=== PATIENT | male | born 1945 | race Caucasian/White ===

== ENCOUNTER 2022-12-26 10:58 | Outpatient (OUT) | payer MEDICARE, SELFPAY ==
--- NOTE | 2022-12-26 11:33 | P.CN_ITS ---
Consult Note: HPI Data of Consult Patient: known to practice within the last 3 years Consult date: 12/26/22 Requesting Physician: MANAV GARY NP Primary Care Provider: GARY CUENCA Consult Narrative Reason for consult: left hip Narrative: Here for f/u left hip injection done 12/16/22. He had 90% relief of pain and increased fx continued through today. No new sensorimotor or bowel or bladder sx. Medication regimen is assisting him to be able to complete his ADLs. We discussed ability to repeat procedure as needed. Lumbar pain is doing stable. He is getting ABIs done through PCP coming up to check leg circulation. No medication issues. He does walk with cane and feels that he is walking better. cc:: CC: MANAV GARY NP Review of Systems ROS Status of ROS 10 or more systems reviewed and unremarkable except as noted in history and below Musculoskeletal Reports: back pain and extremity pain Exam Constitutional Documenting provider has reviewed patient's vital signs: yes Common normals: no apparent distress, average body habitus, oriented x3, healthy appearing, alert and well nourished General appearance: cooperative, comfortable and well developed Orientation/consciousness: Yes awake, Yes oriented to person, Yes oriented to place and Yes oriented to time HENMT Common normals: normocephalic, nasal mucous membranes and turbinates normal and moist oral mucous membranes Respiratory Common normals: normal respiratory effort, no retractions and no use of acc essory muscles Effort & inspection: able to speak in complete sentences and symmetric chest movement Back & Pelvis Lumbar spine/lower back: normal to inspection, ROM limited, paraspinal muscle tenderness, paraspinal muscle spasm and straight leg raise negative bilaterally Extremity Common normals: normal capillary refill and no pedal edema Left lower extremity: hip joint Other: pain with hip ROM and walking. sensation intact bilat LE Assessment and Plan Assessment and Plan (1) Knee osteoarthritis: (2) Muscle spasm: (3) Lumbar spondylosis: (4) Osteoarthritis, hip, bilateral: Plan baclofen refill f/u in 6 months or sooner if needed.
== END 2022-12-26 10:59 ==
PROVIDERS: PCP Internal Medicine; Visit Provider Nurse Practitioner
DX: M47.816 Spondylosis without myelopathy or radiculopathy, lumbar region (principal); M62.830 Muscle spasm of back; M17.9 Osteoarthritis of knee, unspecified; M16.0 Bilateral primary osteoarthritis of hip
CPT/HCPCS: G0463

== ENCOUNTER 2023-01-13 12:25 | Outpatient (OUT) | payer MEDICARE, SELFPAY ==
--- NOTE | 2023-01-13 13:00 | CA_ITS ---
The [facility] Test Date: 2023-01-13 Pat Name: Rufus Yee Department: Room: - Gender: Male Insurance Verification Rep: : 1945 Requested By: PAGE Order Number: [id number] Reading MD: GARY CUENCA Interpretive Statements Monophasic doppler waveforms of the RLE PVR waveforms with delayed upstroke, blunted amplitude and loss of dicrotic notch of the RLE Right: - significant pressure gradient between the thigh and calf cuff - abnormal JAMIR - normal TBI Left: - no significant pressure gradients between cuffs - normal JAMIR - normal TBI IMpression: - elevated indices (B/L thigh) consistent with calcified, noncompressible arterial molina, which may underestimate the degree of arterial disease present - significant right femoropopliteal arterial disease with moderate-severe hemodynamic impairment of the right lower extremity at rest (JAMIR 0.55) - normal arterial evaluation of the left lower extremity without hemodynamic impairment of the left lower extremity at rest (JAMIR 1.12) Electronically Signed On 01-14-2023 7:13:14 EDT by GARY CUENCA
== END 2023-01-13 12:26 | disposition home or self-care (01) ==
LOC: CARD 12:26
PROVIDERS: PCP Internal Medicine
DX: I73.9 Peripheral vascular disease, unspecified (principal)
CPT/HCPCS: 93923

== ENCOUNTER 2023-01-15 11:20 | Outpatient (OUT) | payer MEDICARE, SELFPAY ==
[2023-01-15 13:28] LABS: Estimated Average Glucose 177 mg/dL; Glycohemoglobin A1C 7.8 % (4.5-6.2)
== END 2023-01-15 11:21 | disposition home or self-care (01) ==
LOC: LAB 11:23
PROVIDERS: PCP Internal Medicine; Visit Provider Internal Medicine
DX: E11.65 Type 2 diabetes mellitus with hyperglycemia (principal)
CPT/HCPCS: 36415; 83036

== ENCOUNTER 2023-05-03 15:39 | Emergency (ER) | payer MEDICARE, SELFPAY ==
[2023-05-03] VITALS (15 sets, daily range): BP systolic 148–201; BP diastolic 77–93; PULSE 56–68; RESP 17–22; TEMP 36.6; O2SAT 98; BMI 39.2
[2023-05-03 15:52] LABS: Glucometer 204 mg/dL (74-106)
--- NOTE | 2023-05-03 16:03 | PC.NURSE ---
pt presents to ED because patient states last night he started having n/v and his neck felt stiff. patient states whenever he moves his head from left to right he feels nauseas. patient states today he has thrown up 4 times. no associated abdominal pain. pt concerned because he is a type 2 diabetic and hasn't eaten anything today. bs- 204 on arrival. patient states bowel movements are normal for patient. patient states he was at a yesterday and did eat a lot of bad foods and unsure if it is related.
--- NOTE | 2023-05-03 16:07 | CT_ITS ---
The [address] [address] Patient Name: LIZZY BURK MRN: [id number] date: 1945 Sex: M Assigned Patient Location: ER Current Patient Location: [facility] Accession/Order Number: [id number] Exam Date: 05/03/2023 16:15 Report Date: 05/05/2023 10:50 At the request of: PEARL MCDONALD Procedure: CT head/brain wo con EXAMINATION: CT head/brain wo con HISTORY: dizziness COMPARISON: None. TECHNIQUE: Unenhanced helical imaging was acquired from skull base to vertex. Multiplanar images are submitted. Dose reduction techniques were achieved by using: automated exposure control and/or adjustment of mA and /or kV according to patient size and/or use of iterative reconstruction technique. FINDINGS: There is no acute intraaxial or extraaxial mass, shift, or bleed. Bravo-white junctions are well defined. The ventricles and sulci are age-appropriate. The pituitary and sella turcica are normal. The orbit and ocular contents are normal. The paranasal sinuses are clear. Calvarium is intact. CT/CT head/brain wo con IMPRESSION: 1. No acute intracranial event. 2. Prominent impacted cerumen within the bilateral auditory canals (left greater than right). Correlation with otoscopic exam will be of benefit. Otherwise, clear sinuses. Electronically authenticated by: TIFFANY MCADAMS Date: 05/05/2023 10:50
--- NOTE | 2023-05-03 16:08 | ECG_ITS ---
The [facility] Test Date: 2023-05-03 Pat Name: LIZZY BURK Department: Room: - Gender: Male Veneer Sorter: : 1945 Requested By: GARY CUENCA Order Number: [id number] Reading MD: GARY CUENCA Measurements Intervals [place] Rate: 62 P: -30 NH: 138 QRS: 18 QRSD: 80 T: 21 QT: 398 QTc: 403 Interpretive Statements 1100 Sinus rhythm 1570 with occasional ventricular premature complexes 4068 Nonspecific Twave abnormality 8102 Low QRS voltage in chest leads 9140 abnormal rhythm ECG No previous ECG available for comparison Electronically Signed On 05-04-2023 7:01:18 EDT by GARY CUENCA
--- NOTE | 2023-05-03 16:10 | ED.GENADUL1 ---
HPI - General Adult General Chief complaint: Nausea/Vomiting/Diarrhea Stated complaint: FLU LIKE SYMPTOMS Time Seen by Provider: 05/03/23 16:04 Source: patient Mode of arrival: walk-in Limitations: no limitations History of Present Illness HPI narrative: 77-year-old male presents with chief complaint nausea vomiting dizziness. He states his symptoms began last evening. He felt better today and try to take medications and became nauseous and vomited. He does have a history of vertigo. He hasn't had no chest pain or headache. He states he is unable to take his morning medications causing his sugar to be elevated as well as his blood pressure. Patient is alert and oriented ?3. He shows no signs of neurological deficits. He has no focal weakness. Related Data Home Medications Medication Instructions Recorded Confirmed aspirin 81 mg tablet,delayed 81 mg PO DAILY 12/26/22 05/03/23 release (Adult Aspirin Regimen) atorvastatin 80 mg tablet 80 mg PO DAILY 12/26/22 05/03/23 baclofen 10 mg tablet 10 mg PO .HS 12/26/22 05/03/23 calcium carbonate 500 mg-vitamin 1 tab PO DAILY 12/26/22 05/03/23 D3 10 mcg (400 unit) tablet carvedilol 25 mg tablet 12.5 mg PO Q12H 12/26/22 05/03/23 cholecalciferol (vitamin D3) 50 2,000 unit PO DAILY 12/26/22 05/03/23 mcg (2,000 unit) tablet cinnamon bark 500 mg capsule 1,000 mg PO DAILY 12/26/22 05/03/23 (Cinnamon) clopidogrel 75 mg tablet 75 mg PO DAILY 12/26/22 05/03/23 famotidine 20 mg tablet 20 mg PO DAILY 12/26/22 12/26/22 glipizide 5 mg tablet 5 mg PO DAILY 12/26/22 05/03/23 hydrochlorothiazide 25 mg tablet 25 mg PO DAILY 12/26/22 05/03/23 lisinopril 20 mg tablet 10 mg PO DAILY 12/26/22 05/03/23 loratadine 10 mg tablet 10 mg PO DAILY 12/26/22 05/03/23 metformin 1,000 mg tablet 1,000 mg PO BID 12/26/22 05/03/23 metoprolol tartrate 25 mg tablet 25 mg PO BID 12/26/22 12/26/22 multivitamin 1 tab PO DAILY 12/26/22 05/03/23 omega-3 fatty acids 1,000 mg 1,000 mg PO DAILY 12/26/22 05/03/23 capsule pantoprazole 40 mg tablet,delayed 40 mg PO QAM 12/26/22 05/03/23 release sertraline 100 mg tablet 100 mg PO .HS 12/26/22 05/03/23 vitamin B complex 1 tab PO DAILY 12/26/22 12/26/22 zinc acetate 50 mg (zinc) capsule 50 mg PO DAILY 12/26/22 05/03/23 Previous Rx's Medication Instructions Recorded meclizine 50 mg tablet (Antivert) 50 mg PO BID PRN dizziness #10 tabs 05/03/23 ondansetron 4 mg disintegrating 4 mg PO Q8H PRN nausea and 05/03/23 tablet vomiting 4 days #10 tabs Allergies Allergy/AdvReac Type Severity Reaction Status Date / Time No Known Drug Allergies Allergy Verified 12/26/22 13:53 Review of Systems ROS Narrative All Systems are negative except as noted/marked.All systems reviewed and otherwise negative Exam Narrative Exam Narrative: Nurses note and vital signs reviewed and patient is not hypoxic. General: The patient appears well and in no apparent distress. Patient is resting comfortably on cart. Skin: Warm, dry, no pallor noted. There is no rash noted. Head: Normocephalic, atraumatic Eye: Normal conjunctiva, no drainage, EOMI. PERRL, no nystagmus Ears, Nose, Mouth, and Throat: oral mucosa is moist. Nares patent. Mouth without vesicles. bilateral canals noted to have cerumen Cardiovascular: Regular Rate and Rhythm Respiratory: Patient is in no distress, no accessory muscle use, lungs are clear to auscultation, no wheezing, rales or rhonchi Back: non-tender, no CVA tenderness bilaterally to percussion. GI: Normal bowel sounds, no tenderness to palpation, no masses appreciated. No rebound, guarding, or rigidity noted. Musculoskeletal: The patient has no evidence of calf tenderness, no pitting edema, symmetrical pulses noted bilaterally Neurological: A&O x3, normal speech,NIH O Psychiatric: Cooperative Constitutional Vital Signs, click to edit/add: Last Vital Signs Temp 97.8 F 05/03/23 15:42 Pulse 60 05/03/23 16:40 Resp 17 05/03/23 16:40 BP 184/78 H 05/03/23 17:11 Pulse Ox 98 05/03/23 15:42 O2 Del Method Room Air 05/03/23 15:42 Neuro Common normals: oriented x3 Coordination/balance: [id number] test normal and ysmd-ce-ddep test normal Speech: speech normal Gait (neuro): normal gait Motor exam: strength 5/5 throughout Coordination: [id number]-kw-ktdm test normal Course Vital Signs Vital signs: Vital Signs Temperature 97.8 F 05/03/23 15:42 Pulse Rate 63 05/03/23 15:42 Respiratory Rate 22 05/03/23 15:42 Blood Pressure 179/79 H 05/03/23 15:42 Pulse Oximetry 98 05/03/23 15:42 Oxygen Delivery Method Room Air 05/03/23 15:42 Temperature 97.8 F 05/03/23 15:42 Pulse Rate 60 05/03/23 16:40 Respiratory Rate 17 05/03/23 16:40 Blood Pressure 184/78 H 05/03/23 17:11 Pulse Oximetry 98 05/03/23 15:42 Oxygen Delivery Method Room Air 05/03/23 15:42 Medical Decision Making MDM Narrative Medical decision making narrative: Patient presented here with a chief complaint of nausea vomiting and dizziness. Symptoms began late last evening. He states that continue today when he tried to get up morning and take pills. States he unable to take his morning medication due to vomiting and dizziness. Arrival vital signs are stable patient had no acute neurological deficits. No nystagmus. Head CT read negative by radiology. She does have a history of vertigo. Patient was medicated here in emergency room liter fluids Zofran and Benadryl. Symptoms have improved. He does have cerumen noted to bilateral ears. He has a follow-up appointment with ENT in the next week. Patient told to buy rneu-mby-jwgygga debrox CBC BMP troponin and EKG were all within normal limits. Patient stable discharged to home. Patient was able to tolerate pills here in emergency room. She'll be discharged home prescription of Zofran and Antivert. Differential Diagnosis Differential Diagnosis: Vertigo, head injury, CVA, transient ischemic attack Medical Records Medical records reviewed: Yes I reviewed the patient's medical records Lab Data Lab results reviewed: Yes I reviewed the patient's lab results Labs: Lab Results 05/03/23 05/03/23 05/03/23 Range/Units 15:03 15:15 15:51 WBC 8.6 (4.0-11.0) 10^3/uL RBC 3.87 L (4.70-6.10) 10^6/uL Hgb 12.1 L (14.0-18.0) g/dL Hct 36.9 L (42.0-54.0) % MCV 95.3 H (80.0-94.0) fL MCH 31.3 (25.9-34.0) pg MCHC 32.8 (29.9-35.2) g/dL RDW 13.3 (11.0-15.0) % Plt Count 172 (150-450) 10^3/uL MPV 10.5 (9.5-13.5) fL Neut % (Auto) 74.4 (43.0-75.0) % Lymph % (Auto) 16.1 L (20.5-60.0) % [place] % (Auto) 7.3 (1.7-12.0) % Eos % (Auto) 1.6 (0.9-7.0) % Baso % (Auto) 0.3 (0.2-2.0) % Neut # (Auto) 6.4 (1.4-6.5) 10^3/uL Lymph # (Auto) 1.4 (1.2-3.8) 10^3/uL [place] # (Auto) 0.6 (0.3-0.8) 10^3/uL Eos # (Auto) 0.1 (0.0-0.7) 10^3/uL Baso # (Auto) 0.0 (0.0-0.1) 10^3/uL Abs Immat Gran (auto) 0.03 (0.00-0.03) 10^3/uL Imm/Tot Granulo (auto) 0.3 (0.0-0.5) % Sodium 135 L (136-145) mmol/L Potassium 4.4 (3.5-5.1) mmol/L Chloride 103 (98-107) mmol/L Carbon Dioxide 21.6 (21.0-32.0) mmol/L Anion Gap 14.8 BUN 21.0 H (7.0-18.0) mg/dL Creatinine 1.33 H (0.70-1.30) mg/dL Est GFR ( Amer) >60 (>=60) Est GFR (Non-Af Amer) 52 L (>=60) BUN/Creatinine Ratio 15.8 Glucose 216 H (74-106) mg/dL Calcium 9.3 (8.5-10.1) mg/dL Total Bilirubin 0.7 (0.2-1.0) mg/dL AST 18 (15-37) U/L ALT 21 (16-63) U/L Alkaline Phosphatase 100 (46-116) U/L Troponin I High Sens 18.1 (4.0-76.1) pg/mL Total Protein 7.2 (6.4-8.2) g/dL Albumin 3.5 (3.4-5.0) g/dL Globulin 3.7 g/dL Albumin/Globulin Ratio 0.9 Amylase 48 (25-115) U/L Urine Color Lt. yellow (YELLOW) Urine Clarity Clear (CLEAR) Urine pH 5.0 (5.0-9.0) Ur Specific [place] >=1.030 A (1.005-1.025) Urine Protein Negative (NEG/TRACE) mg/dL Urine Glucose (UA) 100 A (NEGATIVE) mg/dL Urine Ketones Negative (NEGATIVE) mg/dL Urine Occult Blood Trace-i (NEGATIVE) Urine Nitrite Negative (NEGATIVE) Urine Bilirubin Negative (NEGATIVE) Urine Urobilinogen 0.2 (0.2-1.0) EU/dL Ur Leukocyte Esterase Negative (NEGATIVE) Urine RBC 0-2 (0-2) #/HPF Urine WBC 0-2 A (NONE SEEN) #/HPF Ur Squamous Epith Cells Few A (NONE/RARE) #/LPF Urine Crystals None seen (None Seen) #/HPF Urine Bacteria Trace A (NONE SEEN) #/HPF Urine Casts Seen A (NONE SEEN) #/LPF Hyaline Casts Rare Urine Mucus Trace A (NONE SEEN) Ur Culture Indicated? No POC Glucose 204 H (74-106) mg/dL Imaging Data CT scan - head: Radiologist's impression: Radiologist's impression shows no acute bleed, cerumen impaction noted ECG Data Interpretation: 1629 Doses rhythm with a rate of 62 bpm irritable hurt 38 ms QRS duration 80 ms occasional PVC, no STEMI Discharge Plan Discharge Chief Complaint: Nausea/Vomiting/Diarrhea Clinical Impression: Dizziness, Nausea & vomiting, Cerumen impaction Patient Disposition: Home, Self-Care Time of Disposition Decision: 17:20 Condition: Good Prescriptions / Home Meds: New ondansetron 4 mg tablet,disintegrating 4 mg PO Q8H PRN (Reason: nausea and vomiting) 4 Days Qty: 10 0RF meclizine [Antivert] 50 mg tablet 50 mg PO BID PRN (Reason: dizziness) Qty: 10 0RF No Action aspirin [Adult Aspirin Regimen] 81 mg tablet,delayed release (DR/EC) 81 mg PO DAILY baclofen 10 mg tablet 10 mg PO .HS clopidogrel 75 mg tablet 75 mg PO DAILY famotidine 20 mg tablet 20 mg PO DAILY lisinopril 20 mg tablet 10 mg PO DAILY loratadine 10 mg tablet 10 mg PO DAILY cholecalciferol (vitamin D3) 50 mcg (2,000 unit) tablet 2,000 unit PO DAILY metoprolol tartrate 25 mg tablet 25 mg PO BID multivitamin Tablet 1 tab PO DAILY zinc acetate 50 mg (zinc) capsule 50 mg PO DAILY atorvastatin 80 mg tablet 80 mg PO DAILY vitamin B complex Tablet 1 tab PO DAILY calcium carbonate-vitamin D3 500 mg-10 mcg (400 unit) tablet 1 tab PO DAILY carvedilol 25 mg tablet 12.5 mg PO Q12H Rx Instructions: must administer with a meal/food cinnamon bark [Cinnamon] 500 mg capsule 1,000 mg PO DAILY glipizide 5 mg tablet 5 mg PO DAILY hydrochlorothiazide 25 mg tablet 25 mg PO DAILY metformin 1,000 mg tablet 1,000 mg PO BID omega-3 fatty acids 1,000 mg capsule 1,000 mg PO DAILY pantoprazole 40 mg tablet,delayed release (DR/EC) 40 mg PO QAM sertraline 100 mg tablet 100 mg PO .HS Instructions: Carbamide Peroxide (Into the ear) (Freight Shipping Agent's Choice, Debrox,..., Vertigo (ED), Acute Nausea and Vomiting (ED), Dizziness (ED) Stand Alone Forms: Portal Instructions Referrals: Juancarlos Gan DO [Primary Care Provider] - 1 week
[2023-05-03 16:15] LABS: Basophils Percent Auto 0.3 % (0.2-2.0); Eosinophils Absolute Auto 0.1 10^3/uL (0.0-0.7); Eosinophils Percent Auto 1.6 % (0.9-7.0); Hematocrit 36.9 % (42.0-54.0); Hemoglobin 12.1 g/dL (14.0-18.0); Immature Granulocytes Abs Auto 0.03 10^3/uL (0.00-0.03); Immature Granulocytes Pct Auto 0.3 % (0.0-0.5); Lymphocytes Absolute Auto 1.4 10^3/uL (1.2-3.8); Lymphocytes Percent Auto 16.1 % (20.5-60.0); Mean Corpuscular HGB Conc 32.8 g/dL (29.9-35.2); Mean Corpuscular Hemoglobin 31.3 pg (25.9-34.0); Mean Corpuscular Volume 95.3 fL (80.0-94.0); Mean Platelet Volume 10.5 fL (9.5-13.5); Monocytes Absolute Auto 0.6 10^3/uL (0.3-0.8); Monocytes Percent Auto 7.3 % (1.7-12.0); Neutrophils Absolute Auto 6.4 10^3/uL (1.4-6.5); Neutrophils Percent Auto 74.4 % (43.0-75.0); Platelet Count 172 10^3/uL (150-450); Red Blood Count 3.87 10^6/uL (4.70-6.10); Red Cell Distribution Width 13.3 % (11.0-15.0); White Blood Count 8.6 10^3/uL (4.0-11.0)
[2023-05-03] MEDS: 0.9 % SODIUM CHLORIDE 1,000 ML 1000 ML IV (16:26)
[2023-05-03] MEDS: ONDANSETRON PF 4 MG/2 ML VIAL IV (16:27)
[2023-05-03 16:33] LABS: Alanine Aminotransferase 21 U/L (16-63); Albumin Globulin Ratio 0.9; Albumin Level 3.5 g/dL (3.4-5.0); Alkaline Phosphatase 100 U/L (46-116); Amylase 48 U/L (25-115); Anion Gap 14.8; Aspartate Amino Transferase 18 U/L (15-37); BUN Creatinine Ratio 15.8; Bilirubin Total 0.7 mg/dL (0.2-1.0); Calcium 9.3 mg/dL (8.5-10.1); Carbon Dioxide 21.6 mmol/L (21.0-32.0); Chloride 103 mmol/L (98-107); Estimated GFR (African America >60 (>=60); Estimated GFR (Non-African Ame 52 (>=60); Globulin 3.7 g/dL; Glucose 216 mg/dL (74-106); Potassium 4.4 mmol/L (3.5-5.1); Sodium 135 mmol/L (136-145); Total Protein 7.2 g/dL (6.4-8.2)
[2023-05-03 16:36] LABS: Troponin I High Sensitivity 18.1 pg/mL (4.0-76.1)
[2023-05-03] MEDS: DIPHENHYDRAMINE HCL 50 MG/ML (1ML) VIAL 12.5 MG IV (17:09)
[2023-05-03 17:10] LABS: Bilirubin Urine NEGATIVE (NEGATIVE); Blood Urine TRACE-I (NEGATIVE); Clarity Urine CLEAR (CLEAR); Color Urine LT. YELLOW (YELLOW); Glucose Urine UA 100 mg/dL (NEGATIVE); Ketones Urine NEGATIVE (NEGATIVE); Leukocyte Esterase Urine NEGATIVE (NEGATIVE); Nitrite Urine NEGATIVE (NEGATIVE); Protein Urine NEGATIVE (NEG/TRACE); Specific Gravity Urine >=1.030 (1.005-1.025); Urobilinogen Urine 0.2 EU/dL (0.2-1.0)
[2023-05-03 17:25] LABS: WBC Urine 0-2 #/HPF (NONE SEEN)
[2023-05-03 17:26] LABS: Bacteria Urine TRACE #/HPF (NONE SEEN); Cast Seen? SEEN #/LPF (NONE SEEN); Crystals Seen? None Seen #/HPF (None Seen); Hyaline Casts Urine RARE; Mucus Urine TRACE (NONE SEEN); RBC Urine 0-2 #/HPF (0-2); Squamous Epithelial Cell Urine FEW #/LPF (NONE/RARE); Urine Culture Indicated NO
[2023-05-03] MEDS: MECLIZINE HCL 12.5 MG TABLET 25 MG PO (17:59)
== END 2023-05-03 18:09 | disposition home or self-care (01) ==
PROVIDERS: Physician Assistant; Emergency Provider Emergency Medicine; PCP Internal Medicine
DX: R11.2 Nausea with vomiting, unspecified (principal); R42 Dizziness and giddiness; H61.23 Impacted cerumen, bilateral; Z79.82 Long term (current) use of aspirin; Z79.899 Other long term (current) drug therapy; Z79.84 Long term (current) use of oral hypoglycemic drugs
CPT/HCPCS: 36415; 70450; 80053; 81001; 82150; 84484; 85025; 93005; 96361; 96374; 96375; 99285

== ENCOUNTER 2023-05-11 13:23 | Outpatient (OUT) | payer MEDICARE, SELFPAY ==
--- NOTE | 2023-05-11 13:25 | CA_ITS ---
The [facility] Test Date: 2023-05-11 Pat Name: LIZZY BURK Department: Room: - Gender: Male Manager Procurement: Zaina George : 1945 Requested By: MADELEINE SCOTT Order Number: [id number] Reading MD: GARY CUENCA Interpretive Statements Monophasice doppler waveforms of the RLE PVR waveforms with delayed upstroke, blunted amplitude and loss of dicrotic notch in the RLE Right: - significant pressure gradient between the calf and DP cuff - abnormal JAMIR, normal TBI Left: - significant pressure gradient between the calf and DP cuff - normal JAMIR and TBI IMpression: - elevated indices (right thigh, B/L calf) consistent with calcified, noncompressible arterial molina, which may underestimate the degree of arterial disease present - significant right outflow (tibioperoneal) arterial disease with mild hemodynamic impairment of the right lower extremity at rest (right JAMIR 0.94) - normal arterial evaluation of the left lower extremity without hemodynamic impairment of the left lower extremity at rest (left JAMIR 1.12) Electronically Signed On 05-12-2023 7:23:23 EDT by GARY CUENCA
== END 2023-05-11 13:24 | disposition home or self-care (01) ==
LOC: CARD 13:23
PROVIDERS: PCP Internal Medicine
DX: I73.9 Peripheral vascular disease, unspecified (principal)
CPT/HCPCS: 93923

== ENCOUNTER 2023-06-05 17:49 | Emergency (ER) | payer MEDICARE, SELFPAY ==
[2023-06-05 17:51] VITALS: BP 157/89; PULSE 86; RESP 18; TEMP 36.4; O2SAT 95; BMI 38.0
--- NOTE | 2023-06-05 18:05 | CT_ITS ---
The [address] [address] Patient Name: LIZZY BURK MRN: [id number] date: 1945 Sex: M Assigned Patient Location: ER Current Patient Location: ER Accession/Order Number: [id number] Exam Date: 06/05/2023 18:43 Report Date: 06/05/2023 19:58 At the request of: GABBI ROLAND Procedure: CT abdomen pelvis w con EXAMINATION: CT abdomen pelvis w con, 06/05/2023 3:43 PM PST HISTORY: vomiting and diarrhea COMPARISON: CT abdomen and pelvis 02/13/2021 TECHNIQUE: CT scan of the abdomen and pelvis was performed with IV contrast. CT dose reduction technique was used, including Automated Exposure Control. FINDINGS: Lung: Mild basilar atelectasis. Heavy coronary calcification. Calcified right lung nodule and subcarinal lymph node. Median sternotomy wires. Liver: No significant finding. Gallbladder: Nondistended gallbladder with mild wall thickening. Spleen: Calcified granuloma. Pancreas: No significant finding. Adrenal glands: No significant finding. Kidneys, ureters and bladder: Circumferential bladder wall thickening. No hydronephrosis. Bowel: Surgical changes from partial colectomy. Anastomosis noted. No evidence of bowel obstruction. Mild distention of the proximal small bowel and stomach. Peritoneum/retroperitoneum: No significant finding. Lymph nodes: No significant finding. Vessels: No significant finding. Body wall: Surgical changes. Reproductive: No significant finding. Bones: Right hip arthroplasty. CT/CT abdomen pelvis w con IMPRESSION: Mild distention of the stomach and proximal small bowel. Suggestive of gastroenteritis. Mild gallbladder wall thickening without evidence of gallstones or distention. Potentially adenomyomatosis. Consider right upper quadrant ultrasound. Bladder wall thickening, correlate for cystitis. Electronically authenticated by: RIGOBERTO PAUL Date: 06/05/2023 19:58
--- NOTE | 2023-06-05 18:07 | ED_ITS ---
Documented by User: SARA Owens 06/05/23 21:32 HPI - Nausea/Vomiting/Diarrhea General Chief complaint: Nausea/Vomiting/Diarrhea Stated complaint: Vomiting Time Seen by Provider: 06/05/23 17:56 Source: patient Mode of arrival: walk-in Limitations: no limitations History of Present Illness HPI Narrative: patient is a 77-year-old male who presents to the emergency department for the evaluation of nausea, vomiting and an increase in loose stools. Patient states he has chronic diarrhea, though this seems worse today. He has had no blood in his stool. No objective fevers. He states he had two episodes of emesis last night but had a return of the vomiting and diarrhea two hours ago. His is at bedside, she provides some history. She states he was seen by his PCP today and his diabetic meds were changed. She is concerned that his symptoms today are due to his blood sugar. Patient denies abdominal pain, no urinary symptoms. No sick contacts in the home. Related Data Home Medications Medication Instructions Recorded Confirmed aspirin 81 mg tablet,delayed 81 mg PO DAILY 12/26/22 06/05/23 release (Adult Aspirin Regimen) atorvastatin 80 mg tablet 80 mg PO DAILY 12/26/22 06/05/23 calcium carbonate 500 mg-vitamin 1 tab PO DAILY 12/26/22 06/05/23 D3 10 mcg (400 unit) tablet carvedilol 25 mg tablet 12.5 mg PO Q12H 12/26/22 06/05/23 cholecalciferol (vitamin D3) 50 2,000 unit PO DAILY 12/26/22 06/05/23 mcg (2,000 unit) tablet cinnamon bark 500 mg capsule 1,000 mg PO DAILY 12/26/22 06/05/23 (Cinnamon) clopidogrel 75 mg tablet 75 mg PO DAILY 12/26/22 06/05/23 glipizide 5 mg tablet 10 mg PO DAILY 12/26/22 06/05/23 hydrochlorothiazide 25 mg tablet 25 mg PO DAILY 12/26/22 06/05/23 lisinopril 20 mg tablet 30 mg PO DAILY 12/26/22 06/05/23 metformin 1,000 mg tablet 500 mg PO QAM 12/26/22 06/05/23 metoprolol tartrate 25 mg tablet 25 mg PO BID 12/26/22 12/26/22 multivitamin 1 tab PO DAILY 12/26/22 06/05/23 omega-3 fatty acids 1,000 mg 1,000 mg PO DAILY 12/26/22 06/05/23 capsule pantoprazole 40 mg tablet,delayed 40 mg PO QAM 12/26/22 06/05/23 release vitamin B complex 1 tab PO DAILY 12/26/22 12/26/22 zinc acetate 50 mg (zinc) capsule 50 mg PO DAILY 12/26/22 05/03/23 amlodipine 5 mg tablet 5 mg PO QDAY 06/05/23 06/05/23 Previous Rx's Medication Instructions Recorded ondansetron 4 mg disintegrating 4 mg PO Q8H PRN nausea and 05/03/23 tablet vomiting 4 days #10 tabs hyoscyamine sulfate 0.125 mg 0.125 mg PO Q6H PRN abdominal pain 06/05/23 tablet (Levsin) #12 tabs ondansetron 4 mg disintegrating 4 mg PO Q6H PRN nausea and 06/05/23 tablet vomiting #12 tabs Allergies Allergy/AdvReac Type Severity Reaction Status Date / Time No Known Drug Allergies Allergy Verified 12/26/22 13:53 Review of Systems ROS Constitutional Denies: fever or chills Ears, nose, mouth, and throat Denies: throat pain or nasal congestion Cardiovascular Denies: chest pain Respiratory Denies: shortness of breath Gastrointestinal Reports: nausea, vomiting and diarrhea; Denies: abdominal pain Genitourinary Denies: painful urination Musculoskeletal Denies: back pain Integumentary/Breast Denies: rash Neurological Denies: headache Exam Narrative Exam Narrative: Gen.: Awake, alert, in no distress Head: Normocephalic, atraumatic ENT: Moist mucous membranes Respiratory: No respiratory distress, lungs clear bilaterally Cardio: Regular rate and rhythm Gastrointestinal: Abdomen is soft, nondistended and nontender to palpation Extremities: Moves extremities equally Psych: Normal mood and affect Neuro: No focal neuro deficit Skin: Warm, dry, intact Constitutional Vital Signs, click to edit/add: Last Vital Signs Temp 98 F 06/05/23 21:24 Pulse 78 06/05/23 21:24 Resp 14 06/05/23 21:24 BP 129/74 06/05/23 21:24 Pulse Ox 98 06/05/23 21:24 O2 Del Method Room Air 06/05/23 17:51 Course Vital Signs Vital signs: Vital Signs Temperature 97.6 F 06/05/23 17:51 Pulse Rate 86 06/05/23 17:51 Respiratory Rate 18 06/05/23 17:51 Blood Pressure 157/89 H 06/05/23 17:51 Pulse Oximetry 95 06/05/23 17:51 Oxygen Delivery Method Room Air 06/05/23 17:51 Temperature 98 F 06/05/23 21:24 Pulse Rate 78 06/05/23 21:24 Respiratory Rate 14 06/05/23 21:24 Blood Pressure 129/74 06/05/23 21:24 Pulse Oximetry 98 06/05/23 21:24 Oxygen Delivery Method Room Air 06/05/23 17:51 MDM - Nausea/Vomiting/Diarrhea MDM Narrative Medical decision making narrative: 2130: patient medicated with IV fluids, Zofran, Pepcid with improvement. He had no episodes of emesis in the emergency department. He did provide a urine specimen which is unremarkable, he did not have any episodes of diarrhea. CT of the abdomen and pelvis shows gastroenteritis, possible thickening of the bladder although he has no evidence of urinary tract infection on urine specimen. There is also mild gallbladder wall thickening with no evidence of gallstones. Right upper quadrant ultrasound was suggested by the radiologist, this was performed in the Emergency Room. Patient's was concerned that he may have aspirated when he vomited in the car earlier, a chest x-ray was performed showing no evidence of aspiration pneumonia. Patient has stable vital signs in the emergency department, abdomen is soft and benign. case is turned over to attending physician pending ultrasound result. Medical Records Attestation: I reviewed the patient's medical records. Lab Data Attestation: I reviewed the patient's lab results. Labs: Lab Results 06/05/23 06/05/23 06/05/23 Range/Units 18:10 19:46 20:20 WBC 16.3 H (4.0-11.0) 10^3/uL RBC 4.56 L (4.70-6.10) 10^6/uL Hgb 14.0 (14.0-18.0) g/dL Hct 41.4 L (42.0-54.0) % MCV 90.8 (80.0-94.0) fL MCH 30.7 (25.9-34.0) pg MCHC 33.8 (29.9-35.2) g/dL RDW 12.8 (11.0-15.0) % Plt Count 216 (150-450) 10^3/uL MPV 10.8 (9.5-13.5) fL Neut % (Auto) 86.5 H (43.0-75.0) % Lymph % (Auto) 5.8 L (20.5-60.0) % Grainger % (Auto) 6.4 (1.7-12.0) % Eos % (Auto) 0.7 L (0.9-7.0) % Baso % (Auto) 0.2 (0.2-2.0) % Neut # (Auto) 14.1 H (1.4-6.5) 10^3/uL Lymph # (Auto) 1.0 L (1.2-3.8) 10^3/uL Grainger # (Auto) 1.1 H (0.3-0.8) 10^3/uL Eos # (Auto) 0.1 (0.0-0.7) 10^3/uL Baso # (Auto) 0.0 (0.0-0.1) 10^3/uL Abs Immat Gran (auto) 0.06 H (0.00-0.03) 10^3/uL Imm/Tot Granulo (auto) 0.4 (0.0-0.5) % Sodium 135 L (136-145) mmol/L Potassium 4.3 (3.5-5.1) mmol/L Chloride 97 L (98-107) mmol/L Carbon Dioxide 23.3 (21.0-32.0) mmol/L Anion Gap 19.0 BUN 25.0 H (7.0-18.0) mg/dL Creatinine 1.86 H (0.70-1.30) mg/dL Est GFR ( Amer) 43 L (>=60) Est GFR (Non-Af Amer) 35 L (>=60) BUN/Creatinine Ratio 13.4 Glucose 294 H (74-106) mg/dL Lactate 2.6 H* 2.0 (0.4-2.0) mmol/L Calcium 9.7 (8.5-10.1) mg/dL Total Bilirubin 0.8 (0.2-1.0) mg/dL AST 24 (15-37) U/L ALT 33 (16-63) U/L Alkaline Phosphatase 124 H (46-116) U/L Total Protein 8.0 (6.4-8.2) g/dL Albumin 3.9 (3.4-5.0) g/dL Globulin 4.1 g/dL Albumin/Globulin Ratio 1.0 Lipase 15.0 L (16.0-77.0) U/L Urine Color Yellow (YELLOW) Urine Clarity Clear (CLEAR) Urine pH 5.0 (5.0-9.0) Ur Specific Benton 1.010 (1.005-1.025) Urine Protein Negative (NEG/TRACE) mg/dL Urine Glucose (UA) 250 A (NEGATIVE) mg/dL Urine Ketones Negative (NEGATIVE) mg/dL Urine Occult Blood Negative (NEGATIVE) Urine Nitrite Negative (NEGATIVE) Urine Bilirubin Negative (NEGATIVE) Urine Urobilinogen 0.2 (0.2-1.0) EU/dL Ur Leukocyte Esterase Negative (NEGATIVE) Stl C. cayetanensis PCR (NOT DETECTE) Stool Rotavirus (PCR) (NOT DETECTE) Stool Adenovirus (PCR) (NOT DETECTE) Stool Astrovirus (PCR) (NOT DETECTE) Stool Campylobacter PCR (NOT DETECTE) Stool Cryptosporidium PCR (NOT DETECTE) St Sh/Enteroin Ecoli PCR (NOT DETECTE) Stl Enterotoxigenic E PCR (NOT DETECTE) Stool EPEC (PCR) (NOT DETECTE) Stl E. histolytica PCR (NOT DETECTE) Stool Giardia Lamblia PCR (NOT DETECTE) Stl P. shigelloides PCR (NOT DETECTE) Stool Salmonella PCR (NOT DETECTE) Stool Sapovirus (PCR) (NOT DETECTE) Stl Shiga-like Tx 1 PCR (NOT DETECTE) St Y.enterocolitica PCR (NOT DETECTE) Stl Vibrio cholerae PCR (NOT DETECTE) Stl Enteroaggr Ecoli PCR (NOT DETECTE) Stl Norovirus GI/GII PCR (NOT DETECTE) C. difficile Toxin A&B (NOT DETECTE) Vibrio Culture (NOT DETECTE) 06/05/23 Range/Units 21:10 WBC (4.0-11.0) 10^3/uL RBC (4.70-6.10) 10^6/uL Hgb (14.0-18.0) g/dL Hct (42.0-54.0) % MCV (80.0-94.0) fL MCH (25.9-34.0) pg MCHC (29.9-35.2) g/dL RDW (11.0-15.0) % Plt Count (150-450) 10^3/uL MPV (9.5-13.5) fL Neut % (Auto) (43.0-75.0) % Lymph % (Auto) (20.5-60.0) % Grainger % (Auto) (1.7-12.0) % Eos % (Auto) (0.9-7.0) % Baso % (Auto) (0.2-2.0) % Neut # (Auto) (1.4-6.5) 10^3/uL Lymph # (Auto) (1.2-3.8) 10^3/uL Grainger # (Auto) (0.3-0.8) 10^3/uL Eos # (Auto) (0.0-0.7) 10^3/uL Baso # (Auto) (0.0-0.1) 10^3/uL Abs Immat Gran (auto) (0.00-0.03) 10^3/uL Imm/Tot Granulo (auto) (0.0-0.5) % Sodium (136-145) mmol/L Potassium (3.5-5.1) mmol/L Chloride (98-107) mmol/L Carbon Dioxide (21.0-32.0) mmol/L Anion Gap BUN (7.0-18.0) mg/dL Creatinine (0.70-1.30) mg/dL Est GFR ( Amer) (>=60) Est GFR (Non-Af Amer) (>=60) BUN/Creatinine Ratio Glucose (74-106) mg/dL Lactate (0.4-2.0) mmol/L Calcium (8.5-10.1) mg/dL Total Bilirubin (0.2-1.0) mg/dL AST (15-37) U/L ALT (16-63) U/L Alkaline Phosphatase (46-116) U/L Total Protein (6.4-8.2) g/dL Albumin (3.4-5.0) g/dL Globulin g/dL Albumin/Globulin Ratio Lipase (16.0-77.0) U/L Urine Color (YELLOW) Urine Clarity (CLEAR) Urine pH (5.0-9.0) Ur Specific Benton (1.005-1.025) Urine Protein (NEG/TRACE) mg/dL Urine Glucose (UA) (NEGATIVE) mg/dL Urine Ketones (NEGATIVE) mg/dL Urine Occult Blood (NEGATIVE) Urine Nitrite (NEGATIVE) Urine Bilirubin (NEGATIVE) Urine Urobilinogen (0.2-1.0) EU/dL Ur Leukocyte Esterase (NEGATIVE) Stl C. cayetanensis PCR Not detected (NOT DETECTE) Stool Rotavirus (PCR) Not detected (NOT DETECTE) Stool Adenovirus (PCR) Not detected (NOT DETECTE) Stool Astrovirus (PCR) Not detected (NOT DETECTE) Stool Campylobacter PCR Not detected (NOT DETECTE) Stool Cryptosporidium PCR Not detected (NOT DETECTE) St Sh/Enteroin Ecoli PCR Not detected (NOT DETECTE) Stl Enterotoxigenic E PCR Not detected (NOT DETECTE) Stool EPEC (PCR) Not detected (NOT DETECTE) Stl E. histolytica PCR Not detected (NOT DETECTE) Stool Giardia Lamblia PCR Not detected (NOT DETECTE) Stl P. shigelloides PCR Not detected (NOT DETECTE) Stool Salmonella PCR Not detected (NOT DETECTE) Stool Sapovirus (PCR) Not detected (NOT DETECTE) Stl Shiga-like Tx 1 PCR Not detected (NOT DETECTE) St Y.enterocolitica PCR Not detected (NOT DETECTE) Stl Vibrio cholerae PCR Not detected (NOT DETECTE) Stl Enteroaggr Ecoli PCR Not detected (NOT DETECTE) Stl Norovirus GI/GII PCR Not detected (NOT DETECTE) C. difficile Toxin A&B Not detected (NOT DETECTE) Vibrio Culture Not detected (NOT DETECTE) Imaging Data Chest x-ray: Attestation: I have reviewed the pertinent imaging results. Radiologist's impression: Procedure: XR chest 1V EXAM: XR chest 1V TECHNIQUE: Single AP view chest HISTORY: aspiration COMPARISON: None. FINDINGS: Sternotomy wires. The heart and mediastinum are unremarkable. Lung hylton are clear. Osseous structures are intact. Evaluation limited by low lung volumes and lordotic positioning. IMPRESSION: No acute pulmonary disease. Electronically authenticated by: SHAE LÓPEZ Date: 06/05/2023 20:16 CT scan - abdomen: Attestation: I have reviewed the pertinent imaging results. Radiologist's impression: Procedure: CT abdomen pelvis w con EXAMINATION: CT abdomen pelvis w con, 06/05/2023 3:43 PM PST HISTORY: vomiting and diarrhea COMPARISON: CT abdomen and pelvis 02/13/2021 TECHNIQUE: CT scan of the abdomen and pelvis was performed with IV contrast. CT dose reduction technique was used, including Automated Exposure Control. FINDINGS: Lung: Mild basilar atelectasis. Heavy coronary calcification. Calcified right lung nodule and subcarinal lymph node. Median sternotomy wires. Liver: No significant finding. Gallbladder: Nondistended gallbladder with mild wall thickening. Spleen: Calcified granuloma. Pancreas: No significant finding. Adrenal glands: No significant finding. Kidneys, ureters and bladder: Circumferential bladder wall thickening. No hydronephrosis. Bowel: Surgical changes from partial colectomy. Anastomosis noted. No evidence of bowel obstruction. Mild distention of the proximal small bowel and stomach. Peritoneum/retroperitoneum: No significant finding. Lymph nodes: No significant finding. Vessels: No significant finding. Body wall: Surgical changes. Reproductive: No significant finding. Bones: Right hip arthroplasty. IMPRESSION: Mild distention of the stomach and proximal small bowel. Suggestive of gastroenteritis. Mild gallbladder wall thickening without evidence of gallstones or distention. Potentially adenomyomatosis. Consider right upper quadrant ultrasound. Bladder wall thickening, correlate for cystitis. Electronically authenticated by: RIGOBERTO PAUL Date: 06/05/2023 19:58 Discharge Plan Discharge Chief Complaint: Nausea/Vomiting/Diarrhea Clinical Impression: Nausea & vomiting, Dehydration Patient Disposition: Home, Self-Care Condition: Good Prescriptions / Home Meds: New hyoscyamine sulfate [Levsin] 0.125 mg tablet 0.125 mg PO Q6H PRN (Reason: abdominal pain) Qty: 12 0RF ondansetron 4 mg tablet,disintegrating 4 mg PO Q6H PRN (Reason: nausea and vomiting) Qty: 12 0RF No Action aspirin [Adult Aspirin Regimen] 81 mg tablet,delayed release (DR/EC) 81 mg PO DAILY clopidogrel 75 mg tablet 75 mg PO DAILY lisinopril 20 mg tablet 30 mg PO DAILY cholecalciferol (vitamin D3) 50 mcg (2,000 unit) tablet 2,000 unit PO DAILY metoprolol tartrate 25 mg tablet 25 mg PO BID multivitamin Tablet 1 tab PO DAILY zinc acetate 50 mg (zinc) capsule 50 mg PO DAILY atorvastatin 80 mg tablet 80 mg PO DAILY vitamin B complex Tablet 1 tab PO DAILY calcium carbonate-vitamin D3 500 mg-10 mcg (400 unit) tablet 1 tab PO DAILY carvedilol 25 mg tablet 12.5 mg PO Q12H Rx Instructions: must administer with a meal/food cinnamon bark [Cinnamon] 500 mg capsule 1,000 mg PO DAILY glipizide 5 mg tablet 10 mg PO DAILY hydrochlorothiazide 25 mg tablet 25 mg PO DAILY metformin 1,000 mg tablet 500 mg PO QAM omega-3 fatty acids 1,000 mg capsule 1,000 mg PO DAILY pantoprazole 40 mg tablet,delayed release (DR/EC) 40 mg PO QAM ondansetron 4 mg tablet,disintegrating 4 mg PO Q8H PRN (Reason: nausea and vomiting) 4 Days Qty: 10 0RF amlodipine 5 mg tablet 5 mg PO QDAY Instructions: Dehydration (ED), Acute Nausea and Vomiting (ED) Stand Alone Forms: Portal Instructions Referrals: Juancarlos Gna DO [Primary Care Provider] - 1 week Discharge Date/Time: 06/05/23 22:28 Documented by User: Osmar Lyons MD 07/03/23 19:17 HPI - Nausea/Vomiting/Diarrhea General Chief complaint: Nausea/Vomiting/Diarrhea Stated complaint: Vomiting Time Seen by Provider: 06/05/23 17:56 Related Data Home Medications Medication Instructions Recorded Confirmed aspirin 81 mg tablet,delayed 81 mg PO DAILY 12/26/22 06/05/23 release (Adult Aspirin Regimen) atorvastatin 80 mg tablet 80 mg PO DAILY 12/26/22 06/05/23 calcium carbonate 500 mg-vitamin 1 tab PO DAILY 12/26/22 06/05/23 D3 10 mcg (400 unit) tablet carvedilol 25 mg tablet 12.5 mg PO Q12H 12/26/22 06/05/23 cholecalciferol (vitamin D3) 50 2,000 unit PO DAILY 12/26/22 06/05/23 mcg (2,000 unit) tablet cinnamon bark 500 mg capsule 1,000 mg PO DAILY 12/26/22 06/05/23 (Cinnamon) clopidogrel 75 mg tablet 75 mg PO DAILY 12/26/22 06/05/23 glipizide 5 mg tablet 10 mg PO DAILY 12/26/22 06/05/23 hydrochlorothiazide 25 mg tablet 25 mg PO DAILY 12/26/22 06/05/23 lisinopril 20 mg tablet 30 mg PO DAILY 12/26/22 06/05/23 metformin 1,000 mg tablet 500 mg PO QAM 12/26/22 06/05/23 metoprolol tartrate 25 mg tablet 25 mg PO BID 12/26/22 12/26/22 multivitamin 1 tab PO DAILY 12/26/22 06/05/23 omega-3 fatty acids 1,000 mg 1,000 mg PO DAILY 12/26/22 06/05/23 capsule pantoprazole 40 mg tablet,delayed 40 mg PO QAM 12/26/22 06/05/23 release vitamin B complex 1 tab PO DAILY 12/26/22 12/26/22 zinc acetate 50 mg (zinc) capsule 50 mg PO DAILY 12/26/22 05/03/23 amlodipine 5 mg tablet 5 mg PO QDAY 06/05/23 06/05/23 Previous Rx's Medication Instructions Recorded ondansetron 4 mg disintegrating 4 mg PO Q8H PRN nausea and 05/03/23 tablet vomiting 4 days #10 tabs hyoscyamine sulfate 0.125 mg 0.125 mg PO Q6H PRN abdominal pain 06/05/23 tablet (Levsin) #12 tabs ondansetron 4 mg disintegrating 4 mg PO Q6H PRN nausea and 06/05/23 tablet vomiting #12 tabs Allergies Allergy/AdvReac Type Severity Reaction Status Date / Time No Known Drug Allergies Allergy Verified 12/26/22 13:53 Exam Constitutional Vital Signs, click to edit/add: Last Vital Signs Temp 98 F 06/05/23 21:24 Pulse 78 06/05/23 21:24 Resp 14 06/05/23 21:24 BP 129/74 06/05/23 21:24 Pulse Ox 98 06/05/23 21:24 O2 Del Method Room Air 06/05/23 17:51 Course Vital Signs Vital signs: Vital Signs Temperature 97.6 F 06/05/23 17:51 Pulse Rate 86 06/05/23 17:51 Respiratory Rate 18 06/05/23 17:51 Blood Pressure 157/89 H 06/05/23 17:51 Pulse Oximetry 95 06/05/23 17:51 Oxygen Delivery Method Room Air 06/05/23 17:51 Temperature 98 F 06/05/23 21:24 Pulse Rate 78 06/05/23 21:24 Respiratory Rate 14 06/05/23 21:24 Blood Pressure 129/74 06/05/23 21:24 Pulse Oximetry 98 06/05/23 21:24 Oxygen Delivery Method Room Air 06/05/23 17:51 MDM - Nausea/Vomiting/Diarrhea MDM Narrative Medical decision making narrative: 2130: patient medicated with IV fluids, Zofran, Pepcid with improvement. He had no episodes of emesis in the emergency department. He did provide a urine specimen which is unremarkable, he did not have any episodes of diarrhea. CT of the abdomen and pelvis shows gastroenteritis, possible thickening of the bladder although he has no evidence of urinary tract infection on urine specimen. There is also mild gallbladder wall thickening with no evidence of gallstones. Right upper quadrant ultrasound was suggested by the radiologist, this was performed in the Emergency Room. Patient's was concerned that he may have aspirated when he vomited in the car earlier, a chest x-ray was performed showing no evidence of aspiration pneumonia. Patient has stable vital signs in the emergency department, abdomen is soft and benign. case is turned over to attending physician pending ultrasound result. US results returned with low suspicion findings for acute cholecystitis . Patient re examined and his abdomen is not tender. Discharged home to follow up with his doctor Lab Data Labs: Lab Results 06/05/23 06/05/23 06/05/23 Range/Units 18:10 19:46 20:20 WBC 16.3 H (4.0-11.0) 10^3/uL RBC 4.56 L (4.70-6.10) 10^6/uL Hgb 14.0 (14.0-18.0) g/dL Hct 41.4 L (42.0-54.0) % MCV 90.8 (80.0-94.0) fL MCH 30.7 (25.9-34.0) pg MCHC 33.8 (29.9-35.2) g/dL RDW 12.8 (11.0-15.0) % Plt Count 216 (150-450) 10^3/uL MPV 10.8 (9.5-13.5) fL Neut % (Auto) 86.5 H (43.0-75.0) % Lymph % (Auto) 5.8 L (20.5-60.0) % Grainger % (Auto) 6.4 (1.7-12.0) % Eos % (Auto) 0.7 L (0.9-7.0) % Baso % (Auto) 0.2 (0.2-2.0) % Neut # (Auto) 14.1 H (1.4-6.5) 10^3/uL Lymph # (Auto) 1.0 L (1.2-3.8) 10^3/uL Grainger # (Auto) 1.1 H (0.3-0.8) 10^3/uL Eos # (Auto) 0.1 (0.0-0.7) 10^3/uL Baso # (Auto) 0.0 (0.0-0.1) 10^3/uL Abs Immat Gran (auto) 0.06 H (0.00-0.03) 10^3/uL Imm/Tot Granulo (auto) 0.4 (0.0-0.5) % Sodium 135 L (136-145) mmol/L Potassium 4.3 (3.5-5.1) mmol/L Chloride 97 L (98-107) mmol/L Carbon Dioxide 23.3 (21.0-32.0) mmol/L Anion Gap 19.0 BUN 25.0 H (7.0-18.0) mg/dL Creatinine 1.86 H (0.70-1.30) mg/dL Est GFR ( Amer) 43 L (>=60) Est GFR (Non-Af Amer) 35 L (>=60) BUN/Creatinine Ratio 13.4 Glucose 294 H (74-106) mg/dL Lactate 2.6 H* 2.0 (0.4-2.0) mmol/L Calcium 9.7 (8.5-10.1) mg/dL Total Bilirubin 0.8 (0.2-1.0) mg/dL AST 24 (15-37) U/L ALT 33 (16-63) U/L Alkaline Phosphatase 124 H (46-116) U/L Total Protein 8.0 (6.4-8.2) g/dL Albumin 3.9 (3.4-5.0) g/dL Globulin 4.1 g/dL Albumin/Globulin Ratio 1.0 Lipase 15.0 L (16.0-77.0) U/L Urine Color Yellow (YELLOW) Urine Clarity Clear (CLEAR) Urine pH 5.0 (5.0-9.0) Ur Specific Benton 1.010 (1.005-1.025) Urine Protein Negative (NEG/TRACE) mg/dL Urine Glucose (UA) 250 A (NEGATIVE) mg/dL Urine Ketones Negative (NEGATIVE) mg/dL Urine Occult Blood Negative (NEGATIVE) Urine Nitrite Negative (NEGATIVE) Urine Bilirubin Negative (NEGATIVE) Urine Urobilinogen 0.2 (0.2-1.0) EU/dL Ur Leukocyte Esterase Negative (NEGATIVE) Stl C. cayetanensis PCR (NOT DETECTE) Stool Rotavirus (PCR) (NOT DETECTE) Stool Adenovirus (PCR) (NOT DETECTE) Stool Astrovirus (PCR) (NOT DETECTE) Stool Campylobacter PCR (NOT DETECTE) Stool Cryptosporidium PCR (NOT DETECTE) St Sh/Enteroin Ecoli PCR (NOT DETECTE) Stl Enterotoxigenic E PCR (NOT DETECTE) Stool EPEC (PCR) (NOT DETECTE) Stl E. histolytica PCR (NOT DETECTE) Stool Giardia Lamblia PCR (NOT DETECTE) Stl P. shigelloides PCR (NOT DETECTE) Stool Salmonella PCR (NOT DETECTE) Stool Sapovirus (PCR) (NOT DETECTE) Stl Shiga-like Tx 1 PCR (NOT DETECTE) St Y.enterocolitica PCR (NOT DETECTE) Stl Vibrio cholerae PCR (NOT DETECTE) Stl Enteroaggr Ecoli PCR (NOT DETECTE) Stl Norovirus GI/GII PCR (NOT DETECTE) C. difficile Toxin A&B (NOT DETECTE) Vibrio Culture (NOT DETECTE) 06/05/23 Range/Units 21:10 WBC (4.0-11.0) 10^3/uL RBC (4.70-6.10) 10^6/uL Hgb (14.0-18.0) g/dL Hct (42.0-54.0) % MCV (80.0-94.0) fL MCH (25.9-34.0) pg MCHC (29.9-35.2) g/dL RDW (11.0-15.0) % Plt Count (150-450) 10^3/uL MPV (9.5-13.5) fL Neut % (Auto) (43.0-75.0) % Lymph % (Auto) (20.5-60.0) % Grainger % (Auto) (1.7-12.0) % Eos % (Auto) (0.9-7.0) % Baso % (Auto) (0.2-2.0) % Neut # (Auto) (1.4-6.5) 10^3/uL Lymph # (Auto) (1.2-3.8) 10^3/uL Grainger # (Auto) (0.3-0.8) 10^3/uL Eos # (Auto) (0.0-0.7) 10^3/uL Baso # (Auto) (0.0-0.1) 10^3/uL Abs Immat Gran (auto) (0.00-0.03) 10^3/uL Imm/Tot Granulo (auto) (0.0-0.5) % Sodium (136-145) mmol/L Potassium (3.5-5.1) mmol/L Chloride (98-107) mmol/L Carbon Dioxide (21.0-32.0) mmol/L Anion Gap BUN (7.0-18.0) mg/dL Creatinine (0.70-1.30) mg/dL Est GFR ( Amer) (>=60) Est GFR (Non-Af Amer) (>=60) BUN/Creatinine Ratio Glucose (74-106) mg/dL Lactate (0.4-2.0) mmol/L Calcium (8.5-10.1) mg/dL Total Bilirubin (0.2-1.0) mg/dL AST (15-37) U/L ALT (16-63) U/L Alkaline Phosphatase (46-116) U/L Total Protein (6.4-8.2) g/dL Albumin (3.4-5.0) g/dL Globulin g/dL Albumin/Globulin Ratio Lipase (16.0-77.0) U/L Urine Color (YELLOW) Urine Clarity (CLEAR) Urine pH (5.0-9.0) Ur Specific Benton (1.005-1.025) Urine Protein (NEG/TRACE) mg/dL Urine Glucose (UA) (NEGATIVE) mg/dL Urine Ketones (NEGATIVE) mg/dL Urine Occult Blood (NEGATIVE) Urine Nitrite (NEGATIVE) Urine Bilirubin (NEGATIVE) Urine Urobilinogen (0.2-1.0) EU/dL Ur Leukocyte Esterase (NEGATIVE) Stl C. cayetanensis PCR Not detected (NOT DETECTE) Stool Rotavirus (PCR) Not detected (NOT DETECTE) Stool Adenovirus (PCR) Not detected (NOT DETECTE) Stool Astrovirus (PCR) Not detected (NOT DETECTE) Stool Campylobacter PCR Not detected (NOT DETECTE) Stool Cryptosporidium PCR Not detected (NOT DETECTE) St Sh/Enteroin Ecoli PCR Not detected (NOT DETECTE) Stl Enterotoxigenic E PCR Not detected (NOT DETECTE) Stool EPEC (PCR) Not detected (NOT DETECTE) Stl E. histolytica PCR Not detected (NOT DETECTE) Stool Giardia Lamblia PCR Not detected (NOT DETECTE) Stl P. shigelloides PCR Not detected (NOT DETECTE) Stool Salmonella PCR Not detected (NOT DETECTE) Stool Sapovirus (PCR) Not detected (NOT DETECTE) Stl Shiga-like Tx 1 PCR Not detected (NOT DETECTE) St Y.enterocolitica PCR Not detected (NOT DETECTE) Stl Vibrio cholerae PCR Not detected (NOT DETECTE) Stl Enteroaggr Ecoli PCR Not detected (NOT DETECTE) Stl Norovirus GI/GII PCR Not detected (NOT DETECTE) C. difficile Toxin A&B Not detected (NOT DETECTE) Vibrio Culture Not detected (NOT DETECTE) Discharge Plan Discharge Chief Complaint: Nausea/Vomiting/Diarrhea Clinical Impression: Nausea & vomiting, Dehydration Patient Disposition: Home, Self-Care Condition: Good Prescriptions / Home Meds: New hyoscyamine sulfate [Levsin] 0.125 mg tablet 0.125 mg PO Q6H PRN (Reason: abdominal pain) Qty: 12 0RF ondansetron 4 mg tablet,disintegrating 4 mg PO Q6H PRN (Reason: nausea and vomiting) Qty: 12 0RF No Action aspirin [Adult Aspirin Regimen] 81 mg tablet,delayed release (DR/EC) 81 mg PO DAILY clopidogrel 75 mg tablet 75 mg PO DAILY lisinopril 20 mg tablet 30 mg PO DAILY cholecalciferol (vitamin D3) 50 mcg (2,000 unit) tablet 2,000 unit PO DAILY metoprolol tartrate 25 mg tablet 25 mg PO BID multivitamin Tablet 1 tab PO DAILY zinc acetate 50 mg (zinc) capsule 50 mg PO DAILY atorvastatin 80 mg tablet 80 mg PO DAILY vitamin B complex Tablet 1 tab PO DAILY calcium carbonate-vitamin D3 500 mg-10 mcg (400 unit) tablet 1 tab PO DAILY carvedilol 25 mg tablet 12.5 mg PO Q12H Rx Instructions: must administer with a meal/food cinnamon bark [Cinnamon] 500 mg capsule 1,000 mg PO DAILY glipizide 5 mg tablet 10 mg PO DAILY hydrochlorothiazide 25 mg tablet 25 mg PO DAILY metformin 1,000 mg tablet 500 mg PO QAM omega-3 fatty acids 1,000 mg capsule 1,000 mg PO DAILY pantoprazole 40 mg tablet,delayed release (DR/EC) 40 mg PO QAM ondansetron 4 mg tablet,disintegrating 4 mg PO Q8H PRN (Reason: nausea and vomiting) 4 Days Qty: 10 0RF amlodipine 5 mg tablet 5 mg PO QDAY Instructions: Dehydration (ED), Acute Nausea and Vomiting (ED) Stand Alone Forms: Portal Instructions Referrals: Juancarlos Gan DO [Primary Care Provider] - 1 week Discharge Date/Time: 06/05/23 22:28
[2023-06-05] MEDS: 0.9 % SODIUM CHLORIDE 1,000 ML 1000 ML IV (18:14)
[2023-06-05] MEDS: FAMOTIDINE/PF 20 MG/2 ML VIAL IV (18:17)
[2023-06-05] MEDS: ONDANSETRON PF 4 MG/2 ML VIAL IV (18:17)
[2023-06-05 18:24] LABS: Basophils Percent Auto 0.2 % (0.2-2.0); Eosinophils Absolute Auto 0.1 10^3/uL (0.0-0.7); Eosinophils Percent Auto 0.7 % (0.9-7.0); Hematocrit 41.4 % (42.0-54.0); Immature Granulocytes Abs Auto 0.06 10^3/uL (0.00-0.03); Immature Granulocytes Pct Auto 0.4 % (0.0-0.5); Lymphocytes Percent Auto 5.8 % (20.5-60.0); Mean Corpuscular HGB Conc 33.8 g/dL (29.9-35.2); Mean Corpuscular Hemoglobin 30.7 pg (25.9-34.0); Mean Corpuscular Volume 90.8 fL (80.0-94.0); Mean Platelet Volume 10.8 fL (9.5-13.5); Monocytes Absolute Auto 1.1 10^3/uL (0.3-0.8); Monocytes Percent Auto 6.4 % (1.7-12.0); Neutrophils Absolute Auto 14.1 10^3/uL (1.4-6.5); Neutrophils Percent Auto 86.5 % (43.0-75.0); Platelet Count 216 10^3/uL (150-450); Red Blood Count 4.56 10^6/uL (4.70-6.10); Red Cell Distribution Width 12.8 % (11.0-15.0); White Blood Count 16.3 10^3/uL (4.0-11.0)
[2023-06-05 18:39] LABS: Alanine Aminotransferase 33 U/L (16-63); Albumin Level 3.9 g/dL (3.4-5.0); Alkaline Phosphatase 124 U/L (46-116); Aspartate Amino Transferase 24 U/L (15-37); BUN Creatinine Ratio 13.4; Bilirubin Total 0.8 mg/dL (0.2-1.0); Calcium 9.7 mg/dL (8.5-10.1); Carbon Dioxide 23.3 mmol/L (21.0-32.0); Chloride 97 mmol/L (98-107); Estimated GFR (African America 43 (>=60); Estimated GFR (Non-African Ame 35 (>=60); Globulin 4.1 g/dL; Glucose 294 mg/dL (74-106); Potassium 4.3 mmol/L (3.5-5.1); Sodium 135 mmol/L (136-145)
[2023-06-05 18:42] LABS: Lactate/Lactic Acid 2.6 mmol/L (0.4-2.0)
--- NOTE | 2023-06-05 19:17 | XR_ITS ---
The [address] [address] Patient Name: LIZZY BURK MRN: [id number] date: 1945 Sex: M Assigned Patient Location: ER Current Patient Location: ER Accession/Order Number: [id number] Exam Date: 06/05/2023 19:28 Report Date: 06/05/2023 20:16 At the request of: GABBI ROLAND Procedure: XR chest 1V EXAM: XR chest 1V TECHNIQUE: Single AP view chest HISTORY: aspiration COMPARISON: None. FINDINGS: Sternotomy wires. The heart and mediastinum are unremarkable. Lung hylton are clear. Osseous structures are intact. Evaluation limited by low lung volumes and lordotic positioning. XR/XR chest 1V IMPRESSION: No acute pulmonary disease. Electronically authenticated by: SHAE LÓPEZ Date: 06/05/2023 20:16
--- NOTE | 2023-06-05 20:02 | US_ITS ---
The [address] [address] Patient Name: LIZZY BURK MRN: [id number] date: 1945 Sex: M Assigned Patient Location: ER Current Patient Location: ED.MAIN Accession/Order Number: [id number] Exam Date: 06/05/2023 20:39 Report Date: 06/05/2023 21:42 At the request of: GABBI ROLAND Procedure: US right upper quadrant EXAMINATION: US right upper quadrant TECHNIQUE: Limited ultrasound of the abdomen was performed. Grayscale and color flow Doppler imaging. HISTORY: vomiting. COMPARISON: CT scan 08/05/2022 FINDINGS: Liver: The liver demonstrates normal homogeneous echotexture and normal size. Gallbladder/biliary: Gallbladder is contracted without definite shadowing stone. Gallbladder wall is mildly thickened at 4.6 mm. No pericholecystic edema demonstrated. The common extrahepatic duct diameter measures 4.2mm. There is no intra or extrahepatic biliary dilatation. There is no visualized obstructing biliary stone. Pancreas: Not assessed due to overlying bowel gas. Right Kidney: Unremarkable with no mass lesion or hydronephrosis. Other findings: None US/US right upper quadrant IMPRESSION: Mild gallbladder wall thickening, possibly due to poor distention of the gallbladder. Acute cholecystitis is felt to be unlikely. No gross gallstones. Electronically authenticated by: SHAE LÓPEZ Date: 06/05/2023 21:42
[2023-06-05 20:28] LABS: Bilirubin Urine NEGATIVE (NEGATIVE); Blood Urine NEGATIVE (NEGATIVE); Clarity Urine CLEAR (CLEAR); Color Urine YELLOW (YELLOW); Glucose Urine UA 250 mg/dL (NEGATIVE); Ketones Urine NEGATIVE (NEGATIVE); Leukocyte Esterase Urine NEGATIVE (NEGATIVE); Nitrite Urine NEGATIVE (NEGATIVE); Protein Urine NEGATIVE (NEG/TRACE); Urobilinogen Urine 0.2 EU/dL (0.2-1.0)
[2023-06-05 20:31] LABS: Urine Microscopic Indicated NO
[2023-06-05 21:19] LABS: Adenovirus F 40/41 NOT DETECTED (NOT DETECTE); Astrovirus NOT DETECTED (NOT DETECTE); Campylobacter NOT DETECTED (NOT DETECTE); Cryptosporidium NOT DETECTED (NOT DETECTE); Cyclospora cayetanensis NOT DETECTED (NOT DETECTE); Entamoeba histolytica NOT DETECTED (NOT DETECTE); Enteroaggregative E.coli NOT DETECTED (NOT DETECTE); Enteropathogenic E.coli NOT DETECTED (NOT DETECTE); Enterotoxigenic E. coli NOT DETECTED (NOT DETECTE); Giardia lamblia NOT DETECTED (NOT DETECTE); Norovirus GI/GII NOT DETECTED (NOT DETECTE); Plesiomonas shigelloides NOT DETECTED (NOT DETECTE); Rotavirus A NOT DETECTED (NOT DETECTE); Salmonella NOT DETECTED (NOT DETECTE); Sapovirus NOT DETECTED (NOT DETECTE); Shiga-like toxin-producing E.C NOT DETECTED (NOT DETECTE); Shigella/Enteroinvasive E.coli NOT DETECTED (NOT DETECTE); Vibrio NOT DETECTED (NOT DETECTE); Vibrio cholerae NOT DETECTED (NOT DETECTE); Yersinia enterocolitica NOT DETECTED (NOT DETECTE)
[2023-06-05 21:24] VITALS: BP 129/74; PULSE 78; RESP 14; TEMP 36.6; O2SAT 98
[2023-06-05] MEDS: ONDANSETRON 4 MG RAPDIS TABLET SL (22:24)
== END 2023-06-05 22:28 | disposition home or self-care (01) ==
PROVIDERS: Physician Assistant; Emergency Provider Internal Medicine; PCP Internal Medicine
DX: R11.2 Nausea with vomiting, unspecified (principal); E86.0 Dehydration; E11.9 Type 2 diabetes mellitus without complications; K52.9 Noninfective gastroenteritis and colitis, unspecified; Z79.82 Long term (current) use of aspirin; Z79.899 Other long term (current) drug therapy; Z79.84 Long term (current) use of oral hypoglycemic drugs; R19.7 Diarrhea, unspecified
CPT/HCPCS: 36415; 71045; 74177; 76705; 80053; 81003; 83605; 83690; 85025; 87507; 96361; 96374; 96375; 99285; Q9967

== ENCOUNTER 2023-06-16 09:49 | Outpatient (OUT) | payer MEDICARE, SELFPAY ==
[2023-06-16 11:02] LABS: Estimated Average Glucose 217 mg/dL; Glycohemoglobin A1C 9.2 % (4.5-6.2)
[2023-06-16 11:09] LABS: Microalbumin Urine Random 1.3 mg/dL (<=30.0)
[2023-06-16 11:19] LABS: Anion Gap 14.9; BUN Creatinine Ratio 14.6; Calcium 8.7 mg/dL (8.5-10.1); Chloride 102 mmol/L (98-107); Estimated GFR (African America 54 (>=60); Estimated GFR (Non-African Ame 45 (>=60); Glucose 170 mg/dL (74-106); Potassium 3.9 mmol/L (3.5-5.1); Sodium 139 mmol/L (136-145)
== END 2023-06-16 09:50 | disposition home or self-care (01) ==
LOC: LAB 09:49
PROVIDERS: PCP Internal Medicine; Visit Provider Internal Medicine
DX: E11.65 Type 2 diabetes mellitus with hyperglycemia (principal)
CPT/HCPCS: 36415; 80048; 82043; 83036

== ENCOUNTER 2023-07-02 08:13 | Outpatient (OUT) | payer MEDICARE, SELFPAY ==
--- NOTE | 2023-07-02 08:59 | P.CN_ITS ---
Consult Note: HPI Data of Consult Patient: known to practice within the last 3 years Consult date: 07/02/23 Requesting Physician: Teri Fisher NP Primary Care Provider: Juancarlos Gan DO Consult Narrative Reason for consult: F/u Narrative: Rufus keita pleasant 77 year old male presents for evaluation and management of chronic pain. Today pain is 7/10 in left knee and mild to moderate in low back without radiculopathy. Patient would like to discuss injection therapy today cc:: CC: Teri Fisher NP Review of Systems ROS Status of ROS 10 or more systems reviewed and unremark able except as noted in history and below Musculoskeletal Reports: back pain and joint pain Meds Home Medications and Allergies Home Medications Medication Instructions Recorded Confirmed Type aspirin 81 mg tablet,delayed 81 mg PO DAILY 12/26/22 06/05/23 History release (Adult Aspirin Regimen) atorvastatin 80 mg tablet 80 mg PO DAILY 12/26/22 06/05/23 History calcium carbonate 500 mg-vitamin 1 tab PO DAILY 12/26/22 06/05/23 History D3 10 mcg (400 unit) tablet carvedilol 25 mg tablet 12.5 mg PO Q12H 12/26/22 06/05/23 History cholecalciferol (vitamin D3) 50 2,000 unit PO DAILY 12/26/22 06/05/23 History mcg (2,000 unit) tablet cinnamon bark 500 mg capsule 1,000 mg PO DAILY 12/26/22 06/05/23 History (Cinnamon) clopidogrel 75 mg tablet 75 mg PO DAILY 12/26/22 06/05/23 History glipizide 5 mg tablet 10 mg PO DAILY 12/26/22 06/05/23 History hydrochlorothiazide 25 mg tablet 25 mg PO DAILY 12/26/22 06/05/23 History lisinopril 20 mg tablet 30 mg PO DAILY 12/26/22 06/05/23 History metformin 1,000 mg tablet 500 mg PO QAM 12/26/22 06/05/23 History metoprolol tartrate 25 mg tablet 25 mg PO BID 12/26/22 12/26/22 History multivitamin 1 tab PO DAILY 12/26/22 06/05/23 History omega-3 fatty acids 1,000 mg 1,000 mg PO DAILY 12/26/22 06/05/23 History capsule pantoprazole 40 mg tablet,delayed 40 mg PO QAM 12/26/22 06/05/23 History release vitamin B complex 1 tab PO DAILY 12/26/22 12/26/22 History zinc acetate 50 mg (zinc) capsule 50 mg PO DAILY 12/26/22 05/03/23 History ondansetron 4 mg disintegrating 4 mg PO Q8H PRN nausea and 05/03/23 Rx tablet vomiting 4 days #10 tabs amlodipine 5 mg tablet 5 mg PO QDAY 06/05/23 06/05/23 History hyoscyamine sulfate 0.125 mg 0.125 mg PO Q6H PRN abdominal pain 06/05/23 Rx tablet (Levsin) #12 tabs ondansetron 4 mg disintegrating 4 mg PO Q6H PRN nausea and 06/05/23 Rx tablet vomiting #12 tabs Allergies Allergy/AdvReac Type Severity Reaction Status Date / Time No Known Drug Allergies Allergy Verified 12/26/22 13:53 Exam Constitutional Documenting provider has reviewed patient's vital signs: yes Common normals: no apparent distress, oriented x3, healthy appearing, alert and well nourished General appearance: cooperative HENMT Common normals: normocephalic, hearing grossly normal bilaterally and moist oral mucous membranes Head and scalp: normocephalic Eye Common normals: PERRL Pupil: PERRL Neck & C-Spine Common normals: full ROM General: normal visual inspection Chest Common normals: inspection of chest normal Respiratory Common normals: normal respiratory effort, no retractions and no use of accessory muscles Back & Pelvis Lumbar spine/lower back: ROM limited, pain with ROM and straight leg raise negative bilaterally Extremity Common normals: normal to inspection and full ROM Right lower extremity: knee joint Other: pain with palpation, mild swelling. pain with medial and lateral stress testing. no instability Neuro Common normals: oriented x3, CN's II-XII intact bilaterally, moves all extremities, no focal motor deficits, no sensory deficits noted, deep tendon reflexes 2+ bilaterally and gait normal Sensorium/orientation: alert Motor exam: strength 5/5 throughout and no movement abnormalities noted Psych Common normals: mental status grossly normal, thought process normal, cooperative, affect normal, speech normal and activity/motor behavior normal Speech: normal speech Thought process: normal thought process Results Additional Findings Additional findings: I have checked an [facility] report on this patient today and there are no aberrancies noted in the prescribing history.?? A drug screen was completed and reviewed within the last year, and if there has not been a drug screen completed we ordered one today to monitor higher risk, state monitored pain medication use. As part of providing excellent, safe, comprehensive care, the following was completed at our patient's visit: 1. A medication reconciliation and review to ensure accurate knowledge of current/active medications, including asking our patients to inform us about any [id number] medications or herbal remedies/nutritional supplements/alternative remedies. 2. A review to specifically ensure our patients have had annual screening for: elevated body mass index (BMI), tobacco use, screening for depression, and screening for unhealthy alcohol use. When screening is concerning, patients are provided with education and the specific recommendation to discuss the concerning health issue and treatment options with their primary care provider. Assessment and Plan Assessment and Plan (1) Knee osteoarthritis: Qualifiers: Osteoarthritis type: primary Laterality: left Qualified Code(s): M17.12 - Unilateral primary osteoarthritis, left knee (2) Lumbar spondylosis: (3) Muscle spasm: Plan durolane injection to left knee with Dr Wade continue current medications, tolerating well without side effect f/u 1 month after injection, consider repeat lumbar RFAs as previous RFAs have provided >80% relief and functional improvement greater than 6 months
== END 2023-07-02 08:14 | disposition home or self-care (01) ==
LOC: PM 08:42
PROVIDERS: PCP Internal Medicine; Visit Provider Nurse Practitioner
DX: M17.12 Unilateral primary osteoarthritis, left knee (principal); M47.816 Spondylosis without myelopathy or radiculopathy, lumbar region; M62.838 Other muscle spasm
CPT/HCPCS: G0463

== ENCOUNTER 2023-07-27 11:02 | Outpatient (OUT) | payer MEDICARE, SELFPAY ==
--- OUTSIDE RECORDS SUMMARY | 2023-07-27 11:08 | XMS_ITS | CCD ---
Author Name Unknown Address [phone] [place] [address] Organization [facility] Care Team Providers Care Crabber Name Role Phone JUANCARLOS GAN Referring Unavailable JUANCARLOS GAN Primary Care Unavailable Delonte Webb Admitting Unavailable Delonte Webb Attending Unavailable JUANCARLOS GAN Referring Unavailable TY DUMONT Surgeon Unavailable TY DUMONT Admitting Unavailable JUANCARLOS GAN Primary Care Unavailable TY DUMONT Attending Unavailable [place] Procedure Practitioner Unavailab Juancarlos Delatorre DO Primary Care Provider Pedro Benavides Ahmed Unavailable [phone] Dylan VANESSA, [facility] Ahmed Unavailable [phone] JUANCARLOS GAN Primary Care Physician Juancarlos Gan Unavailable Juancarlos Gan DO Primary Care Provider Dylan VANESSA, Ahmed Unavailable [phone] JAY MORA Referring Unavailable JUANCARLOS GAN Primary Care Unavailable JAY MORA Referring Unavailable JUANCARLOS GAN Primary Care Unavailable JAY MORA Attending Unavailable JUANCARLOS GAN Primary Care Unavailable JUS BRAY Referring Unavailable JUS BRAY Attending Unavailable JUANCARLOS GAN Primary Care Unavailable ADAMS ., DR EVAN Mcleod Admitting Unavailable LAMAS ., DR EVAN Mcleod Consulting Unavailable BANG, DR VEGA Primary Care Unavailable LAMAS ., DR EVAN Mcleod Attending Unavailable LAKSHMIPATHY ., RAINA Attending Janki vailable LAKSHMIPATHY ., RAINA Admitting Janki vailable LAKSHMIPATHY ., RAINA Consulting Janki vailable BANG, DR VEGA Primary Care Unavailable BANG, DR VEGA Primary Care Unavailable BANG, DR VEGA Attending Unavailable BALL, DR VEGA Admitting Unavailable BALL, DR VEGA Consulting Unavailable HALKER ., MANAV Attending Unavailable BALL, DR VEGA Primary Care Unavailable HALKER ., MANAV Admitting Unavailable ZIEBER, DR GABY Patel Consulting Unavailable HALKER ., MANAV Consulting Unavailable BALL, DR VEGA Attending Unavailable BALL, DR VEGA Admitting Unavailable BALL, DR VEGA Consulting Unavailable BALL, DR VEGA Primary Care Unavailable ZIEBER, DR GABY Patel Consulting Unavailable BALL, DR VEGA Admitting Unavailable BALL, DR VEGA Attending Unavailable BALL, DR VEGA Primary Care Unavailable BALL, DR VEGA Attending Unavailable BALL, DR VEGA Consulting Unavailable BALL, DR VEGA Admitting Unavailable BALL, DR VEGA Primary Care Unavailable LAMAS ., DR EVAN Mcleod Admitting Unavailable FULLER ., CHRISTIN Reis Unavailable BALL, DR VEGA Primary Care Unavailable LAMAS ., DR EVAN Mcleod Attending Unavailable LAMAS ., DR EVAN Mcleod Attending Unavailable LAMAS ., DR EVAN Mcleod Admitting Unavailable BALL, DR VEGA Primary Care Unavailable LAMAS ., DR EVAN Mcleod Consulting Unavailable LAMAS ., DR EVAN Mcleod Admitting Unavailable BALL, DR VEGA Primary Care Unavailable FULLER ., CHRISTIN Consulting Unavailable LAMAS ., DR EVAN Mcleod Attending Unavailable LAKSHMIPATHY ., RAINA Consulting Janki vailable LAMAS ., DR EVAN Mcleod Admitting Unavailable LAMAS ., DR EVAN Mcleod Consulting Unavailable BALL, DR VEGA Primary Care Unavailable LAMAS ., DR EVAN Mcleod Attending Unavailable FULLER ., CHRISTIN Consulting Unavailable LAKSHMIPATHY ., RAINA Attending Janki vailable LAKSHMIPATHY ., RAINA Admitting Janki vailable LAKSHMIPATHY ., RAINA Consulting Janki vailable BALL, DR VEGA Primary Care Unavailable LAMAS ., DR EVAN Mcleod Attending Unavailable LAMAS ., DR EVAN Mcleod Admitting Unavailable BALL, DR VEGA Primary Care Unavailable LAMAS ., DR EVAN Mcleod Consulting Unavailable LAKSHMIPATHY ., RAINA Admitting Janki vailable HALKER ., MANAV Consulting Unavailable BANG, DR VEGA Primary Care Unavailable LAKSHMIPATHY ., RAINA Attending Janki vailable NILL ., DR FAY Admitting Unavailable BALL, DR VEGA Primary Care Unavailable NILL ., DR FAY Attending Unavailable NILL ., DR FAY Consulting Unavailable JAYLIN II, LISA Consulting Unavailable KOMA, CESAR Consulting Unavailable LAMAS ., DR EVAN Mcleod Admitting Unavailable FULLER ., CHRISTIN Consulting Unavailable BALL, DR VEGA Primary Care Unavailable ADAMS ., DR EVAN Mcleod Attending Unavailable ADAMS ., DR EVAN Mcleod Admitting Unavailable BANG, DR VEGA Primary Care Unavailable ADAMS ., DR EVAN Mcleod Attending Unavailable ADAMS ., DR EVAN Mcleod Consulting Unavailable BANG, DR VEGA Primary Care Unavailable BANG, DR VEGA Attending Unavailable BANG, DR VEGA Consulting Unavailable BANG, DR VEGA Admitting Unavailable RANDY, DR GABY Patel Consulting Unavailable ADAMS ., DR EVAN Mcleod Admitting Unavailable ADAMS ., DR EVAN Mcleod Consulting Unavailable BANG, DR VEGA Primary Care Unavailable ADAMS ., DR EVAN Mcleod Attending Unavailable LELA HUGHES Consulting Unavailable NILL, Nya Patel Attending Unavailable NILL, Nya Patel Attending Unavailable NILL, Nya Patel Attending Unavailable MARINO MOE Attending Unavailable DYLAN, PEDRO Attending Unavailable Allergies Allergy Classification Reported Allergen(s) Allergy Type Date of Onset Reaction(s) Facility (20 sources) Morphine; Translations: [morphine] Drug Allergy Unknown [facility] Repository Medications Current Medications Medication Drug Class(es) Dates Sig (Normalized) Sig (Original) Accu-Chek Guide - (20 sources) Accu-Chek Guide - USE TO TEST HOME BLOOD SUGAR ONCE DAILY for 90 Active amLODIPine 5 mg oral tablet (9 sources) Dihydropyridine Calcium Channel Ciera Start: 05-17-2023 take 1 tablet by mouth every twenty-four hours amLODIPine Besylate 5 MG 1 tablet Orally Once a day Apr, Active Ascorbic Acid (9 sources) Vitamin C Start: 04-14-2019 Vitamin C Oral, Daily, Refills(s) 0, Prophylaxis Start Date: 04/14/19 Status: Ordered ascorbic acid (V ITAMIN C ORAL) Take by mouth once daily. 0 Active Comment on above: Take by mouth once d aily. aspirin 81 mg delayed release oral tablet (20 sources) Platelet Aggregation Inhibitor, Nonsteroidal Anti-inflammatory Drug take 1 tablet by mouth every twenty-four hours Aspirin 81 MG 1 tablet Orally Once a day Active aspirin 81 mg ca p Take by mouth once daily. 0 Active Comment on above: Take by mouth once d aily. Aspirin 81 mg Tab-EC (1 source) Start: 03-14-20 take 1 tablet by mouth once daily Aspirin 81 mg Tab-EC 81 mg = 1 tab(s), Oral, Daily, Blood Thinner Start Date: 03/14/21 Status: Ordered atorvastatin 80 mg oral tablet (20 sources) HMG-CoA Reductase Inhibitor Start: 04-14-20 take 80 mg by mouth once daily atorvastatin 80 mg, Oral, Daily, Refills(s) 0, High cholesterol Start Date: 04/14/19 Status: Ordered Comment on above: Take 80 mg by mouth once daily. calcium acetate (1 source) Start: 04-14-20 calcium acetate Oral, TID, Refills(s) 0, Prophylaxis Start Date: 04/14/19 Status: Ordered clopidogrel 75 mg oral tablet (20 sources) P2Y12 Platelet Inhibitor Start: 04-14-20 take 75 mg by mouth once daily Plavix 75 mg, Oral, Daily, Refills(s) 0, Blood Thinner Start Date: 04/14/19 Status: Ordered Comment on above: Take 75 mg by mouth once daily. Cranberry preparation (1 source) Non-Standardized Food Allergenic Extract, Non-Standardized Plant Allergenic Extract Start: 04-14-20 cranberry Oral, Daily, Refill(s) 0, Prophylaxis Start Date: 04/14/19 Status: Ordered empagliflozin 10 mg oral tablet (2 sources) Sodium-Glucose Cotransporter 2 Inhibitor Start: 05-06-20 take 1 tablet by mouth every twenty-four hours Jardiance 10 MG 1 tablet Orally Once a day for 30 days Apr, Active enteric contrast (will be provided with radiology test) (1 source) Start: 10-17-19 End: 10-17-19 take 1 dose by mouth once, then take 1 dose by mouth once enteric contrast (will be provided with radiology test) Take 1 Each by mouth one time only for [address] ABD/PEL WO Routine order Administer, As Directed One Time Only, via Oral, Rectal, both Oral and Rectal, Enteric Tube, Stoma or Indwelling Catheter, Enteric Contrast as designated per enteric contrast guidelines 1 Each 0 10/16/2022 10/16/2022 Active Comment on above: Take 1 Each by mouth one time only for [address] ABD/PEL WO Routine order Administer, As Directed One Time Only, via Oral, Rectal, both Oral and Rectal, Enteric Tube, Stoma or Indwelling Catheter, Enteric Contrast as designated per enteric contrast guidelines escitalopram 10 mg oral tablet (1 source) Serotonin Reuptake Inhibitor Start: 03-11-20 take 1 mg by mouth once daily escitalopram 10 mg Tab mg tab(s), Oral, Daily, Refills(s) 0, Depression Start Date: 03/11/21 Status: Ordered Fish Oils (1 source) Start: 04-14-20 Fish Oil Oral, Daily, Refill(s) 0, Prophylaxis Start Date: 04/14/19 Status: Ordered gabapentin 100 mg oral capsule (20 sources) Anti-epileptic Agent take 1 capsule by mouth every twenty-four hours Gabapentin 100 MG 1 capsule Orally Once a day Active glipiZIDE 10 mg oral tablet (20 sources) Sulfonylurea Start: 06-16-20 take 1 tablet by mouth at dinner glipiZIDE 10 MG 1 tablet Orally 30 minutes prior to bkfst and evening meal for 30 days May, Active Start: 03-11-2021 glipiZIDE (GLU COTROL) 5 mg tablet once daily. 0 03/11/2021 Active glipiZIDE 5 MG T hero 2 PO thirty minutes prior to bkfst and 1 PO thirty minutes prior to supper for 90 days Active take 1 tablet by mansoor th at dinner glipiZIDE 5 MG 1 tablet Orally 30 minutes prior to bkfst and evening meal for 30 days Active Comment on above: once daily. hydroCHLOROthiazide (20 sources) Thiazide Diuretic Start: 04-14-2019 hydrochlorothiazide Oral, Da rivas, Refills(s) 0, High blood pressure Start Date: 04/14/19 Status: Ordered take 1 tablet by mansoor th every other day hydroCHLOROthiazide 25 MG 1 tablet Orall y qod for 30 days Active take 1 tablet by mouth once erika y hydroCHLOROthiazide 25 MG TAKE 1 TABLET BY MOUTH EVERY DAY Active Comment on above: Take 25 mg by mouth once daily. Lisinopril (20 sources) Angiotensin Converting Enzyme Inhibitor Start: 04-14-2019 lisinopril Oral, Daily, Refills(s) 0, High blood pressure Start Date: 04/14/19 Status: Ordered Lisinopril 30 MG TAKE 1 TABLET BY MOUTH EVERY DAY Orally Once a day Active Lisinopril 20 MG TAKE 1 TABLET BY MOUTH EVERY DAY Orally Once a day for 30 days Active take 1 tablet by mouth once erika y Lisinopril 10 MG TAKE 1 TABLET BY MOUTH EVERY DAY Active take 1 tablet by mouth once erika y lisinopril (ZESTRIL, PRINIVIL) 5 mg tablet Take 5 mg by mouth once daily. 0 Active Comment on above: Take 5 mg by mouth o nce daily. Claritin (20 sources) Start: 04-14-2019 Claritin Oral, Daily, Refills(s) 0, Allergy symptoms Start Date: 04/14/19 Status: Ordered Start: 02-02-2017 loratadine (CL ARITIN) 10 mg tablet Take 10 mg by mouth. 0 02/02/2017 Active Comment on above: Take 10 mg by mouth. meclizine hydrochloride 25 mg oral tablet (13 sources) Antiemetic take 1 tablet by mouth every twelve hours Meclizine HCl 25 MG 1 tablet as needed Orally every 12 hrs Active metFORMIN hydrochloride 1000 mg oral tablet (20 sources) Biguanide Start: 9 metformin 1,000 mg, Oral, Refills(s) 0, Blood glucose Start Date: 04/14/19 Status: Ordered take 1 tablet by mansoor th every twelve hours metFORMIN HCl 500 MG 1 tablet with a aditi l Orally twice a day Not-Taking take 1 tablet by mansoor th every twenty-four hours metFORMIN HCl 1000 MG 1 tablet with a me al Orally Once a day Active Comment on above: Take 1,000 mg by mansoor th twice daily with meals. ondansetron 4 mg disintegrating oral tablet (13 sources) Serotonin-3 Receptor Antagonist take 1 tablet by mouth every twenty-four hours Ondansetron 4 MG 1 tablet on the tongue and allow to dissolve Orally Once a day Active pantoprazole 40 mg extended release oral tablet (20 sources) Proton Pump Inhibitor Start: 9 take 40 mg by mouth once daily pantoprazole 40 mg, Oral, Daily, Refills(s) 0, Control of stomach acid Start Date: 04/14/19 Status: Ordered take 1 tablet by mansoor th once daily at breakfast Pantoprazole Sodium 40 MG TAKE 1 TABLET BY MOUTH DAILY ON EMPTY STOMACH FOLLOWED IN 30 MINUTES BY BREAKFAST Active Comment on above: Take 40 mg by mouth once daily. Super B Complex (1 source) Start: 04-14-2019 Super B Complex Oral, Daily, Refill(s) 0, Prophylaxis Start Date: 04/14/19 Status: Ordered Vitamin D3 (1 source) Start: 04-14-2019 Vitamin D3 Oral, Daily, Refills(s) 0, Prophylaxis Start Date: 04/14/19 Status: Ordered Zinc (9 sources) Start: 04-14-2019 Zinc Oral, Daily, Refills(s) 0, Prophylaxis Start Date: 04/14/19 Status: Ordered ZINC ORAL Take b y mouth once daily. 0 Active Comment on above: Take by mouth once d aily. Completed/Discontinued Medications Medication Drug Class(es) Dates Sig (Normalized) Sig (Original) carvedilol 12.5 mg oral tablet (20 sources) alpha-Adrenergic Ciera, beta-Adrenergic Ciera Start: 10-01-2021 End: 10-31-2021 take 1 tablet by mouth every twelve hours carvedilol (COREG) 12.5 mg tablet 1 tablet by ORAL/FEEDING TUBE route q 12 HR. 60 tablet 0 10/01/2021 Active Start: 03-11-2021 take 1 mg by mouth twice daily carvedilol 25 mg Tab mg tab(s), Oral, BID, Refills(s) 0, High blood pressure Start Date: 03/11/21 Status: Ordered take 1 tablet by mansoor th twice daily Carvedilol 12.5 MG TAKE 1 TABLET BY MOUTH TWICE A DAY Active End: 10-16-2022 take 1 tablet by mouth once daily carvedilol (COREG) 12.5 mg tablet Take 12.5 mg by mouth once daily. 0 10/16/2022 Discontinued Comment on above: 1 tablet by ORAL/FEE DING TUBE route q 12 HR. Take 12.5 mg by mout h once daily. CHOLECALCIFEROL, VITAMIN D3, ORAL (8 sources) CHOLECALCIFEROL, VITAMIN D3, ORAL Take by mouth once daily. 0 Active Comment on above: Take by mouth once d aily. CPAP (8 sources) CPAP daily at be pending sale to [facility]. 0 Active Comment on above: daily at bedtime. docosahexaenoic acid/epa (FISH OIL ORAL) (8 sources) docosahexaenoic acid/epa (FISH OIL ORAL) Take by mouth once daily. 0 Active Comment on above: Take by mouth once d aily. Magnesium (8 sources) MAGNESIUM ORAL T hero by mouth once daily. 0 Active Comment on above: Take by mouth once d aily. MULTI-VITAMIN ORAL (8 sources) MULTI-VITAMIN OR AL Take by mouth once daily. 0 Active Comment on above: Take by mouth once d aily. sertraline 100 mg oral tablet (15 sources) Serotonin Reuptake Inhibitor Start: 022 take 1 tablet by mouth once daily at bedtime sertraline (ZOLOFT) 100 mg tablet TAKE 1 TABLET BY MOUTH EVERYDAY AT BEDTIME 0 09/02/2021 Active Sertraline HCl 1 00 MG TAKE 1 TABLET DAILY AT BEDTIME Active Sertraline HCl 1 00 MG TAKE 1 TABLET DAILY AT BEDTIME for 90 Active Comment on above: TAKE 1 TABLET BY MANSOOR EVERYDAY AT BEDTIME tamsulosin hydrochloride 0.4 mg oral capsule (6 sources) alpha-Adrenergic Ciera Start: 2 End: 2 take 1 capsule by mouth once daily tamsulosin (FLOMAX) 0.4 mg Take 1 capsule by mouth once daily. 30 capsule 0 10/01/2021 Active Comment on above: Take 1 capsule by mo [facility] once daily. Vitamin B Complex (8 sources) vitamin B comple x (B COMPLEX 1 ORAL) Take by mouth once daily. 0 Active Comment on above: Take by mouth once d aily. Problems Active Problems Problem Classification Problem Date Documented Date Episodic/Chronic Abdominal hernia (6 sources) Ventral incisional hernia; Translations: [Incisional hernia without obstruction or gangrene] Onset: 10-11-2022 Episodic Acute posthemorrhagic anemia (20 sources) Acute posthemorrhagic anemia; Translations: [Acute posthemorrhagic anemia] Onset: 02-22-2022 Episodic Anxiety disorders (20 sources) Anxiety; Translations: [Generalized anxiety disorder] 03-11-2021 Chronic Biliary tract disease (20 sources) Disorder of gallbladder; Translations: [Other specified diseases of gallbladder] Episodic Conditions associated with dizziness or vertigo (20 sources) Benign paroxysmal positional vertigo; Translations: [Benign paroxysmal vertigo, bilateral] 03-13-2021 Episodic Coronary atherosclerosis and other heart disease (20 sources) Coronary arteriosclerosis; Translations: [Atherosclerotic heart disease of mor[place] coronary artery without angina pectoris] Onset: 05-19-2022 09-13-2021 Chronic Diabetes mellitus with complications (20 sources) Hyperglycemia due to type 2 diabetes mellitus; Translations: [Type 2 diabetes mellitus with hyperglycemia] Onset: 09-17-2022 Chronic Diabetes mellitus without complication (20 sources) Type 2 diabetes mellitus; Translations: [Type 2 diabetes mellitus without complications] Onset: 03-18-2022 09-13-2021 Chronic Disorders of lipid metabolism (20 sources) Hyperlipidemia; Translations: [Hyperlipidemia, unspecified] Onset: 09-17-2022 09-13-2021 Chronic Esophageal disorders (14 sources) Gastro-esophageal reflux disease with esophagitis; Translations: [Gastroesophageal reflux disease with esophagitis without hemorrhage] 03-11-2021 Chronic Essential hypertension (20 sources) Hypertensive disorder; Translations: [Essential (primary) hypertension] Onset: 05-19-2022 09-13-2021 Chronic Genitourinary symptoms and ill-defined conditions (1 source) Post-micturition incontinence 04-14-2019 Chronic Genitourinary symptoms and ill-defined conditions (2 sources) Increased frequency of urination; Translations: [Nocturia] 04-14-2019 Episodic Hyperplasia of prostate (1 source) Benign prostatic hypertrophy with outflow obstruction 04-14-2019 Chronic Occlusion or stenosis of precerebral arteries (20 sources) Left carotid artery stenosis; Translations: [Occlusion and stenosis of left carotid artery] Onset: 09-12-2022 Chronic Osteoarthritis (20 sources) Osteoarthritis of knee; Translations: [Bilateral primary osteoarthritis of knee] Onset: 06-18-2022 Chronic Osteoporosis (1 source) Age-related osteoporosis without current pathological fracture; Translations: [AGE-REL OSTEOPOR W/O CURR PATH FX] Onset: 11-15-2022 Chronic Other aftercare (8 sources) 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; 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] 09-13-2021 Episodic Other and unspecified benign neoplasm (1 source) Benign neoplasm of transverse colon 04-16-2021 Episodic Other and unspecified benign neoplasm (1 source) History of polyp of colon 03-14-2021 Episodic Other and unspecified benign neoplasm (20 sources) Benign neoplasm of colon; Translations: [Benign neoplasm of colon, unspecified] Episodic Other and unspecified benign neoplasm (3 sources) Benign neoplasm of colon, unspecified Episodic Other nervous system disorders (1 source) Other chronic pain; Translations: [OTHER CHRONIC PAIN] Onset: 11-05-2022 Chronic Other nervous system disorders (20 sources) Paresthesia; Translations: [Paresthesia of skin] Episodic Other non-traumatic joint disorders (4 sources) Pain in left hip; Translations: [PAIN IN LEFT HIP] Onset: 11-28-2022 Episodic Other non-traumatic joint disorders (5 sources) Pain in left knee; Translations: [PAIN IN LEFT KNEE] Onset: 03-30-2022 Episodic Other nutritional; endocrine; and metabolic disorders (20 sources) Body mass index 30+ - obesity; Translations: [Obesity, unspecified] 09-13-2021 Chronic Other nutritional; endocrine; and metabolic disorders (8 sources) Obese class II; Translations: [Obesity, unspecified] Onset: 09-25-2021 09-30-2021 Chronic Other nutritional; endocrine; and metabolic disorders (20 sources) Morbid obesity; Translations: [Morbid (severe) obesity due to excess calories] 03-13-2021 Chronic Other nutritional; endocrine; and metabolic disorders (15 sources) Severe obesity; Translations: [Morbid (severe) obesity due to excess calories] Chronic Other nutritional; endocrine; and metabolic disorders (2 sources) Morbid (severe) obesity due to excess calories Chronic Other nutritional; endocrine; and metabolic disorders (2 sources) Body mass index (BMI) 39.0-39.9, adult Chronic Other screening for suspected conditions (not mental disorders or infectious disease) (20 sources) Imaging of biliary tract abnormal; Translations: [Prerenal azotemia] 03-14-2021 Episodic Other skin disorders (20 sources) Vesicular eczema of hands and/or feet; Translations: [Dyshidrosis [pompholyx]] Episodic Peripheral and visceral atherosclerosis (18 sources) Atherosclerosis of mor[place] arteries of extremities with rest pain, right leg; Translations: [Peripheral vascular disease] Onset: 05-19-2022 Chronic Residual codes; unclassified (9 sources) Sleep apnea; Translations: [Sleep apnea, unspecified] 09-13-2021 Chronic Residual codes; unclassified (20 sources) Obstructive sleep apnea syndrome; Translations: [Obstructive sleep apnea (adult) (pediatric)] Chronic Residual codes; unclassified (4 sources) Obstructive sleep apnea (adult) (pediatric) Chronic Residual codes; unclassified (20 sources) History of colectomy; Translations: [Acquired absence of other specified parts of digestive tract] Episodic Screening and history of mental health and substance abuse codes (1 source) Ex-smoker 04-14-2019 Episodic Spondylosis; intervertebral disc disorders; other back problems (20 sources) Lumbar spondylosis; Translations: [Lumbosacral spondylosis with radiculopathy] Onset: 03-12-2022 03-11-2021 Chronic Substance-related disorders (1 source) Smoker 04-14-2019 Chronic Comment on above: Added secondary to d ocumentation in Social History. Unclassified (1 source) Drug therapy finding 04-14-2019 Unclassified (1 source) Finding of sensation of bladder 04-14-2019 Unclassified (4 sources) LOW BACK PAIN, UNSPECIFIED; Translations: [LOW BACK PAIN, UNSPECIFIED] Onset: 06-18-2022 Unclassified (1 source) CONTACT W/AND (SUSP) EXPOS COVID-19; Translations: [CONTACT W/AND (SUSP) EXPOS COVID-19] Onset: 07-03-2022 Past or Other Problems Problem Classification Problem Date Documented Da te Episodic/Chronic Esophageal disorders (10 sources) Esophageal disorders; Translations: [Gastroesophageal reflux disease with esophagitis without hemorrhage] Other aftercare (3 sources) Other longterm (current) drug therapy; Translations: [[employer]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] Onset: 09-17-2022 Episodic Other and unspecified benign neoplasm (11 sources) Polyp of colon; Translations: [Polyp of colon] Onset: 06-07-2021 06-07-2021 Episodic Unclassified (1 source) LOW BACK PAIN, UNSPECIFIED; Translations: [LOW BACK PAIN, UNSPECIFIED] Onset: 04-24-2022 Results Test Name Value Interpretation Reference Range Facility Office Visiton 04-22-2023 Follow-up visit [id number] Vu Yee 1945 M Date Provider Department Center 04/22/2023 Flores-PEDRO BENAVIDES SONIA Michael Family History Problem Relation Age of Onset Coronary artery disease Mother Coronary artery disease Brother Family Status - Relation Status Age at Mother Brother Level of Service:[id number] [place] OFFICE/OUTPATIENT ESTABLISHED LOW MDM 20-29 MIN Normal [facility] Outside Colonoscopyon 2022 Outside Colonoscopy [id number] 0CD:127 Normal [facility] Reminderson 12-18-2022 Reminders - From: Amy Menon LPN To: GSN - Clinical; Sent: 12/18/2022 12:06:16 EDT Show up: 11/16/2025 07:00:00 EDT Subject: colonoscopy recall Due Date/Time: 12/17/2025 07:00:00 EDT Reminder/Recall Patient due for surveillance colonoscopy 12/17/2025. Normal [facility] POINT OF CARE GLUCOSEon 11-19 Glucose [Mass/Vol] 176 mg/dL Critically high 74-106 [facility] Comment on above: Performed By: #### P OCGLUC #### [facility] [address] [address] [address] Rojelio Kingsley POINT OF CARE GLUCOSEon 11-19 Glucose [Mass/Vol] 157 mg/dL Critically high 74-106 [facility] Comment on above: Performed By: #### P OCGLUC #### [facility] [address] [address] [address] Rojelio Kingsley Consent for Procedure/Surger yon 12-03-2022 Consent for Procedure/Surgery [id number]:127 Normal [facility] Physician Referralon 023 Physician Referral [id number] 0CD:127 Normal [facility] General Surgery Office/Clini c Noteon 12-02-2022 General Surgery Office/Clinic Note Chief Complaint update H&P HPI Staff Presents to update H&P for planned surveillance sigmoidoscopy. Last evaluation completed 09/16/22. Patient was unable to hold Plavix at that time. Denies changes since last evaluation. Has history of multiple tubular adenomas with subtotal colectomy. History of Present Illness 76 yo male with h/o ASHD, on Plavix, DMII, htn, hperlipidemia, BHUPENDRA, bph, lumbar spondylosis, initially seen 08/2022 for surveillance sigmoidoscopy; patient with h/o multiple tubular adenomas, s/p subtotal colectomy with ileosigmoid anastomosis and ventral hernia repair 09/2021 at [facility], they recommend yearly surveillance sigmoidoscopies; patient initially unable to hold Plavix, was cleared by Cardiology; denies change in bms, chronic loose stools, no blood; no abd complaints; on baby asa and Plavix daily, no NSAID use, no SBE prophylaxis; fmhx of colon cancer in patient's father, no fmhx of IBD; smokes cigars occasionally. Review of Systems PHQ Score Initial Depression Screen Score: 0 ROS - Provider Constitutional: no fever, no sweats, no weight loss. Eyes: yes glasses, no blurred vision, no visual loss. ENMT: no dentures, no hoarseness, no swallowing difficulties, no hearing loss, no ear infection(s), no nose bleeds. Cardiovascular: normal blood pressure, no chest pain, regular heartbeat, no heart murmur. Respiratory: no shortness of breath, no cough, no asthma, no wheezing. Gastrointestinal: no nausea, no vomiting, no diarrhea, no constipation, no blood in stool, no change in bowel habits, no abdominal pain, no hepatitis. Genitourinary: no kidney stones, no urine infection, no dysuria. Musculoskeletal: no pain, no weakness. Skin: no changing moles, no rash, no skin lumps. Neurologic: no seizures, no epilepsy, no headache. Psychiatric: no emotional or psychiatric problem. Heme/Lymph: no bleeding problems, no anemia, no blood clots, no transfusions. Allergy/Immunologic: no swollen lymph nodes/glands, no IV drug abuse. Other: Additional ROS info: Except as noted in the above Review of Systems and in the History of Present Illness, all other systems have been reviewed and are negative or noncontributory. Physical Exam Vitals & Measurements HR: 60(Peripheral) RR: 16 BP: 17/72 HT: 65 in HT: 165.1 cm WT: 107 kg WT: 235.4 lb BMI: 39.25 HEENT: normal conjunctiva, sclera clear, no scleral icterus, EOM intact, PERRLA, oral mucosa moist without lesions. Neck: trachea midline, no mass, symmetric, no thyromegaly or nodules, no adenopathy Respiratory: lungs CTA, respirations non labored. Cardiovascular: regular rate and rhythm, no murmur, no pedal edema or varicosities. Gastrointestinal: obese, soft, non distended, no tenderness, no masses, no palpable hernias, diastasis recti no, no hepatosplenomegaly; normal bs Lymphatic: no cervical adenopathy, no supraclavicular adenopathy Musculoskeletal: abnormal gait, digits and nails without infection, nodes, cyanosis, clubbing. Skin: no rashes, no lesions, no ulcers, no subcutaneous nodules, induration. Psychiatric/Neuro: oriented to time, place, person, judgement normal, affect appropriate for age, insight intact, no focal deficits. Tests: review of old records completed, Discussed surgical options, risks, and possible complications with patient. Assessment/Plan 1. Personal history of colonic polyps (Z86.010: Personal history of colonic polyps) plan flexible sigmoidoscopy under anesthesia, informed consent obtained. Follow-up No qualifying data available Problem List/Past Medical History Ongoing Abnormal gall bladder diagnostic imaging Anticoagulated Anxiety ASHD (arteriosclerotic heart disease) BMI 39.0-39.9,adult BPH with urinary obstruction BPPV (benign paroxysmal positional vertigo) Colon polyp Diabetes Feeling of incomplete bladder emptying Former smoker GERD with esophagitis Hyperlipidemia Hypertension Lumbar spondylosis Morbid obesity Nocturia Personal history of colonic polyps Post-void dribbling Recurrent ventral incisional hernia Sleep apnea Smoker Tubular adenoma of colon Urinary frequency Historical Hyperlipidemia Procedure/Surgical History Repair of ventral hernia (10/04/2021), Subtotal colectomy (10/04/2021), Colonoscopy (04/08/2021), Colonoscopy (11/17/2017), TURP - Transurethral resection of prostate (03/06/2016), Cystoscopy (02/18/2016), Urodynamics (01/16/2016), Hernia repair (2012), Hip replacement (08/26/2007), Ventral hernia (08/20/2007), Transrectal biopsy of prostate using ultrasound (US) guidance (04/2004), Atherectomy, Bilateral vasectomy, Carpal tunnel release, TKA - Through knee amputation. Medications Aspirin 81 mg Tab-EC, 81 mg= 1 tab(s), Oral, Daily atorvastatin, 80 mg, Oral, Daily calcium acetate, Oral, TID carvedilol 25 mg Tab, Oral, BID Claritin, Oral, Daily cranberry, Oral, Daily escitalopram 10 mg Tab, Oral, Daily Fish Oil, Oral, Daily glipiZIDE 5 mg Tab, 5 mg= 1 tab(s), (more content not included)... Normal [facility] Comment on above: Result Comment: Elec tronically Signed By: PELON VANESSA, Nya Nicholson\Date and Time Signed: 12/02/22 11:37 EDT POINT OF CARE GLUCOSEon 04-2 Glucose [Mass/Vol] 121 mg/dL Critically high 74-106 [facility] Comment on above: Performed By: #### P OCGLUC #### [facility] [address] [address] [address] Rojelio Kingsley CNOVon 10-16-2022 CNOV Office Visit ([facility] ) LIZZY YEE ([id number]) 1945 M Date Time Provider Department 10/16/22 1:20 PM JAY MORA [facility] During your visit today, we recorded the following information about you: Temperature Pulse Blood pressure 97.1 degrees 51/minute 143/66 Destiny Zapata MA 10/16/2022 3:05 PM Signed What is the reason for your visit today? Follow up 1 year Who is your referring physician? Are you having poor oral intake? NO Have you had unintentional weight loss of 15 lbs/7 Kg in the last 3-6 months? NO Bowels: regular Wound: Temperature: No Drains: No Jay Mora MD 10/16/2022 3:05 PM Signed [facility] - Follow Up Visit Assessment/Plan: Lizzy Yee is a 75 year old male with a history of HTN, HLD, CAD, BPM, Anxiety, Obesity (BMI 38), BHUPENDRA, and colonic polyposis syndrome s/p subtotal colectomy with concomitant abdominal wall reconstruction with Dr. Bray on 09/24/21 and is now 1 year post op. He looks and feels well. I was concerned that he may have a subxiphoid recurrence based on his CT scan but neither the patient of I feel a bulge on exam so I think that this represents a bridged repair and that despite our primary closure with figure of eights, the rectus muscles just beneath the xiphoid pulled about do to the significant tension in the area, but that the underlying mesh and repair remain intact. We will continue to monitor for any evidence of symptomatic bulging in the area. - Follow up in one year with CT abdomen/pelvis (PO contrast, no need for IV - ordered) Subjective: Lizzy reports that he is feeling well. He does not feel any bulging or pain associated with his abdominal wall. He does feel like he has put on weight around his abdomen and wants to try to work this off. He reports no issues with p.o. intake and is having 3-4 bowel movements a day, usually loose but better when he takes his fiber. Overall, he is pleased with his repair. Objective: AAOx3, NAD Non-labored respirations on RA Abdomen soft, non-distended, and non-tender. Midline incision well-healed. No bulging along midline with/without valsalva. Jay Mora MD 10/16/22, 2:45 PM General Surgery [facility] Allergies As of Date: 10/16/2022 (No Known Allergies) Date Reviewed: 10/16/2022 Reviewed by: Destiny Zapata MA - Fully Assessed Reason for Visit: Follow Up [171] Cmt: 1 year, ventral incisional hernia Primary Visit Diagnosis:Ventral incisional hernia [K43.2] Order(s):CT ABD/PEL WO IVCON [[id number]] Order #: [id number] FUTURE enteric contrast (will be provided with radiology test)Take 1 Each by mouth one time only for [address] ABD/PEL WO Routine order Administer, As Directed One Time Only, via Oral, Rectal, both Oral and Rectal, Enteric Tube, Stoma or Indwelling Catheter, Enteric Contrast as designated per enteric contrast guidelinesDisp: 1 EachRfl: 0 Prescriptions as of 10/16/2022 - enteric contrast (will be provided with radiology test) Take 1 Each by mouth one time only for [address] ABD/PEL WO Routine order Administer, As Directed One Time Only, via Oral, Rectal, both Oral and Rectal, Enteric Tube, Stoma or Indwelling Catheter, Enteric Contrast as designated per enteric contrast guidelines - lisinopril (ZESTRIL, PRINIVIL) 5 mg tablet Take 5 mg by mouth once daily. - carvedilol (COREG) 12.5 mg tablet 1 tablet by ORAL/FEEDING TUBE route q 12 HR. - tamsulosin (FLOMAX) 0.4 mg Take 1 capsule by mouth once daily. - loratadine (CLARITIN) 10 mg tablet Take 10 mg by mouth. - MULTI-VITAMIN ORAL Take by mouth once daily. - ZINC ORAL Take by mouth once daily. - ascorbic acid (VITAMIN C ORAL) Take by mouth once daily. - vitamin B complex (B COMPLEX 1 ORAL) Take by mouth once daily. - docosahexaenoic acid/epa (FISH OIL ORAL) Take by mouth once daily. - CHOLECALCIFEROL, VITAMIN D3, ORAL Take by mouth once daily. - MAGNESIUM ORAL Take by mouth once daily. - CPAP daily at bedtime. - glipiZIDE (GLUCOTROL) 5 mg tablet once daily. - sertraline (ZOLOFT) 100 mg tablet TAKE 1 TABLET BY MOUTH EVERYDAY AT BEDTIME - metFORMIN (GLUCOPHAGE) 1,000 mg tablet Take 1,000 mg by mouth twice daily with meals. - pantoprazole DR (PROTONIX) 40 mg tablet Take 40 mg by mouth once daily. - hydroCHLOROthiazide (HYDRODIURIL, ESIDRIX) 25 mg tablet Take 25 mg by mouth once daily. - atorvastatin (LIPITOR) 80 mg tablet Take 80 mg by mouth once daily. - clopidogrel (PLAVIX) 75 mg tablet Take 75 mg by mouth once daily. - aspirin 81 mg cap Take by mouth once daily. Problem List As Of Date 10/16/2022 Noted Resolved Polyp of colon [K63.5] 06/07/2021 ASHD (arteriosclerotic heart disease) [I25.10] Sleep apnea [G47.30] HTN (hypertension) [I10] HLD (hyperlipidemia) [E78.5] Type 2 diabetes mellitus, without long-t (more content not included)... Normal [facility] 10-11-2022 [facility] HNO ID: [id number] Author: Glenda Romo RT(R) Service: Radiology Author Type: Technologist Type: Allied Health Filed: 10/11/2022 10:29 AM Note Text: Radiology Service Progress Note PATIENT NAME: Lizzy Yee DATE OF SERVICE: October 11, 2022 TIME: 10:29 AM PATIENT IDENTITY VERIFICATION COMPLETED USING TWO (2) IDENTIFIERS: Name and Date of confirmed by patient verbally. FALL SCREENING: Has the patient had 2 falls in the last year or 1 fall with injury or currently using an Ambulatory Assistive Device (Walker, Cane, Wheelchair, Crutches, etc.)? No PATIENT GENDER DATA: Male PATIENT RELEVANT IMPLANT DATA REVIEWED: Not Applicable RADIOLOGY DEPARTMENT: CT; Exam(s) Completed: Abdomen/Pelvis PERIPHERAL IV DATA: Not applicable SIGNED BY: Glenda Romo, RT(R) October 11, 2022 10:[address] [facility] [address] ABD/PEL WO IVCONon 2022 CT ABD/PEL WO IVCON * * *Final Report* * * DATE OF EXAM: Oct 11 2022 10:30AM [facility] 0531 - CT ABD/PEL WO IVCON / PROCEDURE REASON: Ventral incisional hernia * * * * Physician Interpretation * * * * EXAMINATION: CT ABDOMEN AND PELVIS WITHOUT IV CONTRAST CLINICAL HISTORY: Ventral incisional hernia . TECHNIQUE: Non-IV contrast imaging of the abdomen and pelvis was performed using standard technique, scanning from just above the dome of the diaphragm to the symphysis pubis. Unenhanced imaging is limited for the evaluation of some intra-abdominal and pelvic pathology. M: [id number]_[id number] Contrast: IV: None ORAL: None CT Radiation dose: Integrated Dose-length product (DLP) for this visit = 667 mGy*cm. CT Dose Reduction Employed: Automated exposure control(AEC) and iterative recon COMPARISON: Outside hospital CT abdomen pelvis 10/14/2020 RESULT: Abdomen / Pelvis: Liver: No focal hepatic lesions. Spleen: Calcified granulomas. Pancreas: No focal pancreatic lesions. Adrenals: No mass. Biliary: No bile duct dilation. No gallbladder wall thickening. Kidneys: No hydronephrosis or urolithiasis. Vasculature: Moderate atherosclerotic calcifications of the abdominal aorta without aneurysm. GI tract: Subtotal colectomy. No bowel obstruction. Lymph nodes: No lymphadenopathy by CT size criteria. Mesentery/Peritoneum: No ascites, fluid collection, or mass. Pelvis: No mass, ascites or fluid collection. Urinary bladder is unremarkable. Bones/Soft Tissues: Degenerative changes in the lumbar spine. Right hip arthroplasty. Fat-containing upper abdominal midline hernia with craniocaudal neck of 4.2 cm. Postsurgical changes of ventral abdominal wall hernia repair with no recurrent hernia at this site. Lower thorax: Lower lungs are clear. Vigoureux Printer (topogram) images: Unremarkable. IMPRESSION: Midline fat-containing upper abdominal hernia. Commercial Diver: DANIEL Transcribe Date/Time: Oct 13 2022 7:57A Dictated by : YANICK RIVAS MD This examination was interpreted and the report reviewed and electronically signed by: YANICK RIVAS MD on Oct 13 2022 8:06AM EST [id number] [facility] 10-06-2022 [facility] Telephone ([facility]) LIZZY YEE ([id number]) 1945 M Date Time Provider Department 10/06/22 JAY MORA [facility] During your visit today, we recorded the following information about you: Anjelica Whittkew 10/06/2022 3:09 PM Signed Pt's called he is going in for a CT scan on Thursday does he need to have a creatinine blood level, says he had one within the last month or so at a non facility. PH: [phone] Efrain Guo RN 10/07/2022 10:43 AM Signed Returned call, went to voicedcil. Left message that the CT has been ordered without contrast. Left office number for questions or concerns. Allergies As of Date: 10/06/2022 (No Known Allergies) Date Reviewed: 01/27/2022 Reviewed by: Sarah Osman MA - Fully Assessed Reason for Visit: Patient Question [6927] Prescriptions as of 10/07/2022 - lisinopril (ZESTRIL, PRINIVIL) 5 mg tablet Take 5 mg by mouth once daily. - carvedilol (COREG) 12.5 mg tablet Take 12.5 mg by mouth once daily. - carvedilol (COREG) 12.5 mg tablet 1 tablet by ORAL/FEEDING TUBE route q 12 HR. - tamsulosin (FLOMAX) 0.4 mg Take 1 capsule by mouth once daily. - loratadine (CLARITIN) 10 mg tablet Take 10 mg by mouth. - MULTI-VITAMIN ORAL Take by mouth once daily. - ZINC ORAL Take by mouth once daily. - ascorbic acid (VITAMIN C ORAL) Take by mouth once daily. - vitamin B complex (B COMPLEX 1 ORAL) Take by mouth once daily. - docosahexaenoic acid/epa (FISH OIL ORAL) Take by mouth once daily. - CHOLECALCIFEROL, VITAMIN D3, ORAL Take by mouth once daily. - MAGNESIUM ORAL Take by mouth once daily. - CPAP daily at bedtime. - glipiZIDE (GLUCOTROL) 5 mg tablet once daily. - sertraline (ZOLOFT) 100 mg tablet TAKE 1 TABLET BY MOUTH EVERYDAY AT BEDTIME - metFORMIN (GLUCOPHAGE) 1,000 mg tablet Take 1,000 mg by mouth twice daily with meals. - pantoprazole DR (PROTONIX) 40 mg tablet Take 40 mg by mouth once daily. - hydroCHLOROthiazide (HYDRODIURIL, ESIDRIX) 25 mg tablet Take 25 mg by mouth once daily. - atorvastatin (LIPITOR) 80 mg tablet Take 80 mg by mouth once daily. - clopidogrel (PLAVIX) 75 mg tablet Take 75 mg by mouth once daily. - aspirin 81 mg cap Take by mouth once daily. Problem List As Of Date 10/06/2022 Noted Resolved Polyp of colon [K63.5] 06/07/2021 ASHD (arteriosclerotic heart disease) [I25.10] Sleep apnea [G47.30] HTN (hypertension) [I10] HLD (hyperlipidemia) [E78.5] Type 2 diabetes mellitus, without long-term cur* Antiplatelet or antithrombotic long-term use [Z* Obesity (BMI 30-39.9) [E66.9] Polyposis coli [D12.6] 09/24/2021 09/30/2021 Obesity, Class II, BMI 35-39.9 [E66.9] 09/25/2021 Encounter Status:Closed by EFRAIN GUO on 10/07/22 Normal [facility] Consent for Procedure/Surger yon 09-17-2022 Consent for Procedure/Surgery [id number] 0CD:127 Normal [facility] RAD - Ultrasound Reporton RAD - Ultrasound Report [id number] 0CD:127 Normal [facility] Ambulatory Visit Summaryon 0 09-16-2022 Ambulatory Visit Summary LIZZY YEE :1945 Visit Date:09/16/2022 Ambulatory Visit Instructions Your Diagnosis Personal history of colonic polyps Your Care Team Attending Physician - PELON VANESSA, Nya Patel Primary Care Physician - BANG GOODMAN JUANCARLOS This Is Your Medications List Contact prescribing physician if questions or concerns ascorbic acid (Vitamin C) aspirin (Aspirin 81 mg Tab-EC) atorvastatin calcium acetate carvedilol (carvedilol 25 mg Tab) cholecalciferol (Vitamin D3) clopidogrel (Plavix) cranberry escitalopram (escitalopram 10 mg Tab) glipiZIDE (glipiZIDE 5 mg Tab) hydrochlorothiazide lisinopril loratadine (Claritin) metformin multivitamin (Super B Complex) omega-3 polyunsaturated fatty acids (Fish Oil) pantoprazole zinc sulfate (Zinc) Procedures Performed Repair of ventral hernia (10/04/2021), Subtotal colectomy (10/04/2021), Colonoscopy (04/08/2021), Colonoscopy (11/17/2017), TURP - Transurethral resection of prostate (03/06/2016), Cystoscopy (02/18/2016), Urodynamics (01/16/2016), Hernia repair (2012), Hip replacement (08/26/2007), Ventral hernia (08/20/2007), Transrectal biopsy of prostate using ultrasound (US) guidance (04/2004), Atherectomy, Bilateral vasectomy, Carpal tunnel release, TKA - Through knee amputation. Discharge Vitals Heart Rate (Peripheral) 73 Respiratory Rate 20 Blood Pressure 110/74 Height 165.1 cm Height 65 in Weight 107.4 kg Weight 236.28 lb BMI 39.4 Medications What How Much When Instructions Unchanged ascorbic acid (Vitamin C) By Mouth Every day Contact prescribing physician if questions or concerns Unchanged aspirin (Aspirin 81 mg Tab-EC) 1 Tablets By Mouth Every day Contact prescribing physician if questions or concerns Unchanged atorvastatin 80 Milligram By Mouth Every day Contact prescribing physician if questions or concerns Unchanged calcium acetate By Mouth 3 times a day Contact prescribing physician if questions or concerns Unchanged carvedilol (carvedilol 25 mg Tab) By Mouth 2 times a day Contact prescribing physician if questions or concerns Unchanged cholecalciferol (Vitamin D3) By Mouth Every day Contact prescribing physician if questions or concerns Unchanged clopidogrel (Plavix) 75 Milligram By Mouth Every day Contact prescribing physician if questions or concerns Unchanged cranberry By Mouth Every day Contact prescribing physician if questions or concerns Unchanged escitalopram (escitalopram 10 mg Tab) By Mouth Every day Contact prescribing physician if questions or concerns Unchanged glipiZIDE (glipiZIDE 5 mg Tab) 1 Tablets By Mouth Every day Contact prescribing physician if questions or concerns Unchanged hydrochlorothiazide By Mouth Every day Contact prescribing physician if questions or concerns Unchanged lisinopril By Mouth Every day Contact prescribing physician if questions or concerns Unchanged loratadine (Claritin) By Mouth Every day Contact prescribing physician if questions or concerns Unchanged metformin 1,000 Milligram By Mouth Contact prescribing physician if questions or concerns Unchanged multivitamin (Super B Complex) By Mouth Every day Contact prescribing physician if questions or concerns Unchanged omega-3 polyunsaturated fatty acids (Fish Oil) By Mouth Every day Contact prescribing physician if questions or concerns Unchanged pantoprazole 40 Milligram By Mouth Every day Contact prescribing physician if questions or concerns Unchanged zinc sulfate (Zinc) By Mouth Every day Contact prescribing physician if questions or concerns Allergies No Known Allergies Problems Ongoing - Any problem that you are currently receiving treatment for. Abnormal gall bladder diagnostic imaging Anticoagulated Anxiety ASHD (arteriosclerotic heart disease) BMI 39.0-39.9,adult BPH with urinary obstruction BPPV (benign paroxysmal positional vertigo) Colon polyp Diabetes Feeling of incomplete bladder emptying Former smoker GERD with esophagitis Hyperlipidemia Hypertension Lumbar spondylosis Morbid obesity Nocturia Personal history of colonic polyps Post-void dribbling Recurrent ventral incisional hernia Sleep apnea Smoker Tubular adenoma of colon Urinary frequency Historical - Any problem that you are no longer receiving treatment for. Hyperlipidemia Normal [facility] Ambulatory Visit Summary JOSELITO LIZZY Patel :1945 Visit Date:09/16/2022 Ambulatory Visit Instructions Your Care Team Attending Physician - PELON VANESSA, Nya Patel Primary Care Physician - BANG GOODMAN JUANCARLOS This Is Your Medications List Contact prescribing physician if questions or concerns ascorbic acid (Vitamin C) aspirin (Aspirin 81 mg Tab-EC) atorvastatin calcium acetate carvedilol (carvedilol 25 mg Tab) cholecalciferol (Vitamin D3) clopidogrel (Plavix) cranberry escitalopram (escitalopram 10 mg Tab) glipiZIDE (glipiZIDE 5 mg Tab) hydrochlorothiazide lisinopril loratadine (Claritin) metformin multivitamin (Super B Complex) omega-3 polyunsaturated fatty acids (Fish Oil) pantoprazole zinc sulfate (Zinc) Procedures Performed Repair of ventral hernia (10/04/2021), Subtotal colectomy (10/04/2021), Colonoscopy (04/08/2021), Colonoscopy (11/17/2017), TURP - Transurethral resection of prostate (03/06/2016), Cystoscopy (02/18/2016), Urodynamics (01/16/2016), Hernia repair (2012), Hip replacement (08/26/2007), Ventral hernia (08/20/2007), Transrectal biopsy of prostate using ultrasound (US) guidance (04/2004), Atherectomy, Bilateral vasectomy, Carpal tunnel release, TKA - Through knee amputation. Discharge Vitals Heart Rate (Peripheral) 73 Respiratory Rate 20 Blood Pressure 110/74 Height 165.1 cm Height 65 in Weight 107.4 kg Weight 236.28 lb BMI 39.4 Medications What How Much When Instructions Unchanged ascorbic acid (Vitamin C) By Mouth Every day Contact prescribing physician if questions or concerns Unchanged aspirin (Aspirin 81 mg Tab-EC) 1 Tablets By Mouth Every day Contact prescribing physician if questions or concerns Unchanged atorvastatin 80 Milligram By Mouth Every day Contact prescribing physician if questions or concerns Unchanged calcium acetate By Mouth 3 times a day Contact prescribing physician if questions or concerns Unchanged carvedilol (carvedilol 25 mg Tab) By Mouth 2 times a day Contact prescribing physician if questions or concerns Unchanged cholecalciferol (Vitamin D3) By Mouth Every day Contact prescribing physician if questions or concerns Unchanged clopidogrel (Plavix) 75 Milligram By Mouth Every day Contact prescribing physician if questions or concerns Unchanged cranberry By Mouth Every day Contact prescribing physician if questions or concerns Unchanged escitalopram (escitalopram 10 mg Tab) By Mouth Every day Contact prescribing physician if questions or concerns Unchanged glipiZIDE (glipiZIDE 5 mg Tab) 1 Tablets By Mouth Every day Contact prescribing physician if questions or concerns Unchanged hydrochlorothiazide By Mouth Every day Contact prescribing physician if questions or concerns Unchanged lisinopril By Mouth Every day Contact prescribing physician if questions or concerns Unchanged loratadine (Claritin) By Mouth Every day Contact prescribing physician if questions or concerns Unchanged metformin 1,000 Milligram By Mouth Contact prescribing physician if questions or concerns Unchanged multivitamin (Super B Complex) By Mouth Every day Contact prescribing physician if questions or concerns Unchanged omega-3 polyunsaturated fatty acids (Fish Oil) By Mouth Every day Contact prescribing physician if questions or concerns Unchanged pantoprazole 40 Milligram By Mouth Every day Contact prescribing physician if questions or concerns Unchanged zinc sulfate (Zinc) By Mouth Every day Contact prescribing physician if questions or concerns Allergies No Known Allergies Problems Ongoing - Any problem that you are currently receiving treatment for. Abnormal gall bladder diagnostic imaging Anticoagulated Anxiety ASHD (arteriosclerotic heart disease) BMI 39.0-39.9,adult BPH with urinary obstruction BPPV (benign paroxysmal positional vertigo) Colon polyp Diabetes Feeling of incomplete bladder emptying Former smoker GERD with esophagitis Hyperlipidemia Hypertension Lumbar spondylosis Morbid obesity Nocturia Personal history of colonic polyps Post-void dribbling Recurrent ventral incisional hernia Sleep apnea Smoker Tubular adenoma of colon Urinary frequency Historical - Any problem that you are no longer receiving treatment for. Hyperlipidemia Normal [facility] General Surgery Office/Clini c Noteon 09-16-2022 General Surgery Office/Clinic Note Chief Complaint discuss need for colonoscopy vs sigmoidoscopy HPI Staff Presents to discuss need for follow up sigmoidoscopy. He is s/p subtotal colectomy for polyposis of the colon. Last colonoscopy completed 06/07/21. Dr. Bray recommended yearly sigmoidoscopy. He is currently experiencing abdominal pain, gas, bloating and loose stools. All symptoms have been present since colectomy. He is taking daily fiber. History of Present Illness 76 yo male wi h/o ASHD, on Plavix, DMII, htn, hyperlipidemia, BHUPENDRA, bph, lumbar spondylosis, presents for surveillance colonoscopy; patient with h/o multiple tubular adenomas, s/p subtotal colectomy with ileosigmoid anastomosis and ventral hernia repair 09/2021 at [facility]; requires yearly flexible sigmoidoscopy for surveillance. h/o remote ventral and inguinal hernia repairs, no other abdominal operations; on baby asa and Plavix daily, no NSAIDs, no SBE prophylaxis; fmhx of colon cancer in patient's father; smokes cigars occasionally. Review of Systems PHQ Score Initial Depression Screen Score: 0 ROS - Provider Constitutional: no fever, no sweats, no weight loss. Eyes: no glasses, no blurred vision, no visual loss. ENMT: no dentures, no hoarseness, no swallowing difficulties, no hearing loss, no ear infection(s), no nose bleeds. Cardiovascular: normal blood pressure, no chest pain, regular heartbeat, no heart murmur. Respiratory: no shortness of breath, no cough, no asthma, no wheezing. Gastrointestinal: no nausea, no vomiting, no diarrhea, no constipation, no blood in stool, no change in bowel habits, no abdominal pain, no hepatitis. Genitourinary: no kidney stones, no urine infection, no dysuria. Musculoskeletal: no pain, no weakness. Skin: no changing moles, no rash, no skin lumps. Neurologic: no seizures, no epilepsy, no headache. Psychiatric: no emotional or psychiatric problem. Heme/Lymph: no bleeding problems, no anemia, no blood clots, no transfusions. Allergy/Immunologic: no swollen lymph nodes/glands, no IV drug abuse. Other: Additional ROS info: Except as noted in the above Review of Systems and in the History of Present Illness, all other systems have been reviewed and are negative or noncontributory. Physical Exam Vitals & Measurements HR: 73(Peripheral) RR: 20 BP: 110/74 HT: 65 in HT: 165.1 cm WT: 107.4 kg WT: 236.28 lb BMI: 39.4 HEENT: normal conjunctiva, sclera clear, no scleral icterus, EOM intact, PERRLA, oral mucosa moist without lesions. Neck: trachea midline, no mass, symmetric, no thyromegaly or nodules, no adenopathy Respiratory: lungs CTA, respirations non labored. Cardiovascular: regular rate and rhythm, no murmur, no pedal edema or varicosities. Gastrointestinal: obese, hyperactive bs; soft, non distended, multiple well-healed incisions; no tenderness, no masses, no palpable hernias, diastasis recti no, no hepatosplenomegaly; Lymphatic: no cervical adenopathy, no supraclavicular adenopathy Musculoskeletal: normal gait, digits and nails without infection, nodes, cyanosis, clubbing. Skin: no rashes, no lesions, no ulcers, no subcutaneous nodules, induration. Psychiatric/Neuro: oriented to time, place, person, judgement normal, affect appropriate for age, insight intact, no focal deficits. Tests: labs reviewed, x-rays reviewed, review of old records completed, Discussed surgical options, risks, and possible complications with patient. Assessment/Plan 1. Personal history of colonic polyps (Z86.010: Personal history of colonic polyps) plan surveillance flexible sigmoidoscopy under anesthesia, informed consent obtained; hold Plavix 4 days prior to procedure; clear liquids day before; fleets enema am of procedure. Follow-up No qualifying data available Problem List/Past Medical History Ongoing Abnormal gall bladder diagnostic imaging Anticoagulated Anxiety ASHD (arteriosclerotic heart disease) BMI 39.0-39.9,adult BPH with urinary obstruction BPPV (benign paroxysmal positional vertigo) Colon polyp Diabetes Feeling of incomplete bladder emptying Former smoker GERD with esophagitis Hyperlipidemia Hypertension Lumbar spondylosis Morbid obesity Nocturia Personal history of colonic polyps Post-void dribbling Recurrent ventral incisional hernia Sleep apnea Smoker Tubular adenoma of colon Urinary frequency Historical Hyperlipidemia Procedure/Surgical History Repair of ventral hernia (10/04/2021), Subtotal colectomy (10/04/2021), Colonoscopy (04/08/2021), Colonoscopy (11/17/2017), TURP - Transurethral resection of prostate (03/06/2016), Cystoscopy (02/18/2016), Urodynamics (01/16/2016), Hernia repair (2012), Hip replacement (08/26/2007), Ventral hernia (08/20/2007), Transrectal biopsy of prostate using ultrasound (US) guidance (04/2004), Atherectomy, Bilateral vasectomy, Carpal tunnel release, TKA - Through knee amputation. Medications Aspirin 81 mg Tab-EC, 81 mg= 1 tab(s), Oral, Daily atorvastatin, 80 mg, Oral, Nathalie (more content not included)... Normal [facility] Comment on above: Result Comment: Elec tronically Signed By: PELON VANESSA, Nya Nicholson\Date and Time Signed: 09/16/22 11:17 EST Alanine Aminotransferaseon 0 09-12-2022 ALT [Catalytic activity/Vol] 30 U/L Normal 16-63 [employer] Other Comment on above: Performed By: #### B MP, ALT, LIPID #### [facility] [address] [address] [address] Rojelio Kingsley Basic Metabolic Panelon 08-21 Calcium [Mass/Vol] 9.6352758 mg/dL 8.5-10 .1 mg/dL [employer] Other CO2 [Moles/Vol] 25.78335471 mmol/L 21.0-3 2.0 mmol/L [employer] Other Creatinine [Mass/Vol] 1.11813189 mg/dL Critically high 0.70-1.30 mg/dL [employer] Other Potassium [Moles/Vol] 4.61968465 mmol/L 3 .5-5.1 mmol/L [employer] Other Urea nitrogen [Mass/Vol] 16.5085717 mg/dL 7.0-18.0 mg/dL [employer] Other Basic Metabolic Panel see note [employer] Other Basic Metabolic Panel 141 mmol/L 136-14 5 mmol/L [employer] Other Basic Metabolic Panel 134 mg/dL Critically high 74-106 mg /dL [employer] Other Basic Metabolic Panel 51 mL/min/1.73m2 Critically low >=60 mL/min/1.73m 2 [employer] Other Basic Metabolic Panel >60 mL/min/1.73m2 > =60 mL/min/1.73m 2 [employer] Other Anion gap [Moles/Vol] 15.2 mmol/L Normal No rt [employer] Other Comment on above: Performed By: #### B MP, ALT, LIPID #### [facility] [address] [place] [address] Dr. Rojelio Kingsley Chloride [Moles/Vol] 105 mmol/L Normal 98-107 [facility] [employer] Other Comment on above: Performed By: #### B MP, ALT, LIPID #### [facility] [address] [place] [address] Dr. Rojelio Kingsley Urea nitrogen/Creatinine [Mass ratio] 11.8 mg/mg Normal [facility] [employer] Other Comment on above: Performed By: #### B MP, ALT, LIPID #### [facility] [address] [place] [address] Dr. Rojelio Kingsley CBC AUTO DIFFon 09-12-2022 BASO # 0.0 103/ul Normal 0.0-0.[address] [facility] Comment on above: Performed By: #### C BC #### [facility] [address] [place] [address] Dr. Rojelio Kingsley Basophils/100 WBC (Bld) 0.4 % Normal 0.2-2.[address] [facility] Comment on above: Performed By: #### C BC #### [facility] [address] [place] [address] Dr. Rojelio Kingsley EO # 0.3 103/ul Normal 0.0-0.[address] [facility] Comment on above: Performed By: #### C BC #### [facility] [address] [place] [address] Dr. Rojelio Kingsley Eosinophils/100 WBC (Bld) 3.6 % Normal 0.9-7.[address] [facility] Comment on above: Performed By: #### C BC #### [facility] [address] [place] [address] Dr. Rojelio Kingsley Erythrocyte distribution width (RBC) [Ratio] 14.1 % Normal 11.0-15.[address] [facility] Comment on above: Performed By: #### C BC #### [facility] [address] [place] [address] Dr. Rojelio Kingsley Hematocrit (Bld) [Volume fraction] 40.1 % Critically low 42.0-54.[address] [facility] Comment on above: Performed By: #### C BC #### [facility] [address] [place] [address] Dr. Rojelio Kingsley Hemoglobin (Bld) [Mass/Vol] 13.4 g/dL Critically low 14.0-18.[address] [facility] Comment on above: Performed By: #### C BC #### [facility] [address] [place] [address] Dr. Rojelio Kingsley IG # 0.02 10e3/ul Normal 0.00-0.[address] [facility] Comment on above: Performed By: #### C BC #### [facility] [address] [place] [address] Dr. Rojelio Kingsley IG % 0.2 % Normal 0.0-0.[address] [facility] Comment on above: Performed By: #### C BC #### [facility] [address] [place] [address] Dr. Rojelio Kingsley LYMPH # 1.8 103/ul Normal 1.2-3.[address] [facility] Comment on above: Performed By: #### C BC #### [facility] [address] [place] [address] Dr. Rojelio Kingsley Lymphocytes/100 WBC (Bld) 21.9 % Normal 20.5-60.[address] [facility] Comment on above: Performed By: #### C BC #### [facility] [address] [place] [address] Dr. Rojelio Kingsley MANUAL DIFF REQ NO Normal [facility] Comment on above: Performed By: #### C BC #### [facility] [address] [place] [address] Dr. Rojelio Kingsley MCH (RBC) [Entitic mass] 30.6 pg Normal 25.9-34.[address] [facility] Comment on above: Performed By: #### C BC #### [facility] [address] [place] [address] Dr. Rojelio Kingsley MCHC (RBC) [Mass/Vol] 33.4 g/dL Normal 29.9-35.[address] [facility] Comment on above: Performed By: #### C BC #### [facility] [address] [address] [address] Rojelio Kingsley MCV (RBC) [Entitic vol] 91.6 fL Normal 80.0-94.[address] [facility] Comment on above: Performed By: #### C BC #### [facility] [address] [address] [address] Rojelio Kingsley MONO # 0.8 103/ul Normal 0.3-0.[address] [facility] Comment on above: Performed By: #### C BC #### [facility] [address] [address] [address] Rojelio Kingsley Monocytes/100 WBC (Bld) 9.3 % Normal 1.7-12.[address] [facility] Comment on above: Performed By: #### C BC #### [facility] [address] [address] [address] Rojelio Kingsley NEUT # 5.4 103/ul Normal 1.4-6.[address] [facility] Comment on above: Performed By: #### C BC #### [facility] [address] [address] [address] Rojelio Kingsley Neutrophils/100 WBC (Bld) 64.6 % Normal 43.0-75.[address] [facility] Comment on above: Performed By: #### C BC #### [facility] [address] [address] [address] Rojelio Kingsley Platelet mean volume (Bld) [Entitic vol] 10.3 fL Normal 9.5-13.5 [facility] Comment on above: Performed By: #### C BC #### [facility] [address] [address] [address] Rojelio Kingsley PLT 214 103/ul Normal 150-450 [facility] Comment on above: Performed By: #### C BC #### [facility] [address] [id number] Rojelio Kingsley RBC 4.38 106/ul Critically low 4.70-6.10 [facility] Comment on above: Performed By: #### C BC #### [facility] [address] [address] [address] Rojelio Kingsley WBC 8.4 103/ul Normal 4.0-11.[address] [facility] Comment on above: Performed By: #### C BC #### [facility] [address] [address] [address] Rojelio Kingsley GLYCOHEMOGLOBIN A1Con 2022 ADA RECOMMENDATION SEE BELOW Normal [facility] Comment on above: Result Comment: ADA RECOMMENDED LIMIT 4.0 - 6.0 ADA THERAPEUTIC TARGET < 7.0 ACTION SUGGESTED > 7.0 Performed By: #### P OCGLUC #### [facility] [address] [place] [address] Dr. Rojelio Kingsley Glucose [Mass/Vol] 169 mg/dL Normal [facility] Comment on above: Performed By: #### P OCGLUC #### [facility] [address] [place] [address] Dr. Rojelio Kingsley HbA1c (Bld) [Mass fraction] 7.5 % Critically high 4.5-6.[address] [facility] Comment on above: Performed By: #### P OCGLUC #### [facility] [address] [place] [address] Dr. Rojelio Kingsley LIPID PROFILEon 09-12-2022 CHOL-HDL RATIO NORM SEE BELOW Normal [facility] Comment on above: Result Comment: 3.3 - 4.4 LOW RISK 4.4 - 7.1 AVERAGE RISK 7.1 - 11.0 MODERATE RISK >11.0 HIGH RISK Performed By: #### B MP, ALT, LIPID #### [facility] [address] [place] [address] Dr. Rojelio Kingsley Cholesterol in LDL [Mass/Vol] 31.2 mg/dL Normal [facility] Comment on above: Performed By: #### B MP, ALT, LIPID #### [facility] [address] [place] [address] Dr. Rojelio Kingsley HDL NORMAL > or = 60 mg/dl - LO W CARDIOVASCULAR RISK <40 mg/dl - HIGH CARDIOVASCULAR RISK Normal [facility] Comment on above: Performed By: #### B MP, ALT, LIPID #### [facility] [address] [place], [place] [address] Dr. Rojelio Kingsley LDL CALC NORMAL SEE BELOW Normal [facility] Comment on above: Result Comment: <100 mg/dl OPTIMAL 100 - 129 mg/dl NEAR OR ABOVE OPTIMAL 130 - 159 mg/dl BORDERLINE HIGH 160 - 189 mg/dl HIGH >190 mg/dl VERY HIGH Performed By: #### B MP, ALT, LIPID #### [facility] [address] [id number] Rojelio Kingsley VLDL CALC 40.8 mg/dL Normal [facility] Comment on above: Performed By: #### B MP, ALT, LIPID #### [facility] [address] [place] [address] Dr. Rojelio Kingsley Lipid Panelon 09-12-2022 Lipid Panel > or = 60 mg/dl - LO W CARDIOVASCULAR RISK <40 mg/dl - HIGH CARDIOVASCULAR RISK [employer] Other Lipid Panel SEE BELOW [employer] Other Lipid Panel 31.2 mg/dL [employer] Other Lipid Panel 40.8 mg/dL [employer] Other Cholesterol [Mass/Vol] 115 mg/dL Normal <=200 [employer] Other Comment on above: Performed By: #### B MP, ALT, LIPID #### [facility] [address] [address] [address] Rojelio Kingsley Cholesterol in HDL [Mass/Vol] 43 mg/dL Normal 40-60 [employer] Other Comment on above: Performed By: #### B MP, ALT, LIPID #### [facility] [address] [id number] Rojelio Kingsley Cholesterol.total/Cho lesterol in HDL [Mass ratio] 2.7 {ratio} Normal [employer] Other Comment on above: Performed By: #### B MP, ALT, LIPID #### [facility] [address] [place] [address] Dr. Rojelio Kingsley Triglyceride [Mass/Vol] 204 mg/dL Critically high <=150 [employer] Other Comment on above: Performed By: #### B MP, ALT, LIPID #### [facility] [address] [address] [address] Rojelio Kingsley MICROALBUMIN, RAND URon 02- mALB 2.1 mg/L Normal <=30.[address] [facility] Comment on above: Performed By: #### M ALBR #### [facility] [address] [address] [address] Rojelio Kingsley PROF CHEM 8 (BAS METB)on Calcium [Mass/Vol] 9.6 mg/dL Normal 8.5-10.1 [facility] Comment on above: Performed By: #### B MP, ALT, LIPID #### [facility] [address] [place] [address] Dr. Rojelio Kingsley CO2 [Moles/Vol] 25.1 mmol/L Normal 21.0-32.0 [facility] Comment on above: Performed By: #### B MP, ALT, LIPID #### [facility] [address] [place] [address] Dr. Rojelio Kingsley Creatinine [Mass/Vol] 1.36 mg/dL Critically high 0.70-1.[address] [facility] Comment on above: Performed By: #### B MP, ALT, LIPID #### [facility] [address] [place] [address] Dr. Rojelio Kingsley EGFR-AF NICARAGUAN >60 Normal >=60 [facility] Comment on above: Performed By: #### B MP, ALT, LIPID #### [facility] [address] [address] [address] Rojelio Kingsley EGFR-NON AF NICARAGUAN 51 mL/min/1.73m2 Critically low >=[address] [facility] Comment on above: Performed By: #### B MP, ALT, LIPID #### [facility] [address] [address] [address] Rojelio Kingsley Glucose [Mass/Vol] 134 mg/dL Critically high 74-106 [facility] Comment on above: Performed By: #### B MP, ALT, LIPID #### [facility] [address] [address] [address] Rojelio Kingsley Potassium [Moles/Vol] 4.3 mmol/L Normal 3.5-5.[address] [facility] Comment on above: Performed By: #### B MP, ALT, LIPID #### [facility] [address] [place] [address] Dr. Rojelio Kingsley Sodium [Moles/Vol] 141 mmol/L Normal 136-145 [facility] Comment on above: Performed By: #### B MP, ALT, LIPID #### [facility] [address] [place] [address] Dr. Rojelio Kingsley Urea nitrogen [Mass/Vol] 16.0 mg/dL Normal 7.0-18.[address] [facility] Comment on above: Performed By: #### B MP, ALT, LIPID #### [facility] [address] [place] [address] Dr. Rojelio Kingsley US CAROTID ART BILon 023 US CAROTID ART ZHENG EXAMINATION: US CAROTID ART ZHENG HISTORY: Left carotid artery occlusion COMPARISON: No relevant comparison available. TECHNIQUE: Duplex Doppler ultrasound analysis of carotid and vertebral arteries. . Bilateral carotid arterial duplex examination was performed using B-mode, color flow and spectral analysis. Carotid stenosis is reported according to validated velocity parameters, similar to NASCET criteria. FINDINGS: RIGHT CAROTID ARTERY: Moderate-marked atherosclerotic disease within distal CCA, bulb, and proximal ICA. 64% area reduction within bulb. RIGHT VERTEBRAL: Antegrade flow. Subclavian: PSV: 100.0 cm/s EDV: 0.0 cm/s CCA: Prox: PSV: 78.8 cm/s EDV: 7.6 cm/s Mid: PSV: 81.4 cm/s EDV: 18.0 cm/s Distal: PSV: 61.6 cm/s EDV: 12.7 cm/s BULB: PSV: 88.6 cm/s EDV: 21.5 cm/s ICA: Prox: PSV: 68.8 cm/s EDV: 19.3 cm/s Mid: PSV: 62.2 cm/s EDV: 22.6 cm/s Distal: PSV: 79.8 cm/s EDV: 28.1 cm/s ECA: PSV: 79.8 cm/s EDV: 0.0 cm/s VERTEBRAL: PSV: 19.7 cm/s EDV: 11.5 cm/s ICA/CCA ratio: PSV: 1.1 EDV: 1.2 LEFT CAROTID ARTERY: Marked atherosclerotic disease within bulb and the proximal and mid ICA. 87% area reduction within bulb. LEFT VERTEBRAL: Antegrade flow. Subclavian: PSV: 143.8 cm/s EDV: 0.0 cm/s CCA: Prox: PSV: 79.0 cm/s EDV: 19.2 cm/s Mid: PSV: 84.9 cm/s EDV: 20.2 cm/s Distal: PSV: 77.1 cm/s EDV: 18.9 cm/s BULB: PSV: 104.3 cm/s EDV: 25.4 cm/s ICA: Prox: PSV: 114.0 cm/s EDV: 28.4 cm/s Mid: PSV: 91.4 cm/s EDV: 30.0 cm/s Distal: PSV: 76.9 cm/s EDV: 22.0 cm/s ECA: PSV: 189.5 cm/s EDV: 8.4 cm/s VERTEBRAL: PSV: 87.9 cm/s EDV: 34.7 cm/s ICA/CCA ratio: PSV: 1.3 EDV: 1.4 IMPRESSION: 1. Moderate atherosclerotic narrowing of the right common carotid, bulb, and proximal ICA with up to 64% area reduction within the bulb. Flow stenosis is 0-49% based on flow velocities. 2. Marked atherosclerotic narrowing within left bulb and ICA without Elaine 87% area reduction of the bone. Flow velocities are not significantly elevated, likely due to hemodynamically significant stenosis. Electronically authenticated by: GABY PADILLA Date: 2022-09-12 15:22 Normal [facility] US CAROTID ART ZHENG [employer] Other Orders Onlyon 07-24-2022 Orders Only [id number] Vu Yee 1945 M Date Provider Department Center 07/24/2022 ZOFIA MARTINO CARD [facility] Family History Problem Relation Age of Onset Coronary artery disease Mother Coronary artery disease Brother Family Status - Relation Status Age at Mother Brother Normal [facility] POINT OF CARE GLUCOSEon 12 Glucose [Mass/Vol] 106 mg/dL Normal 74-106 [facility] Comment on above: Performed By: #### P OCGLUC #### [facility] [address] [place], [place] [address] Dr. Rojelio Kingsley [facility] SARS-CoV-2 (COVID-19) RNA MITCHELL+probe Ql (Unsp spec) Not detected Normal NOT DETECTED [facility] Comment on above: Result Comment: This test is not yet approved or cleared by the [place] FDA. When there are no FDA-approved or cleared tests available, and other criteria are met, FDA can make tests available under an emergency access mechanism called an Emergency Use Authorization (EUA). The EUA for this test is supported by the [place] of Health and Human Service's (HHS's) declaration that circumstances exist to justify the emergency use of in vitro diagnostics for the detection and/or diagnosis of the virus that causes COVID-19. This EUA will remain in effect (meaning this test can be used) for the duration of the COVID-19 declaration justifying emergency of IVDs, unless it is terminated or revoked by FDA (after which the test may no longer be used). When diagnostic testing is negative, the possibility of a false negative should be considered in the context of a patient's recent exposures and the presence of clinical signs and symptoms consistent with SARS-CoV-2. Performed By: #### P OCGLUC #### [facility] [address] [place], [place] [address] Dr. Rojelio Kingsley 29on 05-19-2022 29 Addended by: MARINO MOE on: 05/19/2022 03:14 PM Modules accepted: Level of Service Normal [facility] Follow-Upon 05-19-2022 Follow-Up [id number] Vu Yee 1945 [facility] Provider Department [place] 05/19/2022 MARINO GRAVES [facility] Family History Problem Relation Age of Onset Coronary artery disease Mother Coronary artery disease Brother Family Status - Relation Status Age at Mother Brother Level of Service:72323 [place] OFFICE/OUTPATIENT ESTABLISHED LOW MDM 20-29 MIN Reason for Visit and Comments: Coronary Artery Disease [187] Hypertension [879611] Peripheral Vascular Disease [458] Normal [facility] POINT OF CARE GLUCOSEon 10-2 Glucose [Mass/Vol] 129 mg/dL Critically high 74-106 [facility] Comment on above: Performed By: #### P OCGLUC #### [facility] [address] [address] [address] Rojelio Kingsley POINT OF CARE GLUCOSEon 03-21 Glucose [Mass/Vol] 116 mg/dL Critically high 74-106 [facility] Comment on above: Performed By: #### P OCGLUC #### [facility] [address] [address] [address] Rojelio Kingsley XR LSPINE 2_3 VIEWSon 2021 XR LSPINE 2_3 VIEWS EXAMINATION: XR LSPI NE 2_3 VIEWS HISTORY: Lumbosacral spondylosis with radiculopathy ; lumbar pain for one month radiating into both legs COMPARISON: CT abdomen pelvis 02/05/2021 FINDINGS: BONES: No fracture or spondylolisthesis. Moderate degenerative facet arthropathy L4-L5, L5-S1. Multilevel degenerative endplate changes. DISC SPACES: Marked narrowing L2-L3, L4-L5, L5-S1 with prominent posterior disc-osteophyte complexes. Mild/moderate narrowing L1-L2, L3-L4 with prominent posterior disc-osteophyte complexes. PARASPINOUS: Prior right hip replacement. OTHER: Negative. IMPRESSION: 1. No appreciable acute abnormality. 2. Multilevel marked degenerative disc disease causing central canal and foraminal stenosis; not appreciably changed compared to 02/13/2021. Electronically authenticated by: GABY PADILLA Date: 2022-03-05 13:[address] [facility] CBC AUTO DIFFon 02-22-2022 BASO # 0.0 103/ul Normal 0.0-0.[address] [facility] Comment on above: Performed By: #### P OCGLUC #### [facility] [address] [address] [address] Rojelio Kingsley Basophils/100 WBC (Bld) 0.4 % Normal 0.2-2.[address] [facility] Comment on above: Performed By: #### P OCGLUC #### [facility] [address] [place] [address] Dr. Rojelio Kingsley EO # 0.3 103/ul Normal 0.0-0.[address] [facility] Comment on above: Performed By: #### P OCGLUC #### [facility] [address] [place] [address] Dr. Rojelio Kingsley Eosinophils/100 WBC (Bld) 3.0 % Normal 0.9-7.[address] [facility] Comment on above: Performed By: #### P OCGLUC #### [facility] [address] [place] [address] Dr. Rojelio Kingsley Erythrocyte distribution width (RBC) [Ratio] 14.4 % Normal 11.0-15.[address] [facility] Comment on above: Performed By: #### P OCGLUC #### [facility] [address] [place] [address] Dr. Rojelio Kingsley Hematocrit (Bld) [Volume fraction] 37.1 % Critically low 42.0-54.[address] [facility] Comment on above: Performed By: #### P OCGLUC #### [facility] [address] [place] [address] Dr. Rojelio Kingsley Hemoglobin (Bld) [Mass/Vol] 12.2 g/dL Critically low 14.0-18.[address] [facility] Comment on above: Performed By: #### P OCGLUC #### [facility] [address] [place] [address] Dr. Rojelio Kingsley IG # 0.03 10e3/ul Normal 0.00-0.[address] [facility] Comment on above: Performed By: #### P OCGLUC #### [facility] [address] [place] [address] Dr. Rojelio Kingsley IG % 0.4 % Normal 0.0-0.[address] [facility] Comment on above: Performed By: #### P OCGLUC #### [facility] [address] [address] [address] Rojelio Kingsley LYMPH # 1.8 103/ul Normal 1.2-3.[address] [facility] Comment on above: Performed By: #### P OCGLUC #### [facility] [address] [address] [address] Rojelio Kingsley Lymphocytes/100 WBC (Bld) 21.6 % Normal 20.5-60.[address] [facility] Comment on above: Performed By: #### P OCGLUC #### [facility] [address] [address] [address] Rojelio Kingsley MANUAL DIFF REQ NO Normal [facility] Comment on above: Performed By: #### P OCGLUC #### [facility] [address] [place] [address] Dr. Rojelio Kingsley MCH (RBC) [Entitic mass] 30.0 pg Normal 25.9-34.[address] [facility] Comment on above: Performed By: #### P OCGLUC #### [facility] [address] [place] [address] Dr. Rojelio Kingsley MCHC (RBC) [Mass/Vol] 32.9 g/dL Normal 29.9-35.[address] [facility] Comment on above: Performed By: #### P OCGLUC #### [facility] [address] [place] [address] Dr. Rojelio Kingsley MCV (RBC) [Entitic vol] 91.4 fL Normal 80.0-94.[address] [facility] Comment on above: Performed By: #### P OCGLUC #### [facility] [address] [place] [address] Dr. Rojelio Kingsley MONO # 0.7 103/ul Normal 0.3-0.[address] [facility] Comment on above: Performed By: #### P OCGLUC #### [facility] [address] [place] [address] Dr. Rojelio Kingsley Monocytes/100 WBC (Bld) 8.4 % Normal 1.7-12.[address] [facility] Comment on above: Performed By: #### P OCGLUC #### [facility] [address] [address] [address] Rojelio Kingsley NEUT # 5.5 103/ul Normal 1.4-6.[address] [facility] Comment on above: Performed By: #### P OCGLUC #### [facility] [address] [address] [address] Rojelio Kingsley Neutrophils/100 WBC (Bld) 66.2 % Normal 43.0-75.[address] [facility] Comment on above: Performed By: #### P OCGLUC #### [facility] [address] [address] [address] Rojelio Kingsley Platelet mean volume (Bld) [Entitic vol] 10.3 fL Normal 9.5-13.[address] [facility] Comment on above: Performed By: #### P OCGLUC #### [facility] [address] [address] [address] Rojelio Kingsley PLT 202 103/ul Normal 150-[address] [facility] Comment on above: Performed By: #### P OCGLUC #### [facility] [address] [address] [address] Rojelio Kingsley RBC 4.06 106/ul Critically low 4.70-6.10 [facility] Comment on above: Performed By: #### P OCGLUC #### [facility] [address] [address] [address] Rojelio Kingsley WBC 8.3 103/ul Normal 4.0-11.[address] [facility] Comment on above: Performed By: #### P OCGLUC #### [facility] [address] [address] [address] Rojelio Kingsley GLYCOHEMOGLOBIN A1Con 2021 ADA RECOMMENDATION SEE BELOW Normal [facility] Comment on above: Result Comment: ADA RECOMMENDED LIMIT 4.0 - 6.0 ADA THERAPEUTIC TARGET < 7.0 ACTION SUGGESTED > 7.0 Performed By: #### A 1C #### [facility] [address] [address] [address] Rojelio Kingsley Glucose [Mass/Vol] 151 mg/dL Normal [facility] Comment on above: Performed By: #### A 1C #### [facility] [address] [place], [place] [address] Dr. Rojelio Kingsley HbA1c (Bld) [Mass fraction] 6.9 % Critically high 4.5-6.[address] [facility] Comment on above: Performed By: #### A 1C #### [facility] [address] [place], [place] [address] Dr. Rojelio Kingsley Consultation Noteon 02-19-20 Consultation Note [id number] 0CD:127 Normal [facility] CNOVon 01-27-2022 [facility] Office Visit ([facility] ) LIZZY YEE ([id number]) 1945 M Date Time Provider Department 01/27/22 1:00 PM JUS BRAY [facility] During your visit today, we recorded the following information about you: Temperature Pulse Blood pressure Weight 96.9 degrees 50/minute 131/56 104.3 kg Height 1.651 m Jus Bray MD 02/05/2022 3:02 PM Signed HPI Lizzy Patel Joselito is a 76 year old male with history of HTN, HLD, CAD, BPM, Anxiety, Obesity (BMI?38), BHUPENDRA, and colonic polyposis syndrome?s/p subtotal colectomy with concomitant abdominal wall reconstruction with Dr. Mora 10/04. Patient is presenting for follow up. Patient is doing well overall. Patient denies any abdominal pain, nausea, vomiting. Patient reports good appetite and PO intake. Patient is having good bowel function. He reports 3-4 bowel movements per day. Patient denies any incontinence. PHYSICAL EXAM BP 131/56 Pulse 50 Temp 96.9 Ht 5' 5 (1.65m) Wt 230 lb (104.3kg) SpO2 98% BMI 38.27 kg/(m2). General Appearance: Well appearing, alert, in no acute distress Abdomen: soft, non-tender, well healed incision, no evidence of hernia Assessment Patient is a 76 yo male with history of HTN, HLD, CAD, BPM, Anxiety, Obesity (BMI?38), BHUPENDRA, and colonic polyposis syndrome?s/p subtotal colectomy with concomitant abdominal wall reconstruction with Dr. Mora 10/04. Patient is presenting for follow up. Patient is doing well overall. Plan RECOMMENDATION - we discussed that he will continue to need close surveillance of his remaining colon and rectum for polyp formation. Would recommend annual flexible sigmoidoscopies. He will have these done with his surgeon close to home - He has no dietary or physical restriction from my standpoint - Follow up anytime as needed. MD Sarah Gallegos MA 01/27/2022 1:23 PM Signed What is the reason for your visit today? Established patient presents for follow up. Who is your referring physician? Are you having poor oral intake? Yes. Patient states that he sometimes chokes when eating too fast. Have you had unintentional weight loss of 15 lbs/7 Kg in the last 3-6 months? NO Bowels: loose Wound: None Temperature: No Drains: No Referring Provider: JUS BRAY [[id number]] Allergies As of Date: 01/27/2022 (No Known Allergies) Date Reviewed: 01/27/2022 Reviewed by: Sarah Osman MA - Fully Assessed Reason for Visit: Established Patient Follow-Up [[id number]] Primary Visit Diagnosis:Polyposis of colon [K63.5] Other Visit Diagnosis:Incisional hernia, without obstruction or gangrene [K43.2] Prescriptions as of 02/14/2022 - lisinopril (ZESTRIL, PRINIVIL) 5 mg tablet Take 5 mg by mouth once daily. - carvedilol (COREG) 12.5 mg tablet Take 12.5 mg by mouth once daily. - carvedilol (COREG) 12.5 mg tablet 1 tablet by ORAL/FEEDING TUBE route q 12 HR. - tamsulosin (FLOMAX) 0.4 mg Take 1 capsule by mouth once daily. - loratadine (CLARITIN) 10 mg tablet Take 10 mg by mouth. - MULTI-VITAMIN ORAL Take by mouth once daily. - ZINC ORAL Take by mouth once daily. - ascorbic acid (VITAMIN C ORAL) Take by mouth once daily. - vitamin B complex (B COMPLEX 1 ORAL) Take by mouth once daily. - docosahexaenoic acid/epa (FISH OIL ORAL) Take by mouth once daily. - CHOLECALCIFEROL, VITAMIN D3, ORAL Take by mouth once daily. - MAGNESIUM ORAL Take by mouth once daily. - CPAP daily at bedtime. - glipiZIDE (GLUCOTROL) 5 mg tablet once daily. - sertraline (ZOLOFT) 100 mg tablet TAKE 1 TABLET BY MOUTH EVERYDAY AT BEDTIME - metFORMIN (GLUCOPHAGE) 1,000 mg tablet Take 1,000 mg by mouth twice daily with meals. - pantoprazole DR (PROTONIX) 40 mg tablet Take 40 mg by mouth once daily. - hydroCHLOROthiazide (HYDRODIURIL, ESIDRIX) 25 mg tablet Take 25 mg by mouth once daily. - atorvastatin (LIPITOR) 80 mg tablet Take 80 mg by mouth once daily. - clopidogrel (PLAVIX) 75 mg tablet Take 75 mg by mouth once daily. - aspirin 81 mg cap Take by mouth once daily. Problem List As Of Date 01/27/2022 Noted Resolved Polyp of colon [K63.5] 06/07/2021 ASHD (arteriosclerotic heart disease) [I25.10] Sleep apnea [G47.30] HTN (hypertension) [I10] HLD (hyperlipidemia) [E78.5] Type 2 diabetes mellitus, without long-term cur* Antiplatelet or antithrombotic long-term use [Z* Obesity (BMI 30-39.9) [E66.9] Polyposis coli [D12.6] 09/24/2021 09/30/2021 Obesity, Class II, BMI 35-39.9 [E66.9] 09/25/2021 Visit Notes: >> Sarah Osman MA Mon Jan 27, 2022 1:19 PM Status: Signed What is the reason for your visit today? Established patient presents for follow up. Who is your referring physician? Are you having poor oral intake? Yes. Patient states that he sometimes chokes when eating too fast. Have you had unintentional weight loss of 15 lbs/7 Kg in the last 3-6 mo (more content not included)... Normal [facility] KNEE RIGHT 3 [facility] KNEE RIGHT 3 [facility] Department of Radiology [address] [place] [address] ======== Patient Name: LIZZY YEE : 1945 Sex: M Age: Race: White Pt. Location: Patient Status: Ordered Date: 01/09/2021 1:10:00 PM Completed Date: 01/09/2021 01:11 PM Requesting Provider: TY DUMONT Attending Provider: Report Copy To: Signs & Symptoms: Z96.659 Presence of unspecified artificial knee joint I10 History: Comments: Exam: KNEE RIGHT 3 [facility] ======== KNEE RIGHT 3 [facility] HISTORY: Knee replacement, follow-up. COMPARISON: 12/26/2020. IMPRESSION: 1. Redemonstrated total knee prosthesis, no hardware complication or acute abnormality. No significant joint effusion. Mild soft tissue swelling noted. Electronically signed: Mitul Banks. Transcribed by: [email or web address], User Resident: Electronically Signed by: MITUL BANKS @ 01/09/2021 08:47 PM Normal [facility] POC GLUCOSE LABon 12-29-2020 Glucose [Mass/Vol] 194 mg/dL High 70-100 [facility] Comment on above: Performed By: #### 8 [id number] #### [facility] [address] [place] [address], [place] Glucose [Mass/Vol] 125 mg/dL High 70-100 [facility] Comment on above: Performed By: #### 8 [id number] #### [facility] [address] [place] [address], [place] POC GLUCOSE LABon 12-28-2020 Glucose [Mass/Vol] 197 mg/dL High 70-100 [facility] Comment on above: Performed By: #### 8 [id number] #### [facility] [address] [place] [address], [place] Glucose [Mass/Vol] 177 mg/dL High 70-100 [facility] Comment on above: Performed By: #### 8 [id number] #### [facility] [address] [place] [address], [place] Glucose [Mass/Vol] 215 mg/dL High 70-100 [facility] Comment on above: Performed By: #### 8 [id number] #### [facility] [address] [place] [address], [place] Glucose [Mass/Vol] 152 mg/dL High 70-100 [facility] Comment on above: Performed By: #### 8 [id number] #### [facility] [address] [place] [address], [place] BASIC METABOLIC PANELon 12-18 Calcium [Mass/Vol] 8.2 mg/dL Low 8.6-10.3 [facility] Comment on above: Order Comment: No: D o not add to previous draw Performed By: #### 8 [id number] #### [facility] [address] [place] [address], [place] Chloride [Moles/Vol] 102 mmol/L Normal 98-107 [facility] Comment on above: Order Comment: No: D o not add to previous draw Performed By: #### 8 [id number] #### [facility] [address] [place] [address], [place] CO2 [Moles/Vol] 23 mmol/L Normal 21-31 [facility] Comment on above: Order Comment: No: D o not add to previous draw Performed By: #### 8 [id number] #### [facility] [address] [place] [address], [place] Creatinine [Mass/Vol] 0.97 mg/dL Normal 0.70-1.30 [facility] Comment on above: Order Comment: No: D o not add to previous draw Performed By: #### 8 [id number] #### [facility] [address] [place] [address], [place] GFR/1.73 sq M.predicted among blacks MDRD (S/P/Bld) [Vol rate/Area] mL/min/{1.73_m2} Normal >60 [facility] Comment on above: Order Comment: No: D o not add to previous draw Result Comment: Calc ulation may not be valid for patients over 70 years Performed By: #### 8 [id number] #### [facility] [address] [place] [address], [place] GFR/1.73 sq M.predicted among non-blacks MDRD (S/P/Bld) [Vol rate/Area] mL/min/{1.73_m2} Normal >60 [facility] Comment on above: Order Comment: No: D o not add to previous draw Result Comment: Calc ulation may not be valid for patients over 70 years Performed By: #### 8 [id number] #### [facility] [address] [place] [address], [place] Glucose [Mass/Vol] 191 mg/dL High 70-100 [facility] [place] Comment on above: Order Comment: No: D o not add to previous draw Performed By: #### 8 [id number] #### [facility] [address] [place] [address], [place] Potassium [Moles/Vol] 3.8 mmol/L Normal 3.5-5.1 [facility] Comment on above: Order Comment: No: D o not add to previous draw Performed By: #### 8 [id number] #### [facility] [address] [place] [address], [facility] Sodium [Moles/Vol] 134 mmol/L Low 136-145 [facility] Comment on above: Order Comment: No: D o not add to previous draw Performed By: #### 8 [id number] #### [facility] [address] [place] [address], [facility] Urea nitrogen [Mass/Vol] 23 mg/dL Normal 7-25 [facility] Comment on above: Order Comment: No: D o not add to previous draw Performed By: #### 8 [id number] #### [facility] [address] [place] [address], [facility] CBC COMPLETE BLOOD COUNTon 0 12-27-2020 Erythrocyte distribution width (RBC) [Ratio] 13.3 % Normal 11.5-15.0 [facility] Comment on above: Order Comment: No: D o not add to previous draw Performed By: #### 8 [id number] #### [facility] [address] [place] [address], [facility] Hematocrit (Bld) [Volume fraction] 35.4 % Low 39.0-50.0 [facility] Comment on above: Order Comment: No: D o not add to previous draw Performed By: #### 8 [id number] #### [facility] [address] [place] [address], [facility] Hemoglobin (Bld) [Mass/Vol] 11.7 g/dL Low 13.0-17.0 [facility] Comment on above: Order Comment: No: D o not add to previous draw Performed By: #### 8 [id number] #### [facility] [address] [place] [address], [place] MCH (RBC) [Entitic mass] 31.2 pg Normal 27.0-33.0 [facility] Comment on above: Order Comment: No: D o not add to previous draw Performed By: #### 8 [id number] #### [facility] [address] [place] [address], [facility] MCHC (RBC) [Mass/Vol] 33.1 g/dL Normal 32.0-35.0 [facility] Comment on above: Order Comment: No: D o not add to previous draw Performed By: #### 8 [id number] #### [facility] [address] [place] [address], [facility] MCV (RBC) [Entitic vol] 94.4 fL Normal 82.0-98.0 [facility] Comment on above: Order Comment: No: D o not add to previous draw Performed By: #### 8 [id number] #### [facility] [address] [facility] [place] [address], [facility] Nucleated RBC/100 WBC (Bld) [Ratio] 0 % Normal 0-0 [facility] Comment on above: Order Comment: No: D o not add to previous draw Performed By: #### 8 [id number] #### [facility] [address] [place] [address], [facility] PLAT CNT 177 10*3/uL Normal 150-400 [facility] Comment on above: Order Comment: No: D o not add to previous draw Performed By: #### 8 [id number] #### [facility] [address] [place] [address], [facility] RBC (Bld) [#/Vol] 3.75 10*6/uL Low 4.20-5.70 [facility] Comment on above: Order Comment: No: D o not add to previous draw Performed By: #### 8 [id number] #### [facility] [address] [place] [id number], [place] WBC (Bld) [#/Vol] 16.83 10*3/uL High 4.00-10.60 [facility] Comment on above: Order Comment: No: D o not add to previous draw Performed By: #### 8 [id number] #### [facility] Shantal KELLY. [address] Operative Reporton 1 Operative Report MR#: [id number] I [facility] Pt. Name: Lizzy Yee Room #: 6AB [id number] Discharge Date: Birthdate: 1945 OPERATIVE REPORT DATE OF SURGERY: 12/26/2020 SURGEON: Ty Dumont M.D. PRIMARY CARE PHYSICIAN: Juancarlos Gan D.O. ASSISTANTS: 1. Dano Cano MD, resident orthopedic surgery. 2. Mirian Porras, medical student year 3. 3. Liana Patino, 1st assist. PREOPERATIVE DIAGNOSES: Right knee joint severe tricompartmental degenerative arthritis along with varus deformity and fixed flexion deformity. SECONDARY DIAGNOSES: Morbid obesity, diabetes mellitus, cardiovascular disease, peripheral vascular disease, lumbosacral radiculopathy, status post bilateral hip arthroplasty. POSTOPERATIVE DIAGNOSES: Right knee joint severe tricompartmental degenerative arthritis along with varus deformity and fixed flexion deformity. PROCEDURES PERFORMED: Right primary cemented posterior stabilized total knee arthroplasty using Rick implants. COMPLICATIONS: None. TOTAL TOURNIQUET TIME: 92 minutes. HARDWARE USED: 1. Triathlon posterior stabilized femoral component, right-side size 6 type PS. 2. Triathlon X3, asymmetric patella size A 38, 11 mm thickness. 3. Triathlon total knee cemented stem diameter 15 mm x 50 mm. Triathlon total knee universal tibial baseplate, size 6. 4. Triathlon tibial bearing insert, posterior stabilized, size 6 x 11 mm. 5. Two batches of Biomet cement. COMPLICATIONS: None. COUNTS: Total swab count, needle count as well as instrument count was accurate at the end of the procedure. INDICATION FOR PROCEDURE: The patient is a pleasant 74-year-old male, who has been having severe bilateral tricompartmental degenerative arthritis of the knee joint, right side worse than left side. He is also status post bilateral hip arthroplasty in the past. He has tried nonsurgical treatment in the form of oral pain medications, intra-articular cortisone injections as well as gel injections, physical therapy, weight loss program without much relief. He has been limping and has been struggling to ambulate around, and do his daily activities. He has failed nonsurgical treatment for his knee joints and wants to proceed with right knee arthroplasty. He is indicated for right knee arthroplasty since his x-rays of his right knee joint three views shows that he has severe tricompartment degenerative knee joint along with varus deformity and osteophytosis. The patient has very limited motion with -10 degrees of extension, and about 90 degrees of flexion preoperatively. He also has instability of the knee joint. The patient was seen in the preoperative holding area and details of the problem and treatment options were discussed with the patient and his including complications, which are but not restricted to bleeding, infection, neurovascular injury, residual pain, stiffness, anesthetic risks, deep vein thrombosis, pulmonary embolism, myocardial infarction, stroke, mortality less than 1%, intraoperative iatrogenic fractures, periprosthetic fracture, need for further procedures in future, loosening with time, need for revision knee arthroplasty, need for staged knee arthroplasty in case of infection, and the patellofemoral maltracking were all discussed at length as well as anesthetic risks. Despite all these risks, he wishes to proceed with surgery. The patient has been on anticoagulation and has high risk for deep vein thrombosis and allied complications. He will be starting his Plavix after his surgery. He has been cleared by his range mechanic for his surgery as well. The patient signed the consent form. Site was marked. We proceed with IV antibiotics in the form of 2 g of Ancef within an hour of the incision. PROCEDURE IN DETAIL: After written consent obtained, site was marked. The patient was taken to the [facility] OR and was seen by anesthesia. He received a block in the preoperative holding area. Following this, we placed a bump under his right hip joint. Following his general anesthesia, Arevalo catheter was placed. This then followed by application of nonsterile tourniquet to his right thigh. This then followed by prep and drape of the right lower extremity using Hibiclens, DuraPrep, and alcohol. Following this, time-out was done as per standard protocol. Longitudinal incision was marked over the anterior aspect of the right knee joint starting 2 fingers proximal to the patella extending to the tibial tuberosity. This was deepened in layers. This was followed by using a #15 blade we made an anterior incision over the anterior aspect of the knee joint. This was deepened in layers and extensor mechanism was identified. We then proceeded with finding the VMO and medial parapatellar arthrotomy was marked using a Bovie cautery. Following the superior and inferior pole marking using pen to prevent patella baja and hawa in the futu (more content not included)... Normal [facility] POC GLUCOSE LABon 12-27-2020 Glucose [Mass/Vol] 200 mg/dL High 70-100 [facility] Comment on above: Performed By: #### 8 [id number] #### [facility] [address] [place] [address], [place] Glucose [Mass/Vol] 186 mg/dL High 70-100 [facility] Comment on above: Performed By: #### 8 [id number] #### [facility] [address] [place] [address], [place] Glucose [Mass/Vol] 250 mg/dL High 70-100 [facility] Comment on above: Performed By: #### 8 [id number] #### [facility] [address] [place] [address], [place] Glucose [Mass/Vol] 177 mg/dL High 70-100 [facility] Comment on above: Performed By: #### 8 [id number] #### [facility] [address] [place] [address], [place] POC GLUCOSE LABon 12-26-2020 Glucose [Mass/Vol] 230 mg/dL High 70-100 [facility] [facility] Comment on above: Performed By: #### [id number] #### [facility] [address] [place] [address], [place] Glucose [Mass/Vol] 278 mg/dL High 70-100 [facility] Comment on above: Performed By: #### [id number] #### [facility] [address] [place] [address], [facility] Glucose [Mass/Vol] 174 mg/dL High 70-100 [facility] Comment on above: Performed By: #### [id number] #### [facility] [address] [place] [address], [place] Glucose [Mass/Vol] 146 mg/dL High 70-100 [facility] Comment on above: Performed By: #### [id number] #### [facility] [address] [place] [address], [facility] PORTABLE KNEE RIGHT 2 VWSon 12-26-2020 PORTABLE KNEE RIGHT 2 [facility] Department of Radiology [address] [place] [phone] ======== Patient Name: LIZZY YEE : 1945 Sex: M Age: Race: White Pt. Location: [place] [address] Patient Status: I Ordered Date: 12/26/2020 7:05:00 AM Completed Date: 12/26/2020 01:31 PM Requesting Provider: DANO CANO Attending Provider: HONG SCOTT Report Copy To: Signs & Symptoms: Post OP History: Comments: Hardware Evaluation, In PACU; Exam: PORTABLE KNEE RIGHT 2 VWS ======== PORTABLE KNEE RIGHT 2 VWS 12/26/2020 1:31 PM SIGNS AND SYMPTOMS: Post OP TECHNOLOGIST COMMENTS: Post right knee replacement surgery QUESTION FOR THE RADIOLOGIST: Hardware Evaluation, In PACU; PROTOCOL: AP(PA) and Lateral views were obtained. COMPARISON: 08/20/2020 FINDINGS: Total right knee arthroplasty has been performed. Postsurgical change noted with intra-articular and subcutaneous gas. Hardware appears in anatomic alignment without immediate complication. IMPRESSION: * Uncomplicated postoperative appearance of right knee replacement. Electronically signed: José Granados. Transcribed by: [email or web address], User Resident: JOSÉ GRANADOS Electronically Signed by: JOSÉ GRANADOS @ 12/26/2020 03:28 PM I personally read this/these film(s) with this resident Normal [facility] Comment on above: Order Comment: Hardw are Evaluation, In PACU; HIP RIGHT 1 OR 2 VWS WITH PE LVISon 10-05-2020 HIP RIGHT 1 OR 2 VWS WITH PELVIS [facility] Department of Radiology [address] [place] [phone] ======== Patient Name: LIZZY YEE : 1945 Sex: M Age: Race: White Pt. Location: Patient Status: O Ordered Date: 10/05/2020 11:05:00 AM Completed Date: 10/05/2020 11:08 AM Requesting Provider: TY DUMONT Attending Provider: TY DUMONT Report Copy To: Signs & Symptoms: Z96.649 Presence of unspecified artificial hip joint I10 History: Comments: Views (X-RAY, HIP): AP Pelvis, X-Table Lateral Hip , Weight Bearing?: Y Exam: HIP RIGHT 1 OR 2 VWS WITH PELVIS ======== HIP RIGHT 1 OR 2 VWS WITH PELVIS HISTORY: Hip pain, history of prior surgery. COMPARISON: None. IMPRESSION: 1. Right hip prosthesis, no hardware complication or acute abnormality. 2. Osteopenia, no fracture. No malalignment. If there is concern for occult fracture consider cross-sectional imaging. Left hip arthritis with mild joint space narrowing. Electronically signed: Mitul Banks. Transcribed by: [email or web address], User Resident: Electronically Signed by: MITUL BANKS @ 10/05/2020 01:08 PM Normal [facility] Comment on above: Order Comment: Views (X-RAY, HIP): AP Pelvis, X-Table Lateral Hip , Weight Bearing?: Y KNEE LEFT 4VWSon 08-20-2020 KNEE LEFT 4VWS [facility] Department of Radiology [address] [place] [phone] ======== Patient Name: LIZZY YEE : 1945 Sex: M Age: Race: White Pt. Location: Patient Status: O Ordered Date: 08/20/2020 8:10:00 AM Completed Date: 08/20/2020 08:14 AM Requesting Provider: CEDRICK WILD Attending Provider: CEDRICK WILD Report Copy To: Signs & Symptoms: M25.569 Pain in unspecified knee I10 History: [place] Comments: Views (X-RAY, KNEE): AP, Lateral, Tunnel, [place] , Weight Bearing?: Y Exam: KNEE LEFT 4VWS ======== KNEE LEFT 4VWS 08/20/2020 8:14 AM CLINICAL INDICATIONS: M25.569 Pain in unspecified knee I10 TECHNOLOGIST COMMENTS: Patient states having bilateral knee pain. QUESTION FOR THE RADIOLOGIST: Views (X-RAY, KNEE): AP, Lateral, Tunnel, [place] , Weight Bearing?: Y PROTOCOL: AP,Lateral,Tunnel and Tangential views were obtained. COMPARISON: None FINDINGS: No fracture or dislocation. There is complete joint space loss in the medial compartment with subsequent varus angulation of the tibia. Surgical clips are seen in the medial calf. Large osteophytes are also present in all 3 joint compartments worst about the patellofemoral articulation. Small joint effusion is present. IMPRESSION: Severe tricompartmental degenerative changes worst about the medial compartment and patellofemoral compartment. Approved by:Tamera Mcnulty on08/20/2020 8:32 AM. I, Ej Rich,have reviewed the images and reports Electronically signed: Ej Rich. Transcribed by: [email or web address], User Resident: TAMERA MCNULTY Electronically Signed by: EJ RICH @ 08/20/2020 08:41 AM I personally read this/these film(s) with this resident Normal [facility] Comment on above: Order Comment: Views (X-RAY, KNEE): AP, Lateral, Tunnel, [place] , Weight Bearing?: Y KNEE RIGHT 4 [facility] KNEE RIGHT 4 [facility] Department of Radiology [address] [place] [phone] ======== Patient Name: LIZZY YEE : 1945 Sex: M Age: Race: White Pt. Location: Patient Status: O Ordered Date: 08/20/2020 8:10:00 AM Completed Date: 08/20/2020 08:14 AM Requesting Provider: CEDRICK WILD Attending Provider: CEDRICK WILD Report Copy To: Signs & Symptoms: M25.569 Pain in unspecified knee I10 History: [place] Comments: Views (X-RAY, KNEE): AP, Lateral, Tunnel, [place] , Weight Bearing?: Y Exam: KNEE RIGHT 4 S ======== KNEE RIGHT 4 S 08/20/2020 8:14 AM SIGNS AND SYMPTOMS: M25.569 Pain in unspecified knee I10 TECHNOLOGIST COMMENTS: Patient states having bilateral knee pain. QUESTION FOR THE RADIOLOGIST: Views (X-RAY, KNEE): AP, Lateral, Tunnel, [place] , Weight Bearing?: Y PROTOCOL: AP,Lateral,Tunnel and Tangential views were obtained. COMPARISON: None FINDINGS: Narrowing of the weightbearing compartments of the right knee is present, greater medially. Spurring along the margin of the patellar articular surface and adjacent femoral condyle is noted on the lateral and sunrise kidneys. Spurring of tibial spines noted on the notch view. Surgical clips in soft tissues medially suggesting saphenous vein harvesting. IMPRESSION: Tricompartmental arthritis in right knee. Electronically signed: Ej Rich. Transcribed by: [email or web address], User Resident: Electronically Signed by: EJ RICH @ 08/20/2020 08:30 AM Normal [facility] Comment on above: Order Comment: Views (X-RAY, KNEE): AP, Lateral, Tunnel, [place] , Weight Bearing?: Y Vital Signs Date Time Vital Sign Value Performing Clinician Facility 06-05-2023 10:00-0500 Body height 165.1 cm Juancarlos Gan Other [facility] Other 06-05-2023 10:00-0500 Body mass index (BMI) [Ratio] 39.87 kg/m2 Juancarlos Ball Other [facility] Other 06-05-2023 10:00-0500 Body weight 108.68 kg Juancarlos Ball Other [facility] Other 06-05-2023 10:00-0500 Diastolic blood pressure 71 mm[Hg] Juancarlos Ball Other [facility] Other 06-05-2023 10:00-0500 Respiratory rate 20 /min Juancarlos Ball Other [facility] Other 06-05-2023 10:00-0500 Systolic blood pressure 118 mm[Hg] Juancarlos Ball Other [facility] Other 05-06-2023 13:45-0400 Body height 165.1 cm Juancarlos Ball Other [facility] Other 05-06-2023 13:45-0400 Body mass index (BMI) [Ratio] 39.97 kg/m2 Juancarlos Ball Other [facility] Other 05-06-2023 13:45-0400 Body weight 108.95 kg Juancarlos Ball Other [facility] Other 05-06-2023 13:45-0400 Diastolic blood pressure 87 mm[Hg] Juancarlos Ball Other [facility] Other 05-06-2023 13:45-0400 Respiratory rate 16 /min Juancarlos Ball Other [facility] Other 05-06-2023 13:45-0400 Systolic blood pressure 158 mm[Hg] Juancarlos Ball Other [facility] Other 03-10-2023 11:00-0400 Body height 165.1 cm Juancarlos Ball Other [facility] Other 03-10-2023 11:00-0400 Body mass index (BMI) [Ratio] 39.3 kg/m2 Juancarlos Ball Other [facility] Other 03-10-2023 11:00-0400 Body weight 107.14 kg Juancarlos Ball Other [facility] Other 03-10-2023 11:00-0400 Diastolic blood pressure 67 mm[Hg] Juancarlos Ball Other [facility] Other 03-10-2023 11:00-0400 Respiratory rate 16 /min Juancarlos Ball Other [facility] Other 03-10-2023 11:00-0400 Systolic blood pressure 120 mm[Hg] Juancarlos Ball Other [facility] Other 10-16-2022 13:12-0400 Body temperature 97.11 [degF] Jay Mora MD Work Phone: [facility] 10-16-2022 13:12-0400 Diastolic blood pressure 66 mm[Hg] Jay Mora MD Work Phone: [facility] 10-16-2022 13:12-0400 Heart rate 51 /min Jay Mora MD Work Phone: [facility] 10-16-2022 13:12-0400 SaO2% (BldA) [Mass fraction] 96 % Jay Mora MD Work Phone: [facility] 10-16-2022 13:12-0400 Systolic blood pressure 143 mm[Hg] Jay Mora MD Work Phone: [facility] 09-08-2022 13:30-0500 Body height 165.1 cm Juancarlos Ball Other [facility] Other 09-08-2022 13:30-0500 Body mass index (BMI) [Ratio] 39.33 kg/m2 Juancarlos Ball Other [facility] Other 09-08-2022 13:30-0500 Body weight 107.23 kg Juancarlos Ball Other [facility] Other 09-08-2022 13:30-0500 Diastolic blood pressure 70 mm[Hg] Juancarlos Ball Other [facility] Other 09-08-2022 13:30-0500 Respiratory rate 20 /min Juancarlos Ball Other [facility] Other 09-08-2022 13:30-0500 Systolic blood pressure 112 mm[Hg] Juancarlos Ball Other [facility] Other 01-27-2022 13:20-0400 Body height 165.1 cm Jus Bray MD Work Phone: [facility] 01-27-2022 13:20-0400 Body temperature 96.91 [degF] Jus Bray MD Work Phone: [facility] 01-27-2022 13:20-0400 Body weight 104.33 kg Jus Bray MD Work Phone: [facility] 01-27-2022 13:20-0400 Diastolic blood pressure 56 mm[Hg] Jus Bray MD Work Phone: [facility] 01-27-2022 13:20-0400 Heart rate 50 /min Jus Bray MD Work Phone: [facility] 01-27-2022 13:20-0400 SaO2% (BldA) [Mass fraction] 98 % Jus Bray MD Work Phone: [facility] 01-27-2022 13:20-0400 Systolic blood pressure 131 mm[Hg] Jus Bray MD Work Phone: [facility] 10-10-2021 10:46-0400 Body height 165.1 cm Jay Mora MD Work Phone: [facility] 10-10-2021 10:46-0400 Body weight 102.51 kg Jay Mora MD Work Phone: [facility] 10-10-2021 10:46-0400 Diastolic blood pressure 65 mm[Hg] Jay Mora MD Work Phone: [facility] 10-10-2021 10:46-0400 Heart rate 76 /min Jay Mora MD Work Phone: [facility] 10-10-2021 10:46-0400 Systolic blood pressure 137 mm[Hg] Jay Mora MD Work Phone: [facility] 10-10-2021 10:44-0400 Body height 165.1 cm Jus Bray MD Work Phone: [facility] 10-10-2021 10:44-0400 Body weight 102.51 kg Jus Bray MD Work Phone: [facility] 10-10-2021 10:44-0400 Diastolic blood pressure 65 mm[Hg] Jus Bray MD Work Phone: [facility] 10-10-2021 10:44-0400 Heart rate 76 /min Jus Bray MD Work Phone: [facility] 10-10-2021 10:44-0400 SaO2% (BldA) [Mass fraction] 98 % Jus Bray MD Work Phone: [facility] 10-10-2021 10:44-0400 Systolic blood pressure 137 mm[Hg] Jus Bray MD Work Phone: [facility] Encounters Encounter Date Encounter Type Care Provider Facility Start: 06-17-2023 End: 06-17-2023 ambulatory Juancarlos Gan Other [facility] Other Start: 06-17-2023 Telephone encounter Juancarlos Ball [facility] Start: 06-16-2023 End: 06-16-2023 ambulatory Juancarlos Ball Other [facility] Other Start: 06-16-2023 Telephone encounter Juancarlos Ball [facility] Start: 06-09-2023 End: 06-09-2023 ambulatory Juancarlos Ball Other [facility] Other Start: 06-09-2023 Telephone encounter Juancarlos Ball [facility] Start: 06-08-2023 End: 06-08-2023 ambulatory Juancarlos Ball Other [facility] Other Start: 06-08-2023 Telephone encounter Juanacrlos Ball [facility] Start: 06-07-2023 End: 06-07-2023 ambulatory Juancarlos Ball Other [facility] Other Start: 06-07-2023 Telephone encounter Juancarlos Ball [facility] Start: 06-05-2023 End: 06-05-2023 ambulatory Juancarlos Ball Other [facility] Other Start: 06-05-2023 Office outpatient vi sit 25 minutes Juancarlos Ball [facility] Start: 05-27-2023 End: 05-27-2023 ambulatory Juancarlos Ball Other [facility] Other Start: 05-27-2023 Telephone encounter Juancarlos Ball [facility] Start: 05-17-2023 End: 05-17-2023 ambulatory Juancarlos Ball Other [facility] Other Start: 05-17-2023 Telephone encounter Juancarlos Ball [facility] Start: 05-15-2023 End: 05-15-2023 ambulatory Juancarlos Ball Other [facility] Other Start: 05-15-2023 Telephone encounter Juancarlos Ball [facility] Start: 05-07-2023 End: 05-07-2023 ambulatory Juancarlos Ball Other [facility] Other Start: 05-07-2023 Telephone encounter Juancarlos Gan [facility] Start: 05-06-2023 End: 05-06-2023 ambulatory Juancarlos Ball Other [facility] Other Start: 05-06-2023 Office outpatient vi sit 25 minutes Juancarlos Ball [facility] Start: 05-06-2023 Telephone encounter Juancarlos Ball [facility] Start: 04-22-2023 End: 04-22-2023 ambulatory [facility] Start: 04-04-2023 End: 04-04-2023 ambulatory Juancarlos Ball Other [facility] Other Start: 04-04-2023 Telephone encounter Juancarlos Ball [facility] Start: 03-10-2023 End: 03-10-2023 ambulatory Juancarlos Gan Other [facility] Other Start: 03-10-2023 Office outpatient vi sit 25 minutes Juancarlos Ball [facility] Start: 12-24-2022 End: 12-24-2022 ambulatory Juancarlos Gan Other [facility] Other Start: 12-24-2022 Telephone encounter Juancarlos Gan [facility] Start: 12-17-2022 End: 12-18-[address] NYA BRUMFIELD . Facility:[facility] Start: 12-16-2022 End: 12-16-2022 ambulatory NARENDRANATH LAKSHMIPATHY . Facility:[facility] Start: 12-02-2022 End: 12-03-2022 ambulatory Nya BRUMFIELD Facility: [facility] Start: 11-28-2022 End: 11-29-2022 ambulatory MANAV GARY . Facility:[facility] Start: 11-28-2022 End: 11-29-2022 ambulatory NARENDRANATH LAKSHMIPATHY . Facility:[facility] Start: 11-11-2022 End: 11-11-2022 ambulatory NARENDRANATH LAKSHMIPATHY . Facility:[facility] Start: 10-28-2022 End: 10-29-[address] EVAN LAMAS . Facility: Start: 10-16-2022 End: 10-16-2022 ambulatory JAY MORA Facility:[facility] Start: 10-16-2022 End: 10-16-2022 Patient encounter procedure Jay Mora MD Work Phone: General Surgery Comment on above: Ventral incisional h ernia (Primary Dx) Start: 10-11-2022 ambulatory JAY MORA Facility:[facility] Start: 10-11-2022 End: 10-11-2022 Subsequent hospital visit by physician Ct Prep [facility] Comment on above: 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] Start: 10-06-2022 Telephone encounter Jay patel MD Work Phone: General Surgery Comment on above: Patient Question Start: 09-16-2022 Telephone encounter Juancarlos Gan [facility] Start: 09-16-2022 End: 09-17-2022 ambulatory Nya BRUMFIELD [facility] Other Start: 09-16-2022 End: 09-27-2022 Pre-admission assessment Nya BRUMFIELD [facility] Start: 09-12-2022 Telephone encounter Juancarlos BELL [facility] Start: 09-12-2022 End: 09-13-[address] JUANCARLOS GAN [facility] [employer] Other Start: 09-08-2022 End: 09-08-2022 ambulatory Juancarlos Gan Other [facility] Other Start: 09-08-2022 Patient encounter procedure Juancarlos BURKS [facility] Start: 07-31-2022 End: 08-01-[address] EVAN LAMAS . Facility:[facility] Start: 07-03-2022 Encounter for preprocedural laboratory examination DR EVAN LAMAS . [facility] Start: 07-01-2022 End: 07-01-[address] EVAN LAMAS . Facility:[facility] Start: 06-27-2022 End: 06-28-[address] EVAN LAMAS . Facility:[facility] Start: 06-27-2022 End: 06-28-2022 Encounter for preprocedural laboratory examination DR EVAN LAMAS . Facility:[facility] Start: 05-29-2022 End: 05-30-[address] EVAN LAMAS . Facility:[facility] Start: 05-19-2022 End: 05-19-2022 ambulatory [facility] Start: 05-13-2022 End: 05-13-[address] EVAN LAMAS . Facility:[facility] Start: 04-24-2022 End: 04-25-[address] EVAN LAMAS . Facility:[facility] Start: 04-08-2022 End: 04-08-[address] EVAN LAMAS . Facility:[facility] Start: 03-25-2022 End: 03-26-[address] EVAN LAMAS . Facility:[facility] Start: 03-18-2022 End: 03-18-[address] JUANCARLOS GAN Facility:[facility] Start: 03-12-2022 End: 04-16-[address] JUANCARLOS GAN Facility:[facility] Start: 03-04-2022 End: 03-05-[address] JUANCARLOS GAN Facility:[facility] Start: 02-22-2022 End: 02-23-[address] JUANCARLOS GAN Facility:[facility] Start: 01-27-2022 End: 01-27-2022 ambulatory JUS BRAY Facility:[facility] Start: 01-27-2022 End: 01-27-2022 Patient encounter procedure Jus Bray MD Work Phone: Colorectal Surgery Comment on above: Polyposis of colon ( Primary Dx); Incisional hernia, without obstruction or gangrene Start: 10-11-2021 Telephone encounter Shilpa Storm MD Work Phone: [facility] Comment on above: Research Start: 10-10-2021 End: 10-10-2021 Patient encounter procedure Jay Mora MD Work Phone: General Surgery Comment on above: Ventral incisional h ernia (Primary Dx) Polyposis of colon ( Primary Dx) Start: 12-26-2020 End: 12-29-2020 ambulatory JUANCARLOS GAN Facility:[facility] Start: 10-19-2020 End: 10-20-2020 ambulatory JUANCARLOS GAN Facility:[facility] Procedures Date Procedure Procedure Detail Performing Clinician Start: 10-04-2021 Partial resection of colon Nya SAVAGEL Start: 10-04-2021 Repair of ventral hernia Nya SAVAGEL Start: 04-08-2021 Colonoscopy Nya NI LL Comment on above: Transverse and desce nding colon polyps Start: 12-26-2020 ANESTH KNEE ARTHROPLASTY JUANCARLOS GAN Start: 12-26-2020 Arthrp kne condyle&p latu medial&lat compartments VITHAL SHENDGE Start: 12-26-2020 JOINT DEVICE (IMPLANTABLE) JUANCARLOS GAN Start: 11-17-2017 Colonoscopy Nya NI LL Comment on above: 2004 (2), 2005, 2007 , 2009, 2011, 05/2015, 11/2017 Start: 03-06-2016 Transurethral prostatectomy Nya SAVAGEL Start: 02-18-2016 Cystoscopy Nya NI LL Start: 01-16-2016 Urodynamic studies [place] ael NILL Start: 07-20-2012 Hernia repair Nya N ILL Start: 08-26-2007 Prosthetic arthropla sty of the hip Nya NILL Start: 08-20-2007 Hernia of anterior abdominal wall (disorder) Nya NILL Start: 04-19-2004 Transrectal biopsy o f prostate using ultrasound guidance Nya NILL Atherectomy Nya NILL Comment on above: with stent 2006 Bilateral vasectomy Nya NILL 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 [place] ael NILL Plan of Treatment Date Care Activity Detail Author Start: 10-10-2022 End: 11-09-2022 Ct abdomen & pelvis w/o contrast material CT ABD/PEL WO IVCON Radiology Routine Ventral incisional hernia Expected: 10/10/2022, Expires: 11/09/2022 [facility] Work Phone: Comment on above: Expected: 10/10/2022 , Expires: 11/09/2022 Start: 07-20-2022 ADVANCE DIRECTIVE DISCUSSION ADVANCE DIRECTIVE DISCUSSION [facility] Start: 07-20-2022 DEPRESSION ASSESSMENT DEPRESSION ASS ESSMENT [facility] Start: 03-20-2022 Influenza vaccination INFLUENZA (#1) [facility] Start: 03-13-2022 Hemoglobin A1c/Hemoglobin.total in Blood HBA1C [facility] Start: 01-04-2022 COVID-19 VACCINE (5 - Booster for Pfizer series) COVID-19 VACCINE (5 - Booster for Pfizer series) [facility] Start: 07-20-2021 ADVANCE DIRECTIVE DISCUSSION ADVANCE DIRECTIVE DISCUSSION [facility] Start: 2009 PNEUMOVAX AGE 65 AND OVER WITH 5YR LOOKBACK (#1) PNEUMOVAX AGE 65 AND OVER WITH 5YR LOOKBACK (#1) [facility] Start: 1994 SHINGRIX VACCINE (1 of 2) SHINGRIX VACCINE (1 of 2) [facility] Start: 12-31-1963 Urine microalbumin profile DTAP,TDAP,TD (1 - Tdap) [facility] Start: 1962 ANNUAL PCP TEAM KILN FURNITURE SAW TENDER MACY DISEASE VISIT ANNUAL PCP TEAM CHRONIC DISEASE VISIT [facility] Start: 1962 BP CONTROLLED (<130/80) BP CON TROLLED (<130/80) [facility] Start: 1962 Hepatitis B surface antibody level LDL CHOLESTEROL [facility] Start: 1962 HEPATITIS C SCREENING HEPATITIS C SC ILEANA [facility] Start: 1956 Adult depression screening assessment DEPRESSION SCREENING [facility] Start: 1954 3 comp foot exam completed DIABETIC FOOT EXAM [facility] Start: 1954 Hepatitis B screening URINE ALBUMIN:CREATININE RATIO [facility] Start: 1954 Hepatitis C antibody , confirmatory test DILATED RETINAL EXAM [facility] Start: 1950 PNEUMOCOCCAL: 65+ (1 - PCV) PNEUMOCOCCAL: 65+ (1 - PCV) [facility] End: 10-11-2022 Ct abdomen & pelvis w/o contrast material [facility] Work Phone: Comment on above: 1 Occurrences starti ng 10/11/2022 until 10/11/2022 End: 11-15-2023 Ct abdomen & pelvis w/o contrast material CT ABD/PEL WO IVCON Radiology Routine Ventral incisional hernia 1 Occurrences starting 10/16/2022 until 11/15/2023 [facility] Work Phone: Comment on above: 1 Occurrences starti ng 10/16/2022 until 11/15/2023 [facility] Immunizations Immunization Date Immunization Notes Care Provider [facility] 05-20-2022 influenza virus vaccine, unspecified formulation Nya BRUMFIELD [facility] 05-16-2022 influenza, high dose seasonal, preservative-free Juancarlos Gan Other [facility] Other 05-16-2022 influenza virus vaccine, split virus (incl. purified surface antigen) Juancarlos Gan Other [employer] Other 04-15-2022 SARS-CoV-2 (COVID-19 ) [id number] Nya BRUMFIELD [facility] 11-09-2021 COVID-19 Vaccine Pfi zer - Documentation Purposes Only Juancarlos Gan Other [facility] [facility] [employer] Other 11-09-2021 SARS-CoV-2 mRNA ([id number] se) vaccine Nya BRUMFIELD [facility] 04-19-2021 SARS-CoV-2 (COVID-19 ) mRNA BNT-162b2 vax Nya BRUMFIELD [facility] Comment on above: Result Comment: 2022: [id number] 09-05-2020 SARS-CoV-2 (COVID-19 ) mRNA BNT-162b2 [employer] [facility] Comment on above: Result Comment: 2022: [id number] 08-15-2020 COVID-19 Vaccine Moderna - Documentation Purposes Only Juancarlos Gan Other [employer] Other 08-15-2020 SARS-CoV-2 (COVID-19 ) mRNA BNT-162b2 [employer] [facility] Comment on above: Result Comment: 2022: [id number] 03-28-2020 influenza virus vaccine, split virus (incl. purified surface antigen) Juancarlos Gan Other [facility] Other 05-17-2019 influenza virus vaccine, split virus (incl. purified surface antigen) Juancarlos Gan Other [employer] Other 05-13-2018 influenza virus vaccine, split virus (incl. purified surface antigen) Juancarlos Gan Other [employer] Other 04-25-2015 influenza virus vaccine, split virus (incl. purified surface antigen) Juancarlos Gan Other [employer] Other 04-25-2015 pneumococcal conjuga te vaccine, 13 valent Juancarlos Gan Other [employer] Other 04-19-2014 pneumococcal polysaccharide vaccine, 23 valent Juancarlos Gan Other [employer] Other 04-20-2013 tetanus and diphther ia toxoids, adsorbed, preservative free, for adult use (5 Lf of tetanus toxoid and 2 Lf of diphtheria toxoid) Juancarlos Gan Other [employer] Other 04-21-2012 pneumococcal polysaccharide vaccine, 23 valent Juancarlos Gan Other [employer] Other Payers Date Payer Category Payer Private Health Insurance [facility] AARP SUPPLEMENT [id number] 2020-Present [phone] [address] [place] [address] Indemnity [id number] 2020 Private Health Insurance [facility] AARP SUPPLEMENT [id number] 2020-Present [phone] [address] [place] [address] Indemnity [id number] 2009 Medicare MEDICARE MEDICAR E A AND B [id number] 2009-Present [phone] [place] [address] Medicare [id number] 2009 Medicare MEDICARE MEDICAR E A AND B [id number] 2009-Present [phone] [place] [address] Medicare [id number] 1959 Medicare [id number] 1959 Unknown [id number] 1944 Unknown [id number] 2.16.840.1.028376.3.579.2 .647 1944 Unknown [id number] 2.16.840.1.457785.3.579.2 .647 1944 Unknown [id number] 2.16.840.1.589609.3.579.2 .593 1944 Unknown [id number] 2.16.840.1.727235.3.579.2 .593 1944 Unknown [id number] 2.16.840.1.714891.3.579.2 .593 1944 Unknown [id number] 2.16.840.1.498571.3.579.2 .593 1944 Unknown [id number] 2.16.840.1.595960.3.579.2 .593 1944 Unknown [id number] 2.16.840.1.676581.3.579.2 .593 1944 Unknown [id number] 2.16.840.1.830789.3.579.2 .593 1944 Unknown [id number] 2.16.840.1.106017.3.579.2 .593 1944 Unknown [id number] 2.16.840.1.977479.3.579.2 .593 1944 Unknown [id number] 2.16.840.1.673632.3.579.2 .593 1944 Unknown [id number] 2.16.840.1.759703.3.579.2 .593 1944 Unknown [id number] 2.16.840.1.630054.3.579.2 .593 1944 Unknown [id number] 2.16.840.1.617058.3.579.2 .593 1944 Unknown [id number] 2.16.840.1.380696.3.579.2 .593 1944 Unknown [id number] 2.16.840.1.431900.3.579.2 .593 1944 Unknown [id number] 2.16.840.1.897516.3.579.2 .593 1944 Unknown [id number] 2.16.840.1.354736.3.579.2 .593 1944 Unknown [id number] 2.16.840.1.493919.3.579.2 .593 1944 Unknown [id number] 2.16.840.1.532138.3.579.2 .593 1944 Unknown [id number] 2.16.840.1.137098.3.579.2 .727 1944 Unknown [id number] 2.16.840.1.232456.3.579.2 .727 1944 Unknown [id number] 2.16.840.1.910494.3.579.2 .72 Unknown [id number] Unknown [id number] 2..840.1.213252.19 Social History Date Type Detail Facility Start: 05-21-2021 End: 10-16-2022 Tobacco smoking status NHIS Ex-smoker [facility] End: 07-20-1994 History of tobacco use Current smoker [facility] End: 07-20-1994 History of tobacco use Cigar Smoker [facility] Start: 05-21-2021 End: 10-16-2022 Tobacco use and exposure Smokeless tobacco non-user [facility] Start: 10-10-2021 End: 10-16-2022 Alcohol intake Ex-drinker (finding) [facility] Start: 05-21-2021 End: 10-16-2022 Tobacco Comment Quit 15+ years [facility] Start: 1945 Sex Assigned At Not on file C [facility] Start: 08-25-2021 End: 09-24-2021 Exposure to SARS-CoV-2 (event) Not sure [facility] Start: 09-16-2022 Tobacco smoking status Never s moked tobacco (finding) [facility] Tobacco smoking status Former sm okeless tobacco user, quit more than 30 days ago [facility] Sex Assigned At Male [facility] Medical Equipment Procedure Code Equipment Code Equipment Origin al Text Equipment Identifier Dates Mesh Parietene Polypropylene Macroporous [id number] Surgical Monofilament - [id number] Start: 09-24-2021 Clinical Notes 12-29-2020 to 06-16-2023 Note Date & Type Note Facility 06-16-2023 Evaluation note Encounter Date Diagnosis Assessment Notes May, Type 2 diabetes mellitus with hyperglycemia , without long-term current use of insulin (ICD-10 - E11.65) [employer] Other 11-28-2023 Evaluation note* Encounter Date Diagnosis Assessment Notes Treatment Notes Treatment Clinical Notes May, Primary hypertension (ICD-10 - I10) [employer] Other 11-21-2023 Evaluation note* Encounter Date Diagnosis Assessment Notes Treatment Notes Treatment Clinical Notes May, Type 2 diabetes mellitus with hyperglycemia, without long-term current use of insulin (ICD-10 - E11.65) [employer] Other 11-17-2023 Evaluation note* Encounter Date Diagnosis Assessment Notes Treatment Notes Treatment Clinical Notes May, ASHD (arteriosclerotic heart disease) (ICD-10 - I25.10) This patient is stable without activity related CP, dyspnea or lightheadedness. They are instructed to continue exercise and AHA diet plan. Continue secondary prevention measures. May, Type 2 diabetes mellitus with hyperglycemia, without long-term current use of insulin (ICD-10 - E11.65) This patient is following a comprehensive diabetic treatment plan. They are checking their feet daily for calluses and nonhealing ulcers. They are being seen for yearly dilated eye examinations. Goals: SBP less than 130, LDL less than 100, FBS less than 140, A1C less than 7%. They are checking their BS daily, will which are reviewed at the office visit. Continue regular routine monitoring of A1C,] Microalbumin, Dilated eye exam and Foot exam Planning on titrating Metformin to 1000mg bid May, Type 2 diabetes mellitus with diabetic polyneuropathy, without long-term current use of insulin (ICD-10 - E11.42) Inspect feet daily for cuts and calluses.Recommend diabetic shoes and inserts to prevent callus formation.Fall precautions. May, Type 2 diabetes mellitus with diabetic peripheral angiopathy without gangrene, without long-term current use of insulin (ICD-10 - E11.51) s/p angioplasty RLE w/o complications. Increase walking as tolerated. Inspect feet daily for cuts. May, Primary hypertension (ICD-10 - I10) This patient is instructed to consume a healthy, low-fat, low-salt diet. They are also encouraged to continue exercise to achieve/maintain a normal BMI. May, Elevated cholesterol (ICD-10 - E78.00) Instructed on diet and exercise with continued statin therapy.Discussed the beneficial effects of lowering cholesterol in reducing the risk for cerebrovascular and cardiovascular disease. May, Obstructive sleep apnea (ICD-10 - G47.33) This patient is aware of the benefits associated with BHUPENDRA: With continued use, the patient reduces the risk for CT, CVA, HTN, cardiac dysrhythmias and sudden cardiac deaths.The patient is also aware of the association between BHUPENDRA and morning headaches, daytime somnolence, fatigue and obesity, which also has been improved with continued use.The patient is compliant with treatment, wearing the equipment every night for greater than 4 hours.The patient is instructed to continue use of the CPAP for BHUPENDRA treatment. May, NARINDER (generalized anxiety disorder) (ICD-10 - F41.1) Healthy diet and exercise, keep active No change in medical therapy May, Familial polyposis (ICD-10 - D12.6) Surveillance scopes UTD. No change in bowel habits. No melena or hematochezia. Chronically loose stools, increase fiber May, Morbid (severe) obesity due to excess calories (ICD-10 - E66.01) This patient has been instructed on a low-fat, high-fiber diet. They are instructed to reduce calories, portion sizes and snacks. It is recommended that they exercise for 30 minutes, 3-5 times weekly. May, Body mass index [BMI] 39.0-39.9, adult (ICD-10 - Z68.39) [employer] Other 11-08-2023 Evaluation note* Encounter Date Diagnosis Assessment Notes Treatment Notes Treatment Clinical Notes May, Primary hypertension (ICD-10 - I10) [employer] Other 10-29-2023 Evaluation note* Encounter Date Diagnosis Assessment Notes Treatment Notes Treatment Clinical Notes Apr, Type 2 diabetes mellitus with hyperglycemia, without long-term current use of insulin (ICD-10 - E11.65) Apr, Primary hypertension (ICD-10 - I10) [employer] Other 10-19-2023 Evaluation note* Encounter Date Diagnosis Assessment Notes Treatment Notes Treatment Clinical Notes Apr, Type 2 diabetes mellitus with hyperglycemia, without long-term current use of insulin (ICD-10 - E11.65) [employer] Other 10-18-2023 Evaluation note* Encounter Date Diagnosis Assessment Notes Treatment Notes Treatment Clinical Notes Apr, ASHD (arteriosclerotic heart disease) (ICD-10 - I25.10) This patient is stable without activity related CP, dyspnea or lightheadedness. They are instructed to continue exercise and AHA diet plan. Continue secondary prevention measures. Internet Marketing Analyst suggesting SGLT-2 for dual benefit w/ ASHD and DM Apr, Primary hypertension (ICD-10 - I10) This patient is instructed to consume a healthy, low-fat, low-salt diet. They are also encouraged to continue exercise to achieve/maintain a normal BMI. Increase Lisinopril to 20mg qd Apr, Type 2 diabetes mellitus with hyperglycemia, without long-term current use of insulin (ICD-10 - E11.65) This patient is following a comprehensive diabetic treatment plan. They are checking their feet daily for calluses and nonhealing ulcers. They are being seen for yearly dilated eye examinations. Goals: SBP less than 130, LDL less than 100, FBS less than 140, A1C less than 7%. They are checking their BS daily, will which are reviewed at the office visit. Continue regular routine monitoring of A1C,] Microalbumin, Dilated eye exam and Foot exam I reviewed Cardiology and did suggest SGLT-2 - cost may be an issue - will look into cost and switch for Metformin Apr, Benign paroxysmal positional vertigo due to bilateral vestibular disorder (ICD-10 - H81.13) Symptoms have resolved, Hallpike's maneuver negative. No additional treatment necesssary Had cerumen cleared, which may have contributed. Known SNHL, which may have contributed. 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 Inspect feet daily for cuts. Continue secondary prevention measures. Scheduled post op JAMIR [employer] Other 10-18-2023 Evaluation note* Encounter Date Diagnosis Assessment Notes Treatment Notes Treatment Clinical Notes Apr, Type 2 diabetes mellitus with hyperglycemia, without long-term current use of insulin (ICD-10 - E11.65) [employer] [facility] Chief Complaint: Patient here for 1 year follow up CAD, PVD, and hypertension. He underwent LE angiogram last month with Dr. Mccurdy of [facility]. He sees him for follow up next week. Denies chest pain, claudication, and LE edema. HPI: Lizzy Yee is a 77 y.o. male History of coronary artery disease, prior bypass surgery, peripheral vascular disease including popliteal occlusion and carotid stenosis here in routine follow-up He is doing well from a cardiac standpoint and denies new symptoms. His shortness of breath is stable. He denies chest pain. He apparently was having worsening lower extremity symptoms; he underwent percutaneous intervention and revascularization of his occluded popliteal artery with vascular surgery. Cardiology ROS: Review of Systems Cardiovascular: Positive for dyspnea on exertion. Musculoskeletal: Positive for arthritis, back pain, joint pain, muscle weakness and myalgias. All other systems reviewed and are negative. Past Medical History He has a past medical history of Coronary artery disease, Diabetes mellitus ([facility]), Hypertension, PVD (peripheral vascular disease) ([facility]), and Sleep apnea. Surgical History He has a past surgical history that includes CTA heart coronary (09/03/2016); Coronary artery bypass graft (08/01/2016); Hernia repair; Colon surgery; Cardiac catheterization (07/17/2016); and Total hip arthroplasty. Social History He reports that he has quit smoking. His smoking use included cigarettes. He has never used smokeless tobacco. He reports that he does not currently use alcohol. No history on file for drug use. Family History Family History Problem Relation Name Age of Onset Coronary artery disease Mother Coronary artery disease Brother Allergies Patient has no known allergies. Medications Current Outpatient Medications: aspirin 81 mg EC tablet, in the morning., Disp: , Rfl: atorvastatin (Lipitor) 80 mg tablet, Take 80 mg by mouth at bedtime., Disp: , Rfl: carvedilol (Coreg) 12.5 mg tablet, Take 12.5 mg by mouth with breakfast and with evening meal., Disp: , Rfl: clopidogrel (Plavix) 75 mg tablet, Take 1 tablet (75 mg) by mouth in the morning., Disp: 90 tablet, Rfl: 3 glipiZIDE (Glucotrol) 5 mg tablet, glipizide 5 mg tablet TAKE 1 TABLET BY MOUTH EVERY DAY 30 MINUTES PRIOR TO BREAKFAST, Disp: , Rfl: hydroCHLOROthiazide (HYDRODiuril) 25 mg tablet, Take 25 mg by mouth in the morning., Disp: , Rfl: lisinopril 5 mg tablet, Take 5 mg by mouth in the morning., Disp: , Rfl: magnesium oxide 500 mg tablet, in the morning., Disp: , Rfl: metFORMIN (Glucophage) 1,000 mg tablet, metformin 1,000 mg tablet TAKE 1 TABLET BY MOUTH TWICE A DAY BEFORE BREAKFAST AND EVENING MEAL, Disp: , Rfl: pantoprazole (ProtoNix) 40 mg EC tablet, pantoprazole 40 mg tablet,delayed release TAKE 1 TABLET BY MOUTH DAILY ON EMPTY STOMACH FOLLOWED IN 30 MINUTES BY BREAKFAST, Disp: , Rfl: sertraline (Zoloft) 100 mg tablet, sertraline 100 mg tablet TAKE 1 TABLET BY MOUTH EVERYDAY AT BEDTIME, Disp: , Rfl: tamsulosin (Flomax) 0.4 mg 24 hr capsule, Take 0.4 mg by mouth in the morning., Disp: , Rfl: Last Recorded Vitals BP 133/65 (BP Location: Left arm, Patient Position: Sitting) Pulse 56 Ht 1.651 m (5' 5 ) Wt 108 kg (238 lb) SpO2 95% BMI 39.61 kg/m??? Physical Examination: GENERAL: alert and oriented x3, well developed, in no acute distress. HEAD: atraumatic, normocephalic. EYES: BRIANDA, EOMI. NECK: trachea midline, no JVD present, no carotid bruits present. CARDIAC: S1, S2 present. RRR. No murmur, rubs, or gallops. RESPIRATORY: CTAB, no increased effort of breathing, no rales, rhonchi, or wheezing. ABDOMEN: soft, nontender, nondistended. EXTREMITIES: no lower extremity edema, peripheral pulses are 2+ bilaterally. No rash/skin discoloration present. NEURO: strength/sensation equal and symmetric in bilateral upper and lower extremities. PSYCH: appropriate mood, affect, and judgement. Investigations: Date of Procedure: 04/02/2023. Pre-op diagnosis: Right lower extremity rest pain. Post-op diagnosis: Same. Procedure: Moderate sedation times 60 minutes. Ultrasound-guided access of left common femoral artery. Selective right lower extremity angiogram of the 3rd order. Angioplasty of right popliteal artery with drug coated balloon. Shockwave of right popliteal artery occlusion. Deployment of Mynx closure device over the left common femoral artery. Surgeon: Jyoti Mccurdy Primary Commission Clerk: None. Anesthesia: Local with 1% lidocaine and sedation. EBL: 10 cc Complications: None. 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 Procedure: Patient was brought to the angiogram suite. He was placed on the table in supine position. Left groin area was prepped and draped in the usual sterile fashion. Patient was given (more content not included)...[facility]08-22-2023 Evaluation note* Encounter Date Diagnosis Assessment Notes Treatment Notes Treatment Clinical Notes Feb, ASHD (arteriosclerotic heart disease) (ICD-10 - I25.10) This patient is stable without activity related CP, dyspnea or lightheadedness. They are instructed to continue exercise and AHA diet plan. Feb, Primary hypertension (ICD-10 - I10) This patient is instructed to consume a healthy, low-fat, low-salt diet. They are also encouraged to continue exercise to achieve/maintain a normal BMI. Feb, Type 2 diabetes mellitus with hyperglycemia, without long-term current use of insulin (ICD-10 - E11.65) This patient is following a comprehensive diabetic treatment plan. They are checking their feet daily for calluses and nonhealing ulcers. They are being seen for yearly dilated eye examinations. Goals: SBP less than 130, LDL less than 100, FBS less than 140, AC and A1C less than 7%. They are checking their BS daily, will which are reviewed at the office visit. Continue regular routine monitoring of A1C,] Microalbumin, Dilated eye exam and Foot exam Feb, Type 2 diabetes mellitus with diabetic polyneuropathy, without long-term current use of insulin (ICD-10 - E11.42) Inspect feet daily for cuts and calluses.Recommend diabetic shoes and inserts to prevent callus formation.Fall precautions. Feb, Controlled diabetes mellitus with diabetic peripheral angiopathy without gangrene (ICD-10 - E11.51) Activity limiting claudication of the RLE. Encouraged to walk daily. Continue primary prevention measures. Inspect feet daily for cuts Scheduled for angiogram and possible antioplasty Feb, Elevated cholesterol (ICD-10 - E78.00) Instructed on diet and exercise with continued statin therapy.Discussed the beneficial effects of lowering cholesterol in reducing the risk for cerebrovascular and cardiovascular disease. Feb, Left carotid artery stenosis (ICD-10 - I65.22) US: right <50%, left 50-69% - 10/2020 US: right <50%, left 80-90% - 08/2022 Stable, continue primary prevention measures f/u Vascular surgery for surveillance US Feb, NARINDER (generalized anxiety disorder) (ICD-10 - F41.1) Healthy diet, keep active and continue medication No ER visits of episodes of panic Feb, Obstructive sleep apnea (ICD-10 - G47.33) This patient is aware of the benefits associated with BHUPENDRA: With continued use, the patient reduces the risk for CT, CVA, HTN, cardiac dysrhythmias and sudden cardiac deaths.The patient is also aware of the association between BHUPENDRA and morning headaches, daytime somnolence, fatigue and obesity, which also has been improved with continued use.The patient is compliant with treatment, wearing the equipment every night for greater than 4 hours.The patient is instructed to continue use of the PAP for BHUPENDRA treatment. Feb, Gastroesophageal reflux disease with esophagitis without hemorrhage (ICD-10 - K21.00) Diet instructions: Smaller portions, avoid eating and laying flat, avoid eating or drinking prior to bedtime. Weight loss. Feb, Morbid (severe) obesity due to excess calories (ICD-10 - E66.01) This patient has been instructed on a low-fat, high-fiber diet. They are instructed to reduce calories, portion sizes and snacks. It is recommended that they exercise for 30 minutes, 3-5 times weekly. Feb, Body mass index [BMI ] 39.0-39.9, adult (ICD-10 - Z68.39) [employer] Other 05-31-2023 NoteOPERATIVE NOTE OPERATION DATE: 11/29/2022 PREOPERATIVE DIAGNOSIS: Personal history of colon polyps, status post subtotal colectomy with ileosigmoid anastomosis. POSTOPERATIVE DIAGNOSIS: Personal history of colon polyps, status post subtotal colectomy with ileosigmoid anastomosis. PROCEDURE: Colonoscopy to ileosigmoid anastomosis. SURGEON: Nya Brumfield M.D. ANESTHESIA: Monitored anesthesia care. ESTIMATED BLOOD LOSS: Zero. INDICATIONS AND CONSENT: Patient is a 76-year-old male history of multiple colon polyps, status post subtotal colectomy with ileosigmoid anastomosis in September of 2021. Now presents for surveillance colonoscopy. Indications, risks, benefits, alternatives of proceeding with colonoscopy were explained extensively to the patient, including the risks of bleeding, colon perforation or anesthetic complications. All of his questions were answered. Informed consent was obtained. PROCEDURE: Patient brought to the operating room, placed in the left lateral decubitus position. Monitored anesthesia care was provided. Rectal exam was performed which showed no masses or blood. The scope was inserted into the anal canal. Under direct visualization was advanced. It was advanced to the ileosigmoid anastomosis without difficulty. There was noted to be some green liquid stool throughout the colon that was partially irrigated clear. Upon withdrawal of the scope, mucosal surfaces were carefully examined. There were no mass lesions or inflammatory changes. No diverticulosis. The scope was retroflexed in the anal canal. There was no significant hemorrhoidal disease. The scope was then withdrawn. Patient tolerated procedure well, was sent to recovery room in good condition. Follow up colonoscopy should be in three years. CC: Juancarlos Gan D.O.[id number] NotePROCEDURE: XR HIP LT 2 3V WO PELVIS HISTORY: Pain of left hip joint COMPARISON: None. FINDINGS: BONES:No fracture, acute abnormality, or significant arthropathy. SOFT TISSUES:No visible soft tissue swelling. EFFUSION:None visible. OTHER: Negative. IMPRESSION: 1. No acute bone abnormality. 2. Mild degenerative joint disease. Electronically authenticated by: GABY PADILLA Date: 2022-11-28 13:08[facility]04-11-2023 NoteCONSULTATION CONSULTATION DATE: 10/28/2022 TO: Juancarlos Gan D.O. CHIEF COMPLAINT: Patient presented with the chief complaint of left knee pain. HISTORY: He reports the pain being 5-7/10 pain, sharp in character, increased with activity such as standing, walking and performing transitioning maneuvers. He feels most comfortable in the semi-recumbent position. Does report having stiffness on his left knee joint after being sedentary for even short periods of time. After ambulating, he reports that the stiffness improves, but he still has pain with weight bearing maneuvers. EXAM: Notable for the patient having no clinical radiculopathy or myelopathy involving his lower extremities. Patient did have edema of his left knee joint, mainly on the medial aspect. I could not appreciate any ligamental laxity involving his left knee joint. He had pain with medial compartment loading maneuvers, as well as point tenderness overlying the medial compartment of his left knee and he had somewhat a myofascial spasm of the hamstring and gastrocnemius muscle occurring in the medial and lateral aspect of his left knee. IMPRESSION: Patient has chronic pain secondary to left knee osteoporosis. RECOMMENDATIONS: I recommend proceeding with a left knee joint injection under fluoroscopic guidance using Durolane. He has undergone one left knee joint corticosteroid injection on 07/31/2022. He reports his pain improved by at least 75% during the immediate post procedural period, lasting for approximately one month's time, with recurrence of pain back to his baseline. Since he has failed conservative therapy, recommend proceeding with left knee joint injection under fluoroscopic guidance using Durolane. We will also inject Omnipaque dye to confirm needle tip placement. In the interim, I have asked him to continue with baclofen and Tylenol as prescribed. As part of providing excellent, safe, comprehensive care, the following was completed at our patient's visit: 1. A medication reconciliation and review to ensure accurate knowledge of current/active medications, including asking our patients to inform us about any [id number] medications or herbal remedies/nutritional supplements/alternative remedies. 2. A review to specifically ensure our patients have had annual screening for: elevated body mass index (BMI, see intake chart for exact total), tobacco use, screening for depression, and screening for unhealthy alcohol use. When screening is concerning, patients are provided with education and the specific recommendation to discuss the concerning health issue and treatment options with their primary care provider.[facility] [id number] NoteHNO ID: [id number] Author: Jay Mora MD Service: ? Author Type: Physician Type: Progress Notes Filed: 10/16/2022 3:05 PM Note Text: [facility] - Follow Up Visit Assessment/Plan: Lizzy Yee is a 75 year old male with a history of HTN, HLD, CAD, BPM, Anxiety, Obesity (BMI 38), BHUPENDRA, and colonic polyposis syndrome s/p subtotal colectomy with concomitant abdominal wall reconstruction with Dr. Bray on 09/24/21 and is now 1 year post op. He looks and feels well. I was concerned that he may have a subxiphoid recurrence based on his CT scan but neither the patient of I feel a bulge on exam so I think that this represents a bridged repair and that despite our primary closure with figure of eights, the rectus muscles just beneath the xiphoid pulled about do to the significant tension in the area, but that the underlying mesh and repair remain intact. We will continue to monitor for any evidence of symptomatic bulging in the area. - Follow up in one year with CT abdomen/pelvis (PO contrast, no need for IV - ordered) Subjective: Lizzy reports that he is feeling well. He does not feel any bulging or pain associated with his abdominal wall. He does feel like he has put on weight around his abdomen and wants to try to work this off. He reports no issues with p.o. intake and is having 3-4 bowel movements a day, usually loose but better when he takes his fiber. Overall, he is pleased with his repair. Objective: AAOx3, NAD Non-labored respirations on RA Abdomen soft, non-distended, and non-tender. Midline incision well-healed. No bulging along midline with/without valsalva. Jay Mora MD 10/16/22, 2:45 PM General Surgery [facility]03-30-2023 NoteHNO ID: [id number] Author: Destiny Zapata MA Service: ? Author Type: Car Groomer Type: Progress Notes Filed: 10/16/2022 3:05 PM Note Text: What is the reason for your visit today? Follow up 1 year Who is your referring physician? Are you having poor oral intake? NO Have you had unintentional weight loss of 15 lbs/7 Kg in the last 3-6 months? NO Bowels: regular Wound: Temperature: No [facility]: [facility] History of Present illness Narrative* Jay Mora MD - 10/16/2022 2:38 PM EDT [facility]dominal [facility] - Follow Up Visit Assessment/Plan: Lizzy Yee is a 75 year old male with a history of HTN, HLD, CAD, BPM, Anxiety, Obesity (BMI 38), BHUPENDRA, and colonic polyposis syndrome s/p subtotal colectomy with concomitant abdominal wall reconstruction with Dr. Bray on 09/24/21 and is now 1 year post op. He looks and feels well. I was concerned that he may have a subxiphoid recurrence based on his CT scan but neither the patient of I feel a bulge on exam so I think that this represents a bridged repair and that despite our primary closure with figure of eights, the rectus muscles just beneath the xiphoid pulled about do to the significant tension in the area, but that the underlying mesh and repair remain intact. We will continue to monitor for any evidence of symptomatic bulging in the area. - Follow up in one year with CT abdomen/pelvis (PO contrast, no need for IV - ordered) Subjective: Lizzy reports that he is feeling well. He does not feel any bulging or pain associated with his abdominal wall. He does feel like he has put on weight around his abdomen and wants to try to work thisoff. He reports no issues with p.o. intake and is having 3-4 bowel movements a day, usually loose but better when he takes his fiber. Overall, he is pleased with his repair. Objective: AAOx3, NAD Non-labored respirations on RA Abdomen soft, non-distended, and non-tender. Midline incision well-healed. No bulging along midlinewith/without valsalva. Jay Mora MD 10/16/22, 2:45 PM General Surgery [facility] * Destiny Zapata MA - 10/16/2022 1:09 PM EDT What is the reason for your visit today? Follow up 1 year Who is your referring physician? Are you having poor oral intake? NO Have you had unintentional weight loss of 15 lbs/7 Kg in the last 3-6 months? NO Bowels: regular Wound: Temperature: No Drains: No documented in [facility]-25-[facility]23 Miscellaneous Notes* [facility] - RT Marisa(R) - 10/11/2022 11:00 AM EDT Radiology Service Progress Note PATIENT NAME: Lizzy Yee DATE OF SERVICE: October 11, 2022 TIME: 10:29 AM PATIENT IDENTITY VERIFICATION COMPLETED USING TWO (2) IDENTIFIERS: Name and Date of confirmedby patient verbally. FALL SCREENING: Has the patient had 2 falls in the last year or 1 fall with injury or currently using an Ambulatory Assistive Device (Walker, Cane, Wheelchair, Crutches, etc.)? No PATIENT GENDER DATA: Male PATIENT RELEVANT IMPLANT DATA REVIEWED: Not Applicable RADIOLOGY DEPARTMENT: CT; Exam(s) Completed: Abdomen/Pelvis PERIPHERAL IV DATA: Not applicable SIGNED BY: RT Marisa(R) October 11, 2022 10:29 AM documented in this encounterSam[facility]03-21-2023 Miscellaneous Notes* Telephone Encounter - Efrain Guo RN - 10/07/2022 10:42 AM EDT Returned call, went to voicemail. Left message that the CT has been ordered without contrast. Left office number for questions or concerns. * Telephone Encounter - Anjelica House - 10/06/2022 3:02 PM EDT Pt's called he is going in for a CT scan on Thursday does he need to have a creatinine blood level, says he had one within the last month or so at a non facility. PH: [phone] documented in this encounterSam[facility]02-24-2023 Evaluation note* Encounter Date Diagnosis Assessment Notes Treatment Notes Treatment Clinical Notes Aug, Left carotid artery stenosis (ICD-10 - I65.22) US: right <50%, left 50-69% - 10/2020 US: right <50%, left 80-90% - 08/2022 [employer] Other 02-20-2023 Evaluation note* Encounter Date Diagnosis Assessment Notes Treatment Notes Treatment Clinical Notes Aug, Encounter for annual wellness exam in Medicare patient (ICD-10 - Z00.00) Healthy diet and exercise. Reviewed age-appropriate preventive testing recommended. Personalized health advice was given to the beneficiary including a written plan for screenings discussed and provided. Advanced care planning reviewed and/or information given as requested. Additional counseling was provided here today in regards to, [ ]. The above visit was performed by [ ], under direct supervision of [ ]. Document reviewed and amended by provider signed below. Aug, ASHD (arteriosclerot ic heart disease) (ICD-10 - I25.10) This patient is stable without activity related CP, dyspnea or lightheadedness. They are instructed to continue exercise and AHA diet plan. Aug, Essential hypertensi on (ICD-10 - I10) This patient is instructed to consume a healthy, low-fat, low-salt diet. They are also encouraged to continue exercise to achieve/maintain a normal BMI. Aug, Obstructive sleep apnea (ICD-10 - G47.33) This patient is aware of the benefits associated with BHUPENDRA: With continued use, the patient reduces the risk for CT, CVA, HTN, cardiac dysrhythmias and sudden cardiac deaths.The patient is also aware of the association between BHUPENDRA and morning headaches, daytime somnolence, fatigue and obesity, which also has been improved with continued use.The patient is compliant with treatment, wearing the equipment every night for greater than 4 hours.The patient is instructed to continue use of the CPAP for BHUPENDRA treatment. Aug, Type 2 diabetes mellitus with hyperglycemia, without long-term current use of insulin (ICD-10 - E11.65) This patient is following a comprehensive diabetic treatment plan. They are checking their feet daily for calluses and nonhealing ulcers. They are being seen for yearly dilated eye examinations. Goals: SBP less than 130, LDL less than 100, FBS less than 140, AC and A1C less than 7%. They are checking their BS daily, will which are reviewed at the office visit. Aug, Familial polyposis (ICD-10 - D12.6) f/u with Surgery for yearly scope Aug, Gastroesophageal reflux disease with esophagitis without hemorrhage (ICD-10 - K21.00) Diet instructions: Smaller portions, avoid eating and laying flat, avoid eating or drinking prior to bedtime. Weight loss. Aug, Controlled diabetes mellitus with diabetic peripheral angiopathy without gangrene (ICD-10 - E11.51) Inspect feet daily for cuts and calluses. Walk daily and continue ASA. Fall precautions Aug, Lumbosacral spondylosis with radiculopathy (ICD-10 - M47.27) The patient is instructed to avoid bending, twisting or lifting. They are to use intermittent heat and ice as needed. They may schedule a massage or gentle manipulation. They may safely use Tylenol as needed. Aug, Left carotid artery stenosis (ICD-10 - I65.22) US: right <50%, left 50-69% - 10/2020 Continue ASA and Statin therapy, control BP, BS Aug, Elevated cholesterol (ICD-10 - E78.00) Aug, Screening PSA (prostate specific antigen) (ICD-10 - Z12.5) Aug, High risk medication use (ICD-10 - Z79.899) Aug, Other Personalized health advice was given to the beneficiary including a written plan for screenings discussed and provided. Advanced care planning reviewed and/or information given as requested. Additional counseling was provided here today in regards to, [ ]. The above visit was performed by [ ], under direct supervision of [ ]. Document reviewed and amended by provider signed below. [employer] Other 01-12-2023 NoteCONSULTATION PROCEDURE DATE: 09/18/2022 PREOPERATIVE DIAGNOSIS: Left knee osteoarthritis. POSTOPERATIVE DIAGNOSIS: Left knee osteoarthritis. PROCEDURE: Left knee steroid injection. Subsequent to obtaining informed consent, the patient was placed in a sitting, dependent dangling position. Alcohol prep was used to sterilize the site. A 25 gauge needle with 0.125% Marcaine, 40 mg of Kenalog was placed inside the anterior medial portion of the left knee. Knee flexed in a 90 degree angle. Negative heme. Medication was injected slowly and patient tolerated the procedure well. Patient did have increased range of motion and decreased pain following the injection. Patient is ambulatory and will be followed up in the office.[facility] [id number] NoteCONSULTATION CONSULTATION DATE: 07/31/2022 HISTORY OF PRESENT ILLNESS: This is a very pleasant, 76-year-old gentleman who returns to the Pain Clinic status post bilateral RFA of L2, L3 and L4, L5 completed on 07/01/2022. This afforded him 75% relief and he overall feels well. He does have longer endurance with standing, lifting and walking around the house. He is complaining of left knee pain today. It is aggravated by prolonged walking, standing, activity and twisting. His medications include baclofen 10 mg q.h.s., a multivitamin regimen, Plavix and sertraline. Patient is complaining of some slight back muscle tightness today. He does not use heat on a regular basis. Patient's REVIEW OF SYSTEMS / PAST MEDICAL HISTORY / ALLERGIES and IMAGES have been reviewed and noted in the chart. PHYSICAL EXAM: VITAL SIGNS: Blood pressure is 154/77. Heart rate is 69. Temperature is 96.4. He is 5'5 and weighs 109 kg. GENERAL IMPRESSION: Pleasant, appropriate, no acute distress. FOCUSED EXAM - BACK: Range of motion is functional in lateral rotation and flexion/extension. Paravertebral muscles are taut but non-spasmodic. No trigger points identified. No spinal axial pain to compression along the lumbar facets. Tavia's point is non-tender. MUSCULOSKELETAL: Motor is intact, 3/5 bilaterally. Patient walks unassisted with an antalgic gait. Left knee with crepitus palpated and pain to the anterior medial aspect of his knee. NEUROLOGICAL: Patient has diffuse polyneuropathy to his bilateral feet. DIAGNOSIS: Left knee osteoarthritis, chronic lower back pain, lumbar degenerative disc disease and lumbar spondylosis. PLAN: The patient will receive a left knee injection with Marcaine and Kenalog today in the office, which he does consent to. I did educate the patient on using a menthol topical gel to his back, in addition to heat application twice a day, as well as continuing his baclofen q.h.s. I did recommend Voltaren gel to his left knee as well. We will see the patient in three months' time unless otherwise indicated, and the patient agrees with this plan.[facility] 05-29-2022 NoteCONSULTATION CONSULTATION DATE: 05/29/2022 HISTORY OF PRESENT ILLNESS: This is a pleasant, 76-year-old gentleman returning to the clinic status post #2 bilateral MBB of L2, L3 and L4, L5 completed on 05/13/2022. This afforded him 90% relief for two days. During that time, he was increasing his activity such as yard work and moving things around the house. Increased movement did increase his pain. Today, he rates that pain 6/10. Activities such as twisting, transitioning sitting to standing, bending, standing and lifting aggravate his pain. He currently does not use heat or a menthol heat rub. Medications include Plavix, sertraline, baclofen and a baby aspirin. He is compliant with a multivitamin regimen. Patient's REVIEW OF SYSTEMS / PAST MEDICAL HISTORY / ALLERGIES and IMAGES have been reviewed and they are noted on the chart. PHYSICAL EXAM: VITAL SIGNS: Blood pressure is 111/68. Heart rate is 60. Temperature is 96.8. He is 5'5 , weighs 105.4 kg. GENERAL IMPRESSION: Pleasant, appropriate, no acute distress. FOCUSED EXAM - BACK: Range of motion is guarded in lateral rotation and flexion/extension. Paravertebral muscles are taut bilaterally. Reproduction of spinal axial pain upon compression of the L2, L3 and L4, L5 facets, with pain that does not radiate below the knee. Tavia's point mildly tender to the left. MUSCULOSKELETAL: Slight muscle atrophy noted to bilateral lower extremities. Motor is 4/5. Walks with a stable slow but antalgic gait. NEUROLOGICAL: Patient is cognitively intact. Diffuse polyneuropathy to left upper extremity. DIAGNOSIS: Lumbar spondylosis, lumbar degenerative disc disease, spinal axial lower back pain. PLAN: We will move forward with the bilateral radiofrequency ablation of L2, L3 and L4, L5. We will gain approval to hold his Plavix prior to the procedure. I did recommend a menthol heat rub in addition to heat application with the patient. Seated stretches were demonstrated. Patient agrees to move forward with the procedure, will be followed up in the clinic thereafter.[facility] [id number] NotePatient here for 1 year follow up CAD, hypertension, and PVD. Had labs in September 2021 while at [facility] for colon surgery/hernia repair. He became hypotensive s/p surgery so his BP meds were adjusted. Denies chest pain and palpitations. Says his SOB with exertion remains unchanged. Review of Systems Cardiovascular: Positive for dyspnea on exertion. Musculoskeletal: Positive for arthritis, back pain, joint pain, muscle weakness and myalgias. Neurological: Positive for light-headedness and numbness.[facility]10-[facility] NoteSUBJECTIVE Chief Complaint Patient presents with Coronary Artery Disease Hypertension Peripheral Vascular Disease Lizzy Yee is a 76 y.o. male here for follow-up. HPI Patient here for 1 year follow up CAD, hypertension, and PVD. Had labs in September 2021 while at [facility] for colon surgery/hernia repair. He became hypotensive s/p surgery so his BP meds were adjusted. Denies chest pain and palpitations. Says his SOB with exertion remains unchanged. He has recovered since his bowel/hernia surgery earlier this year. He will need yearly colonoscopies d/t his high amount of polyps. His HR has been low one day a week or so ago, HR was reading 49 on his monitor, he had just woken up, no other low readings since then. HR typically ranging 50-60s. He has METZGER with heavier exertion, this is unchanged for him. He denies CP, orthopnea, PND, LE edema, palpitations, bleeding issues. He gets occasional lightheadedness with position changes. HOSPITAL COURSE (from 09/2021 at [facility]): Mr Yee is a 75 year old male who was admitted for the above mentioned scheduled surgery with Dr. Bray and Dr. Mora. Post-op in the ICU initially for close hemodynamic monitoring. He was extubated on POD1. Pain well controlled. Remained in ICU until POD2. Arevalo removed on POD3 and voided freely, flomax started and maintained.home medications started as appropriate. POD3 he developed an ileus and an NG tube place placed. Large amount of fluid removed via NG. NG tube remained in until bowel function returned with flatus and stools and he passed clamp trial. Mobilized with minimal assistance. Diet advanced as tolerated, able to eat a GI soft prior to discharge. KEVIN drains removed by general surgery one at a time prior to discharge. He became hypotensive on 09/30 and home BP medications were adjusted. His BP improved. He continued to have multiple stools. On 10/01 he had a slight MONIQUE which began to improve with hydration. He was discharged on 10/01/2021 with close follow up scheduled and lab work with his PCP on 10/02. Transitions of Care Critical Issues: medication changes, close follow up with PCP, holding plavix x5 days Patient Active Problem List Diagnosis Hypertension Sleep apnea Coronary artery disease PVD (peripheral vascular disease) ([facility]) Hx of CABG Past Medical History: Diagnosis Date Coronary artery disease Diabetes mellitus ([facility]) Hypertension PVD (peripheral vascular disease) ([facility]) Sleep apnea Family History Problem Relation Name Age of Onset Coronary artery disease Mother Coronary artery disease Brother Social History Tobacco Use Smoking status: Former Types: Cigarettes Smokeless tobacco: Never Substance Use Topics Alcohol use: Not Currently No Known Allergies Review of Systems Constitutional: Negative for chills, fever, weight gain and weight loss. Eyes: Negative for blurred vision and discharge. Cardiovascular: Positive for dyspnea on exertion. Negative for chest pain, claudication, irregular heartbeat, leg swelling, near-syncope, orthopnea, palpitations and syncope. Respiratory: Negative for cough and shortness of breath. Hematologic/Lymphatic: Does not bruise/bleed easily. Musculoskeletal: Positive for arthritis, back pain, joint pain, muscle weakness and myalgias. Gastrointestinal: Negative for abdominal pain, nausea and vomiting. Neurological: Positive for light-headedness and numbness. OBJECTIVE Visit Vitals BP (P) 136/66 (BP Location: Right arm, Patient Position: Sitting) Pulse (P) 55 Ht 1.651 m (5' 5 ) Wt 106 kg (233 lb) SpO2 (P) 96% BMI 38.77 kg/m??? Smoking Status Former BSA 2.2 m??? Medications: Current Outpatient Medications: aspirin 81 mg EC tablet, in the morning., Disp: , Rfl: atorvastatin (Lipitor) 80 mg tablet, Take 80 mg by mouth at bedtime., Disp: , Rfl: carvedilol (Coreg) 12.5 mg tablet, Take 12.5 mg by mouth with breakfast and with evening meal., Disp: , Rfl: clopidogrel (Plavix) 75 mg tablet, Take 75 mg by mouth in the morning., Disp: , Rfl: glipiZIDE (Glucotrol) 5 mg tablet, glipizide 5 mg tablet TAKE 1 TABLET BY MOUTH EVERY DAY 30 MINUTES PRIOR TO BREAKFAST, Disp: , Rfl: hydroCHLOROthiazide (HYDRODiuril) 25 mg tablet, Take 25 mg by mouth in the morning., Disp: , Rfl: lisinopril 5 mg tablet, Take 5 mg by mouth in the morning., Disp: , Rfl: magnesium oxide 500 mg tablet, in the morning., Disp: , Rfl: metFORMIN (Glucophage) 1,000 mg tablet, metformin 1,000 mg tablet TAKE 1 TABLET BY MOUTH TWICE A DAY BEFORE BREAKFAST AND EVENING MEAL, Disp: , Rfl: pantoprazole (ProtoNix) 40 mg EC tablet, pantoprazole 40 mg tablet,delayed release TAKE 1 TABLET BY MOUTH DAILY ON EMPTY STOMACH FOLLOWED IN 30 MINUTES BY BREAKFAST, Disp: , Rfl: sertraline (Zoloft) 100 mg tablet, sertraline 100 mg tablet TAKE 1 TABLET BY MOUTH EVERYDAY AT BEDTIME, Disp: , Rfl: tamsulosin (Flomax) 0.4 mg 24 hr capsule, Take 0.4 mg by mo (more content not included)...[facility]10-06-2022 NoteCONSULTATION CONSULTATION DATE: 04/24/2022 This is a very pleasant 76-year-old gentleman who returns to the clinic status post #1 bilateral MBB of L2, L3 and L4, L5 completed on 04/08/2022 that afforded him 90% relief for 4-5 days. The patient was very pleased with the outcomes and during that time he had an increase of functionality with housework, walking and stairs. Today's pain is 5 out of 10 described as a deep ache. He is currently attending aqua therapy at the hospital and greatly benefits from that. He does report activity such as pushing, pulling, sitting, lying, yard work and lifting aggravates his pain. He currently does not use heat or ice. MEDICATIONS: Include Baclofen 10 mg q.h.s., Plavix, sertraline 100 mg q.h.s. and a multivitamin regimen. He denies any recent falls or vasomotor weakness. REVIEW OF SYSTEMS, PAST MEDICAL HISTORY, ALLERGIES AND IMAGES: Have been reviewed and noted in the chart. PHYSICAL EXAM: VITAL SIGNS: Blood pressure 121/69, heart rate is 63, temperature is 96.2. Height is 5'5 , weighs 105kg. GENERAL APPEARANCE: Pleasant, appropriate, in no acute distress, sitting in the chair. FOCUSED EXAM: Range of motion is guarded in lateral rotation and flexion/extension. Paravertebral muscles are taut but non-spasmodic. Reproduction of spinoaxial pain noted to direct compression along the posterior elements of the lumbar facets which does not radiate below the knees. Fullness palpated along the facets indicative of ill facet arthroplasty, lumbar spondylosis, L2, L3 and L4, L5. Tavia's point is nontender bilaterally with negative Kristen's and compression test. MUSCULOSKELETAL: Motor I s 5/5 bilaterally. The patient ambulates with a steady gait and does not use an assistive device. NEUROLOGICAL: The patient has patchy hypesthesia to his left hand. Lower extremities are negative for polyneuropathy. Plus 1 bilateral patellar and Achilles reflex. The patient is cognitively intact. DIAGNOSIS: Spinoaxial lower back pain, lumbar degenerative disk disease, lumbar spondylosis and left knee osteoarthritis. PLAN: We will move forward with #2 bilateral MBB of L2, L3 and L4, L5. We will gain approval to hold his Plavix from his range mechanic. A refill for Baclofen 10 mg q.h.s. will be sent today. I did recommend acromion to the patient as well as an additional supplement to his vitamin regimen. The patient agrees with the plan of care and we discussed following his RFA of his lumbar that we could move forward with the left knee injection for his chronic left knee osteoarthritis. The patient is in agreement.[facility] [id number] Note CONSULTATION CONSULTATION DATE: 03/25/2022 CHIEF COMPLAINT: 1. Low back pain. 2. Left knee pain. HISTORY OF PRESENT ILLNESS: This is a very pleasant, 76-year-old male, who is known to the pain practice remote. The patient had a right total knee replacement at [facility]. The patient is doing well with regards to it. The patient has pathology in the left knee and is going through physical therapy for this. The patient also is attending with regards to his low back pain. The patient describes the pain as a 3/10, a soreness. Depending on his activity level, the pain gets aggravated. The patient, especially riding the lawnmower, is problematic for the patient. The patient states activities such as pushing, pulling, standing, walking, housework aggravate the patient's pain. Laying down, sitting down mitigate the patient's pain. Change in weather also aggravates the pain. The patient takes Tylenol and sertraline 100 mg. He is also on Plavix. The patient takes a multivitamin regimen along with the magnesium. The patient's PAST MEDICAL HISTORY / SURGICAL HISTORY / REVIEW OF SYSTEMS are noted on the chart, along with the MEDICATION LIST / ALLERGIES and RADIOLOGICAL IMAGING, including the x-ray of his lumbar spine date 03/04/2022, which was reviewed in office today, which shows significant lumbar spondylosis, multiple level degenerative disc disease. PHYSICAL EXAM: GENERAL APPEARANCE: Upon physical examination, this is a very pleasant, cooperative gentleman, who does not appear to be in any acute distress. VITAL SIGNS: Stable at 112/64, with a heart rate of 62. At a height of 5'5 , the patient weighs 103 kg. Loss of axial height is noted with loss of interspinous space. ABDOMEN: Protuberant, non-distended. BACK: Tenderness, significant jump response is noted along the posterior elements bilaterally at the level of L4-L5 and also L2-L3. Paravertebral spasming is present bilaterally. EXTREMITIES: No motor dysfunction is noted. No pedal edema. Patient ambulates without any assistive devices. MUSCULOSKELETAL: Intact in the lower extremities. Slight hypoesthesia is present along the L5 distribution bilaterally. NEUROLOGICALLY: The patient is intact. PSYCHIATRICALLY: Affect is appropriate. IMPRESSION: Chronic low back pain with lumbar degenerative disc disease, lumbar spondylosis, left knee pain. PLAN: The patient will start with baclofen 10 mg q.h.s. Given that he is on an anticoagulant, we are limited with regards to anti-inflammatory. We have educated the patient with regards to magnesium and magnesium glycinate 400 mg q. p.m., which the patient feels he is already taking. The patient will be scheduled for a diagnostic lumbar medial branch block at the level of L2-L3 and L4-L5. The patient understands and would like to proceed.[facility] 01-27-2022 NoteHNO ID: [id number] Author: Jus Bray MD Service: ? Author Type: Physician Type: Progress Notes Filed: 02/05/2022 3:02 PM Note Text: HPI Lizzy Yee is a 76 year old male with history of HTN, HLD, CAD, BPM, Anxiety, Obesity (BMI?38), BHUPENDRA, and colonic polyposis syndrome?s/p subtotal colectomy with concomitant abdominal wall reconstruction with Dr. Mora 10/04. Patient is presenting for follow up. Patient is doing well overall. Patient denies any abdominal pain, nausea, vomiting. Patient reports good appetite and PO intake. Patient is having good bowel function. He reports 3-4 bowel movements per day. Patient denies any incontinence. PHYSICAL EXAM BP 131/56 Pulse 50 Temp 96.9 Ht 5' 5 (1.65m) Wt 230 lb (104.3kg) SpO2 98% BMI 38.27 kg/(m2). General Appearance: Well appearing, alert, in no acute distress Abdomen: soft, non-tender, well healed incision, no evidence of hernia Assessment Patient is a 76 yo male with history of HTN, HLD, CAD, BPM, Anxiety, Obesity (BMI?38), BHUPENDRA, and colonic polyposis syndrome?s/p subtotal colectomy with concomitant abdominal wall reconstruction with Dr. Mora 10/04. Patient is presenting for follow up. Patient is doing well overall. Plan RECOMMENDATION - we discussed that he will continue to need close surveillance of his remaining colon and rectum for polyp formation. Would recommend annual flexible sigmoidoscopies. He will have these done with his surgeon close to home - He has no dietary or physical restriction from my standpoint - Follow up anytime as needed. Jus Bray, [facility]07-11-2022 Nurse Note* Sarah Osman MA - 01/27/2022 1:19 PM EDT What is the reason for your visit today? Established patient presents for follow up. Who is your referring physician? Are you having poor oral intake? Yes. Patient states that he sometimes chokes when eating too fast. Have you had unintentional weight loss of 15 lbs/7 Kg in the last 3-6 months? NO Bowels: loose Wound: None Temperature: No Drains: No documented in [facility] History of Present illness Narrative* Jus Bray MD - 01/27/2022 1:00 PM EDT HPI Lizzy Yee is a 76 year old male with history of HTN, HLD, CAD, BPM, Anxiety, Obesity (BMI 38), BHUPENDRA, and colonic polyposis syndrome s/p subtotal colectomy with concomitant abdominal wall reconstruction with Dr. Mora 10/04. Patient is presenting for follow up. Patient is doing well overall. Patient denies any abdominal pain, nausea, vomiting. Patient reports good appetite and PO intake. Patient is having good bowel function. He reports 3-4 bowel movements per day. Patient denies any incontinence. PHYSICAL EXAM BP 131/56 Pulse 50 Temp 96.9 Ht 5' 5 (1.65m) Wt 230 lb (104.3kg) SpO2 98% BMI 38.27 kg/(m^2). General Appearance: Well appearing, alert, in no acute distress Abdomen: soft, non-tender, well healed incision, no evidence of hernia Assessment Patient is a 76 yo male with history of HTN, HLD, CAD, BPM, Anxiety, Obesity (BMI 38), BHUPENDRA, and colonic polyposis syndrome s/p subtotal colectomy with concomitant abdominal wall reconstruction with Dr. Mora 10/04. Patient is presenting for follow up. Patient is doing well overall. Plan RECOMMENDATION - we discussed that he will continue to need close surveillance of his remaining colon and rectum for polyp formation. Would recommend annual flexible sigmoidoscopies. He will have these done with his surgeon close to home - He has no dietary or physical restriction from my standpoint - Follow up anytime as needed. Jus Bray MD documented in this encounterSam[facility]03-25-2022 Miscellaneous Notes* Telephone Encounter - Shan Parham - 10/11/2021 3:09 PM EDTSummary: IRB#: [id number] Research Outreach IRB# [id number], Qualitative Interviews in Postoperative Gastrointestinal Dysfunction (POGD). PI: Shilpa Storm MD, SANJIV, FASA. Outcomes Research Department. [facility] [place]. This is a research study note. Patient assessments recorded here should not guide either clinical care or clinical decision-making. I spoke with Mr. Yee regarding eligibility for the study. The background, rationale, study related procedures, and potential benefits of study participation were discussed. He will consider this information. I have confirmed the e-mail on file as current and that he is happy to receive study related materials there. I am sending a copy of the patient flyer document there for his review. Shan Parham Research Commission Clerk [facility] [place] Outcomes Research Department documented in this encounterSam[facility]itan [facility]03-24-2022 History of Present illness Narrative* Jay Mora MD - 10/10/2021 1:37 PM EDT [facility] - Follow Up Visit Assessment/Plan: Lizzy Yee is a 75 year old male with a history of HTN, HLD, CAD, BPM, Anxiety, Obesity (BMI 38), BHUPENDRA, and colonic polyposis syndrome s/p subtotal colectomy with concomitant abdominal wall reconstruction with Dr. Bray on 09/24 who presents for follow up now 16 days post op. His wounds are healing well, he denies any recurrent bulging, and he is healing appropriately. - [address] up [address] imaging prior to visit. Subjective: Mr. Yee presents today now 16 days status post subtotal colectomy with abdominal wall reconstruction. He reports that he is feeling well. He is no longer taking any narcotic pain medications and is just using Tylenol as needed for pain. He has no concerns about his wounds. He has been wearing his binder as instructed. With regards to p.o. intake and bowel movements, he reports 3-6 bowel movements a day and that he is having some difficulty keeping up with his fluid intake but is managing all right. He is very pleased with the care that he received while at [place]. Objective: AAOx3, NAD Non-labored respirations on room air. Abdomen soft, nondistended, nontender. Midline incision healing well with skin glue still in place.Former drain sites in the left upper quadrant scabbed over, right upper quadrant open with a small amount of serous drainage, and left lower quadrant with minimal serous drainage. There is mild edemain the soft tissue of the lower abdomen without any erythema or induration. Jay Mora MD 10/10/21, 1:37 PM General Surgery [facility] documented in this encounterSam[facility]itan [facility] Center03-24-2022 History of Present illness Narrative* Jus Bray MD - 10/10/2021 11:00 AM EDT HPI Lizzy Yee is a 75 year old male here today for postop Open subtotal colectomy with stapled [id number] ileosigmoid anastomosis ventral herniorrhaphy with transversus abdominus release and placement of mesh- w/Dr Mora on 09/24/2021 PMH: Polyposis of the colon PATH: - Multiple tubular adenomas, no evidence of high grade dysplasia or invasive adenocarcinoma Today: Patient states he is doing well. He is eating well. He is having 3-4 BM's during day and a couple overnight. Function overall is improving. Pain is minimal. PHYSICAL EXAM BP 137/65 Pulse 76 Ht 5' 5 (1.65m) Wt 226 lb (102.5kg) SpO2 98% BMI 37.61 kg/(m^2). General Appearance: Well appearing, alert, in no acute distress Abdomen: Normal abdominal exam, Abdomen soft, minimal tenderness, incision healing nicely. Assessment S/p subtotal colectomy with ileosigmoid anastomosis, abdominal wall reconstruction with Dr. Mora Overall doing very well. Plan RECOMMENDATION - can resume normal diet - increase fiber intake. Can take an imodium before bed if bowel function overnight does not improve. - will require annual flexible sigmoidoscopies for close polyp surveillance in his remaining rectumand sigmoid. - follow up in 3-4 months Jus Bray MD documented in this encounterSam[facility]03-24-2022 Nurse Note* Elena Ferrell MA - 10/10/2021 10:45 AM EDT What is the reason for your visit today? Follow up Who is your referring physician? Self Are you having poor oral intake? NO Have you had unintentional weight loss of 15 lbs/7 Kg in the last 3-6 months? NO Bowels: regular Wound: none Temperature: No Drains: No documented in this encounterSam[facility]03-08-2022 History of Past illness Narrative* Problem Noted Date Resolved Date 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 documented as of this encounter (statuses as of 10/10/2021) [address]08-2022 History of Past illness Narrative* Problem Noted Date Resolved Date 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 documented as of this encounter (statuses as of 10/10/2021) [facility] History of Past illness Narrative* Problem Noted Date Resolved Date 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 documented as of this encounter (statuses as of 10/11/2021) [facility] History of Past illness Narrative* Problem Noted Date Resolved Date 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 documented as of this encounter (statuses as of 02/05/2022) [address]08-2022 History of Past illness Narrative* Problem Noted Date Resolved Date 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 documented as of this encounter (statuses as of 10/07/2022) [address]08-2022 History of Past illness Narrative* Problem Noted Date Resolved Date 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 documented as of this encounter (statuses as of 10/12/2022) [address]08-2022 History of Past illness Narrative* Problem Noted Date Resolved Date 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 documented as of this encounter (statuses as of 10/12/2022) [facility] History of Past illness Narrative* Problem Noted Date Resolved Date 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 documented as of this encounter (statuses as of 10/16/2022) [facility]06-12-[facility] NoteMR#: [id number]. Name: Lizzy Yee Admitted: 12/26/2020 Discharged: 12/29/2020 Date of : 1945 Physician: Ty Dumont M.D. DISCHARGE SUMMARY [facility]. Name: Kurt Yee Admitted: 12/26/20 Discharged: 12/29/20 DISCHARGE SUMMARY DISCHARGE PHYSICIAN: Janiya SERVICE: Orthopedics PRIMARY DIAGNOSES: R knee DJD PROCEDURES: R TKA SUMMARY OF HOSPITAL COURSE: Patient underwent the above-mentioned procedure, which they tolerated well, and was routinely admitted to the hospital for postoperative observation, pain control, and evaluation by physical and occupational therapy. Hospital course was otherwise unremarkable and there were no complications, they were able to work with physical therapy and discharged uneventfully. CONDITION AT DISCHARGE: Stable DISPOSITION: Home with [facility] DISCHARGE INSTRUCTIONS: Take medications as prescribed, follow up with Dr. Dumont in 10-14 days DISCHARGE MEDICATIONS: Narcotic pain medications, stool softeners, and DVT prophylaxis with ASA 325 BID Electronically Signed by: Ty Dumont M.D. 12/31/2020 11:09 A Ty Dumont M.D. I personally saw this patient on the day of the encounter, performed the kaur portion(s) of the service and participated in the management and confirm the resident's documentation. Please note there may be an additional personal documentation from me. Date Dict: 12/29/2020/08:18 P/Dano Cano MD Date Trans: 12/29/2020 08:18 P/ BARRETT_[id number] cc: Juancarlos Gan D.O. [address], [address] [facility] [id number][facility] for RehabilitationEvaluation + Plan note No data available for this section [facility] CenterEvalubeebe healthcare note* Diagnosis Ventral incisional hernia- Primary documented in this encounter [facility] note* Diagnosis Polyposis of colon- Primary Benign neoplasm of colon documented in this encounter [facility] note* Diagnosis Polyposis of colon- Primary Benign neoplasm of colon Incisional hernia, without obstruction or gangrene Incisional hernia without mention of obstruction or gangrene documented in this encounter [facility] noteNo InformationNoripley [facility] [employer] Other Evaluation note* Diagnosis Ventral incisional hernia documented in this encounter [facility] note* Diagnosis Ventral incisional hernia- Primary documented in this encounter [facility] general Narrative - Reported* Type Description Date Medical History Familial polyposis Medical History Body mass index (BMI) of 40.0 to 49.9 Medical History Obstructive sleep apnea Medical History Anemia due to blood loss, acute Medical History ASHD (arteriosclerotic heart dis ease) Medical History Essential hypertension Medical History Controlled diabetes mellitus with diabetic peripheral angiopathy without gangrene Medical History Controlled type 2 di abetes mellitus with hyperglycemia, without long-term current use of insulin Medical History Paresthesia Medical History Lumbosacral spondylosis with rad iculopathy Medical History Dyshidrotic eczema Medical History S/P colectomy Medical History Prerenal azotemia Medical History Sludge in gallbladder Medical History NARINDER (generalized anxiety disorde r) Medical History Left carotid artery stenosis Medical History Gastroesophageal ref lux disease with esophagitis without hemorrhage Medical History BPPV (benign paroxysmal position al vertigo), bilateral Medical History Lumbar spondylosis Medical History Morbid obesity Medical History Bilateral primary osteoarthritis of knee Medical History Dizziness Surgical History PARTIAL REMOVAL OF COLON Surgical History COLONOSCOPY Surgical History TOTAL KNEE ARTHROPLASTY Surgical History RIGHT HEMICOLECTOMY 2003 Hospitalization History SEE SURGICAL HX [employer] Other History general Narrative - Reported* Type Description Date Medical History Familial polyposis Medical History Body mass index (BMI) of 40.0 to 49.9 Medical History Obstructive sleep apnea Medical History Anemia due to blood loss, acute Medical History ASHD (arteriosclerotic heart dis ease) Medical History Essential hypertension Medical History Controlled diabetes mellitus with diabetic peripheral angiopathy without gangrene Medical History Controlled type 2 di abetes mellitus with hyperglycemia, without long-term current use of insulin Medical History Paresthesia Medical History Lumbosacral spondylosis with rad iculopathy Medical History Dyshidrotic eczema Medical History S/P colectomy Medical History Prerenal azotemia Medical History Sludge in gallbladder Medical History NARINDER (generalized anxiety disorde r) Medical History Left carotid artery stenosis Medical History Gastroesophageal ref lux disease with esophagitis without hemorrhage Medical History BPPV (benign paroxysmal position al vertigo), bilateral Medical History Lumbar spondylosis Medical History Morbid obesity Medical History Bilateral primary osteoarthritis of knee Medical History Dizziness Surgical History PARTIAL REMOVAL OF COLON Surgical History COLONOSCOPY Surgical History TOTAL KNEE ARTHROPLASTY Surgical History RIGHT HEMICOLECTOMY 2003 Surgical History Colonoscopy 12/2022 Hospitalization History SEE SURGICAL HX [employer] Other History general Narrative - Reported* Type Description Date Medical History Familial polyposis Medical History Body mass index (BMI) of 40.0 to 49.9 Medical History Obstructive sleep apnea Medical History Anemia due to blood loss, acute Medical History ASHD (arteriosclerotic heart dis ease) Medical History Essential hypertension Medical History Controlled diabetes mellitus with diabetic peripheral angiopathy without gangrene Medical History Controlled type 2 di abetes mellitus with hyperglycemia, without long-term current use of insulin Medical History Paresthesia Medical History Lumbosacral spondylosis with rad iculopathy Medical History Dyshidrotic eczema Medical History S/P colectomy Medical History Prerenal azotemia Medical History Sludge in gallbladder Medical History NARINDER (generalized anxiety disorde r) Medical History Left carotid artery stenosis Medical History Gastroesophageal ref lux disease with esophagitis without hemorrhage Medical History BPPV (benign paroxysmal position al vertigo), bilateral Medical History Lumbar spondylosis Medical History Morbid obesity Medical History Bilateral primary osteoarthritis of knee Medical History Dizziness Surgical History PARTIAL REMOVAL OF COLON Surgical History COLONOSCOPY Surgical History TOTAL KNEE ARTHROPLASTY Surgical History RIGHT HEMICOLECTOMY 2003 Surgical History Colonoscopy 12/2022 Surgical History Angioplasty right popliteal art anaya 03/2023 Hospitalization History SEE SURGICAL [employer] Other Hospital Discharge instructions No data available for this section [facility] No data available for this section [facility] HospitalReason for referral (narrative)* Reason 10/09/22 Referral for carotid artery stenosis Diagnosis 1 Left carotid artery stenosis (I65.22) Referral Organization [facility] Katerin C nemo Referring Provider First Name Juancarlos Referring Provider Last Name Bang Referring Provider Specialty Internal Me dicchris Referred Organization [facility] Referred Provider Jyoti Mccurdy Referred Address [address], [place],[address] Referred Provider Specialty Vascular Ruslan kajal Referral Priority Routine Referral Appointment Date 2022-10-09 General Notes Mr. Hooper is being r eferred for carotid artery stenosis. He recently completed carotid artery US at [facility], which revealed 87% left carotid bulb stenosis. The ICA velocities are not elevated, which was suggested to be due to hemodynamically significant stenosis in the left bulb. Seema Jaquez 09/23/2022 01:11:23 PM >received today, attachments made, referral faxed Janae Fulton 09/29/2022 02:11:56 PM > Patient is scheduled on 10/09 at 10 a.m. at [facility] Clinical Notes Mr. Hooper is being r eferred for further evaluation and treatment of left carotid artery stenosis. He has multiple risk factors, including HTN, HLD, DM and PAD. He has no history of TIA or CVA. He denies diplopia, loss of vision, dysarthria, facial droop or unilateral extremity weakness. F: [id number] [employer] Other Summary Purpose Family History No Family History Records FoundNo Family History Records FoundNo Family History Records FoundNo Family History Records FoundNo Family History Records FoundNo Family History Records Found Advance Directives Documents on File Type Date Recorded Patient Certified Court/Medical Interpreter Expl anation Advance Directive(s) 09/24/2021 8:40 AM Advance Directive(s) 06/07/2021 10:19 AM Advance Directive(s) 05/15/2021 3:36 PM M ain Documents on File Type Date Recorded Patient Certified Court/Medical Interpreter Expl anation Advance Directive(s) 09/24/2021 8:40 AM Advance Directive(s) 06/07/2021 10:19 AM Advance Directive(s) 05/15/2021 3:36 PM M ain Documents on File Type Date Recorded Patient Certified Court/Medical Interpreter Expl anation Advance Directive(s) 09/24/2021 8:40 AM Documents on File Type Date Recorded Patient Certified Court/Medical Interpreter Expl anation Advance Directive(s) 09/24/2021 8:40 AM Reason for Referral Specialty Diagnoses / Procedures Referred By Contac t Referred To Contact CT IMAGING Diagnoses Ventral incisional hernia Procedures CT ABD/PEL WO IVCON CT ABD & PELVIS W/O CONTRAST Jay Mora MD [address] [place] [address] Ct Imaging Referral ID Status Reason Start Date Expiration Date Visits Requested Visits Authorized [id number] Pending Review Auto-Generat ed Referral 10/10/2022 11/09/2022 1 1 Referral ID Status Reason Start Date Expiration Date V isits Requested Visits Authorized [id number] Closed Auto-Generate d Referral 10/10/2022 11/09/2022 1 1 Specialty Diagnoses / Procedures Referred By Contac t Referred To Contact CT IMAGING Diagnoses Ventral incisional hernia Procedures CT ABD/PEL WO IVCON CT ABD & [place] [address] [place] [address] Ct Imaging Referral ID Status Reason Start Date Expiration Date Visits Requested Visits Authorized [id number] Pending Review Auto-Generat ed Referral 10/16/2022 11/15/2023 1 1 Additional Source Comments (unrecognized sect ion and content) No Status Records FoundNo Status Records FoundNo Status Records FoundNo Status Records FoundNo Status Records FoundNo Status Records Found INFORMATION SOURCE (unrecogn ized section and content) DATE CREATED AUTHOR 03/11/2021 [facility] DATE CREATED AUTHOR AUTHOR'S ORGANIZ ATION 10/13/2022 [facility] DATE CREATED AUTHOR AUTHOR'S ORGANIZ ATION 10/21/2022 [facility] DATE CREATED AUTHOR AUTHOR'S ORGANIZ ATION [facility]/29/2022 [facility] DATE CREATED AUTHOR AUTHOR'S ORGANIZ ATION 12/29/2022 [facility] DATE CREATED AUTHOR AUTHOR'S ORGANIZ ATION 04/26/2023 [facility] Source Comments (unrecognize d section and content) In the event this informatio n is protected by the Federal Confidentiality of Alcohol and Drug Abuse Patient Records regulations: The Federal rules restrict any use of the information to criminally investigate or prosecute any alcohol or drug abuse patient.[facility] CenterIn the event this information is protected by the Federal Confidentiality of Alcohol and Drug Abuse Patient Records regulations: The Federal rules restrict any use of the information to criminally investigate or prosecute any alcohol or drug abuse patient.[facility] CenterIn the event this information is protected by the Federal Confidentiality of Alcohol and Drug Abuse Patient Records regulations: The Federal rules restrict any use of the information to criminally investigate or prosecute any alcohol or drug abuse patient.[facility] CenterIn the event this information is protected by the Federal Confidentiality of Alcohol and Drug Abuse Patient Records regulations: The Federal rules restrict any use of the information to criminally investigate or prosecute any alcohol or drug abuse patient.[facility] CenterIn the event this information is protected by the Federal Confidentiality of Alcohol and Drug Abuse Patient Records regulations: The Federal rules restrict any use of the information to criminally investigate or prosecute any alcohol or drug abuse patient.[facility] CenterIn the event this information is protected by the Federal Confidentiality of Alcohol and Drug Abuse Patient Records regulations: The Federal rules restrict any use of the information to criminally investigate or prosecute any alcohol or drug abuse patient.[facility] [facility] the event this information is protected by the Federal Confidentiality of Alcohol and Drug Abuse Patient Records regulations: The Federal rules restrict any use of the information to criminally investigate or prosecute any alcohol or drug abuse patient.[facility] the event this information is protected by the Federal Confidentiality of Alcohol and Drug Abuse Patient Records regulations: The Federal rules restrict any use of the information to criminally investigate or prosecute any alcohol or drug abuse patient.[facility] Reason for Visit (unrecogniz ed section and content) Lab results Reason Comments Follow Up Reason Comments Follow Up Reason Onset Date Comments Research 10/11/2021 Reason Comments Established Patient Follow-Up Reason Comments Patient Question Specialty Diagnoses / Procedures Referred By Olegario gonsalves Referred To Contact CT IMAGING Diagnoses Ventral incisional hernia Procedures CT ABD/PEL WO IVCON CT ABD & PELVIS W/O CONTRAST Jay Mora MD [address] [place] [address] Ct Imaging Referral ID Status Reason Start Date Expiration Date V isits Requested Visits Authorized [id number] Closed Auto-Generate d Referral 10/10/2022 11/09/2022 1 1 Reason Comments Follow Up 1 year, ventral inci sional hernia Care Teams (unrecognized sec tion and content) [facility]abber Relationship Specialty Start Date End Date Juancarlos Gan DO PCP - General Internal Medicine 10/23/[address] [phone] Cardiology 09/13/21 [facility]abber Relationship Specialty Start Date End Date Juancarlos Gan DO PCP - General Internal Medicine 10/23/14 [facility] [address] [place] [phone] Cardiology 09/13/21 Crabber Relationship Specialty Start Date End Date Juancarlos Gan DO PCP - General Internal Medicine 10/23/14 [facility] [address] [place] [phone] Cardiology 09/13/21 Crabber Relationship Specialty Start Date End Date Juancarlos Gan DO PCP - General Internal Medicine 10/23/14 Pedro Benavides MD Cardiology 09/13/21 [facility]abber Relationship Specialty Start Date End Date Juancarlos Gan, DO PCP - General Internal Medicine 10/23/14 Pedro Benavides MD Cardiology 09/13/21 [facility]ab[facility] Relationship Specialty Start Date End Date Juancarlos Gan DO PCP - General Internal Medicine 10/23/14 Pedro Benavides MD Cardiology 09/13/21 [facility]ab[facility] Relationship Specialty Start Date End Date Juancarlos Gan DO PCP - General Internal Medicine 10/23/14 Pedro Benavides MD Cardiology 09/13/21 [facility]abber Relationship Specialty Start Date End Date Juancarlos Gan DO PCP - General Internal Medicine 10/23/14 Pedro Benavides MD Cardiology 09/13/21 FOR RECORDS PERTAINING TO PATIENTS WHO ARE OR HAVE BEEN ENROLLED IN A CHEMICAL DEPENDENCY/SUBSTANCEABUSE PROGRAM, SOME INFORMATION MAY BE OMITTED. This clinical summary was aggregated from multiple sources. Caution should be exercised in using it in the provision of clinical care. This summary normalizes information from multiple sources, and as a consequence, information in this document may materially change the coding, format and clinical context of patient data. In addition, data may be omitted in some cases. CLINICAL DECISIONS SHOULD BE BASED ON THE PRIMARY CLINICAL RECORDS. [facility]. provides no warranty or guarantee of the accuracy or completeness of information in this document.
--- NOTE | 2023-07-27 11:24 | P.CN_ITS ---
Consult Note: HPI Data of Consult Patient: known to practice within the last 3 years Consult date: 07/27/23 Requesting Physician: Hanh Wade MD Primary Care Provider: Juancarlos Gan DO Consult Narrative Reason for consult: Left knee, low back pain Narrative: 77yom who presents for assessment. Notes worsening pain throughout left knee and low back. Previously underwent lumbar RFA in 07/10, which provided significant relief for >6 months of >50%. Continues in course of provider directed home exercises for >6 weeks >3x/week. Utilizes tylenol, cannot take NSAIDs due to blood thinner. Also notes left knee pain that previously was relieved with knee injection. Denies adverse med side effects. cc:: CC: Hanh Wade MD Review of Systems ROS Status of ROS 10 or more systems reviewed and unremark able except as noted in history and below Meds Home Medications and Allergies Home Medications Medication Instructions Recorded Confirmed Type aspirin 81 mg tablet,delayed 81 mg PO DAILY 12/26/22 06/05/23 History release (Adult Aspirin Regimen) atorvastatin 80 mg tablet 80 mg PO DAILY 12/26/22 06/05/23 History calcium carbonate 500 mg-vitamin 1 tab PO DAILY 12/26/22 06/05/23 History D3 10 mcg (400 unit) tablet carvedilol 25 mg tablet 12.5 mg PO Q12H 12/26/22 06/05/23 History cholecalciferol (vitamin D3) 50 2,000 unit PO DAILY 12/26/22 06/05/23 History mcg (2,000 unit) tablet cinnamon bark 500 mg capsule 1,000 mg PO DAILY 12/26/22 06/05/23 History (Cinnamon) clopidogrel 75 mg tablet 75 mg PO DAILY 12/26/22 06/05/23 History glipizide 5 mg tablet 10 mg PO DAILY 12/26/22 06/05/23 History hydrochlorothiazide 25 mg tablet 25 mg PO DAILY 12/26/22 06/05/23 History lisinopril 20 mg tablet 30 mg PO DAILY 12/26/22 06/05/23 History metformin 1,000 mg tablet 500 mg PO QAM 12/26/22 06/05/23 History metoprolol tartrate 25 mg tablet 25 mg PO BID 12/26/22 12/26/22 History multivitamin 1 tab PO DAILY 12/26/22 06/05/23 History omega-3 fatty acids 1,000 mg 1,000 mg PO DAILY 12/26/22 06/05/23 History capsule pantoprazole 40 mg tablet,delayed 40 mg PO QAM 12/26/22 06/05/23 History release vitamin B complex 1 tab PO DAILY 12/26/22 12/26/22 History zinc acetate 50 mg (zinc) capsule 50 mg PO DAILY 12/26/22 05/03/23 History ondansetron 4 mg disintegrating 4 mg PO Q8H PRN nausea and 05/03/23 Rx tablet vomiting 4 days #10 tabs amlodipine 5 mg tablet 5 mg PO QDAY 06/05/23 06/05/23 History hyoscyamine sulfate 0.125 mg 0.125 mg PO Q6H PRN abdominal pain 06/05/23 Rx tablet (Levsin) #12 tabs ondansetron 4 mg disintegrating 4 mg PO Q6H PRN nausea and 06/05/23 Rx tablet vomiting #12 tabs Allergies Allergy/AdvReac Type Severity Reaction Status Date / Time No Known Drug Allergies Allergy Verified 12/26/22 13:53 Exam Narrative Exam Narrative: Psych-alert and oriented x 3. Attentive and appropriate, constitutionally normal, displays normal mood and affect per situation.? There are no obvious deficits in memory, reasoning, or intellect.? Skin-no obvious rashes, bruising, erythema noted to the patient's area of pain. Extremities- extremities are warm with minimal edema and palpable pulses. Lumbar-no significant tenderness to palpation noted in the lumbar spine and paraspinal musculature.? Pain is elicited with extension, and lateral rotation of the lumbar spine. Range of motion is slightly diminished with these motions due to pain. Facet loading maneuvers are positive bilaterally and do appear to be concordant with the patient's normal complaints of pain.? Knee-examination of the left knee reveals tenderness to palpation over the superior, inferior, lateral, and medial aspect of the knee.? Some swelling is noted without erythema. Pain is elicited with flexion and extension of the knee both actively and passively.? Some grinding is noted with these motions.? There is no notable ligamental laxity or instability.? Coordination remains intact.? Gait remains non-antalgic. Assessment and Plan Assessment and Plan (1) Lumbar spondylosis: (2) Knee osteoarthritis: Qualifiers: Osteoarthritis type: primary Laterality: left Qualified Code(s): M17.12 - Unilateral primary osteoarthritis, left knee Plan 77yom who presents for assessment. Failed conservative measures, as noted. Imaging reviewed, which is significant for spondylosis in lower lumbar spine. Given previous relief with RFA and imaging findings, prudent to repeat bilateral L4-5, L5-S1 radiofrequency ablation under fluoroscopic guidance. Will be done at 80 degrees Celsius for 90 seconds at each level. He is in agreement. In terms of left knee pain, will proceed with left knee injection today. Meds reviewed, no changes. Follow up after procedure. Procedure: Left knee injection Medications: Duralane (hyaluronic acid 60mg) Diagnosis: Left knee osteoarthritis I explained the details of the procedure to the patient including the risks, benefits and alternatives. We had an informed discussion and the patient verbalized understanding and signed the consent form. All questions were answered appropriately.? A time out was performed.? After obtaining a comfortable seated position, the left knee was prepped with alcohol x3. A syringe containing the above medication was attached to a 25 guage, 1.5 inch needle under strict aseptic technique. The lateral tibial plateau was palpated.? The needle was then advanced through the subcutaneous tissue in a medial and superior direction towards the joint space.? The contents of the syringe were gently injected without any resistance. The needle was removed and pressure was applied to the injection site to decrease the incidence of ecchymosis and hematoma formation.? A sterile bandage was applied.
== END 2023-07-27 11:03 | disposition home or self-care (01) ==
LOC: PM 11:03
PROVIDERS: PCP Internal Medicine; Visit Provider Anesthesiology
DX: M47.816 Spondylosis without myelopathy or radiculopathy, lumbar region (principal); M17.12 Unilateral primary osteoarthritis, left knee
CPT/HCPCS: 20610; J7318

== ENCOUNTER 2023-08-03 07:59 | Day surgery (SDC) | payer MEDICARE, SELFPAY ==
--- OUTSIDE RECORDS SUMMARY | 2023-08-03 08:02 | XMS_ITS | CCD ---
Author Name Unknown Address [address] [place] [address] Organization [facility] Care Team Providers Care Supervisor Production Department Name Role Phone JUANCARLOS CUENCA Referring Unavailable JUANCARLOS CUENCA Primary Care Unavailable Delonte Webb Admitting Unavailable Delonte Webb Attending Unavailable JUANCARLOS CUENCA Referring Unavailable TY AVALOS Surgeon Unavailable TY AVALOS Admitting Unavailable JUANCARLOS CUENCA Primary Care Unavailable TY AVALOS Attending Unavailable SC Procedure Practitioner Unavailab Juancarlos Delatorre DO Primary Care Provider Pedro Richardson Ahmed Unavailable [phone] Dylan VANESSA, [facility] Ahmed Unavailable JUANCARLOS CUENCA Primary Care Physician Juancarlos Cuenca Unavailable Juancarlos Cuenca DO Primary Care Provider Dylan VANESSA, [facility] Ahmed Unavailable [phone] JAY GONZALEZ Referring Unavailable JUANCARLOS CUENCA Primary Care Unavailable JAY GONZALEZ Referring Unavailable JUANCARLOS CUENCA Primary Care Unavailable JAY GONZALEZ Attending Unavailable JUANCARLOS CUENCA Primary Care Unavailable UJS BRAY Referring Unavailable JUS BRAY Attending Unavailable JUANCARLOS CUENCA Primary Care Unavailable ADAMS ., DR EVAN Mcleod Admitting Unavailable LAMAS ., DR EVAN Mcleod Consulting Unavailable BANG, DR VEGA Primary Care Unavailable LAMAS ., DR EVAN Mcleod Attending Unavailable LAKSHMIPATHY ., NARJODY Attending Janki vailable LAKSHMIPATHY ., RAINA Admitting Janki vailable LAKSHMIPATHY ., RAINA Consulting Janki vailable BANG, DR VEGA Primary Care Unavailable BANG, DR VEGA Primary Care Unavailable BANG, DR VEGA Attending Unavailable BANG, DR VEGA Admitting Unavailable BALL, DR VEGA [...] Janki vailable HALKER ., MANAV Consulting Unavailable BALL, DR VEGA Primary Care Unavailable LAKSHMIPATHY ., [...] LAMAS ., DR EVAN Mcleod Attending Unavailable ADAMS [...] Patel Attending Unavailable MARINO MOE Attending Unavailable PEDRO RICHARDSON Attending Unavailable Mauro VANESSA, Hanh Chiang Attending Unavailable Allergies Allergy Classification Reported Allergen(s) Allergy Type Date of Onset Reaction(s) Facility (20 sources) Morphine; Translations: [morphine] Drug Allergy Unknown [facility] Repository Medications Current Medications Medication Drug Class(es) [...] aily. CPAP (8 sources) CPAP daily at [facility]. 0 Active Comment on above: daily at [...] on above: Take 1 capsule by mo [facility] once daily. 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 DRUG THERAPY] Onset: 09-17-2022 Episodic Other and unspecified benign neoplasm (11 sources) Polyp of colon; Translations: [Polyp of colon] Onset: 06-07-2021 06-07-2021 Episodic Unclassified (1 source) LOW BACK PAIN, UNSPECIFIED; Translations: [LOW BACK PAIN, UNSPECIFIED] Onset: 04-24-2022 Results Test Name Value Interpretation Reference Range Facility Office Visiton 04-22-2023 Follow-up visit [id number] Vu Yee 1945 M Date Provider Department Center 04/22/2023 Flores-PEDRO RICHARDSON SONIA Michael Family History Problem Relation Age of Onset Coronary artery disease Mother Coronary artery disease Brother Family Status - Relation Status Age at Mother Brother Level of Service:51539 SC OFFICE/OUTPATIENT ESTABLISHED LOW MDM 20-29 MIN Normal [facility] Outside Colonoscopyon 2022 Outside Colonoscopy [id number] 0CD:127 Normal [facility] Reminderson 12-18-2022 Reminders - From: Amy Menon LPN To: ALDAIRN - Clinical; Sent: 12/18/2022 12:06:16 EDT Show up: 11/16/2025 07:00:00 EDT Subject: colonoscopy recall Due Date/Time: 12/17/2025 07:00:00 EDT Reminder/Recall Patient due for surveillance colonoscopy 12/17/2025. Normal [facility] POINT OF CARE GLUCOSEon 11-19 Glucose [Mass/Vol] 176 mg/dL Critically high 74-106 [facility] Comment on above: Performed By: #### P OCGLUC #### [facility] [address] [address] [address] Rojelio Kingsley POINT OF CARE GLUCOSEon 11-19 Glucose [Mass/Vol] 157 mg/dL Critically high 74-106 [facility] Comment on above: Performed By: #### P OCGLUC #### [facility] [address] [address] [address] Rojelio Kingsley Consent for Procedure/Surger yon 12-03-2022 Consent for Procedure/Surgery [id number] 0CD:127 Normal [facility] Physician Referralon 023 Physician Referral [id number] 0CD:127 Normal [facility] General Surgery Office/Clini c Noteon 12-02-2022 General [...] anastomosis and ventral hernia repair 09/2021 at [facility], they recommend yearly surveillance sigmoidoscopies; patient [...] 1 tab(s), (more content not included)... Normal [facility] Comment on above: Result Comment: Elec tronically Signed By: PELON VANESSA, Nya Patel\ashley\Date and Time Signed: 12/02/22 11:37 EDT POINT OF CARE GLUCOSEon 04-2 Glucose [Mass/Vol] 121 mg/dL Critically high 74-106 [facility] Comment on above: Performed By: #### P OCGLUC #### [facility] [address] [address] [address] Rojelio Kingsley CNOVon 10-16-2022 CNOV Office Visit ([facility] ) LIZZY YEE ([id number]) 1945 M Date Time Provider Department 10/16/22 1:20 PM JAY GONZALEZ [facility] During your visit today, we recorded [...] regular Wound: Temperature: No Drains: No Jay Gonzalez MD 10/16/2022 3:05 PM Signed [facility] - Follow Up [...] No bulging along midline with/without valsalva. Jay Gonzalez MD 10/16/22, 2:45 PM General Surgery [facility] Allergies As of Date: 10/16/2022 (No Known Allergies) Date Reviewed: 10/16/2022 Reviewed by: Destiny Zapata MA - Fully Assessed Reason for Visit: Follow Up [171] Cmt: 1 year, ventral incisional hernia Primary Visit Diagnosis:Ventral incisional hernia [K43.2] Order(s):CT ABD/PEL WO IVCON [[id number]] Order #: [id number] FUTURE enteric contrast (will be provided with [...] without long-t (more content not included)... Normal [facility] 10-11-2022 [facility] HNO ID: [id number] Author: RT Marisa(R) Service: Radiology Author Type: Technologist Type: Allied [...] Romo, RT(R) October 11, 2022 10:[address] [facility] [address] ABD/PEL WO IVCONon 2022 CT ABD/PEL WO IVCON * * *Final Report* * * DATE OF EXAM: Oct 11 2022 10:30AM [facility] 0531 - CT ABD/PEL WO IVCON / [...] site. Lower thorax: Lower lungs are clear. 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 IMPRESSION: Midline fat-containing upper abdominal hernia. Health Specialist: DANIEL Transcribe Date/Time: Oct 13 2022 7:57A Dictated by : YANICK RIVAS MD This examination was interpreted and the report reviewed and electronically signed by: YANICK RIVAS MD on Oct 13 2022 8:06AM EST [id number] [facility] 10-06-2022 [facility] Telephone ([facility]) LIZZY YEE ([id number]) 1945 M Date Time Provider Department 10/06/22 JAY GONZALEZ [facility] During your visit today, we recorded the following information about you: Anjelica Espitiaw 10/06/2022 3:09 PM Signed Pt's called he is going in for a CT scan on Thursday does he need to have a creatinine blood level, says he had one within the last month or so at a non cc facility. PH: [phone] Efrain Zamarripa RN 10/07/2022 10:43 AM Signed Returned call, went to voicemail. Left message that the CT has been ordered without contrast. Left office number for questions or concerns. Allergies As of Date: 10/06/2022 (No Known Allergies) Date Reviewed: 01/27/2022 Reviewed by: Sarah Osman MA - Fully Assessed Reason for Visit: Patient Question [4387] Prescriptions as of 10/07/2022 - lisinopril (ZESTRIL, [...] 35-39.9 [E66.9] 09/25/2021 Encounter Status:Closed by EFRAIN ZAMARRIPA on 10/07/22 Normal [facility] Consent for Procedure/Surger yon 09-17-2022 Consent for Procedure/Surgery [id number] 0CD:127 Normal [facility] RAD - Ultrasound Reporton RAD - Ultrasound Report [id number] 0CD:127 Normal [facility] Ambulatory Visit Summaryon 0 09-16-2022 Ambulatory Visit Summary LIZZY YEE :1945 Visit Date:09/16/2022 Ambulatory Visit Instructions Your Diagnosis Personal history of colonic polyps Your Care Team Attending Physician - PELON VANESSA, Nya Patel Primary Care Physician - JUANCARLOS CUENCA DO This Is Your Medications List Contact prescribing [...] no longer receiving treatment for. Hyperlipidemia Normal [facility] Ambulatory Visit Summary LIZZY YEE :1945 Visit Date:09/16/2022 Ambulatory Visit Instructions Your Care Team Attending Physician - PELON VANESSA, Nya Patel Primary Care Physician - JUANCARLOS CUENCA DO This Is Your Medications List Contact prescribing [...] no longer receiving treatment for. Hyperlipidemia Normal [facility] General Surgery Office/Clini c Noteon 09-16-2022 General [...] anastomosis and ventral hernia repair 09/2021 at [facility]; requires yearly flexible sigmoidoscopy for surveillance. [...] Oral, Nathalie (more content not included)... Normal [facility] Comment on above: Result Comment: Elec tronically Signed By: PELON VANESSA, Nya Nicholson\Date and Time Signed: 09/16/22 11:17 EST Alanine Aminotransferaseon 0 09-12-2022 ALT [Catalytic activity/Vol] 30 U/L Normal 16-63 [employer] Other Comment on above: Performed By: #### B MP, ALT, LIPID #### [facility] [address] [address] [address] Rojelio Kingsley Basic Metabolic Panelon 08-21 Calcium [Mass/Vol] 9.4002648 mg/dL 8.5-10 .1 mg/dL [employer] Other CO2 [Moles/Vol] 25.17481724 mmol/L 21.0-3 2.0 mmol/L [employer] Other Creatinine [Mass/Vol] 1.87308078 mg/dL Critically high 0.70-1.30 mg/dL [employer] Other Potassium [Moles/Vol] 4.36980062 mmol/L 3 .5-5.1 mmol/L [employer] Other Urea nitrogen [Mass/Vol] 16.1648878 mg/dL 7.0-18.0 mg/dL [employer] Other Basic Metabolic Panel see note Nor [employer] Other Basic Metabolic Panel 141 mmol/L 136-14 5 mmol/L [employer] Other Basic Metabolic Panel 134 mg/dL Critically high 74-106 mg /dL [employer] Other Basic Metabolic Panel 51 mL/min/1.73m2 Critically low >=60 mL/min/1.73m 2 [employer] Other Basic Metabolic Panel >60 mL/min/1.73m2 > =60 mL/min/1.73m 2 [employer] Other Anion gap [Moles/Vol] 15.2 mmol/L Normal No rt [employer] Other Comment on above: Performed By: #### B MP, ALT, LIPID #### [facility] [address] [place] [address] Dr. Rojelio Kingsley Chloride [Moles/Vol] 105 mmol/L Normal 98-107 [facility] Other Comment on above: Performed By: #### B MP, ALT, LIPID #### [facility] [address] [place] [address] Dr. Rojelio Kingsley Urea nitrogen/Creatinine [Mass ratio] 11.8 mg/mg Normal [place] [employer] Other Comment on above: Performed By: #### B MP, ALT, LIPID #### [facility] [address] [place] [address] Dr. Rojelio Kingsley CBC AUTO DIFFon 09-12-2022 BASO # 0.0 103/ul Normal 0.0-0.1 [facility] Comment on above: Performed By: #### C BC #### [facility] [address] [place] [address] Dr. Rojelio Kingsley Basophils/100 WBC (Bld) 0.4 % Normal 0.2-2.0 [facility] Comment on above: Performed By: #### C BC #### [facility] [address] [place] [address] Dr. Rojelio Kingsley EO # 0.3 103/ul Normal 0.0-0.7 [facility] Comment on above: Performed By: #### C BC #### [facility] [address] [place] [address] Dr. Rojelio Kingsley Eosinophils/100 WBC (Bld) 3.6 % Normal 0.9-7.0 [facility] Comment on above: Performed By: #### C BC #### [facility] [address] [place] [address] Dr. Rojelio Kingsley Erythrocyte distribution width (RBC) [Ratio] 14.1 % Normal 11.0-15.0 [facility] Comment on above: Performed By: #### C BC #### [facility] [address] [place] [address] Dr. Rojelio Kingsley Hematocrit (Bld) [Volume fraction] 40.1 % Critically low 42.0-54.0 [facility] Comment on above: Performed By: #### C BC #### [facility] [address] [place] [address] Dr. Rojelio Kingsley Hemoglobin (Bld) [Mass/Vol] 13.4 g/dL Critically low 14.0-18.0 [facility] Comment on above: Performed By: #### C BC #### [facility] [address] [place] [address] Dr. Rojelio Kingsley IG # 0.02 10e3/ul Normal 0.00-0.03 [facility] Comment on above: Performed By: #### C BC #### [facility] [address] [place] [address] Dr. Rojelio Kingsley IG % 0.2 % Normal 0.0-0.5 [facility] Comment on above: Performed By: #### C BC #### [facility] [address] [place] [address] Dr. Rojelio Kingsley LYMPH # 1.8 103/ul Normal 1.2-3.8 [facility] Comment on above: Performed By: #### C BC #### [facility] [address] [place] [address] Dr. Rojelio Kingsley Lymphocytes/100 WBC (Bld) 21.9 % Normal 20.5-60.0 [facility] Comment on above: Performed By: #### C BC #### [facility] [address] [place] [address] Dr. Rojelio Kingsley MANUAL DIFF REQ NO Normal [facility] Comment on above: Performed By: #### C BC #### [facility] [address] [place] [address] Dr. Rojelio Kingsley MCH (RBC) [Entitic mass] 30.6 pg Normal 25.9-34.0 [facility] Comment on above: Performed By: #### C BC #### [facility] [address] [place] [address] Dr. Rojelio Kingsley MCHC (RBC) [Mass/Vol] 33.4 g/dL Normal 29.9-35.2 [facility] Comment on above: Performed By: #### C BC #### [facility] [address] [address] [address] Rojelio Kingsley MCV (RBC) [Entitic vol] 91.6 fL Normal 80.0-94.0 [facility] Comment on above: Performed By: #### C BC #### [facility] [address] [address] [address] Rojelio Kingsley MONO # 0.8 103/ul Normal 0.3-0.8 [facility] Comment on above: Performed By: #### C BC #### [facility] [address] [address] [address] Rojelio Kingsley Monocytes/100 WBC (Bld) 9.3 % Normal 1.7-12.0 [facility] Comment on above: Performed By: #### C BC #### [facility] [address] [address] [address] Rojelio Kingsley NEUT # 5.4 103/ul Normal 1.4-6.5 [facility] Comment on above: Performed By: #### C BC #### [facility] [address] [address] [address] Rojelio Kingsley Neutrophils/100 WBC (Bld) 64.6 % Normal 43.0-75.0 [facility] Comment on above: Performed By: #### C BC #### [facility] [address] [address] [address] Rojelio Kingsley Platelet mean volume (Bld) [Entitic vol] 10.3 fL Normal 9.5-13.5 [facility] Comment on above: Performed By: #### C BC #### [facility] [address] [address] [address] Rojelio Kingsley PLT 214 103/ul Normal 150-[address] [facility] Comment on above: Performed By: #### C BC #### [facility] [address] [address] [address] Rojelio Kingsley RBC 4.38 106/ul Critically low 4.70-6.10 [facility] Comment on above: Performed By: #### C BC #### [facility] [address] [address] [address] Rojelio Kingsley WBC 8.4 103/ul Normal 4.0-11.0 [facility] Comment on above: Performed By: #### C BC #### [facility] [address] [address] [address] Rojelio Kingsley GLYCOHEMOGLOBIN A1Con 2022 ADA RECOMMENDATION SEE BELOW Normal [facility] Comment on above: Result Comment: ADA RECOMMENDED LIMIT 4.0 - 6.0 ADA THERAPEUTIC TARGET < 7.0 ACTION SUGGESTED > 7.0 Performed By: #### P OCGLUC #### [facility] [address] [place] [address] Dr. Rojelio Kingsley Glucose [Mass/Vol] 169 mg/dL Normal [facility] Comment on above: Performed By: #### P OCGLUC #### [facility] [address] [place] [address] Dr. Rojelio Kingsley HbA1c (Bld) [Mass fraction] 7.5 % Critically high 4.5-6.2 [facility] Comment on above: Performed By: #### P OCGLUC #### [facility] [address] [place] [address] Dr. Rojelio Kingsley LIPID PROFILEon 09-12-2022 CHOL-HDL RATIO NORM SEE BELOW Normal [facility] Comment on above: Result Comment: 3.3 - 4.4 LOW RISK 4.4 - 7.1 AVERAGE RISK 7.1 - 11.0 MODERATE RISK >11.0 HIGH RISK Performed By: #### B MP, ALT, LIPID #### [facility] [address] [place] [address] Dr. Rojelio Kingsley Cholesterol in LDL [Mass/Vol] 31.2 mg/dL Normal [facility] Comment on above: Performed By: #### B MP, ALT, LIPID #### [facility] [address] [place] [address] Dr. Rojelio Kingsley HDL NORMAL > or = 60 mg/dl - LO W CARDIOVASCULAR RISK <40 mg/dl - HIGH CARDIOVASCULAR RISK Normal [facility] Comment on above: Performed By: #### B MP, ALT, LIPID #### [facility] [address] [place], [place] [address] Dr. Rojelio Kingsley LDL CALC NORMAL SEE BELOW Normal [facility] Comment on above: Result Comment: <100 mg/dl OPTIMAL 100 - 129 mg/dl NEAR OR ABOVE OPTIMAL 130 - 159 mg/dl BORDERLINE HIGH 160 - 189 mg/dl HIGH >190 mg/dl VERY HIGH Performed By: #### B MP, ALT, LIPID #### [facility] [address] [place], [place] [address] Dr. Rojelio Kingsley VLDL CALC 40.8 mg/dL Normal [facility] Comment on above: Performed By: #### B MP, ALT, LIPID #### [facility] [address] [place], [place] [id number] Dr. Rojelio Kingsley Lipid Panelon 09-12-2022 Lipid Panel > or = 60 mg/dl - LO W CARDIOVASCULAR RISK <40 mg/dl - HIGH CARDIOVASCULAR RISK [employer] Other Lipid Panel SEE BELOW [employer] Other Lipid Panel 31.2 mg/dL [employer] Other Lipid Panel 40.8 mg/dL [employer] Other Cholesterol [Mass/Vol] 115 mg/dL Normal <=200 [employer] Other Comment on above: Performed By: #### B MP, ALT, LIPID #### [facility] [id number] Rojelio Kingsley Cholesterol in HDL [Mass/Vol] 43 mg/dL Normal 40-60 [employer] Other Comment on above: Performed By: #### B MP, ALT, LIPID #### [facility] [address] [place] [address] [address] [address] Rojelio Kingsley Cholesterol.total/Cho lesterol in HDL [Mass ratio] 2.7 {ratio} Normal [employer] [facility] [employer] Other Comment on above: Performed By: #### B MP, ALT, LIPID #### [facility] [address] [address] [address] Rojelio Kingsley Triglyceride [Mass/Vol] 204 mg/dL Critically high <=150 [employer] Other Comment on above: Performed By: #### B MP, ALT, LIPID #### [facility] [address] [place] [address] Dr. Rojelio Kingsley MICROALBUMIN, RAND URon 02-2 mALB 2.1 mg/L Normal <=30.0 [facility] Comment on above: Performed By: #### M ALBR #### [facility] [address] [address] [address] Rojelio Kingsley PROF CHEM 8 (BAS METB)on Calcium [Mass/Vol] 9.6 mg/dL Normal 8.5-10.1 [facility] Comment on above: Performed By: #### B MP, ALT, LIPID #### [facility] [address] [place] [address] Dr. Rojelio Kingsley CO2 [Moles/Vol] 25.1 mmol/L Normal 21.0-32.0 [facility] Comment on above: Performed By: #### B MP, ALT, LIPID #### [facility] [address] [place] [address] Dr. Rojelio Kingsley Creatinine [Mass/Vol] 1.36 mg/dL Critically high 0.70-1.30 [facility] Comment on above: Performed By: #### B MP, ALT, LIPID #### [facility] [address] [place] [address] Dr. Rojelio Kingsley EGFR-AF BELARUSIAN >60 Normal >=60 [facility] Comment on above: Performed By: #### B MP, ALT, LIPID #### [facility] [address] [place] [address] Dr. Rojelio Kingsley EGFR-NON AF BELARUSIAN 51 mL/min/1.73m2 Critically low >=60 [facility] Comment on above: Performed By: #### B MP, ALT, LIPID #### [facility] [address] [place] [address] Dr. Rojelio Kingsley Glucose [Mass/Vol] 134 mg/dL Critically high 74-106 [facility] Comment on above: Performed By: #### B MP, ALT, LIPID #### [facility] [address] [address] [address] Rojelio Kingsley Potassium [Moles/Vol] 4.3 mmol/L Normal 3.5-5.1 [facility] Comment on above: Performed By: #### B MP, ALT, LIPID #### [facility] [address] [address] [address] Rojelio Kingsley Sodium [Moles/Vol] 141 mmol/L Normal 136-145 [facility] Comment on above: Performed By: #### B MP, ALT, LIPID #### [facility] [address] [place] [address] Dr. Rojelio Kingsley Urea nitrogen [Mass/Vol] 16.0 mg/dL Normal 7.0-18.0 [facility] Comment on above: Performed By: #### B MP, ALT, LIPID #### [facility] [address] [place] [address] Dr. Rojelio Kingsley US CAROTID ART BILon [...] GABY PADILLA Date: 2022-09-12 15:[address] [facility] US CAROTID ART ZHENG [employer] Other Orders Onlyon 07-24-2022 Orders Only [id number] Vu Yee 1945 M Date Provider Department Center 07/24/2022 ZOFIA MARTINO [facility] Family History Problem Relation Age of Onset Coronary artery disease Mother Coronary artery disease Brother Family Status - Relation Status Age at Mother Brother Normal [facility] POINT OF CARE GLUCOSEon 06-19 Glucose [Mass/Vol] 106 mg/dL Normal 74-106 [facility] Comment on above: Performed By: #### P OCGLUC #### [facility] [address] [place], [place] [address] Dr. Rojelio Kingsley Covid-19 PCR (CVDTB)on SARS-CoV-2 (COVID-19) RNA MITCHELL+probe Ql (Unsp spec) Not detected Normal NOT DETECTED [facility] Comment on above: Result Comment: This test is not yet approved or cleared by the [place] FDA. When there are no FDA-approved or cleared tests available, and other criteria are met, FDA can make tests available under an emergency access mechanism called an Emergency Use Authorization (EUA). The EUA for this test is supported by the Right Of Way Maintenance Supervisor of Health and Human Service's (HHS's) declaration [...] SARS-CoV-2. Performed By: #### P OCGLUC #### [facility] [address] [place], [place] [address] Dr. Rojelio Kingsley 29on 05-19-2022 29 Addended by: MARINO MOE on: 05/19/2022 03:14 PM Modules accepted: Level of Service Normal [facility] Follow-Upon 05-19-2022 Follow-Up [id number] Vu Yee 1945 M Date Provider Department Center 05/19/2022 MARINO GRAVES [facility] Family History Problem Relation Age of Onset Coronary artery disease Mother Coronary artery disease Brother Family Status - Relation Status Age at Mother Brother Level of Service:66358 SC OFFICE/OUTPATIENT ESTABLISHED LOW MDM 20-29 MIN Reason for Visit and Comments: Coronary Artery Disease [187] Hypertension [568113] Peripheral Vascular Disease [458] Normal [facility] POINT OF CARE GLUCOSEon 04-20 Glucose [Mass/Vol] 129 mg/dL Critically high 74-106 [facility] Comment on above: Performed By: #### P OCGLUC #### [facility] [address] [address] [address] Rojelio Kingsley POINT OF CARE GLUCOSEon 03-21 Glucose [Mass/Vol] 116 mg/dL Critically high 74-106 [facility] Comment on above: Performed By: #### P OCGLUC #### [facility] [address] [address] [address] Rojelio Kingsley XR LSPINE 2_3 VIEWSon [...] by: GABY PADILLA Date: 2022-03-05 13:06 Normal [facility] CBC AUTO DIFFon 02-22-2022 BASO # 0.0 103/ul Normal 0.0-0.1 [facility] Comment on above: Performed By: #### P OCGLUC #### [facility] [address] [address] [address] Rojelio Kingsley Basophils/100 WBC (Bld) 0.4 % Normal 0.2-2.0 [facility] Comment on above: Performed By: #### P OCGLUC #### [facility] [address] [address] [address] Rojelio Kingsley EO # 0.3 103/ul Normal 0.0-0.7 [facility] Comment on above: Performed By: #### P OCGLUC #### [facility] [address] [address] [address] Rojelio Kingsley Eosinophils/100 WBC (Bld) 3.0 % Normal 0.9-7.0 [facility] Comment on above: Performed By: #### P OCGLUC #### [facility] [address] [place] [address] Dr. Rojelio Kingsley Erythrocyte distribution width (RBC) [Ratio] 14.4 % Normal 11.0-15.0 [facility] Comment on above: Performed By: #### P OCGLUC #### [facility] [address] [place] [address] Dr. Rojelio Kingsley Hematocrit (Bld) [Volume fraction] 37.1 % Critically low 42.0-54.0 [facility] Comment on above: Performed By: #### P OCGLUC #### [facility] [address] [place] [address] Dr. Rojelio Kingsley Hemoglobin (Bld) [Mass/Vol] 12.2 g/dL Critically low 14.0-18.0 [facility] Comment on above: Performed By: #### P OCGLUC #### [facility] [address] [address] [address] Rojelio Kingsley IG # 0.03 10e3/ul Normal 0.00-0.03 [facility] Comment on above: Performed By: #### P OCGLUC #### [facility] [address] [address] [address] Rojelio Kingsley IG % 0.4 % Normal 0.0-0.5 [facility] Comment on above: Performed By: #### P OCGLUC #### [facility] [address] [address] [address] Rojelio Kingsley LYMPH # 1.8 103/ul Normal 1.2-3.8 [facility] Comment on above: Performed By: #### P OCGLUC #### [facility] [address] [address] [address] Rojelio Kingsley Lymphocytes/100 WBC (Bld) 21.6 % Normal 20.5-60.0 [facility] Comment on above: Performed By: #### P OCGLUC #### [facility] [address] [address] [address] Rojelio Kingsley MANUAL DIFF REQ NO Normal [facility] Comment on above: Performed By: #### P OCGLUC #### [facility] [address] [place] [address] Dr. Rojelio Kingsley MCH (RBC) [Entitic mass] 30.0 pg Normal 25.9-34.0 [facility] Comment on above: Performed By: #### P OCGLUC #### [facility] [address] [address] [address] Rojelio Kingsley MCHC (RBC) [Mass/Vol] 32.9 g/dL Normal 29.9-35.2 [facility] Comment on above: Performed By: #### P OCGLUC #### [facility] [address] [address] [address] Rojelio Kingsley MCV (RBC) [Entitic vol] 91.4 fL Normal 80.0-94.0 [facility] Comment on above: Performed By: #### P OCGLUC #### [facility] [address] [address] [address] Rojelio Kingsley MONO # 0.7 103/ul Normal 0.3-0.8 [facility] Comment on above: Performed By: #### P OCGLUC #### [facility] [address] [address] [address] Rojelio Kingsley Monocytes/100 WBC (Bld) 8.4 % Normal 1.7-12.0 [facility] Comment on above: Performed By: #### P OCGLUC #### [facility] [address] [address] [address] Rojelio Kingsley NEUT # 5.5 103/ul Normal 1.4-6.5 [facility] Comment on above: Performed By: #### P OCGLUC #### [facility] [address] [address] [address] Rojelio Kingsley Neutrophils/100 WBC (Bld) 66.2 % Normal 43.0-75.0 [facility] Comment on above: Performed By: #### P OCGLUC #### [facility] [address] [address] [address] Rojelio Kingsley Platelet mean volume (Bld) [Entitic vol] 10.3 fL Normal 9.5-13.5 [facility] Comment on above: Performed By: #### P OCGLUC #### [facility] [address] [address] [address] Rojelio Kingsley PLT 202 103/ul Normal 150-450 [facility] Comment on above: Performed By: #### P OCGLUC #### [facility] [address] [address] [address] Rojelio Kingsley RBC 4.06 106/ul Critically low 4.70-6.10 [facility] Comment on above: Performed By: #### P OCGLUC #### [facility] [address] [address] [address] Rojelio Kingsley WBC 8.3 103/ul Normal 4.0-11.0 [facility] Comment on above: Performed By: #### P OCGLUC #### [facility] [address] [address] [address] Rojelio Kingsley GLYCOHEMOGLOBIN A1Con 2021 ADA RECOMMENDATION SEE BELOW Normal [facility] Comment on above: Result Comment: ADA RECOMMENDED LIMIT 4.0 - 6.0 ADA THERAPEUTIC TARGET < 7.0 ACTION SUGGESTED > 7.0 Performed By: #### A 1C #### [facility] [address] [address] [address] Rojelio Kingsley Glucose [Mass/Vol] 151 mg/dL Normal [facility] Comment on above: Performed By: #### A 1C #### [facility] [address] [address] [address] Rojelio Kingsley HbA1c (Bld) [Mass fraction] 6.9 % Critically high 4.5-6.2 [facility] Comment on above: Performed By: #### A 1C #### [facility] [address] [place], [place] [address] Dr. Rojelio Kingsley Consultation Noteon 02-19-20 Consultation Note [id number]:[id number] Normal [facility] CNOVon 01-27-2022 [facility] Office Visit ([facility] ) LIZZY YEE ([id number]) 1945 M Date Time Provider Department 01/27/22 1:00 PM JUS BRAY [facility] During your visit today, we [...] with concomitant abdominal wall reconstruction with Dr. Gonzalez 10/04. Patient is presenting for follow up. [...] with concomitant abdominal wall reconstruction with Dr. Gonzalez 10/04. Patient is presenting for follow up. [...] None Temperature: No Drains: No Referring Provider: UJS BRAY [[id number]] Allergies As of Date: 01/27/2022 (No Known Allergies) Date Reviewed: 01/27/2022 Reviewed by: Sarah Osman MA - Fully Assessed Reason for Visit: Established Patient Follow-Up [[id number]] Primary Visit Diagnosis:Polyposis of colon [K63.5] Other [...] 3-6 mo (more content not included)... Normal [facility] KNEE RIGHT 3 [facility] KNEE RIGHT 3 S [facility] Department of Radiology [address] [place] [address] ======== Patient Name: LIZZY YEE : 1945 Sex: M Age: Race: White Pt. Location: Patient Status: Ordered Date: 01/09/2021 1:10:00 PM Completed Date: 01/09/2021 01:11 PM Requesting Provider: TY AVALOS Attending Provider: Report Copy To: Signs & Symptoms: Z96.659 Presence of unspecified artificial knee joint I10 History: Comments: Exam: KNEE RIGHT 3 S ======== [facility]EE RIGHT 3 [facility] HISTORY: Knee replacement, follow-up. COMPARISON: 12/26/2020. IMPRESSION: 1. Redemonstrated total knee prosthesis, no hardware complication or acute abnormality. No significant joint effusion. Mild soft tissue swelling noted. Electronically signed: Mitul Banks. Transcribed by: [email or web address], User Resident: Electronically Signed by: MITUL BANKS @ 01/09/2021 08:47 PM Normal [facility] POC GLUCOSE LABon 12-29-2020 Glucose [Mass/Vol] 194 mg/dL High 70-100 [facility] Comment on above: Performed By: #### 8 5499 #### [address] [place] [address], [place] Glucose [Mass/Vol] 125 mg/dL High 70-100 [facility] Comment on above: Performed By: #### 8 [id number] #### [facility] [address] [place] [address], [place] POC GLUCOSE LABon 12-28-2020 Glucose [Mass/Vol] 197 mg/dL High 70-100 [facility] Comment on above: Performed By: #### 8 [id number] #### [facility] [address] [place] [address], [place] Glucose [Mass/Vol] 177 mg/dL High 70-100 [facility] Comment on above: Performed By: #### 8 5499 #### [facility] [address] [place] [address], [place] Glucose [Mass/Vol] 215 mg/dL High 70-100 [facility] Comment on above: Performed By: #### 8 5499 #### [facility] [address] [place] [address], [place] Glucose [Mass/Vol] 152 mg/dL High 70-100 [facility] Comment on above: Performed By: #### 8 [id number] #### [facility] [address] [place] [address], [place] BASIC METABOLIC PANELon 12-18 Calcium [Mass/Vol] 8.2 mg/dL Low 8.6-10.3 [facility] Comment on above: Order Comment: No: D o not add to previous draw Performed By: #### 8 [id number] #### [facility] [address] [place] [address], [place] Chloride [Moles/Vol] 102 mmol/L Normal 98-107 The [facility] Comment on above: Order Comment: No: D o not add to previous draw Performed By: #### 8 [id number] #### [facility] [address] [place] [address], [place] CO2 [Moles/Vol] 23 mmol/L Normal 21-31 [facility] Comment on above: Order Comment: No: D o not add to previous draw Performed By: #### 8 [id number] #### [facility] [address] [place] [address], [place] Creatinine [Mass/Vol] 0.97 mg/dL Normal 0.70-1.30 [facility] Comment on above: Order Comment: No: D o not add to previous draw Performed By: #### 8 [id number] #### [facility] [address] [place] [address], [place] GFR/1.73 sq M.predicted among blacks MDRD (S/P/Bld) [Vol rate/Area] mL/min/{1.73_m2} Normal >60 [facility] Comment on above: Order Comment: No: D o not add to previous draw Result Comment: Calc ulation may not be valid for patients over 70 years Performed By: #### 8 [id number] #### [facility] [address] [place] [address], [place] GFR/1.73 sq M.predicted among non-blacks MDRD (S/P/Bld) [Vol rate/Area] mL/min/{1.73_m2} Normal >60 [facility] Comment on above: Order Comment: No: D o not add to previous draw Result Comment: Calc ulation may not be valid for patients over 70 years Performed By: #### 8 [id number] #### [facility] [address] [place] [address], [place] Glucose [Mass/Vol] 191 mg/dL High 70-100 [facility] Comment on above: Order Comment: No: D o not add to previous draw Performed By: #### 8 [id number] #### [facility] [address] [place] [address], [place] Potassium [Moles/Vol] 3.8 mmol/L Normal 3.5-5.1 The [facility] Comment on above: Order Comment: No: D o not add to previous draw Performed By: #### 8 [id number] #### [facility] [address] [place] [address], [facility] Sodium [Moles/Vol] 134 mmol/L Low 136-145 [facility] Comment on above: Order Comment: No: D o not add to previous draw Performed By: #### 8 [id number] #### [facility] [address] [place] [address], [facility] Urea nitrogen [Mass/Vol] 23 mg/dL Normal 7-25 The [facility] Comment on above: Order Comment: No: D o not add to previous draw Performed By: #### 8 [id number] #### [facility] [address] [place] [address], [facility] CBC COMPLETE BLOOD COUNTon 0 12-27-2020 Erythrocyte distribution width (RBC) [Ratio] 13.3 % Normal 11.5-15.0 The [facility] Comment on above: Order Comment: No: D o not add to previous draw Performed By: #### 8 [id number] #### [facility] [address] [place] [address], [facility] Hematocrit (Bld) [Volume fraction] 35.4 % Low 39.0-50.0 The [facility] Comment on above: Order Comment: No: D o not add to previous draw Performed By: #### 8 [id number] #### [facility] [address] [place] [address], [facility] Hemoglobin (Bld) [Mass/Vol] 11.7 g/dL Low 13.0-17.0 The [facility] Comment on above: Order Comment: No: D o not add to previous draw Performed By: #### 8 [id number] #### [facility] [address] [place] [address], [place] MCH (RBC) [Entitic mass] 31.2 pg Normal 27.0-33.0 The [facility] Comment on above: Order Comment: No: D o not add to previous draw Performed By: #### 8 [id number] #### [facility] [address] [facility]. [address] MCHC (RBC) [Mass/Vol] 33.1 g/dL Normal 32.0-35.0 The [facility] Comment on above: Order Comment: No: D o not add to previous draw Performed By: #### 8 [id number] #### [facility] [address] [facility]. [address] MCV (RBC) [Entitic vol] 94.4 fL Normal 82.0-98.0 The [facility] Comment on above: Order Comment: No: D o not add to previous draw Performed By: #### 8 [id number] #### [facility] [address] [facility]. [address] Nucleated RBC/100 WBC (Bld) [Ratio] 0 % Normal 0-0 The [facility] Comment on above: Order Comment: No: D o not add to previous draw Performed By: #### 8 [id number] #### [facility] [address] [facility] [place] [address], [facility] PLAT CNT 177 10*3/uL Normal 150-400 [facility] Comment on above: Order Comment: No: D o not add to previous draw Performed By: #### 8 [id number] #### [facility] [address] [facility] [place] [place] [address], [facility] RBC (Bld) [#/Vol] 3.75 10*6/uL Low 4.20-5.70 The [facility] Comment on above: Order Comment: No: D o not add to previous draw Performed By: #### 8 [id number] #### [facility] [address] [place] [address], [facility] WBC (Bld) [#/Vol] 16.83 10*3/uL High 4.00-10.60 The [facility] Comment on above: Order Comment: No: D o not add to previous draw Performed By: #### 8 [id number] #### [facility] [address] [place], [place] [address] Operative Reporton Operative Report MR#: [id number] I [facility] Pt. Name: Lizzy Yee Room #: [id number] Discharge Date: Birthdate: 1945 OPERATIVE REPORT DATE OF SURGERY: 12/26/2020 SURGEON: Ty Avalos M.D. PRIMARY CARE PHYSICIAN: Juancarlos Cuenca D.O. ASSISTANTS: 1. Dano Cano MD, resident [...] surgery. He has been cleared by his liaison officer for his surgery as well. The patient signed the consent form. Site was marked. We proceed with IV antibiotics in the form of 2 g of Ancef within an hour of the incision. PROCEDURE IN DETAIL: After written consent obtained, site was marked. The patient was taken to the [facility] OR and was seen by anesthesia. He [...] futu (more content not included)... Normal The [facility] POC GLUCOSE LABon 12-27-2020 Glucose [Mass/Vol] 200 mg/dL High 70-100 [facility] Comment on above: Performed By: #### 8 [id number] #### [facility] [address] [place] [address], [place] Glucose [Mass/Vol] 186 mg/dL High 70-100 [facility] Comment on above: Performed By: #### 8 [id number] #### [facility] [address] [place] [address], [place] Glucose [Mass/Vol] 250 mg/dL High 70-100 [facility] Comment on above: Performed By: #### 8 [id number] #### [facility] [address] [facility] [place] [address], [place] Glucose [Mass/Vol] 177 mg/dL High 70-100 [facility] Comment on above: Performed By: #### 8 [id number] #### [facility] [address] [place] [address], [place] POC GLUCOSE LABon 12-26-2020 Glucose [Mass/Vol] 230 mg/dL High 70-100 [facility] Comment on above: Performed By: #### 8 [id number] #### [facility] [address] [place] [address], [place] Glucose [Mass/Vol] 278 mg/dL High 70-100 [facility] Comment on above: Performed By: #### 8 [id number] #### [facility] [address] [facility] [place] [address], [facility] Glucose [Mass/Vol] 174 mg/dL High 70-100 [facility] Comment on above: Performed By: #### 8 [id number] #### [facility] [address] [place] [address], [place] Glucose [Mass/Vol] 146 mg/dL High 70-100 [facility] Comment on above: Performed By: #### 8 [id number] #### [facility] [address] [facility] [place] [address], [facility] PORTABLE KNEE RIGHT 2 VWSon 12-26-2020 PORTABLE KNEE RIGHT 2 [facility] Department of Radiology [address] [place] [phone] ======== Patient Name: LIZZY YEE : 1945 Sex: M Age: Race: White Pt. Location: [id number] Patient Status: I Ordered Date: 12/26/2020 7:05:00 [...] of right knee replacement. Electronically signed: José Thornton. Transcribed by: [email or web address], User Resident: JOSÉ THORNTON Electronically Signed by: JOSÉ THORNTON @ 12/26/2020 03:28 PM I personally read this/these film(s) with this resident Normal The [facility] Comment on above: Order Comment: Hardw are Evaluation, In PACU; HIP RIGHT 1 OR 2 VWS WITH PE LVISon 10-05-2020 HIP RIGHT 1 OR 2 VWS WITH PELVIS [facility] Department of Radiology [address] [place] [phone] ======== Patient Name: LIZZY YEE : 1945 Sex: M Age: Race: White Pt. Location: Patient Status: O Ordered Date: 10/05/2020 11:05:00 AM Completed Date: 10/05/2020 11:08 AM Requesting Provider: TY AVALOS Attending Provider: TY AVALOS Report Copy To: Signs & Symptoms: Z96.649 [...] narrowing. Electronically signed: Mitul Banks. Transcribed by: [email or web address], User Resident: Electronically Signed by: MITUL BANKS @ 10/05/2020 01:08 PM Normal The [facility] Comment on above: Order Comment: Views (X-RAY, HIP): AP Pelvis, X-Table Lateral Hip , Weight Bearing?: Y KNEE LEFT 4VWSon 08-20-2020 KNEE LEFT 4VWS [facility] Department of Radiology [address] [place] [phone] ======== Patient Name: LIZZY YEE : 1945 Sex: M Age: Race: White Pt. Location: Patient Status: O Ordered Date: 08/20/2020 8:10:00 AM Completed Date: 08/20/2020 08:14 AM Requesting Provider: CEDRICK WILD Attending Provider: CEDRICK WILD Report Copy To: Signs & Symptoms: M25.569 Pain in unspecified knee I10 History: [place] Comments: Views (X-RAY, KNEE): AP, Lateral, Tunnel, Erskine , Weight Bearing?: Y Exam: KNEE LEFT 4VWS ======== KNEE LEFT 4VWS 08/20/2020 8:14 AM CLINICAL INDICATIONS: M25.569 Pain in unspecified knee I10 TECHNOLOGIST COMMENTS: Patient states having bilateral knee pain. QUESTION FOR THE RADIOLOGIST: Views (X-RAY, KNEE): AP, Lateral, Tunnel, Erskine , Weight Bearing?: Y PROTOCOL: AP,Lateral,Tunnel and [...] medial compartment and patellofemoral compartment. Approved by:Tamera Marie on08/20/2020 8:32 AM. I, Ej Francisco,have reviewed the images and reports Electronically signed: Ej Francisco. Transcribed by: [email or web address], User Resident: TAMERA MARIE Electronically Signed by: EJ FRANCISCO @ 08/20/2020 08:41 AM I personally read this/these film(s) with this resident Normal The [facility] Comment on above: Order Comment: Views (X-RAY, KNEE): AP, Lateral, Tunnel, Erskine , Weight Bearing?: Y KNEE RIGHT 4 [facility] KNEE RIGHT 4 [facility] Department of Radiology [address] [place] [phone] ======== Patient Name: LIZZY YEE : 1945 Sex: M Age: Race: White Pt. Location: Patient Status: O Ordered Date: 08/20/2020 8:10:00 AM Completed Date: 08/20/2020 08:14 AM Requesting Provider: CEDRICK WILD Attending Provider: CEDRICK WILD Report Copy To: Signs & Symptoms: M25.569 Pain in unspecified knee I10 History: [place] Comments: Views (X-RAY, KNEE): AP, Lateral, Tunnel, Erskine , Weight Bearing?: Y Exam: KNEE RIGHT 4 S ======== KNEE RIGHT 4 S 08/20/2020 8:14 AM SIGNS AND SYMPTOMS: M25.569 Pain in unspecified knee I10 TECHNOLOGIST COMMENTS: Patient states having bilateral knee pain. QUESTION FOR THE RADIOLOGIST: Views (X-RAY, KNEE): AP, Lateral, Tunnel, Erskine , Weight Bearing?: Y PROTOCOL: AP,Lateral,Tunnel and [...] arthritis in right knee. Electronically signed: Ej Francisco. Transcribed by: [email or web address], User Resident: Electronically Signed by: EJ FRANCISCO @ 08/20/2020 08:30 AM Normal The [facility] Comment on above: Order Comment: Views (X-RAY, KNEE): AP, Lateral, Tunnel, Erskine , Weight Bearing?: Y Vital Signs Date Time Vital Sign Value Performing Clinician Facility 06-05-2023 10:00-0500 Body height 165.1 cm Juancarlos Cuenca Other [facility] [employer] Other 06-05-2023 10:00-0500 Body mass index (BMI) [Ratio] 39.87 kg/m2 Juancarlos Cuenca Other [facility] [employer] Other 06-05-2023 10:00-0500 Body weight 108.68 kg Juancarlos Ball Other [facility] [employer] Other 06-05-2023 10:00-0500 Diastolic blood pressure 71 mm[Hg] Juancarlos Ball Other [facility] Other 06-05-2023 10:00-0500 Respiratory rate 20 /min Juancarlos Ball Other [facility] Other 06-05-2023 10:00-0500 Systolic blood pressure 118 mm[Hg] Juancarlos Ball Other [facility] [employer] Other 05-06-2023 13:45-0400 Body height 165.1 cm Juancarlos Ball Other [facility] Other 05-06-2023 13:45-0400 Body mass index (BMI) [Ratio] 39.97 kg/m2 Juancarlos Ball Other [facility] [employer] Other 05-06-2023 13:45-0400 Body weight 108.95 kg Juancarlos Ball Other [facility] [employer] Other 05-06-2023 13:45-0400 Diastolic blood pressure 87 mm[Hg] Juancarlos Ball Other [facility] Other 05-06-2023 13:45-0400 Respiratory rate 16 /min Juancarlos Ball Other [facility] [employer] Other 05-06-2023 13:45-0400 Systolic blood pressure 158 mm[Hg] Juancarlos Ball Other [facility] Other 03-10-2023 11:00-0400 Body height 165.1 cm Juancarlos Ball Other [facility] Other 03-10-2023 11:00-0400 Body mass index (BMI) [Ratio] 39.3 kg/m2 Juancarlos Ball Other [facility] [employer] Other 03-10-2023 11:00-0400 Body weight 107.14 kg Juancarlos Ball Other [facility] [employer] Other 03-10-2023 11:00-0400 Diastolic blood pressure 67 mm[Hg] Juancarlos Ball Other [facility] Other 03-10-2023 11:00-0400 Respiratory rate 16 /min Juancarlos Ball Other [facility] Other 03-10-2023 11:00-0400 Systolic blood pressure 120 mm[Hg] Juancarlos Ball Other [facility] Other 10-16-2022 13:12-0400 Body temperature 97.11 [degF] Jay Gonzalez MD Work Phone: [facility] 10-16-2022 13:12-0400 Diastolic blood pressure 66 mm[Hg] Jay Gonzalez MD Work Phone: [facility] 10-16-2022 13:12-0400 Heart rate 51 /min Jay Gonzalez MD Work Phone: [facility] 10-16-2022 13:12-0400 SaO2% (BldA) [Mass fraction] 96 % Jay Gonzalez MD Work Phone: [facility] 10-16-2022 13:12-0400 Systolic blood pressure 143 mm[Hg] Jay Gonzalez MD Work Phone: [facility] 09-08-2022 13:30-0500 Body height 165.1 cm Juancarlos Ball Other [facility] Other 09-08-2022 13:30-0500 Body mass index (BMI) [Ratio] 39.33 kg/m2 Juancarlos Ball Other [facility] Other 09-08-2022 13:30-0500 Body weight 107.23 kg Juancarlos Ball Other [facility] Other 09-08-2022 13:30-0500 Diastolic blood pressure 70 mm[Hg] Juancarlos Ball Other [facility] Other 09-08-2022 13:30-0500 Respiratory rate 20 /min Juancarlos Ball Other [employer] Other 09-08-2022 13:30-0500 Systolic blood pressure 112 mm[Hg] Juancarlos Ball Other [employer] Other 01-27-2022 13:20-0400 Body height 165.1 cm Jus Bray MD Work Phone: [facility] 01-27-2022 13:20-0400 Body temperature 96.91 [degF] Jus Bray MD Work Phone: [facility] 01-27-2022 13:20-0400 Body weight 104.33 kg Jus Bray MD Work Phone: [facility] 01-27-2022 13:20-0400 Diastolic blood pressure 56 mm[Hg] Jus Bray MD Work Phone: [facility] 01-27-2022 13:20-0400 Heart rate 50 /min Jus Bray MD Work Phone: [facility] 01-27-2022 13:20-0400 SaO2% (BldA) [Mass fraction] 98 % Jus Bray MD Work Phone: [facility] 01-27-2022 13:20-0400 Systolic blood pressure 131 mm[Hg] Jus Bray MD Work Phone: [facility] 10-10-2021 10:46-0400 Body height 165.1 cm Jay Gonzalez MD Work Phone: [facility] 10-10-2021 10:46-0400 Body weight 102.51 kg Jay Gonzalez MD Work Phone: [facility] 10-10-2021 10:46-0400 Diastolic blood pressure 65 mm[Hg] Jay Gonzalez MD Work Phone: [facility] 10-10-2021 10:46-0400 Heart rate 76 /min Jay Gonzalez MD Work Phone: [facility] 10-10-2021 10:46-0400 Systolic blood pressure 137 mm[Hg] Jay Gonzalez MD Work Phone: [facility] 10-10-2021 10:44-0400 Body height 165.1 cm Jus Bray MD Work Phone: [facility] 10-10-2021 10:44-0400 Body weight 102.51 kg Jus Bray MD Work Phone: [facility] 10-10-2021 10:44-0400 Diastolic blood pressure 65 mm[Hg] Jus Bray MD Work Phone: [facility] 10-10-2021 10:44-0400 Heart rate 76 /min Jus Bray MD Work Phone: [facility] 10-10-2021 10:44-0400 SaO2% (BldA) [Mass fraction] 98 % Jus Bray MD Work Phone: [facility] 10-10-2021 10:44-0400 Systolic blood pressure 137 mm[Hg] Jus Bray MD Work Phone: [facility] Encounters Encounter Date Encounter Type Care Provider Facility Start: 07-27-2023 End: 07-28-2023 ambulatory Hanh Wade MD Facility: [facility] Start: 06-17-2023 End: 06-17-2023 ambulatory Juancarlos Ball Other [employer] Other Start: 06-17-2023 Telephone encounter Juancarlos Ball [facility] Start: 06-16-2023 End: 06-16-2023 ambulatory Juancarlos Ball Other [employer] Other Start: 06-16-2023 Telephone encounter Juancarlos Ball [facility] Start: 06-09-2023 End: 06-09-2023 ambulatory Juancarlos Ball Other [employer] Other Start: 06-09-2023 Telephone encounter Juancarlos Ball [facility] Start: 06-08-2023 End: 06-08-2023 ambulatory Juancarlos Ball Other [employer] Other Start: 06-08-2023 Telephone encounter Juancarlos Ball [facility] Start: 06-07-2023 End: 06-07-2023 ambulatory Juancarlos Ball Other [employer] Other Start: 06-07-2023 Telephone encounter Juancarlos Ball [facility] Start: 06-05-2023 End: 06-05-2023 ambulatory Juancarlos Ball Other [employer] Other Start: 06-05-2023 Office outpatient vi sit 25 minutes Juancarlos Ball [facility] Start: 05-27-2023 End: 05-27-2023 ambulatory Juancarlos Ball Other [employer] Other Start: 05-27-2023 Telephone encounter Juancarlos Ball [facility] Start: 05-17-2023 End: 05-17-2023 ambulatory Juancarlos Ball Other [employer] Other Start: 05-17-2023 Telephone encounter Juancarlos Ball [facility] Start: 05-15-2023 End: 05-15-2023 ambulatory Juancarlos Ball Other [employer] Other Start: 05-15-2023 Telephone encounter Juancarlos Ball [facility] Start: 05-07-2023 End: 05-07-2023 ambulatory Juancarlos Ball Other [employer] Other Start: 05-07-2023 Telephone encounter Juancarlos Ball [facility] Start: 05-06-2023 End: 05-06-2023 ambulatory Juancarlos Ball Other [employer] Other Start: 05-06-2023 Office outpatient vi sit 25 minutes Juancarlos Ball [facility] Start: 05-06-2023 Telephone encounter Juancarlos Ball [facility] Start: 04-22-2023 End: 04-22-2023 ambulatory AB [facility] Start: 04-04-2023 End: 04-04-2023 ambulatory Juancarlos Ball Other [employer] Other Start: 04-04-2023 Telephone encounter Juancarlos Ball [facility] Start: 03-10-2023 End: 03-10-2023 ambulatory Juancarlos Ball Other [employer] Other Start: 03-10-2023 Office outpatient vi sit 25 minutes Juancarlos Ball [facility] Start: 12-24-2022 End: 12-24-2022 ambulatory Juancarlos Ball Other [employer] Other Start: 12-24-2022 Telephone encounter Juancarlos Ball [facility] Start: 12-17-2022 End: 12-18-[address] NYA BIRD . Facility:[facility] Start: 12-16-2022 End: 12-16-2022 ambulatory RAINA WEBB . Facility:[facility] Start: 12-02-2022 End: 12-03-2022 ambulatory Nya BIRD Facility: [facility] Start: 11-28-2022 End: 11-29-2022 ambulatory MANAV GARY . Facility:[facility] Start: 11-28-2022 End: 11-29-2022 ambulatory NARENDRANATH LAKSHMIPATHY . Facility:[facility] Start: 11-11-2022 End: 11-11-2022 ambulatory NARENDRANATH LAKSHMIPATHY . Facility:[facility] Start: 10-28-2022 End: 10-29-[address] EVAN LAMAS . 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] Start: 10-06-2022 Telephone encounter Jay patel MD Work Phone: General Surgery Comment on above: Patient Question Start: 09-16-2022 Telephone encounter Juancarlos BELL [facility] Start: 09-16-2022 End: 09-17-2022 ambulatory Nya BIRD [employer] Other Start: 09-16-2022 End: 09-27-2022 Pre-admission assessment Nya BIRD [facility] Start: 09-12-2022 Telephone encounter Juancarlos Bolton [facility] Start: 09-12-2022 End: 09-13-[address] JUANCARLOS CUENCA [facility] Other Start: 09-08-2022 End: 09-08-2022 ambulatory Juancarlos Cuenca Other [employer] Other Start: 09-08-2022 Patient encounter procedure Juancarlos BURKS [facility] Start: 07-31-2022 End: 08-01-[address] EVAN LAMAS . Facility:[facility] Start: 07-03-2022 Encounter for preprocedural laboratory examination DR EVAN LAMAS . [facility] Start: 07-01-2022 End: 07-01-[address] EVAN LAMAS . Facility:[facility] Start: 06-27-2022 End: 06-28-[address] EVAN LAMAS . Facility:[facility] Start: 06-27-2022 End: 06-28-2022 Encounter for preprocedural laboratory examination DR EVAN LAMAS . Facility:[facility] Start: 05-29-2022 End: 05-30-[address] EVAN LAMAS . Facility:[facility] Start: 05-19-2022 End: 05-19-2022 ambulatory [facility] Start: 05-13-2022 End: 05-13-[address] EVAN LAMAS . Facility:[facility] Start: 04-24-2022 End: 04-25-[address] EVAN LAMAS . Facility:[facility] Start: 04-08-2022 End: 04-08-[address] EVAN LAMAS . Facility:[facility] Start: 03-25-2022 End: 03-26-[address] EVAN LAMAS . Facility:[facility] Start: 03-18-2022 End: 03-18-[address] JUANCARLOS CUENCA Facility:[facility] Start: 03-12-2022 End: 04-16-[address] JUANCARLOS CUENCA Facility:[facility] Start: 03-04-2022 End: 03-05-[address] JUANCARLOS CUENCA Facility:[facility] Start: 02-22-2022 End: 02-23-[address] JUANCARLOS CUENCA Facility:[facility] Start: 01-27-2022 End: 01-27-2022 ambulatory JUS BRAY Facility:[facility] Start: 01-27-2022 End: 01-27-2022 Patient encounter procedure Jus Bray MD Work Phone: Colorectal Surgery Comment on above: Polyposis of colon ( Primary Dx); Incisional hernia, without obstruction or gangrene Start: 10-11-2021 Telephone encounter Shilpa Storm MD Work Phone: [facility] Comment on above: Research Start: 10-10-2021 End: 10-10-2021 Patient encounter procedure Jay Gonzalez MD Work Phone: General Surgery Comment on above: Ventral incisional h ernia (Primary Dx) Polyposis of colon ( Primary Dx) Start: 12-26-2020 End: 12-29-2020 ambulatory JUANCARLOS CUENCA Facility:[facility] Start: 10-19-2020 End: 10-20-2020 ambulatory JUANCARLOS CUENCA Facility:[facility] Procedures Date Procedure Procedure Detail Performing Clinician Start: 10-04-2021 Partial resection of colon Nya BIRD Start: 10-04-2021 Repair of ventral hernia Nya BIRD Start: 04-08-2021 Colonoscopy Nya NI LL Comment on above: Transverse and desce nding colon polyps Start: 12-26-2020 ANESTH KNEE ARTHROPLASTY JUANCARLOS CUENCA Start: 12-26-2020 Arthrp kne condyle&p latu medial&lat compartments VITHAL SHENDGE Start: 12-26-2020 JOINT DEVICE (IMPLANTABLE) JUANCARLOS CUENCA Start: 11-17-2017 Colonoscopy Nya NI CHRISTINE Comment on above: 2004 (2), 2005, 2007 , 2009, 2011, 05/2015, 11/2017 Start: 03-06-2016 Transurethral prostatectomy Nya BIRD Start: 02-18-2016 Cystoscopy Nya NI CHRISTINE Start: 01-16-2016 Urodynamic studies [place] BIRD Start: 07-20-2012 Hernia repair Nya ROSARIO Start: 08-26-2007 Prosthetic arthropla sty of the hip Nya BIRD Start: 08-20-2007 Hernia of anterior abdominal wall (disorder) Nya BIRD Start: 04-19-2004 Transrectal biopsy o f prostate using ultrasound guidance Nya BIRD Atherectomy Nya BIRD Comment on above: with stent 2006 Bilateral vasectomy Nya BIRD Decompression of med med nerve Nya PELON Through knee amputation [place] allan PELON Plan of Treatment Date Care Activity Detail Author Start: 10-10-2022 End: 11-09-2022 Ct abdomen & pelvis w/o contrast material CT ABD/PEL WO IVCON Radiology Routine Ventral incisional hernia Expected: 10/10/2022, Expires: 11/09/2022 [facility] Work Phone: Comment on above: Expected: 10/10/2022 , Expires: 11/09/2022 Start: 07-20-2022 ADVANCE DIRECTIVE DISCUSSION ADVANCE DIRECTIVE DISCUSSION [facility] Start: 07-20-2022 DEPRESSION ASSESSMENT DEPRESSION ASS ESSMENT [facility] Start: 03-20-2022 Influenza vaccination INFLUENZA (#1) [facility] Start: 03-13-2022 Hemoglobin A1c/Hemoglobin.total in Blood HBA1C [facility] Start: 01-04-2022 COVID-19 VACCINE (5 - Booster for Pfizer series) COVID-19 VACCINE (5 - Booster for Pfizer series) [facility] Start: 07-20-2021 ADVANCE DIRECTIVE DISCUSSION ADVANCE DIRECTIVE DISCUSSION [facility] Start: 2009 PNEUMOVAX AGE 65 AND OVER WITH 5YR LOOKBACK (#1) PNEUMOVAX AGE 65 AND OVER WITH 5YR LOOKBACK (#1) [facility] Start: 1994 SHINGRIX VACCINE (1 of 2) SHINGRIX VACCINE (1 of 2) [facility] Start: 12-31-1963 Urine microalbumin profile DTAP,TDAP,TD (1 - Tdap) [facility] Start: 1962 ANNUAL PCP TEAM COURTESY CLERK MACY DISEASE VISIT ANNUAL PCP TEAM CHRONIC DISEASE VISIT [facility] Start: 1962 BP CONTROLLED (<130/80) BP CON TROLLED (<130/80) [facility] Start: 1962 Hepatitis B surface antibody level LDL CHOLESTEROL [facility] Start: 1962 HEPATITIS C SCREENING HEPATITIS C ANTOINE TEJEDA [facility] Start: 1956 Adult depression screening assessment DEPRESSION SCREENING [facility] Start: 1954 3 comp foot exam completed DIABETIC FOOT EXAM [facility] Start: 1954 Hepatitis B screening URINE ALBUMIN:CREATININE RATIO [facility] Start: 1954 Hepatitis C antibody , confirmatory test DILATED RETINAL EXAM [facility] Start: 1950 PNEUMOCOCCAL: 65+ (1 - PCV) PNEUMOCOCCAL: 65+ (1 - PCV) [facility] End: 10-11-2022 Ct abdomen & pelvis w/o contrast material [facility] Work Phone: Comment on above: 1 Occurrences starti ng 10/11/2022 until 10/11/2022 End: 11-15-2023 Ct abdomen & pelvis w/o contrast material CT ABD/PEL WO IVCON Radiology Routine Ventral incisional hernia 1 Occurrences starting 10/16/2022 until 11/15/2023 [facility] Work Phone: Comment on above: 1 Occurrences starti ng 10/16/2022 until 11/15/2023 [facility] Immunizations Immunization Date Immunization Notes Care Provider [facility] 05-20-2022 influenza virus vaccine, unspecified formulation Nya BIRD [facility] 05-16-2022 influenza, high dose seasonal, preservative-free Juancarlos Cuenca Other [employer] [facility] [employer] Other 05-16-2022 influenza virus vaccine, split virus (incl. purified surface antigen) Juancarlos Cuenca Other [employer] [facility] [employer] Other 04-15-2022 SARS-CoV-2 (COVID-19 ) [id number] Nya BIRD [facility] 11-09-2021 COVID-19 Vaccine Pfi zer - Documentation Purposes Only Juancarlos Cuenca Other [employer] [facility] Other 11-09-2021 SARS-CoV-2 mRNA (qmusdveajwe-ajzm-uszhd se) vaccine Nya BIRD [facility] 04-19-2021 SARS-CoV-2 (COVID-19 ) mRNA BNT-162b2 [employer] [facility] Comment on above: Result Comment: 2022: [id number] 09-05-2020 SARS-CoV-2 (COVID-19 ) mRNA BNT-162b2 [employer] [facility] Comment on above: Result Comment: 2022: [id number] 08-15-2020 COVID-19 Vaccine Moderna - Documentation Purposes Only Juancarlos Cuenca Other [employer] Other 08-15-2020 SARS-CoV-2 (COVID-19 ) mRNA BNT-162b2 [employer] [facility] Comment on above: Result Comment: 2022: [id number] 03-28-2020 influenza virus vaccine, split virus (incl. purified surface antigen) Juancarlos Cuenca Other [employer] Other 05-17-2019 influenza virus vaccine, split virus (incl. purified surface antigen) Juancarlos Cuenca Other [employer] Other 05-13-2018 influenza virus vaccine, split virus (incl. purified surface antigen) Juancarlos Cuenca Other [employer] Other 04-25-2015 influenza virus vaccine, split virus (incl. purified surface antigen) Juancarlos Cuenca Other [employer] Other 04-25-2015 pneumococcal conjuga te vaccine, 13 valent Juancarlos Cuenca Other [employer] Other 04-19-2014 pneumococcal polysaccharide vaccine, 23 valent Juancarlos Cuenca Other [employer] Other 04-20-2013 tetanus and diphther ia toxoids, adsorbed, preservative free, for adult use (5 Lf of tetanus toxoid and 2 Lf of diphtheria toxoid) Juancarlos Cuenca Other [employer] Other 04-21-2012 pneumococcal polysaccharide vaccine, 23 valent Juancarlos Bang Other [employer] Other Payers Date Payer Category Payer Unknown 2020 Private Health Insurance [facility] AARP SUPPLEMENT [id number] 2020-Present [phone] [address] [place] [address] Indemnity [id number] 2020 Private Health Insurance [facility] AARP SUPPLEMENT [id number] 2020-Present [phone] [address] [place] [address] Indemnity [id number] 2009 Medicare MEDICARE MEDICAR E A AND B [id number] 2009-Present [phone] [address] [address] [place] [address] Medicare [id number] 2009 Medicare [id number] 1959 Medicare [id number] 1959 Unknown [id number] 1944 Unknown [id number] 2.16.840.1.754012.3.579.2 .647 1944 Unknown [id number] 2.16.840.1.270829.3.579.2 .647 1944 Unknown [id number] 2.16.840.1.210317.3.579.2 .593 1944 Unknown [id number] 2.16.840.1.654949.3.579.2 .593 1944 Unknown [id number] 2.16.840.1.501985.3.579.2 .593 1944 Unknown [id number] 2.16.840.1.333190.3.579.2 .593 1944 Unknown [id number] 2.16.840.1.062100.3.579.2 .593 1944 Unknown [id number] 2.16.840.1.619477.3.579.2 .593 1944 Unknown [id number] 2.16.840.1.446055.3.579.2 .593 1944 Unknown [id number] 2.16.840.1.538315.3.579.2 .593 1944 Unknown [id number] 2.16.840.1.185424.3.579.2 .593 1944 Unknown [id number] 2.16.840.1.701804.3.579.2 .593 1944 Unknown [id number] 2.16.840.1.464106.3.579.2 .593 1944 Unknown [id number] 2.16.840.1.617322.3.579.2 .593 1944 Unknown [id number] 2.16.840.1.853626.3.579.2 .593 1944 Unknown [id number] 2.16.840.1.134999.3.579.2 .593 1944 Unknown [id number] 2.16.840.1.559244.3.579.2 .593 1944 Unknown [id number] 2.16.840.1.109779.3.579.2 .593 1944 Unknown [id number] 2.16.840.1.975798.3.579.2 .593 1944 Unknown [id number] 2.16.840.1.021898.3.579.2 .593 1944 Unknown [id number] 2.16.840.1.516283.3.579.2 .593 1944 Unknown [id number] 2.16.840.1.636896.3.579.2 .727 1944 Unknown [id number] 2.16.840.1.910615.3.579.2 .727 1944 Unknown [id number] 2.16.840.1.317888.3.579.2 .727 1944 Unknown [id number] 2.16.840.1.005928.3.579.2 .196 Unknown [id number] Unknown [id number] 2.16.840.1.567097.19 Social History Date Type Detail Facility Start: 05-21-2021 End: 10-16-2022 Tobacco smoking status NHIS Ex-smoker [facility] End: 07-20-1994 History of tobacco use Current smoker [facility] End: 07-20-1994 History of tobacco use Cigar Smoker [facility] Start: 05-21-2021 End: 10-16-2022 Tobacco use and exposure Smokeless tobacco non-user [facility] Start: 10-10-2021 End: 10-16-2022 Alcohol intake Ex-drinker (finding) [facility] Start: 05-21-2021 End: 10-16-2022 Tobacco Comment Quit 15+ years [facility] Start: 1945 Sex Assigned At Not on file C [facility] Start: 08-25-2021 End: 09-24-2021 Exposure to SARS-CoV-2 (event) Not sure [facility] Start: 09-16-2022 Tobacco smoking status Never s moked tobacco (finding) [facility] [place] Tobacco smoking status Former sm okeless tobacco user, quit more than 30 days ago [facility] [place] Sex Assigned At Male [facility] Medical Equipment Procedure Code Equipment Code Equipment Origin al Text Equipment Identifier Dates Mesh [employer] Mac[employer]orous [id number] Surgical Monofilament - [id number] Start: 09-24-2021 Clinical Notes 12-29-2020 to 06-16-2023 Note Date & Type Note Facility 06-16-2023 Evaluation note Encounter Date Diagnosis Assessment Notes May, Type 2 diabetes mellitus with hyperglycemia , without long-term current use of insulin (ICD-10 - E11.65) [employer] Other 11-28-2023 Evaluation note* Encounter Date Diagnosis Assessment Notes Treatment Notes Treatment Clinical Notes May, Primary hypertension (ICD-10 - I10) [employer] Other 11-21-2023 Evaluation note* Encounter Date Diagnosis Assessment Notes Treatment Notes Treatment Clinical Notes May, Type 2 diabetes mellitus with hyperglycemia, without long-term current use of insulin (ICD-10 - E11.65) [employer] Other 11-17-2023 Evaluation note* Encounter Date Diagnosis [...] use, the patient reduces the risk for MO, CVA, HTN, cardiac dysrhythmias and sudden cardiac [...] index [BMI] 39.0-39.9, adult (ICD-10 - Z68.39) [employer] Other 11-08-2023 Evaluation note* Encounter Date Diagnosis Assessment Notes Treatment Notes Treatment Clinical Notes May, Primary hypertension (ICD-10 - I10) [employer] Other 10-29-2023 Evaluation note* Encounter Date Diagnosis Assessment Notes Treatment Notes Treatment Clinical Notes Apr, Type 2 diabetes mellitus with hyperglycemia, without long-term current use of insulin (ICD-10 - E11.65) Apr, Primary hypertension (ICD-10 - I10) [employer] Other 10-19-2023 Evaluation note* Encounter Date Diagnosis Assessment Notes Treatment Notes Treatment Clinical Notes Apr, Type 2 diabetes mellitus with hyperglycemia, without long-term current use of insulin (ICD-10 - E11.65) [employer] Other 10-18-2023 Evaluation note* Encounter Date Diagnosis Assessment Notes Treatment Notes Treatment Clinical Notes Apr, ASHD (arteriosclerotic heart disease) (ICD-10 - I25.10) This patient is stable without activity related CP, dyspnea or lightheadedness. They are instructed to continue exercise and AHA diet plan. Continue secondary prevention measures. Obstetrics Teacher suggesting SGLT-2 for dual benefit w/ ASHD [...] contributed. Monitor for now Apr, Atherosclerosis of [place] artery of right lower extremity with rest pain (ICD-10 - I70.221) Walk daily until painful. Inspect feet daily for cuts. Continue secondary prevention measures. Scheduled post op JAMIR [employer] Other 10-18-2023 Evaluation note* Encounter Date Diagnosis Assessment Notes Treatment Notes Treatment Clinical Notes Apr, Type 2 diabetes mellitus with hyperglycemia, without long-term current use of insulin (ICD-10 - E11.65) [employer] [facility] Chief Complaint: Patient here for 1 year follow up CAD, PVD, and hypertension. He underwent LE angiogram last month with Dr. Mccurdy of [facility]. He sees him for [...] history of Coronary artery disease, Diabetes mellitus ([facility]), Hypertension, PVD (peripheral vascular disease) ([facility]), and Sleep apnea. Surgical History He has [...] common femoral artery. Surgeon: Jyoti Mccurdy Primary Wreath Maker: None. Anesthesia: Local with 1% lidocaine and sedation. EBL: 10 cc Complications: None. 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 Procedure: Patient was brought to the angiogram suite. He was placed on the table in supine position. Left groin area was prepped and draped in the usual sterile fashion. Patient was given (more content not included)...[facility]08-22-2023 Evaluation note* Encounter Date Diagnosis Assessment Notes [...] use, the patient reduces the risk for MO, CVA, HTN, cardiac dysrhythmias and sudden cardiac [...] [BMI ] 39.0-39.9, adult (ICD-10 - Z68.39) [employer] Other 05-31-2023 NoteOPERATIVE NOTE OPERATION DATE: 11/29/2022 PREOPERATIVE DIAGNOSIS: Personal history of colon polyps, status post subtotal colectomy with ileosigmoid anastomosis. POSTOPERATIVE DIAGNOSIS: Personal history of colon polyps, status post subtotal colectomy with ileosigmoid anastomosis. PROCEDURE: Colonoscopy to ileosigmoid anastomosis. SURGEON: Nya Bird M.D. ANESTHESIA: Monitored anesthesia care. ESTIMATED BLOOD [...] should be in three years. CC: Juancarlos Cuenca D.O.[facility]05-12-2023 NotePROCEDURE: XR HIP LT 2 3V WO PELVIS HISTORY: Pain of left hip joint COMPARISON: None. FINDINGS: BONES:No fracture, acute abnormality, or significant arthropathy. SOFT TISSUES:No visible soft tissue swelling. EFFUSION:None visible. OTHER: Negative. IMPRESSION: 1. No acute bone abnormality. 2. Mild degenerative joint disease. Electronically authenticated by: GABY PADILLA Date: 2022-11-28 13:08[facility]04-11-2023 NoteCONSULTATION CONSULTATION DATE: 10/28/2022 TO: Juancarlos Cuenca D.O. CHIEF COMPLAINT: Patient presented with the [...] our patients to inform us about any aabp-gry-tmeacys medications or herbal remedies/nutritional supplements/alternative remedies. 2. [...] treatment options with their primary care provider.[id number] NoteHNO ID: [id number] Author: Jay Gonzalez MD Service: ? Author Type: Physician Type: Progress Notes Filed: 10/16/2022 3:05 PM Note Text: [facility] Abdominal Core Health - Follow Up [...] No bulging along midline with/without valsalva. Jay Gonzalez MD 10/16/22, 2:45 PM General Surgery [facility]03-30-2023 NoteHNO ID: [id number] Author: Destiny Zapata MA Service: ? Author Type: Patient Support Specialist Type: Progress Notes Filed: 10/16/2022 3:05 PM Note Text: What is the reason for your visit today? Follow up 1 year Who is your referring physician? Are you having poor oral intake? NO Have you had unintentional weight loss of 15 lbs/7 Kg in the last 3-6 months? NO Bowels: regular Wound: Temperature: No Drains: [facility] [facility] History of Present illness Narrative* Jay Gonzalez MD - 10/16/2022 2:38 PM EDT [facility] Abdominal [facility] - Follow Up Visit Assessment/Plan: Lizzy [...] well-healed. No bulging along midlinewith/without valsalva. Jay Gonzalez MD 10/16/22, 2:45 PM General Surgery [facility] * Destiny Zapata MA - 10/16/2022 1:09 PM EDT What is the reason for your visit today? Follow up 1 year Who is your referring physician? Are you having poor oral intake? NO Have you had unintentional weight loss of 15 lbs/7 Kg in the last 3-6 months? NO Bowels: regular Wound: Temperature: No Drains: No documented in this encounterMercy [facility] Hospital03-25-2023 Miscellaneous Notes* Allied Health - RT Marisa(R) [...] 11, 2022 10:29 AM documented in this encounterMercy Memorial Hospital03-21-2023 Miscellaneous Notes* Telephone Encounter - Efrain Zamarripa RN - 10/07/2022 10:42 AM EDT Returned [...] or so at a non facility. PH: [phone] documented in this encounterMercy Memorial Hospital02-24-2023 Evaluation note* Encounter Date Diagnosis Assessment Notes Treatment Notes Treatment Clinical Notes Aug, Left carotid artery stenosis (ICD-10 - I65.22) US: right <50%, left 50-69% - 10/2020 US: right <50%, left 80-90% - 08/2022 [employer] Other 02-20-2023 Evaluation note* Encounter Date Diagnosis [...] use, the patient reduces the risk for MO, CVA, HTN, cardiac dysrhythmias and sudden cardiac [...] reviewed and amended by provider signed below. [employer] [facility] 01-12-2023 NoteCONSULTATION PROCEDURE DATE: 09/18/2022 PREOPERATIVE [...] will be followed up in the office.[facility] [id number] NoteCONSULTATION CONSULTATION DATE: 07/31/2022 HISTORY OF PRESENT [...] and the patient agrees with this plan.[facility] 05-29-2022 NoteCONSULTATION CONSULTATION DATE: 05/29/2022 HISTORY [...] be followed up in the clinic thereafter.[facility] [id number] NotePatient here for 1 year follow up CAD, hypertension, and PVD. Had labs in September 2021 while at [facility] for colon surgery/hernia repair. He became hypotensive s/p surgery so his BP meds were adjusted. Denies chest pain and palpitations. Says his SOB with exertion remains unchanged. Review of Systems Cardiovascular: Positive for dyspnea on exertion. Musculoskeletal: Positive for arthritis, back pain, joint pain, muscle weakness and myalgias. Neurological: Positive for light-headedness and numbness.[facility]10-31-2022 NoteSUBJECTIVE Chief Complaint Patient presents with Coronary Artery Disease Hypertension Peripheral Vascular Disease Lizzy Yee is a 76 y.o. male here for follow-up. HPI Patient here for 1 year follow up CAD, hypertension, and PVD. Had labs in September 2021 while at [facility] for colon surgery/hernia repair. He became [...] position changes. HOSPITAL COURSE (from 09/2021 at [facility]): Mr Yee is a 75 year old male who was admitted for the above mentioned scheduled surgery with Dr. Bray and Dr. Gonzalez. Post-op in the ICU initially for close [...] Coronary artery disease PVD (peripheral vascular disease) ([facility]) Hx of CABG Past Medical History: Diagnosis Date Coronary artery disease Diabetes mellitus ([facility]) Hypertension PVD (peripheral vascular disease) ([facility]) Sleep apnea Family History Problem Relation Name [...] 0.4 mg by mo (more content not included)...[facility]10-06-2022 NoteCONSULTATION CONSULTATION DATE: 04/24/2022 This is a [...] approval to hold his Plavix from his liaison officer. A refill for Baclofen 10 mg q.h.s. [...] knee osteoarthritis. The patient is in agreement.[facility] [id number] Note CONSULTATION CONSULTATION DATE: 03/25/2022 CHIEF COMPLAINT: 1. Low back pain. 2. Left knee pain. HISTORY OF PRESENT ILLNESS: This is a very pleasant, 76-year-old male, who is known to the pain practice remote. The patient had a right total knee replacement at [facility]. The patient is doing well with regards [...] patient understands and would like to proceed.[facility] 01-27-2022 NoteHNO ID: [id number] Author: Jus Bray MD Service: ? Author Type: Physician Type: Progress Notes Filed: 02/05/2022 3:02 PM Note Text: SHIRA Yee is a 76 year old male with history of HTN, HLD, CAD, BPM, Anxiety, Obesity (BMI?38), BHUPENDRA, and colonic polyposis syndrome?s/p subtotal colectomy with concomitant abdominal wall reconstruction with Dr. Gonzalez 10/04. Patient is presenting for follow up. [...] with concomitant abdominal wall reconstruction with Dr. Gonzalez 10/04. Patient is presenting for follow up. [...] Follow up anytime as needed. Jus Bray, [facility]07-11-2022 Nurse Note* Sarah Osman MA - 01/27/2022 [...] Temperature: No Drains: No documented in this encounterMercy Memorial Hospital07-11-2022 History of Present illness Narrative* Jus Bray MD - 01/27/2022 1:00 PM EDT HPI Lizzy Yee is a 76 year old male with history of HTN, HLD, CAD, BPM, Anxiety, Obesity (BMI 38), BHUPENDRA, and colonic polyposis syndrome s/p subtotal colectomy with concomitant abdominal wall reconstruction with Dr. Gonzalez 10/04. Patient is presenting for follow up. [...] with concomitant abdominal wall reconstruction with Dr. Gonzalez 10/04. Patient is presenting for follow up. [...] needed. Jus Bray MD documented in this encounterMercy Memorial Hospital03-25-2022 Miscellaneous Notes* Telephone Encounter - Shan Savagechristinemarin - 10/11/2021 3:09 PM EDTSummary: IRB#: [id number] Research Outreach IRB# [id number], Qualitative Interviews in Postoperative Gastrointestinal Dysfunction (POGD). PI: Shilpa Storm MD, SANJIV, FASA. Outcomes Research Department. Anest[facility] [place]. This is a research study note. Patient [...] there for his review. Shan Parham Research [employer] Anesthesiology [place] Outcomes Research Department documented in this encounterMercy Memorial Hospital03-24-2022 History of Present illness Narrative* Jay Gonzalez MD - 10/10/2021 1:37 PM EDT [facility] - Follow Up [...] the care that he received while at [facility]. Objective: AAOx3, NAD Non-labored respirations on room [...] abdomen without any erythema or induration. Jay Gonzalez MD 10/10/21, 1:37 PM General Surgery [facility] documented in this encounterMercy Memorial Hospital03-24-2022 History of Present illness Narrative* Jus Bray MD - 10/10/2021 11:00 AM EDT HPI Lizzy Yee is a 75 year old male here today for postop Open subtotal colectomy with stapled [id number] ileosigmoid anastomosis ventral herniorrhaphy with transversus abdominus release and placement of mesh- w/Dr Gonzalez on 09/24/2021 PMH: Polyposis of the colon [...] ileosigmoid anastomosis, abdominal wall reconstruction with Dr. Gonzalez Overall doing very well. Plan RECOMMENDATION - can resume normal diet - increase fiber intake. Can take an imodium before bed if bowel function overnight does not improve. - will require annual flexible sigmoidoscopies for close polyp surveillance in his remaining rectumand sigmoid. - follow up in 3-4 months Jus Bray MD documented in this encounterMercy Memorial Hospital03-24-2022 Nurse Note* Elena Ferrell MA - 10/10/2021 10:45 AM EDT What is the reason for your visit today? Follow up Who is your referring physician? Self Are you having poor oral intake? NO Have you had unintentional weight loss of 15 lbs/7 Kg in the last 3-6 months? NO Bowels: regular Wound: none Temperature: No Drains: No documented in this encounterMercy Memorial Hospital03-08-2022 History of Past illness Narrative* Problem Noted Date Resolved Date 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 documented as of this encounter (statuses as of 10/10/2021) [address]08-2022 History of Past illness Narrative* Problem Noted Date Resolved Date 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 documented as of this encounter (statuses as of 10/10/2021) [address]08-2022 History of Past illness Narrative* Problem Noted Date Resolved Date 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 documented as of this encounter (statuses as of 10/11/2021) [address]08-2022 History of Past illness Narrative* Problem Noted Date Resolved Date 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 documented as of this encounter (statuses as of 02/05/2022) [address]08-2022 History of Past illness Narrative* Problem Noted Date Resolved Date 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 documented as of this encounter (statuses as of 10/07/2022) [address]08-2022 History of Past illness Narrative* Problem Noted Date Resolved Date 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 documented as of this encounter (statuses as of 10/12/2022) [facility] of Past illness Narrative* Problem Noted Date Resolved Date 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 documented as of this encounter (statuses as of 10/12/2022) [facility] History of Past illness Narrative* Problem Noted Date Resolved Date 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 documented as of this encounter (statuses as of 10/16/2022) [facility]06-12-[facility] NoteMR#: [id number] [facility] Pt. Name: Lizzy Yee Admitted: 12/26/2020 Discharged: 12/29/2020 Date of : 1945 Physician: Ty Avalos M.D. DISCHARGE SUMMARY [facility] Pt. Name: Kurt Yee Admitted: 12/26/20 Discharged: [...] CONDITION AT DISCHARGE: Stable DISPOSITION: Home with [facility] DISCHARGE INSTRUCTIONS: Take medications as prescribed, follow up with Dr. Avalos in 10-14 days DISCHARGE MEDICATIONS: Narcotic pain medications, stool softeners, and DVT prophylaxis with ASA 325 BID Electronically Signed by: Ty Avalos M.D. 12/31/2020 11:09 A Ty Avalos M.D. I personally saw this patient on the day of the encounter, performed the kaur portion(s) of the service and participated in the management and confirm the resident's documentation. Please note there may be an additional personal documentation from me. Date Dict: 12/29/2020/08:18 P/Dano Cano MD Date Trans: 12/29/2020 08:18 P/ [id number] cc: Juancarlos Cuenca D.O. [address] [place] [id number] City HospitalEvaluation + Plan note No data available for this section [facility] Diagnosis Ventral incisional hernia- Primary documented in this encounter [facility] note* Diagnosis Polyposis of colon- Primary Benign neoplasm of colon documented in this encounter [facility] note* Diagnosis Polyposis of colon- Primary Benign neoplasm of colon Incisional hernia, without obstruction or gangrene Incisional hernia without mention of obstruction or gangrene documented in this encounter [facility] noteNo InformationNomercy m[facility] [employer] Other Evaluation note* Diagnosis Ventral incisional hernia documented in this encounter [facility] note* Diagnosis Ventral incisional hernia- Primary documented in this encounter [facility] general Narrative - Reported* Type Description Date [...] HEMICOLECTOMY 2003 Hospitalization History SEE SURGICAL HX [employer] Other [employer] general Narrative - Reported* Type Description Date [...] Colonoscopy 12/2022 Hospitalization History SEE SURGICAL HX [employer] Other History general Narrative - Reported* Type [...] art anaya 03/2023 Hospitalization History SEE SURGICAL HX [employer] Other Hospital Discharge instructions No data available for this section [facility] No data available for this section [facility] for referral (narrative)* Reason 10/09/22 Referral for carotid artery stenosis Diagnosis 1 Left carotid artery stenosis (I65.22) Referral Organization [facility] Chava chester Referring Provider First Name Juancarlos Referring Provider Last Name Bang Referring Provider Specialty Internal Me dicine [facility] Referred Provider AlejandraRosi rodriguezjosselin Referred Address [address], [place],[address] Referred Provider Specialty Vascular Ruslan kajal Referral Priority Routine Referral Appointment Date 2022-10-09 General Notes Mr. Hooper is being r eferred for carotid artery stenosis. He recently completed carotid artery US at [facility], which revealed 87% left carotid bulb stenosis. The ICA velocities are not elevated, which was suggested to be due to hemodynamically significant stenosis in the left bulb. Seema Jaquez 09/23/2022 01:11:23 PM >received today, attachments made, referral faxed Janae Fulton 09/29/2022 02:11:56 PM > Patient is scheduled on 10/09 at 10 a.m. at [facility] Clinical Notes Mr. Hooper is being r eferred for further evaluation and treatment of left carotid artery stenosis. He has multiple risk factors, including HTN, HLD, DM and PAD. He has no history of TIA or CVA. He denies diplopia, loss of vision, dysarthria, facial droop or unilateral extremity weakness. 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 Advance Directive(s) 09/24/2021 8:40 AM Advance Directive(s) 06/07/2021 10:19 AM Advance Directive(s) 05/15/2021 3:36 PM M ain Documents on File Type Date Recorded Patient Office Electrician Expl 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 Advance Directive(s) 09/24/2021 8:40 AM Advance Directive(s) 06/07/2021 10:19 AM Advance Directive(s) 05/15/2021 3:36 PM M ain Documents on File Type Date Recorded Patient Office Electrician Expl 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 Advance Directive(s) 09/24/2021 8:40 AM Documents on File Type Date Recorded Patient Office Electrician Expl 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 Advance Directive(s) 09/24/2021 8:40 AM Reason for Referral Specialty Diagnoses / Procedures Referred By Contac t Referred To Contact CT IMAGING Diagnoses Ventral incisional hernia Procedures CT ABD/PEL WO IVCON CT ABD & PELVIS W/O CONTRAST Jay Gonzalez MD [address] [place] [address] Ct Imaging Referral ID Status Reason Start Date Expiration Date Visits Requested Visits Authorized [id number] Pending Review Auto-Generat ed Referral 10/10/2022 11/09/2022 1 1 Referral ID Status Reason Start Date Expiration Date V isits Requested Visits Authorized [id number] Closed Auto-Generate d Referral 10/10/2022 11/09/2022 1 1 Specialty Diagnoses / Procedures Referred By Contac t Referred To Contact CT IMAGING Diagnoses Ventral incisional hernia Procedures CT ABD/PEL WO IVCON CT ABD & P[place] [address] [place] [address] Ct Imaging Referral ID Status Reason Start Date Expiration Date Visits Requested Visits Authorized [id number] Pending Review Auto-Generat ed Referral 10/16/2022 11/15/2023 1 1 Additional Source Comments (unrecognized sect ion and content) No Status Records FoundNo Status Records FoundNo Status Records FoundNo Status Records FoundNo Status Records FoundNo Status Records FoundNo Status Records Found INFORMATION SOURCE (unrecogn ized section and content) DATE CREATED AUTHOR 03/11/2021 [facility] DATE CREATED AUTHOR AUTHOR'S ORGANIZ ATION 10/13/2022 [facility] DATE CREATED AUTHOR AUTHOR'S ORGANIZ ATION 10/21/2022 [facility] DATE CREATED AUTHOR AUTHOR'S ORGANIZ ATION 12/29/2022 [facility] DATE CREATED AUTHOR AUTHOR'S ORGANIZ ATION 12/29/[address] [facility] DATE CREATED AUTHOR AUTHOR'S ORGANIZ ATION 04/26/2023 [facility] DATE CREATED AUTHOR AUTHOR'S ORGANIZ ATION 07/29/2023 [facility] Source Comments (unrecognize d section and content) In the event this informatio n is protected by the Federal Confidentiality of Alcohol and Drug Abuse Patient Records regulations: The Federal rules restrict any use of the information to criminally investigate or prosecute any alcohol or drug abuse patient.[facility] HospitalIn the event this information is protected by the Federal Confidentiality of Alcohol and Drug Abuse Patient Records regulations: The Federal rules restrict any use of the information to criminally investigate or prosecute any alcohol or drug abuse patient.[facility] HospitalIn the event this information is protected by the Federal Confidentiality of Alcohol and Drug Abuse Patient Records regulations: The Federal rules restrict any use of the information to criminally investigate or prosecute any alcohol or drug abuse patient.[facility] HospitalIn the event this information is protected by the Federal Confidentiality of Alcohol and Drug Abuse Patient Records regulations: The Federal rules restrict any use of the information to criminally investigate or prosecute any alcohol or drug abuse patient.[facility] HospitalIn the event this information is protected by the Federal Confidentiality of Alcohol and Drug Abuse Patient Records regulations: The Federal rules restrict any use of the information to criminally investigate or prosecute any alcohol or drug abuse patient.[facility] HospitalIn the event this information is protected by the Federal Confidentiality of Alcohol and Drug Abuse Patient Records regulations: The Federal rules restrict any use of the information to criminally investigate or prosecute any alcohol or drug abuse patient.[facility] HospitalIn the event this information is protected by the Federal Confidentiality of Alcohol and Drug Abuse Patient Records regulations: The Federal rules restrict any use of the information to criminally investigate or prosecute any alcohol or drug abuse patient.[facility] HospitalIn the event this information is protected by the Federal Confidentiality of Alcohol and Drug Abuse Patient Records regulations: The Federal rules restrict any use of the information to criminally investigate or prosecute any alcohol or drug abuse patient.[facility] Reason for Visit (unrecogniz ed section and content) Reason Comments Follow Up Reason Comments Follow Up Reason Onset Date Comments Research 10/11/2021 Reason Comments Established Patient Follow-Up Reason Comments Patient Question Specialty Diagnoses / Procedures Referred By Contac t Referred To Contact CT IMAGING Diagnoses Ventral incisional hernia Procedures CT ABD/PEL WO IVCON CT ABD & PELVIS W/O CONTRAST Jay Gonzalez MD [address] [place], [place] [id number] Ct Imaging Referral ID Status Reason Start Date Expiration Date V isits Requested Visits Authorized [id number] Closed Auto-Generate d Referral 10/10/2022 11/09/2022 1 1 Reason Comments Follow Up 1 year, ventral inci sional hernia Care Teams (unrecognized sec tion and content) Supervisor Production Department Relationship Specialty Start Date End Date Juancarlos Cuenca DO PCP - General Internal Medicine 10/23/14 [facility] Jon [address] [place] [address] Cardiology 09/13/21 Supervisor Production Department Relationship Specialty Start Date End Date Juancarlos Cuenca DO PCP - General Internal Medicine 10/23/14 [facility] [address] [place] [address] Cardiology 09/13/21 Supervisor Production Department Relationship Specialty Start Date End Date Juancarlos Cuenca DO PCP - General Internal Medicine 10/23/14 [facility] [address] [place] [id number] Cardiology 09/13/21 Supervisor Production Department Relationship Specialty Start Date End Date Juancarlos Cuenca, DO PCP - General Internal Medicine 10/23/14 Pedro Richardson MD Cardiology 09/13/21 [employer] Production Department Relationship Specialty Start Date End Date Juancarlos Cuenca DO PCP - General Internal Medicine 10/23/14 Pedro Richardson MD Cardiology 09/13/21 [employer] Production Department Relationship Specialty Start Date End Date Juancarlos Cuenca DO PCP - General Internal Medicine 10/23/14 Pedro Richardson MD Cardiology 09/13/21 [employer] Production Department Relationship Specialty Start Date End Date Juancarlos Cuenca DO PCP - General Internal Medicine 10/23/14 Pedro Richardson MD Cardiology 09/13/21 [employer] Production Department Relationship Specialty Start Date End Date Juancarlos Cuenca DO PCP - General Internal Medicine 10/23/14 Pedro Richardson MD Cardiology 09/13/21 FOR RECORDS PERTAINING TO [...] BE BASED ON THE PRIMARY CLINICAL RECORDS. [facility] [employer] [facility]. provides no warranty or guarantee of the accuracy or completeness of information in this document.
[2023-08-03 08:13] VITALS: BP 138/76; PULSE 69; RESP 16; TEMP 37; O2SAT 97
[2023-08-03 08:14] LABS: Glucometer 190 mg/dL (74-106)
[2023-08-03 09:01] VITALS: BP 98/52; PULSE 59; RESP 18; O2SAT 96
[2023-08-03 09:16] VITALS: BP 58/32; BP 94/55; PULSE 48; PULSE 62; RESP 18; RESP 20; O2SAT 96; O2SAT 98
--- NOTE | 2023-08-03 09:16 | P.ON_ITS ---
Date of procedure: 08/03/23 Pre-op diagnosis: Lumbar spondylosis Post-op diagnosis: same as pre-op Procedure: Procedure: Bilateral L4-5, l5-S1 radiofrequency ablation Medications: Bupivacaine 0.25% 6cc, lidocaine 2% 5cc, kenalog 80mg The patient was seen and examined in the preoperative holding area.? The site was marked.? Written informed consent was obtained and placed on the chart.? The patient was brought to the medical procedure unit and placed in the prone position.? A timeout was completed verifying correct patient, procedure, positioning, and special requirements.? The skin overlying the target points, the designated medial branch, were prepped and draped in the usual sterile fashion.? The target point was achieved with a 20-gauge 15 cm with a 10 mm curved active tip radiofrequency cannula under direct fluoroscopic visualization.? The needle was inserted at level L4 on the right side. Needle tip position was confirmed with lateral fluoroscopic position.? Motor stimulation was carried out at 2 Hz up to 5 volts with the absence of extremity activity.? This was repeated at level L5, S1 on right side.?? Sensory stimulation was carried out.? Concordant pain was realized at the above- mentioned sites.? Then radiofrequency lesioning was carried out times 90 seconds at 80 degrees times 2 lesions at each level.? The radiofrequency probe was removed prior to cannula removal.? The above-mentioned injectate was placed in 1 mL increments.? The needle was removed. The same procedure, with the same steps, was then completed on the left side at the same levels. Insertion sites were covered.? The patient was taken to the postoperative recovery area and monitored for an appropriate length of time before being found suitable for discharge in the company of a responsible adult. Anesthesia: Local Surgeon: Hanh Wade Pathology: none sent Condition: stable Disposition: no change
[2023-08-03] MEDS: LIDOCAINE HCL 2% 400 MG/20 ML MDV 14 ML INJ (09:17)
[2023-08-03] MEDS: BUPIVACAINE HCL 0.25% PF 25 MG/10 ML VIAL 4 ML INJ (09:17)
[2023-08-03] MEDS: TRIAMCINOLONE ACETONIDE 40 MG/ML VIAL 80 MG INJ (09:18)
[2023-08-03 09:20] VITALS: BP 88/47; PULSE 58; RESP 22; O2SAT 94
[2023-08-03 09:22] LABS: Glucometer 198 mg/dL (74-106)
[2023-08-03 09:24] VITALS: BP 106/59; PULSE 57; RESP 18; O2SAT 94
== END 2023-08-03 09:41 | disposition home or self-care (01) ==
PROVIDERS: PCP Internal Medicine; Visit Provider Anesthesiology
DX: M47.816 Spondylosis without myelopathy or radiculopathy, lumbar region (principal); Z79.84 Long term (current) use of oral hypoglycemic drugs
CPT/HCPCS: 36415; 64635; 64636; 82948; J0665; J3301

== ENCOUNTER 2023-09-02 09:47 | Outpatient (OUT) | payer MEDICARE, SELFPAY ==
--- OUTSIDE RECORDS SUMMARY | 2023-09-02 09:51 | XMS_ITS | CCD ---
Author Name Unknown Address [address] [place] [address] Organization [facility] Care Team Providers Care Ship Carpenter Name Role Phone JUANCARLOS GAN Referring Unavailable JUANCARLOS GAN Primary Care Unavailable Delonte Webb Admitting Unavailable Delonte Webb Attending Unavailable JUANCARLOS GAN Referring Unavailable TY DUMONT Surgeon Unavailable TY DUMONT Admitting Unavailable JUANCARLOS GAN Primary Care Unavailable TY DUMONT Attending Unavailable [place] Procedure Practitioner Unavailab Junacarlos Delatorre DO Primary Care Provider Pedro Benavides Ahmed Unavailable [phone] Dylan VANESSA, [facility] Ahmed Unavailable [phone] JUANCARLOS GAN Primary Care Physician Juancarlos Gan Unavailable Juancarlos Gan DO Primary Care Provider Dylan VANESSA, [facility] Ahmed Unavailable [phone] JAY MORA Referring Unavailable JUANCARLOS GAN Primary Care Unavailable JAY MORA Referring Unavailable JUANCARLOS GAN Primary Care Unavailable JAY OMRA Attending Unavailable JUANCARLOS GAN Primary Care Unavailable JUS BRAY Referring Unavailable JUS BRAY Attending Unavailable JUANCARLOS GAN Primary Care Unavailable LAMAS ., DR EVAN [...] Attending Unavailable BANG, DR VEGA Admitting Unavailable BANG, DR VEGA Consulting Unavailable HALKER ., MANAV Attending Unavailable BALL, DR VEGA Primary Care Unavailable HALKER ., MAANV Admitting Unavailable ZIEBER, DR GABY Patel Consulting [...] VEGA Primary Care Unavailable FULLER ., CHRISTIN Reis Unavailable LAMAS ., DR EVAN Mcleod Attending [...] LAMAS ., DR EVAN Mcleod Admitting Unavailable BANG, [...] Attending Unavailable MARINO MOE Attending Unavailable PEDRO BENAVIDES Attending Unavailable Gigarciaitis , Hanh Chiang Attending Unavailable Mauro VANESSA, Hanh Chiang Attending Unavailable Nirmala James Unavailable Juancarlos Gan Attending Unavailable Bang, Juancarlos Primary Care Unavailable Bang, Juancarlos Admitting Unavailable Allergies Allergy Classification Reported Allergen(s) Allergy Type Date of Onset Reaction(s) Facility (20 sources) Morphine; Translations: [morphine] Drug Allergy Unknown [facility] Repository (1 source) Morphine Drug Allergy 06-05-2023 [facility] Repository Medications Current Medications Medication Drug Class(es) Dates Sig (Normalized) Sig (Original) Accu-Chek Guide - (20 sources) Accu-Chek Guide - USE TO TEST HOME BLOOD SUGAR ONCE DAILY for 90 Active amLODIPine 5 mg oral tablet (10 sources) Dihydropyridine Calcium Channel Ciera Start: 05-17-2023 [...] mouth. meclizine hydrochloride 25 mg oral tablet (14 sources) Antiemetic take 1 tablet by mouth [...] meals. ondansetron 4 mg disintegrating oral tablet (14 sources) Serotonin-3 Receptor Antagonist take 1 tablet [...] CPAP (8 sources) [facility] at [facility]. 0 Active Comment on above: daily [...] oral capsule (6 sources) alpha-Adrenergic Ciera Start: End: 2 take 1 capsule by mouth once daily tamsulosin (FLOMAX) 0.4 mg Take 1 capsule by mouth once daily. 30 capsule 0 10/01/2021 Active Comment on above: Take 1 capsule by mo [facility] once daily. 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] Onset: 05-19-2022 [...] unspecified] Onset: 09-17-2022 09-13-2021 Chronic Esophageal disorders (15 sources) Gastro-esophageal reflux disease with esophagitis; Translations: [...] aftercare (8 sources) 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; Translations: [FCI (current) use of antithrombotics/antip latelets] 09-13-2021 Episodic [...] Chronic Other nutritional; endocrine; and metabolic disorders (16 sources) Severe obesity; Translations: [Morbid (severe) obesity [...] [Dyshidrosis [pompholyx]] Episodic Peripheral and visceral atherosclerosis (19 sources) 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, right [...] without hemorrhage] Other aftercare (3 sources) Other terminal operations supervisor (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) drug therapy; Translations: [OTH [facility] CURRENT DRUG THERAPY] Onset: 09-17-2022 Episodic Other and unspecified benign neoplasm (11 sources) Polyp of colon; Translations: [Polyp of colon] Onset: 06-07-2021 06-07-2021 Episodic Unclassified (1 source) LOW BACK PAIN, UNSPECIFIED; Translations: [LOW BACK PAIN, UNSPECIFIED] Onset: 04-24-2022 Results Test Name Value Interpretation Reference Range Facility Office Visiton 04-22-2023 Follow-up visit [id number] Vu Yee Jorge 1945 M Date Provider Department Center 04/22/2023 Flores-PEDRO BENAVIDES Family History Problem Relation Age of Onset Coronary artery disease Mother Coronary artery disease Brother Family Status - Relation Status Age at Mother Brother Level of Service:26289 [place] OFFICE/OUTPATIENT ESTABLISHED LOW MDM 20-29 MIN Normal [facility] Outside Colonoscopyon 2022 Outside Colonoscopy [id number] 0CD:127 Normal [facility] Reminderson 12-18-2022 Reminders - From: Amy Menon LPN To: N - Clinical; Sent: 12/18/2022 12:06:16 EDT Show up: 11/16/2025 07:00:00 EDT Subject: colonoscopy recall Due Date/Time: 12/17/2025 07:00:00 EDT Reminder/Recall Patient due for surveillance colonoscopy 12/17/2025. Normal [facility] POINT OF CARE GLUCOSEon 11-19 Glucose [Mass/Vol] 176 mg/dL Critically high 74-106 [facility] Comment on above: Performed By: #### P OCGLUC #### [facility] [address] [address] [address] Rojelio Kingsley POINT OF CARE GLUCOSEon 11-19 Glucose [Mass/Vol] 157 mg/dL Critically high -106 [facility] Comment on above: Performed By: #### P OCGLUC #### [facility] [address] [address] [address] Rojelio Kingsley Consent for Procedure/Surger yon 12-03-2022 Consent for Procedure/Surgery [id number] 0CD:127 Normal [facility] Physician Referralon 023 Physician Referral [id number] 0CD:127 Normal [facility] General Surgery Office/Clini c Noteon 12-02-2022 General [...] anastomosis and ventral hernia repair 09/2021 at [facility], they recommend yearly surveillance sigmoidoscopies; patient [...] 1 tab(s), (more content not included)... Normal [facility] Comment on above: Result Comment: Elec tronically Signed By: PELON VANESSA, Nya Nicholson\Date and Time Signed: 12/02/22 11:37 EDT POINT OF CARE GLUCOSEon 04-2 Glucose [Mass/Vol] 121 mg/dL Critically high 74-106 [facility] Comment on above: Performed By: #### P OCGLUC #### [facility] [address] [place] [address] Dr. Rojelio Kingsley CNOVon 10-16-2022 CNOV Office Visit ([facility] ) LIZZY YEE ([id number]) 1945 M Date Time Provider Department 10/16/22 1:20 PM JAY MORA [facility] During your visit today, we recorded [...] Jay Mora MD 10/16/2022 3:05 PM Signed [facility] Abdominal Core Health - Follow Up [...] Mora MD 10/16/22, 2:45 PM General Surgery [facility] Allergies As of Date: 10/16/2022 (No Known Allergies) Date Reviewed: 10/16/2022 Reviewed by: Destiny Zapata MA - Fully Assessed Reason for Visit: Follow Up [171] Cmt: 1 year, ventral incisional hernia Primary Visit Diagnosis:Ventral incisional hernia [K43.2] Order(s):CT ABD/PEL WO IVCON [[id number]] Order #: [id number] FUTURE enteric contrast (will be provided with [...] without long-t (more content not included)... Normal [facility] 10-11-2022 [facility] HNO ID: [id number] Author: Glenda Romo RT(R) Service: Radiology Author [...] IV DATA: Not applicable SIGNED BY: Glenda Romo RT(R) October 11, 2022 10:29 AM [facility] [employer] [facility] CT ABD/PEL WO IVCONon 2022 CT ABD/PEL WO IVCON * * *Final Report* * * DATE OF EXAM: Oct 11 2022 10:30AM [facility] 0531 - CT ABD/PEL WO IVCON [...] site. Lower thorax: Lower lungs are clear. Physician Specialist (topogram) images: Unremarkable. IMPRESSION: Midline fat-containing upper abdominal hernia. Service Observer: PSCB Transcribe Date/Time: Oct 13 2022 7:57A Dictated by : YANICK RIVAS MD This examination was interpreted and the report reviewed and electronically signed by: YANICK RIVAS MD on Oct 13 2022 8:06AM EST [id number] [facility] 10-06-2022 [facility] Telephone ([facility]) JOSELITOLIZZY Jorge ([id number]) 1945 M Date Time Provider Department 10/06/22 JAY MORA [facility] During your visit today, we recorded the following information about you: Anjelica Harsh 10/06/2022 3:09 PM Signed Pt's called he is going in for a CT scan on Thursday does he need to have a creatinine blood level, says he had one within the last month or so at a non facility. PH: [phone] Efrain Guo RN 10/07/2022 10:43 AM Signed Returned call, went to voicemail. Left message that the CT has been ordered without contrast. Left office number for questions or concerns. Allergies As of Date: 10/06/2022 (No Known Allergies) Date Reviewed: 01/27/2022 Reviewed by: Sarah Osman MA - Fully Assessed Reason for Visit: Patient Question [0901] Prescriptions as of 10/07/2022 - lisinopril (ZESTRIL, [...] Status:Closed by EFRAIN GUO on 10/07/22 Normal [facility] Consent for Procedure/Surger yon 09-17-2022 Consent for Procedure/Surgery [id number] 0CD:127 Normal [facility] RAD - Ultrasound Reporton RAD - Ultrasound Report [id number] 0CD:127 Normal [facility] Ambulatory Visit Summaryon 0 09-16-2022 Ambulatory Visit Summary LIZZY YEE :1945 Visit Date:09/16/2022 Ambulatory Visit Instructions Your Diagnosis Personal history of colonic polyps Your Care Team Attending Physician - PELON VANESSA, Nya Patel Primary Care Physician - BANG GOODMAN, JUANCARLOS This Is Your Medications List Contact [...] no longer receiving treatment for. Hyperlipidemia Normal [facility] Ambulatory Visit Summary LIZZY YEE :1945 Visit Date:09/16/2022 Ambulatory Visit Instructions Your Care Team Attending Physician - PELON VANESSA, Nya Patel Primary Care Physician - JUANCARLOS GAN DO This Is Your Medications List Contact [...] longer receiving treatment for. Hyperlipidemia Normal [facility] General Surgery Office/Clini c Noteon 09-16-2022 General [...] anastomosis and ventral hernia repair 09/2021 at [facility]; requires yearly flexible sigmoidoscopy for surveillance. [...] Oral, Nathalie (more content not included)... Normal [facility] Comment on above: Result Comment: Elec tronically Signed By: PELON VANESSA, Nya Nicholson\Date and Time Signed: 09/16/22 11:17 EST Alanine Aminotransferaseon 0 - ALT [Catalytic activity/Vol] 30 U/L Normal 16-63 [employer] Other Comment on above: Performed By: #### B MP, ALT, LIPID #### [facility] [address] [place] [address] Dr. Rojelio Kingsley Basic Metabolic Panelon 08-21 Calcium [Mass/Vol] 9.1487014 mg/dL 8.5-10 .1 mg/dL [employer] Other CO2 [Moles/Vol] 25.36356550 mmol/L 21.0-3 2.0 mmol/L [employer] Other Creatinine [Mass/Vol] 1.63330694 mg/dL Critically high 0.70-1.30 mg/dL [employer] Other Potassium [Moles/Vol] 4.23693100 mmol/L 3 .5-5.1 mmol/L [employer] Other Urea nitrogen [Mass/Vol] 16.4032458 mg/dL 7.0-18.0 mg/dL [employer] Other Basic Metabolic Panel see note [employer] Other Basic Metabolic Panel 141 mmol/L 136-14 5 mmol/L [employer] Other Basic Metabolic Panel 134 mg/dL Critically high 74-106 mg /dL [employer] Other Basic Metabolic Panel 51 mL/min/1.73m2 Critically low >=60 mL/min/1.73m 2 [employer] Other Basic Metabolic Panel >60 mL/min/1.73m2 > =60 mL/min/1.73m 2 [facility] [employer] Other Anion gap [Moles/Vol] 15.2 mmol/L Normal [facility] [employer] Other Comment on above: Performed By: #### B MP, ALT, LIPID #### [facility] [address] [place] [address] Dr. Rojelio Kingsley Chloride [Moles/Vol] 105 mmol/L Normal 98-107 [facility] [employer] Other Comment on above: Performed By: #### B MP, ALT, LIPID #### [facility] [address] [place] [address] Dr. Rojelio Kingsley Urea nitrogen/Creatinine [Mass ratio] 11.8 mg/mg Normal [facility] [employer] Other Comment on above: Performed By: #### B MP, ALT, LIPID #### [facility] [address] [place] [address] Dr. Rojelio Kingsley CBC AUTO DIFFon 09-12-2022 BASO # 0.0 103/ul Normal 0.0-0.1 [facility] Comment on above: Performed By: #### C BC #### [facility] [address] [place] [address] Dr. Rojelio Kingsley Basophils/100 WBC (Bld) 0.4 % Normal 0.2-2.0 [facility] Comment on above: Performed By: #### C BC #### [facility] [address] [place] [address] Dr. Rojelio Kingsley EO # 0.3 103/ul Normal 0.0-0.7 [facility] Comment on above: Performed By: #### C BC #### [facility] [address] [place] [address] Dr. Rojelio Kingsley Eosinophils/100 WBC (Bld) 3.6 % Normal 0.9-7.0 [facility] Comment on above: Performed By: #### C BC #### [facility] [address] [place] [address] Dr. Rojelio Kingsley Erythrocyte distribution width (RBC) [Ratio] 14.1 % Normal 11.0-15.0 [facility] Comment on above: Performed By: #### C BC #### [facility] [address] [place] [address] Dr. Rojelio Kingsley Hematocrit (Bld) [Volume fraction] 40.1 % Critically low 42.0-54.0 [facility] Comment on above: Performed By: #### C BC #### [facility] [address] [place] [address] Dr. Rojelio Kingsley Hemoglobin (Bld) [Mass/Vol] 13.4 g/dL Critically low 14.0-18.0 [facility] Comment on above: Performed By: #### C BC #### [facility] [address] [place] [address] Dr. Rojelio Kingsley IG # 0.02 10e3/ul Normal 0.00-0.03 [facility] Comment on above: Performed By: #### C BC #### [facility] [address] [place] [address] Dr. Rojelio Kingsley IG % 0.2 % Normal 0.0-0.5 [facility] Comment on above: Performed By: #### C BC #### [facility] [address] [place] [address] Dr. Rojelio Kingsley LYMPH # 1.8 103/ul Normal 1.2-3.8 [facility] Comment on above: Performed By: #### C BC #### [facility] [address] [place] [address] Dr. Rojelio Kingsley Lymphocytes/100 WBC (Bld) 21.9 % Normal 20.5-60.0 [facility] Comment on above: Performed By: #### C BC #### [facility] [address] [place] [address] Dr. Rojelio Kingsley MANUAL DIFF REQ NO Normal [facility] Comment on above: Performed By: #### C BC #### [facility] [address] [place] [address] Dr. Rojelio Kingsley MCH (RBC) [Entitic mass] 30.6 pg Normal 25.9-34.0 [facility] Comment on above: Performed By: #### C BC #### [facility] [address] [address] [address] Rojelio Kingsley MCHC (RBC) [Mass/Vol] 33.4 g/dL Normal 29.9-35.2 [facility] Comment on above: Performed By: #### C BC #### [facility] [address] [address] [address] Rojelio Kingsley MCV (RBC) [Entitic vol] 91.6 fL Normal 80.0-94.0 [facility] Comment on above: Performed By: #### C BC #### [facility] [address] [place] [address] Dr. Rojelio Kingsley MONO # 0.8 103/ul Normal 0.3-0.8 [facility] Comment on above: Performed By: #### C BC #### [facility] [address] [place] [address] Dr. Rojelio Kingsley Monocytes/100 WBC (Bld) 9.3 % Normal 1.7-12.0 [facility] Comment on above: Performed By: #### C BC #### [facility] [address] [place] [address] Dr. Rojelio Kingsley NEUT # 5.4 103/ul Normal 1.4-6.5 [facility] Comment on above: Performed By: #### C BC #### [facility] [address] [place] [address] Dr. Rojelio Kingsley Neutrophils/100 WBC (Bld) 64.6 % Normal 43.0-75.0 [facility] Comment on above: Performed By: #### C BC #### [facility] [address] [place] [address] Dr. Rojelio Kingsley Platelet mean volume (Bld) [Entitic vol] 10.3 fL Normal 9.5-13.5 [facility] Comment on above: Performed By: #### C BC #### [facility] [address] [place] [address] Dr. Rojelio Kingsley PLT 214 103/ul Normal 150-450 [facility] Comment on above: Performed By: #### C BC #### [facility] [address] [address] [address] Rojelio Kingsley RBC 4.38 106/ul Critically low 4.70-6.10 [facility] Comment on above: Performed By: #### C BC #### [facility] [address] [address] [address] Rojelio Kingsley WBC 8.4 103/ul Normal 4.0-11.0 [facility] Comment on above: Performed By: #### C BC #### [facility] [address] [address] [address] Rojelio Kingsley GLYCOHEMOGLOBIN A1Con 2022 ADA RECOMMENDATION SEE BELOW Normal [facility] Comment on above: Result Comment: ADA RECOMMENDED LIMIT 4.0 - 6.0 ADA THERAPEUTIC TARGET < 7.0 ACTION SUGGESTED > 7.0 Performed By: #### P OCGLUC #### [facility] [address] [place] [address] Dr. Rojelio Kingsley Glucose [Mass/Vol] 169 mg/dL Normal [facility] Comment on above: Performed By: #### P OCGLUC #### [facility] [address] [place] [address] Dr. Rojelio Kingsley HbA1c (Bld) [Mass fraction] 7.5 % Critically high 4.5-6.2 [facility] Comment on above: Performed By: #### P OCGLUC #### [facility] [address] [place] [address] Dr. Rojelio Kingsley LIPID PROFILEon 09-12-2022 CHOL-HDL RATIO NORM SEE BELOW Normal [facility] Comment on above: Result Comment: 3.3 - 4.4 LOW RISK 4.4 - 7.1 AVERAGE RISK 7.1 - 11.0 MODERATE RISK >11.0 HIGH RISK Performed By: #### B MP, ALT, LIPID #### [facility] [address] [place] [address] Dr. Rojelio Kingsley Cholesterol in LDL [Mass/Vol] 31.2 mg/dL Normal [facility] Comment on above: Performed By: #### B MP, ALT, LIPID #### [facility] [address] [place], [place] [address] Dr. Rojelio Kingsley HDL NORMAL > or = 60 mg/dl - LO W CARDIOVASCULAR RISK <40 mg/dl - HIGH CARDIOVASCULAR RISK Normal [facility] Comment on above: Performed By: #### B MP, ALT, LIPID #### [facility] [address] [place], [place] [address] Dr. Rojelio Kingsley LDL CALC NORMAL SEE BELOW Normal [facility] Comment on above: Result Comment: <100 mg/dl OPTIMAL 100 - 129 mg/dl NEAR OR ABOVE OPTIMAL 130 - 159 mg/dl BORDERLINE HIGH 160 - 189 mg/dl HIGH >190 mg/dl VERY HIGH Performed By: #### B MP, ALT, LIPID #### [facility] [address] [address] [address] Rojelio Kingsley VLDL CALC 40.8 mg/dL Normal [facility] Comment on above: Performed By: #### B MP, ALT, LIPID #### [facility] [address] [address] [address] Rojelio Kingsley Lipid Panelon 09-12-2022 Lipid Panel > or = 60 mg/dl - LO W CARDIOVASCULAR RISK <40 mg/dl - HIGH CARDIOVASCULAR RISK [employer] Other Lipid Panel SEE BELOW [employer] Other Lipid Panel 31.2 mg/dL [employer] Other Lipid Panel 40.8 mg/dL [employer] Other Cholesterol [Mass/Vol] 115 mg/dL Normal <=200 [employer] Other Comment on above: Performed By: #### B MP, ALT, LIPID #### [facility] [address] [id number] Rojelio Kingsley Cholesterol in HDL [Mass/Vol] 43 mg/dL Normal 40-60 [employer] Other Comment on above: Performed By: #### B MP, ALT, LIPID #### [facility] [address] [address] [address] Rojelio Kingsley Cholesterol.total/Cho lesterol in HDL [Mass ratio] 2.7 {ratio} Normal [facility] [employer] Other Comment on above: Performed By: #### B MP, ALT, LIPID #### [facility] [address] [place] [address] Dr. Rojelio Kingsley Triglyceride [Mass/Vol] 204 mg/dL Critically high <=150 [employer] Other Comment on above: Performed By: #### B MP, ALT, LIPID #### [facility] [address] [place] [address] Dr. Rojelio Kingsley MICROALBUMIN, RAND URon - mALB 2.1 mg/L Normal <=30.0 [facility] Comment on above: Performed By: #### M ALBR #### [facility] [address] [place] [address] Dr. Rojelio Kingsley PROF CHEM 8 (BAS METB)on Calcium [Mass/Vol] 9.6 mg/dL Normal 8.5-10.1 [facility] Comment on above: Performed By: #### B MP, ALT, LIPID #### [facility] [address] [place] [address] Dr. Rojelio Kingsley CO2 [Moles/Vol] 25.1 mmol/L Normal 21.0-32.0 [facility] Comment on above: Performed By: #### B MP, ALT, LIPID #### [facility] [address] [place] [address] Dr. Rojelio Kingsley Creatinine [Mass/Vol] 1.36 mg/dL Critically high 0.70-1.30 [facility] Comment on above: Performed By: #### B MP, ALT, LIPID #### [facility] [address] [place] [address] Dr. Rojelio Kingsley EGFR-AF MALAYSIAN >60 Normal >=60 [facility] Comment on above: Performed By: #### B MP, ALT, LIPID #### [facility] [address] [place] [address] Dr. Rojelio Kingsley EGFR-NON AF MALAYSIAN 51 mL/min/1.73m2 Critically low >=60 [facility] Comment on above: Performed By: #### B MP, ALT, LIPID #### [facility] [address] [address] [address] Rojelio Kingsley Glucose [Mass/Vol] 134 mg/dL Critically high 74-106 [facility] Comment on above: Performed By: #### B MP, ALT, LIPID #### [facility] [address] [place] [address] Dr. Rojelio Kingsley Potassium [Moles/Vol] 4.3 mmol/L Normal 3.5-5.1 [facility] Comment on above: Performed By: #### B MP, ALT, LIPID #### [facility] [address] [place] [address] Dr. Rojelio Kingsley Sodium [Moles/Vol] 141 mmol/L Normal 136-145 [facility] Comment on above: Performed By: #### B MP, ALT, LIPID #### [facility] [address] [place] [address] Dr. Rojelio Kingsley Urea nitrogen [Mass/Vol] 16.0 mg/dL Normal 7.0-18.0 [facility] Comment on above: Performed By: #### B MP, ALT, LIPID #### [facility] [address] [place] [address] Dr. Rojelio Kingsley US CAROTID ART BILon [...] GABY PADILLA Date: 2022-09-12 15:22 Normal [facility] US CAROTID ART [email or web address] Other Orders Onlyon 07-24-2022 Orders Only [id number] Vu Yee 1945 M Date Provider Department Center 07/24/2022 SALENAZOFIA CARD [facility] Family History Problem Relation Age of Onset Coronary artery disease Mother Coronary artery disease Brother Family Status - Relation Status Age at Mother Brother Normal [facility] POINT OF CARE GLUCOSEon 06-19 Glucose [Mass/Vol] 106 mg/dL Normal 74-106 [facility] Comment on above: Performed By: #### P OCGLUC #### [facility] [address] [address] [address] Rojelio Kingsley [facility]on SARS-CoV-2 (COVID-19) RNA MITCHELL+probe Ql (Unsp spec) Not detected Normal NOT DETECTED [facility] Comment on above: Result Comment: This test is not yet approved or cleared by the [place] FDA. When there are no FDA-approved or cleared tests available, and other criteria are met, FDA can make tests available under an emergency access mechanism called an Emergency Use Authorization (EUA). The EUA for this test is supported by the [place] of Health and Human Service's (HHS's) declaration [...] SARS-CoV-2. Performed By: #### P OCGLUC #### [facility] [address] [place], [place] [address] Dr. Rojelio Kingsley 29on 05-19-2022 29 Addended by: MARINO MOE on: 05/19/2022 03:14 PM Modules accepted: Level of Service Normal [facility] Follow-Upon 05-19-2022 Follow-Up [id number] Vu Yee 1945 M Date Provider Department Center 05/19/2022 166-MARINO MOE CARD [facility] Family History Problem Relation Age of Onset Coronary artery disease Mother Coronary artery disease Brother Family Status - Relation Status Age at Mother Brother Level of Service:03707 [place] OFFICE/OUTPATIENT ESTABLISHED LOW MDM 20-29 MIN Reason for Visit and Comments: Coronary Artery Disease [187] Hypertension [509129] Peripheral Vascular Disease [458] Normal [facility] POINT OF CARE GLUCOSEon 04-20 Glucose [Mass/Vol] 129 mg/dL Critically high 74-106 [facility] Comment on above: Performed By: #### P OCGLUC #### [facility] [address] [address] [address] Rojelio Kingsley POINT OF CARE GLUCOSEon 03-21 Glucose [Mass/Vol] 116 mg/dL Critically high 74-106 [facility] Comment on above: Performed By: #### P OCGLUC #### [facility] [address] [place] [address] Dr. Rojelio Kingsley XR LSPINE 2_3 VIEWSon [...] by: GABY PADILLA Date: 2022-03-05 13:06 Normal [facility] CBC AUTO DIFFon 02-22-2022 BASO # 0.0 103/ul Normal 0.0-0.1 [facility] Comment on above: Performed By: #### P OCGLUC #### [facility] [address] [address] [address] Rojelio Kingsley Basophils/100 WBC (Bld) 0.4 % Normal 0.2-2.0 [facility] Comment on above: Performed By: #### P OCGLUC #### [facility] [address] [address] [address] Rojelio Kingsley EO # 0.3 103/ul Normal 0.0-0.7 [facility] Comment on above: Performed By: #### P OCGLUC #### [facility] [address] [address] [address] Rojelio Kingsley Eosinophils/100 WBC (Bld) 3.0 % Normal 0.9-7.0 [facility] Comment on above: Performed By: #### P OCGLUC #### [facility] [address] [address] [address] Rojelio Kingsley Erythrocyte distribution width (RBC) [Ratio] 14.4 % Normal 11.0-15.0 [facility] Comment on above: Performed By: #### P OCGLUC #### [facility] [address] [address] [address] Rojelio Kingsley Hematocrit (Bld) [Volume fraction] 37.1 % Critically low 42.0-54.0 [facility] Comment on above: Performed By: #### P OCGLUC #### [facility] [address] [address] [address] Rojelio Kingsley Hemoglobin (Bld) [Mass/Vol] 12.2 g/dL Critically low 14.0-18.0 [facility] Comment on above: Performed By: #### P OCGLUC #### [facility] [address] [address] [address] Rojelio Kingsley IG # 0.03 10e3/ul Normal 0.00-0.03 [facility] Comment on above: Performed By: #### P OCGLUC #### [facility] [address] [address] [address] Rojelio Kingsley IG % 0.4 % Normal 0.0-0.5 [facility] Comment on above: Performed By: #### P OCGLUC #### [facility] [address] [address] [address] Rojelio Kingsley LYMPH # 1.8 103/ul Normal 1.2-3.8 [facility] Comment on above: Performed By: #### P OCGLUC #### [facility] [address] [address] [address] Rojelio Kingsley Lymphocytes/100 WBC (Bld) 21.6 % Normal 20.5-60.0 [facility] Comment on above: Performed By: #### P OCGLUC #### [facility] [address] [place] [address] Dr. Rojelio Kingsley MANUAL DIFF REQ NO Normal [facility] Comment on above: Performed By: #### P OCGLUC #### [facility] [address] [address] [address] Rojelio Kingsley MCH (RBC) [Entitic mass] 30.0 pg Normal 25.9-34.0 [facility] Comment on above: Performed By: #### P OCGLUC #### [facility] [address] [address] [address] Rojelio Kingsley MCHC (RBC) [Mass/Vol] 32.9 g/dL Normal 29.9-35.2 [facility] Comment on above: Performed By: #### P OCGLUC #### [facility] [address] [address] [address] Rojelio Kingsley MCV (RBC) [Entitic vol] 91.4 fL Normal 80.0-94.0 [facility] Comment on above: Performed By: #### P OCGLUC #### [facility] [address] [place] [address] Dr. Rojelio Kingsley MONO # 0.7 103/ul Normal 0.3-0.8 [facility] Comment on above: Performed By: #### P OCGLUC #### [facility] [address] [address] [address] Rojelio Kingsley Monocytes/100 WBC (Bld) 8.4 % Normal 1.7-12.0 [facility] Comment on above: Performed By: #### P OCGLUC #### [facility] [address] [address] [address] Rojelio Kingsley NEUT # 5.5 103/ul Normal 1.4-6.5 [facility] Comment on above: Performed By: #### P OCGLUC #### [facility] [address] [address] [address] Rojelio Kingsley Neutrophils/100 WBC (Bld) 66.2 % Normal 43.0-75.0 [facility] Comment on above: Performed By: #### P OCGLUC #### [facility] [address] [address] [address] Rojelio Kingsley Platelet mean volume (Bld) [Entitic vol] 10.3 fL Normal 9.5-13.5 [facility] Comment on above: Performed By: #### P OCGLUC #### [facility] [address] [address] [address] Rojelio Kingsley PLT 202 103/ul Normal 150-450 [facility] Comment on above: Performed By: #### P OCGLUC #### [facility] [address] [address] [address] Rojelio Kingsley RBC 4.06 106/ul Critically low 4.70-6.10 [facility] Comment on above: Performed By: #### P OCGLUC #### [facility] [address] [address] [address] Rojelio Kingsley WBC 8.3 103/ul Normal 4.0-11.0 [facility] Comment on above: Performed By: #### P OCGLUC #### [facility] [address] [address] [address] Rojelio Kingsley GLYCOHEMOGLOBIN A1Con 2021 ADA RECOMMENDATION SEE BELOW Normal [facility] Comment on above: Result Comment: ADA RECOMMENDED LIMIT 4.0 - 6.0 ADA THERAPEUTIC TARGET < 7.0 ACTION SUGGESTED > 7.0 Performed By: #### A 1C #### [facility] [address] [address] [address] Rojelio Kingsley Glucose [Mass/Vol] 151 mg/dL Normal [facility] Comment on above: Performed By: #### A 1C #### [facility] [address] [address] [address] Rojelio Kingsley HbA1c (Bld) [Mass fraction] 6.9 % Critically high 4.5-6.2 [facility] Comment on above: Performed By: #### A 1C #### [facility] [address] [address] [address] Rojelio Kingsley Consultation Noteon 02-19-20 Consultation Note [id number] 0CD:[id number] Normal [facility] CNOVon 01-27-2022 [facility] Office Visit ([facility] ) LIZZY YEE ([id number]) 1945 M Date Time Provider Department 01/27/22 1:00 PM JUS BRAY [facility] During your visit today, we recorded [...] No Drains: No Referring Provider: JUS BRAY [[id number]] Allergies As of Date: 01/27/2022 (No Known Allergies) Date Reviewed: 01/27/2022 Reviewed by: Sarah Osman MA - Fully Assessed Reason for Visit: Established Patient Follow-Up [[id number]] Primary Visit Diagnosis:Polyposis of colon [K63.5] Other [...] 3-6 mo (more content not included)... Normal [facility] KNEE RIGHT 3 VWSon KNEE RIGHT 3 S [facility] Department of Radiology [address] [place] [id number] ======== Patient Name: LIZZY YEE : 1945 Sex: M Age: Race: White Pt. Location: Patient Status: Ordered Date: 01/09/2021 1:10:00 PM Completed Date: 01/09/2021 01:11 PM Requesting Provider: TY DUMONT Attending Provider: Report Copy To: Signs & Symptoms: Z96.659 Presence of unspecified artificial knee joint I10 History: Comments: Exam: KNEE RIGHT 3 S ======== KNEE RIGHT 3 [facility] HISTORY: Knee replacement, follow-up. COMPARISON: 12/26/2020. IMPRESSION: 1. Redemonstrated total knee prosthesis, no hardware complication or acute abnormality. No significant joint effusion. Mild soft tissue swelling noted. Electronically signed: Mitul Banks. Transcribed by: [email or web address], User Resident: Electronically Signed by: MITUL BANKS @ 01/09/2021 08:47 PM Normal [facility] POC GLUCOSE LABon 12-29-2020 Glucose [Mass/Vol] 194 mg/dL High 70-100 [facility] Comment on above: Performed By: #### 8 [id number] #### [facility] [address] [place] [address], [place] Glucose [Mass/Vol] 125 mg/dL High 70-100 [facility] Comment on above: Performed By: #### 8 [id number] #### [facility] [address] [place] [address], [place] POC GLUCOSE LABon 12-28-2020 Glucose [Mass/Vol] 197 mg/dL High 70-100 [facility] Comment on above: Performed By: #### 8 [id number] #### [facility] [address] [place] [address], [place] Glucose [Mass/Vol] 177 mg/dL High 70-100 [facility] Comment on above: Performed By: #### 8 [id number] #### [facility] [address] [place] [address], [place] Glucose [Mass/Vol] 215 mg/dL High 70-100 [facility] Comment on above: Performed By: #### 8 [id number] #### [facility] [address] [place] [address], [place] Glucose [Mass/Vol] 152 mg/dL High 70-100 [facility] Comment on above: Performed By: #### 8 [id number] #### [facility] [address] [place] [address], [place] BASIC METABOLIC PANELon 12-18 Calcium [Mass/Vol] 8.2 mg/dL Low 8.6-10.3 [facility] Comment on above: Order Comment: No: D o not add to previous draw Performed By: #### 8 [id number] #### [facility] [address] [place] [address], [place] Chloride [Moles/Vol] 102 mmol/L Normal 98-107 [facility] Comment on above: Order Comment: No: D o not add to previous draw Performed By: #### 8 [id number] #### [facility] [address] [place] [address], [place] CO2 [Moles/Vol] 23 mmol/L Normal 21-31 [facility] Comment on above: Order Comment: No: D o not add to previous draw Performed By: #### 8 [id number] #### [facility] [address] [place] [address], [place] Creatinine [Mass/Vol] 0.97 mg/dL Normal 0.70-1.30 [facility] Comment on above: Order Comment: No: D o not add to previous draw Performed By: #### 8 [id number] #### [facility] [address] [place] [address], [place] GFR/1.73 sq M.predicted among blacks MDRD (S/P/Bld) [Vol rate/Area] mL/min/{1.73_m2} Normal >60 [facility] Comment on above: Order Comment: No: D o not add to previous draw Result Comment: Calc ulation may not be valid for patients over 70 years Performed By: #### 8 [id number] #### [facility] [address] [place] [address], [place] GFR/1.73 sq M.predicted among non-blacks MDRD (S/P/Bld) [Vol rate/Area] mL/min/{1.73_m2} Normal >60 [facility] Comment on above: Order Comment: No: D o not add to previous draw Result Comment: Calc ulation may not be valid for patients over 70 years Performed By: #### 8 [id number] #### [facility] [address] [place] [address], [place] Glucose [Mass/Vol] 191 mg/dL High 70-100 [facility] Comment on above: Order Comment: No: D o not add to previous draw Performed By: #### 8 [id number] #### [facility] [address] [place] [address], [place] Potassium [Moles/Vol] 3.8 mmol/L Normal 3.5-5.1 [facility] Comment on above: Order Comment: No: D o not add to previous draw Performed By: #### 8 [id number] #### [facility] [address] [place] [address], [place] Sodium [Moles/Vol] 134 mmol/L Low 136-145 [facility] Comment on above: Order Comment: No: D o not add to previous draw Performed By: #### 8 [id number] #### [facility] [address] [place] [address], [place] Urea nitrogen [Mass/Vol] 23 mg/dL Normal 7-25 [facility] Comment on above: Order Comment: No: D o not add to previous draw Performed By: #### 8 [id number] #### [facility] [address] [place] [address], [facility] CBC COMPLETE BLOOD COUNTon 0 12-27-2020 Erythrocyte distribution width (RBC) [Ratio] 13.3 % Normal 11.5-15.0 [facility] Comment on above: Order Comment: No: D o not add to previous draw Performed By: #### 8 [id number] #### [facility] [address] [place] [address], [place] Hematocrit (Bld) [Volume fraction] 35.4 % Low 39.0-50.0 [facility] Comment on above: Order Comment: No: D o not add to previous draw Performed By: #### 8 [id number] #### [facility] [address] [place] [address], [place] Hemoglobin (Bld) [Mass/Vol] 11.7 g/dL Low 13.0-17.0 [facility] Comment on above: Order Comment: No: D o not add to previous draw Performed By: #### 8 [id number] #### [facility] [address] [facility] [place] [address], [facility] MCH (RBC) [Entitic mass] 31.2 pg Normal 27.0-33.0 [facility] Comment on above: Order Comment: No: D o not add to previous draw Performed By: #### 8 [id number] #### [facility] [address] MCHC (RBC) [Mass/Vol] 33.1 g/dL Normal 32.0-35.0 [facility] Comment on above: Order Comment: No: D o not add to previous draw Performed By: #### 8 [id number] #### [facility] [address] [place] [address], [facility] MCV (RBC) [Entitic vol] 94.4 fL Normal 82.0-98.0 [facility] Comment on above: Order Comment: No: D o not add to previous draw Performed By: #### 8 [id number] #### [facility] [address] [facility]. [address] Nucleated RBC/100 WBC (Bld) [Ratio] 0 % Normal 0-0 [facility] Comment on above: Order Comment: No: D o not add to previous draw Performed By: #### 8 [id number] #### [facility] [address] [facility] [place] [address], [facility] PLAT CNT 177 10*3/uL Normal 150-400 [facility] Comment on above: Order Comment: No: D o not add to previous draw Performed By: #### 8 [id number] #### [facility] [address] [facility] [place] [address], [facility] RBC (Bld) [#/Vol] 3.75 10*6/uL Low 4.20-5.70 [facility] Comment on above: Order Comment: No: D o not add to previous draw Performed By: #### 8 [id number] #### [facility] [address] WBC (Bld) [#/Vol] 16.83 10*3/uL High 4.00-10.60 [facility] Comment on above: Order Comment: No: D o not add to previous draw Performed By: #### 8 [id number] #### [facility] [address] Operative Reporton Operative Report MR#: [id number] I [facility] Pt. Name: Lizzy Yee Room #: [id number] Discharge Date: Birthdate: 1945 OPERATIVE REPORT DATE [...] surgery. He has been cleared by his spool sorter for his surgery as well. The patient signed the consent form. Site was marked. We proceed with IV antibiotics in the form of 2 g of Ancef within an hour of the incision. PROCEDURE IN DETAIL: After written consent obtained, site was marked. The patient was taken to the [facility] OR and was seen by [...] content not included)... Normal [facility] POC GLUCOSE LABon 12-27-2020 Glucose [Mass/Vol] 200 mg/dL High 70-100 [facility] Comment on above: Performed By: #### 8 [id number] #### [facility] [address] [facility] [place] [address], [facility] Glucose [Mass/Vol] 186 mg/dL High 70-100 [facility] Comment on above: Performed By: #### 8 [id number] #### [facility] [address] [facility] [place] [address], [facility] Glucose [Mass/Vol] 250 mg/dL High 70-100 [facility] Comment on above: Performed By: #### 8 [id number] #### [facility] [address] [facility] [place] [address], [place] Glucose [Mass/Vol] 177 mg/dL High 70-100 [facility] Comment on above: Performed By: #### 8 [id number] #### [facility] [address] [facility] [place] [address], [place] POC GLUCOSE LABon 12-26-2020 Glucose [Mass/Vol] 230 mg/dL High 70-100 [facility] Comment on above: Performed By: #### 8 [id number] #### [facility] [address] [facility] [place] [address], [place] Glucose [Mass/Vol] 278 mg/dL High 70-100 [facility] Comment on above: Performed By: #### 8 [id number] #### [facility] [address] [facility] [place] [address], [place] Glucose [Mass/Vol] 174 mg/dL High 70-100 [facility] Comment on above: Performed By: #### 8 [id number] #### [facility] [address] [place] [address], [place] Glucose [Mass/Vol] 146 mg/dL High 70-100 [facility] Comment on above: Performed By: #### 8 [id number] #### [facility] [address] [facility] [place] [address], [facility] PORTABLE KNEE RIGHT 2 [facility] 12-26-2020 PORTABLE KNEE RIGHT 2 [facility] Department of Radiology [address] [place] [id number] ======== Patient Name: LIZZY YEE : 1945 Sex: M Age: Race: White Pt. Location: [id number] Patient Status: I Ordered Date: 12/26/2020 7:05:00 [...] replacement. Electronically signed: José Granados. Transcribed by: [email or web address], User Resident: JOSÉ GRANADOS Electronically Signed by: JOSÉ GRANADOS @ 12/26/2020 03:28 PM I personally read this/these film(s) with this resident Normal [facility] Comment on above: Order Comment: Hardw are Evaluation, In PACU; HIP RIGHT 1 OR 2 VWS WITH PE LVISon 10-05-2020 HIP RIGHT 1 OR 2 VWS WITH PELVIS [facility] Department of Radiology [address] [place] [phone] ======== Patient Name: LIZZY YEE : [...] narrowing. Electronically signed: Mitul Banks. Transcribed by: [email or web address], User Resident: Electronically Signed by: MITUL BANKS @ 10/05/2020 01:08 PM Normal [facility] Comment on above: Order Comment: Views (X-RAY, HIP): AP Pelvis, X-Table Lateral Hip , Weight Bearing?: Y KNEE LEFT 4VWSon 08-20-2020 KNEE LEFT 4VWS [facility] Department of Radiology [address] [place] [phone] ======== Patient Name: LIZZY YEE : 1945 Sex: M Age: Race: White Pt. Location: Patient Status: O Ordered Date: 08/20/2020 8:10:00 AM Completed Date: 08/20/2020 08:14 AM Requesting Provider: CEDRICK WILD Attending Provider: CEDRICK WILD Report Copy To: Signs & Symptoms: M25.569 Pain in unspecified knee I10 History: [place] Comments: Views (X-RAY, KNEE): AP, Lateral, Tunnel, [place] , Weight Bearing?: Y Exam: KNEE LEFT 4VWS ======== KNEE LEFT 4VWS 08/20/2020 8:14 AM CLINICAL INDICATIONS: M25.569 Pain in unspecified knee I10 TECHNOLOGIST COMMENTS: Patient states having bilateral knee pain. QUESTION FOR THE RADIOLOGIST: Views (X-RAY, KNEE): AP, Lateral, Tunnel, [place] , Weight Bearing?: Y PROTOCOL: AP,Lateral,Tunnel and [...] reports Electronically signed: Ej Rich. Transcribed by: [email or web address], User Resident: TAMERA MCNULTY Electronically Signed by: EJ RICH @ 08/20/2020 08:41 AM I personally read this/these film(s) with this resident Normal [facility] Comment on above: Order Comment: Views (X-RAY, KNEE): AP, Lateral, Tunnel, [place] , Weight Bearing?: Y KNEE RIGHT 4 Son 1 KNEE RIGHT 4 S [facility] Department of Radiology [address] [place] [phone] ======== Patient Name: LIZZY YEE : 1945 Sex: M Age: Race: White Pt. Location: 84 Patient Status: O Ordered Date: 08/20/2020 8:10:00 AM Completed Date: 08/20/2020 08:14 AM Requesting Provider: CEDRICK WILD Attending Provider: CEDRICK WILD Report Copy To: Signs & Symptoms: M25.569 Pain in unspecified knee I10 History: [place] Comments: Views (X-RAY, KNEE): AP, Lateral, Tunnel, [place] , Weight Bearing?: Y Exam: KNEE RIGHT 4 S ======== KNEE RIGHT 4 S 08/20/2020 8:14 AM SIGNS AND SYMPTOMS: M25.569 Pain in unspecified knee I10 TECHNOLOGIST COMMENTS: Patient states having bilateral knee pain. QUESTION FOR THE RADIOLOGIST: Views (X-RAY, KNEE): AP, Lateral, Tunnel, [place] , Weight Bearing?: Y PROTOCOL: AP,Lateral,Tunnel and [...] knee. Electronically signed: Ej Rich. Transcribed by: [email or web address], User Resident: Electronically Signed by: EJ RICH @ 08/20/2020 08:30 AM Normal [facility] Comment on above: Order Comment: Views (X-RAY, KNEE): AP, Lateral, Tunnel, [place] , Weight Bearing?: Y Vital Signs Date Time Vital Sign Value Performing Clinician Facility 06-05-2023 10:00-0500 Body height 165.1 cm Juancarlos Ball Other [email or web address] Other 06-05-2023 10:00-0500 Body mass index (BMI) [Ratio] 39.87 kg/m2 Juancarlos Ball Other [email or web address] Other 06-05-2023 10:00-0500 Body weight 108.68 kg Juancarlos Ball Other [email or web address] Other 06-05-2023 10:00-0500 Diastolic blood pressure 71 mm[Hg] Juancarlos Ball Other [email or web address] Other 06-05-2023 10:00-0500 Respiratory rate 20 /min Juancarlos Ball Other [email or web address] Other 06-05-2023 10:00-0500 Systolic blood pressure 118 mm[Hg] Juancarlos Ball Other [email or web address] Other 05-06-2023 13:45-0400 Body height 165.1 cm Juancarlos Ball Other [email or web address] Other 05-06-2023 13:45-0400 Body mass index (BMI) [Ratio] 39.97 kg/m2 Juancarlos Ball Other [email or web address] Other 05-06-2023 13:45-0400 Body weight 108.95 kg Juancarlos Ball Other [email or web address] Other 05-06-2023 13:45-0400 Diastolic blood pressure 87 mm[Hg] Juancarlos Ball Other [email or web address] Other 05-06-2023 13:45-0400 Respiratory rate 16 /min Juancarlos Ball Other [email or web address] Other 05-06-2023 13:45-0400 Systolic blood pressure 158 mm[Hg] Juancarlos Ball Other [email or web address] Other 03-10-2023 11:00-0400 Body height 165.1 cm Juancarlos Ball Other [email or web address] Other 03-10-2023 11:00-0400 Body mass index (BMI) [Ratio] 39.3 kg/m2 Juancarlos Ball Other [email or web address] Other 03-10-2023 11:00-0400 Body weight 107.14 kg Juancarlos Ball Other [email or web address] Other 03-10-2023 11:00-0400 Diastolic blood pressure 67 mm[Hg] Juancarlos Ball Other [email or web address] Other 03-10-2023 11:00-0400 Respiratory rate 16 /min Juancarlos Ball Other [email or web address] Other 03-10-2023 11:00-0400 Systolic blood pressure 120 mm[Hg] Juancarlos Ball Other [email or web address] Other 10-16-2022 13:12-0400 Body temperature 97.11 [degF] Jay Mora MD Work Phone: [facility] 10-16-2022 13:12-0400 Diastolic blood pressure 66 mm[Hg] Jay Mora MD Work Phone: [facility] 10-16-2022 13:12-0400 Heart rate 51 /min Jay Mora MD Work Phone: [facility] 10-16-2022 13:12-0400 SaO2% (BldA) [Mass fraction] 96 % Jay Mora MD Work Phone: [facility] 10-16-2022 13:12-0400 Systolic blood pressure 143 mm[Hg] Jay Mora MD Work Phone: [facility] 09-08-2022 13:30-0500 Body height 165.1 cm Juancarlos Ball Other [email or web address] Other 09-08-2022 13:30-0500 Body mass index (BMI) [Ratio] 39.33 kg/m2 Juancarlos Ball Other [email or web address] Other 09-08-2022 13:30-0500 Body weight 107.23 kg Juancarlos Ball Other [email or web address] Other 09-08-2022 13:30-0500 Diastolic blood pressure 70 mm[Hg] Juancarlos Ball Other [email or web address] Other 09-08-2022 13:30-0500 Respiratory rate 20 /min Juancarlos Ball Other [email or web address] Other 09-08-2022 13:30-0500 Systolic blood pressure 112 mm[Hg] Juancarlos Ball Other [email or web address] Other 01-27-2022 13:20-0400 Body height 165.1 cm Jus Bray MD Work Phone: [facility] 01-27-2022 13:20-0400 Body temperature 96.91 [degF] Jus Bray MD Work Phone: [facility] 01-27-2022 13:20-0400 Body weight 104.33 kg Jus Bray MD Work Phone: [facility] 01-27-2022 13:20-0400 Diastolic blood pressure 56 mm[Hg] Jus Bray MD Work Phone: [facility] 01-27-2022 13:20-0400 Heart rate 50 /min Jus Bray MD Work Phone: [facility] 01-27-2022 13:20-0400 SaO2% (BldA) [Mass fraction] 98 % Jus Bray MD Work Phone: [facility] 01-27-2022 13:20-0400 Systolic blood pressure 131 mm[Hg] Jus Bray MD Work Phone: [facility] 10-10-2021 10:46-0400 Body height 165.1 cm Jay Mora MD Work Phone: [facility] 10-10-2021 10:46-0400 Body weight 102.51 kg Jay Mora MD Work Phone: [facility] 10-10-2021 10:46-0400 Diastolic blood pressure 65 mm[Hg] Jay Mora MD Work Phone: [facility] 10-10-2021 10:46-0400 Heart rate 76 /min Jay Mora MD Work Phone: [facility] 10-10-2021 10:46-0400 Systolic blood pressure 137 mm[Hg] Jay Mora MD Work Phone: [facility] 10-10-2021 10:44-0400 Body height 165.1 cm Jus Bray MD Work Phone: [facility] 10-10-2021 10:44-0400 Body weight 102.51 kg Jus Bray MD Work Phone: [facility] 10-10-2021 10:44-0400 Diastolic blood pressure 65 mm[Hg] Jus Bray MD Work Phone: [facility] 10-10-2021 10:44-0400 Heart rate 76 /min Jus Bray MD Work Phone: [facility] 10-10-2021 10:44-0400 SaO2% (BldA) [Mass fraction] 98 % Jus Bray MD Work Phone: [facility] 10-10-2021 10:44-0400 Systolic blood pressure 137 mm[Hg] Jus Bray MD Work Phone: [facility] Encounters Encounter Date Encounter Type Care Provider Facility Start: 08-10-2023 (RD) User Experience Lead Nirmala James [facility] Start: 08-10-2023 End: 08-10-2023 ambulatory Juancarlos Bang [email or web address] Other Start: 08-03-2023 End: 08-04-2023 ambulatory Hanh Wade MD Facility:[facility] Start: 07-27-2023 End: 07-28-2023 ambulatory Hanh Wade MD Facility:[facility] [place] Start: 06-17-2023 End: 06-17-2023 ambulatory Juancarlos Bang Other [email or web address] Other Start: 06-17-2023 Telephone encounter Juancarlos Gan [facility] Start: 06-16-2023 End: 06-16-2023 ambulatory Juancarlos Gan Other [email or web address] Other Start: 06-16-2023 Telephone encounter Juancarlos Bang [facility] Start: 06-09-2023 End: 06-09-2023 ambulatory Juancarlos Gan Other [email or web address] Other Start: 06-09-2023 Telephone encounter Juancarlos Gan [facility] Start: 06-08-2023 End: 06-08-2023 ambulatory Juancarlos Gan Other [email or web address] Other Start: 06-08-2023 Telephone encounter Juancarlos Ball [facility] Start: 06-07-2023 End: 06-07-2023 ambulatory Juancarlos Gan Other [email or web address] Other Start: 06-07-2023 Telephone encounter Juancarlos Ball [facility] Start: 06-05-2023 End: 06-05-2023 ambulatory Juancarlos Ball Other [email or web address] Other Start: 06-05-2023 Office outpatient vi sit 25 minutes Juancarlos Ball [facility] Start: 05-27-2023 End: 05-27-2023 ambulatory Juancarlos Ball Other [email or web address] Other Start: 05-27-2023 Telephone encounter Juancarlos Ball [facility] Start: 05-17-2023 End: 05-17-2023 ambulatory Juancarlos Ball Other [email or web address] Other Start: 05-17-2023 Telephone encounter Juancarlos Ball [facility] Start: 05-15-2023 End: 05-15-2023 ambulatory Juancarlos Ball Other [email or web address] Other Start: 05-15-2023 Telephone encounter Juancarlos Ball [facility] Start: 05-07-2023 End: 05-07-2023 ambulatory Juancarlos Ball Other [email or web address] Other Start: 05-07-2023 Telephone encounter Juancarlos Ball [facility] Start: 05-06-2023 End: 05-06-2023 ambulatory Juancarlos Ball Other [email or web address] Other Start: 05-06-2023 Office outpatient vi sit 25 minutes Juancarlos Ball [facility] Start: 05-06-2023 Telephone encounter Juancarlos Ball [facility] Start: 04-22-2023 End: 04-22-2023 ambulatory AB [facility] Start: 04-04-2023 End: 04-04-2023 ambulatory Juancarlos Ball Other [email or web address] Other Start: 04-04-2023 Telephone encounter Juancarlos Ball [facility] Start: 03-10-2023 End: 03-10-2023 ambulatory Juancarlos Ball Other [email or web address] Other Start: 03-10-2023 Office outpatient vi sit 25 minutes Juancarlos Ball [facility] Start: 12-24-2022 End: 12-24-2022 ambulatory Juancarlos Ball Other [email or web address] Other Start: 12-24-2022 Telephone encounter Juancarlos BELL [facility] Start: 12-17-2022 End: 12-18-[address] NYA BRUMFIELD . Facility: Start: 12-16-2022 End: 12-16-2022 ambulatory NARRASHAADRANATH MEHRDADSHMIPATHKathy . Facility: Start: 12-02-2022 End: 12-03-2022 ambulatory Nya BRUMFIELD Facility: [place] Start: 11-28-2022 End: 11-29-2022 ambulatory MANAV GARY . Facility: Start: 11-28-2022 End: 11-29-2022 ambulatory NARENDRANATH LAKSHMIPATHY . Facility: Start: 11-11-2022 End: 11-11-2022 ambulatory NARENDRANATH LAKSHMIPATHY . Facility: Start: 10-28-2022 End: 10-29-[address] EVAN LAMAS . 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 Start: 09-16-2022 End: 09-17-2022 ambulatory Nya BRUMFIELD [employer] Other Start: 09-16-2022 End: 09-27-2022 Pre-admission assessment Nya BRUM[facility] Start: 09-12-2022 Telephone encounter Juancarlos Gan [facility] Start: 09-12-2022 End: 09-13-[address] JUANCARLOS GAN [facility] [employer] Other Start: 09-08-2022 End: 09-08-2022 ambulatory Juancarlos Gan Other [facility] [employer] Other Start: 09-08-2022 Patient encounter procedure Juancarlos Gan [facility] Start: 07-31-2022 End: 08-01-[address] EVAN LAMAS . Facility:[facility] Start: 07-03-2022 Encounter for preprocedural laboratory examination DR EVAN LAMAS . [facility] Start: 07-01-2022 End: 07-01-[address] [...] 02-22-2022 End: 02-23-[address] JUANCARLOS GAN Facility: Start: 01-27-2022 End: 01-27-2022 ambulatory JUS BRAY Facility:[facility] Start: 01-27-2022 End: 01-27-2022 Patient encounter procedure Jus Bray MD Work Phone: Colorectal Surgery Comment on above: Polyposis of colon ( Primary Dx); Incisional hernia, without obstruction or gangrene Start: 10-11-2021 Telephone encounter Shilpa Storm MD Work Phone: [facility] Comment on above: Research Start: 10-10-2021 End: 10-10-2021 Patient encounter procedure Jay Mora MD Work Phone: General Surgery Comment on above: Ventral incisional h ernia (Primary Dx) Polyposis of colon ( Primary Dx) Start: 12-26-2020 End: 12-29-2020 ambulatory JUANCARLOS GAN Facility:[facility] Start: 10-19-2020 End: 10-20-2020 ambulatory JUANCARLOS GAN Facility:[facility] Procedures Date Procedure Procedure Detail Performing Clinician Start: 10-04-2021 Partial resection of colon Nya BRUMFIELD Start: 10-04-2021 Repair of ventral hernia Nya BRUMFIELD Start: 04-08-2021 Colonoscopy Nya NI LL Comment on above: Transverse and desce nding colon polyps Start: 12-26-2020 ANESTH KNEE ARTHROPLASTY JUANCARLOS GAN Start: 12-26-2020 Arthrp kne condyle&p latu medial&lat compartments VITHAL SHENDGE Start: 12-26-2020 JOINT DEVICE (IMPLANTABLE) JUANCARLOS GAN Start: 11-17-2017 Colonoscopy Nya NI LL Comment on above: 2004 (2), 2005, 2007 , 2009, 2011, 05/2015, 11/2017 Start: 03-06-2016 Transurethral prostatectomy Nya BRUMFIELD Start: 02-18-2016 Cystoscopy Nya NI LL Start: 01-16-2016 Urodynamic studies [place] BRUMFIELD Start: 07-20-2012 Hernia repair Nya ROSARIO Start: 08-26-2007 Prosthetic arthropla sty of the hip Nya BRUMFIELD Start: 08-20-2007 Hernia of anterior abdominal wall (disorder) Nya BRUMFIELD Start: 04-19-2004 Transrectal biopsy o f prostate using ultrasound guidance Nya BRUMFIELD Atherectomy Nya BRUMFIELD Comment on above: with stent 2006 Bilateral vasectomy Nya BRUMFIELD Decompression of med med nerve Nya BRUMFIELD Through knee amputation [place] BRUMFIELD Plan of Treatment Date Care Activity Detail Author Start: 10-10-2022 End: 11-09-2022 Ct abdomen & pelvis w/o contrast material CT ABD/PEL WO IVCON Radiology Routine Ventral incisional hernia Expected: 10/10/2022, Expires: 11/09/2022 [facility] Work Phone: Comment on above: Expected: 10/10/2022 , Expires: 11/09/2022 Start: 07-20-2022 ADVANCE DIRECTIVE DISCUSSION ADVANCE DIRECTIVE DISCUSSION [facility] Start: 07-20-2022 DEPRESSION ASSESSMENT DEPRESSION ASS ESSMENT [facility] Start: 03-20-2022 Influenza vaccination INFLUENZA (#1) [facility] Start: 03-13-2022 Hemoglobin A1c/Hemoglobin.total in Blood HBA1C [facility] Start: 01-04-2022 COVID-19 VACCINE (5 - Booster for Pfizer series) COVID-19 VACCINE (5 - Booster for Pfizer series) [facility] Start: 07-20-2021 ADVANCE DIRECTIVE DISCUSSION ADVANCE DIRECTIVE DISCUSSION [facility] Start: 2009 PNEUMOVAX AGE 65 AND OVER WITH 5YR LOOKBACK (#1) PNEUMOVAX AGE 65 AND OVER WITH 5YR LOOKBACK (#1) [facility] Start: 1994 SHINGRIX VACCINE (1 of 2) SHINGRIX VACCINE (1 of 2) [facility] Start: 12-31-1963 Urine microalbumin profile DTAP,TDAP,TD (1 - Tdap) [facility] Start: 1962 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 MACY DISEASE VISIT ANNUAL PCP TEAM CHRONIC DISEASE VISIT [facility] Start: 1962 BP CONTROLLED (<130/80) BP CON TROLLED (<130/80) [facility] Start: 1962 Hepatitis B surface antibody level LDL CHOLESTEROL [facility] Start: 1962 HEPATITIS C SCREENING HEPATITIS C SC REENING [facility] Start: 1956 Adult depression screening assessment DEPRESSION SCREENING [facility] Start: 1954 3 comp foot exam completed DIABETIC FOOT EXAM [facility] Start: 1954 Hepatitis B screening URINE ALBUMIN:CREATININE RATIO [facility] Start: 1954 Hepatitis C antibody , confirmatory test DILATED RETINAL EXAM [facility] Start: 1950 PNEUMOCOCCAL: 65+ (1 - PCV) PNEUMOCOCCAL: 65+ (1 - PCV) [facility] End: 10-11-2022 Ct abdomen & pelvis w/o contrast material [facility] Work Phone: Comment on above: 1 Occurrences starti ng 10/11/2022 until 10/11/2022 End: 11-15-2023 Ct abdomen & pelvis w/o contrast material CT ABD/PEL WO IVCON Radiology Routine Ventral incisional hernia 1 Occurrences starting 10/16/2022 until 11/15/2023 [facility] Work Phone: Comment on above: 1 Occurrences starti ng 10/16/2022 until 11/15/2023 [facility] Immunizations Immunization Date Immunization Notes Care Provider Fa cili 05-20-2022 influenza virus vaccine, unspecified formulation Nya BRUMFIELD [facility] [place] 05-16-2022 influenza, high dose seasonal, preservative-free Juancarlos Gan Other [email or web address] Other 05-16-2022 influenza virus vaccine, split virus (incl. purified surface antigen) Juancarlos Gan Other [email or web address] Other 04-15-2022 SARS-CoV-2 (COVID-19 ) [id number] Nya SAVAGEL [facility] 11-09-2021 COVID-19 Vaccine Pfi zer - Documentation Purposes Only Juancarlos Gan Other [email or web address] Other 11-09-2021 SARS-CoV-2 mRNA (ckcgopsyflw-xhsg-tzixb se) vaccine Nya BRUMFIELD [facility] 04-19-2021 SARS-CoV-2 (COVID-19 ) mRNA BNT-162b2 vax Nya SAVAGEL [facility] Comment on above: Result Comment: 2022: [id number] 09-05-2020 SARS-CoV-2 (COVID-19 ) mRNA BNT-162b2 vax Nya [employer] [facility] Comment on above: Result Comment: 2022: [id number] 08-15-2020 COVID-19 Vaccine Moderna - Documentation Purposes Only Juancarlos Gan Other [facility] [employer] Other 08-15-2020 SARS-CoV-2 (COVID-19 ) mRNA BNT-162b2 vax Nya [employer] [facility] Comment on above: Result Comment: 2022: [id number] 03-28-2020 influenza virus vaccine, split virus (incl. purified surface antigen) Juancarlos Gan Other [email or web address] Other 05-17-2019 influenza virus vaccine, split virus (incl. purified surface antigen) Juancarlos Gan Other [email or web address] Other 05-13-2018 influenza virus vaccine, split virus (incl. purified surface antigen) Juancarlos Gan Other [employer] Other 04-25-2015 influenza virus vaccine, split virus (incl. purified surface antigen) Juancarlos Gan Other [email or web address] Other 04-25-2015 pneumococcal conjuga te vaccine, 13 valent Juancarlos Gan Other [employer] Other 04-19-2014 pneumococcal polysaccharide vaccine, 23 valent Juancarlos Gan Other [employer] Other 04-20-2013 tetanus and diphther ia toxoids, adsorbed, preservative free, for adult use (5 Lf of tetanus toxoid and 2 Lf of diphtheria toxoid) Juancarlos Gan Other [email or web address] Other 04-21-2012 pneumococcal polysaccharide vaccine, 23 valent Juancarlos Gan Other [email or web address] Other Payers Date Payer Category Payer Self-pay 2023 Unknown 2020 Private Health Insurance [facility] AARP SUPPLEMENT [id number] 2020-Present [phone] [address] [place] [address] Indemnity [id number] 2020 Private Health Insurance [facility] AARP SUPPLEMENT [id number] 2020-Present [phone] [address] [place] [address] Indemnity [id number] 2009 Medicare MEDICARE MEDICAR E A AND B [id number] 2009-Present [phone] [address] [address] [place] [address] Medicare [id number] 2009 Medicare [id number] 1959 Medicare [id number] 1959 Unknown [id number] 1944 Unknown [id number] 2.16.840.1.637985.3.579.2 .647 1944 Unknown [id number] 2.16.840.1.158947.3.579.2 .647 1944 Unknown [id number] 2.16.840.1.750389.3.579.2 .593 1944 Unknown [id number] 2.16.840.1.482841.3.579.2 .593 1944 Unknown [id number] 2.16.840.1.242705.3.579.2 .593 1944 Unknown [id number] 2.16.840.1.168007.3.579.2 .593 1944 Unknown [id number] 2.16.840.1.207708.3.579.2 .593 1944 Unknown [id number] 2.16.840.1.507354.3.579.2 .593 1944 Unknown [id number] 2.16.840.1.706172.3.579.2 .593 1944 Unknown [id number] 2.16.840.1.106358.3.579.2 .593 1944 Unknown [id number] 2.16.840.1.198492.3.579.2 .593 1944 Unknown [id number] 2.16.840.1.159829.3.579.2 .593 1944 Unknown [id number] 2.16.840.1.788502.3.579.2 .593 1944 Unknown [id number] 2.16.840.1.844027.3.579.2 .593 1944 Unknown [id number] 2.16.840.1.075945.3.579.2 .593 1944 Unknown [id number] 2.16.840.1.252963.3.579.2 .593 1944 Unknown [id number] 2.16.840.1.551097.3.579.2 .593 1944 Unknown [id number] 2.16.840.1.179849.3.579.2 .593 1944 Unknown [id number] 2.16.840.1.182962.3.579.2 .593 1944 Unknown [id number] 2.16840.1.939411.3.579.2 .593 1944 Unknown [id number] 2.16.840.1.484172.3.579.2 .593 1944 Unknown [id number] 2.16840.1.111139.3.579.2 .727 1944 Unknown [id number] 2.16.840.1.192144.3.579.2 .727 1944 Unknown [id number] 2.16840.1.391128.3.579.2 .727 1944 Unknown [id number] 2.16840.1.047148.3.579.2 .196 1944 Unknown [id number] 2.16840.1.292204.3.579.2 .196 Unknown [id number] Unknown [id number] 2.16840.1.238388.19 Unknown [id number] 2.16.840.1.928487.3.579.2 .531 Social History Date Type Detail Facility Start: 05-21-2021 End: 10-16-2022 Tobacco smoking status NHIS Ex-smoker [facility] End: 07-20-1994 History of tobacco use Current smoker [facility] End: 07-20-1994 History of tobacco use Cigar Smoker [facility] Start: 05-21-2021 End: 10-16-2022 Tobacco use and exposure Smokeless tobacco non-user [facility] Start: 10-10-2021 End: 10-16-2022 Alcohol intake Ex-drinker (finding) [facility] Start: 05-21-2021 End: 10-16-2022 Tobacco Comment Quit 15+ years [facility] Start: 1945 Sex Assigned At Not on file [facility] Start: 08-25-2021 End: 09-24-2021 Exposure to SARS-CoV-2 (event) Not sure [facility] Start: 09-16-2022 Tobacco smoking status Never s moked tobacco (finding) [facility] [place] Tobacco smoking status Former sm okeless tobacco user, quit more than 30 days ago [facility] [place] Sex Assigned At Male [facility] Medical Equipment Procedure Code Equipment Code Equipment Origin al Text Equipment Identifier Dates Mesh Parietene Polypropylene Macroporous [id number] Surgical Monofilament - [id number] Start: 09-24-2021 Clinical Notes 12-29-2020 to 08-10-2023 Note Date & Type Note Facility 08-10-2023 Evaluation note Encounter Date Diagnosis Assessment Notes Jul, Other Summary of Visit: (A) Meal timing (B) DM2 nutrition education (C) Answered general, nutrition-rela maru questions [facility] [employer] Other 11-28-2023 Evaluation note* Encounter Date Diagnosis Assessment Notes Treatment Notes Treatment Clinical Notes May, Type 2 diabetes mellitus with hyperglycemia, without long-term current use of insulin (ICD-10 - E11.65) [email or web address] Other 11-28-2023 Evaluation note* Encounter Date Diagnosis Assessment Notes Treatment Notes Treatment Clinical Notes May, Primary hypertension (ICD-10 - I10) [employer] Other 11-21-2023 Evaluation note* Encounter Date Diagnosis Assessment Notes Treatment Notes Treatment Clinical Notes May, Type 2 diabetes mellitus with hyperglycemia, without long-term current use of insulin (ICD-10 - E11.65) [employer] Other 11-17-2023 Evaluation note* Encounter Date Diagnosis [...] use, the patient reduces the risk for VA, CVA, HTN, cardiac dysrhythmias and sudden cardiac [...] index [BMI] 39.0-39.9, adult (ICD-10 - Z68.39) [employer] Other 11-08-2023 Evaluation note* Encounter Date Diagnosis Assessment Notes Treatment Notes Treatment Clinical Notes May, Primary hypertension (ICD-10 - I10) [employer] Other 10-29-2023 Evaluation note* Encounter Date Diagnosis Assessment Notes Treatment Notes Treatment Clinical Notes Apr, Type 2 diabetes mellitus with hyperglycemia, without long-term current use of insulin (ICD-10 - E11.65) Apr, Primary hypertension (ICD-10 - I10) [employer] Other 10-19-2023 Evaluation note* Encounter Date Diagnosis Assessment Notes Treatment Notes Treatment Clinical Notes Apr, Type 2 diabetes mellitus with hyperglycemia, without long-term current use of insulin (ICD-10 - E11.65) [employer] Other 10-18-2023 Evaluation note* Encounter Date Diagnosis Assessment Notes Treatment Notes Treatment Clinical Notes Apr, ASHD (arteriosclerotic heart disease) (ICD-10 - I25.10) This patient is stable without activity related CP, dyspnea or lightheadedness. They are instructed to continue exercise and AHA diet plan. Continue secondary prevention measures. Car Painter suggesting SGLT-2 for dual benefit w/ ASHD [...] contributed. 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 Inspect feet daily for cuts. Continue secondary prevention measures. Scheduled post op JAMIR [employer] Other 10-18-2023 Evaluation note* Encounter Date Diagnosis Assessment Notes Treatment Notes Treatment Clinical Notes Apr, Type 2 diabetes mellitus with hyperglycemia, without long-term current use of insulin (ICD-10 - E11.65) [employer] [facility] Chief Complaint: Patient here for 1 year follow up CAD, PVD, and hypertension. He underwent LE angiogram last month with Dr. Mccurdy of [facility]. He sees him for follow [...] history of Coronary artery disease, Diabetes mellitus (CMS/HCC), Hypertension, PVD (peripheral vascular disease) (CMS/HCC), and Sleep apnea. Surgical History He has [...] common femoral artery. Surgeon: Jyoti Mccurdy Primary Steel Burner: None. Anesthesia: Local with 1% lidocaine and [...] was given (more content not included)...[facility]08-22-2023 Evaluation note* Encounter Date Diagnosis Assessment [...] use, the patient reduces the risk for VA, CVA, HTN, cardiac dysrhythmias and sudden cardiac [...] [BMI ] 39.0-39.9, adult (ICD-10 - Z68.39) [employer] Other 05-31-2023 NoteOPERATIVE NOTE OPERATION DATE: 11/29/2022 [...] in three years. CC: Juancarlos Gan D.O.[id number] NotePROCEDURE: XR HIP LT 2 3V WO PELVIS HISTORY: Pain of left hip joint COMPARISON: None. FINDINGS: BONES:No fracture, acute abnormality, or significant arthropathy. SOFT TISSUES:No visible soft tissue swelling. EFFUSION:None visible. OTHER: Negative. IMPRESSION: 1. No acute bone abnormality. 2. Mild degenerative joint disease. Electronically authenticated by: GABY PADILLA Date: 2022-11-28 13:08[facility]04-11-2023 NoteCONSULTATION CONSULTATION DATE: 10/28/2022 TO: Juancarlos Gan [...] our patients to inform us about any wdqe-srh-ygwgsti medications or herbal remedies/nutritional supplements/alternative remedies. 2. [...] treatment options with their primary care provider.[facility] [id number] NoteHNO ID: [id number] Author: Jay Mora MD Service: ? Author Type: Physician Type: Progress Notes Filed: 10/16/2022 3:05 PM Note Text: [facility] - Follow Up [...] Mora MD 10/16/22, 2:45 PM General [facility] [facility] NoteHNO ID: [id number] Author: Destiny Zapata MA Service: ? Author Type: Raw Cheese Worker Type: Progress Notes Filed: 10/16/2022 3:05 PM Note Text: What is the reason for your visit today? Follow up 1 year Who is your referring physician? Are you having poor oral intake? NO Have you had unintentional weight loss of 15 lbs/7 Kg in the last 3-6 months? NO Bowels: regular Wound: Temperature: No Drains: [facility]03-30-2023 History of Present illness Narrative* Jay Mora MD - 10/16/2022 2:38 PM EDT [facility] - Follow Up [...] Mora MD 10/16/22, 2:45 PM General Surgery [facility] * Destiny Zapata MA - 10/16/2022 1:09 PM EDT What is the reason for your visit today? Follow up 1 year Who is your referring physician? Are you having poor oral intake? NO Have you had unintentional weight loss of 15 lbs/7 Kg in the last 3-6 months? NO Bowels: regular Wound: Temperature: No Drains: No documented in [facility] encounter[facility]-25-[facility]23 Miscellaneous Notes* Allied Health - RT [...] 2022 10:29 AM documented in this encounterMer[facility]03-21-2023 Miscellaneous Notes* Telephone Encounter - Efrain Guo [...] or so at a non facility. PH: [phone] documented in this encounterMercy [facility]02-24-2023 Evaluation note* Encounter Date Diagnosis Assessment Notes Treatment Notes Treatment Clinical Notes Aug, Left carotid artery stenosis (ICD-10 - I65.22) US: right <50%, left 50-69% - 10/2020 US: right <50%, left 80-90% - 08/2022 [email or web address] Other 02-20-2023 Evaluation note* Encounter Date Diagnosis [...] use, the patient reduces the risk for VA, CVA, HTN, cardiac dysrhythmias and sudden cardiac [...] reviewed and amended by provider signed below. [email or web address] Other 01-12-2023 NoteCONSULTATION PROCEDURE DATE: 09/18/2022 PREOPERATIVE [...] will be followed up in the office.[facility] [id number] NoteCONSULTATION CONSULTATION DATE: 07/31/2022 HISTORY OF PRESENT [...] and the patient agrees with this plan.[facility] 05-29-2022 NoteCONSULTATION CONSULTATION DATE: 05/29/2022 HISTORY [...] be followed up in the clinic thereafter.[facility] [id number] NotePatient here for 1 year follow up CAD, hypertension, and PVD. Had labs in September 2021 while at [facility] for colon surgery/hernia repair. He became hypotensive s/p surgery so his BP meds were adjusted. Denies chest pain and palpitations. Says his SOB with exertion remains unchanged. Review of Systems Cardiovascular: Positive for dyspnea on exertion. Musculoskeletal: Positive for arthritis, back pain, joint pain, muscle weakness and myalgias. Neurological: Positive for light-headedness and numbness.[facility]10-31-2022 NoteSUBJECTIVE Chief Complaint Patient presents with Coronary Artery Disease Hypertension Peripheral Vascular Disease Lizzy Yee is a 76 y.o. male here for follow-up. HPI Patient here for 1 year follow up CAD, hypertension, and PVD. Had labs in September 2021 while at [facility] for colon surgery/hernia repair. He became [...] position changes. HOSPITAL COURSE (from 09/2021 at [facility]): Mr Yee is a 75 year [...] Coronary artery disease PVD (peripheral vascular disease) (CMS/HCC) Hx of CABG Past Medical History: Diagnosis Date Coronary artery disease Diabetes mellitus (CMS/HCC) Hypertension PVD (peripheral vascular disease) (CMS/HCC) Sleep apnea Family History Problem Relation Name [...] by mo (more content not included)...[facility]10-06-2022 NoteCONSULTATION CONSULTATION DATE: 04/24/2022 This is [...] approval to hold his Plavix from his spool sorter. A refill for Baclofen 10 mg q.h.s. [...] knee osteoarthritis. The patient is in agreement.[facility] [id number] Note CONSULTATION CONSULTATION DATE: 03/25/2022 CHIEF COMPLAINT: 1. Low back pain. 2. Left knee pain. HISTORY OF PRESENT ILLNESS: This is a very pleasant, 76-year-old male, who is known to the pain practice remote. The patient had a right total knee replacement at [facility]. The patient is doing well [...] patient understands and would like to proceed.[facility] 01-27-2022 NoteHNO ID: [id number] Author: Jus Bray MD Service: ? Author Type: Physician Type: Progress Notes Filed: 02/05/2022 3:02 PM Note Text: SHIRA Lizzy Yee is a 76 year old [...] Follow up anytime as needed. Jus Bray, [facility]07-11-2022 Nurse Note* Sarah Osman MA - [...] No Drains: No documented in this encounterMercy Health [facility]07-11-2022 History of Present illness Narrative* Jus [...] Jus Bray MD documented in this encounterMercy Health [facility]03-25-2022 Miscellaneous Notes* Telephone Encounter - Shan Parham - 10/11/2021 3:09 PM EDTSummary: IRB#: [id number] Research Outreach IRB# [id number], Qualitative Interviews in Postoperative Gastrointestinal Dysfunction (POGD). PI: Shilpa Storm MD, SANJIV, FASA. Outcomes Research Department. Anesthesia [place]. This is a research study note. Patient [...] there for his review. Shan Parham Research [employer] Anesthesiology [place] Outcomes Research Department documented in this encounterMercy Health [facility]03-24-2022 History of Present illness Narrative* Jay Mora MD - 10/10/2021 1:37 PM EDT [facility] Abdominal Core Health - Follow Up [...] the care that he received while at [place]. Objective: AAOx3, NAD Non-labored respirations on room [...] Mora MD 10/10/21, 1:37 PM General Surgery [facility] documented in this encounterMercy Health [facility]03-24-2022 History of Present illness Narrative* Jus Bray MD - 10/10/2021 11:00 AM EDT HPI Lizzy Yee is a 75 year old male here today for postop Open subtotal colectomy with stapled [id number] ileosigmoid anastomosis ventral herniorrhaphy with transversus abdominus [...] Jus Bray MD documented in this encounterMercy Health [facility]03-24-2022 Nurse Note* Elena Ferrell MA - 10/10/2021 10:45 AM EDT What is the reason for your visit today? Follow up Who is your referring physician? Self Are you having poor oral intake? NO Have you had unintentional weight loss of 15 lbs/7 Kg in the last 3-6 months? NO Bowels: regular Wound: none Temperature: No Drains: No documented in this encounterMercy Health [facility]03-08-2022 History of Past illness Narrative* Problem Noted Date Resolved Date 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 documented as of this encounter (statuses as of 10/10/2021) [address]08-2022 History of Past illness Narrative* Problem Noted Date Resolved Date 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 documented as of this encounter (statuses as of 10/10/2021) [address]08-2022 History of Past illness Narrative* Problem Noted Date Resolved Date 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 documented as of this encounter (statuses as of 10/11/2021) [address]08-2022 History of Past illness Narrative* Problem Noted Date Resolved Date 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 documented as of this encounter (statuses as of 02/05/2022) [facility]03-08-[facility] History of Past illness Narrative* Problem Noted Date Resolved Date 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 documented as of this encounter (statuses as of 10/07/2022) [address]08-2022 History of Past illness Narrative* Problem Noted Date Resolved Date 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 documented as of this encounter (statuses as of 10/12/2022) [address]08-2022 History of Past illness Narrative* Problem Noted Date Resolved Date 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 documented as of this encounter (statuses as of 10/12/2022) [address]08-2022 History of Past illness Narrative* Problem Noted Date Resolved Date 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 documented as of this encounter (statuses as of 10/16/2022) [facility]06-12-2021 NoteMR#: [id number] [facility] Pt. Name: Lizzy Yee Admitted: 12/26/2020 Discharged: 12/29/2020 Date of : 1945 Physician: Ty Dumont M.D. DISCHARGE SUMMARY [facility] Pt. Name: Kurt Yee Admitted: 12/26/20 [...] CONDITION AT DISCHARGE: Stable DISPOSITION: Home with [facility] DISCHARGE INSTRUCTIONS: Take medications as prescribed, [...] Cano MD Date Trans: 12/29/2020 08:18 P/ BARRETT_JN:[id number] cc: Juancarlos Gan D.O. [address] [place] [id number] Township District Memorial HospitalEvaluation + Plan note No data available for this section [facility]* Diagnosis Ventral incisional hernia- Primary documented in this encounter [facility] note* Diagnosis Polyposis of colon- Primary Benign neoplasm of colon documented in this encounter [facility] note* Diagnosis Polyposis of colon- Primary Benign neoplasm of colon Incisional hernia, without obstruction or gangrene Incisional hernia without mention of obstruction or gangrene documented in this encounter [facility] noteNo InformationNort [employer] Other Evaluation note* Diagnosis Ventral incisional hernia [facility] Ventral incisional hernia- Primary documented in this encounter [facility] general Narrative - Reported* Type Description [...] RIGHT HEMICOLECTOMY 2003 Hospitalization History SEE SURGICAL [employer] Other [facility] general Narrative - Reported* Type Description Date [...] History Colonoscopy 12/2022 Hospitalization History SEE SURGICAL [email or web address] Other History general Narrative - Reported* Type [...] anaya 03/2023 Hospitalization History SEE SURGICAL HX [email or web address] Other Hospital Discharge instructions No data available for this section [facility] HospitalProgress note No data available for this section [facility] HospitalReason for referral (narrative)* Reason 10/09/22 Referral for carotid artery stenosis Diagnosis 1 Left carotid artery stenosis (I65.22) Referral Organization [facility] nemo Referring Provider First Name Juancarlos Referring Provider Last Name Bang Referring Provider Specialty Internal Me dicine Referred Organization [facility] Referred Provider Jyoti Mccurdy Referred Address [address], [place],[address] Referred Provider Specialty Vascular Ruslan kajal Referral Priority Routine Referral Appointment Date 2022-10-09 General Notes Mr. Hooper is being r eferred for carotid artery stenosis. He recently completed carotid artery US at [facility], which revealed 87% left carotid bulb stenosis. The ICA velocities are not elevated, which was suggested to be due to hemodynamically significant stenosis in the left bulb. Seema Jaquez 09/23/2022 01:11:23 PM >received today, attachments made, referral faxed Alize Fultont 09/29/2022 02:11:56 PM > Patient is scheduled on 10/09 at 10 a.m. at [facility] Clinical Notes Mr. Hooper is being r eferred for further evaluation and treatment of left carotid artery stenosis. He has multiple risk factors, including HTN, HLD, DM and PAD. He has no history of TIA or CVA. He denies diplopia, loss of vision, dysarthria, facial droop or unilateral extremity weakness. 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 Advance Directive(s) 09/24/2021 8:40 AM Advance Directive(s) 06/07/2021 10:19 AM Advance Directive(s) 05/15/2021 3:36 PM M ain Documents on File Type Date Recorded 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 Advance Directive(s) 09/24/2021 8:40 AM Advance Directive(s) 06/07/2021 10:19 AM Advance Directive(s) 05/15/2021 3:36 PM M ain Documents on File Type Date Recorded 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 Advance Directive(s) 09/24/2021 8:40 AM Documents on File Type Date Recorded 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 Advance Directive(s) 09/24/2021 8:40 AM Reason for Referral Specialty Diagnoses / Procedures Referred By Olegario gonsalves Referred To Contact CT IMAGING Diagnoses Ventral incisional hernia Procedures CT ABD/PEL WO IVCON CT ABD & PELVIS W/O CONTRAST Jay Mora MD [address] [place] [address] Ct Imaging Referral ID Status Reason Start Date Expiration Date Visits Requested Visits Authorized [id number] Pending Review Auto-Generat ed Referral 10/10/2022 11/09/2022 1 1 Referral ID Status Reason Start Date Expiration Date V isits Requested Visits Authorized [id number] Closed Auto-Generate d Referral 10/10/2022 11/09/2022 1 1 Specialty Diagnoses / Procedures Referred By Contdennis t Referred To Contact CT IMAGING Diagnoses Ventral incisional hernia Procedures CT ABD/PEL WO IVCON CT ABD & [place] [address] [place] [address] Ct Imaging Referral ID Status Reason Start Date Expiration Date Visits Requested Visits Authorized [id number] Pending Review Auto-Generat ed Referral 10/16/2022 11/15/2023 1 1 Additional Source Comments (unrecognized sect ion and content) No Status Records FoundNo Status Records FoundNo Status Records FoundNo Status Records FoundNo Status Records FoundNo Status Records FoundNo Status Records FoundNo Status Records Found INFORMATION SOURCE (unrecogn ized section and content) DATE CREATED AUTHOR 03/11/2021 [facility] DATE CREATED AUTHOR AUTHOR'S ORGANIZ ATION 10/13/2022 [facility] DATE CREATED AUTHOR AUTHOR'S ORGANIZ ATION 10/21/2022 [facility] DATE CREATED AUTHOR AUTHOR'S ORGANIZ ATION 12/29/2022 [facility] DATE CREATED AUTHOR AUTHOR'S ORGANIZ ATION 12/29/2022 [facility] DATE CREATED AUTHOR AUTHOR'S ORGANIZ ATION 04/26/2023 [facility] DATE CREATED AUTHOR AUTHOR'S ORGANIZ ATION 08/12/2023 [facility] DATE CREATED AUTHOR AUTHOR'S ORGANIZ ATION 08/28/2023 [facility] Source Comments (unrecognize d section and content) In the event this informatio n is protected by the Federal Confidentiality of Alcohol and Drug Abuse Patient Records regulations: The Federal rules restrict any use of the information to criminally investigate or prosecute any alcohol or drug abuse patient.[facility] HospitalIn the event this information is protected by the Federal Confidentiality of Alcohol and Drug Abuse Patient Records regulations: The Federal rules restrict any use of the information to criminally investigate or prosecute any alcohol or drug abuse patient.[facility] HospitalIn the event this information is protected by the Federal Confidentiality of Alcohol and Drug Abuse Patient Records regulations: The Federal rules restrict any use of the information to criminally investigate or prosecute any alcohol or drug abuse patient.[facility] HospitalIn the event this information is protected by the Federal Confidentiality of Alcohol and Drug Abuse Patient Records regulations: The Federal rules restrict any use of the information to criminally investigate or prosecute any alcohol or drug abuse patient.[facility] HospitalIn the event this information is protected by the Federal Confidentiality of Alcohol and Drug Abuse Patient Records regulations: The Federal rules restrict any use of the information to criminally investigate or prosecute any alcohol or drug abuse patient.[facility] HospitalIn the event this information is protected by the Federal Confidentiality of Alcohol and Drug Abuse Patient Records regulations: The Federal rules restrict any use of the information to criminally investigate or prosecute any alcohol or drug abuse patient.[facility] HospitalIn the event this information is protected by the Federal Confidentiality of Alcohol and Drug Abuse Patient Records regulations: The Federal rules restrict any use of the information to criminally investigate or prosecute any alcohol or drug abuse patient.[facility] HospitalIn the event this information is protected by the Federal Confidentiality of Alcohol and Drug Abuse Patient Records regulations: The Federal rules restrict any use of the information to criminally investigate or prosecute any alcohol or drug abuse patient.[facility] Reason for Visit (unrecogniz ed section and content) Reason Comments Follow Up Reason Comments Follow Up Reason Onset Date Comments Research 10/11/2021 Reason Comments Established Patient Follow-Up Reason Comments Patient Question Specialty Diagnoses / Procedures Referred By Contac t Referred To Contact CT IMAGING Diagnoses Ventral incisional hernia Procedures CT ABD/PEL WO IVCON CT ABD & [place] [address] [place] [address] Ct Imaging Referral ID Status Reason Start Date Expiration Date V isits Requested Visits Authorized [id number] Closed Auto-Generate d Referral 10/10/2022 11/09/2022 1 1 Reason Comments Follow Up 1 year, ventral inci sional hernia Care Teams (unrecognized sec tion and content) Ship Carpenter Relationship Specialty Start Date End Date Juancarlos Gan DO PCP - General Internal Medicine 10/23/14 Pedro Benavides [address] [place] [phone] Cardiology 09/13/21 Ship Carpenter Relationship Specialty Start Date End Date Juancarlos Gan DO PCP - General Internal Medicine 10/23/14 Pedro Benavides [address] [place] [phone] Cardiology 09/13/21 Ship Carpenter Relationship Specialty Start Date End Date Juancarlos Gan DO PCP - General Internal Medicine 10/23/14 Pedro Benavides [address] [place] [phone] Cardiology 09/13/21 Ship Carpenter Relationship Specialty Start Date End Date Juancarlos Gan DO PCP - General Internal Medicine 10/23/14 Pedro Benavides MD Cardiology 09/13/21 Ship Carpenter Relationship Specialty Start Date End Date Juancarlos Gan DO PCP - General Internal Medicine 10/23/14 Pedro Benavides MD Cardiology 09/13/21 Ship Carpenter Relationship Specialty Start Date End Date Juancarlos Gan DO PCP - General Internal Medicine 10/23/14 Pedro Benavides MD Cardiology 09/13/21 Ship Carpenter Relationship Specialty Start Date End Date Juancarlos Gan DO PCP - General Internal Medicine 10/23/14 Pedro Benavides MD Cardiology 09/13/21 Ship Carpenter Relationship Specialty Start Date End Date Juancarlos [...] BE BASED ON THE PRIMARY CLINICAL RECORDS. [facility] [employer] [facility] provides no warranty or guarantee of the accuracy or completeness of information in this document.
--- NOTE | 2023-09-02 10:18 | P.CN_ITS ---
Consult Note: HPI Data of Consult Patient: known to practice within the last 3 years Consult date: 07/27/23 Requesting Physician: Teri Fisher NP Primary Care Provider: Juancarlos Gan DO Consult Narrative Reason for consult: Left knee, low back pain Narrative: 77yom who presents for assessment. Notes worsening pain throughout left knee and low back. Previously underwent lumbar RFA in 07/10, which provided significant relief for >6 months of >50%. Continues in course of provider directed home exercises for >6 weeks >3x/week. Utilizes tylenol, cannot take NSAIDs due to blood thinner. Denies adverse med side effects. Recently underwent bilateral L4- 5 l5-S1 facet medial branch thermal RFA with no improvement at this time. Today pain 10/10 in low back worse with all activity, relieved with rest. Denies numbness, tingling, weakness. Patient has been sparingly utilizing baclofen 10mg HS PRN. No relief from tylenol. cc:: CC: Teri Fisher NP Review of Systems ROS Status of ROS 10 or more systems reviewed and unremark able except as noted in history and below Musculoskeletal Reports: back pain PFSH PFSH Medical History (Updated 07/27/23 @ 13:52 by Juanis Werner) History of shingles ?Z86.19 - Personal history of other infectious and parasitic diseases (ICD- 10) Osteoarthritis ?M19.90 - Unspecified osteoarthritis, unspecified site (ICD-10) Hiatal hernia ?K44.9 - Diaphragmatic hernia without obstruction or gangrene (ICD-10) Acid reflux ?K21.9 - Gastro-esophageal reflux disease without esophagitis (ICD-10) Carpal tunnel syndrome ?G56.00 - Carpal tunnel syndrome, unspecified upper limb (ICD-10) Hearing deficit ?H91.90 - Unspecified hearing loss, unspecified ear (ICD-10) High cholesterol ?E78.00 - Pure hypercholesterolemia, unspecified (ICD-10) Heart murmur ?R01.1 - Cardiac murmur, unspecified (ICD-10) Surgical History Hx of hernia repair ?Z98.890 - Other specified postprocedural states (ICD-10) ?Z87.19 - Personal history of other diseases of the digestive system (ICD-10) H/O total hip arthroplasty ?Z96.649 - Presence of unspecified artificial hip joint (ICD-10) H/O ventral hernia repair ?Z98.890 - Other specified postprocedural states (ICD-10) ?Z87.19 - Personal history of other diseases of the digestive system (ICD-10) Stented coronary artery ?Z95.5 - Presence of coronary angioplasty implant and graft (ICD-10) History of atherectomy ?Z98.890 - Other specified postprocedural states (ICD-10) H/O hemicolectomy ?Z90.49 - Acquired absence of other specified parts of digestive tract (ICD- 10) H/O cystoscopy ?Z98.890 - Other specified postprocedural states (ICD-10) S/P CABG x 4 ?Z95.1 - Presence of aortocoronary bypass graft (ICD-10) Meds Home Medications and Allergies Home Medications Medication Instructions Recorded Confirmed Type aspirin 81 mg tablet,delayed 81 mg PO DAILY 12/26/22 08/03/23 History release (Adult Aspirin Regimen) atorvastatin 80 mg tablet 80 mg PO DAILY 12/26/22 08/03/23 History calcium carbonate 500 mg-vitamin 1 tab PO DAILY 12/26/22 08/03/23 History D3 10 mcg (400 unit) tablet carvedilol 25 mg tablet 12.5 mg PO Q12H 12/26/22 08/03/23 History cholecalciferol (vitamin D3) 50 2,000 unit PO DAILY 12/26/22 08/03/23 History mcg (2,000 unit) tablet cinnamon bark 500 mg capsule 1,000 mg PO DAILY 12/26/22 08/03/23 History (Cinnamon) clopidogrel 75 mg tablet 75 mg PO DAILY 12/26/22 08/03/23 History glipizide 5 mg tablet 10 mg PO BID 12/26/22 08/03/23 History hydrochlorothiazide 25 mg tablet 25 mg PO DAILY 12/26/22 08/03/23 History lisinopril 20 mg tablet 30 mg PO DAILY 12/26/22 08/03/23 History multivitamin 1 tab PO DAILY 12/26/22 08/03/23 History omega-3 fatty acids 1,000 mg 1,000 mg PO DAILY 12/26/22 08/03/23 History capsule pantoprazole 40 mg tablet,delayed 40 mg PO QAM 12/26/22 08/03/23 History release vitamin B complex 1 tab PO DAILY 12/26/22 08/03/23 History zinc acetate 50 mg (zinc) capsule 50 mg PO DAILY 12/26/22 08/03/23 History ondansetron 4 mg disintegrating 4 mg PO Q8H PRN nausea and 05/03/23 08/03/23 Rx tablet vomiting 4 days #10 tabs amlodipine 5 mg tablet 5 mg PO QDAY 06/05/23 08/03/23 History hyoscyamine sulfate 0.125 mg 0.125 mg PO Q6H PRN abdominal pain 06/05/23 08/03/23 Rx tablet (Levsin) #12 tabs ondansetron 4 mg disintegrating 4 mg PO Q6H PRN nausea and 06/05/23 Rx tablet vomiting #12 tabs baclofen 10 mg tablet 10 mg PO BEDTIME PRN muscle spasm 08/03/23 08/03/23 Hist ory diazepam 10 mg tablet (Valium) 10 mg PO ONCE PRN sedation 08/03/23 08/03/23 History Allergies Allergy/AdvReac Type Severity Reaction Status Date / Time No Known Drug Allergies Allergy Verified 08/03/23 08:16 Exam Narrative Exam Narrative: Psych-alert and oriented x 3. Attentive and appropriate, constitutionally normal, displays normal mood and affect per situation.? There are no obvious deficits in memory, reasoning, or intellect.? Skin-no obvious rashes, bruising, erythema noted to the patient's area of pain. Extremities- extremities are warm with minimal edema and palpable pulses. Lumbar-no significant tenderness to palpation noted in the lumbar spine and par aspinal musculature.? Pain is elicited with extension, and lateral rotation of the lumbar spine. Range of motion is slightly diminished with these motions due to pain. Facet loading maneuvers are positive bilaterally and do appear to be concordant with the patient's normal complaints of pain.? Some swelling is noted without erythema. Pain is elicited with flexion and extension of the knee both actively and passively.? Some grinding is noted with these motions.? There is no notable ligamental laxity or instability.? Coordination remains intact.? Gait remains non-antalgic. Constitutional Documenting provider has reviewed patient's vital signs: yes Common normals: no apparent distress, oriented x3, healthy appearing, alert and well nourished General appearance: cooperative HENTN Common normals: normocephalic, hearing grossly normal bilaterally and moist oral mucous membranes Head and scalp: normocephalic Eye Common normals: PERRL Pupil: PERRL Neck & C-Spine Common normals: full ROM General: normal visual inspection Chest Common normals: inspection of chest normal Respiratory Common normals: normal respiratory effort, no retractions and no use of accessory muscles Neuro Common normals: oriented x3, CN's II-XII intact bilaterally, moves all extremities, no focal motor deficits, no sensory deficits noted and deep tendon reflexes 2+ bilaterally Sensorium/orientation: alert Motor exam: strength 5/5 throughout and no movement abnormalities noted Psych Common normals: mental status grossly normal, thought process normal, cooperative, affect normal, speech normal and activity/motor behavior normal Speech: normal speech Thought process: normal thought process Results Additional Findings Additional findings: I have checked an [facility] report on this patient today and there are no aberrancies noted in the prescribing history.?? A drug screen was completed and reviewed within the last year, and if there has not been a drug screen completed we ordered one today to monitor higher risk, state monitored pain medication use. As part of providing excellent, safe, comprehensive care, the following was completed at our patient's visit: 1. A medication reconciliation and review to ensure accurate knowledge of current/active medications, including asking our patients to inform us about any [id number] medications or herbal remedies/nutritional supplements/alternative remedies. 2. A review to specifically ensure our patients have had annual screening for: elevated body mass index (BMI), tobacco use, screening for depression, and screening for unhealthy alcohol use. When screening is concerning, patients are provided with education and the specific recommendation to discuss the concerning health issue and treatment options with their primary care provider. Assessment and Plan Assessment and Plan (1) Lumbar spondylosis: (2) Muscle spasm: (3) Knee osteoarthritis: Assessment and Plan: >50% ongoing relief from recent durolane injection Qualifiers: Osteoarthritis type: primary Laterality: left Qualified Code(s): M17.12 - Unilateral primary osteoarthritis, left knee Plan Patient has failed to benefit from tylenol, baclofen, heat, ice, cannot take NSAIDs due to plavix. Risks vs benefits discussed, will start tramadol 50mg once daily PRN 7 tablets for 1 week trial to evaluate response to medication and functional improvement. Pain today 10/10 AILEEN 20% start TENS as requested by patient and , will order TENS today continue PRN baclofen 10mg f/u 3 weeks
== END 2023-09-02 09:48 | disposition home or self-care (01) ==
PROVIDERS: PCP Internal Medicine; Visit Provider Nurse Practitioner
DX: M47.816 Spondylosis without myelopathy or radiculopathy, lumbar region (principal); M62.838 Other muscle spasm; M17.12 Unilateral primary osteoarthritis, left knee
CPT/HCPCS: G0463

== ENCOUNTER 2023-09-23 13:06 | Outpatient (OUT) | payer MEDICARE, SELFPAY ==
--- NOTE | 2023-09-23 13:56 | P.CN_ITS ---
Consult Note: HPI Data of Consult Patient: known to practice within the last 3 years Consult date: 07/27/23 Requesting Physician: Teri Fisher NP Primary Care Provider: Juancarlos Gan, DO Consult Narrative Reason for consult: Left knee, low back pain Narrative: 77yom who presents for management of chronic low back and left knee pain. Today pain 3/10 in low back, increases to 4/10 with activity and walking. Pain improved with sitting. Patient reports moderate ongoing relief from past left knee injection. Patient denies numbness, tingling, weakness. Patient reporting significant improvement in low back pain, greater than 75% after bilateral L4-5 L5-S1 RFA. Patient finds benefit from baclofen 10mg PRN and ASA. cc:: CC: Teri Fisher NP Review of Systems ROS Status of ROS 10 or more systems reviewed and unremark able except as noted in history and below Musculoskeletal Reports: back pain and joint pain PFSH PFSH Medical History History of shingles ?Z86.19 - Personal history of other infectious and parasitic diseases (ICD- 10) Osteoarthritis ?M19.90 - Unspecified osteoarthritis, unspecified site (ICD-10) Hiatal hernia ?K44.9 - Diaphragmatic hernia without obstruction or gangrene (ICD-10) Acid reflux ?K21.9 - Gastro-esophageal reflux disease without esophagitis (ICD-10) Carpal tunnel syndrome ?G56.00 - Carpal tunnel syndrome, unspecified upper limb (ICD-10) Hearing deficit ?H91.90 - Unspecified hearing loss, unspecified ear (ICD-10) High cholesterol ?E78.00 - Pure hypercholesterolemia, unspecified (ICD-10) Heart murmur ?R01.1 - Cardiac murmur, unspecified (ICD-10) Surgical History Hx of hernia repair ?Z98.890 - Other specified postprocedural states (ICD-10) ?Z87.19 - Personal history of other diseases of the digestive system (ICD-10) H/O total hip arthroplasty ?Z96.649 - Presence of unspecified artificial hip joint (ICD-10) H/O ventral hernia repair ?Z98.890 - Other specified postprocedural states (ICD-10) ?Z87.19 - Personal history of other diseases of the digestive system (ICD-10) Stented coronary artery ?Z95.5 - Presence of coronary angioplasty implant and graft (ICD-10) History of atherectomy ?Z98.890 - Other specified postprocedural states (ICD-10) H/O hemicolectomy ?Z90.49 - Acquired absence of other specified parts of digestive tract (ICD- 10) H/O cystoscopy ?Z98.890 - Other specified postprocedural states (ICD-10) S/P CABG x 4 ?Z95.1 - Presence of aortocoronary bypass graft (ICD-10) Meds Home Medications and Allergies Home Medications Medication Instructions Recorded Confirmed Type aspirin 81 mg tablet,delayed 81 mg PO DAILY 12/26/22 08/03/23 History release (Adult Aspirin Regimen) atorvastatin 80 mg tablet 80 mg PO DAILY 12/26/22 08/03/23 History calcium carbonate 500 mg-vitamin 1 tab PO DAILY 12/26/22 08/03/23 History D3 10 mcg (400 unit) tablet carvedilol 25 mg tablet 12.5 mg PO Q12H 12/26/22 08/03/23 History cholecalciferol (vitamin D3) 50 2,000 unit PO DAILY 12/26/22 08/03/23 History mcg (2,000 unit) tablet cinnamon bark 500 mg capsule 1,000 mg PO DAILY 12/26/22 08/03/23 History (Cinnamon) clopidogrel 75 mg tablet 75 mg PO DAILY 12/26/22 08/03/23 History glipizide 5 mg tablet 10 mg PO BID 12/26/22 08/03/23 History hydrochlorothiazide 25 mg tablet 25 mg PO DAILY 12/26/22 08/03/23 History lisinopril 20 mg tablet 30 mg PO DAILY 12/26/22 08/03/23 History multivitamin 1 tab PO DAILY 12/26/22 08/03/23 History omega-3 fatty acids 1,000 mg 1,000 mg PO DAILY 12/26/22 08/03/23 History capsule pantoprazole 40 mg tablet,delayed 40 mg PO QAM 12/26/22 08/03/23 History release vitamin B complex 1 tab PO DAILY 12/26/22 08/03/23 History zinc acetate 50 mg (zinc) capsule 50 mg PO DAILY 12/26/22 08/03/23 History ondansetron 4 mg disintegrating 4 mg PO Q8H PRN nausea and 05/03/23 08/03/23 Rx tablet vomiting 4 days #10 tabs amlodipine 5 mg tablet 5 mg PO QDAY 06/05/23 08/03/23 History hyoscyamine sulfate 0.125 mg 0.125 mg PO Q6H PRN abdominal pain 06/05/23 08/03/23 Rx tablet (Levsin) #12 tabs ondansetron 4 mg disintegrating 4 mg PO Q6H PRN nausea and 06/05/23 Rx tablet vomiting #12 tabs baclofen 10 mg tablet 10 mg PO BEDTIME PRN muscle spasm 08/03/23 08/03/23 History diazepam 10 mg tablet (Valium) 10 mg PO ONCE PRN sedation 08/03/23 08/03/23 History tramadol 50 mg tablet 50 mg PO DAILY PRN pain #7 tabs 09/02/23 Rx Allergies Allergy/AdvReac Type Severity Reaction Status Date / Time No Known Drug Allergies Allergy Verified 08/03/23 08:16 Exam Narrative Exam Narrative: Psych-alert and oriented x 3. Attentive and appropriate, constitutionally normal, displays normal mood and affect per situation.? There are no obvious deficits in memory, reasoning, or intellect.? Skin-no obvious rashes, bruising, erythema noted to the patient's area of pain. Extremities- extremities are warm with minimal edema and palpable pulses. Lumbar-no significant tenderness to palpation noted in the lumbar spine and paraspinal musculature.? no pain with extension, and lateral rotation of the lumbar spine. Range of motion is slightly diminished with these motions due to pain. Facet loading maneuvers are positive bilaterally and do appear to be concordant with the patient's normal complaints of pain.? Some swelling is noted without erythema. Pain is elicited with flexion and extension of the knee both actively and passively.? Some grinding is noted with these motions.? There is no notable ligamental laxity or instability.? Coordination remains intact.? Gait remains non-antalgic. Constitutional Documenting provider has reviewed patient's vital signs: yes Common normals: no apparent distress, oriented x3, healthy appearing, alert and well nourished General appearance: cooperative HENWI Common normals: normocephalic, hearing grossly normal bilaterally and moist oral mucous membranes Head and scalp: normocephalic Eye Common normals: PERRL Pupil: PERRL Neck & C-Spine Common normals: full ROM General: normal visual inspection Chest Common normals: inspection of chest normal Respiratory Common normals: normal respiratory effort, no retractions and no use of accessory muscles Extremity Right lower extremity: knee joint (pain with medial and lateral stress testing, mild edema and crepitus ) Neuro Common normals: oriented x3, CN's II-XII intact bilaterally, moves all extremities, no focal motor deficits, no sensory deficits noted and deep tendon reflexes 2+ bilaterally Sensorium/orientation: alert Motor exam: strength 5/5 throughout and no movement abnormalities noted Psych Common normals: mental status grossly normal, thought process normal, cooperative, affect normal, speech normal and activity/motor behavior normal Speech: normal speech Thought process: normal thought process Results Additional Findings Additional findings: I have checked an [facility] report on this patient today and there are no aberrancies noted in the prescribing history.?? A drug screen was completed and reviewed within the last year, and if there has not been a drug screen completed we ordered one today to monitor higher risk, state monitored pain medication use. As part of providing excellent, safe, comprehensive care, the following was completed at our patient's visit: 1. A medication reconciliation and review to ensure accurate knowledge of current/active medications, including asking our patients to inform us about any [id number] medications or herbal remedies/nutritional supplements/alternative remedies. 2. A review to specifically ensure our patients have had annual screening for: elevated body mass index (BMI), tobacco use, screening for depression, and screening for unhealthy alcohol use. When screening is concerning, patients are provided with education and the specific recommendation to discuss the concerning health issue and treatment options with their primary care provider. Assessment and Plan Assessment and Plan (1) Lumbar spondylosis: (2) Knee osteoarthritis: Qualifiers: Osteoarthritis type: primary Laterality: left Qualified Code(s): M17.12 - Unilateral primary osteoarthritis, left knee (3) Muscle spasm: Plan continue baclofen 10mg BID-TID PRN myofascial pain f/u 6 months, sooner if needed
== END 2023-09-23 13:07 | disposition home or self-care (01) ==
LOC: PM 13:07
PROVIDERS: PCP Internal Medicine; Visit Provider Nurse Practitioner
DX: M47.816 Spondylosis without myelopathy or radiculopathy, lumbar region (principal); M17.12 Unilateral primary osteoarthritis, left knee; M62.838 Other muscle spasm
CPT/HCPCS: G0463

== ENCOUNTER 2023-10-09 07:34 | Outpatient (OUT) | payer MEDICARE, SELFPAY ==
--- OUTSIDE RECORDS SUMMARY | 2023-10-09 07:37 | XMS_ITS | CCD ---
Author Organization [facility] Care Team Providers Care Sql Database Developer Name Role Phone JUANCARLOS CUENCA Referring Unavailable JUANCARLOS CUENCA Primary Care Unavailable Delonte Webb Admitting Unavailable Delonte Webb Attending Unavailable JUANCARLOS CUENCA Referring Unavailable TY AVALOS Surgeon Unavailable TY AVALOS Admitting Unavailable JUANCARLOS CUENCA Primary Care Unavailable TY AVALOS Attending Unavailable NM Procedure Practitioner Unavailab Juancarlos Delatorre DO Primary Care Provider Pedro Richardsonmed Unavailable [phone] Dylan VANESSA, [facility] Ahmed Unavailable JUANCARLOS CUENCA Primary Care Physician [phone] Juancarlos Cuenca Unavailable Juancarlos Cuenca DO Primary Care Provider Dylan VANESSA, [facility] Ahmed Unavailable [phone] JAY GONZALEZ Referring Unavailable JUANCARLOS CUENCA Primary Care Unavailable JAY GONZALEZ Referring Unavailable JUANCARLOS CUENCA Primary Care Unavailable JAY GONZALEZ Attending Unavailable JUANCARLOS CUENCA Primary Care Unavailable JUS BRAY Referring Unavailable JUS BRAY Attending Unavailable JUANCARLOS CUENCA Primary Care Unavailable ADAMS ., DR EVAN Mcleod Admitting Unavailable LAMAS ., DR EVAN Mcleod Consulting Unavailable BANG, DR VEGA Primary Care Unavailable LAMAS ., DR EVAN Mcleod Attending Unavailable LAKSHMIPATHY ., RAINA Attending Janki vailable LAKSHMIPATHKathy ., RAINA Admitting Janki vailable LAKBONIFACIOMIPATHKathy ., RAINA Consulting Janki vailable BANG, DR VEGA Primary Care Unavailable BANG, DR VEGA Primary Care Unavailable BANG, DR VEGA Attending Unavailable BANG, DR VEGA Admitting Unavailable BANG, DR VEGA Consulting Unavailable ABDIRAHMAN .MANAV Attending Unavailable BANG, DR VEGA Primary Care Unavailable HALEUGENIA .MANAV Admitting Unavailable ZIEBER, DR GABY Patel Consulting [...] DR EVAN Mcleod Consulting Unavailable LAKSHMIPATHY ., NARJODY Admitting Janki vailable HALKER ., MANAV Consulting [...] Attending Unavailable LAMAS ., DR EVAN Mcleod Consulting Unavailable BANG, DR VEGA Primary Care Unavailable BANG, DR VEGA Attending Unavailable BANG, DR VEGA Consulting Unavailable BAGN, DR VEGA Admitting Unavailable RANDY, DR GABY Patel Consulting Unavailable ADAMS ., DR EVAN Mcleod Admitting Unavailable ADAMS ., DR EVAN Mcleod Consulting Unavailable BANG, DR VEGA Primary Care Unavailable ADAMS ., DR EVAN Mcleod Attending Unavailable LELA HUGHES Consulting Unavailable NILLNya Attending Unavailable NILL, Nya Paetl Attending Unavailable NILL, Nya Patel Attending Unavailable MARINO MOE Attending Unavailable PEDRO RICHARDSON Attending Unavailable Mauro VANESSA, Hanh Chiang Attending Unavailable Mauro VANESSA, Hanh Chiang Attending Unavailable Nirmala James Unavailable Juancarlos Cuenca Attending Unavailable Bang, Juancarlos Primary Care Unavailable Bang, Juancarlos Admitting Unavailable ANGELA BINGHAM Attending Unavailable Allergies Allergy Classification Reported Allergen(s) Allergy Type Date of Onset Reaction(s) Facility (20 sources) Morphine; Translations: [morphine] Drug Allergy Unknown [facility] Repository (1 source) Morphine Drug Allergy 06-05-2023 [facility] [place] [facility] Repository Medications Current Medications Medication Drug Class(es) [...] aily. CPAP (8 sources) CPAP daily at [facility]. 0 Active Comment on above: daily [...] on above: Take 1 capsule by mo [facility] once daily. Vitamin B Complex [...] Coronary arteriosclerosis; Translations: [Atherosclerotic heart disease of [place] coronary artery without angina pectoris] Onset: 05-19-2022 [...] aftercare (8 sources) 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; Translations: [care home (current) use of antithrombotics/antip latelets] 09-13-2021 Episodic [...] and visceral atherosclerosis (19 sources) [address] [place] arteries of extremities with rest pain, right [...] without hemorrhage] Other aftercare (3 sources) Other [facility] (current) drug therapy; Translations: [OTH PENITENTIARY CURRENT DRUG THERAPY] Onset: 09-17-2022 Episodic Other and unspecified benign neoplasm (11 sources) Polyp of colon; Translations: [Polyp of colon] Onset: 06-07-2021 06-07-2021 Episodic Unclassified (1 source) LOW BACK PAIN, UNSPECIFIED; Translations: [LOW BACK PAIN, UNSPECIFIED] Onset: 04-24-2022 Results Test Name Value Interpretation Reference Range Facility Office Visiton 04-22-2023 Follow-up visit [id number] Vu Yee 1945 M Date Provider Department Center 04/22/2023 Flores-PEDRO RICHARDSON SONIA Michael Family History Problem Relation Age of Onset Coronary artery disease Mother Coronary artery disease Brother Family Status - Relation Status Age at Mother Brother Level of Service:66671 NM OFFICE/OUTPATIENT ESTABLISHED LOW MDM 20-29 MIN Normal [facility] Outside Colonoscopyon 2022 Outside Colonoscopy [id number] 0CD:127 Normal [facility] Reminderson 12-18-2022 Reminders - From: Amy Menon LPN To: N - Clinical; Sent: 12/18/2022 12:06:16 EDT Show up: 11/16/2025 07:00:00 EDT Subject: colonoscopy recall Due Date/Time: 12/17/2025 07:00:00 EDT Reminder/Recall Patient due for surveillance colonoscopy 12/17/2025. Normal [facility] POINT OF CARE GLUCOSEon 11-19 Glucose [Mass/Vol] 176 mg/dL Critically high 74-106 [facility] Comment on above: Performed By: #### P OCGLUC #### [facility] [address] [address] [address] Rojelio Kingsley POINT OF CARE GLUCOSEon 11-19 Glucose [Mass/Vol] 157 mg/dL Critically high 74-106 [facility] Comment on above: Performed By: #### P OCGLUC #### [facility] [address] [address] [address] Rojelio Kingsley Consent for Procedure/Surger yon 12-03-2022 Consent for Procedure/Surgery [id number] 0CD:127 Normal [facility] Physician Referralon 023 Physician Referral [id number] 0CD:127 Normal [facility] General Surgery Office/Clini c Noteon 12-02-2022 [...] anastomosis and ventral hernia repair 09/2021 at [facility], they recommend yearly surveillance sigmoidoscopies; patient [...] 1 tab(s), (more content not included)... Normal [facility] Comment on above: Result Comment: Elec tronically Signed By: PELON VANESSA, Nya Nicholson\Date and Time Signed: 12/02/22 11:37 EDT POINT OF CARE GLUCOSEon 04-2 Glucose [Mass/Vol] 121 mg/dL Critically high 74-[address] [facility] Comment on above: Performed By: #### P OCGLUC #### [facility] [address] [address] [address] Rojelio Kingsley CNOVon 10-16-2022 CNOV Office Visit ([facility] ) LIZZY YEE ([id number]) 1945 M Date Time Provider Department 10/16/22 1:20 PM JAY GONZALEZ [facility] During your visit today, we recorded the [...] Jay Gonzalez MD 10/16/2022 3:05 PM Signed [facility] Abdominal [facility] - Follow Up Visit Assessment/Plan: [...] Gonzalez MD 10/16/22, 2:45 PM General Surgery [facility] Allergies As of Date: 10/16/2022 (No Known Allergies) Date Reviewed: 10/16/2022 Reviewed by: Destiny Zapata MA - Fully Assessed Reason for Visit: Follow Up [171] Cmt: 1 year, ventral incisional hernia Primary Visit Diagnosis:Ventral incisional hernia [K43.2] Order(s):CT ABD/PEL WO IVCON [[id number]] Order #: [id number] FUTURE enteric contrast (will be provided with [...] without long-t (more content not included)... [facility] HNO ID: [id number] Author: RT Marisa(R) Service: Radiology Author Type: [...] RT Marisa(R) October 11, 2022 10:[address] [facility] [address] ABD/PEL WO IVCONon 2022 CT ABD/PEL WO IVCON * * *Final Report* * * DATE OF EXAM: Oct 11 2022 10:30AM [facility] 0531 - CT ABD/PEL WO IVCON / [...] site. Lower thorax: Lower lungs are clear. Histologic Aide (topogram) images: Unremarkable. IMPRESSION: Midline fat-containing upper abdominal hernia. Belt Tender: PSCB Transcribe Date/Time: Oct 13 2022 7:57A Dictated by : YANICK RIVAS MD This examination was interpreted and the report reviewed and electronically signed by: YANICK RIVAS MD on Oct 13 2022 8:06AM EST [id number] [facility] 10-06-2022 [facility] Telephone ([facility]) LIZZY YEE ([id number]) 1945 M Date Time Provider Department 10/06/22 JAY GONZALEZ [facility] During your visit today, we recorded the following information about you: Anjelica Harsh 10/06/2022 3:09 PM Signed Pt's called he is going in for a CT scan on Thursday does he need to have a creatinine blood level, says he had one within the last month or so at a non cc facility. PH: [phone] Efrain Zamarripa RN 10/07/2022 10:43 AM Signed Returned call, went to voicemail. Left message that the CT has been ordered without contrast. Left office number for questions or concerns. Allergies As of Date: 10/06/2022 (No Known Allergies) Date Reviewed: 01/27/2022 Reviewed by: Sarah Osman MA - Fully Assessed Reason for Visit: Patient Question [3577] Prescriptions as of 10/07/2022 - lisinopril (ZESTRIL, [...] Status:Closed by EFRAIN ZAMARRIPA on 10/07/22 Normal [facility] Consent for Procedure/Surger yon 09-17-2022 Consent for Procedure/Surgery [id number] 0CD:127 Normal [facility] RAD - Ultrasound Reporton RAD - Ultrasound Report [id number] 0CD:127 Normal [facility] Ambulatory Visit Summaryon 0 09-16-2022 Ambulatory Visit Summary LIZZY YEE :1945 Visit Date:09/16/2022 Ambulatory Visit Instructions Your Diagnosis Personal history of colonic polyps Your Care Team Attending Physician - PELON VANESSA, Nay Patel Primary Care Physician - JUANCARLOS CUENCA [...] are no longer receiving treatment for. Hyperlipidemia Rajani [facility] Ambulatory Visit Summary LIZZY YEE :1945 Visit [...] no longer receiving treatment for. Hyperlipidemia Normal [facility] General Surgery Office/Clini c Noteon 09-16-2022 [...] anastomosis and ventral hernia repair 09/2021 at [facility]; requires yearly flexible sigmoidoscopy for surveillance. [...] Oral, Nathalie (more content not included)... Normal [facility] Comment on above: Result Comment: Elec tronically Signed By: PELON VANESSA, Nya Nicholson\Date and Time Signed: 09/16/22 11:17 EST Alanine Aminotransferaseon 0 - ALT [Catalytic activity/Vol] 30 U/L Normal 16-63 [employer] Other Comment on above: Performed By: #### B MP, ALT, LIPID #### [facility] [address] [address] [address] Rojelio Kingsley Basic Metabolic Panelon 08-21 Calcium [Mass/Vol] 9.4888389 mg/dL 8.5-10 .1 mg/dL [employer] Other CO2 [Moles/Vol] 25.41115626 mmol/L 21.0-3 2.0 mmol/L [employer] Other Creatinine [Mass/Vol] 1.08334013 mg/dL Critically high 0.70-1.30 mg/dL [employer] Other Potassium [Moles/Vol] 4.64993973 mmol/L 3 .5-5.1 mmol/L [employer] Other Urea nitrogen [Mass/Vol] 16.6983796 mg/dL 7.0-18.0 mg/dL [employer] Other Basic Metabolic Panel see note Nor Nitch Other Basic Metabolic Panel 141 mmol/L 136-14 5 mmol/L [employer] Other Basic Metabolic Panel 134 mg/dL Critically high 74-106 mg /dL [employer] Other Basic Metabolic Panel 51 mL/min/1.73m2 Critically low >=60 mL/min/1.73m 2 [employer] Other Basic Metabolic Panel >60 mL/min/1.73m2 > =60 mL/min/1.73m 2 [employer] Other Anion gap [Moles/Vol] 15.2 mmol/L [facility] [employer] Other Comment on above: Performed By: #### B MP, ALT, LIPID #### [facility] [address] [place] [address] Dr. Rojelio Kingsley Chloride [Moles/Vol] 105 mmol/L Normal 98-107 [facility] [employer] Other Comment on above: Performed By: #### B MP, ALT, LIPID #### [facility] [address] [place] [address] Dr. Rojelio Kingsley Urea nitrogen/Creatinine [Mass ratio] 11.8 mg/mg Normal [facility] [employer] Other Comment on above: Performed By: #### B MP, ALT, LIPID #### [facility] [address] [place] [address] Dr. Rojelio Kingsley CBC AUTO DIFFon 09-12-2022 BASO # 0.0 103/ul Normal 0.0-0.1 [facility] Comment on above: Performed By: #### C BC #### [facility] [address] [place] [address] Dr. Rojelio Kingsley Basophils/100 WBC (Bld) 0.4 % Normal 0.2-2.0 [facility] Comment on above: Performed By: #### C BC #### [facility] [address] [place] [address] Dr. Rojelio Kingsley EO # 0.3 103/ul Normal 0.0-0.7 [facility] Comment on above: Performed By: #### C BC #### [facility] [address] [place] [address] Dr. Rojelio Kingsley Eosinophils/100 WBC (Bld) 3.6 % Normal 0.9-7.0 [facility] Comment on above: Performed By: #### C BC #### [facility] [address] [place] [address] Dr. Rojelio Kingsley Erythrocyte distribution width (RBC) [Ratio] 14.1 % Normal 11.0-15.0 [facility] Comment on above: Performed By: #### C BC #### [facility] [address] [place] [address] Dr. Rojelio Kingsley Hematocrit (Bld) [Volume fraction] 40.1 % Critically low 42.0-54.0 [facility] Comment on above: Performed By: #### C BC #### [facility] [address] [place] [address] Dr. Rojelio Kingsley Hemoglobin (Bld) [Mass/Vol] 13.4 g/dL Critically low 14.0-18.0 [facility] Comment on above: Performed By: #### C BC #### [facility] [address] [place] [address] Dr. Rojelio Kingsley IG # 0.02 10e3/ul Normal 0.00-0.03 [facility] Comment on above: Performed By: #### C BC #### [facility] [address] [place] [address] Dr. Rojelio Kingsley IG % 0.2 % Normal 0.0-0.5 [facility] Comment on above: Performed By: #### C BC #### [facility] [address] [place] [address] Dr. Rojelio Kingsley LYMPH # 1.8 103/ul Normal 1.2-3.8 [facility] Comment on above: Performed By: #### C BC #### [facility] [address] [place] [address] Dr. Rojelio Kingsley Lymphocytes/100 WBC (Bld) 21.9 % Normal 20.5-60.0 [facility] Comment on above: Performed By: #### C BC #### [facility] [address] [place] [address] Dr. Rojelio Kingsley MANUAL DIFF REQ NO Normal [facility] Comment on above: Performed By: #### C BC #### [facility] [address] [place] [address] Dr. Rojelio Kingsley MCH (RBC) [Entitic mass] 30.6 pg Normal 25.9-34.0 [facility] Comment on above: Performed By: #### C BC #### [facility] [address] [place] [address] Dr. Rojelio Kingsley MCHC (RBC) [Mass/Vol] 33.4 g/dL Normal 29.9-35.2 [facility] Comment on above: Performed By: #### C BC #### [facility] [address] [place] [address] Dr. Rojelio Kingsley MCV (RBC) [Entitic vol] 91.6 fL Normal 80.0-94.0 [facility] Comment on above: Performed By: #### C BC #### [facility] [address] [place] [address] Dr. Rojelio Kingsley MONO # 0.8 103/ul Normal 0.3-0.8 [facility] Comment on above: Performed By: #### C BC #### [facility] [address] [place] [address] Dr. Rojelio Kingsley Monocytes/100 WBC (Bld) 9.3 % Normal 1.7-12.0 [facility] Comment on above: Performed By: #### C BC #### [facility] [address] [place] [address] Dr. Rojelio Kingsley NEUT # 5.4 103/ul Normal 1.4-6.5 [facility] Comment on above: Performed By: #### C BC #### [facility] [address] [place] [address] Dr. Rojelio Kingsley Neutrophils/100 WBC (Bld) 64.6 % Normal 43.0-75.0 [facility] Comment on above: Performed By: #### C BC #### [facility] [address] [place] [address] Dr. Rojelio Kingsley Platelet mean volume (Bld) [Entitic vol] 10.3 fL Normal 9.5-13.5 [facility] Comment on above: Performed By: #### C BC #### [facility] [address] [place] [address] Dr. Rojelio Kingsley PLT 214 103/ul Normal 150-450 [facility] Comment on above: Performed By: #### C BC #### [facility] [address] [address] [address] Rojelio Kingsley RBC 4.38 106/ul Critically low 4.70-6.10 [facility] Comment on above: Performed By: #### C BC #### [facility] [address] [address] [address] Rojelio Kingsley WBC 8.4 103/ul Normal 4.0-11.0 [facility] Comment on above: Performed By: #### C BC #### [facility] [address] [place] [address] Dr. Rojelio Kingsley GLYCOHEMOGLOBIN A1Con 2022 ADA RECOMMENDATION SEE BELOW Normal [facility] Comment on above: Result Comment: ADA RECOMMENDED LIMIT 4.0 - 6.0 ADA THERAPEUTIC TARGET < 7.0 ACTION SUGGESTED > 7.0 Performed By: #### P OCGLUC #### [facility] [address] [place] [address] Dr. Rojelio Kingsley Glucose [Mass/Vol] 169 mg/dL Normal [facility] Comment on above: Performed By: #### P OCGLUC #### [facility] [address] [place] [address] Dr. Rojelio Kingsley HbA1c (Bld) [Mass fraction] 7.5 % Critically high 4.5-6.2 [facility] Comment on above: Performed By: #### P OCGLUC #### [facility] [address] [place] [address] Dr. Rojelio Kingsley LIPID PROFILEon 09-12-2022 CHOL-HDL RATIO NORM SEE BELOW Normal [facility] Comment on above: Result Comment: 3.3 - 4.4 LOW RISK 4.4 - 7.1 AVERAGE RISK 7.1 - 11.0 MODERATE RISK >11.0 HIGH RISK Performed By: #### B MP, ALT, LIPID #### [facility] [address] [place] [address] Dr. Rojelio Kingsley Cholesterol in LDL [Mass/Vol] 31.2 mg/dL Normal [facility] Comment on above: Performed By: #### B MP, ALT, LIPID #### [facility] [address] [place] [address] Dr. Rojelio Kingsley HDL NORMAL > or = 60 mg/dl - LO W CARDIOVASCULAR RISK <40 mg/dl - HIGH CARDIOVASCULAR RISK Normal [facility] Comment on above: Performed By: #### B MP, ALT, LIPID #### [facility] [address], [place] [address] Dr. Rojelio Kingsley LDL CALC NORMAL SEE BELOW Normal [facility] Comment on above: Result Comment: <100 mg/dl OPTIMAL 100 - 129 mg/dl NEAR OR ABOVE OPTIMAL 130 - 159 mg/dl BORDERLINE HIGH 160 - 189 mg/dl HIGH >190 mg/dl VERY HIGH Performed By: #### B MP, ALT, LIPID #### [facility] [address] [address] [address] Rojelio Kingsley VLDL CALC 40.8 mg/dL Normal [facility] Comment on above: Performed By: #### B MP, ALT, LIPID #### [facility] [address] [address] [address] Rojelio Kingsley Lipid Panelon 09-12-2022 Lipid Panel > or = 60 mg/dl - LO W CARDIOVASCULAR RISK <40 mg/dl - HIGH CARDIOVASCULAR RISK [employer] Other Lipid Panel SEE BELOW [employer] Other Lipid Panel 31.2 mg/dL [employer] Other Lipid Panel 40.8 mg/dL [employer] Other Cholesterol [Mass/Vol] 115 mg/dL Normal <=200 [employer] Other Comment on above: Performed By: #### B MP, ALT, LIPID #### [facility] [address], [place] [address] Dr. Rojelio Kingsley Cholesterol in HDL [Mass/Vol] 43 mg/dL Normal 40-60 [employer] Other Comment on above: Performed By: #### B MP, ALT, LIPID #### [facility] [address], [place] [address] Dr. Rojelio Kingsley Cholesterol.total/Cho lesterol in HDL [Mass ratio] 2.7 {ratio} Normal [employer] Other Comment on above: Performed By: #### B MP, ALT, LIPID #### [facility] [address] [place] [address] Dr. Rojelio Kingsley Triglyceride [Mass/Vol] 204 mg/dL Critically high <=150 [employer] Other Comment on above: Performed By: #### B MP, ALT, LIPID #### [facility] [address] [address] [address] Rojelio Kingsley MICROALBUMIN, RAND URon - mALB 2.1 mg/L Normal <=30.0 [facility] Comment on above: Performed By: #### M ALBR #### [facility] [address] [place] [address] Dr. Rojelio Kingsley PROF CHEM 8 (BAS METB)on Calcium [Mass/Vol] 9.6 mg/dL Normal 8.5-10.1 [facility] Comment on above: Performed By: #### B MP, ALT, LIPID #### [facility] [address] [place] [address] Dr. Rojelio Kingsley CO2 [Moles/Vol] 25.1 mmol/L Normal 21.0-32.0 [facility] Comment on above: Performed By: #### B MP, ALT, LIPID #### [facility] [address] [place] [address] Dr. Rojelio Kingsley Creatinine [Mass/Vol] 1.36 mg/dL Critically high 0.70-1.30 [facility] Comment on above: Performed By: #### B MP, ALT, LIPID #### [facility] [address] [place] [address] Dr. Rojelio Kingsley EGFR-AF TURKISH >60 Normal >=60 [facility] [place] [facility] Comment on above: Performed By: #### B MP, ALT, LIPID #### [facility] [address] [place] [address] Dr. Rojelio Kingsley EGFR-NON AF TURKISH 51 mL/min/1.73m2 Critically low >=60 [facility] Comment on above: Performed By: #### B MP, ALT, LIPID #### [facility] [address] [address] [address] Rojelio Kingsley Glucose [Mass/Vol] 134 mg/dL Critically high 74-[address] [facility] Comment on above: Performed By: #### B MP, ALT, LIPID #### [facility] [address] [address] [address] Rojelio Kingsley Potassium [Moles/Vol] 4.3 mmol/L Normal 3.5-5.1 [facility] Comment on above: Performed By: #### B MP, ALT, LIPID #### [facility] [address] [address] [address] Rojelio Kingsley Sodium [Moles/Vol] 141 mmol/L Normal 136-145 [facility] Comment on above: Performed By: #### B MP, ALT, LIPID #### [facility] [address] [address] [address] Rojelio Kingsley Urea nitrogen [Mass/Vol] 16.0 mg/dL Normal 7.0-18.0 [facility] Comment on above: Performed By: #### B MP, ALT, LIPID #### [facility] [address] [address] [address] Rojelio Kingsley US CAROTID ART BILon [...] GABY PADILLA Date: 2022-09-12 15:22 Normal [facility] US CAROTID ART ZHENG [employer] Other Orders Onlyon 07-24-2022 Orders Only [id number] Vu Yee 1945 M Date Provider Department Center 07/24/2022 ZOFIA MARTINO [facility] Family History Problem Relation Age of Onset Coronary artery disease Mother Coronary artery disease Brother Family Status - Relation Status Age at Mother Brother Normal [facility] POINT OF CARE GLUCOSEon 06-19 Glucose [Mass/Vol] 106 mg/dL Normal 74-106 [facility] Comment on above: Performed By: #### P OCGLUC #### [facility] [address], [place] [address] Dr. Rojelio Kingsley Covid-19 PCR ([facility])on SARS-CoV-2 (COVID-19) RNA MITCHELL+probe Ql (Unsp spec) Not detected Normal NOT DETECTED [facility] Comment on above: Result Comment: This test is not yet approved or cleared by the [place] FDA. When there are no FDA-approved or cleared tests available, and other criteria are met, FDA can make tests available under an emergency access mechanism called an Emergency Use Authorization (EUA). The EUA for this test is supported by the [place] of Health and Human Service's (HHS's) declaration [...] SARS-CoV-2. Performed By: #### P OCGLUC #### [facility] [address], [place] [address] Dr. Rojelio Kingsley 29on 05-19-2022 29 Addended by: MARINO MOE on: 05/19/2022 03:14 PM Modules accepted: Level of Service Normal [facility] Follow-Upon 05-19-2022 Follow-Up [id number] Vu Yee 1945 M Date Provider Department Center 05/19/2022 MARINO GRAVES SONIA [facility] Family History Problem Relation Age of Onset Coronary artery disease Mother Coronary artery disease Brother Family Status - Relation Status Age at Mother Brother Level of Service:86949 NM OFFICE/OUTPATIENT ESTABLISHED LOW MDM 20-29 MIN Reason for Visit and Comments: Coronary Artery Disease [187] Hypertension [808260] Peripheral Vascular Disease [458] Normal [facility] POINT OF CARE GLUCOSEon 04-20 Glucose [Mass/Vol] 129 mg/dL Critically high 74-106 [facility] Comment on above: Performed By: #### P OCGLUC #### [facility] [address] [address] [address] Rojelio Kingsley POINT OF CARE GLUCOSEon 03-21 Glucose [Mass/Vol] 116 mg/dL Critically high 74-106 [facility] Comment on above: Performed By: #### P OCGLUC #### [facility] [address] [address] [address] Rojelio Kingsley XR LSPINE 2_3 VIEWSon [...] GABY PADILLA Date: 2022-03-05 13:06 Normal [facility] CBC AUTO DIFFon 02-22-2022 BASO # 0.0 103/ul Normal 0.0-0.1 [facility] Comment on above: Performed By: #### P OCGLUC #### [facility] [address] [address] [address] Rojelio Kingsley Basophils/100 WBC (Bld) 0.4 % Normal 0.2-2.0 [facility] Comment on above: Performed By: #### P OCGLUC #### [facility] [address] [address] [address] Rojelio Kingsley EO # 0.3 103/ul Normal 0.0-0.7 [facility] Comment on above: Performed By: #### P OCGLUC #### [facility] [address] [address] [address] Rojelio Kingsley Eosinophils/100 WBC (Bld) 3.0 % Normal 0.9-7.0 [facility] Comment on above: Performed By: #### P OCGLUC #### [facility] [address] [address] [address] Rojelio Kingsley Erythrocyte distribution width (RBC) [Ratio] 14.4 % Normal 11.0-15.0 [facility] Comment on above: Performed By: #### P OCGLUC #### [facility] [address] [address] [address] Rojelio Kingsley Hematocrit (Bld) [Volume fraction] 37.1 % Critically low 42.0-54.0 [facility] Comment on above: Performed By: #### P OCGLUC #### [facility] [address] [address] [address] Rojelio Kingsley Hemoglobin (Bld) [Mass/Vol] 12.2 g/dL Critically low 14.0-18.0 [facility] Comment on above: Performed By: #### P OCGLUC #### [facility] [address] [address] [address] Rojelio Kingsley IG # 0.03 10e3/ul Normal 0.00-0.03 [facility] Comment on above: Performed By: #### P OCGLUC #### [facility] [address] [address] [address] Rojelio Kingsley IG % 0.4 % Normal 0.0-0.5 [facility] Comment on above: Performed By: #### P OCGLUC #### [facility] [address] [address] [address] Rojelio Kingsley LYMPH # 1.8 103/ul Normal 1.2-3.8 [facility] Comment on above: Performed By: #### P OCGLUC #### [facility] [address] [address] [address] Rojelio Kingsley Lymphocytes/100 WBC (Bld) 21.6 % Normal 20.5-60.0 [facility] Comment on above: Performed By: #### P OCGLUC #### [facility] [address] [place] [address] Dr. Rojelio Kingsley MANUAL DIFF REQ NO Normal [facility] Comment on above: Performed By: #### P OCGLUC #### [facility] [address] [place] [address] Dr. Rojelio Kingsley MCH (RBC) [Entitic mass] 30.0 pg Normal 25.9-34.0 [facility] Comment on above: Performed By: #### P OCGLUC #### [facility] [address] [place] [address] Dr. Rojelio Kingsley MCHC (RBC) [Mass/Vol] 32.9 g/dL Normal 29.9-35.2 [facility] Comment on above: Performed By: #### P OCGLUC #### [facility] [address] [place] [address] Dr. Rojelio Kingsley MCV (RBC) [Entitic vol] 91.4 fL Normal 80.0-94.0 [facility] Comment on above: Performed By: #### P OCGLUC #### [facility] [address] [place] [address] Dr. Rojelio Kingsley MONO # 0.7 103/ul Normal 0.3-0.8 [facility] Comment on above: Performed By: #### P OCGLUC #### [facility] [address] [address] [address] Rojelio Kingsley Monocytes/100 WBC (Bld) 8.4 % Normal 1.7-12.0 [facility] Comment on above: Performed By: #### P OCGLUC #### [facility] [address] [address] [address] Rojelio Kingsley NEUT # 5.5 103/ul Normal 1.4-6.5 [facility] Comment on above: Performed By: #### P OCGLUC #### [facility] [address] [address] [address] Rojelio Kingsley Neutrophils/100 WBC (Bld) 66.2 % Normal 43.0-75.0 [facility] Comment on above: Performed By: #### P OCGLUC #### [facility] [address] [place] [address] Dr. Rojelio Kingsley Platelet mean volume (Bld) [Entitic vol] 10.3 fL Normal 9.5-13.5 [facility] Comment on above: Performed By: #### P OCGLUC #### [facility] [address] [address] [address] Rojelio Kingsley PLT 202 103/ul Normal 150-450 [facility] Comment on above: Performed By: #### P OCGLUC #### [facility] [address] [address] [address] Rojelio Kingsley RBC 4.06 106/ul Critically low 4.70-6.10 [facility] Comment on above: Performed By: #### P OCGLUC #### [facility] [address] [place] [address] Dr. Rojelio Kingsley WBC 8.3 103/ul Normal 4.0-11.0 [facility] Comment on above: Performed By: #### P OCGLUC #### [facility] [address] [address] [address] Rojelio Kingsley GLYCOHEMOGLOBIN A1Con 2021 ADA RECOMMENDATION SEE BELOW Normal [facility] Comment on above: Result Comment: ADA RECOMMENDED LIMIT 4.0 - 6.0 ADA THERAPEUTIC TARGET < 7.0 ACTION SUGGESTED > 7.0 Performed By: #### A 1C #### [facility] [address] [address] [address] Rojelio Kingsley Glucose [Mass/Vol] 151 mg/dL Normal [facility] Comment on above: Performed By: #### A 1C #### [facility] [address] [place], [place] [address] Dr. Rojelio Kingsley HbA1c (Bld) [Mass fraction] 6.9 % Critically high 4.5-6.2 [facility] Comment on above: Performed By: #### A 1C #### [facility] [address] [address] [address] Rojelio Kingsley Consultation Noteon 02-19-20 Consultation Note [id number] 0CD:[id number] Normal [facility] CNOVon 01-27-2022 [facility] Office Visit ([facility] ) LIZZY YEE ([id number]) 1945 M Date Time Provider Department 01/27/22 1:00 PM JUS BRAY [facility] During your visit today, we recorded [...] No Drains: No Referring Provider: JUS BRAY [[id number]] Allergies As of Date: 01/27/2022 (No Known Allergies) Date Reviewed: 01/27/2022 Reviewed by: Sarah sOman MA - Fully Assessed Reason for Visit: Established Patient Follow-Up [94860750] Primary Visit Diagnosis:Polyposis of colon [K63.5] Other [...] 3-6 mo (more content not included)... Normal [facility] KNEE RIGHT 3 VWSon KNEE RIGHT 3 S [facility] Department of Radiology [address] [place] [phone] ======== Patient Name: LIZZY YEE : 1945 Sex: M Age: Race: White Pt. Location: Patient Status: Ordered Date: 01/09/2021 1:10:00 PM Completed Date: 01/09/2021 01:11 PM Requesting Provider: TY AVALOS Attending Provider: Report Copy To: Signs & Symptoms: Z96.659 Presence of unspecified artificial knee joint I10 History: Comments: Exam: KNEE RIGHT 3 S ======== KNEE RIGHT 3 [facility] HISTORY: Knee replacement, follow-up. COMPARISON: 12/26/2020. IMPRESSION: 1. Redemonstrated total knee prosthesis, no hardware complication or acute abnormality. No significant joint effusion. Mild soft tissue swelling noted. Electronically signed: Mitul Banks. Transcribed by: [email or web address], User Resident: Electronically Signed by: MITUL BANKS @ 01/09/2021 08:47 PM Normal The [facility] POC GLUCOSE LABon 12-29-2020 Glucose [Mass/Vol] 194 mg/dL High 70-100 [facility] Comment on above: Performed By: #### 8 5499 #### [facility] [address] [place] [address], [place] Glucose [Mass/Vol] 125 mg/dL High 70-100 [facility] Comment on above: Performed By: #### 8 5499 #### [facility] [address] [place] [address], [place] POC GLUCOSE LABon 12-28-2020 Glucose [Mass/Vol] 197 mg/dL High 70-100 [facility] Comment on above: Performed By: #### 8 5499 #### [facility] [address] [place] [address], [place] Glucose [Mass/Vol] 177 mg/dL High 70-100 [facility] Comment on above: Performed By: #### 8 5499 #### [facility] [address] [place] [address], [place] Glucose [Mass/Vol] 215 mg/dL High 70-100 [facility] Comment on above: Performed By: #### 8 5499 #### [facility] [address] [place] [address], [place] Glucose [Mass/Vol] 152 mg/dL High 70-100 [facility] Comment on above: Performed By: #### 8 5499 #### [facility] [address] [place] [address], [place] BASIC METABOLIC PANELon 12-18 Calcium [Mass/Vol] 8.2 mg/dL Low 8.6-10.3 [facility] Comment on above: Order Comment: No: D o not add to previous draw Performed By: #### 8 5499 #### [facility] [address] [place] [address], [place] Chloride [Moles/Vol] 102 mmol/L Normal 98-107 The [facility] Comment on above: Order Comment: No: D o not add to previous draw Performed By: #### 8 5499 #### [facility] [address] [place] [address], [place] CO2 [Moles/Vol] 23 mmol/L Normal 21-[address] [facility] Comment on above: Order Comment: No: D o not add to previous draw Performed By: #### 8 5499 #### [facility] [address] [place] [address], [place] Creatinine [Mass/Vol] 0.97 mg/dL Normal 0.70-1.30 The [facility] Comment on above: Order Comment: No: D o not add to previous draw Performed By: #### 8 5499 #### [facility] [address] [place] [address], [place] GFR/1.73 sq M.predicted among blacks MDRD (S/P/Bld) [Vol rate/Area] mL/min/{1.73_m2} Normal >60 The [facility] Comment on above: Order Comment: No: D o not add to previous draw Result Comment: Calc ulation may not be valid for patients over 70 years Performed By: #### 8 5499 #### [facility] [address] [place] [address], [place] GFR/1.73 sq M.predicted among non-blacks MDRD (S/P/Bld) [Vol rate/Area] mL/min/{1.73_m2} Normal >60 [facility] Comment on above: Order Comment: No: D o not add to previous draw Result Comment: Calc ulation may not be valid for patients over 70 years Performed By: #### 8 5499 #### [facility] [address] [place] [address], [place] Glucose [Mass/Vol] 191 mg/dL High 70-100 [facility] Comment on above: Order Comment: No: D o not add to previous draw Performed By: #### 8 5499 #### [facility] [address] [place] [address], [facility] Potassium [Moles/Vol] 3.8 mmol/L Normal 3.5-5.1 The [facility] Comment on above: Order Comment: No: D o not add to previous draw Performed By: #### 8 5499 #### [facility] [address] [place] [address], [place] Sodium [Moles/Vol] 134 mmol/L Low 136-145 [facility] Comment on above: Order Comment: No: D o not add to previous draw Performed By: #### 8 5499 #### [facility] [address] [place] [address], [place] Urea nitrogen [Mass/Vol] 23 mg/dL Normal 7-25 The [facility] Comment on above: Order Comment: No: D o not add to previous draw Performed By: #### 8 5499 #### [facility] [address] [place] [address], [facility] CBC COMPLETE BLOOD COUNTon 0 12-27-2020 Erythrocyte distribution width (RBC) [Ratio] 13.3 % Normal 11.5-15.0 The [facility] Comment on above: Order Comment: No: D o not add to previous draw Performed By: #### 8 5499 #### [facility] [address] [place] [address], [facility] Hematocrit (Bld) [Volume fraction] 35.4 % Low 39.0-50.0 The [facility] Comment on above: Order Comment: No: D o not add to previous draw Performed By: #### 8 5499 #### [facility] [address] [place] [address], [facility] Hemoglobin (Bld) [Mass/Vol] 11.7 g/dL Low 13.0-17.0 The [facility] Comment on above: Order Comment: No: D o not add to previous draw Performed By: #### 8 5499 #### [facility] [address] [place] [address], [facility] MCH (RBC) [Entitic mass] 31.2 pg Normal 27.0-33.0 The [facility] Comment on above: Order Comment: No: D o not add to previous draw Performed By: #### 8 5499 #### [facility] [address] [place] [address], [facility] MCHC (RBC) [Mass/Vol] 33.1 g/dL Normal 32.0-35.0 The [facility] Comment on above: Order Comment: No: D o not add to previous draw Performed By: #### 8 5499 #### [facility] [address] [place] [address], [facility] MCV (RBC) [Entitic vol] 94.4 fL Normal 82.0-98.0 The [facility] Comment on above: Order Comment: No: D o not add to previous draw Performed By: #### 8 5499 #### [facility] [address] [place] [address], [facility] Nucleated RBC/100 WBC (Bld) [Ratio] 0 % Normal 0-0 The [facility] Comment on above: Order Comment: No: D o not add to previous draw Performed By: #### 8 5499 #### [facility] [address] [place] [address], [facility] PLAT CNT 177 10*3/uL Normal 150-[address] [facility] Comment on above: Order Comment: No: D o not add to previous draw Performed By: #### 8 5499 #### [facility] [address] [place] [address], [facility] RBC (Bld) [#/Vol] 3.75 10*6/uL Low 4.20-5.70 The [facility] Comment on above: Order Comment: No: D o not add to previous draw Performed By: #### 8 5499 #### [facility] [address] [place] [address], [facility] WBC (Bld) [#/Vol] 16.83 10*3/uL High 4.00-10.60 The [facility] Comment on above: Order Comment: No: D o not add to previous draw Performed By: #### 8 5499 #### [facility] [address] Operative Reporton Operative Report MR#: [id number] I [facility] Pt. Name: Lizzy Yee Room #: 6AB [id number] Discharge Date: Birthdate: 1945 OPERATIVE REPORT DATE [...] surgery. 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 The patient signed the consent form. Site was marked. We proceed with IV antibiotics in the form of 2 g of Ancef within an hour of the incision. PROCEDURE IN DETAIL: After written consent obtained, site was marked. The patient was [facility] and was seen by [...] futu (more content not included)... Normal The [facility] POC GLUCOSE LABon 12-27-2020 Glucose [Mass/Vol] 200 mg/dL High 70-100 [facility] Comment on above: Performed By: #### 8 5499 #### [facility] [address] [place] [address], [place] Glucose [Mass/Vol] 186 mg/dL High 70-100 [facility] Comment on above: Performed By: #### 8 5499 #### [facility] [address] [place] [address], [place] Glucose [Mass/Vol] 250 mg/dL High 70-100 [facility] Comment on above: Performed By: #### 8 5499 #### [facility] [address] [place] [address], [place] Glucose [Mass/Vol] 177 mg/dL High 70-100 [facility] Comment on above: Performed By: #### 8 5499 #### [facility] [address] [place] [address], [place] POC GLUCOSE LABon 12-26-2020 Glucose [Mass/Vol] 230 mg/dL High 70-100 [facility] Comment on above: Performed By: #### 8 5499 #### [facility] [address] [place] [address], [place] Glucose [Mass/Vol] 278 mg/dL High 70-100 [facility] Comment on above: Performed By: #### 8 5499 #### [address] [place] [address], [facility] Glucose [Mass/Vol] 174 mg/dL High 70-100 [facility] Comment on above: Performed By: #### 8 5499 #### [facility] [address] [facility] [place] [address], [place] Glucose [Mass/Vol] 146 mg/dL High 70-100 [facility] Comment on above: Performed By: #### 8 5499 #### [address] [place] [address], [facility] PORTABLE KNEE RIGHT 2 [facility] 12-26-2020 PORTABLE KNEE RIGHT 2 [facility] Department of Radiology [address] [place] [phone] ======== Patient Name: LIZZY YEE : 1945 Sex: M Age: Race: White Pt. Location: [place] [address] Patient Status: I Ordered Date: 12/26/2020 7:05:00 AM Completed Date: 12/26/2020 01:31 PM Requesting Provider: DANO CANO Attending Provider: HONG SCOTT Report Copy To: Signs & Symptoms: Post OP History: Comments: Hardware Evaluation, In PACU; Exam: PORTABLE KNEE RIGHT 2 [facility] ======== PORTABLE KNEE RIGHT 2 VWS 12/26/2020 [...] replacement. Electronically signed: José Thornton. Transcribed by: [email or web address], User Resident: JOSÉ THORNTON Electronically Signed by: JOSÉ THORNTON @ 12/26/2020 03:28 PM I personally read this/these film(s) with this resident Normal The [facility] Comment on above: Order Comment: Hardw are Evaluation, In PACU; HIP RIGHT 1 OR 2 VWS WITH PE LVISon 10-05-2020 HIP RIGHT 1 OR 2 VWS WITH PELVIS [facility] Department of Radiology [address] [place] [phone] ======== Patient Name: LIZZY YEE : 1945 Sex: M Age: Race: White Pt. Location: 84 Patient Status: O Ordered Date: 10/05/2020 11:05:00 [...] narrowing. Electronically signed: Mitul Banks. Transcribed by: [email or web address], User Resident: Electronically Signed by: MITUL BANKS @ 10/05/2020 01:08 PM Normal The [facility] Comment on above: Order Comment: Views (X-RAY, HIP): AP Pelvis, X-Table Lateral Hip , Weight Bearing?: Y KNEE LEFT 4VWSon 08-20-2020 KNEE LEFT 4VWS [facility] Department of Radiology [address] [place] [phone] ======== Patient Name: LIZZY YEE : 1945 Sex: M Age: Race: White Pt. Location: Patient Status: O Ordered Date: 08/20/2020 8:10:00 AM Completed Date: 08/20/2020 08:14 AM Requesting Provider: CEDRICK WILD Attending Provider: CEDRICK WILD Report Copy To: Signs & Symptoms: M25.569 Pain in unspecified knee I10 History: [place] Comments: Views (X-RAY, KNEE): AP, Lateral, Tunnel, [place] , Weight Bearing?: Y Exam: KNEE LEFT 4VWS ======== KNEE LEFT 4VWS 08/20/2020 8:14 AM CLINICAL INDICATIONS: M25.569 Pain in unspecified knee I10 TECHNOLOGIST COMMENTS: Patient states having bilateral knee pain. QUESTION FOR THE RADIOLOGIST: Views (X-RAY, KNEE): AP, Lateral, Tunnel, [place] , Weight Bearing?: Y PROTOCOL: AP,Lateral,Tunnel and [...] reports Electronically signed: Ej Francisco. Transcribed by: [email or web address], User Resident: TAMERA MARIE Electronically Signed by: EJ FRANCISCO @ 08/20/2020 08:41 AM I personally read this/these film(s) with this resident Normal The [facility] Comment on above: Order Comment: Views (X-RAY, KNEE): AP, Lateral, Tunnel, [place] , Weight Bearing?: Y KNEE RIGHT 4 [facility] 1 KNEE RIGHT 4 [facility] Department of Radiology [address] [place] [phone] ======== Patient Name: LIZZY YEE : 1945 Sex: M Age: Race: White Pt. Location: 84 Patient Status: O Ordered Date: 08/20/2020 8:10:00 AM Completed Date: 08/20/2020 08:14 AM Requesting Provider: CEDRICK WILD Attending Provider: CEDRICK WILD Report Copy To: Signs & Symptoms: M25.569 Pain in unspecified knee I10 History: [place] Comments: Views (X-RAY, KNEE): AP, Lateral, Tunnel, [place] , Weight Bearing?: Y Exam: KNEE RIGHT 4 [facility] ======== KNEE RIGHT 4 S 08/20/2020 8:14 AM SIGNS AND SYMPTOMS: M25.569 Pain in unspecified knee I10 TECHNOLOGIST COMMENTS: Patient states having bilateral knee pain. QUESTION FOR THE RADIOLOGIST: Views (X-RAY, KNEE): AP, Lateral, Tunnel, [place] , Weight Bearing?: Y PROTOCOL: AP,Lateral,Tunnel and [...] knee. Electronically signed: Ej Francisco. Transcribed by: [email or web address], User Resident: Electronically Signed by: EJ FRANCISCO @ 08/20/2020 08:30 AM Normal The [facility] Comment on above: Order Comment: Views (X-RAY, KNEE): AP, Lateral, Tunnel, [place] , Weight Bearing?: Y Vital Signs Date Time Vital Sign Value Performing Clinician Facility 06-05-2023 10:00-0500 Body height 165.1 cm Juancarlos Cuenca Other [facility] Other 06-05-2023 10:00-0500 Body mass index (BMI) [Ratio] 39.87 kg/m2 Juancarlos Ball Other [facility] Other 06-05-2023 10:00-0500 Body weight 108.68 kg Juancarlos Ball Other [facility] Other 06-05-2023 10:00-0500 Diastolic blood pressure 71 mm[Hg] Juancarlos Ball Other [facility] Other 06-05-2023 10:00-0500 Respiratory rate 20 /min Juancarlos Ball Other [facility] Other 06-05-2023 10:00-0500 Systolic blood pressure 118 mm[Hg] Juancarlos Ball Other [facility] Other 05-06-2023 13:45-0400 Body height 165.1 cm Juancarlos Ball Other [facility] Other 05-06-2023 13:45-0400 Body mass index (BMI) [Ratio] 39.97 kg/m2 Juancarlos Ball Other [facility] Other 05-06-2023 13:45-0400 Body weight 108.95 kg Juancarlos Ball Other [facility] Other 05-06-2023 13:45-0400 Diastolic blood pressure 87 mm[Hg] Juancarlos Ball Other [facility] Other 05-06-2023 13:45-0400 Respiratory rate 16 /min Juancarlos Ball Other [facility] Other 05-06-2023 13:45-0400 Systolic blood pressure 158 mm[Hg] Juancarlos Ball Other [facility] Other 03-10-2023 11:00-0400 Body height 165.1 cm Juancarlos Ball Other [facility] Other 03-10-2023 11:00-0400 Body mass index (BMI) [Ratio] 39.3 kg/m2 Juancarlos Ball Other [facility] Other 03-10-2023 11:00-0400 Body weight 107.14 kg Juancarlos Ball Other [facility] Other 03-10-2023 11:00-0400 Diastolic blood pressure 67 mm[Hg] Juancarlos Ball Other [facility] Other 03-10-2023 11:00-0400 Respiratory rate 16 /min Juancarlos Ball Other [facility] Other 03-10-2023 11:00-0400 Systolic blood pressure 120 mm[Hg] Juancarlos Ball Other [facility] Other 10-16-2022 13:12-0400 Body temperature 97.11 [degF] Jay Gonzalez MD Work Phone: [facility] 10-16-2022 13:12-0400 Diastolic blood pressure 66 mm[Hg] Jay Gonzalez MD Work Phone: [facility] 10-16-2022 13:12-0400 Heart rate 51 /min Jay Gonzalez MD Work Phone: [facility] 10-16-2022 13:12-0400 SaO2% (BldA) [Mass fraction] 96 % Jay Gonzalez MD Work Phone: [facility] 10-16-2022 13:12-0400 Systolic blood pressure 143 mm[Hg] Jay Gonzalez MD Work Phone: [facility] 09-08-2022 13:30-0500 Body height 165.1 cm Juancarlos Ball Other [facility] Other 09-08-2022 13:30-0500 Body mass index (BMI) [Ratio] 39.33 kg/m2 Juancarlos Ball Other [employer] Other 09-08-2022 13:30-0500 Body weight 107.23 kg Juancarlos Ball Other [employer] Other 09-08-2022 13:30-0500 Diastolic blood pressure 70 mm[Hg] Juancarlos Ball Other [employer] Other 09-08-2022 13:30-0500 Respiratory rate 20 /min Juancarlos Ball Other [employer] Other 09-08-2022 13:30-0500 Systolic blood pressure 112 mm[Hg] Juancarlos Ball Other [employer] Other 01-27-2022 13:20-0400 Body height 165.1 cm Jus Bray MD Work Phone: [facility] 01-27-2022 13:20-0400 Body temperature 96.91 [degF] Jus Bray MD Work Phone: [facility] 01-27-2022 13:20-0400 Body weight 104.33 kg Jus Bray MD Work Phone: [facility] 01-27-2022 13:20-0400 Diastolic blood pressure 56 mm[Hg] Jus Bray MD Work Phone: [facility] 01-27-2022 13:20-0400 Heart rate 50 /min Jus Bray MD Work Phone: [facility] 01-27-2022 13:20-0400 SaO2% (BldA) [Mass fraction] 98 % Jus Bray MD Work Phone: [facility] 01-27-2022 13:20-0400 Systolic blood pressure 131 mm[Hg] Jus Bray MD Work Phone: [facility] 10-10-2021 10:46-0400 Body height 165.1 cm Jay Gonzalez MD Work Phone: [facility] 10-10-2021 10:46-0400 Body weight 102.51 kg Jay Gonzalez MD Work Phone: [facility] 10-10-2021 10:46-0400 Diastolic blood pressure 65 mm[Hg] Jay Gonzalez MD Work Phone: [facility] 10-10-2021 10:46-0400 Heart rate 76 /min Jay Gonzalez MD Work Phone: [facility] 10-10-2021 10:46-0400 Systolic blood pressure 137 mm[Hg] Jay Gonzalez MD Work Phone: [facility] 10-10-2021 10:44-0400 Body height 165.1 cm Jus Bray MD Work Phone: [facility] 10-10-2021 10:44-0400 Body weight 102.51 kg Jus Bray MD Work Phone: [facility] 10-10-2021 10:44-0400 Diastolic blood pressure 65 mm[Hg] Jus Bray MD Work Phone: [facility] 10-10-2021 10:44-0400 Heart rate 76 /min Jus Bray MD Work Phone: [facility] 10-10-2021 10:44-0400 SaO2% (BldA) [Mass fraction] 98 % Jus Bray MD Work Phone: [facility] 10-10-2021 10:44-0400 Systolic blood pressure 137 mm[Hg] Jus Bray MD Work Phone: [facility] Encounters Encounter Date Encounter Type Care Provider Facility Start: 10-01-2023 End: 10-01-2023 ambulatory ANGELA BINGHAM Not Available Start: 08-10-2023 (RD) [employer] Nirmala James [facility] Start: 08-10-2023 End: 08-10-2023 ambulatory Juancarlos Cuenca [employer] Other Start: 08-03-2023 End: 08-04-2023 ambulatory Hanh Wade MD Facility:[facility] Start: 07-27-2023 End: 07-28-2023 ambulatory Hanh Wade MD Facility:[facility] Start: 06-17-2023 End: 06-17-2023 ambulatory Juancarlos Cuenca Other [employer] Other Start: 06-17-2023 Telephone encounter Juancarlos Ball [facility] Start: 06-16-2023 End: 06-16-2023 ambulatory Juancarlos Cuenca Other [employer] Other Start: 06-16-2023 Telephone encounter Juancarlos Ball [facility] Start: 06-09-2023 End: 06-09-2023 ambulatory Juancarlos Cuenca Other [employer] Other Start: 06-09-2023 Telephone encounter Juancarlos Ball [facility] Start: 06-08-2023 End: 06-08-2023 ambulatory Juancarlos Cuenca Other [employer] Other Start: 06-08-2023 Telephone encounter Juancarlos Ball [facility] Start: 06-07-2023 End: 06-07-2023 ambulatory Juancarlos Ball Other [employer] Other Start: 06-07-2023 Telephone encounter Juancarlos Ball [facility] Start: 06-05-2023 End: 06-05-2023 ambulatory Juancarlos Ball Other [employer] Other Start: 06-05-2023 Office outpatient vi sit 25 minutes Juancarlos Ball [facility] Start: 05-27-2023 End: 05-27-2023 ambulatory Juancarlos Ball Other [employer] Other Start: 05-27-2023 Telephone encounter Juancarlos Ball [facility] Start: 05-17-2023 End: 05-17-2023 ambulatory Juancarlos Ball Other [employer] Other Start: 05-17-2023 Telephone encounter Juancarlos Ball [facility] Start: 05-15-2023 End: 05-15-2023 ambulatory Juancarlos Ball Other [employer] Other Start: 05-15-2023 Telephone encounter Juancarlos Ball [facility] Start: 05-07-2023 End: 05-07-2023 ambulatory Juancarlos Ball Other [employer] Other Start: 05-07-2023 Telephone encounter Juancarlos Ball [facility] Start: 05-06-2023 End: 05-06-2023 ambulatory Juancarlos Ball Other [employer] Other Start: 05-06-2023 Office outpatient vi sit 25 minutes Juancarlos Ball [facility] Start: 05-06-2023 Telephone encounter Juancarlos Ball [facility] Start: 04-22-2023 End: 04-22-2023 ambulatory [facility] Start: 04-04-2023 End: 04-04-2023 ambulatory Juancarlos Ball Other [employer] Other Start: 04-04-2023 Telephone encounter Juancarlos Ball [facility] Start: 03-10-2023 End: 03-10-2023 ambulatory Juancarlos Ball Other [employer] Other Start: 03-10-2023 Office outpatient vi sit 25 minutes Juancarlos Ball [facility] Start: 12-24-2022 End: 12-24-2022 ambulatory Juancarlos Ball Other [employer] Other Start: 12-24-2022 Telephone encounter Juancarlos BELL [facility] Start: 12-17-2022 End: 12-18-[address] NYA BIRD . Facility:[facility] Start: 12-16-2022 End: 12-16-2022 ambulatory RAINA CRONINSHMIPATHKathy . Facility: Start: 12-02-2022 End: 12-03-2022 ambulatory Nya BIRD Facility: [facility] Start: 11-28-2022 End: 11-29-2022 ambulatory MANAV CIROEUGENIA . Facility:[facility] Start: 11-28-2022 End: 11-29-2022 ambulatory NARENDRANATH LAKSHMIPATHY . Facility: Start: 11-11-2022 End: 11-11-2022 ambulatory NARENDRANATH LAKSHMIPATHY . Facility: Start: 10-28-2022 End: 10-29-[address] EVAN LAMAS . 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] Start: 10-06-2022 Telephone encounter Jay patel MD Work Phone: General Surgery Comment on above: Patient Question Start: 09-16-2022 Telephone encounter Juancarlos BELL [facility] Start: 09-16-2022 End: 09-17-2022 ambulatory Nya BIRD [employer] Other Start: 09-16-2022 End: 09-27-2022 Pre-admission assessment Nya BIRD [facility] Start: 09-12-2022 Telephone encounter Juancarlos Cuenca RAY G Bang [facility] Start: 09-12-2022 End: 09-13-[address] JUANCARLOS CUENCA [facility] [employer] Other Start: 09-08-2022 End: 09-08-2022 ambulatory Juancarlos Cuenca Other [facility] [employer] Other Start: 09-08-2022 Patient encounter procedure Juancarlos Bang Cuenca [facility] Start: 07-31-2022 End: 08-01-[address] EVAN LAMAS . Facility:[facility] Start: 07-03-2022 Encounter for preprocedural laboratory examination DR EVAN LAMAS . [facility] Start: 07-01-2022 End: 07-01-[address] EVAN LAMAS . Facility:[facility] Start: 06-27-2022 End: 06-28-[address] EVAN LAMAS . Facility:[facility] Start: 06-27-2022 End: 06-28-2022 Encounter for preprocedural laboratory examination DR EVAN LAMAS . Facility:[facility] Start: 05-29-2022 End: 05-30-[address] EVAN LAMAS . Facility:[facility] Start: 05-19-2022 End: 05-19-2022 ambulatory [facility] Start: 05-13-2022 End: 05-13-[address] EVAN [...] 02-22-2022 End: 02-23-[address] JUANCARLOS CUENCA Facility: Start: 01-27-2022 End: 01-27-2022 ambulatory JUS BRAY Facility:[facility] Start: 01-27-2022 End: 01-27-2022 Patient encounter procedure Jus Bray MD Work Phone: Colorectal Surgery Comment on above: Polyposis of colon ( Primary Dx); Incisional hernia, without obstruction or gangrene Start: 10-11-2021 Telephone encounter Shilpa Storm MD Work Phone: [facility] Research Comment on above: Research Start: 10-10-2021 End: 10-10-2021 Patient encounter procedure Jay Gonzalez MD Work Phone: General Surgery Comment on above: Ventral incisional h ernia (Primary Dx) Polyposis of colon ( Primary Dx) Start: 12-26-2020 End: 12-29-2020 ambulatory JUANCARLOS CUENCA Facility:[facility] Start: 10-19-2020 End: 10-20-2020 ambulatory JUANCARLOS CUENCA Facility:[facility] Procedures Date Procedure Procedure Detail Performing Clinician Start: 10-04-2021 Partial resection of colon Nya BIRD Start: 10-04-2021 Repair of ventral hernia Nya BIRD Start: 04-08-2021 Colonoscopy Nya NI LL Comment on above: Transverse and desce nding colon polyps Start: 12-26-2020 ANESTH KNEE ARTHROPLASTY JUANCARLOS CUENCA Start: 12-26-2020 Arthrp kne condyle&p latu medial&lat compartments VITHAL SHENNAE Start: 12-26-2020 JOINT DEVICE (IMPLANTABLE) JUANCARLOS CUENCA Start: 11-17-2017 Colonoscopy Nya NI LL Comment on above: 2004 (2), 2005, 2007 , 2009, 2011, 05/2015, 11/2017 Start: 03-06-2016 Transurethral prostatectomy Nya BIRD Start: 02-18-2016 Cystoscopy Nya NI LL Start: 01-16-2016 Urodynamic studies [place] BIRD Start: 07-20-2012 Hernia repair Nya ROSARIO Start: 08-26-2007 Prosthetic arthropla sty of the hip Nya BIRD Start: 08-20-2007 Hernia of anterior abdominal wall (disorder) Nya BIRD Start: 04-19-2004 Transrectal biopsy o f prostate using ultrasound guidance Nya BIRD Atherectomy Nya BIRD Comment on above: with stent 2006 Bilateral vasectomy Nya SAVAGEL Decompression of med med nerve Nya BIRD Through knee amputation [place] SAVAGEL Plan of Treatment Date Care Activity Detail Author Start: 10-10-2022 End: 11-09-2022 Ct abdomen & pelvis w/o contrast material CT ABD/PEL WO IVCON Radiology Routine Ventral incisional hernia Expected: 10/10/2022, Expires: 11/09/2022 [facility] Work Phone: Comment on above: Expected: 10/10/2022 , Expires: 11/09/2022 Start: 07-20-2022 ADVANCE DIRECTIVE DISCUSSION ADVANCE DIRECTIVE DISCUSSION [facility] Start: 07-20-2022 DEPRESSION ASSESSMENT DEPRESSION ASS ESSMENT [facility] Start: 03-20-2022 Influenza vaccination INFLUENZA (#1) [facility] Start: 03-13-2022 Hemoglobin A1c/Hemoglobin.total in Blood HBA1C [facility] Start: 01-04-2022 COVID-19 VACCINE (5 - Booster for Pfizer series) COVID-19 VACCINE (5 - Booster for Pfizer series) [facility] Start: 07-20-2021 ADVANCE DIRECTIVE DISCUSSION ADVANCE DIRECTIVE DISCUSSION [facility] Start: 2009 PNEUMOVAX AGE 65 AND OVER WITH 5YR LOOKBACK (#1) PNEUMOVAX AGE 65 AND OVER WITH 5YR LOOKBACK (#1) [facility] Start: 1994 SHINGRIX VACCINE (1 of 2) SHINGRIX VACCINE (1 of 2) [facility] Start: 12-31-1963 Urine microalbumin profile DTAP,TDAP,TD (1 - Tdap) [facility] Start: 1962 ANNUAL PCP TEAM CRIMINAL INTELLIGENCE SPECIALIST MACY DISEASE VISIT ANNUAL PCP TEAM CHRONIC DISEASE VISIT [facility] Start: 1962 BP CONTROLLED (<130/80) BP CON TROLLED (<130/80) [facility] Start: 1962 Hepatitis B surface antibody level LDL CHOLESTEROL [facility] Start: 1962 HEPATITIS C SCREENING HEPATITIS C SC REENING [facility] Start: 1956 Adult depression screening assessment DEPRESSION SCREENING [facility] Start: 1954 3 comp foot exam completed DIABETIC FOOT EXAM [facility] Start: 1954 Hepatitis B screening URINE ALBUMIN:CREATININE RATIO [facility] Start: 1954 Hepatitis C antibody , confirmatory test DILATED RETINAL EXAM [facility] Start: 1950 PNEUMOCOCCAL: 65+ (1 - PCV) PNEUMOCOCCAL: 65+ (1 - PCV) [facility] End: 10-11-2022 Ct abdomen & pelvis w/o contrast material [facility] Work Phone: Comment on above: 1 Occurrences starti ng 10/11/2022 until 10/11/2022 End: 11-15-2023 Ct abdomen & pelvis w/o contrast material CT ABD/PEL WO IVCON Radiology Routine Ventral incisional hernia 1 Occurrences starting 10/16/2022 until 11/15/2023 [facility] Work Phone: Comment on above: 1 Occurrences starti ng 10/16/2022 until 11/15/2023 [facility] Immunizations Immunization Date Immunization Notes Care Provider Fa mirela 05-20-2022 influenza virus vaccine, unspecified formulation Nya BIRD [facility] 05-16-2022 influenza, high dose seasonal, preservative-free Juancarlos Cuenca Other [employer] Other 05-16-2022 influenza virus vaccine, split virus (incl. purified surface antigen) Juancarlos Cuenca Other [facility] [employer] Other 04-15-2022 SARS-CoV-2 (COVID-19 ) [id number] Nya NILL [facility] 11-09-2021 COVID-19 Vaccine Pfi zer - Documentation Purposes Only Juancarlos Cuenca Other [employer] Other 11-09-2021 SARS-CoV-2 mRNA (mrbjmjhuwus-zfkx-ydujz se) vaccine Nya NILL [facility] 04-19-2021 SARS-CoV-2 (COVID-19 ) mRNA BNT-162b2 vax Nya NILL [facility] Comment on above: Result Comment: 2022: [id number] 09-05-2020 SARS-CoV-2 (COVID-19 ) mRNA BNT-162b2 vax Nya SAVAGEL [facility] Comment on above: Result Comment: 2022: [id number] 08-15-2020 COVID-19 Vaccine Moderna - Documentation Purposes Only Juancarlos Cuenca Other [employer] Other 08-15-2020 SARS-CoV-2 (COVID-19 ) mRNA BNT-162b2 vax Nya SAVAGEL [facility] Comment on above: Result Comment: 2022: [id number] 03-28-2020 influenza virus vaccine, split virus (incl. purified surface antigen) Juancarlos Cuenca Other [employer] Other 05-17-2019 influenza virus vaccine, split virus (incl. purified surface antigen) Juancarlos Cuenca Other [employer] Other 05-13-2018 influenza virus vaccine, split virus (incl. purified surface antigen) Juancarlos Cuenca Other [employer] Other 04-25-2015 influenza virus vaccine, split virus (incl. purified surface antigen) Juancarlos Cuenca Other [employer] Other 04-25-2015 pneumococcal conjuga te vaccine, 13 valent Juancarlos Cuenca Other [employer] Other 04-19-2014 pneumococcal polysaccharide vaccine, 23 valent Juancarlos Cuenca Other [employer] Other 04-20-2013 tetanus and diphther ia toxoids, adsorbed, preservative free, for adult use (5 Lf of tetanus toxoid and 2 Lf of diphtheria toxoid) Juancarlos Cuenca Other [employer] Other 04-21-2012 pneumococcal polysaccharide vaccine, 23 valent Juancarlos Cuenca Other [employer] Other Payers Date Payer Category Payer Self-pay 2023 Unknown 2020 Private Health Insurance [facility] AARP SUPPLEMENT [id number] 2020-Present [phone] [address] [place] [address] Indemnity [id number] 2020 Private Health Insurance [facility] AARP SUPPLEMENT [id number] 2020-Present [phone] [address] [place] [address] Indemnity [id number] 2009 Medicare MEDICARE MEDICAR E A AND B [id number] 2009-Present [phone] [place] [address] Medicare [id number] 2009 Medicare [id number] 1959 Medicare [id number] 1959 Unknown [id number] 1944 Unknown [id number] 2.16.840.1.354527.3.579.2 .647 1944 Unknown [id number] 2.16.840.1.043135.3.579.2 .647 1944 Unknown [id number] 2.16.840.1.345476.3.579.2 .593 1944 Unknown [id number] 2.16.840.1.921284.3.579.2 .593 1944 Unknown [id number] 2.16.840.1.767586.3.579.2 .593 1944 Unknown [id number] 2.16.840.1.686992.3.579.2 .593 1944 Unknown [id number] 2.16.840.1.694603.3.579.2 .593 1944 Unknown [id number] 2.16.840.1.631304.3.579.2 .593 1944 Unknown [id number] 2.16.840.1.261641.3.579.2 .593 1944 Unknown [id number] 2.16.840.1.646766.3.579.2 .593 1944 Unknown [id number] 2.16.840.1.905124.3.579.2 .593 1944 Unknown [id number] 2.16.840.1.357255.3.579.2 .593 1944 Unknown [id number] 2.16.840.1.011684.3.579.2 .593 1944 Unknown [id number] 2.16.840.1.849819.3.579.2 .593 1944 Unknown [id number] 2.16.840.1.938590.3.579.2 .593 1944 Unknown [id number] 2.16.840.1.147875.3.579.2 .593 1944 Unknown [id number] 2.16.840.1.426193.3.579.2 .593 1944 Unknown [id number] 2.16.840.1.613848.3.579.2 .593 1944 Unknown [id number] 2.16.840.1.652519.3.579.2 .593 1944 Unknown [id number] 2.840.1.130093.3.579.2 .593 1944 Unknown [id number] 2.16.840.1.199582.3.579.2 .593 1944 Unknown [id number] 2..840.1.163068.3.579.2 .727 1944 Unknown [id number] 2.16.840.1.390456.3.579.2 .727 1944 Unknown [id number] 2.840.1.093283.3.579.2 .727 1944 Unknown [id number] 2.16.840.1.979369.3.579.2 .196 1944 Unknown [id number] 2.16.840.1.116817.3.579.2 .196 1944 Unknown [id number] 2.16.840.1.851503.3.579.2 .1259 Unknown [id number] Unknown [id number] 2.16840.1.034520.19 Unknown [id number] 2.16.840.1.297896.3.579.2 .531 Social History Date Type Detail Facility Start: 05-21-2021 End: 10-16-2022 Tobacco smoking status NHIS Ex-smoker [facility] End: 07-20-1994 History of tobacco use Current smoker [facility] End: 07-20-1994 History of tobacco use Cigar Smoker [facility] Start: 05-21-2021 End: 10-16-2022 Tobacco use and exposure Smokeless tobacco non-user [facility] Start: 10-10-2021 End: 10-16-2022 Alcohol intake Ex-drinker (finding) [facility] Start: 05-21-2021 End: 10-16-2022 Tobacco Comment Quit 15+ years [facility] Start: 1945 Sex Assigned At Not on file [facility] Start: 08-25-2021 End: 09-24-2021 Exposure to SARS-CoV-2 (event) Not sure [facility] Start: 09-16-2022 Tobacco smoking status Never s moked tobacco (finding) [facility] Tobacco smoking status Former sm okeless tobacco user, quit more than 30 days ago [facility] Sex Assigned At Male [facility] Medical Equipment Procedure Code Equipment Code Equipment Origin al Text Equipment Identifier Dates Mesh Parietene Polypropylene Macroporous [id number] Surgical Monofilament - [id number] Start: 09-24-2021 Clinical Notes 12-29-2020 to 08-10-2023 Note Date & Type Note Facility 08-10-2023 Evaluation note Encounter Date Diagnosis Assessment Notes Jul, Other Summary of Visit: (A) Meal timing (B) DM2 nutrition education (C) Answered general, nutrition-rela maru questions Socialize [facility] [employer] Other 11-28-2023 Evaluation note* Encounter Date Diagnosis Assessment Notes Treatment Notes Treatment Clinical Notes May, Type 2 diabetes mellitus with hyperglycemia, without long-term current use of insulin (ICD-10 - E11.65) [employer] Other 11-28-2023 Evaluation note* Encounter Date Diagnosis Assessment Notes Treatment Notes Treatment Clinical Notes May, Primary hypertension (ICD-10 - I10) [employer] Other 11-21-2023 Evaluation note* Encounter Date Diagnosis Assessment Notes Treatment Notes Treatment Clinical Notes May, Type 2 diabetes mellitus with hyperglycemia, without long-term current use of insulin (ICD-10 - E11.65) [employer] Other 11-17-2023 Evaluation note* Encounter Date Diagnosis [...] use, the patient reduces the risk for RI, CVA, HTN, cardiac dysrhythmias and sudden cardiac [...] index [BMI] 39.0-39.9, adult (ICD-10 - Z68.39) [employer] Other 11-08-2023 Evaluation note* Encounter Date Diagnosis Assessment Notes Treatment Notes Treatment Clinical Notes May, Primary hypertension (ICD-10 - I10) [employer] Other 10-29-2023 Evaluation note* Encounter Date Diagnosis Assessment Notes Treatment Notes Treatment Clinical Notes Apr, Type 2 diabetes mellitus with hyperglycemia, without long-term current use of insulin (ICD-10 - E11.65) Apr, Primary hypertension (ICD-10 - I10) [employer] Other 10-19-2023 Evaluation note* Encounter Date Diagnosis Assessment Notes Treatment Notes Treatment Clinical Notes Apr, Type 2 diabetes mellitus with hyperglycemia, without long-term current use of insulin (ICD-10 - E11.65) [employer] Other 10-18-2023 Evaluation note* Encounter Date Diagnosis Assessment Notes Treatment Notes Treatment Clinical Notes Apr, ASHD (arteriosclerotic heart disease) (ICD-10 - I25.10) This patient is stable without activity related CP, dyspnea or lightheadedness. They are instructed to continue exercise and AHA diet plan. Continue secondary prevention measures. [employer] suggesting SGLT-2 for dual benefit w/ ASHD [...] contributed. Monitor for now Apr, Atherosclerosis of [place] artery of right lower extremity with rest pain (ICD-10 - I70.221) Walk daily until painful. Inspect feet daily for cuts. Continue secondary prevention measures. Scheduled post op JAMIR [employer] Other 10-18-2023 Evaluation note* Encounter Date Diagnosis Assessment Notes Treatment Notes Treatment Clinical Notes Apr, Type 2 diabetes mellitus with hyperglycemia, without long-term current use of insulin (ICD-10 - E11.65) [employer] [facility] Chief Complaint: Patient here for 1 year follow up CAD, PVD, and hypertension. He underwent LE angiogram last month with Dr. Mccurdy of [facility]. He sees him [...] history of Coronary artery disease, Diabetes mellitus ([facility]), Hypertension, PVD (peripheral vascular disease) ([facility]), and Sleep apnea. Surgical History He has [...] common femoral artery. Surgeon: Jyoti Mccurdy Primary Balance Recesser: None. Anesthesia: Local with 1% lidocaine and sedation. EBL: 10 cc Complications: None. 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 Procedure: Patient was brought to the angiogram suite. He was placed on the table in supine position. Left groin area was prepped and draped in the usual sterile fashion. Patient was given (more content not included)...[facility]08-22-2023 Evaluation note* Encounter Date Diagnosis Assessment [...] use, the patient reduces the risk for RI, CVA, HTN, cardiac dysrhythmias and sudden cardiac [...] [BMI ] 39.0-39.9, adult (ICD-10 - Z68.39) [employer] Other 05-31-2023 NoteOPERATIVE NOTE OPERATION DATE: 11/29/2022 [...] be in three years. CC: Juancarlos Cuenca D.O.[facility] [id number] NotePROCEDURE: XR HIP LT 2 3V WO PELVIS HISTORY: Pain of left hip joint COMPARISON: None. FINDINGS: BONES:No fracture, acute abnormality, or significant arthropathy. SOFT TISSUES:No visible soft tissue swelling. EFFUSION:None visible. OTHER: Negative. IMPRESSION: 1. No acute bone abnormality. 2. Mild degenerative joint disease. Electronically authenticated by: GABY PADILLA Date: 2022-11-28 13:08[facility]04-11-2023 NoteCONSULTATION CONSULTATION DATE: 10/28/2022 TO: Juancarlos Cuenca [...] our patients to inform us about any bmlx-ymh-uxdgvia medications or herbal remedies/nutritional supplements/alternative remedies. 2. [...] treatment options with their primary care provider.[facility] [id number] NoteHNO ID: [id number] Author: Jay Gonzalez MD Service: ? Author Type: Physician Type: Progress Notes Filed: 10/16/2022 3:05 PM Note Text: [facility] - Follow [...] Gonzalez MD 10/16/22, 2:45 PM General Surgery [facility]03-30-2023 NoteHNO ID: [id number] Author: Destiny Zapata MA Service: ? Author Type: Miller Supervisor Type: Progress Notes Filed: 10/16/2022 3:05 PM Note Text: What is the reason for your visit today? Follow up 1 year Who is your referring physician? Are you having poor oral intake? NO Have you had unintentional weight loss of 15 lbs/7 Kg in the last 3-6 months? NO Bowels: regular Wound: Temperature: No Drains: [facility]03-30-2023 History of Present illness Narrative* Jay Gonzalez MD - 10/16/2022 2:38 PM EDT [facility] - Follow [...] Gonzalez MD 10/16/22, 2:45 PM [facility] [facility] * Destiny Zapata MA - 10/16/2022 1:09 PM EDT What is the reason for your visit today? Follow up 1 year Who is your referring physician? Are you having poor oral intake? NO Have you had unintentional weight loss of 15 lbs/7 Kg in the last 3-6 months? NO Bowels: regular Wound: Temperature: No Drains: No [facility] Miscellaneous Notes* Allied Health - RT [...] 11, 2022 10:29 AM documented in [facility] encounter[facility] Miscellaneous Notes* Telephone Encounter - Efrain [...] so at a non cc facility. PH: [phone] documented in this encounterU[facility] Evaluation note* Encounter Date Diagnosis Assessment Notes Treatment Notes Treatment Clinical Notes Aug, Left carotid artery stenosis (ICD-10 - I65.22) US: right <50%, left 50-69% - 10/2020 US: right <50%, left 80-90% - 08/2022 [employer] Other 02-20-2023 Evaluation note* Encounter Date Diagnosis [...] use, the patient reduces the risk for RI, CVA, HTN, cardiac dysrhythmias and sudden cardiac [...] reviewed and amended by provider signed below. [employer] Other 01-12-2023 NoteCONSULTATION PROCEDURE DATE: 09/18/2022 PREOPERATIVE [...] will be followed up in the office.[facility] [id number] NoteCONSULTATION CONSULTATION DATE: 07/31/2022 HISTORY OF PRESENT [...] and the patient agrees with this plan.[facility] 05-29-2022 NoteCONSULTATION CONSULTATION DATE: 05/29/2022 HISTORY OF [...] be followed up in the clinic thereafter.[facility] [id number] NotePatient here for 1 year follow up CAD, hypertension, and PVD. Had labs in September 2021 while at [facility] for colon surgery/hernia repair. He became hypotensive s/p surgery so his BP meds were adjusted. Denies chest pain and palpitations. Says his SOB with exertion remains unchanged. Review of Systems Cardiovascular: Positive for dyspnea on exertion. Musculoskeletal: Positive for arthritis, back pain, joint pain, muscle weakness and myalgias. Neurological: Positive for light-headedness and numbness.[facility]10-31-2022 NoteSUBJECTIVE Chief Complaint Patient presents with Coronary Artery Disease Hypertension Peripheral Vascular Disease Lizzy Yee is a 76 y.o. male here for follow-up. HPI Patient here for 1 year follow up CAD, hypertension, and PVD. Had labs in September 2021 while at [facility] for colon surgery/hernia repair. He became [...] position changes. HOSPITAL COURSE (from 09/2021 at [facility]): Mr Yee is a 75 year [...] Coronary artery disease PVD (peripheral vascular disease) ([facility]) Hx of CABG Past Medical History: Diagnosis Date Coronary artery disease Diabetes mellitus ([facility]) Hypertension PVD (peripheral vascular disease) ([facility]) Sleep apnea Family History Problem Relation Name [...] 0.4 mg by mo (more content not included)...[facility]10-06-2022 NoteCONSULTATION CONSULTATION DATE: 04/24/2022 This is [...] 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 A refill for Baclofen 10 mg [...] knee osteoarthritis. The patient is in agreement.The [facility] [id number] Note CONSULTATION CONSULTATION DATE: 03/25/2022 CHIEF COMPLAINT: 1. Low back pain. 2. Left knee pain. HISTORY OF PRESENT ILLNESS: This is a very pleasant, 76-year-old male, who is known to the pain practice remote. The patient had a right total knee replacement at [facility]. The patient is doing well [...] patient understands and would like to proceed.[facility] 01-27-2022 NoteHNO ID: [id number] Author: Jus Bray MD Service: ? Author [...] Follow up anytime as needed. Jus Bray, [facility]07-11-2022 Nurse Note* Sarah Osman MA - [...] Temperature: No Drains: No documented in this encounterU[facility]07-11-2022 History of Present illness Narrative* Jus [...] needed. Jus Bray MD documented in this encounterU[facility]03-25-2022 Miscellaneous Notes* Telephone Encounter - Shan Savagechristinemarin - 10/11/2021 3:09 PM EDTSummary: IRB#: [id number] Research Outreach IRB# [id number], Qualitative Interviews in Postoperative Gastrointestinal Dysfunction (POGD). PI: Shilpa Storm MD, SANJIV, FASA. Outcomes Research Department. [facility] [place]. This is a research study note. Patient [...] there for his review. Shan Parham Research Balance Recesser [facility] [place] Outcomes Research Department documented in this encounterU[facility]03-24-2022 History of Present illness Narrative* Jay Gonzalez MD - 10/10/2021 1:37 PM EDT [facility]dominal [facility] - Follow Up Visit Assessment/Plan: Lzizy Yee is a 75 year old male [...] the care that he received while at [facility]. Objective: AAOx3, NAD Non-labored respirations on room [...] Gonzalez MD 10/10/21, 1:37 PM General Surgery [facility] documented in this encounterU[facility]03-24-2022 History of Present illness Narrative* Jus Bray MD - 10/10/2021 11:00 AM EDT HPI Lizzy Yee is a 75 year old male here today for postop Open subtotal colectomy with stapled skms-ua-lymi ileosigmoid anastomosis ventral herniorrhaphy with transversus abdominus [...] months Jus Bray MD documented in this encounterU[facility]03-24-2022 Nurse Note* Elena Ferrell MA - 10/10/2021 10:45 AM EDT What is the reason for your visit today? Follow up Who is your referring physician? Self Are you having poor oral intake? NO Have you had unintentional weight loss of 15 lbs/7 Kg in the last 3-6 months? NO Bowels: regular Wound: none Temperature: No Drains: No documented in this encounterU[facility]03-08-2022 History of Past illness Narrative* Problem Noted Date Resolved Date 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 documented as of this encounter (statuses as of 10/10/2021) [address]08-2022 History of Past illness Narrative* Problem Noted Date Resolved Date 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 documented as of this encounter (statuses as of 10/10/2021) [facility] History of Past illness Narrative* Problem Noted Date Resolved Date 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 documented as of this encounter (statuses as of 10/11/2021) [address]08-2022 History of Past illness Narrative* Problem Noted Date Resolved Date 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 documented as of this encounter (statuses as of 02/05/2022) [facility] History of Past illness Narrative* Problem Noted Date Resolved Date 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 documented as of this encounter (statuses as of 10/07/2022) [address]08-2022 History of Past illness Narrative* Problem Noted Date Resolved Date 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 documented as of this encounter (statuses as of 10/12/2022) [address]08-2022 History of Past illness Narrative* Problem Noted Date Resolved Date 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 documented as of this encounter (statuses as of 10/12/2022) [facility] History of Past illness Narrative* Problem Noted Date Resolved Date 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 documented as of this encounter (statuses as of 10/16/2022) [facility]-12-[facility] NoteMR#: [id number] 2 [facility] Pt. Name: Lizzy Yee Admitted: 12/26/2020 Discharged: 12/29/2020 Date of : 1945 Physician: Ty Avalos M.D. DISCHARGE SUMMARY [facility] Pt. Name: Kurt Yee Admitted: 12/26/20 [...] CONDITION AT DISCHARGE: Stable DISPOSITION: Home with [facility] DISCHARGE INSTRUCTIONS: Take medications as prescribed, follow [...] Cano MD Date Trans: 12/29/2020 08:18 P/ BARRETT_JN:[id number] cc: Juancarlos Cuenca D.O. [address] [place] [id number] [facility] HospitalEvaluation + Plan note No data available for this section [facility]* Diagnosis Ventral incisional hernia- Primary [facility]* Diagnosis Polyposis of colon- Primary Benign neoplasm of colon documented in this encounter [facility] note* Diagnosis Polyposis of colon- Primary Benign neoplasm of colon Incisional hernia, without obstruction or gangrene Incisional hernia without mention of obstruction or gangrene documented in this encounter [facility] noteNo InformationNortTemple University Hospital [employer] Other Evaluation note* Diagnosis Ventral incisional hernia documented in this encounter [facility] note* Diagnosis Ventral incisional hernia- Primary documented in this encounter [facility] general Narrative - Reported* Type Description [...] HEMICOLECTOMY 2003 Hospitalization History SEE SURGICAL HX [place] Other [facility] general Narrative - Reported* Type Description Date [...] Colonoscopy 12/2022 Hospitalization History SEE SURGICAL HX [employer] Other History general Narrative - Reported* Type [...] anaya 03/2023 Hospitalization History SEE SURGICAL HX [employer] Other Hospital Discharge instructions No data available for this section [facility] No data available for this section [facility] HospitalReason for referral (narrative)* Reason 10/09/22 Referral for carotid artery stenosis Diagnosis 1 Left carotid artery stenosis (I65.22) Referral Organization [facility] nemo Referring Provider First Name Juancarlos Referring Provider Last Name Bang Referring Provider Specialty Internal Me dicine Ref[facility] Referred Provider Jyoti Mccurdy Referred Address [address], [place],[address] Referred Provider Specialty Vascular Ruslan kajal Referral Priority Routine Referral Appointment Date 2022-10-09 General Notes Mr. Hooper is being r eferred for carotid artery stenosis. He recently completed carotid artery US at [facility], which revealed 87% left carotid bulb stenosis. The ICA velocities are not elevated, which was suggested to be due to hemodynamically significant stenosis in the left bulb. Seema Jaquez 09/23/2022 01:11:23 PM >received today, attachments made, referral faxed Janae Fulton 09/29/2022 02:11:56 PM > Patient is scheduled on 10/09 at 10 a.m. at [facility] Clinical Notes Mr. Hooper is being r eferred for further evaluation and treatment of left carotid artery stenosis. He has multiple risk factors, including HTN, HLD, DM and PAD. He has no history of TIA or CVA. He denies diplopia, loss of vision, dysarthria, facial droop or unilateral extremity weakness. 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 Advance Directive(s) 09/24/2021 8:40 AM Advance Directive(s) 06/07/2021 10:19 AM Advance Directive(s) 05/15/2021 3:36 PM M ain Documents on File Type Date Recorded 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 Advance Directive(s) 09/24/2021 8:40 AM Advance Directive(s) 06/07/2021 10:19 AM Advance Directive(s) 05/15/2021 3:36 PM M ain Documents on File Type Date Recorded 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 Advance Directive(s) 09/24/2021 8:40 AM Documents on File Type Date Recorded 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 Advance Directive(s) 09/24/2021 8:40 AM Reason for Referral Specialty Diagnoses / Procedures Referred By Contac t Referred To Contact CT IMAGING Diagnoses Ventral incisional hernia Procedures CT ABD/PEL WO IVCON CT ABD & PELVIS W/O CONTRAST Jay Gonzalez MD [address] [place] [address] Ct Imaging Referral ID Status Reason Start Date Expiration Date Visits Requested Visits Authorized [id number] Pending Review Auto-Generat ed Referral 10/10/2022 11/09/2022 1 1 Referral ID Status Reason Start Date Expiration Date V isits Requested Visits Authorized [id number] Closed Auto-Generate d Referral 10/10/2022 11/09/2022 1 1 Specialty Diagnoses / Procedures Referred By Olegario gonsalves Referred To Contact CT IMAGING Diagnoses Ventral incisional hernia Procedures CT ABD/PEL WO IVCON CT ABD & [place] [address] [place] [address] Ct Imaging Referral ID Status Reason Start Date Expiration Date Visits Requested Visits Authorized [id number] Pending Review Auto-Generat ed Referral 10/16/2022 11/15/2023 1 1 Additional Source Comments (unrecognized sect ion and content) No Status Records FoundNo Status Records FoundNo Status Records FoundNo Status Records FoundNo Status Records FoundNo Status Records FoundNo Status Records FoundNo Status Records FoundNo Status Records Found INFORMATION SOURCE (unrecogn ized section and content) DATE CREATED AUTHOR 03/11/2021 [facility] DATE CREATED AUTHOR AUTHOR'S ORGANIZ ATION 10/13/2022 [facility] DATE CREATED AUTHOR AUTHOR'S ORGANIZ ATION 10/21/2022 [facility] DATE CREATED AUTHOR AUTHOR'S ORGANIZ ATION 12/29/2022 [facility] DATE CREATED AUTHOR AUTHOR'S ORGANIZ ATION 12/29/2022 [facility] DATE CREATED AUTHOR AUTHOR'S ORGANIZ ATION 04/26/2023 [facility] DATE CREATED AUTHOR AUTHOR'S ORGANIZ ATION 08/12/2023 [facility] DATE CREATED AUTHOR AUTHOR'S ORGANIZ ATION 08/28/2023 [facility] DATE CREATED AUTHOR AUTHOR'S ORGANIZ ATION 10/02/2023 [facility] EPIC Source Comments (unrecognize d section and content) In the event this informatio n is protected by the Federal Confidentiality of Alcohol and Drug Abuse Patient Records regulations: The Federal rules restrict any use of the information to criminally investigate or prosecute any alcohol or drug abuse patient.[facility] HospitalIn the event this information is protected by the Federal Confidentiality of Alcohol and Drug Abuse Patient Records regulations: The Federal rules restrict any use of the information to criminally investigate or prosecute any alcohol or drug abuse patient.[facility] HospitalIn the event this information is protected by the Federal Confidentiality of Alcohol and Drug Abuse Patient Records regulations: The Federal rules restrict any use of the information to criminally investigate or prosecute any alcohol or drug abuse patient.[facility] HospitalIn the event this information is protected by the Federal Confidentiality of Alcohol and Drug Abuse Patient Records regulations: The Federal rules restrict any use of the information to criminally investigate or prosecute any alcohol or drug abuse patient.[facility] HospitalIn the event this information is protected by the Federal Confidentiality of Alcohol and Drug Abuse Patient Records regulations: The Federal rules restrict any use of the information to criminally investigate or prosecute any alcohol or drug abuse patient.[facility] HospitalIn the event this information is protected by the Federal Confidentiality of Alcohol and Drug Abuse Patient Records regulations: The Federal rules restrict any use of the information to criminally investigate or prosecute any alcohol or drug abuse patient.[facility] HospitalIn the event this information is protected by the Federal Confidentiality of Alcohol and Drug Abuse Patient Records regulations: The Federal rules restrict any use of the information to criminally investigate or prosecute any alcohol or drug abuse patient.[facility] HospitalIn the event this information is protected by the Federal Confidentiality of Alcohol and Drug Abuse Patient Records regulations: The Federal rules restrict any use of the information to criminally investigate or prosecute any alcohol or drug abuse patient.[facility] Reason for Visit (unrecogniz ed section and content) Reason Comments Follow Up Reason Comments Follow Up Reason Onset Date Comments Research 10/11/2021 Reason Comments Established Patient Follow-Up Reason Comments Patient Question Specialty Diagnoses / Procedures Referred By Contac t Referred To Contact CT IMAGING Diagnoses Ventral incisional hernia Procedures CT ABD/PEL WO IVCON CT ABD & PELVIS W/O CONTRAST Jay Gonzalez MD [address] [place] [address] Ct Imaging Referral ID Status Reason Start Date Expiration Date V isits Requested Visits Authorized [id number] Closed Auto-Generate d Referral 10/10/2022 11/09/2022 1 1 Reason Comments Follow Up 1 year, ventral inci sional hernia Care Teams (unrecognized sec tion and content) Sql Database Developer Relationship Specialty Start Date End Date Juancarlos Cuenca DO PCP - General Internal Medicine 10/23/14 [facility] [address] [place] [phone] Cardiology 09/13/21 Sql Database Developer Relationship Specialty Start Date End Date Juancarlos Cuenca DO PCP - General Internal Medicine 10/23/14 [facility] [address] [place] [phone] Cardiology 09/13/21 Sql Database Developer Relationship Specialty Start Date End Date Juancarlos Cuenca DO PCP - General Internal Medicine 10/23/14 [facility] [address] [place] [phone] Cardiology 09/13/21 Sql Database Developer Relationship Specialty Start Date End Date Juancarlos Cuenca DO PCP - General Internal Medicine 10/23/14 Pedro Richardson MD Cardiology 09/13/21 Sql Database Developer Relationship Specialty Start Date End Date Juancarlos Cuenca, PCP - General Internal Medicine 10/23/14 Pedro Richardson MD Cardiology 09/13/21 Sql Database Developer Relationship Specialty Start Date End Date Juancarlos Cuenca DO PCP - General Internal Medicine 10/23/14 Pedro Richardson MD Cardiology 09/13/21 Sql Database Developer Relationship Specialty Start Date End Date Juancarlos Cuenca DO PCP - General Internal Medicine 10/23/14 Pedro Richardson MD Cardiology 09/13/21 Sql Database Developer Relationship Specialty Start Date End Date Juancarlos [...] BE BASED ON THE PRIMARY CLINICAL RECORDS. [facility] [employer] [facility]. provides no warranty or guarantee of the accuracy or completeness of information in this document.
[2023-10-09 08:14] LABS: Estimated Average Glucose 186 mg/dL; Glycohemoglobin A1C 8.1 % (4.5-6.2)
[2023-10-09 08:46] LABS: Alanine Aminotransferase 236 U/L (16-63); Albumin Globulin Ratio 0.9; Albumin Level 3.4 g/dL (3.4-5.0); Alkaline Phosphatase 210 U/L (46-116); Anion Gap 14.7; Aspartate Amino Transferase 169 U/L (15-37); BUN Creatinine Ratio 17.8; Bilirubin Total 0.8 mg/dL (0.2-1.0); Calcium 9.1 mg/dL (8.5-10.1); Carbon Dioxide 28.4 mmol/L (21.0-32.0); Chloride 101 mmol/L (98-107); Chol HDL Ratio 2.3; Cholesterol 107 mg/dL (<=200); Estimated GFR (African America >60 (>=60); Estimated GFR (Non-African Ame 54 (>=60); Globulin 3.9 g/dL; Glucose 100 mg/dL (74-106); HDL Cholesterol 46 mg/dL (40-60); LDL Cholesterol Calculated 46.6 mg/dL; Potassium 4.1 mmol/L (3.5-5.1); Sodium 140 mmol/L (136-145); Total Protein 7.3 g/dL (6.4-8.2); Triglycerides 72 mg/dL (<=150); VLDL CHOLESTEROL 14.4 mg/dL
[2023-10-09 08:50] LABS: Microalbumin Urine Random <1.3 mg/dL (<=30.0)
[2023-10-09 09:05] LABS: Prostate Specific Antigen Scrn 0.27 ng/mL (<=4.00)
== END 2023-10-09 07:35 | disposition home or self-care (01) ==
LOC: LAB 07:34
PROVIDERS: PCP Internal Medicine; Visit Provider Internal Medicine
DX: E11.65 Type 2 diabetes mellitus with hyperglycemia (principal); I10 Essential (primary) hypertension; I25.10 Atherosclerotic heart disease of native coronary artery without angina pectoris; E78.00 Pure hypercholesterolemia, unspecified; Z12.5 Encounter for screening for malignant neoplasm of prostate
CPT/HCPCS: 36415; 80053; 80061; 82043; 83036; G0103

== ENCOUNTER 2023-10-19 09:09 | Outpatient (OUT) | payer MEDICARE, SELFPAY ==
--- NOTE | 2023-10-19 09:18 | CT_ITS ---
[address] [address] Patient Name: LIZZY BURK MRN: [id number] date: 1945 Sex: M Assigned Patient Location: CT Current Patient Location: Accession/Order Number: [id number] Exam Date: 10/19/2023 11:17 Report Date: 10/19/2023 13:45 At the request of: NON-STAFF PHYSICIAN Procedure: CT abdomen pelvis wo con EXAMINATION: CT abdomen pelvis wo con HISTORY: ventral incisional hernia K43.2 COMPARISON: CT abdomen and pelvis 06/05/2023 TECHNIQUE: Axial, Coronal, and Sagittal images were obtained without and/or with IV contrast as indicated by examination type. Dose reduction techniques were achieved by using automated exposure control and/or adjustment of mA and/or kV according to patient size and/or use of iterative reconstruction technique. FINDINGS: LUNG BASES: No visible pulmonary or pleural disease. LIVER: No enlargement, atrophy, suspicious density, or significant focal lesion. BILIARY: No dilatation or calcification. PANCREAS: No lesion, fluid collection, or abnormal duct dilatation. SPLEEN: No enlargement or focal lesion. ADRENALS: No mass or enlargement. KIDNEYS: No mass, obstruction, or calcification. BOWEL/MESENTERY: Resection of majority of the colon with sigmoid-small bowel anastomosis. No visible mass, obstruction, or bowel wall thickening. AORTA/VASCULAR: No aneurysm or dissection. RETROPERITONEUM: No mass or adenopathy. LYMPH NODES: No adenopathy. URINARY BLADDER: No visible focal wall thickening, lesion, or calculus. PELVIC ORGANS: No visible mass. Pelvic organs appropriate for patient age. ABDOMINAL WALL: Scarring within anterior abdominal wall from prior surgery. No hernia. 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 OTHER: Negative. CT/CT abdomen pelvis wo con IMPRESSION: 1. Postsurgical changes involving the bowel and anterior abdominal wall; no hernia or appreciable change. Electronically authenticated by: GABY PADILLA Date: 10/19/2023 13:45
--- OUTSIDE RECORDS SUMMARY | 2023-10-19 09:26 | XMS_ITS | CCD ---
Author Organization [facility] Care Team Providers Care 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 Name Role Phone JUANCARLOS CUENCA Referring Unavailable JUANCARLOS CUENCA Primary Care Unavailable Delonte Webb Admitting Unavailable Dleonte Webb Attending Unavailable JUANCARLOS CUENCA Referring Unavailable TY AVALOS Surgeon Unavailable TY AVALOS Admitting Unavailable JUANCARLOS CUENCA Primary Care Unavailable TY AVALOS Attending Unavailable [place] Procedure Practitioner Unavailab Juancarlos Delatorre DO Primary Care Provider Pedro Richardsonmed Unavailable [phone] Dylan VANESSA, [facility] Ahmed Unavailable JUANCARLOS CUENCA Primary Care Physician [phone] Juancarlos Cuenca Unavailable Juancarlos Cuenca DO Primary Care Provider Dylan VANESSA, Ahmed Unavailable JAY GONZALEZ Referring Unavailable JUANCARLOS CUENCA [...] vailable LAKSHMIPATHKathy ., RAINA Admitting Janki vailable LAKHOUSTONPATHKathy ., RAINA Consulting Janki vailable BANG, DR [...] Consulting Unavailable NILLNya Attending Unavailable NILL, Nya Patel Attending Unavailable [...] sources) Morphine; Translations: [morphine] Drug Allergy Unknown [facility] Repository (1 source) Morphine Drug Allergy 06-05-2023 [facility] Repository Medications Current Medications Medication Drug Class(es) [...] aily. CPAP (8 sources) CPAP daily at [facility]. 0 Active Comment on above: daily [...] on above: Take 1 capsule by mo [facility] once daily. 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] Onset: 09-17-2022 Episodic Other and unspecified benign neoplasm (11 sources) Polyp of colon; Translations: [Polyp of colon] Onset: 06-07-2021 06-07-2021 Episodic Unclassified (1 source) LOW BACK PAIN, UNSPECIFIED; Translations: [LOW BACK PAIN, UNSPECIFIED] Onset: 04-24-2022 Results Test Name Value Interpretation Reference Range Facility Office Visiton 04-22-2023 Follow-up visit [id number] Vu Yee 1945 M Date Provider Department Center 04/22/2023 Flores-PEDRO RICHARDSON SONIA Michael Family History Problem Relation Age of Onset Coronary artery disease Mother Coronary artery disease Brother Family Status - Relation Status Age at Mother Brother Level of Service:38113 [place] OFFICE/OUTPATIENT ESTABLISHED LOW MDM 20-29 MIN Normal [facility] Outside Colonoscopyon 2022 Outside Colonoscopy [id number] 0CD:127 Normal [facility] Reminderson 12-18-2022 Reminders - From: Amy Menon LPN To: N - Clinical; Sent: 12/18/2022 12:06:16 EDT Show up: 11/16/2025 07:00:00 EDT Subject: colonoscopy recall Due Date/Time: 12/17/2025 07:00:00 EDT Reminder/Recall Patient due for surveillance colonoscopy 12/17/2025. Normal [facility] POINT OF CARE GLUCOSEon 11-19 Glucose [Mass/Vol] 176 mg/dL Critically high 74-106 [facility] Comment on above: Performed By: #### P OCGLUC #### [facility] [address] [address] [address] Rojelio Kingsley POINT OF CARE GLUCOSEon 11-19 Glucose [Mass/Vol] 157 mg/dL Critically high 74-106 [facility] Comment on above: Performed By: #### P OCGLUC #### [facility] [address] [address] [address] Rojelio Kingsley Consent for Procedure/Surger yon 12-03-2022 Consent for Procedure/Surgery [id number] 0CD:[address] [facility] Physician Referralon 023 Physician Referral [id number] 0CD:[address] [facility] General Surgery Office/Clini c Noteon 12-02-2022 [...] anastomosis and ventral hernia repair 09/2021 at [facility], they recommend yearly surveillance sigmoidoscopies; patient [...] 1 tab(s), (more content not included)... Normal [facility] Comment on above: Result Comment: Elec tronically Signed By: PELON VANESSA, Nya Nicholson\Date and Time Signed: 12/02/22 11:37 EDT POINT OF CARE GLUCOSEon 04-2 Glucose [Mass/Vol] 121 mg/dL Critically high 74-106 [facility] Comment on above: Performed By: #### P OCGLUC #### [facility] [address] [address] [address] Rojelio Kingsley CNOVon 10-16-2022 CNOV Office Visit ([facility] ) LIZZY YEE ([id number]) 1945 M Date Time Provider Department 10/16/22 1:20 PM JAY GONZALEZ [facility] During your visit today, we recorded the [...] Jay Gonzalez MD 10/16/2022 3:05 PM Signed [facility] Abdominal [facility] Health - Follow Up Visit [...] Gonzalez MD 10/16/22, 2:45 PM General Surgery [facility] Allergies As of Date: 10/16/2022 (No Known Allergies) Date Reviewed: 10/16/2022 Reviewed by: Destiny Zapata MA - Fully Assessed Reason for Visit: Follow Up [171] Cmt: 1 year, ventral incisional hernia Primary Visit Diagnosis:Ventral incisional hernia [K43.2] Order(s):CT ABD/PEL WO IVCON [[id number]] Order #: [id number] FUTURE enteric contrast (will be provided with [...] without long-t (more content not included)... [facility] ID: [id number] Author: RT Marisa(R) Service: Radiology Author Type: [...] RT Marisa(R) October 11, 2022 10:29 AM [facility] CT ABD/PEL WO IVCONon 2022 CT ABD/PEL WO IVCON * * *Final Report* * * DATE OF EXAM: Oct 11 2022 10:30AM [facility] 0531 - CT ABD/PEL WO IVCON [...] site. Lower thorax: Lower lungs are clear. Small Machine Bindery Operator (topogram) images: Unremarkable. IMPRESSION: Midline fat-containing upper abdominal hernia. Beater Engineer: PSCB Transcribe Date/Time: Oct 13 2022 7:57A Dictated by : YANICK RIVAS MD This examination was interpreted and the report reviewed and electronically signed by: YANICK RIVAS MD on Oct 13 2022 8:06AM EST [id number] [facility] 10-06-2022 [facility] Telephone ([facility]) LIZZY YEE ([id number]) 1945 M Date Time Provider Department 10/06/22 JAY GONZALEZ [facility] During your visit today, we recorded the following information about you: Anjelica Harsh 10/06/2022 3:09 PM Signed Pt's called he is going in for a CT scan on Thursday does he need to have a creatinine blood level, says he had one within the last month or so at a non cc facility. PH: [phone] Efrain Zamarripa RN 10/07/2022 10:43 AM Signed Returned call, went to voicemail. Left message that the CT has been ordered without contrast. Left office number for questions or concerns. Allergies As of Date: 10/06/2022 (No Known Allergies) Date Reviewed: 01/27/2022 Reviewed by: Sarah Osman MA - Fully Assessed Reason for Visit: Patient Question [6867] Prescriptions as of 10/07/2022 - lisinopril (ZESTRIL, [...] Status:Closed by EFRAIN ZAMARRIPA on 10/07/22 Normal [facility] Consent for Procedure/Surger yon 09-17-2022 Consent for Procedure/Surgery [id number] 0CD:[address] [facility] RAD - Ultrasound Reporton RAD - Ultrasound Report [id number] 0CD:[address] [facility] Ambulatory Visit Summaryon 0 09-16-2022 Ambulatory [...] no longer receiving treatment for. Hyperlipidemia Rajani [facility] Ambulatory Visit Summary LIZZY YEE :1945 [...] no longer receiving treatment for. Hyperlipidemia Normal [facility] General Surgery Office/Clini c Noteon 09-16-2022 [...] anastomosis and ventral hernia repair 09/2021 at [facility]; requires yearly flexible sigmoidoscopy for surveillance. [...] Oral, Nathalie (more content not included)... Normal [facility] Comment on above: Result Comment: Elec tronically Signed By: PELON VANESSA, Nya Nicholson\Date and Time Signed: 09/16/22 11:17 EST Alanine Aminotransferaseon 0 - ALT [Catalytic activity/Vol] 30 U/L Normal 16-63 [employer] Other Comment on above: Performed By: #### B MP, ALT, LIPID #### [facility] [address] [address] [address] Rojelio Kingsley Basic Metabolic Panelon 08-21 Calcium [Mass/Vol] 9.7535649 mg/dL 8.5-10 .1 mg/dL [employer] Other CO2 [Moles/Vol] 25.33862261 mmol/L 21.0-3 2.0 mmol/L [employer] Other Creatinine [Mass/Vol] 1.86335204 mg/dL Critically high 0.70-1.30 mg/dL [employer] Other Potassium [Moles/Vol] 4.46108018 mmol/L 3 .5-5.1 mmol/L [employer] Other Urea nitrogen [Mass/Vol] 16.5228193 mg/dL 7.0-18.0 mg/dL [employer] Other Basic Metabolic Panel see note Nor [employer] Other Basic Metabolic Panel 141 mmol/L 136-14 5 mmol/L [employer] Other Basic Metabolic Panel 134 mg/dL Critically high 74-106 mg /dL [employer] Other Basic Metabolic Panel 51 mL/min/1.73m2 Critically low >=60 mL/min/1.73m 2 [employer] Other Basic Metabolic Panel >60 mL/min/1.73m2 > =60 mL/min/1.73m 2 [employer] Other Anion gap [Moles/Vol] 15.2 mmol/L Normal [facility] [employer] Other Comment on above: Performed By: #### B MP, ALT, LIPID #### [facility] [address] [place] [address] Dr. Rojelio Kingsley Chloride [Moles/Vol] 105 mmol/L Normal 98-107 [facility] [employer] Other Comment on above: Performed By: #### B MP, ALT, LIPID #### [facility] [address] [place] [address] Dr. Rojelio Kingsley Urea nitrogen/Creatinine [Mass ratio] 11.8 mg/mg Normal [facility] [employer] Other Comment on above: Performed By: #### B MP, ALT, LIPID #### [facility] [address] [place] [address] Dr. Rojelio Kingsley CBC AUTO DIFFon 09-12-2022 BASO # 0.0 103/ul Normal 0.0-0.1 [facility] Comment on above: Performed By: #### C BC #### [facility] [address] [place] [address] Dr. Rojeilo Kingsley Basophils/100 WBC (Bld) 0.4 % Normal 0.2-2.0 [facility] Comment on above: Performed By: #### C BC #### [facility] [address] [place] [address] Dr. Rojelio Kingsley EO # 0.3 103/ul Normal 0.0-0.7 [facility] Comment on above: Performed By: #### C BC #### [facility] [address] [place] [address] Dr. Rojelio Kingsley Eosinophils/100 WBC (Bld) 3.6 % Normal 0.9-7.0 [facility] Comment on above: Performed By: #### C BC #### [facility] [address] [place] [address] Dr. Rojelio Kingsley Erythrocyte distribution width (RBC) [Ratio] 14.1 % Normal 11.0-15.0 [facility] Comment on above: Performed By: #### C BC #### [facility] [address] [place] [address] Dr. Rojelio Kingsley Hematocrit (Bld) [Volume fraction] 40.1 % Critically low 42.0-54.0 [facility] Comment on above: Performed By: #### C BC #### [facility] [address] [place] [address] Dr. Rojelio Kingsley Hemoglobin (Bld) [Mass/Vol] 13.4 g/dL Critically low 14.0-18.0 [facility] Comment on above: Performed By: #### C BC #### [facility] [address] [place] [address] Dr. Rojelio Kingsley IG # 0.02 10e3/ul Normal 0.00-0.03 [facility] Comment on above: Performed By: #### C BC #### [facility] [address] [place] [address] Dr. Rojelio Kingsley IG % 0.2 % Normal 0.0-0.5 [facility] Comment on above: Performed By: #### C BC #### [facility] [address] [place] [address] Dr. Rojelio Kingsley LYMPH # 1.8 103/ul Normal 1.2-3.8 [facility] Comment on above: Performed By: #### C BC #### [facility] [address] [place] [address] Dr. Rojelio Kingsley Lymphocytes/100 WBC (Bld) 21.9 % Normal 20.5-60.0 [facility] Comment on above: Performed By: #### C BC #### [facility] [address] [place] [address] Dr. Rojelio Kingsley MANUAL DIFF REQ NO Normal [facility] Comment on above: Performed By: #### C BC #### [facility] [address] [place] [address] Dr. Rojelio Kingsley MCH (RBC) [Entitic mass] 30.6 pg Normal 25.9-34.0 [facility] Comment on above: Performed By: #### C BC #### [facility] [address] [place] [address] Dr. Rojelio Kingsley MCHC (RBC) [Mass/Vol] 33.4 g/dL Normal 29.9-35.[address] [facility] Comment on above: Performed By: #### C BC #### [facility] [address] [place] [address] Dr. Rojelio Kingsley MCV (RBC) [Entitic vol] 91.6 fL Normal 80.0-94.0 [facility] Comment on above: Performed By: #### C BC #### [facility] [address] [place] [address] Dr. Rojelio Kingsley MONO # 0.8 103/ul Normal 0.3-0.8 [facility] Comment on above: Performed By: #### C BC #### [facility] [address] [place] [address] Dr. Rojelio Kingsley Monocytes/100 WBC (Bld) 9.3 % Normal 1.7-12.0 [facility] Comment on above: Performed By: #### C BC #### [facility] [address] [place] [address] Dr. Rojelio Kingsley NEUT # 5.4 103/ul Normal 1.4-6.5 [facility] Comment on above: Performed By: #### C BC #### [facility] [address] [place] [address] Dr. Rojelio Kingsley Neutrophils/100 WBC (Bld) 64.6 % Normal 43.0-75.[address] [facility] Comment on above: Performed By: #### C BC #### [facility] [address] [place] [address] Dr. Rojelio Kingsley Platelet mean volume (Bld) [Entitic vol] 10.3 fL Normal 9.5-13.[address] [facility] Comment on above: Performed By: #### C BC #### [facility] [address] [place] [address] Dr. Rojelio Kingsley PLT 214 103/ul Normal 150-[address] [facility] Comment on above: Performed By: #### C BC #### [facility] [address] [address] [address] Rojelio Kingsley RBC 4.38 106/ul Critically low 4.70-6.10 [facility] Comment on above: Performed By: #### C BC #### [facility] [address] [address] [address] Rojelio Kingsley WBC 8.4 103/ul Normal 4.0-11.0 [facility] Comment on above: Performed By: #### C BC #### [facility] [address] [place] [address] Dr. Rojelio Kingsley GLYCOHEMOGLOBIN A1Con 2022 ADA RECOMMENDATION SEE BELOW Normal [facility] Comment on above: Result Comment: ADA RECOMMENDED LIMIT 4.0 - 6.0 ADA THERAPEUTIC TARGET < 7.0 ACTION SUGGESTED > 7.0 Performed By: #### P OCGLUC #### [facility] [address] [place] [address] Dr. Rojelio Kingsley Glucose [Mass/Vol] 169 mg/dL Normal [facility] Comment on above: Performed By: #### P OCGLUC #### [facility] [address] [place] [address] Dr. Rojelio Kingsley HbA1c (Bld) [Mass fraction] 7.5 % Critically high 4.5-6.2 [facility] Comment on above: Performed By: #### P OCGLUC #### [facility] [address] [place] [address] Dr. Rojelio Kingsley LIPID PROFILEon 09-12-2022 CHOL-HDL RATIO NORM SEE BELOW Normal [facility] Comment on above: Result Comment: 3.3 - 4.4 LOW RISK 4.4 - 7.1 AVERAGE RISK 7.1 - 11.0 MODERATE RISK >11.0 HIGH RISK Performed By: #### B MP, ALT, LIPID #### [facility] [address] [place] [address] Dr. Rojelio Kingsley Cholesterol in LDL [Mass/Vol] 31.2 mg/dL Normal [facility] Comment on above: Performed By: #### B MP, ALT, LIPID #### [facility] [address] [place] [address] Dr. Rojelio Kingsley HDL NORMAL > or = 60 mg/dl - LO W CARDIOVASCULAR RISK <40 mg/dl - HIGH CARDIOVASCULAR RISK Normal [facility] Comment on above: Performed By: #### B MP, ALT, LIPID #### [facility] [address] [place], [place] [address] Dr. Rojelio Kingsley LDL CALC NORMAL SEE BELOW Normal [facility] Comment on above: Result Comment: <100 mg/dl OPTIMAL 100 - 129 mg/dl NEAR OR ABOVE OPTIMAL 130 - 159 mg/dl BORDERLINE HIGH 160 - 189 mg/dl HIGH >190 mg/dl VERY HIGH Performed By: #### B MP, ALT, LIPID #### [facility] [address] [address] [address] Rojelio Kingsley VLDL CALC 40.8 mg/dL Normal [facility] Comment on above: Performed By: #### B MP, ALT, LIPID #### [facility] [address] [address] [address] Rojelio Kingsley Lipid Panelon 09-12-2022 Lipid Panel > or = 60 mg/dl - LO W CARDIOVASCULAR RISK <40 mg/dl - HIGH CARDIOVASCULAR RISK [employer] Other Lipid Panel SEE BELOW [employer] Other Lipid Panel 31.2 mg/dL [employer] Other Lipid Panel 40.8 mg/dL [employer] Other Cholesterol [Mass/Vol] 115 mg/dL Normal <=200 [employer] Other Comment on above: Performed By: #### B MP, ALT, LIPID #### [facility] [address] [place], [place] [address] Dr. Rojelio Kingsley Cholesterol in HDL [Mass/Vol] 43 mg/dL Normal 40-60 [employer] Other Comment on above: Performed By: #### B MP, ALT, LIPID #### [facility] [address] [place], [place] [address] Dr. Rojelio Kingsley Cholesterol.total/Cho lesterol in HDL [Mass ratio] 2.7 {ratio} Normal [employer] Other Comment on above: Performed By: #### B MP, ALT, LIPID #### [facility] [address] [place] [address] Dr. Rojelio Kingsley Triglyceride [Mass/Vol] 204 mg/dL Critically high <=150 [employer] Other Comment on above: Performed By: #### B MP, ALT, LIPID #### [facility] [address] [address] [address] Rojelio Kingsley MICROALBUMIN, RAND URon - mALB 2.1 mg/L Normal <=30.0 [facility] Comment on above: Performed By: #### M ALBR #### [facility] [address] [place] [address] Dr. Rojelio Kingsley PROF CHEM 8 (BAS METB)on Calcium [Mass/Vol] 9.6 mg/dL Normal 8.5-10.1 [facility] Comment on above: Performed By: #### B MP, ALT, LIPID #### [facility] [address] [place] [address] Dr. Rojelio Kingsley CO2 [Moles/Vol] 25.1 mmol/L Normal 21.0-32.0 [facility] Comment on above: Performed By: #### B MP, ALT, LIPID #### [facility] [address] [place] [address] Dr. Rojelio Kingsley Creatinine [Mass/Vol] 1.36 mg/dL Critically high 0.70-1.30 [facility] Comment on above: Performed By: #### B MP, ALT, LIPID #### [facility] [address] [place] [address] Dr. Rojelio Kingsley EGFR-AF GAMBIAN >60 Normal >=60 [facility] Comment on above: Performed By: #### B MP, ALT, LIPID #### [facility] [address] [place] [address] Dr. Rojelio Kingsley EGFR-NON AF GAMBIAN 51 mL/min/1.73m2 Critically low >=60 [facility] Comment on above: Performed By: #### B MP, ALT, LIPID #### [facility] [address] [address] [address] Rojelio Kingsley Glucose [Mass/Vol] 134 mg/dL Critically high 74-106 [facility] Comment on above: Performed By: #### B MP, ALT, LIPID #### [facility] [address] [address] [address] Rojelio Kingsley Potassium [Moles/Vol] 4.3 mmol/L Normal 3.5-5.1 [facility] Comment on above: Performed By: #### B MP, ALT, LIPID #### [facility] [address] [address] [address] Rojelio Kingsley Sodium [Moles/Vol] 141 mmol/L Normal 136-145 [facility] Comment on above: Performed By: #### B MP, ALT, LIPID #### [facility] [address] [address] [address] Rojelio Kingsley Urea nitrogen [Mass/Vol] 16.0 mg/dL Normal 7.0-18.0 [facility] Comment on above: Performed By: #### B MP, ALT, LIPID #### [facility] [address] [address] [address] Rojelio Kingsley US CAROTID ART BILon [...] GABY PADILLA Date: 2022-09-12 15:22 Normal [facility] US CAROTID ART ZHENG [employer] Other Orders Onlyon 07-24-2022 Orders Only [id number] Vu Yee 1945 M Date Provider Department Center 07/24/2022 ZOFIA MARTINO [facility] Family History Problem Relation Age of Onset Coronary artery disease Mother Coronary artery disease Brother Family Status - Relation Status Age at Mother Brother Normal [facility] POINT OF CARE GLUCOSEon 06-19 Glucose [Mass/Vol] 106 mg/dL Normal 74-106 [facility] Comment on above: Performed By: #### P OCGLUC #### [facility] [address] [place], [place] [address] Dr. Rojelio Kingsley Covid-19 PCR ([facility])on SARS-CoV-2 (COVID-19) RNA MITCHELL+probe Ql (Unsp spec) Not detected Normal NOT DETECTED [facility] Comment on above: Result Comment: This test is not yet approved or cleared by the [place] FDA. When there are no FDA-approved or cleared tests available, and other criteria are met, FDA can make tests available under an emergency access mechanism called an Emergency Use Authorization (EUA). The EUA for this test is supported by the Mail Teller of Health and Human Service's (HHS's) declaration [...] SARS-CoV-2. Performed By: #### P OCGLUC #### [facility] [address] [place], [place] [address] Dr. Rojelio Kingsley 29on 05-19-2022 29 Addended by: MARINO MOE on: 05/19/2022 03:14 PM Modules accepted: Level of Service Normal [facility] Follow-Upon 05-19-2022 Follow-Up [id number] Vu Yee 1945 M Date Provider Department Center 05/19/2022 MARINO GRAVES SONIA [facility] Family History Problem Relation Age of Onset Coronary artery disease Mother Coronary artery disease Brother Family Status - Relation Status Age at Mother Brother Level of Service:87046 [place] OFFICE/OUTPATIENT ESTABLISHED LOW MDM 20-29 MIN Reason for Visit and Comments: Coronary Artery Disease [187] Hypertension [119530] Peripheral Vascular Disease [458] Normal [facility] POINT OF CARE GLUCOSEon 04-20 Glucose [Mass/Vol] 129 mg/dL Critically high 74-106 [facility] Comment on above: Performed By: #### P OCGLUC #### [facility] [address] [address] [address] Rojelio Kingsley POINT OF CARE GLUCOSEon 03-21 Glucose [Mass/Vol] 116 mg/dL Critically high 74-106 [facility] Comment on above: Performed By: #### P OCGLUC #### [facility] [facility] [address] [address] [address] Rojelio Kingsley XR LSPINE 2_3 VIEWSon [...] GABY PADILLA Date: 2022-03-05 13:06 Normal [address] [facility] CBC AUTO DIFFon 02-22-2022 BASO # 0.0 103/ul Normal 0.0-0.1 [facility] Comment on above: Performed By: #### P OCGLUC #### [facility] [address] [address] [address] Rojelio Kingsley Basophils/100 WBC (Bld) 0.4 % Normal 0.2-2.[address] [facility] Comment on above: Performed By: #### P OCGLUC #### [facility] [address] [address] [address] Rojelio Kingsley EO # 0.3 103/ul Normal 0.0-0.[address] [facility] Comment on above: Performed By: #### P OCGLUC #### [facility] [address] [address] [address] Rojelio Kingsley Eosinophils/100 WBC (Bld) 3.0 % Normal 0.9-7.0 [facility] Comment on above: Performed By: #### P OCGLUC #### [facility] [address] [address] [address] Rojelio Kingsley Erythrocyte distribution width (RBC) [Ratio] 14.4 % Normal 11.0-15.0 [facility] Comment on above: Performed By: #### P OCGLUC #### [facility] [address] [address] [address] Rojelio Kingsley Hematocrit (Bld) [Volume fraction] 37.1 % Critically low 42.0-54.0 [facility] Comment on above: Performed By: #### P OCGLUC #### [facility] [address] [address] [address] Rojelio Kingsley Hemoglobin (Bld) [Mass/Vol] 12.2 g/dL Critically low 14.0-18.0 [facility] Comment on above: Performed By: #### P OCGLUC #### [facility] [address] [address] [address] Rojelio Kingsley IG # 0.03 10e3/ul Normal 0.00-0.03 [facility] Comment on above: Performed By: #### P OCGLUC #### [facility] [address] [address] [address] Rojelio Kingsley IG % 0.4 % Normal 0.0-0.5 [facility] Comment on above: Performed By: #### P OCGLUC #### [facility] [address] [address] [address] Rojelio Kingsley LYMPH # 1.8 103/ul Normal 1.2-3.[address] [facility] Comment on above: Performed By: #### P OCGLUC #### [facility] [address] [address] [address] Rojelio Kingsley Lymphocytes/100 WBC (Bld) 21.6 % Normal 20.5-60.0 [facility] Comment on above: Performed By: #### P OCGLUC #### [facility] [address] [place] [address] Dr. Rojelio Kingsley MANUAL DIFF REQ NO Normal [facility] Comment on above: Performed By: #### P OCGLUC #### [facility] [address] [place] [address] Dr. Rojelio Kingsley MCH (RBC) [Entitic mass] 30.0 pg Normal 25.9-34.0 [facility] Comment on above: Performed By: #### P OCGLUC #### [facility] [address] [place] [address] Dr. Rojelio Kingsley MCHC (RBC) [Mass/Vol] 32.9 g/dL Normal 29.9-35.[address] [facility] Comment on above: Performed By: #### P OCGLUC #### [facility] [address] [place] [address] Dr. Rojelio Kingsley MCV (RBC) [Entitic vol] 91.4 fL Normal 80.0-94.0 [facility] Comment on above: Performed By: #### P OCGLUC #### [facility] [address] [place] [address] Dr. Rojelio Kingsley MONO # 0.7 103/ul Normal 0.3-0.8 [facility] Comment on above: Performed By: #### P OCGLUC #### [facility] [address] [address] [address] Rojelio Kingsley Monocytes/100 WBC (Bld) 8.4 % Normal 1.7-12.0 [facility] Comment on above: Performed By: #### P OCGLUC #### [facility] [address] [address] [address] Rojelio Kingsley NEUT # 5.5 103/ul Normal 1.4-6.5 [facility] Comment on above: Performed By: #### P OCGLUC #### [facility] [address] [address] [address] Rojelio Kingsley Neutrophils/100 WBC (Bld) 66.2 % Normal 43.0-75.0 [facility] Comment on above: Performed By: #### P OCGLUC #### [facility] [address] [place] [address] Dr. Rojelio Kingsley Platelet mean volume (Bld) [Entitic vol] 10.3 fL Normal 9.5-13.5 [facility] Comment on above: Performed By: #### P OCGLUC #### [facility] [address] [address] [address] Rojelio Kingsley PLT 202 103/ul Normal 150-450 [facility] Comment on above: Performed By: #### P OCGLUC #### [facility] [address] [address] [address] Rojelio Kingsley RBC 4.06 106/ul Critically low 4.70-6.10 [facility] Comment on above: Performed By: #### P OCGLUC #### [facility] [address] [place] [address] Dr. Rojelio Kingsley WBC 8.3 103/ul Normal 4.0-11.0 [facility] Comment on above: Performed By: #### P OCGLUC #### [facility] [address] [address] [address] Rojelio Kingsley GLYCOHEMOGLOBIN A1Con 2021 ADA RECOMMENDATION SEE BELOW Normal [facility] Comment on above: Result Comment: ADA RECOMMENDED LIMIT 4.0 - 6.0 ADA THERAPEUTIC TARGET < 7.0 ACTION SUGGESTED > 7.0 Performed By: #### A 1C #### [facility] [address] [address] [address] Rojelio Kingsley Glucose [Mass/Vol] 151 mg/dL Normal [facility] Comment on above: Performed By: #### A 1C #### [facility] [address] [place], [place] [address] Dr. Rojelio Kingsley HbA1c (Bld) [Mass fraction] 6.9 % Critically high 4.5-6.2 [facility] Comment on above: Performed By: #### A 1C #### [facility] [address] [address] [address] Rojelio Kingsley Consultation Noteon 02-19-20 Consultation Note [id number] 0CD:[id number] [facility] CNOVon 01-27-2022 [facility] Office Visit ([facility] ) LIZZY YEE ([id number]) 1945 M Date Time Provider Department 01/27/22 1:00 PM JUS BRAY [facility] During your visit today, we recorded [...] No Drains: No Referring Provider: JUS BRAY [[id number]] Allergies As of Date: 01/27/2022 (No Known Allergies) Date Reviewed: 01/27/2022 Reviewed by: Sarah Osman MA - Fully Assessed Reason for Visit: Established Patient Follow-Up [[id number]] Primary Visit Diagnosis:Polyposis of colon [K63.5] Other [...] 3-6 mo (more content not included)... Normal [facility] KNEE RIGHT 3 VWSon KNEE RIGHT 3 S [facility] Department of Radiology [address] [place] [phone] ======== Patient Name: LIZZY YEE : 1945 Sex: M Age: Race: White Pt. Location: Patient Status: Ordered Date: 01/09/2021 1:10:00 PM Completed Date: 01/09/2021 01:11 PM Requesting Provider: TY AVALOS Attending Provider: Report Copy To: Signs & Symptoms: Z96.659 Presence of unspecified artificial knee joint I10 History: Comments: Exam: KNEE RIGHT 3 S ======== KNEE RIGHT 3 [facility] HISTORY: Knee replacement, follow-up. COMPARISON: 12/26/2020. IMPRESSION: 1. Redemonstrated total knee prosthesis, no hardware complication or acute abnormality. No significant joint effusion. Mild soft tissue swelling noted. Electronically signed: Mitul Banks. Transcribed by: [email or web address], User Resident: Electronically Signed by: MITUL BANKS @ 01/09/2021 08:47 PM Normal [facility] POC GLUCOSE LABon 12-29-2020 Glucose [Mass/Vol] 194 mg/dL High 70-100 The [facility] Comment on above: Performed By: #### 8 [id number] #### [facility] [address] [place] [address], [place] Glucose [Mass/Vol] 125 mg/dL High 70-100 [facility] Comment on above: Performed By: #### 8 [id number] #### [facility] [address] [place] [address], [place] POC GLUCOSE LABon 12-28-2020 Glucose [Mass/Vol] 197 mg/dL High 70-100 [facility] Comment on above: Performed By: #### 8 [id number] #### [facility] [address] [place] [address], [place] Glucose [Mass/Vol] 177 mg/dL High 70-100 [facility] Comment on above: Performed By: #### 8 [id number] #### [facility] [address] [place] [address], [place] Glucose [Mass/Vol] 215 mg/dL High 70-100 [facility] Comment on above: Performed By: #### 8 [id number] #### [facility] [address] [place] [address], [place] Glucose [Mass/Vol] 152 mg/dL High 70-100 [facility] Comment on above: Performed By: #### 8 [id number] #### [facility] [address] [place] [address], [place] BASIC METABOLIC PANELon 12-18 Calcium [Mass/Vol] 8.2 mg/dL Low 8.6-10.3 [facility] Comment on above: Order Comment: No: D o not add to previous draw Performed By: #### 8 [id number] #### [facility] [address] [place] [address], [place] Chloride [Moles/Vol] 102 mmol/L Normal 98-107 The [facility] Comment on above: Order Comment: No: D o not add to previous draw Performed By: #### 8 [id number] #### [facility] [address] [place] [address], [place] CO2 [Moles/Vol] 23 mmol/L Normal 21-31 The [facility] Comment on above: Order Comment: No: D o not add to previous draw Performed By: #### 8 [id number] #### [facility] [address] [place] [address], [place] Creatinine [Mass/Vol] 0.97 mg/dL Normal 0.70-1.30 [facility] Comment on above: Order Comment: No: D o not add to previous draw Performed By: #### 8 [id number] #### [facility] [address] [place] [address], [place] GFR/1.73 sq M.predicted among blacks MDRD (S/P/Bld) [Vol rate/Area] mL/min/{1.73_m2} Normal >60 [facility] Comment on above: Order Comment: No: D o not add to previous draw Result Comment: Calc ulation may not be valid for patients over 70 years Performed By: #### 8 [id number] #### [facility] [address] [place] [address], [place] GFR/1.73 sq M.predicted among non-blacks MDRD (S/P/Bld) [Vol rate/Area] mL/min/{1.73_m2} Normal >60 [facility] Comment on above: Order Comment: No: D o not add to previous draw Result Comment: Calc ulation may not be valid for patients over 70 years Performed By: #### 8 [id number] #### [facility] [address] [place] [address], [place] Glucose [Mass/Vol] 191 mg/dL High 70-100 [facility] Comment on above: Order Comment: No: D o not add to previous draw Performed By: #### 8 [id number] #### [facility] [address] [place] [address], [facility] Potassium [Moles/Vol] 3.8 mmol/L Normal 3.5-5.1 [facility] Comment on above: Order Comment: No: D o not add to previous draw Performed By: #### 8 [id number] #### [facility] [address] [place] [address], [place] Sodium [Moles/Vol] 134 mmol/L Low 136-145 [facility] Comment on above: Order Comment: No: D o not add to previous draw Performed By: #### 8 [id number] #### [facility] [address] [place] [address], [place] Urea nitrogen [Mass/Vol] 23 mg/dL Normal 7-25 [facility] Comment on above: Order Comment: No: D o not add to previous draw Performed By: #### 8 [id number] #### [facility] [address] [place] [address], [facility] CBC COMPLETE BLOOD COUNTon 0 12-27-2020 Erythrocyte distribution width (RBC) [Ratio] 13.3 % Normal 11.5-15.0 [facility] Comment on above: Order Comment: No: D o not add to previous draw Performed By: #### 8 [id number] #### [facility] [address] [place] [address], [facility] Hematocrit (Bld) [Volume fraction] 35.4 % Low 39.0-50.0 [facility] Comment on above: Order Comment: No: D o not add to previous draw Performed By: #### 8 [id number] #### [facility] [address] [place] [address], [facility] Hemoglobin (Bld) [Mass/Vol] 11.7 g/dL Low 13.0-17.0 [facility] Comment on above: Order Comment: No: D o not add to previous draw Performed By: #### 8 [id number] #### [facility] [address] [place] [id number], [facility] MCH (RBC) [Entitic mass] 31.2 pg Normal 27.0-33.0 [facility] Comment on above: Order Comment: No: D o not add to previous draw Performed By: #### 8 [id number] #### [facility] [address] [place] [address], [facility] MCHC (RBC) [Mass/Vol] 33.1 g/dL Normal 32.0-35.0 [facility] Comment on above: Order Comment: No: D o not add to previous draw Performed By: #### 8 [id number] #### [facility] [address] [place] [address], [facility] MCV (RBC) [Entitic vol] 94.4 fL Normal 82.0-98.0 [facility] Comment on above: Order Comment: No: D o not add to previous draw Performed By: #### 8 [id number] #### [facility] [address] [place] [address], [facility] Nucleated RBC/100 WBC (Bld) [Ratio] 0 % Normal 0-0 [facility] Comment on above: Order Comment: No: D o not add to previous draw Performed By: #### 8 [id number] #### [facility] [address] [place] [address], [facility] PLAT CNT 177 10*3/uL Normal 150-400 [facility] Comment on above: Order Comment: No: D o not add to previous draw Performed By: #### 8 [id number] #### [facility] [address] [place] [address], [facility] RBC (Bld) [#/Vol] 3.75 10*6/uL Low 4.20-5.70 The [facility] Comment on above: Order Comment: No: D o not add to previous draw Performed By: #### 8 [id number] #### [facility] [address] [place] [address], [facility] WBC (Bld) [#/Vol] 16.83 10*3/uL High 4.00-10.60 [facility] Comment on above: Order Comment: No: D o not add to previous draw Performed By: #### 8 [id number] #### [facility] [address] Operative Reporton Operative Report MR#: [id number] I [facility] Pt. Name: Lizzy Yee Room #: 6AB [id number] Discharge Date: Birthdate: 1945 OPERATIVE REPORT DATE [...] cemented posterior stabilized total knee arthroplasty using Rodman implants. COMPLICATIONS: None. TOTAL TOURNIQUET TIME: 92 [...] surgery. He has been cleared by his interactive project manager for his surgery as well. The patient signed the consent form. Site was marked. We proceed with IV antibiotics in the form of 2 g of Ancef within an hour of the incision. PROCEDURE IN DETAIL: After written consent obtained, site was marked. The patient was taken to the [facility] OR and was seen by anesthesia. [...] futu (more content not included)... Normal [facility] POC GLUCOSE LABon 12-27-2020 Glucose [Mass/Vol] 200 mg/dL High 70-100 The [facility] Comment on above: Performed By: #### 8 [id number] #### [facility] [address] [place] [address], [place] Glucose [Mass/Vol] 186 mg/dL High 70-100 [facility] Comment on above: Performed By: #### 8 [id number] #### [facility] [address] [place] [address], [place] Glucose [Mass/Vol] 250 mg/dL High 70-100 [facility] Comment on above: Performed By: #### 8 [id number] #### [facility] [address] [place] [address], [place] Glucose [Mass/Vol] 177 mg/dL High 70-100 [facility] Comment on above: Performed By: #### 8 [id number] #### [facility] [address] [place] [address], [place] POC GLUCOSE LABon 12-26-2020 Glucose [Mass/Vol] 230 mg/dL High 70-100 [facility] Comment on above: Performed By: #### 8 [id number] #### [facility] [address] [place] [address], [place] Glucose [Mass/Vol] 278 mg/dL High 70-100 [facility] Comment on above: Performed By: #### 8 [id number] #### [address] [place] [address], [facility] Glucose [Mass/Vol] 174 mg/dL High 70-100 [facility] Comment on above: Performed By: #### 8 [id number] #### [facility] [address] [facility] [place] [address], [place] Glucose [Mass/Vol] 146 mg/dL High 70-100 [facility] Comment on above: Performed By: #### 8 5499 #### [address] [place] [address], [facility] PORTABLE KNEE RIGHT 2 [facility] 12-26-2020 PORTABLE KNEE RIGHT 2 [facility] Department of Radiology [address] [place] [phone] ======== Patient Name: LIZZY YEE : 1945 Sex: M Age: Race: White Pt. Location: [place] [address] Patient Status: I Ordered Date: 12/26/2020 7:05:00 AM Completed Date: 12/26/2020 01:31 PM Requesting Provider: DANO CANO Attending Provider: HONG SCOTT Report Copy To: Signs & Symptoms: Post OP History: Comments: Hardware Evaluation, In PACU; Exam: PORTABLE KNEE RIGHT 2 [facility] ======== PORTABLE KNEE RIGHT 2 VWS [...] replacement. Electronically signed: José Thornton. Transcribed by: [email or web address], User Resident: JOSÉ THORNTON Electronically Signed by: JOSÉ THORNTON @ 12/26/2020 03:28 PM I personally read this/these film(s) with this resident Normal The [facility] Comment on above: Order Comment: Hardw are Evaluation, In PACU; HIP RIGHT 1 OR 2 VWS WITH PE LVISon 10-05-2020 HIP RIGHT 1 OR 2 VWS WITH PELVIS [facility] Department of Radiology [address] [place] [phone] ======== Patient Name: LIZZY YEE : [...] narrowing. Electronically signed: Mitul Banks. Transcribed by: [email or web address], User Resident: Electronically Signed by: MITUL BANKS @ 10/05/2020 01:08 PM Normal [facility] Comment on above: Order Comment: Views (X-RAY, HIP): AP Pelvis, X-Table Lateral Hip , Weight Bearing?: Y KNEE LEFT 4VWSon 08-20-2020 KNEE LEFT 4VWS [facility] Department of Radiology [address] [place] [phone] ======== Patient Name: LIZZY YEE : 1945 Sex: M Age: Race: White Pt. Location: Patient Status: O Ordered Date: 08/20/2020 8:10:00 AM Completed Date: 08/20/2020 08:14 AM Requesting Provider: CEDRICK WILD Attending Provider: CEDRICK WILD Report Copy To: Signs & Symptoms: M25.569 Pain in unspecified knee I10 History: [place] Comments: Views (X-RAY, KNEE): AP, Lateral, Tunnel, [place] , Weight Bearing?: Y Exam: KNEE LEFT 4VWS ======== KNEE LEFT 4VWS 08/20/2020 8:14 AM CLINICAL INDICATIONS: M25.569 Pain in unspecified knee I10 TECHNOLOGIST COMMENTS: Patient states having bilateral knee pain. QUESTION FOR THE RADIOLOGIST: Views (X-RAY, KNEE): AP, Lateral, Tunnel, Oglesby , Weight Bearing?: Y PROTOCOL: AP,Lateral,Tunnel and [...] reports Electronically signed: Ej Francisco. Transcribed by: [email or web address], User Resident: TAMERA MARIE Electronically Signed by: EJ FRANCISCO @ 08/20/2020 08:41 AM I personally read this/these film(s) with this resident Normal [facility] Comment on above: Order Comment: Views (X-RAY, KNEE): AP, Lateral, Tunnel, [place] , Weight Bearing?: Y KNEE RIGHT 4 [facility] 1 KNEE RIGHT 4 [facility] Department of Radiology [address] [place] [phone] ======== Patient Name: LIZZY YEE : 1945 Sex: M Age: Race: White Pt. Location: 84 Patient Status: O Ordered Date: 08/20/2020 8:10:00 AM Completed Date: 08/20/2020 08:14 AM Requesting Provider: CEDRICK WILD Attending Provider: CEDRICK WILD Report Copy To: Signs & Symptoms: M25.569 Pain in unspecified knee I10 History: [place] Comments: Views (X-RAY, KNEE): AP, Lateral, Tunnel, [place] , Weight Bearing?: Y Exam: KNEE RIGHT 4 [facility] ======== KNEE RIGHT 4 S 08/20/2020 8:14 AM SIGNS AND SYMPTOMS: M25.569 Pain in unspecified knee I10 TECHNOLOGIST COMMENTS: Patient states having bilateral knee pain. QUESTION FOR THE RADIOLOGIST: Views (X-RAY, KNEE): AP, Lateral, Tunnel, [place] , Weight Bearing?: Y PROTOCOL: AP,Lateral,Tunnel and [...] knee. Electronically signed: Ej Francisco. Transcribed by: [email or web address], User Resident: Electronically Signed by: EJ FRANCISCO @ 08/20/2020 08:30 AM Normal [facility] Comment on above: Order Comment: Views (X-RAY, KNEE): AP, Lateral, Tunnel, [place] , Weight Bearing?: Y Vital Signs Date Time Vital Sign Value Performing Clinician Facility 06-05-2023 10:00-0500 Body height 165.1 cm Juancarlos Cuenca Other [facility] Other 06-05-2023 10:00-0500 Body mass index (BMI) [Ratio] 39.87 kg/m2 Juancarlos Ball Other [facility] Other 06-05-2023 10:00-0500 Body weight 108.68 kg Juancarlos Ball Other [facility] Other 06-05-2023 10:00-0500 Diastolic blood pressure 71 mm[Hg] Juancarlos Ball Other [facility] Other 06-05-2023 10:00-0500 Respiratory rate 20 /min Juancarlos Ball Other [facility] Other 06-05-2023 10:00-0500 Systolic blood pressure 118 mm[Hg] Juancarlos Ball Other [facility] Other 05-06-2023 13:45-0400 Body height 165.1 cm Juancarlos Ball Other [facility] Other 05-06-2023 13:45-0400 Body mass index (BMI) [Ratio] 39.97 kg/m2 Juancarlos Ball Other [facility] Other 05-06-2023 13:45-0400 Body weight 108.95 kg Juancarlos Ball Other [facility] Other 05-06-2023 13:45-0400 Diastolic blood pressure 87 mm[Hg] Juancarlos Ball Other [facility] Other 05-06-2023 13:45-0400 Respiratory rate 16 /min Juancarlos Ball Other [facility] Other 05-06-2023 13:45-0400 Systolic blood pressure 158 mm[Hg] Juancarlos Ball Other [facility] Other 03-10-2023 11:00-0400 Body height 165.1 cm Juancarlos Ball Other [facility] Other 03-10-2023 11:00-0400 Body mass index (BMI) [Ratio] 39.3 kg/m2 Juancarlos Ball Other [facility] Other 03-10-2023 11:00-0400 Body weight 107.14 kg Juancarlos Ball Other [facility] Other 03-10-2023 11:00-0400 Diastolic blood pressure 67 mm[Hg] Juancarlos Ball Other [facility] Other 03-10-2023 11:00-0400 Respiratory rate 16 /min Juancarlos Ball Other [facility] Other 03-10-2023 11:00-0400 Systolic blood pressure 120 mm[Hg] Juancarlos Ball Other [facility] Other 10-16-2022 13:12-0400 Body temperature 97.11 [degF] Jay Gonzalez MD Work Phone: [facility] 10-16-2022 13:12-0400 Diastolic blood pressure 66 mm[Hg] Jay Gonzalez MD Work Phone: [facility] 10-16-2022 13:12-0400 Heart rate 51 /min Jay Gonzalez MD Work Phone: [facility] 10-16-2022 13:12-0400 SaO2% (BldA) [Mass fraction] 96 % Jay Gonzalez MD Work Phone: [facility] 10-16-2022 13:12-0400 Systolic blood pressure 143 mm[Hg] Jay Gonzalez MD Work Phone: [facility] 09-08-2022 13:30-0500 Body height 165.1 cm Juancarlos Ball Other [facility] Other 09-08-2022 13:30-0500 Body mass index (BMI) [Ratio] 39.33 kg/m2 Juancarlos Ball Other [facility] Other 09-08-2022 13:30-0500 Body weight 107.23 kg Juancarlos Ball Other [facility] Other 09-08-2022 13:30-0500 Diastolic blood pressure 70 mm[Hg] Juancarlos Ball Other [facility] Other 09-08-2022 13:30-0500 Respiratory rate 20 /min Juancarlos Ball Other [facility] Other 09-08-2022 13:30-0500 Systolic blood pressure 112 mm[Hg] Juancarlos Ball Other [facility] Other 01-27-2022 13:20-0400 Body height 165.1 cm Jus Bray MD Work Phone: [facility] 01-27-2022 13:20-0400 Body temperature 96.91 [degF] Jus Bray MD Work Phone: [facility] 01-27-2022 13:20-0400 Body weight 104.33 kg Jus Bray MD Work Phone: [facility] 01-27-2022 13:20-0400 Diastolic blood pressure 56 mm[Hg] Jus Bray MD Work Phone: [facility] 01-27-2022 13:20-0400 Heart rate 50 /min Jus Bray MD Work Phone: [facility] 01-27-2022 13:20-0400 SaO2% (BldA) [Mass fraction] 98 % Jus Bray MD Work Phone: [facility] 01-27-2022 13:20-0400 Systolic blood pressure 131 mm[Hg] Jus Bray MD Work Phone: [facility] 10-10-2021 10:46-0400 Body height 165.1 cm Jay Gonzalez MD Work Phone: [facility] 10-10-2021 10:46-0400 Body weight 102.51 kg Jay Gonzalez MD Work Phone: [facility] 10-10-2021 10:46-0400 Diastolic blood pressure 65 mm[Hg] Jay Gonzalez MD Work Phone: [facility] 10-10-2021 10:46-0400 Heart rate 76 /min Jay Gonzalez MD Work Phone: [facility] 10-10-2021 10:46-0400 Systolic blood pressure 137 mm[Hg] Jay Gonzalez MD Work Phone: [facility] 10-10-2021 10:44-0400 Body height 165.1 cm Jus Bray MD Work Phone: [facility] 10-10-2021 10:44-0400 Body weight 102.51 kg Jus Bray MD Work Phone: [facility] 10-10-2021 10:44-0400 Diastolic blood pressure 65 mm[Hg] Jus Bray MD Work Phone: [facility] 10-10-2021 10:44-0400 Heart rate 76 /min Jus Bray MD Work Phone: [facility] 10-10-2021 10:44-0400 SaO2% (BldA) [Mass fraction] 98 % Jus Bray MD Work Phone: [facility] 10-10-2021 10:44-0400 Systolic blood pressure 137 mm[Hg] Jus Bray MD Work Phone: [facility] Encounters Encounter Date Encounter Type Care Provider Facility Start: 10-01-2023 End: 10-01-2023 ambulatory ANGELA BINGHAM Not Available Start: 08-10-2023 (RD) Meal Cooker Nirmala aJmes [facility] Start: 08-10-2023 End: 08-10-2023 ambulatory Juancarlos Cuenca [facility] Other Start: 08-03-2023 End: 08-04-2023 ambulatory Hanh Wade MD Facility:[facility] Start: 07-27-2023 End: 07-28-2023 ambulatory Hanh Wade MD Facility:[facility] Start: 06-17-2023 End: 06-17-2023 ambulatory Juancarlos Cuenca Other [facility] Other Start: 06-17-2023 Telephone encounter Juancarlos Ball [facility] Start: 06-16-2023 End: 06-16-2023 ambulatory Juancarlos Cuenca Other [facility] Other Start: 06-16-2023 Telephone encounter Juancarlos Ball [facility] Start: 06-09-2023 End: 06-09-2023 ambulatory Juancarlos Cuenca Other [facility] Other Start: 06-09-2023 Telephone encounter Juancarlos Ball [facility] Start: 06-08-2023 End: 06-08-2023 ambulatory Juancarlos Cuenca Other [facility] Other Start: 06-08-2023 Telephone encounter Juancarlos Ball [facility] Start: 06-07-2023 End: 06-07-2023 ambulatory Juancarlos Ball Other [facility] Other Start: 06-07-2023 Telephone encounter Juancarlos Ball [facility] Start: 06-05-2023 End: 06-05-2023 ambulatory Juancarlos Ball Other [facility] Other Start: 06-05-2023 Office outpatient vi sit 25 minutes Juancarlos Ball [facility] Start: 05-27-2023 End: 05-27-2023 ambulatory Juancarlos Ball Other [facility] Other Start: 05-27-2023 Telephone encounter Juancarlos Ball [facility] Start: 05-17-2023 End: 05-17-2023 ambulatory Juancarlos Ball Other [facility] Other Start: 05-17-2023 Telephone encounter Juancarlos Ball [facility] Start: 05-15-2023 End: 05-15-2023 ambulatory Juancarlos Ball Other [facility] Other Start: 05-15-2023 Telephone encounter Juancarlos Ball [facility] Start: 05-07-2023 End: 05-07-2023 ambulatory Juancarlos Ball Other [facility] Other Start: 05-07-2023 Telephone encounter Juancarlos Ball [facility] Start: 05-06-2023 End: 05-06-2023 ambulatory Juancarlos Ball Other [facility] Other Start: 05-06-2023 Office outpatient vi sit 25 minutes Juancarlos Ball [facility] Start: 05-06-2023 Telephone encounter Juancarlos Ball [facility] Start: 04-22-2023 End: 04-22-2023 ambulatory [facility] Start: 04-04-2023 End: 04-04-2023 ambulatory Juancarlos Ball Other [facility] Other Start: 04-04-2023 Telephone encounter Juancarlos Ball [facility] Start: 03-10-2023 End: 03-10-2023 ambulatory Juancarlos Ball Other [facility] Other Start: 03-10-2023 Office outpatient vi sit 25 minutes Juancarlos Ball [facility] Start: 12-24-2022 End: 12-24-2022 ambulatory Juancarlos Ball Other [facility] Other Start: 12-24-2022 Telephone encounter Juancarlos BE[facility] Start: 12-17-2022 End: 12-18-[address] NYA BIRD . Facility:[facility] Start: 12-16-2022 End: 12-16-2022 ambulatory RAINA CRONINSHMIPATHKathy . Facility: Start: 12-02-2022 End: 12-03-2022 ambulatory Nya BIRD Facility: [facility] Start: 11-28-2022 End: 11-29-2022 ambulatory MANAV CIROEUGENIA . Facility:[facility] Start: 11-28-2022 End: 11-29-2022 ambulatory NARENDRANATH LAKSHMIPATHY . Facility: Start: 11-11-2022 End: 11-11-2022 ambulatory NARENDRANATH LAKSHMIPATHY . Facility: Start: 10-28-2022 End: 10-29-[address] EVAN LAMAS . Facility:[facility] Start: 10-16-2022 End: 10-16-2022 ambulatory JAY GONZALEZ Facility: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] Start: 10-06-2022 Telephone encounter Jay patel MD Work Phone: General Surgery Comment on above: Patient Question Start: 09-16-2022 Telephone encounter Juancarlos BELL [facility] Start: 09-16-2022 End: 09-17-2022 ambulatory Nya BIRD [facility] Other Start: 09-16-2022 End: 09-27-2022 Pre-admission assessment Nya BIRD [facility] Start: 09-12-2022 Telephone encounter Juancarlos Cuenca [facility] Start: 09-12-2022 End: 09-13-[address] JUANCARLOS CUENCA [facility] Other Start: 09-08-2022 End: 09-08-2022 ambulatory Juancarlos Cuenca Other [facility] Other Start: 09-08-2022 Patient encounter procedure Juancarlos Bang Cuenca [facility] Start: 07-31-2022 End: 08-01-[address] EVAN LAMAS . Facility:[facility] Start: 07-03-2022 Encounter for preprocedural laboratory examination DR EVAN LAMAS . [facility] Start: 07-01-2022 End: 07-01-[address] EVAN LAMAS . Facility:[facility] Start: 06-27-2022 End: 06-28-[address] EVAN LAMAS . Facility:[facility] Start: 06-27-2022 End: 06-28-2022 Encounter for preprocedural laboratory examination DR EVAN LAMAS . Facility:[facility] Start: 05-29-2022 End: 05-30-[address] EVAN LAMAS . Facility:[facility] Start: 05-19-2022 End: 05-19-2022 ambulatory [facility] Start: 05-13-2022 End: 05-13-[address] [...] 01-27-2022 End: 01-27-2022 ambulatory JUS BRAY Facility:[facility] Start: 01-27-2022 End: 01-27-2022 Patient encounter procedure Jus Bray MD Work Phone: Colorectal Surgery Comment on above: Polyposis of colon ( Primary Dx); Incisional hernia, without obstruction or gangrene Start: 10-11-2021 Telephone encounter Shilpa Storm MD Work Phone: [facility] Research Comment on above: Research Start: 10-10-2021 End: 10-10-2021 Patient encounter procedure Jay Gonzalez MD Work Phone: General Surgery Comment on above: Ventral incisional h ernia (Primary Dx) Polyposis of colon ( Primary Dx) Start: 12-26-2020 End: 12-29-2020 ambulatory JUANCARLOS CUENCA Facility:[facility] Start: 10-19-2020 End: 10-20-2020 ambulatory JUANCARLOS CUENCA Facility:[facility] Procedures Date Procedure Procedure Detail Performing [...] Ventral incisional hernia Expected: 10/10/2022, Expires: 11/09/2022 [facility] Work Phone: Comment on above: Expected: 10/10/2022 , Expires: 11/09/2022 Start: 07-20-2022 ADVANCE DIRECTIVE DISCUSSION ADVANCE DIRECTIVE DISCUSSION [facility] Start: 07-20-2022 DEPRESSION ASSESSMENT DEPRESSION ASS ESSMENT [facility] Start: 03-20-2022 Influenza vaccination INFLUENZA (#1) [facility] Start: 03-13-2022 Hemoglobin A1c/Hemoglobin.total in Blood HBA1C [facility] Start: 01-04-2022 COVID-19 VACCINE (5 - Booster for Pfizer series) COVID-19 VACCINE (5 - Booster for Pfizer series) [facility] Start: 07-20-2021 ADVANCE DIRECTIVE DISCUSSION ADVANCE DIRECTIVE DISCUSSION [facility] Start: 2009 PNEUMOVAX AGE 65 AND OVER WITH 5YR LOOKBACK (#1) PNEUMOVAX AGE 65 AND OVER WITH 5YR LOOKBACK (#1) [facility] Start: 1994 SHINGRIX VACCINE (1 of 2) SHINGRIX VACCINE (1 of 2) [facility] Start: 12-31-1963 Urine microalbumin profile DTAP,TDAP,TD (1 - Tdap) [facility] Start: 1962 ANNUAL PCP TEAM INTERMEDIATE CARD TENDER MACY DISEASE VISIT ANNUAL PCP TEAM CHRONIC DISEASE VISIT [facility] Start: 1962 BP CONTROLLED (<130/80) BP CON TROLLED (<130/80) [facility] Start: 1962 Hepatitis B surface antibody level LDL CHOLESTEROL [facility] Start: 1962 HEPATITIS C SCREENING HEPATITIS C SC REENING [facility] Start: 1956 Adult depression screening assessment DEPRESSION SCREENING [facility] Start: 1954 3 comp foot exam completed DIABETIC FOOT EXAM [facility] Start: 1954 Hepatitis B screening URINE ALBUMIN:CREATININE RATIO [facility] Start: 1954 Hepatitis C antibody , confirmatory test DILATED RETINAL EXAM [facility] Start: 1950 PNEUMOCOCCAL: 65+ (1 - PCV) PNEUMOCOCCAL: 65+ (1 - PCV) [facility] End: 10-11-2022 Ct abdomen & pelvis w/o contrast material [facility] Work Phone: Comment on above: 1 Occurrences starti ng 10/11/2022 until 10/11/2022 End: 11-15-2023 Ct abdomen & pelvis w/o contrast material CT ABD/PEL WO IVCON Radiology Routine Ventral incisional hernia 1 Occurrences starting 10/16/2022 until 11/15/2023 [facility] Work Phone: Comment on above: 1 Occurrences starti ng 10/16/2022 until 11/15/2023 [facility] Immunizations Immunization Date Immunization Notes Care Provider Fa mirela 05-20-2022 influenza virus vaccine, unspecified formulation Nya BIRD [facility] [place] 05-16-2022 influenza, high dose seasonal, preservative-free Juancarlos Cuenca Other [facility] Other 05-16-2022 influenza virus vaccine, split virus (incl. purified surface antigen) Juancarlos Cuenca Other [facility] Other 04-15-2022 SARS-CoV-2 (COVID-19 ) [id number] Nya NILL [facility] 11-09-2021 COVID-19 Vaccine Pfi zer - Documentation Purposes Only Juancarlos Cuenca Other [facility] Other 11-09-2021 SARS-CoV-2 mRNA (clvxxwrpsrz-ylyo-ysndp se) vaccine Nya NILL [facility] 04-19-2021 SARS-CoV-2 (COVID-19 ) mRNA BNT-162b2 vax Nya NILL [facility] Comment on above: Result Comment: 2022: [id number] 09-05-2020 SARS-CoV-2 (COVID-19 ) mRNA BNT-162b2 vax Nya SAVAGEL [facility] Comment on above: Result Comment: 2022: [id number] 08-15-2020 COVID-19 Vaccine Moderna - Documentation Purposes Only Juancarlos Cuenca Other [facility] Other 08-15-2020 SARS-CoV-2 (COVID-19 ) mRNA BNT-162b2 vax Nya SAVAGEL [facility] Comment on above: Result Comment: 2022: [id number] 03-28-2020 influenza virus vaccine, split virus (incl. purified surface antigen) Juancarlos Cuenca Other [facility] Other 05-17-2019 influenza virus vaccine, split virus (incl. purified surface antigen) Juancarlos Cuenca Other [facility] Other 05-13-2018 influenza virus vaccine, split virus (incl. purified surface antigen) Juancarlos Cuenca Other [facility] Other 04-25-2015 influenza virus vaccine, split virus (incl. purified surface antigen) Juancarlos Cuenca Other [facility] Other 04-25-2015 pneumococcal conjuga te vaccine, 13 valent Juancarlos Cuenca Other [facility] Other 04-19-2014 pneumococcal polysaccharide vaccine, 23 valent Juancarlos Cuenca Other [facility] Other 04-20-2013 tetanus and diphther ia toxoids, adsorbed, preservative free, for adult use (5 Lf of tetanus toxoid and 2 Lf of diphtheria toxoid) Juancarlos Cuenca Other [facility] Other 04-21-2012 pneumococcal polysaccharide vaccine, 23 valent Juancarlos Cuenca Other [facility] Other Payers Date Payer Category Payer Self-pay 2023 Unknown 2020 Private Health Insurance [facility] AARP SUPPLEMENT [id number] 2020-Present [phone] [address] [place] [address] Indemnity [id number] 2020 Private Health Insurance [facility] AARP SUPPLEMENT [id number] 2020-Present [phone] [address] [place] [address] Indemnity [id number] 2009 Medicare MEDICARE MEDICAR E A AND B [id number] 2009-Present [phone] [place] [address] Medicare [id number] 2009 Medicare [id number] 1959 Medicare [id number] 1959 Unknown [id number] 1944 Unknown [id number] 2.16.840.1.710078.3.579.2 .647 1944 Unknown [id number] 2.16.840.1.902584.3.579.2 .647 1944 Unknown [id number] 2.16.840.1.129686.3.579.2 .593 1944 Unknown [id number] 2.16.840.1.261979.3.579.2 .593 1944 Unknown [id number] 2.16.840.1.828909.3.579.2 .593 1944 Unknown [id number] 2.16.840.1.051409.3.579.2 .593 1944 Unknown [id number] 2.16.840.1.042522.3.579.2 .593 1944 Unknown [id number] 2.16.840.1.328041.3.579.2 .593 1944 Unknown [id number] 2.16.840.1.980596.3.579.2 .593 1944 Unknown [id number] 2.16.840.1.894645.3.579.2 .593 1944 Unknown [id number] 2.16.840.1.343257.3.579.2 .593 1944 Unknown [id number] 2.16.840.1.926960.3.579.2 .593 1944 Unknown [id number] 2.16.840.1.821487.3.579.2 .593 1944 Unknown [id number] 2.16.840.1.033429.3.579.2 .593 1944 Unknown [id number] 2.16.840.1.083799.3.579.2 .593 1944 Unknown [id number] 2.16.840.1.190353.3.579.2 .593 1944 Unknown [id number] 2.16.840.1.306538.3.579.2 .593 1944 Unknown [id number] 2.16.840.1.105223.3.579.2 .593 1944 Unknown [id number] 2.16.840.1.746728.3.579.2 .593 1944 Unknown [id number] 2.840.1.845642.3.579.2 .593 1944 Unknown [id number] 2.16.840.1.481250.3.579.2 .593 1944 Unknown [id number] 2..840.1.019573.3.579.2 .727 1944 Unknown [id number] 2.16.840.1.498979.3.579.2 .727 1944 Unknown [id number] 2.840.1.595089.3.579.2 .727 1944 Unknown [id number] 2.16.840.1.980398.3.579.2 .196 1944 Unknown [id number] 2.16.840.1.799187.3.579.2 .196 1944 Unknown [id number] 2.16.840.1.033976.3.579.2 .1259 Unknown [id number] Unknown [id number] 2.16840.1.485432.19 Unknown [id number] 2.16.840.1.744656.3.579.2 .531 Social History Date Type Detail Facility Start: 05-21-2021 End: 10-16-2022 Tobacco smoking status NHIS Ex-smoker [facility] End: 07-20-1994 History of tobacco use Current smoker [facility] End: 07-20-1994 History of tobacco use Cigar Smoker [facility] Start: 05-21-2021 End: 10-16-2022 Tobacco use and exposure Smokeless tobacco non-user [facility] Start: 10-10-2021 End: 10-16-2022 Alcohol intake Ex-drinker (finding) [facility] Start: 05-21-2021 End: 10-16-2022 Tobacco Comment Quit 15+ years [facility] Start: 1945 Sex Assigned At Not on file [facility] Start: 08-25-2021 End: 09-24-2021 Exposure to SARS-CoV-2 (event) Not sure [facility] Start: 09-16-2022 Tobacco smoking status Never s moked tobacco (finding) [facility] Tobacco smoking status Former sm okeless tobacco user, quit more than 30 days ago [facility] [place] Sex Assigned At Male [facility] Medical Equipment Procedure Code Equipment Code Equipment Origin al Text Equipment Identifier Dates Mesh Parietene Polypropylene Macroporous [id number] Surgical Monofilament - [id number] Start: 09-24-2021 Clinical Notes 12-29-2020 to 08-10-2023 Note Date & Type Note Facility 08-10-2023 Evaluation note Encounter Date Diagnosis Assessment Notes Jul, Other Summary of Visit: (A) Meal timing (B) DM2 nutrition education (C) Answered general, nutrition-rela maru questions [facility] Other 11-28-2023 Evaluation note* Encounter Date Diagnosis Assessment Notes Treatment Notes Treatment Clinical Notes May, Type 2 diabetes mellitus with hyperglycemia, without long-term current use of insulin (ICD-10 - E11.65) [facility] Other 11-28-2023 Evaluation note* Encounter Date Diagnosis Assessment Notes Treatment Notes Treatment Clinical Notes May, Primary hypertension (ICD-10 - I10) [facility] Other 11-21-2023 Evaluation note* Encounter Date Diagnosis Assessment Notes Treatment Notes Treatment Clinical Notes May, Type 2 diabetes mellitus with hyperglycemia, without long-term current use of insulin (ICD-10 - E11.65) [facility] Other 11-17-2023 Evaluation note* Encounter Date Diagnosis [...] use, the patient reduces the risk for NM, CVA, HTN, cardiac dysrhythmias and sudden cardiac [...] index [BMI] 39.0-39.9, adult (ICD-10 - Z68.39) [facility] Other 11-08-2023 Evaluation note* Encounter Date Diagnosis Assessment Notes Treatment Notes Treatment Clinical Notes May, Primary hypertension (ICD-10 - I10) [facility] Other 10-29-2023 Evaluation note* Encounter Date Diagnosis Assessment Notes Treatment Notes Treatment Clinical Notes Apr, Type 2 diabetes mellitus with hyperglycemia, without long-term current use of insulin (ICD-10 - E11.65) Apr, Primary hypertension (ICD-10 - I10) [facility] Other 10-19-2023 Evaluation note* Encounter Date Diagnosis Assessment Notes Treatment Notes Treatment Clinical Notes Apr, Type 2 diabetes mellitus with hyperglycemia, without long-term current use of insulin (ICD-10 - E11.65) [facility] Other 10-18-2023 Evaluation note* Encounter Date Diagnosis Assessment Notes Treatment Notes Treatment Clinical Notes Apr, ASHD (arteriosclerotic heart disease) (ICD-10 - I25.10) This patient is stable without activity related CP, dyspnea or lightheadedness. They are instructed to continue exercise and AHA diet plan. Continue secondary prevention measures. Savings Teller suggesting SGLT-2 for dual benefit w/ ASHD [...] contributed. Monitor for now Apr, Atherosclerosis of [place] artery of right lower extremity with rest pain (ICD-10 - I70.221) Walk daily until painful. Inspect feet daily for cuts. Continue secondary prevention measures. Scheduled post op JAMIR [facility] Other 10-18-2023 Evaluation note* Encounter Date Diagnosis Assessment Notes Treatment Notes Treatment Clinical Notes Apr, Type 2 diabetes mellitus with hyperglycemia, without long-term current use of insulin (ICD-10 - E11.65) [facility] Chief Complaint: Patient here for 1 year follow up CAD, PVD, and hypertension. He underwent LE angiogram last month with Dr. Mccurdy of [facility]. He sees him for [...] history of Coronary artery disease, Diabetes mellitus ([facility]), Hypertension, PVD (peripheral vascular disease) ([facility]), and Sleep apnea. Surgical History [...] common femoral artery. Surgeon: Jyoti Mccurdy Primary Cooker Chip: None. Anesthesia: Local with 1% lidocaine and sedation. EBL: 10 cc Complications: None. 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 Procedure: Patient was brought to the angiogram suite. He was placed on the table in supine position. Left groin area was prepped and draped in the usual sterile fashion. Patient was given (more content not included)...[facility]08-22-2023 Evaluation note* Encounter Date Diagnosis Assessment Notes [...] f/u Vascular surgery for surveillance US Feb, NARINDRE (generalized anxiety disorder) (ICD-10 - F41.1) Healthy diet, keep active and continue medication No ER visits of episodes of panic Feb, Obstructive sleep apnea (ICD-10 - G47.33) This patient is aware of the benefits associated with BHUPENDRA: With continued use, the patient reduces the risk for NM, CVA, HTN, cardiac dysrhythmias and sudden cardiac [...] [BMI ] 39.0-39.9, adult (ICD-10 - Z68.39) [facility] Other 05-31-2023 NoteOPERATIVE NOTE OPERATION DATE: 11/29/2022 [...] in three years. CC: Juancarlos Cuenca D.O.[facility] [id number] NotePROCEDURE: XR HIP LT 2 3V WO PELVIS HISTORY: Pain of left hip joint COMPARISON: None. FINDINGS: BONES:No fracture, acute abnormality, or significant arthropathy. SOFT TISSUES:No visible soft tissue swelling. EFFUSION:None visible. OTHER: Negative. IMPRESSION: 1. No acute bone abnormality. 2. Mild degenerative joint disease. Electronically authenticated by: GABY PADILLA Date: 2022-11-28 13:08[facility]04-11-2023 NoteCONSULTATION CONSULTATION DATE: 10/28/2022 TO: Juancarlos Cuenca [...] our patients to inform us about any wfhn-sqf-hqooowx medications or herbal remedies/nutritional supplements/alternative remedies. 2. [...] treatment options with their primary care provider.[facility] [id number] NoteHNO ID: [id number] Author: Jay Gonzalez MD Service: ? Author Type: Physician Type: Progress Notes Filed: 10/16/2022 3:05 PM Note Text: [facility] - Follow [...] Gonzalez MD 10/16/22, 2:45 PM General Surgery [facility]03-30-2023 NoteHNO ID: [id number] Author: Destiny Zapata MA Service: ? Author Type: [employer] Type: Progress Notes Filed: 10/16/2022 3:05 PM Note Text: What is the reason for your visit today? Follow up 1 year Who is your referring physician? Are you having poor oral intake? NO Have you had unintentional weight loss of 15 lbs/7 Kg in the last 3-6 months? NO Bowels: regular Wound: Temperature: No Drains: [facility]03-30-2023 History of Present illness Narrative* Jay Gonzalez MD - 10/16/2022 2:38 PM EDT [facility] - Follow [...] Gonzalez MD 10/16/22, 2:45 PM General Surgery [facility] * Destiny Zapata MA - 10/16/2022 1:09 PM EDT What is the reason for your visit today? Follow up 1 year Who is your referring physician? Are you having poor oral intake? NO Have you had unintentional weight loss of 15 lbs/7 Kg in the last 3-6 months? NO Bowels: regular Wound: Temperature: No Drains: No [facility] Miscellaneous Notes* Allied Health - RT Marisa(R) [...] 11, 2022 10:29 AM documented in this encounterWilson [facility]03-21-2023 Miscellaneous Notes* Telephone Encounter - Efrain Zamarripa [...] so at a non cc facility. PH: [phone] documented in this encounterWilson Health02-24-2023 Evaluation note* Encounter Date Diagnosis Assessment Notes Treatment Notes Treatment Clinical Notes Aug, Left carotid artery stenosis (ICD-10 - I65.22) US: right <50%, left 50-69% - 10/2020 US: right <50%, left 80-90% - 08/2022 [facility] Other 02-20-2023 Evaluation note* Encounter Date Diagnosis [...] use, the patient reduces the risk for NM, CVA, HTN, cardiac dysrhythmias and sudden cardiac [...] reviewed and amended by provider signed below. [facility] Other 01-12-2023 NoteCONSULTATION PROCEDURE DATE: 09/18/2022 PREOPERATIVE [...] will be followed up in the office.[facility] [id number] NoteCONSULTATION CONSULTATION DATE: 07/31/2022 HISTORY OF PRESENT [...] and the patient agrees with this plan.[facility] 05-29-2022 NoteCONSULTATION CONSULTATION DATE: 05/29/2022 HISTORY [...] be followed up in the clinic thereafter.[facility] [id number] NotePatient here for 1 year follow up CAD, hypertension, and PVD. Had labs in September 2021 while at [place] [facility] for colon surgery/hernia repair. He became hypotensive s/p surgery so his BP meds were adjusted. Denies chest pain and palpitations. Says his SOB with exertion remains unchanged. Review of Systems Cardiovascular: Positive for dyspnea on exertion. Musculoskeletal: Positive for arthritis, back pain, joint pain, muscle weakness and myalgias. Neurological: Positive for light-headedness and numbness.[facility]10-31-2022 NoteSUBJECTIVE Chief Complaint Patient presents with Coronary Artery Disease Hypertension Peripheral Vascular Disease Lizzy Yee is a 76 y.o. male here for follow-up. HPI Patient here for 1 year follow up CAD, hypertension, and PVD. Had labs in September 2021 while at [facility] for colon surgery/hernia repair. He became [...] position changes. HOSPITAL COURSE (from 09/2021 at [facility]): Mr Yee is a 75 year [...] Coronary artery disease PVD (peripheral vascular disease) ([facility]) Hx of CABG Past Medical History: Diagnosis Date Coronary artery disease Diabetes mellitus ([facility]) Hypertension PVD (peripheral vascular disease) ([facility]) Sleep apnea Family History Problem [...] 0.4 mg by mo (more content not included)...[facility]10-06-2022 NoteCONSULTATION CONSULTATION DATE: 04/24/2022 This is a [...] approval to hold his Plavix from his interactive project manager. A refill for Baclofen 10 mg q.h.s. [...] knee osteoarthritis. The patient is in agreement.[facility] [id number] Note CONSULTATION CONSULTATION DATE: 03/25/2022 CHIEF COMPLAINT: 1. Low back pain. 2. Left knee pain. HISTORY OF PRESENT ILLNESS: This is a very pleasant, 76-year-old male, who is known to the pain practice remote. The patient had a right total knee replacement at [facility]. The patient is doing well with [...] patient understands and would like to proceed.[facility] 01-27-2022 NoteHNO ID: [id number] Author: Jus Bray MD Service: ? Author [...] Follow up anytime as needed. Jus Bray, [facility]07-11-2022 Nurse Note* Sarah Osmna MA - 01/27/2022 1:19 PM EDT What [...] Temperature: No Drains: No documented in this encounterWilson Health07-11-2022 History of Present illness Narrative* Jus Bray [...] needed. Jus Bray MD documented in this encounterWilson Health03-25-2022 Miscellaneous Notes* Telephone Encounter - Shan Savagechristinemarin - 10/11/2021 3:09 PM EDTSummary: IRB#: [id number] Research Outreach IRB# [id number], Qualitative Interviews in Postoperative Gastrointestinal Dysfunction (POGD). PI: Shilpa Storm MD, SANJIV, FASA. Outcomes Research Department. [facility] [place]. This is a research study note. Patient [...] there for his review. Shan Parham Research Cooker Chip [facility] [place] Outcomes Research Department documented in this encounterWilson Health03-24-2022 History of Present illness Narrative* Jay Gonzalez MD - 10/10/2021 1:37 PM EDT [facility] Abdominal [facility] - Follow Up Visit [...] CT imaging prior to visit. Subjective: Mr. eYe presents today now 16 days status post [...] the care that he received while at [facility]. Objective: AAOx3, NAD Non-labored respirations on room [...] Gonzalez MD 10/10/21, 1:37 PM General Surgery [facility] documented in this encounterWilson Health03-24-2022 History of Present illness Narrative* Jus Bray MD - 10/10/2021 11:00 AM EDT HPI Lizzy Yee is a 75 year old male here today for postop Open subtotal colectomy with stapled [id number] ileosigmoid anastomosis ventral herniorrhaphy with transversus abdominus [...] months Jus Bray MD documented in this encounterWilson Health03-24-2022 Nurse Note* Elena Ferrell MA - 10/10/2021 10:45 AM EDT What is the reason for your visit today? Follow up Who is your referring physician? Self Are you having poor oral intake? NO Have you had unintentional weight loss of 15 lbs/7 Kg in the last 3-6 months? NO Bowels: regular Wound: none Temperature: No Drains: No documented in this encounterWilson Health03-08-2022 History of Past illness Narrative* Problem Noted Date Resolved Date 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 documented as of this encounter (statuses as of 10/10/2021) [address]08-2022 History of Past illness Narrative* Problem Noted Date Resolved Date 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 documented as of this encounter (statuses as of 10/10/2021) [facility]03-08-2022 History of Past illness Narrative* Problem Noted Date Resolved Date 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 documented as of this encounter (statuses as of 10/11/2021) [address]08-2022 History of Past illness Narrative* Problem Noted Date Resolved Date 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 documented as of this encounter (statuses as of 02/05/2022) [facility]03-08-2022 History of Past illness Narrative* Problem Noted Date Resolved Date 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 documented as of this encounter (statuses as of 10/07/2022) [address]08-2022 History of Past illness Narrative* Problem Noted Date Resolved Date 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 documented as of this encounter (statuses as of 10/12/2022) [address]08-2022 History of Past illness Narrative* Problem Noted Date Resolved Date 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 documented as of this encounter (statuses as of 10/12/2022) [facility]03-08-2022 History of Past illness Narrative* Problem Noted Date Resolved Date 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 documented as of this encounter (statuses as of 10/16/2022) [facility]06-12-2021 NoteMR#: [id number] [facility] Pt. Name: Lizzy Yee Admitted: 12/26/2020 Discharged: 12/29/2020 Date of : 1945 Physician: Ty Avalos M.D. DISCHARGE SUMMARY [facility] Pt. Name: Kurt Yee Admitted: 12/26/20 Discharged: [...] CONDITION AT DISCHARGE: Stable DISPOSITION: Home with [facility] DISCHARGE INSTRUCTIONS: Take medications as prescribed, follow [...] Cano MD Date Trans: 12/29/2020 08:18 P/ BARRETT_JN:[id number] cc: Juancarlos Cuenca D.O. [address] [place] [id number] [facility] note No data available for this section [facility]* Diagnosis Ventral incisional hernia- Primary documented in this encounter [facility]* Diagnosis Polyposis of colon- Primary Benign neoplasm of colon documented in this encounter [facility] note* Diagnosis Polyposis of colon- Primary Benign neoplasm of colon Incisional hernia, without obstruction or gangrene Incisional hernia without mention of obstruction or gangrene documented in this encounter [facility] noteNo InformationNortFairmount Behavioral Health System [employer] Other Evaluation note* Diagnosis Ventral incisional hernia documented in this encounter [facility] note* Diagnosis Ventral incisional hernia- Primary documented in this encounter [facility] general Narrative - Reported* Type Description [...] HEMICOLECTOMY 2003 Hospitalization History SEE SURGICAL HX [employer] [facility] Narrative - Reported* Type Description Date [...] Colonoscopy 12/2022 Hospitalization History SEE SURGICAL HX [employer] Other History general Narrative - Reported* Type [...] anaya 03/2023 Hospitalization History SEE SURGICAL HX [employer] Other Hospital Discharge instructions No data available for this section [facility] Hospital[facility] note No data available for this section [facility] HospitalReason for referral (narrative)* Reason 10/09/22 Referral for carotid artery stenosis Diagnosis 1 Left carotid artery stenosis (I65.22) Referral Organization [facility] nemo Referring Provider First Name Juancarlos Referring Provider Last Name Bang Referring Provider Specialty Internal Me dicine Referred Organization [facility] Referred Provider Jyoti Mccurdy Referred Address [address] [place], [place],[address] Referred Provider Specialty Vascular Ruslan kajal Referral Priority Routine Referral Appointment Date 2022-10-09 General Notes Mr. Hooper is being r eferred for carotid artery stenosis. He recently completed carotid artery US at [facility], which revealed 87% left carotid bulb stenosis. The ICA velocities are not elevated, which was suggested to be due to hemodynamically significant stenosis in the left bulb. Seema Jaquez 09/23/2022 01:11:23 PM >received today, attachments made, referral faxed Janae Fulton 09/29/2022 02:11:56 PM > Patient is scheduled on 10/09 at 10 a.m. at [facility] Clinical Notes Mr. Hooper is being r eferred for further evaluation and treatment of left carotid artery stenosis. He has multiple risk factors, including HTN, HLD, DM and PAD. He has no history of TIA or CVA. He denies diplopia, loss of vision, dysarthria, facial droop or unilateral extremity weakness. F: [id number] [employer] Other Summary Purpose Family History No Family History Records FoundNo Family History Records FoundNo Family History Records FoundNo Family History Records FoundNo Family History Records FoundNo Family History Records FoundNo Family History Records FoundNo Family History Records FoundNo Family History Records Found Advance Directives No Advanced Directives Records FoundDocuments on File Type Date Recorded Patient Trim Carpenter Expl anation Advance Directive(s) 09/24/2021 8:40 AM Advance Directive(s) 06/07/2021 10:19 AM Advance Directive(s) 05/15/2021 3:36 PM M ain Documents on File Type Date Recorded Patient Trim Carpenter Expl anation Advance Directive(s) 09/24/2021 8:40 AM Advance Directive(s) 06/07/2021 10:19 AM Advance Directive(s) 05/15/2021 3:36 PM M ain Documents on File Type Date Recorded Patient Trim Carpenter Expl anation Advance Directive(s) 09/24/2021 8:40 AM Documents on File Type Date Recorded Patient Trim Carpenter Expl anation Advance Directive(s) 09/24/2021 8:40 AM Reason for Referral Specialty Diagnoses / Procedures Referred By Contac t Referred To Contact CT IMAGING Diagnoses Ventral incisional hernia Procedures CT ABD/PEL WO IVCON CT ABD & PELVIS W/O CONTRAST Jay Gonzalez MD [address] [place] [address] Ct Imaging Referral ID Status Reason Start Date Expiration Date Visits Requested Visits Authorized [id number] Pending Review Auto-Generat ed Referral 10/10/2022 11/09/2022 1 1 Referral ID Status Reason Start Date Expiration Date V isits Requested Visits Authorized [id number] Closed Auto-Generate d Referral 10/10/2022 11/09/2022 1 1 Specialty Diagnoses / Procedures Referred By Olegario gonsalves Referred To Contact CT IMAGING Diagnoses Ventral incisional hernia Procedures CT ABD/PEL WO IVCON CT ABD & [place] [address] [place] [address] Ct Imaging Referral ID Status Reason Start Date Expiration Date Visits Requested Visits Authorized [id number] Pending Review Auto-Generat ed Referral 10/16/2022 11/15/2023 1 1 Additional Source Comments (unrecognized sect ion and content) No Status Records FoundNo Status Records FoundNo Status Records FoundNo Status Records FoundNo Status Records FoundNo Status Records FoundNo Status Records FoundNo Status Records FoundNo Status Records Found INFORMATION SOURCE (unrecogn ized section and content) DATE CREATED AUTHOR 03/11/2021 [facility] DATE CREATED AUTHOR AUTHOR'S ORGANIZ ATION 10/13/2022 [facility] DATE CREATED AUTHOR AUTHOR'S ORGANIZ ATION 10/21/2022 [facility] DATE CREATED AUTHOR AUTHOR'S ORGANIZ ATION 12/29/2022 [facility] DATE CREATED AUTHOR AUTHOR'S ORGANIZ ATION 12/29/2022 [facility] DATE CREATED AUTHOR AUTHOR'S ORGANIZ ATION 04/26/2023 [facility] DATE CREATED AUTHOR AUTHOR'S ORGANIZ ATION 08/12/2023 [facility] DATE CREATED AUTHOR AUTHOR'S ORGANIZ ATION 08/28/2023 [facility] DATE CREATED AUTHOR AUTHOR'S ORGANIZ ATION 10/02/2023 [facility] EPIC Source Comments (unrecognize d section and content) In the event this informatio n is protected by the Federal Confidentiality of Alcohol and Drug Abuse Patient Records regulations: The Federal rules restrict any use of the information to criminally investigate or prosecute any alcohol or drug abuse patient.Wilson HealthIn the event this information is protected by the Federal Confidentiality of Alcohol and Drug Abuse Patient Records regulations: The Federal rules restrict any use of the information to criminally investigate or prosecute any alcohol or drug abuse patient.Wilson HealthIn the event this information is protected by the Federal Confidentiality of Alcohol and Drug Abuse Patient Records regulations: The Federal rules restrict any use of the information to criminally investigate or prosecute any alcohol or drug abuse patient.Wilson HealthIn the event this information is protected by the Federal Confidentiality of Alcohol and Drug Abuse Patient Records regulations: The Federal rules restrict any use of the information to criminally investigate or prosecute any alcohol or drug abuse patient.Wilson HealthIn the event this information is protected by the Federal Confidentiality of Alcohol and Drug Abuse Patient Records regulations: The Federal rules restrict any use of the information to criminally investigate or prosecute any alcohol or drug abuse patient.Wilson HealthIn the event this information is protected by the Federal Confidentiality of Alcohol and Drug Abuse Patient Records regulations: The Federal rules restrict any use of the information to criminally investigate or prosecute any alcohol or drug abuse patient.Wilson HealthIn the event this information is protected by the Federal Confidentiality of Alcohol and Drug Abuse Patient Records regulations: The Federal rules restrict any use of the information to criminally investigate or prosecute any alcohol or drug abuse patient.Wilson HealthIn the event this information is protected by the Federal Confidentiality of Alcohol and Drug Abuse Patient Records regulations: The Federal rules restrict any use of the information to criminally investigate or prosecute any alcohol or drug abuse patient.[facility] Reason for Visit (unrecogniz ed section and content) Reason Comments Follow Up Reason Comments Follow Up Reason Onset Date Comments Research 10/11/2021 Reason Comments Established Patient Follow-Up Reason Comments Patient Question Specialty Diagnoses / Procedures Referred By Contac t Referred To Contact CT IMAGING Diagnoses Ventral incisional hernia Procedures CT ABD/PEL WO IVCON CT ABD & PELVIS W/O CONTRAST Jay Gonzalez MD [address] [place] [address] Ct Imaging Referral ID Status Reason Start Date Expiration Date V isits Requested Visits Authorized [id number] Closed Auto-Generate d Referral 10/10/2022 11/09/2022 1 1 Reason Comments Follow Up 1 year, ventral inci sional hernia Care Teams (unrecognized sec tion and content) 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 Relationship Specialty Start Date End Date Juancarlos Cuenca DO PCP - General Internal Medicine 10/23/14 [facility] [address] [place] [phone] Cardiology 09/13/21 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 Relationship Specialty Start Date End Date Juancarlos Cuenca DO PCP - General Internal Medicine 10/23/14 [facility] [address] [place] [phone] Cardiology 09/13/21 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 Relationship Specialty Start Date End Date Juancarlos Cuenca DO PCP - General Internal Medicine 10/23/14 [facility] [address] [place] [phone] Cardiology 09/13/21 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 Relationship Specialty Start Date End Date Juancarlos Cuenca DO PCP - General Internal Medicine 10/23/14 Pedro Richardson MD Cardiology 09/13/21 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 Relationship Specialty Start Date End Date Juancarlos Cuenca, PCP - General Internal Medicine 10/23/14 Pedro Richardson MD Cardiology 09/13/21 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 Relationship Specialty Start Date End Date Juancarlos Cuenca DO PCP - General Internal Medicine 10/23/14 Pedro Richardson MD Cardiology 09/13/21 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 Relationship Specialty Start Date End Date Juancarlos Cuenca DO PCP - General Internal Medicine 10/23/14 Pedro Richardson MD Cardiology 09/13/21 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 Relationship Specialty Start Date End Date Juancarlos [...] BE BASED ON THE PRIMARY CLINICAL RECORDS. [facility] [employer] [facility]. provides no warranty or guarantee of the accuracy or completeness of information in this document.
== END 2023-10-19 09:10 | disposition home or self-care (01) ==
LOC: CT 09:09
PROVIDERS: PCP Internal Medicine
DX: R10.13 Epigastric pain (principal); R74.01 Elevation of levels of liver transaminase levels; K43.2 Incisional hernia without obstruction or gangrene
CPT/HCPCS: 74176; 76705

== ENCOUNTER 2023-10-19 09:10 | Outpatient (OUT) | payer MEDICARE, SELFPAY ==
--- NOTE | 2023-10-19 09:20 | US_ITS ---
The [address] [address] Patient Name: LIZZY BURK MRN: [id number] date: 1945 Sex: M Assigned Patient Location: US Current Patient Location: CT Accession/Order Number: [id number] Exam Date: 10/19/2023 09:21 Report Date: 10/19/2023 12:26 At the request of: GARY CUENCA Procedure: US right upper quadrant EXAM: US right upper quadrant HISTORY: . Transaminasemia Epigastric pain R74.01, R10.13 . COMPARISON: 02/02/2023 TECHNIQUE: Grayscale and color imaging was performed FINDINGS: The pancreas is grossly unremarkable. Scanning of the liver demonstrates a liver to be normal in size. No masses are noted. Color-flow is noted in the portal and hepatic veins. The gallbladder appears normal with no stones or sludge identified. Common bile duct measures 9 mm. Right kidney measures 10.8 x 5.3 x 5.4 cm. No solid renal cortical masses or hydronephrosis is noted. US/US right upper quadrant IMPRESSION: 1. Common bile duct is dilated measuring 9 mm. On the previous exam common bile duct measured 4 mm. Clinical correlation is suggested. MRCP could be performed for further evaluation if clinically indicated. 2. The remainder the right upper quadrant was unremarkable. Electronically authenticated by: LANA BINGHAM Date: 10/19/2023 12:26
--- OUTSIDE RECORDS SUMMARY | 2023-10-19 09:28 | XMS_ITS | CCD ---
Author Organization [facility] Care Team Providers Care Is Technician Name Role Phone JUANCARLOS CUENCA Referring Unavailable JUANCARLOS CUENCA Primary Care Unavailable Delonte Webb Admitting Unavailable Delonte Webb Attending Unavailable JUANCARLOS CUENCA Referring Unavailable TY AVALOS Surgeon Unavailable TY AVALOS Admitting Unavailable JUANCARLOS CUENCA Primary Care Unavailable TY AVALOS Attending Unavailable SD Procedure Practitioner Unavailab Juancarlos Delatorre DO Primary Care Provider Pedro Richardsonmed Unavailable [phone] Dylan VANESSA, [facility] Ahmed Unavailable JUANCARLOS CUENCA Primary Care [...] sources) Morphine; Translations: [morphine] Drug Allergy Unknown [facility] Repository (1 source) Morphine Drug Allergy 06-05-2023 [facility] Repository Medications Current Medications Medication Drug [...] aily. CPAP (8 sources) CPAP daily at [facility]. 0 Active Comment on above: daily [...] on above: Take 1 capsule by mo [facility] once daily. 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] Onset: 09-17-2022 Episodic Other and unspecified benign neoplasm (11 sources) Polyp of colon; Translations: [Polyp of colon] Onset: 06-07-2021 06-07-2021 Episodic Unclassified (1 source) LOW BACK PAIN, UNSPECIFIED; Translations: [LOW BACK PAIN, UNSPECIFIED] Onset: 04-24-2022 Results Test Name Value Interpretation Reference Range Facility Office Visiton 04-22-2023 Follow-up visit [id number] Vu Yee 1945 M Date Provider Department Center 04/22/2023 Flores-PEDRO RICHARDSON SONIA Michael Family History Problem Relation Age of Onset Coronary artery disease Mother Coronary artery disease Brother Family Status - Relation Status Age at Mother Brother Level of Service:24299 SD OFFICE/OUTPATIENT ESTABLISHED LOW MDM 20-29 MIN Normal [facility] Outside Colonoscopyon 2022 Outside Colonoscopy [id number] 0CD:127 Normal [facility] Reminderson 12-18-2022 Reminders - From: Amy Menon LPN To: N - Clinical; Sent: 12/18/2022 12:06:16 EDT Show up: 11/16/2025 07:00:00 EDT Subject: colonoscopy recall Due Date/Time: 12/17/2025 07:00:00 EDT Reminder/Recall Patient due for surveillance colonoscopy 12/17/2025. Normal [facility] POINT OF CARE GLUCOSEon 11-19 Glucose [Mass/Vol] 176 mg/dL Critically high 74-106 [facility] Comment on above: Performed By: #### P OCGLUC #### [facility] [address] [address] [address] Rojelio Kingsley POINT OF CARE GLUCOSEon 11-19 Glucose [Mass/Vol] 157 mg/dL Critically high 74-106 [facility] Comment on above: Performed By: #### P OCGLUC #### [facility] [address] [address] [address] Rojelio Kingsley Consent for Procedure/Surger yon 12-03-2022 Consent for Procedure/Surgery [id number] 0CD:127 Normal [facility] Physician Referralon 023 Physician Referral [id number] 0CD:127 Normal [facility] General Surgery Office/Clini c Noteon 12-02-2022 [...] anastomosis and ventral hernia repair 09/2021 at [facility], they recommend yearly surveillance sigmoidoscopies; patient [...] 1 tab(s), (more content not included)... Normal [facility] Comment on above: Result Comment: Elec tronically Signed By: PELON VANESSA, Nya Nicholson\Date and Time Signed: 12/02/22 11:37 EDT POINT OF CARE GLUCOSEon 04-2 Glucose [Mass/Vol] 121 mg/dL Critically high 74-106 [facility] Comment on above: Performed By: #### P OCGLUC #### [facility] [address] [address] [address] Rojelio Kingsley CNOVon 10-16-2022 CNOV Office Visit ([facility] ) LIZZY YEE ([id number]) 1945 M Date Time Provider Department 10/16/22 1:20 PM JAY GONZALEZ [facility] During your visit today, we recorded the [...] Jay Gonzalez MD 10/16/2022 3:05 PM Signed [facility] Abdominal [facility] Health - Follow Up Visit [...] Gonzalez MD 10/16/22, 2:45 PM General Surgery [facility] Allergies As of Date: 10/16/2022 (No Known Allergies) Date Reviewed: 10/16/2022 Reviewed by: Destiny Zapata MA - Fully Assessed Reason for Visit: Follow Up [171] Cmt: 1 year, ventral incisional hernia Primary Visit Diagnosis:Ventral incisional hernia [K43.2] Order(s):CT ABD/PEL WO IVCON [[id number]] Order #: [id number] FUTURE enteric contrast (will be provided with [...] without long-t (more content not included)... [facility] HNO ID: [id number] Author: RT Marisa(R) Service: Radiology Author Type: [...] RT Marisa(R) October 11, 2022 10:29 AM [facility] CT ABD/PEL WO IVCONon 2022 CT ABD/PEL WO IVCON * * *Final Report* * * DATE OF EXAM: Oct 11 2022 10:30AM [facility] 0531 - CT ABD/PEL WO [...] site. Lower thorax: Lower lungs are clear. Physical Fitness Teacher (topogram) images: Unremarkable. IMPRESSION: Midline fat-containing upper abdominal hernia. Stationary Steam Engineer: PSCB Transcribe Date/Time: Oct 13 2022 7:57A Dictated by : YANICK RIVAS MD This examination was interpreted and the report reviewed and electronically signed by: YANICK RIVAS MD on Oct 13 2022 8:06AM EST [id number] [facility] 10-06-2022 [facility] Telephone ([facility]) LIZZY YEE ([id number]) 1945 M Date Time Provider Department 10/06/22 JAY GONZALEZ [facility] During your visit today, we recorded the following information about you: Anjelica Harsh 10/06/2022 3:09 PM Signed Pt's called he is going in for a CT scan on Thursday does he need to have a creatinine blood level, says he had one within the last month or so at a non cc facility. PH: [phone] Efrain Zamarripa RN 10/07/2022 10:43 AM Signed Returned call, went to voicemail. Left message that the CT has been ordered without contrast. Left office number for questions or concerns. Allergies As of Date: 10/06/2022 (No Known Allergies) Date Reviewed: 01/27/2022 Reviewed by: Sarah Osman MA - Fully Assessed Reason for Visit: Patient Question [0057] Prescriptions as of 10/07/2022 - lisinopril (ZESTRIL, [...] Status:Closed by EFRAIN ZAMARRIPA on 10/07/22 Normal [facility] Consent for Procedure/Surger yon 09-17-2022 Consent for Procedure/Surgery [id number] 0CD:127 Normal [facility] RAD - Ultrasound Reporton RAD - Ultrasound Report [id number] 0CD:127 Normal [facility] Ambulatory Visit Summaryon 0 09-16-2022 Ambulatory [...] no longer receiving treatment for. Hyperlipidemia Rajani [facility] Ambulatory Visit Summary LIZZY YEE :1945 [...] no longer receiving treatment for. Hyperlipidemia Normal [facility] General Surgery Office/Clini c Noteon 09-16-2022 [...] anastomosis and ventral hernia repair 09/2021 at [facility]; requires yearly flexible sigmoidoscopy for surveillance. [...] Oral, Nathalie (more content not included)... Normal [facility] Comment on above: Result Comment: Elec tronically Signed By: PELON VANESSA, Nya Nicholson\Date and Time Signed: 09/16/22 11:17 EST Alanine Aminotransferaseon 0 - ALT [Catalytic activity/Vol] 30 U/L Normal 16-63 [employer] Other Comment on above: Performed By: #### B MP, ALT, LIPID #### [facility] [address] [address] [address] Rojelio Kingsley Basic Metabolic Panelon 08-21 Calcium [Mass/Vol] 9.4813692 mg/dL 8.5-10 .1 mg/dL [employer] Other CO2 [Moles/Vol] 25.00894587 mmol/L 21.0-3 2.0 mmol/L [employer] Other Creatinine [Mass/Vol] 1.06266907 mg/dL Critically high 0.70-1.30 mg/dL [employer] Other Potassium [Moles/Vol] 4.40150787 mmol/L 3 .5-5.1 mmol/L [employer] Other Urea nitrogen [Mass/Vol] 16.3396787 mg/dL 7.0-18.0 mg/dL [employer] Other Basic Metabolic Panel see note Nor [employer] Other Basic Metabolic Panel 141 mmol/L 136-14 5 mmol/L [employer] Other Basic Metabolic Panel 134 mg/dL Critically high 74-106 mg /dL [employer] Other Basic Metabolic Panel 51 mL/min/1.73m2 Critically low >=60 mL/min/1.73m 2 [employer] Other Basic Metabolic Panel >60 mL/min/1.73m2 > =60 mL/min/1.73m 2 [employer] Other Anion gap [Moles/Vol] 15.2 mmol/L [facility] [employer] Other Comment on above: Performed By: #### B MP, ALT, LIPID #### [facility] [address] [place] [address] Dr. Rojelio Kingsley Chloride [Moles/Vol] 105 mmol/L Normal 98-[address] [facility] [employer] Other Comment on above: Performed By: #### B MP, ALT, LIPID #### [facility] [address] [place] [address] Dr. Rojelio Kingsley Urea nitrogen/Creatinine [Mass ratio] 11.8 mg/mg Normal [facility] [employer] Other Comment on above: Performed By: #### B MP, ALT, LIPID #### [facility] [address] [place] [address] Dr. Rojelio Kingsley CBC AUTO DIFFon 09-12-2022 BASO # 0.0 103/ul Normal 0.0-0.1 [facility] Comment on above: Performed By: #### C BC #### [facility] [address] [place] [address] Dr. Rojelio Kingsley Basophils/100 WBC (Bld) 0.4 % Normal 0.2-2.0 [facility] Comment on above: Performed By: #### C BC #### [facility] [address] [place] [address] Dr. Rojelio Kingsley EO # 0.3 103/ul Normal 0.0-0.7 [facility] Comment on above: Performed By: #### C BC #### [facility] [address] [place] [address] Dr. Rojelio Kingsley Eosinophils/100 WBC (Bld) 3.6 % Normal 0.9-7.0 [facility] Comment on above: Performed By: #### C BC #### [facility] [address] [place] [address] Dr. Rojelio Kingsley Erythrocyte distribution width (RBC) [Ratio] 14.1 % Normal 11.0-15.0 [facility] Comment on above: Performed By: #### C BC #### [facility] [address] [place] [address] Dr. Rojelio Kingsley Hematocrit (Bld) [Volume fraction] 40.1 % Critically low 42.0-54.0 [facility] Comment on above: Performed By: #### C BC #### [facility] [address] [place] [address] Dr. Rojelio Kingsley Hemoglobin (Bld) [Mass/Vol] 13.4 g/dL Critically low 14.0-18.0 [facility] Comment on above: Performed By: #### C BC #### [facility] [address] [place] [address] Dr. Rojelio Kingsley IG # 0.02 10e3/ul Normal 0.00-0.03 [facility] Comment on above: Performed By: #### C BC #### [facility] [address] [place] [address] Dr. Rojelio Kingsley IG % 0.2 % Normal 0.0-0.5 [facility] Comment on above: Performed By: #### C BC #### [facility] [address] [place] [address] Dr. Rojelio Kingsley LYMPH # 1.8 103/ul Normal 1.2-3.8 [facility] Comment on above: Performed By: #### C BC #### [facility] [address] [place] [address] Dr. Rojelio Kingsley Lymphocytes/100 WBC (Bld) 21.9 % Normal 20.5-60.0 [facility] Comment on above: Performed By: #### C BC #### [facility] [address] [place] [address] Dr. Roejlio Kingsley MANUAL DIFF REQ NO Normal [facility] Comment on above: Performed By: #### C BC #### [facility] [address] [place] [address] Dr. Rojelio Kingsley MCH (RBC) [Entitic mass] 30.6 pg Normal 25.9-34.0 [facility] Comment on above: Performed By: #### C BC #### [facility] [address] [place] [address] Dr. Rojelio Kingsley MCHC (RBC) [Mass/Vol] 33.4 g/dL Normal 29.9-35.2 [facility] Comment on above: Performed By: #### C BC #### [facility] [address] [place] [address] Dr. Rojelio Kingsley MCV (RBC) [Entitic vol] 91.6 fL Normal 80.0-94.0 [facility] Comment on above: Performed By: #### C BC #### [facility] [address] [place] [address] Dr. Rojelio Kingsley MONO # 0.8 103/ul Normal 0.3-0.8 [facility] Comment on above: Performed By: #### C BC #### [facility] [address] [place] [address] Dr. Rojelio Kingsley Monocytes/100 WBC (Bld) 9.3 % Normal 1.7-12.0 [facility] Comment on above: Performed By: #### C BC #### [facility] [address] [place] [address] Dr. Rojelio Kingsley NEUT # 5.4 103/ul Normal 1.4-6.5 [facility] Comment on above: Performed By: #### C BC #### [facility] [address] [place] [address] Dr. Rojelio Kingsley Neutrophils/100 WBC (Bld) 64.6 % Normal 43.0-75.0 [facility] Comment on above: Performed By: #### C BC #### [facility] [address] [place] [address] Dr. Rojelio Kingsley Platelet mean volume (Bld) [Entitic vol] 10.3 fL Normal 9.5-13.5 [facility] Comment on above: Performed By: #### C BC #### [facility] [address] [place] [address] Dr. Rojelio Kingsley PLT 214 103/ul Normal 150-450 [facility] Comment on above: Performed By: #### C BC #### [facility] [address] [address] [address] Rojelio Kingsley RBC 4.38 106/ul Critically low 4.70-6.10 [facility] Comment on above: Performed By: #### C BC #### [facility] [address] [address] [address] Rojelio Kingsley WBC 8.4 103/ul Normal 4.0-11.0 [facility] Comment on above: Performed By: #### C BC #### [facility] [address] [place] [address] Dr. Rojelio Kingsley GLYCOHEMOGLOBIN A1Con 2022 ADA RECOMMENDATION SEE BELOW Normal [facility] Comment on above: Result Comment: ADA RECOMMENDED LIMIT 4.0 - 6.0 ADA THERAPEUTIC TARGET < 7.0 ACTION SUGGESTED > 7.0 Performed By: #### P OCGLUC #### [facility] [address] [place] [address] Dr. Rojelio Kingsley Glucose [Mass/Vol] 169 mg/dL Normal [facility] Comment on above: Performed By: #### P OCGLUC #### [facility] [address] [place] [address] Dr. Rojelio Kingsley HbA1c (Bld) [Mass fraction] 7.5 % Critically high 4.5-6.2 [facility] Comment on above: Performed By: #### P OCGLUC #### [facility] [address] [place] [address] Dr. Rojelio Kingsley LIPID PROFILEon 09-12-2022 CHOL-HDL RATIO NORM SEE BELOW Normal [facility] Comment on above: Result Comment: 3.3 - 4.4 LOW RISK 4.4 - 7.1 AVERAGE RISK 7.1 - 11.0 MODERATE RISK >11.0 HIGH RISK Performed By: #### B MP, ALT, LIPID #### [facility] [address] [place] [address] Dr. Rojelio Kingsley Cholesterol in LDL [Mass/Vol] 31.2 mg/dL Normal [facility] Comment on above: Performed By: #### B MP, ALT, LIPID #### [facility] [address] [place] [address] Dr. Rojelio Kingsley HDL NORMAL > or = 60 mg/dl - LO W CARDIOVASCULAR RISK <40 mg/dl - HIGH CARDIOVASCULAR RISK Normal [facility] Comment on above: Performed By: #### B MP, ALT, LIPID #### [facility] [address] [place], [place] [address] Dr. Rojelio Kingsley LDL CALC NORMAL SEE BELOW Normal [facility] Comment on above: Result Comment: <100 mg/dl OPTIMAL 100 - 129 mg/dl NEAR OR ABOVE OPTIMAL 130 - 159 mg/dl BORDERLINE HIGH 160 - 189 mg/dl HIGH >190 mg/dl VERY HIGH Performed By: #### B MP, ALT, LIPID #### [facility] [address] [address] [address] Rojelio Kingsley VLDL CALC 40.8 mg/dL Normal [facility] Comment on above: Performed By: #### B MP, ALT, LIPID #### [facility] [address] [address] [address] Rojelio Kingsley Lipid Panelon 09-12-2022 Lipid Panel > or = 60 mg/dl - LO W CARDIOVASCULAR RISK <40 mg/dl - HIGH CARDIOVASCULAR RISK [employer] Other Lipid Panel SEE BELOW [employer] Other Lipid Panel 31.2 mg/dL [employer] Other Lipid Panel 40.8 mg/dL [employer] Other Cholesterol [Mass/Vol] 115 mg/dL Normal <=200 [employer] Other Comment on above: Performed By: #### B MP, ALT, LIPID #### [facility] [address] [place], [place] [address] Dr. Rojelio Kingsley Cholesterol in HDL [Mass/Vol] 43 mg/dL Normal 40-60 [employer] Other Comment on above: Performed By: #### B MP, ALT, LIPID #### [facility] [address] [place], [place] [address] Dr. Rojelio Kingsley Cholesterol.total/Cho lesterol in HDL [Mass ratio] 2.7 {ratio} Normal [employer] Other Comment on above: Performed By: #### B MP, ALT, LIPID #### [facility] [address] [place] [address] Dr. Rojelio Kingsley Triglyceride [Mass/Vol] 204 mg/dL Critically high <=150 [employer] Other Comment on above: Performed By: #### B MP, ALT, LIPID #### [facility] [address] [address] [address] Rojelio Kingsley MICROALBUMIN, RAND URon - mALB 2.1 mg/L Normal <=30.0 [facility] Comment on above: Performed By: #### M ALBR #### [facility] [address] [place] [address] Dr. Rojelio Kingsley PROF CHEM 8 (BAS METB)on Calcium [Mass/Vol] 9.6 mg/dL Normal 8.5-10.1 [facility] Comment on above: Performed By: #### B MP, ALT, LIPID #### [facility] [address] [place] [address] Dr. Rojelio Kingsley CO2 [Moles/Vol] 25.1 mmol/L Normal 21.0-32.0 [facility] Comment on above: Performed By: #### B MP, ALT, LIPID #### [facility] [address] [place] [address] Dr. Rojelio Kingsley Creatinine [Mass/Vol] 1.36 mg/dL Critically high 0.70-1.30 [facility] Comment on above: Performed By: #### B MP, ALT, LIPID #### [facility] [address] [place] [address] Dr. Rojelio Kingsley EGFR-AF TRINIDADIAN >60 Normal >=60 [facility] Comment on above: Performed By: #### B MP, ALT, LIPID #### [facility] [address] [place] [address] Dr. Rojelio Kingsley EGFR-NON AF TRINIDADIAN 51 mL/min/1.73m2 Critically low >=60 [facility] Comment on above: Performed By: #### B MP, ALT, LIPID #### [facility] [address] [address] [address] Rojelio Kingsley Glucose [Mass/Vol] 134 mg/dL Critically high 74-106 [facility] Comment on above: Performed By: #### B MP, ALT, LIPID #### [facility] [address] [address] [address] Rojelio Kingsley Potassium [Moles/Vol] 4.3 mmol/L Normal 3.5-5.1 [facility] Comment on above: Performed By: #### B MP, ALT, LIPID #### [facility] [address] [address] [address] Rojelio Kingsley Sodium [Moles/Vol] 141 mmol/L Normal 136-145 [facility] Comment on above: Performed By: #### B MP, ALT, LIPID #### [facility] [address] [address] [address] Rojelio Kingsley Urea nitrogen [Mass/Vol] 16.0 mg/dL Normal 7.0-18.0 [facility] Comment on above: Performed By: #### B MP, ALT, LIPID #### [facility] [address] [address] [address] Rojelio Kingsley US CAROTID ART BILon [...] GABY PADILLA Date: 2022-09-12 15:22 Normal [facility] US CAROTID ART ZHENG [employer] Other Orders Onlyon 07-24-2022 Orders Only [id number] Vu Yee 1945 M Date Provider Department Center 07/24/2022 ZOFIA MARTINO [facility] Family History Problem Relation Age of Onset Coronary artery disease Mother Coronary artery disease Brother Family Status - Relation Status Age at Mother Brother Normal [facility] POINT OF CARE GLUCOSEon 06-19 Glucose [Mass/Vol] 106 mg/dL Normal 74-106 [facility] Comment on above: Performed By: #### P OCGLUC #### [facility] [address] [place], [place] [address] Dr. Rojelio Kingsley Covid-19 PCR ([facility])on SARS-CoV-2 (COVID-19) RNA MITCHELL+probe Ql (Unsp spec) Not detected Normal NOT DETECTED [facility] Comment on above: Result Comment: This test is not yet approved or cleared by the [place] FDA. When there are no FDA-approved or cleared tests available, and other criteria are met, FDA can make tests available under an emergency access mechanism called an Emergency Use Authorization (EUA). The EUA for this test is supported by the Dredge Lever Operator of Health and Human Service's (HHS's) declaration [...] SARS-CoV-2. Performed By: #### P OCGLUC #### [facility] [address] [place], [place] [address] Dr. Rojelio Kingsley 29on 05-19-2022 29 Addended by: MARINO MOE on: 05/19/2022 03:14 PM Modules accepted: Level of Service Normal [facility] Follow-Upon 05-19-2022 Follow-Up [id number] Vu Yee 1945 M Date Provider Department Center 05/19/2022 MARINO GRAVES SONIA [facility] Family History Problem Relation Age of Onset Coronary artery disease Mother Coronary artery disease Brother Family Status - Relation Status Age at Mother Brother Level of Service:35422 SD OFFICE/OUTPATIENT ESTABLISHED LOW MDM 20-29 MIN Reason for Visit and Comments: Coronary Artery Disease [187] Hypertension [883720] Peripheral Vascular Disease [458] Normal [facility] POINT OF CARE GLUCOSEon 04-20 Glucose [Mass/Vol] 129 mg/dL Critically high 74-106 [facility] Comment on above: Performed By: #### P OCGLUC #### [facility] [address] [address] [address] Rojelio Kingsley POINT OF CARE GLUCOSEon 03-21 Glucose [Mass/Vol] 116 mg/dL Critically high 74-106 [facility] Comment on above: Performed By: #### P OCGLUC #### [facility] [address] [address] [address] Rojelio Kingsley XR LSPINE 2_3 VIEWSon [...] GABY PADILLA Date: 2022-03-05 13:06 Normal [facility] CBC AUTO DIFFon 02-22-2022 BASO # 0.0 103/ul Normal 0.0-0.1 [facility] Comment on above: Performed By: #### P OCGLUC #### [facility] [address] [address] [address] Rojelio Kingsley Basophils/100 WBC (Bld) 0.4 % Normal 0.2-2.0 [facility] Comment on above: Performed By: #### P OCGLUC #### [facility] [address] [address] [address] Rojelio Kingsley EO # 0.3 103/ul Normal 0.0-0.7 [facility] Comment on above: Performed By: #### P OCGLUC #### [facility] [address] [address] [address] Rojelio Kingsley Eosinophils/100 WBC (Bld) 3.0 % Normal 0.9-7.0 [facility] Comment on above: Performed By: #### P OCGLUC #### [facility] [address] [address] [address] Rojelio Kingsley Erythrocyte distribution width (RBC) [Ratio] 14.4 % Normal 11.0-15.0 [facility] Comment on above: Performed By: #### P OCGLUC #### [facility] [address] [address] [address] Rojelio Kingsley Hematocrit (Bld) [Volume fraction] 37.1 % Critically low 42.0-54.0 [facility] Comment on above: Performed By: #### P OCGLUC #### [facility] [address] [address] [address] Rojelio Kingsley Hemoglobin (Bld) [Mass/Vol] 12.2 g/dL Critically low 14.0-18.0 [facility] Comment on above: Performed By: #### P OCGLUC #### [facility] [address] [address] [address] Rojelio Kingsley IG # 0.03 10e3/ul Normal 0.00-0.03 [facility] Comment on above: Performed By: #### P OCGLUC #### [facility] [address] [address] [address] Rojelio Kingsley IG % 0.4 % Normal 0.0-0.5 [facility] Comment on above: Performed By: #### P OCGLUC #### [facility] [address] [address] [address] Rojelio Kingsley LYMPH # 1.8 103/ul Normal 1.2-3.8 [facility] Comment on above: Performed By: #### P OCGLUC #### [facility] [address] [address] [address] Rojelio [place] Lymphocytes/100 WBC (Bld) 21.6 % Normal 20.5-60.0 [facility] Comment on above: Performed By: #### P OCGLUC #### [facility] [address] [place] [address] Dr. Rojelio Kingsley MANUAL DIFF REQ NO Normal [facility] Comment on above: Performed By: #### P OCGLUC #### [facility] [address] [place] [address] Dr. Rojelio Kingsley MCH (RBC) [Entitic mass] 30.0 pg Normal 25.9-34.0 [facility] Comment on above: Performed By: #### P OCGLUC #### [facility] [address] [place] [address] Dr. Rojelio Kingsley MCHC (RBC) [Mass/Vol] 32.9 g/dL Normal 29.9-35.2 [facility] Comment on above: Performed By: #### P OCGLUC #### [facility] [address] [place] [address] Dr. Rojelio Kingsley MCV (RBC) [Entitic vol] 91.4 fL Normal 80.0-94.0 [facility] Comment on above: Performed By: #### P OCGLUC #### [facility] [address] [place] [address] Dr. Rojelio Kingsley MONO # 0.7 103/ul Normal 0.3-0.8 [facility] Comment on above: Performed By: #### P OCGLUC #### [facility] [address] [address] [address] Rojelio Kingsley Monocytes/100 WBC (Bld) 8.4 % Normal 1.7-12.0 [facility] Comment on above: Performed By: #### P OCGLUC #### [facility] [address] [address] [address] Rojelio Kingsley NEUT # 5.5 103/ul Normal 1.4-6.5 [facility] Comment on above: Performed By: #### P OCGLUC #### [facility] [address] [address] [address] Rojelio Kingsley Neutrophils/100 WBC (Bld) 66.2 % Normal 43.0-75.0 [facility] Comment on above: Performed By: #### P OCGLUC #### [facility] [address] [place] [address] Dr. Rojelio Kingsley Platelet mean volume (Bld) [Entitic vol] 10.3 fL Normal 9.5-13.5 [facility] Comment on above: Performed By: #### P OCGLUC #### [facility] [address] [address] [address] Rojelio Kingsley PLT 202 103/ul Normal 150-450 [facility] Comment on above: Performed By: #### P OCGLUC #### [facility] [address] [address] [address] Rojelio Kingsley RBC 4.06 106/ul Critically low 4.70-6.10 [facility] Comment on above: Performed By: #### P OCGLUC #### [facility] [address] [place] [address] Dr. Rojelio Kingsley WBC 8.3 103/ul Normal 4.0-11.0 [facility] Comment on above: Performed By: #### P OCGLUC #### [facility] [address] [address] [address] Rojelio Kingsley GLYCOHEMOGLOBIN A1Con 2021 ADA RECOMMENDATION SEE BELOW Normal [facility] Comment on above: Result Comment: ADA RECOMMENDED LIMIT 4.0 - 6.0 ADA THERAPEUTIC TARGET < 7.0 ACTION SUGGESTED > 7.0 Performed By: #### A 1C #### [facility] [address] [address] [address] Rojelio Kingsley Glucose [Mass/Vol] 151 mg/dL Normal [facility] Comment on above: Performed By: #### A 1C #### [facility] [address] [place], [place] [address] Dr. Rojeilo Kingsley HbA1c (Bld) [Mass fraction] 6.9 % Critically high 4.5-6.2 [facility] Comment on above: Performed By: #### A 1C #### [facility] [address] [address] [address] Rojelio Kingsley Consultation Noteon 02-19-20 Consultation Note [id number]:[id number] Normal [facility] CNOVon 01-27-2022 [facility] Office Visit ([facility] ) LIZZY YEE ([id number]) 1945 M Date Time Provider Department 01/27/22 1:00 PM JUS BRAY [facility] During your visit today, we recorded [...] No Drains: No Referring Provider: JUS BRAY [[id number]] Allergies As of Date: 01/27/2022 (No Known Allergies) Date Reviewed: 01/27/2022 Reviewed by: Sarah Osman MA - Fully Assessed Reason for Visit: Established Patient Follow-Up [[id number]] Primary Visit Diagnosis:Polyposis of colon [K63.5] Other [...] Normal [facility] KNEE RIGHT 3 VWSon KNEE RIGHT 3 [facility] Department of Radiology [address] [place] [id number] ======== Patient Name: LIZZY YEE : 1945 Sex: M Age: Race: White Pt. Location: Patient Status: Ordered Date: 01/09/2021 1:10:00 PM Completed Date: 01/09/2021 01:11 PM Requesting Provider: TY AVALOS Attending Provider: Report Copy To: Signs & Symptoms: Z96.659 Presence of unspecified artificial knee joint I10 History: Comments: Exam: KNEE RIGHT 3 S ======== KNEE RIGHT 3 [facility] HISTORY: Knee replacement, follow-up. COMPARISON: 12/26/2020. IMPRESSION: 1. Redemonstrated total knee prosthesis, no hardware complication or acute abnormality. No significant joint effusion. Mild soft tissue swelling noted. Electronically signed: Mitul Banks. Transcribed by: [email or web address], User Resident: Electronically Signed by: MITUL BANKS @ 01/09/2021 08:47 PM Normal [facility] POC GLUCOSE LABon 12-29-2020 Glucose [Mass/Vol] 194 mg/dL High 70-100 [facility] Comment on above: Performed By: #### 8 [id number] #### [facility] [address] [place] [address], [place] Glucose [Mass/Vol] 125 mg/dL High 70-100 [facility] Comment on above: Performed By: #### 8 5499 #### [facility] [address] [place] [address], [place] POC GLUCOSE LABon 12-28-2020 Glucose [Mass/Vol] 197 mg/dL High 70-100 [facility] Comment on above: Performed By: #### 8 [id number] #### [facility] [address] [place] [address], [place] Glucose [Mass/Vol] 177 mg/dL High 70-100 [facility] Comment on above: Performed By: #### 8 [id number] #### [facility] [address] [place] [address], [place] Glucose [Mass/Vol] 215 mg/dL High 70-100 [facility] Comment on above: Performed By: #### 8 5499 #### [facility] [address] [place] [address], [place] Glucose [Mass/Vol] 152 mg/dL High 70-100 [facility] Comment on above: Performed By: #### 8 5499 #### [facility] [address] [place] [address], [place] BASIC METABOLIC PANELon 12-18 Calcium [Mass/Vol] 8.2 mg/dL Low 8.6-10.3 [facility] Comment on above: Order Comment: No: D o not add to previous draw Performed By: #### 8 5499 #### [facility] [address] [place] [address], [place] Chloride [Moles/Vol] 102 mmol/L Normal 98-107 [facility] Comment on above: Order Comment: No: D o not add to previous draw Performed By: #### 8 5499 #### [facility] [address] [place] [address], [place] CO2 [Moles/Vol] 23 mmol/L Normal 21-31 [facility] Comment on above: Order Comment: No: D o not add to previous draw Performed By: #### 8 5499 #### [facility] [address] [place] [address], [place] Creatinine [Mass/Vol] 0.97 mg/dL Normal 0.70-1.30 [facility] Comment on above: Order Comment: No: D o not add to previous draw Performed By: #### 8 5499 #### [facility] [address] [place] [address], [place] GFR/1.73 sq M.predicted among blacks MDRD (S/P/Bld) [Vol rate/Area] mL/min/{1.73_m2} Normal >60 [facility] Comment on above: Order Comment: No: D o not add to previous draw Result Comment: Calc ulation may not be valid for patients over 70 years Performed By: #### 8 5499 #### [facility] [address] [place] [address], [place] GFR/1.73 sq M.predicted among non-blacks MDRD (S/P/Bld) [Vol rate/Area] mL/min/{1.73_m2} Normal >60 [facility] Comment on above: Order Comment: No: D o not add to previous draw Result Comment: Calc ulation may not be valid for patients over 70 years Performed By: #### 8 5499 #### [facility] [address] [place] [address], [place] Glucose [Mass/Vol] 191 mg/dL High 70-100 [facility] Comment on above: Order Comment: No: D o not add to previous draw Performed By: #### 8 5499 #### [facility] [address] [place] [address], [facility] Potassium [Moles/Vol] 3.8 mmol/L Normal 3.5-5.1 [facility] Comment on above: Order Comment: No: D o not add to previous draw Performed By: #### 8 [id number] #### [facility] [address] [place] [address], [place] Sodium [Moles/Vol] 134 mmol/L Low 136-145 [facility] Comment on above: Order Comment: No: D o not add to previous draw Performed By: #### 8 5499 #### [facility] [address] [place] [address], [place] Urea nitrogen [Mass/Vol] 23 mg/dL Normal 7-25 [facility] Comment on above: Order Comment: No: D o not add to previous draw Performed By: #### 8 5499 #### [facility] [address] [place] [address], [facility] CBC COMPLETE BLOOD COUNTon 0 12-27-2020 Erythrocyte distribution width (RBC) [Ratio] 13.3 % Normal 11.5-15.0 [facility] Comment on above: Order Comment: No: D o not add to previous draw Performed By: #### 8 [id number] #### [facility] [address] [place] [address], [facility] Hematocrit (Bld) [Volume fraction] 35.4 % Low 39.0-50.0 [facility] Comment on above: Order Comment: No: D o not add to previous draw Performed By: #### 8 5499 #### [facility] [address] [place] [address], [facility] Hemoglobin (Bld) [Mass/Vol] 11.7 g/dL Low 13.0-17.0 [facility] Comment on above: Order Comment: No: D o not add to previous draw Performed By: #### 8 [id number] #### [facility] [address] [place] [id number], [facility] MCH (RBC) [Entitic mass] 31.2 pg Normal 27.0-33.0 [facility] Comment on above: Order Comment: No: D o not add to previous draw Performed By: #### 8 [id number] #### [facility] [address] [place] [id number], [facility] MCHC (RBC) [Mass/Vol] 33.1 g/dL Normal 32.0-35.0 [facility] Comment on above: Order Comment: No: D o not add to previous draw Performed By: #### 8 [id number] #### [facility] [address] [place] [id number], [facility] MCV (RBC) [Entitic vol] 94.4 fL Normal 82.0-98.0 [facility] Comment on above: Order Comment: No: D o not add to previous draw Performed By: #### 8 [id number] #### [facility] [address] [place] [id number], [facility] Nucleated RBC/100 WBC (Bld) [Ratio] 0 % Normal 0-0 [facility] Comment on above: Order Comment: No: D o not add to previous draw Performed By: #### 8 [id number] #### [facility] [address] [place] [id number], [facility] PLAT CNT 177 10*3/uL Normal 150-400 [facility] Comment on above: Order Comment: No: D o not add to previous draw Performed By: #### 8 [id number] #### [facility] [address] [place] [id number], [facility] RBC (Bld) [#/Vol] 3.75 10*6/uL Low 4.20-5.70 [facility] Comment on above: Order Comment: No: D o not add to previous draw Performed By: #### 8 [id number] #### [facility] [address] [place] [address], [facility] WBC (Bld) [#/Vol] 16.83 10*3/uL High 4.00-10.60 [facility] Comment on above: Order Comment: No: D o not add to previous draw Performed By: #### 8 5499 #### [facility] [address] Operative Reporton Operative Report MR#: [id number] I [facility] Pt. Name: Lizzy Yee Room #: [id number] Discharge Date: Birthdate: 1945 OPERATIVE REPORT DATE [...] cemented posterior stabilized total knee arthroplasty using [place] implants. COMPLICATIONS: None. TOTAL TOURNIQUET TIME: 92 [...] surgery. He has been cleared by his home help aide for his surgery as well. The patient signed the consent form. Site was marked. We proceed with IV antibiotics in the form of 2 g of Ancef within an hour of the incision. PROCEDURE IN DETAIL: After written consent obtained, site was marked. The patient was taken to the [facility] OR and was seen by [...] futu (more content not included)... Normal [facility] POC GLUCOSE LABon 12-27-2020 Glucose [Mass/Vol] 200 mg/dL High 70-100 [facility] Comment on above: Performed By: #### 8 [id number] #### [facility] [address] [place] [address], [place] Glucose [Mass/Vol] 186 mg/dL High 70-100 [facility] Comment on above: Performed By: #### 8 [id number] #### [facility] [address] [place] [address], [place] Glucose [Mass/Vol] 250 mg/dL High 70-100 [facility] Comment on above: Performed By: #### 8 [id number] #### [facility] [address] [place] [address], [place] Glucose [Mass/Vol] 177 mg/dL High 70-100 [facility] Comment on above: Performed By: #### 8 [id number] #### [facility] [address] [place] [address], [place] POC GLUCOSE LABon 12-26-2020 Glucose [Mass/Vol] 230 mg/dL High 70-100 [facility] Comment on above: Performed By: #### 8 [id number] #### [facility] [address] [place] [address], [place] Glucose [Mass/Vol] 278 mg/dL High 70-100 [facility] on above: Performed By: #### 8 5499 #### [address] [place] [address], [facility] Glucose [Mass/Vol] 174 mg/dL High 70-100 [facility] Comment on above: Performed By: #### 8 5499 #### [facility] [address] [facility] [place] [address], [place] Glucose [Mass/Vol] 146 mg/dL High 70-100 [facility] Comment on above: Performed By: #### 8 5499 #### [address] [place] [address], [facility] PORTABLE KNEE RIGHT 2 [facility] 12-26-2020 PORTABLE KNEE RIGHT 2 [facility] Department of Radiology [address] [place] [phone] ======== Patient Name: LIZZY YEE : 1945 Sex: M Age: Race: White Pt. Location: [place] [address] Patient Status: I Ordered Date: 12/26/2020 7:05:00 AM Completed Date: 12/26/2020 01:31 PM Requesting Provider: DANO CANO Attending Provider: HONG SCOTT Report Copy To: Signs & Symptoms: Post OP History: Comments: Hardware Evaluation, In PACU; Exam: PORTABLE KNEE RIGHT 2 [facility] ======== PORTABLE KNEE RIGHT 2 VWS [...] replacement. Electronically signed: José Thornton. Transcribed by: [email or web address], User Resident: JOSÉ THORNTON Electronically Signed by: JOSÉ THORNTON @ 12/26/2020 03:28 PM I personally read this/these film(s) with this resident Normal [facility] Comment on above: Order Comment: Hardw are Evaluation, In PACU; HIP RIGHT 1 OR 2 VWS WITH PE LVISon 10-05-2020 HIP RIGHT 1 OR 2 VWS WITH PELVIS [facility] Department of Radiology [address] [place] [phone] ======== Patient Name: LIZZY YEE : [...] narrowing. Electronically signed: Mitul Banks. Transcribed by: [email or web address], User Resident: Electronically Signed by: MITUL BANKS @ 10/05/2020 01:08 PM Normal [facility] Comment on above: Order Comment: Views (X-RAY, HIP): AP Pelvis, X-Table Lateral Hip , Weight Bearing?: Y KNEE LEFT 4VWSon 08-20-2020 KNEE LEFT 4VWS [facility] Department of Radiology [address] [place] [phone] ======== Patient Name: LIZZY YEE : 1945 Sex: M Age: Race: White Pt. Location: Patient Status: O Ordered Date: 08/20/2020 8:10:00 AM Completed Date: 08/20/2020 08:14 AM Requesting Provider: CEDRICK WILD Attending Provider: CEDRICK WILD Report Copy To: Signs & Symptoms: M25.569 Pain in unspecified knee I10 History: Blanca Comments: Views (X-RAY, KNEE): AP, Lateral, Tunnel, [place] , Weight Bearing?: Y Exam: KNEE LEFT 4VWS ======== KNEE LEFT 4VWS 08/20/2020 8:14 AM CLINICAL INDICATIONS: M25.569 Pain in unspecified knee I10 TECHNOLOGIST COMMENTS: Patient states having bilateral knee pain. QUESTION FOR THE RADIOLOGIST: Views (X-RAY, KNEE): AP, Lateral, Tunnel, [place] , Weight Bearing?: Y PROTOCOL: AP,Lateral,Tunnel and [...] reports Electronically signed: Ej Francisco. Transcribed by: [email or web address], User Resident: TAMERA MARIE Electronically Signed by: EJ FRANCISCO @ 08/20/2020 08:41 AM I personally read this/these film(s) with this resident Normal [facility] Comment on above: Order Comment: Views (X-RAY, KNEE): AP, Lateral, Tunnel, [place] , Weight Bearing?: Y KNEE RIGHT 4 [facility] 1 KNEE RIGHT 4 [facility] Department of Radiology [address] [place] [phone] ======== Patient Name: LIZZY YEE : 1945 Sex: M Age: Race: White Pt. Location: 84 Patient Status: O Ordered Date: 08/20/2020 8:10:00 AM Completed Date: 08/20/2020 08:14 AM Requesting Provider: CEDRICK WILD Attending Provider: CEDRICK WILD Report Copy To: Signs & Symptoms: M25.569 Pain in unspecified knee I10 History: [place] Comments: Views (X-RAY, KNEE): AP, Lateral, Tunnel, [place] , Weight Bearing?: Y Exam: KNEE RIGHT 4 [facility] ======== KNEE RIGHT 4 S 08/20/2020 8:14 AM SIGNS AND SYMPTOMS: M25.569 Pain in unspecified knee I10 TECHNOLOGIST COMMENTS: Patient states having bilateral knee pain. QUESTION FOR THE RADIOLOGIST: Views (X-RAY, KNEE): AP, Lateral, Tunnel, [place] , Weight Bearing?: Y PROTOCOL: AP,Lateral,Tunnel and [...] knee. Electronically signed: Ej Francisco. Transcribed by: [email or web address], User Resident: Electronically Signed by: EJ FRANCISCO @ 08/20/2020 08:30 AM Normal [facility] Comment on above: Order Comment: Views (X-RAY, KNEE): AP, Lateral, Tunnel, [place] , Weight Bearing?: Y Vital Signs Date Time Vital Sign Value Performing Clinician Facility 06-05-2023 10:00-0500 Body height 165.1 cm Juancarlos Cuenca Other [facility] Other 06-05-2023 10:00-0500 Body mass index (BMI) [Ratio] 39.87 kg/m2 Juancarlos Ball Other [facility] Other 06-05-2023 10:00-0500 Body weight 108.68 kg Juancarlos Ball Other [facility] Other 06-05-2023 10:00-0500 Diastolic blood pressure 71 mm[Hg] Juancarlos Ball Other [facility] Other 06-05-2023 10:00-0500 Respiratory rate 20 /min Juancarlos Ball Other [facility] Other 06-05-2023 10:00-0500 Systolic blood pressure 118 mm[Hg] Juancarlos Ball Other [facility] Other 05-06-2023 13:45-0400 Body height 165.1 cm Juancarlos Ball Other [facility] Other 05-06-2023 13:45-0400 Body mass index (BMI) [Ratio] 39.97 kg/m2 Juancarlos Ball Other [facility] Other 05-06-2023 13:45-0400 Body weight 108.95 kg Juancarlos Ball Other [facility] Other 05-06-2023 13:45-0400 Diastolic blood pressure 87 mm[Hg] Juancarlos Ball Other [facility] Other 05-06-2023 13:45-0400 Respiratory rate 16 /min Juancarlos Ball Other [facility] Other 05-06-2023 13:45-0400 Systolic blood pressure 158 mm[Hg] Juancarlos Ball Other [facility] Other 03-10-2023 11:00-0400 Body height 165.1 cm Juancarlos Ball Other [facility] Other 03-10-2023 11:00-0400 Body mass index (BMI) [Ratio] 39.3 kg/m2 Juancarlos Ball Other [facility] Other 03-10-2023 11:00-0400 Body weight 107.14 kg Juancarlos Ball Other [facility] Other 03-10-2023 11:00-0400 Diastolic blood pressure 67 mm[Hg] Juancarlos Ball Other [facility] Other 03-10-2023 11:00-0400 Respiratory rate 16 /min Juancarlos Ball Other [facility] Other 03-10-2023 11:00-0400 Systolic blood pressure 120 mm[Hg] Juancarlos Ball Other [facility] Other 10-16-2022 13:12-0400 Body temperature 97.11 [degF] Jay Gonzalez MD Work Phone: [facility] 10-16-2022 13:12-0400 Diastolic blood pressure 66 mm[Hg] Jay Gonzalez MD Work Phone: [facility] 10-16-2022 13:12-0400 Heart rate 51 /min Jay Gonzalez MD Work Phone: [facility] 10-16-2022 13:12-0400 SaO2% (BldA) [Mass fraction] 96 % Jay Gonzalez MD Work Phone: [facility] 10-16-2022 13:12-0400 Systolic blood pressure 143 mm[Hg] Jay Gonzalez MD Work Phone: [facility] 09-08-2022 13:30-0500 Body height 165.1 cm Juancarlos Ball Other [facility] Other 09-08-2022 13:30-0500 Body mass index (BMI) [Ratio] 39.33 kg/m2 Juancarlos Ball Other [facility] Other 09-08-2022 13:30-0500 Body weight 107.23 kg Juancarlos Ball Other [facility] Other 09-08-2022 13:30-0500 Diastolic blood pressure 70 mm[Hg] Juancarlos Ball Other [facility] Other 09-08-2022 13:30-0500 Respiratory rate 20 /min Juancarlos Ball Other [facility] Other 09-08-2022 13:30-0500 Systolic blood pressure 112 mm[Hg] Juancarlos Ball Other [facility] Other 01-27-2022 13:20-0400 Body height 165.1 cm Jus Bray MD Work Phone: [facility] 01-27-2022 13:20-0400 Body temperature 96.91 [degF] Jus Bray MD Work Phone: [facility] 01-27-2022 13:20-0400 Body weight 104.33 kg Jus Bray MD Work Phone: [facility] 01-27-2022 13:20-0400 Diastolic blood pressure 56 mm[Hg] Jus Bray MD Work Phone: [facility] 01-27-2022 13:20-0400 Heart rate 50 /min Jus Bray MD Work Phone: [facility] 01-27-2022 13:20-0400 SaO2% (BldA) [Mass fraction] 98 % Jus Bray MD Work Phone: [facility] 01-27-2022 13:20-0400 Systolic blood pressure 131 mm[Hg] Jus Bray MD Work Phone: [facility] 10-10-2021 10:46-0400 Body height 165.1 cm Jay Gonzalez MD Work Phone: [facility] 10-10-2021 10:46-0400 Body weight 102.51 kg Jay Gonzalez MD Work Phone: [facility] 10-10-2021 10:46-0400 Diastolic blood pressure 65 mm[Hg] Jay Gonzalez MD Work Phone: [facility] 10-10-2021 10:46-0400 Heart rate 76 /min Jay Gonzalez MD Work Phone: [facility] 10-10-2021 10:46-0400 Systolic blood pressure 137 mm[Hg] Jay Gonzalez MD Work Phone: [facility] 10-10-2021 10:44-0400 Body height 165.1 cm Jus Bray MD Work Phone: [facility] 10-10-2021 10:44-0400 Body weight 102.51 kg Jus Bray MD Work Phone: [facility] 10-10-2021 10:44-0400 Diastolic blood pressure 65 mm[Hg] Jus Bray MD Work Phone: [facility] 10-10-2021 10:44-0400 Heart rate 76 /min Jus Bray MD Work Phone: [facility] 10-10-2021 10:44-0400 SaO2% (BldA) [Mass fraction] 98 % Jus Bray MD Work Phone: [facility] 10-10-2021 10:44-0400 Systolic blood pressure 137 mm[Hg] Jus Bray MD Work Phone: [facility] Encounters Encounter Date Encounter Type Care Provider Facility Start: 10-01-2023 End: 10-01-2023 ambulatory ANGELA BINGHAM Not Available Start: 08-10-2023 (RD) Forensic Psychologist Nirmala James [facility] Start: 08-10-2023 End: 08-10-2023 ambulatory Juancarlos Cuenca [facility] Other Start: 08-03-2023 End: 08-04-2023 ambulatory Hanh Wade MD Facility:[facility] Start: 07-27-2023 End: 07-28-2023 ambulatory Hanh Wade MD Facility:[facility] Start: 06-17-2023 End: 06-17-2023 ambulatory Juancarlos Cuenca Other [facility] Other Start: 06-17-2023 Telephone encounter Juancarlos Ball [facility] Start: 06-16-2023 End: 06-16-2023 ambulatory Juancarlos Cuenca Other [facility] Other Start: 06-16-2023 Telephone encounter Juancarlos Ball [facility] Start: 06-09-2023 End: 06-09-2023 ambulatory Juancarlos Cuenca Other [facility] Other Start: 06-09-2023 Telephone encounter Juancarlos Ball [facility] Start: 06-08-2023 End: 06-08-2023 ambulatory Juancarlos Cuenca Other [facility] Other Start: 06-08-2023 Telephone encounter Juancarlos Ball [facility] Start: 06-07-2023 End: 06-07-2023 ambulatory Juancarlos Ball Other [facility] Other Start: 06-07-2023 Telephone encounter Juancarlos Ball [facility] Start: 06-05-2023 End: 06-05-2023 ambulatory Juancarlos Ball Other [facility] Other Start: 06-05-2023 Office outpatient vi sit 25 minutes Juancarlos Ball [facility] Start: 05-27-2023 End: 05-27-2023 ambulatory Juancarlos Ball Other [facility] Other Start: 05-27-2023 Telephone encounter Juancarlos Ball [facility] Start: 05-17-2023 End: 05-17-2023 ambulatory Juancarlos Ball Other [facility] Other Start: 05-17-2023 Telephone encounter Juancarlos Ball [facility] Start: 05-15-2023 End: 05-15-2023 ambulatory Juancarlos Ball Other [facility] Other Start: 05-15-2023 Telephone encounter Juancarlos Ball [facility] Start: 05-07-2023 End: 05-07-2023 ambulatory Juancarlos Ball Other [facility] Other Start: 05-07-2023 Telephone encounter Juancarlos Ball [facility] Start: 05-06-2023 End: 05-06-2023 ambulatory Juancarlos Ball Other [employer] Other Start: 05-06-2023 Office outpatient vi sit 25 minutes Juancarlos Ball [facility] Start: 05-06-2023 Telephone encounter Juancarlos Ball [facility] Start: 04-22-2023 End: 04-22-2023 ambulatory [facility] Start: 04-04-2023 End: 04-04-2023 ambulatory Juancarlos Ball Other [employer] Other Start: 04-04-2023 Telephone encounter Juancarlos Ball [facility] Start: 03-10-2023 End: 03-10-2023 ambulatory Juancarlos Ball Other [employer] Other Start: 03-10-2023 Office outpatient vi sit 25 minutes Juancarlos Ball [facility] Start: 12-24-2022 End: 12-24-2022 ambulatory Juancarlos Ball Other [employer] Other Start: 12-24-2022 Telephone encounter Juancarlos BELL [facility] Start: 12-17-2022 End: 12-18-[address] NYA BIRD . Facility:[facility] Start: 12-16-2022 End: 12-16-2022 ambulatory RAINA CRONINSHMIPATHKathy . Facility: Start: 12-02-2022 End: 12-03-2022 ambulatory Nya BIRD Facility: [place] Start: 11-28-2022 End: 11-29-2022 ambulatory MANAV CIROEUGENIA . Facility:[facility] Start: 11-28-2022 End: 11-29-2022 ambulatory NARENDRANATH LAKSHMIPATHY . Facility: Start: 11-11-2022 End: 11-11-2022 ambulatory NARENDRANATH LAKSHMIPATHY . Facility: Start: 10-28-2022 End: 10-29-[address] EVAN LAMAS . 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] Start: 10-06-2022 Telephone encounter Jay patel MD Work Phone: General Surgery Comment on above: Patient Question Start: 09-16-2022 Telephone encounter Juancarlos BELL [facility] Start: 09-16-2022 End: 09-17-2022 ambulatory Nya BIRD [employer] Other Start: 09-16-2022 End: 09-27-2022 Pre-admission assessment Nya BIRD [facility] Start: 09-12-2022 Telephone encounter Juancarlos Cuenca RAY G Bang [facility] Start: 09-12-2022 End: 09-13-[address] JUANCARLOS CUENCA [facility] [employer] Other Start: 09-08-2022 End: 09-08-2022 ambulatory Juancarlos Cuenca Other [facility] [employer] Other Start: 09-08-2022 Patient encounter procedure Juancarlos Bang Cuenca [facility] Start: 07-31-2022 End: 08-01-[address] EVAN LAMAS . Facility:[facility] Start: 07-03-2022 Encounter for preprocedural laboratory examination DR EVAN LAMAS . [facility] Start: 07-01-2022 End: 07-01-[address] EVAN LAMAS . Facility:[facility] Start: 06-27-2022 End: 06-28-[address] EVAN LAMAS . Facility:[facility] Start: 06-27-2022 End: 06-28-2022 Encounter for preprocedural laboratory examination DR EVAN LAMAS . Facility:[facility] Start: 05-29-2022 End: 05-30-[address] EVAN LAMAS . Facility:[facility] Start: 05-19-2022 End: 05-19-2022 ambulatory [facility] Start: 05-13-2022 End: 05-13-[address] [...] Start: 01-27-2022 End: 01-27-2022 ambulatory JUS BRAY Facility:[facility] Start: 01-27-2022 End: 01-27-2022 Patient encounter procedure Jus Bray MD Work Phone: Colorectal Surgery Comment on above: Polyposis of colon ( Primary Dx); Incisional hernia, without obstruction or gangrene Start: 10-11-2021 Telephone encounter Shilpa Storm MD Work Phone: [facility] Research Comment on above: Research Start: 10-10-2021 End: 10-10-2021 Patient encounter procedure Jay Gonzalez MD Work Phone: General Surgery Comment on above: Ventral incisional h ernia (Primary Dx) Polyposis of colon ( Primary Dx) Start: 12-26-2020 End: 12-29-2020 ambulatory JUANCARLOS CUENCA Facility:[facility] Start: 10-19-2020 End: 10-20-2020 ambulatory JUANCARLOS CUENCA Facility:[facility] Procedures Date Procedure Procedure Detail [...] med nerve Nya BIRD Through knee amputation Montaan SAVAGEL Plan of Treatment Date Care Activity Detail Author Start: 10-10-2022 End: 11-09-2022 Ct abdomen & pelvis w/o contrast material CT ABD/PEL WO IVCON Radiology Routine Ventral incisional hernia Expected: 10/10/2022, Expires: 11/09/2022 [facility] Work Phone: Comment on above: Expected: 10/10/2022 , Expires: 11/09/2022 Start: 07-20-2022 ADVANCE DIRECTIVE DISCUSSION ADVANCE DIRECTIVE DISCUSSION [facility] Start: 07-20-2022 DEPRESSION ASSESSMENT DEPRESSION ASS ESSMENT [facility] Start: 03-20-2022 Influenza vaccination INFLUENZA (#1) [facility] Start: 03-13-2022 Hemoglobin A1c/Hemoglobin.total in Blood HBA1C [facility] Start: 01-04-2022 COVID-19 VACCINE (5 - Booster for Pfizer series) COVID-19 VACCINE (5 - Booster for Pfizer series) [facility] Start: 07-20-2021 ADVANCE DIRECTIVE DISCUSSION ADVANCE DIRECTIVE DISCUSSION [facility] Start: 2009 PNEUMOVAX AGE 65 AND OVER WITH 5YR LOOKBACK (#1) PNEUMOVAX AGE 65 AND OVER WITH 5YR LOOKBACK (#1) [facility] Start: 1994 SHINGRIX VACCINE (1 of 2) SHINGRIX VACCINE (1 of 2) [facility] Start: 12-31-1963 Urine microalbumin profile DTAP,TDAP,TD (1 - Tdap) [facility] Start: 1962 ANNUAL PCP TEAM EVENT MARKETING SPECIALIST MACY DISEASE VISIT ANNUAL PCP TEAM CHRONIC DISEASE VISIT [facility] Start: 1962 BP CONTROLLED (<130/80) BP CON TROLLED (<130/80) [facility] Start: 1962 Hepatitis B surface antibody level LDL CHOLESTEROL [facility] Start: 1962 HEPATITIS C SCREENING HEPATITIS C SC REENING [facility] Start: 1956 Adult depression screening assessment DEPRESSION SCREENING [facility] Start: 1954 3 comp foot exam completed DIABETIC FOOT EXAM [facility] Start: 1954 Hepatitis B screening URINE ALBUMIN:CREATININE RATIO [facility] Start: 1954 Hepatitis C antibody , confirmatory test DILATED RETINAL EXAM [facility] Start: 1950 PNEUMOCOCCAL: 65+ (1 - PCV) PNEUMOCOCCAL: 65+ (1 - PCV) [facility] End: 10-11-2022 Ct abdomen & pelvis w/o contrast material [facility] Work Phone: Comment on above: 1 Occurrences starti ng 10/11/2022 until 10/11/2022 End: 11-15-2023 Ct abdomen & pelvis w/o contrast material CT ABD/PEL WO IVCON Radiology Routine Ventral incisional hernia 1 Occurrences starting 10/16/2022 until 11/15/2023 [facility] Work Phone: Comment on above: 1 Occurrences starti ng 10/16/2022 until 11/15/2023 [facility] Immunizations Immunization Date Immunization Notes Care Provider Fa mireal 05-20-2022 influenza virus vaccine, unspecified formulation Nya BIRD [facility] [place] 05-16-2022 influenza, high dose seasonal, preservative-free Juancarlos Cuenca Other [employer] Other 05-16-2022 influenza virus vaccine, split virus (incl. purified surface antigen) Juancarlos Cuenca Other [facility] [employer] Other 04-15-2022 SARS-CoV-2 (COVID-19 ) [id number] Nya NILL [facility] 11-09-2021 COVID-19 Vaccine Pfi zer - Documentation Purposes Only Juancarlos Cuenca Other [employer] Other 11-09-2021 SARS-CoV-2 mRNA (fdixkhjutcl-pfjj-dxdux se) vaccine Nya NILL [facility] 04-19-2021 SARS-CoV-2 (COVID-19 ) mRNA BNT-162b2 vax Nya NILL [facility] Comment on above: Result Comment: 2022: [id number] 09-05-2020 SARS-CoV-2 (COVID-19 ) mRNA BNT-162b2 vax Nya SAVAGEL [facility] Comment on above: Result Comment: 2022: [id number] 08-15-2020 COVID-19 Vaccine Moderna - Documentation Purposes Only Juancarlos Cuenca Other [employer] Other 08-15-2020 SARS-CoV-2 (COVID-19 ) mRNA BNT-162b2 vax Nya SAVAGEL [facility] Comment on above: Result Comment: 2022: [id number] 03-28-2020 influenza virus vaccine, split virus (incl. purified surface antigen) Juancarlos Cuenca Other [employer] Other 05-17-2019 influenza virus vaccine, split virus (incl. purified surface antigen) Juancarlos Cuenca Other [employer] Other 05-13-2018 influenza virus vaccine, split virus (incl. purified surface antigen) Juancarlos Cuenca Other [employer] Other 04-25-2015 influenza virus vaccine, split virus (incl. purified surface antigen) Juancarlos Cuenca Other [employer] Other 04-25-2015 pneumococcal conjuga te vaccine, 13 valent Juancarlos Cuenca Other [employer] Other 04-19-2014 pneumococcal polysaccharide vaccine, 23 valent Juancarlos Cuenca Other [employer] Other 04-20-2013 tetanus and diphther ia toxoids, adsorbed, preservative free, for adult use (5 Lf of tetanus toxoid and 2 Lf of diphtheria toxoid) Juancarlos Cuenca Other [employer] Other 04-21-2012 pneumococcal polysaccharide vaccine, 23 valent Juancarlos Cuenca Other [employer] Other Payers Date Payer Category Payer Self-pay 2023 Unknown 2020 Private Health Insurance [facility] AARP SUPPLEMENT [id number] 2020-Present [phone] [address] [place] [address] Indemnity [id number] 2020 Private Health Insurance [facility] AARP SUPPLEMENT [id number] 2020-Present [phone] [address] [place] [address] Indemnity [id number] 2009 Medicare MEDICARE MEDICAR E A AND B [id number] 2009-Present [phone] [place] [address] Medicare [id number] 2009 Medicare [id number] 1959 Medicare [id number] 1959 Unknown [id number] 1944 Unknown [id number] 2.16.840.1.338329.3.579.2 .647 1944 Unknown [id number] 2.16.840.1.289623.3.579.2 .647 1944 Unknown [id number] 2.16.840.1.429516.3.579.2 .593 1944 Unknown [id number] 2.16.840.1.625636.3.579.2 .593 1944 Unknown [id number] 2.16.840.1.595962.3.579.2 .593 1944 Unknown [id number] 2.16.840.1.400970.3.579.2 .593 1944 Unknown [id number] 2.16.840.1.574922.3.579.2 .593 1944 Unknown [id number] 2.16.840.1.732191.3.579.2 .593 1944 Unknown [id number] 2.16.840.1.978850.3.579.2 .593 1944 Unknown [id number] 2.16.840.1.364470.3.579.2 .593 1944 Unknown [id number] 2.16.840.1.979239.3.579.2 .593 1944 Unknown [id number] 2.16.840.1.075249.3.579.2 .593 1944 Unknown [id number] 2.16.840.1.922308.3.579.2 .593 1944 Unknown [id number] 2.16.840.1.552672.3.579.2 .593 1944 Unknown [id number] 2.16.840.1.669915.3.579.2 .593 1944 Unknown [id number] 2.16.840.1.891600.3.579.2 .593 1944 Unknown [id number] 2.16.840.1.776838.3.579.2 .593 1944 Unknown [id number] 2.16.840.1.027727.3.579.2 .593 1944 Unknown [id number] 2.16.840.1.448257.3.579.2 .593 1944 Unknown [id number] 2.840.1.705921.3.579.2 .593 1944 Unknown [id number] 2.16.840.1.498401.3.579.2 .593 1944 Unknown [id number] 2..840.1.899727.3.579.2 .727 1944 Unknown [id number] 2.16.840.1.512012.3.579.2 .727 1944 Unknown [id number] 2.840.1.188328.3.579.2 .727 1944 Unknown [id number] 2.16.840.1.917991.3.579.2 .196 1944 Unknown [id number] 2.16.840.1.020103.3.579.2 .196 1944 Unknown [id number] 2.16.840.1.827017.3.579.2 .1259 Unknown [id number] Unknown [id number] 2.16840.1.860212.19 Unknown [id number] 2.16.840.1.275549.3.579.2 .531 Social History Date Type Detail Facility Start: 05-21-2021 End: 10-16-2022 Tobacco smoking status NHIS Ex-smoker [facility] End: 07-20-1994 History of tobacco use Current smoker [facility] End: 07-20-1994 History of tobacco use Cigar Smoker [facility] Start: 05-21-2021 End: 10-16-2022 Tobacco use and exposure Smokeless tobacco non-user [facility] Start: 10-10-2021 End: 10-16-2022 Alcohol intake Ex-drinker (finding) [facility] Start: 05-21-2021 End: 10-16-2022 Tobacco Comment Quit 15+ years [facility] Start: 1945 Sex Assigned At Not on file [facility] Start: 08-25-2021 End: 09-24-2021 Exposure to SARS-CoV-2 (event) Not sure [facility] Start: 09-16-2022 Tobacco smoking status Never s moked tobacco (finding) [facility] [place] Tobacco smoking status Former sm okeless tobacco user, quit more than 30 days ago [facility] [place] Sex Assigned At Male [facility] Medical Equipment Procedure Code Equipment Code Equipment Origin al Text Equipment Identifier Dates Mesh Parietene Polypropylene Macroporous [id number] Surgical Monofilament - [id number] Start: 09-24-2021 Clinical Notes 12-29-2020 to 08-10-2023 Note Date & Type Note Facility 08-10-2023 Evaluation note Encounter Date Diagnosis Assessment Notes Jul, Other Summary of Visit: (A) Meal timing (B) DM2 nutrition education (C) Answered general, nutrition-rela maru questions [employer] [place] [facility] [employer] Other 11-28-2023 Evaluation note* Encounter Date Diagnosis Assessment Notes Treatment Notes Treatment Clinical Notes May, Type 2 diabetes mellitus with hyperglycemia, without long-term current use of insulin (ICD-10 - E11.65) [employer] Other 11-28-2023 Evaluation note* Encounter Date Diagnosis Assessment Notes Treatment Notes Treatment Clinical Notes May, Primary hypertension (ICD-10 - I10) [employer] Other 11-21-2023 Evaluation note* Encounter Date Diagnosis Assessment Notes Treatment Notes Treatment Clinical Notes May, Type 2 diabetes mellitus with hyperglycemia, without long-term current use of insulin (ICD-10 - E11.65) [employer] Other 11-17-2023 Evaluation note* Encounter Date Diagnosis [...] use, the patient reduces the risk for FL, CVA, HTN, cardiac dysrhythmias and sudden cardiac [...] index [BMI] 39.0-39.9, adult (ICD-10 - Z68.39) [employer] Other 11-08-2023 Evaluation note* Encounter Date Diagnosis Assessment Notes Treatment Notes Treatment Clinical Notes May, Primary hypertension (ICD-10 - I10) [employer] Other 10-29-2023 Evaluation note* Encounter Date Diagnosis Assessment Notes Treatment Notes Treatment Clinical Notes Apr, Type 2 diabetes mellitus with hyperglycemia, without long-term current use of insulin (ICD-10 - E11.65) Apr, Primary hypertension (ICD-10 - I10) [employer] Other 10-19-2023 Evaluation note* Encounter Date Diagnosis Assessment Notes Treatment Notes Treatment Clinical Notes Apr, Type 2 diabetes mellitus with hyperglycemia, without long-term current use of insulin (ICD-10 - E11.65) [employer] Other 10-18-2023 Evaluation note* Encounter Date Diagnosis Assessment Notes Treatment Notes Treatment Clinical Notes Apr, ASHD (arteriosclerotic heart disease) (ICD-10 - I25.10) This patient is stable without activity related CP, dyspnea or lightheadedness. They are instructed to continue exercise and AHA diet plan. Continue secondary prevention measures. Gasoline Engine Inspector suggesting SGLT-2 for dual benefit w/ ASHD [...] contributed. 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 Inspect feet daily for cuts. Continue secondary prevention measures. Scheduled post op JAMIR [employer] Other 10-18-2023 Evaluation note* Encounter Date Diagnosis Assessment Notes Treatment Notes Treatment Clinical Notes Apr, Type 2 diabetes mellitus with hyperglycemia, without long-term current use of insulin (ICD-10 - E11.65) [employer] [facility] Chief Complaint: Patient here for 1 year follow up CAD, PVD, and hypertension. He underwent LE angiogram last month with Dr. Mccurdy of [facility]. He sees him for [...] history of Coronary artery disease, Diabetes mellitus ([facility]), Hypertension, PVD (peripheral vascular disease) ([facility]), and Sleep apnea. Surgical History He has [...] common femoral artery. Surgeon: Jyoti Mccurdy Primary Recruiting Manager: None. Anesthesia: Local with 1% lidocaine and sedation. EBL: 10 cc Complications: None. 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 Procedure: Patient was brought to the angiogram suite. He was placed on the table in supine position. Left groin area was prepped and draped in the usual sterile fashion. Patient was given (more content not included)...[facility]08-22-2023 Evaluation note* Encounter Date Diagnosis Assessment [...] use, the patient reduces the risk for FL, CVA, HTN, cardiac dysrhythmias and sudden cardiac [...] [BMI ] 39.0-39.9, adult (ICD-10 - Z68.39) [employer] Other 05-31-2023 NoteOPERATIVE NOTE OPERATION DATE: 11/29/2022 [...] in three years. CC: Juancarlos Cuenca D.O.[id number] NotePROCEDURE: XR HIP LT 2 3V WO PELVIS HISTORY: Pain of left hip joint COMPARISON: None. FINDINGS: BONES:No fracture, acute abnormality, or significant arthropathy. SOFT TISSUES:No visible soft tissue swelling. EFFUSION:None visible. OTHER: Negative. IMPRESSION: 1. No acute bone abnormality. 2. Mild degenerative joint disease. Electronically authenticated by: GABY PADILLA Date: 2022-11-28 13:08[facility]04-11-2023 NoteCONSULTATION CONSULTATION DATE: 10/28/2022 TO: Juancarlos Cuenca [...] our patients to inform us about any lvfv-bha-imkwmwr medications or herbal remedies/nutritional supplements/alternative remedies. 2. [...] treatment options with their primary care provider.[facility] [id number] NoteHNO ID: [id number] Author: Jay Gonzalez MD Service: ? Author Type: Physician Type: Progress Notes Filed: 10/16/2022 3:05 PM Note Text: [facility] - Follow [...] Gonzalez MD 10/16/22, 2:45 PM General Surgery [facility]03-30-2023 NoteHNO ID: [id number] Author: Destiny Zapata MA Service: ? Author Type: Material Controller Type: Progress Notes Filed: 10/16/2022 3:05 PM Note Text: What is the reason for your visit today? Follow up 1 year Who is your referring physician? Are you having poor oral intake? NO Have you had unintentional weight loss of 15 lbs/7 Kg in the last 3-6 months? NO Bowels: regular Wound: Temperature: No Drains: [facility]03-30-2023 History of Present illness Narrative* aJy Gonzalez MD - 10/16/2022 2:38 PM EDT [facility] - Follow [...] Gonzalez MD 10/16/22, 2:45 PM General Surgery [facility] * Destiny Zapata MA - 10/16/2022 1:09 PM EDT What is the reason for your visit today? Follow up 1 year Who is your referring physician? Are you having poor oral intake? NO Have you had unintentional weight loss of 15 lbs/7 Kg in the last 3-6 months? NO Bowels: regular Wound: Temperature: No Drains: No documented in [facility] encounterE[facility]03-25-2023 Miscellaneous Notes* Allied Health - [...] 11, 2022 10:29 AM documented in this encounterEly[facility]03-21-2023 Miscellaneous Notes* Telephone Encounter - [...] so at a non cc facility. PH: [phone] documented in this encounterElyria [facility] Hospital02-24-2023 Evaluation note* Encounter Date Diagnosis Assessment Notes Treatment Notes Treatment Clinical Notes Aug, Left carotid artery stenosis (ICD-10 - I65.22) US: right <50%, left 50-69% - 10/2020 US: right <50%, left 80-90% - 08/2022 [employer] Other 02-20-2023 Evaluation note* Encounter Date Diagnosis [...] use, the patient reduces the risk for FL, CVA, HTN, cardiac dysrhythmias and sudden cardiac [...] reviewed and amended by provider signed below. [employer] Other 01-12-2023 NoteCONSULTATION PROCEDURE DATE: 09/18/2022 PREOPERATIVE [...] will be followed up in the office.[facility] [id number] NoteCONSULTATION CONSULTATION DATE: 07/31/2022 HISTORY OF PRESENT [...] and the patient agrees with this plan.[facility] 05-29-2022 NoteCONSULTATION CONSULTATION DATE: 05/29/2022 HISTORY [...] be followed up in the clinic thereafter.[facility] [id number] NotePatient here for 1 year follow up CAD, hypertension, and PVD. Had labs in September 2021 while at [facility] for colon surgery/hernia repair. He became hypotensive s/p surgery so his BP meds were adjusted. Denies chest pain and palpitations. Says his SOB with exertion remains unchanged. Review of Systems Cardiovascular: Positive for dyspnea on exertion. Musculoskeletal: Positive for arthritis, back pain, joint pain, muscle weakness and myalgias. Neurological: Positive for light-headedness and numbness.[facility]10-31-2022 NoteSUBJECTIVE Chief Complaint Patient presents with Coronary Artery Disease Hypertension Peripheral Vascular Disease Lizzy Yee is a 76 y.o. male here for follow-up. HPI Patient here for 1 year follow up CAD, hypertension, and PVD. Had labs in September 2021 while at [facility] for colon surgery/hernia repair. He became [...] position changes. HOSPITAL COURSE (from 09/2021 at [facility]): Mr Yee is a 75 year [...] Coronary artery disease PVD (peripheral vascular disease) ([facility]) Hx of CABG Past Medical History: Diagnosis Date Coronary artery disease Diabetes mellitus ([facility]) Hypertension PVD (peripheral vascular disease) ([facility]) Sleep apnea Family History Problem Relation Name [...] 0.4 mg by mo (more content not included)...[facility]10-06-2022 NoteCONSULTATION CONSULTATION DATE: 04/24/2022 This is [...] approval to hold his Plavix from his home help aide. A refill for Baclofen 10 mg q.h.s. [...] knee osteoarthritis. The patient is in agreement.[facility] [id number] Note CONSULTATION CONSULTATION DATE: 03/25/2022 CHIEF COMPLAINT: 1. Low back pain. 2. Left knee pain. HISTORY OF PRESENT ILLNESS: This is a very pleasant, 76-year-old male, who is known to the pain practice remote. The patient had a right total knee replacement at [facility]. The patient is doing well [...] patient understands and would like to proceed.[facility] 01-27-2022 NoteHNO ID: [id number] Author: Jus Bray MD Service: ? Author [...] Follow up anytime as needed. Jus Bray, [facility]07-11-2022 Nurse Note* Sarah Osman MA - [...] Temperature: No Drains: No documented in this encounterElyria [facility] Hospital07-11-2022 History of Present illness Narrative* [...] needed. Jus Bray MD documented in this encounterElyria Memorial Hospital03-25-2022 Miscellaneous Notes* Telephone Encounter - Shan Savagechristinemarin - 10/11/2021 3:09 PM EDTSummary: IRB#: [id number] Research Outreach IRB# [id number], Qualitative Interviews in Postoperative Gastrointestinal Dysfunction (POGD). PI: Shilpa Storm MD, SANJIV, FASA. Outcomes Research Department. Anesthesia [place]. This is a research study note. Patient [...] there for his review. Shan Parham Research Recruiting Manager Anesthesiology [place] Outcomes Research Department documented in this encounterElyria Memorial Hospital03-24-2022 History of Present illness Narrative* Jay Gonzalez MD - 10/10/2021 1:37 PM EDT [facility] Abdominal [facility] - Follow Up Visit [...] the care that he received while at [place]. Objective: AAOx3, NAD Non-labored respirations on room [...] Gonzalez MD 10/10/21, 1:37 PM General Surgery [facility] documented in this encounterElyria Memorial Hospital03-24-2022 History of Present illness Narrative* Jus Bray MD - 10/10/2021 11:00 AM EDT HPI iLzzy Yee is a 75 year old male here today for postop Open subtotal colectomy with stapled dken-hl-gzlb ileosigmoid anastomosis ventral herniorrhaphy with transversus abdominus [...] months Jus Bray MD documented in this encounterElyria Memorial Hospital03-24-2022 Nurse Note* Elena Ferrell MA - 10/10/2021 10:45 AM EDT What is the reason for your visit today? Follow up Who is your referring physician? Self Are you having poor oral intake? NO Have you had unintentional weight loss of 15 lbs/7 Kg in the last 3-6 months? NO Bowels: regular Wound: none Temperature: No Drains: No [facility] of Past illness Narrative* Problem Noted Date Resolved Date 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 documented as of this encounter (statuses as of 10/10/2021) [address]08-2022 History of Past illness Narrative* Problem Noted Date Resolved Date 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 documented as of this encounter (statuses as of 10/10/2021) [facility] History of Past illness Narrative* Problem Noted Date Resolved Date 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 documented as of this encounter (statuses as of 10/11/2021) [address]08-2022 History of Past illness Narrative* Problem Noted Date Resolved Date 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 documented as of this encounter (statuses as of 02/05/2022) [facility] History of Past illness Narrative* Problem Noted Date Resolved Date 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 documented as of this encounter (statuses as of 10/07/2022) [address]08-2022 History of Past illness Narrative* Problem Noted Date Resolved Date 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 documented as of this encounter (statuses as of 10/12/2022) [address]08-2022 History of Past illness Narrative* Problem Noted Date Resolved Date 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 documented as of this encounter (statuses as of 10/12/2022) [facility] History of Past illness Narrative* Problem Noted Date Resolved Date 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 documented as of this encounter (statuses as of 10/16/2022) [facility] NoteMR#: [id number] [facility] Pt. Name: Lizzy Yee Admitted: 12/26/2020 Discharged: 12/29/2020 Date of : 1945 Physician: Ty Avalos M.D. DISCHARGE SUMMARY [facility] Pt. Name: Kurt Yee Admitted: 12/26/20 [...] CONDITION AT DISCHARGE: Stable DISPOSITION: Home with [facility] DISCHARGE INSTRUCTIONS: Take medications as prescribed, follow [...] Cano MD Date Trans: 12/29/2020 08:18 P/ BARRETT_JN:[id number] cc: Juancarlos Cuenca D.O. [address] [place] [id number] [facility] No data available for this section [facility] Diagnosis Ventral incisional hernia- Primary [facility] Diagnosis Polyposis of colon- Primary Benign neoplasm of colon documented in this encounter [facility] note* Diagnosis Polyposis of colon- Primary Benign neoplasm of colon Incisional hernia, without obstruction or gangrene Incisional hernia without mention of obstruction or gangrene documented in this encounter [facility] noteNo InformationNortSt[facility] [employer] Other Evaluation note* Diagnosis Ventral incisional hernia documented in this encounter [facility] note* Diagnosis Ventral incisional hernia- Primary documented in this encounter [facility] general Narrative - Reported* Type Description [...] HEMICOLECTOMY 2003 Hospitalization History SEE SURGICAL HX [employer] [facility] - [facility]orted* Type Description [...] Colonoscopy 12/2022 Hospitalization History SEE SURGICAL HX [employer] Other History general Narrative - Reported* Type [...] anaya 03/2023 Hospitalization History SEE SURGICAL HX [employer] Other Hospital Discharge instructions No data available for this section [facility] No data available for this section [facility] (n[facility]ative)* Reason 10/09/22 Referral for carotid artery stenosis Diagnosis 1 Left carotid artery stenosis (I65.22) Referral Organization [facility] nemo Referring Provider First Name Juancarlos Referring Provider Last Name Bang Referring Provider Specialty Internal Me dicine Referred Organization [facility] Referred Provider Jyoti Mccurdy Referred Address [address] [place], [place],[address] Referred Provider Specialty Vascular Ruslan kajal Referral Priority Routine Referral Appointment Date 2022-10-09 General Notes Mr. Hooper is being r eferred for carotid artery stenosis. He recently completed carotid artery US at [facility], which revealed 87% left carotid bulb stenosis. The ICA velocities are not elevated, which was suggested to be due to hemodynamically significant stenosis in the left bulb. Seema Jaquez 09/23/2022 01:11:23 PM >received today, attachments made, referral faxed Janae Fulton 09/29/2022 02:11:56 PM > Patient is scheduled on 10/09 at 10 a.m. at [facility] Clinical Notes Mr. Hooper is being r eferred for further evaluation and treatment of left carotid artery stenosis. He has multiple risk factors, including HTN, HLD, DM and PAD. He has no history of TIA or CVA. He denies diplopia, loss of vision, dysarthria, facial droop or unilateral extremity weakness. 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 Advance Directive(s) 09/24/2021 8:40 AM Advance Directive(s) 06/07/2021 10:19 AM Advance Directive(s) 05/15/2021 3:36 PM M ain Documents on File Type Date Recorded 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 Advance Directive(s) 09/24/2021 8:40 AM Advance Directive(s) 06/07/2021 10:19 AM Advance Directive(s) 05/15/2021 3:36 PM M ain Documents on File Type Date Recorded 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 Advance Directive(s) 09/24/2021 8:40 AM Documents on File Type Date Recorded 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 Advance Directive(s) 09/24/2021 8:40 AM Reason for Referral Specialty Diagnoses / Procedures Referred By Contac t Referred To Contact CT IMAGING Diagnoses Ventral incisional hernia Procedures CT ABD/PEL WO IVCON CT ABD & PELVIS W/O CONTRAST Jay Gonzalez MD [address] [place] [address] Ct Imaging Referral ID Status Reason Start Date Expiration Date Visits Requested Visits Authorized [id number] Pending Review Auto-Generat ed Referral 10/10/2022 11/09/2022 1 1 Referral ID Status Reason Start Date Expiration Date V isits Requested Visits Authorized [id number] Closed Auto-Generate d Referral 10/10/2022 11/09/2022 1 1 Specialty Diagnoses / Procedures Referred By Olegario gonsalves Referred To Contact CT IMAGING Diagnoses Ventral incisional hernia Procedures CT ABD/PEL WO IVCON CT ABD & [place] [address] [place] [address] Ct Imaging Referral ID Status Reason Start Date Expiration Date Visits Requested Visits Authorized [id number] Pending Review Auto-Generat ed Referral 10/16/2022 11/15/2023 1 1 Additional Source Comments (unrecognized sect ion and content) No Status Records FoundNo Status Records FoundNo Status Records FoundNo Status Records FoundNo Status Records FoundNo Status Records FoundNo Status Records FoundNo Status Records FoundNo Status Records Found INFORMATION SOURCE (unrecogn ized section and content) DATE CREATED AUTHOR 03/11/2021 [facility] DATE CREATED AUTHOR AUTHOR'S ORGANIZ ATION 10/13/2022 [facility] DATE CREATED AUTHOR AUTHOR'S ORGANIZ ATION 10/21/2022 [facility] DATE CREATED AUTHOR AUTHOR'S ORGANIZ ATION 12/29/2022 [facility] DATE CREATED AUTHOR AUTHOR'S ORGANIZ ATION 12/29/2022 [facility] DATE CREATED AUTHOR AUTHOR'S ORGANIZ ATION 04/26/2023 [facility] DATE CREATED AUTHOR AUTHOR'S ORGANIZ ATION 08/12/2023 [facility] DATE CREATED AUTHOR AUTHOR'S ORGANIZ ATION 08/28/2023 [facility] DATE CREATED AUTHOR AUTHOR'S ORGANIZ ATION 10/02/2023 [facility] EPIC Source Comments (unrecognize d section and content) In the event this informatio n is protected by the Federal Confidentiality of Alcohol and Drug Abuse Patient Records regulations: The Federal rules restrict any use of the information to criminally investigate or prosecute any alcohol or drug abuse patient.[facility] Hospital[facility] the event this information is protected by the Federal Confidentiality of Alcohol and Drug Abuse Patient Records regulations: The Federal rules restrict any use of the information to criminally investigate or prosecute any alcohol or drug abuse patient.[facility] HospitalIn the event this information is protected by the Federal Confidentiality of Alcohol and Drug Abuse Patient Records regulations: The Federal rules restrict any use of the information to criminally investigate or prosecute any alcohol or drug abuse patient.[facility] HospitalIn the event this information is protected by the Federal Confidentiality of Alcohol and Drug Abuse Patient Records regulations: The Federal rules restrict any use of the information to criminally investigate or prosecute any alcohol or drug abuse patient.[facility] HospitalIn the event this information is protected by the Federal Confidentiality of Alcohol and Drug Abuse Patient Records regulations: The Federal rules restrict any use of the information to criminally investigate or prosecute any alcohol or drug abuse patient.[facility] HospitalIn the event this information is protected by the Federal Confidentiality of Alcohol and Drug Abuse Patient Records regulations: The Federal rules restrict any use of the information to criminally investigate or prosecute any alcohol or drug abuse patient.[facility] HospitalIn the event this information is protected by the Federal Confidentiality of Alcohol and Drug Abuse Patient Records regulations: The Federal rules restrict any use of the information to criminally investigate or prosecute any alcohol or drug abuse patient.[facility] HospitalIn the event this information is protected by the Federal Confidentiality of Alcohol and Drug Abuse Patient Records regulations: The Federal rules restrict any use of the information to criminally investigate or prosecute any alcohol or drug abuse patient.[facility] Reason for Visit (unrecogniz ed [...] & PELVIS W/O CONTRAST Jay Gonzalez MD [address] [place] [address] Ct Imaging Referral ID Status Reason Start Date Expiration Date V isits Requested Visits Authorized [id number] Closed Auto-Generate d Referral 10/10/2022 11/09/2022 1 1 Reason Comments Follow Up 1 year, ventral inci sional hernia Care Teams (unrecognized sec tion and content) Is Technician Relationship Specialty Start Date End Date Juancarlos Cuenca DO PCP - General Internal Medicine 10/23/14 [facility] Webb [address] [place] [phone] Cardiology 09/13/21 Is Technician Relationship Specialty Start Date End Date Juancarlos Cuenca DO PCP - General Internal Medicine [facility]/23/14 [facility] [address] [place] [phone] Cardiology 09/13/21 Is Technician Relationship Specialty Start Date End Date Juancarlos Cuenca DO PCP - General Internal Medicine 10/23/14 [facility] [address] [place] [phone] Cardiology 09/13/21 Is Technician Relationship Specialty Start Date End Date Juancarlos Cuneca DO PCP - General Internal Medicine 10/23/14 Pedro Richardson MD Cardiology 09/13/21 Is Technician Relationship Specialty Start Date End Date Juancarlos Cuenca, PCP - General Internal Medicine 10/23/14 Pedro Richardson MD Cardiology 09/13/21 Is Technician Relationship Specialty Start Date End Date Juancarlos Cuenca DO PCP - General Internal Medicine 10/23/14 Pedro Richardson MD Cardiology 09/13/21 Is Technician Relationship Specialty Start Date End Date Juancarlos Cuenca DO PCP - General Internal Medicine 10/23/14 Pedro Richardson MD Cardiology 09/13/21 Is Technician Relationship Specialty Start Date End Date Juancarlos [...] BE BASED ON THE PRIMARY CLINICAL RECORDS. [facility]. provides no warranty or guarantee of the accuracy or completeness of information in this document.
== END 2023-10-19 09:11 | disposition home or self-care (01) ==
LOC: US 09:11
PROVIDERS: PCP Internal Medicine; Visit Provider Internal Medicine
DX: R10.13 Epigastric pain (principal); R74.01 Elevation of levels of liver transaminase levels
CPT/HCPCS: 76705

== ENCOUNTER 2023-10-27 11:58 | Outpatient (OUT) | payer MEDICARE, SELFPAY ==
--- NOTE | 2023-10-27 12:02 | MR_ITS ---
[address] [address] Patient Name: LIZZY BURK MRN: [id number] date: 1945 Sex: M Assigned Patient Location: MRI Current Patient Location: Accession/Order Number: [id number] Exam Date: 10/27/2023 12:50 Report Date: 10/28/2023 07:06 At the request of: GARY CUENCA Procedure: MR abdomen wo con EXAMINATION: MR abdomen wo con HISTORY: Dilation of common bile duct K83.8, Elevated liver enzymes COMPARISON: CT exam 10/19/2023 TECHNIQUE: A comprehensive examination was performed utilizing a variety of imaging planes and imaging parameters to optimize visualization of suspected pathology. Magnetic resonance cholangiopancreatography was also performed. FINDINGS: LIVER: Normal. No enlargement, atrophy, abnormal density, or significant focal lesion. BILIARY: The gallbladder is normal in appearance. Intrahepatic biliary tree is normal. There is dilation of the common bile duct measuring up to 9.3 mm in diameter. No intraluminal filling defect or mass is observed PANCREAS: No lesion, fluid collection, ductal dilatation, or atrophy. SPLEEN: No enlargement or focal lesion. KIDNEYS: No mass or obstruction. ADRENALS: No mass or enlargement. AORTA/VASCULAR: No aneurysm or dissection. RETROPERITONEUM: No mass or adenopathy. BOWEL/MESENTERY: No visible mass, obstruction, or bowel wall thickening. ABDOMINAL WALL: No mass or hernia. BONES: No bony lesion or fracture. LUNG BASES: No visible pleural disease. Lung bases not well assessed with MRI. OTHER: Negative. MR/MR abdomen wo con IMPRESSION: Dilation of the common bile duct up to 9.3 mm with no focal filling defect or mass observed Electronically authenticated by: LANA DAVISON Date: 10/28/2023 07:06
--- OUTSIDE RECORDS SUMMARY | 2023-10-27 12:10 | XMS_ITS | CCD ---
Author Organization [facility] Care Team Providers Care Admin Assistant Name Role Phone JUANCARLOS CUENCA Referring Unavailable JUANCARLOS CUENCA Primary Care Unavailable Delonte Webb Admitting Unavailable Delonte Webb Attending Unavailable JUANCARLOS CUENCA Referring Unavailable TY AVALOS Surgeon Unavailable TY AVALOS Admitting Unavailable JUANCARLOS CUENCA Primary Care Unavailable TY AVALOS Attending Unavailable [place] Procedure Practitioner Unavailab Juancarlos Delatorre DO Primary Care Provider Pedro Richardsonmed Unavailable [phone] Dylan VANESSA, [facility] Ahmed Unavailable [phone] JUANCARLOS CUENCA Primary Care Physician Juancarlos Cuenca Unavailable Juancarlos Cuenca DO Primary Care Provider Dylan VANESSA, [facility] Ahmed Unavailable [phone] JAY GONZALEZ Referring Unavailable JUANCARLOS CUENCA Primary [...] DR EVAN Mcleod Attending Unavailable FULLER ., CHRISITN Consulting Unavailable LAKSHMIPATHY ., RAINA Attending Janki [...] Unavailable Mauro VANESSA, Hanh Chiang Attending Unavailable Mauor VANESSA, Hanh Chiang Attending Unavailable Nirmala James Unavailable Juancarlos Cuenca Attending Unavailable Bang, Juancarlos Primary Care Unavailable Bang, Juancarlos Admitting Unavailable ANGELA BINGHAM Attending Unavailable Allergies Allergy Classification Reported Allergen(s) Allergy Type Date of Onset Reaction(s) Facility (20 sources) Morphine; Translations: [morphine] Drug Allergy Unknown [facility] Repository (1 source) Morphine Drug Allergy 06-05-2023 [facility] Repository Medications Current Medications Medication Drug Class(es) [...] aily. CPAP (8 sources) CPAP daily at [facility]. 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, right [...] without hemorrhage] Other aftercare (3 sources) Other residential (current) drug therapy; Translations: [OTH EDITOR IN CHIEF CURRENT DRUG THERAPY] Onset: 09-17-2022 Episodic Other and unspecified benign neoplasm (11 sources) Polyp of colon; Translations: [Polyp of colon] Onset: 06-07-2021 06-07-2021 Episodic Unclassified (1 source) LOW BACK PAIN, UNSPECIFIED; Translations: [LOW BACK PAIN, UNSPECIFIED] Onset: 04-24-2022 Results Test Name Value Interpretation Reference Range Facility Office Visiton 04-22-2023 Follow-up visit [id number] Vu Yee 1945 M Date Provider Department Center 04/22/2023 Flores-PEDRO RICHARDSON SONIA Michael Family History Problem Relation Age of Onset Coronary artery disease Mother Coronary artery disease Brother Family Status - Relation Status Age at Mother Brother Level of Service:91685 LA OFFICE/OUTPATIENT ESTABLISHED LOW MDM 20-29 MIN Normal [facility] Outside Colonoscopyon 2022 Outside Colonoscopy [id number] 0CD:127 Normal [facility] Reminderson 12-18-2022 Reminders - From: Amy Menon LPN To: N - Clinical; Sent: 12/18/2022 12:06:16 EDT Show up: 11/16/2025 07:00:00 EDT Subject: colonoscopy recall Due Date/Time: 12/17/2025 07:00:00 EDT Reminder/Recall Patient due for surveillance colonoscopy 12/17/2025. Normal [facility] POINT OF CARE GLUCOSEon 11-19 Glucose [Mass/Vol] 176 mg/dL Critically high 74-106 [facility] Comment on above: Performed By: #### P OCGLUC #### [facility] [address] [address] [address] Rojelio Kingsley POINT OF CARE GLUCOSEon 11-19 Glucose [Mass/Vol] 157 mg/dL Critically high 74-106 [facility] Comment on above: Performed By: #### P OCGLUC #### [facility] [address] [address] [address] Rojelio Kingsley Consent for Procedure/Surger yon 12-03-2022 Consent for Procedure/Surgery [id number] 0CD:127 Normal [facility] Physician Referralon 023 Physician Referral [id number] 0CD:127 Normal [facility] General Surgery Office/Clini c Noteon 12-02-2022 [...] anastomosis and ventral hernia repair 09/2021 at [facility], they recommend yearly surveillance sigmoidoscopies; patient [...] tab(s), (more content not included)... Normal [facility] Comment on above: Result Comment: Elec tronically Signed By: PELON VANESSA, Nya Nicholson\Date and Time Signed: 12/02/22 11:37 EDT POINT OF CARE GLUCOSEon 04-2 Glucose [Mass/Vol] 121 mg/dL Critically high 74-106 T [facility] Comment on above: Performed By: #### P OCGLUC #### [facility] [address] [address] [address] Rojelio Kingsley CNOVon 10-16-2022 CNOV Office Visit ([facility] ) LIZZY YEE ([id number]) 1945 M Date Time Provider Department 10/16/22 1:20 PM JAY GONZALEZ [facility] During your visit today, we recorded [...] Jay Gonzalez MD 10/16/2022 3:05 PM Signed [facility] Abdominal [facility] - Follow Up Visit Assessment/Plan: [...] Gonzalez MD 10/16/22, 2:45 PM General Surgery [facility] Allergies As of Date: 10/16/2022 (No Known Allergies) Date Reviewed: 10/16/2022 Reviewed by: Destiny Zapata MA - Fully Assessed Reason for Visit: Follow Up [171] Cmt: 1 year, ventral incisional hernia Primary Visit Diagnosis:Ventral incisional hernia [K43.2] Order(s):CT ABD/PEL WO IVCON [[id number]] Order #: [id number] FUTURE enteric contrast (will be provided with [...] without long-t (more content not included)... [facility] H[facility] ID: [id number] Author: RT Marisa(R) Service: Radiology Author Type: [...] RT Marisa(R) October 11, 2022 10:[address] [facility] [address] ABD/PEL WO IVCONon 2022 CT ABD/PEL WO IVCON * * *Final Report* * * DATE OF EXAM: Oct 11 2022 10:30AM [facility] 0531 - CT ABD/PEL WO IVCON [...] site. Lower thorax: Lower lungs are clear. Cooking Instructor (topogram) images: Unremarkable. IMPRESSION: Midline fat-containing upper abdominal hernia. Aquatic Laborer: PSCB Transcribe Date/Time: Oct 13 2022 7:57A Dictated by : YANICK RIVAS MD This examination was interpreted and the report reviewed and electronically signed by: YANICK RIVAS MD on Oct 13 2022 8:06AM EST [id number] [facility] 10-06-2022 [facility] Telephone ([facility]) LIZZY YEE ([id number]) 1945 M Date Time Provider Department 10/06/22 JAY GONZALEZ [facility] During your visit today, we recorded the following information about you: Anjelica Harsh 10/06/2022 3:09 PM Signed Pt's called he is going in for a CT scan on Thursday does he need to have a creatinine blood level, says he had one within the last month or so at a non cc facility. PH: [phone] Efrain Zamarripa RN 10/07/2022 10:43 AM Signed Returned call, went to voicemail. Left message that the CT has been ordered without contrast. Left office number for questions or concerns. Allergies As of Date: 10/06/2022 (No Known Allergies) Date Reviewed: 01/27/2022 Reviewed by: Sarah Osman MA - Fully Assessed Reason for Visit: Patient Question [1407] Prescriptions as of 10/07/2022 - lisinopril (ZESTRIL, [...] Status:Closed by EFRAIN ZAMARRIPA on 10/07/22 Normal [facility] Consent for Procedure/Surger yon 09-17-2022 Consent for Procedure/Surgery [id number] 0CD:127 Normal [facility] RAD - Ultrasound Reporton RAD - Ultrasound Report [id number] 0CD:127 Normal [facility] Ambulatory Visit Summaryon 0 09-16-2022 Ambulatory [...] longer receiving treatment for. Hyperlipidemia Rajani [facility] Ambulatory Visit Summary LIZZY YEE :1945 [...] longer receiving treatment for. Hyperlipidemia Normal [facility] General Surgery Office/Clini c Noteon 09-16-2022 [...] anastomosis and ventral hernia repair 09/2021 at [facility]; requires yearly flexible sigmoidoscopy for surveillance. [...] Nathalie (more content not included)... Normal [facility] Comment on above: Result Comment: Elec tronically Signed By: PELON VANESSA, Nya Nicholson\Date and Time Signed: 09/16/22 11:17 EST Alanine Aminotransferaseon 0 - ALT [Catalytic activity/Vol] 30 U/L Normal 16-63 [employer] Other Comment on above: Performed By: #### B MP, ALT, LIPID #### [facility] [address] [address] [address] Rojelio Kingsley Basic Metabolic Panelon 08-21 Calcium [Mass/Vol] 9.5283082 mg/dL 8.5-10 .1 mg/dL [employer] [facility] [employer] Other CO2 [Moles/Vol] 25.96662970 mmol/L 21.0-3 2.0 mmol/L [employer] Other Creatinine [Mass/Vol] 1.82937757 mg/dL Critically high 0.70-1.30 mg/dL [employer] Other Potassium [Moles/Vol] 4.93057809 mmol/L 3 .5-5.1 mmol/L [employer] Other Urea nitrogen [Mass/Vol] 16.0031760 mg/dL 7.0-18.0 mg/dL [employer] Other Basic Metabolic Panel see note Nor 2can Other Basic Metabolic Panel 141 mmol/L 136-14 5 mmol/L [employer] Other Basic Metabolic Panel 134 mg/dL Critically high 74-106 mg /dL [employer] Other Basic Metabolic Panel 51 mL/min/1.73m2 Critically low >=60 mL/min/1.73m 2 [employer] Other Basic Metabolic Panel >60 mL/min/1.73m2 > =60 mL/min/1.73m 2 [employer] Other Anion gap [Moles/Vol] 15.2 mmol/L [facility] Other Comment on above: Performed By: #### B MP, ALT, LIPID #### [facility] [address] [place] [address] Dr. Rojelio Kingsley Chloride [Moles/Vol] 105 mmol/L Normal 98-107 [facility] Other Comment on above: Performed By: #### B MP, ALT, LIPID #### [facility] [address] [place] [address] Dr. Rojelio Kingsley Urea nitrogen/Creatinine [Mass ratio] 11.8 mg/mg Normal [facility] Other Comment on above: Performed By: #### B MP, ALT, LIPID #### [facility] [address] [place] [address] Dr. Rojelio Kingsley CBC AUTO DIFFon 09-12-2022 BASO # 0.0 103/ul Normal 0.0-0.1 [facility] Comment on above: Performed By: #### C BC #### [facility] [address] [place] [address] Dr. Rojelio Kingsley Basophils/100 WBC (Bld) 0.4 % Normal 0.2-2.0 [facility] Comment on above: Performed By: #### C BC #### [facility] [address] [place] [address] Dr. Rojelio Kingsley EO # 0.3 103/ul Normal 0.0-0.7 [facility] Comment on above: Performed By: #### C BC #### [facility] [address] [place] [address] Dr. Rojelio Kingsley Eosinophils/100 WBC (Bld) 3.6 % Normal 0.9-7.0 [facility] Comment on above: Performed By: #### C BC #### [facility] [address] [place] [address] Dr. Rojelio Kingsley Erythrocyte distribution width (RBC) [Ratio] 14.1 % Normal 11.0-15.0 [facility] Comment on above: Performed By: #### C BC #### [facility] [address] [place] [address] Dr. Rojelio Kingsley Hematocrit (Bld) [Volume fraction] 40.1 % Critically low 42.0-54.0 [facility] Comment on above: Performed By: #### C BC #### [facility] [address] [place] [address] Dr. Rojelio Kingsley Hemoglobin (Bld) [Mass/Vol] 13.4 g/dL Critically low 14.0-18.0 [facility] Comment on above: Performed By: #### C BC #### [facility] [address] [place] [address] Dr. Rojelio Kingsley IG # 0.02 10e3/ul Normal 0.00-0.03 [facility] Comment on above: Performed By: #### C BC #### [facility] [address] [place] [address] Dr. Rojelio Kingsley IG % 0.2 % Normal 0.0-0.5 [facility] Comment on above: Performed By: #### C BC #### [facility] [address] [place] [address] Dr. Rojelio Kingsley LYMPH # 1.8 103/ul Normal 1.2-3.8 [facility] Comment on above: Performed By: #### C BC #### [facility] [address] [place] [address] Dr. Rojelio Kingsley Lymphocytes/100 WBC (Bld) 21.9 % Normal 20.5-60.0 [facility] Comment on above: Performed By: #### C BC #### [facility] [address] [place] [address] Dr. Rojelio Kingsley MANUAL DIFF REQ NO Normal [facility] Comment on above: Performed By: #### C BC #### [facility] [address] [place] [address] Dr. Rojelio Kingsley MCH (RBC) [Entitic mass] 30.6 pg Normal 25.9-34.0 [facility] Comment on above: Performed By: #### C BC #### [facility] [address] [place] [address] Dr. Rojelio Kingsley MCHC (RBC) [Mass/Vol] 33.4 g/dL Normal 29.9-35.2 [facility] Comment on above: Performed By: #### C BC #### [facility] [address] [place] [address] Dr. Rojelio Kingsley MCV (RBC) [Entitic vol] 91.6 fL Normal 80.0-94.0 [facility] Comment on above: Performed By: #### C BC #### [facility] [address] [place] [address] Dr. Rojelio Kingsley MONO # 0.8 103/ul Normal 0.3-0.8 [facility] Comment on above: Performed By: #### C BC #### [facility] [address] [place] [address] Dr. Rojelio Kingsley Monocytes/100 WBC (Bld) 9.3 % Normal 1.7-12.0 [facility] Comment on above: Performed By: #### C BC #### [facility] [address] [place] [address] Dr. Rojelio Kingsley NEUT # 5.4 103/ul Normal 1.4-6.5 [facility] Comment on above: Performed By: #### C BC #### [facility] [address] [place] [address] Dr. Rojelio Kingsley Neutrophils/100 WBC (Bld) 64.6 % Normal 43.0-75.0 [facility] Comment on above: Performed By: #### C BC #### [facility] [address] [place] [address] Dr. Rojelio Kingsley Platelet mean volume (Bld) [Entitic vol] 10.3 fL Normal 9.5-13.5 [facility] Comment on above: Performed By: #### C BC #### [facility] [address] [place] [address] Dr. Rojelio Kingsley PLT 214 103/ul Normal 150-450 [facility] Comment on above: Performed By: #### C BC #### [facility] [address] [address] [address] Rojelio Kingsley RBC 4.38 106/ul Critically low 4.70-6.10 [facility] Comment on above: Performed By: #### C BC #### [facility] [address] [address] [address] Rojelio Kingsley WBC 8.4 103/ul Normal 4.0-11.0 [facility] Comment on above: Performed By: #### C BC #### [facility] [address] [place] [address] Dr. Rojelio Kingsley GLYCOHEMOGLOBIN A1Con 2022 ADA RECOMMENDATION SEE BELOW Normal [facility] Comment on above: Result Comment: ADA RECOMMENDED LIMIT 4.0 - 6.0 ADA THERAPEUTIC TARGET < 7.0 ACTION SUGGESTED > 7.0 Performed By: #### P OCGLUC #### [facility] [address] [place] [address] Dr. Rojelio Kingsley Glucose [Mass/Vol] 169 mg/dL Normal [facility] Comment on above: Performed By: #### P OCGLUC #### [facility] [address] [place] [address] Dr. Rojelio Kingsley HbA1c (Bld) [Mass fraction] 7.5 % Critically high 4.5-6.2 [facility] Comment on above: Performed By: #### P OCGLUC #### [facility] [address] [place] [address] Dr. Rojelio Kingsley LIPID PROFILEon 09-12-2022 CHOL-HDL RATIO NORM SEE BELOW Normal [facility] [place] Comment on above: Result Comment: 3.3 - 4.4 LOW RISK 4.4 - 7.1 AVERAGE RISK 7.1 - 11.0 MODERATE RISK >11.0 HIGH RISK Performed By: #### B MP, ALT, LIPID #### [facility] [address] [place] [address] Dr. Rojelio Kingsley Cholesterol in LDL [Mass/Vol] 31.2 mg/dL Normal [facility] Comment on above: Performed By: #### B MP, ALT, LIPID #### [facility] [address] [place] [address] Dr. Rojelio Kingsley HDL NORMAL > or = 60 mg/dl - LO W CARDIOVASCULAR RISK <40 mg/dl - HIGH CARDIOVASCULAR RISK Normal [facility] Comment on above: Performed By: #### B MP, ALT, LIPID #### [facility] [address] [place], [place] [address] Dr. Rojelio Kingsley LDL CALC NORMAL SEE BELOW Normal [facility] Comment on above: Result Comment: <100 mg/dl OPTIMAL 100 - 129 mg/dl NEAR OR ABOVE OPTIMAL 130 - 159 mg/dl BORDERLINE HIGH 160 - 189 mg/dl HIGH >190 mg/dl VERY HIGH Performed By: #### B MP, ALT, LIPID #### [facility] [address] [address] [address] Rojelio Kingsley VLDL CALC 40.8 mg/dL Normal [facility] Comment on above: Performed By: #### B MP, ALT, LIPID #### [facility] [address] [address] [address] Rojelio Kingsley Lipid Panelon 09-12-2022 Lipid Panel > or = 60 mg/dl - LO W CARDIOVASCULAR RISK <40 mg/dl - HIGH CARDIOVASCULAR RISK [employer] Other Lipid Panel SEE BELOW [employer] Other Lipid Panel 31.2 mg/dL [employer] Other Lipid Panel 40.8 mg/dL [employer] Other Cholesterol [Mass/Vol] 115 mg/dL Normal <=200 [employer] Other Comment on above: Performed By: #### B MP, ALT, LIPID #### [facility] [address] [place], [place] [address] Dr. Rojelio Kingsley Cholesterol in HDL [Mass/Vol] 43 mg/dL Normal 40-60 [employer] Other Comment on above: Performed By: #### B MP, ALT, LIPID #### [facility] [address] [place], [place] [address] Dr. Rojelio Kingsley Cholesterol.total/Cho lesterol in HDL [Mass ratio] 2.7 {ratio} Normal [employer] Other Comment on above: Performed By: #### B MP, ALT, LIPID #### [facility] [address] [place] [address] Dr. Rojelio Kingsley Triglyceride [Mass/Vol] 204 mg/dL Critically high <=150 [employer] Other Comment on above: Performed By: #### B MP, ALT, LIPID #### [facility] [address] [address] [address] Rojelio Kingsley MICROALBUMIN, RAND URon - mALB 2.1 mg/L Normal <=30.0 [facility] Comment on above: Performed By: #### M ALBR #### [facility] [address] [place] [address] Dr. Rojelio Kingsley PROF CHEM 8 (BAS METB)on Calcium [Mass/Vol] 9.6 mg/dL Normal 8.5-10.1 [facility] Comment on above: Performed By: #### B MP, ALT, LIPID #### [facility] [address] [place] [address] Dr. Rojelio Kingsley CO2 [Moles/Vol] 25.1 mmol/L Normal 21.0-32.0 [facility] Comment on above: Performed By: #### B MP, ALT, LIPID #### [facility] [address] [place] [address] Dr. Rojelio Kingsley Creatinine [Mass/Vol] 1.36 mg/dL Critically high 0.70-1.30 [facility] Comment on above: Performed By: #### B MP, ALT, LIPID #### [facility] [address] [place] [address] Dr. Rojelio Kingsley EGFR-AF BRUNEIAN >60 Normal >=60 [facility] Comment on above: Performed By: #### B MP, ALT, LIPID #### [facility] [address] [place] [address] Dr. Rojelio Kingsley EGFR-NON AF BRUNEIAN 51 mL/min/1.73m2 Critically low >=60 [facility] Comment on above: Performed By: #### B MP, ALT, LIPID #### [facility] [address] [address] [address] Rojelio Kingsley Glucose [Mass/Vol] 134 mg/dL Critically high 74-106 [facility] Comment on above: Performed By: #### B MP, ALT, LIPID #### [facility] [address] [address] [address] Rojelio Kingsley Potassium [Moles/Vol] 4.3 mmol/L Normal 3.5-5.1 [facility] Comment on above: Performed By: #### B MP, ALT, LIPID #### [facility] [address] [address] [address] Rojelio Kingsley Sodium [Moles/Vol] 141 mmol/L Normal 136-145 [facility] Comment on above: Performed By: #### B MP, ALT, LIPID #### [facility] [address] [address] [address] Rojelio Kingsley Urea nitrogen [Mass/Vol] 16.0 mg/dL Normal 7.0-18.0 [facility] Comment on above: Performed By: #### B MP, ALT, LIPID #### [facility] [address] [address] [address] Rojelio Kingsley US CAROTID ART BILon [...] GABY PADILLA Date: 2022-09-12 15:22 Normal [facility] US CAROTID ART ZHENG [employer] Other Orders Onlyon 07-24-2022 Orders Only [id number] Vu Yee 1945 M Date Provider Department Center 07/24/2022 ZOFIA MARTINO [facility] Family History Problem Relation Age of Onset Coronary artery disease Mother Coronary artery disease Brother Family Status - Relation Status Age at Mother Brother Normal [facility] POINT OF CARE GLUCOSEon 06-19 Glucose [Mass/Vol] 106 mg/dL Normal 74-106 [facility] Comment on above: Performed By: #### P OCGLUC #### [facility] [address] [place], [place] [address] Dr. Rojelio Kingsley Covid-19 PCR ([facility])on SARS-CoV-2 (COVID-19) RNA MITCHELL+probe Ql (Unsp spec) Not detected Normal NOT DETECTED [facility] Comment on above: Result Comment: This test is not yet approved or cleared by the [place] FDA. When there are no FDA-approved or cleared tests available, and other criteria are met, FDA can make tests available under an emergency access mechanism called an Emergency Use Authorization (EUA). The EUA for this test is supported by the Chief Communications Officer of Health and Human Service's (HHS's) declaration [...] SARS-CoV-2. Performed By: #### P OCGLUC #### [facility] [address] [place], [place] [address] Dr. Rojelio Kingsley 29on 05-19-2022 29 Addended by: MARINO MOE on: 05/19/2022 03:14 PM Modules accepted: Level of Service Normal [facility] Follow-Upon 05-19-2022 Follow-Up [id number] Vu Yee 1945 M Date Provider Department Center 05/19/2022 MARINO GRAVES SONIA [facility] Family History Problem Relation Age of Onset Coronary artery disease Mother Coronary artery disease Brother Family Status - Relation Status Age at Mother Brother Level of Service:84735 LA OFFICE/OUTPATIENT ESTABLISHED LOW MDM 20-29 MIN Reason for Visit and Comments: Coronary Artery Disease [187] Hypertension [591521] Peripheral Vascular Disease [458] Normal [facility] POINT OF CARE GLUCOSEon 04-20 Glucose [Mass/Vol] 129 mg/dL Critically high 74-106 [facility] Comment on above: Performed By: #### P OCGLUC #### [facility] [address] [address] [address] Rojelio Kingsley POINT OF CARE GLUCOSEon 03-21 Glucose [Mass/Vol] 116 mg/dL Critically high 74-106 [facility] Comment on above: Performed By: #### P OCGLUC #### [facility] [address] [address] [address] Rojelio Kingsley XR LSPINE 2_3 VIEWSon [...] GABY PADILLA Date: 2022-03-05 13:06 Normal [facility] CBC AUTO DIFFon 02-22-2022 BASO # 0.0 103/ul Normal 0.0-0.1 [facility] Comment on above: Performed By: #### P OCGLUC #### [facility] [address] [address] [address] Rojelio Kingsley Basophils/100 WBC (Bld) 0.4 % Normal 0.2-2.0 [facility] Comment on above: Performed By: #### P OCGLUC #### [facility] [address] [address] [address] Rojelio Kingsley EO # 0.3 103/ul Normal 0.0-0.7 [facility] Comment on above: Performed By: #### P OCGLUC #### [facility] [address] [address] [address] Rojelio Kingsley Eosinophils/100 WBC (Bld) 3.0 % Normal 0.9-7.0 [facility] Comment on above: Performed By: #### P OCGLUC #### [facility] [address] [address] [address] Rojelio Kingsley Erythrocyte distribution width (RBC) [Ratio] 14.4 % Normal 11.0-15.0 [facility] Comment on above: Performed By: #### P OCGLUC #### [facility] [address] [address] [address] Rojelio Kingsley Hematocrit (Bld) [Volume fraction] 37.1 % Critically low 42.0-54.0 [facility] Comment on above: Performed By: #### P OCGLUC #### [facility] [address] [address] [address] Rojelio Kingsley Hemoglobin (Bld) [Mass/Vol] 12.2 g/dL Critically low 14.0-18.0 [facility] Comment on above: Performed By: #### P OCGLUC #### [facility] [address] [address] [address] Rojelio Kingsley IG # 0.03 10e3/ul Normal 0.00-0.03 [facility] Comment on above: Performed By: #### P OCGLUC #### [facility] [address] [address] [address] Rojelio Kingsley IG % 0.4 % Normal 0.0-0.5 [facility] Comment on above: Performed By: #### P OCGLUC #### [facility] [address] [address] [address] Rojelio Kingsley LYMPH # 1.8 103/ul Normal 1.2-3.8 [facility] Comment on above: Performed By: #### P OCGLUC #### [facility] [address] [address] [address] Rojelio Kingsley Lymphocytes/100 WBC (Bld) 21.6 % Normal 20.5-60.0 [facility] Comment on above: Performed By: #### P OCGLUC #### [facility] [address] [place] [address] Dr. Rojelio Kingsley MANUAL DIFF REQ NO Normal [facility] Comment on above: Performed By: #### P OCGLUC #### [facility] [address] [place] [address] Dr. Rojelio Kingsley MCH (RBC) [Entitic mass] 30.0 pg Normal 25.9-34.0 [facility] Comment on above: Performed By: #### P OCGLUC #### [facility] [address] [place] [address] Dr. Rojelio Kingsley MCHC (RBC) [Mass/Vol] 32.9 g/dL Normal 29.9-35.2 [facility] Comment on above: Performed By: #### P OCGLUC #### [facility] [address] [place] [address] Dr. Rojelio Kingsley MCV (RBC) [Entitic vol] 91.4 fL Normal 80.0-94.0 [facility] Comment on above: Performed By: #### P OCGLUC #### [facility] [address] [place] [address] Dr. Rojelio Kingsley MONO # 0.7 103/ul Normal 0.3-0.8 [facility] Comment on above: Performed By: #### P OCGLUC #### [facility] [address] [address] [address] Rojelio Kingsley Monocytes/100 WBC (Bld) 8.4 % Normal 1.7-12.0 [facility] Comment on above: Performed By: #### P OCGLUC #### [facility] [address] [address] [address] Rojelio Kingsley NEUT # 5.5 103/ul Normal 1.4-6.5 [facility] Comment on above: Performed By: #### P OCGLUC #### [facility] [address] [address] [address] Rojelio Kingsley Neutrophils/100 WBC (Bld) 66.2 % Normal 43.0-75.0 [facility] Comment on above: Performed By: #### P OCGLUC #### [facility] [address] [place] [address] Dr. Rojelio Kingsley Platelet mean volume (Bld) [Entitic vol] 10.3 fL Normal 9.5-13.5 [facility] Comment on above: Performed By: #### P OCGLUC #### [facility] [address] [address] [address] Rojelio Kingsley PLT 202 103/ul Normal 150-450 [facility] Comment on above: Performed By: #### P OCGLUC #### [facility] [address] [address] [address] Rojelio Kingsley RBC 4.06 106/ul Critically low 4.70-6.10 [facility] Comment on above: Performed By: #### P OCGLUC #### [facility] [address] [place] [address] Dr. Rojelio Kingsley WBC 8.3 103/ul Normal 4.0-11.0 [facility] Comment on above: Performed By: #### P OCGLUC #### [facility] [address] [address] [address] Rojelio Kingsley GLYCOHEMOGLOBIN A1Con 2021 ADA RECOMMENDATION SEE BELOW Normal [facility] Comment on above: Result Comment: ADA RECOMMENDED LIMIT 4.0 - 6.0 ADA THERAPEUTIC TARGET < 7.0 ACTION SUGGESTED > 7.0 Performed By: #### A 1C #### [facility] [address] [address] [address] Rojelio Kingsley Glucose [Mass/Vol] 151 mg/dL Normal [facility] Comment on above: Performed By: #### A 1C #### [facility] [address] [place], [place] [address] Dr. Rojelio Kingsley HbA1c (Bld) [Mass fraction] 6.9 % Critically high 4.5-6.2 [facility] Comment on above: Performed By: #### A 1C #### [facility] [address] [address] [address] Rojelio Kingsley Consultation Noteon 02-19-20 Consultation Note [id number] 0CD:[id number] Normal [facility] CNOVon 01-27-2022 [facility] Office Visit ([facility] ) LIZZY YEE ([id number]) 1945 M Date Time Provider Department 01/27/22 1:00 PM JUS BRAY [facility] During your visit today, we recorded [...] No Drains: No Referring Provider: JUS BRAY [[id number]] Allergies As of Date: 01/27/2022 (No Known Allergies) Date Reviewed: 01/27/2022 Reviewed by: Sarah Osman MA - Fully Assessed Reason for Visit: Established Patient Follow-Up [[id number]] Primary Visit Diagnosis:Polyposis of colon [K63.5] Other [...] 3-6 mo (more content not included)... Normal [facility] KNEE RIGHT 3 VWSon KNEE RIGHT 3 S [facility] Department of Radiology [address] [place] [phone] ======== Patient Name: LIZZY YEE : 1945 Sex: M Age: Race: White Pt. Location: Patient Status: Ordered Date: 01/09/2021 1:10:00 PM Completed Date: 01/09/2021 01:11 PM Requesting Provider: TY AVALOS Attending Provider: Report Copy To: Signs & Symptoms: Z96.659 Presence of unspecified artificial knee joint I10 History: Comments: Exam: KNEE RIGHT 3 S ======== KNEE RIGHT [address] [facility] HISTORY: Knee replacement, follow-up. COMPARISON: 12/26/2020. IMPRESSION: 1. Redemonstrated total knee prosthesis, no hardware complication or acute abnormality. No significant joint effusion. Mild soft tissue swelling noted. Electronically signed: Mitul Banks. Transcribed by: [email or web address], User Resident: Electronically Signed by: MITUL BANKS @ 01/09/2021 08:47 PM Normal The [facility] POC GLUCOSE LABon 12-29-2020 Glucose [Mass/Vol] 194 mg/dL High 70-100 The [facility] Comment on above: Performed By: #### 8 [id number] #### [facility] [address] [place] [address], [place] Glucose [Mass/Vol] 125 mg/dL High 70-100 The [facility] Comment on above: Performed By: #### 8 [id number] #### [facility] [address] [place] [address], [place] POC GLUCOSE LABon 12-28-2020 Glucose [Mass/Vol] 197 mg/dL High 70-100 The [facility] Comment on above: Performed By: #### 8 [id number] #### [facility] [address] [place] [address], [place] Glucose [Mass/Vol] 177 mg/dL High 70-100 The [facility] Comment on above: Performed By: #### 8 5499 #### [facility] [address] [place] [address], [place] Glucose [Mass/Vol] 215 mg/dL High 70-100 The [facility] Comment on above: Performed By: #### 8 [id number] #### [facility] [address] [place] [address], [place] Glucose [Mass/Vol] 152 mg/dL High 70-100 The [facility] Comment on above: Performed By: #### 8 [id number] #### [facility] [address] [place] [address], [place] BASIC METABOLIC PANELon 12-18 Calcium [Mass/Vol] 8.2 mg/dL Low 8.6-10.3 The [facility] Comment on above: Order Comment: No: D o not add to previous draw Performed By: #### 8 [id number] #### [facility] [address] [place] [address], [place] Chloride [Moles/Vol] 102 mmol/L Normal 98-107 The [facility] Comment on above: Order Comment: No: D o not add to previous draw Performed By: #### 8 [id number] #### [facility] [address] [place] [address], [place] CO2 [Moles/Vol] 23 mmol/L Normal 21-31 The [facility] Comment on above: Order Comment: No: D o not add to previous draw Performed By: #### 8 [id number] #### [facility] [address] [place] [address], [place] Creatinine [Mass/Vol] 0.97 mg/dL Normal 0.70-1.30 The [facility] Comment on above: Order Comment: No: D o not add to previous draw Performed By: #### 8 [id number] #### [facility] [address] [place] [address], [place] GFR/1.73 sq M.predicted among blacks MDRD (S/P/Bld) [Vol rate/Area] mL/min/{1.73_m2} Normal >60 The [facility] Comment on above: Order Comment: No: D o not add to previous draw Result Comment: Calc ulation may not be valid for patients over 70 years Performed By: #### 8 [id number] #### [facility] [address] [place] [address], [place] GFR/1.73 sq M.predicted among non-blacks MDRD (S/P/Bld) [Vol rate/Area] mL/min/{1.73_m2} Normal >60 [facility] Comment on above: Order Comment: No: D o not add to previous draw Result Comment: Calc ulation may not be valid for patients over 70 years Performed By: #### 8 [id number] #### [facility] [address] [place] [address], [place] Glucose [Mass/Vol] 191 mg/dL High 70-100 [facility] Comment on above: Order Comment: No: D o not add to previous draw Performed By: #### 8 [id number] #### [facility] [address] [place] [address], [facility] Potassium [Moles/Vol] 3.8 mmol/L Normal 3.5-5.1 The [facility] Comment on above: Order Comment: No: D o not add to previous draw Performed By: #### 8 [id number] #### [facility] [address] [place] [address], [place] Sodium [Moles/Vol] 134 mmol/L Low 136-145 The [facility] Comment on above: Order Comment: No: D o not add to previous draw Performed By: #### 8 5499 #### [facility] [address] [place] [address], [place] Urea nitrogen [Mass/Vol] 23 mg/dL Normal 7-25 The [facility] Comment on above: Order Comment: No: D o not add to previous draw Performed By: #### 8 [id number] #### [facility] [address] [place] [address], [facility] CBC COMPLETE BLOOD COUNTon 0 12-27-2020 Erythrocyte distribution width (RBC) [Ratio] 13.3 % Normal 11.5-15.0 The [facility] Comment on above: Order Comment: No: D o not add to previous draw Performed By: #### 8 [id number] #### [facility] [address] [place] [address], [facility] Hematocrit (Bld) [Volume fraction] 35.4 % Low 39.0-50.0 The [facility] Comment on above: Order Comment: No: D o not add to previous draw Performed By: #### 8 [id number] #### [facility] [address] [place] [address], [facility] Hemoglobin (Bld) [Mass/Vol] 11.7 g/dL Low 13.0-17.0 The [facility] Comment on above: Order Comment: No: D o not add to previous draw Performed By: #### 8 [id number] #### [facility] [address] [place] [id number], [facility] MCH (RBC) [Entitic mass] 31.2 pg Normal 27.0-33.0 The [facility] Comment on above: Order Comment: No: D o not add to previous draw Performed By: #### 8 [id number] #### [facility] [address] [place] [id number], [facility] MCHC (RBC) [Mass/Vol] 33.1 g/dL Normal 32.0-35.0 The [facility] Comment on above: Order Comment: No: D o not add to previous draw Performed By: #### 8 [id number] #### [facility] [address] [place] [id number], [facility] MCV (RBC) [Entitic vol] 94.4 fL Normal 82.0-98.0 [facility] Comment on above: Order Comment: No: D o not add to previous draw Performed By: #### 8 [id number] #### [facility] [address] [place] [id number], [facility] Nucleated RBC/100 WBC (Bld) [Ratio] 0 % Normal 0-0 [facility] Comment on above: Order Comment: No: D o not add to previous draw Performed By: #### 8 [id number] #### [facility] [address] [place] [id number], [facility] PLAT CNT 177 10*3/uL Normal 150-400 The [facility] Comment on above: Order Comment: No: D o not add to previous draw Performed By: #### 8 [id number] #### [facility] [address] [place] [id number], [facility] RBC (Bld) [#/Vol] 3.75 10*6/uL Low 4.20-5.70 The [facility] Comment on above: Order Comment: No: D o not add to previous draw Performed By: #### 8 [id number] #### [facility] [address] [place] [address], [facility] WBC (Bld) [#/Vol] 16.83 10*3/uL High 4.00-10.60 The [facility] Comment on above: Order Comment: No: D o not add to previous draw Performed By: #### 8 [id number] #### [facility] [address] Operative Reporton Operative Report MR#: [id number] I [facility] Pt. Name: Lizzy Yee Room #: [id number] Discharge Date: Birthdate: 1945 OPERATIVE REPORT DATE [...] cemented posterior stabilized total knee arthroplasty using [place] implants. COMPLICATIONS: None. TOTAL TOURNIQUET TIME: 92 [...] surgery. 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 The patient signed the consent form. Site was marked. We proceed with IV antibiotics in the form of 2 g of Ancef within an hour of the incision. PROCEDURE IN DETAIL: After written consent obtained, site was marked. The patient was taken to the [facility] OR and was seen by anesthesia. He [...] futu (more content not included)... Normal The [facility] POC GLUCOSE LABon 12-27-2020 Glucose [Mass/Vol] 200 mg/dL High 70-100 The [facility] Comment on above: Performed By: #### 8 [id number] #### [facility] [address] [place] [address], [place] Glucose [Mass/Vol] 186 mg/dL High 70-100 The [facility] Comment on above: Performed By: #### 8 [id number] #### [facility] [address] [place] [address], [place] Glucose [Mass/Vol] 250 mg/dL High 70-100 The [facility] Comment on above: Performed By: #### 8 [id number] #### [facility] [address] [place] [address], [place] Glucose [Mass/Vol] 177 mg/dL High 70-100 The [facility] Comment on above: Performed By: #### 8 [id number] #### [facility] [address] [place] [address], [place] POC GLUCOSE LABon 12-26-2020 Glucose [Mass/Vol] 230 mg/dL High 70-100 The [facility] Comment on above: Performed By: #### 8 [id number] #### [facility] [address] [place] [address], [place] Glucose [Mass/Vol] 278 mg/dL High 70-[address] [facility] [address] Comment on above: Performed By: #### 8 5499 #### [address] [place] [address], [facility] Glucose [Mass/Vol] 174 mg/dL High 70-100 The [facility] Comment on above: Performed By: #### 8 [id number] #### [facility] [address] [facility] [place] [address], [place] Glucose [Mass/Vol] 146 mg/dL High 70-100 The [facility] Comment on above: Performed By: #### 8 5499 #### [address] [place] [address], [facility] PORTABLE KNEE RIGHT 2 [facility] 12-26-2020 PORTABLE KNEE RIGHT 2 [facility] Department of Radiology [address] [place] [phone] ======== Patient Name: LIZZY YEE : 1945 Sex: M Age: Race: White Pt. Location: [place] [address] Patient Status: I Ordered Date: 12/26/2020 7:05:00 AM Completed Date: 12/26/2020 01:31 PM Requesting Provider: DANO CANO Attending Provider: HONG SCOTT Report Copy To: Signs & Symptoms: Post OP History: Comments: Hardware Evaluation, In PACU; Exam: PORTABLE KNEE RIGHT [address] [facility] ======== PORTABLE KNEE RIGHT 2 VWS [...] replacement. Electronically signed: José Thornton. Transcribed by: [email or web address], User Resident: JOSÉ THORNTON Electronically Signed by: JOSÉ THORNTON @ 12/26/2020 03:28 PM I personally read this/these film(s) with this resident Normal The [facility] Comment on above: Order Comment: Hardw are Evaluation, In PACU; HIP RIGHT 1 OR 2 VWS WITH PE LVISon 10-05-2020 HIP RIGHT 1 OR 2 VWS WITH PELVIS [facility] Department of Radiology [address] [place] [phone] ======== Patient Name: LIZZY YEE : [...] narrowing. Electronically signed: Mitul Banks. Transcribed by: [email or web address], User Resident: Electronically Signed by: MITUL BANKS @ 10/05/2020 01:08 PM Normal The [facility] Comment on above: Order Comment: Views (X-RAY, HIP): AP Pelvis, X-Table Lateral Hip , Weight Bearing?: Y KNEE LEFT 4VWSon 08-20-2020 KNEE LEFT 4VWS [facility] Department of Radiology [address] [place] [phone] ======== Patient Name: LIZZY YEE : 1945 Sex: M Age: Race: White Pt. Location: Patient Status: O Ordered Date: 08/20/2020 8:10:00 AM Completed Date: 08/20/2020 08:14 AM Requesting Provider: CEDRICK WILD Attending Provider: CEDRICK WILD Report Copy To: Signs & Symptoms: M25.569 Pain in unspecified knee I10 History: Blanca Comments: Views (X-RAY, KNEE): AP, Lateral, Tunnel, [place] , Weight Bearing?: Y Exam: KNEE LEFT 4VWS ======== KNEE LEFT 4VWS 08/20/2020 8:14 AM CLINICAL INDICATIONS: M25.569 Pain in unspecified knee I10 TECHNOLOGIST COMMENTS: Patient states having bilateral knee pain. QUESTION FOR THE RADIOLOGIST: Views (X-RAY, KNEE): AP, Lateral, Tunnel, [place] , Weight Bearing?: Y PROTOCOL: AP,Lateral,Tunnel and [...] reports Electronically signed: Ej Francisco. Transcribed by: [email or web address], User Resident: TAMERA MARIE Electronically Signed by: EJ FRANCISCO @ 08/20/2020 08:41 AM I personally read this/these film(s) with this resident Normal The [facility] Comment on above: Order Comment: Views (X-RAY, KNEE): AP, Lateral, Tunnel, [place] , Weight Bearing?: Y KNEE RIGHT 4 [facility] 1 KNEE RIGHT 4 [facility] Department of Radiology [address] [place] [phone] ======== Patient Name: LIZZY YEE : 1945 Sex: M Age: Race: White Pt. Location: 83 Patient Status: O Ordered Date: 08/20/2020 8:10:00 AM Completed Date: 08/20/2020 08:14 AM Requesting Provider: CEDRICK WILD Attending Provider: CEDRICK WILD Report Copy To: Signs & Symptoms: M25.569 Pain in unspecified knee I10 History: Cross Comments: Views (X-RAY, KNEE): AP, Lateral, Tunnel, [place] , Weight Bearing?: Y Exam: KNEE RIGHT [address] [facility] ======== KNEE RIGHT 4 S 08/20/2020 8:14 AM SIGNS AND SYMPTOMS: M25.569 Pain in unspecified knee I10 TECHNOLOGIST COMMENTS: Patient states having bilateral knee pain. QUESTION FOR THE RADIOLOGIST: Views (X-RAY, KNEE): AP, Lateral, Tunnel, [place] , Weight Bearing?: Y PROTOCOL: AP,Lateral,Tunnel and [...] knee. Electronically signed: Ej Francisco. Transcribed by: [email or web address], User Resident: Electronically Signed by: EJ FRANCISCO @ 08/20/2020 08:30 AM Normal The [facility] Comment on above: Order Comment: Views (X-RAY, KNEE): AP, Lateral, Tunnel, [place] , Weight Bearing?: Y Vital Signs Date Time Vital Sign Value Performing Clinician Facility 06-05-2023 10:00-0500 Body height 165.1 cm Juancarlos Cuenca Other [facility] Other 06-05-2023 10:00-0500 Body mass index (BMI) [Ratio] 39.87 kg/m2 Juancarlos Ball Other [facility] Other 06-05-2023 10:00-0500 Body weight 108.68 kg Juancarlos Ball Other [facility] Other 06-05-2023 10:00-0500 Diastolic blood pressure 71 mm[Hg] Juancarlos Ball Other [facility] Other 06-05-2023 10:00-0500 Respiratory rate 20 /min Juancarlos Ball Other [facility] Other 06-05-2023 10:00-0500 Systolic blood pressure 118 mm[Hg] Juancarlos Ball Other [facility] Other 05-06-2023 13:45-0400 Body height 165.1 cm Juancarlos Ball Other [facility] Other 05-06-2023 13:45-0400 Body mass index (BMI) [Ratio] 39.97 kg/m2 Juancarlos Ball Other [facility] Other 05-06-2023 13:45-0400 Body weight 108.95 kg Juancarlos Ball Other [facility] Other 05-06-2023 13:45-0400 Diastolic blood pressure 87 mm[Hg] Juancarlos Ball Other [facility] Other 05-06-2023 13:45-0400 Respiratory rate 16 /min Juancarlos Ball Other [facility] Other 05-06-2023 13:45-0400 Systolic blood pressure 158 mm[Hg] Juancarlos Ball Other [facility] Other 03-10-2023 11:00-0400 Body height 165.1 cm Juancarlos Ball Other [facility] Other 03-10-2023 11:00-0400 Body mass index (BMI) [Ratio] 39.3 kg/m2 Juancarlos Ball Other [facility] Other 03-10-2023 11:00-0400 Body weight 107.14 kg Juancarlos Ball Other [facility] Other 03-10-2023 11:00-0400 Diastolic blood pressure 67 mm[Hg] Juancarlos Ball Other [facility] Other 03-10-2023 11:00-0400 Respiratory rate 16 /min Juancarlos Ball Other [facility] Other 03-10-2023 11:00-0400 Systolic blood pressure 120 mm[Hg] Juancarlos Ball Other [facility] Other 10-16-2022 13:12-0400 Body temperature 97.11 [degF] Jay Gonzalez MD Work Phone: [facility] 10-16-2022 13:12-0400 Diastolic blood pressure 66 mm[Hg] Jay Gonzalez MD Work Phone: [facility] 10-16-2022 13:12-0400 Heart rate 51 /min Jay Gonzalez MD Work Phone: [facility] 10-16-2022 13:12-0400 SaO2% (BldA) [Mass fraction] 96 % Jay Gonzalez MD Work Phone: [facility] 10-16-2022 13:12-0400 Systolic blood pressure 143 mm[Hg] Jay Gonzalez MD Work Phone: [facility] 09-08-2022 13:30-0500 Body height 165.1 cm Juancarlos Ball Other [facility] Other 09-08-2022 13:30-0500 Body mass index (BMI) [Ratio] 39.33 kg/m2 Juancarlos Ball Other [facility] Other 09-08-2022 13:30-0500 Body weight 107.23 kg Juancarlos Ball Other [facility] Other 09-08-2022 13:30-0500 Diastolic blood pressure 70 mm[Hg] Juancarlos Ball Other [facility] Other 09-08-2022 13:30-0500 Respiratory rate 20 /min Juancarlos Ball Other [facility] Other 09-08-2022 13:30-0500 Systolic blood pressure 112 mm[Hg] Juancarlos Ball Other [facility] Other 01-27-2022 13:20-0400 Body height 165.1 cm Jus Bray MD Work Phone: [facility] 01-27-2022 13:20-0400 Body temperature 96.91 [degF] Jus Bray MD Work Phone: [facility] 01-27-2022 13:20-0400 Body weight 104.33 kg Jus Bray MD Work Phone: [facility] 01-27-2022 13:20-0400 Diastolic blood pressure 56 mm[Hg] Jus Bray MD Work Phone: [facility] 01-27-2022 13:20-0400 Heart rate 50 /min Jus Bray MD Work Phone: [facility] 01-27-2022 13:20-0400 SaO2% (BldA) [Mass fraction] 98 % Jus Bray MD Work Phone: [facility] 01-27-2022 13:20-0400 Systolic blood pressure 131 mm[Hg] Jus Bray MD Work Phone: [facility] 10-10-2021 10:46-0400 Body height 165.1 cm Jay Gonzalez MD Work Phone: [facility] 10-10-2021 10:46-0400 Body weight 102.51 kg Jay Gonzalez MD Work Phone: [facility] 10-10-2021 10:46-0400 Diastolic blood pressure 65 mm[Hg] Jay Gonzalez MD Work Phone: [facility] 10-10-2021 10:46-0400 Heart rate 76 /min Jay Gonzalez MD Work Phone: [facility] 10-10-2021 10:46-0400 Systolic blood pressure 137 mm[Hg] Jay Gonzalez MD Work Phone: [facility] 10-10-2021 10:44-0400 Body height 165.1 cm Jus Bray MD Work Phone: [facility] 10-10-2021 10:44-0400 Body weight 102.51 kg Jus Bray MD Work Phone: [facility] 10-10-2021 10:44-0400 Diastolic blood pressure 65 mm[Hg] Jus Bray MD Work Phone: [facility] 10-10-2021 10:44-0400 Heart rate 76 /min Jus Bray MD Work Phone: [facility] 10-10-2021 10:44-0400 SaO2% (BldA) [Mass fraction] 98 % Jus Bray MD Work Phone: [facility] 10-10-2021 10:44-0400 Systolic blood pressure 137 mm[Hg] Jus Bray MD Work Phone: [facility] Encounters Encounter Date Encounter Type Care Provider Facility Start: 10-01-2023 End: 10-01-2023 ambulatory ANGELA BINGHAM Not Available Start: 08-10-2023 (RD) Tool Room Supervisor Nirmala James [facility] Start: 08-10-2023 End: 08-10-2023 ambulatory Juancarlos Cuenca [employer] [facility] [employer] Other Start: 08-03-2023 End: 08-04-2023 ambulatory Hanh Wade MD Facility:[facility] Start: 07-27-2023 End: 07-28-2023 ambulatory Hanh Wade MD Facility:[facility] Start: 06-17-2023 End: 06-17-2023 ambulatory Juancarlos Cuenca Other [employer] [facility] [employer] Other Start: 06-17-2023 Telephone encounter Juancarlos Ball [facility] Start: 06-16-2023 End: 06-16-2023 ambulatory Juancarlos Cuenca Other [employer] [facility] [employer] Other Start: 06-16-2023 Telephone encounter Juancarlos Ball [facility] Start: 06-09-2023 End: 06-09-2023 ambulatory Juancarlos Cuenca Other [employer] [facility] [employer] Other Start: 06-09-2023 Telephone encounter Juancarlos Ball [facility] Start: 06-08-2023 End: 06-08-2023 ambulatory Juancarlos Cuenca Other [employer] [facility] [employer] Other Start: 06-08-2023 Telephone encounter Juancarlos Ball [facility] Start: 06-07-2023 End: 06-07-2023 ambulatory Juancarlos Ball Other [employer] [facility] [employer] Other Start: 06-07-2023 Telephone encounter Juancarlos Ball [facility] Start: 06-05-2023 End: 06-05-2023 ambulatory Juancarlos Ball Other [employer] [facility] [employer] Other Start: 06-05-2023 Office outpatient vi sit 25 minutes Juancarlos Ball [facility] Start: 05-27-2023 End: 05-27-2023 ambulatory Juancarlos Ball Other [employer] [facility] [employer] Other Start: 05-27-2023 Telephone encounter Juancarlos Ball [facility] Start: 05-17-2023 End: 05-17-2023 ambulatory Juancarlos Ball Other [employer] [facility] [employer] Other Start: 05-17-2023 Telephone encounter Juancarlos Ball [facility] Start: 05-15-2023 End: 05-15-2023 ambulatory Juancarlos Ball Other [employer] [facility] [employer] Other Start: 05-15-2023 Telephone encounter Juancarlos Ball [facility] Start: 05-07-2023 End: 05-07-2023 ambulatory Juancarlos Ball Other [employer] [facility] [employer] Other Start: 05-07-2023 Telephone encounter Juancarlos Ball [facility] Start: 05-06-2023 End: 05-06-2023 ambulatory Juancarlos Ball Other [employer] [facility] [employer] Other Start: 05-06-2023 Office outpatient vi sit 25 minutes Juancarlos Ball [facility] Start: 05-06-2023 Telephone encounter Juancarlos Ball [facility] Start: 04-22-2023 End: 04-22-2023 ambulatory [facility] Start: 04-04-2023 End: 04-04-2023 ambulatory Juancarlos Ball Other [employer] [facility] [employer] Other Start: 04-04-2023 Telephone encounter Juancarlos Ball [facility] Start: 03-10-2023 End: 03-10-2023 ambulatory Juancarlos Ball Other [employer] [facility] [employer] Other Start: 03-10-2023 Office outpatient vi sit 25 minutes Juancarlos Ball [facility] Start: 12-24-2022 End: 12-24-2022 ambulatory Juancarlos Ball Other [employer] [facility] [employer] Other Start: 12-24-2022 Telephone encounter Juancarlos BELL [facility] Start: 12-17-2022 End: 12-18-[address] NYA BIRD . Facility:[facility] Start: 12-16-2022 End: 12-16-2022 ambulatory RAINA CRONINSHMIPATHKathy . Facility: Start: 12-02-2022 End: 12-03-2022 ambulatory Nya BIRD Facility: [facility] Start: 11-28-2022 End: 11-29-2022 ambulatory MANAV CIROEUGENIA . Facility:[facility] Start: 11-28-2022 End: 11-29-2022 ambulatory NARENDRANATH LAKSHMIPATHY . Facility: Start: 11-11-2022 End: 11-11-2022 ambulatory NARENDRANATH LAKSHMIPATHY . Facility: Start: 10-28-2022 End: 10-29-[address] EVAN LAMAS . Facility:[facility] Start: 10-16-2022 End: 10-16-2022 ambulatory JAY GONZALEZ Facility:[facility] Start: 10-16-2022 End: 10-16-2022 Patient encounter procedure Jay Gonzalez MD Work Phone: General Surgery Comment on above: Ventral incisional h ernia (Primary Dx) Start: 10-11-2022 ambulatory JAY GONZALEZ Facility:[facility] Start: 10-11-2022 End: 10-11-2022 Subsequent hospital visit by physician [facility] Radiology Comment on above: 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] Start: 10-06-2022 Telephone encounter Jay patel MD Work Phone: General Surgery Comment on above: Patient Question Start: 09-16-2022 Telephone encounter Juancarlos BELL [facility] Start: 09-16-2022 End: 09-17-2022 ambulatory Nya BIRD [employer] [facility] [employer] Other Start: 09-16-2022 End: 09-27-2022 Pre-admission assessment Nya BIRD [facility] Start: 09-12-2022 Telephone encounter Juancarlos Cuenca RAY G [facility] Start: 09-12-2022 End: 09-13-[address] JUANCARLOS CUENCA [facility] [facility] Other Start: 09-08-2022 End: 09-08-2022 ambulatory Juancarlos Cuenca Other [facility] Other Start: 09-08-2022 Patient encounter procedure Juancarlos Bang Cuenca [facility] Start: 07-31-2022 End: 08-01-[address] EVAN LAMAS . Facility:[facility] Start: 07-03-2022 Encounter for preprocedural laboratory examination DR EVAN LAMAS . [facility] Start: 07-01-2022 End: 07-01-[address] EVAN LAMAS . Facility:[facility] Start: 06-27-2022 End: 06-28-[address] EVAN LAMAS . Facility:[facility] Start: 06-27-2022 End: 06-28-2022 Encounter for preprocedural laboratory examination DR EVAN LAMAS . Facility:[facility] Start: 05-29-2022 End: 05-30-[address] EVAN LAMAS . Facility:[facility] Start: 05-19-2022 End: 05-19-2022 ambulatory [facility] Start: 05-13-2022 End: 05-13-[address] EVAN [...] Start: 01-27-2022 End: 01-27-2022 ambulatory JUS BRAY Facility:[facility] Start: 01-27-2022 End: 01-27-2022 Patient encounter procedure Jus Bray MD Work Phone: Colorectal Surgery Comment on above: Polyposis of colon ( Primary Dx); Incisional hernia, without obstruction or gangrene Start: 10-11-2021 Telephone encounter Shilpa Storm MD Work Phone: [facility] Comment on above: Research Start: 10-10-2021 End: 10-10-2021 Patient encounter procedure Jay Gonzalez MD Work Phone: General Surgery Comment on above: Ventral incisional h ernia (Primary Dx) Polyposis of colon ( Primary Dx) Start: 12-26-2020 End: 12-29-2020 ambulatory JUANCARLOS CUENCA Facility:[facility] Start: 10-19-2020 End: 10-20-2020 ambulatory JUANCARLOS CUENCA Facility:[facility] Procedures Date Procedure Procedure Detail Performing Clinician [...] Hernia of anterior abdominal wall (disorder) Nya IBRD Start: 04-19-2004 Transrectal biopsy o f prostate [...] Ventral incisional hernia Expected: 10/10/2022, Expires: 11/09/2022 [facility] Work Phone: Comment on above: Expected: 10/10/2022 , Expires: 11/09/2022 Start: 07-20-2022 ADVANCE DIRECTIVE DISCUSSION ADVANCE DIRECTIVE DISCUSSION [facility] Start: 07-20-2022 DEPRESSION ASSESSMENT DEPRESSION ASS ESSMENT [facility] Start: 03-20-2022 Influenza vaccination INFLUENZA (#1) [facility] Start: 03-13-2022 Hemoglobin A1c/Hemoglobin.total in Blood HBA1C [facility] Start: 01-04-2022 COVID-19 VACCINE (5 - Booster for Pfizer series) COVID-19 VACCINE (5 - Booster for Pfizer series) [facility] Start: 07-20-2021 ADVANCE DIRECTIVE DISCUSSION ADVANCE DIRECTIVE DISCUSSION [facility] Start: 2009 PNEUMOVAX AGE 65 AND OVER WITH 5YR LOOKBACK (#1) PNEUMOVAX AGE 65 AND OVER WITH 5YR LOOKBACK (#1) [facility] Start: 1994 SHINGRIX VACCINE (1 of 2) SHINGRIX VACCINE (1 of 2) [facility] Start: 12-31-1963 Urine microalbumin profile DTAP,TDAP,TD (1 - Tdap) [facility] Start: 1962 ANNUAL PCP TEAM PLUGMAN MACY DISEASE VISIT ANNUAL PCP TEAM CHRONIC DISEASE VISIT [facility] Start: 1962 BP CONTROLLED (<130/80) BP CON TROLLED (<130/80) [facility] Start: 1962 Hepatitis B surface antibody level LDL CHOLESTEROL [facility] Start: 1962 HEPATITIS C SCREENING HEPATITIS C SC REENING [facility] Start: 1956 Adult depression screening assessment DEPRESSION SCREENING [facility] Start: 1954 3 comp foot exam completed DIABETIC FOOT EXAM [facility] Start: 1954 Hepatitis B screening URINE ALBUMIN:CREATININE RATIO [facility] Start: 1954 Hepatitis C antibody , confirmatory test DILATED RETINAL EXAM [facility] Start: 1950 PNEUMOCOCCAL: 65+ (1 - PCV) PNEUMOCOCCAL: 65+ (1 - PCV) [facility] End: 10-11-2022 Ct abdomen & pelvis w/o contrast material [facility] Work Phone: Comment on above: 1 Occurrences starti ng 10/11/2022 until 10/11/2022 End: 11-15-2023 Ct abdomen & pelvis w/o contrast material CT ABD/PEL WO IVCON Radiology Routine Ventral incisional hernia 1 Occurrences starting 10/16/2022 until 11/15/2023 [facility] Work Phone: Comment on above: 1 Occurrences starti ng 10/16/2022 until 11/15/2023 [facility] Immunizations Immunization Date Immunization Notes Care Provider Fa mirela 05-20-2022 influenza virus vaccine, unspecified formulation Nya BIRD [facility] [place] 05-16-2022 influenza, high dose seasonal, preservative-free Juancarlos Cuenca Other [employer] Other 05-16-2022 influenza virus vaccine, split virus (incl. purified surface antigen) Juancarlos Cuenca Other [facility] [facility] Other 04-15-2022 SARS-CoV-2 (COVID-19 ) [id number] Nya NILL [facility] 11-09-2021 COVID-19 Vaccine Pfi zer - Documentation Purposes Only Juancarlos Cuenca Other [employer] Other 11-09-2021 SARS-CoV-2 mRNA (zodavexhfmy-tbli-ajfvm se) vaccine Nya NILL [facility] 04-19-2021 SARS-CoV-2 (COVID-19 ) mRNA BNT-162b2 vax Nya NILL [facility] Comment on above: Result Comment: 2022: [id number] 09-05-2020 SARS-CoV-2 (COVID-19 ) mRNA BNT-162b2 vax Nya SAVAGEL [facility] Comment on above: Result Comment: 2022: [id number] 08-15-2020 COVID-19 Vaccine Moderna - Documentation Purposes Only Juancarlos Cuenca Other [employer] Other 08-15-2020 SARS-CoV-2 (COVID-19 ) mRNA BNT-162b2 vax Nya SAVAGEL [facility] Comment on above: Result Comment: 2022: [id number] 03-28-2020 influenza virus vaccine, split virus (incl. purified surface antigen) Juancarlos Cuenca Other [employer] Other 05-17-2019 influenza virus vaccine, split virus (incl. purified surface antigen) Juancarlos Cuenca Other [employer] Other 05-13-2018 influenza virus vaccine, split virus (incl. purified surface antigen) Juancarlos Cuenca Other [employer] Other 04-25-2015 influenza virus vaccine, split virus (incl. purified surface antigen) Juancarlos Cuenca Other [employer] Other 04-25-2015 pneumococcal conjuga te vaccine, 13 valent Juancarlos Cuenca Other [employer] Other 04-19-2014 pneumococcal polysaccharide vaccine, 23 valent Juancarlos Cuenca Other [employer] Other 04-20-2013 tetanus and diphther ia toxoids, adsorbed, preservative free, for adult use (5 Lf of tetanus toxoid and 2 Lf of diphtheria toxoid) Juancarlos Cuenca Other [employer] Other 04-21-2012 pneumococcal polysaccharide vaccine, 23 valent Juancarlos Cuenca Other [employer] Other Payers Date Payer Category Payer Self-pay 2023 Unknown 2020 Private Health Insurance [facility] AARP SUPPLEMENT [id number] 2020-Present [phone] [address] [place] [address] Indemnity [id number] 2020 Private Health Insurance [facility] AARP SUPPLEMENT [id number] 2020-Present [phone] [address] [place] [address] Indemnity [id number] 2009 Medicare MEDICARE MEDICAR E A AND B [id number] 2009-Present [phone] [place] [address] Medicare [id number] 2009 Medicare [id number] 1959 Medicare [id number] 1959 Unknown [id number] 1944 Unknown [id number] 2.16.840.1.564396.3.579.2 .647 1944 Unknown [id number] 2.16.840.1.409182.3.579.2 .647 1944 Unknown [id number] 2.16.840.1.560149.3.579.2 .593 1944 Unknown [id number] 2.16.840.1.088802.3.579.2 .593 1944 Unknown [id number] 2.16.840.1.715842.3.579.2 .593 1944 Unknown [id number] 2.16.840.1.498707.3.579.2 .593 1944 Unknown [id number] 2.16.840.1.288900.3.579.2 .593 1944 Unknown [id number] 2.16.840.1.908072.3.579.2 .593 1944 Unknown [id number] 2.16.840.1.647012.3.579.2 .593 1944 Unknown [id number] 2.16.840.1.725330.3.579.2 .593 1944 Unknown [id number] 2.16.840.1.400201.3.579.2 .593 1944 Unknown [id number] 2.16.840.1.883730.3.579.2 .593 1944 Unknown [id number] 2.16.840.1.516533.3.579.2 .593 1944 Unknown [id number] 2.16.840.1.076632.3.579.2 .593 1944 Unknown [id number] 2.16.840.1.878032.3.579.2 .593 1944 Unknown [id number] 2.16.840.1.187554.3.579.2 .593 1944 Unknown [id number] 2.16.840.1.994245.3.579.2 .593 1944 Unknown [id number] 2.16.840.1.621526.3.579.2 .593 1944 Unknown [id number] 2.16.840.1.434786.3.579.2 .593 1944 Unknown [id number] 2.840.1.081082.3.579.2 .593 1944 Unknown [id number] 2.16.840.1.687291.3.579.2 .593 1944 Unknown [id number] 2..840.1.586474.3.579.2 .727 1944 Unknown [id number] 2.16.840.1.604501.3.579.2 .727 1944 Unknown [id number] 2.840.1.491560.3.579.2 .727 1944 Unknown [id number] 2.16.840.1.255581.3.579.2 .196 1944 Unknown [id number] 2.16.840.1.072221.3.579.2 .196 1944 Unknown [id number] 2.16.840.1.084015.3.579.2 .1259 Unknown [id number] Unknown [id number] 2.16840.1.389348.19 Unknown [id number] 2.16.840.1.418125.3.579.2 .531 Social History Date Type Detail Facility Start: 05-21-2021 End: 10-16-2022 Tobacco smoking status NHIS Ex-smoker [facility] End: 07-20-1994 History of tobacco use Current smoker [facility] End: 07-20-1994 History of tobacco use Cigar Smoker [facility] Start: 05-21-2021 End: 10-16-2022 Tobacco use and exposure Smokeless tobacco non-user [facility] Start: 10-10-2021 End: 10-16-2022 Alcohol intake Ex-drinker (finding) [facility] Start: 05-21-2021 End: 10-16-2022 Tobacco Comment Quit 15+ years [facility] Start: 1945 Sex Assigned At Not on file C [facility] Start: 08-25-2021 End: 09-24-2021 Exposure to SARS-CoV-2 (event) Not sure [facility] Start: 09-16-2022 Tobacco smoking status Never s moked tobacco (finding) [facility] [place] Tobacco smoking status Former sm okeless tobacco user, quit more than 30 days ago [facility] [place] Sex Assigned At Male [facility] Medical Equipment Procedure Code Equipment Code Equipment Origin al Text Equipment Identifier Dates Mesh Parietene Polypropylene Macroporous [id number] Surgical Monofilament - [id number] Start: 09-24-2021 Clinical Notes 12-29-2020 to 08-10-2023 Note Date & Type Note Facility 08-10-2023 Evaluation note Encounter Date Diagnosis Assessment Notes Jul, Other Summary of Visit: (A) Meal timing (B) DM2 nutrition education (C) Answered general, nutrition-rela maru questions [facility] Other 11-28-2023 Evaluation note* Encounter Date Diagnosis Assessment Notes Treatment Notes Treatment Clinical Notes May, Type 2 diabetes mellitus with hyperglycemia, without long-term current use of insulin (ICD-10 - E11.65) [employer] [facility] [employer] Other 11-28-2023 Evaluation note* Encounter Date Diagnosis Assessment Notes Treatment Notes Treatment Clinical Notes May, Primary hypertension (ICD-10 - I10) [employer] Other 11-21-2023 Evaluation note* Encounter Date Diagnosis Assessment Notes Treatment Notes Treatment Clinical Notes May, Type 2 diabetes mellitus with hyperglycemia, without long-term current use of insulin (ICD-10 - E11.65) [employer] Other 11-17-2023 Evaluation note* Encounter Date Diagnosis [...] use, the patient reduces the risk for CO, CVA, HTN, cardiac dysrhythmias and sudden cardiac [...] index [BMI] 39.0-39.9, adult (ICD-10 - Z68.39) [employer] Other 11-08-2023 Evaluation note* Encounter Date Diagnosis Assessment Notes Treatment Notes Treatment Clinical Notes May, Primary hypertension (ICD-10 - I10) [employer] Other 10-29-2023 Evaluation note* Encounter Date Diagnosis Assessment Notes Treatment Notes Treatment Clinical Notes Apr, Type 2 diabetes mellitus with hyperglycemia, without long-term current use of insulin (ICD-10 - E11.65) Apr, Primary hypertension (ICD-10 - I10) [employer] Other 10-19-2023 Evaluation note* Encounter Date Diagnosis Assessment Notes Treatment Notes Treatment Clinical Notes Apr, Type 2 diabetes mellitus with hyperglycemia, without long-term current use of insulin (ICD-10 - E11.65) [employer] Other 10-18-2023 Evaluation note* Encounter Date Diagnosis Assessment Notes Treatment Notes Treatment Clinical Notes Apr, ASHD (arteriosclerotic heart disease) (ICD-10 - I25.10) This patient is stable without activity related CP, dyspnea or lightheadedness. They are instructed to continue exercise and AHA diet plan. Continue secondary prevention measures. Interactive Graphic Designer suggesting SGLT-2 for dual benefit w/ ASHD [...] contributed. 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 Inspect feet daily for cuts. Continue secondary prevention measures. Scheduled post op JAMIR [employer] Other 10-18-2023 Evaluation note* Encounter Date Diagnosis Assessment Notes Treatment Notes Treatment Clinical Notes Apr, Type 2 diabetes mellitus with hyperglycemia, without long-term current use of insulin (ICD-10 - E11.65) [employer] [facility] Chief Complaint: Patient here for 1 year follow up CAD, PVD, and hypertension. He underwent LE angiogram last month with Dr. Mccurdy of [facility]. He sees him for [...] history of Coronary artery disease, Diabetes mellitus ([facility]), Hypertension, PVD (peripheral vascular disease) ([facility]), and Sleep apnea. Surgical History He has [...] common femoral artery. Surgeon: Jyoti Mccurdy Primary Hot [place]ale Worker: None. Anesthesia: Local with 1% lidocaine and sedation. EBL: 10 cc Complications: None. 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 Procedure: Patient was brought to the angiogram suite. He was placed on the table in supine position. Left groin area was prepped and draped in the usual sterile fashion. Patient was given (more content not included)...[facility]08-22-2023 Evaluation note* Encounter Date Diagnosis Assessment [...] use, the patient reduces the risk for CO, CVA, HTN, cardiac dysrhythmias and sudden cardiac [...] [BMI ] 39.0-39.9, adult (ICD-10 - Z68.39) [employer] Other 05-31-2023 NoteOPERATIVE NOTE OPERATION DATE: 11/29/2022 [...] in three years. CC: Juancarlos Cuenca D.O.[facility] [id number] NotePROCEDURE: XR HIP LT 2 3V WO PELVIS HISTORY: Pain of left hip joint COMPARISON: None. FINDINGS: BONES:No fracture, acute abnormality, or significant arthropathy. SOFT TISSUES:No visible soft tissue swelling. EFFUSION:None visible. OTHER: Negative. IMPRESSION: 1. No acute bone abnormality. 2. Mild degenerative joint disease. Electronically authenticated by: GABY PADILLA Date: 2022-11-28 13:08[facility]04-11-2023 NoteCONSULTATION CONSULTATION DATE: 10/28/2022 TO: Juancarlos Cuenca [...] our patients to inform us about any ojet-lnx-lyrouyh medications or herbal remedies/nutritional supplements/alternative remedies. 2. [...] treatment options with their primary care provider.[facility] [id number] NoteHNO ID: [id number] Author: Jay Gonzalez MD Service: ? Author Type: Physician Type: Progress Notes Filed: 10/16/2022 3:05 PM Note Text: [facility] - Follow Up [...] Gonzalez MD 10/16/22, 2:45 PM General Surgery [facility]03-30-2023 NoteHNO ID: [id number] Author: Destiny Zapata MA Service: ? Author Type: Dinkey Engine Mechanic Type: Progress Notes Filed: 10/16/2022 3:05 PM Note Text: What is the reason for your visit today? Follow up 1 year Who is your referring physician? Are you having poor oral intake? NO Have you had unintentional weight loss of 15 lbs/7 Kg in the last 3-6 months? NO Bowels: regular Wound: Temperature: No Drains: [facility]03-30-2023 History of Present illness Narrative* Jay Gonzalez MD - 10/16/2022 2:38 PM EDT [facility] - Follow Up [...] Gonzalez MD 10/16/22, 2:45 PM General Surgery [facility] * Destiny Zapata MA - 10/16/2022 1:09 PM EDT What is the reason for your visit today? Follow up 1 year Who is your referring physician? Are you having poor oral intake? NO Have you had unintentional weight loss of 15 lbs/7 Kg in the last 3-6 months? NO Bowels: regular Wound: Temperature: No Drains: No [facility] Miscellaneous Notes* Allied Health - RT Marisa(R) [...] 11, 2022 10:29 AM documented in [facility] encounter[facility]-2023 Miscellaneous Notes* Telephone Encounter - Efrain Zamarripa [...] so at a non cc facility. PH: [phone] documented in this encounterReg[facility]02-24-2023 Evaluation note* Encounter Date Diagnosis Assessment Notes Treatment Notes Treatment Clinical Notes Aug, Left carotid artery stenosis (ICD-10 - I65.22) US: right <50%, left 50-69% - 10/2020 US: right <50%, left 80-90% - 08/2022 [employer] Other 02-20-2023 Evaluation note* Encounter Date Diagnosis [...] use, the patient reduces the risk for CO, CVA, HTN, cardiac dysrhythmias and sudden cardiac [...] reviewed and amended by provider signed below. [employer] Other 01-12-2023 NoteCONSULTATION PROCEDURE DATE: 09/18/2022 PREOPERATIVE [...] will be followed up in the office.[id number] NoteCONSULTATION CONSULTATION DATE: 07/31/2022 HISTORY OF PRESENT [...] and the patient agrees with this plan.[facility] 05-29-2022 NoteCONSULTATION CONSULTATION DATE: 05/29/2022 HISTORY [...] be followed up in the clinic thereafter.[facility] [id number] NotePatient here for 1 year follow up CAD, hypertension, and PVD. Had labs in September 2021 while at [facility] for colon surgery/hernia repair. He became hypotensive s/p surgery so his BP meds were adjusted. Denies chest pain and palpitations. Says his SOB with exertion remains unchanged. Review of Systems Cardiovascular: Positive for dyspnea on exertion. Musculoskeletal: Positive for arthritis, back pain, joint pain, muscle weakness and myalgias. Neurological: Positive for light-headedness and numbness.[facility]10-31-2022 NoteSUBJECTIVE Chief Complaint Patient presents with Coronary Artery Disease Hypertension Peripheral Vascular Disease Lizzy Yee is a 76 y.o. male here for follow-up. HPI Patient here for 1 year follow up CAD, hypertension, and PVD. Had labs in September 2021 while at [facility] for colon surgery/hernia repair. He became [...] position changes. HOSPITAL COURSE (from 09/2021 at [facility]): Mr Yee is a 75 year [...] Coronary artery disease PVD (peripheral vascular disease) ([facility] Hx of CABG Past Medical History: Diagnosis Date Coronary artery disease Diabetes mellitus ([facility]) Hypertension PVD (peripheral vascular disease) ([facility]) Sleep apnea Family History Problem Relation Name [...] 0.4 mg by mo (more content not included)...[facility]10-06-2022 NoteCONSULTATION CONSULTATION DATE: 04/24/2022 This is [...] 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 A refill for Baclofen 10 mg q.h.s. [...] knee osteoarthritis. The patient is in agreement.[facility] [id number] Note CONSULTATION CONSULTATION DATE: 03/25/2022 CHIEF COMPLAINT: 1. Low back pain. 2. Left knee pain. HISTORY OF PRESENT ILLNESS: This is a very pleasant, 76-year-old male, who is known to the pain practice remote. The patient had a right total knee replacement at [facility]. The patient is doing well with regards [...] patient understands and would like to proceed.[facility] 01-27-2022 NoteHNO ID: [id number] Author: Jus Bray MD Service: ? Author [...] Follow up anytime as needed. Jus Bray, [facility]07-11-2022 Nurse Note* Sarah Osman MA - [...] Temperature: No Drains: No documented [facility] History of Present illness Narrative* Jus Bray [...] needed. Jus Bray MD documented in this encounterReg[facility]03-25-2022 Miscellaneous Notes* Telephone Encounter - Shan Savagechristinemarin - 10/11/2021 3:09 PM EDTSummary: IRB#: [id number] Research Outreach IRB# [id number], Qualitative Interviews in Postoperative Gastrointestinal Dysfunction (POGD). PI: Shilpa Storm MD, SANJIV, FASA. Outcomes Research Department. [facility] [place]. This is a research study note. Patient [...] there for his review. Shan Parham Research [place] Worker [facility] [place] Outcomes Research Department documented in this encounterRegency Hospital [facility]03-24-2022 History of Present illness Narrative* Jay Gonzalez MD - 10/10/2021 1:37 PM EDT [facility] Abdominal [facility] - Follow Up Visit Assessment/Plan: [...] the care that he received while at [place]. Objective: AAOx3, NAD Non-labored respirations on room [...] Gonzalez MD 10/10/21, 1:37 PM General Surgery [facility] documented in this encounterRegency Hospital [facility]03-24-2022 History of Present illness Narrative* Jus Bray MD - 10/10/2021 11:00 AM EDT HPI Lizzy Yee is a 75 year old male here today for postop Open subtotal colectomy with stapled [id number] ileosigmoid anastomosis ventral herniorrhaphy with transversus abdominus [...] months Jus Bray MD documented in this encounterRegency [facility]03-24-2022 Nurse Note* Elena Ferrell MA - 10/10/2021 10:45 AM EDT What is the reason for your visit today? Follow up Who is your referring physician? Self Are you having poor oral intake? NO Have you had unintentional weight loss of 15 lbs/7 Kg in the last 3-6 months? NO Bowels: regular Wound: none Temperature: No Drains: No documented in this encounterRegency [facility]03-08-2022 History of Past illness Narrative* Problem Noted Date Resolved Date 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 documented as of this encounter (statuses as of 10/10/2021) [address]08-2022 History of Past illness Narrative* Problem Noted Date Resolved Date 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 documented as of this encounter (statuses as of 10/10/2021) [facility]03-08-2022 History of Past illness Narrative* Problem Noted Date Resolved Date 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 documented as of this encounter (statuses as of 10/11/2021) [address]08-2022 History of Past illness Narrative* Problem Noted Date Resolved Date 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 documented as of this encounter (statuses as of 02/05/2022) [facility]03-08-20[facility] History of Past illness Narrative* Problem Noted Date Resolved Date 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 documented as of this encounter (statuses as of 10/07/2022) [address]08-2022 History of Past illness Narrative* Problem Noted Date Resolved Date 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 documented as of this encounter (statuses as of 10/12/2022) [address]08-2022 History of Past illness Narrative* Problem Noted Date Resolved Date 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 documented as of this encounter (statuses as of 10/12/2022) [facility]03-08-2022 History of Past illness Narrative* Problem Noted Date Resolved Date 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 documented as of this encounter (statuses as of 10/16/2022) [facility]06-12-2021 NoteMR#: [id number] [facility] Pt. Name: Lizzy Yee Admitted: 12/26/2020 Discharged: 12/29/2020 Date of : 1945 Physician: Ty Avalos M.D. DISCHARGE SUMMARY [facility] Pt. Name: Kurt Yee Admitted: 12/26/20 [...] CONDITION AT DISCHARGE: Stable DISPOSITION: Home with [facility] DISCHARGE INSTRUCTIONS: Take medications as prescribed, follow [...] Cano MD Date Trans: 12/29/2020 08:18 P/ BARRETT_JN:[id number] cc: Juancarlos Cuenca D.O. [address] [place] [id number] [facility] HospitalEvaluation + Plan note No data available for this section [facility]* Diagnosis Ventral incisional hernia- Primary [facility] Diagnosis Polyposis of colon- Primary Benign neoplasm of colon documented in this encounter [facility] note* Diagnosis Polyposis of colon- Primary Benign neoplasm of colon Incisional hernia, without obstruction or gangrene Incisional hernia without mention of obstruction or gangrene documented in this encounter [facility] noteNo InformationNortCurahealth [facility] Other Evaluation note* Diagnosis Ventral incisional hernia documented in this encounter [facility] note* Diagnosis Ventral incisional hernia- Primary documented in this encounter [facility] general Narrative - Reported* Type Description [...] HEMICOLECTOMY 2003 Hospitalization History SEE SURGICAL [facility]X [place] [facility] - [facility]* Type Description [...] Colonoscopy 12/2022 Hospitalization History SEE SURGICAL HX [employer] Other History general Narrative - Reported* Type [...] anaya 03/2023 Hospitalization History SEE SURGICAL HX [employer] [facility] [employer] Other Hospital Discharge instructions No data available for this section [facility] CenterProgress note No data available for this section [facility] CenterReason for referral (narrative)* Reason 10/09/22 Referral for carotid artery stenosis Diagnosis 1 Left carotid artery stenosis (I65.22) Referral Organization [facility] nemo Referring Provider First Name Juancarlos Referring Provider Last Name Bang Referring Provider Specialty Internal Me dicine Ref[facility] Referred Provider Jyoti Mccurdy Referred Address [address], [place],[address] Referred Provider Specialty Vascular Ruslan kajal Referral Priority Routine Referral Appointment Date 2022-10-09 General Notes Mr. Hooper is being r eferred for carotid artery stenosis. He recently completed carotid artery US at [facility], which revealed 87% left carotid bulb stenosis. The ICA velocities are not elevated, which was suggested to be due to hemodynamically significant stenosis in the left bulb. Seema Jaquez 09/23/2022 01:11:23 PM >received today, attachments made, referral faxed Janae Fulton 09/29/2022 02:11:56 PM > Patient is scheduled on 10/09 at 10 a.m. at [facility] Clinical Notes Mr. Hooper is being r eferred for further evaluation and treatment of left carotid artery stenosis. He has multiple risk factors, including HTN, HLD, DM and PAD. He has no history of TIA or CVA. He denies diplopia, loss of vision, dysarthria, facial droop or unilateral extremity weakness. F: [id number] [employer] Other Summary Purpose Family History No Family History Records FoundNo Family History Records FoundNo Family History Records FoundNo Family History Records FoundNo Family History Records FoundNo Family History Records FoundNo Family History Records FoundNo Family History Records FoundNo Family History Records Found Advance Directives No Advanced Directives Records FoundDocuments on File Type Date Recorded Patient Mosaicist Expl anation Advance Directive(s) 09/24/2021 8:40 AM Advance Directive(s) 06/07/2021 10:19 AM Advance Directive(s) 05/15/2021 3:36 PM M ain Documents on File Type Date Recorded Patient Mosaicist Expl anation Advance Directive(s) 09/24/2021 8:40 AM Advance Directive(s) 06/07/2021 10:19 AM Advance Directive(s) 05/15/2021 3:36 PM M ain Documents on File Type Date Recorded Patient Mosaicist Expl anation Advance Directive(s) 09/24/2021 8:40 AM Documents on File Type Date Recorded Patient Mosaicist Expl anation Advance Directive(s) 09/24/2021 8:40 AM Reason for Referral Specialty Diagnoses / Procedures Referred By Contac t Referred To Contact CT IMAGING Diagnoses Ventral incisional hernia Procedures CT ABD/PEL WO IVCON CT ABD & PELVIS W/O CONTRAST Jay Gonzalez MD [address] [place] [address] Ct Imaging Referral ID Status Reason Start Date Expiration Date Visits Requested Visits Authorized [id number] Pending Review Auto-Generat ed Referral 10/10/2022 11/09/2022 1 1 Referral ID Status Reason Start Date Expiration Date V isits Requested Visits Authorized [id number] Closed Auto-Generate d Referral 10/10/2022 11/09/2022 1 1 Specialty Diagnoses / Procedures Referred By Olegario gonsalves Referred To Contact CT IMAGING Diagnoses Ventral incisional hernia Procedures CT ABD/PEL WO IVCON CT ABD & [place] [address] [place] [address] Ct Imaging Referral ID Status Reason Start Date Expiration Date Visits Requested Visits Authorized [id number] Pending Review Auto-Generat ed Referral 10/16/2022 11/15/2023 1 1 Additional Source Comments (unrecognized sect ion and content) No Status Records FoundNo Status Records FoundNo Status Records FoundNo Status Records FoundNo Status Records FoundNo Status Records FoundNo Status Records FoundNo Status Records FoundNo Status Records Found INFORMATION SOURCE (unrecogn ized section and content) DATE CREATED AUTHOR 03/11/2021 [facility] DATE CREATED AUTHOR AUTHOR'S ORGANIZ ATION 10/13/2022 [facility] DATE CREATED AUTHOR AUTHOR'S ORGANIZ ATION 10/21/2022 [facility] DATE CREATED AUTHOR AUTHOR'S ORGANIZ ATION 12/29/2022 [facility] DATE CREATED AUTHOR AUTHOR'S ORGANIZ ATION 12/29/2022 [facility] DATE CREATED AUTHOR AUTHOR'S ORGANIZ ATION 04/26/2023 [facility] DATE CREATED AUTHOR AUTHOR'S ORGANIZ ATION 08/12/2023 [facility] DATE CREATED AUTHOR AUTHOR'S ORGANIZ ATION 08/28/2023 [facility] DATE CREATED AUTHOR AUTHOR'S ORGANIZ ATION 10/02/2023 [facility] EPIC Source Comments (unrecognize d section and content) In the event this informatio n is protected by the Federal Confidentiality of Alcohol and Drug Abuse Patient Records regulations: The Federal rules restrict any use of the information to criminally investigate or prosecute any alcohol or drug abuse patient.[facility]In the event this information is protected by the Federal Confidentiality of Alcohol and Drug Abuse Patient Records regulations: The Federal rules restrict any use of the information to criminally investigate or prosecute any alcohol or drug abuse patient.[facility] EastIn the event this information is protected by the Federal Confidentiality of Alcohol and Drug Abuse Patient Records regulations: The Federal rules restrict any use of the information to criminally investigate or prosecute any alcohol or drug abuse patient.[facility] EastIn the event this information is protected by the Federal Confidentiality of Alcohol and Drug Abuse Patient Records regulations: The Federal rules restrict any use of the information to criminally investigate or prosecute any alcohol or drug abuse patient.[facility] EastIn the event this information is protected by the Federal Confidentiality of Alcohol and Drug Abuse Patient Records regulations: The Federal rules restrict any use of the information to criminally investigate or prosecute any alcohol or drug abuse patient.[facility] EastIn the event this information is protected by the Federal Confidentiality of Alcohol and Drug Abuse Patient Records regulations: The Federal rules restrict any use of the information to criminally investigate or prosecute any alcohol or drug abuse patient.[facility] EastIn the event this information is protected by the Federal Confidentiality of Alcohol and Drug Abuse Patient Records regulations: The Federal rules restrict any use of the information to criminally investigate or prosecute any alcohol or drug abuse patient.[facility] EastIn the event this information is protected by the Federal Confidentiality of Alcohol and Drug Abuse Patient Records regulations: The Federal rules restrict any use of the information to criminally investigate or prosecute any alcohol or drug abuse patient.[facility] Reason for Visit (unrecogniz ed section and content) Reason Comments Follow Up Reason Comments Follow Up Reason Onset Date Comments Research 10/11/2021 Reason Comments Established Patient Follow-Up Reason Comments Patient Question Specialty Diagnoses / Procedures Referred By Contac t Referred To Contact CT IMAGING Diagnoses Ventral incisional hernia Procedures CT ABD/PEL WO IVCON CT ABD & PELVIS W/O CONTRAST Jay Gonzalez MD [address] [place] [address] Ct Imaging Referral ID Status Reason Start Date Expiration Date V isits Requested Visits Authorized [id number] Closed Auto-Generate d Referral 10/10/2022 11/09/2022 1 1 Reason Comments Follow Up 1 year, ventral inci sional hernia Care Teams (unrecognized sec tion and content) Admin Assistant Relationship Specialty Start Date End Date Juancarlos Cuenca DO PCP - General Internal Medicine 10/23/14 [facility] [address] [place] [phone] Cardiology 09/13/21 Admin Assistant Relationship Specialty Start Date End Date Juancarlos Cuenca DO PCP - General Internal Medicine 10/23/14 [facility] [address] [place] [phone] Cardiology 09/13/21 Admin Assistant Relationship Specialty Start Date End Date Juancarlos Cuenca DO PCP - General Internal Medicine 10/23/14 [facility] [address] [place] [phone] Cardiology 09/13/21 Admin Assistant Relationship Specialty Start Date End Date Juancarlos Cuenca DO PCP - General Internal Medicine 10/23/14 Pedro Richardson MD Cardiology 09/13/21 Admin Assistant Relationship Specialty Start Date End Date Juancarlos Cuenca, PCP - General Internal Medicine 10/23/14 Pedro Richardson MD Cardiology 09/13/21 Admin Assistant Relationship Specialty Start Date End Date Juancarlos Cuenca DO PCP - General Internal Medicine 10/23/14 Pedro Richardson MD Cardiology 09/13/21 Admin Assistant Relationship Specialty Start Date End Date Juancarlos Cuenca DO PCP - General Internal Medicine 10/23/14 Pedro Richardson MD Cardiology 09/13/21 Admin Assistant Relationship Specialty Start Date End Date Juancarlos [...] BE BASED ON THE PRIMARY CLINICAL RECORDS. [facility] provides no warranty or guarantee of the accuracy or completeness of information in this document.
== END 2023-10-27 11:59 | disposition home or self-care (01) ==
LOC: MRI 11:58
PROVIDERS: PCP Internal Medicine; Visit Provider Internal Medicine
DX: K83.8 Other specified diseases of biliary tract (principal); R74.8 Abnormal levels of other serum enzymes
CPT/HCPCS: 74181

== ENCOUNTER 2023-11-12 09:11 | Outpatient (OUT) | payer MEDICARE, SELFPAY ==
--- NOTE | 2023-11-12 09:30 | CA_ITS ---
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1945 Requested By: MADELEINE SCOTT Order Number: [id number] Reading MD: GARY CUENCA Interpretive Statements Monophasic doppler waveform PVR waveform with normal upstroke and amplitude butloss of dicrotic notch Right: - significant pressure gradient between the thigh and calf cuff - significant pressure gradient between the calf and DP cuff - normal JAMIR Left: - signficant pressure gradient between the calf and DP cuff - normal JAMIR Impression: - Elevated indices (B/L thigh, B/L calf and left DP) consistent with calcified, noncompressible arterial molina, which may underestimate the degree of arterial disease present - normal arterial evaluation of the lower extremity without hemodynamic impairment of the B/L lower extremities at rest (right JAMIR 1.08, left JAMIR 1.34) - B/L TBI are normal Electronically Signed On 11-13-2023 6:58:55 EDT by GARY CUENCA
--- OUTSIDE RECORDS SUMMARY | 2023-11-12 09:32 | XMS_ITS | CCD ---
Author Organization [facility] Care Team Providers Care Pulley Man Name Role Phone JUANCARLOS CUENCA Referring Unavailable JUANCARLOS CUENCA Primary Care Unavailable AhmedDelonte Admitting Unavailable Delonte Webb Attending Unavailable JUANCARLOS CUENCA Referring Unavailable TY AVALOS Surgeon Unavailable TY AVALOS Admitting Unavailable JUANCARLOS CUENCA Primary Care Unavailable TY AVALOS Attending Unavailable DE Procedure Practitioner Unavailab Juancarlos Delatorre DO Primary Care Provider Pedro Richardson Ahmed Unavailable [phone] Dylan VANESSA, [facility] Ahmed Unavailable JUANCARLOS CUENCA Primary Care Physician Juancarlos Cuenca Unavailable Juancarlos Cuenca DO Primary Care Provider Dylan VANESSA, ab Ahmed Unavailable [phone] JAY GONZALEZ Referring Unavailable JUANCARLOS CUENCA Primary Care Unavailable JAY GONZALEZ Referring Unavailable JUANCARLOS CUENCA Primary Care Unavailable ADAMS ., DR EVAN Mcleod Admitting Unavailable LAMAS ., DR EVAN Mcleod Consulting Unavailable BANG, DR VEGA Primary Care Unavailable LAMAS ., DR EVAN Mcleod Attending Unavailable LAKSHMIPATHY ., RAINA Attending Janki vailable LAKSHMIPATHY ., RAINA Admitting Janki vailable LAKSHMIPATHY ., RAINA Consulting Janki vailable BANG, DR VEGA Primary Care Unavailable BANG, DR VEGA Primary Care Unavailable BAGN, DR VEGA Attending Unavailable BALL, DR VEGA Admitting Unavailable BALL, DR VEGA Consulting Unavailable HALKER ., MANAV Attending Unavailable BALL, DR VEGA Primary Care Unavailable HALKER ., MANAV Admitting Unavailable ZIEBER, DR GABY Patel Consulting Unavailable HALKER ., MANAV Consulting Unavailable BANG, DR VEGA Attending Unavailable BALL, [...] VEGA Primary Care Unavailable LAMAS ., DR EAVN Mcleod Attending Unavailable FULLER ., CHRISTIN Consulting Unavailable LAKSHMIPATHY ., RAINA Attending Janki vailable LAKSHMIPATHY ., NARJODY Admitting Janki vailable LAKSHMIPATHY ., RAINA Consulting Janki vailable BALL, DR VEGA Primary Care Unavailable LAMAS ., DR EVAN Mcleod Attending Unavailable LAMAS ., DR EVAN cMleod Admitting Unavailable BALL, DR VEGA Primary Care [...] Consulting Unavailable BALL, DR VEGA Admitting Unavailable RANDY, DR GABY Patel Consulting Unavailable ADAMS ., DR EVAN Mcleod Admitting Unavailable ADAMS ., DR EVAN Mcleod Consulting Unavailable BANG, DR VEGA Primary Care Unavailable ADAMS ., DR EVAN Mcleod Attending Unavailable LELA HUGHES Consulting Unavailable NILNya Rader Attending Unavailable NILAndreas, Nya Patel Attending Unavailable NILNya Rader Attending Unavailable MARINO MOE Attending Unavailable PEDRO RICHARDSON Attending Unavailable Mauro VANESSA, Hanh Chiang Attending Unavailable Mauro VANESSA, Hanh Chiang Attending Unavailable Nirmala James Unavailable Juancarlos Cuenac Attending Unavailable Juancarlos Cuenca Primary Care Unavailable Juancarlos Cuenca Admitting Unavailable ANGELA BINGHAM Attending Unavailable JAY GONZALEZ Attending Unavailable JUANCARLOS CUENCA Primary Care Unavailable Allergies Allergy Classification Reported Allergen(s) Allergy Type Date of Onset Reaction(s) Facility (20 sources) Morphine; Translations: [morphine] Drug Allergy Unknown [facility] Repository (1 source) Morphine Drug Allergy 06-05-2023 [facility] Repository Medications Current Medications Medication [...] Once a day Apr, Active Ascorbic Acid (10 sources) Vitamin C Start: 04-14-2019 Vitamin C [...] (20 sources) HMG-CoA Reductase Inhibitor Start: 04-14-20 19 take 80 mg by mouth once daily [...] Oral, Daily, Refills(s) 0, Depression Start Date: 8/23/21 Status: Ordered Fish Oils (1 source) Start: [...] 04/14/19 Status: Ordered take 1 tablet by mouth once erika y hydroCHLOROthiazide (HYDRODIURIL, ESIDRIX) 25 mg tablet Take 25 mg by mouth once daily. 0 Active take 1 tablet by mansoor th every other day hydroCHLOROthiazide 25 MG 1 tablet Orall y qod for 30 days Active Comment on above: Take 25 mg [...] 04/14/19 Status: Ordered take 1 tablet by mouth once erika y pantoprazole DR (PROTONIX) 40 mg tablet Take 40 mg by mouth once daily. 0 Active Comment on above: Take 40 mg by mouth once daily. Super B Complex (1 source) Start: 04-14-2019 Super B Complex Oral, Daily, Refill(s) 0, Prophylaxis Start Date: 04/14/19 Status: Ordered Vitamin D3 (1 source) Start: 04-14-2019 Vitamin D3 Oral, Daily, Refills(s) 0, Prophylaxis Start Date: 04/14/19 Status: Ordered Zinc (10 sources) Start: 04-14-2019 Zinc Oral, Daily, Refills(s) 0, Prophylaxis Start Date: 04/14/19 Status: Ordered ZINC ORAL Take b y mouth once daily. 0 Active Comment on above: Take by mouth once d aily. Completed/Discontinued Medications Medication Drug Class(es) Dates Sig (Normalized) Sig (Original) aspirin 81 mg oral tablet (20 sources) Platelet Aggregation Inhibitor, Nonsteroidal Anti-inflammatory Drug aspirin 81 mg cap Take by mouth once daily. 0 Active take 1 tablet by mansoor th every twenty-four hours Aspirin 81 MG 1 tablet Orally Once a day Active Comment on above: Take by mouth once d aily. carvedilol 12.5 mg oral tablet (20 sources) [...] h once daily. CHOLECALCIFEROL, VITAMIN D3, ORAL (9 sources) CHOLECALCIFEROL, VITAMIN D3, ORAL Take by mouth once daily. 0 Active Comment on above: Take by mouth once d aily. CPAP (9 sources) CPAP daily at [facility]. 0 Active Comment on above: daily at bedtime. docosahexaenoic acid/epa (FISH OIL ORAL) (9 sources) docosahexaenoic acid/epa (FISH OIL ORAL) Take by mouth once daily. 0 Active Comment on above: Take by mouth once d aily. Magnesium (9 sources) MAGNESIUM ORAL T hero by mouth once daily. 0 Active Comment on above: Take by mouth once d aily. MULTI-VITAMIN ORAL (9 sources) MULTI-VITAMIN OR AL Take by mouth once daily. 0 Active Comment on above: Take by mouth once d aily. sertraline 100 mg oral tablet (16 sources) Serotonin Reuptake Inhibitor Start: 022 take [...] on above: TAKE 1 TABLET BY MANSOOR TH EVERYDAY AT BEDTIME tamsulosin hydrochloride 0.4 mg oral capsule (6 sources) alpha-Adrenergic Ciera Start: End: 2 take 1 capsule by mouth once daily tamsulosin (FLOMAX) 0.4 mg Take 1 capsule by mouth once daily. 30 capsule 0 10/01/2021 Active Comment on above: Take 1 capsule by mo [facility] once daily. 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] 09-13-2021 Episodic [...] Chronic Other nutritional; endocrine; and metabolic disorders (9 sources) Obese class II; Translations: [Obesity, unspecified] Onset: 09-25-2021 09-30-2021 Chronic Other nutritional; endocrine; and metabolic disorders (20 sources) Morbid obesity; Translations: [Morbid (severe) obesity due to excess calories] Onset: 10-15-2023 03-13-2021 Chronic Other nutritional; endocrine; and metabolic [...] and visceral atherosclerosis (19 sources) Atherosclerosis of [place] arteries of extremities with rest pain, right leg; Translations: [Peripheral vascular disease] Onset: 05-19-2022 Chronic Residual codes; unclassified (10 sources) Sleep apnea; Translations: [Sleep apnea, unspecified] [...] without hemorrhage] Other aftercare (3 sources) Other halfway (current) drug therapy; Translations: [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] Onset: 09-17-2022 Episodic Other and unspecified benign neoplasm (12 sources) Polyp of colon; Translations: [Polyp of colon] Onset: 06-07-2021 06-07-2021 Episodic Unclassified (1 source) LOW BACK PAIN, UNSPECIFIED; Translations: [LOW BACK PAIN, UNSPECIFIED] Onset: 04-24-2022 Results Test Name Value Interpretation Reference Range Facility [facility] 10-27-2023 [facility] Telephone ([facility]) LIZZY YEE ([id number]) 1945 M Date Time Provider Department 10/27/23 JAY GONZALEZ [facility] During your visit today, we recorded the following information about you: Wendi De La Paz 10/27/2023 9:55 AM Signed Patient contacted the office of Dr. Gonzalez to advise that has MRI scheduled today at 12:45 and asked is they should be concerned with his mesh and being able to complete test today. Also inquiring if the office received mailed disc with imaging as well. Patient and or can be reached at [phone]. Thank you. Efrain Loza RN 10/28/2023 8:30 AM Signed Returned call and spoke with patient. She reports the patient had the MRI; there were concerned the mesh may be an issue. Explained the mesh would not effect the MRI. She states her understanding and is appreciative of the call. Allergies As of Date: 10/27/2023 (No Known Allergies) Date Reviewed: 10/15/2023 Reviewed by: Destiny Zapata OCCA - Fully Assessed Prescriptions as of 10/28/2023 - carvedilol (COREG) 12.5 mg tablet 1 [...] once daily. Problem List As Of Date 10/27/2023 Noted Resolved Polyp of colon [K63.5] 06/07/2021 ASHD (arteriosclerotic heart disease) [I25.10] Sleep apnea [G47.30] HTN (hypertension) [I10] HLD (hyperlipidemia) [E78.5] Type 2 diabetes mellitus, without long-term cur* Antiplatelet or antithrombotic long-term use [Z* Obesity (BMI 30-39.9) [E66.9] Polyposis coli [D13.91] 09/24/2021 09/30/2021 Obesity, Class II, BMI 35-39.9 [E66.9] 09/25/2021 Morbid obesity (HCC) [E66.01] 10/15/2023 Encounter Status:Closed by EFRAIN ZAMARRIPA on 10/28/23 [facility] CNOVon 10-15-2023 [facility] Office Visit ([facility] ) LIZZY YEE ([id number]) 1945 M Date Time Provider Department 10/15/23 1:00 PM JAY GONZALEZ [facility] During your visit today, we recorded the following information about you: Temperature Pulse Blood pressure 97.3 degrees 53/minute 127/65 Jay Gonzalez MD 10/15/2023 1:41 PM Signed [facility] Abdominal [facility] - Follow Up Visit Assessment/Plan: Lizzy Yee is a 77 year old male with a history of HTN, HLD, CAD, BPM, Anxiety, Obesity (BMI 38), BHUPENDRA, and colonic polyposis syndrome s/p subtotal colectomy with concomitant abdominal wall reconstruction with Dr. Medina on 09/24/21. He was seen for a one year follow up 10/16/22 and was feeling well. There was concern he may have had a subxiphoid recurrence based on his CT scan (10/11/22) but neither the patient nor myself felt a bulge on exam. When last seen, I believed this represented a bridged repair and that despite our primary closure with figure of eights, the rectus muscles just beneath the xiphoid pulled about do to the significant tension in the area, but that the underlying mesh and repair remain intact with a bridged repair. He is now two years post op and doing well. 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 We will obtain a CT to check on this and if stable, I won't plan for any more follow up imaging unless there is clinical concern. He has gained weight and we discussed the need to work on this. - CT abd/pel - 1 year follow up Subjective: Reports that he has gained too much weight. He has been trying to work on this with his kaley a little weight loss over the last few mionths. His activity has been limited by his knees and back but he is motivated to work on this. Typically having 3 bowel movements a day, these are generally loose. He takes fiber but does not take any bowel stopper. He reports that he was noted to have some elevated liver enzymes and was going to have imaging of his gallbladder and liver. He denies any right upper quadrant abdominal pain. I doubt that this is symptomatic cholelithiasis. If he were to need a formal surgical evaluation for his gallbladder, I am happy to take care of him. Objective: AAOx3, NAD Non-labored respirations on RA Abdomen soft, obese, non-distended, and non-tender. 3 cm subxiphoid fascial defect. No bulge through this with valsalva and no pain. Jay Gonzalez MD 10/15/23, 1:38 PM General Surgery [facility] Medical Decision Making: Problems: Low: Stable chronic illness Risk: Low: Low risk from testing/treatment Medical Decision Making Level: 3 - Low Destiny Zapata, DAISY 10/15/2023 1:04 PM Signed What is the reason for your visit today? 1 year follow up, incisional hernia Who is your referring physician? Are you having poor oral intake? NO Have you had unintentional weight loss of 15 lbs/7 Kg in the last 3-6 months? NO Bowels: diarrhea or soft Wound: Temperature: No Drains: No Allergies As of Date: 10/15/2023 (No Known Allergies) Date Reviewed: 10/15/2023 Reviewed by: Destiny Zapata OCCA - Fully Assessed Reason for Visit: Follow Up [171] Cmt: 1 year Primary Visit Diagnosis:Status post repair of ventral hernia [Z98.890, Z87.19] Other Visit Diagnosis:Morbid obesity (HCC) [E66.01] Prescriptions as of 10/15/2023 - carvedilol (COREG) 12.5 mg tablet 1 [...] once daily. Problem List As Of Date 10/15/2023 Noted Resolved Polyp of colon [K63.5] 06/07/2021 ASHD (arteriosclerotic heart disease) [I25.10] Sleep apnea [G47.30] HTN (hypertension) [I10] HLD (hyperlipidemi (more content not included)... Normal [facility] Office Visiton 04-22-2023 Follow-up visit [id number] Vu Yee 1945 M Date Provider Department Center 04/22/2023 271-PEDRO RICHARDSON [facility] Family History Problem Relation Age of Onset Coronary artery disease Mother Coronary artery disease Brother Family Status - Relation Status Age at Mother Brother Level of Service:61300 DE OFFICE/OUTPATIENT ESTABLISHED LOW MDM 20-29 MIN Normal [facility] Outside Colonoscopyon 2022 Outside Colonoscopy [id number] 0CD:127 Normal [facility] Reminderson 12-18-2022 Reminders - From: Amy Menon LPN To: GSN - Clinical; Sent: 12/18/2022 12:06:16 EDT Show up: 11/16/2025 07:00:00 EDT Subject: colonoscopy recall Due Date/Time: 12/17/2025 07:00:00 EDT Reminder/Recall Patient due for surveillance colonoscopy 12/17/2025. Normal [facility] POINT OF CARE GLUCOSEon 11-19 Glucose [Mass/Vol] 176 mg/dL Critically high 74-106 [facility] Comment on above: Performed By: #### P OCGLUC #### [facility] [address] [address] [address] Rojelio Kingsley POINT OF CARE GLUCOSEon 11-19 Glucose [Mass/Vol] 157 mg/dL Critically high 74-106 [facility] Comment on above: Performed By: #### P OCGLUC #### [facility] [address] [address] [address] Rojelio Kingsley Consent for Procedure/Surger yon 12-03-2022 Consent for Procedure/Surgery [id number] 0CD:127 Normal [facility] Physician Referralon 023 Physician Referral [id number] 0CD:127 Normal [facility] General Surgery Office/Clini c Noteon 12-02-2022 [...] anastomosis and ventral hernia repair 09/2021 at [facility], they recommend yearly surveillance sigmoidoscopies; [...] 1 tab(s), (more content not included)... Normal [facility] Comment on above: Result Comment: Elec tronically Signed By: PELON VANESSA, Nya Avila.marion\Date and Time Signed: 12/02/22 11:37 EDT POINT OF CARE GLUCOSEon 04-2 Glucose [Mass/Vol] 121 mg/dL Critically high 74-106 [facility] Comment on above: Performed By: #### P OCGLUC #### [facility] [address] [address] [address] [facility] H[facility] ID: [id number] Author: Glenda Romo RT(R) Service: Radiology Author [...] Romo RT(R) October 11, 2022 10:[address] [facility] [address] ABD/PEL WO IVCONon 2022 CT [...] site. Lower thorax: Lower lungs are clear. Trolley Car Overhauler (topogram) images: Unremarkable. IMPRESSION: Midline fat-containing upper abdominal hernia. Senior Web Developer: DANIEL Transcribe Date/Time: Oct 13 2022 7:57A Dictated by : YANICK RIVAS MD This examination was interpreted and the report reviewed and electronically signed by: YANICK RIVAS MD on Oct 13 2022 8:06AM EST [id number] Normal [facility] Consent for Procedure/Surger yon 09-17-2022 Consent for Procedure/Surgery [id number] 0CD:127 Normal [facility] RAD - Ultrasound Reporton RAD - Ultrasound Report [id number] 0CD:127 Normal [facility] Ambulatory Visit Summaryon 0 09-16-2022 Ambulatory [...] no longer receiving treatment for. Hyperlipidemia Normal [facility] Ambulatory Visit Summary LIZZY YEE :1945 [...] no longer receiving treatment for. Hyperlipidemia Normal [facility] General Surgery Office/Clini c Noteon 09-16-2022 General Surgery Office/Clinic Note Chief Complaint discuss need for colonoscopy vs sigmoidoscopy HPI Staff Presents to discuss need for follow up sigmoidoscopy. He is s/p subtotal colectomy for polyposis of the colon. Last colonoscopy completed 06/07/21. Dr. Medina recommended yearly sigmoidoscopy. He is currently experiencing [...] anastomosis and ventral hernia repair 09/2021 at [facility]; requires yearly flexible sigmoidoscopy for [...] Oral, Nathalie (more content not included)... Normal [facility] Comment on above: Result Comment: Elec tronically Signed By: PELON VANESSA, Nya Nicholson\Date and Time Signed: 09/16/22 11:17 EST Alanine Aminotransferaseon 0 - ALT [Catalytic activity/Vol] 30 U/L Normal 16-63 [employer] Other Comment on above: Performed By: #### B MP, ALT, LIPID #### [facility] [address] [address] [address] Rojelio Kingsley Basic Metabolic Panelon 08-21 Calcium [Mass/Vol] 9.3958421 mg/dL 8.5-10 .1 mg/dL [employer] Other CO2 [Moles/Vol] 25.41406547 mmol/L 21.0-3 2.0 mmol/L [employer] Other Creatinine [Mass/Vol] 1.36373043 mg/dL Critically high 0.70-1.30 mg/dL [employer] Other Potassium [Moles/Vol] 4.89960133 mmol/L 3 .5-5.1 mmol/L [employer] Other Urea nitrogen [Mass/Vol] 16.9770067 mg/dL 7.0-18.0 mg/dL [employer] Other Basic Metabolic Panel see note Nor [employer] Other Basic Metabolic Panel 141 mmol/L 136-14 5 mmol/L [employer] Other Basic Metabolic Panel 134 mg/dL Critically high 74-106 mg /dL [employer] Other Basic Metabolic Panel 51 mL/min/1.73m2 Critically low >=60 mL/min/1.73m 2 [employer] Other Basic Metabolic Panel >60 mL/min/1.73m2 > =60 mL/min/1.73m 2 [employer] Other Anion gap [Moles/Vol] 15.2 mmol/L [facility] [employer] Other Comment on above: Performed By: #### B MP, ALT, LIPID #### [facility] [address] [place] [address] Dr. Rojelio Kingsley Chloride [Moles/Vol] 105 mmol/L Normal 98-107 [facility] [employer] Other Comment on above: Performed By: #### B MP, ALT, LIPID #### [facility] [address] [place] [address] Dr. Rojelio Kingsley Urea nitrogen/Creatinine [Mass ratio] 11.8 mg/mg Normal [facility] [employer] Other Comment on above: Performed By: #### B MP, ALT, LIPID #### [facility] [address] [place] [address] Dr. Rojelio Kingsley CBC AUTO DIFFon 09-12-2022 BASO # 0.0 103/ul Normal 0.0-0.1 [facility] Comment on above: Performed By: #### C BC #### [facility] [address] [place] [address] Dr. Rojelio Kingsley Basophils/100 WBC (Bld) 0.4 % Normal 0.2-2.0 [facility] Comment on above: Performed By: #### C BC #### [facility] [address] [place] [address] Dr. Rojelio Kingsley EO # 0.3 103/ul Normal 0.0-0.7 [facility] Comment on above: Performed By: #### C BC #### [facility] [address] [place] [address] Dr. Rojelio Kingsley Eosinophils/100 WBC (Bld) 3.6 % Normal 0.9-7.0 [facility] Comment on above: Performed By: #### C BC #### [facility] [address] [place] [address] Dr. Rojelio Kingsley Erythrocyte distribution width (RBC) [Ratio] 14.1 % Normal 11.0-15.0 [facility] Comment on above: Performed By: #### C BC #### [facility] [address] [place] [address] Dr. Rojelio Kingsley Hematocrit (Bld) [Volume fraction] 40.1 % Critically low 42.0-54.0 [facility] Comment on above: Performed By: #### C BC #### [facility] [address] [place] [address] Dr. Rojelio Kingsley Hemoglobin (Bld) [Mass/Vol] 13.4 g/dL Critically low 14.0-18.0 [facility] Comment on above: Performed By: #### C BC #### [facility] [address] [place] [address] Dr. Rojelio Kingsley IG # 0.02 10e3/ul Normal 0.00-0.03 [facility] Comment on above: Performed By: #### C BC #### [facility] [address] [place] [address] Dr. Rojelio Kingsley IG % 0.2 % Normal 0.0-0.5 [facility] Comment on above: Performed By: #### C BC #### [facility] [address] [place] [address] Dr. Rojelio Kingsley LYMPH # 1.8 103/ul Normal 1.2-3.8 [facility] Comment on above: Performed By: #### C BC #### [facility] [address] [place] [address] Dr. Rojelio Kingsley Lymphocytes/100 WBC (Bld) 21.9 % Normal 20.5-60.0 [facility] Comment on above: Performed By: #### C BC #### [facility] [address] [place] [address] Dr. Rojelio Kingsley MANUAL DIFF REQ NO Normal [facility] Comment on above: Performed By: #### C BC #### [facility] [address] [place] [address] Dr. Rojelio Kingsley MCH (RBC) [Entitic mass] 30.6 pg Normal 25.9-34.0 [facility] Comment on above: Performed By: #### C BC #### [facility] [address] [address] [address] Rojelio Kingsley MCHC (RBC) [Mass/Vol] 33.4 g/dL Normal 29.9-35.2 [facility] Comment on above: Performed By: #### C BC #### [facility] [address] [address] [address] Rojelio Kingsley MCV (RBC) [Entitic vol] 91.6 fL Normal 80.0-94.0 [facility] Comment on above: Performed By: #### C BC #### [facility] [address] [address] [address] Rojelio Kingsley MONO # 0.8 103/ul Normal 0.3-0.8 [facility] Comment on above: Performed By: #### C BC #### [facility] [address] [place] [address] Dr. Rojelio Kingsley Monocytes/100 WBC (Bld) 9.3 % Normal 1.7-12.0 [facility] Comment on above: Performed By: #### C BC #### [facility] [address] [place] [address] Dr. Rojelio Kingsley NEUT # 5.4 103/ul Normal 1.4-6.5 [facility] Comment on above: Performed By: #### C BC #### [facility] [address] [place] [address] Dr. Rojelio Kingsley Neutrophils/100 WBC (Bld) 64.6 % Normal 43.0-75.0 [facility] Comment on above: Performed By: #### C BC #### [facility] [address] [place] [address] Dr. Rojelio Kingsley Platelet mean volume (Bld) [Entitic vol] 10.3 fL Normal 9.5-13.5 [facility] Comment on above: Performed By: #### C BC #### [facility] Laboratory [address] [address] [address] Rojelio Kingsley PLT 214 103/ul Normal 150-450 [facility] Comment on above: Performed By: #### C BC #### [facility] [address] [address] [address] Rojelio Kingsley RBC 4.38 106/ul Critically low 4.70-6.10 [facility] [place] Comment on above: Performed By: #### C BC #### [facility] [address] [address] [address] Rojelio Kingsley WBC 8.4 103/ul Normal 4.0-11.0 [facility] [place] Comment on above: Performed By: #### C BC #### [facility] [address] [place] [address] Dr. Rojelio Kingsley GLYCOHEMOGLOBIN A1Con 2022 ADA RECOMMENDATION SEE BELOW Normal [facility] Comment on above: Result Comment: ADA RECOMMENDED LIMIT 4.0 - 6.0 ADA THERAPEUTIC TARGET < 7.0 ACTION SUGGESTED > 7.0 Performed By: #### P OCGLUC #### [facility] [address] [place] [address] Dr. Rojelio Kingsley Glucose [Mass/Vol] 169 mg/dL Normal [facility] Comment on above: Performed By: #### P OCGLUC #### [facility] [address] [place] [address] Dr. Rojelio Kingsley HbA1c (Bld) [Mass fraction] 7.5 % Critically high 4.5-6.2 [facility] Comment on above: Performed By: #### P OCGLUC #### [facility] [address] [place] [address] Dr. Rojelio Kingsley LIPID PROFILEon 09-12-2022 CHOL-HDL RATIO NORM SEE BELOW Normal [facility] Comment on above: Result Comment: 3.3 - 4.4 LOW RISK 4.4 - 7.1 AVERAGE RISK 7.1 - 11.0 MODERATE RISK >11.0 HIGH RISK Performed By: #### B MP, ALT, LIPID #### [facility] [address] [place] [address] Dr. Rojelio Kingsley Cholesterol in LDL [Mass/Vol] 31.2 mg/dL Normal [facility] Comment on above: Performed By: #### B MP, ALT, LIPID #### [facility] [address] [place], [place] [id number] Dr. Rojelio Kingsley HDL NORMAL > or = 60 mg/dl - LO W CARDIOVASCULAR RISK <40 mg/dl - HIGH CARDIOVASCULAR RISK Normal [facility] Comment on above: Performed By: #### B MP, ALT, LIPID #### [facility] [address], [place] [address] Dr. Rojelio Kingsley LDL CALC NORMAL SEE BELOW Normal [facility] Comment on above: Result Comment: <100 mg/dl OPTIMAL 100 - 129 mg/dl NEAR OR ABOVE OPTIMAL 130 - 159 mg/dl BORDERLINE HIGH 160 - 189 mg/dl HIGH >190 mg/dl VERY HIGH Performed By: #### B MP, ALT, LIPID #### [facility] [address] [address] [address] Rojelio Kingsley VLDL CALC 40.8 mg/dL Normal [facility] Comment on above: Performed By: #### B MP, ALT, LIPID #### [facility] [address] [address] [address] Rojelio Kingsley Lipid Panelon 09-12-2022 Lipid Panel > or = 60 mg/dl - LO W CARDIOVASCULAR RISK <40 mg/dl - HIGH CARDIOVASCULAR RISK [employer] Other Lipid Panel SEE BELOW [facility] Other Lipid Panel 31.2 mg/dL [facility] Other Lipid Panel 40.8 mg/dL [employer] Other Cholesterol [Mass/Vol] 115 mg/dL Normal <=200 [employer] Other Comment on above: Performed By: #### B MP, ALT, LIPID #### [facility] [address], [place] [address] Dr. Rojelio Kingsley Cholesterol in HDL [Mass/Vol] 43 mg/dL Normal 40-60 [facility] Other Comment on above: Performed By: #### B MP, ALT, LIPID #### [facility] [address] [address] [address] Rojelio Kingsley Cholesterol.total/Cho lesterol in HDL [Mass ratio] 2.7 {ratio} Normal [employer] Other Comment on above: Performed By: #### B MP, ALT, LIPID #### [facility] [address] [place] [address] Dr. Rojelio Kingsley Triglyceride [Mass/Vol] 204 mg/dL Critically high <=150 [employer] Other Comment on above: Performed By: #### B MP, ALT, LIPID #### [facility] [address] [address] [address] Rojelio Kingsley MICROALBUMIN, RAND URon 02- mALB 2.1 mg/L Normal <=30.0 [facility] Comment on above: Performed By: #### M ALBR #### [facility] [address] [place] [address] Dr. Rojelio Kingsley PROF CHEM 8 (BAS METB)on Calcium [Mass/Vol] 9.6 mg/dL Normal 8.5-10.1 [facility] Comment on above: Performed By: #### B MP, ALT, LIPID #### [facility] [address] [place] [address] Dr. Rojelio Kingsley CO2 [Moles/Vol] 25.1 mmol/L Normal 21.0-32.0 [facility] Comment on above: Performed By: #### B MP, ALT, LIPID #### [facility] [address] [place] [address] Dr. Rojelio Kingsley Creatinine [Mass/Vol] 1.36 mg/dL Critically high 0.70-1.30 [facility] Comment on above: Performed By: #### B MP, ALT, LIPID #### [facility] [address] [address] [address] Rojelio Kingsley EGFR-AF INDONESIAN >60 Normal >=60 [facility] Comment on above: Performed By: #### B MP, ALT, LIPID #### [facility] [address] [place] [address] Dr. Rojelio Kingsley EGFR-NON AF INDONESIAN 51 mL/min/1.73m2 Critically low >=60 [facility] Comment on above: Performed By: #### B MP, ALT, LIPID #### [facility] [address] [address] [address] Rojelio Kingsley Glucose [Mass/Vol] 134 mg/dL Critically high 74-106 [facility] Comment on above: Performed By: #### B MP, ALT, LIPID #### [facility] [address] [address] [address] Rojelio Kingsley Potassium [Moles/Vol] 4.3 mmol/L Normal 3.5-5.1 [facility] Comment on above: Performed By: #### B MP, ALT, LIPID #### [facility] [address] [address] [address] Rojelio Kingsley Sodium [Moles/Vol] 141 mmol/L Normal 136-145 [facility] Comment on above: Performed By: #### B MP, ALT, LIPID #### [facility] [address] [address] [address] Rojelio Kingsley Urea nitrogen [Mass/Vol] 16.0 mg/dL Normal 7.0-18.0 [facility] Comment on above: Performed By: #### B MP, ALT, LIPID #### [facility] [address] [address] [address] Rojelio Kingsley US CAROTID ART BILon [...] GABY PADILLA Date: 2022-09-12 15:22 Normal [facility] US CAROTID ART ZHENG [employer] Other Orders Onlyon 07-24-2022 Orders Only [id number] Vu Yee 1945 M Date Provider Department Center 07/24/2022 ZOFIA MARTINO [facility] Family History Problem Relation Age of Onset Coronary artery disease Mother Coronary artery disease Brother Family Status - Relation Status Age at Mother Brother Normal [facility] POINT OF CARE GLUCOSEon 06-19 Glucose [Mass/Vol] 106 mg/dL Normal 74-106 [facility] Comment on above: Performed By: #### P OCGLUC #### [facility] [address] [address] [address] Rojelio Kingsley Covid-19 PCR ([facility])on SARS-CoV-2 (COVID-19) RNA MITCHELL+probe Ql (Unsp spec) Not detected Normal NOT DETECTED [facility] Comment on above: Result Comment: This test is not yet approved or cleared by the [place] FDA. When there are no FDA-approved or cleared tests available, and other criteria are met, FDA can make tests available under an emergency access mechanism called an Emergency Use Authorization (EUA). The EUA for this test is supported by the Act [place] Tutor of Health and Human Service's (HHS's) declaration [...] SARS-CoV-2. Performed By: #### P OCGLUC #### [facility] [address], [place] [address] Dr. Rojelio Kingsley 29on 05-19-2022 29 Addended by: MARINO MOE on: 05/19/2022 03:14 PM Modules accepted: Level of Service Normal [facility] Follow-Upon 05-19-2022 Follow-Up [id number] Vu Yee 1945 M Date Provider Department Center 05/19/2022 MARINO GRAVES SONIA [facility] Family History Problem Relation Age of Onset Coronary artery disease Mother Coronary artery disease Brother Family Status - Relation Status Age at Mother Brother Level of Service:68198 DE OFFICE/OUTPATIENT ESTABLISHED LOW MDM 20-29 MIN Reason for Visit and Comments: Coronary Artery Disease [187] Hypertension [809915] Peripheral Vascular Disease [458] Normal [facility] POINT OF CARE GLUCOSEon 04-20 Glucose [Mass/Vol] 129 mg/dL Critically high 74-106 [facility] Comment on above: Performed By: #### P OCGLUC #### [facility] [address] [address] [address] Rojelio Kingsley POINT OF CARE GLUCOSEon 03-21 Glucose [Mass/Vol] 116 mg/dL Critically high 74-106 [facility] Comment on above: Performed By: #### P OCGLUC #### [facility] [address] [address] [address] Rojelio Kingsley XR LSPINE 2_3 VIEWSon [...] GABY PADILLA Date: 2022-03-05 13:06 Normal [facility] CBC AUTO DIFFon 02-22-2022 BASO # 0.0 103/ul Normal 0.0-0.1 [facility] Comment on above: Performed By: #### P OCGLUC #### [facility] [address] [address] [address] Rojelio Kingsley Basophils/100 WBC (Bld) 0.4 % Normal 0.2-2.0 [facility] Comment on above: Performed By: #### P OCGLUC #### [facility] [address] [address] [address] Rojelio Kingsley EO # 0.3 103/ul Normal 0.0-0.7 [facility] Comment on above: Performed By: #### P OCGLUC #### [facility] [address] [place] [address] Dr. Rojelio Kingsley Eosinophils/100 WBC (Bld) 3.0 % Normal 0.9-7.0 [facility] Comment on above: Performed By: #### P OCGLUC #### [facility] [address] [address] [address] Rojelio Kingsley Erythrocyte distribution width (RBC) [Ratio] 14.4 % Normal 11.0-15.0 [facility] Comment on above: Performed By: #### P OCGLUC #### [facility] [address] [place] [address] Dr. Rojelio Kingsley Hematocrit (Bld) [Volume fraction] 37.1 % Critically low 42.0-54.0 [facility] Comment on above: Performed By: #### P OCGLUC #### [facility] [address] [address] [address] Rojelio Kingsley Hemoglobin (Bld) [Mass/Vol] 12.2 g/dL Critically low 14.0-18.0 [facility] Comment on above: Performed By: #### P OCGLUC #### [facility] [address] [place] [address] Dr. Rojelio Kingsley IG # 0.03 10e3/ul Normal 0.00-0.03 [facility] Comment on above: Performed By: #### P OCGLUC #### [facility] [address] [address] [address] Rojelio Kingsley IG % 0.4 % Normal 0.0-0.5 [facility] Comment on above: Performed By: #### P OCGLUC #### [facility] [address] [address] [address] Rojelio Kingsley LYMPH # 1.8 103/ul Normal 1.2-3.8 [facility] Comment on above: Performed By: #### P OCGLUC #### [facility] [address] [address] [address] Rojelio Kingsley Lymphocytes/100 WBC (Bld) 21.6 % Normal 20.5-60.0 [facility] Comment on above: Performed By: #### P OCGLUC #### [facility] [address] [place] [address] Dr. Rojelio Kingsley MANUAL DIFF REQ NO Normal [facility] Comment on above: Performed By: #### P OCGLUC #### [facility] [address] [place] [address] Dr. Rojelio Kingsley MCH (RBC) [Entitic mass] 30.0 pg Normal 25.9-34.0 [facility] Comment on above: Performed By: #### P OCGLUC #### [facility] [address] [place] [address] Dr. Rojelio Kingsley MCHC (RBC) [Mass/Vol] 32.9 g/dL Normal 29.9-35.2 [facility] Comment on above: Performed By: #### P OCGLUC #### [facility] [address] [place] [address] Dr. Rojelio Kingsley MCV (RBC) [Entitic vol] 91.4 fL Normal 80.0-94.0 [facility] Comment on above: Performed By: #### P OCGLUC #### [facility] [address] [place] [address] Dr. Rojelio Kingsley MONO # 0.7 103/ul Normal 0.3-0.8 [facility] Comment on above: Performed By: #### P OCGLUC #### [facility] [address] [address] [address] Rojelio Kingsley Monocytes/100 WBC (Bld) 8.4 % Normal 1.7-12.0 [facility] Comment on above: Performed By: #### P OCGLUC #### [facility] [address] [address] [address] Rojelio Kingsley NEUT # 5.5 103/ul Normal 1.4-6.5 [facility] Comment on above: Performed By: #### P OCGLUC #### [facility] [address] [address] [address] Rojelio Kingsley Neutrophils/100 WBC (Bld) 66.2 % Normal 43.0-75.0 [facility] Comment on above: Performed By: #### P OCGLUC #### [facility] [address] [place] [address] Dr. Rojelio Kingsley Platelet mean volume (Bld) [Entitic vol] 10.3 fL Normal 9.5-13.5 [facility] Comment on above: Performed By: #### P OCGLUC #### [facility] [address] [address] [address] Rojelio Kingsley PLT 202 103/ul Normal 150-450 [facility] Comment on above: Performed By: #### P OCGLUC #### [facility] [address] [address] [address] Rojelio Kingsley RBC 4.06 106/ul Critically low 4.70-6.10 [facility] Comment on above: Performed By: #### P OCGLUC #### [facility] [address] [place] [address] Dr. Rojelio Kingsley WBC 8.3 103/ul Normal 4.0-11.0 [facility] Comment on above: Performed By: #### P OCGLUC #### [facility] [address] [address] [address] Rojelio Kingsley GLYCOHEMOGLOBIN A1Con 2021 ADA RECOMMENDATION SEE BELOW Normal [facility] Comment on above: Result Comment: ADA RECOMMENDED LIMIT 4.0 - 6.0 ADA THERAPEUTIC TARGET < 7.0 ACTION SUGGESTED > 7.0 Performed By: #### A 1C #### [facility] [address] [place] [address] Dr. Rojelio Kingsley Glucose [Mass/Vol] 151 mg/dL Normal [facility] Comment on above: Performed By: #### A 1C #### [facility] [address], [place] [address] Dr. Rojelio Kingsley HbA1c (Bld) [Mass fraction] 6.9 % Critically high 4.5-6.2 [facility] Comment on above: Performed By: #### A 1C #### [facility] [address] [address] [address] Rojelio Kingsley Consultation Noteon 02-19-20 22 Consultation Note [id number] 0CD:[id number] Normal [facility] KNEE RIGHT 3 [facility] 1 KNEE RIGHT 3 [facility] Department of Radiology [address] [place] [id number] ======== Patient Name: LIZZY YEE : 1945 Sex: M Age: Race: White Pt. Location: Patient Status: Ordered Date: 01/09/2021 1:10:00 PM Completed Date: 01/09/2021 01:11 PM Requesting Provider: TY AVALOS Attending Provider: Report Copy To: Signs & Symptoms: Z96.659 Presence of unspecified artificial knee joint I10 History: Comments: Exam: KNEE RIGHT 3 [facility] ======== KNEE RIGHT 3 VWS HISTORY: Knee replacement, follow-up. COMPARISON: 12/26/2020. IMPRESSION: 1. Redemonstrated total knee prosthesis, no hardware complication or acute abnormality. No significant joint effusion. Mild soft tissue swelling noted. Electronically signed: Mitul Banks. Transcribed by: [email or web address], User Resident: Electronically Signed by: MITUL BANKS @ 01/09/2021 08:47 PM Normal [facility] POC GLUCOSE LABon 12-29-2020 Glucose [Mass/Vol] 194 mg/dL High 70-[address] [facility] Comment on above: Performed By: #### 8 [id number] #### [facility] [address] [place] [address], [place] Glucose [Mass/Vol] 125 mg/dL High 70-[address] [facility] Comment on above: Performed By: #### 8 [id number] #### [facility] [address] [place] [address], [place] POC GLUCOSE LABon 12-28-2020 Glucose [Mass/Vol] 197 mg/dL High 70-[address] [facility] Comment on above: Performed By: #### 8 [id number] #### [facility] [address] [place] [address], [place] Glucose [Mass/Vol] 177 mg/dL High 70-100 [facility] Comment on above: Performed By: #### 8 [id number] #### [facility] [address] [place] [address], [place] Glucose [Mass/Vol] 215 mg/dL High 70-[address] [facility] Comment on above: Performed By: #### 8 [id number] #### [facility] [address] [place] [address], [place] Glucose [Mass/Vol] 152 mg/dL High 70-[address] [facility] Comment on above: Performed By: #### 8 [id number] #### [facility] [address] [place] [address], [place] BASIC METABOLIC PANELon 06- Calcium [Mass/Vol] 8.2 mg/dL Low 8.6-10.3 [facility] Comment on above: Order Comment: No: D o not add to previous draw Performed By: #### 8 [id number] #### [facility] [address] [place] [address], [place] Chloride [Moles/Vol] 102 mmol/L Normal 98-107 [facility] Comment on above: Order Comment: No: D o not add to previous draw Performed By: #### 8 [id number] #### [facility] [address] [place] [address], [place] CO2 [Moles/Vol] 23 mmol/L Normal 21-31 [facility] Comment on above: Order Comment: No: D o not add to previous draw Performed By: #### 8 [id number] #### [facility] [address] [place] [address], [place] Creatinine [Mass/Vol] 0.97 mg/dL Normal 0.70-1.30 [facility] Comment on above: Order Comment: No: D o not add to previous draw Performed By: #### 8 [id number] #### [facility] [address] [place] [address], [place] GFR/1.73 sq M.predicted among blacks MDRD (S/P/Bld) [Vol rate/Area] mL/min/{1.73_m2} Normal >60 [facility] Comment on above: Order Comment: No: D o not add to previous draw Result Comment: Calc ulation may not be valid for patients over 70 years Performed By: #### 8 [id number] #### [facility] [address] [place] [address], [place] GFR/1.73 sq M.predicted among non-blacks MDRD (S/P/Bld) [Vol rate/Area] mL/min/{1.73_m2} Normal >60 [facility] Comment on above: Order Comment: No: D o not add to previous draw Result Comment: Calc ulation may not be valid for patients over 70 years Performed By: #### 8 [id number] #### [facility] [address] [place] [address], [place] Glucose [Mass/Vol] 191 mg/dL High 70-100 [facility] Comment on above: Order Comment: No: D o not add to previous draw Performed By: #### 8 [id number] #### [facility] [address] [place] [address], [place] Potassium [Moles/Vol] 3.8 mmol/L Normal 3.5-5.1 [facility] Comment on above: Order Comment: No: D o not add to previous draw Performed By: #### 8 [id number] #### [facility] [address] [place] [address], [place] Sodium [Moles/Vol] 134 mmol/L Low 136-145 [facility] Comment on above: Order Comment: No: D o not add to previous draw Performed By: #### 8 [id number] #### [facility] [address] [place] [address], [place] Urea nitrogen [Mass/Vol] 23 mg/dL Normal 7-25 [facility] Comment on above: Order Comment: No: D o not add to previous draw Performed By: #### 8 [id number] #### [facility] [address] [place] [address], [place] CBC COMPLETE BLOOD COUNTon 0 - Erythrocyte distribution width (RBC) [Ratio] 13.3 % Normal 11.5-15.0 [facility] Comment on above: Order Comment: No: D o not add to previous draw Performed By: #### 8 [id number] #### [facility] [address] [place] [address], [facility] Hematocrit (Bld) [Volume fraction] 35.4 % Low 39.0-50.0 [facility] Comment on above: Order Comment: No: D o not add to previous draw Performed By: #### 8 [id number] #### [facility] [address] [place] [address], [facility] Hemoglobin (Bld) [Mass/Vol] 11.7 g/dL Low 13.0-17.0 [facility] Comment on above: Order Comment: No: D o not add to previous draw Performed By: #### 8 [id number] #### [facility] [address] [address], [facility] MCH (RBC) [Entitic mass] 31.2 pg Normal 27.0-33.0 [facility] Comment on above: Order Comment: No: D o not add to previous draw Performed By: #### 8 [id number] #### [facility] [address] [place] [address], [facility] MCHC (RBC) [Mass/Vol] 33.1 g/dL Normal 32.0-35.0 [facility] Comment on above: Order Comment: No: D o not add to previous draw Performed By: #### 8 [id number] #### [facility] [address] [place] [address], [facility] MCV (RBC) [Entitic vol] 94.4 fL Normal 82.0-98.0 [facility] Comment on above: Order Comment: No: D o not add to previous draw Performed By: #### 8 [id number] #### [facility] [address] [id number], [facility] Nucleated RBC/100 WBC (Bld) [Ratio] 0 % Normal 0-0 [facility] Comment on above: Order Comment: No: D o not add to previous draw Performed By: #### 8 [id number] #### [facility] [address] PLAT CNT 177 10*3/uL Normal 150-400 [facility] Comment on above: Order Comment: No: D o not add to previous draw Performed By: #### 8 [id number] #### [facility] [address] RBC (Bld) [#/Vol] 3.75 10*6/uL Low 4.20-5.70 [facility] Comment on above: Order Comment: No: D o not add to previous draw Performed By: #### 8 [id number] #### [facility] [address] [facility] [place] [address], [facility] WBC (Bld) [#/Vol] 16.83 10*3/uL High 4.00-10.60 [facility] Comment on above: Order Comment: No: D o not add to previous draw Performed By: #### 8 [id number] #### [facility] [address] Operative Reporton Operative Report MR#: [id number] I [facility] Pt. Name: Lizzy Yee Room #: [id number] Discharge Date: Birthdate: 1945 OPERATIVE REPORT DATE [...] surgery. He has been cleared by his special events assistant for his surgery as well. The patient signed the consent form. Site was marked. We proceed with IV antibiotics in the form of 2 g of Ancef within an hour of the incision. PROCEDURE IN DETAIL: After written consent obtained, site was marked. The patient was taken to the [facility] OR and was seen by anesthesia. [...] futu (more content not included)... Normal [facility] POC GLUCOSE LABon 12-27-2020 Glucose [Mass/Vol] 200 mg/dL High 70-100 [facility] Comment on above: Performed By: #### [id number] #### [facility] [address] [place] [address], [facility] Glucose [Mass/Vol] 186 mg/dL High 70-100 [facility] Comment on above: Performed By: #### [id number] #### [facility] [address] [facility] [place] [address], [facility] Glucose [Mass/Vol] 250 mg/dL High 70-100 [facility] Comment on above: Performed By: #### [id number] #### [facility] [address] [place] [address], [place] Glucose [Mass/Vol] 177 mg/dL High 70-[address] [facility] Comment on above: Performed By: #### [id number] #### [facility] [address] [place] [address], [place] POC GLUCOSE LABon 12-26-2020 Glucose [Mass/Vol] 230 mg/dL High 70-[address] [facility] Comment on above: Performed By: #### [id number] #### [facility] [address] [place] [address], [place] Glucose [Mass/Vol] 278 mg/dL High 70-100 [facility] Comment on above: Performed By: #### [id number] #### [facility] [address] [facility] [place] [address], [place] Glucose [Mass/Vol] 174 mg/dL High 70-100 [facility] Comment on above: Performed By: #### [id number] #### [facility] [address] [place] [address], [place] Glucose [Mass/Vol] 146 mg/dL High 70-100 [facility] Comment on above: Performed By: #### [id number] #### [facility] [address] [facility] [place] [address], [place] PORTABLE KNEE RIGHT 2 [facility] 12-26-2020 PORTABLE KNEE RIGHT 2 [facility] Department of Radiology [address] [place] [id number] ======== Patient Name: LIZZY YEE : 1945 Sex: M Age: Race: White Pt. Location: [id number] Patient Status: I Ordered Date: 12/26/2020 7:05:00 [...] replacement. Electronically signed: José Thornton. Transcribed by: [email or web address], User Resident: JOSÉ THORNTON Electronically Signed by: JOSÉ THORNTON @ 12/26/2020 03:28 PM I personally read this/these film(s) with this resident Normal [facility] Comment on above: Order Comment: Hardw are Evaluation, In PACU; HIP RIGHT 1 OR 2 VWS WITH PE LVISon 10-05-2020 HIP RIGHT 1 OR 2 VWS WITH PELVIS [facility] Department of Radiology [address] [place] [address] ======== Patient Name: LIZZY YEE [...] narrowing. Electronically signed: Mitul Banks. Transcribed by: [email or web address], User Resident: Electronically Signed by: MITUL BANKS @ 10/05/2020 01:08 PM Normal [facility] Comment on above: Order Comment: Views (X-RAY, HIP): AP Pelvis, X-Table Lateral Hip , Weight Bearing?: Y KNEE LEFT 4VWSon 08-20-2020 KNEE LEFT 4VWS [facility] Department of Radiology [address] [place] [phone] ======== Patient Name: LIZZY YEE : 1945 Sex: M Age: Race: White Pt. Location: 84 Patient Status: O Ordered Date: 08/20/2020 8:10:00 AM Completed Date: 08/20/2020 08:14 AM Requesting Provider: CEDRICK WILD Attending Provider: CEDRICK WILD Report Copy To: Signs & Symptoms: M25.569 Pain in unspecified knee I10 History: [place] Comments: Views (X-RAY, KNEE): AP, Lateral, Tunnel, Shiro , Weight Bearing?: Y Exam: KNEE LEFT 4VWS ======== KNEE LEFT 4VWS 08/20/2020 8:14 AM CLINICAL INDICATIONS: M25.569 Pain in unspecified knee I10 TECHNOLOGIST COMMENTS: Patient states having bilateral knee pain. QUESTION FOR THE RADIOLOGIST: Views (X-RAY, KNEE): AP, Lateral, Tunnel, Shiro , Weight Bearing?: Y PROTOCOL: AP,Lateral,Tunnel and [...] reports Electronically signed: Ej Francisco. Transcribed by: [email or web address], User Resident: TAMERA MAREI Electronically Signed by: EJ FRANCISCO @ 08/20/2020 08:41 AM I personally read this/these film(s) with this resident Normal [facility] Comment on above: Order Comment: Views (X-RAY, KNEE): AP, Lateral, Tunnel, Shiro , Weight Bearing?: Y KNEE RIGHT 4 [facility] KNEE RIGHT 4 [facility] Department of Radiology [address] [place] [phone] ======== Patient Name: LIZZY YEE : 1945 Sex: M Age: Race: White Pt. Location: Patient Status: O Ordered Date: 08/20/2020 8:10:00 AM Completed Date: 08/20/2020 08:14 AM Requesting Provider: CEDRICK WILD Attending Provider: CEDRICK WILD Report Copy To: Signs & Symptoms: M25.569 Pain in unspecified knee I10 History: [place] Comments: Views (X-RAY, KNEE): AP, Lateral, Tunnel, Shiro , Weight Bearing?: Y Exam: KNEE RIGHT 4 [facility] ======== KNEE RIGHT 4 [facility] 08/20/2020 8:14 AM SIGNS AND SYMPTOMS: M25.569 Pain in unspecified knee I10 TECHNOLOGIST COMMENTS: Patient states having bilateral knee pain. QUESTION FOR THE RADIOLOGIST: Views (X-RAY, KNEE): AP, Lateral, Tunnel, Shiro , Weight Bearing?: Y PROTOCOL: AP,Lateral,Tunnel and [...] knee. Electronically signed: Ej Francisco. Transcribed by: [email or web address], User Resident: Electronically Signed by: EJ FRANCISCO @ 08/20/2020 08:30 AM Normal [facility] Comment on above: Order Comment: Views (X-RAY, KNEE): AP, Lateral, Tunnel, Shiro , Weight Bearing?: Y Vital Signs Date Time Vital Sign Value Performing Clinician Facility 06-05-2023 10:00-0500 Body height 165.1 cm [facility] [employer] [facility] Other [facility] Other 06-05-2023 10:00-0500 Body mass index (BMI) [Ratio] 39.87 kg/m2 [facility] [employer] Other [facility] Other 06-05-2023 10:00-0500 Body weight 108.68 kg [facility] Other [facility] Other 06-05-2023 10:00-0500 Diastolic blood pressure 71 mm[Hg] [facility] [employer] Other [facility] Other 06-05-2023 10:00-0500 Respiratory rate 20 /min [facility] Ball Other [facility] Other 06-05-2023 10:00-0500 Systolic blood pressure 118 mm[Hg] [facility]os Ball Other [facility] Other 05-06-2023 13:45-0400 Body height 165.1 cm [facility] [employer] Other [facility] Other 05-06-2023 13:45-0400 Body mass index (BMI) [Ratio] 39.97 kg/m2 [facility] [employer] Other [facility] Other 05-06-2023 13:45-0400 Body weight 108.95 kg Ju[facility]arlos Ball Other [facility] Other 05-06-2023 13:45-0400 Diastolic blood pressure 87 mm[Hg] [facility] Ball Other [facility] Other 05-06-2023 13:45-0400 Respiratory rate 16 /min [facility] Ball Other [facility] Other 05-06-2023 13:45-0400 Systolic blood pressure 158 mm[Hg] [facility]os Ball Other [facility] Other 03-10-2023 11:00-0400 Body height 165.1 cm [facility] Ball Other [facility] Other 03-10-2023 11:00-0400 Body mass index (BMI) [Ratio] 39.3 kg/m2 [facility] Other [facility] Other 03-10-2023 11:00-0400 Body weight 107.14 kg [facility] Ball Other [facility] Other 03-10-2023 11:00-0400 Diastolic blood pressure 67 mm[Hg] [facility]os Ball Other [facility] Other 03-10-2023 11:00-0400 Respiratory rate 16 /min [facility] Ball Other [facility] Other 03-10-2023 11:00-0400 Systolic blood pressure 120 mm[Hg] [facility] Ball Other [facility] Other 10-16-2022 13:12-0400 Body temperature 97.11 [degF] Jay Gonzalez MD Work Phone: [facility] 10-16-2022 13:12-0400 Diastolic blood pressure 66 mm[Hg] Jay Gonzalez MD Work Phone: [facility] 10-16-2022 13:12-0400 Heart rate 51 /min Jay Gonzalez MD Work Phone: [facility] 10-16-2022 13:12-0400 SaO2% (BldA) [Mass fraction] 96 % Jay Gonzalez MD Work Phone: [facility] 10-16-2022 13:12-0400 Systolic blood pressure 143 mm[Hg] Jay Gonzalez MD Work Phone: [facility] 09-08-2022 13:30-0500 Body height 165.1 cm [facility]os Ball Other [facility] Other 09-08-2022 13:30-0500 Body mass index (BMI) [Ratio] 39.33 kg/m2 [facility] Ball Other [facility] Other 09-08-2022 13:30-0500 Body weight 107.23 kg [facility]os Ball Other [facility] Other 09-08-2022 13:30-0500 Diastolic blood pressure 70 mm[Hg] [facility] Ball Other [facility] Other 09-08-2022 13:30-0500 Respiratory rate 20 /min [facility] Ball Other [facility] Other 09-08-2022 13:30-0500 Systolic blood pressure 112 mm[Hg] [facility] Ball Other [facility] Other 01-27-2022 13:20-0400 Body height 165.1 cm Jus eMdina MD Work Phone: [facility] 01-27-2022 13:20-0400 Body temperature 96.91 [degF] Jus Medina MD Work Phone: [facility] 01-27-2022 13:20-0400 Body weight 104.33 kg Jus Medina MD Work Phone: [facility] 01-27-2022 13:20-0400 Diastolic blood pressure 56 mm[Hg] Jus Medina MD Work Phone: [facility] 01-27-2022 13:20-0400 Heart rate 50 /min Jus Medina MD Work Phone: [facility] 01-27-2022 13:20-0400 SaO2% (BldA) [Mass fraction] 98 % Jus Medina MD Work Phone: [facility] 01-27-2022 13:20-0400 Systolic blood pressure 131 mm[Hg] Jus Medina MD Work Phone: [facility] 10-10-2021 10:46-0400 Body height 165.1 cm Jay Gonzalez MD Work Phone: [facility] 10-10-2021 10:46-0400 Body weight 102.51 kg Jay Gonzalez MD Work Phone: [facility] 10-10-2021 10:46-0400 Diastolic blood pressure 65 mm[Hg] Jay Gonzalez MD Work Phone: [facility] 10-10-2021 10:46-0400 Heart rate 76 /min Jay Gonzalez MD Work Phone: [facility] 10-10-2021 10:46-0400 Systolic blood pressure 137 mm[Hg] Jay Gonzalez MD Work Phone: [facility] 10-10-2021 10:44-0400 Body height 165.1 cm Jus Medina MD Work Phone: [facility] 10-10-2021 10:44-0400 Body weight 102.51 kg Jus Medina MD Work Phone: [facility] 10-10-2021 10:44-0400 Diastolic blood pressure 65 mm[Hg] Jus Medina MD Work Phone: [facility] 10-10-2021 10:44-0400 Heart rate 76 /min Jus Medina MD Work Phone: [facility] 10-10-2021 10:44-0400 SaO2% (BldA) [Mass fraction] 98 % Jus Medina MD Work Phone: [facility] 10-10-2021 [id number] Systolic blood pressure 137 mm[Hg] Jus Medina MD Work Phone: [facility] Encounters Encounter Date Encounter Type Care Provider Facility Start: 10-27-2023 Telephone encounter Jay patel MD Work Phone: General Surgery Start: 10-15-2023 End: 10-15-2023 ambulatory JAY GONZALEZ Facility:[facility] Start: 10-01-2023 End: 10-01-2023 ambulatory ANGELA BINGHAM Not Available Start: 08-10-2023 (RD) [facility] Start: 08-10-2023 End: 08-10-2023 ambulatory Juancarlos Cuenca [facility] Other Start: 08-03-2023 End: 08-04-2023 ambulatory Hanh Wade MD Facility: [facility] Start: 07-27-2023 End: 07-28-2023 ambulatory Hanh Wade MD Facility: [facility] Start: 06-17-2023 End: 06-17-2023 ambulatory [facility]os Cuenca Other [facility] Other Start: 06-17-2023 Telephone encounter [facility] Start: 06-16-2023 End: 06-16-2023 ambulatory Juancarlos Cuenca Other [facility] Other Start: 06-16-2023 Telephone encounter Juancarlos BELL [facility] Start: 06-09-2023 End: 06-09-2023 ambulatory Juancarlos Cuenca Other [facility] Other Start: 06-09-2023 Telephone encounter Juancarlos [facility] Start: 06-08-2023 End: 06-08-2023 ambulatory Juancarlos Ball Other [facility] Other Start: 06-08-2023 Telephone encounter Juancarlos Ball [facility] Start: 06-07-2023 End: 06-07-2023 ambulatory Juancarlos Ball Other [facility] Other Start: 06-07-2023 Telephone encounter Juancarlos Ball [facility] Start: 06-05-2023 End: 06-05-2023 ambulatory Juancarlos Ball Other [facility] Other Start: 06-05-2023 Office outpatient vi sit 25 minutes [facility]os [facility] Start: 05-27-2023 End: 05-27-2023 ambulatory Juancarlos Ball Other [facility] Other Start: 05-27-2023 Telephone encounter Juancarlos Ball [facility] Start: 05-17-2023 End: 05-17-2023 ambulatory Juancarlos Ball Other [facility] Other Start: 05-17-2023 Telephone encounter Juancarlos Ball [facility] Start: 05-15-2023 End: 05-15-2023 ambulatory Juancarlos Ball Other [facility] Other Start: 05-15-2023 Telephone encounter Juancarlos Ball [facility] Start: 05-07-2023 End: 05-07-2023 ambulatory Juancarlos Ball Other [facility] Other Start: 05-07-2023 Telephone encounter Juancarlos Ball [facility] Start: 05-06-2023 End: 05-06-2023 ambulatory Juancarlos Ball Other [facility] Other Start: 05-06-2023 Office outpatient vi sit 25 minutes Juancarlos Cuenca [facility] Start: 05-06-2023 Telephone encounter Juancarlos Cuenca [facility] Start: 04-22-2023 End: 04-22-2023 ambulatory [facility] Start: 04-04-2023 End: 04-04-2023 ambulatory Juancarlos Cuenca Other [facility] Other Start: 04-04-2023 Telephone encounter Juancarlos BELL [facility] Start: 03-10-2023 End: 03-10-2023 ambulatory Juancarlos Cuenca Other [facility] Other Start: 03-10-2023 Office outpatient vi sit 25 minutes Juancarlos Cuenca [facility] Start: 12-24-2022 End: 12-24-2022 ambulatory Juancarlos Cuenca Other [facility] Other Start: 12-24-2022 Telephone encounter Juancarlos BELL [facility] Start: 12-17-2022 End: 12-18-[address] NYA BIRD . Facility:[facility] Start: 12-16-2022 End: 12-16-2022 ambulatory NARENDRANATH LAKSHMIPATHY . Facility:[facility] Start: 12-02-2022 End: 12-03-2022 ambulatory Nya BIRD Facility:[facility] Start: 11-28-2022 End: 11-29-2022 ambulatory MANAV GARY . Facility:[facility] Start: 11-28-2022 End: 11-29-2022 ambulatory NARENDRANATH LAKSHMIPATHY . Facility:[facility] Start: 11-11-2022 End: 11-11-2022 ambulatory NARENDRANATH LAKSHMIPATHY . Facility:[facility] Start: 10-28-2022 End: 10-29-[address] EVAN LAMAS . Facility:[facility] Start: 10-16-2022 End: 10-16-2022 Patient encounter procedure Jay Gonzalez MD Work Phone: General Surgery Comment on above: Ventral incisional h ernia (Primary Dx) Start: 10-11-2022 ambulatory JAY GONZALEZ Facility:[facility] Start: 10-11-2022 End: 10-11-2022 Subsequent hospital visit by physician Ct [facility] Comment on above: Ventral incisional h joaquina [K43.2] Start: 10-06-2022 Telephone encounter Jay patel MD Work Phone: General Surgery Comment on above: Patient Question Start: 09-16-2022 Telephone encounter Ju[facility]arlos Cuenca [facility] Start: 09-16-2022 End: 09-17-2022 ambulatory Nya BIRD [facility] [employer] Other Start: 09-16-2022 End: 09-27-2022 Pre-admission assessment Nya BIRD [facility] Start: 09-12-2022 Telephone encounter Juancarlos Cuenca [facility] Start: 09-12-2022 End: 09-13-[address] JUANCARLOS CUENCA [facility] [employer] Other Start: 09-08-2022 End: 09-08-2022 ambulatory Juancarlos Cuenca Other [facility] Other Start: 09-08-2022 Patient encounter procedure Juancarlos Cuenca [facility] Start: 07-31-2022 End: 08-01-[address] EVAN LAMAS . Facility:[facility] Start: 07-03-2022 Encounter for preprocedural laboratory examination DR EVAN LAMAS . [facility] Start: 07-01-2022 End: 07-01-[address] EVAN LAMAS . Facility:[facility] Start: 06-27-2022 End: 06-28-[address] EVAN LAMAS . Facility:[facility] Start: 06-27-2022 End: 06-28-2022 Encounter for preprocedural laboratory examination DR EVAN LAMAS . Facility:[facility] Start: 05-29-2022 End: 05-30-[address] EVAN LAMAS . Facility:[facility] Start: 05-19-2022 End: 05-19-2022 ambulatory [facility] Start: 05-13-2022 End: 05-13-[address] [...] JUANCARLOS CUENCA Facility:[facility] Start: 01-27-2022 End: 01-27-2022 Patient encounter procedure Jus Medina MD Work Phone: Colorectal Surgery Comment on above: Polyposis of colon ( Primary Dx); Incisional hernia, without obstruction or gangrene Start: 10-11-2021 Telephone encounter Shilpa Storm MD Work Phone: [facility] Comment on above: Research Start: 10-10-2021 End: 10-10-2021 Patient encounter procedure Jay Gonzalez MD Work Phone: General Surgery Comment on above: Ventral incisional h ernia (Primary Dx) Polyposis of colon ( Primary Dx) Start: 12-26-2020 End: 12-29-2020 ambulatory JUANCARLOS CUENCA Facility:[facility] Start: 10-19-2020 End: 10-20-2020 ambulatory JUANCARLOS CUENCA Facility:[facility] Procedures Date Procedure Procedure Detail Performing Clinician Start: 10-04-2021 Partial resection of colon Nya BIRD Start: 10-04-2021 Repair of ventral hernia Nya BIRD Start: 04-08-2021 Colonoscopy Nya ABARCA Comment on above: Transverse and desce nding colon polyps Start: 12-26-2020 ANESTH KNEE ARTHROPLASTY JUANCARLOS CUENCA Start: 12-26-2020 Arthrp kne condyle&p latu medial&lat compartments TY AVALOS Start: 12-26-2020 JOINT DEVICE (IMPLANTABLE) JUANCARLOS CUENCA Start: 11-17-2017 Colonoscopy Nya ABARCA Comment on above: 2004 (2), 2005, 2007 , 2009, 2011, 05/2015, 11/2017 Start: 03-06-2016 Transurethral prostatectomy Nya BIRD Start: 02-18-2016 Cystoscopy Nya ABARCA Start: 01-16-2016 Urodynamic studies [place] aeandreas BIRD Start: 07-20-2012 Hernia repair Nya ROSARIO Start: 08-26-2007 Prosthetic arthropla sty of the hip Nya SAVAGEAndreas Start: 08-20-2007 Hernia of anterior abdominal wall (disorder) Nya BIRD Start: 04-19-2004 Transrectal biopsy o f prostate using ultrasound guidance Nya SAVAGEAndreas Atherectomy Nya BIRD Comment on above: with stent 2006 Bilateral vasectomy Nya BIRD Decompression of med med nerve Nya BIRD Through knee amputation [place] aeandreas NILL Plan of Treatment Date Care Activity Detail Author Start: 10-14-2024 BP Controlled (<130/80) BP Controlle d (<130/80) [facility] Start: 07-20-2023 Advance Directive Discussion Advance Directive Discussion [facility] Start: 07-20-2023 Behavioral Health Screening Behavioral Health Screening [facility] Start: 10-10-2022 End: 11-09-2022 Ct abdomen & pelvis w/o contrast material CT ABD/PEL WO IVCON Radiology Routine Ventral incisional hernia Expected: 10/10/2022, Expires: 11/09/[address] [facility] Work Phone: Comment on above: Expected: 10/10/2022 , Expires: 11/09/2022 Start: 07-20-2022 ADVANCE DIRECTIVE DISCUSSION ADVANCE DIRECTIVE DISCUSSION [facility] Start: 07-20-2022 DEPRESSION ASSESSMENT DEPRESSION ASS ESSMENT [facility] Start: 03-20-2022 Influenza vaccination INFLUENZA (#1) [facility] Start: 03-13-2022 Hemoglobin A1c measurement HbA1C [facility] Start: 03-13-2022 Hemoglobin A1c/Hemoglobin.total in Blood HBA1C [facility] Start: 01-04-2022 COVID-19 VACCINE (5 - Booster for Pfizer series) COVID-19 VACCINE (5 - Booster for Pfizer series) [facility] Start: 07-20-2021 ADVANCE DIRECTIVE DISCUSSION ADVANCE DIRECTIVE DISCUSSION [facility] Start: 04-19-2015 Pneumococcal Vaccine : 65+ (2 of 2 - PCV) Pneumococcal Vaccine: 65+ (2 of 2 - PCV) [facility] Start: 2009 PNEUMOVAX AGE 65 AND OVER WITH 5YR LOOKBACK (#1) PNEUMOVAX AGE 65 AND OVER WITH 5YR LOOKBACK (#1) [facility] Start: 1994 SHINGRIX VACCINE (1 of 2) SHINGRIX VACCINE (1 of 2) [facility] Start: 12-31-1963 Urine microalbumin profile [facility] Start: 1962 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 Start: 1956 Adult depression screening assessment DEPRESSION SCREENING [facility] Start: 1954 3 comp foot exam completed DIABETIC FOOT EXAM [facility] Start: 1954 Diabetic foot examination Diabetic Foot Exam [facility] Start: 1954 Glaucoma screening Dilated Retinal E xam [facility] Start: 1954 Hepatitis B screening URINE ALBUMIN:CREATININE RATIO [facility] Start: 1954 Hepatitis C antibody , confirmatory test DILATED RETINAL EXAM [facility] Start: 1950 PNEUMOCOCCAL: 65+ (1 - PCV) PNEUMOCOCCAL: 65+ (1 - PCV) [facility] End: 10-11-2022 Ct abdomen & pelvis w/o contrast material [facility] Work Phone: Comment on above: 1 Occurrences starti ng 10/11/2022 until 10/11/2022 End: 11-15-2023 Ct abdomen & pelvis w/o contrast material CT ABD/PEL WO IVCON Radiology Routine Ventral incisional hernia 1 Occurrences starting 10/16/2022 until 11/15/[address] [facility] Work Phone: Comment on above: 1 Occurrences starti ng 10/16/2022 until 11/15/2023 [facility] Immunization Date Immunization Notes Care Provider [facility] 05-20-2022 influenza virus vaccine, unspecified formulation Nya BIRD [facility] [place] 05-16-2022 influenza, high dose seasonal, preservative-free Juancarlos Cuenca Other [employer] Other 05-16-2022 influenza virus vaccine, split virus (incl. purified surface antigen) [facility]os Cuenca Other [facility] [facility] [employer] Other 04-15-2022 SARS-CoV-2 (COVID-19 ) [id number] Nya BIRD [facility] 11-09-2021 COVID-19 Vaccine Pfi zer - Documentation Purposes Only [facility]os Cuenca Other [facility] Other 11-09-2021 SARS-CoV-2 mRNA (hqnlevodyzv-[id number] se) vaccine Nya BIRD [facility] 04-19-2021 SARS-CoV-2 (COVID-19 ) mRNA BNT-162b2 vax Nya BIRD [facility] Comment on above: Result Comment: 2022: [id number] 09-05-2020 SARS-CoV-2 (COVID-19 ) mRNA BNT-162b2 [email or web address] [facility] Comment on above: Result Comment: 2022: [id number] 08-15-2020 COVID-19 Vaccine Moderna - Documentation Purposes Only [facility]os Cuenca Other [facility] Other 08-15-2020 SARS-CoV-2 (COVID-19 ) mRNA BNT-162b2 [email or web address] [facility] Comment on above: Result Comment: 2022: [id number] 03-28-2020 influenza virus vaccine, split virus (incl. purified surface antigen) [facility]os Bang Other [facility] Other 05-17-2019 influenza virus vaccine, split virus (incl. purified surface antigen) [facility]os Bang Other [employer] Other 05-13-2018 influenza virus vaccine, split virus (incl. purified surface antigen) [facility] Bang Other [employer] Other 04-25-2015 influenza virus vaccine, split virus (incl. purified surface antigen) [facility] Bang Other [employer] Other 04-25-2015 pneumococcal conjuga te vaccine, 13 valent Ju[facility]arlos Cuenca Other [facility] Other 04-19-2014 pneumococcal polysaccharide vaccine, 23 valent Ju[facility]os Cuenca Other [employer] Other 04-20-2013 tetanus and diphther ia toxoids, adsorbed, preservative free, for adult use (5 Lf of tetanus toxoid and 2 Lf of diphtheria toxoid) [facility]os Bang Other [employer] Other 04-21-2012 pneumococcal polysaccharide vaccine, 23 valent Juancarlos Cuenca Other [employer] Other Payers Date Payer Category Payer Self-pay 2023 Unknown 2020 Private Health Insurance [facility] AARP SUPPLEMENT [id number] 2020-Present [phone] [address] [place] [address] Indemnity [id number] 2020 Private Health Insurance [facility] AARP SUPPLEMENT [id number] 2020-Present [phone] [address] [place] [address] Indemnity [id number] 2009 Medicare MEDICARE MEDICAR E A AND B [id number] 2009-Present [phone] [place] [address] Medicare [id number] 2009 Medicare [id number] 1959 Medicare [id number] 1959 Unknown [id number] 1944 Unknown [id number] 2.16.840.1.593569.3.579.2 .647 1944 Unknown [id number] 2.16.840.1.275995.3.579.2 .647 1944 Unknown [id number] 2.16.840.1.486284.3.579.2 .593 1944 Unknown [id number] 2.16.840.1.196438.3.579.2 .593 1944 Unknown [id number] 2.16.840.1.297914.3.579.2 .593 1944 Unknown [id number] 2.16.840.1.002904.3.579.2 .593 1944 Unknown [id number] 2.16.840.1.514774.3.579.2 .593 1944 Unknown [id number] 2.16.840.1.572904.3.579.2 .593 1944 Unknown [id number] 2.16.840.1.046630.3.579.2 .593 1944 Unknown [id number] 2.16.840.1.507861.3.579.2 .593 1944 Unknown [id number] 2.16.840.1.440182.3.579.2 .593 1944 Unknown [id number] 2.16.840.1.172396.3.579.2 .593 1944 Unknown [id number] 2.16.840.1.317286.3.579.2 .593 1944 Unknown [id number] 2.16.840.1.599613.3.579.2 .593 1944 Unknown [id number] 2.16.840.1.108182.3.579.2 .593 1944 Unknown [id number] 2.16.840.1.487909.3.579.2 .593 1944 Unknown [id number] 2.16.840.1.477255.3.579.2 .593 1944 Unknown [id number] 2.16.840.1.166692.3.579.2 .593 1944 Unknown [id number] 2.16.840.1.068636.3.579.2 .593 1944 Unknown [id number] 2.16.840.1.395955.3.579.2 .593 1944 Unknown [id number] 2.16.840.1.502588.3.579.2 .593 1944 Unknown [id number] 2.16.840.1.641029.3.579.2 .727 1944 Unknown [id number] 2.16.840.1.400488.3.579.2 .727 1944 Unknown [id number] 2.16.840.1.165215.3.579.2 .727 1944 Unknown [id number] 2.16.840.1.852934.3.579.2 .196 1944 Unknown [id number] 2.16840.1.882201.3.579.2 .196 1944 Unknown [id number] 2.16.840.1.299882.3.579.2 .1259 Unknown [id number] Unknown [id number] 2.16.840.1.047715.19 Unknown [id number] 2.16.840.1.644690.3.579.2 .531 Social History Date Type Detail Facility Start: 05-21-2021 End: 10-16-2022 Tobacco smoking status NHIS Ex-smoker [facility] End: 07-20-1994 History of tobacco use Current smoker [facility] End: 07-20-1994 History of tobacco use Cigar Smoker [facility] Start: 05-21-2021 End: 10-16-2022 Tobacco use and exposure Smokeless tobacco non-user [facility] Start: 10-10-2021 End: 10-15-2023 Alcohol intake Ex-drinker (finding) [facility] Start: 05-21-2021 End: 10-16-2022 Tobacco Comment Quit 15+ years [facility] Start: 1945 Sex Assigned At Not on file C [facility] Start: 08-25-2021 End: 09-24-2021 Exposure to SARS-CoV-2 (event) Not sure [facility] Start: 09-16-2022 Tobacco smoking status Never s moked tobacco (finding) [facility] Tobacco smoking status Former sm okeless tobacco user, quit more than 30 days ago [facility] Start: 10-15-2023 Sex Assigned At Male F [facility] Start: 10-15-2023 History of Social function [facility] Medical Equipment Procedure Code Equipment Code Equipment Origin al Text Equipment Identifier Dates Mesh Parietene Polypropylene Macroporous [id number] Surgical Monofilament - [id number] Start: 09-24-2021 Clinical Notes 12-29-2020 to 10-28-2023 Telephone Encounter - Efrain Zamarripa RN - 10/28/2023 8:29 AM EDTTelephone Encounter - Wendi De La Paz - 10/27/2023 9:52 AM EDT Note Date & Type Note Facility 10-28-2023 Miscellaneous Notes Formattin g of this note might be different from the original. Returned call and spoke with patient. She reports the patient had the MRI; there were concerned the mesh may be an issue. Explained the mesh would not effect the MRI. She states her understanding and is appreciative of the call. Patient contacted the office of Dr. Gonzalez to advise that has MRI scheduled today at 12:45 and asked is they should be concerned with his mesh and being able to complete test today. Also inquiring if the office received mailed disc with imaging as well. Patient and or can be reached at [phone]. Thank you. Wendi Traore documented in this encounter [facility] 10-15-2023 Note HNO ID: [id number] Author: JAY GONZALEZ MD Service: ? Author Type: Physician Type: Progress Notes Filed: 10/15/2023 13:41 Note Text: [facility] - Follow Up Visit Assessment/Plan: Lizzy Yee is a 77 year old male with a history of HTN, HLD, CAD, BPM, Anxiety, Obesity (BMI 38), BHUPENDRA, and colonic polyposis syndrome s/p subtotal colectomy with concomitant abdominal wall reconstruction with Dr. Medina on 09/24/21. He was seen for a one year follow up 10/16/22 and was feeling well. There was concern he may have had a subxiphoid recurrence based on his CT scan (10/11/22) but neither the patient nor myself felt a bulge on exam. When last seen, I believed this represented a bridged repair and that despite our primary closure with figure of eights, the rectus muscles just beneath the xiphoid pulled about do to the significant tension in the area, but that the underlying mesh and repair remain intact with a bridged repair. He is now two years post op and doing well. 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 We will obtain a CT to check on this and if stable, I won't plan for any more follow up imaging unless there is clinical concern. He has gained weight and we discussed the need to work on this. - CT abd/pel - 1 year follow up Subjective: Reports that he has gained too much weight. He has been trying to work on this with his anaith a little weight loss over the last few mionths. His activity has been limited by his knees and back but he is motivated to work on this. Typically having 3 bowel movements a day, these are generally loose. He takes fiber but does not take any bowel stopper. He reports that he was noted to have some elevated liver enzymes and was going to have imaging of his gallbladder and liver. He denies any right upper quadrant abdominal pain. I doubt that this is symptomatic cholelithiasis. If he were to need a formal surgical evaluation for his gallbladder, I am happy to take care of him. Objective: AAOx3, NAD Non-labored respirations on RA Abdomen soft, obese, non-distended, and non-tender. 3 cm subxiphoid fascial defect. No bulge through this with valsalva and no pain. Jay Gonzalez MD 10/15/23, 1:38 PM General Surgery [facility] Medical Decision Making: Problems: Low: Stable chronic illness Risk: Low: Low risk from testing/treatment Medical Decision Making Level: 3 - Low [facility] 08-10-2023 Evaluation note Encounter Date Diagnosis Assessment Notes Jul, Other Summary of Visit: (A) Meal timing (B) DM2 nutrition education (C) Answered general, nutrition-rela maru questions [facility] Other 11-28-2023 Evaluation note* Encounter Date Diagnosis Assessment Notes Treatment Notes Treatment Clinical Notes May, Type 2 diabetes mellitus with hyperglycemia, without long-term current use of insulin (ICD-10 - E11.65) [employer] Other 11-28-2023 Evaluation note* Encounter Date Diagnosis Assessment Notes Treatment Notes Treatment Clinical Notes May, Primary hypertension (ICD-10 - I10) [employer] Other 11-21-2023 Evaluation note* Encounter Date Diagnosis Assessment Notes Treatment Notes Treatment Clinical Notes May, Type 2 diabetes mellitus with hyperglycemia, without long-term current use of insulin (ICD-10 - E11.65) [employer] Other 11-17-2023 Evaluation note* Encounter Date Diagnosis [...] use, the patient reduces the risk for AR, CVA, HTN, cardiac dysrhythmias and sudden cardiac [...] index [BMI] 39.0-39.9, adult (ICD-10 - Z68.39) [employer] Other 11-08-2023 Evaluation note* Encounter Date Diagnosis Assessment Notes Treatment Notes Treatment Clinical Notes May, Primary hypertension (ICD-10 - I10) [employer] Other 10-29-2023 Evaluation note* Encounter Date Diagnosis Assessment Notes Treatment Notes Treatment Clinical Notes Apr, Type 2 diabetes mellitus with hyperglycemia, without long-term current use of insulin (ICD-10 - E11.65) Apr, Primary hypertension (ICD-10 - I10) [employer] Other 10-19-2023 Evaluation note* Encounter Date Diagnosis Assessment Notes Treatment Notes Treatment Clinical Notes Apr, Type 2 diabetes mellitus with hyperglycemia, without long-term current use of insulin (ICD-10 - E11.65) [employer] Other 10-18-2023 Evaluation note* Encounter Date Diagnosis Assessment Notes Treatment Notes Treatment Clinical Notes Apr, ASHD (arteriosclerotic heart disease) (ICD-10 - I25.10) This patient is stable without activity related CP, dyspnea or lightheadedness. They are instructed to continue exercise and AHA diet plan. Continue secondary prevention measures. 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 Monitor for now Apr, Atherosclerosis of cachil dehe artery of right lower extremity with rest pain (ICD-10 - I70.221) Walk daily until painful. Inspect feet daily for cuts. Continue secondary prevention measures. Scheduled post op JAMIR [employer] Other 10-18-2023 Evaluation note* Encounter Date Diagnosis Assessment Notes Treatment Notes Treatment Clinical Notes Apr, Type 2 diabetes mellitus with hyperglycemia, without long-term current use of insulin (ICD-10 - E11.65) [facility] Chief Complaint: Patient here for 1 year follow up CAD, PVD, and hypertension. He underwent LE angiogram last month with Dr. Mccurdy of [facility]. He sees him for [...] history of Coronary artery disease, Diabetes mellitus (CMS/[facility]), Hypertension, PVD (peripheral vascular disease) (CMS/[facility]), and Sleep apnea. Surgical History He has [...] common femoral artery. Surgeon: Jyoti Mccurdy Primary Arc Trimmer: None. Anesthesia: Local with 1% lidocaine and sedation. EBL: 10 cc Complications: None. 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 Procedure: Patient was brought to the angiogram suite. He was placed on the table in supine position. Left groin area was prepped and draped in the usual sterile fashion. Patient was given (more content not included)...[facility]08-22-2023 Evaluation note* Encounter Date Diagnosis [...] use, the patient reduces the risk for AR, CVA, HTN, cardiac dysrhythmias and sudden cardiac [...] [BMI ] 39.0-39.9, adult (ICD-10 - Z68.39) [employer] Other 05-31-2023 NoteOPERATIVE NOTE OPERATION DATE: 11/29/2022 [...] be in three years. CC: Juancarlos Cuenca D.O.[facility]05-12-2023 NotePROCEDURE: XR HIP LT 2 3V WO PELVIS HISTORY: Pain of left hip joint COMPARISON: None. FINDINGS: BONES:No fracture, acute abnormality, or significant arthropathy. SOFT TISSUES:No visible soft tissue swelling. EFFUSION:None visible. OTHER: Negative. IMPRESSION: 1. No acute bone abnormality. 2. Mild degenerative joint disease. Electronically authenticated by: GABY PADILLA Date: 2022-11-28 13:08[facility]04-11-2023 NoteCONSULTATION CONSULTATION DATE: 10/28/2022 TO: Juancarlos Cuenca [...] our patients to inform us about any pihr-lgl-abrbzpr medications or herbal remedies/nutritional supplements/alternative remedies. 2. [...] treatment options with their primary care provider.[facility] [id number] History of Present illness Narrative* Jay Gonzalez MD - 10/16/2022 2:38 PM EDT [facility] - Follow Up Visit Assessment/Plan: Lizzy Yee is a 75 year old male with a history of HTN, HLD, CAD, BPM, Anxiety, Obesity (BMI 38), BHUPENDRA, and colonic polyposis syndrome s/p subtotal colectomy with concomitant abdominal wall reconstruction with Dr. Medina on 09/24/21 and is now 1 year [...] Gonzalez MD 10/16/22, 2:45 PM General Surgery [facility] * Destiny Zapata MA - 10/16/2022 1:09 PM EDT What is the reason for your visit today? Follow up 1 year Who is your referring physician? Are you having poor oral intake? NO Have you had unintentional weight loss of 15 lbs/7 Kg in the last 3-6 months? NO Bowels: regular Wound: Temperature: No Drains: No documented in [facility] encounterL[facility]03-25-[facility]23 Miscellaneous Notes* Allied Health - RT [...] 11, 2022 10:29 AM documented in this encounterL[facility]03-21-2023 Miscellaneous Notes* Telephone Encounter - Efrain Zamarripa [...] or so at a non facility. PH: [phone] documented in this encounterL[facility]02-24-2023 Evaluation note* Encounter Date Diagnosis Assessment Notes Treatment Notes Treatment Clinical Notes Aug, Left carotid artery stenosis (ICD-10 - I65.22) US: right <50%, left 50-69% - 10/2020 US: right <50%, left 80-90% - 08/2022 [employer] Other 02-20-2023 Evaluation note* Encounter Date Diagnosis [...] use, the patient reduces the risk for AR, CVA, HTN, cardiac dysrhythmias and sudden cardiac [...] reviewed and amended by provider signed below. [employer] Other 01-12-2023 NoteCONSULTATION PROCEDURE DATE: 09/18/2022 PREOPERATIVE [...] will be followed up in the office.[facility] [id number] NoteCONSULTATION CONSULTATION DATE: 07/31/2022 HISTORY OF PRESENT [...] and the patient agrees with this plan.[facility] 05-29-2022 NoteCONSULTATION CONSULTATION DATE: 05/29/2022 HISTORY OF [...] be followed up in the clinic thereafter.[facility] [id number] NotePatient here for 1 year follow up CAD, hypertension, and PVD. Had labs in September 2021 while at [facility] for colon surgery/hernia repair. He became hypotensive s/p surgery so his BP meds were adjusted. Denies chest pain and palpitations. Says his SOB with exertion remains unchanged. Review of Systems Cardiovascular: Positive for dyspnea on exertion. Musculoskeletal: Positive for arthritis, back pain, joint pain, muscle weakness and myalgias. Neurological: Positive for light-headedness and numbness.[facility]10-31-2022 NoteSUBJECTIVE Chief Complaint Patient presents with Coronary Artery Disease Hypertension Peripheral Vascular Disease Lizzy Yee is a 76 y.o. male here for follow-up. HPI Patient here for 1 year follow up CAD, hypertension, and PVD. Had labs in September 2021 while at [facility] for colon surgery/hernia repair. He [...] position changes. HOSPITAL COURSE (from 09/2021 at [facility]): Mr Yee is a 75 year old male who was admitted for the above mentioned scheduled surgery with Dr. Medina and Dr. Gonzalez. Post-op in the ICU [...] Coronary artery disease PVD (peripheral vascular disease) ([facility]) Hx of CABG Past Medical History: Diagnosis Date Coronary artery disease Diabetes mellitus ([facility]) Hypertension PVD (peripheral vascular disease) ([facility]) Sleep apnea Family History Problem Relation Name [...] 0.4 mg by mo (more content not included)...[facility]10-06-2022 NoteCONSULTATION CONSULTATION DATE: 04/24/2022 This [...] approval to hold his Plavix from his special events assistant. A refill for Baclofen 10 mg q.h.s. [...] knee osteoarthritis. The patient is in agreement.[facility] [id number] Note CONSULTATION CONSULTATION DATE: 03/25/2022 CHIEF COMPLAINT: 1. Low back pain. 2. Left knee pain. HISTORY OF PRESENT ILLNESS: This is a very pleasant, 76-year-old male, who is known to the pain practice remote. The patient had a right total knee replacement at [facility]. The patient is doing well with [...] patient understands and would like to proceed.[facility] 01-27-2022 Nurse Note* Sarah Osman MA - 01/27/2022 [...] Temperature: No Drains: No documented in this encounterL[facility]07-11-2022 History of Present illness Narrative* Jus Medina MD - 01/27/2022 1:00 PM EDT HPI [...] - Follow up anytime as needed. Jus Medina MD documented in this encounterLake[facility]03-25-2022 Miscellaneous Notes* Telephone Encounter - Shan Parham - 10/11/2021 3:09 PM EDTSummary: IRB#: [id number] Research Outreach IRB# [id number], Qualitative Interviews in Postoperative Gastrointestinal Dysfunction (POGD). PI: Shilpa Storm MD, SANJIV, FASA. Outcomes Research Department. [facility] [place]. This is a research study note. Patient [...] there for his review. Shan Parham Research Arc Trimmer Anesthes[facility] [place] Outcomes Research Department documented in this encounterLakehealth [facility]03-24-2022 History of Present illness Narrative* Jay Gonzalez MD - 10/10/2021 1:37 PM EDT [facility] - Follow Up Visit Assessment/Plan: Lizzy Yee is a 75 year old male with a history of HTN, HLD, CAD, BPM, Anxiety, Obesity (BMI 38), BHUPENDRA, and colonic polyposis syndrome s/p subtotal colectomy with concomitant abdominal wall reconstruction with Dr. Medina on 09/24 who presents for follow up [...] the care that he received while at [place]. Objective: AAOx3, NAD Non-labored respirations on room [...] Gonzalez MD 10/10/21, 1:37 PM General Surgery [facility] documented in this encounterLakehealth [facility]03-24-2022 History of Present illness Narrative* Jus Medina MD - 10/10/2021 11:00 AM EDT HPI Lizzy Yee is a 75 year old male here today for postop Open subtotal colectomy with stapled fgmf-iw-pjjo ileosigmoid anastomosis ventral herniorrhaphy with transversus abdominus [...] - follow up in 3-4 months Jus Medina MD documented in this encounterLake[facility]03-24-2022 Nurse Note* Elena Ferrell MA - 10/10/2021 10:45 AM EDT What is the reason for your visit today? Follow up Who is your referring physician? Self Are you having poor oral intake? NO Have you had unintentional weight loss of 15 lbs/7 Kg in the last 3-6 months? NO Bowels: regular Wound: none Temperature: No Drains: No documented in this encounterLake[facility]03-08-2022 History of Past illness Narrative* Problem Noted Date Resolved Date 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 documented as of this encounter (statuses as of 10/10/2021) [facility]03-08-[facility] History of Past illness Narrative* Problem Noted Date Resolved Date 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 documented as of this encounter (statuses as of 10/10/2021) [facility]03-08-[facility] History of Past illness Narrative* Problem Noted Date Resolved Date 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 documented as of this encounter (statuses as of 10/11/2021) [facility]03-08-[facility] History of Past illness Narrative* Problem Noted Date Resolved Date 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 documented as of this encounter (statuses as of 02/05/2022) [facility]03-[facility] History of Past illness Narrative* Problem Noted Date Resolved Date 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 documented as of this encounter (statuses as of 10/07/2022) [facility]03-08-20[facility] History of Past illness Narrative* Problem Noted Date Resolved Date 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 documented as of this encounter (statuses as of 10/12/2022) [facility]03-08-[facility] History of Past illness Narrative* Problem Noted Date Resolved Date 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 documented as of this encounter (statuses as of 10/12/2022) [facility]03-08-2022 History of Past illness Narrative* Problem Noted Date Resolved Date 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 documented as of this encounter (statuses as of 10/16/2022) [facility]03-08-2022 History of Past illness Narrative* Problem Noted Date Diagnosed Date Resolved Date 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 documented as of this encounter (statuses as of 10/28/2023) [facility]06-12-2021 NoteMR#: [id number] [facility] Pt. Name: Lizzy Yee Admitted: 12/26/2020 Discharged: 12/29/2020 Date of : 1945 Physician: Ty Avalos M.D. DISCHARGE SUMMARY [facility] Pt. Name: Kurt Yee Admitted: [...] CONDITION AT DISCHARGE: Stable DISPOSITION: Home with [facility] DISCHARGE INSTRUCTIONS: Take medications as [...] Cano MD Date Trans: 12/29/2020 08:18 P/ BARRETT_JN:[id number] cc: Juancarlos Cuenca D.O. [address] [place] [id number] [facility]Evaluation + Plan note No data available for this section [facility]* Diagnosis Ventral incisional hernia- Primary documented in this encounter [facility] note* Diagnosis Polyposis of colon- Primary Benign neoplasm of colon documented in this encounter [facility] note* Diagnosis Polyposis of colon- Primary Benign neoplasm of colon Incisional hernia, without obstruction or gangrene Incisional hernia without mention of obstruction or gangrene documented in this encounter [facility] noteNo [employer] [employer] Other Evaluation note* Diagnosis Ventral incisional hernia documented in this encounter [facility] note* Diagnosis Ventral incisional hernia- Primary documented in this encounter [facility] general Narrative - Reported* Type [...] RIGHT HEMICOLECTOMY 2003 Hospitalization History SEE SURGICAL [facility] Other History general Narrative - Reported* Type [...] History Colonoscopy 12/2022 Hospitalization History SEE SURGICAL [facility] Other History general Narrative - Reported* Type [...] anaya 03/2023 Hospitalization History SEE SURGICAL HX [facility] Other Hospital Discharge instructions No data available for this section [facility] No data available for this section [facility] HospitalReason for referral (narrative)* Reason 10/09/22 Referral for carotid artery stenosis Diagnosis 1 Left carotid artery stenosis (I65.22) Referral Organization [facility] nemo Referring Provider First Name Juancarlos Referring Provider Last Name Bang Referring Provider Specialty Internal Me dicine Ref[facility] Referred Provider Jyoti Mccurdy Referred Address [address] [place], [place],[address] Referred Provider Specialty Vascular Ruslan kajal Referral Priority Routine Referral Appointment Date 2022-10-09 General Notes Mr. Hooper is being r eferred for carotid artery stenosis. He recently completed carotid artery US at [facility], which revealed 87% left carotid bulb stenosis. The ICA velocities are not elevated, which was suggested to be due to hemodynamically significant stenosis in the left bulb. Seema Jaquez 09/23/2022 01:11:23 PM >received today, attachments made, referral faxed Janae Fulton 09/29/2022 02:11:56 PM > Patient is scheduled on 10/09 at 10 a.m. at [facility] Clinical Notes Mr. Hooper is being r eferred for further evaluation and treatment of left carotid artery stenosis. He has multiple risk factors, including HTN, HLD, DM and PAD. He has no history of TIA or CVA. He denies diplopia, loss of vision, dysarthria, facial droop or unilateral extremity weakness. F: [phone] [employer] Other Summary Purpose Family History No Family History Records FoundNo Family History Records FoundNo Family History Records FoundNo Family History Records FoundNo Family History Records FoundNo Family History Records FoundNo Family History Records FoundNo Family History Records FoundNo Family History Records Found Advance Directives No Advanced Directives Records FoundDocuments on File Type Date Recorded Patient Mental Health Orderly Expl anation Advance Directive(s) 09/24/2021 8:40 AM Advance Directive(s) 06/07/2021 10:19 AM Advance Directive(s) 05/15/2021 3:36 PM M ain Documents on File Type Date Recorded Patient Mental Health Orderly Expl anation Advance Directive(s) 09/24/2021 8:40 AM Advance Directive(s) 06/07/2021 10:19 AM Advance Directive(s) 05/15/2021 3:36 PM M ain Documents on File Type Date Recorded Patient Mental Health Orderly Expl anation Advance Directive(s) 09/24/2021 8:40 AM Documents on File Type Date Recorded Patient Mental Health Orderly Expl anation Advance Directive(s) 09/24/2021 8:40 AM Reason for Referral Specialty Diagnoses / Procedures Referred By Contac t Referred To Contact CT IMAGING Diagnoses Ventral incisional hernia Procedures CT ABD/PEL WO IVCON CT ABD & PELVIS W/O CONTRAST Jay Gonzalez MD [facility] [place] [address] Ct Imaging Referral ID Status Reason Start Date Expiration Date Visits Requested Visits Authorized [id number] Pending Review Auto-Generat ed Referral 10/10/2022 11/09/2022 1 1 Referral ID Status Reason Start Date Expiration Date V isits Requested Visits Authorized [id number] Closed Auto-Generate d Referral 10/10/2022 11/09/2022 1 1 Specialty Diagnoses / Procedures Referred By Contac t Referred To Contact CT IMAGING Diagnoses Ventral incisional hernia Procedures CT ABD/PEL WO IVCON CT ABD & P[place] [address] [place] [address] Ct Imaging Referral ID Status Reason Start Date Expiration Date Visits Requested Visits Authorized [id number] Pending Review Auto-Generat ed Referral 10/16/2022 11/15/2023 1 1 Additional Source Comments (unrecognized sect ion and content) No Status Records FoundNo Status Records FoundNo Status Records FoundNo Status Records FoundNo Status Records FoundNo Status Records FoundNo Status Records FoundNo Status Records FoundNo Status Records Found INFORMATION SOURCE (unrecogn ized section and content) DATE CREATED AUTHOR 03/11/2021 [facility] DATE CREATED AUTHOR AUTHOR'S ORGANIZ ATION 10/13/2022 [facility] DATE CREATED AUTHOR AUTHOR'S ORGANIZ ATION 12/29/2022 [facility] DATE CREATED AUTHOR AUTHOR'S ORGANIZ ATION 12/29/2022 [facility] DATE CREATED AUTHOR AUTHOR'S ORGANIZ ATION 04/26/2023 [facility] DATE CREATED AUTHOR AUTHOR'S ORGANIZ ATION 08/12/2023 [facility] DATE CREATED AUTHOR AUTHOR'S ORGANIZ ATION 08/28/2023 [facility] DATE CREATED AUTHOR AUTHOR'S ORGANIZ ATION 10/02/2023 [facility] DATE CREATED AUTHOR AUTHOR'S ORGANIZ ATION 10/29/2023 [facility] Source Comments (unrecognize d section and content) In the event this informatio n is protected by the Federal Confidentiality of Alcohol and Drug Abuse Patient Records regulations: The Federal rules restrict any use of the information to criminally investigate or prosecute any alcohol or drug abuse patient.[facility] the event this information is protected by the Federal Confidentiality of Alcohol and Drug Abuse Patient Records regulations: The Federal rules restrict any use of the information to criminally investigate or prosecute any alcohol or drug abuse patient.[facility] Center[facility] the event this information is protected by the Federal Confidentiality of Alcohol and Drug Abuse Patient Records regulations: The Federal rules restrict any use of the information to criminally investigate or prosecute any alcohol or drug abuse patient.[facility] Center[facility] the event this information is protected by the Federal Confidentiality of Alcohol and Drug Abuse Patient Records regulations: The Federal rules restrict any use of the information to criminally investigate or prosecute any alcohol or drug abuse patient.[facility] Center[facility] the event this information is protected by the Federal Confidentiality of Alcohol and Drug Abuse Patient Records regulations: The Federal rules restrict any use of the information to criminally investigate or prosecute any alcohol or drug abuse patient.[facility] CenterIn the event this information is protected by the Federal Confidentiality of Alcohol and Drug Abuse Patient Records regulations: The Federal rules restrict any use of the information to criminally investigate or prosecute any alcohol or drug abuse patient.[facility] Center[facility] the event this information is protected by the Federal Confidentiality of Alcohol and Drug Abuse Patient Records regulations: The Federal rules restrict any use of the information to criminally investigate or prosecute any alcohol or drug abuse patient.[facility] CenterIn the event this information is protected by the Federal Confidentiality of Alcohol and Drug Abuse Patient Records regulations: The Federal rules restrict any use of the information to criminally investigate or prosecute any alcohol or drug abuse patient.[facility] CenterIn the event this information is protected by the Federal Confidentiality of Alcohol and Drug Abuse Patient Records regulations: The Federal rules restrict any use of the information to criminally investigate or prosecute any alcohol or drug abuse patient.[facility] Reason for Visit (unrecogniz ed section and content) Reason Comments Follow Up Reason Comments Follow Up Reason Onset Date Comments Research 10/11/2021 Reason Comments Established Patient Follow-Up Reason Comments Patient Question Specialty Diagnoses / Procedures Referred By Contac t Referred To Contact CT IMAGING Diagnoses Ventral incisional hernia Procedures CT ABD/PEL WO IVCON CT ABD & PELVIS W/O CONTRAST Jay Gonzalez MD [address] [place] [address] Ct Imaging Referral ID Status Reason Start Date Expiration Date V isits Requested Visits Authorized [id number] Closed Auto-Generate d Referral 10/10/2022 11/09/2022 1 1 Reason Comments Follow Up 1 year, ventral inci sional hernia Care Teams (unrecognized sec tion and content) Pulley Man Relationship Specialty Start Date End Date Juancarlos Cuenca DO PCP - General Internal Medicine 10/23/14 Pedro Richardson [address] [place] [phone] Cardiology 09/13/21 Pulley Man Relationship Specialty Start Date End Date Juancarlos Cuenca DO PCP - General Internal Medicine 10/23/14 Pedro Richardson [address] [place] [phone] Cardiology 09/13/21 Pulley Man Relationship Specialty Start Date End Date Juancarlos Cuenca DO PCP - General Internal Medicine 10/23/14 Pedro Richardson [address] [place] [phone] Cardiology 09/13/21 Pulley Man Relationship Specialty Start Date End Date Juancarlos Cuenca DO PCP - General Internal Medicine 10/23/14 Pedro Richardson MD Cardiology 09/13/21 Pulley Man Relationship Specialty Start Date End Date Juancarlos Cuenca DO PCP - General Internal Medicine 10/23/14 Pedro Richardson MD Cardiology 09/13/21 Pulley Man Relationship Specialty Start Date End Date Juancarlos Cuenca DO PCP - General Internal Medicine 10/23/14 Pedro Richardson MD Cardiology 09/13/21 Pulley Man Relationship Specialty Start Date End Date Juancarlos Cuenca DO PCP - General Internal Medicine 10/23/14 Pedro Richardson MD Cardiology 09/13/21 Pulley Man Relationship Specialty Start Date End Date Juancarlos Cuenca DO PCP - General Internal Medicine 10/23/14 Pedro Richardson MD Cardiology 09/13/21 Pulley Man Relationship Specialty Start Date End Date Juancarlos [...] BE BASED ON THE PRIMARY CLINICAL RECORDS. [facility]Bal[facility] provides no warranty or guarantee of the accuracy or completeness of information in this document.
== END 2023-11-12 09:12 | disposition home or self-care (01) ==
LOC: CARD 09:12
PROVIDERS: PCP Internal Medicine
DX: I73.9 Peripheral vascular disease, unspecified (principal); S81.809A Unspecified open wound, unspecified lower leg, initial encounter
CPT/HCPCS: 93923

== ENCOUNTER 2024-03-23 10:36 | Outpatient (OUT) | payer MEDICARE, SELFPAY ==
--- OUTSIDE RECORDS SUMMARY | 2024-03-23 10:58 | XMS_ITS | CCD ---
Author Organization [facility] Care Team Providers Care Dials Supervisor Name Role Phone JUANCARLOS CUENCA Referring Unavailable JUANCARLOS CUENCA Primary Care Unavailable Delonte Webb Admitting Unavailable Delonte Webb Attending Unavailable JUANCARLOS CUENCA Referring Unavailable TY AVALOS Surgeon Unavailable TY AVALOS Admitting Unavailable JUANCARLOS CUENCA Primary Care Unavailable TY AVALOS Attending Unavailable [facility] Procedure Practitioner UnavailJuancarlos Hollins DO Primary Care Provider Pedro Richardsonmed Unavailable [phone] Dylan VANESSA, ab Ahmed Unavailable JUANCARLOS CUENCA Primary Care Physician Juancarlos Cuenca Unavailable Juancarlos Cuenca DO Primary Care Provider Dylan VANESSA, Ahmed Unavailable [phone] JAY GONZALEZ Referring Unavailable JUANCARLOS CUENCA Primary Care Unavailable JAY GONZALEZ Referring Unavailable JUANCARLOS CUENCA Primary Care Unavailable ADAMS ., DR EVAN Mcleod Admitting Unavailable ADAMS ., DR EVAN Mcleod Consulting Unavailable BANG, DR VEGA Primary Care Unavailable ADAMS ., DR EVAN Mcleod Attending Unavailable LAKSHMIPATHY ., RAINA Attending Janki vailable LAKSHMIPATHY ., RAINA Admitting Janki vailable LAKSHMIPATHY ., RAINA Consulting Janki chaoilable BANG, DR VEGA Primary Care Unavailable BANG, DR VEGA Primary Care Unavailable BANG, DR VEGA Attending Unavailable BANG, DR VEGA Admitting Unavailable BANG, DR VEGA Consulting Unavailable ABDIRAHMAN ., MANAV Attending Unavailable BANG, DR VEGA Primary Care Unavailable ABDIRAHMAN ., MANAV Admitting Unavailable RANDY, DR GABY Patel Consulting Unavailable HALEUGENIA ., MANAV Consulting Unavailable BANG, DR VEGA [...] Consulting Janki vailable LAMAS ., DR EVAN Doyleitting Unavailable LAMAS ., DR EVAN Mcleod Consulting [...] Attending Unavailable BALL, DR VEGA Consulting Unavailable BANG, DR VEGA [...] Hanh Chiang Attending Unavailable Nirmala James Unavailable JAY GONZALEZ Attending Unavailable JUANCARLOS CUENCA Primary Care Unavailable ANGELA BINGHAM Attending Unavailable OTILIA, ANGELA Gonzalez Attending Unavailable JOANNA ORTEGA Attending Unavailable Bang, Juancarlos Attending Unavailable Juancarlos Cuenca Primary Care Unavailable Juancarlos Cuenca Admitting Unavailable Allergies Allergy Classification Reported Allergen(s) Allergy Type Date of Onset Reaction(s) Facility (20 sources) Morphine; Translations: [morphine] Drug Allergy Unknown [facility] Repository (1 source) Morphine Drug Allergy 12-08-2023 [facility] Repository Medications Current Medications Medication Drug Class(es) Dates Sig (Normalized) Sig (Original) Accu-Chek Guide - (20 sources) Accu-Chek Guide - USE TO TEST HOME BLOOD SUGAR ONCE DAILY for 90 Active amLODIPine 5 mg oral tablet (12 sources) Dihydropyridine Calcium Channel Ciera Start: 09-11-2023 take 1 tablet by mouth once daily Amlodipine Active 0 .ROUTE .COMPLEX 90 September 11, 2023 8:00am TAKE 1 TABLET BY MOUTH EVERY DAY FOR 30 DAYS Start: 09-07-2023 End: 09-11-2023 take 5 mg by mouth once daily Amlodipine Discontinued 5 MG PO Daily September 07, 2023 1:00am September 11, 2023 8:01am Start: 05-17-2023 take 1 tablet by mansoor th every twenty-four hours amLODIPine Besylate 5 MG 1 tablet Orally Once a day Apr, Active Ascorbic Acid (10 sources) Vitamin C Start: 04-14-2019 Vitamin C Oral , Daily, Refills(s) 0, Prophylaxis Start Date: 04/14/19 Status: Ordered ascorbic acid (V ITAMIN C ORAL) Take by mouth once daily. 0 Active Comment on above: Take by mouth once d aily. aspirin 81 mg delayed release oral tablet (20 sources) Platelet Aggregation Inhibitor, Nonsteroidal Anti-inflammatory Drug Start: 09-07-2023 take 81 mg by mouth once daily Aspirin Active 81 MG PO Daily September 07, 2023 1:00am aspirin 81 mg ca p Take by mouth once daily. 0 Active take 1 tablet by mansoor every twenty-four hours Aspirin 81 MG 1 tablet Orally Once a day Active Comment on above: Take by mouth once d aily. Aspirin 81 mg Tab-EC (1 source) Start: 03-14-2021 take 1 tablet by mouth once daily Aspirin 81 mg Tab-EC 81 mg = 1 tab(s), Oral, Daily, Blood Thinner Start Date: 03/14/21 Status: Ordered baclofen 10 mg oral tablet (1 source) gamma-Aminobutyri c Acid-ergic Agonist Start: 09-16-2023 Baclofen Active 10 MG PO As Directed September 16, 2023 1:00am calcium acetate (1 source) Start: 04-14-2019 calcium acetate Oral, TID, Refills(s) 0, Prophylaxis Start Date: 04/14/19 Status: Ordered carvedilol 12.5 mg oral tablet (20 sources) alpha-Adrenergic Ciera, beta-Adrenergic Ciera Start: 10-12-2023 take 1 tablet by mouth twice daily Carvedilol Active 0 .ROUTE .COMPLEX 180 October 12, 2023 5:18pm TAKE 1 TABLET BY MOUTH TWICE A DAY Start: 09-07-2023 End: 10-12-2023 take 12.5 mg by mouth twice daily Carvedilol Discontinued 12.5 MG PO Twice daily September 07, 2023 1:00am October 12, 2023 5:18pm Start: 10-01-2021 End: 10-31-2021 take 1 tablet [...] 12.5 mg by mout h once daily. clopidogrel 75 mg oral tablet (20 sources) P2Y12 Platelet Inhibitor Start: 04-14-20 take 75 mg by mouth once daily Clopidogrel Active 75 MG PO Daily September 07, 2023 1:00am Comment on above: Take 75 mg by [...] 0, Prophylaxis Start Date: 04/14/19 Status: Ordered glipiZIDE 5 mg oral tablet (20 sources) Sulfonylurea Start: 12-07-19 take 2 tablets by mouth at breakfast, then take 1 tablet by mouth at dinner Glipizide Active 0 .ROUTE .COMPLEX 270 December 07, 2023 1:05pm TAKE 2 TABLETS BY MOUTH 30 MINUTES PRIOR TO BREAKFAST AND 1 TABLET 30 MINUTES PRIOR TO EVENING MEAL Start: 11-17-2023 End: 12-08-2023 take 2 tablets by mouth twice daily Glipizide Discontinued 5 MG PO Twice daily November 17, 2023 4:17pm December 08, 2023 1:45pm Take 2 tabs po BID Start: 11-17-2023 End: 12-07-2023 take 2 tablets by mouth twice daily Glipizide Discontinued 5 MG PO Twice daily November 17, 2023 12:00am December 07, 2023 1:05pm Take 2 tabs po BID Start: 11-04-2023 End: 11-17-2023 take 20 mg by mouth twice daily Glipizide Discontinued 20 MG PO Twice daily November 04, 2023 10:53am November 17, 2023 4:20pm Start: 09-16-2023 End: 11-04-2023 take 10 mg by mouth twice daily Glipizide Discontinued 10 MG PO Twice daily October 12, 2023 10:13am November 04, 2023 10:56am Start: 09-16-2023 End: 09-16-2023 take 10 mg by mouth once daily Glipizide Discontinued 10 MG PO Daily September 16, 2023 12:47pm September 16, 2023 12:54pm Start: 09-16-2023 End: 09-16-2023 take 10 mg by mouth once daily Glipizide Discontinued 10 MG PO Daily September 16, 2023 1:00am September 16, 2023 12:51pm Start: 09-07-2023 End: 09-16-2023 take 1 tablet by mouth twice daily at dinner Glipizide Discontinued 5 MG PO Twice daily September 07, 2023 1:00am September 16, 2023 12:51pm 1 tablet Orally 30 minutes prior to bkfst and evening meal Start: 06-16-2023 take 1 tablet by mansoor th at dinner glipiZIDE 10 MG 1 tablet Orally 30 minutes prior to bkfst and evening meal for 30 days May, Active Start: 03-11-2021 End: 10-12-2023 Glipizide Discontinued 5 MG PO .evening September 16, 2023 12:53pm October 12, 2023 10:13am glipiZIDE 5 MG T hero 2 PO thirty minutes prior to bkfst and 1 PO thirty minutes prior to supper for 90 days Active take 1 tablet by mansoor th at dinner glipiZIDE 5 MG 1 tablet Orally 30 minutes prior to bkfst and evening meal for 30 days Active Comment on above: once daily. hydroCHLOROthiazide 25 mg oral tablet (20 sources) Thiazide Diuretic Start: take 1 tablet by mouth once daily Hydrochlorothiazide Active 0 .ROUTE .COMPLEX 90 October 12, 2023 5:17pm TAKE 1 TABLET BY MOUTH EVERY DAY Start: 09-07-2023 End: 10-12-2023 take 25 mg by mouth once daily Hydrochlorothiazide Discontinued 25 MG PO Daily September 07, 2023 1:00am October 12, 2023 5:18pm Start: 04-14-2019 hydrochlorothi azide Oral, Daily, Refills(s) 0, High blood pressure Start Date: 04/14/19 Status: Ordered take 1 tablet by mansoor th every other day hydroCHLOROthiazide 25 MG 1 tablet Orally qod for 30 days Active Comment on above: Take 25 mg by mouth once daily. lisinopril 30 mg oral tablet (20 sources) Angiotensin Converting Enzyme Inhibitor Start: 09-07-2023 take 30 mg by mouth once daily Lisinopril Active 30 MG PO Daily September 07, 2023 1:00am Start: 04-14-2019 lisinopril Ora l, Daily, Refills(s) 0, High blood pressure Start Date: 04/14/19 Status: Ordered Lisinopril 30 MG TAKE 1 TABLET BY MOUTH EVERY DAY Orally Once a day Active Lisinopril 20 MG TAKE 1 TABLET BY MOUTH EVERY DAY Orally Once a day for 30 days Active take 1 tablet by mansoor th once daily Lisinopril 10 MG TAKE 1 TABLET BY MOUTH EVERY DAY Active take 1 tablet by mansoor th once daily lisinopril (ZESTRIL, PRINIVIL) 5 mg tablet Take 5 mg by mouth once daily. 0 Active Comment on above: Take 5 mg by mouth o nce daily. pantoprazole 40 mg delayed release oral tablet (20 sources) Proton Pump Inhibitor Start: take 1 tablet by mouth once daily at breakfast Pantoprazole Active 40 MG PO Daily September 07, 2023 1:00am TAKE 1 TABLET BY MOUTH DAILY ON EMPTY STOMACH FOLLOWED IN 30 MINUTES BY BREAKFAST Start: 04-14-2019 take 40 mg by mouth once daily pantoprazole 40 mg, Oral, Daily, Refills(s) 0, Control of stomach acid Start Date: 04/14/19 Status: Ordered Comment on above: Take 40 mg by mouth once daily. Super B Complex (1 source) Start: 04-14-2019 Super B Complex Oral, Daily, Refill(s) 0, Prophylaxis Start Date: 04/14/19 Status: Ordered traMADol hydrochloride 50 mg oral tablet (1 source) Opioid Agonist Start: 09-16-2023 Tramadol Active 50 MG PO As Directed September 16, 2023 1:00am Vitamin D3 (1 source) Start: 04-14-2019 Vitamin D3 Oral, Daily, Refills(s) 0, Prophylaxis Start Date: 04/14/19 Status: Ordered Zinc (10 sources) Start: 04-14-2019 Zinc Oral, Daily, Refills(s) 0, Prophylaxis Start Date: 04/14/19 Status: Ordered ZINC ORAL Take b y mouth once daily. 0 Active Comment on above: Take by mouth once d aily. Completed/Discontinued Medications Medication Drug Class(es) Dates Sig (Normalized) Sig (Original) atorvastatin 80 mg oral tablet (20 sources) HMG-CoA Reductase Inhibitor Start: 10-20-2023 End: 11-04-2023 take 1 tablet by mouth once daily in the evening Atorvastatin Discontinued 0 .ROUTE .COMPLEX 90 October 20, 2023 1:01pm November 04, 2023 10:51am TAKE 1 TABLET BY MOUTH EVERY DAY IN THE EVENING Start: 04-14-2019 End: 10-20-2023 take 80 mg by mouth once daily in the evening Atorvastatin Discontinued 80 MG PO Every evening September 07, 2023 1:00am October 20, 2023 1:01pm Comment on above: Take 80 mg by mouth once daily. CHOLECALCIFEROL, VITAMIN D3, ORAL (9 sources) CHOLECALCIFEROL, VITAMIN D3, ORAL Take by mouth once daily. 0 Active Comment on above: Take by mouth once d aily. CPAP (9 sources) CPAP daily at be dtima. 0 Active Comment on above: daily at bedtime. docosahexaenoic acid/epa (FISH OIL ORAL) (9 sources) docosahexaenoic acid/epa (FISH OIL ORAL) Take by mouth once daily. 0 Active Comment on above: Take by mouth once d aily. gabapentin 100 mg oral capsule (20 sources) Anti-epileptic Agent Start: End: take 100 mg by mouth once daily Gabapentin Discontinued 100 MG PO Daily September 07, 2023 1:00am November 04, 2023 10:53am take 1 capsule by mo [facility] every twenty-four hours Gabapentin 100 MG 1 capsule Orally Once a day Active loratadine 10 mg oral tablet (20 sources) Start: 04-14-2019 Claritin Oral, Daily, Refills(s) 0, Allergy symptoms Start Date: 04/14/19 Status: Ordered Start: 02-02-2017 End: 11-04-2023 take 10 mg by mouth once daily Loratadine Discontinued 10 MG PO Daily September 16, 2023 12:14pm November 04, 2023 10:54am Comment on above: Take 10 mg by mouth. Magnesium (9 sources) MAGNESIUM ORAL T hero by mouth once daily. 0 Active Comment on above: Take by mouth once d aily. meclizine hydrochloride 25 mg oral tablet (16 sources) Antiemetic Start: 4 End: 4 take 25 mg by mouth every twelve hours Meclizine Discontinued 25 MG PO Every 12 hours September 16, 2023 12:16pm November 04, 2023 10:54am take 1 tablet by [facility] every twelve hours Meclizine HCl 25 MG 1 tablet as needed Orally every 12 hrs Active metFORMIN hydrochloride 100 mg/ml oral solution (20 sources) Biguanide Start: 09-07-2023 End: 09-16-2023 take 1 tablet by mouth twice daily Metformin Discontinued 500 MG PO Twice daily September 07, 2023 1:00am September 16, 2023 12:15pm Take 1 tablet with a meal orally twice a day Start: 04-14-2019 metformin 1,00 0 mg, Oral, Refills(s) 0, Blood glucose Start Date: 04/14/19 Status: Ordered take 1 tablet by mansoor th every twelve hours metFORMIN HCl 500 MG 1 tablet with a meal Orally twice a day Not-Taking take 1 tablet by mansoor th every twenty-four hours metFORMIN HCl 1000 MG 1 tablet with a meal Orally Once a day Active Comment on above: Take 1,000 mg by mansoor th twice daily with meals. MULTI-VITAMIN ORAL (9 sources) MULTI-VITAMIN OR AL Take by mouth once daily. 0 Active Comment on above: Take by mouth once d aily. ondansetron 4 mg disintegrating oral tablet (16 sources) Serotonin-3 Receptor Antagonist Start: 09-07-2023 End: 11-04-2023 Ondansetron Discontinued 4 MG TRANSLINGU Daily September 16, 2023 12:16pm November 04, 2023 10:55am take 1 tablet by mansoor every twenty-four hours Ondansetron 4 MG 1 tablet on the tongue and allow to dissolve Orally Once a day Active sertraline 100 mg oral tablet (16 sources) Serotonin Reuptake Inhibitor Start: 09-02-2021 take 1 tablet by mouth once daily [...] on above: Take 1 capsule by mo [facility] once daily. Vitamin B Complex (9 sources) [...] anxiety disorder] 03-11-2021 Chronic Biliary tract disease (1 source) Cholangiectasis; Translations: [Other specified diseases of biliary tract] 10-19-2023 Chronic Biliary tract disease (20 sources) Disorder of gallbladder; Translations: [Other specified diseases of gallbladder] Episodic Conditions associated with dizziness or vertigo (20 sources) Benign paroxysmal positional vertigo; Translations: [Benign paroxysmal vertigo, bilateral] 03-13-2021 Episodic Coronary atherosclerosis and other heart disease (20 sources) Coronary arteriosclerosis; Translations: [Atherosclerotic heart disease of [place] coronary artery without angina pectoris] Onset: 05-19-2022 [...] aftercare (9 sources) 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; Translations: [jail (current) use of antithrombotics/antip latelets] 09-13-2021 Episodic [...] Benign neoplasm of colon, unspecified Episodic Other and unspecified benign neoplasm (1 source) Familial multiple polyposis syndrome; Translations: [Familial multiple polyposis syndrome] 09-07-2023 Episodic Other liver diseases (1 source) Elevated liver enzymes level; Translations: [Abnormal levels of other serum enzymes] 10-19-2023 Episodic Other nervous system disorders (1 source) [...] mass index (BMI) 39.0-39.9, adult Chronic Other nutritional; endocrine; and metabolic disorders (1 source) Obesity caused by energy imbalance; Translations: [Morbid (severe) obesity due to excess calories] 09-07-2023 Chronic Other nutritional; endocrine; and metabolic disorders (1 source) Obesity; Translations: [Obesity, unspecified] 10-01-2023 Chronic Other nutritional; endocrine; and metabolic disorders (1 source) Obesity, unspecified; Translations: [Obesity, unspecified] 11-04-2023 Chronic Other screening for suspected conditions (not mental disorders or infectious disease) (20 sources) Imaging of biliary tract abnormal; Translations: [Prerenal azotemia] 03-14-2021 Episodic Other skin disorders (20 sources) Vesicular eczema of hands and/or feet; Translations: [Dyshidrosis [pompholyx]] Episodic Peripheral and visceral atherosclerosis (19 sources) Atherosclerosis of [place] arteries of extremities with rest pain, right leg; Translations: [Peripheral vascular disease] Onset: 05-19-2022 Chronic Residual codes; unclassified (10 sources) Sleep apnea; Translations: [Sleep apnea, unspecified] 09-13-2021 Chronic Residual codes; unclassified (20 sources) Obstructive sleep apnea syndrome; Translations: [Obstructive sleep apnea (adult) (pediatric)] 09-07-2023 Chronic Residual codes; unclassified (6 sources) Obstructive sleep apnea (adult) (pediatric); Translations: [Obstructive sleep apnea (adult)(pediatric)] Chronic Residual codes; unclassified (20 sources) History [...] Other residential (current) drug therapy; Translations: [[facility]] Onset: 09-17-2022 Episodic Other and unspecified benign neoplasm (12 sources) Polyp of colon; Translations: [Polyp of colon] Onset: 06-07-2021 06-07-2021 Episodic Unclassified (1 source) LOW BACK PAIN, UNSPECIFIED; Translations: [LOW BACK PAIN, UNSPECIFIED] Onset: 04-24-2022 Results Test Name Value Interpretation Reference Range Facility [facility] 10-27-2023 [facility] Telephone ([facility]) LIZZY YEE ([id number]) 1945 M Date Time Provider Department 10/27/23 JAY GONZALEZ [facility] During your visit today, we recorded the [...] Patient and or can be reached at [phone]. Thank you. Efrain Loza RN 10/28/2023 8:30 [...] Encounter Status:Closed by EFRAIN ZAMARRIPA on 10/28/23 [facility] CNOVon 10-15-2023 CNOV Office Visit ([facility] ) LIZZY YEE ([id number]) 1945 M Date Time Provider Department 10/15/23 1:00 PM JAY GONZALEZ [facility] During your visit today, we recorded the following information about you: Temperature Pulse Blood pressure 97.3 degrees 53/minute 127/65 Jay Gonzalez MD 10/15/2023 1:41 PM Signed [facility] Abdominal Core Health - Follow Up [...] Gonzalez MD 10/15/23, 1:38 PM General Surgery [facility] Medical Decision Making: Problems: Low: Stable chronic illness Risk: Low: Low risk from testing/treatment Medical Decision Making Level: 3 - Low Destiny Zapata OCCA 10/15/2023 1:04 PM Signed What is the [...] HLD (hyperlipidemi (more content not included)... Normal [facility] Cholesterol in LDL Calc [Mas s/Vol]on 10-09-2023 Cholesterol in LDL [Mass/Vol] 46.6 mg/dL [facility] Comment on above: <100 mg/dl [id number] 0-129 mg/dl NEAR OR ABOVE [id number] mg/dl BORDERLINE [id number] mg/dl HIGH>190 mg/dl VERY HIGH Cholesterol in VLDL Calc [Ma ss/Vol]on 10-09-2023 Cholesterol in VLDL [Mass/Vol] 14.4 mg/dL [facility] Estimated glomerular filtrat ion rate (GFR) non- Americanon 10-09-2023 GFR/1.73 sq M.predicted among non-blacks MDRD (S/P/Bld) [Vol rate/Area] 54 mL/min/{1.73_m2} >=60 [facility] Globulin Calc (S) [Mass/Vol] on 10-09-2023 Globulin (S) [Mass/Vol] 3.9 g/dL [facility] Glucose mean value [Mass/vol ume] in Blood Estimated from glycated hemoglobinon 10-09-2023 Average glucose Estimated from glycated hemoglobin (Bld) [Mass/Vol] 186 mg/dL [facility] Laboratory - Chemistry and C hemistry - challengeon 10-09-2023 Albumin [Mass/Vol] 3.4 g/dL 3.4-5.0 [facility] ALP [Catalytic activity/Vol] 210 U/L 46-116 [facility] ALT [Catalytic activity/Vol] 236 U/L 16-63 [facility] AST [Catalytic activity/Vol] 169 U/L 15-37 [facility] Bilirubin [Mass/Vol] 0.8 mg/dL 0.2-1.0 [facility] Calcium [Mass/Vol] 9.1 mg/dL 8.5-10.1 [facility] Chloride [Moles/Vol] 101 mmol/L 98-107 [facility] Cholesterol [Mass/Vol] 107 mg/dL <=200 [facility] Cholesterol in HDL [Mass/Vol] 46 mg/dL 40-60 [facility] Comment on above: > or =60 mg/dl - LOW CARDIOVASCULAR RISK<40 mg/dl - HIGH CARDIOVASCULAR RISK CO2 [Moles/Vol] 28.4 mmol/L 21.0-32.0 [facility] Creatinine [Mass/Vol] 1.29 mg/dL 0.70-1.30 [facility] GFR/1.73 sq M.predicted MDRD (S/P/Bld) [Vol rate/Area] mL/min/{1.73_m2} >=60 [facility] Glucose [Mass/Vol] 100 mg/dL 74-106 [facility] Potassium [Moles/Vol] 4.1 mmol/L 3.5-5.1 [facility] Protein [Mass/Vol] 7.3 g/dL 6.4-8.2 [facility] Sodium [Moles/Vol] 140 mmol/L 136-145 [facility] Triglyceride [Mass/Vol] 72 mg/dL <=150 [facility] Urea nitrogen [Mass/Vol] 23.0 mg/dL 7.0-18.0 [facility] Urea nitrogen/Creatinine [Mass ratio] 17.8 mg/mg [facility] Laboratory - Hematology and Cell countson 10-09-2023 HbA1c (Bld) [Mass fraction] 8.1 % 4.5-6.2 [facility] Comment on above: ADA RECOMMENDED LIMI T 4.0 - 6.0ADA THERAPEUTIC TARGET < 7.0ACTION SUGGESTED> 7.0 Microalbumin [Mass/volume] i n Urineon 10-09-2023 Albumin DL <= 20 mg/L (U) [Mass/Vol] mg/dL <=30.0 [facility] No Panel Informationon 10-08 Prostate Specific Antigen Screen 0.27 ng/mL <=4.00 [facility] Serum or plasma albumin/glob ulin mass ratioon 10-09-2023 Albumin/Globulin [Mass ratio] 0.9 {ratio} [facility] Serum or plasma anion gap de terminationon 10-09-2023 Anion gap [Moles/Vol] 14.7 mmol/L [facility] Serum or plasma total choles terol/high density lipoprotein (HDL) cholesterol mass venu 10-09-2023 Cholesterol.total/Cho lesterol in HDL [Mass ratio] 2.3 {ratio} [facility] Comment on above: 3.3 - 4.4 LOW RISK4. 4 - 7.1 AVERAGE RISK7.1 - 11.0 MODERATE RISK>11.0 HIGH RISK Office Visiton 04-22-2023 Follow-up visit [id number] Vu Yee 1945 M Date Provider Department Center 04/22/2023 [facility] Family History Problem Relation Age of Onset Coronary artery disease Mother Coronary artery disease Brother Family Status - Relation Status Age at Mother Brother Level of Service:17676 [facility] OFFICE/OUTPATIENT ESTABLISHED LOW MDM 20-29 MIN Normal [facility] Outside Colonoscopyon 2022 Outside Colonoscopy [id number] 0CD:127 Normal [facility] Reminderson 12-18-2022 Reminders - From: Amy Menon LPN To: GSN - Clinical; Sent: 12/18/2022 12:06:16 EDT Show up: 11/16/2025 07:00:00 EDT Subject: colonoscopy recall Due Date/Time: 12/17/2025 07:00:00 EDT Reminder/Recall Patient due for surveillance colonoscopy 12/17/2025. Normal [facility] POINT OF CARE GLUCOSEon 11-19 Glucose [Mass/Vol] 176 mg/dL Critically high 74-106 [facility] Comment on above: Performed By: #### P OCGLUC #### [facility] [address] [address] [address] Rojelio Kingsley POINT OF CARE GLUCOSEon 11-19 Glucose [Mass/Vol] 157 mg/dL Critically high 74-106 [facility] Comment on above: Performed By: #### P OCGLUC #### [facility] [address] [address] [address] Rojelio Kingsley Consent for Procedure/Surger yon 12-03-2022 Consent for Procedure/Surgery [id number] 0CD:127 Normal [facility] Physician Referralon 023 Physician Referral [id number] 0CD:127 Normal [facility] General Surgery Office/Clini c Noteon 12-02-2022 [...] anastomosis and ventral hernia repair 09/2021 at [facility], they recommend yearly surveillance sigmoidoscopies; [...] 1 tab(s), (more content not included)... Normal [facility] Comment on above: Result Comment: Elec tronically Signed By: PELON VANESSA, Nya Patel\.marion\Date and Time Signed: 12/02/22 11:37 EDT POINT OF CARE GLUCOSEon 04-2 Glucose [Mass/Vol] 121 mg/dL Critically high 74-106 [facility] Comment on above: Performed By: #### P OCGLUC #### [facility] [address] [address] [address] [facility] HNO ID: [id number] Author: RT Marisa(R) Service: Radiology Author Type: [...] Romo RT(R) October 11, 2022 10:29 AM [facility] ABD/PEL WO IVCONon 2022 CT ABD/PEL [...] site. Lower thorax: Lower lungs are clear. Glass Loading Equipment Tender (topogram) images: Unremarkable. IMPRESSION: Midline fat-containing upper abdominal hernia. Regulatory Internship: DANIEL Transcribe Date/Time: Oct 13 2022 7:57A Dictated by : YANICK RIVAS MD This examination was interpreted and the report reviewed and electronically signed by: YANICK RIVAS MD on Oct 13 2022 8:06AM EST [id number] Normal [facility] Consent for Procedure/Surger yon 09-17-2022 Consent for Procedure/Surgery [id number] 0CD:127 Normal [facility] RAD - Ultrasound Reporton RAD - Ultrasound Report [id number] 0CD:127 Normal [facility] Ambulatory Visit Summaryon 0 09-16-2022 [...] longer receiving treatment for. Hyperlipidemia Normal [facility] Ambulatory Visit Summary LIZZY YEE :1945 [...] longer receiving treatment for. Hyperlipidemia Normal [facility] General Surgery Office/Clini c Noteon 09-16-2022 [...] anastomosis and ventral hernia repair 09/2021 at [facility]; requires yearly flexible sigmoidoscopy for [...] Oral, Nathalie (more content not included)... Normal [facility] Comment on above: Result Comment: Elec tronically Signed By: PELON VANESSA, Nya Nicholson\Date and Time Signed: 09/16/22 11:17 EST Alanine Aminotransferaseon 0 - ALT [Catalytic activity/Vol] 30 U/L Normal 16-63 [employer] Other Comment on above: Performed By: #### B MP, ALT, LIPID #### [facility] [address] [address] [address] Rojelio Kingsley Basic Metabolic Panelon - Calcium [Mass/Vol] 9.0652783 mg/dL 8.5-10 .1 mg/dL [employer] Other CO2 [Moles/Vol] 25.30240441 mmol/L 21.0-3 2.0 mmol/L [employer] Other Creatinine [Mass/Vol] 1.88762603 mg/dL Critically high 0.70-1.30 mg/dL [employer] Other Potassium [Moles/Vol] 4.49533527 mmol/L 3 .5-5.1 mmol/L [employer] Other Urea nitrogen [Mass/Vol] 16.4423356 mg/dL 7.0-18.0 mg/dL [employer] Other Basic Metabolic Panel see note Nor [employer] Other Basic Metabolic Panel 141 mmol/L 136-14 5 mmol/L [employer] Other Basic Metabolic Panel 134 mg/dL Critically high 74-106 mg /dL [employer] Other Basic Metabolic Panel 51 mL/min/1.73m2 Critically low >=60 mL/min/1.73m 2 [employer] Other Basic Metabolic Panel >60 mL/min/1.73m2 > =60 mL/min/1.73m 2 [employer] Other Anion gap [Moles/Vol] 15.2 mmol/L [facility] Other Comment on above: Performed By: #### B MP, ALT, LIPID #### [facility] [address] [place] [address] Dr. Rojelio Kingsley Chloride [Moles/Vol] 105 mmol/L Normal 98-107 [facility] [employer] Other Comment on above: Performed By: #### B MP, ALT, LIPID #### [facility] [address] [place] [address] Dr. Rojelio Kingsley Urea nitrogen/Creatinine [Mass ratio] 11.8 mg/mg Normal [facility] [employer] Other Comment on above: Performed By: #### B MP, ALT, LIPID #### [facility] [address] [place] [address] Dr. Rojelio Kingsley CBC AUTO DIFFon 09-12-2022 BASO # 0.0 103/ul Normal 0.0-0.1 [facility] Comment on above: Performed By: #### C BC #### [facility] [address] [place] [address] Dr. Rojelio Kingsley Basophils/100 WBC (Bld) 0.4 % Normal 0.2-2.0 [facility] Comment on above: Performed By: #### C BC #### [facility] [address] [place] [address] Dr. Rojelio Kingsley EO # 0.3 103/ul Normal 0.0-0.7 [facility] Comment on above: Performed By: #### C BC #### [facility] [address] [place] [address] Dr. Rojelio Kingsley Eosinophils/100 WBC (Bld) 3.6 % Normal 0.9-7.0 [facility] Comment on above: Performed By: #### C BC #### [facility] [address] [place] [address] Dr. Rojelio Kingsley Erythrocyte distribution width (RBC) [Ratio] 14.1 % Normal 11.0-15.0 [facility] Comment on above: Performed By: #### C BC #### [facility] [address] [place] [address] Dr. Rojelio Kingsley Hematocrit (Bld) [Volume fraction] 40.1 % Critically low 42.0-54.0 [facility] Comment on above: Performed By: #### C BC #### [facility] [address] [place] [address] Dr. Rojelio Kingsley Hemoglobin (Bld) [Mass/Vol] 13.4 g/dL Critically low 14.0-18.0 [facility] Comment on above: Performed By: #### C BC #### [facility] [address] [place] [address] Dr. Rojelio Kingsley IG # 0.02 10e3/ul Normal 0.00-0.03 [facility] Comment on above: Performed By: #### C BC #### [facility] [address] [place] [address] Dr. Rojelio Kingsley IG % 0.2 % Normal 0.0-0.5 [facility] Comment on above: Performed By: #### C BC #### [facility] [address] [place] [address] Dr. Rojelio Kingsley LYMPH # 1.8 103/ul Normal 1.2-3.8 [facility] Comment on above: Performed By: #### C BC #### [facility] [address] [place] [address] Dr. Rojelio Kingsley Lymphocytes/100 WBC (Bld) 21.9 % Normal 20.5-60.0 [facility] Comment on above: Performed By: #### C BC #### [facility] [address] [place] [address] Dr. Rojelio Kingsley MANUAL DIFF REQ NO Normal [facility] Comment on above: Performed By: #### C BC #### [facility] [address] [place] [address] Dr. Rojelio Kingsley MCH (RBC) [Entitic mass] 30.6 pg Normal 25.9-34.0 [facility] Comment on above: Performed By: #### C BC #### [facility] [address] [place] [address] Dr. Rojelio Kingsley MCHC (RBC) [Mass/Vol] 33.4 g/dL Normal 29.9-35.2 [facility] Comment on above: Performed By: #### C BC #### [facility] [address] [place] [address] Dr. Rojelio Kingsley MCV (RBC) [Entitic vol] 91.6 fL Normal 80.0-94.0 [facility] Comment on above: Performed By: #### C BC #### [facility] [address] [place] [address] Dr. Rojelio Kingsley MONO # 0.8 103/ul Normal 0.3-0.8 [facility] Comment on above: Performed By: #### C BC #### [facility] [address] [place] [address] Dr. Rojelio Kingsley Monocytes/100 WBC (Bld) 9.3 % Normal 1.7-12.0 [facility] Comment on above: Performed By: #### C BC #### [facility] [address] [place] [address] Dr. Rojelio Kingsley NEUT # 5.4 103/ul Normal 1.4-6.5 [facility] Comment on above: Performed By: #### C BC #### [facility] [address] [place] [address] Dr. Rojelio Kingsley Neutrophils/100 WBC (Bld) 64.6 % Normal 43.0-75.0 [facility] Comment on above: Performed By: #### C BC #### [facility] [address] [place] [address] Dr. Rojelio Kingsley Platelet mean volume (Bld) [Entitic vol] 10.3 fL Normal 9.5-13.5 [facility] Comment on above: Performed By: #### C BC #### [facility] [address] [place] [address] Dr. Rojelio Kingsley PLT 214 103/ul Normal 150-450 [facility] Comment on above: Performed By: #### C BC #### [facility] [address] [place] [address] Dr. Rojelio Kingsley RBC 4.38 106/ul Critically low 4.70-6.10 [facility] Comment on above: Performed By: #### C BC #### [facility] [address] [address] [address] Rojelio Kingsley WBC 8.4 103/ul Normal 4.0-11.0 [facility] Comment on above: Performed By: #### C BC #### [facility] [address] [address] [address] Rojelio Kingsley GLYCOHEMOGLOBIN A1Con 2022 ADA RECOMMENDATION SEE BELOW Normal [facility] Comment on above: Result Comment: ADA RECOMMENDED LIMIT 4.0 - 6.0 ADA THERAPEUTIC TARGET < 7.0 ACTION SUGGESTED > 7.0 Performed By: #### P OCGLUC #### [facility] [address] [place] [address] Dr. Rojelio Kingsley Glucose [Mass/Vol] 169 mg/dL Normal [facility] Comment on above: Performed By: #### P OCGLUC #### [facility] [address] [address] [address] Rojelio Kingsley HbA1c (Bld) [Mass fraction] 7.5 % Critically high 4.5-6.2 [facility] Comment on above: Performed By: #### P OCGLUC #### [facility] [address] [place] [address] Dr. Rojelio Kingsley LIPID PROFILEon 09-12-2022 CHOL-HDL RATIO NORM SEE BELOW Normal [facility] Comment on above: Result Comment: 3.3 - 4.4 LOW RISK 4.4 - 7.1 AVERAGE RISK 7.1 - 11.0 MODERATE RISK >11.0 HIGH RISK Performed By: #### B MP, ALT, LIPID #### [facility] [address] [address] [address] Rojelio Kingsley Cholesterol in LDL [Mass/Vol] 31.2 mg/dL Normal [facility] Comment on above: Performed By: #### B MP, ALT, LIPID #### [facility] [address] [place] [address] Dr. Rojelio Kingsley HDL NORMAL > or = 60 mg/dl - LO W CARDIOVASCULAR RISK <40 mg/dl - HIGH CARDIOVASCULAR RISK Normal [facility] Comment on above: Performed By: #### B MP, ALT, LIPID #### [facility] [address] [place], [place] [address] Dr. Rojelio Kingsley LDL CALC NORMAL SEE BELOW Normal [facility] Comment on above: Result Comment: <100 mg/dl OPTIMAL 100 - 129 mg/dl NEAR OR ABOVE OPTIMAL 130 - 159 mg/dl BORDERLINE HIGH 160 - 189 mg/dl HIGH >190 mg/dl VERY HIGH Performed By: #### B MP, ALT, LIPID #### [facility] [address] [place], [place] [address] Dr. Rojelio Kingsley VLDL CALC 40.8 mg/dL Normal [facility] Comment on above: Performed By: #### B MP, ALT, LIPID #### [facility] [address] [place], [place] [address] Dr. Rojelio Kingsley Lipid Panelon 09-12-2022 Lipid Panel > or = 60 mg/dl - LO W CARDIOVASCULAR RISK <40 mg/dl - HIGH CARDIOVASCULAR RISK [employer] Other Lipid Panel SEE BELOW [employer] Other Lipid Panel 31.2 mg/dL [employer] Other Lipid Panel 40.8 mg/dL [employer] Other Cholesterol [Mass/Vol] 115 mg/dL Normal <=200 [employer] Other Comment on above: Performed By: #### B MP, ALT, LIPID #### [facility] [address] [place], [place] [address] Dr. Rojelio Kingsley Cholesterol in HDL [Mass/Vol] 43 mg/dL Normal 40-60 [employer] Other Comment on above: Performed By: #### B MP, ALT, LIPID #### [facility] [address] [place], [place] [address] Dr. Rojelio Kingsley Cholesterol.total/Cho lesterol in HDL [Mass ratio] 2.7 {ratio} Normal [employer] Other Comment on above: Performed By: #### B MP, ALT, LIPID #### [facility] [address] [place] [address] Dr. Rojelio Kingsley Triglyceride [Mass/Vol] 204 mg/dL Critically high <=150 [facility] [employer] Other Comment on above: Performed By: #### B MP, ALT, LIPID #### [facility] [address] [place] [address] Dr. Rojelio Kingsley MICROALBUMIN, RAND URon 02- mALB 2.1 mg/L Normal <=30.0 [facility] Comment on above: Performed By: #### M ALBR #### [facility] [address] [place] [address] Dr. Rojelio Kingsley PROF CHEM 8 (BAS METB)on Calcium [Mass/Vol] 9.6 mg/dL Normal 8.5-10.1 [facility] Comment on above: Performed By: #### B MP, ALT, LIPID #### [facility] [address] [place] [address] Dr. Rojelio Kingsley CO2 [Moles/Vol] 25.1 mmol/L Normal 21.0-32.0 [facility] Comment on above: Performed By: #### B MP, ALT, LIPID #### [facility] [address] [place] [address] Dr. Rojelio Kingsley Creatinine [Mass/Vol] 1.36 mg/dL Critically high 0.70-1.30 [facility] Comment on above: Performed By: #### B MP, ALT, LIPID #### [facility] [address] [place] [address] Dr. Rojelio Kingsley EGFR-AF TURKISH >60 Normal >=60 [facility] Comment on above: Performed By: #### B MP, ALT, LIPID #### [facility] [address] [place] [address] Dr. Rojelio Kingsley EGFR-NON AF TURKISH 51 mL/min/1.73m2 Critically low >=60 [facility] Comment on above: Performed By: #### B MP, ALT, LIPID #### [facility] [address] [address] [address] Rojelio Kingsley Glucose [Mass/Vol] 134 mg/dL Critically high 74-106 [facility] Comment on above: Performed By: #### B MP, ALT, LIPID #### [facility] [address] [address] [address] Rojelio Kingsley Potassium [Moles/Vol] 4.3 mmol/L Normal 3.5-5.1 [facility] Comment on above: Performed By: #### B MP, ALT, LIPID #### [facility] [address] [address] [address] Rojelio Kingsley Sodium [Moles/Vol] 141 mmol/L Normal 136-145 [facility] Comment on above: Performed By: #### B MP, ALT, LIPID #### [facility] [address] [address] [address] Rojelio Kingsley Urea nitrogen [Mass/Vol] 16.0 mg/dL Normal 7.0-18.0 [facility] Comment on above: Performed By: #### B MP, ALT, LIPID #### [facility] [address] [address] [address] Rojelio Kingsley US CAROTID ART BILon [...] GABY PADILLA Date: 2022-09-12 15:22 Normal [facility] US CAROTID ART ZHENG [employer] Other Orders Onlyon 07-24-2022 Orders Only [id number] Vu Yee 1945 M Date Provider Department Center 07/24/2022 ZOFIA MARTINO [facility] Family History Problem Relation Age of Onset Coronary artery disease Mother Coronary artery disease Brother Family Status - Relation Status Age at Mother Brother Normal [facility] POINT OF CARE GLUCOSEon 06-19 Glucose [Mass/Vol] 106 mg/dL Normal 74-106 [facility] Comment on above: Performed By: #### P OCGLUC #### [facility] [address] [place], [place] [address] Dr. Rojelio Kingsley Covid-19 PCR ([facility])on SARS-CoV-2 (COVID-19) RNA MITCHELL+probe Ql (Unsp spec) Not detected Normal NOT DETECTED [facility] Comment on above: Result Comment: This test is not yet approved or cleared by the [place] FDA. When there are no FDA-approved or cleared tests available, and other criteria are met, FDA can make tests available under an emergency access mechanism called an Emergency Use Authorization (EUA). The EUA for this test is supported by the [place] of Health and Human Service's (HHS's) declaration [...] SARS-CoV-2. Performed By: #### P OCGLUC #### [facility] [address] [place], [place] [address] Dr. Rojelio Kingsley 29on 05-19-2022 29 Addended by: MARINO MOE on: 05/19/2022 03:14 PM Modules accepted: Level of Service Normal [facility] Follow-Upon 05-19-2022 Follow-Up [id number] Vu Yee 1945 M Date Provider Department Center 05/19/2022 MARINO GRAVES Family History Problem Relation Age of Onset Coronary artery disease Mother Coronary artery disease Brother Family Status - Relation Status Age at Mother Brother Level of Service:01125 [facility] OFFICE/OUTPATIENT ESTABLISHED LOW MDM 20-29 MIN Reason for Visit and Comments: Coronary Artery Disease [187] Hypertension [403259] Peripheral Vascular Disease [458] Normal [facility] POINT OF CARE GLUCOSEon 10-2 -2021 Glucose [Mass/Vol] 129 mg/dL Critically high 74-106 [facility] Comment on above: Performed By: #### P OCGLUC #### [facility] [address] [address] [address] Rojelio Kingsley POINT OF CARE GLUCOSEon 09--2021 Glucose [Mass/Vol] 116 mg/dL Critically high 74-106 [facility] Comment on above: Performed By: #### P OCGLUC #### [facility] [address] [address] [address] Rojelio Kingsley XR LSPINE 2_3 VIEWSon [...] by: GABY PADILLA Date: 2022-03-05 13:06 Normal [facility] CBC AUTO DIFFon 02-22-2022 BASO # 0.0 103/ul Normal 0.0-0.1 [facility] Comment on above: Performed By: #### P OCGLUC #### [facility] [address] [address] [address] Rojelio Kingsley Basophils/100 WBC (Bld) 0.4 % Normal 0.2-2.0 [facility] Comment on above: Performed By: #### P OCGLUC #### [facility] [address] [address] [address] Rojelio Kingsley EO # 0.3 103/ul Normal 0.0-0.7 [facility] Comment on above: Performed By: #### P OCGLUC #### [facility] [address] [address] [address] Rojelio Kingsley Eosinophils/100 WBC (Bld) 3.0 % Normal 0.9-7.0 [facility] Comment on above: Performed By: #### P OCGLUC #### [facility] [address] [address] [address] Rojelio Kingsley Erythrocyte distribution width (RBC) [Ratio] 14.4 % Normal 11.0-15.0 [facility] Comment on above: Performed By: #### P OCGLUC #### [facility] [address] [place] [address] Dr. Rojelio Kingsley Hematocrit (Bld) [Volume fraction] 37.1 % Critically low 42.0-54.0 [facility] Comment on above: Performed By: #### P OCGLUC #### [facility] [address] [place] [address] Dr. Rojelio Kingsley Hemoglobin (Bld) [Mass/Vol] 12.2 g/dL Critically low 14.0-18.0 [facility] Comment on above: Performed By: #### P OCGLUC #### [facility] [address] [address] [address] Rojelio Kingsley IG # 0.03 10e3/ul Normal 0.00-0.03 [facility] Comment on above: Performed By: #### P OCGLUC #### [facility] [address] [address] [address] Rojelio Kingsley IG % 0.4 % Normal 0.0-0.5 [facility] Comment on above: Performed By: #### P OCGLUC #### [facility] [address] [place] [address] Dr. Rojelio Kingsley LYMPH # 1.8 103/ul Normal 1.2-3.8 [facility] Comment on above: Performed By: #### P OCGLUC #### [facility] [address] [place] [address] Dr. Rojelio Kingsley Lymphocytes/100 WBC (Bld) 21.6 % Normal 20.5-60.0 [facility] Comment on above: Performed By: #### P OCGLUC #### [facility] [address] [place] [address] Dr. Rojelio Kingsley MANUAL DIFF REQ NO Normal [facility] Comment on above: Performed By: #### P OCGLUC #### [facility] [address] [address] [address] Rojelio Kingsley MCH (RBC) [Entitic mass] 30.0 pg Normal 25.9-34.0 [facility] Comment on above: Performed By: #### P OCGLUC #### [facility] [address] [place] [address] Dr. Rojelio Kingsley MCHC (RBC) [Mass/Vol] 32.9 g/dL Normal 29.9-35.2 [facility] Comment on above: Performed By: #### P OCGLUC #### [facility] [address] [place] [address] Dr. Rojelio Kingsley MCV (RBC) [Entitic vol] 91.4 fL Normal 80.0-94.0 [facility] Comment on above: Performed By: #### P OCGLUC #### [facility] [address] [place] [address] Dr. Rojelio Kingsley MONO # 0.7 103/ul Normal 0.3-0.8 [facility] Comment on above: Performed By: #### P OCGLUC #### [facility] [address] [address] [address] Rojelio Kingsley Monocytes/100 WBC (Bld) 8.4 % Normal 1.7-12.0 [facility] Comment on above: Performed By: #### P OCGLUC #### [facility] [address] [place] [address] Dr. Rojelio Kingsley NEUT # 5.5 103/ul Normal 1.4-6.5 [facility] Comment on above: Performed By: #### P OCGLUC #### [facility] [address] [address] [address] Rojelio Kingsley Neutrophils/100 WBC (Bld) 66.2 % Normal 43.0-75.0 [facility] Comment on above: Performed By: #### P OCGLUC #### [facility] [address] [place] [address] Dr. Rojelio Kingsley Platelet mean volume (Bld) [Entitic vol] 10.3 fL Normal 9.5-13.5 [facility] Comment on above: Performed By: #### P OCGLUC #### [facility] [address] [place] [address] Dr. Rojelio Kingsley PLT 202 103/ul Normal 150-450 [facility] Comment on above: Performed By: #### P OCGLUC #### [facility] [address] [place] [address] Dr. Rojelio Kingsley RBC 4.06 106/ul Critically low 4.70-6.10 [facility] Comment on above: Performed By: #### P OCGLUC #### [facility] [address] [place] [address] Dr. Rojelio Kingsley WBC 8.3 103/ul Normal 4.0-11.0 [facility] Comment on above: Performed By: #### P OCGLUC #### [facility] [address] [place] [address] Dr. Rojelio Kingsley GLYCOHEMOGLOBIN A1Con 2021 ADA RECOMMENDATION SEE BELOW Normal [facility] Comment on above: Result Comment: ADA RECOMMENDED LIMIT 4.0 - 6.0 ADA THERAPEUTIC TARGET < 7.0 ACTION SUGGESTED > 7.0 Performed By: #### A 1C #### [facility] [address] [address] [address] Rojelio Kingsley Glucose [Mass/Vol] 151 mg/dL Normal [facility] Comment on above: Performed By: #### A 1C #### [facility] [address] [address] [address] Rojelio Kingsley HbA1c (Bld) [Mass fraction] 6.9 % Critically high 4.5-6.2 [facility] Comment on above: Performed By: #### A 1C #### [facility] [address] [address] [address] Rojelio Kingsley Consultation Noteon 02-19-20 22 Consultation Note [id number] 0CD:127 Normal [facility] KNEE RIGHT 3 [facility] 1 KNEE RIGHT 3 S [facility] Department of Radiology [address] [place] [id number] ======== Patient Name: LIZZY YEE : 1945 Sex: M Age: Race: White Pt. Location: Patient Status: Ordered Date: 01/09/2021 1:10:00 PM Completed Date: 01/09/2021 01:11 PM Requesting Provider: TY AVALOS Attending Provider: Report Copy To: Signs & Symptoms: Z96.659 Presence of unspecified artificial knee joint I10 History: Comments: Exam: KNEE RIGHT 3 VWS ======== KNEE RIGHT 3 VWS HISTORY: Knee replacement, follow-up. COMPARISON: 12/26/2020. IMPRESSION: 1. Redemonstrated total knee prosthesis, no hardware complication or acute abnormality. No significant joint effusion. Mild soft tissue swelling noted. Electronically signed: Mitul Banks. Transcribed by: [email or web address], User Resident: Electronically Signed by: MITUL BANKS @ 01/09/2021 08:47 PM Normal [facility] POC GLUCOSE LABon 12-29-2020 Glucose [Mass/Vol] 194 mg/dL High 70-100 [facility] Comment on above: Performed By: #### [id number] #### [facility] [address] [address], [place] Glucose [Mass/Vol] 125 mg/dL High 70-100 [facility] Comment on above: Performed By: #### 8 5499 #### [facility] [address] [place] [address], [place] POC GLUCOSE LABon 12-28-2020 Glucose [Mass/Vol] 197 mg/dL High 70-100 [facility] Comment on above: Performed By: #### 8 [id number] #### [facility] [address] [place] [address], [place] Glucose [Mass/Vol] 177 mg/dL High 70-100 [facility] Comment on above: Performed By: #### 8 [id number] #### [facility] [address] [place] [address], [place] Glucose [Mass/Vol] 215 mg/dL High 70-100 [facility] Comment on above: Performed By: #### 8 [id number] #### [facility] [address] [place] [address], [place] Glucose [Mass/Vol] 152 mg/dL High 70-100 [facility] Comment on above: Performed By: #### 8 [id number] #### [facility] [address] [address], [place] BASIC METABOLIC PANELon 06-1 -2020 Calcium [Mass/Vol] 8.2 mg/dL Low 8.6-10.3 [facility] Comment on above: Order Comment: No: D o not add to previous draw Performed By: #### 8 [id number] #### [facility] [address] [address], [place] Chloride [Moles/Vol] 102 mmol/L Normal 98-107 [facility] Comment on above: Order Comment: No: D o not add to previous draw Performed By: #### 8 [id number] #### [facility] [address] [address], [place] CO2 [Moles/Vol] 23 mmol/L Normal 21-31 [facility] Comment on above: Order Comment: No: D o not add to previous draw Performed By: #### 8 [id number] #### [facility] [address] [address], [place] Creatinine [Mass/Vol] 0.97 mg/dL Normal 0.70-1.30 [facility] Comment on above: Order Comment: No: D o not add to previous draw Performed By: #### 8 [id number] #### [facility] [address] [address], [place] GFR/1.73 sq M.predicted among blacks MDRD (S/P/Bld) [Vol rate/Area] mL/min/{1.73_m2} Normal >60 [facility] Comment on above: Order Comment: No: D o not add to previous draw Result Comment: Calc ulation may not be valid for patients over 70 years Performed By: #### 8 [id number] #### [facility] [address] [address], [place] GFR/1.73 sq M.predicted among non-blacks MDRD (S/P/Bld) [Vol rate/Area] mL/min/{1.73_m2} Normal >60 [facility] Comment on above: Order Comment: No: D o not add to previous draw Result Comment: Calc ulation may not be valid for patients over 70 years Performed By: #### 8 [id number] #### [facility] [address] [address], [place] Glucose [Mass/Vol] 191 mg/dL High 70-100 [facility] Comment on above: Order Comment: No: D o not add to previous draw Performed By: #### 8 [id number] #### [facility] [address] [address], [place] Potassium [Moles/Vol] 3.8 mmol/L Normal 3.5-5.1 [facility] Comment on above: Order Comment: No: D o not add to previous draw Performed By: #### 8 [id number] #### [facility] [address] [address], [place] Sodium [Moles/Vol] 134 mmol/L Low 136-145 [facility] Comment on above: Order Comment: No: D o not add to previous draw Performed By: #### 8 [id number] #### [facility] [address] [address], [place] Urea nitrogen [Mass/Vol] 23 mg/dL Normal 7-25 [facility] Comment on above: Order Comment: No: D o not add to previous draw Performed By: #### 8 [id number] #### [facility] [address] [address], [place] CBC COMPLETE BLOOD COUNTon 0 - Erythrocyte distribution width (RBC) [Ratio] 13.3 % Normal 11.5-15.0 [facility] Comment on above: Order Comment: No: D o not add to previous draw Performed By: #### 8 [id number] #### [facility] [address] Hematocrit (Bld) [Volume fraction] 35.4 % Low 39.0-50.0 [facility] Comment on above: Order Comment: No: D o not add to previous draw Performed By: #### 8 [id number] #### [facility] [address] [place] [address], [facility] Hemoglobin (Bld) [Mass/Vol] 11.7 g/dL Low 13.0-17.0 [facility] Comment on above: Order Comment: No: D o not add to previous draw Performed By: #### 8 [id number] #### [facility] [address] [place] [address], [facility] MCH (RBC) [Entitic mass] 31.2 pg Normal 27.0-33.0 [facility] Comment on above: Order Comment: No: D o not add to previous draw Performed By: #### 8 [id number] #### [facility] [address] MCHC (RBC) [Mass/Vol] 33.1 g/dL Normal 32.0-35.0 [facility] Comment on above: Order Comment: No: D o not add to previous draw Performed By: #### 8 [id number] #### [facility] [address] [place] [address], [facility] MCV (RBC) [Entitic vol] 94.4 fL Normal 82.0-98.0 [facility] Comment on above: Order Comment: No: D o not add to previous draw Performed By: #### 8 [id number] #### [facility] [address] [facility] [place] [address], [facility] Nucleated RBC/100 WBC (Bld) [Ratio] 0 % Normal 0-0 [facility] Comment on above: Order Comment: No: D o not add to previous draw Performed By: #### 8 [id number] #### [facility] [address] [place] [address], [facility] PLAT CNT 177 10*3/uL Normal 150-[address] [facility] Comment on above: Order Comment: No: D o not add to previous draw Performed By: #### 8 [id number] #### [facility] [address] [place] [address], [facility] RBC (Bld) [#/Vol] 3.75 10*6/uL Low 4.20-5.70 [facility] Comment on above: Order Comment: No: D o not add to previous draw Performed By: #### 8 [id number] #### [facility] [address] [place] [address], [facility] WBC (Bld) [#/Vol] 16.83 10*3/uL High 4.00-10.60 [facility] Comment on above: Order Comment: No: D o not add to previous draw Performed By: #### 8 [id number] #### [facility] [address] Operative Reporton Operative Report MR#: [id number] I [facility] Pt. Name: Lizzy Yee Room #: [id number] Discharge Date: Birthdate: 1945 OPERATIVE REPORT DATE [...] cemented posterior stabilized total knee arthroplasty using [place] implants. COMPLICATIONS: None. TOTAL TOURNIQUET TIME: 92 [...] surgery. 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 The patient signed the consent form. Site was marked. We proceed with IV antibiotics in the form of 2 g of Ancef within an hour of the incision. PROCEDURE IN DETAIL: After written consent obtained, site was marked. The patient was taken to the [facility] and was seen by anesthesia. He [...] content not included)... Normal [facility] POC GLUCOSE LABon 12-27-2020 Glucose [Mass/Vol] 200 mg/dL High 70-100 [facility] Comment on above: Performed By: #### 8 [id number] #### [facility] [address] [address], [place] Glucose [Mass/Vol] 186 mg/dL High 70-100 [facility] Comment on above: Performed By: #### 8 [id number] #### [facility] [address] [address], [place] Glucose [Mass/Vol] 250 mg/dL High 70-100 [facility] Comment on above: Performed By: #### 8 [id number] #### [facility] [address] [address], [place] Glucose [Mass/Vol] 177 mg/dL High 70-100 [facility] Comment on above: Performed By: #### 8 [id number] #### [facility] [address] [place] [address], [place] POC GLUCOSE LABon 12-26-2020 Glucose [Mass/Vol] 230 mg/dL High 70-100 [facility] Comment on above: Performed By: #### 8 [id number] #### [facility] [address] [place] [address], [place] Glucose [Mass/Vol] 278 mg/dL High 70-100 [facility] Comment on above: Performed By: #### 8 [id number] #### [facility] [address] [facility] [place] [address], [place] Glucose [Mass/Vol] 174 mg/dL High 70-100 [facility] Comment on above: Performed By: #### 8 [id number] #### [facility] [address] [facility] [place] [address], [place] Glucose [Mass/Vol] 146 mg/dL High 70-100 [facility] Comment on above: Performed By: #### 8 [id number] #### [facility] [address] [facility] [address], [place] PORTABLE KNEE RIGHT 2 VWSon 12-26-2020 PORTABLE KNEE RIGHT 2 S [facility] Department of Radiology [address] [place] [id number] ======== Patient Name: LIZZY YEE : 1945 Sex: M Age: Race: White Pt. Location: [place] [address] Patient Status: I Ordered Date: 12/26/2020 7:05:00 [...] replacement. Electronically signed: José Thornton. Transcribed by: [email or web address], User Resident: JOSÉ THORNTON Electronically Signed by: JOSÉ THORNTON @ 12/26/2020 03:28 PM I personally read this/these film(s) with this resident Normal [facility] Comment on above: Order Comment: Hardw are Evaluation, In PACU; HIP RIGHT 1 OR 2 VWS WITH PE LVISon 10-05-2020 HIP RIGHT 1 OR 2 VWS WITH PELVIS [facility] Department of Radiology [address] [place] [phone] ======== Patient Name: LIZZY YEE [...] narrowing. Electronically signed: Mitul Banks. Transcribed by: [email or web address], User Resident: Electronically Signed by: MITUL BANKS @ 10/05/2020 01:08 PM Normal [facility] Comment on above: Order Comment: Views (X-RAY, HIP): AP Pelvis, X-Table Lateral Hip , Weight Bearing?: Y KNEE LEFT 4VWSon 08-20-2020 KNEE LEFT 4VWS [facility] Department of Radiology [address] [place] [id number] ======== Patient Name: LIZZY YEE : 1945 Sex: M Age: Race: White Pt. Location: 84 Patient Status: O Ordered Date: 08/20/2020 8:10:00 AM Completed Date: 08/20/2020 08:14 AM Requesting Provider: CEDRICK WILD Attending Provider: CEDRICK WILD Report Copy To: Signs & Symptoms: M25.569 Pain in unspecified knee I10 History: [place] Comments: Views (X-RAY, KNEE): AP, Lateral, Tunnel, [place] , Weight Bearing?: Y Exam: KNEE LEFT 4VWS ======== KNEE LEFT 4VWS 08/20/2020 8:14 AM CLINICAL INDICATIONS: M25.569 Pain in unspecified knee I10 TECHNOLOGIST COMMENTS: Patient states having bilateral knee pain. QUESTION FOR THE RADIOLOGIST: Views (X-RAY, KNEE): AP, Lateral, Tunnel, [place] , Weight Bearing?: Y PROTOCOL: AP,Lateral,Tunnel and [...] reports Electronically signed: Ej Francisco. Transcribed by: [email or web address], User Resident: TAMERA MARIE Electronically Signed by: EJ FRANCISCO @ 08/20/2020 08:41 AM I personally read this/these film(s) with this resident Normal [facility] Comment on above: Order Comment: Views (X-RAY, KNEE): AP, Lateral, Tunnel, [place] , Weight Bearing?: Y KNEE RIGHT 4 Son KNEE RIGHT 4 [facility] Department of Radiology [address] [place] [id number] ======== Patient Name: LIZZY YEE : 1945 Sex: M Age: Race: White Pt. Location: Patient Status: O Ordered Date: 08/20/2020 8:10:00 AM Completed Date: 08/20/2020 08:14 AM Requesting Provider: CEDRICK WILD Attending Provider: CEDRICK WILD Report Copy To: Signs & Symptoms: M25.569 Pain in unspecified knee I10 History: [place] Comments: Views (X-RAY, KNEE): AP, Lateral, Tunnel, [place] , Weight Bearing?: Y Exam: KNEE RIGHT 4 [facility] ======== KNEE RIGHT 4 [facility] 08/20/2020 8:14 AM SIGNS AND SYMPTOMS: M25.569 Pain in unspecified knee I10 TECHNOLOGIST COMMENTS: Patient states having bilateral knee pain. QUESTION FOR THE RADIOLOGIST: Views (X-RAY, KNEE): AP, Lateral, Tunnel, [place] , Weight Bearing?: Y PROTOCOL: AP,Lateral,Tunnel and [...] knee. Electronically signed: Ej Francisco. Transcribed by: [email or web address], User Resident: Electronically Signed by: EJ FRANCISCO @ 08/20/2020 08:30 AM Normal [facility] Comment on above: Order Comment: Views (X-RAY, KNEE): AP, Lateral, Tunnel, [place] , Weight Bearing?: Y Vital Signs Date Time Vital Sign Value Performing Clinician Facility 12-08-2023 13:37-0400 Body height 161.29 cm [facility] 12-08-2023 13:37-0400 Body mass index (BMI) [Ratio] 39.4 kg/m2 [facility] 12-08-2023 13:37-0400 Body weight 102.68 kg [facility] 12-08-2023 13:37-0400 Diastolic blood pressure 67 mm[Hg] [facility] 12-08-2023 13:37-0400 Heart rate 61 /min [facility] 12-08-2023 13:37-0400 Respiratory rate 20 /min [facility] 12-08-2023 13:37-0400 Systolic blood pressure 126 mm[Hg] [facility] 11-17-2023 13:12-0400 Body weight 102.71 kg [facility] 11-04-2023 10:57-0400 Body height 161.29 cm [facility] 11-04-2023 10:57-0400 Body mass index (BMI) [Ratio] 39.5 kg/m2 [facility] 11-04-2023 10:57-0400 Body weight 102.96 kg [facility] 11-04-2023 10:57-0400 Diastolic blood pressure 70 mm[Hg] [facility] 11-04-2023 10:57-0400 Heart rate 57 /min [facility] 11-04-2023 10:57-0400 Respiratory rate 18 /min [facility] 11-04-2023 10:57-0400 SaO2% (BldA) [Mass fraction] 97 % [facility] 11-04-2023 10:57-0400 Systolic blood pressure 109 mm[Hg] [facility] 06-05-2023 10:00-0500 Body height 165.1 cm Juancarlos Ball Other [employer] Other 06-05-2023 10:00-0500 Body mass index (BMI) [Ratio] 39.87 kg/m2 Juancarlos Ball Other [employer] Other 06-05-2023 10:00-0500 Body weight 108.68 kg Juancarlos Ball Other [employer] Other 06-05-2023 10:00-0500 Diastolic blood pressure 71 mm[Hg] Juancarlos Ball Other [employer] Other 06-05-2023 10:00-0500 Respiratory rate 20 /min Juancarlos Ball Other [employer] Other 06-05-2023 10:00-0500 Systolic blood pressure 118 mm[Hg] Juancarlos Ball Other [employer] Other 05-06-2023 13:45-0400 Body height 165.1 cm Juancarlos Ball Other [employer] Other 05-06-2023 13:45-0400 Body mass index (BMI) [Ratio] 39.97 kg/m2 Juancarlos Ball Other [employer] Other 05-06-2023 13:45-0400 Body weight 108.95 kg Juancarlos Ball Other [employer] Other 05-06-2023 13:45-0400 Diastolic blood pressure 87 mm[Hg] Juancarlos Ball Other [employer] Other 05-06-2023 13:45-0400 Respiratory rate 16 /min Juancarlos Ball Other [employer] Other 05-06-2023 13:45-0400 Systolic blood pressure 158 mm[Hg] Juancarlos Ball Other [employer] Other 03-10-2023 11:00-0400 Body height 165.1 cm Juancarlos Ball Other [employer] Other 03-10-2023 11:00-0400 Body mass index (BMI) [Ratio] 39.3 kg/m2 Juancarlos Ball Other [employer] Other 03-10-2023 11:00-0400 Body weight 107.14 kg Juancarlos Ball Other [employer] Other 03-10-2023 11:00-0400 Diastolic blood pressure 67 mm[Hg] Juancarlos Ball Other [employer] Other 03-10-2023 11:00-0400 Respiratory rate 16 /min Juancarlos Ball Other [employer] Other 03-10-2023 11:00-0400 Systolic blood pressure 120 mm[Hg] Juancarlos Ball Other [employer] Other 10-16-2022 13:12-0400 Body temperature 97.11 [degF] Jay Gonzalez MD Work Phone: [facility] 10-16-2022 13:12-0400 Diastolic blood pressure 66 mm[Hg] Jay Gonzalez MD Work Phone: [facility] 10-16-2022 13:12-0400 Heart rate 51 /min Jay Gonzalez MD Work Phone: [facility] 10-16-2022 13:12-0400 SaO2% (BldA) [Mass fraction] 96 % Jay Gonzalez MD Work Phone: [facility] 10-16-2022 13:12-0400 Systolic blood pressure 143 mm[Hg] Jay Gonzalez MD Work Phone: [facility] 09-08-2022 13:30-0500 Body height 165.1 cm Juancarlos Ball Other [employer] Other 09-08-2022 13:30-0500 Body mass index (BMI) [Ratio] 39.33 kg/m2 Juancarlos Ball Other [employer] Other 09-08-2022 13:30-0500 Body weight 107.23 kg Juancarlos Ball Other [employer] Other 09-08-2022 13:30-0500 Diastolic blood pressure 70 mm[Hg] Juancarlos Ball Other [employer] Other 09-08-2022 13:30-0500 Respiratory rate 20 /min Juancarlos Ball Other [employer] Other 09-08-2022 13:30-0500 Systolic blood pressure 112 mm[Hg] Juancarlos Ball Other [employer] Other 01-27-2022 13:20-0400 Body height 165.1 cm Jus Medina MD Work Phone: [facility] 01-27-2022 13:20-0400 Body temperature 96.91 [degF] Jus Medina MD Work Phone: [facility] 01-27-2022 13:20-0400 Body weight 104.33 kg Jus Medina MD Work Phone: [facility] 01-27-2022 13:20-0400 Diastolic blood pressure 56 mm[Hg] Jus Medina MD Work Phone: [facility] 01-27-2022 13:20-0400 Heart rate 50 /min Jus Medina MD Work Phone: [facility] 01-27-2022 13:20-0400 SaO2% (BldA) [Mass fraction] 98 % Jus Medina MD Work Phone: [facility] 01-27-2022 13:20-0400 Systolic blood pressure 131 mm[Hg] Jus Medina MD Work Phone: [facility] 10-10-2021 10:46-0400 Body height 165.1 cm Jay Gonzalez MD Work Phone: [facility] 10-10-2021 10:46-0400 Body weight 102.51 kg Jay Gonzalez MD Work Phone: [facility] 10-10-2021 10:46-0400 Diastolic blood pressure 65 mm[Hg] Jay Gonzalez MD Work Phone: [facility] 10-10-2021 10:46-0400 Heart rate 76 /min Jay Gonzalez MD Work Phone: [facility] 10-10-2021 10:46-0400 Systolic blood pressure 137 mm[Hg] Jay Gonzalez MD Work Phone: [facility] 10-10-2021 10:44-0400 Body height 165.1 cm Jus Medina MD Work Phone: [facility] 10-10-2021 10:44-0400 Body weight 102.51 kg Jus Medina MD Work Phone: [facility] 10-10-2021 10:44-0400 Diastolic blood pressure 65 mm[Hg] Jus Medina MD Work Phone: [facility] 10-10-2021 10:44-0400 Heart rate 76 /min Jus Medina MD Work Phone: [facility] 10-10-2021 10:44-0400 SaO2% (BldA) [Mass fraction] 98 % Jus Medina MD Work Phone: [facility] 10-10-2021 10:44-0400 Systolic blood pressure 137 mm[Hg] Jus Medina MD Work Phone: [facility] Encounters Encounter Date Encounter Type Care Provider Facility Start: 12-15-2023 End: 12-15-2023 ambulatory JOANNA ORTEGA Not Available Start: 12-10-2023 End: 12-10-2023 ambulatory ANGELA BINGHAM Not Available Start: 12-08-2023 End: 12-08-2023 Patient encounter procedure [facility] Work Phone: Start: 11-17-2023 End: 11-17-2023 Patient encounter procedure [facility] Work Phone: Start: 11-04-2023 End: 11-04-2023 Patient encounter procedure [facility] Work Phone: Start: 10-27-2023 Telephone encounter Jay patel MD Work Phone: General Surgery Start: 10-15-2023 End: 10-15-2023 ambulatory JAY GONZALEZ Facility:[facility] Start: 10-09-2023 Non-patient / Non-visit [facility] [employer] Work Phone: Start: 10-01-2023 End: 10-01-2023 ambulatory ANGELA BINGHAM Not Available Start: 08-10-2023 (RD) 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 [facility] Start: 08-10-2023 End: 08-10-2023 ambulatory Juancarlos Cuenca [facility] [employer] Other Start: 08-03-2023 End: 08-04-2023 ambulatory Hanh Wade MD Facility: [facility] Start: 07-27-2023 End: 07-28-2023 ambulatory Hanh Wade MD Facility: [facility] Start: 06-17-2023 End: 06-17-2023 ambulatory Juancarlos Cuenca Other [facility] [employer] Other Start: 06-17-2023 Telephone encounter Juancarlos Ball [facility] Start: 06-16-2023 End: 06-16-2023 ambulatory Juancarlos Ball Other [employer] Other Start: 06-16-2023 Telephone encounter Juancarlos Ball [facility] Start: 06-09-2023 End: 06-09-2023 ambulatory Juancarlos Ball Other [employer] Other Start: 06-09-2023 Telephone encounter Juancarlos Ball [facility] Start: 06-08-2023 End: 06-08-2023 ambulatory Juancarlos Ball Other [employer] Other Start: 06-08-2023 Telephone encounter Juancarlos Ball [facility] Start: 06-07-2023 End: 06-07-2023 ambulatory Juancarlos Ball Other [employer] Other Start: 06-07-2023 Telephone encounter Juancarlos Ball [facility] Start: 06-05-2023 End: 06-05-2023 ambulatory Juancarlos Ball Other [employer] Other Start: 06-05-2023 Office outpatient vi sit 25 minutes Juancarlos Ball [facility] Start: 05-27-2023 End: 05-27-2023 ambulatory Juancarlos Ball Other [employer] Other Start: 05-27-2023 Telephone encounter Juancarlos Ball [facility] Start: 05-17-2023 End: 05-17-2023 ambulatory Juancarlos Ball Other [employer] Other Start: 05-17-2023 Telephone encounter Juancarlos Ball [facility] Start: 05-15-2023 End: 05-15-2023 ambulatory Juancarlos Ball Other [employer] Other Start: 05-15-2023 Telephone encounter Juancarlos Ball [facility] Start: 05-07-2023 End: 05-07-2023 ambulatory Juancarlos Ball Other [employer] Other Start: 05-07-2023 Telephone encounter Juancarlos Cuenca [facility] Start: 05-06-2023 End: 05-06-2023 ambulatory Juancarlos Ball Other [employer] Other Start: 05-06-2023 Office outpatient vi sit 25 minutes Juancarlos Ball [facility] Start: 05-06-2023 Telephone encounter Juancarlos Ball [facility] Start: 04-22-2023 End: 04-22-2023 ambulatory [facility] Start: 04-04-2023 End: 04-04-2023 ambulatory Juancarlos Ball Other [employer] Other Start: 04-04-2023 Telephone encounter Juancarlos Cuenca [facility] Start: 03-10-2023 End: 03-10-2023 ambulatory Juancarlos Cuenca Other [employer] Other Start: 03-10-2023 Office outpatient vi sit 25 minutes Juancarlos Ball [facility] Start: 12-24-2022 End: 12-24-2022 ambulatory Juancarlos Cuenca Other [employer] Other Start: 12-24-2022 Telephone encounter Juancarlos Cuenca [facility] Start: 12-17-2022 End: 12-18-[address] NYA BIRD . Facility:[facility] Start: 12-16-2022 End: 12-16-2022 ambulatory NARENDRANATH LAKSHMIPATHY . 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] Start: 10-06-2022 Telephone encounter Jay patel MD Work Phone: General Surgery Comment on above: Patient Question Start: 09-16-2022 Telephone encounter Juancarlos Cuenca [facility] Start: 09-16-2022 End: 09-17-2022 ambulatory Nya BIRD [place] [employer] Other Start: 09-16-2022 End: 09-27-2022 Pre-admission assessment Nya BIRD [facility] Start: 09-12-2022 Telephone encounter Juancarlos Cuenca [facility] Start: 09-12-2022 End: 09-13-[address] JUANCARLOS CUENCA [facility] [employer] Other Start: 09-08-2022 End: 09-08-2022 ambulatory Juancarlos Cuenca Other [employer] Other Start: 09-08-2022 Patient encounter procedure Juancarlos Cuenca [facility] Start: 07-31-2022 End: 08-01-[address] EVAN LAMAS . Facility:[facility] Start: 07-03-2022 Encounter for preprocedural laboratory examination DR EVAN LAMAS . [facility] Start: 07-01-2022 End: 07-01-[address] EVAN LAMAS . Facility:[facility] Start: 06-27-2022 End: 06-28-[address] EVAN LAMAS . Facility:[facility] Start: 06-27-2022 End: 06-28-2022 Encounter for preprocedural laboratory examination DR EVAN LAMAS . Facility:[facility] Start: 05-29-2022 End: 05-30-[address] EVAN LAMSA . Facility:[facility] Start: 05-19-2022 End: 05-19-2022 ambulatory [facility] Start: 05-13-2022 End: 05-13-[address] [...] JUANCARLOS CUENCA Facility: Start: 01-27-2022 End: 01-27-2022 Patient encounter procedure Jus Medina MD Work Phone: Colorectal Surgery Comment on above: Polyposis of colon ( Primary Dx); Incisional hernia, without obstruction or gangrene Start: 10-11-2021 Telephone encounter Shilpa Storm MD Work Phone: [facility] Research Comment on above: Research Start: 10-10-2021 End: 10-10-2021 Patient encounter procedure Jay Gonzalez MD Work Phone: General Surgery Comment on above: Ventral incisional h ernia (Primary Dx) Polyposis of colon ( Primary Dx) Start: 12-26-2020 End: 12-29-2020 ambulatory JUANCARLOS CUENCA Facility:[facility] Start: 10-19-2020 End: 10-20-2020 ambulatory JUANCARLOS CUENCA Facility:[facility] Procedures Date Procedure Procedure Detail Performing Clinician Start: 10-04-2021 Partial resection of colon Nya BIRD Start: 10-04-2021 Repair of ventral hernia Nya BIRD Start: 04-08-2021 Colonoscopy Nya ABACRA Comment on above: Transverse and desce nding colon polyps Start: 12-26-2020 ANESTH KNEE ARTHROPLASTY JUANCARLOS CUENCA Start: 12-26-2020 Arthrp kne condyle&p latu medial&lat compartments VITHAL TIM Start: 12-26-2020 JOINT DEVICE (IMPLANTABLE) JUANCARLOS CUENCA Start: 11-17-2017 Colonoscopy Nya ABARCA Comment on above: 2004 (2), 2005, 2007 , 2009, 2011, 05/2015, 11/2017 Start: 03-06-2016 Transurethral prostatectomy Nya BIRD Start: 02-18-2016 Cystoscopy Nya NI TEVIN Start: 01-16-2016 Urodynamic studies [place] aeandreas NILL Start: 07-20-2012 Hernia repair Nya ROSARIO Start: 08-26-2007 Prosthetic arthropla sty of the hip Nya BIRD Start: 08-20-2007 Hernia of anterior abdominal wall (disorder) Nya SAVAGEL Start: 04-19-2004 Transrectal biopsy o f prostate using ultrasound guidance Nya NILL 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 Bilateral vasectomy Nya NILL 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 [place] ael NILL Plan of Treatment Date Care Activity Detail Author Start: 10-14-2024 BP Controlled (<130/80) BP Controlle d (<130/80) [facility] Start: 07-20-2023 Advance Directive Discussion Advance Directive Discussion [facility] Start: 07-20-2023 Behavioral Health Screening Behavioral Health Screening [facility] Start: 10-10-2022 End: 11-09-2022 Ct abdomen & pelvis w/o contrast material CT ABD/PEL WO IVCON Radiology Routine Ventral incisional hernia Expected: 10/10/2022, Expires: 11/09/2022 [facility] Work Phone: Comment on above: Expected: 10/10/2022 , Expires: 11/09/2022 Start: 07-20-2022 ADVANCE DIRECTIVE DISCUSSION ADVANCE DIRECTIVE DISCUSSION [facility] Start: 07-20-2022 DEPRESSION ASSESSMENT DEPRESSION ASS ESSMENT [facility] Start: 03-20-2022 Influenza vaccination INFLUENZA (#1) [facility] Start: 03-13-2022 Hemoglobin A1c measurement HbA1C [facility] Start: 03-13-2022 Hemoglobin A1c/Hemoglobin.total in Blood HBA1C [facility] Start: 01-04-2022 COVID-19 VACCINE (5 - Booster for Pfizer series) COVID-19 VACCINE (5 - Booster for Pfizer series) [facility] Start: 07-20-2021 ADVANCE DIRECTIVE DISCUSSION ADVANCE DIRECTIVE DISCUSSION [facility] Start: 04-19-2015 Pneumococcal Vaccine : 65+ (2 of 2 - PCV) Pneumococcal Vaccine: 65+ (2 of 2 - PCV) [facility] Start: 2009 PNEUMOVAX AGE 65 AND OVER WITH 5YR LOOKBACK (#1) PNEUMOVAX AGE 65 AND OVER WITH 5YR LOOKBACK (#1) [facility] Start: 1994 SHINGRIX VACCINE (1 of 2) SHINGRIX VACCINE (1 of 2) [facility] Start: 12-31-1963 Urine microalbumin profile [facility] Start: 1962 ANNUAL PCP TEAM MICROBIAL SPECIALIST MACY DISEASE VISIT ANNUAL PCP TEAM CHRONIC DISEASE VISIT [facility] Start: 1962 BP CONTROLLED (<130/80) BP CONTROLLE D (<130/80) [facility] Start: 1962 Hepatitis B surface antibody level LDL CHOLESTEROL [facility] Start: 1962 HEPATITIS C SCREEN[facility]ITIS C [facility] Start: 1962 Hepatitis C screening Hepatitis C [facility] Start: 1956 Adult depression screening assessment DEPRESSION SCREENING [facility] Start: 1954 3 comp foot exam completed DIABETIC FOOT EXAM [facility] Start: 1954 Diabetic foot examination Diabetic Foot Exam [facility] Start: 1954 Glaucoma screening Dilated Retinal E xam [facility] Start: 1954 Hepatitis B screening URINE ALBUMIN:CREATININE RATIO [facility] Start: 1954 Hepatitis C antibody , confirmatory test DILATED RETINAL EXAM [facility] Start: 1950 PNEUMOCOCCAL: 65+ (1 - PCV) PNEUMOCOCCAL: 65+ (1 - PCV) [facility] End: 10-11-2022 Ct abdomen & pelvis w/o contrast material [facility] Work Phone: Comment on above: 1 Occurrences starti ng 10/11/2022 until 10/11/2022 End: 11-15-2023 Ct abdomen & pelvis w/o contrast material CT ABD/PEL WO IVCON Radiology Routine Ventral incisional hernia 1 Occurrences starting 10/16/2022 until 11/15/2023 [facility] Work Phone: Comment on above: 1 Occurrences starti ng 10/16/2022 until 11/15/2023 [facility] Immunizations Immunization Date Immunization Notes Care Provider Alexa dietz 05-20-2022 influenza virus vaccine, unspecified formulation Nya BIRD [facility] 05-16-2022 influenza, high dose seasonal, preservative-free Juancarlos Cuenca Other [employer] [facility] [employer] Other 05-16-2022 influenza virus vaccine, split virus (incl. purified surface antigen) Juancarlos Cuenca Other [employer] Other 05-16-2022 influenza virus vaccine, unspecified formulation [facility] 04-15-2022 SARS-CoV-2 (COVID-19 ) [id number] Nya BIRD [facility] 04-23-2022 COVID-19 Vaccine Pfi zer - Documentation Purposes Only Juancarlos Cuenca Other [facility] 11-09-2021 SARS-CoV-2 mRNA (igaqqaimuhz-apau-aesfg se) vaccine Nya NILL [facility] 04-19-2021 SARS-CoV-2 (COVID-19 ) mRNA BNT-162b2 vax Nya NILL [facility] Comment on above: Result Comment: 2022: [id number] 09-05-2020 SARS-CoV-2 (COVID-19 ) mRNA BNT-162b2 vax Nya NILL [facility] Comment on above: Result Comment: 2022: [id number] 08-15-2020 COVID-19 Vaccine Moderna - Documentation Purposes Only Juancarlos Cuenca Other [facility] 08-15-2020 SARS-CoV-2 (COVID-19 ) mRNA BNT-162b2 vax Nya NILL [facility] Comment on above: Result Comment: 2022: [id number] 03-28-2020 influenza virus vaccine, split virus (incl. purified surface antigen) Juancarlos Cuenca Other [employer] [facility] [employer] Other 03-28-2020 influenza virus vaccine, unspecified formulation [facility] 05-17-2019 influenza virus vaccine, split virus (incl. purified surface antigen) Juancarlos Cuenca Other [employer] [facility] [employer] Other 05-17-2019 influenza virus vaccine, unspecified formulation [facility] 05-13-2018 influenza virus vaccine, split virus (incl. purified surface antigen) Juancarlos Cuenca Other [employer] [facility] [employer] Other 05-13-2018 influenza virus vaccine, unspecified formulation [facility] 04-25-2015 influenza virus vaccine, split virus (incl. purified surface antigen) Juancarlos Cuenca Other [employer] Other 04-25-2015 influenza virus vaccine, unspecified formulation [facility] 04-25-2015 pneumococcal conjuga te vaccine, 13 valent Juancarlos Cuenca Other [facility] 04-19-2014 pneumococcal polysaccharide vaccine, 23 valent Juancarlos Cuenca Other [facility] 04-20-2013 tetanus and diphther ia toxoids, adsorbed, preservative free, for adult use (5 Lf of tetanus toxoid and 2 Lf of diphtheria toxoid) Juancarlos Cuenca Other [facility] 04-21-2012 pneumococcal polysaccharide vaccine, 23 valent Juancarlos Cuenca Other [facility] Payers Date Payer Category Payer Self-pay [id number] 2023 Unknown 2020 Private Health Insurance [facility] AARP SUPPLEMENT [id number] 2020-Present [phone] [address] [place] [address] Indemnity [id number] 2020 Private Health Insurance [facility] AARP SUPPLEMENT [id number] 2020-Present [phone] [address] [place] [address] Indemnity [id number] 2009 Medicare MEDICARE MEDICAR E A AND B [id number] 2009-Present [phone] [place] [address] Medicare [id number] 2009 Medicare [id number] 1959 Medicare [id number] 1959 Unknown [id number] 1944 Unknown [id number] 2.16.840.1.512851.3.579.2 .647 1944 Unknown [id number] 2.16.840.1.696349.3.579.2 .647 1944 Unknown [id number] 2.16.840.1.298885.3.579.2 .593 1944 Unknown [id number] 2.16.840.1.120953.3.579.2 .593 1944 Unknown [id number] 2.16.840.1.060204.3.579.2 .593 1944 Unknown [id number] 2.16.840.1.793067.3.579.2 .593 1944 Unknown [id number] 2.16.840.1.134633.3.579.2 .593 1944 Unknown [id number] 2.16.840.1.993754.3.579.2 .593 1944 Unknown [id number] 2.16.840.1.747090.3.579.2 .593 1944 Unknown [id number] 2.16.840.1.148358.3.579.2 .593 1944 Unknown [id number] 2.16.840.1.580854.3.579.2 .593 1944 Unknown [id number] 2.16.840.1.273599.3.579.2 .593 1944 Unknown [id number] 2.16.840.1.293746.3.579.2 .593 1944 Unknown [id number] 2.16.840.1.379260.3.579.2 .593 1944 Unknown [id number] 2.16.840.1.420163.3.579.2 .593 1944 Unknown [id number] 2.16.840.1.063315.3.579.2 .593 1944 Unknown [id number] 2.16.840.1.487534.3.579.2 .593 1944 Unknown [id number] 2.16.840.1.449386.3.579.2 .593 1944 Unknown [id number] 2.16.840.1.087846.3.579.2 .593 1944 Unknown [id number] 2.16.840.1.378509.3.579.2 .593 1944 Unknown [id number] 2.16.840.1.462075.3.579.2 .593 1944 Unknown [id number] 2.16.840.1.072021.3.579.2 .727 1944 Unknown [id number] 2.16.840.1.818917.3.579.2 .727 1944 Unknown [id number] 2.16.840.1.119906.3.579.2 .727 1944 Unknown [id number] 2.16.840.1.097532.3.579.2 .196 1944 Unknown [id number] 2.16.840.1.237748.3.579.2 .196 1944 Unknown [id number] 2.16.840.1.685874.3.579.2 .1259 1944 Unknown [id number] 2.16.840.1.562711.3.579.2 .1259 1944 Unknown [id number] 2.16.840.1.345751.3.579.2 .1259 Unknown [id number] Unknown [id number] 2.16.840.1.763825.19 Unknown [id number] Conversion Insurance [id number] Unknown [id number] 2.16.840.1.188086.3.579.2 .531 Social History Date Type Detail Facility Start: 05-21-2021 End: 09-16-2023 Tobacco smoking status NHIS Ex-smoker [facility] End: 07-20-1994 History of tobacco use Current smoker [facility] End: 07-20-1994 History of tobacco use Cigar Smoker [facility] Start: 05-21-2021 End: 10-16-2022 Tobacco use and exposure Smokeless tobacco non-user [facility] Start: 10-10-2021 End: 10-15-2023 Alcohol intake Ex-drinker (finding) [facility] Start: 05-21-2021 End: 10-16-2022 Tobacco Comment Quit 15+ years [facility] Start: 1945 Sex Assigned At Not on file [facility] Start: 08-25-2021 End: 09-24-2021 Exposure to SARS-CoV-2 (event) Not sure [facility] Start: 09-16-2022 Tobacco smoking status Never s moked tobacco (finding) [facility] Tobacco smoking status Former sm okeless tobacco user, quit more than 30 days ago [facility] Start: 10-15-2023 Sex Assigned At Male F [facility] Start: 10-15-2023 History of Social function [facility] Start: 1945 Sex Assigned At Male F [facility] Medical Equipment Procedure Code Equipment Code Equipment Origin al Text Equipment Identifier Dates Mesh Parietene Polypropylene Macroporous [id number] Surgical Monofilament - [id number] Start: 09-24-2021 Blood Sugar Diag nostic (Accu-Chek Guide Test Strips) strip Start: 09-14-2023 Blood Sugar Diag nostic (Accu-Chek Guide Test Strips) strip Start: 09-07-2023 End: 09-14-2023 Clinical Notes 12-29-2020 to 10-28-2023 Telephone Encounter - Efrain Zamarripa RN - 10/28/2023 8:29 AM EDTTelephone Encounter - Wendi De La Paz - 10/27/2023 9:52 AM EDT Note Date & Type Note [facility] 10-28-2023 Miscellaneous Notes Formattin g of this [...] Patient and or can be reached at [phone]. Thank you. Wendi Traore documented in this encounter [facility] 10-15-2023 Note HNO ID: [id number] Author: JAY GONZALEZ MD Service: ? Author Type: Physician Type: Progress Notes Filed: 10/15/2023 13:41 Note Text: [facility] - Follow [...] Gonzalez MD 10/15/23, 1:38 PM General Surgery [facility] Medical Decision Making: Problems: Low: Stable chronic illness Risk: Low: Low risk from testing/treatment Medical Decision Making Level: 3 - Low [facility] 08-10-2023 Evaluation note Encounter Date Diagnosis Assessment Notes Jul, Other Summary of Visit: (A) Meal timing (B) DM2 nutrition education (C) Answered general, nutrition-rela maru questions [employer] Other 11-28-2023 Evaluation note* Encounter Date Diagnosis Assessment Notes Treatment Notes Treatment Clinical Notes May, Type 2 diabetes mellitus with hyperglycemia, without long-term current use of insulin (ICD-10 - E11.65) [employer] Other 11-28-2023 Evaluation note* Encounter Date Diagnosis Assessment Notes Treatment Notes Treatment Clinical Notes May, Primary hypertension (ICD-10 - I10) [employer] Other 11-21-2023 Evaluation note* Encounter Date Diagnosis Assessment Notes Treatment Notes Treatment Clinical Notes May, Type 2 diabetes mellitus with hyperglycemia, without long-term current use of insulin (ICD-10 - E11.65) [employer] Other 11-17-2023 Evaluation note* Encounter Date Diagnosis [...] index [BMI] 39.0-39.9, adult (ICD-10 - Z68.39) [employer] Other 11-08-2023 Evaluation note* Encounter Date Diagnosis Assessment Notes Treatment Notes Treatment Clinical Notes May, Primary hypertension (ICD-10 - I10) [employer] Other 10-29-2023 Evaluation note* Encounter Date Diagnosis Assessment Notes Treatment Notes Treatment Clinical Notes Apr, Type 2 diabetes mellitus with hyperglycemia, without long-term current use of insulin (ICD-10 - E11.65) Apr, Primary hypertension (ICD-10 - I10) [employer] Other 10-19-2023 Evaluation note* Encounter Date Diagnosis Assessment Notes Treatment Notes Treatment Clinical Notes Apr, Type 2 diabetes mellitus with hyperglycemia, without long-term current use of insulin (ICD-10 - E11.65) [employer] Other 10-18-2023 Evaluation note* Encounter Date Diagnosis Assessment Notes Treatment Notes Treatment Clinical Notes Apr, ASHD (arteriosclerotic heart disease) (ICD-10 - I25.10) This patient is stable without activity related CP, dyspnea or lightheadedness. They are instructed to continue exercise and AHA diet plan. Continue secondary prevention measures. Soft Boarder suggesting SGLT-2 for dual benefit w/ ASHD [...] contributed. Monitor for now Apr, Atherosclerosis of [place] artery of right lower extremity with rest pain (ICD-10 - I70.221) Walk daily until painful. Inspect feet daily for cuts. Continue secondary prevention measures. Scheduled post op JAMIR [employer] Other 10-18-2023 Evaluation note* Encounter Date Diagnosis Assessment Notes Treatment Notes Treatment Clinical Notes Apr, Type 2 diabetes mellitus with hyperglycemia, without long-term current use of insulin (ICD-10 - E11.65) [employer] Other 10-04-2023 [facility] Note Chief Complaint: Patient here for 1 year follow up CAD, PVD, and hypertension. He underwent LE angiogram last month with Dr. Mccurdy of [facility]. He sees him [...] history of Coronary artery disease, Diabetes mellitus ([facility]), Hypertension, PVD (peripheral vascular disease) ([facility]), and Sleep [...] common femoral artery. Surgeon: Jyoti Mccurdy Primary Telephone Station Installer: None. Anesthesia: Local with 1% lidocaine and [...] was given (more content not included)...[facility]08-22-2023 Evaluation note* Encounter Date Diagnosis Assessment [...] f/u Vascular surgery for surveillance US Feb, NAIRNDER (generalized anxiety disorder) (ICD-10 - F41.1) Healthy [...] [BMI ] 39.0-39.9, adult (ICD-10 - Z68.39) [employer] Other 05-31-2023 NoteOPERATIVE NOTE OPERATION DATE: 11/29/2022 [...] in three years. CC: Juancarlos Cuenca D.O.[facility] [id number] NotePROCEDURE: XR HIP LT 2 3V WO PELVIS HISTORY: Pain of left hip joint COMPARISON: None. FINDINGS: BONES:No fracture, acute abnormality, or significant arthropathy. SOFT TISSUES:No visible soft tissue swelling. EFFUSION:None visible. OTHER: Negative. IMPRESSION: 1. No acute bone abnormality. 2. Mild degenerative joint disease. Electronically authenticated by: GABY PADILLA Date: 2022-11-28 13:08[facility]04-11-2023 NoteCONSULTATION CONSULTATION DATE: 10/28/2022 TO: Juancarlos [...] our patients to inform us about any bcep-nps-llpxozw medications or herbal remedies/nutritional supplements/alternative remedies. 2. [...] treatment options with their primary care provider.[facility] [id number] History of Present illness Narrative* Jay Gonzalez MD - 10/16/2022 2:38 PM EDT [facility] - Follow Up [...] Gonzalez MD 10/16/22, 2:45 PM General Surgery [facility] * Destiny Zapata MA - 10/16/2022 1:09 PM EDT What is the reason for your visit today? Follow up 1 year Who is your referring physician? Are you having poor oral intake? NO Have you had unintentional weight loss of 15 lbs/7 Kg in the last 3-6 months? NO Bowels: regular Wound: Temperature: No Drains: No documented in [facility] encounterMer[facility]03-25-[facility]23 Miscellaneous Notes* Allied Health - Glenda Romo, RT(R) - 10/11/2022 11:00 AM EDT Radiology Service [...] 10:29 AM documented in this encounterMer[facility]03-21-2023 Miscellaneous Notes* Telephone Encounter - Efrain [...] or so at a non facility. PH: [phone] documented in this encounterMercy [facility]02-24-2023 Evaluation note* Encounter Date Diagnosis Assessment Notes Treatment Notes Treatment Clinical Notes Aug, Left carotid artery stenosis (ICD-10 - I65.22) US: right <50%, left 50-69% - 10/2020 US: right <50%, left 80-90% - 08/2022 [employer] Other 02-20-2023 Evaluation note* Encounter Date Diagnosis [...] reviewed and amended by provider signed below. [employer] Other 01-12-2023 NoteCONSULTATION PROCEDURE DATE: 09/18/2022 PREOPERATIVE [...] will be followed up in the office.[facility] [id number] NoteCONSULTATION CONSULTATION DATE: 07/31/2022 HISTORY OF PRESENT [...] and the patient agrees with this plan.[facility] 05-29-2022 NoteCONSULTATION CONSULTATION DATE: 05/29/2022 HISTORY OF [...] be followed up in the clinic thereafter.[facility] DaytonLublvxmr06-16-6681 NotePatient here for 1 year follow up CAD, hypertension, and PVD. Had labs in September 2021 while at [facility] for colon surgery/hernia repair. He became hypotensive s/p surgery so his BP meds were adjusted. Denies chest pain and palpitations. Says his SOB with exertion remains unchanged. Review of Systems Cardiovascular: Positive for dyspnea on exertion. Musculoskeletal: Positive for arthritis, back pain, joint pain, muscle weakness and myalgias. Neurological: Positive for light-headedness and numbness.[facility]10-31-20[facility] NoteSUBJECTIVE Chief Complaint Patient presents with Coronary Artery Disease Hypertension Peripheral Vascular Disease Lizzy Yee is a 76 y.o. male here for follow-up. HPI Patient here for 1 year follow up CAD, hypertension, and PVD. Had labs in September 2021 while at [facility] for colon surgery/hernia repair. He [...] position changes. 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 A refill for Baclofen 10 mg [...] knee osteoarthritis. The patient is in agreement.[facility] [id number] Note CONSULTATION CONSULTATION DATE: 03/25/2022 CHIEF COMPLAINT: 1. Low back pain. 2. Left knee pain. HISTORY OF PRESENT ILLNESS: This is a very pleasant, 76-year-old male, who is known to the pain practice remote. The patient had a right total knee replacement at [facility]. The patient is doing well with regards [...] patient understands and would like to proceed.[facility] 01-27-2022 Nurse Note* Sarah Osman MA - [...] Drains: No documented in this encounterMer[facility]07-11-2022 History of Present illness Narrative* Jus Medina [...] needed. Jus Medina MD documented in this encounterMercy Health [facility]03-25-2022 Miscellaneous Notes* Telephone Encounter - Shan Parham - 10/11/2021 3:09 PM EDTSummary: IRB#: [id number] Research Outreach IRB# [id number], Qualitative Interviews in Postoperative Gastrointestinal Dysfunction (POGD). PI: Shilpa Storm MD, SANJIV, FASA. Outcomes Research Department. [facility] [place]. This is a research study note. Patient [...] there for his review. Shan Parham Research Telephone Station Installer Anesthesiology [place] Outcomes Research Department documented in this encounterMercy Health [facility]03-24-2022 History of Present illness Narrative* Jay Gonzalez MD - 10/10/2021 1:37 PM EDT [facility] - Follow [...] the care that he received while at [place]. Objective: AAOx3, NAD Non-labored respirations on room [...] Gonzalez MD 10/10/21, 1:37 PM General Surgery [facility] documented in this encounterMercy Health [facility]03-24-2022 History of Present illness Narrative* Jus Medina MD - 10/10/2021 11:00 AM EDT HPI Lizzy Yee is a 75 year old male here today for postop Open subtotal colectomy with stapled [id number] ileosigmoid anastomosis ventral herniorrhaphy with transversus abdominus [...] months Jus Medina MD documented in this encounterMercy Health [facility]03-24-2022 Nurse Note* Elena Ferrell MA - 10/10/2021 10:45 AM EDT What is the reason for your visit today? Follow up Who is your referring physician? Self Are you having poor oral intake? NO Have you had unintentional weight loss of 15 lbs/7 Kg in the last 3-6 months? NO Bowels: regular Wound: none Temperature: No Drains: No documented in this encounterMercy Health [facility]03-08-2022 History of Past illness Narrative* Problem Noted Date Resolved Date 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 documented as of this encounter (statuses as of 10/10/2021) [address]08-2022 History of Past illness Narrative* Problem Noted Date Resolved Date 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 documented as of this encounter (statuses as of 10/10/2021) [address]08-2022 History of Past illness Narrative* Problem Noted Date Resolved Date 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 documented as of this encounter (statuses as of 10/11/2021) [address]-2022 History of Past illness Narrative* Problem Noted Date Resolved Date 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 documented as of this encounter (statuses as of 02/05/2022) [address]08-2022 History of Past illness Narrative* Problem Noted Date Resolved Date 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 documented as of this encounter (statuses as of 10/07/2022) [address]08-[address]22 History of Past illness Narrative* Problem Noted Date Resolved Date 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 documented as of this encounter (statuses as of 10/12/2022) [address]08-[address]22 History of Past illness Narrative* Problem Noted Date Resolved Date 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 documented as of this encounter (statuses as of 10/12/2022) [address]08-[address]22 History of Past illness Narrative* Problem Noted Date Resolved Date 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 documented as of this encounter (statuses as of 10/16/2022) [facility]03-08-2022 History of Past illness Narrative* Problem Noted Date Diagnosed Date Resolved Date 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 documented as of this encounter (statuses as of 10/28/2023) [facility]06-12-2021 NoteMR#: [id number] 2 [facility] Pt. Name: Lizzy Yee Admitted: 12/26/2020 Discharged: 12/29/2020 Date of : 1945 Physician: Ty Avalos M.D. DISCHARGE SUMMARY [facility] Pt. Name: Kurt Yee Admitted: 12/26/20 [...] CONDITION AT DISCHARGE: Stable DISPOSITION: Home with [facility] DISCHARGE INSTRUCTIONS: Take medications as prescribed, follow [...] Cano MD Date Trans: 12/29/2020 08:18 P/ BARRETT_JN:[id number] cc: Juancarlos Cuenca D.O. [address] [place] [address], [address] [facility] [id number] No data available for this section [facility] Diagnosis Ventral incisional hernia- Primary documented in this encounter [facility] note* Diagnosis Polyposis of colon- Primary Benign neoplasm of colon documented in this encounter [facility] note* Diagnosis Polyposis of colon- Primary Benign neoplasm of colon Incisional hernia, without obstruction or gangrene Incisional hernia without mention of obstruction or gangrene documented in this encounter [facility] noteNo [employer] Other Evaluation note* Diagnosis Ventral incisional hernia documented in this encounter [facility] note* Diagnosis Ventral incisional hernia- Primary documented in this encounter [facility] note* Diagnosis Onset Date Resolution Status ASHD (arteriosclerotic heart disease) acute Elevated cholesterol acute NARINDER (generalized anxiety disorder) acute Obesity acute Obstructive sleep apnea acut e Primary hypertension acute [id number] acute [id number] acute ASHD (arteriosclerotic heart disease) acute Elevated cholesterol acute Obstructive sleep apnea acut e Primary hypertension acute Type 2 diabetes mellitus wit h diabetic peripheral angiopathy without gangrene acute 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 Type 2 diabetes mellitus with hyperglycemia acute [facility] Work Phone: History general Narrative - Reported* Type Description [...] RIGHT HEMICOLECTOMY 2003 Hospitalization History SEE SURGICAL [facility] Other History general Narrative - Reported* Type [...] History Colonoscopy 12/2022 Hospitalization History SEE SURGICAL [facility] Other [facility] general Narrative - Reported* Type Description Date [...] anaya 03/2023 Hospitalization History SEE SURGICAL HX [facility] Other Hospital Discharge instructions No data available for this section [facility] No data available for this section [facility] for referral (narrative)* Reason 10/09/22 Referral for carotid artery stenosis Diagnosis 1 Left carotid artery stenosis (I65.22) Referral Organization [facility] nemo Referring Provider First Name Juancarlos Referring Provider Last Name Bang Referring Provider Specialty Internal Me dicine Referred Organization [facility] Referred Provider Jyoti Mccurdy Referred Address [address] [place], [place],[address] Referred Provider Specialty Vascular Ruslan kajal Referral Priority Routine Referral Appointment Date 2022-10-09 General Notes Mr. Hooper is being r eferred for carotid artery stenosis. He recently completed carotid artery US at [facility], which revealed 87% left carotid bulb stenosis. The ICA velocities are not elevated, which was suggested to be due to hemodynamically significant stenosis in the left bulb. Seema Jaquez 09/23/2022 01:11:23 PM >received today, attachments made, referral faxed Janae Fulton 09/29/2022 02:11:56 PM > Patient is scheduled on 10/09 at 10 a.m. at [facility] Clinical Notes Mr. Hooper is being r eferred for further evaluation and treatment of left carotid artery stenosis. He has multiple risk factors, including HTN, HLD, DM and PAD. He has no history of TIA or CVA. He denies diplopia, loss of vision, dysarthria, facial droop or unilateral extremity weakness. F: [id number] [employer] Other Summary Purpose Family History No Family History Records Found Relationship Condition Age at Onset Recorded Date/T devonte brother Malignant neoplasm Unknown Diabetes mellitus Unknown father Diabetes mellitus Unknown Not Specified Heart disease Unknown Hypertension Unknown Advance Directives No Advanced Directives Records FoundDocuments on File Type Date Recorded Patient Quoter Expl anation Advance Directive(s) 09/24/2021 8:40 AM Advance Directive(s) 06/07/2021 10:19 AM Advance Directive(s) 05/15/2021 3:36 PM M ain Documents on File Type Date Recorded Patient Quoter Expl anation Advance Directive(s) 09/24/2021 8:40 AM Advance Directive(s) 06/07/2021 10:19 AM Advance Directive(s) 05/15/2021 3:36 PM M ain Documents on File Type Date Recorded Patient Quoter Expl anation Advance Directive(s) 09/24/2021 8:40 AM Documents on File Type Date Recorded Patient Quoter Expl anation Advance Directive(s) 09/24/2021 8:40 AM Advance Directive Response Recorded Date/ Time Advance Directives No August 05, 2023 12:06pm Reason for Referral Specialty Diagnoses / Procedures Referred By Contac t Referred To Contact CT IMAGING Diagnoses Ventral incisional hernia Procedures CT ABD/PEL WO IVCON CT ABD & PELVIS W/O CONTRAST Jay Gonzalez MD [facility] [place] [address] Ct Imaging Referral ID Status Reason Start Date Expiration Date Visits Requested Visits Authorized [id number] Pending Review Auto-Generat ed Referral 10/10/2022 11/09/2022 1 1 Referral ID Status Reason Start Date Expiration Date V isits Requested Visits Authorized [id number] Closed Auto-Generate d Referral 10/10/2022 11/09/2022 1 1 Specialty Diagnoses / Procedures Referred By Contac t Referred To Contact CT IMAGING Diagnoses Ventral incisional hernia Procedures CT ABD/PEL WO IVCON CT ABD & [place] [address] [place] [address] Ct Imaging Referral ID Status Reason Start Date Expiration Date Visits Requested Visits Authorized [id number] Pending Review Auto-Generat ed Referral 10/16/2022 11/15/2023 1 1 Chief Complaint and Reason for Visit Chief Complaint WMN f/u DL 10-14 day DS 3 month follow up Reason for Visit ASHD (arteriosclerot ic heart disease) Elevated cholesterol NARINDER (generalized anxiety disorder) Obesity Obstructive sleep apnea Primary hypertension [id number] ASHD (arteriosclerotic heart disease) Elevated cholesterol Obstructive sleep apnea Primary hypertension Type 2 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 Type 2 diabetes mellitus with hyperglycemia Additional Source Comments (unrecognized sect ion and content) No Status Records FoundNo Status Records FoundNo Status Records FoundNo Status Records FoundNo Status Records FoundNo Status Records FoundNo Status Records FoundNo Status Records FoundNo Status Records Found INFORMATION SOURCE (unrecogn ized section and content) DATE CREATED AUTHOR 03/11/[address] [facility] DATE CREATED AUTHOR AUTHOR'S ORGANIZ ATION 10/13/2022 [facility] DATE CREATED AUTHOR AUTHOR'S ORGANIZ ATION 12/29/2022 [facility] DATE CREATED AUTHOR AUTHOR'S ORGANIZ ATION 12/29/2022 [facility] DATE CREATED AUTHOR AUTHOR'S ORGANIZ ATION 04/26/2023 [facility] DATE CREATED AUTHOR AUTHOR'S ORGANIZ ATION 08/12/2023 [facility] DATE CREATED AUTHOR AUTHOR'S ORGANIZ ATION 10/29/2023 [facility] DATE CREATED AUTHOR AUTHOR'S ORGANIZ ATION 12/16/2023 [facility] DATE CREATED AUTHOR AUTHOR'S ORGANIZ ATION 12/21/2023 [facility] Source Comments (unrecognize d section and content) In the event this informatio n is protected by the Federal Confidentiality of Alcohol and Drug Abuse Patient Records regulations: The Federal rules restrict any use of the information to criminally investigate or prosecute any alcohol or drug abuse patient.[facility] the event this information is protected by the Federal Confidentiality of Alcohol and Drug Abuse Patient Records regulations: The Federal rules restrict any use of the information to criminally investigate or prosecute any alcohol or drug abuse patient.[facility] the event this information is protected by the Federal Confidentiality of Alcohol and Drug Abuse Patient Records regulations: The Federal rules restrict any use of the information to criminally investigate or prosecute any alcohol or drug abuse patient.[facility] Hospital[facility] the event this information is protected by the Federal Confidentiality of Alcohol and Drug Abuse Patient Records regulations: The Federal rules restrict any use of the information to criminally investigate or prosecute any alcohol or drug abuse patient.[facility] Hospital[facility] the event this information is protected by the Federal Confidentiality of Alcohol and Drug Abuse Patient Records regulations: The Federal rules restrict any use of the information to criminally investigate or prosecute any alcohol or drug abuse patient.[facility] Hospital[facility] the event this information is protected by the Federal Confidentiality of Alcohol and Drug Abuse Patient Records regulations: The Federal rules restrict any use of the information to criminally investigate or prosecute any alcohol or drug abuse patient.[facility] HospitalIn the event this information is protected by the Federal Confidentiality of Alcohol and Drug Abuse Patient Records regulations: The Federal rules restrict any use of the information to criminally investigate or prosecute any alcohol or drug abuse patient.[facility] Hospital[facility] the event this information is protected by the Federal Confidentiality of Alcohol and Drug Abuse Patient Records regulations: The Federal rules restrict any use of the information to criminally investigate or prosecute any alcohol or drug abuse patient.[facility] Hospital[facility] the event this information is protected by the Federal Confidentiality of Alcohol and Drug Abuse Patient Records regulations: The Federal rules restrict any use of the information to criminally investigate or prosecute any alcohol or drug abuse patient.[facility] Reason for Visit (unrecogniz ed section and content) Reason Comments Follow Up Reason Comments Follow Up Reason Onset Date Comments Research 10/11/2021 Reason Comments Established Patient Follow-Up Reason Comments Patient Question Specialty Diagnoses / Procedures Referred By Olegario gonsalves Referred To Contact CT IMAGING Diagnoses Ventral incisional hernia Procedures CT ABD/PEL WO IVCON CT ABD & PELVIS W/O CONTRAST Jay Gonzalez MD [address] [place] [address] Ct Imaging Referral ID Status Reason Start Date Expiration Date V isits Requested Visits Authorized [id number] Closed Auto-Generate d Referral 10/10/2022 11/09/2022 1 1 Reason Comments Follow Up 1 year, ventral inci sional hernia Care Teams (unrecognized sec tion and content) Dials Supervisor Relationship Specialty Start Date End Date Juancarlos Cuenca DO PCP - General Internal Medicine 10/23/[address] [phone] Cardiology 09/13/21 Dials Supervisor Relationship Specialty Start Date End Date Juancarlos Cuenca DO PCP - General Internal Medicine 10/23/14 [facility] [address] [place] [phone] Cardiology 09/13/21 Dials Supervisor Relationship Specialty Start Date End Date Juancarlos Cuenca DO PCP - General Internal Medicine [facility]23/[facility] [address] [place] [phone] Cardiology 09/13/21 Dials Supervisor Relationship Specialty Start Date End Date Juancarlos Cuenca DO PCP - General Internal Medicine 10/23/14 Pedro Richardson MD Cardiology 09/13/21 Dials Supervisor Relationship Specialty Start Date End Date Juancarlos Cuenca DO PCP - General Internal Medicine 10/23/14 Pedro Richardson MD Cardiology 09/13/21 Dials Supervisor Relationship Specialty Start Date End Date Juancarlos Cuenca DO PCP - General Internal Medicine 10/23/14 Pedro Richardson MD Cardiology 09/13/21 Dials Supervisor Relationship Specialty Start Date End Date Juancarlos Cuenca DO PCP - General Internal Medicine 10/23/14 Pedro Richardson MD Cardiology 09/13/21 Dials Supervisor Relationship Specialty Start Date End Date Juancalros Cuenca DO PCP - General Internal Medicine 10/23/14 Pedro Richardson MD Cardiology 09/13/21 Dials Supervisor Relationship Specialty Start Date End Date Juancarlos Cuenca DO PCP - General Internal Medicine 10/23/14 Pedro Richardson MD Cardiology 09/13/21 Team Status: Active Member Role Status Dates Juancarlos Cuenca DO Primary Care Provider Active Team Status: Active Member Role Status Dates Juancarlos Cuenca DO Primary Care Provide r, Attending Provider Active Start: October 09, 2023 Team Status: Inactive Member Role Status Dates Juancarlos Cuenca DO Primary Care Provider Active Start: November 04, 2023 End: November 04, 2023 Jory Cee APRN Attending Provider Active Start: November 04, 2023 End: November 04, 2023 Team Status: Inactive Member Role Status Dates Juancarlos Cuenca DO Primary Care Provider Active Start: November 17, 2023 End: November 17, 2023 Jimbo Arizmendi RN Attending Provider Active St art: November 17, 2023 End: November 17, 2023 Team Status: Inactive Member Role Status Dates Juancarlos Cuenca DO Primary Care Provide r, Attending Provider Active Start: December 08, 2023 End: December 08, 2023 Goals (unrecognized section and content) Goals may be documented in a n alternate section FOR RECORDS PERTAINING TO PATIENTS WHO ARE [...] BE BASED ON THE PRIMARY CLINICAL RECORDS. [employer] provides no warranty or guarantee of the accuracy or completeness of information in this document.
--- NOTE | 2024-03-23 11:11 | P.CN_ITS ---
Consult Note: HPI Data of Consult Patient: known to practice within the last 3 years Consult date: 07/27/23 Requesting Physician: Teri Fisher NP Primary Care Provider: Juancarlos Gan DO Consult Narrative Reason for consult: Left knee, low back pain Narrative: 77yom who presents for management of chronic low back and left knee pain. Today pain 3/10 in low back, increases to 8/10 with activity and walking. Left knee pain 8/10 increasing to 10/10 with standing and weight bearing. Pain improved with sitting. Patient reports moderate ongoing relief from past left knee injection greater than 6 months, however 1 month ago he noticed increase in pain and swelling to left knee. Patient denies numbness, tingling, weakness of BLE. Prior bilateral L4-5 L5-S1 facet RFA provided >50% improvement in pain greater than 6 months. Patient finds benefit to PRN baclofen, tylenol, and tramadol. cc:: CC: Teri Fisher NP Review of Systems 2 ROS0 Status of ROS 10 or more systems reviewed and unremark able except as noted in history and below Musculoskeletal Reports: back pain, extremity pain and joint pain PFSH PFSH Medical History History of shingles ?Z86.19 - Personal history of other infectious and parasitic diseases (ICD- 10) Osteoarthritis ?M19.90 - Unspecified osteoarthritis, unspecified site (ICD-10) Hiatal hernia ?K44.9 - Diaphragmatic hernia without obstruction or gangrene (ICD-10) Acid reflux ?K21.9 - Gastro-esophageal reflux disease without esophagitis (ICD-10) Carpal tunnel syndrome ?G56.00 - Carpal tunnel syndrome, unspecified upper limb (ICD-10) Hearing deficit ?H91.90 - Unspecified hearing loss, unspecified ear (ICD-10) High cholesterol ?E78.00 - Pure hypercholesterolemia, unspecified (ICD-10) Heart murmur ?R01.1 - Cardiac murmur, unspecified (ICD-10) Surgical History Hx of hernia repair ?Z98.890 - Other specified postprocedural states (ICD-10) ?Z87.19 - Personal history of other diseases of the digestive system (ICD-10) H/O total hip arthroplasty ?Z96.649 - Presence of unspecified artificial hip joint (ICD-10) H/O ventral hernia repair ?Z98.890 - Other specified postprocedural states (ICD-10) ?Z87.19 - Personal history of other diseases of the digestive system (ICD-10) Stented coronary artery ?Z95.5 - Presence of coronary angioplasty implant and graft (ICD-10) History of atherectomy ?Z98.890 - Other specified postprocedural states (ICD-10) H/O hemicolectomy ?Z90.49 - Acquired absence of other specified parts of digestive tract (ICD- 10) H/O cystoscopy ?Z98.890 - Other specified postprocedural states (ICD-10) S/P CABG x 4 ?Z95.1 - Presence of aortocoronary bypass graft (ICD-10) Meds Home Medications and Allergies Home Medications ?Medication ?Instructions ?Recorded ?Confirmed ?Type aspirin 81 mg tablet,delayed 81 mg PO DAILY 12/26/22 08/03/23 History release (Adult Aspirin Regimen) atorvastatin 80 mg tablet 80 mg PO DAILY 12/26/22 08/03/23 History calcium carbonate 500 mg-vitamin 1 tab PO DAILY 12/26/22 08/03/23 History D3 10 mcg (400 unit) tablet carvedilol 25 mg tablet 12.5 mg PO Q12H 12/26/22 08/03/23 History cholecalciferol (vitamin D3) 50 2,000 unit PO DAILY 12/26/22 08/03/23 History mcg (2,000 unit) tablet cinnamon bark 500 mg capsule 1,000 mg PO DAILY 12/26/22 08/03/23 History (Cinnamon) clopidogrel 75 mg tablet 75 mg PO DAILY 12/26/22 08/03/23 History glipizide 5 mg tablet 10 mg PO BID 12/26/22 08/03/23 History hydrochlorothiazide 25 mg tablet 25 mg PO DAILY 12/26/22 08/03/23 History lisinopril 20 mg tablet 30 mg PO DAILY 12/26/22 08/03/23 History multivitamin 1 tab PO DAILY 12/26/22 08/03/23 History omega-3 fatty acids 1,000 mg 1,000 mg PO DAILY 12/26/22 08/03/23 History capsule pantoprazole 40 mg tablet,delayed 40 mg PO QAM 12/26/22 08/03/23 History release vitamin B complex 1 tab PO DAILY 12/26/22 08/03/23 History zinc acetate 50 mg (zinc) capsule 50 mg PO DAILY 12/26/22 08/03/23 History ondansetron 4 mg disintegrating 4 mg PO Q8H PRN nausea and 05/03/23 08/03/23 Rx tablet vomiting 4 days #10 tabs amlodipine 5 mg tablet 5 mg PO QDAY 06/05/23 08/03/23 History hyoscyamine sulfate 0.125 mg 0.125 mg PO Q6H PRN abdominal pain 06/05/23 08/03/23 Rx tablet (Levsin) #12 tabs ondansetron 4 mg disintegrating 4 mg PO Q6H PRN nausea and 06/05/23 Rx tablet vomiting #12 tabs baclofen 10 mg tablet 10 mg PO BEDTIME PRN muscle spasm 08/03/23 08/03/23 History diazepam 10 mg tablet (Valium) 10 mg PO ONCE PRN sedation 08/03/23 08/03/23 History tramadol 50 mg tablet 50 mg PO DAILY PRN pain #7 tabs 09/02/23 Rx tramadol 50 mg tablet 50 mg PO DAILY PRN pain, severe 03/23/24 Rx #30 tabs Allergies Allergy/AdvReac Type Severity Reaction Status Date / Time No Known Drug Allergies Allergy Verified 08/03/23 08:16 Exam Constitutional Documenting provider has reviewed patient's vital signs: yes Common normals: no apparent distress, oriented x3, healthy appearing, alert and well nourished General appearance: cooperative [facility] Common normals: normocephalic, hearing grossly normal bilaterally and moist oral mucous membranes Head and scalp: normocephalic Eye Common normals: PERRL Pupil: PERRL Neck & C-Spine Common normals: full ROM General: normal visual inspection Chest Common normals: inspection of chest normal Respiratory Common normals: normal respiratory effort, no retractions and no use of accessory muscles Back & Pelvis Lumbar spine/lower back: ROM limited, pain with ROM and straight leg raise negative bilaterally Other: bilateral facet loading positive strength 5/5 in BLE sensation intact BLE Extremity Left lower extremity: knee joint Other: chronic edema, mild to moderate crepitus, pain with medial and lateral stress testing. significant pain upon palpation of areas noted below, new onset over the last month Extremity image (front): 2 1. new onset pain/edema 2. radiating pain from left medial knee to thigh/groin Neuro Common normals: oriented x3, CN's II-XII intact bilaterally, moves all extremities, no focal motor deficits, no sensory deficits noted and deep tendon reflexes 2+ bilaterally Sensorium/orientation: alert Motor exam: strength 5/5 throughout and no movement abnormalities noted Psych Common normals: mental status grossly normal, thought process normal, cooperative, affect normal, speech normal and activity/motor behavior normal Speech: normal speech Thought process: normal thought process Results Additional Findings Additional findings: If on a controlled substance or opioids, I have checked an [place] report on this patient and there are no aberrancies noted in the prescribing history.??If on a controlled substance or opioid a drug screen was completed and reviewed within the last year, and if there has not been a drug screen completed we ordered one today to monitor higher risk, state monitored pain medication use. As part of providing excellent, safe, comprehensive care, the following was completed at our patient's visit: 1. A medication reconciliation and review to ensure accurate knowledge of current/active medications, including asking our patients to inform us about any ubor-iye-jicnztq medications or herbal remedies/nutritional supplements/alternative remedies. 2. A review to specifically ensure our patients have had annual screening for screening for depression, screening for tobacco use, and screening for unhealthy alcohol use. For concerning screenings had a discussion with the patient, provided patient education, and recommended follow-up with primary care provider when appropriate. If patient noted with a risk of falling, they received education on strength, gait, and balance training to prevent future risk of falling. Assessment and Plan Assessment and Plan (1) Left knee pain: Assessment and Plan: new onset of medial pain/swelling to left knee, update xray of left knee and refer to orthopedics for further evaluation as I believe the patient has a new issue not related to his chronic OA/OA pain. defer durolane injection at this time (2) Osteoarthritis of left knee: (3) Osteoarthritis, hip, bilateral: (4) Lumbar spondylosis: (5) Muscle spasm: (6) Chronic prescription opiate use: Plan repeat bilateral L4-5 L5-S1 facet RFA with 10mg PO valium 30-60 mins prior to procedure, to be completed under fluoroscopy. risks vs benefits reviewed. prior bilateral L4-5 L5-S1 RFA provided >50% improvement greater than 6 months continue current medications update UDS today f/u 1 month after RFA complete
== END 2024-03-23 10:37 | disposition home or self-care (01) ==
LOC: PM 10:37
PROVIDERS: PCP Internal Medicine; Visit Provider Nurse Practitioner
DX: M25.562 Pain in left knee (principal); M17.12 Unilateral primary osteoarthritis, left knee; M16.0 Bilateral primary osteoarthritis of hip; M47.816 Spondylosis without myelopathy or radiculopathy, lumbar region; M62.838 Other muscle spasm; Z79.891 Long term (current) use of opiate analgesic
CPT/HCPCS: 73564; G0463

== ENCOUNTER 2024-03-23 11:37 | Outpatient (OUT) | payer MEDICARE, SELFPAY ==
--- NOTE | 2024-03-23 11:45 | XR_ITS ---
The [address] [address] Patient Name: LIZZY BURK MRN: [id number] date: 1945 Sex: M Assigned Patient Location: RAD Current Patient Location: [facility] Accession/Order Number: [id number] Exam Date: 03/23/2024 11:55 Report Date: 03/23/2024 15:27 At the request of: PERRI DEL ANGEL Procedure: XR knee LT 4V EXAM: Left knee HISTORY: . Left Knee Osteoarthritis . COMPARISON: None. TECHNIQUE: 4 views FINDINGS: There is moderate narrowing of the medial joint compartment. Sclerosis of the medial tibial plateau and medial femoral condyle is noted. Hypertrophic spurs are noted involving the knee joint. Hypertrophic spurs are noted involving the patellofemoral joint. Vascular calcifications are noted posteriorly. Surgical clips are noted in the soft tissues posterior medially at the level of the proximal tibia. No definite joint effusion is noted. XR/XR knee LT 4V IMPRESSION: Moderate to marked osteoarthritic changes of the left knee particularly involving the medial joint compartment and patellofemoral joint. Electronically authenticated by: LANA BINGHAM Date: 03/23/2024 15:27
== END 2024-03-23 11:38 | disposition home or self-care (01) ==
LOC: RAD 11:38
PROVIDERS: PCP Internal Medicine; Visit Provider Nurse Practitioner
DX: M17.12 Unilateral primary osteoarthritis, left knee (principal)
CPT/HCPCS: 73564

== ENCOUNTER 2024-04-11 08:26 | Day surgery (SDC) | payer MEDICARE, SELFPAY ==
--- OUTSIDE RECORDS SUMMARY | 2024-04-11 08:46 | XMS_ITS | CCD ---
Author Organization [facility] Care Team Providers Care Cuffing Machine Operator Name Role Phone JUANCARLOS CUENCA Referring Unavailable JUANCARLOS CUENCA Primary Care Unavailable Delonte Webb Admitting Unavailable Delonte Webb Attending Unavailable JUANCARLOS CUENCA Referring Unavailable TY AVALOS Surgeon Unavailable TY AVALOS Admitting Unavailable JUANCARLOS CUENCA Primary Care Unavailable TY AVALOS Attending Unavailable CT Procedure Practitioner UnavailJuancarlos Hollins DO Primary Care Provider Pedro Richardsonmed Unavailable Dylan VANESSA, ab Ahmed Unavailable JUANCARLOS CUENCA Primary Care Physician Juancarlos Cuenca Unavailable Juancarlos Cuenca DO Primary Care Provider Dylan VANESSA, Ahmed Unavailable [phone] JAY GONZALEZ Referring Unavailable JUANCARLOS CUENCA Primary [...] Attending Unavailable JUANCARLOS CUENCA Primary Care Unavailable Bang, Juancarlos Attending Unavailable Bang, Juancarlos Primary Care Unavailable Bang, Juancarlos Admitting Unavailable ANGELA BINGHAM Attending Unavailable JOANNA ORTEGA Attending Unavailable OTILIA, ANGELA Gonzalez Attending Unavailable ANGELA BINGHAM Attending Unavailable Allergies Allergy Classification Reported Allergen(s) Allergy Type Date of Onset Reaction(s) Facility (20 sources) Morphine; Translations: [morphine] Drug Allergy Unknown [facility] Repository (1 source) Morphine Drug Allergy 12-08-2023 [facility] Repository Medications Current Medications Medication Drug [...] Status: Ordered take 1 tablet by mansoor every other day hydroCHLOROthiazide 25 MG 1 [...] CPAP (9 sources) CPAP daily at be dtica. 0 Active Comment on above: daily at bedtime. docosahexaenoic acid/epa (FISH OIL ORAL) (9 sources) docosahexaenoic acid/epa (FISH OIL ORAL) Take by mouth once daily. 0 Active Comment on above: Take by mouth once d aily. gabapentin 100 mg oral capsule (20 sources) Anti-epileptic Agent Start: End: 4 take 100 mg by mouth once daily Gabapentin Discontinued 100 MG PO Daily September 07, 2023 1:00am November 04, 2023 10:53am take 1 capsule by mo [facility] every twenty-four hours Gabapentin 100 MG 1 [...] 04, 2023 10:54am [facility] [address] [facility] Meclizine HCl 25 [...] on above: Take 1 capsule by mo [facility] once daily. Vitamin B Complex (9 sources) [...] Coronary arteriosclerosis; Translations: [Atherosclerotic heart disease of [place] coronary artery without angina pectoris] Onset: 05-19-2022 [...] aftercare (9 sources) 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; Translations: [long-term (current) use of antithrombotics/antip latelets] 09-13-2021 Episodic [...] and visceral atherosclerosis (19 sources) Atherosclerosis of [place] arteries of extremities with rest pain, right [...] without hemorrhage] Other aftercare (3 sources) Other custodial (current) drug therapy; Translations: [OTH LONGTERM CURRENT DRUG THERAPY] Onset: 09-17-2022 Episodic Other and unspecified benign neoplasm (12 sources) Polyp of colon; Translations: [Polyp of colon] Onset: 06-07-2021 06-07-2021 Episodic Unclassified (1 source) LOW BACK PAIN, UNSPECIFIED; Translations: [LOW BACK PAIN, UNSPECIFIED] Onset: 04-24-2022 Results Test Name Value Interpretation Reference Range Facility [facility] 10-27-2023 [facility] Telephone ([facility]) LIZZY YEE ([id number]) 1945 M Date Time Provider Department 10/27/23 JAY GONZALEZ [facility] During your visit today, we [...] Patient and or can be reached at [phone]. Thank you. Efrain Loza RN 10/28/2023 8:30 [...] Encounter Status:Closed by EFRAIN ZAMARRIPA on 10/28/23 [facility] CNOVon 10-15-2023 CN Office Visit ([facility] ) LIZZY YEE ([id number]) 1945 M Date Time Provider Department 10/15/23 1:00 PM JAY GONZALEZ [facility] During your visit today, we recorded the following information about you: Temperature Pulse Blood pressure 97.3 degrees 53/minute 127/65 Jay Gonzalez MD 10/15/2023 1:[address] [facility] Abdominal Core Health - Follow Up Visit [...] trying to work on this with his fwith a little weight loss over the last [...] Gonzalez MD 10/15/23, 1:38 PM General Surgery [facility] Medical Decision Making: Problems: Low: Stable [...] HLD (hyperlipidemi (more content not included)... Normal [facility] Cholesterol in LDL Calc [Mas s/Vol]on 10-09-2023 Cholesterol in LDL [Mass/Vol] 46.6 mg/dL [facility] Comment on above: <100 mg/dl [id number] 0-129 mg/dl NEAR OR ABOVE [id number] mg/dl BORDERLINE [id number] mg/dl HIGH>190 mg/dl VERY HIGH Cholesterol in VLDL Calc [Ma ss/Vol]on 10-09-2023 Cholesterol in VLDL [Mass/Vol] 14.4 mg/dL [facility] Estimated glomerular filtrat ion rate (GFR) non- Americanon 10-09-2023 GFR/1.73 sq M.predicted among non-blacks MDRD (S/P/Bld) [Vol rate/Area] 54 mL/min/{1.73_m2} >=60 [facility] Globulin Calc (S) [Mass/Vol] on 10-09-2023 Globulin (S) [Mass/Vol] 3.9 g/dL [facility] Glucose mean value [Mass/vol ume] in Blood Estimated from glycated hemoglobinon 10-09-2023 Average glucose Estimated from glycated hemoglobin (Bld) [Mass/Vol] 186 mg/dL [facility] Laboratory - Chemistry and C hemistry - challengeon 10-09-2023 Albumin [Mass/Vol] 3.4 g/dL 3.4-5.0 [facility] ALP [Catalytic activity/Vol] 210 U/L 46-116 [facility] ALT [Catalytic activity/Vol] 236 U/L 16-63 [facility] AST [Catalytic activity/Vol] 169 U/L 15-37 [facility] Bilirubin [Mass/Vol] 0.8 mg/dL 0.2-1.0 [facility] Calcium [Mass/Vol] 9.1 mg/dL 8.5-10.1 [facility] Chloride [Moles/Vol] 101 mmol/L 98-107 [facility] Cholesterol [Mass/Vol] 107 mg/dL <=200 [facility] Cholesterol in HDL [Mass/Vol] 46 mg/dL 40-60 [facility] Comment on above: > or =60 mg/dl - LOW CARDIOVASCULAR RISK<40 mg/dl - HIGH CARDIOVASCULAR RISK CO2 [Moles/Vol] 28.4 mmol/L 21.0-32.0 [facility] Creatinine [Mass/Vol] 1.29 mg/dL 0.70-1.30 [facility] GFR/1.73 sq M.predicted MDRD (S/P/Bld) [Vol rate/Area] mL/min/{1.73_m2} >=60 [facility] Glucose [Mass/Vol] 100 mg/dL 74-106 [facility] Potassium [Moles/Vol] 4.1 mmol/L 3.5-5.1 [facility] Protein [Mass/Vol] 7.3 g/dL 6.4-8.2 [facility] Sodium [Moles/Vol] 140 mmol/L 136-145 [facility] Triglyceride [Mass/Vol] 72 mg/dL <=150 [facility] Urea nitrogen [Mass/Vol] 23.0 mg/dL 7.0-18.0 [facility] Urea nitrogen/Creatinine [Mass ratio] 17.8 mg/mg [facility] Laboratory - Hematology and Cell countson 10-09-2023 HbA1c (Bld) [Mass fraction] 8.1 % 4.5-6.2 [facility] Comment on above: ADA RECOMMENDED LIMI T 4.0 - 6.0ADA THERAPEUTIC TARGET < 7.0ACTION SUGGESTED> 7.0 Microalbumin [Mass/volume] i n Urineon 10-09-2023 Albumin DL <= 20 mg/L (U) [Mass/Vol] mg/dL <=30.0 [facility] No Panel Informationon 10-08 Prostate Specific Antigen Screen 0.27 ng/mL <=4.00 [facility] Serum or plasma albumin/glob ulin mass ratioon 10-09-2023 Albumin/Globulin [Mass ratio] 0.9 {ratio} [facility] Serum or plasma anion gap de terminationon 10-09-2023 Anion gap [Moles/Vol] 14.7 mmol/L [facility] Serum or plasma total choles terol/high density lipoprotein (HDL) cholesterol mass venu 10-09-2023 Cholesterol.total/Cho lesterol in HDL [Mass ratio] 2.3 {ratio} [facility] Comment on above: 3.3 - 4.4 LOW RISK4. 4 - 7.1 AVERAGE RISK7.1 - 11.0 MODERATE RISK>11.0 HIGH RISK Office Visiton 04-22-2023 Follow-up visit [id number] Vu Yee 1945 M Date Provider Department Center 04/22/2023 [facility] Family History Problem Relation Age of Onset Coronary artery disease Mother Coronary artery disease Brother Family Status - Relation Status Age at Mother Brother Level of Service:58147 CT OFFICE/OUTPATIENT ESTABLISHED LOW MDM 20-29 MIN Normal [facility] Outside Colonoscopyon 2022 Outside Colonoscopy [id number] 0CD:127 Normal [facility] Reminderson 12-18-2022 Reminders - From: Amy Menon LPN To: GSN - Clinical; Sent: 12/18/2022 12:06:16 EDT Show up: 11/16/2025 07:00:00 EDT Subject: colonoscopy recall Due Date/Time: 12/17/2025 07:00:00 EDT Reminder/Recall Patient due for surveillance colonoscopy 12/17/2025. Normal [facility] POINT OF CARE GLUCOSEon 11-19 Glucose [Mass/Vol] 176 mg/dL Critically high 74-106 [facility] Comment on above: Performed By: #### P OCGLUC #### [facility] [address] [address] [address] Rojelio Kingsley POINT OF CARE GLUCOSEon 11-19 Glucose [Mass/Vol] 157 mg/dL Critically high 74-106 [facility] Comment on above: Performed By: #### P OCGLUC #### [facility] [address] [address] [address] Rojelio Kingsley Consent for Procedure/Surger yon 12-03-2022 Consent for Procedure/Surgery [id number] 0CD:127 Normal [facility] Physician Referralon 023 Physician Referral [id number] 0CD:127 Normal [facility] General Surgery Office/Clini c Noteon 12-02-2022 [...] anastomosis and ventral hernia repair 09/2021 at [facility], they recommend yearly surveillance sigmoidoscopies; patient [...] 1 tab(s), (more content not included)... Normal [facility] Comment on above: Result Comment: Elec tronically Signed By: PELON VANESSA, Nya Avila.marion\Date and Time Signed: 12/02/22 11:37 EDT POINT OF CARE GLUCOSEon -2 Glucose [Mass/Vol] 121 mg/dL Critically high 74-106 [facility] Comment on above: Performed By: #### P OCGLUC #### [facility] [address] [address] [address] [facility]jel[facility] Kings[facility] HNO ID: [id number] Author: RT Marisa(R) Service: Radiology Author Type: [...] Romo RT(R) October 11, 2022 10:[address] [facility] [address] ABD/PEL WO IVCONon 2022 CT [...] site. Lower thorax: Lower lungs are clear. Marketing Operations Consultant (topogram) images: Unremarkable. IMPRESSION: Midline fat-containing upper abdominal hernia. Fiber Design Engineer: DANIEL Transcribe Date/Time: Oct 13 2022 7:57A Dictated by : YANICK RIVAS MD This examination was interpreted and the report reviewed and electronically signed by: YANICK RIVAS MD on Oct 13 2022 8:06AM EST [id number] Normal [facility] Consent for Procedure/Surger yon 09-17-2022 Consent for Procedure/Surgery [id number] 0CD:127 Normal [facility] RAD - Ultrasound Reporton RAD - Ultrasound Report [id number] 0CD:127 Normal [facility] Ambulatory Visit Summaryon 0 09-16-2022 Ambulatory [...] no longer receiving treatment for. Hyperlipidemia Normal [facility] Ambulatory Visit Summary LIZZY YEE :1945 [...] no longer receiving treatment for. Hyperlipidemia Normal [facility] General Surgery Office/Clini c Noteon 09-16-2022 [...] anastomosis and ventral hernia repair 09/2021 at [facility]; requires yearly flexible sigmoidoscopy for surveillance. [...] Oral, Nathalie (more content not included)... Normal [facility] Comment on above: Result Comment: Elec tronically Signed By: PELON VANESSA, Nya Nicholson\Date and Time Signed: 09/16/22 11:17 EST Alanine Aminotransferaseon 0 - ALT [Catalytic activity/Vol] 30 U/L Normal 16-63 [facility] Other Comment on above: Performed By: #### B MP, ALT, LIPID #### [facility] [address] [address] [address] Rojelio Kingsley Basic Metabolic Panelon 08-21 Calcium [Mass/Vol] 9.7832692 mg/dL 8.5-10 .1 mg/dL [facility] Other CO2 [Moles/Vol] 25.73274939 mmol/L 21.0-3 2.0 mmol/L [facility] Other Creatinine [Mass/Vol] 1.69224469 mg/dL Critically high 0.70-1.30 mg/dL [facility] Other Potassium [Moles/Vol] 4.20315495 mmol/L 3 .5-5.1 mmol/L [facility] Other Urea nitrogen [Mass/Vol] 16.2437950 mg/dL 7.0-18.0 mg/dL [facility] Other Basic Metabolic Panel see note Nor [email or web address] Other Basic Metabolic Panel 141 mmol/L 136-14 5 mmol/L [facility] Other Basic Metabolic Panel 134 mg/dL Critically high 74-106 mg /dL [facility] Other Basic Metabolic Panel 51 mL/min/1.73m2 Critically low >=60 mL/min/1.73m 2 [facility] Other Basic Metabolic Panel >60 mL/min/1.73m2 > =60 mL/min/1.73m 2 [facility] Other Anion gap [Moles/Vol] 15.2 mmol/L [facility] Other Comment on above: Performed By: #### B MP, ALT, LIPID #### [facility] [address] [place] [address] Dr. Rojelio Kingsley Chloride [Moles/Vol] 105 mmol/L Normal 98-107 [facility] Other Comment on above: Performed By: #### B MP, ALT, LIPID #### [facility] [address] [place] [address] Dr. Rojelio Kingsley Urea nitrogen/Creatinine [Mass ratio] 11.8 mg/mg Normal [facility] Other Comment on above: Performed By: #### B MP, ALT, LIPID #### [facility] [address] [place] [address] Dr. Rojelio Kingsley CBC AUTO DIFFon 09-12-2022 BASO # 0.0 103/ul Normal 0.0-0.1 [facility] Comment on above: Performed By: #### C BC #### [facility] [address] [place] [address] Dr. Rojelio Kingsley Basophils/100 WBC (Bld) 0.4 % Normal 0.2-2.0 [facility] Comment on above: Performed By: #### C BC #### [facility] [address] [place] [address] Dr. Rojelio Kingsley EO # 0.3 103/ul Normal 0.0-0.7 [facility] Comment on above: Performed By: #### C BC #### [facility] [address] [place] [address] Dr. Rojelio Kingsley Eosinophils/100 WBC (Bld) 3.6 % Normal 0.9-7.0 [facility] Comment on above: Performed By: #### C BC #### [facility] [address] [place] [address] Dr. Rojelio Kingsley Erythrocyte distribution width (RBC) [Ratio] 14.1 % Normal 11.0-15.0 [facility] Comment on above: Performed By: #### C BC #### [facility] [address] [place] [address] Dr. Rojelio Kingsley Hematocrit (Bld) [Volume fraction] 40.1 % Critically low 42.0-54.0 [facility] Comment on above: Performed By: #### C BC #### [facility] [address] [place] [address] Dr. Rojelio Kingsley Hemoglobin (Bld) [Mass/Vol] 13.4 g/dL Critically low 14.0-18.0 [facility] Comment on above: Performed By: #### C BC #### [facility] [address] [place] [address] Dr. Rojelio Kingsley IG # 0.02 10e3/ul Normal 0.00-0.03 [facility] Comment on above: Performed By: #### C BC #### [facility] [address] [place] [address] Dr. Rojelio Kingsley IG % 0.2 % Normal 0.0-0.5 [facility] Comment on above: Performed By: #### C BC #### [facility] [address] [place] [address] Dr. Rojelio Kingsley LYMPH # 1.8 103/ul Normal 1.2-3.8 [facility] Comment on above: Performed By: #### C BC #### [facility] [address] [place] [address] Dr. Rojelio Kingsley Lymphocytes/100 WBC (Bld) 21.9 % Normal 20.5-60.0 [facility] Comment on above: Performed By: #### C BC #### [facility] [address] [place] [address] Dr. Rojelio Kingsley MANUAL DIFF REQ NO Normal [facility] Comment on above: Performed By: #### C BC #### [facility] [address] [place] [address] Dr. Rojelio Kingsley MCH (RBC) [Entitic mass] 30.6 pg Normal 25.9-34.0 [facility] Comment on above: Performed By: #### C BC #### [facility] [address] [address] [address] Rojelio Kingsley MCHC (RBC) [Mass/Vol] 33.4 g/dL Normal 29.9-35.2 [facility] Comment on above: Performed By: #### C BC #### [facility] [address] [address] [address] Rojelio Kingsley MCV (RBC) [Entitic vol] 91.6 fL Normal 80.0-94.0 [facility] Comment on above: Performed By: #### C BC #### [facility] [address] [place] [address] Dr. Rojelio Kingsley MONO # 0.8 103/ul Normal 0.3-0.8 [facility] Comment on above: Performed By: #### C BC #### [facility] [address] [place] [address] Dr. Rojelio Kingsley Monocytes/100 WBC (Bld) 9.3 % Normal 1.7-12.0 [facility] Comment on above: Performed By: #### C BC #### [facility] [address] [place] [address] Dr. Rojelio Kingsley NEUT # 5.4 103/ul Normal 1.4-6.5 [facility] Comment on above: Performed By: #### C BC #### [facility] [address] [place] [address] Dr. Rojelio Kingsley Neutrophils/100 WBC (Bld) 64.6 % Normal 43.0-75.0 [facility] Comment on above: Performed By: #### C BC #### [facility] [address] [place] [address] Dr. Rojelio Kingsley Platelet mean volume (Bld) [Entitic vol] 10.3 fL Normal 9.5-13.5 [facility] Comment on above: Performed By: #### C BC #### [facility] [address] [place] [address] Dr. Rojelio Kingsley PLT 214 103/ul Normal 150-450 [facility] Comment on above: Performed By: #### C BC #### [facility] [address] [address] [address] Rojelio Kingsley RBC 4.38 106/ul Critically low 4.70-6.10 [facility] Comment on above: Performed By: #### C BC #### [facility] [address] [address] [address] Rojelio Kingsley WBC 8.4 103/ul Normal 4.0-11.0 [facility] Comment on above: Performed By: #### C BC #### [facility] [address] [place] [address] Dr. Rojelio Kingsley GLYCOHEMOGLOBIN A1Con 2022 ADA RECOMMENDATION SEE BELOW Normal [facility] Comment on above: Result Comment: ADA RECOMMENDED LIMIT 4.0 - 6.0 ADA THERAPEUTIC TARGET < 7.0 ACTION SUGGESTED > 7.0 Performed By: #### P OCGLUC #### [facility] [address] [place] [address] Dr. Rojelio Kingsley Glucose [Mass/Vol] 169 mg/dL Normal [facility] Comment on above: Performed By: #### P OCGLUC #### [facility] [address] [place] [address] Dr. Rojelio Kingsley HbA1c (Bld) [Mass fraction] 7.5 % Critically high 4.5-6.2 [facility] Comment on above: Performed By: #### P OCGLUC #### [facility] [address] [place] [address] Dr. Rojelio Kingsley LIPID PROFILEon 09-12-2022 CHOL-HDL RATIO NORM SEE BELOW Normal [facility] Comment on above: Result Comment: 3.3 - 4.4 LOW RISK 4.4 - 7.1 AVERAGE RISK 7.1 - 11.0 MODERATE RISK >11.0 HIGH RISK Performed By: #### B MP, ALT, LIPID #### [facility] [address] [place] [address] Dr. Rojelio Kingsley Cholesterol in LDL [Mass/Vol] 31.2 mg/dL Normal [facility] Comment on above: Performed By: #### B MP, ALT, LIPID #### [facility] [address] [place] [address] Dr. Rojelio Kingsley HDL NORMAL > or = 60 mg/dl - LO W CARDIOVASCULAR RISK <40 mg/dl - HIGH CARDIOVASCULAR RISK Normal [facility] Comment on above: Performed By: #### B MP, ALT, LIPID #### [facility] [address] [address] [address] Rojelio Kingsley LDL CALC NORMAL SEE BELOW Normal [facility] Comment on above: Result Comment: <100 mg/dl OPTIMAL 100 - 129 mg/dl NEAR OR ABOVE OPTIMAL 130 - 159 mg/dl BORDERLINE HIGH 160 - 189 mg/dl HIGH >190 mg/dl VERY HIGH Performed By: #### B MP, ALT, LIPID #### [facility] [address] [address] [address] Rojelio Kingsley VLDL CALC 40.8 mg/dL Normal [facility] Comment on above: Performed By: #### B MP, ALT, LIPID #### [facility] [address] [address] [address] Rojelio Kingsley Lipid Panelon 09-12-2022 Lipid Panel > or = 60 mg/dl - LO W CARDIOVASCULAR RISK <40 mg/dl - HIGH CARDIOVASCULAR RISK [facility] Other Lipid Panel SEE BELOW [facility] Other Lipid Panel 31.2 mg/dL [facility] Other Lipid Panel 40.8 mg/dL [facility] Other Cholesterol [Mass/Vol] 115 mg/dL Normal <=200 [facility] Other Comment on above: Performed By: #### B MP, ALT, LIPID #### [facility] [address] [address] [address] Rojelio Kingsley Cholesterol in HDL [Mass/Vol] 43 mg/dL Normal 40-60 [facility] Other Comment on above: Performed By: #### B MP, ALT, LIPID #### [facility] [address] [address] [address] Rojelio Kingsley Cholesterol.total/Cho lesterol in HDL [Mass ratio] 2.7 {ratio} Normal [facility] Other Comment on above: Performed By: #### B MP, ALT, LIPID #### [facility] [address] [place] [address] Dr. Rojelio Kingsley Triglyceride [Mass/Vol] 204 mg/dL Critically high <=150 [facility] Other Comment on above: Performed By: #### B MP, ALT, LIPID #### [facility] [address] [place] [address] Dr. Rojelio Kingsley MICROALBUMIN, RAND URon - mALB 2.1 mg/L Normal <=30.0 [facility] Comment on above: Performed By: #### M ALBR #### [facility] [address] [place] [address] Dr. Rojelio Kingsley PROF CHEM 8 (BAS METB)on Calcium [Mass/Vol] 9.6 mg/dL Normal 8.5-10.1 [facility] Comment on above: Performed By: #### B MP, ALT, LIPID #### [facility] [address] [place] [address] Dr. Rojelio Kingsley CO2 [Moles/Vol] 25.1 mmol/L Normal 21.0-32.0 [facility] Comment on above: Performed By: #### B MP, ALT, LIPID #### [facility] [address] [place] [address] Dr. Rojeloi Kingsley Creatinine [Mass/Vol] 1.36 mg/dL Critically high 0.70-1.30 [facility] Comment on above: Performed By: #### B MP, ALT, LIPID #### [facility] [address] [place] [address] Dr. Rojelio Kingsley EGFR-AF MAURITIAN >60 Normal >=60 [facility] Comment on above: Performed By: #### B MP, ALT, LIPID #### [facility] [address] [place] [address] Dr. Rojelio Kingsley EGFR-NON AF MAURITIAN 51 mL/min/1.73m2 Critically low >=60 [facility] Comment on above: Performed By: #### B MP, ALT, LIPID #### [facility] [address] [address] [address] Rojelio Kingsley Glucose [Mass/Vol] 134 mg/dL Critically high 74-106 [facility] Comment on above: Performed By: #### B MP, ALT, LIPID #### [facility] [address] [address] [address] Rojelio Kingsley Potassium [Moles/Vol] 4.3 mmol/L Normal 3.5-5.1 [facility] Comment on above: Performed By: #### B MP, ALT, LIPID #### [facility] [address] [address] [address] Rojelio Kingsley Sodium [Moles/Vol] 141 mmol/L Normal 136-145 [facility] Comment on above: Performed By: #### B MP, ALT, LIPID #### [facility] [address] [address] [address] Rojelio Kingsley Urea nitrogen [Mass/Vol] 16.0 mg/dL Normal 7.0-18.0 [facility] Comment on above: Performed By: #### B MP, ALT, LIPID #### [facility] [address] [address] [address] Rojelio Kingsley US CAROTID ART BILon [...] GABY PADILLA Date: 2022-09-12 15:22 Normal [facility] US CAROTID ART ZHENG [facility] Other Orders Onlyon 07-24-2022 Orders Only [id number] Vu Yee 1945 M Date Provider Department Center 07/24/2022 ZOFIA MARTINO [facility] Family History Problem Relation Age of Onset Coronary artery disease Mother Coronary artery disease Brother Family Status - Relation Status Age at Mother Brother Normal [facility] POINT OF CARE GLUCOSEon 06-19 Glucose [Mass/Vol] 106 mg/dL Normal 74-106 [facility] Comment on above: Performed By: #### P OCGLUC #### [facility] [address] [place], [place] [address] Dr. Rojelio Kingsley Covid-19 PCR ([facility])on SARS-CoV-2 (COVID-19) RNA MITCHELL+probe Ql (Unsp spec) Not detected Normal NOT DETECTED [facility] Comment on above: Result Comment: This test is not yet approved or cleared by the [place] FDA. When there are no FDA-approved or cleared tests available, and other criteria are met, FDA can make tests available under an emergency access mechanism called an Emergency Use Authorization (EUA). The EUA for this test is supported by the [place] of Health and Human Service's (HHS's) declaration [...] SARS-CoV-2. Performed By: #### P OCGLUC #### [facility] [address] [place], [place] [address] Dr. Rojelio Kingsley 29on 05-19-2022 29 Addended by: MARINO MOE on: 05/19/2022 03:14 PM Modules accepted: Level of Service Normal [facility] Follow-Upon 05-19-2022 Follow-Up [id number] Vu Yee 1945 M Date Provider Department Center 05/19/2022 MARINO GRAVES [facility] Family History Problem Relation Age of Onset Coronary artery disease Mother Coronary artery disease Brother Family Status - Relation Status Age at Mother Brother Level of Service:08052 CT OFFICE/OUTPATIENT ESTABLISHED LOW MDM 20-29 MIN Reason for Visit and Comments: Coronary Artery Disease [187] Hypertension [045851] Peripheral Vascular Disease [458] Normal [facility] POINT OF CARE GLUCOSEon 04-20 Glucose [Mass/Vol] 129 mg/dL Critically high 74-106 [facility] Comment on above: Performed By: #### P OCGLUC #### [facility] [address] [place] [address] [address] Rojelio Kingsley POINT OF CARE GLUCOSEon 03-21 Glucose [Mass/Vol] 116 mg/dL Critically high 74-106 [facility] Comment on above: Performed By: #### P OCGLUC #### [facility] [address] [place] [address] [address] Rojelio Kingsley XR LSPINE 2_3 VIEWSon [...] GABY PADILLA Date: 2022-03-05 13:06 Normal [facility] CBC AUTO DIFFon 02-22-2022 BASO # 0.0 103/ul Normal 0.0-0.1 [facility] Comment on above: Performed By: #### P OCGLUC #### [facility] [address] [place] [address] [address] Rojelio Kingsley Basophils/100 WBC (Bld) 0.4 % Normal 0.2-2.0 [facility] Comment on above: Performed By: #### P OCGLUC #### [facility] [address] [place] [address] [address] Rojelio Kingsley EO # 0.3 103/ul Normal 0.0-0.7 [facility] Comment on above: Performed By: #### P OCGLUC #### [facility] [address] [place] [address] [address] Rojelio Kingsley Eosinophils/100 WBC (Bld) 3.0 % Normal 0.9-7.0 [facility] Comment on above: Performed By: #### P OCGLUC #### [facility] [address] [place] [address] [address] Rojelio Kingsley Erythrocyte distribution width (RBC) [Ratio] 14.4 % Normal 11.0-15.0 [facility] Comment on above: Performed By: #### P OCGLUC #### [facility] [address] [place] [address] [address] Rojelio Kingsley Hematocrit (Bld) [Volume fraction] 37.1 % Critically low 42.0-54.0 [facility] Comment on above: Performed By: #### P OCGLUC #### [facility] [address] [place] [address] [address] Rojelio Kingsley Hemoglobin (Bld) [Mass/Vol] 12.2 g/dL Critically low 14.0-18.0 [facility] Comment on above: Performed By: #### P OCGLUC #### [facility] [address] [place] [address] [address] Rojelio Kingsley IG # 0.03 10e3/ul Normal 0.00-0.03 [facility] Comment on above: Performed By: #### P OCGLUC #### [facility] [address] [place] [address] [address] Rojelio Kingsley IG % 0.4 % Normal 0.0-0.5 [facility] Comment on above: Performed By: #### P OCGLUC #### [facility] [address] [place] [address] [address] Rojelio Kingsley LYMPH # 1.8 103/ul Normal 1.2-3.8 [facility] Comment on above: Performed By: #### P OCGLUC #### [facility] [address] [place] [address] [address] Rojelio Kingsley Lymphocytes/100 WBC (Bld) 21.6 % Normal 20.5-60.0 [facility] Comment on above: Performed By: #### P OCGLUC #### [facility] [address] [place] [address] Dr. Rojelio Kingsley MANUAL DIFF REQ NO Normal [facility] Comment on above: Performed By: #### P OCGLUC #### [facility] [address] [place] [address] [address] Rojelio Kingsley MCH (RBC) [Entitic mass] 30.0 pg Normal 25.9-34.0 [facility] Comment on above: Performed By: #### P OCGLUC #### [facility] [address] [place] [address] Dr. Rojelio Kingsley MCHC (RBC) [Mass/Vol] 32.9 g/dL Normal 29.9-35.2 [facility] Comment on above: Performed By: #### P OCGLUC #### [facility] [address] [place] [address] Dr. Rojelio Kingsley MCV (RBC) [Entitic vol] 91.4 fL Normal 80.0-94.0 [facility] Comment on above: Performed By: #### P OCGLUC #### [facility] [address] [place] [address] [address] Rojelio Kingsley MONO # 0.7 103/ul Normal 0.3-0.8 [facility] Comment on above: Performed By: #### P OCGLUC #### [facility] [address] [place] [address] [address] Rojelio Kingsley Monocytes/100 WBC (Bld) 8.4 % Normal 1.7-12.0 [facility] Comment on above: Performed By: #### P OCGLUC #### [facility] [address] [place] [address] [address] Rojelio Kingsley NEUT # 5.5 103/ul Normal 1.4-6.5 [facility] Comment on above: Performed By: #### P OCGLUC #### [facility] [address] [place] [address] [address] Rojelio Kingsley Neutrophils/100 WBC (Bld) 66.2 % Normal 43.0-75.0 [facility] Comment on above: Performed By: #### P OCGLUC #### [facility] [address] [place] [address] [address] Rojelio Kingsley Platelet mean volume (Bld) [Entitic vol] 10.3 fL Normal 9.5-13.5 [facility] Comment on above: Performed By: #### P OCGLUC #### [facility] [address] [place] [address] [address] Rojelio Kingsley PLT 202 103/ul Normal 150-450 [facility] Comment on above: Performed By: #### P OCGLUC #### [facility] [address] [place] [address] [address] Rojelio Kingsley RBC 4.06 106/ul Critically low 4.70-6.10 [facility] Comment on above: Performed By: #### P OCGLUC #### [facility] [address] [place] [address] [address] Rojelio Kingsley WBC 8.3 103/ul Normal 4.0-11.0 [facility] Comment on above: Performed By: #### P OCGLUC #### [facility] [address] [place] [address] [address] Rojelio Kingsley GLYCOHEMOGLOBIN A1Con 2021 ADA RECOMMENDATION SEE BELOW Normal [facility] Comment on above: Result Comment: ADA RECOMMENDED LIMIT 4.0 - 6.0 ADA THERAPEUTIC TARGET < 7.0 ACTION SUGGESTED > 7.0 Performed By: #### A 1C #### [facility] [address] [place] [address] Dr. Rojelio Kingsley Glucose [Mass/Vol] 151 mg/dL Normal [facility] Comment on above: Performed By: #### A 1C #### [facility] [address] [place] [address] [address] Rojelio Kingsley HbA1c (Bld) [Mass fraction] 6.9 % Critically high 4.5-6.2 [facility] Comment on above: Performed By: #### A 1C #### [facility] [address] [place] [address] Dr. Rojelio Kingsley Consultation Noteon 02-19-20 22 Consultation Note [id number] 0CD:[id number] Normal [facility] KNEE RIGHT 3 [facility] 1 KNEE RIGHT 3 [facility] Department of Radiology [address] [place] [id number] ======== Patient Name: ILZZY YEE : 1945 Sex: M Age: Race: White Pt. Location: Patient Status: Ordered Date: 01/09/2021 1:10:00 PM Completed Date: 01/09/2021 01:11 PM Requesting Provider: TY AVALOS Attending Provider: Report Copy To: Signs & Symptoms: Z96.659 Presence of unspecified artificial knee joint I10 History: Comments: Exam: KNEE RIGHT 3 S ======== KNEE RIGHT 3 VWS HISTORY: Knee replacement, follow-up. COMPARISON: 12/26/2020. IMPRESSION: 1. Redemonstrated total knee prosthesis, no hardware complication or acute abnormality. No significant joint effusion. Mild soft tissue swelling noted. Electronically signed: Mitul Banks. Transcribed by: [email or web address], User Resident: Electronically Signed by: MITUL BANKS @ 01/09/2021 08:47 PM Normal [facility] POC GLUCOSE LABon 12-29-2020 Glucose [Mass/Vol] 194 mg/dL High 70-100 [facility] Comment on above: Performed By: #### 8 [id number] #### [facility] [address] [place] [address], [place] Glucose [Mass/Vol] 125 mg/dL High 70-100 [facility] Comment on above: Performed By: #### 8 5499 #### [facility] [address] [place] [address], [place] POC GLUCOSE LABon 12-28-2020 Glucose [Mass/Vol] 197 mg/dL High 70-100 [facility] Comment on above: Performed By: #### 8 5499 #### [facility] [address] [place] [address], [place] Glucose [Mass/Vol] 177 mg/dL High 70-100 [facility] Comment on above: Performed By: #### 8 5499 #### [facility] [address] [place] [address], [place] Glucose [Mass/Vol] 215 mg/dL High 70-100 [facility] Comment on above: Performed By: #### 8 5499 #### [facility] [address] [place] [address], [place] Glucose [Mass/Vol] 152 mg/dL High 70-100 [facility] Comment on above: Performed By: #### 8 5499 #### [facility] [address] [place] [address], [place] BASIC METABOLIC PANELon 06- Calcium [Mass/Vol] 8.2 mg/dL Low 8.6-10.3 [facility] Comment on above: Order Comment: No: D o not add to previous draw Performed By: #### 8 5499 #### [facility] [address] [place] [address], [place] Chloride [Moles/Vol] 102 mmol/L Normal 98-107 [facility] Comment on above: Order Comment: No: D o not add to previous draw Performed By: #### 8 5499 #### [facility] [address] [place] [address], [place] CO2 [Moles/Vol] 23 mmol/L Normal 21-31 [facility] [place] Comment on above: Order Comment: No: D o not add to previous draw Performed By: #### 8 [id number] #### [facility] [address] [place] [address], [place] Creatinine [Mass/Vol] 0.97 mg/dL Normal 0.70-1.30 [facility] Comment on above: Order Comment: No: D o not add to previous draw Performed By: #### 8 5499 #### [facility] [address] [place] [address], [place] GFR/1.73 sq M.predicted among blacks MDRD (S/P/Bld) [Vol rate/Area] mL/min/{1.73_m2} Normal >60 [facility] Comment on above: Order Comment: No: D o not add to previous draw Result Comment: Calc ulation may not be valid for patients over 70 years Performed By: #### 8 5499 #### [facility] [address] [place] [address], [place] GFR/1.73 sq M.predicted among non-blacks MDRD (S/P/Bld) [Vol rate/Area] mL/min/{1.73_m2} Normal >60 [facility] Comment on above: Order Comment: No: D o not add to previous draw Result Comment: Calc ulation may not be valid for patients over 70 years Performed By: #### 8 [id number] #### [facility] [address] [place] [address], [place] Glucose [Mass/Vol] 191 mg/dL High 70-100 [facility] Comment on above: Order Comment: No: D o not add to previous draw Performed By: #### 8 5499 #### [facility] [address] [place] [address], [place] Potassium [Moles/Vol] 3.8 mmol/L Normal 3.5-5.1 [facility] Comment on above: Order Comment: No: D o not add to previous draw Performed By: #### 8 5499 #### [facility] [address] [place] [address], [place] Sodium [Moles/Vol] 134 mmol/L Low 136-145 [facility] Comment on above: Order Comment: No: D o not add to previous draw Performed By: #### 8 5499 #### [facility] [address] [place] [address], [place] Urea nitrogen [Mass/Vol] 23 mg/dL Normal 7-25 [facility] Comment on above: Order Comment: No: D o not add to previous draw Performed By: #### 8 [id number] #### [facility] [address] [place] [address], [place] CBC COMPLETE BLOOD COUNTon 0 - Erythrocyte distribution width (RBC) [Ratio] 13.3 % Normal 11.5-15.0 [facility] Comment on above: Order Comment: No: D o not add to previous draw Performed By: #### 8 [id number] #### [facility] [address] [place] [address], [facility] Hematocrit (Bld) [Volume fraction] 35.4 % Low 39.0-50.0 [facility] Comment on above: Order Comment: No: D o not add to previous draw Performed By: #### 8 [id number] #### [facility] [address] [place] [address], [facility] Hemoglobin (Bld) [Mass/Vol] 11.7 g/dL Low 13.0-17.0 [facility] Comment on above: Order Comment: No: D o not add to previous draw Performed By: #### 8 5499 #### [facility] [address] [place] [id number], [facility] MCH (RBC) [Entitic mass] 31.2 pg Normal 27.0-33.0 [facility] Comment on above: Order Comment: No: D o not add to previous draw Performed By: #### 8 [id number] #### [facility] [address] [place] [id number], [facility] MCHC (RBC) [Mass/Vol] 33.1 g/dL Normal 32.0-35.0 [facility] Comment on above: Order Comment: No: D o not add to previous draw Performed By: #### 8 [id number] #### [facility] [address] [place] [address], [facility] MCV (RBC) [Entitic vol] 94.4 fL Normal 82.0-98.0 [facility] Comment on above: Order Comment: No: D o not add to previous draw Performed By: #### 8 [id number] #### [facility] [address] [place] [id number], [facility] Nucleated RBC/100 WBC (Bld) [Ratio] 0 % Normal 0-0 [facility] Comment on above: Order Comment: No: D o not add to previous draw Performed By: #### 8 5499 #### [facility] [address] PLAT CNT 177 10*3/uL Normal 150-400 The [facility] Comment on above: Order Comment: No: D o not add to previous draw Performed By: #### 8 5499 #### [facility] [address] [place] [address], [facility] RBC (Bld) [#/Vol] 3.75 10*6/uL Low 4.20-5.70 [facility] Comment on above: Order Comment: No: D o not add to previous draw Performed By: #### 8 5499 #### [facility] [address] [place] [address], [facility] WBC (Bld) [#/Vol] 16.83 10*3/uL High 4.00-10.60 [facility] Comment on above: Order Comment: No: D o not add to previous draw Performed By: #### 8 5499 #### [facility] [address] Operative Reporton 1 Operative Report MR#: [id number] I [facility] Pt. Name: Lizzy Yee Room #: 6AB [id number] Discharge Date: Birthdate: 1945 OPERATIVE REPORT DATE [...] cemented posterior stabilized total knee arthroplasty using [place] implants. COMPLICATIONS: None. TOTAL TOURNIQUET TIME: 92 [...] surgery. He has been cleared by his strategic marketing manager for his surgery as well. The patient signed the consent form. Site was marked. We proceed with IV antibiotics in the form of 2 g of Ancef within an hour of the incision. PROCEDURE IN DETAIL: After written consent obtained, site was marked. The patient was taken to the [facility] OR and was seen [...] futu (more content not included)... Normal [facility] POC GLUCOSE LABon 12-27-2020 Glucose [Mass/Vol] 200 mg/dL High 70-100 [facility] Comment on above: Performed By: #### 8 [id number] #### [facility] [address] [place] [address], [facility] Glucose [Mass/Vol] 186 mg/dL High 70-100 [facility] Comment on above: Performed By: #### 8 [id number] #### [facility] [address] [place] [address], [facility] Glucose [Mass/Vol] 250 mg/dL High 70-100 [facility] Comment on above: Performed By: #### 8 5499 #### [facility] [address] [place] [address], [place] Glucose [Mass/Vol] 177 mg/dL High 70-100 [facility] Comment on above: Performed By: #### 8 5499 #### [facility] [address] [place] [address], [place] POC GLUCOSE LABon 12-26-2020 Glucose [Mass/Vol] 230 mg/dL High 70-100 [facility] Comment on above: Performed By: #### 8 5499 #### [facility] [address] [place] [address], [place] Glucose [Mass/Vol] 278 mg/dL High 70-100 [facility] Comment on above: Performed By: #### 8 [id number] #### [facility] [address] [facility] [place] [address], [place] Glucose [Mass/Vol] 174 mg/dL High 70-100 [facility] Comment on above: Performed By: #### 8 [id number] #### [facility] [address] [facility] [place] [address], [place] Glucose [Mass/Vol] 146 mg/dL High 70-100 [facility] Comment on above: Performed By: #### 8 [id number] #### [facility] [address] [facility] [place] [address], [place] PORTABLE KNEE RIGHT 2 [facility] 12-26-2020 PORTABLE KNEE RIGHT 2 [facility] Department of Radiology [address] [place] [id number] ======== Patient Name: LIZZY YEE : 1945 Sex: M Age: Race: White Pt. Location: [id number] Patient Status: I Ordered Date: 12/26/2020 7:05:00 [...] replacement. Electronically signed: José Thornton. Transcribed by: [email or web address], User Resident: JOSÉ THORNTON Electronically Signed by: JOSÉ THORNTON @ 12/26/2020 03:28 PM I personally read this/these film(s) with this resident Normal [facility] Comment on above: Order Comment: Hardw are Evaluation, In PACU; HIP RIGHT 1 OR 2 VWS WITH PE LVISon 10-05-2020 HIP RIGHT 1 OR 2 VWS WITH PELVIS [facility] Department of Radiology [address] [place] [address] ======== Patient Name: LIZZY YEE [...] narrowing. Electronically signed: Mitul Banks. Transcribed by: [email or web address], User Resident: Electronically Signed by: MITUL BANKS @ 10/05/2020 01:08 PM Normal [facility] Comment on above: Order Comment: Views (X-RAY, HIP): AP Pelvis, X-Table Lateral Hip , Weight Bearing?: Y KNEE LEFT 4VWSon 08-20-2020 KNEE LEFT 4VWS [facility] Department of Radiology [address] [place] [phone] ======== Patient Name: LIZZY YEE : 1945 Sex: M Age: Race: White Pt. Location: 84 Patient Status: O Ordered Date: 08/20/2020 8:10:00 AM Completed Date: 08/20/2020 08:14 AM Requesting Provider: CEDRICK WILD Attending Provider: CEDRICK WILD Report Copy To: Signs & Symptoms: M25.569 Pain in unspecified knee I10 History: [place] Comments: Views (X-RAY, KNEE): AP, Lateral, Tunnel, [place] , Weight Bearing?: Y Exam: KNEE LEFT 4VWS ======== KNEE LEFT 4VWS 08/20/2020 8:14 AM CLINICAL INDICATIONS: M25.569 Pain in unspecified knee I10 TECHNOLOGIST COMMENTS: Patient states having bilateral knee pain. QUESTION FOR THE RADIOLOGIST: Views (X-RAY, KNEE): AP, Lateral, Tunnel, [place] , Weight Bearing?: Y PROTOCOL: AP,Lateral,Tunnel and [...] reports Electronically signed: Ej Francisco. Transcribed by: [email or web address], User Resident: TAMERA MARIE Electronically Signed by: EJ FRANCISCO @ 08/20/2020 08:41 AM I personally read this/these film(s) with this resident Normal [facility] Comment on above: Order Comment: Views (X-RAY, KNEE): AP, Lateral, Tunnel, [place] , Weight Bearing?: Y KNEE RIGHT 4 [facility] KNEE RIGHT 4 [facility] Department of Radiology [address] [place] [phone] ======== Patient Name: LIZZY YEE : 1945 Sex: M Age: Race: White Pt. Location: Patient Status: O Ordered Date: 08/20/2020 8:10:00 AM Completed Date: 08/20/2020 08:14 AM Requesting Provider: CEDRICK WILD Attending Provider: CEDRICK WILD Report Copy To: Signs & Symptoms: M25.569 Pain in unspecified knee I10 History: [place] Comments: Views (X-RAY, KNEE): AP, Lateral, Tunnel, [place] , Weight Bearing?: Y Exam: KNEE RIGHT 4 [facility] ======== KNEE RIGHT 4 [facility] 08/20/2020 8:14 AM SIGNS AND SYMPTOMS: M25.569 Pain in unspecified knee I10 TECHNOLOGIST COMMENTS: Patient states having bilateral knee pain. QUESTION FOR THE RADIOLOGIST: Views (X-RAY, KNEE): AP, Lateral, Tunnel, [place] , Weight Bearing?: Y PROTOCOL: AP,Lateral,Tunnel and [...] knee. Electronically signed: Ej Francisco. Transcribed by: [email or web address], User Resident: Electronically Signed by: EJ FRANCISCO @ 08/20/2020 08:30 AM Normal [facility] Comment on above: Order Comment: Views (X-RAY, KNEE): AP, Lateral, Tunnel, [place] , Weight Bearing?: Y Vital Signs Date Time Vital Sign Value Performing Clinician Facility 12-08-2023 13:37-0400 Body height 161.29 cm [facility] 12-08-2023 13:37-0400 Body mass index (BMI) [Ratio] 39.4 kg/m2 [facility] 12-08-2023 13:37-0400 Body weight 102.68 kg [facility] 12-08-2023 13:37-0400 Diastolic blood pressure 67 mm[Hg] [facility] 12-08-2023 13:37-0400 Heart rate 61 /min [facility] 12-08-2023 13:37-0400 Respiratory rate 20 /min [facility] 12-08-2023 13:37-0400 Systolic blood pressure 126 mm[Hg] [facility] 11-17-2023 13:12-0400 Body weight 102.71 kg [facility] 11-04-2023 10:57-0400 Body height 161.29 cm [facility] 11-04-2023 10:57-0400 Body mass index (BMI) [Ratio] 39.5 kg/m2 [facility] 11-04-2023 10:57-0400 Body weight 102.96 kg [facility] 11-04-2023 10:57-0400 Diastolic blood pressure 70 mm[Hg] [facility] 11-04-2023 10:57-0400 Heart rate 57 /min [facility] 11-04-2023 10:57-0400 Respiratory rate 18 /min [facility] 11-04-2023 10:57-0400 SaO2% (BldA) [Mass fraction] 97 % [facility] 11-04-2023 10:57-0400 Systolic blood pressure 109 mm[Hg] [facility] 06-05-2023 10:00-0500 Body height 165.1 cm [facility] 06-05-2023 10:00-0500 Body mass index (BMI) [Ratio] 39.87 kg/m2 [facility] 06-05-2023 10:00-0500 Body weight 108.68 kg Juanc[facility] 06-05-2023 10:00-0500 Diastolic blood pressure 71 mm[Hg] [facility] 06-05-2023 10:00-0500 Respiratory rate 20 /min [facility] 06-05-2023 10:00-0500 Systolic blood pressure 118 mm[Hg] [facility] 05-06-2023 13:45-0400 Body height 165.1 cm [facility] 05-06-2023 13:45-0400 Body mass index (BMI) [Ratio] 39.97 kg/m2 [facility] 05-06-2023 13:45-0400 Body weight 108.95 kg [facility] 05-06-2023 13:45-0400 Diastolic blood pressure 87 mm[Hg] Juancarlos Ball Other [facility] Other 05-06-2023 13:45-0400 Respiratory rate 16 /min Juancarlos Ball Other [facility] Other 05-06-2023 13:45-0400 Systolic blood pressure 158 mm[Hg] Juancarlos Ball Other [facility] Other 03-10-2023 11:00-0400 Body height 165.1 cm Juancarlos Ball Other [facility] Other 03-10-2023 11:00-0400 Body mass index (BMI) [Ratio] 39.3 kg/m2 Juancarlos Ball Other [facility] Other 03-10-2023 11:00-0400 Body weight 107.14 kg Juancarlos Ball Other [facility] Other 03-10-2023 11:00-0400 Diastolic blood pressure 67 mm[Hg] Juancarlos Ball Other [facility] Other 03-10-2023 11:00-0400 Respiratory rate 16 /min Juancarlos Ball Other [facility] Other 03-10-2023 11:00-0400 Systolic blood pressure 120 mm[Hg] Juancarlos Ball Other [facility] Other 10-16-2022 13:12-0400 Body temperature 97.11 [degF] Jay Gonzalez MD Work Phone: [facility] 10-16-2022 13:12-0400 Diastolic blood pressure 66 mm[Hg] Jay Gonzalez MD Work Phone: [facility] 10-16-2022 13:12-0400 Heart rate 51 /min Jay Gonzalez MD Work Phone: [facility] 10-16-2022 13:12-0400 SaO2% (BldA) [Mass fraction] 96 % Jay Gonzalez MD Work Phone: [facility] 10-16-2022 13:12-0400 Systolic blood pressure 143 mm[Hg] Jay Gonzalez MD Work Phone: [facility] 09-08-2022 13:30-0500 Body height 165.1 cm Juancarlos Ball Other [facility] Other 09-08-2022 13:30-0500 Body mass index (BMI) [Ratio] 39.33 kg/m2 Juancarlos Ball Other [facility] Other 09-08-2022 13:30-0500 Body weight 107.23 kg Juancarlos Ball Other [facility] Other 09-08-2022 13:30-0500 Diastolic blood pressure 70 mm[Hg] Juancarlos Ball Other [facility] Other 09-08-2022 13:30-0500 Respiratory rate 20 /min Juancarlos Ball Other [facility] Other 09-08-2022 13:30-0500 Systolic blood pressure 112 mm[Hg] Juancarlos Ball Other [facility] Other 01-27-2022 13:20-0400 Body height 165.1 cm Jus Medina MD Work Phone: [facility] 01-27-2022 13:20-0400 Body temperature 96.91 [degF] Jus Medina MD Work Phone: [facility] 01-27-2022 13:20-0400 Body weight 104.33 kg Jus Medina MD Work Phone: [facility] 01-27-2022 13:20-0400 Diastolic blood pressure 56 mm[Hg] Jus Medina MD Work Phone: [facility] 01-27-2022 13:20-0400 Heart rate 50 /min Jus Medina MD Work Phone: [facility] 01-27-2022 13:20-0400 SaO2% (BldA) [Mass fraction] 98 % Jus Medina MD Work Phone: [facility] 01-27-2022 13:20-0400 Systolic blood pressure 131 mm[Hg] Jus Medina MD Work Phone: [facility] 10-10-2021 10:46-0400 Body height 165.1 cm aJy Gonzalez MD Work Phone: [facility] 10-10-2021 10:46-0400 Body weight 102.51 kg Jay Gonzalez MD Work Phone: [facility] 10-10-2021 10:46-0400 Diastolic blood pressure 65 mm[Hg] Jay Gonzalez MD Work Phone: [facility] 10-10-2021 10:46-0400 Heart rate 76 /min Jay Gonzalez MD Work Phone: [facility] 10-10-2021 10:46-0400 Systolic blood pressure 137 mm[Hg] Jay Gonzalez MD Work Phone: [facility] 10-10-2021 10:44-0400 Body height 165.1 cm Jus Medina MD Work Phone: [facility] 10-10-2021 10:44-0400 Body weight 102.51 kg Jus Medina MD Work Phone: [facility] 10-10-2021 10:44-0400 Diastolic blood pressure 65 mm[Hg] Jus Medina MD Work Phone: [facility] 10-10-2021 10:44-0400 Heart rate 76 /min Jus Medina MD Work Phone: [facility] 10-10-2021 10:44-0400 SaO2% (BldA) [Mass fraction] 98 % Jus Medina MD Work Phone: [facility] 10-10-2021 10:[id number] Systolic blood pressure 137 mm[Hg] Jus Medina MD Work Phone: [facility] Encounters Encounter Date Encounter Type Care Provider Facility Start: 03-24-2024 End: 03-24-2024 ambulatory ANGELA BINGHAM Not Available Start: 12-15-2023 End: 12-15-2023 ambulatory JOANNA ORTEGA Not Available Start: 12-10-2023 End: 12-10-2023 ambulatory ANGELA BINGHAM Not Available Start: 12-08-2023 End: 12-08-2023 Patient encounter procedure [facility] Work Phone: Start: 11-17-2023 End: 11-17-2023 Patient encounter procedure [facility] Work Phone: Start: 11-04-2023 End: 11-04-2023 Patient encounter procedure [facility] Work Phone: Start: 10-27-2023 Telephone encounter Jay patel MD Work Phone: General Surgery Start: 10-15-2023 End: 10-15-2023 ambulatory JAY GONZALEZ Facility:[facility] Start: 10-09-2023 Non-patient / Non-visit [facility] Work Phone: Start: 10-01-2023 End: 10-01-2023 ambulatory ANGELA BINGHAM Not Available Start: 08-10-2023 (RD) [place] Director Nirmala James [facility] Start: 08-10-2023 End: 08-10-2023 ambulatory Juancarlos Cuenca [facility] [email or web address] Other Start: 08-03-2023 End: 08-04-2023 ambulatory Hanh Wade MD Facility: [facility] Start: 07-27-2023 End: 07-28-2023 ambulatory Hanh Wade MD Facility: [facility] Start: 06-17-2023 End: 06-17-2023 ambulatory Juancarlos Ball Other [facility] Other Start: 06-17-2023 Telephone encounter Juancarlos Ball [facility] Start: 06-16-2023 End: 06-16-2023 ambulatory Juancarlos Ball Other [facility] Other Start: 06-16-2023 Telephone encounter Juancarlos Ball [facility] Start: 06-09-2023 End: 06-09-2023 ambulatory Juancarlos Ball Other [facility] Other Start: 06-09-2023 Telephone encounter Juancarlos Ball [facility] Start: 06-08-2023 End: 06-08-2023 ambulatory Juancarlos Ball Other [facility] Other Start: 06-08-2023 Telephone encounter Juancarlos Ball [facility] Start: 06-07-2023 End: 06-07-2023 ambulatory Juancarlos Ball Other [facility] Other Start: 06-07-2023 Telephone encounter Juancarlos Ball [facility] Start: 06-05-2023 End: 06-05-2023 ambulatory Juancarlos Ball Other [facility] Other Start: 06-05-2023 Office outpatient vi sit 25 minutes Juancarlos Ball [facility] Start: 05-27-2023 End: 05-27-2023 ambulatory Juancarlos Ball Other [facility] Other Start: 05-27-2023 Telephone encounter Juancarlos Ball [facility] Start: 05-17-2023 End: 05-17-2023 ambulatory Juancarlos Ball Other [facility] Other Start: 05-17-2023 Telephone encounter Juancarlos Ball [facility] Start: 05-15-2023 End: 05-15-2023 ambulatory Juancarlos Ball Other [facility] Other Start: 05-15-2023 Telephone encounter Juancarlos Ball [facility] Start: 05-07-2023 End: 05-07-2023 ambulatory Juancarlos Ball Other [facility] Other Start: 05-07-2023 Telephone encounter Juancarlos Ball [facility] Start: 05-06-2023 End: 05-06-2023 ambulatory Juancarlos Ball Other [facility] Other Start: 05-06-2023 Office outpatient vi sit 25 minutes Juancarlos Ball [facility] Start: 05-06-2023 Telephone encounter Juancarlos Ball [facility] Start: 04-22-2023 End: 04-22-2023 ambulatory [facility] Start: 04-04-2023 End: 04-04-2023 ambulatory Juancarlos Cuenca Other [facility] Other Start: 04-04-2023 Telephone encounter Juancarlos Ball [facility] Start: 03-10-2023 End: 03-10-2023 ambulatory Juancarlos Ball Other [facility] Other Start: 03-10-2023 Office outpatient vi sit 25 minutes Juancarlos Ball [facility] Start: 12-24-2022 End: 12-24-2022 ambulatory Juancarlos Cuenca Other [facility] Other Start: 12-24-2022 Telephone encounter Juancarlos Ball [facility] Start: 12-17-2022 End: 12-18-[address] NYA BIRD . Facility:[facility] Start: 12-16-2022 End: 12-16-2022 ambulatory RAINA PATRICKMISOLIS . Facility:[facility] Start: 12-02-2022 End: 12-03-2022 ambulatory Nya BIRD Facility: [place] Start: 11-28-2022 End: 11-29-2022 ambulatory MANAV GARY . Facility:[facility] Start: 11-28-2022 End: 11-29-2022 ambulatory NARENDRANATH LAKSHMIPATHY . Facility:[facility] Start: 11-11-2022 End: 11-11-2022 ambulatory NARENDRANATH LAKSHMIPATHY . Facility:[facility] Start: 10-28-2022 End: 10-29-[address] EVAN LAMAS . Facility: Start: 10-16-2022 End: 10-16-2022 Patient encounter procedure Jay Gonzalez MD Work Phone: General Surgery Comment on above: Ventral incisional h ernia (Primary Dx) Start: 10-11-2022 ambulatory JAY GONZALEZ Facility:[facility] Start: 10-11-2022 End: 10-11-2022 Subsequent hospital visit by physician Ct [facility] Comment on above: 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] Start: 10-06-2022 Telephone encounter Jay patel MD Work Phone: General Surgery Comment on above: Patient Question Start: 09-16-2022 Telephone encounter Juancarlos BELL [facility] Start: 09-16-2022 End: 09-17-2022 ambulatory Nya BIRD [employer] [facility] Other Start: 09-16-2022 End: 09-27-2022 Pre-admission assessment Nya BIRD [facility] Start: 09-12-2022 Telephone encounter Juancarlos [facility] Start: 09-12-2022 End: 09-13-[address] JUANCARLOS CUENCA [facility] Other Start: 09-08-2022 End: 09-08-2022 ambulatory Juancarlos Cuenca Other [facility] Other Start: 09-08-2022 Patient encounter procedure Juancarlos BURKS [facility] Start: 07-31-2022 End: 08-01-[address] EVAN LAMAS . Facility: Start: 07-03-2022 Encounter for preprocedural laboratory examination DR EVAN LAMAS . [facility] Start: 07-01-2022 End: 07-01-[address] EVAN LAMAS . Facility:[facility] Start: 06-27-2022 End: 06-28-[address] EVAN LAMAS . Facility:[facility] Start: 06-27-2022 End: 06-28-2022 Encounter for preprocedural laboratory examination DR EVAN LAMAS . Facility:[facility] Start: 05-29-2022 End: 05-30-[address] EVAN LAMAS . Facility:[facility] Start: 05-19-2022 End: 05-19-2022 ambulatory [facility] Start: 05-13-2022 End: 05-13-[address] [...] Telephone encounter Shilpa Storm MD Work Phone: [facility] Comment on above: Research Start: 10-10-2021 End: 10-10-2021 Patient encounter procedure Jay Gonzalez MD Work Phone: General Surgery Comment on above: Ventral incisional h ernia (Primary Dx) Polyposis of colon ( Primary Dx) Start: 12-26-2020 End: 12-29-2020 ambulatory JUANCARLOS CUENCA Facility:[facility] Start: 10-19-2020 End: 10-20-2020 ambulatory JUANCARLOS CUENCA Facility:[facility] Procedures Date Procedure Procedure Detail Performing Clinician Start: 10-04-2021 Partial resection of colon Nya BIRD Start: 10-04-2021 Repair of ventral hernia Nya BIRD Start: 04-08-2021 Colonoscopy Nya NI TEIVN Comment on above: Transverse and desce nding colon polyps Start: 12-26-2020 ANESTH KNEE ARTHROPLASTY JUANCARLOS CUENCA Start: 12-26-2020 Arthrp kne condyle&p latu medial&lat compartments VITHAL SHENDGE Start: 12-26-2020 JOINT DEVICE (IMPLANTABLE) JUANCARLOS CUENCA Start: 11-17-2017 Colonoscopy Nya NI TEVIN Comment on above: 2004 (2), 2005, 2007 , 2009, 2011, 05/2015, 11/2017 Start: 03-06-2016 Transurethral prostatectomy Nya BIRD Start: 02-18-2016 Cystoscopy Nya NI TEVIN Start: 01-16-2016 Urodynamic studies [place] aeandreas SAVAGEL Start: 07-20-2012 Hernia repair Nya ROSARIO Start: 08-26-2007 Prosthetic arthropla sty of the hip Nya BIRD Start: 08-20-2007 Hernia of anterior abdominal wall (disorder) Nya SAVAGEL Start: 04-19-2004 Transrectal biopsy o f prostate using ultrasound guidance Nya SAVAGEAndreas 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 Bilateral vasectomy Nya HUSSEINL Decompression of med med nerve Nya HUSSEINAndreas Through knee amputation [place] ael NILL Plan of Treatment Date Care Activity Detail Author Start: 10-14-2024 BP Controlled (<130/80) BP Controlle d (<130/80) [facility] Start: 07-20-2023 Advance Directive Discussion Advance Directive Discussion [facility] Start: 07-20-2023 Behavioral Health Screening Behavioral Health Screening [facility] Start: 10-10-2022 End: 11-09-2022 Ct abdomen & pelvis w/o contrast material CT ABD/PEL WO IVCON Radiology Routine Ventral incisional hernia Expected: 10/10/2022, Expires: 11/09/2022 [facility] Work Phone: Comment on above: Expected: 10/10/2022 , Expires: 11/09/2022 Start: 07-20-2022 ADVANCE DIRECTIVE DISCUSSION ADVANCE DIRECTIVE DISCUSSION [facility] Start: 07-20-2022 DEPRESSION ASSESSMENT DEPRESSION ASS ESSMENT [facility] Start: 03-20-2022 Influenza vaccination INFLUENZA (#1) [facility] Start: 03-13-2022 Hemoglobin A1c measurement HbA1C [facility] Start: 03-13-2022 Hemoglobin A1c/Hemoglobin.total in Blood HBA1C [facility] Start: 01-04-2022 COVID-19 VACCINE (5 - Booster for Pfizer series) COVID-19 VACCINE (5 - Booster for Pfizer series) [facility] Start: 07-20-2021 ADVANCE DIRECTIVE DISCUSSION ADVANCE DIRECTIVE DISCUSSION [facility] Start: 04-19-2015 Pneumococcal Vaccine : 65+ (2 of 2 - PCV) Pneumococcal Vaccine: 65+ (2 of 2 - PCV) [facility] Start: 2009 PNEUMOVAX AGE 65 AND OVER WITH 5YR LOOKBACK (#1) PNEUMOVAX AGE 65 AND OVER WITH 5YR LOOKBACK (#1) [facility] Start: 1994 SHINGRIX VACCINE (1 of 2) SHINGRIX VACCINE (1 of 2) [facility] Start: 12-31-1963 Urine microalbumin profile [facility] Start: 1962 ANNUAL PCP TEAM POSTAL SORTING OFFICER MACY DISEASE VISIT ANNUAL PCP TEAM CHRONIC DISEASE VISIT [facility] Start: 1962 BP CONTROLLED (<130/80) BP CONTROLLE D (<130/80) [facility] Start: 1962 Hepatitis B surface antibody level LDL CHOLESTEROL [facility] Start: 1962 HEPATITIS C SCREENING HEPATITIS C ANTOINE TEJEDA [facility] Start: 1962 Hepatitis C screening Hepatitis C Sc ziawestley [facility] Start: 1956 Adult depression screening assessment DEPRESSION SCREENING [facility] Start: 1954 3 comp foot exam completed DIABETIC FOOT EXAM [facility] Start: 1954 Diabetic foot examination Diabetic Foot Exam [facility] Start: 1954 Glaucoma screening Dilated Retinal E xam [facility] Start: 1954 Hepatitis B screening URINE ALBUMIN:CREATININE RATIO [facility] Start: 1954 Hepatitis C antibody , confirmatory test DILATED RETINAL EXAM [facility] Start: 1950 PNEUMOCOCCAL: 65+ (1 - PCV) PNEUMOCOCCAL: 65+ (1 - PCV) [facility] End: 10-11-2022 Ct abdomen & pelvis w/o contrast material [facility] Work Phone: Comment on above: 1 Occurrences starti ng 10/11/2022 until 10/11/2022 End: 11-15-2023 Ct abdomen & pelvis w/o contrast material CT ABD/PEL WO IVCON Radiology Routine Ventral incisional hernia 1 Occurrences starting 10/16/2022 until 11/15/2023 [facility] Work Phone: Comment on above: 1 Occurrences starti ng 10/16/2022 until 11/15/2023 [facility] Immunizations Immunization Date Immunization Notes Care Provider [facility] 05-20-2022 influenza virus vaccine, unspecified formulation Nya BIRD [facility] [place] 05-16-2022 influenza, high dose seasonal, preservative-free Juancarlos Cuenca Other [facility] Other 05-16-2022 influenza virus vaccine, split virus (incl. purified surface antigen) Juancarlos Cuenca Other [facility] Other 05-16-2022 influenza virus vaccine, unspecified formulation [facility] 04-15-2022 SARS-CoV-2 (COVID-19 ) [id number] Nya NILL [facility] 11-09-2021 COVID-19 Vaccine Pfi zer - Documentation Purposes Only Juancarlos Cuenca Other [facility] 11-09-2021 SARS-CoV-2 mRNA ([id number] se) vaccine Nya NILL [facility] 04-19-2021 SARS-CoV-2 (COVID-19 ) mRNA BNT-162b2 vax Nya NILL [facility] Comment on above: Result Comment: 2022: [id number] 09-05-2020 SARS-CoV-2 (COVID-19 ) mRNA BNT-162b2 vax Nya [employer] [facility] Comment on above: Result Comment: 2022: [id number] 08-15-2020 COVID-19 Vaccine Moderna - Documentation Purposes Only Juancarlos Cuenca Other [facility] 08-15-2020 SARS-CoV-2 (COVID-19 ) mRNA BNT-162b2 vax Nya NILL [facility] Comment on above: Result Comment: 2022: [id number] 03-28-2020 influenza virus vaccine, split virus (incl. purified surface antigen) Juancarlos Cuenca Other [facility] Other 03-28-2020 influenza virus vaccine, unspecified formulation [facility] 05-17-2019 influenza virus vaccine, split virus (incl. purified surface antigen) Juancarlos Bang Other [facility] Other 05-17-2019 influenza virus vaccine, unspecified formulation [facility] 05-13-2018 influenza virus vaccine, split virus (incl. purified surface antigen) Juancarlos Cuenca Other [facility] Other 05-13-2018 influenza virus vaccine, unspecified formulation [facility] 04-25-2015 influenza virus vaccine, split virus (incl. purified surface antigen) Juancarlos Cuenca Other [facility] Other 04-25-2015 influenza virus vaccine, unspecified formulation [facility] 04-25-2015 pneumococcal conjuga te vaccine, 13 valent Juancarlos Cuenca Other [facility] 04-19-2014 pneumococcal polysaccharide vaccine, 23 valent Juancarlos Cuenca Other [facility] 04-20-2013 tetanus and diphther ia toxoids, adsorbed, preservative free, for adult use (5 Lf of tetanus toxoid and 2 Lf of diphtheria toxoid) Juancarlos Cuenca Other [facility] 04-21-2012 pneumococcal polysaccharide vaccine, 23 valent Juancarlos Cuenca Other [facility] Payers Date Payer Category Payer Self-pay [id number] 2023 Unknown 2020 Private Health Insurance [facility] AARP SUPPLEMENT [id number] 2020-Present [phone] [address] [place] [address] Indemnity [id number] 2020 Private Health Insurance [facility] AARP SUPPLEMENT [id number] 2020-Present [phone] [address] [place] [address] Indemnity [id number] 2009 Medicare MEDICARE MEDICAR E A AND B [id number] 2009-Present [phone] [place] [address] Medicare [id number] 2009 Medicare [id number] 1959 Medicare [id number] 1959 Unknown [id number] 1944 Unknown [id number] 2.16.840.1.635991.3.579.2 .647 1944 Unknown [id number] 2.16.840.1.263616.3.579.2 .647 1944 Unknown [id number] 2.16.840.1.120801.3.579.2 .593 1944 Unknown [id number] 2.16.840.1.211058.3.579.2 .593 1944 Unknown [id number] 2.16.840.1.567360.3.579.2 .593 1944 Unknown [id number] 2.16.840.1.911339.3.579.2 .593 1944 Unknown [id number] 2.16.840.1.249523.3.579.2 .593 1944 Unknown [id number] 2.16.840.1.006504.3.579.2 .593 1944 Unknown [id number] 2.16.840.1.371853.3.579.2 .593 1944 Unknown [id number] 2.16.840.1.112754.3.579.2 .593 1944 Unknown [id number] 2.16.840.1.582933.3.579.2 .593 1944 Unknown [id number] 2.16.840.1.317599.3.579.2 .593 1944 Unknown [id number] 2.16.840.1.399576.3.579.2 .593 1944 Unknown [id number] 2.16.840.1.477309.3.579.2 .593 1944 Unknown [id number] 2.16.840.1.025488.3.579.2 .593 1944 Unknown [id number] 2.16.840.1.920455.3.579.2 .593 1944 Unknown [id number] 2.16.840.1.059669.3.579.2 .593 1944 Unknown [id number] 2.16.840.1.095662.3.579.2 .593 1944 Unknown [id number] 2.16.840.1.435659.3.579.2 .593 1944 Unknown [id number] 2.840.1.572696.3.579.2 .593 1944 Unknown [id number] 2.16.840.1.306416.3.579.2 .593 1944 Unknown [id number] 2.16.840.1.015612.3.579.2 .727 1944 Unknown [id number] 2.16.840.1.738934.3.579.2 .727 1944 Unknown [id number] 2.840.1.004403.3.579.2 .727 1944 Unknown [id number] 2.16.840.1.993911.3.579.2 .196 1944 Unknown [id number] 2.16.840.1.558114.3.579.2 .196 1944 Unknown [id number] 2.16.840.1.605878.3.579.2 .1259 1944 Unknown [id number] 2.16.840.1.707960.3.579.2 .1259 1944 Unknown [id number] 2.16.840.1.602931.3.579.2 .1259 1944 Unknown [id number] 2.16.840.1.603776.3.579.2 .1259 Unknown [id number] Unknown [id number] 2.16.840.1.892510.19 Unknown [id number] Conversion Insurance [id number] Unknown [id number] 2.16.840.1.225346.3.579.2 .531 Social History Date Type Detail Facility Start: 05-21-2021 End: 09-16-2023 Tobacco smoking status NHIS Ex-smoker [facility] End: 07-20-1994 History of tobacco use Current smoker [facility] End: 07-20-1994 History of tobacco use Cigar Smoker [facility] Start: 05-21-2021 End: 10-16-2022 Tobacco use and exposure Smokeless tobacco non-user [facility] Start: 10-10-2021 End: 10-15-2023 Alcohol intake Ex-drinker (finding) [facility] Start: 05-21-2021 End: 10-16-2022 Tobacco Comment Quit 15+ years [facility] Start: 1945 Sex Assigned At Not on file [facility] Start: 08-25-2021 End: 09-24-2021 Exposure to SARS-CoV-2 (event) Not sure [facility] Start: 09-16-2022 Tobacco smoking status Never s moked tobacco (finding) [facility] [place] Tobacco smoking status Former sm okeless tobacco user, quit more than 30 days ago [facility] [place] Start: 10-15-2023 Sex Assigned At Male F [facility] Start: 10-15-2023 History of Social function [facility] Start: 1945 Sex Assigned At Male F [facility] Medical Equipment Procedure Code Equipment Code Equipment Origin al Text Equipment Identifier Dates Mesh Parietene Polypropylene Macroporous [id number] Surgical Monofilament - [id number] Start: 09-24-2021 Blood Sugar Diag nostic (Accu-Chek [...] Patient and or can be reached at [phone]. Thank you. Wendi Traore documented in this encounter [facility] 10-15-2023 Note HNO ID: [id number] Author: JAY GONZALEZ MD Service: ? Author Type: Physician Type: Progress Notes Filed: 10/15/2023 13:41 Note Text: [facility] for Abdominal Core [facility] - Follow Up [...] Gonzalez MD 10/15/23, 1:38 PM General Surgery [facility] Medical Decision Making: Problems: Low: Stable chronic illness Risk: Low: Low risk from testing/treatment Medical Decision Making Level: 3 - Low [facility] 08-10-2023 Evaluation note Encounter Date Diagnosis Assessment Notes Jul, Other Summary of Visit: (A) Meal timing (B) DM2 nutrition education (C) Answered general, nutrition-rela maru questions [facility] Other 11-28-2023 Evaluation note* Encounter Date Diagnosis Assessment Notes Treatment Notes Treatment Clinical Notes May, Type 2 diabetes mellitus with hyperglycemia, without long-term current use of insulin (ICD-10 - E11.65) [facility] Other 11-28-2023 Evaluation note* Encounter Date Diagnosis Assessment Notes Treatment Notes Treatment Clinical Notes May, Primary hypertension (ICD-10 - I10) [facility] Other 11-21-2023 Evaluation note* Encounter Date Diagnosis Assessment Notes Treatment Notes Treatment Clinical Notes May, Type 2 diabetes mellitus with hyperglycemia, without long-term current use of insulin (ICD-10 - E11.65) [facility] Other 11-17-2023 Evaluation note* Encounter Date Diagnosis [...] continue exercise to achieve/maintain a normal BMI. 17 May, 2023 Elevated cholesterol (ICD-10 - E78.00) Instructed on diet and exercise with continued statin therapy.Discussed the beneficial effects of lowering cholesterol in reducing the risk for cerebrovascular and cardiovascular disease. 17 May, 2023 Obstructive sleep apnea (ICD-10 - G47.33) This [...] index [BMI] 39.0-39.9, adult (ICD-10 - Z68.39) [facility] Other 11-08-2023 Evaluation note* Encounter Date Diagnosis Assessment Notes Treatment Notes Treatment Clinical Notes May, Primary hypertension (ICD-10 - I10) [facility] Other 10-29-2023 Evaluation note* Encounter Date Diagnosis Assessment Notes Treatment Notes Treatment Clinical Notes Apr, Type 2 diabetes mellitus with hyperglycemia, without long-term current use of insulin (ICD-10 - E11.65) 29 Oct, 2023 Primary hypertension (ICD-10 - I10) [facility] Other 10-19-2023 Evaluation note* Encounter Date Diagnosis Assessment Notes Treatment Notes Treatment Clinical Notes Apr, Type 2 diabetes mellitus with hyperglycemia, without long-term current use of insulin (ICD-10 - E11.65) [facility] Other 10-18-2023 Evaluation note* Encounter Date Diagnosis Assessment Notes Treatment Notes Treatment Clinical Notes Apr, ASHD (arteriosclerotic heart disease) (ICD-10 - I25.10) This patient is stable without activity related CP, dyspnea or lightheadedness. They are instructed to continue exercise and AHA diet plan. Continue secondary prevention measures. Gericare Aide suggesting SGLT-2 for dual benefit w/ ASHD [...] contributed. 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 Inspect feet daily for cuts. Continue secondary prevention measures. Scheduled post op JAMIR [facility] Other 10-18-2023 Evaluation note* Encounter Date Diagnosis Assessment Notes Treatment Notes Treatment Clinical Notes Apr, Type 2 diabetes mellitus with hyperglycemia, without long-term current use of insulin (ICD-10 - E11.65) [facility] [email or web address] Other 10-04-2023 [facility] Note Chief Complaint: Patient here for 1 year follow up CAD, PVD, and hypertension. He underwent LE angiogram last month with Dr. Mccurdy of [facility]. He sees him [...] history of Coronary artery disease, Diabetes mellitus ([facility]), Hypertension, PVD (peripheral vascular disease) ([facility]), and Sleep apnea. Surgical History He has [...] common femoral artery. Surgeon: Jyoti Mccurdy Primary Paid Search Manager: None. Anesthesia: Local with 1% lidocaine and sedation. EBL: 10 cc Complications: None. 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 Procedure: Patient was brought to the angiogram suite. He was placed on the table in supine position. Left groin area was prepped and draped in the usual sterile fashion. Patient was given (more content not included)...[facility]08-22-2023 Evaluation note* Encounter Date Diagnosis Assessment [...] [BMI ] 39.0-39.9, adult (ICD-10 - Z68.39) [facility] Other 05-31-2023 NoteOPERATIVE NOTE OPERATION DATE: 11/29/2022 [...] in three years. CC: Juancarlos Cuenca D.O.[facility] [id number] NotePROCEDURE: XR HIP LT 2 3V WO PELVIS HISTORY: Pain of left hip joint COMPARISON: None. FINDINGS: BONES:No fracture, acute abnormality, or significant arthropathy. SOFT TISSUES:No visible soft tissue swelling. EFFUSION:None visible. OTHER: Negative. IMPRESSION: 1. No acute bone abnormality. 2. Mild degenerative joint disease. Electronically authenticated by: GABY PADILLA Date: 2022-11-28 13:08[facility]04-11-2023 NoteCONSULTATION CONSULTATION DATE: 10/28/2022 TO: Juancarlos [...] our patients to inform us about any tibn-nwa-lwmiykw medications or herbal remedies/nutritional supplements/alternative remedies. 2. [...] treatment options with their primary care provider.[facility] [id number] History of Present illness Narrative* Jay Gonzalez MD - 10/16/2022 2:38 PM EDT [facility] - Follow Up [...] Gonzalez MD 10/16/22, 2:45 PM General Surgery [facility] * Destiny Zapata MA - 10/16/2022 1:09 PM EDT What is the reason for your visit today? Follow up 1 year Who is your referring physician? Are you having poor oral intake? NO Have you had unintentional weight loss of 15 lbs/7 Kg in the last 3-6 months? NO Bowels: regular Wound: Temperature: No Drains: No documented in this encounterK[facility]03-25-2023 Miscellaneous Notes* Allied Health - [...] 11, 2022 10:29 AM documented in this encounterKet[facility]03-21-2023 Miscellaneous Notes* Telephone Encounter - [...] or so at a non facility. PH: [phone] documented in this encounterKettering [facility]02-24-2023 Evaluation note* Encounter Date Diagnosis Assessment Notes Treatment Notes Treatment Clinical Notes Aug, Left carotid artery stenosis (ICD-10 - I65.22) US: right <50%, left 50-69% - 10/2020 US: right <50%, left 80-90% - 08/2022 [facility] Other 02-20-2023 Evaluation note* Encounter Date Diagnosis [...] reviewed and amended by provider signed below. [facility] Other 01-12-2023 NoteCONSULTATION PROCEDURE DATE: 09/18/2022 PREOPERATIVE [...] will be followed up in the office.[facility] [id number] NoteCONSULTATION CONSULTATION DATE: 07/31/2022 HISTORY OF PRESENT [...] and the patient agrees with this plan.[facility] 05-29-2022 NoteCONSULTATION CONSULTATION DATE: 05/29/2022 HISTORY [...] be followed up in the clinic thereafter.[facility] [id number] NotePatient here for 1 year follow up CAD, hypertension, and PVD. Had labs in September 2021 while at [facility] for colon surgery/hernia repair. He became hypotensive s/p surgery so his BP meds were adjusted. Denies chest pain and palpitations. Says his SOB with exertion remains unchanged. Review of Systems Cardiovascular: Positive for dyspnea on exertion. Musculoskeletal: Positive for arthritis, back pain, joint pain, muscle weakness and myalgias. Neurological: Positive for light-headedness and numbness.[facility]10-31-2022 NoteSUBJECTIVE Chief Complaint Patient presents with Coronary Artery Disease Hypertension Peripheral Vascular Disease Lizzy Yee is a 76 y.o. male here for follow-up. HPI Patient here for 1 year follow up CAD, hypertension, and PVD. Had labs in September 2021 while at [facility] for colon surgery/hernia repair. He became [...] position changes. HOSPITAL COURSE (from 09/2021 at [facility]): Mr Yee is a 75 year [...] Coronary artery disease PVD (peripheral vascular disease) ([facility]) Hx of CABG Past Medical History: Diagnosis Date Coronary artery disease Diabetes mellitus ([facility]) Hypertension PVD (peripheral vascular disease) ([facility]) Sleep apnea Family History Problem Relation Name [...] 0.4 mg by mo (more content not included)...[facility]10-06-2022 NoteCONSULTATION CONSULTATION DATE: 04/24/2022 This is [...] approval to hold his Plavix from his strategic marketing manager. A refill for Baclofen 10 mg [...] knee osteoarthritis. The patient is in agreement.[facility] [id number] Note CONSULTATION CONSULTATION DATE: 03/25/2022 CHIEF COMPLAINT: 1. Low back pain. 2. Left knee pain. HISTORY OF PRESENT ILLNESS: This is a very pleasant, 76-year-old male, who is known to the pain practice remote. The patient had a right total knee replacement at [facility]. The patient is doing [...] patient understands and would like to proceed.[facility] 01-27-2022 Nurse Note* Sarah Osman MA - [...] Temperature: No Drains: No documented in this encounterKettering [facility]07-11-2022 History of Present illness Narrative* Jus Medina MD - 01/27/2022 1:00 PM EDT SHIRA Yee is a 76 year old [...] needed. Jus Medina MD documented in this encounterKettering Health [facility] Center03-25-2022 Miscellaneous Notes* Telephone Encounter - Shan Parham - 10/11/2021 3:09 PM EDTSummary: IRB#: [id number] Research Outreach IRB# [id number], Qualitative Interviews in Postoperative Gastrointestinal Dysfunction (POGD). PI: Shilpa Storm MD, SANJIV, FASA. Outcomes Research Department. Anesthesia [place]. This is a research study note. Patient [...] there for his review. Shan Parham Research Paid Search Manager Anesthesiology [place] Outcomes Research Department documented in this encounterKettering Health Behavior[facility] Center03-24-2022 History of Present illness Narrative* Jay Gonzalez MD - 10/10/2021 1:37 PM EDT [facility] - Follow Up [...] the care that he received while at [facility]. Objective: AAOx3, NAD Non-labored respirations on room [...] Gonzalez MD 10/10/21, 1:37 PM General Surgery [facility] documented in this encounterKettering Health [facility] Center03-24-2022 History of Present illness Narrative* Jus Medina MD - 10/10/2021 11:00 AM EDT HPI Lizzy Yee is a 75 year old male here today for postop Open subtotal colectomy with stapled iuen-[id number] ileosigmoid anastomosis ventral herniorrhaphy with transversus abdominus [...] months Jus Medina MD documented in this encounterKettering Health [facility] Center03-24-2022 Nurse Note* Elena Ferrell MA - 10/10/2021 10:45 AM EDT What is the reason for your visit today? Follow up Who is your referring physician? Self Are you having poor oral intake? NO Have you had unintentional weight loss of 15 lbs/7 Kg in the last 3-6 months? NO Bowels: regular Wound: none Temperature: No Drains: No documented in this encounterKettering Health [facility] Center03-08-2022 History of Past illness Narrative* Problem Noted Date Resolved Date 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 documented as of this encounter (statuses as of 10/10/2021) [address]08-2022 History of Past illness Narrative* Problem Noted Date Resolved Date 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 documented as of this encounter (statuses as of 10/10/2021) [facility]03-[facility] History of Past illness Narrative* Problem Noted Date Resolved Date 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 documented as of this encounter (statuses as of 10/11/2021) [address]08-2022 History of Past illness Narrative* Problem Noted Date Resolved Date 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 documented as of this encounter (statuses as of 02/05/2022) [facility] History of Past illness Narrative* Problem Noted Date Resolved Date 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 documented as of this encounter (statuses as of 10/07/2022) [address]08-2022 History of Past illness Narrative* Problem Noted Date Resolved Date 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 documented as of this encounter (statuses as of 10/12/2022) [address]08-2022 History of Past illness Narrative* Problem Noted Date Resolved Date 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 documented as of this encounter (statuses as of 10/12/2022) [facility]03[facility] History of Past illness Narrative* Problem Noted Date Resolved Date 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 documented as of this encounter (statuses as of 10/16/2022) [facility]03[facility] History of Past illness Narrative* Problem Noted Date Diagnosed Date Resolved Date 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 documented as of this encounter (statuses as of 10/28/2023) [facility]06-12-2021 NoteMR#: [id number] 2 [facility] Pt. Name: Lizzy Yee Admitted: 12/26/2020 Discharged: 12/29/2020 Date of : 1945 Physician: Ty Avalos M.D. DISCHARGE SUMMARY [facility] Pt. Name: Kurt Yee Admitted: 12/26/20 [...] CONDITION AT DISCHARGE: Stable DISPOSITION: Home with [facility] DISCHARGE INSTRUCTIONS: Take medications as prescribed, [...] Cano MD Date Trans: 12/29/2020 08:18 P/ BARRETT_JN:[id number] cc: Juancarlos Cuenca D.O. [address] [place] [phone] Health Fairfield HospitalEvaluation + Plan note No data available for this section [facility] CenterEvaluation [facility]* Diagnosis Ventral incisional hernia- Primary documented in this encounter [facility] note* Diagnosis Polyposis of colon- Primary Benign neoplasm of colon documented in this encounter [facility] note* Diagnosis Polyposis of colon- Primary Benign neoplasm of colon Incisional hernia, without obstruction or gangrene Incisional hernia without mention of obstruction or gangrene documented in this encounter [facility] noteNo [email or web address] Other Evaluation note* Diagnosis Ventral incisional hernia documented in this encounter [facility] note* Diagnosis Ventral incisional hernia- Primary documented in this encounter [facility] note* Diagnosis Onset Date Resolution Status ASHD (arteriosclerotic heart disease) acute Elevated cholesterol acute NARINDER (generalized anxiety disorder) acute Obesity acute Obstructive sleep apnea acut e Primary hypertension acute [id number] acute [id number] acute ASHD (arteriosclerotic heart disease) acute Elevated cholesterol acute Obstructive sleep apnea acut e Primary hypertension acute Type 2 diabetes mellitus wit h diabetic peripheral angiopathy without gangrene acute 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 Type 2 diabetes mellitus with hyperglycemia acute [facility] Work Phone: History general Narrative - Reported* [...] RIGHT HEMICOLECTOMY 2003 Hospitalization History SEE SURGICAL [employer] Other History general Narrative - Reported* Type [...] History Colonoscopy 12/2022 Hospitalization History SEE SURGICAL [employer] Other History general Narrative - Reported* Type [...] anaya 03/2023 Hospitalization History SEE SURGICAL HX [facility] Other Hospital Discharge instructions No data available for this section [facility] CenterProgress note No data available for this section [facility] CenterReason for referral (narrative)* Reason 10/09/22 Referral for carotid artery stenosis Diagnosis 1 Left carotid artery stenosis (I65.22) [facility] Referring Provider First Name Juancarlos Referring Provider Last Name Bang Referring Provider Specialty Internal Me dicine Referred [facility] Referred Provider Jyoti Mccurdy Referred Address [address], [place],[address] Referred Provider Specialty Vascular Ruslan kajal Referral Priority Routine Referral Appointment Date 2022-10-09 General Notes Mr. Hooper is being r eferred for carotid artery stenosis. He recently completed carotid artery US at [facility], which revealed 87% left carotid bulb stenosis. The ICA velocities are not elevated, which was suggested to be due to hemodynamically significant stenosis in the left bulb. Seema Jaquez 09/23/2022 01:11:23 PM >received today, attachments made, referral faxed Janae Fulton 09/29/2022 02:11:56 PM > Patient is scheduled on 10/09 at 10 a.m. at [facility] Clinical Notes Mr. Hooper is being r eferred for further evaluation and treatment of left carotid artery stenosis. He has multiple risk factors, including HTN, HLD, DM and PAD. He has no history of TIA or CVA. He denies diplopia, loss of vision, dysarthria, facial droop or unilateral extremity weakness. 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 Advance Directive(s) 09/24/2021 8:40 AM Advance Directive(s) 06/07/2021 10:19 AM Advance Directive(s) 05/15/2021 3:36 PM M ain Documents on File Type Date Recorded 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 Appliance Technician Expl 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 Advance Directive(s) 09/24/2021 8:40 AM Advance Directive(s) 06/07/2021 10:19 AM Advance Directive(s) 05/15/2021 3:36 PM M ain Documents on File Type Date Recorded 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 Appliance Technician Expl 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 Advance Directive(s) 09/24/2021 8:40 AM Documents on File Type Date Recorded 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 Appliance Technician Expl anation Advance Directive(s) 09/24/2021 8:40 AM Advance Directive Response Recorded Date/ Time Advance Directives No August 05, 2023 12:06pm Reason for Referral Specialty Diagnoses / Procedures Referred By Contac t Referred To Contact CT IMAGING Diagnoses Ventral incisional hernia Procedures CT ABD/PEL WO IVCON CT ABD & PELVIS W/O CONTRAST Jay Gonzalez MD [facility] [place] [address] Ct Imaging Referral ID Status Reason Start Date Expiration Date Visits Requested Visits Authorized [id number] Pending Review Auto-Generat ed Referral 10/10/2022 11/09/2022 1 1 Referral ID Status Reason Start Date Expiration Date V isits Requested Visits Authorized [id number] Closed Auto-Generate d Referral 10/10/2022 11/09/2022 1 1 Specialty Diagnoses / Procedures Referred By Contac t Referred To Contact CT IMAGING Diagnoses Ventral incisional hernia Procedures CT ABD/PEL WO IVCON CT ABD & [place] [address] [place] [address] Ct Imaging Referral ID Status Reason Start Date Expiration Date Visits Requested Visits Authorized [id number] Pending Review Auto-Generat ed Referral 10/16/2022 11/15/2023 1 1 Chief Complaint and Reason for Visit Chief Complaint WMN f/u DL 10-14 day DS 3 month follow up Reason for Visit ASHD (arteriosclerot ic heart disease) Elevated cholesterol NARINDER (generalized anxiety disorder) Obesity Obstructive sleep apnea Primary hypertension [id number] ASHD (arteriosclerotic heart disease) Elevated cholesterol Obstructive [...] and content) DATE CREATED AUTHOR 03/11/2021 [facility] DATE CREATED AUTHOR AUTHOR'S ORGANIZ ATION 10/13/2022 [facility] DATE CREATED AUTHOR AUTHOR'S ORGANIZ ATION 12/29/2022 [facility] DATE CREATED AUTHOR AUTHOR'S ORGANIZ ATION 12/29/[address] [facility] DATE CREATED AUTHOR AUTHOR'S ORGANIZ ATION 04/26/2023 [facility] DATE CREATED AUTHOR AUTHOR'S ORGANIZ ATION 08/12/2023 [facility] DATE CREATED AUTHOR AUTHOR'S ORGANIZ ATION 10/29/2023 [facility] DATE CREATED AUTHOR AUTHOR'S ORGANIZ ATION 12/21/2023 [facility] DATE CREATED AUTHOR AUTHOR'S ORGANIZ ATION 03/26/2024 [facility] dical Specialists EPIC Source Comments (unrecognize d section and content) In the event this informatio n is protected by the Federal Confidentiality of Alcohol and Drug Abuse Patient Records regulations: The Federal rules restrict any use of the information to criminally investigate or prosecute any alcohol or drug abuse patient.[facility] CenterIn the event this information is protected by the Federal Confidentiality of Alcohol and Drug Abuse Patient Records regulations: The Federal rules restrict any use of the information to criminally investigate or prosecute any alcohol or drug abuse patient.[facility] CenterIn the event this information is protected by the Federal Confidentiality of Alcohol and Drug Abuse Patient Records regulations: The Federal rules restrict any use of the information to criminally investigate or prosecute any alcohol or drug abuse patient.[facility] CenterIn the event this information is protected by the Federal Confidentiality of Alcohol and Drug Abuse Patient Records regulations: The Federal rules restrict any use of the information to criminally investigate or prosecute any alcohol or drug abuse patient.[facility] CenterIn the event this information is protected by the Federal Confidentiality of Alcohol and Drug Abuse Patient Records regulations: The Federal rules restrict any use of the information to criminally investigate or prosecute any alcohol or drug abuse patient.[facility] CenterIn the event this information is protected by the Federal Confidentiality of Alcohol and Drug Abuse Patient Records regulations: The Federal rules restrict any use of the information to criminally investigate or prosecute any alcohol or drug abuse patient.[facility] CenterIn the event this information is protected by the Federal Confidentiality of Alcohol and Drug Abuse Patient Records regulations: The Federal rules restrict any use of the information to criminally investigate or prosecute any alcohol or drug abuse patient.[facility] CenterIn the event this information is protected by the Federal Confidentiality of Alcohol and Drug Abuse Patient Records regulations: The Federal rules restrict any use of the information to criminally investigate or prosecute any alcohol or drug abuse patient.[facility] CenterIn the event this information is protected by the Federal Confidentiality of Alcohol and Drug Abuse Patient Records regulations: The Federal rules restrict any use of the information to criminally investigate or prosecute any alcohol or drug abuse patient.[facility] Reason for Visit (unrecogniz ed section and content) Reason Comments Follow Up Reason Comments Follow Up Reason Onset Date Comments Research 10/11/2021 Reason Comments Established Patient Follow-Up Reason Comments Patient Question Specialty Diagnoses / Procedures Referred By Celineac t Referred To Contact CT IMAGING Diagnoses Ventral incisional hernia Procedures CT ABD/PEL WO IVCON CT ABD & PELVIS W/O CONTRAST Jay Gonzalez MD [address] [place], [place] [id number] Ct Imaging Referral ID Status Reason Start Date Expiration Date V isits Requested Visits Authorized [id number] Closed Auto-Generate d Referral 10/10/2022 11/09/2022 1 1 Reason Comments Follow Up 1 year, ventral inci sional hernia Care Teams (unrecognized sec tion and content) Cuffing Machine Operator Relationship Specialty Start Date End Date Juancarlos Cuenca DO PCP - General Internal Medicine 10/23/[address] [facility] [address] [place] [phone] Cardiology 09/13/21 Cuffing Machine Operator Relationship Specialty Start Date End Date Juancarlos Cuenca DO PCP - General Internal Medicine 10/23/[address] [facility] [address] [place] [address] Cardiology 09/13/21 Cuffing Machine Operator Relationship Specialty Start Date End Date Juancarlos Cuenca DO PCP - General Internal Medicine 10/23/[address] [facility] [address] [place] [phone] Cardiology 09/13/21 Cuffing Machine Operator Relationship Specialty Start Date End Date Juancarlos Cuenca, DO PCP - General Internal Medicine 10/23/14 Pedro Richardson MD Cardiology 09/13/21 Cuffing Machine Operator Relationship Specialty Start Date End Date Juancarlos Cuenca DO PCP - General Internal Medicine 10/23/14 Pedro Richardson MD Cardiology 09/13/21 Cuffing Machine Operator Relationship Specialty Start Date End Date Juancarlos Cuenca DO PCP - General Internal Medicine 10/23/14 Pedro Richardson MD Cardiology 09/13/21 Cuffing Machine Operator Relationship Specialty Start Date End Date Juancarlos Cuenca DO PCP - General Internal Medicine 10/23/14 Perdo Richardson MD Cardiology 09/13/21 Cuffing Machine Operator Relationship Specialty Start Date End Date Juancarlos Cuenca DO PCP - General Internal Medicine 10/23/14 Pedro Richardson MD Cardiology 09/13/21 Cuffing Machine Operator Relationship Specialty Start Date End Date Juancarlos Cuenca DO PCP - General Internal Medicine 10/23/14 Pedro Richardson MD Cardiology 09/13/21 Team Status: Active Member Role Status Dates Juancarlos Cuenca , Primary Care Provider Active Team Status: Active Member Role Status Dates Juancarlos Bang DO Primary Care Provide r, Attending Provider Active Start: October 09, 2023 Team Status: Inactive Member Role Status Dates Juancarlos Cuenca , Primary Care Provider Active Start: November 04, [...] BE BASED ON THE PRIMARY CLINICAL RECORDS. [facility]. provides no warranty or guarantee of the accuracy or completeness of information in this document.
[2024-04-11 08:52] VITALS: BP 144/79; PULSE 58; TEMP 37; O2SAT 96
[2024-04-11 09:04] LABS: Glucometer 212 mg/dL (74-106)
[2024-04-11 09:26] VITALS: BP 140/67; PULSE 57; O2SAT 96
[2024-04-11 09:36] VITALS: BP 108/55; PULSE 50; O2SAT 96
--- NOTE | 2024-04-11 09:43 | P.ON_ITS ---
Date of procedure: 04/11/24 Pre-op diagnosis: Pain due to lumbar spondylosis without myelopathy Post-op diagnosis: same as pre-op Procedure: Procedure: Bilateral L4-5, L5-S1 radiofrequency ablation Medications: Bupivacaine 0.25% 6cc, lidocaine 2% 6cc, kenalog 80mg The patient was seen and examined in the preoperative holding area.? The site was marked.? Written informed consent was obtained and placed on the chart.? The patient was brought to the medical procedure unit and placed in the prone position.? A timeout was completed verifying correct patient, procedure, positioning, and special requirements.? The skin overlying the target points, the designated medial branch, were prepped and draped in the usual sterile fashion.? The target point was achieved with a 20-gauge 15 cm with a 10 mm curved active tip radiofrequency cannula under direct fluoroscopic visualization.? The needle was inserted at level L4 on the right side. Needle tip position was confirmed with lateral fluoroscopic position.? Motor stimulation was carried out at 2 Hz up to 5 volts with the absence of extremity activity.? This was repeated at level L5, S1 on right side.?? Sensory stimulation was carried out.? Concordant pain was realized at the above- mentioned sites.? Then radiofrequency lesioning was carried out times 90 seconds at 80 degrees times 2 lesions at each level.? The radiofrequency probe was removed prior to cannula removal.? The above-mentioned injectate was placed in 1 mL increments.? The needle was removed. The same procedure, with the same steps, was then completed on the left side at the same levels. Insertion sites were covered.? The patient was taken to the postoperative recovery area and monitored for an appropriate length of time before being found suitable for discharge in the company of a responsible adult. Anesthesia: Local Surgeon: Hanh Wade Pathology: none sent Condition: stable Disposition: no change
[2024-04-11] MEDS: BUPIVACAINE HCL 0.25% PF 25 MG/10 ML VIAL 4 ML INJ (09:44)
[2024-04-11] MEDS: LIDOCAINE HCL 2% 400 MG/20 ML MDV 16 ML INJ (09:44)
[2024-04-11] MEDS: TRIAMCINOLONE ACETONIDE 40 MG/ML VIAL 80 MG INJ (09:45)
== END 2024-04-11 09:46 | disposition home or self-care (01) ==
LOC: SURGOUT 08:27
PROVIDERS: PCP Internal Medicine; Visit Provider Anesthesiology
DX: M47.816 Spondylosis without myelopathy or radiculopathy, lumbar region (principal)
CPT/HCPCS: 36415; 64635; 64636; 82948; J0665; J3301

== ENCOUNTER 2024-05-09 07:46 | Outpatient (OUT) | payer MEDICARE, SELFPAY ==
--- OUTSIDE RECORDS SUMMARY | 2024-05-09 07:49 | XMS_ITS | CCD ---
Author Organization [facility] Care Team Providers Care Thermal Spray Operator Name Role Phone JUANCARLOS CUENCA Referring Unavailable JUANCARLOS CUENCA Primary Care Unavailable Delonte Webb Admitting Unavailable Delonte Webb Attending Unavailable JUANCARLOS CUENCA Referring Unavailable TY AVALOS Surgeon Unavailable TY AVALOS Admitting Unavailable JUANCARLOS CUENCA Primary Care Unavailable TY AVALOS Attending Unavailable [place] Procedure Practitioner Unavailab Juancarlos Delatorre DO Primary Care Provider Pedro Richardsonmed Unavailable Dylan VANESSA, ab Ahmed Unavailable JUANCARLOS CUENCA Primary Care Physician [phone] Juancarlos Cuenca Unavailable Juancarlos Cuenca DO Primary [...] Consulting Unavailable BANG, DR VEGA Admitting Unavailable ZIEBPREETI, DR GABY Patel Consulting Unavailable ADAMS ., DR EVAN Mcleod Admitting Unavailable ADAMS ., DR EVAN Mcleod Consulting Unavailable BANG, DR VEGA Primary Care Unavailable ADAMS ., DR EVAN Mcleod Attending Unavailable LELA HUGHES Consulting Unavailable NILL, Nya Patel Attending Unavailable NILL, Nya Patel Attending Unavailable NILL, Nya Patel Attending Unavailable FitbrinaEstrellan Unavailable JAY GONZALEZ Attending Unavailable JUANCARLOS CUENCA Primary Care Unavailable ANGELA BINGHAM Attending Unavailable JOANNA ORTEGA Attending Unavailable OTILIA, ANGELA Gonzalez Attending Unavailable ANGELA BINGHAM Attending Unavailable Mauro VANESSA, Hanh Chiang Attending Unavailable Mauro VANESSA, Hanh Chiang Attending Unavailable Mauro VANESSA, Hanh Chiang Attending Unavailable Juancarlos Cuenca Admitting Unavailable Juancarlos Cuenca Attending Unavailable Juancarlos Cuenca Primary Care Unavailable Ej Anthony II Attending UnavailEj Santos II Admitting UnavailJuancarlos Post Primary Care Unavailable DO Juancarlos Cuenca Primary Care Provider MD Ej Anthony II Attending Provider PEDRO RICHARDSON Attending Unavailable Allergies Allergy Classification Reported Allergen(s) Allergy Type Date of Onset Reaction(s) Facility (20 sources) Morphine; Translations: [morphine] Drug Allergy Unknown [facility] Repository (1 source) Morphine Drug Allergy 12-08-2023 [facility] Repository Medications Current Medications Medication Drug Class(es) Dates Sig (Normalized) Sig (Original) Accu-Chek Guide - (20 sources) Accu-Chek Guide - USE TO TEST HOME BLOOD SUGAR ONCE DAILY for 90 Active amLODIPine 5 mg oral tablet (16 sources) Dihydropyridine Calcium Channel Ciera Start: 03-09-2024 take 5 mg by mouth once daily Amlodipine Active 5 MG PO Daily March 09, 2024 1:57pm please fill, patient lost medication Start: 09-11-2023 End: 03-09-2024 take 1 tablet by mouth once daily Amlodipine Discontinued 0 .ROUTE .COMPLEX March 03, 2024 7:28am March 09, 2024 1:59pm TAKE 1 TABLET BY MOUTH EVERY DAY FOR 30 DAYS Start: 09-07-2023 End: 09-11-2023 take 5 mg by mouth once daily Amlodipine Discontinued 5 MG PO Daily September 07, 2023 1:00am September 11, 2023 8:01am Start: 05-17-2023 take 1 tablet by gael th every twenty-four hours amLODIPine Besylate 5 [...] daily. 0 Active take 1 tablet by gael th every twenty-four hours Aspirin 81 MG 1 tablet Orally Once a day Active Comment on above: Take by mouth once d aily. Aspirin 81 mg Tab-EC (1 source) Start: 03-14-2021 take 1 tablet by mouth once daily Aspirin 81 mg Tab-EC 81 mg = 1 tab(s), Oral, Daily, Blood Thinner Start Date: 03/14/21 Status: Ordered baclofen 10 mg oral tablet (2 sources) gamma-Aminobutyri c Acid-ergic Agonist Start: 09-16-2023 Baclofen [...] 03/11/21 Status: Ordered take 1 tablet by gael th twice daily Carvedilol 12.5 MG TAKE [...] (20 sources) P2Y12 Platelet Inhibitor Start: 04-14-20 End: 01-23-20 take 75 mg by mouth once daily Clopidogrel Active 75 MG PO Daily 90 January 23, 2024 3:12pm Comment on above: Take 75 mg by mouth once daily. Cranberry preparation (1 source) Non-Standardized Food Allergenic Extract, Non-Standardized Plant Allergenic Extract Start: 04-14-20 cranberry Oral, Daily, Refill(s) 0, Prophylaxis Start Date: 04/14/19 Status: Ordered diclofenac sodium 0.01 mg/mg topical gel (1 source) Nonsteroidal Anti-inflammatory Drug Start: 04-21-20 apply 2 g topically once Diclofenac Sodium Active 2 GM TOPICAL as directed 08 18April 21, 2024 12:00am up to 4x's a day empagliflozin 10 mg oral tablet (2 sources) Sodium-Glucose Cotransporter 2 Inhibitor Start: 05-06-20 take 1 tablet by mouth every twenty-four hours Jardiance 10 MG 1 tablet Orally Once a day for 30 days Apr, Active enteric contrast (will be provided with radiology test) (1 source) Start: 10-17-19 End: 03-30-20 23 take 1 dose by mouth once, then [...] as designated per enteric contrast guidelines escitalopram 5 mg oral tablet (3 sources) Serotonin Reuptake Inhibitor Start: 03-31-20 take 1 tablet by mouth once daily Escitalopram Oxalate Active 0 .ROUTE .COMPLEX 90 March 31, 2024 6:11pm TAKE 1 TABLET BY MOUTH EVERY DAY Start: 03-09-2024 End: 03-31-2024 take 5 mg by mouth once daily Escitalopram Oxalate Dis continued 5 MG PO Daily March 09, 2024 12:00am March 31, 2024 6:11pm Start: 03-11-2021 take 1 mg by mouth once daily escitalopram 10 mg Tab mg tab(s), Oral, Daily, Refills(s) 0, Depression Start Date: 03/11/21 Status: Ordered Fish Oils (1 source) Start: 04-14-2019 Fish Oil Oral, Daily, Refill(s) 0, Prophylaxis Start Date: 04/14/19 Status: Ordered glipiZIDE 5 mg oral tablet (20 sources) Sulfonylurea Start: 12-07-2023 take 2 tablets by mouth at breakfast, [...] meal Start: 06-16-2023 take 1 tablet by gael th at dinner glipiZIDE 10 MG 1 [...] 90 days Active take 1 tablet by gael th at dinner glipiZIDE 5 MG 1 tablet Orally 30 minutes prior to bkfst and evening meal for 30 days Active Comment on above: once daily. hydroCHLOROthiazide 25 mg oral tablet (20 sources) Thiazide Diuretic Start: 024 take 1 tablet by mouth every other day Hydrochlorothiazide Active 0 .ROUTE .COMPLEX December 23, 2023 10:12am TAKE 1 TABLET BY MOUTH EVERY OTHER DAY Start: 10-12-2023 End: 12-23-2023 take 1 tablet by mouth once daily Hydrochlorothiazide Discontinued 0 .ROUTE .COMPLEX 90 October 12, 2023 5:17pm December 23, 2023 10:13am TAKE 1 TABLET BY MOUTH EVERY DAY Start: 09-07-2023 End: 10-12-2023 take 25 mg by mouth once daily Hydrochlorothiazide Discontinued 25 MG PO Daily September 07, 2023 1:00am October 12, 2023 5:18pm Start: 04-14-2019 hydrochlorothi azide Oral, Daily, Refills(s) 0, High blood pressure Start Date: 04/14/19 Status: Ordered take 1 tablet by gael th every other day hydroCHLOROthiazide 25 MG 1 tablet Orally qod for 30 days Active Comment on above: Take 25 mg by mouth once daily. lisinopril 30 mg oral tablet (20 sources) Angiotensin Converting Enzyme Inhibitor Start: 03-18-2024 take 1 tablet by mouth once daily Lisinopril Active 0 .ROUTE .COMPLEX 90 March 18, 2024 6:47am TAKE 1 TABLET BY MOUTH EVERY DAY Start: 09-07-2023 End: 03-18-2024 take 30 mg by mouth once daily Lisinopril Discontinued 30 MG PO Daily September 07, 2023 1:00am March 18, 2024 6:47am Start: 04-14-2019 lisinopril Ora l, Daily, Refills(s) 0, High blood pressure Start Date: 04/14/19 Status: Ordered Lisinopril 30 MG TAKE 1 TABLET BY MOUTH EVERY DAY Orally Once a day Active Lisinopril 20 MG TAKE 1 TABLET BY MOUTH EVERY DAY Orally Once a day for 30 days Active take 1 tablet by gael th once daily Lisinopril 10 MG TAKE 1 TABLET BY MOUTH EVERY DAY Active take 1 tablet by gael th once daily lisinopril (ZESTRIL, PRINIVIL) 5 mg tablet Take 5 mg by mouth once daily. 0 Active Comment on above: Take 5 mg by mouth o nce daily. pantoprazole 40 mg delayed release oral tablet (20 sources) Proton Pump Inhibitor Start: take 1 tablet by mouth once daily at breakfast Pantoprazole Active 0 .ROUTE .COMPLEX 90 January 04, 2024 12:45pm TAKE 1 TABLET BY MOUTH DAILY ON EMPTY STOMACH FOLLOWED IN 30 MINUTES BY BREAKFAST Start: 09-07-2023 End: 01-04-2024 take 1 tablet by mouth once daily at breakfast Pantoprazole Discontinued 40 MG PO Daily September 07, 2023 1:00am January 04, 2024 12:45pm TAKE 1 TABLET BY MOUTH DAILY ON [...] Ordered traMADol hydrochloride 50 mg oral tablet (2 sources) Opioid Agonist Start: 09-16-2023 Tramadol Active 50 [...] CPAP (9 sources) CPAP daily at be dtipr. 0 Active Comment on above: daily at [...] 2023 10:53am take [address] [facility] every twenty-four hours Gabapentin 100 MG 1 [...] aily. meclizine hydrochloride 25 mg oral tablet (18 sources) Antiemetic Start: End: 4 take 25 mg by mouth every twelve hours Meclizine Discontinued 25 MG PO Every 12 hours September 16, 2023 12:16pm November 04, 2023 10:54am [facility] Meclizine HCl 25 [...] 04/14/19 Status: Ordered take 1 tablet by gael every twelve hours metFORMIN HCl 500 MG 1 tablet with a meal Orally twice a day Not-Taking take 1 tablet by gael every twenty-four hours metFORMIN HCl 1000 MG 1 tablet with a meal Orally Once a day Active Comment on above: Take 1,000 mg by gael twice daily with meals. MULTI-VITAMIN ORAL (9 sources) MULTI-VITAMIN OR AL Take by mouth once daily. 0 Active Comment on above: Take by mouth once d aily. ondansetron 4 mg disintegrating oral tablet (18 sources) Serotonin-3 Receptor Antagonist Start: 09-07-2023 End: 11-04-2023 Ondansetron Discontinued 4 MG TRANSLINGU Daily September 16, 2023 12:16pm November 04, 2023 10:55am take 1 tablet by [facility] every twenty-four hours Ondansetron 4 MG 1 [...] Comment on above: TAKE 1 TABLET BY [facility] EVERYDAY AT BEDTIME tamsulosin hydrochloride 0.4 mg oral capsule (6 sources) alpha-Adrenergic Ciera Start: 2 End: 2 take 1 capsule by mouth once daily tamsulosin (FLOMAX) 0.4 mg Take 1 capsule by mouth once daily. 30 capsule 0 10/01/2021 Active Comment on above: Take [address] [facility] once daily. Vitamin B Complex (9 sources) [...] anxiety disorder] 03-11-2021 Chronic Biliary tract disease (2 sources) Cholangiectasis; Translations: [Other specified diseases of biliary tract] 10-19-2023 Chronic Biliary tract disease (20 sources) Disorder of gallbladder; Translations: [Other specified diseases of gallbladder] Episodic Conditions associated with dizziness or vertigo (20 sources) Benign paroxysmal positional vertigo; Translations: [Benign paroxysmal vertigo, bilateral] 03-13-2021 Episodic Coronary atherosclerosis and other heart disease (20 sources) Coronary arteriosclerosis; Translations: [Atherosclerotic heart disease of [place] coronary artery without angina pectoris] Onset: 05-19-2022 [...] Hypertensive disorder; Translations: [Essential (primary) hypertension] Onset: 09-17-2022 09-13-2021 Chronic Genitourinary symptoms and ill-defined conditions [...] aftercare (9 sources) 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; Translations: [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 exterminator (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) use of antithrombotics/antip latelets] 09-13-2021 Episodic [...] unspecified Episodic Other and unspecified benign neoplasm (2 sources) Familial multiple polyposis syndrome; Translations: [Familial multiple polyposis syndrome] 09-07-2023 Episodic Other liver diseases (2 sources) Elevated liver enzymes level; Translations: [Abnormal levels of other serum enzymes] 10-19-2023 Episodic Other nervous system disorders (1 source) Other chronic pain; Translations: [OTHER CHRONIC PAIN] Onset: 11-05-2022 Chronic Other nervous system disorders (20 sources) Paresthesia; Translations: [Paresthesia of skin] Episodic Other non-traumatic joint disorders (4 sources) Pain in left hip; Translations: [PAIN IN LEFT HIP] Onset: 11-28-2022 Episodic Other non-traumatic joint disorders (7 sources) Pain in left knee; Translations: [Left knee pain] Onset: 03-30-2022 Episodic Other nutritional; endocrine; and [...] nutritional; endocrine; and metabolic disorders (2 sources) Obesity caused by energy imbalance; Translations: [Morbid (severe) obesity due to excess calories] 09-07-2023 Chronic Other nutritional; endocrine; and metabolic disorders (2 sources) Obesity; Translations: [Obesity, unspecified] 10-01-2023 Chronic Other nutritional; endocrine; and metabolic disorders (2 sources) Obesity, unspecified; Translations: [Obesity, unspecified] 11-04-2023 Chronic Other screening for suspected conditions (not mental disorders or infectious disease) (20 sources) Imaging of biliary tract abnormal; Translations: [Prerenal azotemia] Onset: 05-04-2024 03-14-2021 Episodic Other skin disorders (20 sources) Vesicular eczema of hands and/or feet; Translations: [Dyshidrosis [pompholyx]] Episodic Peripheral and visceral atherosclerosis (17 sources) Atherosclerosis of [place] arteries of extremities with rest pain, right leg; Translations: [Atherosclerosis of [place] artery of right lower extremity with rest pain] Chronic Residual codes; unclassified (10 sources) Sleep apnea; Translations: [Sleep apnea, unspecified] 09-13-2021 Chronic Residual codes; unclassified (20 sources) Obstructive sleep apnea syndrome; Translations: [Obstructive sleep apnea (adult) (pediatric)] 09-07-2023 Chronic Residual codes; unclassified (8 sources) Obstructive sleep apnea (adult) (pediatric); Translations: [...] without hemorrhage] Other aftercare (3 sources) Other long term care phlebotomist (current) drug therapy; Translations: [OTH SONG PLUGGER CURRENT DRUG THERAPY] Onset: 09-17-2022 Episodic Other and unspecified benign neoplasm (12 sources) Polyp of colon; Translations: [Polyp of colon] Onset: 06-07-2021 06-07-2021 Episodic Unclassified (1 source) LOW BACK PAIN, UNSPECIFIED; Translations: [LOW BACK PAIN, UNSPECIFIED] Onset: 04-24-2022 Results Test Name Value Interpretation Reference Range Facility Office Visiton 05-04-2024 Follow-up visit [id number] Vu Yee 1945 M Date Provider Department Center 05/04/2024 [facility]-KRYSTLETAARACELIS, AB CARD [facility] Family History Problem Relation Age of Onset Coronary artery disease Mother Coronary artery disease Brother Family Status - Relation Status Age at Mother Brother Level of Service:57896 [place] OFFICE/OUTPATIENT ESTABLISHED MOD MDM 30 MIN Normal [facility] XR knee LT 4V*on 04-21-2024 XR knee LT 4V* [facility] [address] [email or web address] [address] XRay Report Signed Patient: Lizzy Yee MR#: [id number] : 1945 Acct:[id number] Age/Sex: 78 / M ADM Date: 04/21/24 [place] [facility] Room: Type: [facility] CLI Attending Dr: Ej Anthony II, MD Copies to: Ej Anthony MD Ordering Provider: Ej Anthony MD Date of Service: 04/21/24 XR/XR pelvis 1-2V: M25.562 - Pain in left knee ([id number]) XR/XR knee LT 4V*: M25.562 - Pain in left knee AP PELVIS: Left knee 4 views CLINICAL HISTORY: Left knee pain for years. No known injury. COMPARISON: None Pelvis: Right WILMAR without radiographic complication. Degenerative changes along the visualized lower lumbar spine and SI joints as well as pubic symphysis. Minimal degenerative changes involving the left hip with calcification in the region of the labrum suggestive of prior injury. Left knee: Moderate degenerative changes of the left knee with medial weightbearing joint space narrowing. Small joint effusion. No acute bony process. Soft tissues demonstrate postsurgical change and vascular calcifications. XR/XR pelvis 1-2V IMPRESSION: DEGENERATIVE CHANGES INVOLVING THE PELVIS AND LEFT KNEE WITHOUT ACUTE BONY PROCESS. Impression dictated by: Jus Jimenez Jr., D.OHerve04/21/2024 2:51 PM Dictation Location: [facility] Transcribed By: [facility] 04/21/24 1451 Dictated By: Jus Jimenez Jr, DO 04/21/24 1449 Signed By: 04/21/24 1451 Normal [facility] Keyshawn 10-27-2023 [facility] Telephone ([facility]) LIZZY YEE ([id number]) 1945 M Date Time Provider Department 10/27/23 JAY GONZALEZ [facility] During your visit today, we recorded the [...] Patient and or can be reached at [phone]. Thank you. Efrain Loza RN 10/28/2023 8:30 [...] Encounter Status:Closed by EFRAIN ZAMARRIPA on 10/28/[address] [facility] CNOVon 10-15-2023 CNOV Office Visit ([facility] ) LIZZY YEE ([id number]) 1945 M Date Time Provider Department 10/15/23 1:00 PM JAY GONZALEZ [facility] During your visit today, we recorded the following information about you: Temperature Pulse Blood pressure 97.3 degrees 53/minute 127/65 Jay Gonzalez MD 10/15/2023 1:41 PM Signed [facility] - Follow [...] Gonzalez MD 10/15/23, 1:38 PM General Surgery [facility] Medical Decision Making: Problems: Low: Stable chronic illness Risk: Low: Low risk from testing/treatment Medical Decision Making Level: 3 - Destiny Cheng, VERÓNICAA 10/15/2023 1:04 PM Signed What is the [...] HLD (hyperlipidemi (more content not included)... Normal [facility] Cholesterol in LDL Calc [Mas s/Vol]on 10-09-2023 Cholesterol in LDL [Mass/Vol] 46.6 mg/dL [facility] Comment on above: <100 mg/dl [id number] 0-129 mg/dl NEAR OR ABOVE [id number] mg/dl BORDERLINE [id number] mg/dl HIGH>190 mg/dl VERY HIGH Cholesterol in VLDL Calc [Ma ss/Vol]on 10-09-2023 Cholesterol in VLDL [Mass/Vol] 14.4 mg/dL [facility] Estimated glomerular filtrat ion rate (GFR) non- Americanon 10-09-2023 GFR/1.73 sq M.predicted among non-blacks MDRD (S/P/Bld) [Vol rate/Area] 54 mL/min/{1.73_m2} >=60 [facility] Globulin Calc (S) [Mass/Vol] on 10-09-2023 Globulin (S) [Mass/Vol] 3.9 g/dL [facility] Glucose mean value [Mass/vol ume] in Blood Estimated from glycated hemoglobinon 10-09-2023 Average glucose Estimated from glycated hemoglobin (Bld) [Mass/Vol] 186 mg/dL [facility] Laboratory - Chemistry and C hemistry - challengeon 10-09-2023 Albumin [Mass/Vol] 3.4 g/dL 3.4-5.0 [facility] ALP [Catalytic activity/Vol] 210 U/L 46-116 [facility] ALT [Catalytic activity/Vol] 236 U/L 16-63 [facility] AST [Catalytic activity/Vol] 169 U/L 15-37 [facility] Bilirubin [Mass/Vol] 0.8 mg/dL 0.2-1.0 [facility] Calcium [Mass/Vol] 9.1 mg/dL 8.5-10.1 [facility] Chloride [Moles/Vol] 101 mmol/L 98-107 [facility] Cholesterol [Mass/Vol] 107 mg/dL <=200 [facility] Cholesterol in HDL [Mass/Vol] 46 mg/dL 40-60 [facility] Comment on above: > or =60 mg/dl - LOW CARDIOVASCULAR RISK<40 mg/dl - HIGH CARDIOVASCULAR RISK CO2 [Moles/Vol] 28.4 mmol/L 21.0-32.0 [facility] Creatinine [Mass/Vol] 1.29 mg/dL 0.70-1.[address] [facility] GFR/1.73 sq M.predicted MDRD (S/P/Bld) [Vol rate/Area] mL/min/{1.73_m2} >=60 [facility] Glucose [Mass/Vol] 100 mg/dL 74-106 [facility] Potassium [Moles/Vol] 4.1 mmol/L 3.5-5.[address] [facility] Protein [Mass/Vol] 7.3 g/dL 6.4-8.2 [facility] Sodium [Moles/Vol] 140 mmol/L 136-145 [facility] Triglyceride [Mass/Vol] 72 mg/dL <=150 [facility] Urea nitrogen [Mass/Vol] 23.0 mg/dL 7.0-18.0 [facility] Urea nitrogen/Creatinine [Mass ratio] 17.8 mg/mg [facility] Laboratory - Hematology and Cell countson 10-09-2023 HbA1c (Bld) [Mass fraction] 8.1 % 4.5-6.2 [facility] Comment on above: ADA RECOMMENDED LIMI T 4.0 - 6.0ADA THERAPEUTIC TARGET < 7.0ACTION SUGGESTED> 7.0 Microalbumin [Mass/volume] i n Urineon 10-09-2023 Albumin DL <= 20 mg/L (U) [Mass/Vol] mg/dL <=30.0 [facility] No Panel Informationon 10-08 Prostate Specific Antigen Screen 0.27 ng/mL <=4.00 [facility] Serum or plasma albumin/glob ulin mass ratioon 10-09-2023 Albumin/Globulin [Mass ratio] 0.9 {ratio} [facility] Serum or plasma anion gap de terminationon 10-09-2023 Anion gap [Moles/Vol] 14.7 mmol/L [facility] Serum or plasma total choles terol/high density lipoprotein (HDL) cholesterol mass venu 10-09-2023 Cholesterol.total/Cho lesterol in HDL [Mass ratio] 2.3 {ratio} [facility] Comment on above: 3.3 - 4.4 LOW RISK4. 4 - 7.1 AVERAGE RISK7.1 - 11.0 MODERATE RISK>11.0 HIGH RISK Outside Colonoscopyon 2022 Outside Colonoscopy [id number] 0CD:127 Normal [facility] Reminderson 12-18-2022 Reminders - From: Amy Menon LPN To: GSN - Clinical; Sent: 12/18/2022 12:06:16 EDT Show up: 11/16/2025 07:00:00 EDT Subject: colonoscopy recall Due Date/Time: 12/17/2025 07:00:00 EDT Reminder/Recall Patient due for surveillance colonoscopy 12/17/2025. Normal [facility] POINT OF CARE GLUCOSEon 11-19 Glucose [Mass/Vol] 176 mg/dL Critically high 74-[address] [facility] Comment on above: Performed By: #### P OCGLUC #### [facility] [address] [address] [address] Rojelio Kingsley POINT OF CARE GLUCOSEon 11-19 Glucose [Mass/Vol] 157 mg/dL Critically high -[address] [facility] Comment on above: Performed By: #### P OCGLUC #### [facility] [address] [address] [address] Rojelio Kingsley Consent for Procedure/Surger yon 12-03-2022 Consent for Procedure/Surgery [id number] 0CD:127 Normal [facility] Physician Referralon 023 Physician Referral [id number] 0CD:127 Normal [facility] General Surgery Office/Clini c Noteon [...] anastomosis and ventral hernia repair 09/2021 at [facility], they recommend yearly surveillance sigmoidoscopies; patient initially [...] 1 tab(s), (more content not included)... Normal [facility] Comment on above: Result Comment: Elec tronically Signed By: PELON VANESSA, Nya Nicholson\Date and Time Signed: 12/02/22 11:37 EDT POINT OF CARE GLUCOSEon 04-2 Glucose [Mass/Vol] 121 mg/dL Critically high 74-[address] [facility] Comment on above: Performed By: #### P OCGLUC #### [facility] [address] [place] [address] Dr. Rojelio Kingsley ALLIED [facility]ALTHon 10-11-2022 [facility] HNO ID: [id number] Author: RT Marisa(R) Service: Radiology Author Type: [...] RT Marisa(R) October 11, 2022 10:29 AM [facility] CT ABD/PEL WO IVCONon 2022 CT [...] site. Lower thorax: Lower lungs are clear. Bellows Filler (topogram) images: Unremarkable. IMPRESSION: Midline fat-containing upper abdominal hernia. Community Relations Advisor: DANIEL Transcribe Date/Time: Oct 13 2022 7:57A Dictated by : YANICK RIVAS MD This examination was interpreted and the report reviewed and electronically signed by: YANICK RIVAS MD on Oct 13 2022 8:06AM EST [id number] [facility] Consent for Procedure/Surger yon 09-17-2022 Consent for Procedure/Surgery [id number] 0CD:127 Normal [facility] RAD - Ultrasound Reporton RAD - Ultrasound Report [id number] 0CD:127 Normal [facility] Ambulatory Visit Summaryon 0 09-16-2022 Ambulatory [...] no longer receiving treatment for. Hyperlipidemia Normal [facility] Ambulatory Visit Summary LIZZY YEE [...] no longer receiving treatment for. Hyperlipidemia Normal [facility] General Surgery Office/Clini c Noteon 09-16-2022 [...] anastomosis and ventral hernia repair 09/2021 at [facility]; requires yearly flexible sigmoidoscopy for surveillance. h/o [...] tab(s), Oral, Daily atorvastatin, 80 mg, Oral, Nahtalie (more content not included)... Normal [facility] Comment on above: Result Comment: Elec tronically Signed By: PELON VANESSA, Nya Nicholson\Date and Time Signed: 09/16/22 11:17 EST Alanine Aminotransferaseon 0 - ALT [Catalytic activity/Vol] 30 U/L Normal 16-63 [employer] Other Comment on above: Performed By: #### B MP, ALT, LIPID #### [facility] [id number] Rojelio Kingsley Basic Metabolic Panelon 08-21 Calcium [Mass/Vol] 9.4592193 mg/dL 8.5-10 .1 mg/dL [place] [employer] Other CO2 [Moles/Vol] 25.08525798 mmol/L 21.0-3 2.0 mmol/L [place] [employer] Other Creatinine [Mass/Vol] 1.68861782 mg/dL Critically high 0.70-1.30 mg/dL [place] [facility] Other Potassium [Moles/Vol] 4.90377167 mmol/L 3 .5-5.1 mmol/L [place] [facility] Other Urea nitrogen [Mass/Vol] 16.7664410 mg/dL 7.0-18.0 mg/dL [place] [facility] [employer] Other Basic Metabolic Panel see note [facility] [employer] Other Basic Metabolic Panel 141 mmol/L 136-14 5 mmol/L [place] [employer] Other Basic Metabolic Panel 134 mg/dL Critically high 74-106 mg /dL [employer] Other Basic Metabolic Panel 51 mL/min/1.73m2 Critically low >=60 mL/min/1.73m 2 [place] [facility] [employer] Other Basic Metabolic Panel >60 mL/min/1.73m2 > =60 mL/min/1.73m 2 [employer] Other Anion gap [Moles/Vol] 15.2 mmol/L Normal No [facility] [employer] Other Comment on above: Performed By: #### B MP, ALT, LIPID #### [facility] [address] [place], [place] [address] Dr. Rojelio Kingsley Chloride [Moles/Vol] 105 mmol/L Normal 98-107 [facility] [employer] Other Comment on above: Performed By: #### B MP, ALT, LIPID #### [facility] [address] [place] [address] Dr. Rojelio Kingsley Urea nitrogen/Creatinine [Mass ratio] 11.8 mg/mg Normal [employer] Other Comment on above: Performed By: #### B MP, ALT, LIPID #### [facility] [address] [place] [address] Dr. Rojelio Kingsley CBC AUTO DIFFon 09-12-2022 BASO # 0.0 103/ul Normal 0.0-0.1 [facility] Comment on above: Performed By: #### C BC #### [facility] [address] [place] [address] Dr. Rojelio Kingsley Basophils/100 WBC (Bld) 0.4 % Normal 0.2-2.0 [facility] Comment on above: Performed By: #### C BC #### [facility] [address] [place] [address] Dr. Rojelio Kingsley EO # 0.3 103/ul Normal 0.0-0.7 [facility] Comment on above: Performed By: #### C BC #### [facility] [address] [place] [address] Dr. Rojelio Kingsley Eosinophils/100 WBC (Bld) 3.6 % Normal 0.9-7.0 [facility] Comment on above: Performed By: #### C BC #### [facility] [address] [place] [address] Dr. Rojelio Kingsley Erythrocyte distribution width (RBC) [Ratio] 14.1 % Normal 11.0-15.0 [facility] Comment on above: Performed By: #### C BC #### [facility] [address] [place] [address] Dr. Rojelio Kingsley Hematocrit (Bld) [Volume fraction] 40.1 % Critically low 42.0-54.0 [facility] Comment on above: Performed By: #### C BC #### [facility] [address] [place] [address] Dr. Rojelio Kingsley Hemoglobin (Bld) [Mass/Vol] 13.4 g/dL Critically low 14.0-18.0 [facility] Comment on above: Performed By: #### C BC #### [facility] [address] [place] [address] Dr. Rojelio Kingsley IG # 0.02 10e3/ul Normal 0.00-0.03 [facility] Comment on above: Performed By: #### C BC #### [facility] [address] [place] [address] Dr. Rojelio Kingsley IG % 0.2 % Normal 0.0-0.5 [facility] Comment on above: Performed By: #### C BC #### [facility] [address] [place] [address] Dr. Rojelio Kingsley LYMPH # 1.8 103/ul Normal 1.2-3.8 [facility] Comment on above: Performed By: #### C BC #### [facility] [address] [place] [address] Dr. Rojelio Kingsley Lymphocytes/100 WBC (Bld) 21.9 % Normal 20.5-60.0 [facility] Comment on above: Performed By: #### C BC #### [facility] [address] [place] [address] Dr. Rojelio Kingsley MANUAL DIFF REQ NO Normal [facility] Comment on above: Performed By: #### C BC #### [facility] [address] [place] [address] Dr. Rojelio Kingsley MCH (RBC) [Entitic mass] 30.6 pg Normal 25.9-34.0 [facility] Comment on above: Performed By: #### C BC #### [facility] [address] [place] [address] Dr. Rojelio Kingsley MCHC (RBC) [Mass/Vol] 33.4 g/dL Normal 29.9-35.2 [facility] Comment on above: Performed By: #### C BC #### [facility] [address] [place] [address] Dr. Rojelio Kingsley MCV (RBC) [Entitic vol] 91.6 fL Normal 80.0-94.0 [facility] Comment on above: Performed By: #### C BC #### [facility] [address] [place] [address] Dr. Rojelio Kingsley MONO # 0.8 103/ul Normal 0.3-0.8 [facility] Comment on above: Performed By: #### C BC #### [facility] [address] [place] [address] Dr. Rojelio Kingsley Monocytes/100 WBC (Bld) 9.3 % Normal 1.7-12.0 [facility] Comment on above: Performed By: #### C BC #### [facility] [address] [place] [address] Dr. Rojelio Kingsley NEUT # 5.4 103/ul Normal 1.4-6.5 [facility] Comment on above: Performed By: #### C BC #### [facility] [address] [place] [address] Dr. Rojelio Kingsley Neutrophils/100 WBC (Bld) 64.6 % Normal 43.0-75.0 [facility] Comment on above: Performed By: #### C BC #### [facility] [address] [place] [address] Dr. Rojelio Kingsley Platelet mean volume (Bld) [Entitic vol] 10.3 fL Normal 9.5-13.5 [facility] Comment on above: Performed By: #### C BC #### [facility] [address] [place] [address] Dr. Rojelio Kingsley PLT 214 103/ul Normal 150-450 [facility] Comment on above: Performed By: #### C BC #### [facility] [address] [place] [address] Dr. Rojelio Kingsley RBC 4.38 106/ul Critically low 4.70-6.10 [facility] Comment on above: Performed By: #### C BC #### [facility] [address] [place] [address] Dr. Rojelio Kingsley WBC 8.4 103/ul Normal 4.0-11.0 [facility] Comment on above: Performed By: #### C BC #### [facility] [address] [address] [address] Rojelio Kingsley GLYCOHEMOGLOBIN A1Con 2022 ADA RECOMMENDATION SEE BELOW Normal [facility] Comment on above: Result Comment: ADA RECOMMENDED LIMIT 4.0 - 6.0 ADA THERAPEUTIC TARGET < 7.0 ACTION SUGGESTED > 7.0 Performed By: #### P OCGLUC #### [facility] [address] [address] [address] Rojelio Kingsley Glucose [Mass/Vol] 169 mg/dL Normal [facility] Comment on above: Performed By: #### P OCGLUC #### [facility] [address] [address] [address] Rojelio Kingsley HbA1c (Bld) [Mass fraction] 7.5 % Critically high 4.5-6.2 [facility] Comment on above: Performed By: #### P OCGLUC #### [facility] [address] [address] [address] Rojelio Kingsley LIPID PROFILEon 09-12-2022 CHOL-HDL RATIO NORM SEE BELOW Normal [facility] Comment on above: Result Comment: 3.3 - 4.4 LOW RISK 4.4 - 7.1 AVERAGE RISK 7.1 - 11.0 MODERATE RISK >11.0 HIGH RISK Performed By: #### B MP, ALT, LIPID #### [facility] [address] [address] [address] Rojelio Kingsley Cholesterol in LDL [Mass/Vol] 31.2 mg/dL Normal [facility] Comment on above: Performed By: #### B MP, ALT, LIPID #### [facility] [address] [address] [address] Rojelio Kingsley HDL NORMAL > or = 60 mg/dl - LO W CARDIOVASCULAR RISK <40 mg/dl - HIGH CARDIOVASCULAR RISK Normal [facility] Comment on above: Performed By: #### B MP, ALT, LIPID #### [facility] [address] [address] [address] Rojelio Kingsley LDL CALC NORMAL SEE BELOW Normal [facility] Comment on above: Result Comment: <100 mg/dl OPTIMAL 100 - 129 mg/dl NEAR OR ABOVE OPTIMAL 130 - 159 mg/dl BORDERLINE HIGH 160 - 189 mg/dl HIGH >190 mg/dl VERY HIGH Performed By: #### B MP, ALT, LIPID #### [facility] [address] [address] [address] Rojelio Kingsley VLDL CALC 40.8 mg/dL Normal [facility] Comment on above: Performed By: #### B MP, ALT, LIPID #### [facility] [address] [address] [address] Rojelio Kingsley Lipid Panelon 09-12-2022 Lipid Panel > or = 60 mg/dl - LO W CARDIOVASCULAR RISK <40 mg/dl - HIGH CARDIOVASCULAR RISK [employer] Other Lipid Panel SEE BELOW [employer] Other Lipid Panel 31.2 mg/dL [employer] Other Lipid Panel 40.8 mg/dL [employer] Other Cholesterol [Mass/Vol] 115 mg/dL Normal <=200 [employer] Other Comment on above: Performed By: #### B MP, ALT, LIPID #### [facility] [address] [address] [address] Rojelio Kingsley Cholesterol in HDL [Mass/Vol] 43 mg/dL Normal 40-60 [employer] Other Comment on above: Performed By: #### B MP, ALT, LIPID #### [facility] [address] [address] [address] Rojelio Kingsley Cholesterol.total/Cho lesterol in HDL [Mass ratio] 2.7 {ratio} Normal [employer] Other Comment on above: Performed By: #### B MP, ALT, LIPID #### [facility] [address] [address] [address] Rojelio Kingsley Triglyceride [Mass/Vol] 204 mg/dL Critically high <=150 [employer] Other Comment on above: Performed By: #### B MP, ALT, LIPID #### [facility] [address] [address] [address] Rojelio Kingsley MICROALBUMIN, RAND URon 02- mALB 2.1 mg/L Normal <=30.0 [facility] Comment on above: Performed By: #### M ALBR #### [facility] [address] [place] [address] Dr. Rojelio Kingsley PROF CHEM 8 (BAS METB)on Calcium [Mass/Vol] 9.6 mg/dL Normal 8.5-10.1 [facility] Comment on above: Performed By: #### B MP, ALT, LIPID #### [facility] [address] [place] [address] Dr. Rojelio Kingsley CO2 [Moles/Vol] 25.1 mmol/L Normal 21.0-32.0 [facility] Comment on above: Performed By: #### B MP, ALT, LIPID #### [facility] [address] [place] [address] Dr. Rojelio Kingsley Creatinine [Mass/Vol] 1.36 mg/dL Critically high 0.70-1.30 [facility] Comment on above: Performed By: #### B MP, ALT, LIPID #### [facility] [address] [place] [address] Dr. Rojelio Kingsley EGFR-AF PORTUGUESE >60 Normal >=60 [facility] Comment on above: Performed By: #### B MP, ALT, LIPID #### [facility] [address] [place] [address] Dr. Rojelio Kingsley EGFR-NON AF [place]UGUESE 51 mL/min/1.73m2 Critically low >=60 [facility] Comment on above: Performed By: #### B MP, ALT, LIPID #### [facility] [address] [place] [address] Dr. Rojelio Kingsley Glucose [Mass/Vol] 134 mg/dL Critically high 74-106 T [facility] Comment on above: Performed By: #### B MP, ALT, LIPID #### [facility] [address] [place] [address] Dr. Rojelio Kingsley Potassium [Moles/Vol] 4.3 mmol/L Normal 3.5-5.1 [facility] Comment on above: Performed By: #### B MP, ALT, LIPID #### [facility] [address] [address] [address] Rojelio Kingsley Sodium [Moles/Vol] 141 mmol/L Normal 136-145 [facility] Comment on above: Performed By: #### B MP, ALT, LIPID #### [facility] [address] [address] [address] Rojelio Kingsley Urea nitrogen [Mass/Vol] 16.0 mg/dL Normal 7.0-18.0 [facility] Comment on above: Performed By: #### B MP, ALT, LIPID #### [facility] [address] [address] [address] Rojelio Kingsley US CAROTID ART BILon [...] GABY PADILLA Date: 2022-09-12 15:22 Normal [facility] US CAROTID ART ZHENG [employer]21 Other POINT OF CARE GLUCOSEon 06-19 Glucose [Mass/Vol] 106 mg/dL Normal 74-106 [facility] Comment on above: Performed By: #### P OCGLUC #### [facility] [address] [address] [address] Rojelio Kingsley [facility]on SARS-CoV-2 (COVID-19) RNA MITCHELL+probe Ql (Unsp spec) Not detected Normal NOT DETECTED [facility] Comment on above: Result Comment: This test is not yet approved or cleared by the [place] FDA. When there are no FDA-approved or cleared tests available, and other criteria are met, FDA can make tests available under an emergency access mechanism called an Emergency Use Authorization (EUA). The EUA for this test is supported by the [place] of Health and Human Service's (HHS's) declaration [...] SARS-CoV-2. Performed By: #### P OCGLUC #### [facility] [address] [address] [address] Rojelio Kingsley POINT OF CARE GLUCOSEon 04-20 Glucose [Mass/Vol] 129 mg/dL Critically high 74-[address] [facility] Comment on above: Performed By: #### P OCGLUC #### [facility] [address] [address] [address] Rojelio Kingsley POINT OF CARE GLUCOSEon 03-21 Glucose [Mass/Vol] 116 mg/dL Critically high 74-[address] [facility] Comment on above: Performed By: #### P OCGLUC #### [facility] [address] [address] [address] Rojelio Kingsley XR LSPINE 2_3 VIEWSon [...] GABY PADILLA Date: 2022-03-05 13:06 Normal [facility] CBC AUTO DIFFon 02-22-2022 BASO # 0.0 103/ul Normal 0.0-0.1 [facility] Comment on above: Performed By: #### P OCGLUC #### [facility] [address] [address] [address] Rojelio Kingsley Basophils/100 WBC (Bld) 0.4 % Normal 0.2-2.0 [facility] Comment on above: Performed By: #### P OCGLUC #### [facility] [address] [address] [address] Rojelio Kingsley EO # 0.3 103/ul Normal 0.0-0.7 [facility] Comment on above: Performed By: #### P OCGLUC #### [facility] [address] [address] [address] Rojelio Kingsley Eosinophils/100 WBC (Bld) 3.0 % Normal 0.9-7.0 [facility] Comment on above: Performed By: #### P OCGLUC #### [facility] [address] [address] [address] Rojelio Kingsley Erythrocyte distribution width (RBC) [Ratio] 14.4 % Normal 11.0-15.0 [facility] Comment on above: Performed By: #### P OCGLUC #### [facility] [address] [address] [address] Rojelio Kingsley Hematocrit (Bld) [Volume fraction] 37.1 % Critically low 42.0-54.0 [facility] Comment on above: Performed By: #### P OCGLUC #### [facility] [address] [address] [address] Rojelio Kingsley Hemoglobin (Bld) [Mass/Vol] 12.2 g/dL Critically low 14.0-18.0 [facility] Comment on above: Performed By: #### P OCGLUC #### [facility] [address] [address] [address] Rojelio Kingsley IG # 0.03 10e3/ul Normal 0.00-0.03 [facility] Comment on above: Performed By: #### P OCGLUC #### [facility] [address] [address] [address] Rojelio Kingsley IG % 0.4 % Normal 0.0-0.5 [facility] Comment on above: Performed By: #### P OCGLUC #### [facility] [address] [address] [address] Rojelio Kingsley LYMPH # 1.8 103/ul Normal 1.2-3.8 [facility] Comment on above: Performed By: #### P OCGLUC #### [facility] [address] [address] [address] Rojelio Kingsley Lymphocytes/100 WBC (Bld) 21.6 % Normal 20.5-60.0 [facility] Comment on above: Performed By: #### P OCGLUC #### [facility] [address] [address] [address] Rojelio Kingsley MANUAL DIFF REQ NO Normal [facility] Comment on above: Performed By: #### P OCGLUC #### [facility] [address] [address] [address] Rojelio Kingsley MCH (RBC) [Entitic mass] 30.0 pg Normal 25.9-34.0 [facility] Comment on above: Performed By: #### P OCGLUC #### [facility] [address] [address] [address] Rojelio Kingsley MCHC (RBC) [Mass/Vol] 32.9 g/dL Normal 29.9-35.2 [facility] Comment on above: Performed By: #### P OCGLUC #### [facility] [address] [address] [address] Rojelio Kingsley MCV (RBC) [Entitic vol] 91.4 fL Normal 80.0-94.0 [facility] Comment on above: Performed By: #### P OCGLUC #### [facility] [address] [address] [address] Rojelio Kingsley MONO # 0.7 103/ul Normal 0.3-0.8 [facility] Comment on above: Performed By: #### P OCGLUC #### [facility] [address] [address] [address] Rojelio Kingsley Monocytes/100 WBC (Bld) 8.4 % Normal 1.7-12.0 [facility] Comment on above: Performed By: #### P OCGLUC #### [facility] [address] [address] [address] Rojelio Kingsley NEUT # 5.5 103/ul Normal 1.4-6.5 [facility] Comment on above: Performed By: #### P OCGLUC #### [facility] [address] [address] [address] Rojelio Kingsley Neutrophils/100 WBC (Bld) 66.2 % Normal 43.0-75.0 [facility] Comment on above: Performed By: #### P OCGLUC #### [facility] [address] [address] [address] Rojelio Kingsley Platelet mean volume (Bld) [Entitic vol] 10.3 fL Normal 9.5-13.5 [facility] Comment on above: Performed By: #### P OCGLUC #### [facility] [address] [address] [address] Rojelio Kingsley PLT 202 103/ul Normal 150-450 [facility] Comment on above: Performed By: #### P OCGLUC #### [facility] [address] [address] [address] Rojelio Kingsley RBC 4.06 106/ul Critically low 4.70-6.10 [facility] Comment on above: Performed By: #### P OCGLUC #### [facility] [address] [address] [address] Rojelio Kingsley WBC 8.3 103/ul Normal 4.0-11.0 [facility] Comment on above: Performed By: #### P OCGLUC #### [facility] [address] [address] [address] Rojelio Kingsley GLYCOHEMOGLOBIN A1Con 2021 ADA RECOMMENDATION SEE BELOW Normal [facility] Comment on above: Result Comment: ADA RECOMMENDED LIMIT 4.0 - 6.0 ADA THERAPEUTIC TARGET < 7.0 ACTION SUGGESTED > 7.0 Performed By: #### A 1C #### [facility] [address] [place] [address] Dr. Rojelio Kingsley Glucose [Mass/Vol] 151 mg/dL Normal [facility] Comment on above: Performed By: #### A 1C #### [facility] [address] [place] [address] Dr. Rojelio Kingsley HbA1c (Bld) [Mass fraction] 6.9 % Critically high 4.5-6.2 [facility] Comment on above: Performed By: #### A 1C #### [facility] [address] [place] [address] Dr. Rojelio Kingsley Consultation Noteon 02-19-20 Consultation Note [id number]:[id number] Normal [facility] KNEE RIGHT 3 [facility] 1 KNEE RIGHT 3 [facility] Department of Radiology [address] [place] [id number] ======== Patient Name: LIZZY YEE : [...] noted. Electronically signed: Mitul Banks. Transcribed by: [email or web address], User Resident: Electronically Signed by: MITUL BANKS @ 01/09/2021 08:47 PM Normal [facility] POC GLUCOSE LABon 12-29-2020 Glucose [Mass/Vol] 194 mg/dL High 70-100 [facility] [place] Comment on above: Performed By: #### [id number] #### [facility] [address] [place] [address], [place] Glucose [Mass/Vol] 125 mg/dL High 70-100 [facility] Comment on above: Performed By: #### [id number] #### [facility] [address] [place] [address], [place] POC GLUCOSE LABon 12-28-2020 Glucose [Mass/Vol] 197 mg/dL High 70-100 [facility] Comment on above: Performed By: #### [id number] #### [facility] [address] [place] [address], [place] Glucose [Mass/Vol] 177 mg/dL High 70-100 The [facility] Comment on above: Performed By: #### [id number] #### [facility] [address] [place] [address], [place] Glucose [Mass/Vol] 215 mg/dL High 70-100 [facility] [place] Comment on above: Performed By: #### [id number] #### [facility] [address] [place] [address], [place] Glucose [Mass/Vol] 152 mg/dL High 70-100 [facility] [place] Comment on above: Performed By: #### [id number] #### [facility] [address] [place] [address], [place] BASIC METABOLIC PANELon 06- 0-2020 Calcium [Mass/Vol] 8.2 mg/dL Low 8.6-10.3 [facility] [place] Comment on above: Order Comment: No: D o not add to previous draw Performed By: #### [id number] #### [facility] [address] [place] [address], [place] Chloride [Moles/Vol] 102 mmol/L Normal 98-[address] [facility] Comment on above: Order Comment: No: D o not add to previous draw Performed By: #### [id number] #### [facility] [address] [place] [address], [place] CO2 [Moles/Vol] 23 mmol/L Normal 21-31 [facility] Comment on above: Order Comment: No: D o not add to previous draw Performed By: #### [id number] #### [facility] [address] [place] [address], [place] Creatinine [Mass/Vol] 0.97 mg/dL Normal 0.70-1.[address] [facility] Comment on above: Order Comment: No: D o not add to previous draw Performed By: #### [id number] #### [facility] [address] [place] [address], [place] GFR/1.73 sq M.predicted among blacks MDRD (S/P/Bld) [Vol rate/Area] mL/min/{1.73_m2} Normal >[address] [facility] Comment on above: Order Comment: No: D o not add to previous draw Result Comment: Calc ulation may not be valid for patients over 70 years Performed By: #### [id number] #### [facility] [address] [place] [address], [place] GFR/1.73 sq M.predicted among non-blacks MDRD (S/P/Bld) [Vol rate/Area] mL/min/{1.73_m2} Normal >[address] [facility] Comment on above: Order Comment: No: D o not add to previous draw Result Comment: Calc ulation may not be valid for patients over 70 years Performed By: #### 8 [id number] #### [facility] [address] [place] [address], [place] Glucose [Mass/Vol] 191 mg/dL High 70-100 The [facility] Comment on above: Order Comment: No: D o not add to previous draw Performed By: #### [id number] #### [facility] [address] [place] [address], [place] Potassium [Moles/Vol] 3.8 mmol/L Normal 3.5-5.[address] [facility] Comment on above: Order Comment: No: D o not add to previous draw Performed By: #### [id number] #### [facility] [address] [place] [address], [place] Sodium [Moles/Vol] 134 mmol/L Low 136-145 The [facility] Comment on above: Order Comment: No: D o not add to previous draw Performed By: #### [id number] #### [facility] [address] [place] [address], [place] Urea nitrogen [Mass/Vol] 23 mg/dL Normal 7-[address] [facility] Comment on above: Order Comment: No: D o not add to previous draw Performed By: #### [id number] #### [facility] [address] [place] [address], [facility] CBC COMPLETE BLOOD COUNTon 0 12-27-2020 Erythrocyte distribution width (RBC) [Ratio] 13.3 % Normal 11.5-15.[address] [facility] Comment on above: Order Comment: No: D o not add to previous draw Performed By: #### [id number] #### [facility] [address] [place] [address], [facility] Hematocrit (Bld) [Volume fraction] 35.4 % Low 39.0-50.[address] [facility] Comment on above: Order Comment: No: D o not add to previous draw Performed By: #### [id number] #### [facility] [address] [place] [address], [facility] Hemoglobin (Bld) [Mass/Vol] 11.7 g/dL Low 13.0-17.[address] [facility] Comment on above: Order Comment: No: D o not add to previous draw Performed By: #### [id number] #### [facility] [address] [place] [address], [facility] MCH (RBC) [Entitic mass] 31.2 pg Normal 27.0-33.[address] [facility] Comment on above: Order Comment: No: D o not add to previous draw Performed By: #### [id number] #### [facility] [address] [place] [address], [facility] MCHC (RBC) [Mass/Vol] 33.1 g/dL Normal 32.0-35.[address] [facility] Comment on above: Order Comment: No: D o not add to previous draw Performed By: #### [id number] #### [facility] [address] [place] [address], [facility] MCV (RBC) [Entitic vol] 94.4 fL Normal 82.0-98.[address] [facility] Comment on above: Order Comment: No: D o not add to previous draw Performed By: #### [id number] #### [facility] [address] [place] [address], [facility] Nucleated RBC/100 WBC (Bld) [Ratio] 0 % Normal 0-[address] [facility] Comment on above: Order Comment: No: D o not add to previous draw Performed By: #### 8 [id number] #### [facility] [address] [place] [address], [facility] PLAT CNT 177 10*3/uL Normal 150-400 The [facility] Comment on above: Order Comment: No: D o not add to previous draw Performed By: #### [id number] #### [facility] [address] [place] [address], [facility] RBC (Bld) [#/Vol] 3.75 10*6/uL Low 4.20-5.70 The [facility] Comment on above: Order Comment: No: D o not add to previous draw Performed By: #### [id number] #### [facility] [address] [place] [address], [facility] WBC (Bld) [#/Vol] 16.83 10*3/uL High 4.00-10.[address] [facility] Comment on above: Order Comment: No: D o not add to previous draw Performed By: #### [id number] #### [facility] [address] Operative Reporton Operative Report MR#: [id number] [facility] Pt. Name: Lizzy Yee Room #: [id number] Discharge Date: Birthdate: 1945 OPERATIVE REPORT DATE [...] surgery. 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 The patient signed the consent form. Site was marked. We proceed with IV antibiotics in the form of 2 g of Ancef within an hour of the incision. PROCEDURE IN DETAIL: After written consent obtained, site was marked. The patient was taken to the [facility] OR and was seen by anesthesia. [...] content not included)... Normal The [facility] POC GLUCOSE LABon 12-27-2020 Glucose [Mass/Vol] 200 mg/dL High 70-100 [facility] Comment on above: Performed By: #### [id number] #### [facility] [address] [place] [address], [place] Glucose [Mass/Vol] 186 mg/dL High 70-100 [facility] Comment on above: Performed By: #### [id number] #### [facility] [address] [place] [address], [place] Glucose [Mass/Vol] 250 mg/dL High 70-100 [facility] Comment on above: Performed By: #### 8 [id number] #### [facility] [address] [place] [address], [place] Glucose [Mass/Vol] 177 mg/dL High 70-100 [facility] Comment on above: Performed By: #### 8 [id number] #### [facility] [address] [place] [address], [place] POC GLUCOSE LABon 12-26-2020 Glucose [Mass/Vol] 230 mg/dL High 70-100 [facility] Comment on above: Performed By: #### 8 [id number] #### [facility] [address] [place] [address], [place] Glucose [Mass/Vol] 278 mg/dL High 70-100 [facility] Comment on above: Performed By: #### [id number] #### [facility] [address] [place] [address], [place] Glucose [Mass/Vol] 174 mg/dL High 70-100 [facility] Comment on above: Performed By: #### [id number] #### [facility] [address] [place] [address], [place] Glucose [Mass/Vol] 146 mg/dL High 70-100 [facility] Comment on above: Performed By: #### [id number] #### [facility] [address] [place] [address], [place] PORTABLE KNEE RIGHT 2 VWSon 12-26-2020 PORTABLE KNEE RIGHT [address] [facility] Department of Radiology [address] [place] [address] ======== Patient Name: LIZZY YEE : 1945 Sex: M Age: Race: White Pt. Location: [place] [address] Patient Status: I Ordered Date: 12/26/2020 7:05:00 [...] replacement. Electronically signed: José Thornton. Transcribed by: [email or web address], User Resident: JOSÉ THORNTON Electronically Signed by: JOSÉ THORNTON @ 12/26/2020 03:28 PM I personally read this/these film(s) with this resident Normal The [facility] Comment on above: Order Comment: Hardw are Evaluation, In PACU; HIP RIGHT 1 OR 2 VWS WITH PE LVISon 10-05-2020 HIP RIGHT 1 OR 2 VWS WITH PELVIS [facility] Department of Radiology [address] [place] [address] ======== Patient Name: LIZZY YEE [...] narrowing. Electronically signed: Mitul Banks. Transcribed by: [email or web address], User Resident: Electronically Signed by: MITUL BANKS @ 10/05/2020 01:08 PM Normal [facility] Comment on above: Order Comment: Views (X-RAY, HIP): AP Pelvis, X-Table Lateral Hip , Weight Bearing?: Y KNEE LEFT 4VWSon 08-20-2020 KNEE LEFT 4VWS [facility] Department of Radiology [address] [place] [id number] ======== Patient Name: LIZZY YEE : 1945 Sex: M Age: Race: White Pt. Location: Patient Status: O Ordered Date: 08/20/2020 8:10:00 AM Completed Date: 08/20/2020 08:14 AM Requesting Provider: CEDRICK WILD Attending Provider: CEDRICK WILD Report Copy To: Signs & Symptoms: M25.569 Pain in unspecified knee I10 History: [place] Comments: Views (X-RAY, KNEE): AP, Lateral, Tunnel, [place] , Weight Bearing?: Y Exam: KNEE LEFT 4VWS ======== KNEE LEFT 4VWS 08/20/2020 8:14 AM CLINICAL INDICATIONS: M25.569 Pain in unspecified knee I10 TECHNOLOGIST COMMENTS: Patient states having bilateral knee pain. QUESTION FOR THE RADIOLOGIST: Views (X-RAY, KNEE): AP, Lateral, Tunnel, [place] , Weight Bearing?: Y PROTOCOL: AP,Lateral,Tunnel and [...] reports Electronically signed: Ej Francisco. Transcribed by: [email or web address], User Resident: TAMERA MARIE Electronically Signed by: EJ FRANCISCO @ 08/20/2020 08:41 AM I personally read this/these film(s) with this resident Normal [facility] Comment on above: Order Comment: Views (X-RAY, KNEE): AP, Lateral, Tunnel, [place] , Weight Bearing?: Y KNEE RIGHT 4 Son KNEE RIGHT 4 [facility] Department of Radiology [address] [place] [id number] ======== Patient Name: LIZZY YEE : 1945 Sex: M Age: Race: White Pt. Location: Patient Status: O Ordered Date: 08/20/2020 8:10:00 AM Completed Date: 08/20/2020 08:14 AM Requesting Provider: CEDRICK WILD Attending Provider: CEDRICK WILD Report Copy To: Signs & Symptoms: M25.569 Pain in unspecified knee I10 History: [place] Comments: Views (X-RAY, KNEE): AP, Lateral, Tunnel, [place] , Weight Bearing?: Y Exam: KNEE RIGHT 4 S ======== KNEE RIGHT 4 VWS 08/20/2020 8:14 AM SIGNS AND SYMPTOMS: M25.569 Pain in unspecified knee I10 TECHNOLOGIST COMMENTS: Patient states having bilateral knee pain. QUESTION FOR THE RADIOLOGIST: Views (X-RAY, KNEE): AP, Lateral, Tunnel, [place] , Weight Bearing?: Y PROTOCOL: AP,Lateral,Tunnel and [...] knee. Electronically signed: Ej Francisco. Transcribed by: [email or web address], User Resident: Electronically Signed by: EJ FRANCISCO @ 08/20/2020 08:30 AM Normal [facility] Comment on above: Order Comment: Views (X-RAY, KNEE): AP, Lateral, Tunnel, [place] , Weight Bearing?: Y Vital Signs Date Time Vital Sign Value Performing Clinician Facility 04-21-2024 15:20-0400 Body mass index (BMI) [Ratio] 39.5 kg/m2 DO Juancarlos Ball Work Phone: [facility] 04-21-2024 13:34-0400 Body height 161.29 cm DO Juancarlos Ball Work Phone: [facility] 04-21-2024 13:34-0400 Body weight 101.6 kg DO Juancarlos Ball Work Phone: [facility] 04-20-2024 16:32-0400 Body height 165.1 cm DO Juancarlos Ball Work Phone: [facility] 04-20-2024 16:32-0400 Body mass index (BMI) [Ratio] 37.3 kg/m2 DO Juancarlos Ball Work Phone: [facility] 04-20-2024 16:32-0400 Body weight 101.66 kg DO Juancarlos Ball Work Phone: [facility] 03-09-2024 13:34-0400 Body height 161.29 cm DO Juancarlos Ball Work Phone: [facility] 03-09-2024 13:34-0400 Body mass index (BMI) [Ratio] 39.8 kg/m2 DO Juancarlos Ball Work Phone: [facility] 03-09-2024 13:34-0400 Body weight 103.58 kg DO Juancarlos Ball Work Phone: [facility] 03-09-2024 13:34-0400 Diastolic blood pressure 72 mm[Hg] DO Juancarlos Ball Work Phone: [facility] 03-09-2024 13:34-0400 Heart rate 56 /min DO Juancarlos Ball Work Phone: [facility] 03-09-2024 13:34-0400 Respiratory rate 12 /min DO Juancarlos Ball Work Phone: [facility] 03-09-2024 13:34-0400 Systolic blood pressure 126 mm[Hg] DO Juancarlos Ball Work Phone: [facility] 02-24-2024 13:14-0400 Body height 161.29 cm DO Juancarlos Ball Work Phone: [facility] 02-24-2024 13:14-0400 Body mass index (BMI) [Ratio] 39.4 kg/m2 DO Juancarlos Ball Work Phone: [facility] 02-24-2024 13:14-0400 Body weight 102.73 kg DO Juancarlos Ball Work Phone: [facility] 02-24-2024 13:14-0400 Diastolic blood pressure 58 mm[Hg] DO Juancarlos Ball Work Phone: [facility] 02-24-2024 13:14-0400 Heart rate 53 /min DO Juancarlos Ball Work Phone: [facility] 02-24-2024 13:14-0400 Respiratory rate 20 /min DO Juancarlos Ball Work Phone: [facility] 02-24-2024 13:14-0400 SaO2% (BldA) [Mass fraction] 95 % DO Juancarlos Ball Work Phone: [facility] 02-24-2024 13:14-0400 Systolic blood pressure 120 mm[Hg] DO Juancarlos Ball Work Phone: [facility] 02-08-2024 11:49-0400 Body mass index (BMI) [Ratio] 39.5 kg/m2 DO Juancarlos Ball Work Phone: [facility] 02-08-2024 10:04-0400 Body height 161.29 cm DO Juancarlos Ball Work Phone: [facility] 02-08-2024 10:04-0400 Body weight 101.15 kg DO Juancarlos Ball Work Phone: [facility] 12-08-2023 13:37-0400 Body height 161.29 cm [facility] 12-08-2023 13:37-0400 Body mass index (BMI) [Ratio] 39.4 kg/m2 [facility] 12-08-2023 13:37-0400 Body weight 102.68 kg [facility] 12-08-2023 13:37-0400 Diastolic blood pressure 67 mm[Hg] [facility] 12-08-2023 13:37-0400 Heart rate 61 /min [facility] 12-08-2023 13:37-0400 Respiratory rate 20 /min [facility] 12-08-2023 13:37-0400 Systolic blood pressure 126 mm[Hg] [facility] 11-17-2023 13:12-0400 Body weight 102.71 kg [facility] 11-04-2023 10:57-0400 Body height 161.29 cm [facility] 11-04-2023 10:57-0400 Body mass index (BMI) [Ratio] 39.5 kg/m2 [facility] 11-04-2023 10:57-0400 Body weight 102.96 kg [facility] 11-04-2023 10:57-0400 Diastolic blood pressure 70 mm[Hg] [facility] 11-04-2023 10:57-0400 Heart rate 57 /min [facility] 11-04-2023 10:57-0400 Respiratory rate 18 /min [facility] 11-04-2023 10:57-0400 SaO2% (BldA) [Mass fraction] 97 % [facility] 11-04-2023 10:57-0400 Systolic blood pressure 109 mm[Hg] [facility] 06-05-2023 10:00-0500 Body height 165.1 cm Juancarlos Ball Other [facility] [employer] Other 06-05-2023 10:00-0500 Body mass index (BMI) [Ratio] 39.87 kg/m2 Juancarlos Ball Other [facility] Other 06-05-2023 10:00-0500 Body weight 108.68 kg Juancarlos Ball Other [facility] Other 06-05-2023 10:00-0500 Diastolic blood pressure 71 mm[Hg] Juancarlos Ball Other [facility] Other 06-05-2023 10:00-0500 Respiratory rate 20 /min Juancarlos Ball Other [facility] Other 06-05-2023 10:00-0500 Systolic blood pressure 118 mm[Hg] Juancarlos Ball Other [facility] Other 05-06-2023 13:45-0400 Body height 165.1 cm Juancarlos Ball Other [facility] Other 05-06-2023 13:45-0400 Body mass index (BMI) [Ratio] 39.97 kg/m2 Juancarlos Ball Other [facility] Other 05-06-2023 13:45-0400 Body weight 108.95 kg Juancarlos Ball Other [facility] Other 05-06-2023 13:45-0400 Diastolic blood pressure 87 mm[Hg] Juancarlos Ball Other [facility] Other 05-06-2023 13:45-0400 Respiratory rate 16 /min Juancarlos Ball Other [facility] Other 05-06-2023 13:45-0400 Systolic blood pressure 158 mm[Hg] Juancarlos Ball Other [facility] Other 03-10-2023 11:00-0400 Body height 165.1 cm Juancarlos Ball Other [facility] Other 03-10-2023 11:00-0400 Body mass index (BMI) [Ratio] 39.3 kg/m2 Juancarlos Ball Other [facility] Other 03-10-2023 11:00-0400 Body weight 107.14 kg Juancarlos Ball Other [facility] Other 03-10-2023 11:00-0400 Diastolic blood pressure 67 mm[Hg] Juancarlos Ball Other [facility] Other 03-10-2023 11:00-0400 Respiratory rate 16 /min Juancarlos Ball Other [facility] Other 03-10-2023 11:00-0400 Systolic blood pressure 120 mm[Hg] Juancarlos Ball Other [facility] Other 10-16-2022 13:12-0400 Body temperature 97.11 [degF] Jay Gonzalez MD Work Phone: [facility] 10-16-2022 13:12-0400 Diastolic blood pressure 66 mm[Hg] Jay Gonzalez MD Work Phone: [facility] 10-16-2022 13:12-0400 Heart rate 51 /min Jay Gonzalez MD Work Phone: [facility] 10-16-2022 13:12-0400 SaO2% (BldA) [Mass fraction] 96 % Jay Gonzalez MD Work Phone: [facility] 10-16-2022 13:12-0400 Systolic blood pressure 143 mm[Hg] Jay Gonzalez MD Work Phone: [facility] 09-08-2022 13:30-0500 Body height 165.1 cm Juancarlos Ball Other [facility] Other 09-08-2022 13:30-0500 Body mass index (BMI) [Ratio] 39.33 kg/m2 Juancarlos Ball Other [facility] Other 09-08-2022 13:30-0500 Body weight 107.23 kg Juancarlos Ball Other [facility] Other 09-08-2022 13:30-0500 Diastolic blood pressure 70 mm[Hg] Juancarlos Ball Other [facility] Other 09-08-2022 13:30-0500 Respiratory rate 20 /min Juancarlos Ball Other [facility] Other 09-08-2022 13:30-0500 Systolic blood pressure 112 mm[Hg] Juancarlos Ball Other [facility] Other 01-27-2022 13:20-0400 Body height 165.1 cm Jus Medina MD Work Phone: [facility] 01-27-2022 13:20-0400 Body temperature 96.91 [degF] Jus Medina MD Work Phone: [facility] 01-27-2022 13:20-0400 Body weight 104.33 kg Jus Medina MD Work Phone: [facility] 01-27-2022 13:20-0400 Diastolic blood pressure 56 mm[Hg] Jus Medina MD Work Phone: [facility] 01-27-2022 13:20-0400 Heart rate 50 /min Jus Medina MD Work Phone: [facility] 01-27-2022 13:20-0400 SaO2% (BldA) [Mass fraction] 98 % Jus Medina MD Work Phone: [facility] 01-27-2022 13:20-0400 Systolic blood pressure 131 mm[Hg] Jus Medina MD Work Phone: [facility] 10-10-2021 10:46-0400 Body height 165.1 cm Jay Gonzalez MD Work Phone: [facility] 10-10-2021 10:46-0400 Body weight 102.51 kg Jay Gonzalez MD Work Phone: [facility] 10-10-2021 10:46-0400 Diastolic blood pressure 65 mm[Hg] Jay Gonzalez MD Work Phone: [facility] 10-10-2021 10:46-0400 Heart rate 76 /min Jay Gonzalez MD Work Phone: [facility] 10-10-2021 10:46-0400 Systolic blood pressure 137 mm[Hg] Jay Gonzalez MD Work Phone: [facility] 10-10-2021 10:44-0400 Body height 165.1 cm Jus Medina MD Work Phone: [facility] 10-10-2021 10:44-0400 Body weight 102.51 kg Jus Medina MD Work Phone: [facility] 10-10-2021 10:44-0400 Diastolic blood pressure 65 mm[Hg] Jus Medina MD Work Phone: [facility] 10-10-2021 10:44-0400 Heart rate 76 /min Jus Medina MD Work Phone: [facility] 10-10-2021 10:44-0400 SaO2% (BldA) [Mass fraction] 98 % Jus Medina MD Work Phone: [facility] 10-10-2021 10:44-0400 Systolic blood pressure 137 mm[Hg] Jus Medina MD Work Phone: [facility] Encounters Encounter Date Encounter Type Care Provider Facility Start: 05-04-2024 End: 05-04-2024 ambulatory EHAB [facility] Start: 04-21-2024 End: 04-21-2024 Patient encounter procedure DO Juancarlos Ball Work Phone: [facility] Physician [facility] Work Phone: Start: 04-21-2024 End: 04-21-2024 Patient encounter procedure DO Juancarlos Ball Work Phone: [facility] Physician [facility] Work Phone: Start: 04-21-2024 End: 04-21-2024 Patient encounter procedure DO Juancarlos Ball Work Phone: [facility] Start: 04-21-2024 End: 04-21-2024 ambulatory Ej Anthony II Facility:[facility] Start: 04-11-2024 End: 04-11-2024 ambulatory Hanh Wade MD Facility: [facility] Start: 03-24-2024 End: 03-24-2024 ambulatory ANGELA BINGHAM Not Available Start: 03-09-2024 End: 03-09-2024 Patient encounter procedure DO Juancarlos Ball Work Phone: [facility] Work Phone: Start: 02-24-2024 End: 02-24-2024 Patient encounter procedure DO Juancarlos Ball Work Phone: [facility] Work Phone: Start: 02-08-2024 End: 02-08-2024 Patient encounter procedure DO Juancarlos Bang Work Phone: [facility] Work Phone: Start: 12-15-2023 End: 12-15-2023 ambulatory JOANNA SHANNON Not Available Start: 12-10-2023 End: 12-10-2023 ambulatory ANGELA BINGHAM Not Available Start: 12-08-2023 End: 12-08-2023 Patient encounter procedure [facility] Work Phone: Start: 11-17-2023 End: 11-17-2023 Patient encounter procedure [facility] Work Phone: Start: 11-04-2023 End: 11-04-2023 Patient encounter procedure [facility] Work Phone: Start: 10-27-2023 Telephone encounter Jay patel MD Work Phone: General Surgery Start: 10-15-2023 End: 10-15-2023 ambulatory JAY GONZALEZ Facility:[facility] Start: 10-09-2023 Non-patient / Non-visit [facility] Work Phone: Start: 10-01-2023 End: 10-01-2023 ambulatory ANGELA BINGHAM Not Available Start: 08-10-2023 (RD) [facility] Start: 08-10-2023 End: 08-10-2023 ambulatory Juancarlos Cuenca [facility] Other Start: 08-03-2023 End: 08-03-2023 ambulatory Hanh Wade MD Facility: [facility] Start: 07-27-2023 End: 07-27-2023 ambulatory Hanh Wade MD Facility: [facility] Start: 06-17-2023 End: 06-17-2023 ambulatory Juancarlos Cuenca Other [facility] Other Start: 06-17-2023 Telephone encounter Juancarlos Ball [facility] Start: 06-16-2023 End: 06-16-2023 ambulatory Juancarlos Ball Other [facility] Other Start: 06-16-2023 Telephone encounter Juancarlos Ball [facility] Start: 06-09-2023 End: 06-09-2023 ambulatory Juancarlos Ball Other [facility] Other Start: 06-09-2023 Telephone encounter Juancarlos Ball [facility] Start: 06-08-2023 End: 06-08-2023 ambulatory Juancarlos Ball Other [facility] Other Start: 06-08-2023 Telephone encounter Juancarlos Ball [facility] Start: 06-07-2023 End: 06-07-2023 ambulatory Juancarlos Ball Other [facility] Other Start: 06-07-2023 Telephone encounter Juancarlos Ball [facility] Start: 06-05-2023 End: 06-05-2023 ambulatory Juancarlos Ball Other [facility] Other Start: 06-05-2023 Office outpatient vi sit 25 minutes Juancarlos Ball [facility] Start: 05-27-2023 End: 05-27-2023 ambulatory Juancarlos Ball Other [facility] Other Start: 05-27-2023 Telephone encounter Juancarlos Ball [facility] Start: 05-17-2023 End: 05-17-2023 ambulatory Juancarlos Ball Other [facility] Other Start: 05-17-2023 Telephone encounter Juancarlos Ball [facility] Start: 05-15-2023 End: 05-15-2023 ambulatory Juancarlos Ball Other [facility] Other Start: 05-15-2023 Telephone encounter Juancarlos Ball [facility] Start: 05-07-2023 End: 05-07-2023 ambulatory Juancarlos Cuenca Other [facility] Other Start: 05-07-2023 Telephone encounter Juancarlos Cuenca [facility] Start: 05-06-2023 End: 05-06-2023 ambulatory Juancarlos Ball Other [facility] Other Start: 05-06-2023 Office outpatient vi sit 25 minutes Juancarlos Ball [facility] Start: 05-06-2023 Telephone encounter Juancarlos Cuenca [facility] Start: 04-04-2023 End: 04-04-2023 ambulatory Juancarlos Cuenca Other [facility] Other Start: 04-04-2023 Telephone encounter Juancarlos Cuenca [facility] Start: 03-10-2023 End: 03-10-2023 ambulatory Juancarlos Cuenca Other [facility] Other Start: 03-10-2023 Office outpatient vi sit 25 minutes Juancarlos Ball [facility] Start: 12-24-2022 End: 12-24-2022 ambulatory Juancarlos Cuenca Other [facility] Other Start: 12-24-2022 Telephone encounter Juancarlos Cuenca [facility] Start: 12-17-2022 End: 12-18-[address] NYA BIRD . 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] Start: 10-06-2022 Telephone encounter Jay patel MD Work Phone: General Surgery Comment on above: Patient Question Start: 09-16-2022 Telephone encounter Juancarlos Cuenca [facility] Start: 09-16-2022 End: 09-17-2022 ambulatory Nya BIRD [facility] [employer] Other Start: 09-16-2022 End: 09-27-2022 Pre-admission assessment Nya BIRD [facility] Start: 09-12-2022 Telephone encounter Juancarlos Cuenca [facility] Start: 09-12-2022 End: 09-13-[address] JUANCARLOS CUENCA [facility] Other Start: 09-08-2022 End: 09-08-2022 ambulatory Juancarlos Cuenca Other [facility] Other Start: 09-08-2022 Patient encounter procedure Juancarlos BURKS [facility] Start: 07-31-2022 End: 08-01-[address] EVAN LAMAS . Facility:[facility] Start: 07-03-2022 Encounter for preprocedural laboratory examination DR EVAN LAMAS . [facility] Start: 07-01-2022 End: 07-01-[address] EVAN LAMAS . Facility:[facility] Start: 06-27-2022 End: 06-28-[address] EVAN LAMAS . Facility:[facility] Start: 06-27-2022 End: 06-28-2022 Encounter for preprocedural laboratory examination DR EVAN LAMAS . Facility:[facility] Start: 05-29-2022 End: 05-30-[address] EVAN LAMAS . Facility:[facility] Start: 05-13-2022 End: 05-13-[address] EVAN [...] Telephone encounter Shilpa Storm MD Work Phone: [facility] Research Comment on above: Research Start: 10-10-2021 End: 10-10-2021 Patient encounter procedure Jay Gonzalez MD Work Phone: General Surgery Comment on above: Ventral incisional h ernia (Primary Dx) Polyposis of colon ( Primary Dx) Start: 12-26-2020 End: 12-29-2020 ambulatory JUANCARLOS CUENCA Facility:[facility] Start: 10-19-2020 End: 10-20-2020 ambulatory JUANCARLOS CUENCA Facility:[facility] Procedures Date Procedure Procedure Detail Performing Clinician Start: 04-21-2024 Plain radiography of pelvis DO Juancarlos Cuenca Work Phone: Start: 04-21-2024 X-ray of left knee, four views DO Juancarlos Cuenca Work Phone: Start: 10-04-2021 Partial resection of colon Nya [...] Nya BIRD Comment on above: with stent 2005 Bilateral vasectomy Nya BIRD Decompression of med med nerve Nya BIRD Through knee amputation [place] ael NILL Plan of Treatment Date Care Activity Detail Author Start: 10-14-2024 BP Controlled (<130/80) BP Controlle d (<130/80) [facility] Start: 07-20-2023 Advance Directive Discussion Advance Directive Discussion [facility] Start: 07-20-2023 Behavioral Health Screening Behavioral Health Screening [facility] Start: 10-10-2022 End: 11-09-2022 Ct abdomen & pelvis w/o contrast material CT ABD/PEL WO IVCON Radiology Routine Ventral incisional hernia Expected: 10/10/2022, Expires: 11/09/2022 [facility] Work Phone: Comment on above: Expected: 10/10/2022 , Expires: 11/09/2022 Start: 07-20-2022 ADVANCE DIRECTIVE DISCUSSION ADVANCE DIRECTIVE DISCUSSION [facility] Start: 07-20-2022 DEPRESSION ASSESSMENT DEPRESSION ASS ESSMENT [facility] Start: 03-20-2022 Influenza vaccination INFLUENZA (#1) [facility] Start: 03-13-2022 Hemoglobin A1c measurement HbA1C [facility] Start: 03-13-2022 Hemoglobin A1c/Hemoglobin.total in Blood HBA1C [facility] Start: 01-04-2022 COVID-19 VACCINE (5 - Booster for Pfizer series) COVID-19 VACCINE (5 - Booster for Pfizer series) [facility] Start: 07-20-2021 ADVANCE DIRECTIVE DISCUSSION ADVANCE DIRECTIVE DISCUSSION [facility] Start: 04-19-2015 Pneumococcal Vaccine : 65+ (2 of 2 - PCV) Pneumococcal Vaccine: 65+ (2 of 2 - PCV) [facility] Start: 2009 PNEUMOVAX AGE 65 AND OVER WITH 5YR LOOKBACK (#1) PNEUMOVAX AGE 65 AND OVER WITH 5YR LOOKBACK (#1) [facility] Start: 1994 SHINGRIX VACCINE (1 of 2) SHINGRIX VACCINE (1 of 2) [facility] Start: 12-31-1963 Urine microalbumin profile [facility] Start: 1962 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 MACY DISEASE VISIT ANNUAL PCP TEAM CHRONIC DISEASE VISIT [facility] Start: 1962 BP CONTROLLED (<130/80) BP CONTROLLE D (<130/80) [facility] Start: 1962 Hepatitis B surface antibody level LDL CHOLESTEROL [facility] Start: 1962 HEPATITIS C SCREENING [facility]PATITIS [facility] Start: 1962 Hepatitis C screening Hepatitis C [facility] Start: 1956 Adult depression screening assessment DEPRESSION SCREENING [facility] Start: 1954 3 comp foot exam completed DIABETIC FOOT EXAM [facility] Start: 1954 Diabetic foot examination Diabetic Foot Exam [facility] Start: 1954 Glaucoma screening Dilated Retinal E xam [facility] Start: 1954 Hepatitis B screening URINE ALBUMIN:CREATININE RATIO [facility] Start: 1954 Hepatitis C antibody , confirmatory test DILATED RETINAL EXAM [facility] Start: 1950 PNEUMOCOCCAL: 65+ (1 - PCV) PNEUMOCOCCAL: 65+ (1 - PCV) [facility] End: 10-11-2022 Ct abdomen & pelvis w/o contrast material [facility] Work Phone: Comment on above: 1 Occurrences starti ng 10/11/2022 until 10/11/2022 End: 11-15-2023 Ct abdomen & pelvis w/o contrast material CT ABD/PEL WO IVCON Radiology Routine Ventral incisional hernia 1 Occurrences starting 10/16/2022 until 11/15/2023 [facility] Work Phone: Comment on above: 1 Occurrences starti ng 10/16/2022 until 11/15/2023 [facility] Immunizations Immunization Date Immunization Notes Care Provider Alexa dietz 05-20-2022 influenza virus vaccine, unspecified formulation Nya BIRD [facility] [place] 05-16-2022 influenza, high dose seasonal, preservative-free Juancarlos Cuenca Other [facility] Other 05-16-2022 influenza virus vaccine, split virus (incl. purified surface antigen) Juancarlos Cuenca Other [facility] Other 05-16-2022 influenza virus vaccine, unspecified formulation [facility] 04-15-2022 SARS-CoV-2 (COVID-19 ) [id number] Nya BIRD [facility] 11-09-2021 COVID-19 Vaccine Pfi zer - Documentation Purposes Only Juancarlos Cuenca Other [facility] 11-09-2021 SARS-CoV-2 mRNA (mhkazyduuhv-cekr-oondj se) vaccine Nya NILL [facility] 04-19-2021 SARS-CoV-2 (COVID-19 ) mRNA BNT-162b2 vax Nya NILL [facility] Comment on above: Result Comment: 2022: [id number] 09-05-2020 SARS-CoV-2 (COVID-19 ) mRNA BNT-162b2 vax Nya NILL [facility] Comment on above: Result Comment: 2022: [id number] 08-15-2020 COVID-19 Vaccine Moderna - Documentation Purposes Only Juancarlos Bang Other [facility] 08-15-2020 SARS-CoV-2 (COVID-19 ) mRNA BNT-162b2 vax Nya NILL [facility] Comment on above: Result Comment: 2022: [id number] 03-28-2020 influenza virus vaccine, split virus (incl. purified surface antigen) Juancarlos Cuneca Other [facility] Other 03-28-2020 influenza virus vaccine, unspecified formulation [facility] 05-17-2019 influenza virus vaccine, split virus (incl. purified surface antigen) Juancarlos Cuenca Other [facility] Other 05-17-2019 influenza virus vaccine, unspecified formulation [facility] 05-13-2018 influenza virus vaccine, split virus (incl. purified surface antigen) Juancarlos Cuenca Other [facility] Other 05-13-2018 influenza virus vaccine, unspecified formulation [facility] 04-25-2015 influenza virus vaccine, split virus (incl. purified surface antigen) Juancarlos Cuenca Other [employer] Other 04-25-2015 influenza virus vaccine, unspecified formulation [facility] 04-25-2015 pneumococcal conjuga te vaccine, 13 valent Juancarlos Cuenca Other [facility] 04-19-2014 pneumococcal polysaccharide vaccine, 23 valent Juancarlos Cuenca Other [facility] 04-20-2013 tetanus and diphther ia toxoids, adsorbed, preservative free, for adult use (5 Lf of tetanus toxoid and 2 Lf of diphtheria toxoid) Juancarlos Cuenca Other [facility] 04-21-2012 pneumococcal polysaccharide vaccine, 23 valent Juancarlos Cuenca Other [facility] Payers Date Payer Category Payer Self-pay [id number] 2023 Unknown [id number] 2020 Private Health Insurance [facility] AARP SUPPLEMENT [id number] 2020-Present [phone] [address] [place] [address] Indemnity [id number] 2020 Private Health Insurance [facility] AARP SUPPLEMENT [id number] 2020-Present [phone] [address] [place] [address] Indemnity [id number] 2009 Medicare MEDICARE MEDICAR E A AND B [id number] 2009-Present [phone] [place] [address] Medicare [id number] 2009 Medicare [id number] 1959 Medicare [id number] 1959 Unknown [id number] 1944 Unknown [id number] 2.16.840.1.705912.3.579.2 .647 1944 Unknown [id number] 2.16.840.1.499173.3.579.2 .647 1944 Unknown [id number] 2.16.840.1.548311.3.579.2 .593 1944 Unknown [id number] 2.16.840.1.021661.3.579.2 .593 1944 Unknown [id number] 2.16.840.1.203878.3.579.2 .593 1944 Unknown [id number] 2.16.840.1.295468.3.579.2 .593 1944 Unknown [id number] 2.16.840.1.776761.3.579.2 .593 1944 Unknown [id number] 2.16.840.1.773954.3.579.2 .593 1944 Unknown [id number] 2.16.840.1.322110.3.579.2 .593 1944 Unknown [id number] 2.16.840.1.717206.3.579.2 .593 1944 Unknown [id number] 2.16.840.1.673089.3.579.2 .593 1944 Unknown [id number] 2.16.840.1.789519.3.579.2 .593 1944 Unknown [id number] 2.16.840.1.372284.3.579.2 .593 1944 Unknown [id number] 2.16.840.1.146359.3.579.2 .593 1944 Unknown [id number] 2.16.840.1.936036.3.579.2 .593 1944 Unknown [id number] 2.16.840.1.219082.3.579.2 .593 1944 Unknown [id number] 2.16.840.1.354936.3.579.2 .593 1944 Unknown [id number] 2.16.840.1.356249.3.579.2 .593 1944 Unknown [id number] 2.16.840.1.319544.3.579.2 .593 1944 Unknown [id number] 2.16.840.1.231331.3.579.2 .593 1944 Unknown [id number] 2.16.840.1.706107.3.579.2 .593 1944 Unknown [id number] 2.16.840.1.919808.3.579.2 .727 1944 Unknown [id number] 2.16.840.1.119376.3.579.2 .727 1944 Unknown [id number] 2.16.840.1.036877.3.579.2 .727 1944 Unknown [id number] 2.16.840.1.226621.3.579.2 .1259 1944 Unknown [id number] 2.16.840.1.362129.3.579.2 .1259 1944 Unknown [id number] 2.16.840.1.599333.3.579.2 .1259 1944 Unknown [id number] 2.16.840.1.045450.3.579.2 .1259 1944 Unknown [id number] 2.16.840.1.646680.3.579.2 .196 1944 Unknown [id number] 2.16.840.1.192372.3.579.2 .196 1944 Unknown [id number] 2.16.840.1.658601.3.579.2 .196 Unknown [id number] Unknown [id number] 2.16840.1.531419.19 Unknown [id number] Conversion Insurance [id number] Unknown [id number] 2.16.840.1.471500.3.579.2 .531 Unknown [id number] 2..840.1.663834.3.579.2 .531 Social History Date Type Detail Facility Start: 05-21-2021 End: 09-16-2023 Tobacco smoking status NHIS Ex-smoker [facility] End: 07-20-1994 History of tobacco use Current smoker [facility] End: 07-20-1994 History of tobacco use Cigar Smoker [facility] Start: 05-21-2021 End: 10-16-2022 Tobacco use and exposure Smokeless tobacco non-user [facility] Start: 10-10-2021 End: 10-15-2023 Alcohol intake Ex-drinker (finding) [facility] Start: 05-21-2021 End: 10-16-2022 Tobacco Comment Quit 15+ years [facility] Start: 1945 Sex Assigned At Not on file [facility] Start: 08-25-2021 End: 09-24-2021 Exposure to SARS-CoV-2 (event) Not sure [facility] Start: 09-16-2022 Tobacco smoking status Never s moked tobacco (finding) [facility] Tobacco smoking status Former sm okeless tobacco user, quit more than 30 days ago [facility] Start: 10-15-2023 Sex Assigned At Male F [facility] Start: 10-15-2023 History of Social function [facility] Start: 1945 Sex Assigned At Male Yoshi [facility] Medical Equipment Procedure Code Equipment Code Equipment Origin al Text Equipment Identifier Dates Mesh Parietene Polypropylene Macroporous [id number] Surgical Monofilament - [id number] Start: 09-24-2021 Blood Sugar Diag nostic (Accu-Chek Guide Test Strips) strip Start: 09-14-2023 Blood Sugar Diag nostic (Accu-Chek Guide Test Strips) strip Start: 09-07-2023 End: 09-14-2023 Blood Sugar Diag nostic (Accu-Chek Guide Test Strips) strip Start: 09-14-2023 Blood Sugar Diag nostic (Accu-Chek Guide Test Strips) strip Start: 09-07-2023 End: 09-14-2023 Clinical Notes 12-29-2020 to 05-04-2024 Telephone Encounter - Efrain Zamarripa RN - 10/28/2023 8:29 AM EDTTelephone Encounter - Wendi De La Paz - 10/27/2023 9:52 AM EDT Note Date & Type Note Facility 05-04-2024 Note [facility] Cardiology Clinic Note Chief Complaint: Patient here for 1 year follow up CAD, PVD, and hypertension. Has lost 25# since last visit in Apr 2023. He denies chest pain and SOB. Says his BP at home this morning at the time his meds were taken was 119 systolic. HPI: Lizzy Yee is a 78 y.o. male with a history of coronary artery disease, prior bypass surgery, [...] his occluded popliteal artery with vascular surgery. Update 05/04/2024: Doing well. No chest pain. No shortness of breath. He has lost about 25 pounds since last year on a combination of dietary changes as well as Ozempic. His blood pressure has been lower than usual. Cardiology ROS: Review of Systems Constitutional: Positive for weight loss (25# since Apr 2023). HENT: Positive for hearing loss. Cardiovascular: Positive for leg swelling (LLE, intermittent). Musculoskeletal: Positive for arthritis, back pain, joint pain, muscle weakness and myalgias. Neurological: Positive for loss of balance. All other systems reviewed and are negative. Past Medical History He has a past medical history of Coronary artery disease, Diabetes mellitus (CMS/HCC), Hypertension, PVD (peripheral vascular disease) (CMS/HCC), and Sleep apnea. Surgical History He has a past surgical history that includes CTA Heart Coronary W IV Contrast (09/03/2016); Coronary artery bypass graft (08/01/2016); Hernia [...] and with evening meal., Disp: , Rfl: glipiZIDE (Glucotrol) 5 mg tablet, glipizide 5 mg tablet TAKE 1 TABLET BY MOUTH EVERY DAY 30 MINUTES PRIOR TO BREAKFAST, Disp: , Rfl: hydroCHLOROthiazide (HYDRODiuril) 25 mg tablet, Take 25 mg by mouth in the morning., Disp: , Rfl: lisinopril 5 mg tablet, Take 5 mg by mouth in the morning., Disp: , Rfl: metFORMIN (Glucophage) 1,000 mg tablet, metformin 1,000 mg tablet TAKE 1 TABLET BY MOUTH TWICE A DAY BEFORE BREAKFAST AND EVENING MEAL, Disp: , Rfl: pantoprazole (ProtoNix) 40 mg EC tablet, pantoprazole 40 mg tablet,delayed release TAKE 1 TABLET BY MOUTH DAILY ON EMPTY STOMACH FOLLOWED IN 30 MINUTES BY BREAKFAST, Disp: , Rfl: Last Recorded Vitals BP 93/63 (BP Location: Left arm, Patient Position: Sitting) Pulse 62 Ht 1.651 m (5' 5 ) Wt 96.6 kg (213 lb) SpO2 97% BMI 35.45 kg/m??? Physical Examination: GENERAL: alert and oriented [...] common femoral artery. Surgeon: Jyoti Mccurdy Primary Customer Field Representative: None. Anesthesia: Local with 1% lidocaine and sedation. EBL: 10 cc Complications: None. 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 Procedure: Patient was brought to the angiogram suite. He was placed on the table in supine position. Left groin area was prepped and draped in the usual sterile fashion. Patient was give (more content not included)... [facility] 10-28-2023 Miscellaneous Notes Returned call and spoke with patient. She [...] Patient and or can be reached at [phone]. Thank you. Wendi Traore documented in this encounter [facility] 10-15-2023 Note HNO ID: [id number] Author: JAY GONZALEZ MD Service: ? Author Type: Physician Type: Progress Notes Filed: 10/15/2023 13:41 Note Text: [facility] Abdominal Core Health - Follow Up [...] through this with valsalva and no pain. Jya Gonzalez MD 10/15/23, 1:38 PM General Surgery [facility] Medical Decision Making: Problems: Low: Stable chronic illness Risk: Low: Low risk from testing/treatment Medical Decision Making Level: 3 - Low [facility] 08-10-2023 Evaluation note Encounter Date Diagnosis Assessment Notes Jul, Other Summary of Visit: (A) Meal timing (B) DM2 nutrition education (C) Answered general, nutrition-rela maru questions [facility] Other 11-28-2023 Evaluation note* Encounter Date Diagnosis Assessment Notes Treatment Notes Treatment Clinical Notes May, Type 2 diabetes mellitus with hyperglycemia, without long-term current use of insulin (ICD-10 - E11.65) [facility] Other 11-28-2023 Evaluation note* Encounter Date Diagnosis Assessment Notes Treatment Notes Treatment Clinical Notes May, Primary hypertension (ICD-10 - I10) [facility] Other 11-21-2023 Evaluation note* Encounter Date Diagnosis Assessment Notes Treatment Notes Treatment Clinical Notes May, Type 2 diabetes mellitus with hyperglycemia, without long-term current use of insulin (ICD-10 - E11.65) [facility] Other 11-17-2023 Evaluation note* Encounter Date Diagnosis [...] use, the patient reduces the risk for [place], CVA, HTN, cardiac dysrhythmias and sudden cardiac [...] keep active No change in medical therapy 17 Nov, 2023 Familial polyposis (ICD-10 - D12.6) Surveillance scopes [...] index [BMI] 39.0-39.9, adult (ICD-10 - Z68.39) [facility] Other 11-08-2023 Evaluation note* Encounter Date Diagnosis Assessment Notes Treatment Notes Treatment Clinical Notes May, Primary hypertension (ICD-10 - I10) [facility] Other 10-29-2023 Evaluation note* Encounter Date Diagnosis Assessment Notes Treatment Notes Treatment Clinical Notes Apr, Type 2 diabetes mellitus with hyperglycemia, without long-term current use of insulin (ICD-10 - E11.65) Apr, Primary hypertension (ICD-10 - I10) [facility] Other 10-19-2023 Evaluation note* Encounter Date Diagnosis Assessment Notes Treatment Notes Treatment Clinical Notes Apr, Type 2 diabetes mellitus with hyperglycemia, without long-term current use of insulin (ICD-10 - E11.65) [facility] Other 10-18-2023 Evaluation note* Encounter Date Diagnosis Assessment Notes Treatment Notes Treatment Clinical Notes Apr, ASHD (arteriosclerotic heart disease) (ICD-10 - I25.10) This patient is stable without activity related CP, dyspnea or lightheadedness. They are instructed to continue exercise and AHA diet plan. Continue secondary prevention measures. Director Wholesale suggesting SGLT-2 for dual benefit w/ ASHD [...] contributed. Monitor for now Apr, Atherosclerosis of [place] artery of right lower extremity with rest pain (ICD-10 - I70.221) Walk daily until painful. Inspect feet daily for cuts. Continue secondary prevention measures. Scheduled post op JAMIR [facility] Other 10-18-2023 Evaluation note* Encounter Date Diagnosis Assessment Notes Treatment Notes Treatment Clinical Notes Apr, Type 2 diabetes mellitus with hyperglycemia, without long-term current use of insulin (ICD-10 - E11.65) [facility] Other 08-22-2023 Evaluation note* Encounter Date Diagnosis Assessment Notes [...] use, the patient reduces the risk for [place], CVA, HTN, cardiac dysrhythmias and sudden cardiac [...] [BMI ] 39.0-39.9, adult (ICD-10 - Z68.39) [facility] Other 05-31-2023 NoteOPERATIVE NOTE OPERATION DATE: 11/29/2022 [...] be in three years. CC: Juancarlos Cuenca D.O.[facility]05-12-2023 NotePROCEDURE: XR HIP LT 2 3V WO PELVIS HISTORY: Pain of left hip joint COMPARISON: None. FINDINGS: BONES:No fracture, acute abnormality, or significant arthropathy. SOFT TISSUES:No visible soft tissue swelling. EFFUSION:None visible. OTHER: Negative. IMPRESSION: 1. No acute bone abnormality. 2. Mild degenerative joint disease. Electronically authenticated by: GABY PADILLA Date: 2022-11-28 13:08[facility]04-11-2023 NoteCONSULTATION CONSULTATION DATE: 10/28/2022 TO: Juancarlos Cuenca [...] our patients to inform us about any lffw-jjg-ehxdxbv medications or herbal remedies/nutritional supplements/alternative remedies. 2. [...] treatment options with their primary care provider.[id number] History of Present illness Narrative* Jay Gonzalez MD - 10/16/2022 2:38 PM EDT [facility] Abdominal Core Health - Follow Up [...] Gonzalez MD 10/16/22, 2:45 PM General Surgery [facility] * Destiny Zapata MA - 10/16/2022 1:09 PM EDT What is the reason for your visit today? Follow up 1 year Who is your referring physician? Are you having poor oral intake? NO Have you had unintentional weight loss of 15 lbs/7 Kg in the last 3-6 months? NO Bowels: regular Wound: Temperature: No Drains: No [facility] Miscellaneous Notes* Allied Health - RT Marisa(R) [...] 11, 2022 10:29 AM documented in [facility] Miscellaneous Notes* Telephone Encounter - Efrain Zamarripa [...] or so at a non facility. PH: [phone] documented [facility] Evaluation note* Encounter Date Diagnosis Assessment Notes Treatment Notes Treatment Clinical Notes Aug, Left carotid artery stenosis (ICD-10 - I65.22) US: right <50%, left 50-69% - 10/2020 US: right <50%, left 80-90% - 08/2022 Interface21 Other 02-20-2023 Evaluation note* Encounter Date Diagnosis [...] use, the patient reduces the risk for [place], CVA, HTN, cardiac dysrhythmias and sudden cardiac [...] reviewed and amended by provider signed below. Interface21 Other 01-12-2023 NoteCONSULTATION PROCEDURE DATE: 09/18/2022 PREOPERATIVE [...] will be followed up in the office.[facility] [id number] NoteCONSULTATION CONSULTATION DATE: 07/31/2022 HISTORY OF PRESENT [...] and the patient agrees with this plan.[facility] 05-29-2022 NoteCONSULTATION CONSULTATION DATE: 05/29/2022 HISTORY [...] be followed up in the clinic thereafter.[facility] [id number] NoteCONSULTATION CONSULTATION DATE: 04/24/2022 This is a [...] approval to hold his Plavix from his red hat engineer. A refill for Baclofen 10 mg q.h.s. [...] knee osteoarthritis. The patient is in agreement.[facility] [id number] Note CONSULTATION CONSULTATION DATE: 03/25/2022 CHIEF COMPLAINT: 1. Low back pain. 2. Left knee pain. HISTORY OF PRESENT ILLNESS: This is a very pleasant, 76-year-old male, who is known to the pain practice remote. The patient had a right total knee replacement at [facility]. The patient is doing well with [...] patient understands and would like to proceed.[facility] 01-27-2022 Nurse Note* Sarah Osman MA [...] Temperature: No Drains: No documented [facility] encounter[facility] [place] History of Present illness Narrative* Jus Medina [...] needed. Jus Medina MD documented in this encounter[facility] [place]-25-2022 Miscellaneous Notes* Telephone Encounter - Shan Parham - 10/11/2021 3:09 PM EDTSummary: IRB#: [id number] Research Outreach IRB# [id number], Qualitative Interviews in Postoperative Gastrointestinal Dysfunction (POGD). PI: Shilpa Storm MD, SANJIV, FASA. Outcomes Research Department. Anesthesia [place]. This is a research study note. Patient [...] there for his review. Shan Parham Research Customer Field Representative Anesthesiology [place] Outcomes Research Department documented in this encounterSelect [facility] [place]-24-[facility] History of Present illness Narrative* Jay Gonzalez MD - 10/10/2021 1:37 PM EDT [facility] Abdominal Core Health - Follow Up [...] the care that he received while at [facility]. Objective: AAOx3, NAD Non-labored respirations on room [...] Gonzalez MD 10/10/21, 1:37 PM General Surgery [facility] documented in this encounterSelect [facility] [place]-24-2022 History of Present illness Narrative* Jus Medina MD - 10/10/2021 11:00 AM EDT HPI Lizzy Yee is a 75 year old male here today for postop Open subtotal colectomy with stapled celk-[id number] ileosigmoid anastomosis ventral herniorrhaphy with transversus abdominus [...] months Jus Medina MD documented in this encounterSelect [facility] [place]-24-2022 Nurse Note* Elena Ferrell MA - 10/10/2021 10:45 AM EDT What is the reason for your visit today? Follow up Who is your referring physician? Self Are you having poor oral intake? NO Have you had unintentional weight loss of 15 lbs/7 Kg in the last 3-6 months? NO Bowels: regular Wound: none Temperature: No Drains: No documented in this encounterSelect [facility] [place] History of Past illness Narrative* Problem Noted Date Resolved Date 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 documented as of this encounter (statuses as of 10/10/2021) [facility] [place]-08-[facility] History of Past illness Narrative* Problem Noted Date Resolved Date 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 documented as of this encounter (statuses as of 10/10/2021) [facility] [place]-08-[facility] History of Past illness Narrative* Problem Noted Date Resolved Date 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 documented as of this encounter (statuses as of 10/11/2021) [facility] [place]-08-[facility] History of Past illness Narrative* Problem Noted Date Resolved Date 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 documented as of this encounter (statuses as of 02/05/2022) [address]08-2022 History of Past illness Narrative* Problem Noted Date Resolved Date 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 documented as of this encounter (statuses as of 10/07/2022) [facility] [place] History of Past illness Narrative* Problem Noted Date Resolved Date 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 documented as of this encounter (statuses as of 10/12/2022) [facility] [place]-08-[facility] History of Past illness Narrative* Problem Noted Date Resolved Date 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 documented as of this encounter (statuses as of 10/12/2022) [address]08-2022 History of Past illness Narrative* Problem Noted Date Resolved Date 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 documented as of this encounter (statuses as of 10/16/2022) [address]08-2022 History of Past illness Narrative* Problem Noted Date Diagnosed Date Resolved Date 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 documented as of this encounter (statuses as of 10/28/2023) [facility] [place]06-12-2021 NoteMR#: [id number] [facility] Pt. Name: Lizzy Yee Admitted: 12/26/2020 Discharged: 12/29/2020 Date of : 1945 Physician: Ty Avalos M.D. DISCHARGE SUMMARY [facility] Pt. Name: Kurt Yee Admitted: 12/26/20 [...] CONDITION AT DISCHARGE: Stable DISPOSITION: Home with [facility] DISCHARGE INSTRUCTIONS: Take medications as prescribed, [...] Cano MD Date Trans: 12/29/2020 08:18 P/ DN_[id number] cc: Juancarlos Cuenca D.O. [address] [place] [id number] State Harding HospitalEvaluation + Plan note No data available for this section [facility]* Diagnosis Ventral incisional hernia- Primary documented in this encounter [facility]* Diagnosis Polyposis of colon- Primary Benign neoplasm of colon documented in this encounter [facility]* Diagnosis Polyposis of colon- Primary Benign neoplasm of colon Incisional hernia, without obstruction or gangrene Incisional hernia without mention of obstruction or gangrene documented in this encounter [facility] noteNo [facility] [employer] Other Evaluation note* Diagnosis Ventral incisional hernia documented in this encounter [facility] note* Diagnosis Ventral incisional hernia- Primary documented in this encounter [facility] note* Diagnosis Onset Date Resolution Status ASHD (arteriosclerotic heart disease) acute Elevated cholesterol acute NARINDER (generalized anxiety disorder) acute Obesity acute Obstructive sleep apnea acut e Primary hypertension acute [id number] acute [id number] acute ASHD (arteriosclerotic heart disease) acute Elevated cholesterol acute Obstructive sleep apnea acut e Primary hypertension acute Type 2 diabetes mellitus wit h diabetic peripheral angiopathy without gangrene acute 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 Type 2 diabetes mellitus with hyperglycemia acute [facility] Work Phone: Evaluation note* Diagnosis Onset Date Resolution Status ASHD (arteriosclerotic heart disease) acute Elevated cholesterol acute NARINDER (generalized anxiety disorder) acute Obesity acute Obstructive sleep apnea acut e Primary hypertension acute [id number] acute ASHD (arteriosclerotic heart disease) acute Elevated cholesterol acute Obstructive sleep apnea acut e Primary hypertension acute Type 2 diabetes mellitus wit h diabetic peripheral angiopathy without gangrene acute 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 Type 2 diabetes mellitus with hyperglycemia acute Primary osteoarthritis of left knee acute [facility] Work Phone: History general Narrative - Reported* [...] HEMICOLECTOMY 2003 Hospitalization History SEE SURGICAL HX Interface21 Other History general Narrative - Reported* Type [...] Colonoscopy 12/2022 Hospitalization History SEE SURGICAL HX Interface21 Other [employer] general Narrative - Reported* Type Description Date [...] anaya 03/2023 Hospitalization History SEE SURGICAL HX Interface21 Other Hospital Discharge instructions No data available for this section [facility] note No data available for this section [facility] CenterReason for referral (narrative)* Reason 10/09/22 Referral for carotid artery stenosis Diagnosis 1 Left carotid artery stenosis (I65.22) Referral Organization [facility] nemo Referring Provider First Name Juancarlos Referring Provider Last Name Bang Referring Provider Specialty Internal Me dicine Ref[facility] Referred Provider Jyoti Mccurdy Referred Address [address], [place],[address] Referred Provider Specialty Vascular Ruslan kajal Referral Priority Routine Referral Appointment Date 2022-10-09 General Notes Mr. Hooper is being r eferred for carotid artery stenosis. He recently completed carotid artery US at [facility], which revealed 87% left carotid bulb stenosis. The ICA velocities are not elevated, which was suggested to be due to hemodynamically significant stenosis in the left bulb. Seema Jaquez 09/23/2022 01:11:23 PM >received today, attachments made, referral faxed Janae Fulton 09/29/2022 02:11:56 PM > Patient is scheduled on 10/09 at 10 a.m. at [place] office Clinical Notes Mr. Hooper is being r eferred for further evaluation and treatment of left carotid artery stenosis. He has multiple risk factors, including HTN, HLD, DM and PAD. He has no history of TIA or CVA. He denies diplopia, loss of vision, dysarthria, facial droop or unilateral extremity weakness. F: [id number] Interface21 Other Summary Purpose Family History No Family History Records Found Relationship Condition Age at Onset Recorded Date/T devonte brother Malignant neoplasm Unknown Diabetes mellitus Unknown father Diabetes mellitus Unknown Not Specified Heart disease Unknown Hypertension Unknown Relationship Condition Age at Onset Recorded Date/T devonte brother Malignant neoplasm Unknown Diabetes mellitus Unknown father Diabetes mellitus Unknown mother Heart disease Unknown Hypertension Unknown Advance Directives No Advanced Directives Records FoundDocuments on File Type Date Recorded Patient Certified Peer Specialist Expl anation Advance Directive(s) 09/24/2021 8:40 AM Advance Directive(s) 06/07/2021 10:19 AM Advance Directive(s) 05/15/2021 3:36 PM M ain Documents on File Type Date Recorded Patient Certified Peer Specialist Expl anation Advance Directive(s) 09/24/2021 8:40 AM Advance Directive(s) 06/07/2021 10:19 AM Advance Directive(s) 05/15/2021 3:36 PM M ain Documents on File Type Date Recorded Patient Certified Peer Specialist Expl anation Advance Directive(s) 09/24/2021 8:40 AM Documents on File Type Date Recorded Patient Certified Peer Specialist Expl anation Advance Directive(s) 09/24/2021 8:40 AM Advance Directive Response Recorded Date/ Time Advance Directives No August 05, 2023 12:06pm Reason for Referral Specialty Diagnoses / Procedures Referred By Contac t Referred To Contact CT IMAGING Diagnoses Ventral incisional hernia Procedures CT ABD/PEL WO IVCON CT ABD & PELVIS W/O CONTRAST Jay Gonzalez MD [facility] [place] [address] Ct Imaging Referral ID Status Reason Start Date Expiration Date Visits Requested Visits Authorized [id number] Pending Review Auto-Generat ed Referral 10/10/2022 11/09/2022 1 1 Referral ID Status Reason Start Date Expiration Date V isits Requested Visits Authorized [id number] Closed Auto-Generate d Referral 10/10/2022 11/09/2022 1 1 Specialty Diagnoses / Procedures Referred By Contac t Referred To Contact CT IMAGING Diagnoses Ventral incisional hernia Procedures CT ABD/PEL WO IVCON CT ABD & [place] [address] [place] [address] Ct Imaging Referral ID Status Reason Start Date Expiration Date Visits Requested Visits Authorized [id number] Pending Review Auto-Generat ed Referral 10/16/2022 11/15/2023 1 1 Chief Complaint and Reason for Visit Chief Complaint WMN f/u DL 10-14 day DS 3 month follow up Reason for Visit ASHD (arteriosclerot ic heart disease) Elevated cholesterol NARINDER (generalized anxiety disorder) Obesity Obstructive sleep apnea Primary hypertension [id number] ASHD (arteriosclerotic heart disease) Elevated cholesterol Obstructive sleep apnea Primary hypertension Type 2 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 Type 2 diabetes mellitus with hyperglycemia Chief Complaint WMN RD f/u 8 week f/u WMN only per DS 3 month follow up M25.562 - Pain in left knee NEW LT KNEE PAIN WX TBH RD WM f/u Reason for Visit ASHD (arteriosclerot ic heart disease) Elevated cholesterol NARINDER (generalized anxiety disorder) Obesity Obstructive sleep apnea Primary hypertension [id number] ASHD (arteriosclerotic heart disease) Elevated cholesterol Obstructive sleep apnea Primary hypertension Type 2 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 Type 2 diabetes mellitus with hyperglycemia Primary osteoarthritis of left knee Additional Source Comments (unrecognized sect ion and content) No Status Records FoundNo Status Records FoundNo Status Records FoundNo Status Records FoundNo Status Records FoundNo Status Records FoundNo Status Records FoundNo Status Records FoundNo Status Records Found INFORMATION SOURCE (unrecogn ized section and content) DATE CREATED AUTHOR 03/11/2021 [facility] DATE CREATED AUTHOR AUTHOR'S ORGANIZ ATION 10/13/2022 [facility] DATE CREATED AUTHOR AUTHOR'S ORGANIZ ATION 12/29/[address] [facility] DATE CREATED AUTHOR AUTHOR'S ORGANIZ ATION 12/29/2022 [facility] DATE CREATED AUTHOR AUTHOR'S ORGANIZ ATION 10/29/2023 [facility] DATE CREATED AUTHOR AUTHOR'S ORGANIZ ATION 03/26/2024 [facility] DATE CREATED AUTHOR AUTHOR'S ORGANIZ ATION 04/18/2024 [facility] DATE CREATED AUTHOR AUTHOR'S ORGANIZ ATION 04/23/2024 [facility] DATE CREATED AUTHOR AUTHOR'S EMANUEL GALINDO 05/06/[address]24 [facility] Source Comments (unrecognize d section and content) In the event this informatio n is protected by the Federal Confidentiality of Alcohol and Drug Abuse Patient Records regulations: The Federal rules restrict any use of the information to criminally investigate or prosecute any alcohol or drug abuse patient.[facility]onIn the event this information is protected by the Federal Confidentiality of Alcohol and Drug Abuse Patient Records regulations: The Federal rules restrict any use of the information to criminally investigate or prosecute any alcohol or drug abuse patient.[facility]onIn the event this information is protected by the Federal Confidentiality of Alcohol and Drug Abuse Patient Records regulations: The Federal rules restrict any use of the information to criminally investigate or prosecute any alcohol or drug abuse patient.[facility]onIn the event this information is protected by the Federal Confidentiality of Alcohol and Drug Abuse Patient Records regulations: The Federal rules restrict any use of the information to criminally investigate or prosecute any alcohol or drug abuse patient.[facility]onIn the event this information is protected by the Federal Confidentiality of Alcohol and Drug Abuse Patient Records regulations: The Federal rules restrict any use of the information to criminally investigate or prosecute any alcohol or drug abuse patient.[facility]onIn the event this information is protected by the Federal Confidentiality of Alcohol and Drug Abuse Patient Records regulations: The Federal rules restrict any use of the information to criminally investigate or prosecute any alcohol or drug abuse patient.[facility]onIn the event this information is protected by the Federal Confidentiality of Alcohol and Drug Abuse Patient Records regulations: The Federal rules restrict any use of the information to criminally investigate or prosecute any alcohol or drug abuse patient.[facility]onIn the event this information is protected by the Federal Confidentiality of Alcohol and Drug Abuse Patient Records regulations: The Federal rules restrict any use of the information to criminally investigate or prosecute any alcohol or drug abuse patient.[facility]onIn the event this information is protected by the Federal Confidentiality of Alcohol and Drug Abuse Patient Records regulations: The Federal rules restrict any use of the information to criminally investigate or prosecute any alcohol or drug abuse patient.[facility] Reason for Visit (unrecogniz ed section and content) Reason Comments Follow Up Reason Comments Follow Up Reason Onset Date Comments Research 10/11/2021 Reason Comments Established Patient Follow-Up Reason Comments Patient Question Specialty Diagnoses / Procedures Referred By Contac t Referred To Contact CT IMAGING Diagnoses Ventral incisional hernia Procedures CT ABD/PEL WO IVCON CT ABD & PELVIS W/O CONTRAST Jay Gonzalez MD [address] [place] [address] Ct Imaging Referral ID Status Reason Start Date Expiration Date V isits Requested Visits Authorized [id number] Closed Auto-Generate d Referral 10/10/2022 11/09/2022 1 1 Reason Comments Follow Up 1 year, ventral inci sional hernia Care Teams (unrecognized sec tion and content) Team Status: Active Member Role Status Dates Juancarlos Cuenca DO Primary Care Provider Active Team Status: Inactive Member Role Status Dates Juancarlos Cuenca DO Primary Care Provider Active Start: February 08, 2024 End: February 08, 2024 GRACIE Calhoun Attending Provider Active S tart: February 08, 2024 End: February 08, 2024 Team Status: Inactive Member Role Status Dates Juancarlos Cuenca DO Primary Care Provider Active Start: February 24, 2024 End: February 24, 2024 Jory C Scally , [employer] Attending Provider Active Start: February 24, 2024 End: February 24, 2024 Team Status: Inactive Member Role Status Dates Juancarlos Cuenca DO Primary Care Provide r, Attending Provider Active Start: March 09, 2024 End: March 09, 2024 Team Status: Inactive Member Role Status Dates Juancarlos Cuenca DO Primary Care Provider Active Start: April 21, 2024 End: April 21, 2024 Ej Anthony II, MD Attending Provider Active Start: April 21, 2024 End: April 21, 2024 Team Status: Inactive Member Role Status Dates Juancarlos Cuenca DO Primary Care Provider Active Start: April 21, 2024 End: April 21, 2024 GRACIE Calhoun Attending Provider Active S tart: April 21, 2024 End: April 21, 2024 Thermal Spray Operator Relationship Specialty Start Date End Date Juancarlos Cuenca DO PCP - General Internal Medicine 10/23/14 [facility] [address] [place] [phone] Cardiology 09/13/21 Thermal Spray Operator Relationship Specialty Start Date End Date Juancarlos Cuenca DO PCP - General Internal Medicine 10/23/14 Pedro Richardson [address] [place] [phone] Cardiology 09/13/21 Thermal Spray Operator Relationship Specialty Start Date End Date Juancarlos Cuenca DO PCP - General Internal Medicine 10/23/14 [facility] [address] [facility] [facility] [place] [phone] Cardiology 09/13/21 Thermal Spray Operator Relationship Specialty Start Date End Date Juancarlos Cuenca DO PCP - General Internal Medicine 10/23/14 Pedro Richardson MD Cardiology 09/13/21 Thermal Spray Operator Relationship Specialty Start Date End Date Juancarlos Cuenca DO PCP - General Internal Medicine 10/23/14 Pedro Richardson MD Cardiology 09/13/21 Thermal Spray Operator Relationship Specialty Start Date End Date Juancarlos Cuenca DO PCP - General Internal Medicine 10/23/14 Pedro Richardson MD Cardiology 09/13/21 Thermal Spray Operator Relationship Specialty Start Date End Date Juancarlos Cuenca DO PCP - General Internal Medicine 10/23/14 Pedro Richardson MD Cardiology 09/13/21 Thermal Spray Operator Relationship Specialty Start Date End Date Juancarlos Cuenca DO PCP - General Internal Medicine 10/23/14 Pedro Richardson MD Cardiology 09/13/21 Thermal Spray Operator Relationship Specialty Start Date End Date [...] BE BASED ON THE PRIMARY CLINICAL RECORDS. [employer] [facility]. provides no warranty or guarantee of the accuracy or completeness of information in this document.
--- NOTE | 2024-05-09 08:30 | CA_ITS ---
Patient Name: LIZZY BURK MR#: [id number] : 1945 Exam Date: 05/09/2024 Ordering Doctor: DR KWAME BENAVIDES M.D. ECHOCARDIOGRAM REPORT PROCEDURE: CA ECHO DOPPLER COMPLETE INDICATIONS: Dyspnea on exertion COMPARISON: None. DESCRIPTION: COMPLETE ECHOCARDIOGRAM Real-time transthoracic echocardiography with 2D, M-mode, spectral and color flow Doppler performed. QUALITY: Technical quality was good. LEFT VENTRICLE: Normal chamber size. Mild concentric left ventricular hypertrophy. Global left ventricular systolic function is hyperdynamic. No wall motion abnormalities. Left ventricular ejection fraction is 70 %. LV EF: DIASTOLIC: Grade I diastolic dysfunction. ATRIAL SEPTUM: LEFT ATRIUM: Moderate dilatation. RIGHT ATRIUM: Moderate dilatation. RIGHT VENTRICLE: Normal right ventricular size. Normal right ventricular systolic function. TRICUSPID VALVE: Normal mobility and thickness. No stenosis with trivial regurgitation. No evidence of pulmonary hypertension.RVSP 22mmHg MITRAL VALVE: Mildly thickened with normal mobility. No evidence of mitral valve stenosis. Mild mitral annular calcification. Trivial mitral regurgitation. AORTIC VALVE: Normal trileaflet appearance. Thickened aortic valve. Normal leaflet mobility. No evidence of aortic valve stenosis. No aortic regurgitation. AORTIC ROOT: Normal diameter and appearance. PULMONIC VALVE: Normal thickness and mobility. No stenosis. No regurgitation. PERICARDIUM: No evidence of pericardial effusion. IVC: Collapes with inspirations. Normal size. PLEURA: CONCLUSION: Hyperdynamic left ventricle without to motion abnormalities, ejection fraction 70% Mild concentric left ventricle hypertrophy Grade 1 diastolic dysfunction Mild mitral and calcification Normal right ventricle size and systolic function No significant valvular abnormalities No evidence of pulmonary hypertension Adult Echocardiography Procedure Report Left Ventricle LVEDD (3.7 - 5.6 cm): 4.25 cm LVESD (2.2 - 4.0 cm): 2.66 cm LVIVS thickness (0.6 - 1.2 cm): 1.13 cm LVPW thickness (0.5 - 1.0 cm): 1.08 cm e': 0.10 m/s E - e': 6.51 LVOT Max Gradient: 4.50 mm[Hg] LVOT Area (cm2): 1.06 m/s Peak Velocity (LVOT): 1.06 m/s Mean Velocity (LVOT): 0.71 m/s LVOT Diameter 2.00 cm Left Ventricular Ejection Fraction: 64.39 % Left Atrium LA Volume Index (2D A2C): 45.61 ml/m2 Left Atrium Systolic Dimension: 3.58 cm Mitral Valve MV E to A Ratio: 0.72 MV Max Gradient: MV Mean Gradient: Mitral Valve A-Wave Peak Velocity: 0.90 m/s Mitral Valve E-Wave Peak Velocity: 0.64 m/s Cardiovascular Orifice Area: Right Ventricle RV Internal Diastolic Dimension: 3.97 cm Aorta AO Root Diam: 3.25 cm Ascending Ao Diam: 2.92 cm Aortic Valve AoV Area (Peak Doug): 2.43 cm2, 2.43 cm2 AoV Area (VTI): 2.64 cm2, 2.64 cm2 Deceleration Cache: Pressure Half-Time: Peak Velocity(Antegrade Flow): 1.37 m/s Peak Gradient(Antegrade Flow): 7.56 mm[Hg] Mean Velocity(Antegrade Flow): 0.92 m/s Mean Gradient(Antegrade Flow): 3.92 mm[Hg] Velocity Time Integral: 28.86 cm Tricuspid Valve Peak Velocity (Regurgitant Flow): 1.94 m/s, 2.20 m/s Peak Velocity: Pulmonic Valve Mean Gradient: 1.98 mm[Hg] Mean Velocity: 0.65 m/s Peak Velocity: 1.00 m/s, 0.96 m/s Peak Gradient: 3.97 mm[Hg], 3.69 mm[Hg] Right Atrium Right Atrium Systolic Pressure: 84.88 ml, 84.88 ml Dictated by: Medina Monsalve MD on 05/09/2024 at 15:56 Approved by: Medina Monsalve MD on 05/09/2024 at 16:03
[2024-05-09 08:59] LABS: Alanine Aminotransferase 29 U/L (16-63); Albumin Globulin Ratio 0.6; Albumin Level 2.6 g/dL (3.4-5.0); Alkaline Phosphatase 110 U/L (46-116); Aspartate Amino Transferase 16 U/L (15-37); Bilirubin Direct 0.1 mg/dL (0.0-0.2); Bilirubin Total 0.5 mg/dL (0.2-1.0); Chol HDL Ratio 4.8; Cholesterol 209 mg/dL (<=200); Globulin 4.2 g/dL; HDL Cholesterol 44 mg/dL (40-60); Total Protein 6.8 g/dL (6.4-8.2); Triglycerides 98 mg/dL (<=150); VLDL CHOLESTEROL 19.6 mg/dL
== END 2024-05-09 07:47 | disposition home or self-care (01) ==
PROVIDERS: PCP Internal Medicine; Visit Provider Internal Medicine Interventional Cardiology
DX: R06.02 Shortness of breath (principal); E78.5 Hyperlipidemia, unspecified
CPT/HCPCS: 36415; 80061; 80076; 93306

== ENCOUNTER 2024-05-12 10:44 | Outpatient (OUT) | payer MEDICARE, SELFPAY ==
--- OUTSIDE RECORDS SUMMARY | 2024-05-12 10:56 | XMS_ITS | CCD ---
Author Organization [facility] Care Team Providers Care Physician Chief Of Pathology Name Role Phone JUANCARLOS CUENCA Referring Unavailable JUANCARLOS CUENCA Primary Care Unavailable Delonte Webb Admitting Unavailable Delonte Webb Attending Unavailable JUANCARLOS CUENCA Referring Unavailable TY AVALOS Surgeon Unavailable TY AVALOS Admitting Unavailable JUANCARLOS CUENCA Primary Care Unavailable TY AVALOS Attending Unavailable [place] Procedure Practitioner Unavailab Juancarlos Delatorre DO Primary Care Provider Pedro Richardsonmed Unavailable Dylan VANESSA, ab Ahmed Unavailable [phone] JUANCARLOS CUENCA Primary Care Physician [phone] Juancarlos Cuenca Unavailable Juancarlos Cuenca DO Primary [...] Unavailable DO Juancarlos Cuenca Primary Care Provider [phone] MD Ej Anthony II Attending Provider [phone] PEDRO RICHARDSON Attending Unavailable Allergies Allergy Classification Reported Allergen(s) Allergy Type Date of Onset Reaction(s) Facility (20 sources) Morphine; Translations: [morphine] Drug Allergy Unknown [facility] Repository (1 source) Morphine Drug Allergy 12-08-2023 [facility] Repository Medications Current Medications Medication Drug [...] CPAP (9 sources) CPAP daily at be dtide. 0 Active Comment on above: daily at [...] 2023 10:53am take 1 capsule by mo [facility] every twenty-four hours Gabapentin 100 MG [...] 04, 2023 10:54am [facility] hours Meclizine HCl 25 MG [...] 04, 2023 10:55am take 1 tablet by [facility] every twenty-four hours Ondansetron 4 MG 1 [...] Comment on above: TAKE 1 TABLET BY [facility] EVERYDAY AT BEDTIME tamsulosin hydrochloride 0.4 mg oral capsule (6 sources) alpha-Adrenergic Ciera Start: 2 End: 2 take 1 capsule by mouth once daily tamsulosin (FLOMAX) 0.4 mg Take 1 capsule by mouth once daily. 30 capsule 0 10/01/2021 Active Comment on above: Take 1 capsule by mo [facility] once daily. 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] 09-13-2021 Episodic [...] and visceral atherosclerosis (17 sources) Atherosclerosis of [place] arteries of extremities with rest pain, right leg; Translations: [Atherosclerosis of [place] artery of right lower extremity with rest [...] without hemorrhage] Other aftercare (3 sources) 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; Translations: [OTH DEPUTY REGISTER OF DEEDS CURRENT DRUG THERAPY] Onset: 09-17-2022 Episodic Other and unspecified benign neoplasm (12 sources) Polyp of colon; Translations: [Polyp of colon] Onset: 06-07-2021 06-07-2021 Episodic Unclassified (1 source) LOW BACK PAIN, UNSPECIFIED; Translations: [LOW BACK PAIN, UNSPECIFIED] Onset: 04-24-2022 Results Test Name Value Interpretation Reference Range Facility Office Visiton 05-04-2024 Follow-up visit [id number] Vu Yee 1945 M Date Provider Department Center 05/04/2024 [facility]KRYSTLE[facility], AB CARD [facility] Family History Problem Relation Age of Onset Coronary artery disease Mother Coronary artery disease Brother Family Status - Relation Status Age at Mother Brother Level of Service:69431 [place] OFFICE/OUTPATIENT ESTABLISHED MOD MDM 30 MIN Normal [facility] XR knee LT 4V*on 04-21-2024 XR knee LT 4V* [facility] [address] [place] [address] XRay Report Signed Patient: Lizzy Yee MR#: [id number] : 1945 Acct:[id number] Age/Sex: 78 / M ADM Date: 04/21/24 [facility]: [facility] Room: Type: [facility] CLI Attending Dr: Ej Anthony II, MD Copies to: Ej Anthony MD Ordering Provider: Ej Anthony MD Date of Service: 04/21/24 XR/XR pelvis 1-2V: M25.562 - Pain in left knee ([id number]) XR/XR knee LT 4V*: M25.562 - Pain [...] Jimenez Jr., D.OHerve04/21/2024 2:51 PM Dictation Location: [facility]-14 Transcribed By: [facility] 04/21/24 1451 Dictated By: Jus Jimenez Jr, DO 04/21/24 1449 Signed By: 04/21/24 1451 Normal [facility] Keyshawn 10-27-2023 [facility] Telephone ([facility]) LIZZY YEE ([id number]) 1945 M Date Time Provider Department 10/27/[address] [facility] During your visit today, we [...] Patient and or can be reached at [phone]. Thank you. Efrain Loza RN 10/28/2023 8:30 [...] Encounter Status:Closed by EFRAIN ZAMARRIPA on 10/28/23 [facility] CNOVon 10-15-2023 CNOV Office Visit ([facility] ) LIZZY YEE ([id number]) 1945 M Date Time Provider Department 10/15/23 1:[address] [facility] During your visit today, we recorded the following information about you: Temperature Pulse Blood pressure 97.3 degrees 53/minute 127/65 Jay Gonzalez MD 10/15/2023 1:41 PM Signed [facility] - Follow [...] Gonzalez MD 10/15/23, 1:38 PM General Surgery [facility] Medical Decision Making: Problems: Low: Stable [...] HLD (hyperlipidemi (more content not included)... Normal [facility] Cholesterol in LDL Calc [Mas s/Vol]on 10-09-2023 Cholesterol in LDL [Mass/Vol] 46.6 mg/dL [facility] Comment on above: <100 mg/dl [id number] 0-129 mg/dl NEAR OR ABOVE [id number] mg/dl BORDERLINE [id number] mg/dl HIGH>190 mg/dl VERY HIGH Cholesterol in VLDL Calc [Ma ss/Vol]on 10-09-2023 Cholesterol in VLDL [Mass/Vol] 14.4 mg/dL [facility] Estimated glomerular filtrat ion rate (GFR) non- Americanon 10-09-2023 GFR/1.73 sq M.predicted among non-blacks MDRD (S/P/Bld) [Vol rate/Area] 54 mL/min/{1.73_m2} >=60 [facility] Globulin Calc (S) [Mass/Vol] on 10-09-2023 Globulin (S) [Mass/Vol] 3.9 g/dL [facility] Glucose mean value [Mass/vol ume] in Blood Estimated from glycated hemoglobinon 10-09-2023 Average glucose Estimated from glycated hemoglobin (Bld) [Mass/Vol] 186 mg/dL [facility] Laboratory - Chemistry and C hemistry - challengeon 10-09-2023 Albumin [Mass/Vol] 3.4 g/dL 3.4-5.0 [facility] ALP [Catalytic activity/Vol] 210 U/L 46-116 [facility] ALT [Catalytic activity/Vol] 236 U/L 16-63 [facility] AST [Catalytic activity/Vol] 169 U/L 15-37 [facility] Bilirubin [Mass/Vol] 0.8 mg/dL 0.2-1.0 [facility] Calcium [Mass/Vol] 9.1 mg/dL 8.5-10.1 [facility] Chloride [Moles/Vol] 101 mmol/L 98-107 [facility] Cholesterol [Mass/Vol] 107 mg/dL <=200 [facility] Cholesterol in HDL [Mass/Vol] 46 mg/dL 40-60 [facility] Comment on above: > or =60 mg/dl - LOW CARDIOVASCULAR RISK<40 mg/dl - HIGH CARDIOVASCULAR RISK CO2 [Moles/Vol] 28.4 mmol/L 21.0-32.0 [facility] Creatinine [Mass/Vol] 1.29 mg/dL 0.70-1.30 [facility] GFR/1.73 sq M.predicted MDRD (S/P/Bld) [Vol rate/Area] mL/min/{1.73_m2} >=60 [facility] Glucose [Mass/Vol] 100 mg/dL 74-106 [facility] Potassium [Moles/Vol] 4.1 mmol/L 3.5-5.1 [facility] Protein [Mass/Vol] 7.3 g/dL 6.4-8.2 [facility] Sodium [Moles/Vol] 140 mmol/L 136-145 [facility] Triglyceride [Mass/Vol] 72 mg/dL <=150 [facility] Urea nitrogen [Mass/Vol] 23.0 mg/dL 7.0-18.0 [facility] Urea nitrogen/Creatinine [Mass ratio] 17.8 mg/mg [facility] Laboratory - Hematology and Cell countson 10-09-2023 HbA1c (Bld) [Mass fraction] 8.1 % 4.5-6.2 [facility] Comment on above: ADA RECOMMENDED LIMI T 4.0 - 6.0ADA THERAPEUTIC TARGET < 7.0ACTION SUGGESTED> 7.0 Microalbumin [Mass/volume] i n Urineon 10-09-2023 Albumin DL <= 20 mg/L (U) [Mass/Vol] mg/dL <=30.0 [facility] No Panel Informationon 10-08 Prostate Specific Antigen Screen 0.27 ng/mL <=4.00 [facility] Serum or plasma albumin/glob ulin mass ratioon 10-09-2023 Albumin/Globulin [Mass ratio] 0.9 {ratio} [facility] Serum or plasma anion gap de terminationon 10-09-2023 Anion gap [Moles/Vol] 14.7 mmol/L [facility] Serum or plasma total choles terol/high density lipoprotein (HDL) cholesterol mass venu 10-09-2023 Cholesterol.total/Cho lesterol in HDL [Mass ratio] 2.3 {ratio} [facility] Comment on above: 3.3 - 4.4 LOW RISK4. 4 - 7.1 AVERAGE RISK7.1 - 11.0 MODERATE RISK>11.0 HIGH RISK Outside Colonoscopyon 2022 Outside Colonoscopy [id number] 0CD:127 Normal [facility] Reminderson 12-18-2022 Reminders - From: Amy Menon LPN To: GSN - Clinical; Sent: 12/18/2022 12:06:16 EDT Show up: 11/16/2025 07:00:00 EDT Subject: colonoscopy recall Due Date/Time: 12/17/2025 07:00:00 EDT Reminder/Recall Patient due for surveillance colonoscopy 12/17/2025. Normal [facility] POINT OF CARE GLUCOSEon 11-19 Glucose [Mass/Vol] 176 mg/dL Critically high 74-106 [facility] Comment on above: Performed By: #### P OCGLUC #### [facility] [address] [address] [address] Rojelio Kingsley POINT OF CARE GLUCOSEon 11-19 Glucose [Mass/Vol] 157 mg/dL Critically high -106 [facility] Comment on above: Performed By: #### P OCGLUC #### [facility] [address] [address] [address] Rojelio Kingsley Consent for Procedure/Surger yon 12-03-2022 Consent for Procedure/Surgery [id number] 0CD:127 Normal [facility] Physician Referralon 023 Physician Referral [id number] 0CD:127 Normal [facility] General Surgery Office/Clini c Noteon 12-02-2022 [...] anastomosis and ventral hernia repair [facility], they recommend yearly surveillance sigmoidoscopies; [...] 1 tab(s), (more content not included)... Normal [facility] Comment on above: Result Comment: Elec tronically Signed By: PELON VANESSA, Nya Nicholson\Date and Time Signed: 12/02/22 11:37 EDT POINT OF CARE GLUCOSEon 04-2 Glucose [Mass/Vol] 121 mg/dL Critically high 74-106 [facility] Comment on above: Performed By: #### P OCGLUC #### [facility] [address] [place] [address] Dr. Rojelio Kingsley ALLIED HEALTHon 10-11-2022 [facility]ALTH HNO ID: [id number] Author: RT Marisa(R) Service: Radiology Author Type: [...] RT Marisa(R) October 11, 2022 10:29 AM [facility] [place] CT ABD/PEL WO IVCONon 2022 CT ABD/PEL [...] site. Lower thorax: Lower lungs are clear. 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 IMPRESSION: Midline fat-containing upper abdominal hernia. Automatic Outsole Cutter: DANIEL Transcribe Date/Time: Oct 13 2022 7:57A Dictated by : YANICK RIVAS MD This examination was interpreted and the report reviewed and electronically signed by: YANICK RIVAS MD on Oct 13 2022 8:06AM EST [id number] [facility] [place] Consent for Procedure/Surger yon 09-17-2022 Consent for Procedure/Surgery [id number] 0CD:127 Normal [facility] RAD - Ultrasound Reporton RAD - Ultrasound Report [id number] 0CD:127 Normal [facility] Ambulatory Visit Summaryon 0 09-16-2022 Ambulatory [...] no longer receiving treatment for. Hyperlipidemia Normal [facility] Ambulatory Visit Summary LIZZY YEE :1945 [...] no longer receiving treatment for. Hyperlipidemia Normal [facility] General Surgery Office/Clini c Noteon 09-16-2022 [...] anastomosis and ventral hernia repair 09/2021 at [facility]; requires yearly flexible sigmoidoscopy for [...] Oral, Nathalie (more content not included)... Normal [facility] Comment on above: Result Comment: Elec tronically Signed By: PELON VANESSA, Nya Nicholson\Date and Time Signed: 09/16/22 11:17 EST Alanine Aminotransferaseon 0 - ALT [Catalytic activity/Vol] 30 U/L Normal 16-63 [facility] Other Comment on above: Performed By: #### B MP, ALT, LIPID #### [facility] [id number] Rojelio Kingsley Basic Metabolic Panelon 08-21 Calcium [Mass/Vol] 9.6565422 mg/dL 8.5-10 .1 mg/dL [facility] Other CO2 [Moles/Vol] 25.11626516 mmol/L 21.0-3 2.0 mmol/L [facility] Other Creatinine [Mass/Vol] 1.21460089 mg/dL Critically high 0.70-1.30 mg/dL [facility] Other Potassium [Moles/Vol] 4.16137750 mmol/L 3 .5-5.1 mmol/L [facility] Other Urea nitrogen [Mass/Vol] 16.9336780 mg/dL 7.0-18.0 mg/dL [facility] Other Basic Metabolic Panel see note [facility] Other Basic Metabolic Panel 141 mmol/L 136-14 5 mmol/L [facility] Other Basic Metabolic Panel 134 mg/dL Critically high 74-106 mg /dL [facility] Other Basic Metabolic Panel 51 mL/min/1.73m2 Critically low >=60 mL/min/1.73m 2 [facility] Other Basic Metabolic Panel >60 mL/min/1.73m2 > =60 mL/min/1.73m 2 [facility] Other Anion gap [Moles/Vol] 15.2 mmol/L Normal No [facility] Other Comment on above: Performed By: #### B MP, ALT, LIPID #### [facility] [address] [place], [place] [address] Dr. Rojelio Kingsley Chloride [Moles/Vol] 105 mmol/L Normal 98-107 [facility] Other Comment on above: Performed By: #### B MP, ALT, LIPID #### [facility] [address] [place] [address] Dr. Rojelio Kingsley Urea nitrogen/Creatinine [Mass ratio] 11.8 mg/mg Normal [facility] Other Comment on above: Performed By: #### B MP, ALT, LIPID #### [facility] [address] [place] [address] Dr. Rojelio Kingsley CBC AUTO DIFFon 09-12-2022 BASO # 0.0 103/ul Normal 0.0-0.1 [facility] Comment on above: Performed By: #### C BC #### [facility] [address] [place] [address] Dr. Rojelio Kingsley Basophils/100 WBC (Bld) 0.4 % Normal 0.2-2.0 [facility] Comment on above: Performed By: #### C BC #### [facility] [address] [place] [address] Dr. Rojelio Kingsley EO # 0.3 103/ul Normal 0.0-0.7 [facility] Comment on above: Performed By: #### C BC #### [facility] [address] [place] [address] Dr. Rojelio Kingsley Eosinophils/100 WBC (Bld) 3.6 % Normal 0.9-7.0 [facility] Comment on above: Performed By: #### C BC #### [facility] [address] [place] [address] Dr. Rojelio Kingsley Erythrocyte distribution width (RBC) [Ratio] 14.1 % Normal 11.0-15.0 [facility] Comment on above: Performed By: #### C BC #### [facility] [address] [place] [address] Dr. Rojelio Kingsley Hematocrit (Bld) [Volume fraction] 40.1 % Critically low 42.0-54.0 [facility] Comment on above: Performed By: #### C BC #### [facility] [address] [place] [address] Dr. Rojelio Kingsley Hemoglobin (Bld) [Mass/Vol] 13.4 g/dL Critically low 14.0-18.0 [facility] Comment on above: Performed By: #### C BC #### [facility] [address] [place] [address] Dr. Rojelio Kingsley IG # 0.02 10e3/ul Normal 0.00-0.03 [facility] Comment on above: Performed By: #### C BC #### [facility] [address] [place] [address] Dr. Rojelio Kingsley IG % 0.2 % Normal 0.0-0.5 [facility] Comment on above: Performed By: #### C BC #### [facility] [address] [place] [address] Dr. Rojelio Kingsley LYMPH # 1.8 103/ul Normal 1.2-3.8 [facility] Comment on above: Performed By: #### C BC #### [facility] [address] [place] [address] Dr. Rojelio Kingsley Lymphocytes/100 WBC (Bld) 21.9 % Normal 20.5-60.0 [facility] Comment on above: Performed By: #### C BC #### [facility] [address] [place] [address] Dr. Rojelio Kingsley MANUAL DIFF REQ NO Normal [facility] Comment on above: Performed By: #### C BC #### [facility] [address] [place] [address] Dr. Rojelio Kingsley MCH (RBC) [Entitic mass] 30.6 pg Normal 25.9-34.0 [facility] Comment on above: Performed By: #### C BC #### [facility] [address] [place] [address] Dr. Rojelio Kingsley MCHC (RBC) [Mass/Vol] 33.4 g/dL Normal 29.9-35.2 [facility] Comment on above: Performed By: #### C BC #### [facility] [address] [place] [address] Dr. Rojelio Kingsley MCV (RBC) [Entitic vol] 91.6 fL Normal 80.0-94.0 [facility] Comment on above: Performed By: #### C BC #### [facility] [address] [place] [address] Dr. Rojelio Kingsley MONO # 0.8 103/ul Normal 0.3-0.8 [facility] Comment on above: Performed By: #### C BC #### [facility] [address] [place] [address] Dr. Roejlio Kingsley Monocytes/100 WBC (Bld) 9.3 % Normal 1.7-12.0 [facility] Comment on above: Performed By: #### C BC #### [facility] [address] [place] [address] Dr. Rojelio Kingsley NEUT # 5.4 103/ul Normal 1.4-6.5 [facility] Comment on above: Performed By: #### C BC #### [facility] [address] [place] [address] Dr. Rojelio Kingsley Neutrophils/100 WBC (Bld) 64.6 % Normal 43.0-75.0 [facility] Comment on above: Performed By: #### C BC #### [facility] [address] [place] [address] Dr. Rojelio Kingsley Platelet mean volume (Bld) [Entitic vol] 10.3 fL Normal 9.5-13.5 [facility] Comment on above: Performed By: #### C BC #### [facility] [address] [place] [address] Dr. Rojelio Kingsley PLT 214 103/ul Normal 150-450 [facility] Comment on above: Performed By: #### C BC #### [facility] [address] [place] [address] Dr. Rojelio Kingsley RBC 4.38 106/ul Critically low 4.70-6.10 [facility] Comment on above: Performed By: #### C BC #### [facility] [address] [place] [address] Dr. Rojelio Kingsley WBC 8.4 103/ul Normal 4.0-11.0 [facility] Comment on above: Performed By: #### C BC #### [facility] [address] [address] [address] Rojelio Kingsley GLYCOHEMOGLOBIN A1Con 2022 ADA RECOMMENDATION SEE BELOW Normal [facility] Comment on above: Result Comment: ADA RECOMMENDED LIMIT 4.0 - 6.0 ADA THERAPEUTIC TARGET < 7.0 ACTION SUGGESTED > 7.0 Performed By: #### P OCGLUC #### [facility] [address] [address] [address] Rojelio Kingsley Glucose [Mass/Vol] 169 mg/dL Normal [facility] Comment on above: Performed By: #### P OCGLUC #### [facility] [address] [address] [address] Rojelio Kingsley HbA1c (Bld) [Mass fraction] 7.5 % Critically high 4.5-6.2 [facility] Comment on above: Performed By: #### P OCGLUC #### [facility] [address] [address] [address] Rojelio Kingsley LIPID PROFILEon 09-12-2022 CHOL-HDL RATIO NORM SEE BELOW Normal [facility] Comment on above: Result Comment: 3.3 - 4.4 LOW RISK 4.4 - 7.1 AVERAGE RISK 7.1 - 11.0 MODERATE RISK >11.0 HIGH RISK Performed By: #### B MP, ALT, LIPID #### [facility] [address] [address] [address] Rojelio Kingsley Cholesterol in LDL [Mass/Vol] 31.2 mg/dL Normal [facility] Comment on above: Performed By: #### B MP, ALT, LIPID #### [facility] [address] [address] [address] Rojelio Kingsley HDL NORMAL > or = 60 mg/dl - LO W CARDIOVASCULAR RISK <40 mg/dl - HIGH CARDIOVASCULAR RISK Normal [facility] Comment on above: Performed By: #### B MP, ALT, LIPID #### [facility] [address] [address] [address] Rojelio Kingsley LDL CALC NORMAL SEE BELOW Normal [facility] Comment on above: Result Comment: <100 mg/dl OPTIMAL 100 - 129 mg/dl NEAR OR ABOVE OPTIMAL 130 - 159 mg/dl BORDERLINE HIGH 160 - 189 mg/dl HIGH >190 mg/dl VERY HIGH Performed By: #### B MP, ALT, LIPID #### [facility] [address] [address] [address] Rojelio Kingsley VLDL CALC 40.8 mg/dL Normal [facility] Comment on above: Performed By: #### B MP, ALT, LIPID #### [facility] [address] [address] [address] Rojelio Kingsley Lipid Panelon 09-12-2022 Lipid Panel > or = 60 mg/dl - LO W CARDIOVASCULAR RISK <40 mg/dl - HIGH CARDIOVASCULAR RISK [facility] Other Lipid Panel SEE BELOW [facility] Other Lipid Panel 31.2 mg/dL [facility] Other Lipid Panel 40.8 mg/dL [facility] Other Cholesterol [Mass/Vol] 115 mg/dL Normal <=200 [facility] Other Comment on above: Performed By: #### B MP, ALT, LIPID #### [facility] [address] [address] [address] Rojelio Kingsley Cholesterol in HDL [Mass/Vol] 43 mg/dL Normal 40-60 [facility] Other Comment on above: Performed By: #### B MP, ALT, LIPID #### [facility] [address] [address] [address] Rojelio Kingsley Cholesterol.total/Cho lesterol in HDL [Mass ratio] 2.7 {ratio} Normal [facility] Other Comment on above: Performed By: #### B MP, ALT, LIPID #### [facility] [address] [address] [address] Rojelio Kingsley Triglyceride [Mass/Vol] 204 mg/dL Critically high <=150 [facility] Other Comment on above: Performed By: #### B MP, ALT, LIPID #### [facility] [address] [address] [address] Rojelio Kingsley MICROALBUMIN, RAND URon 02- mALB 2.1 mg/L Normal <=30.0 [facility] Comment on above: Performed By: #### M ALBR #### [facility] [address] [place] [address] Dr. Rojelio Kingsley PROF CHEM 8 (BAS METB)on Calcium [Mass/Vol] 9.6 mg/dL Normal 8.5-10.1 [facility] Comment on above: Performed By: #### B MP, ALT, LIPID #### [facility] [address] [place] [address] Dr. Rojelio Kingsley CO2 [Moles/Vol] 25.1 mmol/L Normal 21.0-32.0 [facility] Comment on above: Performed By: #### B MP, ALT, LIPID #### [facility] [address] [place] [address] Dr. Roejlio Kingsley Creatinine [Mass/Vol] 1.36 mg/dL Critically high 0.70-1.30 [facility] Comment on above: Performed By: #### B MP, ALT, LIPID #### [facility] [address] [place] [address] Dr. Rojelio Kingsley EGFR-AF EGYPTIAN >60 Normal >=60 [facility] [facility] Comment on above: Performed By: #### B MP, ALT, LIPID #### [facility] [address] [place] [address] Dr. Rojelio Kingsley EGFR-NON AF EGYPTIAN 51 mL/min/1.73m2 Critically low >=60 [facility] Comment on above: Performed By: #### B MP, ALT, LIPID #### [facility] [address] [place] [address] Dr. Rojelio Kingsley Glucose [Mass/Vol] 134 mg/dL Critically high 74-106 [facility] Comment on above: Performed By: #### B MP, ALT, LIPID #### [facility] [address] [place] [address] Dr. Rojelio Kingsley Potassium [Moles/Vol] 4.3 mmol/L Normal 3.5-5.1 [facility] Comment on above: Performed By: #### B MP, ALT, LIPID #### [facility] [address] [address] [address] Rojelio Kingsley Sodium [Moles/Vol] 141 mmol/L Normal 136-145 [facility] Comment on above: Performed By: #### B MP, ALT, LIPID #### [facility] [address] [address] [address] Rojelio Kingsley Urea nitrogen [Mass/Vol] 16.0 mg/dL Normal 7.0-18.0 [facility] Comment on above: Performed By: #### B MP, ALT, LIPID #### [facility] [address] [address] [address] Rojelio Kingsley US CAROTID ART BILon [...] GABY PADILLA Date: 2022-09-12 15:22 Normal The [facility] US CAROTID ART ZHENG [employer] Other POINT OF CARE GLUCOSEon 06-19 Glucose [Mass/Vol] 106 mg/dL Normal 74-106 [facility] Comment on above: Performed By: #### P OCGLUC #### [facility] [address] [address] [address] Rojelio Kings[facility]on SARS-CoV-2 (COVID-19) RNA MITCHELL+probe Ql (Unsp spec) Not detected Normal NOT DETECTED The [facility] Comment on above: Result Comment: This test is not yet approved or cleared by the [place] FDA. When there are no FDA-approved or cleared tests available, and other criteria are met, FDA can make tests available under an emergency access mechanism called an Emergency Use Authorization (EUA). The EUA for this test is supported by the [place] of Health and Human Service's (HHS's) declaration [...] SARS-CoV-2. Performed By: #### P OCGLUC #### [facility] [address] [address] [address] Rojelio Kingsley POINT OF CARE GLUCOSEon 04-20 Glucose [Mass/Vol] 129 mg/dL Critically high 74-106 [facility] Comment on above: Performed By: #### P OCGLUC #### [facility] [address] [address] [address] Rojelio Kingsley POINT OF CARE GLUCOSEon 03-21 Glucose [Mass/Vol] 116 mg/dL Critically high 74-106 [facility] Comment on above: Performed By: #### P OCGLUC #### [facility] [address] [address] [address] Rojelio Kingsley XR LSPINE 2_3 VIEWSon [...] GABY PADILLA Date: 2022-03-05 13:06 Normal The [facility] CBC AUTO DIFFon 02-22-2022 BASO # 0.0 103/ul Normal 0.0-0.1 [facility] Comment on above: Performed By: #### P OCGLUC #### [facility] [address] [address] [address] Rojelio Kingsley Basophils/100 WBC (Bld) 0.4 % Normal 0.2-2.0 [facility] Comment on above: Performed By: #### P OCGLUC #### [facility] [address] [address] [address] Rojelio Kingsley EO # 0.3 103/ul Normal 0.0-0.7 [facility] Comment on above: Performed By: #### P OCGLUC #### [facility] [address] [address] [address] Rojelio Kingsley Eosinophils/100 WBC (Bld) 3.0 % Normal 0.9-7.0 The [facility] Comment on above: Performed By: #### P OCGLUC #### [facility] [address] [address] [address] Rojelio Kingsley Erythrocyte distribution width (RBC) [Ratio] 14.4 % Normal 11.0-15.0 [facility] Comment on above: Performed By: #### P OCGLUC #### [facility] [address] [address] [address] Rojelio Kingsley Hematocrit (Bld) [Volume fraction] 37.1 % Critically low 42.0-54.0 [facility] Comment on above: Performed By: #### P OCGLUC #### [facility] [address] [address] [address] Rojelio Kingsley Hemoglobin (Bld) [Mass/Vol] 12.2 g/dL Critically low 14.0-18.0 [facility] Comment on above: Performed By: #### P OCGLUC #### [facility] [address] [address] [address] Rojelio Kingsley IG # 0.03 10e3/ul Normal 0.00-0.03 [facility] Comment on above: Performed By: #### P OCGLUC #### [facility] [address] [address] [address] Rojelio Kingsley IG % 0.4 % Normal 0.0-0.5 [facility] Comment on above: Performed By: #### P OCGLUC #### [facility] [address] [address] [address] Rojelio Kingsley LYMPH # 1.8 103/ul Normal 1.2-3.8 [facility] Comment on above: Performed By: #### P OCGLUC #### [facility] [address] [address] [address] Rojelio Kingsley Lymphocytes/100 WBC (Bld) 21.6 % Normal 20.5-60.0 [facility] Comment on above: Performed By: #### P OCGLUC #### [facility] [address] [address] [address] Rojelio Kingsley MANUAL DIFF REQ NO Normal [facility] Comment on above: Performed By: #### P OCGLUC #### [facility] [address] [address] [address] Rojelio Kingsley MCH (RBC) [Entitic mass] 30.0 pg Normal 25.9-34.0 [facility] Comment on above: Performed By: #### P OCGLUC #### [facility] [address] [address] [address] Rojelio Kingsley MCHC (RBC) [Mass/Vol] 32.9 g/dL Normal 29.9-35.2 [facility] Comment on above: Performed By: #### P OCGLUC #### [facility] [address] [address] [address] Rojelio Kingsley MCV (RBC) [Entitic vol] 91.4 fL Normal 80.0-94.0 [facility] Comment on above: Performed By: #### P OCGLUC #### [facility] [address] [address] [address] Rojelio Kingsley MONO # 0.7 103/ul Normal 0.3-0.8 [facility] Comment on above: Performed By: #### P OCGLUC #### [facility] [address] [address] [address] Rojelio Kingsley Monocytes/100 WBC (Bld) 8.4 % Normal 1.7-12.0 [facility] Comment on above: Performed By: #### P OCGLUC #### [facility] [address] [address] [address] Rojelio Kingsley NEUT # 5.5 103/ul Normal 1.4-6.5 [facility] Comment on above: Performed By: #### P OCGLUC #### [facility] [address] [address] [address] Rojelio Kingsley Neutrophils/100 WBC (Bld) 66.2 % Normal 43.0-75.0 [facility] Comment on above: Performed By: #### P OCGLUC #### [facility] [address] [address] [address] Rojelio Kingsley Platelet mean volume (Bld) [Entitic vol] 10.3 fL Normal 9.5-13.5 [facility] Comment on above: Performed By: #### P OCGLUC #### [facility] [address] [address] [address] Rojelio Kingsley PLT 202 103/ul Normal 150-450 The [facility] Comment on above: Performed By: #### P OCGLUC #### [facility] [address] [address] [address] Rojelio Kingsley RBC 4.06 106/ul Critically low 4.70-6.10 [facility] Comment on above: Performed By: #### P OCGLUC #### [facility] [address] [address] [address] Rojelio Kingsley WBC 8.3 103/ul Normal 4.0-11.0 [facility] Comment on above: Performed By: #### P OCGLUC #### [facility] [address] [address] [address] Rojelio Kingsley GLYCOHEMOGLOBIN A1Con 2021 ADA RECOMMENDATION SEE BELOW Normal [facility] Comment on above: Result Comment: ADA RECOMMENDED LIMIT 4.0 - 6.0 ADA THERAPEUTIC TARGET < 7.0 ACTION SUGGESTED > 7.0 Performed By: #### A 1C #### [facility] [address] [place] [address] Dr. Rojelio Kingsley Glucose [Mass/Vol] 151 mg/dL Normal [facility] Comment on above: Performed By: #### A 1C #### [facility] [address] [place] [address] Dr. Rojelio Kingsley HbA1c (Bld) [Mass fraction] 6.9 % Critically high 4.5-6.2 [facility] Comment on above: Performed By: #### A 1C #### [facility] [address] [place] [address] Dr. Rojelio Kingsley Consultation Noteon 02-19-20 Consultation Note [id number] 0CD:127 Normal [facility] KNEE RIGHT 3 [facility] 1 KNEE RIGHT 3 [facility] Department of Radiology [address] [place] [id number] ======== Patient Name: LIZZY YEE : [...] noted. Electronically signed: Mitul Banks. Transcribed by: [email or web address], User Resident: Electronically Signed by: MITUL BANKS @ 01/09/2021 08:47 PM Normal The [facility] POC GLUCOSE LABon 12-29-2020 Glucose [Mass/Vol] 194 mg/dL High 70-100 The [facility] Comment on above: Performed By: #### 8 [id number] #### [facility] [address] [place] [address], [place] Glucose [Mass/Vol] 125 mg/dL High 70-100 [facility] Comment on above: Performed By: #### 8 [id number] #### [facility] [address] [place] [address], [place] POC GLUCOSE LABon 12-28-2020 Glucose [Mass/Vol] 197 mg/dL High 70-100 [facility] Comment on above: Performed By: #### 8 [id number] #### [facility] [address] [place] [address], [place] Glucose [Mass/Vol] 177 mg/dL High 70-[address] [facility] Comment on above: Performed By: #### 8 [id number] #### [facility] [address] [place] [address], [place] Glucose [Mass/Vol] 215 mg/dL High 70-100 The [facility] Comment on above: Performed By: #### 8 [id number] #### [facility] [address] [place] [address], [place] Glucose [Mass/Vol] 152 mg/dL High 70-100 The [facility] Comment on above: Performed By: #### 8 [id number] #### [facility] [address] [place] [address], [place] BASIC METABOLIC PANELon 06- 0-2020 Calcium [Mass/Vol] 8.2 mg/dL Low 8.6-10.3 The [facility] Comment on above: Order Comment: No: D o not add to previous draw Performed By: #### 8 [id number] #### [facility] [address] [place] [address], [place] Chloride [Moles/Vol] 102 mmol/L Normal 98-107 The [facility] Comment on above: Order Comment: No: D o not add to previous draw Performed By: #### 8 [id number] #### [facility] [address] [place] [address], [place] CO2 [Moles/Vol] 23 mmol/L Normal 21-31 The [facility] Comment on above: Order Comment: No: D o not add to previous draw Performed By: #### 8 [id number] #### [facility] [address] [place] [address], [place] Creatinine [Mass/Vol] 0.97 mg/dL Normal 0.70-1.30 The [facility] Comment on above: Order Comment: No: D o not add to previous draw Performed By: #### 8 [id number] #### [facility] [address] [place] [address], [place] GFR/1.73 sq M.predicted among blacks MDRD (S/P/Bld) [Vol rate/Area] mL/min/{1.73_m2} Normal >60 The [facility] Comment on above: Order Comment: No: D o not add to previous draw Result Comment: Calc ulation may not be valid for patients over 70 years Performed By: #### 8 [id number] #### [facility] [address] [place] [address], [place] GFR/1.73 sq M.predicted among non-blacks MDRD (S/P/Bld) [Vol rate/Area] mL/min/{1.73_m2} Normal >60 The [facility] Comment on above: Order Comment: No: D o not add to previous draw Result Comment: Calc ulation may not be valid for patients over 70 years Performed By: #### 8 [id number] #### [facility] [address] [place] [address], [place] Glucose [Mass/Vol] 191 mg/dL High 70-100 The [facility] Comment on above: Order Comment: No: D o not add to previous draw Performed By: #### 8 [id number] #### [facility] [address] [place] [address], [place] Potassium [Moles/Vol] 3.8 mmol/L Normal 3.5-5.1 The [facility] Comment on above: Order Comment: No: D o not add to previous draw Performed By: #### 8 [id number] #### [facility] [address] [place] [address], [place] Sodium [Moles/Vol] 134 mmol/L Low 136-145 The [facility] Comment on above: Order Comment: No: D o not add to previous draw Performed By: #### 8 [id number] #### [facility] [address] [place] [address], [place] Urea nitrogen [Mass/Vol] 23 mg/dL Normal 7-25 The [facility] Comment on above: Order Comment: No: D o not add to previous draw Performed By: #### 8 [id number] #### [facility] [address] [place] [address], [facility] CBC COMPLETE BLOOD COUNTon 0 12-27-2020 Erythrocyte distribution width (RBC) [Ratio] 13.3 % Normal 11.5-15.0 The [facility] Comment on above: Order Comment: No: D o not add to previous draw Performed By: #### 8 [id number] #### [facility] [address] [place] [address], [facility] Hematocrit (Bld) [Volume fraction] 35.4 % Low 39.0-50.0 The [facility] Comment on above: Order Comment: No: D o not add to previous draw Performed By: #### 8 [id number] #### [facility] [address] [place] [address], [facility] Hemoglobin (Bld) [Mass/Vol] 11.7 g/dL Low 13.0-17.0 The [facility] Comment on above: Order Comment: No: D o not add to previous draw Performed By: #### 8 [id number] #### [facility] [address] [place] [address], [facility] MCH (RBC) [Entitic mass] 31.2 pg Normal 27.0-33.0 The [facility] Comment on above: Order Comment: No: D o not add to previous draw Performed By: #### 8 [id number] #### [facility] [address] [place] [address], [facility] MCHC (RBC) [Mass/Vol] 33.1 g/dL Normal 32.0-35.0 The [facility] Comment on above: Order Comment: No: D o not add to previous draw Performed By: #### 8 [id number] #### [facility] [address] [place] [address], [facility] MCV (RBC) [Entitic vol] 94.4 fL Normal 82.0-98.0 The [facility] Comment on above: Order Comment: No: D o not add to previous draw Performed By: #### 8 [id number] #### [facility] [address] [place] [address], [facility] Nucleated RBC/100 WBC (Bld) [Ratio] 0 % Normal 0-0 The [facility] Comment on above: Order Comment: No: D o not add to previous draw Performed By: #### 8 [id number] #### [facility] [address] [place] [address], [facility] PLAT CNT 177 10*3/uL Normal 150-400 The [facility] Comment on above: Order Comment: No: D o not add to previous draw Performed By: #### 8 [id number] #### [facility] [address] [place] [address], [facility] RBC (Bld) [#/Vol] 3.75 10*6/uL Low 4.20-5.70 The [facility] Comment on above: Order Comment: No: D o not add to previous draw Performed By: #### 8 [id number] #### [facility] [address] [place] [address], [facility] WBC (Bld) [#/Vol] 16.83 10*3/uL High 4.00-10.60 The [facility] Comment on above: Order Comment: No: D o not add to previous draw Performed By: #### 8 [id number] #### [facility] [address] Operative Reporton Operative Report MR#: [id number] I [facility] Pt. Name: Lizzy Yee Room #: [id number] Discharge Date: Birthdate: 1945 OPERATIVE REPORT DATE [...] surgery. 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 The patient signed the consent form. Site was marked. We proceed with IV antibiotics in the form of 2 g of Ancef within an hour of the incision. PROCEDURE IN DETAIL: After written consent obtained, site was marked. The patient was taken to the [facility] OR and was seen by anesthesia. [...] futu (more content not included)... Normal The [facility] POC GLUCOSE LABon 12-27-2020 Glucose [Mass/Vol] 200 mg/dL High 70-100 [facility] Comment on above: Performed By: #### 8 [id number] #### [facility] [address] [place] [address], [place] Glucose [Mass/Vol] 186 mg/dL High 70-100 [facility] Comment on above: Performed By: #### 8 [id number] #### [facility] [address] [place] [address], [place] Glucose [Mass/Vol] 250 mg/dL High 70-100 [facility] Comment on above: Performed By: #### 8 [id number] #### [facility] [address] [place] [address], [place] Glucose [Mass/Vol] 177 mg/dL High 70-100 [facility] Comment on above: Performed By: #### 8 [id number] #### [facility] [address] [place] [address], [place] POC GLUCOSE LABon 12-26-2020 Glucose [Mass/Vol] 230 mg/dL High 70-100 [facility] Comment on above: Performed By: #### 8 [id number] #### [facility] [address] [place] [address], [place] Glucose [Mass/Vol] 278 mg/dL High 70-100 [facility] Comment on above: Performed By: #### 8 [id number] #### [facility] [address] [place] [address], [place] Glucose [Mass/Vol] 174 mg/dL High 70-100 [facility] Comment on above: Performed By: #### 8 [id number] #### [facility] [address] [place] [address], [place] Glucose [Mass/Vol] 146 mg/dL High 70-100 [facility] Comment on above: Performed By: #### 8 [id number] #### [facility] [address] [place] [address], [place] PORTABLE KNEE RIGHT 2 VWSon 12-26-2020 PORTABLE KNEE RIGHT 2 VWS [facility] Department of Radiology [address] [place] [address] ======== Patient Name: LIZZY YEE : 1945 Sex: M Age: Race: White Pt. Location: [place] [address] Patient Status: I Ordered Date: 12/26/2020 7:05:00 [...] replacement. Electronically signed: José Thornton. Transcribed by: [email or web address], User Resident: JOSÉ THORNTON Electronically Signed by: JOSÉ THORNTON @ 12/26/2020 03:28 PM I personally read this/these film(s) with this resident Normal The [facility] Comment on above: Order Comment: Hardw are Evaluation, In PACU; HIP RIGHT 1 OR 2 VWS WITH PE LVISon 10-05-2020 HIP RIGHT 1 OR 2 VWS WITH PELVIS [facility] Department of Radiology [address] [place] [address] ======== Patient Name: LIZZY YEE [...] narrowing. Electronically signed: Mitul Banks. Transcribed by: [email or web address], User Resident: Electronically Signed by: MITUL BANKS @ 10/05/2020 01:08 PM Normal The [facility] Comment on above: Order Comment: Views (X-RAY, HIP): AP Pelvis, X-Table Lateral Hip , Weight Bearing?: Y KNEE LEFT 4VWSon 08-20-2020 KNEE LEFT 4VWS [facility] Department of Radiology [address] [place] [id number] ======== Patient Name: LIZZY YEE : 1945 Sex: M Age: Race: White Pt. Location: Patient Status: O Ordered Date: 08/20/2020 8:10:00 AM Completed Date: 08/20/2020 08:14 AM Requesting Provider: CEDRICK WILD Attending Provider: CEDRICK WILD Report Copy To: Signs & Symptoms: M25.569 Pain in unspecified knee I10 History: [place] Comments: Views (X-RAY, KNEE): AP, Lateral, Tunnel, [place] , Weight Bearing?: Y Exam: KNEE LEFT 4VWS ======== KNEE LEFT 4VWS 08/20/2020 8:14 AM CLINICAL INDICATIONS: M25.569 Pain in unspecified knee I10 TECHNOLOGIST COMMENTS: Patient states having bilateral knee pain. QUESTION FOR THE RADIOLOGIST: Views (X-RAY, KNEE): AP, Lateral, Tunnel, [place] , Weight Bearing?: Y PROTOCOL: AP,Lateral,Tunnel and [...] reviewed the images and reports Electronically signed: jE Francisco. Transcribed by: [email or web address], User Resident: TAMERA MARIE Electronically Signed by: EJ FRANCISCO @ 08/20/2020 08:41 AM I personally read this/these film(s) with this resident Normal The [facility] Comment on above: Order Comment: Views (X-RAY, KNEE): AP, Lateral, Tunnel, [place] , Weight Bearing?: Y KNEE RIGHT 4 Son KNEE RIGHT 4 [facility] Department of Radiology [address] [place] [id number] ======== Patient Name: LIZZY YEE : 1945 Sex: M Age: Race: White Pt. Location: Patient Status: O Ordered Date: 08/20/2020 8:10:00 AM Completed Date: 08/20/2020 08:14 AM Requesting Provider: CEDRICK WILD Attending Provider: CEDRICK WILD Report Copy To: Signs & Symptoms: M25.569 Pain in unspecified knee I10 History: [place] Comments: Views (X-RAY, KNEE): AP, Lateral, Tunnel, [place] , Weight Bearing?: Y Exam: KNEE RIGHT 4 S ======== KNEE RIGHT 4 VWS 08/20/2020 8:14 AM SIGNS AND SYMPTOMS: M25.569 Pain in unspecified knee I10 TECHNOLOGIST COMMENTS: Patient states having bilateral knee pain. QUESTION FOR THE RADIOLOGIST: Views (X-RAY, KNEE): AP, Lateral, Tunnel, [place] , Weight Bearing?: Y PROTOCOL: AP,Lateral,Tunnel and [...] knee. Electronically signed: Ej Francisco. Transcribed by: [email or web address], User Resident: Electronically Signed by: EJ FRANCISCO @ 08/20/2020 08:30 AM Normal The [facility] Comment on above: Order Comment: Views (X-RAY, KNEE): AP, Lateral, Tunnel, [place] , Weight Bearing?: Y Vital Signs Date Time Vital Sign Value Performing Clinician Facility 04-21-2024 15:20-0400 Body mass index (BMI) [Ratio] 39.5 kg/m2 DO Juancarlos Ball Work Phone: [facility] 04-21-2024 13:34-0400 Body height 161.29 cm DO Juancarlos Ball Work Phone: [facility] 04-21-2024 13:34-0400 Body weight 101.6 kg DO Jauncarlos Ball Work Phone: [facility] 04-20-2024 16:32-0400 Body height 165.1 cm DO Juancarlos Ball Work Phone: [facility] 04-20-2024 16:32-0400 Body mass index (BMI) [Ratio] 37.3 kg/m2 DO Juancarlos Ball Work Phone: [facility] 04-20-2024 16:32-0400 Body weight 101.66 kg DO Juancarlos Ball Work Phone: [facility] 03-09-2024 13:34-0400 Body height 161.29 cm DO Juancarlos Ball Work Phone: [facility] 03-09-2024 13:34-0400 Body mass index (BMI) [Ratio] 39.8 kg/m2 DO Juancarlos Ball Work Phone: [facility] 03-09-2024 13:34-0400 Body weight 103.58 kg DO Juancarlos Ball Work Phone: [facility] 03-09-2024 13:34-0400 Diastolic blood pressure 72 mm[Hg] DO Juancarlos Ball Work Phone: [facility] 03-09-2024 13:34-0400 Heart rate 56 /min DO Juancarlos Ball Work Phone: [facility] 03-09-2024 13:34-0400 Respiratory rate 12 /min DO Juancarlos Ball Work Phone: [facility] 03-09-2024 13:34-0400 Systolic blood pressure 126 mm[Hg] DO Juancarlos Ball Work Phone: [facility] 02-24-2024 13:14-0400 Body height 161.29 cm DO Juancarlos Ball Work Phone: [facility] 02-24-2024 13:14-0400 Body mass index (BMI) [Ratio] 39.4 kg/m2 DO Juancarlos Ball Work Phone: [facility] 02-24-2024 13:14-0400 Body weight 102.73 kg DO Juancarlos Ball Work Phone: [facility] 02-24-2024 13:14-0400 Diastolic blood pressure 58 mm[Hg] DO Juancarlos Ball Work Phone: [facility] 02-24-2024 13:14-0400 Heart rate 53 /min DO Juancarlos Ball Work Phone: [facility] 02-24-2024 13:14-0400 Respiratory rate 20 /min DO Juancarlos Ball Work Phone: [facility] 02-24-2024 13:14-0400 SaO2% (BldA) [Mass fraction] 95 % DO Juancarlos Ball Work Phone: [facility] 02-24-2024 13:14-0400 Systolic blood pressure 120 mm[Hg] DO Juancarlos Ball Work Phone: [facility] 02-08-2024 11:49-0400 Body mass index (BMI) [Ratio] 39.5 kg/m2 DO Juancarlos Ball Work Phone: [facility] 02-08-2024 10:04-0400 Body height 161.29 cm DO Juancarlos Ball Work Phone: [facility] 02-08-2024 10:04-0400 Body weight 101.15 kg DO Juancarlos Ball Work Phone: [facility] 12-08-2023 13:37-0400 Body height 161.29 cm [facility] 12-08-2023 13:37-0400 Body mass index (BMI) [Ratio] 39.4 kg/m2 [facility] 12-08-2023 13:37-0400 Body weight 102.68 kg [facility] 12-08-2023 13:37-0400 Diastolic blood pressure 67 mm[Hg] [facility] 12-08-2023 13:37-0400 Heart rate 61 /min [facility] 12-08-2023 13:37-0400 Respiratory rate 20 /min [facility] 12-08-2023 13:37-0400 Systolic blood pressure 126 mm[Hg] [facility] 11-17-2023 13:12-0400 Body weight 102.71 kg [facility] 11-04-2023 10:57-0400 Body height 161.29 cm [facility] 11-04-2023 10:57-0400 Body mass index (BMI) [Ratio] 39.5 kg/m2 [facility] 11-04-2023 10:57-0400 Body weight 102.96 kg [facility] 11-04-2023 10:57-0400 Diastolic blood pressure 70 mm[Hg] [facility] 11-04-2023 10:57-0400 Heart rate 57 /min [facility] 11-04-2023 10:57-0400 Respiratory rate 18 /min [facility] 11-04-2023 10:57-0400 SaO2% (BldA) [Mass fraction] 97 % [facility] 11-04-2023 10:57-0400 Systolic blood pressure 109 mm[Hg] [facility] 06-05-2023 10:00-0500 Body height 165.1 cm Juancarlos Ball Other [facility] [employer] Other 06-05-2023 10:00-0500 Body mass index (BMI) [Ratio] 39.87 kg/m2 Juancarlos Ball Other [employer] Other 06-05-2023 10:00-0500 Body weight 108.68 kg Juancarlos Ball Other [employer] Other 06-05-2023 10:00-0500 Diastolic blood pressure 71 mm[Hg] Juancarlos Ball Other [employer] Other 06-05-2023 10:00-0500 Respiratory rate 20 /min Juancarlos Ball Other [employer] Other 06-05-2023 10:00-0500 Systolic blood pressure 118 mm[Hg] Juancarlos Ball Other [employer] Other 05-06-2023 13:45-0400 Body height 165.1 cm Juancarlos Ball Other [employer] Other 05-06-2023 13:45-0400 Body mass index (BMI) [Ratio] 39.97 kg/m2 Juancarlos Ball Other [employer] Other 05-06-2023 13:45-0400 Body weight 108.95 kg Juancarlos Ball Other [employer] Other 05-06-2023 13:45-0400 Diastolic blood pressure 87 mm[Hg] Juancarlos Ball Other [employer] Other 05-06-2023 13:45-0400 Respiratory rate 16 /min Juancarlos Ball Other [employer] Other 05-06-2023 13:45-0400 Systolic blood pressure 158 mm[Hg] Juancarlos Ball Other [employer] Other 03-10-2023 11:00-0400 Body height 165.1 cm Juancarlos Ball Other [employer] Other 03-10-2023 11:00-0400 Body mass index (BMI) [Ratio] 39.3 kg/m2 Juancarlos Ball Other [employer] Other 03-10-2023 11:00-0400 Body weight 107.14 kg Juancarlos Ball Other [employer] Other 03-10-2023 11:00-0400 Diastolic blood pressure 67 mm[Hg] Juancarlos Ball Other [employer] Other 03-10-2023 11:00-0400 Respiratory rate 16 /min Juancarlos Ball Other [employer] Other 03-10-2023 11:00-0400 Systolic blood pressure 120 mm[Hg] Juancarlos Ball Other [employer] Other 10-16-2022 13:12-0400 Body temperature 97.11 [degF] Jay Gonzalez MD Work Phone: [facility] 10-16-2022 13:12-0400 Diastolic blood pressure 66 mm[Hg] Jay Gonzalez MD Work Phone: [facility] 10-16-2022 13:12-0400 Heart rate 51 /min Jay Gonzalez MD Work Phone: [facility] 10-16-2022 13:12-0400 SaO2% (BldA) [Mass fraction] 96 % Jay Gonzalez MD Work Phone: [facility] 10-16-2022 13:12-0400 Systolic blood pressure 143 mm[Hg] Jay Gonzalez MD Work Phone: [facility] 09-08-2022 13:30-0500 Body height 165.1 cm Juancarlos Ball Other [employer] Other 09-08-2022 13:30-0500 Body mass index (BMI) [Ratio] 39.33 kg/m2 Juancarlos Ball Other [employer] Other 09-08-2022 13:30-0500 Body weight 107.23 kg Juancarlos Ball Other [employer] Other 09-08-2022 13:30-0500 Diastolic blood pressure 70 mm[Hg] Juancarlos Ball Other [employer] Other 09-08-2022 13:30-0500 Respiratory rate 20 /min Juancarlos Ball Other [employer] Other 09-08-2022 13:30-0500 Systolic blood pressure 112 mm[Hg] Juancralos Ball Other [employer] Other 01-27-2022 13:20-0400 Body height 165.1 cm Jus Medina MD Work Phone: [facility] 01-27-2022 13:20-0400 Body temperature 96.91 [degF] Jus Medina MD Work Phone: [facility] 01-27-2022 13:20-0400 Body weight 104.33 kg Jus Medina MD Work Phone: [facility] 01-27-2022 13:20-0400 Diastolic blood pressure 56 mm[Hg] Jus Medina MD Work Phone: [facility] 01-27-2022 13:20-0400 Heart rate 50 /min Jus Medina MD Work Phone: [facility] 01-27-2022 13:20-0400 SaO2% (BldA) [Mass fraction] 98 % Jus Medina MD Work Phone: [facility] 01-27-2022 13:20-0400 Systolic blood pressure 131 mm[Hg] Jus Medina MD Work Phone: [facility] 10-10-2021 10:46-0400 Body height 165.1 cm Jay Gonzalez MD Work Phone: [facility] 10-10-2021 10:46-0400 Body weight 102.51 kg Jay Gonzalez MD Work Phone: [facility] 10-10-2021 10:46-0400 Diastolic blood pressure 65 mm[Hg] Jay Gonzalez MD Work Phone: [facility] 10-10-2021 10:46-0400 Heart rate 76 /min Jay Gonzalez MD Work Phone: [facility] 10-10-2021 10:46-0400 Systolic blood pressure 137 mm[Hg] Jay Gonzalez MD Work Phone: [facility] 10-10-2021 10:44-0400 Body height 165.1 cm Jus Medina MD Work Phone: [facility] 10-10-2021 10:44-0400 Body weight 102.51 kg Jus Medina MD Work Phone: [facility] 10-10-2021 10:44-0400 Diastolic blood pressure 65 mm[Hg] Jus Medina MD Work Phone: [facility] 10-10-2021 10:44-0400 Heart rate 76 /min Jus Medina MD Work Phone: [facility] 10-10-2021 10:44-0400 SaO2% (BldA) [Mass fraction] 98 % Jus Medina MD Work Phone: [facility] 10-10-2021 10:44-0400 Systolic blood pressure 137 mm[Hg] Jus Medina MD Work Phone: [facility] Encounters Encounter Date Encounter Type Care Provider Facility Start: 05-04-2024 End: 05-04-2024 ambulatory [facility] Start: 04-21-2024 End: 04-21-2024 Patient encounter procedure DO Juancarlos Ball Work Phone: [facility] Work Phone: Start: 04-21-2024 End: 04-21-2024 Patient encounter procedure DO Juancarlos Ball Work Phone: [facility] Work Phone: Start: 04-21-2024 End: 04-21-2024 Patient encounter procedure DO Juancarlos Ball Work Phone: [facility] Start: 04-21-2024 End: 04-21-2024 ambulatory Ej Anthony II Facility:[facility] Start: 04-11-2024 End: 04-11-2024 ambulatory Hanh Wade MD Facility: [facility] Start: 03-24-2024 End: 03-24-2024 ambulatory ANGELA BINGHAM Not Available Start: 03-09-2024 End: 03-09-2024 Patient encounter procedure DO Juancarlos Ball Work Phone: [facility] Work Phone: Start: 02-24-2024 End: 02-24-2024 Patient encounter procedure DO Juancarlos Ball [facility] Phone[facility] Work [facility]: Start: 02-08-2024 End: 02-08-2024 Patient encounter procedure DO Jauncarlos Bang Work Phone: [facility] Work Phone: Start: 12-15-2023 End: 12-15-2023 ambulatory JOANNA SHANNON Not Available Start: 12-10-2023 End: 12-10-2023 ambulatory ANGELA BINGHAM Not Available Start: 12-08-2023 End: 12-08-2023 Patient encounter procedure [facility] Work Phone: Start: 11-17-2023 End: 11-17-2023 Patient encounter procedure [facility] Work Phone: Start: 11-04-2023 End: 11-04-2023 Patient encounter procedure [facility] Work Phone: Start: 10-27-2023 Telephone encounter Jay patel MD Work Phone: General Surgery Start: 10-15-2023 End: 10-15-2023 ambulatory JAY GONZALEZ Facility:[facility] Start: 10-09-2023 Non-patient / Non-visit [facility] [employer] Work Phone: Start: 10-01-2023 End: 10-01-2023 ambulatory ANGELA BINGHAM Not Available Start: 08-10-2023 (RD) Map Editor Nirmala [facility] Start: 08-10-2023 End: 08-10-2023 ambulatory Juancarlos Cuenca [facility] Other Start: 08-03-2023 End: 08-03-2023 ambulatory Hanh Wade MD Facility: [facility] Start: 07-27-2023 End: 07-27-2023 ambulatory Hanh Wade MD Facility: [facility] Start: 06-17-2023 End: 06-17-2023 ambulatory Juancarlos Cuenca Other [employer] Other Start: 06-17-2023 Telephone encounter Juancarlos Ball [facility] Start: 06-16-2023 End: 06-16-2023 ambulatory Juancarlos Ball Other [employer] Other Start: 06-16-2023 Telephone encounter Juancarlos Ball [facility] Start: 06-09-2023 End: 06-09-2023 ambulatory Juancarlos Ball Other [employer] Other Start: 06-09-2023 Telephone encounter Juancarlos Ball [facility] Start: 06-08-2023 End: 06-08-2023 ambulatory Juancarlos Ball Other [employer] Other Start: 06-08-2023 Telephone encounter Juancarlos Ball [facility] Start: 06-07-2023 End: 06-07-2023 ambulatory Juancarlos Ball Other [employer] Other Start: 06-07-2023 Telephone encounter Juancarlos Ball [facility] Start: 06-05-2023 End: 06-05-2023 ambulatory Juancarlos Ball Other [employer] Other Start: 06-05-2023 Office outpatient vi sit 25 minutes Juancarlos Ball [facility] Start: 05-27-2023 End: 05-27-2023 ambulatory Juancarlos Ball Other [employer] Other Start: 05-27-2023 Telephone encounter Juancarlos Ball [facility] Start: 05-17-2023 End: 05-17-2023 ambulatory Juancarlos Ball Other [employer] Other Start: 05-17-2023 Telephone encounter Juancarlos Ball [facility] Start: 05-15-2023 End: 05-15-2023 ambulatory Juancarlos Ball Other [employer] Other Start: 05-15-2023 Telephone encounter Juancarlos Ball [facility] Start: 05-07-2023 End: 05-07-2023 ambulatory Juancarlos Cuenca Other [employer] Other Start: 05-07-2023 Telephone encounter Juancarlos Cuenca [facility] Start: 05-06-2023 End: 05-06-2023 ambulatory Juancarlos Ball Other [employer] Other Start: 05-06-2023 Office outpatient vi sit 25 minutes Juancarlos Ball [facility] Start: 05-06-2023 Telephone encounter Juancarlos Cuenca [facility] Start: 04-04-2023 End: 04-04-2023 ambulatory Juancarlos Cuenca Other [employer] Other Start: 04-04-2023 Telephone encounter Juancarlos Ceunca [facility] Start: 03-10-2023 End: 03-10-2023 ambulatory Juancarlos Cuenca Other [employer] Other Start: 03-10-2023 Office outpatient vi sit 25 minutes Juancarlos Ball [facility] Start: 12-24-2022 End: 12-24-2022 ambulatory Juancarlos Cuenca Other [employer] Other Start: 12-24-2022 Telephone encounter Juancarlos Cuenca [...] (Primary Dx) Start: 10-11-2022 ambulatory JAY GONZALEZ Facility:[facility] Start: 10-11-2022 End: 10-11-2022 Subsequent hospital visit by physician [facility] Comment on above: 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] Start: 10-06-2022 Telephone encounter Jay patel MD Work Phone: General Surgery Comment on above: Patient Question Start: 09-16-2022 Telephone encounter Juancarlos Cuenca [facility] Start: 09-16-2022 End: 09-17-2022 ambulatory Nya BIRD [facility] [employer] Other Start: 09-16-2022 End: 09-27-2022 Pre-admission assessment Nya BIRD [facility] Start: 09-12-2022 Telephone encounter Juancarlos Cuenca [facility] Start: 09-12-2022 End: 09-13-[address] JUANCARLOS CUENCA [facility] [employer] Other Start: 09-08-2022 End: 09-08-2022 ambulatory Juancarlos Cuenca Other [facility] [employer] Other Start: 09-08-2022 Patient encounter procedure Juancarlos BURKS [facility] Start: 07-31-2022 End: 08-01-[address] EVAN LAMAS . Facility:[facility] Start: 07-03-2022 Encounter for preprocedural laboratory examination DR EVAN LAMAS . [facility] Start: 07-01-2022 End: 07-01-2022 ambulatory [...] Start: 12-26-2020 End: 12-29-2020 ambulatory JUANCARLOS CUENCA Facility:[facility] Start: 10-19-2020 End: 10-20-2020 ambulatory JUANCARLOS CUENCA Facility:[facility] Procedures Date Procedure Procedure Detail Performing [...] 07-20-2023 Advance Directive Discussion Advance Directive Discussion [facility] Start: 07-20-2023 Behavioral Health Screening Behavioral Health Screening [facility] Start: 10-10-2022 End: 11-09-2022 Ct abdomen & pelvis w/o contrast material CT ABD/PEL WO IVCON Radiology Routine Ventral incisional hernia Expected: 10/10/2022, Expires: 11/09/2022 [facility] Work Phone: Comment on above: Expected: 10/10/2022 , Expires: 11/09/2022 Start: 07-20-2022 ADVANCE DIRECTIVE DISCUSSION ADVANCE DIRECTIVE DISCUSSION [facility] Start: 07-20-2022 DEPRESSION ASSESSMENT DEPRESSION ASS ESSMENT [facility] Start: 03-20-2022 Influenza vaccination INFLUENZA (#1) [facility] Start: 03-13-2022 Hemoglobin A1c measurement HbA1C [facility] Start: 03-13-2022 Hemoglobin A1c/Hemoglobin.total in Blood HBA1C [facility] Start: 01-04-2022 COVID-19 VACCINE (5 - Booster for Pfizer series) COVID-19 VACCINE (5 - Booster for Pfizer series) [facility] Start: 07-20-2021 ADVANCE DIRECTIVE DISCUSSION ADVANCE DIRECTIVE DISCUSSION [facility] Start: 04-19-2015 Pneumococcal Vaccine : 65+ (2 of 2 - PCV) Pneumococcal Vaccine: 65+ (2 of 2 - PCV) [facility] Start: 2009 PNEUMOVAX AGE 65 AND OVER WITH 5YR LOOKBACK (#1) PNEUMOVAX AGE 65 AND OVER WITH 5YR LOOKBACK (#1) [facility] Start: 1994 SHINGRIX VACCINE (1 of 2) SHINGRIX VACCINE (1 of 2) [facility] Start: 12-31-1963 Urine microalbumin profile [facility] Start: 1962 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 MACY DISEASE VISIT ANNUAL PCP TEAM CHRONIC DISEASE VISIT [facility] Start: 1962 BP CONTROLLED (<130/80) BP CONTROLLE D (<130/80) [facility] Start: 1962 Hepatitis B surface antibody level LDL CHOLESTEROL [facility] Start: 1962 HEPATITIS C SCREENING [facility]ITIS [facility] Start: 1962 Hepatitis C screening Hepatitis C [facility] Start: 1956 Adult depression screening assessment DEPRESSION SCREENING [facility] Start: 1954 3 comp foot exam completed DIABETIC FOOT EXAM [facility] Start: 1954 Diabetic foot examination Diabetic Foot Exam [facility] Start: 1954 Glaucoma screening Dilated Retinal E xam [facility] Start: 1954 Hepatitis B screening URINE ALBUMIN:CREATININE RATIO [facility] Start: 1954 Hepatitis C antibody , confirmatory test DILATED RETINAL EXAM [facility] Start: 1950 PNEUMOCOCCAL: 65+ (1 - PCV) PNEUMOCOCCAL: 65+ (1 - PCV) [facility] End: 10-11-2022 Ct abdomen & pelvis w/o contrast material [facility] Work Phone: Comment on above: 1 Occurrences starti ng 10/11/2022 until 10/11/2022 End: 11-15-2023 Ct abdomen & pelvis w/o contrast material CT ABD/PEL WO IVCON Radiology Routine Ventral incisional hernia 1 Occurrences starting 10/16/2022 until 11/15/2023 [facility] Work Phone: Comment on above: 1 Occurrences starti ng 10/16/2022 until 11/15/2023 [facility] Immunizations Immunization Date Immunization Notes Care Provider Alexa dietz 05-20-2022 influenza virus vaccine, unspecified formulation Nya BIRD [facility] [place] 05-16-2022 influenza, high dose seasonal, preservative-free Juancarlos Cuenca Other [employer] [facility] [employer] Other 05-16-2022 influenza virus vaccine, split virus (incl. purified surface antigen) Juancarlos Cuenca Other [employer] [facility] [employer] Other 05-16-2022 influenza virus vaccine, unspecified formulation [facility] 04-15-2022 SARS-CoV-2 (COVID-19 ) [id number] Nya BIRD [facility] 11-09-2021 COVID-19 Vaccine Pfi zer - Documentation Purposes Only Juancarlos Cuenca Other [facility] 11-09-2021 SARS-CoV-2 mRNA (sywdofvhxzo-rjxk-rshnf se) vaccine Nya NILL [facility] 04-19-2021 SARS-CoV-2 (COVID-19 ) mRNA BNT-162b2 vax Nya NILL [facility] Comment on above: Result Comment: 2022: [id number] 09-05-2020 SARS-CoV-2 (COVID-19 ) mRNA BNT-162b2 vax Nya NILL [facility] Comment on above: Result Comment: 2022: [id number] 08-15-2020 COVID-19 Vaccine Moderna - Documentation Purposes Only Juancarlos Bang Other [facility] 08-15-2020 SARS-CoV-2 (COVID-19 ) mRNA BNT-162b2 vax Nya NILL [facility] Comment on above: Result Comment: 2022: [id number] 03-28-2020 influenza virus vaccine, split virus (incl. purified surface antigen) Juancarlos Cuenca Other [employer] Other 03-28-2020 influenza virus vaccine, unspecified formulation [facility] 05-17-2019 influenza virus vaccine, split virus (incl. purified surface antigen) Juancarlos Cuenca Other [employer] Other 05-17-2019 influenza virus vaccine, unspecified formulation [facility] 05-13-2018 influenza virus vaccine, split virus (incl. purified surface antigen) Juancarlos Cuenca Other [employer] Other 05-13-2018 influenza virus vaccine, unspecified formulation [facility] 04-25-2015 influenza virus vaccine, split virus (incl. purified surface antigen) Juancarlos Cuenca Other [employer] Other 04-25-2015 influenza virus vaccine, unspecified formulation [facility] 04-25-2015 pneumococcal conjuga te vaccine, 13 valent Juancarlos Cuenca Other [facility] 04-19-2014 pneumococcal polysaccharide vaccine, 23 valent Juancarlos Cuenca Other [facility] 04-20-2013 tetanus and diphther ia toxoids, adsorbed, preservative free, for adult use (5 Lf of tetanus toxoid and 2 Lf of diphtheria toxoid) Juancarlos Cuenca Other [facility] 04-21-2012 pneumococcal polysaccharide vaccine, 23 valent Juancarlos Cuenca Other [facility] Payers Date Payer Category Payer Self-pay [id number] 2023 Unknown [id number] 2020 Private Health Insurance [facility] AARP SUPPLEMENT [id number] 2020-Present [phone] [address] [place] [address] Indemnity [id number] 2020 Private Health Insurance [facility] AARP SUPPLEMENT [id number] 2020-Present [phone] [address] [place] [address] Indemnity [id number] 2009 Medicare MEDICARE MEDICAR E A AND B [id number] 2009-Present [phone] [place] [address] Medicare [id number] 2009 Medicare [id number] 1959 Medicare [id number] 1959 Unknown [id number] 1944 Unknown [id number] 2.16.840.1.564015.3.579.2 .647 1944 Unknown [id number] 2.16.840.1.770409.3.579.2 .647 1944 Unknown [id number] 2.16.840.1.971565.3.579.2 .593 1944 Unknown [id number] 2.16.840.1.644080.3.579.2 .593 1944 Unknown [id number] 2.16.840.1.084376.3.579.2 .593 1944 Unknown [id number] 2.16.840.1.774879.3.579.2 .593 1944 Unknown [id number] 2.16.840.1.424556.3.579.2 .593 1944 Unknown [id number] 2.16.840.1.511608.3.579.2 .593 1944 Unknown [id number] 2.16.840.1.761176.3.579.2 .593 1944 Unknown [id number] 2.16.840.1.272267.3.579.2 .593 1944 Unknown [id number] 2.16.840.1.801768.3.579.2 .593 1944 Unknown [id number] 2.16.840.1.405389.3.579.2 .593 1944 Unknown [id number] 2.16.840.1.409829.3.579.2 .593 1944 Unknown [id number] 2.16.840.1.689236.3.579.2 .593 1944 Unknown [id number] 2.16.840.1.492115.3.579.2 .593 1944 Unknown [id number] 2.16.840.1.974786.3.579.2 .593 1944 Unknown [id number] 2.16.840.1.471346.3.579.2 .593 1944 Unknown [id number] 2.16.840.1.488472.3.579.2 .593 1944 Unknown [id number] 2.16.840.1.667812.3.579.2 .593 1944 Unknown [id number] 2.16.840.1.141950.3.579.2 .593 1944 Unknown [id number] 2.16.840.1.827992.3.579.2 .593 1944 Unknown [id number] 2.16.840.1.683778.3.579.2 .727 1944 Unknown [id number] 2.16.840.1.417198.3.579.2 .727 1944 Unknown [id number] 2.16.840.1.755186.3.579.2 .727 1944 Unknown [id number] 2.16.840.1.025104.3.579.2 .1259 1944 Unknown [id number] 2.16.840.1.673732.3.579.2 .1259 1944 Unknown [id number] 2.16.840.1.007414.3.579.2 .1259 1944 Unknown [id number] 2.16.840.1.105847.3.579.2 .1259 1944 Unknown [id number] 2.16.840.1.519469.3.579.2 .196 1944 Unknown [id number] 2.16.840.1.795960.3.579.2 .196 1944 Unknown [id number] 2.16.840.1.890226.3.579.2 .196 Unknown [id number] Unknown [id number] 2.16840.1.279043.19 Unknown [id number] Conversion Insurance [id number] Unknown [id number] 2.16.840.1.613638.3.579.2 .531 Unknown [id number] 2..840.1.598028.3.579.2 .531 Social History Date Type Detail Facility Start: 05-21-2021 End: 09-16-2023 Tobacco smoking status NHIS Ex-smoker [facility] End: 07-20-1994 History of tobacco use Current smoker [facility] End: 07-20-1994 History of tobacco use Cigar Smoker [facility] Start: 05-21-2021 End: 10-16-2022 Tobacco use and exposure Smokeless tobacco non-user [facility] Start: 10-10-2021 End: 10-15-2023 Alcohol intake Ex-drinker (finding) [facility] Start: 05-21-2021 End: 10-16-2022 Tobacco Comment Quit 15+ years [facility] Start: 1945 Sex Assigned At Not on file [facility] Start: 08-25-2021 End: 09-24-2021 Exposure to SARS-CoV-2 (event) Not sure [facility] Start: 09-16-2022 Tobacco smoking status Never s moked tobacco (finding) [facility] Tobacco smoking status Former sm okeless tobacco user, quit more than 30 days ago [facility] Start: 10-15-2023 Sex Assigned At Male F [facility] Start: 10-15-2023 History of Social function [facility] Start: 1945 Sex Assigned At Male Y[facility] Medical Equipment Procedure Code Equipment Code Equipment Origin al Text Equipment Identifier Dates Mesh Parietene Polypropylene Macroporous [id number] Surgical Monofilament - [id number] Start: 09-24-2021 Blood Sugar Diag nostic [...] Date & Type Note Facility 05-04-2024 Note [facility] Cardiology Clinic Note Chief Complaint: Patient [...] common femoral artery. Surgeon: Jyoti Mccurdy Primary Permaculture Designer: None. Anesthesia: Local with 1% lidocaine and sedation. EBL: 10 cc Complications: None. 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 Procedure: Patient was brought to the angiogram suite. He was placed on the table in supine position. Left groin area was prepped and draped in the usual sterile fashion. Patient was give (more content not included)... [facility] 10-28-2023 Miscellaneous Notes Returned call and [...] Patient and or can be reached at [phone]. Thank you. Wendi Traore documented in this encounter [facility] 10-15-2023 Note HNO ID: [id number] Author: JAY GONZALEZ MD Service: ? Author Type: Physician Type: Progress Notes Filed: 10/15/2023 13:41 Note Text: [facility] - Follow Up [...] Gonzalez MD 10/15/23, 1:38 PM General Surgery [facility] Medical Decision Making: Problems: Low: Stable chronic illness Risk: Low: Low risk from testing/treatment Medical Decision Making Level: 3 - Low [facility] 08-10-2023 Evaluation note Encounter Date Diagnosis Assessment Notes Jul, Other Summary of Visit: (A) Meal timing (B) DM2 nutrition education (C) Answered general, nutrition-rela maru questions [facility] Other 11-28-2023 Evaluation note* Encounter Date Diagnosis Assessment Notes Treatment Notes Treatment Clinical Notes May, Type 2 diabetes mellitus with hyperglycemia, without long-term current use of insulin (ICD-10 - E11.65) [facility] Other 11-28-2023 Evaluation note* Encounter Date Diagnosis Assessment Notes Treatment Notes Treatment Clinical Notes May, Primary hypertension (ICD-10 - I10) [facility] Other 11-21-2023 Evaluation note* Encounter Date Diagnosis Assessment Notes Treatment Notes Treatment Clinical Notes May, Type 2 diabetes mellitus with hyperglycemia, without long-term current use of insulin (ICD-10 - E11.65) [facility] Other 11-17-2023 Evaluation note* Encounter Date Diagnosis [...] use, the patient reduces the risk for TN, CVA, HTN, cardiac dysrhythmias and sudden cardiac [...] index [BMI] 39.0-39.9, adult (ICD-10 - Z68.39) [facility] Other 11-08-2023 Evaluation note* Encounter Date Diagnosis Assessment Notes Treatment Notes Treatment Clinical Notes May, Primary hypertension (ICD-10 - I10) [facility] Other 10-29-2023 Evaluation note* Encounter Date Diagnosis Assessment Notes Treatment Notes Treatment Clinical Notes Apr, Type 2 diabetes mellitus with hyperglycemia, without long-term current use of insulin (ICD-10 - E11.65) Apr, Primary hypertension (ICD-10 - I10) [facility] Other 10-19-2023 Evaluation note* Encounter Date Diagnosis Assessment Notes Treatment Notes Treatment Clinical Notes Apr, Type 2 diabetes mellitus with hyperglycemia, without long-term current use of insulin (ICD-10 - E11.65) [facility] Other 10-18-2023 Evaluation note* Encounter Date Diagnosis Assessment Notes Treatment Notes Treatment Clinical Notes Apr, ASHD (arteriosclerotic heart disease) (ICD-10 - I25.10) This patient is stable without activity related CP, dyspnea or lightheadedness. They are instructed to continue exercise and AHA diet plan. Continue secondary prevention measures. Billboard Poster suggesting SGLT-2 for dual benefit w/ ASHD [...] contributed. 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 Inspect feet daily for cuts. Continue secondary prevention measures. Scheduled post op JAMIR [facility] Other 10-18-2023 Evaluation note* Encounter Date Diagnosis Assessment Notes Treatment Notes Treatment Clinical Notes Apr, Type 2 diabetes mellitus with hyperglycemia, without long-term current use of insulin (ICD-10 - E11.65) [facility] Other 08-22-2023 Evaluation note* Encounter Date Diagnosis [...] use, the patient reduces the risk for TN, CVA, HTN, cardiac dysrhythmias and sudden cardiac [...] [BMI ] 39.0-39.9, adult (ICD-10 - Z68.39) [facility] Other 05-31-2023 NoteOPERATIVE NOTE OPERATION DATE: 11/29/2022 PREOPERATIVE DIAGNOSIS: Personal history of colon polyps, status post subtotal colectomy with ileosigmoid anastomosis. POSTOPERATIVE DIAGNOSIS: Personal history of colon polyps, status post subtotal colectomy with ileosigmoid anastomosis. PROCEDURE: Colonoscopy to ileosigmoid anastomosis. SURGEON: Nya Brid M.D. ANESTHESIA: Monitored anesthesia care. ESTIMATED BLOOD [...] be in three years. CC: Juancarlos Cuenca D.O.[facility]05-12-2023 NotePROCEDURE: XR HIP LT 2 3V WO PELVIS HISTORY: Pain of left hip joint COMPARISON: None. FINDINGS: BONES:No fracture, acute abnormality, or significant arthropathy. SOFT TISSUES:No visible soft tissue swelling. EFFUSION:None visible. OTHER: Negative. IMPRESSION: 1. No acute bone abnormality. 2. Mild degenerative joint disease. Electronically authenticated by: GABY PADILLA Date: 2022-11-28 13:08[facility]04-11-2023 NoteCONSULTATION CONSULTATION DATE: 10/28/2022 TO: Juancarlos Cuenca [...] our patients to inform us about any lpgf-sed-bauqgdt medications or herbal remedies/nutritional supplements/alternative remedies. 2. [...] treatment options with their primary care provider.[facility] [id number] History of Present illness Narrative* Jay Gonazlez MD - 10/16/2022 2:[address] [facility] - Follow Up [...] Gonzalez MD 10/16/22, 2:45 PM General Surgery [facility] * Destiny Zapata MA - 10/16/2022 1:09 PM EDT What is the reason for your visit today? Follow up 1 year Who is your referring physician? Are you having poor oral intake? NO Have you had unintentional weight loss of 15 lbs/7 Kg in the last 3-6 months? NO Bowels: regular Wound: Temperature: No Drains: No documented in this encounterAs[facility]03-[facility] Miscellaneous Notes* Allied Health - [...] 11, 2022 10:29 AM documented in this encounterAs[facility]ula [facility]03-21-2023 Miscellaneous Notes* Telephone Encounter - [...] or so at a non facility. PH: [phone] documented in this encounterAshtabula [facility]02-24-2023 Evaluation note* Encounter Date Diagnosis Assessment Notes Treatment Notes Treatment Clinical Notes Aug, Left carotid artery stenosis (ICD-10 - I65.22) US: right <50%, left 50-69% - 10/2020 US: right <50%, left 80-90% - 08/2022 [facility] Other 02-20-2023 Evaluation note* Encounter Date Diagnosis [...] use, the patient reduces the risk for TN, CVA, HTN, cardiac dysrhythmias and sudden cardiac [...] reviewed and amended by provider signed below. 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 A refill for Baclofen 10 mg q.h.s. [...] knee osteoarthritis. The patient is in agreement.[facility] [id number] Note CONSULTATION CONSULTATION DATE: 03/25/2022 CHIEF COMPLAINT: 1. Low back pain. 2. Left knee pain. HISTORY OF PRESENT ILLNESS: This is a very pleasant, 76-year-old male, who is known to the pain practice remote. The patient had a right total knee replacement at [facility]. The patient is doing well with [...] patient understands and would like to proceed.[facility] 01-27-2022 Nurse Note* Sarah Osman MA - [...] Temperature: No Drains: No documented in this encounterAshtabula [facility]07-11-2022 History of Present illness Narrative* [...] needed. Jus Medina MD documented in this encounterAshtabula [facility]03-25-2022 Miscellaneous Notes* Telephone Encounter - Shan Parham - 10/11/2021 3:09 PM EDTSummary: IRB#: [id number] Research Outreach IRB# [id number], Qualitative Interviews in Postoperative Gastrointestinal Dysfunction (POGD). PI: Shilpa Storm MD, SANJIV, FASA. Outcomes Research Department. Anesthesia [place]. This is a research study note. Patient [...] there for his review. Shan Parham Research Permaculture Designer Anesthesiology [place] Outcomes Research Department documented in this encounterAshtabula [facility]03-24-2022 History of Present illness Narrative* Jay Gonzalez MD - 10/10/2021 1:[address] [facility] - Follow Up [...] the care that he received while at [place]. Objective: AAOx3, NAD Non-labored respirations on room [...] Gonzalez MD 10/10/21, 1:37 PM General Surgery [facility] documented in this encounterAshtabula County [facility] Center03-24-2022 History of Present illness Narrative* Jus Medina MD - 10/10/2021 11:00 AM EDT HPI Lizzy Yee is a 75 year old male here today for postop Open subtotal colectomy with stapled ofxd-zl-qafb ileosigmoid anastomosis ventral herniorrhaphy with transversus abdominus [...] months Jus Medina MD documented in this encounterAshtabula [facility] Center03-24-2022 Nurse Note* Elena Ferrell MA - 10/10/2021 10:45 AM EDT What is the reason for your visit today? Follow up Who is your referring physician? Self Are you having poor oral intake? NO Have you had unintentional weight loss of 15 lbs/7 Kg in the last 3-6 months? 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 documented as of this encounter (statuses as of 10/10/2021) [facility] History of Past illness Narrative* Problem Noted Date Resolved Date 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 documented as of this encounter (statuses as of 10/11/2021) [facility]03-[facility] History of Past illness Narrative* Problem Noted Date Resolved Date 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 documented as of this encounter (statuses as of 02/05/2022) [address]08-2022 History of Past illness Narrative* Problem Noted Date Resolved Date 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 documented as of this encounter (statuses as of 10/07/2022) [facility] of Past illness Narrative* Problem Noted Date Resolved Date 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 documented as of this encounter (statuses as of 10/12/2022) [facility] History of Past illness Narrative* Problem Noted Date Resolved Date 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 documented as of this encounter (statuses as of 10/12/2022) [address]08-2022 History of Past illness Narrative* Problem Noted Date Resolved Date 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 documented as of this encounter (statuses as of 10/16/2022) [address]08-2022 History of Past illness Narrative* Problem Noted Date Diagnosed Date Resolved Date 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 documented as of this encounter (statuses as of 10/28/2023) [facility]06-12-[facility] NoteMR#: [id number] [facility] Pt. Name: Lizzy Yee Admitted: 12/26/2020 Discharged: 12/29/2020 Date of : 1945 Physician: Ty Avalos M.D. DISCHARGE SUMMARY [facility] Pt. Name: Kurt Yee Admitted: [...] CONDITION AT DISCHARGE: Stable DISPOSITION: Home with [facility] DISCHARGE INSTRUCTIONS: Take medications as prescribed, [...] Cano MD Date Trans: 12/29/2020 08:18 P/ [id number] cc: Juancarlos Cuenca D.O. [address] [place] [id number] Community [facility] HospitalEvaluation + Plan note No data available for this section [facility]* Diagnosis Ventral incisional hernia- Primary documented in this encounter [facility]* Diagnosis Polyposis of colon- Primary Benign neoplasm of colon documented in this encounter [facility]* Diagnosis Polyposis of colon- Primary Benign neoplasm of colon Incisional hernia, without obstruction or gangrene Incisional hernia without mention of obstruction or gangrene documented in this encounter [facility] noteNo [facility] Other Evaluation note* Diagnosis Ventral incisional hernia documented in this encounter [facility] note* Diagnosis Ventral incisional hernia- Primary documented in this encounter [facility] note* Diagnosis Onset Date Resolution Status ASHD (arteriosclerotic heart disease) acute Elevated cholesterol acute NARINDER (generalized anxiety disorder) acute Obesity acute Obstructive sleep apnea acut e Primary hypertension acute [id number] acute [id number] acute ASHD (arteriosclerotic heart disease) acute Elevated cholesterol acute Obstructive sleep apnea acut e Primary hypertension acute Type 2 diabetes mellitus wit h diabetic peripheral angiopathy without gangrene acute 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 Type 2 diabetes mellitus with hyperglycemia acute [facility] Work Phone: Evaluation note* Diagnosis Onset Date Resolution Status ASHD (arteriosclerotic heart disease) acute Elevated cholesterol acute NARINDER (generalized anxiety disorder) acute Obesity acute Obstructive sleep apnea acut e Primary hypertension acute [id number] acute ASHD (arteriosclerotic heart disease) acute Elevated cholesterol acute Obstructive sleep apnea acut e Primary hypertension acute Type 2 diabetes mellitus wit h diabetic peripheral angiopathy without gangrene acute 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 Type 2 diabetes mellitus with hyperglycemia acute Primary osteoarthritis of left knee acute [facility] Work Phone: History general Narrative [...] HEMICOLECTOMY 2003 Hospitalization History SEE SURGICAL HX [facility] Other History general Narrative - Reported* Type [...] Colonoscopy 12/2022 Hospitalization History SEE SURGICAL HX [facility] Other Scopelectory general Narrative - Reported* Type Description Date [...] anaya 03/2023 Hospitalization History SEE SURGICAL HX [facility] Other Hospital Discharge instructions No data available for this section [facility] No data available for this section [facility] CenterReason for referral (narrative)* Reason 10/09/22 Referral for carotid artery stenosis Diagnosis 1 Left carotid artery stenosis (I65.22) Referral Organization [facility] nemo Referring Provider First Name Juancarlos Referring Provider Last Name Bang Referring Provider Specialty Internal Me dicine Referred Organization [facility] Referred Provider Jyoti Mccurdy Referred Address [address] [place], [place],[address] Referred Provider Specialty Vascular Ruslan kajal Referral Priority Routine Referral Appointment Date 2022-10-09 General Notes Mr. Hooper is being r eferred for carotid artery stenosis. He recently completed carotid artery US at [facility], which revealed 87% left carotid bulb stenosis. The ICA velocities are not elevated, which was suggested to be due to hemodynamically significant stenosis in the left bulb. Seema Jaquez 09/23/2022 01:11:23 PM >received today, attachments made, referral faxed Janae Fulton 09/29/2022 02:11:56 PM > Patient is scheduled on 10/09 at 10 a.m. at [facility] office Clinical Notes Mr. Hooper is being r eferred for further evaluation and treatment of left carotid artery stenosis. He has multiple risk factors, including HTN, HLD, DM and PAD. He has no history of TIA or CVA. He denies diplopia, loss of vision, dysarthria, facial droop or unilateral extremity weakness. 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 [place] [address] Ct Imaging Referral ID Status Reason Start Date Expiration Date Visits Requested Visits Authorized [id number] Pending Review Auto-Generat ed Referral 10/10/2022 11/09/2022 1 1 Referral ID Status Reason Start Date Expiration Date V isits Requested Visits Authorized [id number] Closed Auto-Generate d Referral 10/10/2022 11/09/2022 1 1 Specialty Diagnoses / Procedures Referred By Contac t Referred To Contact CT IMAGING Diagnoses Ventral incisional hernia Procedures CT ABD/PEL WO IVCON CT ABD & P[place] [address] [place] [address] Ct Imaging Referral ID Status Reason Start Date Expiration Date Visits Requested Visits Authorized [id number] Pending Review Auto-Generat ed Referral 10/16/2022 11/15/2023 1 1 Chief Complaint and Reason for Visit Chief Complaint WMN f/u DL 10-14 day DS 3 month follow up Reason for Visit ASHD (arteriosclerot ic heart disease) Elevated cholesterol NARINDER (generalized anxiety disorder) Obesity Obstructive sleep apnea Primary hypertension [id number] ASHD (arteriosclerotic heart disease) Elevated cholesterol Obstructive [...] disorder) Obesity Obstructive sleep apnea Primary hypertension [id number] ASHD (arteriosclerotic heart disease) Elevated cholesterol Obstructive [...] and content) DATE CREATED AUTHOR 03/11/2021 [facility] DATE CREATED AUTHOR AUTHOR'S ORGANIZ ATION 10/13/2022 [facility] DATE CREATED AUTHOR AUTHOR'S ORGANIZ ATION 12/29/2022 [facility] DATE CREATED AUTHOR AUTHOR'S ORGANIZ ATION 12/29/2022 [facility] DATE CREATED AUTHOR AUTHOR'S ORGANIZ ATION 10/29/2023 [facility] DATE CREATED AUTHOR AUTHOR'S ORGANIZ ATION 03/26/2024 [facility] [place] DATE CREATED AUTHOR AUTHOR'S ORGANIZ ATION 04/18/2024 [facility] DATE CREATED AUTHOR AUTHOR'S ORGANIZ ATION 04/23/2024 [facility] DATE CREATED AUTHOR AUTHOR'S EMANUEL GALINDO 05/06/2024 [facility] Source Comments (unrecognize d section and content) In the event this informatio n is protected by the Federal Confidentiality of Alcohol and Drug Abuse Patient Records regulations: The Federal rules restrict any use of the information to criminally investigate or prosecute any alcohol or drug abuse patient.[facility] CenterIn the event this information is protected by the Federal Confidentiality of Alcohol and Drug Abuse Patient Records regulations: The Federal rules restrict any use of the information to criminally investigate or prosecute any alcohol or drug abuse patient.[facility] CenterIn the event this information is protected by the Federal Confidentiality of Alcohol and Drug Abuse Patient Records regulations: The Federal rules restrict any use of the information to criminally investigate or prosecute any alcohol or drug abuse patient.[facility] CenterIn the event this information is protected by the Federal Confidentiality of Alcohol and Drug Abuse Patient Records regulations: The Federal rules restrict any use of the information to criminally investigate or prosecute any alcohol or drug abuse patient.[facility] CenterIn the event this information is protected by the Federal Confidentiality of Alcohol and Drug Abuse Patient Records regulations: The Federal rules restrict any use of the information to criminally investigate or prosecute any alcohol or drug abuse patient.[facility] CenterIn the event this information is protected by the Federal Confidentiality of Alcohol and Drug Abuse Patient Records regulations: The Federal rules restrict any use of the information to criminally investigate or prosecute any alcohol or drug abuse patient.[facility] CenterIn the event this information is protected by the Federal Confidentiality of Alcohol and Drug Abuse Patient Records regulations: The Federal rules restrict any use of the information to criminally investigate or prosecute any alcohol or drug abuse patient.[facility] CenterIn the event this information is protected by the Federal Confidentiality of Alcohol and Drug Abuse Patient Records regulations: The Federal rules restrict any use of the information to criminally investigate or prosecute any alcohol or drug abuse patient.[facility] CenterIn the event this information is protected by the Federal Confidentiality of Alcohol and Drug Abuse Patient Records regulations: The Federal rules restrict any use of the information to criminally investigate or prosecute any alcohol or drug abuse patient.[facility] Reason for Visit (unrecogniz ed [...] & PELVIS W/O CONTRAST Jay Gonzalez MD [address] [place] [address] Ct Imaging Referral ID Status Reason Start Date Expiration Date V isits Requested Visits Authorized [id number] Closed Auto-Generate d Referral 10/10/2022 11/09/2022 1 [...] February 24, 2024 Jory C Scally , 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 Provider Active Start: February 24, 2024 [...] April 21, 2024 End: April 21, 2024 Physician Chief Of Pathology Relationship Specialty Start Date End Date Juancarlos Cuenca DO PCP - General Internal Medicine 10/23/14 [facility] [address] [place] [phone] Cardiology 09/13/21 Physician Chief Of Pathology Relationship Specialty Start Date End Date Juancarlos Cuenca DO PCP - General Internal Medicine 10/23/14 Pedro Richardson [address] [place] [phone] Cardiology 09/13/21 Physician Chief Of Pathology Relationship Specialty Start Date End Date Juancarlos Cuenca DO PCP - General Internal Medicine 10/23/14 [facility] [address] [facility] [place] [phone] Cardiology 09/13/21 Physician Chief Of Pathology Relationship Specialty Start Date End Date Juancarlos Cuenca DO PCP - General Internal Medicine 10/23/14 Pedro Richardson MD Cardiology 09/13/21 Physician Chief Of Pathology Relationship Specialty Start Date End Date Juancarlos Cuenca DO PCP - General Internal Medicine 10/23/14 Pedro Richardson MD Cardiology 09/13/21 Physician Chief Of Pathology Relationship Specialty Start Date End Date Juancarlos Cuenca DO PCP - General Internal Medicine 10/23/14 Pedro Richardson MD Cardiology 09/13/21 Physician Chief Of Pathology Relationship Specialty Start Date End Date Juancarlos Cuenca DO PCP - General Internal Medicine 10/23/14 Pedro Richardson MD Cardiology 09/13/21 Physician Chief Of Pathology Relationship Specialty Start Date End Date Juancarlos Cuenca DO PCP - General Internal Medicine 10/23/14 Pedro Richardson MD Cardiology 09/13/21 Physician Chief Of Pathology Relationship Specialty Start Date End Date Juancarlos [...] BE BASED ON THE PRIMARY CLINICAL RECORDS. [facility]. provides no warranty or guarantee of the accuracy or completeness of information in this document.
--- NOTE | 2024-05-12 11:10 | P.CN_ITS ---
Consult Note: HPI Data of Consult Patient: known to practice within the last 3 years Consult date: 07/27/23 Requesting Physician: Teri Fisher NP Primary Care Provider: Juancarlos Gan DO Consult Narrative Reason for consult: low back pain Narrative: 77yom who presents for management of chronic low back and left knee pain. Today pain 6/10 in low back, increases to 8/10 with activity and walking. Patient denies numbness, tingling, weakness of BLE. Prior bilateral L4-5 L5-S1 facet RFA provided >50% improvement in pain greater than 6 months. Patient finds benefit to PRN baclofen, tylenol, and tramadol. recently we repeated bilateral L4-5 L5- S1 facet RFA to which pt reported significant relief for 3 weeks and no ongoing relief. continues to engage in HEP 2x/week greater than 6 weeks without benefit. cc:: CC: Teri Fisher NP Review of Systems ROS Status of ROS 10 or more systems reviewed and unremark able except as noted in history and below Musculoskeletal Reports: back pain PFSH PFSH Medical History (Updated 05/12/24 @ 11:13 by Teri Fisher NP) Diabetes ?E11.9 - Type 2 diabetes mellitus without complications (ICD-10) History of shingles ?Z86.19 - Personal history of other infectious and parasitic diseases (ICD- 10) Osteoarthritis ?M19.90 - Unspecified osteoarthritis, unspecified site (ICD-10) Hiatal hernia ?K44.9 - Diaphragmatic hernia without obstruction or gangrene (ICD-10) Acid reflux ?K21.9 - Gastro-esophageal reflux disease without esophagitis (ICD-10) Carpal tunnel syndrome ?G56.00 - Carpal tunnel syndrome, unspecified upper limb (ICD-10) Hearing deficit ?H91.90 - Unspecified hearing loss, unspecified ear (ICD-10) High cholesterol ?E78.00 - Pure hypercholesterolemia, unspecified (ICD-10) Heart murmur ?R01.1 - Cardiac murmur, unspecified (ICD-10) Surgical History Hx of hernia repair ?Z98.890 - Other specified postprocedural states (ICD-10) ?Z87.19 - Personal history of other diseases of the digestive system (ICD-10) H/O total hip arthroplasty ?Z96.649 - Presence of unspecified artificial hip joint (ICD-10) H/O ventral hernia repair ?Z98.890 - Other specified postprocedural states (ICD-10) ?Z87.19 - Personal history of other diseases of the digestive system (ICD-10) Stented coronary artery ?Z95.5 - Presence of coronary angioplasty implant and graft (ICD-10) History of atherectomy ?Z98.890 - Other specified postprocedural states (ICD-10) H/O hemicolectomy ?Z90.49 - Acquired absence of other specified parts of digestive tract (ICD- 10) H/O cystoscopy ?Z98.890 - Other specified postprocedural states (ICD-10) S/P CABG x 4 ?Z95.1 - Presence of aortocoronary bypass graft (ICD-10) Meds Home Medications and Allergies Home Medications ?Medication ?Instructions ?Recorded ?Confirmed ?Type aspirin 81 mg tablet,delayed 81 mg PO DAILY 12/26/22 04/11/24 History release (Adult Aspirin Regimen) atorvastatin 80 mg tablet 80 mg PO DAILY 12/26/22 04/11/24 History calcium 500 mg (as 1 tab PO DAILY 12/26/22 04/11/24 History carbonate)-vitamin D3 10 mcg (400 unit) tablet carvedilol 25 mg tablet 12.5 mg PO Q12H 12/26/22 04/11/24 History cinnamon bark 500 mg capsule 1,000 mg PO DAILY 12/26/22 04/11/24 History (Cinnamon) clopidogrel 75 mg tablet 75 mg PO DAILY 12/26/22 04/11/24 History glipizide 5 mg tablet 10 mg PO BID 12/26/22 04/11/24 History hydrochlorothiazide 25 mg tablet 25 mg PO DAILY 12/26/22 04/11/24 History lisinopril 20 mg tablet 30 mg PO DAILY 12/26/22 04/11/24 History multivitamin 1 tab PO DAILY 12/26/22 04/11/24 History omega-3 fatty acids 1,000 mg 1,000 mg PO DAILY 12/26/22 04/11/24 History capsule pantoprazole 40 mg tablet,delayed 40 mg PO QAM 12/26/22 04/11/24 History release vitamin B complex 1 tab PO DAILY 12/26/22 04/11/24 History zinc acetate 50 mg (zinc) capsule 50 mg PO DAILY 12/26/22 04/11/24 History ondansetron 4 mg disintegrating 4 mg PO Q8H PRN nausea and 05/03/23 04/11/24 Rx tablet vomiting 4 days #10 tabs amlodipine 5 mg tablet 5 mg PO QDAY 06/05/23 04/11/24 History hyoscyamine sulfate 0.125 mg 0.125 mg PO Q6H PRN abdominal pain 06/05/23 04/11/24 Rx tablet (Levsin) #12 tabs baclofen 10 mg tablet 10 mg PO BEDTIME PRN muscle spasm 08/03/23 04/11/24 History tramadol 50 mg tablet 50 mg PO DAILY PRN pain #7 tabs 09/02/23 04/11/24 Rx Allergies Allergy/AdvReac Type Severity Reaction Status Date / Time No Known Drug Allergies Allergy Verified 04/11/24 08:55 Exam Constitutional Documenting provider has reviewed patient's vital signs: yes Common normals: no apparent distress, oriented x3, healthy appearing, alert and well nourished General appearance: cooperative HENMT Common normals: normocephalic, hearing grossly normal bilaterally and moist oral mucous membranes Head and scalp: normocephalic Eye Common normals: PERRL Pupil: PERRL Neck & C-Spine Common normals: full ROM General: normal visual inspection Chest Common normals: inspection of chest normal Respiratory Common normals: normal respiratory effort, no retractions and no use of accessory muscles Back & Pelvis Lumbar spine/lower back: ROM limited, pain with ROM and straight leg raise negative bilaterally Other: bilateral facet loading positive strength 5/5 in BLE sensation intact BLE increased pain with standing/walking improved with sitting and forward flexion Extremity Common normals: normal to inspection and full ROM Neuro Common normals: oriented x3, CN's II-XII intact bilaterally, moves all extremities, no focal motor deficits, no sensory deficits noted and deep tendon reflexes 2+ bilaterally Sensorium/orientation: alert Motor exam: strength 5/5 throughout and no movement abnormalities noted Psych Common normals: mental status grossly normal, thought process normal, cooperative, affect normal, speech normal and activity/motor behavior normal Speech: normal speech Thought process: normal thought process Results Additional Findings Additional findings: If on a controlled substance or opioids, I have checked an [place] report on this patient and there are no aberrancies noted in the prescribing history.??If on a controlled substance or opioid a drug screen was completed and reviewed within the last year, and if there has not been a drug screen completed we ordered one today to monitor higher risk, state monitored pain medication use. As part of providing excellent, safe, comprehensive care, the following was completed at our patient's visit: 1. A medication reconciliation and review to ensure accurate knowledge of current/active medications, including asking our patients to inform us about any [id number] medications or herbal remedies/nutritional supplements/alternative remedies. 2. A review to specifically ensure our patients have had annual screening for screening for depression, screening for tobacco use, and screening for unhealthy alcohol use. For concerning screenings had a discussion with the patient, provided patient education, and recommended follow-up with primary care provider when appropriate. If patient noted with a risk of falling, they received education on strength, gait, and balance training to prevent future risk of falling. Assessment and Plan Assessment and Plan (1) Lumbar spondylosis: (2) Lumbar stenosis with neurogenic claudication: (3) Myofascial pain: Plan update lumbar MRI without contrast to assess chronic low back pain and lumbar stenosis with NC continue current medications f/u to review MRI, can consider TFESIs
== END 2024-05-12 10:45 | disposition home or self-care (01) ==
LOC: PM 10:44
PROVIDERS: PCP Internal Medicine; Visit Provider Nurse Practitioner
DX: M47.816 Spondylosis without myelopathy or radiculopathy, lumbar region (principal); M48.062 Spinal stenosis, lumbar region with neurogenic claudication; M79.18 Myalgia, other site
CPT/HCPCS: G0463

== ENCOUNTER 2024-05-19 14:36 | Outpatient (OUT) | payer MEDICARE, SELFPAY ==
--- NOTE | 2024-05-19 14:40 | MR_ITS ---
[address] [address] Patient Name: LIZZY BURK MRN: [id number] date: 1945 Sex: M Assigned Patient Location: MRI Current Patient Location: Accession/Order Number: [id number] Exam Date: 05/19/2024 15:00 Report Date: 05/20/2024 07:25 At the request of: PERRI DEL ANGEL Procedure: MR lumbar spine wo con EXAMINATION: MR lumbar spine wo con HISTORY: Lumbar Stenosis With Neurogenic Claudication COMPARISON: No relevant comparison available. TECHNIQUE: A variety of imaging planes and parameters were utilized for visualization of suspected pathology. FINDINGS: For the purposes of numbering, sagittal T2 image # 8 extends from the T10 vertebral body superiorly to the S3 level inferiorly. PARASPINAL AREA: Normal with no visible mass. BONES: Normal alignment with no acute fracture or spondylolisthesis. No bone edema. CORD/CAUDA EQUINA: Normal caliber, contour, and signal intensity. DISC LEVELS: 12-L1: Moderate degenerative disc disease is present without visible neural impingement. L1-L2: Moderate disc space narrowing and disc desiccation. Moderate diffuse disc/osteophyte complex and ligamentum flavum hypertrophy and facet osteoarthropathy. No central canal stenosis. No right foraminal stenosis. Mild left foraminal stenosis L2-L3: Severe disc space narrowing with endplate sclerosis. Moderate diffuse disc/osteophyte complex. Ligament hypertrophy and facet osteoarthritis. Severe narrowing of the central canal, axial image #18. No right, moderate left foraminal stenosis L3-L4: Moderate disc space narrowing and disc desiccation. Moderate diffuse disc/osteophyte complex. Severe ligamentum flavum hypertrophy and facet osteophytes arthropathy. Severe central canal stenosis. Mild to moderate bilateral foraminal stenosis L4-L5: Severe disc space narrowing with endplate sclerosis. Moderate ligamentum flavum hypertrophy and facet osteoarthropathy. Moderate to severe central canal stenosis. Moderate bilateral foraminal stenosis L5-S1: Severe disc space narrowing with endplate sclerosis. Moderate diffuse disc/osteophyte complex. Ligament flavum hypertrophy and facet osteoarthropathy. No central canal stenosis. Moderate to severe bilateral foraminal stenosis MR/MR lumbar spine wo con IMPRESSION: Moderate to severe degenerative changes with extensive central and foraminal stenosis detailed above Electronically authenticated by: LANA DAVISON Date: 05/20/2024 07:25
--- OUTSIDE RECORDS SUMMARY | 2024-05-19 14:51 | XMS_ITS | CCD ---
Author Organization [facility] Care Team Providers Care Golf Caddie Name Role Phone JUANCARLOS CUENCA Referring Unavailable JUANCARLOS CUENCA Primary Care Unavailable Delonte Webb Admitting Unavailable Delonte Webb Attending Unavailable JUANCARLOS CUENCA Referring Unavailable TY AVALOS Surgeon Unavailable TY AVALOS Admitting Unavailable JUANCARLOS CUENCA Primary Care Unavailable TY AVALOS Attending Unavailable [place] Procedure Practitioner Unavailab Juancarlos Delatorre DO Primary Care Provider Pedro Richardsonmed Unavailable Dylan VANESSA, ab Ahmed Unavailable JUANCARLOS CUENCA Primary Care Physician Juancarlos Cuenca Unavailable Juancarlos Cuenca DO Primary Care Provider Dylan VANESSA, Ahmed Unavailable [phone] JAY GONZALEZ Referring Unavailable JUANCARLOS CUENCA Primary Care Unavailable AJY GONZALEZ Referring Unavailable JUANCARLOS CUENCA Primary Care [...] Unavailable BALL, DR VEGA Primary Care Unavailable LMAAS ., DR EVAN [employer] Unavailable LAKSHMIPATHY [...] Unavailable DO Juancarlos Cuenca Primary Care Provider [phone] MD Ej Anthony II Attending Provider PEDRO RICHARDSON Attending Unavailable Allergies Allergy Classification Reported Allergen(s) Allergy Type Date of Onset Reaction(s) Facility (20 sources) Morphine; Translations: [morphine] Drug Allergy Unknown [facility] Repository (1 source) Morphine Drug Allergy 12-08-2023 [facility] Repository Medications Current Medications Medication Drug Class(es) [...] CPAP (9 sources) CPAP daily at be dtiwy. 0 Active Comment on above: daily at [...] 2023 10:53am take 1 capsule by mo [facility] every twenty-four hours Gabapentin 100 MG 1 [...] 04, 2023 10:54am [facility] hours Meclizine HCl 25 MG [...] 04, 2023 10:55am take 1 tablet by [facility] every twenty-four hours Ondansetron 4 MG [...] Comment on above: TAKE 1 TABLET BY [facility] EVERYDAY AT BEDTIME tamsulosin hydrochloride 0.4 mg oral capsule (6 sources) alpha-Adrenergic Ciera Start: 2 End: 2 take 1 capsule by mouth once daily tamsulosin (FLOMAX) 0.4 mg Take 1 capsule by mouth once daily. 30 capsule 0 10/01/2021 Active Comment on above: Take 1 capsule by mo [facility] once daily. 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] 09-13-2021 Episodic [...] and visceral atherosclerosis (17 sources) Atherosclerosis of [place] arteries of extremities with rest pain, right leg; Translations: [Atherosclerosis of [place] artery of right lower extremity with rest [...] without hemorrhage] Other aftercare (3 sources) 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; Translations: [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 THERAPY] Onset: 09-17-2022 Episodic Other and unspecified benign neoplasm (12 sources) Polyp of colon; Translations: [Polyp of colon] Onset: 06-07-2021 06-07-2021 Episodic Unclassified (1 source) LOW BACK PAIN, UNSPECIFIED; Translations: [LOW BACK PAIN, UNSPECIFIED] Onset: 04-24-2022 Results Test Name Value Interpretation Reference Range Facility 36on 05-13-2024 36 Patients Daughter called back and confirms he has NOT been taking the Atorvastatin and has not had a prescription, advised the daughter we would send in a new prescription and recheck his cholesterol in 3 month, Lab order mailed to patient to complete june/ july [facility] 36on 05-12-2024 36 Patient calling for echo and lab results. 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 Please advise. Thanks. [facility] Office Visiton 05-04-2024 Follow-up visit [id number] Vu Yee Jorge 1945 M Date Provider Department Center 05/04/2024 Flores-PEDRO RICHARDSON Family History Problem Relation Age of Onset Coronary artery disease Mother Coronary artery disease Brother Family Status - Relation Status Age at Mother Brother Level of Service:[address]00 [place] OFFICE/OUTPATIENT ESTABLISHED MOD MDM 30 MIN [facility] XR knee LT 4V*on 04-21-2024 XR knee LT 4V* [facility] [address] [place] [address] XRay Report Signed Patient: Lizzy Yee MR#: [id number] : 1945 Acct:[id number] Age/Sex: 78 / M ADM Date: 04/21/24 Loc: [facility] Room: Type: [facility] Attending Dr: Ej Anthony II, MD Copies to: Ej Anthoyn MD Ordering Provider: Ej Anthony MD Date of Service: 04/21/24 XR/XR pelvis 1-2V: M25.562 - Pain in left knee ([id number]) XR/XR knee LT 4V*: M25.562 - Pain [...] PROCESS. Impression dictated by: Jus Jimenez Jr., D.O.04/21/2024 2:51 PM Dictation Location: [place] [address] Transcribed By: [facility] 04/21/24 1451 Dictated By: Jus Jimenez Jr, DO 04/21/24 1449 Signed By: 04/21/24 1451 Normal [facility] Keyshawn 10-27-2023 ANISHA Telephone ([facility]) LIZZY YEE ([id number]) 1945 M Date Time Provider Department 10/27/23 JAY GONZALEZChava During your visit today, we recorded the [...] Patient and or can be reached at [phone]. Thank you. Efrain Loza, NILAM 10/28/2023 8:30 AM Signed Returned call and [...] mouth twice daily with meals. - pantoprazole (PROTONIX) 40 mg tablet Take 40 mg [...] Encounter Status:Closed by EFRAIN ZAMARRIPA on 10/28/23 [facility] Babs 10-15-2023 [facility] Office Visit ([facility] ) LIZZY YEE ([id number]) 1945 M Date Time Provider Department 10/15/23 1:00 PM JAY GONZALEZ [facility] During your visit today, we recorded the following information about you: Temperature Pulse Blood pressure 97.3 degrees 53/minute 127/65 Jay Gonzalez MD 10/15/2023 1:41 PM Signed [facility] - Follow Up Visit [...] Gonzalez MD 10/15/23, 1:38 PM General Surgery [facility] Medical Decision Making: Problems: Low: Stable [...] HLD (hyperlipidemi (more content not included)... Normal [facility] Cholesterol in LDL Calc [Mas s/Vol]on 10-09-2023 Cholesterol in LDL [Mass/Vol] 46.6 mg/dL [facility] Comment on above: <100 mg/dl [id number] 0-129 mg/dl NEAR OR ABOVE [id number] mg/dl BORDERLINE [id number] mg/dl HIGH>190 mg/dl VERY HIGH Cholesterol in VLDL Calc [Ma ss/Vol]on 10-09-2023 Cholesterol in VLDL [Mass/Vol] 14.4 mg/dL [facility] Estimated glomerular filtrat ion rate (GFR) non- Americanon 10-09-2023 GFR/1.73 sq M.predicted among non-blacks MDRD (S/P/Bld) [Vol rate/Area] 54 mL/min/{1.73_m2} >=60 [facility] Globulin Calc (S) [Mass/Vol] on 10-09-2023 Globulin (S) [Mass/Vol] 3.9 g/dL [facility] Glucose mean value [Mass/vol ume] in Blood Estimated from glycated hemoglobinon 10-09-2023 Average glucose Estimated from glycated hemoglobin (Bld) [Mass/Vol] 186 mg/dL [facility] Laboratory - Chemistry and C hemistry - challengeon 10-09-2023 Albumin [Mass/Vol] 3.4 g/dL 3.4-5.0 [facility] ALP [Catalytic activity/Vol] 210 U/L 46-116 [facility] ALT [Catalytic activity/Vol] 236 U/L 16-63 [facility] AST [Catalytic activity/Vol] 169 U/L 15-37 [facility] Bilirubin [Mass/Vol] 0.8 mg/dL 0.2-1.0 [facility] Calcium [Mass/Vol] 9.1 mg/dL 8.5-10.1 [facility] Chloride [Moles/Vol] 101 mmol/L 98-107 [facility] Cholesterol [Mass/Vol] 107 mg/dL <=200 [facility] Cholesterol in HDL [Mass/Vol] 46 mg/dL 40-60 [facility] Comment on above: > or =60 mg/dl - LOW CARDIOVASCULAR RISK<40 mg/dl - HIGH CARDIOVASCULAR RISK CO2 [Moles/Vol] 28.4 mmol/L 21.0-32.0 [facility] Creatinine [Mass/Vol] 1.29 mg/dL 0.70-1.30 [facility] GFR/1.73 sq M.predicted MDRD (S/P/Bld) [Vol rate/Area] mL/min/{1.73_m2} >=60 [facility] Glucose [Mass/Vol] 100 mg/dL 74-106 [facility] Potassium [Moles/Vol] 4.1 mmol/L 3.5-5.1 [facility] Protein [Mass/Vol] 7.3 g/dL 6.4-8.2 [facility] Sodium [Moles/Vol] 140 mmol/L 136-145 [facility] Triglyceride [Mass/Vol] 72 mg/dL <=150 [facility] Urea nitrogen [Mass/Vol] 23.0 mg/dL 7.0-18.0 [facility] Urea nitrogen/Creatinine [Mass ratio] 17.8 mg/mg [facility] Laboratory - Hematology and Cell countson 10-09-2023 HbA1c (Bld) [Mass fraction] 8.1 % 4.5-6.2 [facility] Comment on above: ADA RECOMMENDED LIMI T 4.0 - 6.0ADA THERAPEUTIC TARGET < 7.0ACTION SUGGESTED> 7.0 Microalbumin [Mass/volume] i n Urineon 10-09-2023 Albumin DL <= 20 mg/L (U) [Mass/Vol] mg/dL <=30.0 [facility] No Panel Informationon 10-08 Prostate Specific Antigen Screen 0.27 ng/mL <=4.00 [facility] Serum or plasma albumin/glob ulin mass ratioon 10-09-2023 Albumin/Globulin [Mass ratio] 0.9 {ratio} [facility] Serum or plasma anion gap de terminationon 10-09-2023 Anion gap [Moles/Vol] 14.7 mmol/L Fi [facility] Serum or plasma total choles terol/high density lipoprotein (HDL) cholesterol mass venu 10-09-2023 Cholesterol.total/Cho lesterol in HDL [Mass ratio] 2.3 {ratio} [facility] Comment on above: 3.3 - 4.4 LOW RISK4. 4 - 7.1 AVERAGE RISK7.1 - 11.0 MODERATE RISK>11.0 HIGH RISK Outside Colonoscopyon 2022 Outside Colonoscopy [id number] 0CD:127 Normal [facility] Reminderson 12-18-2022 Reminders - From: Amy Menon LPN To: GSN - Clinical; Sent: 12/18/2022 12:06:16 EDT Show up: 11/16/2025 07:00:00 EDT Subject: colonoscopy recall Due Date/Time: 12/17/2025 07:00:00 EDT Reminder/Recall Patient due for surveillance colonoscopy 12/17/2025. Normal [facility] POINT OF CARE GLUCOSEon 11-19 Glucose [Mass/Vol] 176 mg/dL Critically high 74-106 [facility] Comment on above: Performed By: #### P OCGLUC #### [facility] [address] [place] [address] [address] Rojelio Kingsley POINT OF CARE GLUCOSEon 11-19 Glucose [Mass/Vol] 157 mg/dL Critically high 74-106 [facility] Comment on above: Performed By: #### P OCGLUC #### [facility] [address] [place] [address] [address] Rojelio Kingsley Consent for Procedure/Surger yon 12-03-2022 Consent for Procedure/Surgery [id number] 0CD:127 Normal [facility] Physician Referralon 023 Physician Referral [id number] 0CD:127 Normal [facility] General Surgery Office/Clini c Noteon [...] 1 tab(s), (more content not included)... Normal [facility] Comment on above: Result Comment: Elec tronically Signed By: PELON VANESSA, Nya Patel\.marion\Date and Time Signed: 12/02/22 11:37 EDT POINT OF CARE GLUCOSEon - Glucose [Mass/Vol] 121 mg/dL Critically high 74-106 [facility] Comment on above: Performed By: #### P OCGLUC #### [facility] [address] [place] [address] [address] Rojel[facility] Kingsley [facility] HNO ID: [id number] Author: Glenda Romo RT(R) Service: Radiology Author [...] Romo, RT(R) October 11, 2022 10:29 AM [facility] CT ABD/PEL WO IVCONon 2022 CT [...] site. Lower thorax: Lower lungs are clear. Vice President Investor Relations (topogram) images: Unremarkable. IMPRESSION: Midline fat-containing upper abdominal hernia. Treasury Associate: DANIEL Transcribe Date/Time: Oct 13 2022 7:57A Dictated by : YANICK RIVAS MD This examination was interpreted and the report reviewed and electronically signed by: YANICK RIVAS MD on Oct 13 2022 8:06AM EST [id number] Normal [facility] Consent for Procedure/Surger yon 09-17-2022 Consent for Procedure/Surgery [id number] 0CD:127 Normal [facility] RAD - Ultrasound Reporton RAD - Ultrasound Report [id number] 0CD:127 Normal [facility] Ambulatory Visit Summaryon 0 09-16-2022 [...] no longer receiving treatment for. Hyperlipidemia Rajani [facility] Ambulatory Visit Summary LIZZY YEE [...] no longer receiving treatment for. Hyperlipidemia Normal [facility] General Surgery Office/Clini c Noteon [...] Oral, Nathalie (more content not included)... Normal [facility] Comment on above: Result Comment: Elec tronically Signed By: PELON VANESSA, Nya Nicholson\Date and Time Signed: 09/16/22 11:17 EST Alanine Aminotransferaseon 0 - ALT [Catalytic activity/Vol] 30 U/L Normal 16-63 [employer] Other Comment on above: Performed By: #### B MP, ALT, LIPID #### [facility] [address] [place] [address] [address] Rojelio Kingsley Basic Metabolic Panelon 08-21 Calcium [Mass/Vol] 9.6381878 mg/dL 8.5-10 .1 mg/dL [facility] Other CO2 [Moles/Vol] 25.76405533 mmol/L 21.0-3 2.0 mmol/L [facility] Other Creatinine [Mass/Vol] 1.12585268 mg/dL Critically high 0.70-1.30 mg/dL [facility] Other Potassium [Moles/Vol] 4.21007213 mmol/L 3 .5-5.1 mmol/L [facility] Other Urea nitrogen [Mass/Vol] 16.9133056 mg/dL 7.0-18.0 mg/dL [facility] Other Basic Metabolic Panel see note [employer] Other Basic Metabolic Panel 141 mmol/L 136-14 5 mmol/L [facility] Other Basic Metabolic Panel 134 mg/dL Critically high 74-106 mg /dL [facility] Other Basic Metabolic Panel 51 mL/min/1.73m2 Critically low >=60 mL/min/1.73m 2 [facility] Other Basic Metabolic Panel >60 mL/min/1.73m2 > =60 mL/min/1.73m 2 [facility] Other Anion gap [Moles/Vol] 15.2 mmol/L [facility] Other Comment on above: Performed By: #### B MP, ALT, LIPID #### [facility] [address] [place] [address] Dr. Rojelio Kingsley Chloride [Moles/Vol] 105 mmol/L Normal 98-107 [facility] [employer] Other Comment on above: Performed By: #### B MP, ALT, LIPID #### [facility] [address] [place] [address] Dr. Rojelio Kingsley Urea nitrogen/Creatinine [Mass ratio] 11.8 mg/mg Normal [facility] [employer] Other Comment on above: Performed By: #### B MP, ALT, LIPID #### [facility] [address] [place] [address] Dr. Rojelio Kingsley CBC AUTO DIFFon 09-12-2022 BASO # 0.0 103/ul Normal 0.0-0.1 [facility] Comment on above: Performed By: #### C BC #### [facility] [address] [place] [address] Dr. Rojelio Kingsley Basophils/100 WBC (Bld) 0.4 % Normal 0.2-2.0 [facility] Comment on above: Performed By: #### C BC #### [facility] [address] [place] [address] Dr. Rojelio Kingsley EO # 0.3 103/ul Normal 0.0-0.7 [facility] Comment on above: Performed By: #### C BC #### [facility] [address] [place] [address] Dr. Rojelio Kingsley Eosinophils/100 WBC (Bld) 3.6 % Normal 0.9-7.0 [facility] Comment on above: Performed By: #### C BC #### [facility] [address] [place] [address] Dr. Rojelio Kingsley Erythrocyte distribution width (RBC) [Ratio] 14.1 % Normal 11.0-15.0 [facility] Comment on above: Performed By: #### C BC #### [facility] [address] [place] [address] Dr. Rojelio Kingsley Hematocrit (Bld) [Volume fraction] 40.1 % Critically low 42.0-54.0 [facility] Comment on above: Performed By: #### C BC #### [facility] [address] [place] [address] Dr. Rojelio Kingsley Hemoglobin (Bld) [Mass/Vol] 13.4 g/dL Critically low 14.0-18.0 [facility] Comment on above: Performed By: #### C BC #### [facility] [address] [place] [address] Dr. Rojelio Kingsley IG # 0.02 10e3/ul Normal 0.00-0.03 [facility] Comment on above: Performed By: #### C BC #### [facility] [address] [place] [address] Dr. Rojelio Kingsley IG % 0.2 % Normal 0.0-0.5 [facility] Comment on above: Performed By: #### C BC #### [facility] [address] [place] [address] Dr. Rojelio Kingsley LYMPH # 1.8 103/ul Normal 1.2-3.8 [facility] Comment on above: Performed By: #### C BC #### [facility] [address] [place] [address] Dr. Rojelio Kingsley Lymphocytes/100 WBC (Bld) 21.9 % Normal 20.5-60.0 [facility] Comment on above: Performed By: #### C BC #### [facility] [address] [place] [address] Dr. Rojelio Kingsley MANUAL DIFF REQ NO Normal [facility] Comment on above: Performed By: #### C BC #### [facility] [address] [place] [address] Dr. Rojelio Kingsley MCH (RBC) [Entitic mass] 30.6 pg Normal 25.9-34.0 [facility] Comment on above: Performed By: #### C BC #### [facility] [address] [place] [address] [address] Rojelio Kingsley MCHC (RBC) [Mass/Vol] 33.4 g/dL Normal 29.9-35.2 [facility] Comment on above: Performed By: #### C BC #### [facility] [address] [place] [address] Dr. Rojelio Kingsley MCV (RBC) [Entitic vol] 91.6 fL Normal 80.0-94.0 [facility] Comment on above: Performed By: #### C BC #### [facility] [address] [place] [address] Dr. Rojelio Kingsley MONO # 0.8 103/ul Normal 0.3-0.8 [facility] Comment on above: Performed By: #### C BC #### [facility] [address] [place] [address] Dr. Rojelio Kingsley Monocytes/100 WBC (Bld) 9.3 % Normal 1.7-12.0 [facility] Comment on above: Performed By: #### C BC #### [facility] [address] [place] [address] Dr. Rojelio Kingsley NEUT # 5.4 103/ul Normal 1.4-6.5 [facility] Comment on above: Performed By: #### C BC #### [facility] [address] [place] [address] Dr. Rojelio Kingsley Neutrophils/100 WBC (Bld) 64.6 % Normal 43.0-75.0 [facility] Comment on above: Performed By: #### C BC #### [facility] [address] [place] [address] Dr. Rojelio Kingsley Platelet mean volume (Bld) [Entitic vol] 10.3 fL Normal 9.5-13.5 [facility] Comment on above: Performed By: #### C BC #### [facility] [address] [place] [address] Dr. Rojelio Kingsley PLT 214 103/ul Normal 150-450 [facility] Comment on above: Performed By: #### C BC #### [facility] [address] [address] [address] Rojelio Kingsley RBC 4.38 106/ul Critically low 4.70-6.10 [facility] Comment on above: Performed By: #### C BC #### [facility] [address] [address] [address] Rojelio Kingsley WBC 8.4 103/ul Normal 4.0-11.0 [facility] Comment on above: Performed By: #### C BC #### [facility] [address] [place] [address] [address] Rojelio Kingsley GLYCOHEMOGLOBIN A1Con 2022 ADA RECOMMENDATION SEE BELOW Normal [facility] Comment on above: Result Comment: ADA RECOMMENDED LIMIT 4.0 - 6.0 ADA THERAPEUTIC TARGET < 7.0 ACTION SUGGESTED > 7.0 Performed By: #### P OCGLUC #### [facility] [address] [place] [address] Dr. Rojelio Kingslye Glucose [Mass/Vol] 169 mg/dL Normal [facility] Comment on above: Performed By: #### P OCGLUC #### [facility] [address] [address] [address] Rojelio Kingsley HbA1c (Bld) [Mass fraction] 7.5 % Critically high 4.5-6.2 [facility] Comment on above: Performed By: #### P OCGLUC #### [facility] [address] [place] [address] Dr. Rojelio Kingsley LIPID PROFILEon 09-12-2022 CHOL-HDL RATIO NORM SEE BELOW Normal [facility] Comment on above: Result Comment: 3.3 - 4.4 LOW RISK 4.4 - 7.1 AVERAGE RISK 7.1 - 11.0 MODERATE RISK >11.0 HIGH RISK Performed By: #### B MP, ALT, LIPID #### [facility] [address] [place] [address] Dr. Rojelio Kingsley Cholesterol in LDL [Mass/Vol] 31.2 mg/dL Normal [facility] Comment on above: Performed By: #### B MP, ALT, LIPID #### [facility] [address] [place], [place] [address] Dr. Rojelio Kingsley HDL NORMAL > or = 60 mg/dl - LO W CARDIOVASCULAR RISK <40 mg/dl - HIGH CARDIOVASCULAR RISK Normal [facility] Comment on above: Performed By: #### B MP, ALT, LIPID #### [facility] [address] [place], [place] [address] Dr. Rojelio Kingsley LDL CALC NORMAL SEE BELOW Normal [facility] Comment on above: Result Comment: <100 mg/dl OPTIMAL 100 - 129 mg/dl NEAR OR ABOVE OPTIMAL 130 - 159 mg/dl BORDERLINE HIGH 160 - 189 mg/dl HIGH >190 mg/dl VERY HIGH Performed By: #### B MP, ALT, LIPID #### [facility] [address] [place], [place] [address] Dr. Rojelio Kingsley VLDL CALC 40.8 mg/dL Normal [facility] Comment on above: Performed By: #### B MP, ALT, LIPID #### [facility] [address] [place], [place] [address] Dr. Rojelio Kingsley Lipid Panelon 09-12-2022 Lipid Panel > or = 60 mg/dl - LO W CARDIOVASCULAR RISK <40 mg/dl - HIGH CARDIOVASCULAR RISK [employer] Other Lipid Panel SEE BELOW [facility] Other Lipid Panel 31.2 mg/dL [facility] Other Lipid Panel 40.8 mg/dL [employer] Other Cholesterol [Mass/Vol] 115 mg/dL Normal <=200 [employer] Other Comment on above: Performed By: #### B MP, ALT, LIPID #### [facility] [address] [place], [place] [address] Dr. Rojelio Kingsley Cholesterol in HDL [Mass/Vol] 43 mg/dL Normal 40-60 [facility] Other Comment on above: Performed By: #### B MP, ALT, LIPID #### [facility] [address] [place], [place] [address] Dr. Rojelio Kingsley Cholesterol.total/Cho lesterol in HDL [Mass ratio] 2.7 {ratio} Normal [facility] [employer] Other Comment on above: Performed By: #### B MP, ALT, LIPID #### [facility] [facility] [address] [place] [address] Dr. Rojelio Kingsley Triglyceride [Mass/Vol] 204 mg/dL Critically high <=150 [employer] Other Comment on above: Performed By: #### B MP, ALT, LIPID #### [facility] [address] [place] [address] Dr. Rojelio Kingsley MICROALBUMIN, RAND URon - mALB 2.1 mg/L Normal <=30.0 [facility] Comment on above: Performed By: #### M ALBR #### [facility] [address] [place] [address] Dr. Rojelio Kingsley PROF CHEM 8 (BAS METB)on Calcium [Mass/Vol] 9.6 mg/dL Normal 8.5-10.1 [facility] Comment on above: Performed By: #### B MP, ALT, LIPID #### [facility] [address] [place] [address] Dr. Rojelio Kingsley CO2 [Moles/Vol] 25.1 mmol/L Normal 21.0-32.0 [facility] Comment on above: Performed By: #### B MP, ALT, LIPID #### [facility] [address] [place] [address] Dr. Rojelio Kingsley Creatinine [Mass/Vol] 1.36 mg/dL Critically high 0.70-1.30 [facility] Comment on above: Performed By: #### B MP, ALT, LIPID #### [facility] [address] [place] [address] Dr. Rojelio Kingsley EGFR-AF FIJIAN >60 Normal >=60 [facility] Comment on above: Performed By: #### B MP, ALT, LIPID #### [facility] [address] [place] [address] Dr. Rojelio Kingsley EGFR-NON AF FIJIAN 51 mL/min/1.73m2 Critically low >=60 [facility] Comment on above: Performed By: #### B MP, ALT, LIPID #### [facility] [address] [address] [address] Rojelio Kingsley Glucose [Mass/Vol] 134 mg/dL Critically high 74-106 [facility] Comment on above: Performed By: #### B MP, ALT, LIPID #### [facility] [address] [address] [address] Rojelio Kingsley Potassium [Moles/Vol] 4.3 mmol/L Normal 3.5-5.1 [facility] Comment on above: Performed By: #### B MP, ALT, LIPID #### [facility] [address] [address] [address] Rojelio Kingsley Sodium [Moles/Vol] 141 mmol/L Normal 136-145 [facility] Comment on above: Performed By: #### B MP, ALT, LIPID #### [facility] [address] [address] [address] Rojelio Kingsley Urea nitrogen [Mass/Vol] 16.0 mg/dL Normal 7.0-18.0 [facility] Comment on above: Performed By: #### B MP, ALT, LIPID #### [facility] [address] [place] [address] Dr. Rojelio Kingsley US CAROTID ART BILon [...] GABY PADILLA Date: 2022-09-12 15:22 Normal The [facility] US CAROTID ART ZHENG [employer] Other POINT OF CARE GLUCOSEon 12-07 22-2021 Glucose [Mass/Vol] 106 mg/dL Normal 74-106 [facility] Comment on above: Performed By: #### P OCGLUC #### [facility] [address] [place], [place] [address] Dr. Rojelio Kingsley Covid-19 PCR ([facility])on SARS-CoV-2 (COVID-19) RNA MITCHELL+probe Ql (Unsp spec) Not detected Normal NOT DETECTED [facility] Comment on above: Result Comment: This test is not yet approved or cleared by the [place] FDA. When there are no FDA-approved or cleared tests available, and other criteria are met, FDA can make tests available under an emergency access mechanism called an Emergency Use Authorization (EUA). The EUA for this test is supported by the Contract Negotiator of Health and Human Service's (HHS's) declaration [...] SARS-CoV-2. Performed By: #### P OCGLUC #### [facility] [address] [place], [place] [address] Dr. Rojelio Kingsley POINT OF CARE GLUCOSEon 10-2 Glucose [Mass/Vol] 129 mg/dL Critically high 74-106 [facility] Comment on above: Performed By: #### P OCGLUC #### [facility] [address] [place], [place] [address] Dr. Rojelio Kingsley POINT OF CARE GLUCOSEon 09-2 Glucose [Mass/Vol] 116 mg/dL Critically high 74-106 [facility] Comment on above: Performed By: #### P OCGLUC #### [facility] [address] [address] [address] Rojelio Kingsley XR LSPINE 2_3 VIEWSon [...] GABY PADILLA Date: 2022-03-05 13:06 Normal The [facility] CBC AUTO DIFFon 02-22-2022 BASO # 0.0 103/ul Normal 0.0-0.1 The [facility] Comment on above: Performed By: #### P OCGLUC #### [facility] [address] [place] [address] Dr. Rojelio Kingsley Basophils/100 WBC (Bld) 0.4 % Normal 0.2-2.0 The [facility] Comment on above: Performed By: #### P OCGLUC #### [facility] [address] [place] [address] Dr. Rojelio Kingsley EO # 0.3 103/ul Normal 0.0-0.7 The [facility] Comment on above: Performed By: #### P OCGLUC #### [facility] [address] [address] [address] Rojelio Kingsley Eosinophils/100 WBC (Bld) 3.0 % Normal 0.9-7.0 The [facility] Comment on above: Performed By: #### P OCGLUC #### [facility] [address] [place] [address] Dr. Rojelio Kingsley Erythrocyte distribution width (RBC) [Ratio] 14.4 % Normal 11.0-15.0 [facility] Comment on above: Performed By: #### P OCGLUC #### [facility] [address] [place] [address] Dr. Rojelio Kingsley Hematocrit (Bld) [Volume fraction] 37.1 % Critically low 42.0-54.0 [facility] Comment on above: Performed By: #### P OCGLUC #### [facility] [address] [place] [address] Dr. Rojelio Kingsley Hemoglobin (Bld) [Mass/Vol] 12.2 g/dL Critically low 14.0-18.0 [facility] Comment on above: Performed By: #### P OCGLUC #### [facility] [address] [place] [address] Dr. Rojelio Kingsley IG # 0.03 10e3/ul Normal 0.00-0.03 [facility] Comment on above: Performed By: #### P OCGLUC #### [facility] [address] [place] [address] Dr. Rojelio Kingsley IG % 0.4 % Normal 0.0-0.5 [facility] Comment on above: Performed By: #### P OCGLUC #### [facility] [address] [place] [address] Dr. Rojelio Kingsley LYMPH # 1.8 103/ul Normal 1.2-3.8 The [facility] Comment on above: Performed By: #### P OCGLUC #### [facility] [address] [place] [address] Dr. Rojelio Kingsley Lymphocytes/100 WBC (Bld) 21.6 % Normal 20.5-60.0 [facility] Comment on above: Performed By: #### P OCGLUC #### [facility] [address] [place] [address] Dr. Rojelio Kingsley MANUAL DIFF REQ NO Normal [facility] Comment on above: Performed By: #### P OCGLUC #### [facility] [address] [place], [place] [address] Dr. Rojelio Kingsley MCH (RBC) [Entitic mass] 30.0 pg Normal 25.9-34.0 The [facility] Comment on above: Performed By: #### P OCGLUC #### [facility] [address] [place] [address] Dr. Rojelio Kingsley MCHC (RBC) [Mass/Vol] 32.9 g/dL Normal 29.9-35.2 The [facility] Comment on above: Performed By: #### P OCGLUC #### [facility] [address] [place] [address] Dr. Rojelio Kingsley MCV (RBC) [Entitic vol] 91.4 fL Normal 80.0-94.0 The [facility] Comment on above: Performed By: #### P OCGLUC #### [facility] [address] [place] [address] Dr. Rojelio Kingsley MONO # 0.7 103/ul Normal 0.3-0.8 [facility] Comment on above: Performed By: #### P OCGLUC #### [facility] [address] [place] [address] Dr. Rojelio Kingsley Monocytes/100 WBC (Bld) 8.4 % Normal 1.7-12.0 [facility] Comment on above: Performed By: #### P OCGLUC #### [facility] [address] [place] [address] Dr. Rojelio Kingsley NEUT # 5.5 103/ul Normal 1.4-6.5 The [facility] Comment on above: Performed By: #### P OCGLUC #### [facility] [address] [place] [address] Dr. Rojelio Kingsley Neutrophils/100 WBC (Bld) 66.2 % Normal 43.0-75.0 The [facility] Comment on above: Performed By: #### P OCGLUC #### [facility] [address] [place] [address] Dr. Rojelio Kingsley Platelet mean volume (Bld) [Entitic vol] 10.3 fL Normal 9.5-13.5 The [facility] Comment on above: Performed By: #### P OCGLUC #### [facility] [address] [place], [place] [address] Dr. Rojelio Kingsley PLT 202 103/ul Normal 150-450 [facility] Comment on above: Performed By: #### P OCGLUC #### [facility] [address] [address] [address] Rojelio Kingsley RBC 4.06 106/ul Critically low 4.70-6.10 [facility] Comment on above: Performed By: #### P OCGLUC #### [facility] [address] [address] [address] Rojelio Kingsley WBC 8.3 103/ul Normal 4.0-11.0 [facility] Comment on above: Performed By: #### P OCGLUC #### [facility] [address] [address] [address] Rojelio Kingsley GLYCOHEMOGLOBIN A1Con 2021 ADA RECOMMENDATION SEE BELOW Normal [facility] Comment on above: Result Comment: ADA RECOMMENDED LIMIT 4.0 - 6.0 ADA THERAPEUTIC TARGET < 7.0 ACTION SUGGESTED > 7.0 Performed By: #### A 1C #### [facility] [address] [address] [address] Rojelio Kingsley Glucose [Mass/Vol] 151 mg/dL Normal [facility] Comment on above: Performed By: #### A 1C #### [facility] [address] [address] [address] Rojelio Kingsley HbA1c (Bld) [Mass fraction] 6.9 % Critically high 4.5-6.2 [facility] Comment on above: Performed By: #### A 1C #### [facility] [address] [address] [address] Rojelio Kingsley Consultation Noteon 02-19-20 22 Consultation Note [id number] 0CD:[id number] Normal [facility] KNEE RIGHT 3 Son 1 KNEE RIGHT 3 S [facility] Department of Radiology [address] [place] [id number] ======== Patient Name: LIZZY YEE : [...] noted. Electronically signed: Mitul Banks. Transcribed by: [email or web address], User Resident: Electronically Signed by: MITUL BANKS @ 01/09/2021 08:47 PM Normal The [facility] POC GLUCOSE LABon 12-29-2020 Glucose [Mass/Vol] 194 mg/dL High 70-100 The [facility] Comment on above: Performed By: #### 8 [id number] #### [facility] [address] [place] [address], [facility] Glucose [Mass/Vol] 125 mg/dL High 70-100 [facility] Comment on above: Performed By: #### 8 [id number] #### [facility] [address] [place] [address], [place] POC GLUCOSE LABon 12-28-2020 Glucose [Mass/Vol] 197 mg/dL High 70-100 [facility] Comment on above: Performed By: #### 8 [id number] #### [facility] [address] [place] [address], [place] Glucose [Mass/Vol] 177 mg/dL High 70-100 [facility] Comment on above: Performed By: #### 8 [id number] #### [facility] [address] [place] [address], [place] Glucose [Mass/Vol] 215 mg/dL High 70-100 [facility] Comment on above: Performed By: #### 8 [id number] #### [facility] [address] [place] [address], [place] Glucose [Mass/Vol] 152 mg/dL High 70-100 [facility] Comment on above: Performed By: #### 8 [id number] #### [facility] [address] [place] [address], [place] BASIC METABOLIC PANELon 12-18 Calcium [Mass/Vol] 8.2 mg/dL Low 8.6-10.3 [facility] Comment on above: Order Comment: No: D o not add to previous draw Performed By: #### 8 [id number] #### [facility] [address] [place] [address], [place] Chloride [Moles/Vol] 102 mmol/L Normal 98-107 The [facility] Comment on above: Order Comment: No: D o not add to previous draw Performed By: #### 8 [id number] #### [facility] [address] [place] [address], [place] CO2 [Moles/Vol] 23 mmol/L Normal 21-31 The [facility] Comment on above: Order Comment: No: D o not add to previous draw Performed By: #### 8 [id number] #### [facility] [address] [place] [address], [place] Creatinine [Mass/Vol] 0.97 mg/dL Normal 0.70-1.30 [facility] Comment on above: Order Comment: No: D o not add to previous draw Performed By: #### 8 [id number] #### [facility] [address] [place] [address], [place] GFR/1.73 sq M.predicted among blacks MDRD (S/P/Bld) [Vol rate/Area] mL/min/{1.73_m2} Normal >60 The [facility] Comment on above: Order Comment: No: D o not add to previous draw Result Comment: Calc ulation may not be valid for patients over 70 years Performed By: #### 8 [id number] #### [facility] [address] [place] [address], [place] GFR/1.73 sq M.predicted among non-blacks MDRD (S/P/Bld) [Vol rate/Area] mL/min/{1.73_m2} Normal >60 [facility] Comment on above: Order Comment: No: D o not add to previous draw Result Comment: Calc ulation may not be valid for patients over 70 years Performed By: #### 8 [id number] #### [facility] [address] [place] [address], [place] Glucose [Mass/Vol] 191 mg/dL High 70-100 [facility] Comment on above: Order Comment: No: D o not add to previous draw Performed By: #### 8 [id number] #### [facility] [address] [place] [address], [place] Potassium [Moles/Vol] 3.8 mmol/L Normal 3.5-5.1 [facility] Comment on above: Order Comment: No: D o not add to previous draw Performed By: #### 8 [id number] #### [facility] [address] [place] [id number], [facility] Sodium [Moles/Vol] 134 mmol/L Low 136-145 [facility] Comment on above: Order Comment: No: D o not add to previous draw Performed By: #### 8 [id number] #### [facility] [address] [place] [address], [facility] Urea nitrogen [Mass/Vol] 23 mg/dL Normal 7-25 [facility] Comment on above: Order Comment: No: D o not add to previous draw Performed By: #### 8 [id number] #### [facility] [address] [place] [address], [facility] CBC COMPLETE BLOOD COUNTon 0 12-27-2020 Erythrocyte distribution width (RBC) [Ratio] 13.3 % Normal 11.5-15.0 [facility] Comment on above: Order Comment: No: D o not add to previous draw Performed By: #### 8 [id number] #### [facility] [address] [place] [address], [facility] Hematocrit (Bld) [Volume fraction] 35.4 % Low 39.0-50.0 [facility] Comment on above: Order Comment: No: D o not add to previous draw Performed By: #### 8 [id number] #### [facility] [address] [place] [address], [facility] Hemoglobin (Bld) [Mass/Vol] 11.7 g/dL Low 13.0-17.0 [facility] Comment on above: Order Comment: No: D o not add to previous draw Performed By: #### 8 [id number] #### [facility] [address] [place] [address], [facility] MCH (RBC) [Entitic mass] 31.2 pg Normal 27.0-33.0 [facility] Comment on above: Order Comment: No: D o not add to previous draw Performed By: #### 8 [id number] #### [facility] [address] [place] [address], [facility] MCHC (RBC) [Mass/Vol] 33.1 g/dL Normal 32.0-35.0 [facility] Comment on above: Order Comment: No: D o not add to previous draw Performed By: #### 8 [id number] #### [facility] [address] [place] [address], [facility] MCV (RBC) [Entitic vol] 94.4 fL Normal 82.0-98.0 [facility] Comment on above: Order Comment: No: D o not add to previous draw Performed By: #### 8 [id number] #### [facility] [address] [place] [id number], [facility] Nucleated RBC/100 WBC (Bld) [Ratio] 0 % Normal 0-0 [facility] Comment on above: Order Comment: No: D o not add to previous draw Performed By: #### 8 [id number] #### [facility] [address] [place] [id number], [place] PLAT CNT 177 10*3/uL Normal 150-400 [facility] Comment on above: Order Comment: No: D o not add to previous draw Performed By: #### 8 [id number] #### [facility] [address] [place] [id number], [facility] RBC (Bld) [#/Vol] 3.75 10*6/uL Low 4.20-5.70 The [facility] Comment on above: Order Comment: No: D o not add to previous draw Performed By: #### 8 [id number] #### [facility] [address] [place] [id number], [place] WBC (Bld) [#/Vol] 16.83 10*3/uL High 4.00-10.60 [facility] Comment on above: Order Comment: No: D o not add to previous draw Performed By: #### 8 [id number] #### [facility] [address] [place], [place] [address] Operative Reporton Operative Report MR#: [id number] I [facility] Pt. Name: Lizzy Yee Room #: 6AB [id number] Discharge Date: Birthdate: 1945 OPERATIVE REPORT DATE [...] cemented posterior stabilized total knee arthroplasty using [place] implants. COMPLICATIONS: None. TOTAL TOURNIQUET TIME: 92 [...] surgery. 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 The patient [...] futu (more content not included)... Normal [facility] POC GLUCOSE LABon 12-27-2020 Glucose [Mass/Vol] 200 mg/dL High 70-100 [facility] Comment on above: Performed By: #### 8 [id number] #### [facility] [address] [place] [address], [place] Glucose [Mass/Vol] 186 mg/dL High 70-100 [facility] Comment on above: Performed By: #### 8 [id number] #### [facility] [address] [place] [address], [place] Glucose [Mass/Vol] 250 mg/dL High 70-100 [facility] Comment on above: Performed By: #### 8 [id number] #### [facility] [address] [place] [address], [place] Glucose [Mass/Vol] 177 mg/dL High 70-100 [facility] Comment on above: Performed By: #### 8 [id number] #### [facility] [address] [place] [address], [place] POC GLUCOSE LABon 12-26-2020 Glucose [Mass/Vol] 230 mg/dL High 70-100 [facility] Comment on above: Performed By: #### 8 [id number] #### [facility] [address] [place] [address], [place] Glucose [Mass/Vol] 278 mg/dL High 70-100 [facility] Comment on above: Performed By: #### 8 [id number] #### [facility] [address] [place] [address], [place] Glucose [Mass/Vol] 174 mg/dL High 70-100 [facility] Comment on above: Performed By: #### 8 [id number] #### [facility] [address] [facility] [place] [address], [facility] Glucose [Mass/Vol] 146 mg/dL High 70-100 [facility] Comment on above: Performed By: #### 8 [id number] #### [facility] [address] [facility] [place] [address], [facility] PORTABLE KNEE RIGHT 2 [facility] 12-26-[address] [facility] Department of Radiology [address] [place] [phone] ======== Patient Name: LIZZY YEE : 1945 Sex: M Age: Race: White Pt. Location: [id number] Patient Status: I Ordered Date: 12/26/2020 7:05:00 AM Completed Date: 12/26/2020 01:31 PM Requesting Provider: DANO CANO Attending Provider: HONG SCOTT Report Copy To: Signs & Symptoms: Post OP History: Comments: Hardware Evaluation, In PACU; Exam: PORTABLE KNEE RIGHT 2 [facility] ======== PORTABLE KNEE RIGHT 2 S 12/26/2020 1:31 PM SIGNS AND SYMPTOMS: Post [...] replacement. Electronically signed: José Thornton. Transcribed by: [email or web address], User Resident: JOSÉ THORNTON Electronically Signed by: JOSÉ THORNTON @ 12/26/2020 03:28 PM I personally read this/these film(s) with this resident Normal The [facility] Comment on above: Order Comment: Hardw are Evaluation, In PACU; HIP RIGHT 1 OR 2 VWS WITH PE LVISon 10-05-2020 HIP RIGHT 1 OR 2 VWS WITH PELVIS [facility] Department of Radiology [address] [place] [address] ======== Patient Name: LIZZY YEE [...] narrowing. Electronically signed: Mitul Banks. Transcribed by: [email or web address], User Resident: Electronically Signed by: MITUL BANKS @ 10/05/2020 01:08 PM Normal [facility] Comment on above: Order Comment: Views (X-RAY, HIP): AP Pelvis, X-Table Lateral Hip , Weight Bearing?: Y KNEE LEFT 4VWSon 08-20-2020 KNEE LEFT 4VWS [facility] Department of Radiology [address] [place] [phone] ======== Patient Name: LIZZY YEE : 1945 Sex: M Age: Race: White Pt. Location: Patient Status: O Ordered Date: 08/20/2020 8:10:00 AM Completed Date: 08/20/2020 08:14 AM Requesting Provider: CEDRICK WILD Attending Provider: CEDRICK WILD Report Copy To: Signs & Symptoms: M25.569 Pain in unspecified knee I10 History: [place] Comments: Views (X-RAY, KNEE): AP, Lateral, Tunnel, [place] , Weight Bearing?: Y Exam: KNEE LEFT 4VWS ======== KNEE LEFT 4VWS 08/20/2020 8:14 AM CLINICAL INDICATIONS: M25.569 Pain in unspecified knee I10 TECHNOLOGIST COMMENTS: Patient states having bilateral knee pain. QUESTION FOR THE RADIOLOGIST: Views (X-RAY, KNEE): AP, Lateral, Tunnel, [place] , Weight Bearing?: Y PROTOCOL: AP,Lateral,Tunnel and [...] reports Electronically signed: Ej Francisco. Transcribed by: [email or web address], User Resident: TAMERA MARIE Electronically Signed by: EJ FRANCISCO @ 08/20/2020 08:41 AM I personally read this/these film(s) with this resident Normal [facility] Comment on above: Order Comment: Views (X-RAY, KNEE): AP, Lateral, Tunnel, [place] , Weight Bearing?: Y KNEE RIGHT 4 [facility] 1 KNEE RIGHT 4 S [facility] Department of Radiology [address] [place] [phone] ======== Patient Name: LIZZY YEE : 1945 Sex: M Age: Race: White Pt. Location: 84 Patient Status: O Ordered Date: 08/20/2020 8:10:00 AM Completed Date: 08/20/2020 08:14 AM Requesting Provider: CEDRICK WILD Attending Provider: CEDRICK WILD Report Copy To: Signs & Symptoms: M25.569 Pain in unspecified knee I10 History: [place] Comments: Views (X-RAY, KNEE): AP, Lateral, [place], [place] , Weight Bearing?: Y Exam: KNEE RIGHT 4 S ======== KNEE RIGHT 4 S 08/20/2020 8:14 AM SIGNS AND SYMPTOMS: M25.569 Pain in unspecified knee I10 TECHNOLOGIST COMMENTS: Patient states having bilateral knee pain. QUESTION FOR THE RADIOLOGIST: Views (X-RAY, KNEE): AP, Lateral, [place], [place] , Weight Bearing?: Y PROTOCOL: AP,Lateral,Tunnel and [...] knee. Electronically signed: Ej Francisco. Transcribed by: [email or web address], User Resident: Electronically Signed by: EJ FRANCISCO @ 08/20/2020 08:30 AM Normal [facility] Comment on above: Order Comment: Views (X-RAY, KNEE): AP, Lateral, [place], [place] , Weight Bearing?: Y Vital Signs Date Time Vital Sign Value Performing Clinician Facility 04-21-2024 15:20-0400 Body mass index (BMI) [Ratio] 39.5 kg/m2 DO Juancarlos Ball Work Phone: [facility] 04-21-2024 13:34-0400 Body height 161.29 cm DO Juancarlos Ball Work Phone: [facility] 04-21-2024 13:34-0400 Body weight 101.6 kg DO Juancarlos Ball Work Phone: [facility] 04-20-2024 16:32-0400 Body height 165.1 cm DO Juancarlos Ball Work Phone: [facility] 04-20-2024 16:32-0400 Body mass index (BMI) [Ratio] 37.3 kg/m2 DO Juancarlos Ball Work Phone: [facility] 04-20-2024 16:32-0400 Body weight 101.66 kg DO Juancarlos Ball Work Phone: [facility] 03-09-2024 13:34-0400 Body height 161.29 cm DO Juancarlos Ball Work Phone: [facility] 03-09-2024 13:34-0400 Body mass index (BMI) [Ratio] 39.8 kg/m2 DO Juancarlos Ball Work Phone: [facility] 03-09-2024 13:34-0400 Body weight 103.58 kg DO Juancarlos Ball Work Phone: [facility] 03-09-2024 13:34-0400 Diastolic blood pressure 72 mm[Hg] DO Juancarlos Ball Work Phone: [facility] 03-09-2024 13:34-0400 Heart rate 56 /min DO Juancarlos Ball Work Phone: [facility] 03-09-2024 13:34-0400 Respiratory rate 12 /min DO Juancarlos Ball Work Phone: [facility] 03-09-2024 13:34-0400 Systolic blood pressure 126 mm[Hg] DO Juancarlos Ball Work Phone: [facility] 02-24-2024 13:14-0400 Body height 161.29 cm DO Juancarlos Ball Work Phone: [facility] 02-24-2024 13:14-0400 Body mass index (BMI) [Ratio] 39.4 kg/m2 DO Juancarlos Ball Work Phone: [facility] 02-24-2024 13:14-0400 Body weight 102.73 kg DO Juancarlos Ball Work Phone: [facility] 02-24-2024 13:14-0400 Diastolic blood pressure 58 mm[Hg] DO Juancarlos Ball Work Phone: [facility] 02-24-2024 13:14-0400 Heart rate 53 /min DO Juancarlos Ball Work Phone: [facility] 02-24-2024 13:14-0400 Respiratory rate 20 /min DO Juancarlos Ball Work Phone: [facility] 02-24-2024 13:14-0400 SaO2% (BldA) [Mass fraction] 95 % DO Juancarlos Ball Work Phone: [facility] 02-24-2024 13:14-0400 Systolic blood pressure 120 mm[Hg] DO Juancarlos Ball Work Phone: [facility] 02-08-2024 11:49-0400 Body mass index (BMI) [Ratio] 39.5 kg/m2 DO Juancarlos Ball Work Phone: [facility] 02-08-2024 10:04-0400 Body height 161.29 cm DO Juancarlos Ball Work Phone: [facility] 02-08-2024 10:04-0400 Body weight 101.15 kg DO Juancarlos Ball Work Phone: [facility] 12-08-2023 13:37-0400 Body height 161.29 cm [facility] 12-08-2023 13:37-0400 Body mass index (BMI) [Ratio] 39.4 kg/m2 [facility] 12-08-2023 13:37-0400 Body weight 102.68 kg [facility] 12-08-2023 13:37-0400 Diastolic blood pressure 67 mm[Hg] [facility] 12-08-2023 13:37-0400 Heart rate 61 /min [facility] 12-08-2023 13:37-0400 Respiratory rate 20 /min [facility] 12-08-2023 13:37-0400 Systolic blood pressure 126 mm[Hg] [facility] 11-17-2023 13:12-0400 Body weight 102.71 kg [facility] 11-04-2023 10:57-0400 Body height 161.29 cm [facility] 11-04-2023 10:57-0400 Body mass index (BMI) [Ratio] 39.5 kg/m2 [facility] 11-04-2023 10:57-0400 Body weight 102.96 kg [facility] 11-04-2023 10:57-0400 Diastolic blood pressure 70 mm[Hg] [facility] 11-04-2023 10:57-0400 Heart rate 57 /min [facility] 11-04-2023 10:57-0400 Respiratory rate 18 /min [facility] 11-04-2023 10:57-0400 SaO2% (BldA) [Mass fraction] 97 % [facility] 11-04-2023 10:57-0400 Systolic blood pressure 109 mm[Hg] [facility] 06-05-2023 10:00-0500 Body height 165.1 cm Juancarlos Ball Other [facility] [employer] Other 06-05-2023 10:00-0500 Body mass index (BMI) [Ratio] 39.87 kg/m2 Juancarlos Ball Other [facility] [employer] Other 06-05-2023 10:00-0500 Body weight 108.68 kg Juancarlos Ball Other [facility] [employer] Other 06-05-2023 10:00-0500 Diastolic blood pressure 71 mm[Hg] Juancarlos Ball Other [facility] [employer] Other 06-05-2023 10:00-0500 Respiratory rate 20 /min Juancarlos Ball Other [facility] [employer] Other 06-05-2023 10:00-0500 Systolic blood pressure 118 mm[Hg] Juancarlos Ball Other [facility] [employer] Other 05-06-2023 13:45-0400 Body height 165.1 cm Juancarlos Ball Other [facility] Other 05-06-2023 13:45-0400 Body mass index (BMI) [Ratio] 39.97 kg/m2 Juancarlos Ball Other [facility] Other 05-06-2023 13:45-0400 Body weight 108.95 kg Juancarlos Ball Other [facility] Other 05-06-2023 13:45-0400 Diastolic blood pressure 87 mm[Hg] Juancarlos Ball Other [facility] Other 05-06-2023 13:45-0400 Respiratory rate 16 /min Juancarlos Ball Other [facility] Other 05-06-2023 13:45-0400 Systolic blood pressure 158 mm[Hg] Juancarlos Ball Other [facility] Other 03-10-2023 11:00-0400 Body height 165.1 cm Juancarlos Ball Other [facility] Other 03-10-2023 11:00-0400 Body mass index (BMI) [Ratio] 39.3 kg/m2 Juancarlos Ball Other [facility] Other 03-10-2023 11:00-0400 Body weight 107.14 kg Juancarlos Ball Other [facility] Other 03-10-2023 11:00-0400 Diastolic blood pressure 67 mm[Hg] Juancarlos Ball Other [facility] Other 03-10-2023 11:00-0400 Respiratory rate 16 /min Juancarlos Ball Other [facility] Other 03-10-2023 11:00-0400 Systolic blood pressure 120 mm[Hg] Juancarlos Ball Other [facility] Other 10-16-2022 13:12-0400 Body temperature 97.11 [degF] Jay Gonzalez MD Work Phone: [facility] 10-16-2022 13:12-0400 Diastolic blood pressure 66 mm[Hg] Jay Gonzalez MD Work Phone: [facility] 10-16-2022 13:12-0400 Heart rate 51 /min Jay Gonzalez MD Work Phone: [facility] 10-16-2022 13:12-0400 SaO2% (BldA) [Mass fraction] 96 % Jay Gonzalez MD Work Phone: [facility] 10-16-2022 13:12-0400 Systolic blood pressure 143 mm[Hg] Jay Gonzalez MD Work Phone: [facility] 09-08-2022 13:30-0500 Body height 165.1 cm Juancarlos Ball Other [facility] Other 09-08-2022 13:30-0500 Body mass index (BMI) [Ratio] 39.33 kg/m2 Juancarlos Ball Other [facility] Other 09-08-2022 13:30-0500 Body weight 107.23 kg Juancarlos Ball Other [facility] Other 09-08-2022 13:30-0500 Diastolic blood pressure 70 mm[Hg] Juancarlos Ball Other [facility] Other 09-08-2022 13:30-0500 Respiratory rate 20 /min Juancarlos Ball Other [employer] Other 09-08-2022 13:30-0500 Systolic blood pressure 112 mm[Hg] Juancarlos Ball Other [facility] [employer] Other 01-27-2022 13:20-0400 Body height 165.1 cm Jus Medina MD Work Phone: [facility] 01-27-2022 13:20-0400 Body temperature 96.91 [degF] Jus Medina MD Work Phone: [facility] 01-27-2022 13:20-0400 Body weight 104.33 kg Jus Medina MD Work Phone: [facility] 01-27-2022 13:20-0400 Diastolic blood pressure 56 mm[Hg] Jus Medina MD Work Phone: [facility] 01-27-2022 13:20-0400 Heart rate 50 /min Jus Medina MD Work Phone: [facility] 01-27-2022 13:20-0400 SaO2% (BldA) [Mass fraction] 98 % Jus Medina MD Work Phone: [facility] 01-27-2022 13:20-0400 Systolic blood pressure 131 mm[Hg] Jus Medina MD Work Phone: [facility] 10-10-2021 10:46-0400 Body height 165.1 cm Jay Gonzalez MD Work Phone: [facility] 10-10-2021 10:46-0400 Body weight 102.51 kg Jay Gonzalez MD Work Phone: [facility] 10-10-2021 10:46-0400 Diastolic blood pressure 65 mm[Hg] Jay Gonzalez MD Work Phone: [facility] 10-10-2021 10:46-0400 Heart rate 76 /min Jay Gonzalez MD Work Phone: [facility] 10-10-2021 10:46-0400 Systolic blood pressure 137 mm[Hg] Jay Gonzalez MD Work Phone: [facility] 10-10-2021 10:44-0400 Body height 165.1 cm Jus Medina MD Work Phone: [facility] 10-10-2021 10:44-0400 Body weight 102.51 kg Jus Medina MD Work Phone: [facility] 10-10-2021 10:44-0400 Diastolic blood pressure 65 mm[Hg] Jus Medina MD Work Phone: [facility] 10-10-2021 10:44-0400 Heart rate 76 /min Jus Medina MD Work Phone: [facility] 10-10-2021 10:44-0400 SaO2% (BldA) [Mass fraction] 98 % Jus Medina MD Work Phone: [facility] 10-10-2021 10:44-0400 Systolic blood pressure 137 mm[Hg] Jus Medina MD Work Phone: [facility] Encounters Encounter Date Encounter Type Care Provider Facility Start: 05-04-2024 End: 05-04-2024 ambulatory EHAB [facility] Start: 04-21-2024 End: 04-21-2024 Patient encounter procedure DO Juancarlos Ball Work Phone: [facility] Work Phone: Start: 04-21-2024 End: 04-21-2024 Patient encounter procedure DO Juancarlos Ball Work Phone: [facility] Work Phone: Start: 04-21-2024 End: 04-21-2024 Patient encounter procedure DO Juancarlos Ball Work Phone: [facility] Start: 04-21-2024 End: 04-21-2024 ambulatory Ej Anthony II Facility:[facility] Start: 04-11-2024 End: 04-11-2024 ambulatory Hanh Wade MD Facility: [facility] Start: 03-24-2024 End: 03-24-2024 ambulatory ANGELA BINGHAM Not Available Start: 03-09-2024 End: 03-09-2024 Patient encounter procedure DO Juancarlos Cuenca Work Phone: [facility] Work Phone: Start: 02-24-2024 End: 02-24-2024 Patient encounter procedure DO Juancarlos Cuenca Work Phone: [facility] Work Phone: Start: 02-08-2024 End: 02-08-2024 Patient encounter procedure DO Juancarlos Cuenca Work Phone: [facility] Work Phone: Start: 12-15-2023 End: 12-15-2023 ambulatory JOANNA SHANNON Not Available Start: 12-10-2023 End: 12-10-2023 ambulatory ANGELA BINGHAM Not Available Start: 12-08-2023 End: 12-08-2023 Patient encounter procedure [facility] Work Phone: Start: 11-17-2023 End: 11-17-2023 Patient encounter procedure [facility] Work Phone: Start: 11-04-2023 End: 11-04-2023 Patient encounter procedure [facility] Work Phone: Start: 10-27-2023 Telephone encounter Jay patel MD Work Phone: General Surgery Start: 10-15-2023 End: 10-15-2023 ambulatory JAY GONZALEZ Facility:[facility] Start: 10-09-2023 Non-patient / Non-visit [facility] [email or web address] Work Phone: Start: 10-01-2023 End: 10-01-2023 ambulatory ANGELA BINGHAM Not Available Start: 08-10-2023 (RD) [employer] [facility] Start: 08-10-2023 End: 08-10-2023 ambulatory Juancarlos Gracious Eloise [facility] [employer] Other Start: 08-03-2023 End: 08-03-2023 ambulatory Hanh Wade MD Facility:[facility] Start: 07-27-2023 End: 07-27-2023 ambulatory Hanh Wade MD Facility:[facility] Start: 06-17-2023 End: 06-17-2023 ambulatory Juancarlos Cuenca Other [facility] Other Start: 06-17-2023 Telephone encounter Juancarlos Ball [facility] Start: 06-16-2023 End: 06-16-2023 ambulatory Juancarlos Ball Other [facility] Other Start: 06-16-2023 Telephone encounter Juancarlos Ball [facility] Start: 06-09-2023 End: 06-09-2023 ambulatory Juancarlos Ball Other [facility] Other Start: 06-09-2023 Telephone encounter Juancarlos Ball [facility] Start: 06-08-2023 End: 06-08-2023 ambulatory Juancarlos Ball Other [facility] Other Start: 06-08-2023 Telephone encounter Juancarlos Ball [facility] Start: 06-07-2023 End: 06-07-2023 ambulatory Juancarlos Ball Other [facility] Other Start: 06-07-2023 Telephone encounter Juancarlos Ball [facility] Start: 06-05-2023 End: 06-05-2023 ambulatory Juancarlos Ball Other [employer] Other Start: 06-05-2023 Office outpatient vi sit 25 minutes Juancarlos Ball [facility] Start: 05-27-2023 End: 05-27-2023 ambulatory Juancarlos Ball Other [employer] Other Start: 05-27-2023 Telephone encounter Juancarlos Ball [facility] Start: 05-17-2023 End: 05-17-2023 ambulatory Juancarlos Ball Other [employer] Other Start: 05-17-2023 Telephone encounter Juancarlos Ball [facility] Start: 05-15-2023 End: 05-15-2023 ambulatory Juancarlos Ball Other [facility] Other Start: 05-15-2023 Telephone encounter Juancarlos Ball [facility] Start: 05-07-2023 End: 05-07-2023 ambulatory Juancarlos Ball Other [facility] Other Start: 05-07-2023 Telephone encounter Juancarlos Ball [facility] Start: 05-06-2023 End: 05-06-2023 ambulatory Juancarlos Ball Other [employer] Other Start: 05-06-2023 Office outpatient vi sit 25 minutes Juancarlos Ball [facility] Start: 05-06-2023 Telephone encounter Juancarlos Ball [facility] Start: 04-04-2023 End: 04-04-2023 ambulatory Juancarlos Ball Other [facility] Other Start: 04-04-2023 Telephone encounter Juancarlos Ball [facility] Start: 03-10-2023 End: 03-10-2023 ambulatory Juancarlos Ball Other [facility] Other Start: 03-10-2023 Office outpatient vi sit 25 minutes Juancarlos Ball [facility] Start: 12-24-2022 End: 12-24-2022 ambulatory Juancarlos Ball Other [employer] Other Start: 12-24-2022 Telephone encounter Juancarlos Ball [...] (Primary Dx) Start: 10-11-2022 ambulatory JAY GONZALEZ Facility:[facility] Start: 10-11-2022 End: 10-11-2022 Subsequent hospital visit by physician Ct [facility] Comment on above: 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] Start: 10-06-2022 Telephone encounter Jay patel MD Work Phone: General Surgery Comment on above: Patient Question Start: 09-16-2022 Telephone encounter Juancarlos Bolton [facility] Start: 09-16-2022 End: 09-17-2022 ambulatory Nya BIRD [facility] [employer] Other Start: 09-16-2022 End: 09-27-2022 Pre-admission assessment Nya BIRD [facility] Start: 09-12-2022 Telephone encounter Juancarlos Bolton [facility] Start: 09-12-2022 End: 09-13-[address] JUANCARLOS CUENCA [facility] [employer] Other Start: 09-08-2022 End: 09-08-2022 ambulatory Juancarlos Cuenca Other [facility] [employer] Other Start: 09-08-2022 Patient encounter procedure Juancarlos BURKS [facility] Start: 07-31-2022 End: 08-01-[address] EVAN LAMAS . Facility:[facility] Start: 07-03-2022 Encounter for preprocedural laboratory examination DR EVAN LAMAS . [facility] Start: 07-01-2022 End: 07-01-[address] [...] Telephone encounter Shilpa Storm MD Work Phone: [facility] Comment on above: Research Start: [...] Start: 04-21-2024 Plain radiography of pelvis DO [facility] Work Phone: Start: 04-21-2024 X-ray of left knee, four views DO [facility] Work Phone: Start: 10-04-2021 Partial resection of colon Nya BIRD Start: 10-04-2021 Repair of ventral hernia Nya BIRD Start: 04-08-2021 Colonoscopy Nya ABARCA Comment on above: Transverse and desce nding colon polyps Start: 12-26-2020 ANESTH KNEE ARTHROPLASTY [facility] Start: 12-26-2020 Arthrp kne condyle&p latu medial&lat compartments VITHAL SHENDGE Start: 12-26-2020 JOINT DEVICE (IMPLANTABLE) JUANCARLOS CUENCA Start: 11-17-2017 Colonoscopy Nya DAVIDA ABARCA Comment on above: 2004 (2), 2005, 2007 , 2009, 2011, 05/2015, 11/2017 Start: 03-06-2016 Transurethral prostatectomy Nya BIRD Start: 02-18-2016 Cystoscopy Nya ABARCA Start: 01-16-2016 Urodynamic studies [place] BIRD Start: 07-20-2012 Hernia repair Nya ROSARIO Start: 08-26-2007 Prosthetic arthropla sty of the hip Nya BIRD Start: 08-20-2007 Hernia of anterior abdominal wall (disorder) Nya BIRD Start: 04-19-2004 Transrectal biopsy o f prostate using ultrasound guidance Nya BIRD Atherectomy Nya BIRD Comment on above: with stent 2006 Bilateral vasectomy Nya SAVAGEDior Decompression of med med nerve Nya SAVAGEDior Through knee amputation [place] BIRD Plan of Treatment Date Care Activity Detail Author Start: 10-14-2024 BP Controlled (<130/80) BP Controlle d (<130/80) [facility] Start: 07-20-2023 Advance Directive Discussion Advance Directive Discussion [facility] Start: 07-20-2023 Behavioral Health Screening Behavioral Health Screening [facility] Start: 10-10-2022 End: 11-09-2022 Ct abdomen & pelvis w/o contrast material CT ABD/PEL WO IVCON Radiology Routine Ventral incisional hernia Expected: 10/10/2022, Expires: 11/09/2022 [facility] Work Phone: Comment on above: Expected: 10/10/2022 , Expires: 11/09/2022 Start: 07-20-2022 ADVANCE DIRECTIVE DISCUSSION ADVANCE DIRECTIVE DISCUSSION [facility] Start: 07-20-2022 DEPRESSION ASSESSMENT DEPRESSION ASS ESSMENT [facility] Start: 03-20-2022 Influenza vaccination INFLUENZA (#1) [facility] Start: 03-13-2022 Hemoglobin A1c measurement HbA1C [facility] Start: 03-13-2022 Hemoglobin A1c/Hemoglobin.total in Blood HBA1C [facility] Start: 01-04-2022 COVID-19 VACCINE (5 - Booster for Pfizer series) COVID-19 VACCINE (5 - Booster for Pfizer series) [facility] Start: 07-20-2021 ADVANCE DIRECTIVE DISCUSSION ADVANCE DIRECTIVE DISCUSSION [facility] Start: 04-19-2015 Pneumococcal Vaccine : 65+ (2 of 2 - PCV) Pneumococcal Vaccine: 65+ (2 of 2 - PCV) [facility] Start: 2009 PNEUMOVAX AGE 65 AND OVER WITH 5YR LOOKBACK (#1) PNEUMOVAX AGE 65 AND OVER WITH 5YR LOOKBACK (#1) [facility] Start: 1994 SHINGRIX VACCINE (1 of 2) SHINGRIX VACCINE (1 of 2) [facility] Start: 12-31-1963 Urine microalbumin profile [facility] Start: 1962 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 MACY DISEASE VISIT ANNUAL PCP TEAM CHRONIC DISEASE VISIT [facility] Start: 1962 BP CONTROLLED (<130/80) BP CONTROLLE D (<130/80) [facility] Start: 1962 Hepatitis B surface antibody level LDL CHOLESTEROL [facility] Start: 1962 HEPATITIS C SCREENING HEPATITIS C [facility] Start: 1962 Hepatitis C screening Hepatitis C [facility] Start: 1956 Adult depression screening assessment DEPRESSION SCREENING [facility] Start: 1954 3 comp foot exam completed DIABETIC FOOT EXAM [facility] Start: 1954 Diabetic foot examination Diabetic Foot Exam [facility] Start: 1954 Glaucoma screening Dilated Retinal E xam [facility] Start: 1954 Hepatitis B screening URINE ALBUMIN:CREATININE RATIO [facility] Start: 1954 Hepatitis C antibody , confirmatory test DILATED RETINAL EXAM [facility] Start: 1950 PNEUMOCOCCAL: 65+ (1 - PCV) PNEUMOCOCCAL: 65+ (1 - PCV) [facility] End: 10-11-2022 Ct abdomen & pelvis w/o contrast material [facility] Work Phone: Comment on above: 1 Occurrences starti ng 10/11/2022 until 10/11/2022 End: 11-15-2023 Ct abdomen & pelvis w/o contrast material CT ABD/PEL WO IVCON Radiology Routine Ventral incisional hernia 1 Occurrences starting 10/16/2022 until 11/15/2023 [facility] Work Phone: Comment on above: 1 Occurrences starti ng 10/16/2022 until 11/15/2023 [facility] Immunizations Immunization Date Immunization Notes Care Provider Alexa dietz 05-20-2022 influenza virus vaccine, unspecified formulation Nya BIRD [facility] 05-16-2022 influenza, high dose seasonal, preservative-free Juancarlos Cuenca Other [facility] Other 05-16-2022 influenza virus vaccine, split virus (incl. purified surface antigen) Juancarlos Cuenca Other [facility] Other 05-16-2022 influenza virus vaccine, unspecified formulation [facility] 04-15-2022 SARS-CoV-2 (COVID-19 ) [id number] Nya NILL [facility] 11-09-2021 COVID-19 Vaccine Pfi zer - Documentation Purposes Only Juancarlos Cuenca Other [facility] 11-09-2021 SARS-CoV-2 mRNA ([id number] se) vaccine Nya NILL [facility] 04-19-2021 SARS-CoV-2 (COVID-19 ) mRNA BNT-162b2 vax Nya NILL [facility] Comment on above: Result Comment: 2022: [id number] 09-05-2020 SARS-CoV-2 (COVID-19 ) mRNA BNT-162b2 vax Nya NILL [facility] Comment on above: Result Comment: 2022: [id number] 08-15-2020 COVID-19 Vaccine Moderna - Documentation Purposes Only Juancarlos Cuenca Other [facility] 08-15-2020 SARS-CoV-2 (COVID-19 ) mRNA BNT-162b2 vax Nya NILL [facility] Comment on above: Result Comment: 2022: [id number] 03-28-2020 influenza virus vaccine, split virus (incl. purified surface antigen) Juancarlos Cuenca Other [employer] [facility] [employer] Other 03-28-2020 influenza virus vaccine, unspecified formulation [facility] 05-17-2019 influenza virus vaccine, split virus (incl. purified surface antigen) Juancarlos Cuenca Other [facility] [employer] Other 05-17-2019 influenza virus vaccine, unspecified formulation [facility] 05-13-2018 influenza virus vaccine, split virus (incl. purified surface antigen) Juancarlos Cuenca Other [facility] [employer] Other 05-13-2018 influenza virus vaccine, unspecified formulation [facility] 04-25-2015 influenza virus vaccine, split virus (incl. purified surface antigen) Juancarlos Cuenca Other [facility] [employer] Other 04-25-2015 influenza virus vaccine, unspecified formulation [facility] 04-25-2015 pneumococcal conjuga te vaccine, 13 valent Juancarlos Cuenca Other [facility] 04-19-2014 pneumococcal polysaccharide vaccine, 23 valent Juancarlos Cuenca Other [facility] 04-20-2013 tetanus and diphther ia toxoids, adsorbed, preservative free, for adult use (5 Lf of tetanus toxoid and 2 Lf of diphtheria toxoid) Juancarlos Cuenca Other [facility] 04-21-2012 pneumococcal polysaccharide vaccine, 23 valent Juancarlos Cuenca Other [facility] Payers Date Payer Category Payer Self-pay [id number] 2023 Unknown [id number] 2020 Private Health Insurance [facility] AARP SUPPLEMENT [id number] 2020-Present [phone] [address] [place] [address] Indemnity [id number] .[id number] 2021 Private Health Insurance [facility] AARP SUPPLEMENT [id number] 2020-Present [phone] [address] [place] [address] Indemnity [id number] .[id number] 2009 Medicare MEDICARE MEDICAR E A AND B [id number] 2009-Present [phone] [place] [address] Medicare [id number] .7.3.748848.315 2009 Medicare 1.2.840.067645. 1.13.159.2 .7.3.462523.315 1959 Medicare [id number] 1959 Unknown [id number] 1944 Unknown [id number] 2.16.840.1.226334.3.579.2 .647 1944 Unknown [id number] 2.16.840.1.752006.3.579.2 .647 1944 Unknown [id number] 2.16.840.1.074983.3.579.2 .593 1944 Unknown [id number] 2.16.840.1.997184.3.579.2 .593 1944 Unknown [id number] 2.16.840.1.404279.3.579.2 .593 1944 Unknown [id number] 2.16.840.1.655817.3.579.2 .593 1944 Unknown [id number] 2.16.840.1.561386.3.579.2 .593 1944 Unknown [id number] 2.16.840.1.089244.3.579.2 .593 1944 Unknown [id number] 2.16.840.1.264847.3.579.2 .593 1944 Unknown [id number] 2.16.840.1.944532.3.579.2 .593 1944 Unknown [id number] 2.16.840.1.717475.3.579.2 .593 1944 Unknown [id number] 2.16.840.1.121314.3.579.2 .593 1944 Unknown [id number] 2.16.840.1.917770.3.579.2 .593 1944 Unknown [id number] 2.16.840.1.564167.3.579.2 .593 1944 Unknown [id number] 2.16.840.1.134229.3.579.2 .593 1944 Unknown [id number] 2.16.840.1.069245.3.579.2 .593 1944 Unknown [id number] 2.16.840.1.833529.3.579.2 .593 1944 Unknown [id number] 2.16.840.1.426206.3.579.2 .593 1944 Unknown [id number] 2.16.840.1.202332.3.579.2 .593 1944 Unknown [id number] 2.16.840.1.544850.3.579.2 .593 1944 Unknown [id number] 2.16.840.1.824560.3.579.2 .593 1944 Unknown [id number] 2.16.840.1.841527.3.579.2 .727 1944 Unknown [id number] 2.16.840.1.352033.3.579.2 .727 1944 Unknown [id number] 2.16.840.1.676779.3.579.2 .727 1944 Unknown [id number] 2.16.840.1.854003.3.579.2 .1259 1944 Unknown [id number] 2.16.840.1.142616.3.579.2 .9 1944 Unknown [id number] 2.16.840.1.042077.3.579.2 .9 1944 Unknown [id number] 2.16.840.1.767032.3.579.2 .1258 1944 Unknown [id number] 2.16.840.1.407613.3.579.2 .196 1944 Unknown [id number] 2.16.840.1.573853.3.579.2 .196 1944 Unknown [id number] 2.16.840.1.126573.3.579.2 . Unknown [id number] Unknown [id number] 2.16.840.1.398599.19 Unknown [id number] Conversion Insurance [id number] Unknown [id number] 2.16.840.1.573422.3.579.2 .531 Unknown [id number] 2.16.840.1.735670.3.579.2 .531 Social History Date Type Detail Facility Start: 05-21-2021 End: 09-16-2023 Tobacco smoking status NHIS Ex-smoker [facility] End: 07-20-1994 History of tobacco use Current smoker [facility] End: 07-20-1994 History of tobacco use Cigar Smoker [facility] Start: 05-21-2021 End: 10-16-2022 Tobacco use and exposure Smokeless tobacco non-user [facility] Start: 10-10-2021 End: 10-15-2023 Alcohol intake Ex-drinker (finding) [facility] Start: 05-21-2021 End: 10-16-2022 Tobacco Comment Quit 15+ years [facility] Start: 1945 Sex Assigned At Not on file [facility] Start: 08-25-2021 End: 09-24-2021 Exposure to SARS-CoV-2 (event) Not sure [facility] Start: 09-16-2022 Tobacco smoking status Never s moked tobacco (finding) [facility] Tobacco smoking status Former sm okeless tobacco user, quit more than 30 days ago [facility] Start: 10-15-2023 Sex Assigned At Male F [facility] Start: 10-15-2023 History of Social function [facility] Start: 1945 Sex Assigned At Male F [facility] Medical Equipment Procedure Code Equipment Code Equipment Origin al Text Equipment Identifier Dates Mesh Parietene Polypropylene Macroporous [id number] Surgical Monofilament - [id number] Start: 09-24-2021 Blood Sugar Diag nostic [...] Date & Type Note Facility 05-04-2024 Note [facility] Cardiology Clinic Note Chief Complaint: Patient [...] common femoral artery. Surgeon: Jyoti Mccurdy Primary Synthetic Cloth Binding Cutter: None. Anesthesia: Local with 1% lidocaine and sedation. EBL: 10 cc Complications: None. 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 Procedure: Patient was brought to the angiogram suite. He was placed on the table in supine position. Left groin area was prepped and draped in the usual sterile fashion. Patient was give (more content not included)... [facility] 10-28-2023 Miscellaneous Notes Returned call and [...] Patient and or can be reached at [phone]. Thank you. Wendi Traore documented in this encounter [facility] 10-15-2023 Note HNO ID: [id number] Author: JAY GONZALEZ MD Service: ? Author Type: Physician Type: Progress Notes Filed: 10/15/2023 13:41 Note Text: [facility] - Follow Up [...] Gonzalez MD 10/15/23, 1:38 PM General Surgery [facility] Medical Decision Making: Problems: Low: Stable chronic illness Risk: Low: Low risk from testing/treatment Medical Decision Making Level: 3 - Low [facility] 08-10-2023 Evaluation note Encounter Date Diagnosis Assessment Notes Jul, Other Summary of Visit: (A) Meal timing (B) DM2 nutrition education (C) Answered general, nutrition-rela maru questions [facility] Other 11-28-2023 Evaluation note* Encounter Date Diagnosis Assessment Notes Treatment Notes Treatment Clinical Notes May, Type 2 diabetes mellitus with hyperglycemia, without long-term current use of insulin (ICD-10 - E11.65) [facility] Other 11-28-2023 Evaluation note* Encounter Date Diagnosis Assessment Notes Treatment Notes Treatment Clinical Notes May, Primary hypertension (ICD-10 - I10) [facility] Other 11-21-2023 Evaluation note* Encounter Date Diagnosis Assessment Notes Treatment Notes Treatment Clinical Notes May, Type 2 diabetes mellitus with hyperglycemia, without long-term current use of insulin (ICD-10 - E11.65) [facility] Other 11-17-2023 Evaluation note* Encounter Date Diagnosis [...] use, the patient reduces the risk for ND, CVA, HTN, cardiac dysrhythmias and sudden cardiac [...] index [BMI] 39.0-39.9, adult (ICD-10 - Z68.39) [facility] Other 11-08-2023 Evaluation note* Encounter Date Diagnosis Assessment Notes Treatment Notes Treatment Clinical Notes May, Primary hypertension (ICD-10 - I10) [facility] Other 10-29-2023 Evaluation note* Encounter Date Diagnosis Assessment Notes Treatment Notes Treatment Clinical Notes Apr, Type 2 diabetes mellitus with hyperglycemia, without long-term current use of insulin (ICD-10 - E11.65) Apr, Primary hypertension (ICD-10 - I10) [facility] Other 10-19-2023 Evaluation note* Encounter Date Diagnosis Assessment Notes Treatment Notes Treatment Clinical Notes Apr, Type 2 diabetes mellitus with hyperglycemia, without long-term current use of insulin (ICD-10 - E11.65) [facility] Other 10-18-2023 Evaluation note* Encounter Date Diagnosis Assessment Notes Treatment Notes Treatment Clinical Notes Apr, ASHD (arteriosclerotic heart disease) (ICD-10 - I25.10) This patient is stable without activity related CP, dyspnea or lightheadedness. They are instructed to continue exercise and AHA diet plan. Continue secondary prevention measures. Sexual Abuse Counsellor suggesting SGLT-2 for dual benefit w/ ASHD [...] contributed. 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 Inspect feet daily for cuts. Continue secondary prevention measures. Scheduled post op JAMIR [facility] Other 10-18-2023 Evaluation note* Encounter Date Diagnosis Assessment Notes Treatment Notes Treatment Clinical Notes Apr, Type 2 diabetes mellitus with hyperglycemia, without long-term current use of insulin (ICD-10 - E11.65) [facility] Other 08-22-2023 Evaluation note* Encounter Date Diagnosis [...] use, the patient reduces the risk for ND, CVA, HTN, cardiac dysrhythmias and sudden cardiac [...] [BMI ] 39.0-39.9, adult (ICD-10 - Z68.39) [facility] Other 05-31-2023 NoteOPERATIVE NOTE OPERATION DATE: 11/29/2022 [...] in three years. CC: Juancarlos Cuenca D.O.[facility] [id number] NotePROCEDURE: XR HIP LT 2 3V WO PELVIS HISTORY: Pain of left hip joint COMPARISON: None. FINDINGS: BONES:No fracture, acute abnormality, or significant arthropathy. SOFT TISSUES:No visible soft tissue swelling. EFFUSION:None visible. OTHER: Negative. IMPRESSION: 1. No acute bone abnormality. 2. Mild degenerative joint disease. Electronically authenticated by: GABY PADILLA Date: 2022-11-28 13:08[facility]04-11-2023 NoteCONSULTATION CONSULTATION DATE: 10/28/2022 TO: Juancarlos [...] our patients to inform us about any vlfp-dtc-lwbztff medications or herbal remedies/nutritional supplements/alternative remedies. 2. [...] treatment options with their primary care provider.[facility] [id number] History of Present illness Narrative* Jay Gonzalez MD - 10/16/2022 2:38 PM EDT [facility] Health - Follow Up [...] Gonzalez MD 10/16/22, 2:45 PM General Surgery [facility] * Destiny Zapata MA - 10/16/2022 1:09 PM EDT What is the reason for your visit today? Follow up 1 year Who is your referring physician? Are you having poor oral intake? NO Have you had unintentional weight loss of 15 lbs/7 Kg in the last 3-6 months? NO Bowels: regular Wound: Temperature: No Drains: No [facility] Miscellaneous Notes* Allied Health - [...] 11, 2022 10:29 AM documented in this encounterF[facility]03-21-2023 Miscellaneous Notes* Telephone Encounter - [...] or so at a non facility. PH: [phone] documented in [facility] encounterF[facility]02-24-2023 Evaluation note* Encounter Date Diagnosis Assessment Notes Treatment Notes Treatment Clinical Notes Aug, Left carotid artery stenosis (ICD-10 - I65.22) US: right <50%, left 50-69% - 10/2020 US: right <50%, left 80-90% - 08/2022 [facility] Other 02-20-2023 Evaluation note* Encounter Date Diagnosis [...] use, the patient reduces the risk for ND, CVA, HTN, cardiac dysrhythmias and sudden cardiac [...] reviewed and amended by provider signed below. [facility] Other 01-12-2023 NoteCONSULTATION PROCEDURE DATE: 09/18/2022 PREOPERATIVE [...] will be followed up in the office.[facility] [id number] NoteCONSULTATION CONSULTATION DATE: 07/31/2022 HISTORY OF PRESENT [...] and the patient agrees with this plan.[facility] 05-29-2022 NoteCONSULTATION CONSULTATION DATE: 05/29/2022 HISTORY OF [...] be followed up in the clinic thereafter.[facility] [id number] NoteCONSULTATION CONSULTATION DATE: 04/24/2022 This is a [...] 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 A refill for Baclofen 10 mg q.h.s. [...] knee osteoarthritis. The patient is in agreement.[facility] [id number] Note CONSULTATION CONSULTATION DATE: 03/25/2022 CHIEF COMPLAINT: [...] patient understands and would like to proceed.[facility] 01-27-2022 Nurse Note* Sarah Osman MA - [...] Temperature: No Drains: No documented in this encounterF[facility]07-[facility]-2022 History of Present illness Narrative* [...] needed. Jus Medina MD documented in this encounterF[facility]03-25-2022 Miscellaneous Notes* Telephone Encounter - Shan Parham - 10/11/2021 3:09 PM EDTSummary: IRB#: [id number] Research Outreach IRB# [id number], Qualitative Interviews in Postoperative Gastrointestinal Dysfunction (POGD). PI: Shilpa Storm MD, SANJIV, FASA. Outcomes Research Department. Anesthesia [place]. This is a research study note. Patient [...] there for his review. Shan Parham Research Synthetic Cloth Binding Cutter Anesthesiology [place] Outcomes Research Department documented in this encounterFayette [facility]03-24-2022 History of Present illness Narrative* Jay Gonzalez MD - 10/10/2021 1:37 PM EDT [facility] - Follow Up [...] the care that he received while at [facility]. Objective: AAOx3, NAD Non-labored respirations on room [...] Gonzalez MD 10/10/21, 1:37 PM General Surgery [facility] documented in this encounterF[facility]03-24-2022 History of Present illness Narrative* Jus Medina MD - 10/10/2021 11:00 AM EDT HPI Lizzy Yee is a 75 year old male here today for postop Open subtotal colectomy with stapled aivl-xa-rpag ileosigmoid anastomosis ventral herniorrhaphy with transversus abdominus [...] months Jus Medina MD documented in this encounterFayette [facility]03-24-2022 Nurse Note* Elena Ferrell MA - 10/10/2021 10:45 AM EDT What is the reason for your visit today? Follow up Who is your referring physician? Self Are you having poor oral intake? NO Have you had unintentional weight loss of 15 lbs/7 Kg in the last 3-6 months? 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 documented as of this encounter (statuses as of 10/11/2021) [address]08-2022 History of Past illness Narrative* Problem Noted Date Resolved Date 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 documented as of this encounter (statuses as of 02/05/2022) [address]08-2022 History of Past illness Narrative* Problem Noted Date Resolved Date 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 documented as of this encounter (statuses as of 10/07/2022) [address]08-2022 History of Past illness Narrative* Problem Noted Date Resolved Date 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 documented as of this encounter (statuses as of 10/12/2022) [address]08-2022 History of Past illness Narrative* Problem Noted Date Resolved Date 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 Name: Lizzy Yee Admitted: 12/26/2020 Discharged: 12/29/2020 Date of : 1945 Physician: Ty Avalos M.D. DISCHARGE SUMMARY [facility] Pt. Name: Kurt Yee Admitted: 12/26/20 [...] CONDITION AT DISCHARGE: Stable DISPOSITION: Home with [facility] DISCHARGE INSTRUCTIONS: Take medications as prescribed, follow [...] Cano MD Date Trans: 12/29/2020 08:18 P/ [id number] cc: Juancarlos Cuenca D.O. [address] [place] [id number] Health Miami [facility] Hospital NorthEvalunemours foundation + Plan note No data available for this section [facility]* Diagnosis Ventral incisional hernia- Primary documented in this encounter [facility] note* Diagnosis Polyposis of colon- Primary Benign neoplasm of colon documented in this encounter [facility] note* Diagnosis Polyposis of colon- Primary Benign neoplasm of colon Incisional hernia, without obstruction or gangrene Incisional hernia without mention of obstruction or gangrene documented in this encounter [facility] noteNo [facility] Other Evaluation note* Diagnosis Ventral incisional hernia documented in this encounter [facility] note* Diagnosis Ventral incisional hernia- Primary documented in this encounter [facility] note* Diagnosis Onset Date Resolution Status ASHD (arteriosclerotic heart disease) acute Elevated cholesterol acute NARINDER (generalized anxiety disorder) acute Obesity acute Obstructive sleep apnea acut e Primary hypertension acute [id number] acute [id number] acute ASHD (arteriosclerotic heart disease) acute Elevated cholesterol acute Obstructive sleep apnea acut e Primary hypertension acute Type 2 diabetes mellitus wit h diabetic peripheral angiopathy without gangrene acute 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 Type 2 diabetes mellitus with hyperglycemia acute [facility] Work Phone: Evaluation note* Diagnosis Onset Date Resolution Status ASHD (arteriosclerotic heart disease) acute Elevated cholesterol acute NARINDER (generalized anxiety disorder) acute Obesity acute Obstructive sleep apnea acut e Primary hypertension acute [id number] acute ASHD (arteriosclerotic heart disease) acute Elevated cholesterol acute Obstructive sleep apnea acut e Primary hypertension acute Type 2 diabetes mellitus wit h diabetic peripheral angiopathy without gangrene acute 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 Type 2 diabetes mellitus with hyperglycemia acute Primary osteoarthritis of left knee acute [facility] Work Phone: History general Narrative [...] RIGHT HEMICOLECTOMY 2003 Hospitalization History SEE SURGICAL [facility] Other [employer] general Narrative - Reported* Type Description Date [...] History Colonoscopy 12/2022 Hospitalization History SEE SURGICAL [facility] Other [employer] general Narrative - Reported* Type Description Date [...] anaya 03/2023 Hospitalization History SEE SURGICAL HX [facility] Other Hospital Discharge instructions No data available for this section [facility]Progress note No data available for this section [facility] CenterReason for referral (narrative)* Reason 10/09/22 Referral for carotid artery stenosis Diagnosis 1 Left carotid artery stenosis (I65.22) Referral Organization [facility] nemo Referring Provider First Name Juancarlos Referring Provider Last Name Bang Referring Provider Specialty Internal Me dicine Ref[facility] Organization [facility] Referred Provider Jyoti Mccurdy Referred Address [address], [place],[address] Referred Provider Specialty Vascular Ruslan kajal Referral [...] scheduled on 10/09 at 10 a.m. at [place] office Clinical Notes Mr. Hooper is being r eferred for further evaluation and treatment of left carotid artery stenosis. He has multiple risk factors, including HTN, HLD, DM and PAD. He has no history of TIA or CVA. He denies diplopia, loss of vision, dysarthria, facial droop or unilateral extremity weakness. F: [id number] [facility] Other Summary Purpose Family History No Family [...] FoundDocuments on File Type Date Recorded Patient Bilingual Spanish Inbound Sales Expl anation Advance Directive(s) 09/24/2021 8:40 AM Advance Directive(s) 06/07/2021 10:19 AM Advance Directive(s) 05/15/2021 3:36 PM M ain Documents on File Type Date Recorded Patient Bilingual Spanish Inbound Sales Expl anation Advance Directive(s) 09/24/2021 8:40 AM Advance Directive(s) 06/07/2021 10:19 AM Advance Directive(s) 05/15/2021 3:36 PM M ain Documents on File Type Date Recorded Patient Bilingual Spanish Inbound Sales Expl anation Advance Directive(s) 09/24/2021 8:40 AM Documents on File Type Date Recorded Patient Bilingual Spanish Inbound Sales Expl anation Advance Directive(s) 09/24/2021 8:40 AM Advance Directive Response Recorded Date/ Time Advance Directives No August 05, 2023 12:06pm Reason for Referral Specialty Diagnoses / Procedures Referred By Olegario t Referred To Contact CT IMAGING Diagnoses Ventral incisional hernia Procedures CT ABD/PEL WO IVCON CT ABD & PELVIS W/O CONTRAST Jay Gonzalez MD [address] [place] [address] Ct Imaging Referral ID Status Reason Start Date Expiration Date Visits Requested Visits Authorized [id number] Pending Review Auto-Generat ed Referral 10/10/2022 11/09/2022 1 1 Referral ID Status Reason Start Date Expiration Date V isits Requested Visits Authorized [id number] Closed Auto-Generate d Referral 10/10/2022 11/09/2022 1 1 Specialty Diagnoses / Procedures Referred By Olegario t Referred To Contact CT IMAGING Diagnoses Ventral incisional hernia Procedures CT ABD/PEL WO IVCON CT ABD & P[place] [address] [place] [address] Ct Imaging Referral ID Status Reason Start Date Expiration Date Visits Requested Visits Authorized [id number] Pending Review Auto-Generat ed Referral 10/16/2022 11/15/2023 1 1 Chief Complaint and Reason for Visit Chief Complaint WMN f/u DL 10-14 day DS 3 month follow up Reason for Visit ASHD (arteriosclerot ic heart disease) Elevated cholesterol NARINDER (generalized anxiety disorder) Obesity Obstructive sleep apnea Primary hypertension [id number] ASHD (arteriosclerotic heart disease) Elevated cholesterol Obstructive [...] disorder) Obesity Obstructive sleep apnea Primary hypertension [id number] ASHD (arteriosclerotic heart disease) Elevated cholesterol Obstructive [...] section and content) DATE CREATED AUTHOR 03/11/[address] [facility] DATE CREATED AUTHOR AUTHOR'S ORGANIZ ATION 10/13/2022 [facility] DATE CREATED AUTHOR AUTHOR'S ORGANIZ ATION 12/29/2022 [facility] DATE CREATED AUTHOR AUTHOR'S ORGANIZ ATION 12/29/2022 [facility] DATE CREATED AUTHOR AUTHOR'S ORGANIZ ATION 10/29/2023 [facility] DATE CREATED AUTHOR AUTHOR'S ORGANIZ ATION 03/26/2024 [facility] DATE CREATED AUTHOR AUTHOR'S ORGANIZ ATION 04/18/2024 [facility] DATE CREATED AUTHOR AUTHOR'S ORGANIZ ATION 04/23/2024 [facility] DATE CREATED AUTHOR AUTHOR'S ORGANIZ ATION 05/14/2024 [facility] Source Comments (unrecognize d section and content) In the event this informatio n is protected by the Federal Confidentiality of Alcohol and Drug Abuse Patient Records regulations: The Federal rules restrict any use of the information to criminally investigate or prosecute any alcohol or drug abuse patient.[facility] HospitalIn the event this information is protected by the Federal Confidentiality of Alcohol and Drug Abuse Patient Records regulations: The Federal rules restrict any use of the information to criminally investigate or prosecute any alcohol or drug abuse patient.[facility] HospitalIn the event this information is protected by the Federal Confidentiality of Alcohol and Drug Abuse Patient Records regulations: The Federal rules restrict any use of the information to criminally investigate or prosecute any alcohol or drug abuse patient.[facility] HospitalIn the event this information is protected by the Federal Confidentiality of Alcohol and Drug Abuse Patient Records regulations: The Federal rules restrict any use of the information to criminally investigate or prosecute any alcohol or drug abuse patient.[facility] HospitalIn the event this information is protected by the Federal Confidentiality of Alcohol and Drug Abuse Patient Records regulations: The Federal rules restrict any use of the information to criminally investigate or prosecute any alcohol or drug abuse patient.[facility] HospitalIn the event this information is protected by the Federal Confidentiality of Alcohol and Drug Abuse Patient Records regulations: The Federal rules restrict any use of the information to criminally investigate or prosecute any alcohol or drug abuse patient.[facility] HospitalIn the event this information is protected by the Federal Confidentiality of Alcohol and Drug Abuse Patient Records regulations: The Federal rules restrict any use of the information to criminally investigate or prosecute any alcohol or drug abuse patient.[facility] HospitalIn the event this information is protected by the Federal Confidentiality of Alcohol and Drug Abuse Patient Records regulations: The Federal rules restrict any use of the information to criminally investigate or prosecute any alcohol or drug abuse patient.[facility] HospitalIn the event this information is protected by the Federal Confidentiality of Alcohol and Drug Abuse Patient Records regulations: The Federal rules restrict any use of the information to criminally investigate or prosecute any alcohol or drug abuse patient.[facility] Reason for Visit (unrecogniz ed [...] & PELVIS W/O CONTRAST Jay Gonzalez MD [address] [place] [id number] Imaging Referral ID Status Reason Start Date Expiration Date V isits Requested Visits Authorized [id number] Closed Auto-Generate d Referral 10/10/2022 11/09/2022 1 [...] 24, 2024 End: February 24, 2024 Jory Cee APRN Attending Provider Active Start: February 24, 2024 [...] April 21, 2024 End: April 21, 2024 Golf [employer]ie Relationship Specialty Start Date End Date Juancarlos Cuenca DO PCP - General Internal Medicine 10/23/14 [facility] [address] [place] [id number] Cardiology 09/13/21 [employer]ie Relationship Specialty Start Date End Date Juancarlos Cuenca DO PCP - General Internal Medicine 10/23/14 [facility] [address] [place] [phone] Cardiology 09/13/21 [employer]ie Relationship Specialty Start Date End Date Juancarlos Cuenca DO PCP - General Internal Medicine 10/23/14 Pedro Richardson [address] [place] [phone] Cardiology 09/13/21 [employer]ie Relationship Specialty Start Date End Date Juancarlos Cuenca, DO PCP - General Internal Medicine 10/23/14 Pedro Richardson MD Cardiology 09/13/21 [employer]ie Relationship Specialty Start Date End Date Juancarlos Cuenca, DO PCP - General Internal Medicine 10/23/14 Pedro Richardson MD Cardiology 09/13/21 [employer]ie Relationship Specialty Start Date End Date Juancarlos Cuenca, DO PCP - General Internal Medicine 10/23/14 Pedro Richardson MD Cardiology 09/13/21 [employer]ie Relationship Specialty Start Date End Date Juancarlos Cuenca DO PCP - General Internal Medicine 10/23/14 Pedro Richardson MD Cardiology 09/13/21 [employer]ie Relationship Specialty Start Date End Date Juancarlos Cuenca DO PCP - General Internal Medicine 10/23/14 Pedro Richardson MD Cardiology 09/13/21 [employer]ie Relationship Specialty Start Date End Date Juancarlos [...] BE BASED ON THE PRIMARY CLINICAL RECORDS. [employer] [facility] provides no warranty or guarantee of the accuracy or completeness of information in this document.
== END 2024-05-19 14:37 | disposition home or self-care (01) ==
LOC: MRI 14:36
PROVIDERS: PCP Internal Medicine; Visit Provider Nurse Practitioner
DX: M48.062 Spinal stenosis, lumbar region with neurogenic claudication (principal); M51.369 Other intervertebral disc degeneration, lumbar region without mention of lumbar back pain or lower extremity pain
CPT/HCPCS: 72148

== ENCOUNTER 2024-05-25 11:40 | Outpatient (OUT) | payer MEDICARE, SELFPAY ==
--- OUTSIDE RECORDS SUMMARY | 2024-05-25 11:51 | XMS_ITS | CCD ---
Author Organization [facility] Care Team Providers Care Sulfonator Operator Name Role Phone JUANCARLOS CUENCA Referring Unavailable JUANCARLOS CUENCA Primary Care Unavailable Delonte Webb Admitting Unavailable Delonte Webb Attending Unavailable JUANCARLOS CUENCA Referring Unavailable TY AVALOS Surgeon Unavailable TY AVALOS Admitting Unavailable JUANCARLOS CUENCA Primary Care Unavailable TY AVALOS Attending Unavailable SC Procedure Practitioner Unavailab Juancarlos Delatorre DO Primary Care Provider Pedro Richardsonmed Unavailable [phone] Dylan VANESSA, ab Ahmed Unavailable JUANCARLOS CUENCA [...] Morphine; Translations: [morphine] Drug Allergy Unknown [facility] Repository (1 source) Morphine Drug Allergy 12-08-2023 [facility] Repository Medications Current Medications Medication Drug [...] CPAP (9 sources) CPAP daily at be dtila. 0 Active Comment on above: daily at [...] 2023 10:53am take 1 capsule by mo [facility] every twenty-four hours Gabapentin 100 MG 1 [...] 04, 2023 10:54am take [facility] tablet [facility] every twelve hours Meclizine HCl 25 [...] 04, 2023 10:55am take 1 tablet by [facility] every twenty-four hours Ondansetron 4 MG [...] Comment on above: TAKE 1 TABLET BY [facility] EVERYDAY AT BEDTIME tamsulosin hydrochloride 0.4 mg oral capsule (6 sources) alpha-Adrenergic Ciera Start: 2 End: 2 take 1 capsule by mouth once daily tamsulosin (FLOMAX) 0.4 mg Take 1 capsule by mouth once daily. 30 capsule 0 10/01/2021 Active Comment on above: Take 1 capsule by mo [facility] once daily. 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) use of antithrombotics/antip latelets] 09-13-2021 Episodic [...] and visceral atherosclerosis (17 sources) Atherosclerosis of [place] arteries of extremities with rest pain, right leg; Translations: [Atherosclerosis of [place] artery of right lower extremity with rest [...] without hemorrhage] Other aftercare (3 sources) Other lobsterman (current) drug therapy; Translations: [OTH BOX TENDER CURRENT DRUG THERAPY] Onset: 09-17-2022 Episodic Other [...] mailed to patient to complete june/ july [facility] 36on 05-12-2024 36 Patient calling for echo and lab results. They are scanned into his media account executive. Please advise. Thanks. [facility] Office Visiton 05-04-2024 Follow-up visit [id number] Vu Yee Jorge 1945 M Date Provider Department Center 05/04/2024 Flores-PEDRO RICHARDSON Family History Problem Relation Age of Onset Coronary artery disease Mother Coronary artery disease Brother Family Status - Relation Status Age at Mother Brother Level of Service:92452 SC OFFICE/OUTPATIENT ESTABLISHED MOD MDM 30 MIN [facility] XR knee LT 4V*on 04-21-2024 XR knee LT 4V* [facility] [address] [place] [address] XRay Report Signed Patient: Lizzy Yee MR#: [id number] : 1945 Acct:[id number] Age/Sex: 78 / M ADM Date: 04/21/24 [place] [facility] [place]: Type: [facility] Attending Dr: Ej Anthony II, MD Copies to: Ej Anthony MD Ordering Provider: Ej Anthony MD Date of Service: 04/21/24 XR/XR pelvis 1-2V: M25.562 - Pain in left knee ([id number]) XR/XR knee LT 4V*: M25.562 - Pain [...] Jimenez Jr., D.O.04/21/2024 2:51 PM Dictation Location: [place] [address] Transcribed By: [facility] 04/21/24 1451 Dictated By: Jus Jimenez Jr, DO 04/21/24 1449 Signed By: 04/21/24 1451 Normal The Pending Sale To [facility] Keyshawn 10-27-2023 ANISHA Telephone ([facility]) LIZZY YEE ([id number]) 1945 M Date Time Provider Department 10/27/23 [...] Patient and or can be reached at [phone]. Thank you. Efrain Loza, NILAM 10/28/2023 8:30 [...] Encounter Status:Closed by EFRAIN ZAMARRIPA on 10/28/23 [facility] Babs 10-15-2023 [facility] Office Visit ([facility] ) LIZZY YEE ([id number]) 1945 M Date Time Provider Department 10/15/23 1:00 PM JAY GONZALEZ [facility] During your visit today, we recorded the following information about you: Temperature Pulse Blood pressure 97.3 degrees 53/minute 127/65 Jay Gonzalez MD 10/15/2023 1:41 PM Signed [facility] - Follow Up Visit Assessment/Plan: [...] Gonzalez MD 10/15/23, 1:38 PM General Surgery [facility] Medical Decision Making: Problems: Low: Stable [...] HLD (hyperlipidemi (more content not included)... Normal [facility] Cholesterol in LDL Calc [Mas s/Vol]on 10-09-2023 Cholesterol in LDL [Mass/Vol] 46.6 mg/dL [facility] Comment on above: <100 mg/dl [id number] 0-129 mg/dl NEAR OR ABOVE [id number] mg/dl BORDERLINE [id number] mg/dl HIGH>190 mg/dl VERY HIGH Cholesterol in VLDL Calc [Ma ss/Vol]on 10-09-2023 Cholesterol in VLDL [Mass/Vol] 14.4 mg/dL [facility] Estimated glomerular filtrat ion rate (GFR) non- Americanon 10-09-2023 GFR/1.73 sq M.predicted among non-blacks MDRD (S/P/Bld) [Vol rate/Area] 54 mL/min/{1.73_m2} >=60 [facility] Globulin Calc (S) [Mass/Vol] on 10-09-2023 Globulin (S) [Mass/Vol] 3.9 g/dL [facility] Glucose mean value [Mass/vol ume] in Blood Estimated from glycated hemoglobinon 10-09-2023 Average glucose Estimated from glycated hemoglobin (Bld) [Mass/Vol] 186 mg/dL [facility] Laboratory - Chemistry and C hemistry - challengeon 10-09-2023 Albumin [Mass/Vol] 3.4 g/dL 3.4-5.0 [facility] ALP [Catalytic activity/Vol] 210 U/L 46-116 [facility] ALT [Catalytic activity/Vol] 236 U/L 16-63 [facility] AST [Catalytic activity/Vol] 169 U/L 15-37 [facility] Bilirubin [Mass/Vol] 0.8 mg/dL 0.2-1.0 [facility] Calcium [Mass/Vol] 9.1 mg/dL 8.5-10.1 [facility] Chloride [Moles/Vol] 101 mmol/L 98-107 [facility] Cholesterol [Mass/Vol] 107 mg/dL <=200 [facility] Cholesterol in HDL [Mass/Vol] 46 mg/dL 40-60 [facility] Comment on above: > or =60 mg/dl - LOW CARDIOVASCULAR RISK<40 mg/dl - HIGH CARDIOVASCULAR RISK CO2 [Moles/Vol] 28.4 mmol/L 21.0-32.0 [facility] Creatinine [Mass/Vol] 1.29 mg/dL 0.70-1.30 [facility] GFR/1.73 sq M.predicted MDRD (S/P/Bld) [Vol rate/Area] mL/min/{1.73_m2} >=60 [facility] Glucose [Mass/Vol] 100 mg/dL 74-106 [facility] Potassium [Moles/Vol] 4.1 mmol/L 3.5-5.1 [facility] Protein [Mass/Vol] 7.3 g/dL 6.4-8.2 [facility] Sodium [Moles/Vol] 140 mmol/L 136-145 [facility] Triglyceride [Mass/Vol] 72 mg/dL <=150 [facility] Urea nitrogen [Mass/Vol] 23.0 mg/dL 7.0-18.0 [facility] Urea nitrogen/Creatinine [Mass ratio] 17.8 mg/mg [facility] Laboratory - Hematology and Cell countson 10-09-2023 HbA1c (Bld) [Mass fraction] 8.1 % 4.5-6.2 [facility] Comment on above: ADA RECOMMENDED LIMI T 4.0 - 6.0ADA THERAPEUTIC TARGET < 7.0ACTION SUGGESTED> 7.0 Microalbumin [Mass/volume] i n Urineon 10-09-2023 Albumin DL <= 20 mg/L (U) [Mass/Vol] mg/dL <=30.0 [facility] No Panel Informationon 10-08 Prostate Specific Antigen Screen 0.27 ng/mL <=4.00 [facility] Serum or plasma albumin/glob ulin mass ratioon 10-09-2023 Albumin/Globulin [Mass ratio] 0.9 {ratio} [facility] Serum or plasma anion gap de terminationon 10-09-2023 Anion gap [Moles/Vol] 14.7 mmol/L Fi [facility] Serum or plasma total choles terol/high density lipoprotein (HDL) cholesterol mass venu 10-09-2023 Cholesterol.total/Cho lesterol in HDL [Mass ratio] 2.3 {ratio} [facility] Comment on above: 3.3 - 4.4 LOW RISK4. 4 - 7.1 AVERAGE RISK7.1 - 11.0 MODERATE RISK>11.0 HIGH RISK Outside Colonoscopyon 2022 Outside Colonoscopy [id number] 0CD:127 Normal [facility] Reminderson 12-18-2022 Reminders - From: Amy Menon LPN To: GSN - Clinical; Sent: 12/18/2022 12:06:16 EDT Show up: 11/16/2025 07:00:00 EDT Subject: colonoscopy recall Due Date/Time: 12/17/2025 07:00:00 EDT Reminder/Recall Patient due for surveillance colonoscopy 12/17/2025. Normal [facility] POINT OF CARE GLUCOSEon 11-19 Glucose [Mass/Vol] 176 mg/dL Critically high 74-106 [facility] Comment on above: Performed By: #### P OCGLUC #### [facility] [address] [place] [address] [address] Rojelio Kingsley POINT OF CARE GLUCOSEon 11-19 Glucose [Mass/Vol] 157 mg/dL Critically high 74-106 [facility] Comment on above: Performed By: #### P OCGLUC #### [facility] [address] [place] [address] [address] Rojelio Kingsley Consent for Procedure/Surger yon 12-03-2022 Consent for Procedure/Surgery [id number] 0CD:127 Normal [facility] Physician Referralon 023 Physician Referral [id number] 0CD:127 Normal [facility] General Surgery Office/Clini c Noteon 12-02-2022 [...] anastomosis and ventral hernia repair 09/2021 at [facility], they recommend yearly surveillance sigmoidoscopies; [...] tab(s), (more content not included)... Normal [facility] Comment on above: Result Comment: Elec tronically Signed By: PELON VANESSA, Nya Patel\.marion\Date and Time Signed: 12/02/22 11:37 EDT POINT OF CARE GLUCOSEon - Glucose [Mass/Vol] 121 mg/dL Critically high 74-106 [facility] Comment on above: Performed By: #### P OCGLUC #### [facility] [address] [place] [address] [address] [facility]jel[facility] Kings[facility] ID: [id number] Author: Glenda Romo RT(R) Service: Radiology Author [...] Romo, RT(R) October 11, 2022 10:[address] [facility] CT ABD/PEL WO IVCONon 2022 CT ABD/PEL WO IVCON * * *Final Report* * * DATE OF EXAM: Oct 11 2022 10:30AM [facility] 0531 - CT ABD/PEL WO IVCON [...] site. Lower thorax: Lower lungs are clear. Soil Sampler (topogram) images: Unremarkable. IMPRESSION: Midline fat-containing upper abdominal hernia. Occ Med Physician: DANIEL Transcribe Date/Time: Oct 13 2022 7:57A Dictated by : YANICK RIVAS MD This examination was interpreted and the report reviewed and electronically signed by: YANICK RIVAS MD on Oct 13 2022 8:06AM EST [id number] Normal [facility] Consent for Procedure/Surger yon 09-17-2022 Consent for Procedure/Surgery [id number] 0CD:127 Normal [facility] RAD - Ultrasound Reporton RAD - Ultrasound Report [id number] 0CD:127 Normal [facility] Ambulatory Visit Summaryon 0 09-16-2022 Ambulatory [...] longer receiving treatment for. Hyperlipidemia Rajani [facility] Ambulatory Visit Summary LIZZY YEE :1945 [...] longer receiving treatment for. Hyperlipidemia Normal [facility] General Surgery Office/Clini c Noteon 09-16-2022 [...] anastomosis and ventral hernia repair 09/2021 at [facility]; requires yearly flexible sigmoidoscopy for [...] Nathalie (more content not included)... Normal [facility] Comment on above: Result Comment: Elec tronically Signed By: PELON VANESSA, Nya Nicholson\Date and Time Signed: 09/16/22 11:17 EST Alanine Aminotransferaseon 0 - ALT [Catalytic activity/Vol] 30 U/L Normal 16-63 [facility] Other Comment on above: Performed By: #### B MP, ALT, LIPID #### [facility] [address] [place] [address] [address] Rojelio Kingsley Basic Metabolic Panelon 08-21 Calcium [Mass/Vol] 9.6677813 mg/dL 8.5-10 .1 mg/dL [facility] Other CO2 [Moles/Vol] 25.86038048 mmol/L 21.0-3 2.0 mmol/L [facility] Other Creatinine [Mass/Vol] 1.41125352 mg/dL Critically high 0.70-1.30 mg/dL [facility] Other Potassium [Moles/Vol] 4.75053121 mmol/L 3 .5-5.1 mmol/L [facility] Other Urea nitrogen [Mass/Vol] 16.6530117 mg/dL 7.0-18.0 mg/dL [facility] Other Basic Metabolic Panel see note [employer] Other Basic Metabolic Panel 141 mmol/L 136-14 5 mmol/L [facility] Other Basic Metabolic Panel 134 mg/dL Critically high 74-106 mg /dL [facility] Other Basic Metabolic Panel 51 mL/min/1.73m2 Critically low >=60 mL/min/1.73m 2 [facility] Other Basic Metabolic Panel >60 mL/min/1.73m2 > =60 mL/min/1.73m 2 [facility] Other Anion gap [Moles/Vol] 15.2 mmol/L [facility] Other Comment on above: Performed By: #### B MP, ALT, LIPID #### [facility] [address] [place] [address] Dr. Rojelio Kingsley Chloride [Moles/Vol] 105 mmol/L Normal 98-107 [facility] Other Comment on above: Performed By: #### B MP, ALT, LIPID #### [facility] [address] [place] [address] Dr. Rojelio Kingsley Urea nitrogen/Creatinine [Mass ratio] 11.8 mg/mg Normal [facility] Other Comment on above: Performed By: #### B MP, ALT, LIPID #### [facility] [address] [place] [address] Dr. Rojelio Kingsley CBC AUTO DIFFon 09-12-2022 BASO # 0.0 103/ul Normal 0.0-0.1 [facility] Comment on above: Performed By: #### C BC #### [facility] [address] [place] [address] Dr. Rojelio Kingsley Basophils/100 WBC (Bld) 0.4 % Normal 0.2-2.0 [facility] Comment on above: Performed By: #### C BC #### [facility] [address] [place] [address] Dr. Rojelio Kingsley EO # 0.3 103/ul Normal 0.0-0.7 [facility] Comment on above: Performed By: #### C BC #### [facility] [address] [place] [address] Dr. Rojelio Kingsley Eosinophils/100 WBC (Bld) 3.6 % Normal 0.9-7.0 [facility] Comment on above: Performed By: #### C BC #### [facility] [address] [place] [address] Dr. Rojelio Kingsley Erythrocyte distribution width (RBC) [Ratio] 14.1 % Normal 11.0-15.0 [facility] Comment on above: Performed By: #### C BC #### [facility] [address] [place] [address] Dr. Rojelio Kingsley Hematocrit (Bld) [Volume fraction] 40.1 % Critically low 42.0-54.0 [facility] Comment on above: Performed By: #### C BC #### [facility] [address] [place] [address] Dr. Rojelio Kingsley Hemoglobin (Bld) [Mass/Vol] 13.4 g/dL Critically low 14.0-18.0 [facility] Comment on above: Performed By: #### C BC #### [facility] [address] [place] [address] Dr. Rojelio Kingsley IG # 0.02 10e3/ul Normal 0.00-0.03 [facility] Comment on above: Performed By: #### C BC #### [facility] [address] [place] [address] Dr. Rojelio Kingsley IG % 0.2 % Normal 0.0-0.5 [facility] Comment on above: Performed By: #### C BC #### [facility] [address] [place] [address] Dr. Rojelio Kingsley LYMPH # 1.8 103/ul Normal 1.2-3.8 [facility] Comment on above: Performed By: #### C BC #### [facility] [address] [place] [address] Dr. Rojelio Kingsley Lymphocytes/100 WBC (Bld) 21.9 % Normal 20.5-60.0 [facility] Comment on above: Performed By: #### C BC #### [facility] [address] [place] [address] Dr. Rojelio Kingsley MANUAL DIFF REQ NO Normal [facility] Comment on above: Performed By: #### C BC #### [facility] [address] [place] [address] Dr. Rojelio Kingsley MCH (RBC) [Entitic mass] 30.6 pg Normal 25.9-34.0 [facility] Comment on above: Performed By: #### C BC #### [facility] [address] [place] [address] [address] Rojelio Kingsley MCHC (RBC) [Mass/Vol] 33.4 g/dL Normal 29.9-35.2 [facility] Comment on above: Performed By: #### C BC #### [facility] [address] [place] [address] Dr. Rojelio Kingsley MCV (RBC) [Entitic vol] 91.6 fL Normal 80.0-94.0 [facility] Comment on above: Performed By: #### C BC #### [facility] [address] [place] [address] Dr. Rojelio Kingsley MONO # 0.8 103/ul Normal 0.3-0.8 [facility] Comment on above: Performed By: #### C BC #### [facility] [address] [place] [address] Dr. Rojelio Kingsley Monocytes/100 WBC (Bld) 9.3 % Normal 1.7-12.0 [facility] Comment on above: Performed By: #### C BC #### [facility] [address] [place] [address] Dr. Rojelio Kingsley NEUT # 5.4 103/ul Normal 1.4-6.5 [facility] Comment on above: Performed By: #### C BC #### [facility] [address] [place] [address] Dr. Rojelio Kingsley Neutrophils/100 WBC (Bld) 64.6 % Normal 43.0-75.0 [facility] Comment on above: Performed By: #### C BC #### [facility] [address] [place] [address] Dr. Rojelio Kingsley Platelet mean volume (Bld) [Entitic vol] 10.3 fL Normal 9.5-13.5 [facility] Comment on above: Performed By: #### C BC #### [facility] [address] [place] [address] Dr. Rojelio Kingsley PLT 214 103/ul Normal 150-450 [facility] Comment on above: Performed By: #### C BC #### [facility] [address] [address] [address] Rojelio Kingsley RBC 4.38 106/ul Critically low 4.70-6.10 [facility] Comment on above: Performed By: #### C BC #### [facility] [address] [address] [address] Rojelio Kingsley WBC 8.4 103/ul Normal 4.0-11.0 [facility] Comment on above: Performed By: #### C BC #### [facility] [address] [address] [address] Rojelio Kingsley GLYCOHEMOGLOBIN A1Con 2022 ADA RECOMMENDATION SEE BELOW Normal [facility] Comment on above: Result Comment: ADA RECOMMENDED LIMIT 4.0 - 6.0 ADA THERAPEUTIC TARGET < 7.0 ACTION SUGGESTED > 7.0 Performed By: #### P OCGLUC #### [facility] [address] [place] [address] Dr. Rojelio Kingsley Glucose [Mass/Vol] 169 mg/dL Normal [facility] Comment on above: Performed By: #### P OCGLUC #### [facility] [address] [address] [address] Rojelio Kingsley HbA1c (Bld) [Mass fraction] 7.5 % Critically high 4.5-6.2 [facility] Comment on above: Performed By: #### P OCGLUC #### [facility] [address] [place] [address] Dr. Rojelio Kingsley LIPID PROFILEon 09-12-2022 CHOL-HDL RATIO NORM SEE BELOW Normal [facility] Comment on above: Result Comment: 3.3 - 4.4 LOW RISK 4.4 - 7.1 AVERAGE RISK 7.1 - 11.0 MODERATE RISK >11.0 HIGH RISK Performed By: #### B MP, ALT, LIPID #### [facility] [address] [place] [address] Dr. Rojelio Kingsley Cholesterol in LDL [Mass/Vol] 31.2 mg/dL Normal [facility] Comment on above: Performed By: #### B MP, ALT, LIPID #### [facility] [address] [place], [place] [address] Dr. Rojelio Kingsley HDL NORMAL > or = 60 mg/dl - LO W CARDIOVASCULAR RISK <40 mg/dl - HIGH CARDIOVASCULAR RISK Normal [facility] Comment on above: Performed By: #### B MP, ALT, LIPID #### [facility] [address] [place], [place] [address] Dr. Rojelio Kingsley LDL CALC NORMAL SEE BELOW Normal [facility] Comment on above: Result Comment: <100 mg/dl OPTIMAL 100 - 129 mg/dl NEAR OR ABOVE OPTIMAL 130 - 159 mg/dl BORDERLINE HIGH 160 - 189 mg/dl HIGH >190 mg/dl VERY HIGH Performed By: #### B MP, ALT, LIPID #### [facility] [address] [place], [place] [address] Dr. Rojelio Kingsley VLDL CALC 40.8 mg/dL Normal [facility] Comment on above: Performed By: #### B MP, ALT, LIPID #### [facility] [address] [place], [place] [address] Dr. Rojelio Kingsley Lipid Panelon 09-12-2022 Lipid Panel > or = 60 mg/dl - LO W CARDIOVASCULAR RISK <40 mg/dl - HIGH CARDIOVASCULAR RISK [facility] Other Lipid Panel SEE BELOW [facility] Other Lipid Panel 31.2 mg/dL [facility] Other Lipid Panel 40.8 mg/dL [facility] Other Cholesterol [Mass/Vol] 115 mg/dL Normal <=200 [facility] Other Comment on above: Performed By: #### B MP, ALT, LIPID #### [facility] [address] [place], [place] [address] Dr. Rojelio Kingsley Cholesterol in HDL [Mass/Vol] 43 mg/dL Normal 40-60 [facility] Other Comment on above: Performed By: #### B MP, ALT, LIPID #### [facility] [address] [place], [place] [address] Dr. Rojelio Kingsley Cholesterol.total/Cho lesterol in HDL [Mass ratio] 2.7 {ratio} Normal [employer] [facility] Other Comment on above: Performed By: #### B MP, ALT, LIPID #### [facility] [address] [place] [address] Dr. Rojelio Kingsley Triglyceride [Mass/Vol] 204 mg/dL Critically high <=150 [facility] Other Comment on above: Performed By: #### B MP, ALT, LIPID #### [facility] [address] [place] [address] Dr. Rojelio Kingsley MICROALBUMIN, RAND URon - mALB 2.1 mg/L Normal <=30.0 [facility] Comment on above: Performed By: #### M ALBR #### [facility] [address] [place] [address] Dr. Rojelio Kingsley PROF CHEM 8 (BAS METB)on Calcium [Mass/Vol] 9.6 mg/dL Normal 8.5-10.1 [facility] Comment on above: Performed By: #### B MP, ALT, LIPID #### [facility] [address] [place] [address] Dr. Rojelio Kingsley CO2 [Moles/Vol] 25.1 mmol/L Normal 21.0-32.0 [facility] Comment on above: Performed By: #### B MP, ALT, LIPID #### [facility] [address] [place] [address] Dr. Rojelio Kingsley Creatinine [Mass/Vol] 1.36 mg/dL Critically high 0.70-1.30 [facility] Comment on above: Performed By: #### B MP, ALT, LIPID #### [facility] [address] [place] [address] Dr. Rojelio Kingsley EGFR-AF [place] >60 Normal >=60 [facility] Comment on above: Performed By: #### B MP, ALT, LIPID #### [facility] [address] [place] [address] Dr. Rojelio Kingsley EGFR-NON AF [place] 51 mL/min/1.73m2 Critically low >=60 [facility] Comment on above: Performed By: #### B MP, ALT, LIPID #### [facility] [address] [address] [address] Rojelio Kingsley Glucose [Mass/Vol] 134 mg/dL Critically high 74-106 [facility] Comment on above: Performed By: #### B MP, ALT, LIPID #### [facility] [address] [address] [address] Rojelio Kingsley Potassium [Moles/Vol] 4.3 mmol/L Normal 3.5-5.1 [facility] Comment on above: Performed By: #### B MP, ALT, LIPID #### [facility] [address] [address] [address] Rojelio Kingsley Sodium [Moles/Vol] 141 mmol/L Normal 136-145 [facility] Comment on above: Performed By: #### B MP, ALT, LIPID #### [facility] [address] [address] [address] Rojelio Kingsley Urea nitrogen [Mass/Vol] 16.0 mg/dL Normal 7.0-18.0 [facility] Comment on above: Performed By: #### B MP, ALT, LIPID #### [facility] [address] [place] [address] Dr. Rojelio Kingsley US CAROTID ART BILon 023 US CAROTID ART ZHENG EXAMINATION: US CAROTID ART ZHNEG HISTORY: Left carotid artery occlusion COMPARISON: No [...] GABY PADILLA Date: 2022-09-12 15:22 Normal [facility] US CAROTID ART ZHENG [place] Other POINT OF CARE GLUCOSEon 12-07 22-2021 Glucose [Mass/Vol] 106 mg/dL Normal 74-106 [facility] Comment on above: Performed By: #### P OCGLUC #### [facility] [address] [place], [place] [address] Dr. Rojelio Kingsley Covid-19 PCR ([facility])on SARS-CoV-2 (COVID-19) RNA MITCHELL+probe Ql (Unsp spec) Not detected Normal NOT DETECTED [facility] Comment on above: Result Comment: This test is not yet approved or cleared by the [place] FDA. When there are no FDA-approved or cleared tests available, and other criteria are met, FDA can make tests available under an emergency access mechanism called an Emergency Use Authorization (EUA). The EUA for this test is supported by the Vp Clinical Research of Health and Human Service's (HHS's) declaration [...] SARS-CoV-2. Performed By: #### P OCGLUC #### [facility] [address] [place], [place] [address] Dr. Rojelio Kingsley POINT OF CARE GLUCOSEon 10-2 Glucose [Mass/Vol] 129 mg/dL Critically high 74-106 [facility] Comment on above: Performed By: #### P OCGLUC #### [facility] [address] [place], [place] [address] Dr. Rojelio Kingsley POINT OF CARE GLUCOSEon 09-2 Glucose [Mass/Vol] 116 mg/dL Critically high 74-106 [facility] Comment on above: Performed By: #### P OCGLUC #### [facility] [address] [place] [address] [address] Rojelio Kingsley XR LSPINE 2_3 VIEWSon [...] GABY PADILLA Date: 2022-03-05 13:06 Normal [facility] CBC AUTO DIFFon 02-22-2022 BASO # 0.0 103/ul Normal 0.0-0.1 [facility] Comment on above: Performed By: #### P OCGLUC #### [facility] [address] [place] [address] Dr. Rojelio Kingsley Basophils/100 WBC (Bld) 0.4 % Normal 0.2-2.0 [facility] Comment on above: Performed By: #### P OCGLUC #### [facility] [address] [place] [address] Dr. Rojelio Kingsley EO # 0.3 103/ul Normal 0.0-0.7 [facility] Comment on above: Performed By: #### P OCGLUC #### [facility] [address] [place] [address] [address] Rojelio Kingsley Eosinophils/100 WBC (Bld) 3.0 % Normal 0.9-7.0 [facility] Comment on above: Performed By: #### P OCGLUC #### [facility] [address] [place] [address] Dr. Rojelio Kingsley Erythrocyte distribution width (RBC) [Ratio] 14.4 % Normal 11.0-15.0 [facility] Comment on above: Performed By: #### P OCGLUC #### [facility] [address] [place] [address] Dr. Rojelio Kingsley Hematocrit (Bld) [Volume fraction] 37.1 % Critically low 42.0-54.0 [facility] Comment on above: Performed By: #### P OCGLUC #### [facility] [address] [place] [address] Dr. Rojelio Kingsley Hemoglobin (Bld) [Mass/Vol] 12.2 g/dL Critically low 14.0-18.0 [facility] Comment on above: Performed By: #### P OCGLUC #### [facility] [address] [place] [address] Dr. Rojelio Kingsley IG # 0.03 10e3/ul Normal 0.00-0.03 [facility] Comment on above: Performed By: #### P OCGLUC #### [facility] [address] [place] [address] Dr. Rojelio Kingsley IG % 0.4 % Normal 0.0-0.5 [facility] Comment on above: Performed By: #### P OCGLUC #### [facility] [address] [place] [address] Dr. Rojelio Kingsley LYMPH # 1.8 103/ul Normal 1.2-3.8 [facility] Comment on above: Performed By: #### P OCGLUC #### [facility] [address] [place] [address] Dr. Rojelio Kingsley Lymphocytes/100 WBC (Bld) 21.6 % Normal 20.5-60.0 [facility] Comment on above: Performed By: #### P OCGLUC #### [facility] [address] [place] [address] Dr. Rojelio Kingsley MANUAL DIFF REQ NO Normal [facility] Comment on above: Performed By: #### P OCGLUC #### [facility] [address] [place], [place] [id number] Dr. Rojelio Kingsley MCH (RBC) [Entitic mass] 30.0 pg Normal 25.9-34.0 [facility] Comment on above: Performed By: #### P OCGLUC #### [facility] [address] [place] [address] Dr. Rojelio Kingsley MCHC (RBC) [Mass/Vol] 32.9 g/dL Normal 29.9-35.2 [facility] Comment on above: Performed By: #### P OCGLUC #### [facility] [address] [place] [address] Dr. Rojelio Kingsley MCV (RBC) [Entitic vol] 91.4 fL Normal 80.0-94.0 [facility] Comment on above: Performed By: #### P OCGLUC #### [facility] [address] [place] [address] Dr. Rojelio Kingsley MONO # 0.7 103/ul Normal 0.3-0.8 [facility] Comment on above: Performed By: #### P OCGLUC #### [facility] [address] [place] [address] Dr. Rojelio Kingsley Monocytes/100 WBC (Bld) 8.4 % Normal 1.7-12.0 [facility] Comment on above: Performed By: #### P OCGLUC #### [facility] [address] [place] [address] Dr. Rojelio Kingsley NEUT # 5.5 103/ul Normal 1.4-6.5 [facility] Comment on above: Performed By: #### P OCGLUC #### [facility] [address] [place] [address] Dr. Rojelio Kingsley Neutrophils/100 WBC (Bld) 66.2 % Normal 43.0-75.0 [facility] Comment on above: Performed By: #### P OCGLUC #### [facility] [address] [place] [address] Dr. Rojelio Kingsley Platelet mean volume (Bld) [Entitic vol] 10.3 fL Normal 9.5-13.5 [facility] Comment on above: Performed By: #### P OCGLUC #### [facility] [address] [place], [place] [address] Dr. Rojelio Kingsley PLT 202 103/ul Normal 150-450 [facility] Comment on above: Performed By: #### P OCGLUC #### [facility] [address] [place] [address] [address] Rojelio Kingsley RBC 4.06 106/ul Critically low 4.70-6.10 [facility] Comment on above: Performed By: #### P OCGLUC #### [facility] [address] [place] [address] [address] Rojelio Kingsley WBC 8.3 103/ul Normal 4.0-11.0 [facility] Comment on above: Performed By: #### P OCGLUC #### [facility] [address] [place] [address] [address] Rojelio Kingsley GLYCOHEMOGLOBIN A1Con 2021 ADA RECOMMENDATION SEE BELOW Normal [facility] Comment on above: Result Comment: ADA RECOMMENDED LIMIT 4.0 - 6.0 ADA THERAPEUTIC TARGET < 7.0 ACTION SUGGESTED > 7.0 Performed By: #### A 1C #### [facility] [address] [place] [address] [address] Rojelio Kingsley Glucose [Mass/Vol] 151 mg/dL Normal [facility] Comment on above: Performed By: #### A 1C #### [facility] [address] [place] [address] [address] Rojelio Kingsley HbA1c (Bld) [Mass fraction] 6.9 % Critically high 4.5-6.2 [facility] Comment on above: Performed By: #### A 1C #### [facility] [address] [place] [address] [address] Rojelio Kingsley Consultation Noteon 02-19-20 22 Consultation Note [id number] Normal [facility] KNEE RIGHT 3 Son 1 KNEE RIGHT 3 S [facility] Department of Radiology [address] [place] [id number] ======== Patient Name: LIZZY YEE : [...] noted. Electronically signed: Mitul Banks. Transcribed by: [email or web address], User Resident: Electronically Signed by: MITUL BANKS @ 01/09/2021 08:47 PM Normal [facility] POC GLUCOSE LABon 12-29-2020 Glucose [Mass/Vol] 194 mg/dL High 70-100 [facility] Comment on above: Performed By: #### 8 [id number] #### [facility] [address] [place] [address], [facility] Glucose [Mass/Vol] 125 mg/dL High 70-100 [facility] Comment on above: Performed By: #### 8 5499 #### [facility] [address] [place] [address], [place] POC GLUCOSE LABon 12-28-2020 Glucose [Mass/Vol] 197 mg/dL High 70-100 [facility] Comment on above: Performed By: #### 8 [id number] #### [facility] [address] [place] [address], [place] Glucose [Mass/Vol] 177 mg/dL High 70-100 [facility] Comment on above: Performed By: #### 8 [id number] #### [facility] [address] [place] [address], [place] Glucose [Mass/Vol] 215 mg/dL High 70-100 [facility] Comment on above: Performed By: #### 8 5499 #### [facility] [address] [place] [address], [place] Glucose [Mass/Vol] 152 mg/dL High 70-100 [facility] Comment on above: Performed By: #### 8 5499 #### [facility] [address] [place] [address], [place] BASIC METABOLIC PANELon 12-18 Calcium [Mass/Vol] 8.2 mg/dL Low 8.6-10.3 [facility] Comment on above: Order Comment: No: D o not add to previous draw Performed By: #### 8 [id number] #### [facility] [address] [place] [address], [place] Chloride [Moles/Vol] 102 mmol/L Normal 98-107 [facility] Comment on above: Order Comment: No: D o not add to previous draw Performed By: #### 8 [id number] #### [facility] [address] [place] [address], [place] CO2 [Moles/Vol] 23 mmol/L Normal 21-31 [facility] Comment on above: Order Comment: No: D o not add to previous draw Performed By: #### 8 [id number] #### [facility] [address] [place] [address], [place] Creatinine [Mass/Vol] 0.97 mg/dL Normal 0.70-1.30 [facility] Comment on above: Order Comment: No: D o not add to previous draw Performed By: #### 8 [id number] #### [facility] [address] [place] [address], [place] GFR/1.73 sq M.predicted among blacks MDRD (S/P/Bld) [Vol rate/Area] mL/min/{1.73_m2} Normal >60 [facility] Comment on above: Order Comment: No: D o not add to previous draw Result Comment: Calc ulation may not be valid for patients over 70 years Performed By: #### 8 5499 #### [facility] [address] [place] [address], [place] GFR/1.73 sq M.predicted among non-blacks MDRD (S/P/Bld) [Vol rate/Area] mL/min/{1.73_m2} Normal >60 [facility] Comment on above: Order Comment: No: D o not add to previous draw Result Comment: Calc ulation may not be valid for patients over 70 years Performed By: #### 8 [id number] #### [facility] [address] [place] [address], [place] Glucose [Mass/Vol] 191 mg/dL High 70-100 [facility] Comment on above: Order Comment: No: D o not add to previous draw Performed By: #### 8 [id number] #### [facility] [address] [place] [address], [place] Potassium [Moles/Vol] 3.8 mmol/L Normal 3.5-5.1 [facility] Comment on above: Order Comment: No: D o not add to previous draw Performed By: #### 8 [id number] #### [facility] [address] [place] [id number], [facility] Sodium [Moles/Vol] 134 mmol/L Low 136-145 [facility] Comment on above: Order Comment: No: D o not add to previous draw Performed By: #### 8 [id number] #### [facility] [address] [place] [address], [facility] Urea nitrogen [Mass/Vol] 23 mg/dL Normal 7-25 [facility] Comment on above: Order Comment: No: D o not add to previous draw Performed By: #### 8 [id number] #### [facility] [address] [place] [address], [facility] CBC COMPLETE BLOOD COUNTon 0 12-27-2020 Erythrocyte distribution width (RBC) [Ratio] 13.3 % Normal 11.5-15.0 [facility] Comment on above: Order Comment: No: D o not add to previous draw Performed By: #### 8 [id number] #### [facility] [address] [place] [address], [facility] Hematocrit (Bld) [Volume fraction] 35.4 % Low 39.0-50.0 [facility] Comment on above: Order Comment: No: D o not add to previous draw Performed By: #### 8 [id number] #### [facility] [address] [place] [address], [facility] Hemoglobin (Bld) [Mass/Vol] 11.7 g/dL Low 13.0-17.0 [facility] Comment on above: Order Comment: No: D o not add to previous draw Performed By: #### 8 [id number] #### [facility] [address] [place] [address], [facility] MCH (RBC) [Entitic mass] 31.2 pg Normal 27.0-33.0 [facility] Comment on above: Order Comment: No: D o not add to previous draw Performed By: #### 8 [id number] #### [facility] [address] [place] [address], [facility] MCHC (RBC) [Mass/Vol] 33.1 g/dL Normal 32.0-35.0 [facility] Comment on above: Order Comment: No: D o not add to previous draw Performed By: #### 8 [id number] #### [facility] [address] [place] [address], [facility] MCV (RBC) [Entitic vol] 94.4 fL Normal 82.0-98.0 [facility] Comment on above: Order Comment: No: D o not add to previous draw Performed By: #### 8 [id number] #### [facility] [address] [place] [id number], [facility] Nucleated RBC/100 WBC (Bld) [Ratio] 0 % Normal 0-0 [facility] Comment on above: Order Comment: No: D o not add to previous draw Performed By: #### 8 [id number] #### [facility] [address] [place] [id number], [place] PLAT CNT 177 10*3/uL Normal 150-400 [facility] Comment on above: Order Comment: No: D o not add to previous draw Performed By: #### 8 [id number] #### [facility] [address] [place] [id number], [facility] RBC (Bld) [#/Vol] 3.75 10*6/uL Low 4.20-5.70 [facility] Comment on above: Order Comment: No: D o not add to previous draw Performed By: #### 8 [id number] #### [facility] [address] [place] [id number], [place] WBC (Bld) [#/Vol] 16.83 10*3/uL High 4.00-10.60 [facility] Comment on above: Order Comment: No: D o not add to previous draw Performed By: #### 8 [id number] #### [facility] [address] [place], [place] [address] Operative Reporton Operative Report MR#: [id number] I [facility] Pt. Name: Lizzy Yee Room #: 6AB [id number] Discharge Date: Birthdate: 1945 OPERATIVE REPORT DATE [...] cemented posterior stabilized total knee arthroplasty using [place] implants. COMPLICATIONS: None. TOTAL TOURNIQUET TIME: 92 [...] surgery. 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 The patient signed the consent form. Site was marked. We proceed with IV antibiotics in the form of 2 g of Ancef within an hour of the incision. PROCEDURE IN DETAIL: After written consent obtained, site was marked. The patient was taken to the [facility] OR and was seen by anesthesia. [...] futu (more content not included)... Normal [facility] POC GLUCOSE LABon 12-27-2020 Glucose [Mass/Vol] 200 mg/dL High 70-100 [facility] on above: Performed By: #### 8 [id number] #### [facility] [address] [place] [address], [place] Glucose [Mass/Vol] 186 mg/dL High 70-100 [facility] Comment on above: Performed By: #### 8 [id number] #### [facility] [address] [place] [address], [place] Glucose [Mass/Vol] 250 mg/dL High 70-100 [facility] Comment on above: Performed By: #### 8 [id number] #### [facility] [address] [place] [address], [place] Glucose [Mass/Vol] 177 mg/dL High 70-100 [facility] Comment on above: Performed By: #### 8 [id number] #### [facility] [address] [place] [address], [place] POC GLUCOSE LABon 12-26-2020 Glucose [Mass/Vol] 230 mg/dL High 70-100 [facility] Comment on above: Performed By: #### 8 [id number] #### [facility] [address] [place] [address], [place] Glucose [Mass/Vol] 278 mg/dL High 70-100 [facility] Comment on above: Performed By: #### 8 [id number] #### [facility] [address] [place] [address], [place] Glucose [Mass/Vol] 174 mg/dL High 70-100 [facility] Comment on above: Performed By: #### 8 [id number] #### [facility] [address] [facility] [place] [address], [facility] Glucose [Mass/Vol] 146 mg/dL High 70-100 [facility] Comment on above: Performed By: #### 8 [id number] #### [facility] [address] [facility] [place] [address], [facility] PORTABLE KNEE RIGHT 2 [facility] 12-26-2020 PORTABLE KNEE RIGHT 2 [facility] Department of Radiology [address] [place] [id number] ======== Patient Name: LIZZY YEE : 1945 Sex: M Age: Race: White Pt. Location: [id number] Patient Status: I Ordered Date: 12/26/2020 7:05:00 AM Completed Date: 12/26/2020 01:31 PM Requesting Provider: DANO CANO Attending Provider: HONG SCOTT Report Copy To: Signs & Symptoms: Post OP History: Comments: Hardware Evaluation, In PACU; Exam: PORTABLE KNEE RIGHT 2 [facility] ======== PORTABLE KNEE RIGHT 2 S 12/26/2020 [...] replacement. Electronically signed: José Thornton. Transcribed by: [email or web address], User Resident: JOSÉ THORNTON Electronically Signed by: JOSÉ THORNTON @ 12/26/2020 03:28 PM I personally read this/these film(s) with this resident Normal [facility] Comment on above: Order Comment: Hardw are Evaluation, In PACU; HIP RIGHT 1 OR 2 VWS WITH PE LVISon 10-05-2020 HIP RIGHT 1 OR 2 VWS WITH PELVIS [facility] Department of Radiology [address] [place] [address] ======== Patient Name: LIZZY YEE [...] narrowing. Electronically signed: Mitul Banks. Transcribed by: [email or web address], User Resident: Electronically Signed by: MITUL BANKS @ 10/05/2020 01:08 PM Normal [facility] Comment on above: Order Comment: Views (X-RAY, HIP): AP Pelvis, X-Table Lateral Hip , Weight Bearing?: Y KNEE LEFT 4VWSon 08-20-2020 KNEE LEFT 4VWS [facility] Department of Radiology [address] [place] [id number] ======== Patient Name: LIZZY YEE : 1945 Sex: M Age: Race: White Pt. Location: Patient Status: O Ordered Date: 08/20/2020 8:10:00 AM Completed Date: 08/20/2020 08:14 AM Requesting Provider: CEDRICK WILD Attending Provider: CEDRICK WILD Report Copy To: Signs & Symptoms: M25.569 Pain in unspecified knee I10 History: [place] Comments: Views (X-RAY, KNEE): AP, Lateral, Tunnel, [place] , Weight Bearing?: Y Exam: KNEE LEFT 4VWS ======== KNEE LEFT 4VWS 08/20/2020 8:14 AM CLINICAL INDICATIONS: M25.569 Pain in unspecified knee I10 TECHNOLOGIST COMMENTS: Patient states having bilateral knee pain. QUESTION FOR THE RADIOLOGIST: Views (X-RAY, KNEE): AP, Lateral, Tunnel, [place] , Weight Bearing?: Y PROTOCOL: AP,Lateral,Tunnel and [...] reports Electronically signed: Ej Francisco. Transcribed by: [email or web address], User Resident: TAMERA MARIE Electronically Signed by: EJ FRANCISCO @ 08/20/2020 08:41 AM I personally read this/these film(s) with this resident Normal [facility] Comment on above: Order Comment: Views (X-RAY, KNEE): AP, Lateral, Tunnel, [place] , Weight Bearing?: Y KNEE RIGHT 4 [facility] 1 KNEE RIGHT 4 S [facility] Department of Radiology [address] [place] [phone] ======== Patient Name: LIZZY YEE : 1945 Sex: M Age: Race: White Pt. Location: 84 Patient Status: O Ordered Date: 08/20/2020 8:10:00 AM Completed Date: 08/20/2020 08:14 AM Requesting Provider: CEDRICK WILD Attending Provider: CEDRICK WILD Report Copy To: Signs & Symptoms: M25.569 Pain in unspecified knee I10 History: [place] Comments: Views (X-RAY, KNEE): AP, Lateral, Tunnel, [place] , Weight Bearing?: Y Exam: KNEE RIGHT 4 S ======== KNEE RIGHT 4 S 08/20/2020 8:14 AM SIGNS AND SYMPTOMS: M25.569 Pain in unspecified knee I10 TECHNOLOGIST COMMENTS: Patient states having bilateral knee pain. QUESTION FOR THE RADIOLOGIST: Views (X-RAY, KNEE): AP, Lateral, Tunnel, [place] , Weight Bearing?: Y PROTOCOL: AP,Lateral,Tunnel and [...] knee. Electronically signed: Ej Francisco. Transcribed by: [email or web address], User Resident: Electronically Signed by: EJ FRANCISCO @ 08/20/2020 08:30 AM Normal [facility] Comment on above: Order Comment: Views (X-RAY, KNEE): AP, Lateral, Tunnel, [place] , Weight Bearing?: Y Vital Signs Date Time Vital Sign Value Performing Clinician Facility 04-21-2024 15:20-0400 Body mass index (BMI) [Ratio] 39.5 kg/m2 DO Juancarlos Ball Work Phone: [facility] 04-21-2024 13:34-0400 Body height 161.29 cm DO Juancarlos Ball Work Phone: [facility] 04-21-2024 13:34-0400 Body weight 101.6 kg DO Juancarlos Ball Work Phone: [facility] 04-20-2024 16:32-0400 Body height 165.1 cm DO Juancarlos Ball Work Phone: [facility] 04-20-2024 16:32-0400 Body mass index (BMI) [Ratio] 37.3 kg/m2 DO Juancarlos Ball Work Phone: [facility] 04-20-2024 16:32-0400 Body weight 101.66 kg DO Juancarlos Ball Work Phone: [facility] 03-09-2024 13:34-0400 Body height 161.29 cm DO Juancarlos Ball Work Phone: [facility] 03-09-2024 13:34-0400 Body mass index (BMI) [Ratio] 39.8 kg/m2 DO Juancarlos Ball Work Phone: [facility] 03-09-2024 13:34-0400 Body weight 103.58 kg DO Juancarlos Ball Work Phone: [facility] 03-09-2024 13:34-0400 Diastolic blood pressure 72 mm[Hg] DO Juancarlos Ball Work Phone: [facility] 03-09-2024 13:34-0400 Heart rate 56 /min DO Juancarlos Ball Work Phone: [facility] 03-09-2024 13:34-0400 Respiratory rate 12 /min DO Juancarlos Ball Work Phone: [facility] 03-09-2024 13:34-0400 Systolic blood pressure 126 mm[Hg] DO Juancarlos Ball Work Phone: [facility] 02-24-2024 13:14-0400 Body height 161.29 cm DO Juancarlos Ball Work Phone: [facility] 02-24-2024 13:14-0400 Body mass index (BMI) [Ratio] 39.4 kg/m2 DO Juancarlos Ball Work Phone: [facility] 02-24-2024 13:14-0400 Body weight 102.73 kg DO Juancarlos Ball Work Phone: [facility] 02-24-2024 13:14-0400 Diastolic blood pressure 58 mm[Hg] DO Juancarlos Ball Work Phone: [facility] 02-24-2024 13:14-0400 Heart rate 53 /min DO Juancarlos Ball Work Phone: [facility] 02-24-2024 13:14-0400 Respiratory rate 20 /min DO Juancarlos Ball Work Phone: [facility] 02-24-2024 13:14-0400 SaO2% (BldA) [Mass fraction] 95 % DO Juancarlos Ball Work Phone: [facility] 02-24-2024 13:14-0400 Systolic blood pressure 120 mm[Hg] DO Juancarlos Ball Work Phone: [facility] 02-08-2024 11:49-0400 Body mass index (BMI) [Ratio] 39.5 kg/m2 DO Juancarlos Ball Work Phone: [facility] 02-08-2024 10:04-0400 Body height 161.29 cm DO Juancarlos Ball Work Phone: [facility] 02-08-2024 10:04-0400 Body weight 101.15 kg DO Juancarlos Ball [facility]: [facility] [facility] 12-08-2023 13:37-0400 Body height 161.29 cm [facility] 12-08-2023 13:37-0400 Body mass index (BMI) [Ratio] 39.4 kg/m2 [facility] 12-08-2023 13:37-0400 Body weight 102.68 kg [facility] 12-08-2023 13:37-0400 Diastolic blood pressure 67 mm[Hg] [facility] 12-08-2023 13:37-0400 Heart rate 61 /min [facility] 12-08-2023 13:37-0400 Respiratory rate 20 /min [facility] 12-08-2023 13:37-0400 Systolic blood pressure 126 mm[Hg] [facility] 11-17-2023 13:12-0400 Body weight 102.71 kg [facility] 11-04-2023 10:57-0400 Body height 161.29 cm [facility] 11-04-2023 10:57-0400 Body mass index (BMI) [Ratio] 39.5 kg/m2 [facility] 11-04-2023 10:57-0400 Body weight 102.96 kg [facility] 11-04-2023 10:57-0400 Diastolic blood pressure 70 mm[Hg] [facility] 11-04-2023 10:57-0400 Heart rate 57 /min [facility] 11-04-2023 10:57-0400 Respiratory rate 18 /min [facility] 11-04-2023 10:57-0400 SaO2% (BldA) [Mass fraction] 97 % [facility] 11-04-2023 10:57-0400 Systolic blood pressure 109 mm[Hg] [facility] 06-05-2023 10:00-0500 Body height 165.1 cm Juancarlos Ball Other [facility] Other 06-05-2023 10:00-0500 Body mass index (BMI) [Ratio] 39.87 kg/m2 Juancarlos Ball Other [facility] Other 06-05-2023 10:00-0500 Body weight 108.68 kg Juancarlos Ball Other [facility] Other 06-05-2023 10:00-0500 Diastolic blood pressure 71 mm[Hg] Juancarlos Ball Other [facility] Other 06-05-2023 10:00-0500 Respiratory rate 20 /min Juancarlos Ball Other [employer] [facility] Other 06-05-2023 10:00-0500 Systolic blood pressure 118 mm[Hg] Juancarlos Ball Other [facility] Other 05-06-2023 13:45-0400 Body height 165.1 cm Juancarlos Ball Other [employer] Other 05-06-2023 13:45-0400 Body mass index (BMI) [Ratio] 39.97 kg/m2 Juancarlos Ball Other [employer] Other 05-06-2023 13:45-0400 Body weight 108.95 kg Juancarlos Ball Other [employer] Other 05-06-2023 13:45-0400 Diastolic blood pressure 87 mm[Hg] Juancarlos Ball Other [employer] Other 05-06-2023 13:45-0400 Respiratory rate 16 /min Juancarlos Ball Other [employer] Other 05-06-2023 13:45-0400 Systolic blood pressure 158 mm[Hg] Juancarlos Ball Other [employer] Other 03-10-2023 11:00-0400 Body height 165.1 cm Juancarlos Ball Other [employer] Other 03-10-2023 11:00-0400 Body mass index (BMI) [Ratio] 39.3 kg/m2 Juancarlos Ball Other [employer] Other 03-10-2023 11:00-0400 Body weight 107.14 kg Juancarlos Ball Other [employer] Other 03-10-2023 11:00-0400 Diastolic blood pressure 67 mm[Hg] Juancarlos Ball Other [employer] Other 03-10-2023 11:00-0400 Respiratory rate 16 /min Juancarlos Ball Other [employer] Other 03-10-2023 11:00-0400 Systolic blood pressure 120 mm[Hg] Juancarlos Ball Other [employer] Other 10-16-2022 13:12-0400 Body temperature 97.11 [degF] Jay Gonzalez MD Work Phone: [facility] 10-16-2022 13:12-0400 Diastolic blood pressure 66 mm[Hg] Jay Gonzalez MD Work Phone: [facility] 10-16-2022 13:12-0400 Heart rate 51 /min Jay Gonzalez MD Work Phone: [facility] 10-16-2022 13:12-0400 SaO2% (BldA) [Mass fraction] 96 % Jay Gonzalez MD Work Phone: [facility] 10-16-2022 13:12-0400 Systolic blood pressure 143 mm[Hg] Jay Gonzalez MD Work Phone: [facility] 09-08-2022 13:30-0500 Body height 165.1 cm Juancarlos Ball Other [employer] Other 09-08-2022 13:30-0500 Body mass index (BMI) [Ratio] 39.33 kg/m2 Juancarlos Ball Other [employer] Other 09-08-2022 13:30-0500 Body weight 107.23 kg Juancarlos Ball Other [employer] Other 09-08-2022 13:30-0500 Diastolic blood pressure 70 mm[Hg] Juancarlos Ball Other [employer] Other 09-08-2022 13:30-0500 Respiratory rate 20 /min Juancarlos Ball Other [employer] Other 09-08-2022 13:30-0500 Systolic blood pressure 112 mm[Hg] Juancarlos Ball Other [facility] Other 01-27-2022 13:20-0400 Body height 165.1 cm Jus Medina MD Work Phone: [facility] 01-27-2022 13:20-0400 Body temperature 96.91 [degF] Jus Medina MD Work Phone: [facility] 01-27-2022 13:20-0400 Body weight 104.33 kg Jus Medina MD Work Phone: [facility] 01-27-2022 13:20-0400 Diastolic blood pressure 56 mm[Hg] Jus Medina MD Work Phone: [facility] 01-27-2022 13:20-0400 Heart rate 50 /min Jus Medina MD Work Phone: [facility] 01-27-2022 13:20-0400 SaO2% (BldA) [Mass fraction] 98 % Jus Medina MD Work Phone: [facility] 01-27-2022 13:20-0400 Systolic blood pressure 131 mm[Hg] Jus Medina MD Work Phone: [facility] 10-10-2021 10:46-0400 Body height 165.1 cm Jay Gonzalez MD Work Phone: [facility] 10-10-2021 10:46-0400 Body weight 102.51 kg Jay Gonzalez MD Work Phone: [facility] 10-10-2021 10:46-0400 Diastolic blood pressure 65 mm[Hg] Jay Gonzalez MD Work Phone: [facility] 10-10-2021 10:46-0400 Heart rate 76 /min Jay Gonzalez MD Work Phone: [facility] 10-10-2021 10:46-0400 Systolic blood pressure 137 mm[Hg] Jay Gonzalez MD Work Phone: [facility] 10-10-2021 10:44-0400 Body height 165.1 cm Jus Medina MD Work Phone: [facility] 10-10-2021 10:44-0400 Body weight 102.51 kg Jus Medina MD Work Phone: [facility] 10-10-2021 10:44-0400 Diastolic blood pressure 65 mm[Hg] Jus Medina MD Work Phone: [facility] 10-10-2021 10:44-0400 Heart rate 76 /min Jus Medina MD Work Phone: [facility] 10-10-2021 10:44-0400 SaO2% (BldA) [Mass fraction] 98 % Jus Medina MD Work Phone: [facility] 10-10-2021 10:44-0400 Systolic blood pressure 137 mm[Hg] Jus Medina MD Work Phone: [facility] Encounters Encounter Date Encounter Type Care Provider Facility Start: 05-04-2024 End: 05-04-2024 ambulatory EHAB [facility] Start: 04-21-2024 End: 04-21-2024 Patient encounter procedure DO Juancarlos Ball Work Phone: Pending [facility] To [facility] Work Phone: Start: 04-21-2024 End: 04-21-2024 Patient encounter procedure DO Juancarlos Ball Work Phone: [facility]ending [facility] Work Phone: Start: 04-21-2024 End: 04-21-2024 Patient encounter procedure DO Juancarlos Ball Work Phone: [facility] Start: 04-21-2024 End: 04-21-2024 ambulatory Ej Anthony II Facility:[facility] Start: 04-11-2024 End: 04-11-2024 ambulatory Hanh Wade MD Facility: [facility] Start: 03-24-2024 End: 03-24-2024 ambulatory ANGELA BINGHAM Not Available Start: 03-09-2024 End: 03-09-2024 Patient encounter procedure DO Juancarlos Cuenca Work Phone: [facility] Work Phone: Start: 02-24-2024 End: 02-24-2024 Patient encounter procedure DO Juancarlos Cuenca Work Phone: [facility] Work Phone: Start: 02-08-2024 End: 02-08-2024 Patient encounter procedure DO Juancarlos Cuenca Work Phone: [facility] Work Phone: Start: 12-15-2023 End: 12-15-2023 ambulatory JOANNA SHANNON Not Available Start: 12-10-2023 End: 12-10-2023 ambulatory ANGELA BIGNHAM Not Available Start: 12-08-2023 End: 12-08-2023 Patient encounter procedure [facility] Work Phone: Start: 11-17-2023 End: 11-17-2023 Patient encounter procedure [facility] Work Phone: Start: 11-04-2023 End: 11-04-2023 Patient encounter procedure [facility] Work Phone: Start: 10-27-2023 Telephone encounter Jay patel MD Work Phone: General Surgery Start: 10-15-2023 End: 10-15-2023 ambulatory JAY GONZALEZ Facility:[facility] Start: 10-09-2023 Non-patient / Non-visit [facility] [employer] Work Phone: Start: 10-01-2023 End: 10-01-2023 ambulatory ANGELA BINGHAM Not Available Start: 08-10-2023 (RD) Aquatics Director Nirmala James [facility] Start: 08-10-2023 End: 08-10-2023 ambulatory Juancarlos [employer] [facility] Other Start: 08-03-2023 End: 08-03-2023 ambulatory Hanh Wade MD Facility:[facility] Start: 07-27-2023 End: 07-27-2023 ambulatory Hanh Wade MD Facility:[facility] Start: 06-17-2023 End: 06-17-2023 ambulatory Juancarlos Cuenca Other [employer] Other Start: 06-17-2023 Telephone encounter Juancarlos Ball [facility] Start: 06-16-2023 End: 06-16-2023 ambulatory Juancarlos Ball Other [employer] Other Start: 06-16-2023 Telephone encounter Juancarlos Ball [facility] Start: 06-09-2023 End: 06-09-2023 ambulatory Juancarlos Ball Other [employer] Other Start: 06-09-2023 Telephone encounter Juancarlos Ball [facility] Start: 06-08-2023 End: 06-08-2023 ambulatory Juancarlos Ball Other [employer] Other Start: 06-08-2023 Telephone encounter Juancarlos Ball [facility] Start: 06-07-2023 End: 06-07-2023 ambulatory Juancarlos Ball Other [employer] Other Start: 06-07-2023 Telephone encounter Juancarlos Ball [facility] Start: 06-05-2023 End: 06-05-2023 ambulatory Juancarlos Ball Other [employer] Other Start: 06-05-2023 Office outpatient vi sit 25 minutes Juancarlos Ball [facility] Start: 05-27-2023 End: 05-27-2023 ambulatory Juancarlos Ball Other [employer] Other Start: 05-27-2023 Telephone encounter Juancarlos Ball [facility] Start: 05-17-2023 End: 05-17-2023 ambulatory Juancarlos Ball Other [employer] Other Start: 05-17-2023 Telephone encounter Juancarlos Ball [facility] Start: 05-15-2023 End: 05-15-2023 ambulatory Juancarlos Ball Other [employer] Other Start: 05-15-2023 Telephone encounter Juancarlos Ball [facility] Start: 05-07-2023 End: 05-07-2023 ambulatory Juancarlos Ball Other [employer] Other Start: 05-07-2023 Telephone encounter Juancarlos Ball [facility] Start: 05-06-2023 End: 05-06-2023 ambulatory Juancarlos Ball Other [employer] Other Start: 05-06-2023 Office outpatient vi sit 25 minutes Juancarlos Ball [facility] Start: 05-06-2023 Telephone encounter Juancarlos Ball [facility] Start: 04-04-2023 End: 04-04-2023 ambulatory Juancarlos Ball Other [employer] Other Start: 04-04-2023 Telephone encounter Juancarlos Ball [facility] Start: 03-10-2023 End: 03-10-2023 ambulatory Juancarlos Ball Other [employer] Other Start: 03-10-2023 Office outpatient vi sit 25 minutes Jauncarlos Ball [facility] Start: 12-24-2022 End: 12-24-2022 ambulatory Juancarlos Ball Other [employer] Other Start: 12-24-2022 Telephone encounter Juancarlos Ball [...] (Primary Dx) Start: 10-11-2022 ambulatory JAY GONZALEZ Facility:[facility] Start: 10-11-2022 End: 10-11-2022 Subsequent hospital visit by physician Ct Prep [facility] Comment on above: 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] Start: 10-06-2022 Telephone encounter Jay patel MD Work Phone: General Surgery Comment on above: Patient Question Start: 09-16-2022 Telephone encounter Juancarlos Bolton [facility] Start: 09-16-2022 End: 09-17-2022 ambulatory Nya BIRD [facility] Other Start: 09-16-2022 End: 09-27-2022 Pre-admission assessment Nya BIRD [facility] Start: 09-12-2022 Telephone encounter Juancarlos Bolton [facility] Start: 09-12-2022 End: 09-13-[address] JUANCARLOS CUENCA [facility] Other Start: 09-08-2022 End: 09-08-2022 ambulatory Juancarlos Cuenca Other [facility] Other Start: 09-08-2022 Patient encounter procedure Juancarlos BURKS [facility] Start: 07-31-2022 End: 08-01-[address] EVAN LAMAS . Facility:[facility] Start: 07-03-2022 Encounter for preprocedural laboratory examination DR EVAN LAMAS . [facility] Start: 07-01-2022 End: 07-01-[address] EVAN [...] Telephone encounter Shilpa Storm MD Work Phone: [facility] Comment on above: Research Start: 10-10-2021 End: 10-10-2021 Patient encounter procedure Jay Gonzalez MD Work Phone: General Surgery Comment on above: Ventral incisional h ernia (Primary Dx) Polyposis of colon ( Primary Dx) Start: 12-26-2020 End: 12-29-2020 ambulatory JUANCARLOS CUENCA Facility:[facility] Start: 10-19-2020 End: 10-20-2020 ambulatory JUANCARLOS CUENCA Facility:[facility] Procedures Date Procedure Procedure Detail Performing Clinician Start: 04-21-2024 Plain radiography of pelvis DO [employer] Work Phone: Start: 04-21-2024 X-ray of left knee, four views DO [employer] Work Phone: Start: 10-04-2021 Partial resection of colon Nya BIRD Start: 10-04-2021 Repair of ventral hernia Nya BIRD Start: 04-08-2021 Colonoscopy Nya ABARCA Comment on above: Transverse and desce nding colon polyps Start: 12-26-2020 ANESTH KNEE ARTHROPLASTY [employer]L[facility] [employer] Start: 12-26-2020 Arthrp kne condyle&p latu medial&lat [...] BP Controlled (<130/80) BP Controlle d (<130/80) [facility] Start: 07-20-2023 Advance Directive Discussion Advance Directive Discussion [facility] Start: 07-20-2023 Behavioral Health Screening Behavioral Health Screening [facility] Start: 10-10-2022 End: 11-09-2022 Ct abdomen & pelvis w/o contrast material CT ABD/PEL WO IVCON Radiology Routine Ventral incisional hernia Expected: 10/10/2022, Expires: 11/09/2022 [facility] Work Phone: Comment on above: Expected: 10/10/2022 , Expires: 11/09/2022 Start: 07-20-2022 ADVANCE DIRECTIVE DISCUSSION ADVANCE DIRECTIVE DISCUSSION [facility] Start: 07-20-2022 DEPRESSION ASSESSMENT DEPRESSION ASS ESSMENT [facility] Start: 03-20-2022 Influenza vaccination INFLUENZA (#1) [facility] Start: 03-13-2022 Hemoglobin A1c measurement HbA1C [facility] Start: 03-13-2022 Hemoglobin A1c/Hemoglobin.total in Blood HBA1C [facility] Start: 01-04-2022 COVID-19 VACCINE (5 - Booster for Pfizer series) COVID-19 VACCINE (5 - Booster for Pfizer series) [facility] Start: 07-20-2021 ADVANCE DIRECTIVE DISCUSSION ADVANCE DIRECTIVE DISCUSSION [facility] Start: 04-19-2015 Pneumococcal Vaccine : 65+ (2 of 2 - PCV) Pneumococcal Vaccine: 65+ (2 of 2 - PCV) [facility] Start: 2009 PNEUMOVAX AGE 65 AND OVER WITH 5YR LOOKBACK (#1) PNEUMOVAX AGE 65 AND OVER WITH 5YR LOOKBACK (#1) [facility] Start: 1994 SHINGRIX VACCINE (1 of 2) SHINGRIX VACCINE (1 of 2) [facility] Start: 12-31-1963 Urine microalbumin profile [facility] Start: 1962 ANNUAL 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 TEAM 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 UPKEEP MECHANIC MACY DISEASE VISIT ANNUAL PCP TEAM CHRONIC DISEASE VISIT [facility] Start: 1962 BP CONTROLLED (<130/80) BP CONTROLLE D (<130/80) [facility] Start: 1962 Hepatitis B surface antibody level LDL CHOLESTEROL [facility] Start: 1962 HEPATITIS C SCREENING HEPATITIS C [facility] Start: 1962 Hepatitis C screening Hepatitis C [facility] Start: 1956 Adult depression screening assessment DEPRESSION SCREENING [facility] Start: 1954 3 comp foot exam completed DIABETIC FOOT EXAM [facility] Start: 1954 Diabetic foot examination Diabetic Foot Exam [facility] Start: 1954 Glaucoma screening Dilated Retinal E xam [facility] Start: 1954 Hepatitis B screening URINE ALBUMIN:CREATININE RATIO [facility] Start: 1954 Hepatitis C antibody , confirmatory test DILATED RETINAL EXAM [facility] Start: 1950 PNEUMOCOCCAL: 65+ (1 - PCV) PNEUMOCOCCAL: 65+ (1 - PCV) [facility] End: 10-11-2022 Ct abdomen & pelvis w/o contrast material [facility] Work Phone: Comment on above: 1 Occurrences starti ng 10/11/2022 until 10/11/2022 End: 11-15-2023 Ct abdomen & pelvis w/o contrast material CT ABD/PEL WO IVCON Radiology Routine Ventral incisional hernia 1 Occurrences starting 10/16/2022 until 11/15/2023 [facility] Work Phone: Comment on above: 1 Occurrences starti ng 10/16/2022 until 11/15/2023 [facility] Immunizations Immunization Date Immunization Notes Care Provider Alexa dietz 05-20-2022 influenza virus vaccine, unspecified formulation Nya BIRD [facility] [place] 05-16-2022 influenza, high dose seasonal, preservative-free Juancarlos Cuenca Other [employer] Other 05-16-2022 influenza virus vaccine, split virus (incl. purified surface antigen) Juancarlos Cuenca Other [employer] Other 05-16-2022 influenza virus vaccine, unspecified formulation [facility] 04-15-2022 SARS-CoV-2 (COVID-19 ) [id number] Nya NILL [facility] 11-09-2021 COVID-19 Vaccine Pfi zer - Documentation Purposes Only Juancarlos Cuenca Other [facility] 11-09-2021 SARS-CoV-2 mRNA (gupmmcxrflg-qtot-fluoi se) vaccine Nya NILL [facility] 04-19-2021 SARS-CoV-2 (COVID-19 ) mRNA BNT-162b2 vax Nya NILL [facility] Comment on above: Result Comment: 2022: [id number] 09-05-2020 SARS-CoV-2 (COVID-19 ) mRNA BNT-162b2 vax Nya NILL [facility] Comment on above: Result Comment: 2022: [id number] 08-15-2020 COVID-19 Vaccine Moderna - Documentation Purposes Only Juancarlos Cuenca Other [facility] 08-15-2020 SARS-CoV-2 (COVID-19 ) mRNA BNT-162b2 vax Nya NILL [facility] Comment on above: Result Comment: 2022: [id number] 03-28-2020 influenza virus vaccine, split virus (incl. purified surface antigen) Juancarlos Cuenca Other [employer] [facility] Other 03-28-2020 influenza virus vaccine, unspecified formulation [facility] 05-17-2019 influenza virus vaccine, split virus (incl. purified surface antigen) Juancarlos Cuenca Other [facility] Other 05-17-2019 influenza virus vaccine, unspecified formulation [facility] 05-13-2018 influenza virus vaccine, split virus (incl. purified surface antigen) Juancarlos Cuenca Other [facility] Other 05-13-2018 influenza virus vaccine, unspecified formulation [facility] 04-25-2015 influenza virus vaccine, split virus (incl. purified surface antigen) Juancarlos Cuenca Other [facility] Other 04-25-2015 influenza virus vaccine, unspecified formulation [facility] 04-25-2015 pneumococcal conjuga te vaccine, 13 valent Juancarlos Cuenca Other [facility] 04-19-2014 pneumococcal polysaccharide vaccine, 23 valent Juancarlos Cuenca Other [facility] 04-20-2013 tetanus and diphther ia toxoids, adsorbed, preservative free, for adult use (5 Lf of tetanus toxoid and 2 Lf of diphtheria toxoid) Juancarlos Cuenca Other [facility] 04-21-2012 pneumococcal polysaccharide vaccine, 23 valent Juancarlos Cuenca Other [facility] Payers Date Payer Category Payer Self-pay [id number] 2023 Unknown [id number] 2020 Private Health Insurance [facility] AARP SUPPLEMENT [id number] 2020-Present [phone] [address] [place] [address] Indemnity [id number] 2021 Private Health Insurance [facility] AARP SUPPLEMENT [id number] 2020-Present [phone] [address] [place] [address] Indemnity [id number] 2009 Medicare MEDICARE MEDICAR E A AND B [id number] 2009-Present [phone] [place] [address] Medicare [id number] 2009 Medicare [id number] 1959 Medicare [id number] 1959 Unknown [id number] 1944 Unknown [id number] 2.16.840.1.483183.3.579.2 .647 1944 Unknown [id number] 2.16.840.1.514425.3.579.2 .647 1944 Unknown [id number] 2.16.840.1.550007.3.579.2 .593 1944 Unknown [id number] 2.16.840.1.494310.3.579.2 .593 1944 Unknown [id number] 2.16.840.1.176067.3.579.2 .593 1944 Unknown [id number] 2.16.840.1.320084.3.579.2 .593 1944 Unknown [id number] 2.16.840.1.756375.3.579.2 .593 1944 Unknown [id number] 2.16.840.1.609983.3.579.2 .593 1944 Unknown [id number] 2.16.840.1.184171.3.579.2 .593 1944 Unknown [id number] 2.16.840.1.739344.3.579.2 .593 1944 Unknown [id number] 2.16.840.1.151851.3.579.2 .593 1944 Unknown [id number] 2.16.840.1.660902.3.579.2 .593 1944 Unknown [id number] 2.16.840.1.980152.3.579.2 .593 1944 Unknown [id number] 2.16.840.1.974813.3.579.2 .593 1944 Unknown [id number] 2.16.840.1.666080.3.579.2 .593 1944 Unknown [id number] 2.16.840.1.909983.3.579.2 .593 1944 Unknown [id number] 2.16.840.1.576361.3.579.2 .593 1944 Unknown [id number] 2.16.840.1.999112.3.579.2 .593 1944 Unknown [id number] 2.16.840.1.951785.3.579.2 .593 1944 Unknown [id number] 2.16.840.1.339955.3.579.2 .593 1944 Unknown [id number] 2.16.840.1.102183.3.579.2 .593 1944 Unknown [id number] 2.16.840.1.884195.3.579.2 .727 1944 Unknown [id number] 2.16.840.1.705458.3.579.2 .727 1944 Unknown [id number] 2.16.840.1.965731.3.579.2 .727 1944 Unknown [id number] 2.16.840.1.165554.3.579.2 .1259 1944 Unknown [id number] 2.16.840.1.488303.3.579.2 .9 1944 Unknown [id number] 2.16.840.1.298279.3.579.2 .9 1944 Unknown [id number] 2.16.840.1.021097.3.579.2 .1258 1944 Unknown [id number] 2.16.840.1.163305.3.579.2 .196 1944 Unknown [id number] 2.16.840.1.140336.3.579.2 .196 1944 Unknown [id number] 2.16.840.1.419648.3.579.2 . Unknown [id number] Unknown [id number] 2.16.840.1.260708.19 Unknown [id number] Conversion Insurance [id number] Unknown [id number] 2.16.840.1.175309.3.579.2 .531 Unknown [id number] 2.16.840.1.528209.3.579.2 .531 Social History Date Type Detail Facility Start: 05-21-2021 End: 09-16-2023 Tobacco smoking status NHIS Ex-smoker [facility] End: 07-20-1994 History of tobacco use Current smoker [facility] End: 07-20-1994 History of tobacco use Cigar Smoker [facility] Start: 05-21-2021 End: 10-16-2022 Tobacco use and exposure Smokeless tobacco non-user [facility] Start: 10-10-2021 End: 10-15-2023 Alcohol intake Ex-drinker (finding) [facility] Start: 05-21-2021 End: 10-16-2022 Tobacco Comment Quit 15+ years [facility] Start: 1945 Sex Assigned At Not on file C [facility] Start: 08-25-2021 End: 09-24-2021 Exposure to SARS-CoV-2 (event) Not sure [facility] Start: 09-16-2022 Tobacco smoking status Never s moked tobacco (finding) [facility] Tobacco smoking status Former sm okeless tobacco user, quit more than 30 days ago [facility] Start: 10-15-2023 Sex Assigned At Male F [facility] Start: 10-15-2023 History of Social function [facility] Start: 1945 Sex Assigned At Male F [facility] Medical Equipment Procedure Code Equipment Code Equipment Origin al Text Equipment Identifier Dates Mesh Parietene Polypropylene Macroporous [id number] Surgical Monofilament - [id number] Start: 09-24-2021 Blood Sugar Diag nostic [...] Date & Type Note Facility 05-04-2024 Note [facility] Clinic Note Chief Complaint: Patient here [...] common femoral artery. Surgeon: Jyoti Mccurdy Primary Lot Attendant: None. Anesthesia: Local with 1% lidocaine and sedation. EBL: 10 cc Complications: None. 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 Procedure: Patient was brought to the angiogram suite. He was placed on the table in supine position. Left groin area was prepped and draped in the usual sterile fashion. Patient was give (more content not included)... [facility] 10-28-2023 Miscellaneous Notes Returned call [...] Patient and or can be reached at [phone]. Thank you. Wendi Traore documented in this encounter [facility] 10-15-2023 Note HNO ID: [id number] Author: JAY GONZALEZ MD Service: ? Author Type: Physician Type: Progress Notes Filed: 10/15/2023 13:41 Note Text: [facility] for Abdominal Core Health - Follow Up [...] Gonzalez MD 10/15/23, 1:38 PM General Surgery [facility] Medical Decision Making: Problems: Low: Stable chronic illness Risk: Low: Low risk from testing/treatment Medical Decision Making Level: 3 - Low [facility] 08-10-2023 Evaluation note Encounter Date Diagnosis Assessment Notes Jul, Other Summary of Visit: (A) Meal timing (B) DM2 nutrition education (C) Answered general, nutrition-rela maru questions [facility] Other 11-28-2023 Evaluation note* Encounter Date Diagnosis Assessment Notes Treatment Notes Treatment Clinical Notes May, Type 2 diabetes mellitus with hyperglycemia, without long-term current use of insulin (ICD-10 - E11.65) [facility] Other 11-28-2023 Evaluation note* Encounter Date Diagnosis Assessment Notes Treatment Notes Treatment Clinical Notes May, Primary hypertension (ICD-10 - I10) [facility] Other 11-21-2023 Evaluation note* Encounter Date Diagnosis Assessment Notes Treatment Notes Treatment Clinical Notes May, Type 2 diabetes mellitus with hyperglycemia, without long-term current use of insulin (ICD-10 - E11.65) [facility] Other 11-17-2023 Evaluation note* Encounter Date Diagnosis [...] use, the patient reduces the risk for MA, CVA, HTN, cardiac dysrhythmias and sudden cardiac [...] index [BMI] 39.0-39.9, adult (ICD-10 - Z68.39) [facility] Other 11-08-2023 Evaluation note* Encounter Date Diagnosis Assessment Notes Treatment Notes Treatment Clinical Notes May, Primary hypertension (ICD-10 - I10) [facility] Other 10-29-2023 Evaluation note* Encounter Date Diagnosis Assessment Notes Treatment Notes Treatment Clinical Notes Apr, Type 2 diabetes mellitus with hyperglycemia, without long-term current use of insulin (ICD-10 - E11.65) Apr, Primary hypertension (ICD-10 - I10) [facility] Other 10-19-2023 Evaluation note* Encounter Date Diagnosis Assessment Notes Treatment Notes Treatment Clinical Notes Apr, Type 2 diabetes mellitus with hyperglycemia, without long-term current use of insulin (ICD-10 - E11.65) [facility] Other 10-18-2023 Evaluation note* Encounter Date Diagnosis Assessment Notes Treatment Notes Treatment Clinical Notes Apr, ASHD (arteriosclerotic heart disease) (ICD-10 - I25.10) This patient is stable without activity related CP, dyspnea or lightheadedness. They are instructed to continue exercise and AHA diet plan. Continue secondary prevention measures. 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 Inspect feet daily for cuts. Continue secondary prevention measures. Scheduled post op JAMIR [facility] Other 10-18-2023 Evaluation note* Encounter Date Diagnosis Assessment Notes Treatment Notes Treatment Clinical Notes Apr, Type 2 diabetes mellitus with hyperglycemia, without long-term current use of insulin (ICD-10 - E11.65) [facility] Other 08-22-2023 Evaluation note* Encounter Date Diagnosis [...] use, the patient reduces the risk for MA, CVA, HTN, cardiac dysrhythmias and sudden cardiac [...] [BMI ] 39.0-39.9, adult (ICD-10 - Z68.39) [facility] Other 05-31-2023 NoteOPERATIVE NOTE OPERATION DATE: 11/29/2022 [...] in three years. CC: Juancarlos Cuenca D.O.[id number] NotePROCEDURE: XR HIP LT 2 3V WO PELVIS HISTORY: Pain of left hip joint COMPARISON: None. FINDINGS: BONES:No fracture, acute abnormality, or significant arthropathy. SOFT TISSUES:No visible soft tissue swelling. EFFUSION:None visible. OTHER: Negative. IMPRESSION: 1. No acute bone abnormality. 2. Mild degenerative joint disease. Electronically authenticated by: GABY PADILLA Date: 2022-11-28 13:08[facility] NoteCONSULTATION CONSULTATION DATE: 10/28/2022 TO: Juancarlos Cuenca [...] our patients to inform us about any wfgt-jmw-hxcntqv medications or herbal remedies/nutritional supplements/alternative remedies. 2. [...] treatment options with their primary care provider.[facility] [id number] History of Present illness Narrative* Jay Gonzalez MD - 10/16/2022 2:38 PM EDT [facility] Abdominal Core Health - Follow Up Visit [...] Gonzalez MD 10/16/22, 2:45 PM General Surgery [facility] * Destiny Zapata MA - 10/16/2022 1:09 PM EDT What is the reason for your visit today? Follow up 1 year Who is your referring physician? Are you having poor oral intake? NO Have you had unintentional weight loss of 15 lbs/7 Kg in the last 3-6 months? NO Bowels: regular Wound: Temperature: No Drains: No documented in this encounterKind[facility]03-25-2023 Miscellaneous Notes* Allied Health - RT Marisa(R) [...] 11, 2022 10:29 AM documented in this encounterKindred Healthcare03-21-2023 Miscellaneous Notes* Telephone Encounter - Efrain Zamarripa [...] or so at a non facility. PH: [phone] documented in this encounterKindred Healthcare02-24-2023 Evaluation note* Encounter Date Diagnosis Assessment Notes Treatment Notes Treatment Clinical Notes Aug, Left carotid artery stenosis (ICD-10 - I65.22) US: right <50%, left 50-69% - 10/2020 US: right <50%, left 80-90% - 08/2022 [facility] Other 02-20-2023 Evaluation note* Encounter Date Diagnosis [...] use, the patient reduces the risk for MA, CVA, HTN, cardiac dysrhythmias and sudden cardiac [...] reviewed and amended by provider signed below. 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 A refill for Baclofen 10 mg q.h.s. [...] knee osteoarthritis. The patient is in agreement.[facility] [id number] Note CONSULTATION CONSULTATION DATE: 03/25/2022 CHIEF COMPLAINT: 1. Low back pain. 2. Left knee pain. HISTORY OF PRESENT ILLNESS: This is a very pleasant, 76-year-old male, who is known to the pain practice remote. The patient had a right total knee replacement at [facility]. The patient is doing well with [...] patient understands and would like to proceed.[facility] 01-27-2022 Nurse Note* Sarah Osman MA - [...] Temperature: No Drains: No documented in this encounterKindred Healthcare07-11-2022 History of Present illness Narrative* Jus Medina [...] needed. Jus Medina MD documented in this encounterKindred Healthcare03-25-2022 Miscellaneous Notes* Telephone Encounter - Shan Parham - 10/11/2021 3:09 PM EDTSummary: IRB#: [id number] Research Outreach IRB# [id number], Qualitative Interviews in Postoperative Gastrointestinal Dysfunction (POGD). PI: Shilpa Storm MD, SANJIV, FASA. Outcomes Research Department. Anesthesia [place]. This is a research study note. Patient [...] there for his review. Shan Parham Research Lot Attendant Anesthesiology [place] Outcomes Research Department documented in this encounterKindred Healthcare03-24-2022 History of Present illness Narrative* Jay Gonzalez MD - 10/10/2021 1:37 PM EDT [facility] Abdominal Core Health - Follow Up [...] the care that he received while at [facility]. Objective: AAOx3, NAD Non-labored respirations on room [...] Gonzalez MD 10/10/21, 1:37 PM General Surgery [facility] documented in this encounterKindred Healthcare03-24-2022 History of Present illness Narrative* Jus Medina MD - 10/10/2021 11:00 AM EDT HPI Lizzy Yee is a 75 year old male here today for postop Open subtotal colectomy with stapled cemg-ce-oqss ileosigmoid anastomosis ventral herniorrhaphy with transversus abdominus [...] months Jus Medina MD documented in this encounterKindred Healthcare03-24-2022 Nurse Note* Elena Ferrell MA - 10/10/2021 10:45 AM EDT What is the reason for your visit today? Follow up Who is your referring physician? Self Are you having poor oral intake? NO Have you had unintentional weight loss of 15 lbs/7 Kg in the last 3-6 months? NO Bowels: regular Wound: none Temperature: No Drains: No documented in this encounterKindred Healthcare03-08-2022 History of Past illness Narrative* Problem Noted Date Resolved Date 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 documented as of this encounter (statuses as of 10/10/2021) [address]08-2022 History of Past illness Narrative* Problem Noted Date Resolved Date 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 documented as of this encounter (statuses as of 10/10/2021) [address]08-2022 History of Past illness Narrative* Problem Noted Date Resolved Date 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 documented as of this encounter (statuses as of 10/11/2021) [address]08-2022 History of Past illness Narrative* Problem Noted Date Resolved Date 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 documented as of this encounter (statuses as of 02/05/2022) [address]08-2022 History of Past illness Narrative* Problem Noted Date Resolved Date 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 documented as of this encounter (statuses as of 10/07/2022) [address]08-2022 History of Past illness Narrative* Problem Noted Date Resolved Date 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 documented as of this encounter (statuses as of 10/12/2022) [address]08-2022 History of Past illness Narrative* Problem Noted Date Resolved Date 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 documented as of this encounter (statuses as of 10/12/2022) [facility] History of Past illness Narrative* Problem Noted Date Resolved Date 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 documented as of this encounter (statuses as of 10/16/2022) [facility]03-08-[facility] History of Past illness Narrative* Problem Noted Date Diagnosed Date Resolved Date 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 documented as of this encounter (statuses as of 10/28/2023) [facility]06-12-2021 NoteMR#: [id number] 2 [facility] Pt. Name: Lizzy Yee Admitted: 12/26/2020 Discharged: 12/29/2020 Date of : 1945 Physician: Ty Avalos M.D. DISCHARGE SUMMARY [facility] Pt. Name: Kurt Yee Admitted: [...] CONDITION AT DISCHARGE: Stable DISPOSITION: Home with [facility] DISCHARGE INSTRUCTIONS: Take medications as prescribed, [...] Cano MD Date Trans: 12/29/2020 08:18 P/ [id number] cc: Juancarlos Cuenca D.O. [address] [place] [phone] HospitalEvaluchristianacare + Plan note No data available for this section [facility]* Diagnosis Ventral incisional hernia- Primary documented in this encounter [facility] note* Diagnosis Polyposis of colon- Primary Benign neoplasm of colon documented in this encounter [facility] note* Diagnosis Polyposis of colon- Primary Benign neoplasm of colon Incisional hernia, without obstruction or gangrene Incisional hernia without mention of obstruction or gangrene documented in this encounter [facility] noteNo Logical [employer] Other Evaluation note* Diagnosis Ventral incisional hernia documented in this encounter [facility] note* Diagnosis Ventral incisional hernia- Primary documented in this encounter [facility] note* Diagnosis Onset Date Resolution Status ASHD (arteriosclerotic heart disease) acute Elevated cholesterol acute NARINDER (generalized anxiety disorder) acute Obesity acute Obstructive sleep apnea acut e Primary hypertension acute [id number] acute [id number] acute ASHD (arteriosclerotic heart disease) acute Elevated cholesterol acute Obstructive sleep apnea acut e Primary hypertension acute Type 2 diabetes mellitus wit h diabetic peripheral angiopathy without gangrene acute 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 Type 2 diabetes mellitus with hyperglycemia acute [facility] Work Phone: Evaluation note* Diagnosis Onset Date Resolution Status ASHD (arteriosclerotic heart disease) acute Elevated cholesterol acute NARINDER (generalized anxiety disorder) acute Obesity acute Obstructive sleep apnea acut e Primary hypertension acute [id number] acute ASHD (arteriosclerotic heart disease) acute Elevated cholesterol acute Obstructive sleep apnea acut e Primary hypertension acute Type 2 diabetes mellitus wit h diabetic peripheral angiopathy without gangrene acute 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 Type 2 diabetes mellitus with hyperglycemia acute Primary osteoarthritis of left knee acute [facility] Work Phone: History general Narrative - [...] RIGHT HEMICOLECTOMY 2003 Hospitalization History SEE SURGICAL [facility] Other [facility] Narrative - Reported* Type Description Date [...] History Colonoscopy 12/2022 Hospitalization History SEE SURGICAL [facility] Other [facility] Narrative - Reported* Type Description Date [...] anaya 03/2023 Hospitalization History SEE SURGICAL HX [facility] Other Hospital Discharge instructions No data available for this section [facility] No data available for this section [facility]burgReason for referral (narrative)* Reason 10/09/22 Referral for carotid artery stenosis Diagnosis 1 Left carotid artery stenosis (I65.22) Referral Organization [facility] nemo Referring Provider First Name Juancarlos Referring Provider Last Name Bang Referring Provider Specialty Internal Me dicine Ref[facility] Referred Provider Jyoti Mccurdy Referred Address [address] [place], [place],[address] Referred Provider Specialty Vascular Ruslan kajal Referral Priority Routine Referral Appointment Date 2022-10-09 General Notes Mr. Hooper is being r eferred for carotid artery stenosis. He recently completed carotid artery US at [facility], which revealed 87% left carotid [...] facial droop or unilateral extremity weakness. 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 Advance Directive(s) 09/24/2021 8:40 AM Documents on File Type Date Recorded 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 Advance Directive(s) 09/24/2021 8:40 AM Advance Directive Response Recorded Date/ Time Advance Directives No August 05, 2023 12:06pm Reason for Referral Specialty Diagnoses / Procedures Referred By Olegario t Referred To Contact CT IMAGING Diagnoses Ventral incisional hernia Procedures CT ABD/PEL WO IVCON CT ABD & PELVIS W/O CONTRAST Jay Gonzalez MD [address] [place] [address] Ct Imaging Referral ID Status Reason Start Date Expiration Date Visits Requested Visits Authorized [id number] Pending Review Auto-Generat ed Referral 10/10/2022 11/09/2022 1 1 Referral ID Status Reason Start Date Expiration Date V isits Requested Visits Authorized [id number] Closed Auto-Generate d Referral 10/10/2022 11/09/2022 1 1 Specialty Diagnoses / Procedures Referred By Olegario t Referred To Contact CT IMAGING Diagnoses Ventral incisional hernia Procedures CT ABD/PEL WO IVCON CT ABD & P[place] [address] [place] [address] Ct Imaging Referral ID Status Reason Start Date Expiration Date Visits Requested Visits Authorized [id number] Pending Review Auto-Generat ed Referral 10/16/2022 11/15/2023 1 1 Chief Complaint and Reason for Visit Chief Complaint WMN f/u DL 10-14 day DS 3 month follow up Reason for Visit ASHD (arteriosclerot ic heart disease) Elevated cholesterol NARINDER (generalized anxiety disorder) Obesity Obstructive sleep apnea Primary hypertension [id number] ASHD (arteriosclerotic heart disease) Elevated cholesterol Obstructive [...] disorder) Obesity Obstructive sleep apnea Primary hypertension [id number] ASHD (arteriosclerotic heart disease) Elevated cholesterol Obstructive [...] section and content) DATE CREATED AUTHOR 03/11/2021 [facility] DATE CREATED AUTHOR AUTHOR'S ORGANIZ ATION 10/13/2022 [facility] DATE CREATED AUTHOR AUTHOR'S ORGANIZ ATION 12/29/2022 [facility] DATE CREATED AUTHOR AUTHOR'S ORGANIZ ATION 12/29/[address] [facility] DATE CREATED AUTHOR AUTHOR'S ORGANIZ ATION 10/29/2023 [facility] DATE CREATED AUTHOR AUTHOR'S ORGANIZ ATION 03/26/2024 [facility] DATE CREATED AUTHOR AUTHOR'S ORGANIZ ATION 04/18/[address] [facility] DATE CREATED AUTHOR AUTHOR'S ORGANIZ ATION 04/23/2024 [facility] DATE CREATED AUTHOR AUTHOR'S ORGANIZ ATION 05/14/2024 [facility] Source Comments (unrecognize d section and content) In the event this informatio n is protected by the Federal Confidentiality of Alcohol and Drug Abuse Patient Records regulations: The Federal rules restrict any use of the information to criminally investigate or prosecute any alcohol or drug abuse patient.[facility] HealthcareIn the event this information is protected by the Federal Confidentiality of Alcohol and Drug Abuse Patient Records regulations: The Federal rules restrict any use of the information to criminally investigate or prosecute any alcohol or drug abuse patient.[facility] HealthcareIn the event this information is protected by the Federal Confidentiality of Alcohol and Drug Abuse Patient Records regulations: The Federal rules restrict any use of the information to criminally investigate or prosecute any alcohol or drug abuse patient.[facility] HealthcareIn the event this information is protected by the Federal Confidentiality of Alcohol and Drug Abuse Patient Records regulations: The Federal rules restrict any use of the information to criminally investigate or prosecute any alcohol or drug abuse patient.[facility] HealthcareIn the event this information is protected by the Federal Confidentiality of Alcohol and Drug Abuse Patient Records regulations: The Federal rules restrict any use of the information to criminally investigate or prosecute any alcohol or drug abuse patient.[facility] HealthcareIn the event this information is protected by the Federal Confidentiality of Alcohol and Drug Abuse Patient Records regulations: The Federal rules restrict any use of the information to criminally investigate or prosecute any alcohol or drug abuse patient.[facility] HealthcareIn the event this information is protected by the Federal Confidentiality of Alcohol and Drug Abuse Patient Records regulations: The Federal rules restrict any use of the information to criminally investigate or prosecute any alcohol or drug abuse patient.[facility] HealthcareIn the event this information is protected by the Federal Confidentiality of Alcohol and Drug Abuse Patient Records regulations: The Federal rules restrict any use of the information to criminally investigate or prosecute any alcohol or drug abuse patient.[facility] HealthcareIn the event this information is protected by the Federal Confidentiality of Alcohol and Drug Abuse Patient Records regulations: The Federal rules restrict any use of the information to criminally investigate or prosecute any alcohol or drug abuse patient.[facility] Reason for Visit (unrecogniz ed section and content) Reason Comments Follow Up Reason Comments Follow Up Reason Onset Date Comments Research 10/11/2021 Reason Comments Established Patient Follow-Up Reason Comments Patient Question Specialty Diagnoses / Procedures Referred By Contac t Referred To Contact CT IMAGING Diagnoses Ventral incisional hernia Procedures CT ABD/PEL WO IVCON CT ABD & PELVIS W/O CONTRAST Jay Gonzalez MD [address] [place] [address] [address] [address] Imaging Referral ID Status Reason Start Date Expiration Date V isits Requested Visits Authorized [id number] Closed Auto-Generate d Referral 10/10/2022 11/09/2022 1 [...] April 21, 2024 End: April 21, 2024 Sulfonator Operator Relationship Specialty Start Date End Date Juancarlos Cuenca DO PCP - General Internal Medicine 10/23/14 [facility] [address] [place] [phone] Cardiology 09/13/21 Sulfonator Operator Relationship Specialty Start Date End Date Juancarlos Cuenca DO PCP - General Internal Medicine 10/23/14 [facility] [address] [place] [phone] Cardiology 09/13/21 Sulfonator Operator Relationship Specialty Start Date End Date Juancarlos Cuenca DO PCP - General Internal Medicine 10/23/14 Pedor Richardson [address] [place] [phone] Cardiology 09/13/21 Sulfonator Operator Relationship Specialty Start Date End Date Juancarlos Cuenca, DO PCP - General Internal Medicine 10/23/14 Pedro Richardson MD Cardiology 09/13/21 Sulfonator Operator Relationship Specialty Start Date End Date Juancarlos Cuenca, DO PCP - General Internal Medicine 10/23/14 Pedro Richardson MD Cardiology 09/13/21 Sulfonator Operator Relationship Specialty Start Date End Date Juancarlos Cuenca, DO PCP - General Internal Medicine 10/23/14 Pedro Richardson MD Cardiology 09/13/21 Sulfonator Operator Relationship Specialty Start Date End Date Juancarlos Cuenca DO PCP - General Internal Medicine 10/23/14 Pedro Richardson MD Cardiology 09/13/21 Sulfonator Operator Relationship Specialty Start Date End Date Juancarlos Cuenca DO PCP - General Internal Medicine 10/23/14 Pedro Richardson MD Cardiology 09/13/21 Sulfonator Operator Relationship Specialty Start Date End Date Junacarlos Cuenca DO PCP - General Internal Medicine [...] BE BASED ON THE PRIMARY CLINICAL RECORDS. [employer] [facility]. provides no warranty or guarantee of the accuracy or completeness of information in this document.
--- NOTE | 2024-05-25 12:16 | P.CN_ITS ---
Consult Note: HPI Data of Consult Patient: known to practice within the last 3 years Consult date: 07/27/23 Requesting Physician: Teri Fisher NP Primary Care Provider: Juancarlos Gan DO Consult Narrative Reason for consult: low back pain Narrative: 78yom who presents for management of chronic low back and left knee pain. Today pain 3/10 in low back, increases to 8/10 with activity and walking. Patient denies numbness, tingling, weakness of BLE. Patient finds benefit to PRN baclofen, tylenol, and tramadol. recently we repeated bilateral L4-5 L5-S1 facet RFA to which pt reported significant relief for 3 weeks and mild ongoing relief. continues to engage in HEP 2x/week greater than 6 weeks without benefit. Re cently completed lumbar MRI without contrast with results below. cc:: CC: Teri Fisher NP Review of Systems ROS Status of ROS 10 or more systems reviewed and unremark able except as noted in history and below Musculoskeletal Reports: back pain PFSH PFSH Medical History (Updated 05/25/24 @ 12:19 by Teri Fisher NP) Diabetes ?E11.9 - Type 2 diabetes mellitus without complications (ICD-10) History of shingles ?Z86.19 - Personal history of other infectious and parasitic diseases (ICD- 10) Osteoarthritis ?M19.90 - Unspecified osteoarthritis, unspecified site (ICD-10) Hiatal hernia ?K44.9 - Diaphragmatic hernia without obstruction or gangrene (ICD-10) Acid reflux ?K21.9 - Gastro-esophageal reflux disease without esophagitis (ICD-10) Carpal tunnel syndrome ?G56.00 - Carpal tunnel syndrome, unspecified upper limb (ICD-10) Hearing deficit ?H91.90 - Unspecified hearing loss, unspecified ear (ICD-10) High cholesterol ?E78.00 - Pure hypercholesterolemia, unspecified (ICD-10) Heart murmur ?R01.1 - Cardiac murmur, unspecified (ICD-10) Surgical History Hx of hernia repair ?Z98.890 - Other specified postprocedural states (ICD-10) ?Z87.19 - Personal history of other diseases of the digestive system (ICD-10) H/O total hip arthroplasty ?Z96.649 - Presence of unspecified artificial hip joint (ICD-10) H/O ventral hernia repair ?Z98.890 - Other specified postprocedural states (ICD-10) ?Z87.19 - Personal history of other diseases of the digestive system (ICD-10) Stented coronary artery ?Z95.5 - Presence of coronary angioplasty implant and graft (ICD-10) History of atherectomy ?Z98.890 - Other specified postprocedural states (ICD-10) H/O hemicolectomy ?Z90.49 - Acquired absence of other specified parts of digestive tract (ICD- 10) H/O cystoscopy ?Z98.890 - Other specified postprocedural states (ICD-10) S/P CABG x 4 ?Z95.1 - Presence of aortocoronary bypass graft (ICD-10) Meds Home Medications and Allergies Home Medications ?Medication ?Instructions ?Recorded ?Confirmed ?Type aspirin 81 mg tablet,delayed 81 mg PO DAILY 12/26/22 04/11/24 History release (Adult Aspirin Regimen) atorvastatin 80 mg tablet 80 mg PO DAILY 12/26/22 04/11/24 History calcium 500 mg (as 1 tab PO DAILY 12/26/22 04/11/24 History carbonate)-vitamin D3 10 mcg (400 unit) tablet carvedilol 25 mg tablet 12.5 mg PO Q12H 12/26/22 04/11/24 History cinnamon bark 500 mg capsule 1,000 mg PO DAILY 12/26/22 04/11/24 History (Cinnamon) clopidogrel 75 mg tablet 75 mg PO DAILY 12/26/22 04/11/24 History glipizide 5 mg tablet 10 mg PO BID 12/26/22 04/11/24 History hydrochlorothiazide 25 mg tablet 25 mg PO DAILY 12/26/22 04/11/24 History lisinopril 20 mg tablet 30 mg PO DAILY 12/26/22 04/11/24 History multivitamin 1 tab PO DAILY 12/26/22 04/11/24 History omega-3 fatty acids 1,000 mg 1,000 mg PO DAILY 12/26/22 04/11/24 History capsule pantoprazole 40 mg tablet,delayed 40 mg PO QAM 12/26/22 04/11/24 History release vitamin B complex 1 tab PO DAILY 12/26/22 04/11/24 History zinc acetate 50 mg (zinc) capsule 50 mg PO DAILY 12/26/22 04/11/24 History ondansetron 4 mg disintegrating 4 mg PO Q8H PRN nausea and 05/03/23 04/11/24 Rx tablet vomiting 4 days #10 tabs amlodipine 5 mg tablet 5 mg PO QDAY 06/05/23 04/11/24 History hyoscyamine sulfate 0.125 mg 0.125 mg PO Q6H PRN abdominal pain 06/05/23 04/11/24 Rx tablet (Levsin) #12 tabs baclofen 10 mg tablet 10 mg PO BEDTIME PRN muscle spasm 08/03/23 04/11/24 History tramadol 50 mg tablet 50 mg PO DAILY PRN pain #7 tabs 09/02/23 04/11/24 Rx Allergies Allergy/AdvReac Type Severity Reaction Status Date / Time No Known Drug Allergies Allergy Verified 04/11/24 08:55 Exam Constitutional Documenting provider has reviewed patient's vital signs: yes Common normals: no apparent distress, oriented x3, healthy appearing, alert and well nourished General appearance: cooperative HENMT Common normals: normocephalic, hearing grossly normal bilaterally and moist oral mucous membranes Head and scalp: normocephalic Eye Common normals: PERRL Pupil: PERRL Neck & C-Spine Common normals: full ROM General: normal visual inspection Chest Common normals: inspection of chest normal Respiratory Common normals: normal respiratory effort, no retractions and no use of accessory muscles Back & Pelvis Lumbar spine/lower back: ROM limited, pain with ROM and straight leg raise negative bilaterally Other: bilateral facet loading positive strength 5/5 in BLE sensation intact BLE increased pain with standing/walking improved with sitting and forward flexion Extremity Common normals: normal to inspection and full ROM Neuro Common normals: oriented x3, CN's II-XII intact bilaterally, moves all extremities, no focal motor deficits, no sensory deficits noted and deep tendon reflexes 2+ bilaterally Sensorium/orientation: alert Motor exam: strength 5/5 throughout and no movement abnormalities noted Psych Common normals: mental status grossly normal, thought process normal, cooperative, affect normal, speech normal and activity/motor behavior normal Speech: normal speech Thought process: normal thought process Results Imaging Lumbar MRI: Attestation: I have reviewed the pertinent imaging results. Radiologist's impression: 12-L1: Moderate degenerative disc disease is present without visible neural impingement. L1-L2: Moderate disc space narrowing and disc desiccation. Moderate diffuse disc/osteophyte complex and ligamentum flavum hypertrophy and facet osteoarthropathy. No central canal stenosis. No right foraminal stenosis. Mild left foraminal stenosis L2-L3: Severe disc space narrowing with endplate sclerosis. Moderate diffuse disc/osteophyte complex. Ligament hypertrophy and facet osteoarthritis. Severe narrowing of the central canal, axial image #18. No right, moderate left foraminal stenosis L3-L4: Moderate disc space narrowing and disc desiccation. Moderate diffuse disc/osteophyte complex. Severe ligamentum flavum hypertrophy and facet osteophytes arthropathy. Severe central canal stenosis. Mild to moderate bilateral foraminal stenosis L4-L5: Severe disc space narrowing with endplate sclerosis. Moderate ligamentum flavum hypertrophy and facet osteoarthropathy. Moderate to severe central canal stenosis. Moderate bilateral foraminal stenosis L5-S1: Severe disc space narrowing with endplate sclerosis. Moderate diffuse disc/osteophyte complex. Ligament flavum hypertrophy and facet osteoarthropathy. No central canal stenosis. Moderate to severe bilateral foraminal stenosis Additional Findings Additional findings: If on a controlled substance or opioids, I have checked an [place] report on this patient and there are no aberrancies noted in the prescribing history.??If on a controlled substance or opioid a drug screen was completed and reviewed within the last year, and if there has not been a drug screen completed we ordered one today to monitor higher risk, state monitored pain medication use. As part of providing excellent, safe, comprehensive care, the following was completed at our patient's visit: 1. A medication reconciliation and review to ensure accurate knowledge of current/active medications, including asking our patients to inform us about any [id number] medications or herbal remedies/nutritional supplements/alterna tive remedies. 2. A review to specifically ensure our patients have had annual screening for screening for depression, screening for tobacco use, and screening for unhealthy alcohol use. For concerning screenings had a discussion with the patient, provided patient education, and recommended follow-up with primary care provider when appropriate. If patient noted with a risk of falling, they received education on strength, gait, and balance training to prevent future risk of falling. Assessment and Plan Assessment and Plan (1) Lumbar stenosis with neurogenic claudication: (2) Myofascial pain: (3) Lumbar spondylosis: (4) Muscle spasm: (5) Lumbar degenerative disc disease: Plan lumbar MRI reviewed with pt and , all questions answered. defer NS consultation due to age and risks do not outweigh benefits. defer lumbar ESIs per pt request. s/s of cauda equina syndrome reviewed with pt. defer spinal cord stim/vertiflex per pt request. start gabapentin 100-200mg BID as tolerated, risks vs benefits reviewed. f/u with PCP regarding CKD and management, we will adjust gabapentin dosage if needed in the future based on Cr Cl. f/u 1 month to assess medication regimen
== END 2024-05-25 11:41 | disposition home or self-care (01) ==
LOC: PM 11:40
PROVIDERS: PCP Internal Medicine; Visit Provider Nurse Practitioner
DX: M48.062 Spinal stenosis, lumbar region with neurogenic claudication (principal); M47.816 Spondylosis without myelopathy or radiculopathy, lumbar region; M62.838 Other muscle spasm; M51.369 Other intervertebral disc degeneration, lumbar region without mention of lumbar back pain or lower extremity pain
CPT/HCPCS: G0463

== ENCOUNTER 2024-08-27 10:21 | Outpatient (OUT) | payer MEDICARE, SELFPAY ==
--- OUTSIDE RECORDS SUMMARY | 2024-08-27 10:23 | XMS_ITS | CCD ---
Author Organization [facility] Care Team Providers Care Vice President Of Development Name Role Phone JUANCARLOS CUENCA Referring Unavailable JUANCARLOS CUENCA Primary Care Unavailable Delonte Webb Admitting Unavailable Delonte Webb Attending Unavailable JUANCARLOS CUENCA Referring Unavailable TY AVALOS Surgeon Unavailable TY AVALOS Admitting Unavailable JUANCARLOS CUENCA Primary Care Unavailable TY AVALOS Attending Unavailable [place] Procedure Practitioner UnavailJuancarlos Hollins DO Primary Care Provider Pedro Richardsonmed Unavailable [phone] Dylan VANESSA, ab Ahmed Unavailable JUANCARLOS CUENCA Primary Care Physician [phone] Juancarlos Cuenca Unavailable Juancarlos Cuenca DO Primary [...] Consulting Unavailable BANG, DR VEGA Admitting Unavailable ZIEBER, DR GABY Patel Consulting Unavailable ADAMS ., DR EVAN Mcleod Admitting Unavailable LAMAS ., DR EVAN Mcleod Consulting Unavailable BANG, DR VEGA Primary Care Unavailable LAMAS ., DR EVAN Mcleod Attending Unavailable LELA HUGHES Consulting Unavailable NILL, Nya Patel Attending Unavailable NILL, Nya Patel Attending Unavailable NILL, Nya Patel Attending Unavailable FitbrinaEstrellan Unavailable JAY GONZALEZ Attending Unavailable JUANCARLOS CUENCA Primary Care Unavailable Mauro VANESSA, Hanh Chiang Attending Unavailable Mauro VANESSA, Hanh Chiang Attending Unavailable Mauro VANESSA, Hanh Chiang Attending Unavailable Juancarlos Cuenca Admitting Unavailable Juancarlos Cuenca Attending Unavailable Juancarlos Cuenca Primary Care Unavailable Ej Anthony II Attending UnavailEj Santos II Admitting UnavailJuancarlos Post Primary Care Unavailable DO Juancarlos Cuenca Primary Care Provider MD Ej Anthony II Attending Provider PEDRO RICHARDSON Attending Unavailable Juancarlos Cuenca MD Primary Care Provider Joanna Lin DO Unavailable Mary Kate Shine MD Unavailable PHILLIP BINGHAM Attending Unavailable MATTHEW KEARNS Attending Unavailable PHILLIP BINGHAM Attending Unavailable PHILLIP BINGHAM Attending Unavailable JOANNA LIN Attending Unavailable PHILLIP BINGHAM Attending Unavailable PHILLIP BINGHAM Attending Unavailable JOANNA LIN Attending Unavailable Allergies Allergy Classification Reported Allergen(s) Allergy Type Date of Onset Reaction(s) Facility (20 sources) Morphine; Translations: [morphine] Drug Allergy Unknown [facility] Repository (1 source) Morphine Drug Allergy 12-08-2023 [facility] Repository Medications Current Medications Medication Drug Class(es) Dates Sig (Normalized) Sig (Original) Accu-Chek Guide - (20 sources) Accu-Chek Guide - USE TO TEST HOME BLOOD SUGAR ONCE DAILY for 90 Active amLODIPine 5 mg oral tablet (20 sources) Dihydropyridine Calcium Channel Ciera Start: 09-11-2023 End: 03-09-2024 take 1 tablet by mouth once daily Amlodipine Discontinued 0 .ROUTE .COMPLEX 90 March 03, 2024 7:28am March 09, 2024 1:59pm TAKE 1 TABLET BY MOUTH EVERY DAY FOR 30 DAYS Start: 09-07-2023 End: 09-11-2023 take 1 tablet by mouth once daily amLODIPine (Norvasc) 5 MG tablet TAKE 1 TABLET BY MOUTH EVERY DAY FOR 30 DAYS 09/11/2023 Active Start: 05-17-2023 take 1 tablet by mansoor [...] Status: Ordered baclofen 10 mg oral tablet (16 sources) gamma-Aminobutyri c Acid-ergic Agonist Start: 09-16-2023 baclofen (Lioresal) 10 MG tablet 09/28/2023 Active calcium acetate (1 source) Start: 04-14-2019 calcium [...] 60 tablet 0 10/01/2021 Active Start: 03-11-2021 End: 06-07-2024 take 1 mg by mouth twice daily carvedilol 25 mg Tab mg tab(s), Oral, BID, Refills(s) 0, High blood pressure Start Date: 03/11/21 Status: Ordered take 1 tablet by mansoor th in the morning carvedilol (Coreg) 6.25 MG tablet Take 1 tablet by mouth in the morning and 1 tablet before bedtime. Active End: 10-16-2022 take 1 tablet by mouth once daily carvedilol (COREG) 12.5 mg tablet Take 12.5 mg by mouth once daily. 0 10/16/2022 Discontinued Comment on above: 1 tablet by ORAL/FEE DING TUBE route q 12 HR. Take 12.5 mg by mout h once daily. cholecalciferol 0.05 mg oral capsule (14 sources) Vitamin D take 1 capsule by mouth once daily cholecalciferol (Vitamin D-3) 50 MCG (1999 UT) capsule Take 1 capsule every day by oral route. Active clopidogrel 75 mg oral tablet (20 sources) P2Y12 Platelet Inhibitor Start: End: take 75 mg by mouth once daily Clopidogrel Active 75 MG PO Daily January 23, 2024 3:12pm Comment on above: Take 75 mg by mouth once daily. Cranberry preparation (1 source) Non-Standardized Food Allergenic Extract, Non-Standardized Plant Allergenic Extract Start: cranberry Oral, Daily, Refill(s) 0, Prophylaxis Start Date: 04/14/19 Status: Ordered diclofenac sodium 0.01 mg/mg topical gel (1 source) Nonsteroidal Anti-inflammatory Drug Start: apply 2 g topically once Diclofenac Sodium Active 2 GM TOPICAL as directed 08 18April 21, 2024 12:00am up to 4x's a day empagliflozin 10 mg oral tablet (2 sources) Sodium-Glucose Cotransporter 2 Inhibitor Start: take 1 tablet by mouth every twenty-four hours Jardiance 10 MG 1 tablet Orally Once a day for 30 days Apr, Active enteric contrast (will be provided with radiology test) (1 source) Start: End: take 1 dose by mouth once, then [...] tablet (3 sources) Serotonin Reuptake Inhibitor Start: take 1 tablet by mouth [...] Diuretic Start: take 1 tablet by mouth every other day Hydrochlorothiazide Active 0 .ROUTE .COMPLEX December 23, 2023 10:12am TAKE 1 TABLET BY MOUTH EVERY OTHER DAY Start: 10-12-2023 End: 12-23-2023 take 1 tablet by mouth once daily Hydrochlorothiazide Discontinued 0 .ROUTE .COMPLEX October 12, 2023 5:17pm December 23, 2023 [...] EVERY DAY Start: 09-07-2023 End: 03-18-2024 take 1 tablet by mouth once daily lisinopril 30 MG tablet Take 30 mg by mouth Daily 09/21/2023 Active Start: 04-14-2019 lisinopril Ora l, Daily, Refills(s) [...] 5 mg by mouth o nce daily. oxyCODONE hydrochloride 5 mg oral tablet (14 sources) Opioid Agonist take 1 tablet by mouth every six hours as needed oxyCODONE (Roxicodone) 5 MG immediate release tablet Take 1 tablet by mouth every 6 (six) hours if needed Active pantoprazole 40 mg delayed release oral tablet (20 sources) Proton Pump Inhibitor Start: 01-04-20 take 1 tablet by mouth once daily [...] Take 40 mg by mouth once daily. Tegnmwenjen-Lnjfzpby-Fpk mfenac 1-0.5-0.075 % solution (1 source) Start: 08-24-2024 Pdjmqmhxucg-Dalnwvmh-Wk omfenac 1-0.5-0.075 % solution Indications: Age-related nuclear cataract of right eye Administer 1 drop into affected eye(s) in the morning and 1 drop at noon and 1 drop in the evening and 1 drop before bedtime. 10 mL 1 08/24/2024 Active Super B Complex (1 source) Start: 04-14-2019 Super B Complex Oral, Daily, Refill(s) 0, Prophylaxis Start Date: 04/14/19 Status: Ordered traMADol hydrochloride 50 mg oral tablet (2 sources) Opioid Agonist Start: 09-16-2023 Tramadol Active 50 MG PO As Directed September 16, 2023 1:00am triamcinolone acetonide 0.001 mg/mg topical ointment (14 sources) Corticosteroid triamcinolone (K enalog) 0.1 % ointment Apply topically 2 (two) times a day Active Vitamin D3 (1 source) Start: 04-14-2019 Vitamin [...] aily. CPAP (9 sources) CPAP daily at [facility]. 0 Active Comment on above: daily at bedtime. docosahexaenoic acid/epa (FISH OIL ORAL) (9 sources) docosahexaenoic acid/epa (FISH OIL ORAL) Take by mouth once daily. 0 Active Comment on above: Take by mouth once d aily. gabapentin 100 mg oral capsule (20 sources) Anti-epileptic Agent Start: 4 End: 4 take 100 mg by mouth once daily Gabapentin Discontinued 100 MG PO Daily September 07, 2023 1:00am November 04, 2023 10:53am loratadine 10 mg oral tablet (20 sources) Start: 9 Claritin Oral, Daily, Refills(s) 0, Allergy symptoms [...] oral tablet (18 sources) Antiemetic Start: End: take 25 mg by mouth every twelve hours Meclizine Discontinued 25 MG PO Every 12 hours September 16, 2023 12:16pm November 04, 2023 10:54am take 1 tablet by mansoor th every twelve hours Meclizine HCl 25 MG [...] by mansoor th twice daily with meals. metroNIDAZOLE 500 mg oral tablet (9 sources) Nitroimidazole Antimicrobial End: 06-07-2024 metroNIDAZOLE (Flagyl) 500 MG tablet TAKE 1 TAB BY MOUTH AT 6PM,ANOTHER AT 7PM,AND AGAIN AT 11PM EVENING PRIOR TO SURGERY 06/07/2024 Discontinued (Med list cleanup) MULTI-VITAMIN ORAL (9 sources) MULTI-VITAMIN OR AL Take by mouth once daily. 0 Active Comment on above: Take by mouth once d aily. neomycin sulfate 500 mg oral tablet (9 sources) Aminoglycoside Antibacterial End: 06-07-2024 neomycin (Mycifradin) 500 MG tablet TAKE 2 TABS BY MOUTH AT 6PM,AGAIN AT 7PM,AND 11PM THE EVENING PRIOR TO SURGERY DIRECTED 06/07/2024 Discontinued (Med list cleanup) ondansetron 4 mg disintegrating oral tablet (18 sources) Serotonin-3 Receptor Antagonist Start: 09-07-2023 End: 11-04-2023 Ondansetron Discontinued 4 MG TRANSLINGU Daily September 16, 2023 12:16pm November 04, 2023 10:55am take 1 tablet by mansoor th every twenty-four hours Ondansetron 4 MG 1 [...] BEDTIME tamsulosin hydrochloride 0.4 mg oral capsule (15 sources) alpha-Adrenergic Ciera Start: End: take 1 capsule by mouth once daily tamsulosin (FLOMAX) 0.4 mg Take 1 capsule by mouth once daily. 30 capsule 0 10/01/2021 Active Comment on above: Take 1 capsule by mo uth once daily. Vitamin B Complex (9 sources) [...] Translations: [Other specified diseases of gallbladder] Episodic Cataract (4 sources) Age-related nuclear cataract of right eye; Translations: [Age-related nuclear cataract, right eye] Onset: 08-24-2024 08-24-2024 Chronic Conditions associated with dizziness or vertigo (20 sources) Benign paroxysmal positional vertigo; Translations: [Benign paroxysmal vertigo, bilateral] 03-13-2021 Episodic Coronary atherosclerosis and other heart disease (20 sources) Coronary arteriosclerosis; Translations: [Atherosclerotic heart disease of [place] coronary artery without angina pectoris] Onset: 05-19-2022 [...] prostatic hypertrophy with outflow obstruction 04-14-2019 Chronic Mycoses (6 sources) Pain in toe; Translations: [Tinea unguium] 05-29-2024 Episodic Occlusion or stenosis of precerebral arteries (20 [...] aftercare (9 sources) 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; Translations: [supervisor intermediates (current) use of antithrombotics/antip latelets] 09-13-2021 Episodic [...] of other serum enzymes] 10-19-2023 Episodic Other lower respiratory disease (2 sources) Snoring; Translations: [Snoring] 06-07-2024 Episodic Other nervous system disorders (1 source) Other chronic pain; Translations: [OTHER CHRONIC PAIN] Onset: 11-05-2022 Chronic Other nervous system disorders (2 sources) Bilateral carpal tunnel syndrome; Translations: [Carpal tunnel syndrome, bilateral upper limbs] 06-07-2024 Chronic Other nervous system disorders (2 sources) Ulnar neuropathy; Translations: [Lesion of ulnar nerve, unspecified upper limb] 06-07-2024 Chronic Other nervous system disorders (20 sources) Paresthesia; Translations: [Paresthesia of skin] 06-07-2024 Episodic Other non-traumatic joint disorders (4 sources) [...] hands and/or feet; Translations: [Dyshidrosis [pompholyx]] Episodic Other skin disorders (6 sources) Asteatosis cutis; Translations: [Xerosis cutis] 05-29-2024 Episodic Peripheral and visceral atherosclerosis (17 sources) Atherosclerosis of [place] arteries of extremities with rest pain, right leg; Translations: [Atherosclerosis of [place] artery of right lower extremity with rest [...] other specified parts of digestive tract] Episodic Residual codes; unclassified (2 sources) Not getting enough sleep; Translations: [Insomnia, unspecified] 06-07-2024 Episodic Screening and history of mental health [...] without hemorrhage] Other aftercare (3 sources) Other fdc (current) drug therapy; Translations: [OTH DRY WALL SPRAYER CURRENT DRUG THERAPY] Onset: 09-17-2022 Episodic Other and unspecified benign neoplasm (12 sources) Polyp of colon; Translations: [Polyp of colon] Onset: 06-07-2021 06-07-2021 Episodic Other connective tissue disease (2 sources) Pain of toes of bilateral feet; Translations: [Pain in right toe(s)] 03-20-2024 Episodic Unclassified (1 source) LOW BACK PAIN, UNSPECIFIED; Translations: [LOW BACK PAIN, UNSPECIFIED] Onset: 04-24-2022 Results Test Name Value Interpretation Reference Range Facility [facility] Eye[facility] - bilateralon 0 08-24-2024 Diagnosis: Cataract both eyes (OU) Testing Indication: Performed for preop measurements in the determination of an intraocular lens (IOL) for both eyes (OU) Test Reliability: Good quality both eyes (OU) Interpretation: Good measurements for intraocular lens (IOL) calculation purposes. Calculation made for both eyes (OU). [facility] Radiology Study observation (narrative) [facility] 36on 05-13-2024 36 Patients Daughter called back and confirms he has NOT been taking the Atorvastatin and has not had a prescription, advised the daughter we would send in a new prescription and recheck his cholesterol in 3 month, Lab order mailed to patient to complete june/ july [facility] 36on 05-12-2024 36 Patient calling for echo and lab results. 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 Please advise. Thanks. [facility] Office Visiton 05-04-2024 Follow-up visit [id number] Vu Yee 1945 M Date Provider Department Center 05/04/2024 [facility] Family History Problem Relation Age of Onset Coronary artery disease Mother Coronary artery disease Brother Family Status - Relation Status Age at Mother Brother Level of Service:20157 [place] OFFICE/OUTPATIENT ESTABLISHED MOD MDM 30 MIN [facility] XR knee LT 4V*on 04-21-2024 XR knee LT 4V* [facility] [address] [place] [address] XRay Report Signed Patient: Lizzy Yee MR#: [id number] : 1945 Acct:[id number] Age/Sex: 78 / M ADM Date: 04/21/24 Loc: [facility] Room: Type: [facility] Attending Dr: Ej Anthony II, MD Copies to: Ej Anthony MD Ordering Provider: Ej Anthony MD Date of Service: 04/21/24 XR/XR pelvis 1-2V: M25.562 - Pain in left knee ([id number]) XR/XR knee LT 4V*: M25.562 - Pain [...] PROCESS. Impression dictated by: Jus Jimenez Jr., DRenae04/21/2024 2:51 PM Dictation Location: [facility]14 Transcribed By: PATO 04/21/24 1451 Dictated By: Jus Jimenez Jr, DO 04/21/24 1449 Signed By: 04/21/24 1451 Normal [facility] Keyshawn 10-27-2023 [facility] Telephone ([facility]) LIZZY YEE ([id number]) 1945 M Date Time Provider Department 10/27/[address] [facility] During your visit today, we recorded [...] Patient and or can be reached at [phone]. Thank you. Efrain Loza, RN 10/28/2023 8:30 AM Signed Returned call [...] by EFRAIN ZAMARRIPA on 10/28/23 [facility] CNOVon 10-15-2023 CNOV Office Visit ([facility] ) LIZZY YEE ([id number]) 1945 M Date Time Provider Department 10/15/23 1:[address] [facility] During your visit today, we recorded the following information about you: Temperature Pulse Blood pressure 97.3 degrees 53/minute 127/65 Jay Gonzalez MD 10/15/2023 1:41 PM Signed [facility] Abdominal [facility] - Follow Up Visit [...] Gonzalez MD 10/15/23, 1:38 PM General Surgery [facility] Medical Decision Making: Problems: Low: Stable [...] HLD (hyperlipidemi (more content not included)... Normal [facility] Cholesterol in LDL Calc [Mas s/Vol]on 10-09-2023 Cholesterol in LDL [Mass/Vol] 46.6 mg/dL [facility] Comment on above: <100 mg/dl [id number] 0-129 mg/dl NEAR OR ABOVE [id number] mg/dl BORDERLINE [id number] mg/dl HIGH>190 mg/dl VERY HIGH Cholesterol in VLDL Calc [Ma ss/Vol]on 10-09-2023 Cholesterol in VLDL [Mass/Vol] 14.4 mg/dL [facility] Estimated glomerular filtrat ion rate (GFR) non- Americanon 10-09-2023 GFR/1.73 sq M.predicted among non-blacks MDRD (S/P/Bld) [Vol rate/Area] 54 mL/min/{1.73_m2} >=60 [facility] Globulin Calc (S) [Mass/Vol] on 10-09-2023 Globulin (S) [Mass/Vol] 3.9 g/dL [facility] Glucose mean value [Mass/vol ume] in Blood Estimated from glycated hemoglobinon 10-09-2023 Average glucose Estimated from glycated hemoglobin (Bld) [Mass/Vol] 186 mg/dL [facility] Laboratory - Chemistry and C hemistry - challengeon 10-09-2023 Albumin [Mass/Vol] 3.4 g/dL 3.4-5.0 [facility] ALP [Catalytic activity/Vol] 210 U/L 46-116 [facility] ALT [Catalytic activity/Vol] 236 U/L 16-63 [facility] AST [Catalytic activity/Vol] 169 U/L 15-37 [facility] Bilirubin [Mass/Vol] 0.8 mg/dL 0.2-1.0 [facility] Calcium [Mass/Vol] 9.1 mg/dL 8.5-10.1 [facility] Chloride [Moles/Vol] 101 mmol/L 98-107 [facility] Cholesterol [Mass/Vol] 107 mg/dL <=200 [facility] Cholesterol in HDL [Mass/Vol] 46 mg/dL 40-60 [facility] Comment on above: > or =60 mg/dl - LOW CARDIOVASCULAR RISK<40 mg/dl - HIGH CARDIOVASCULAR RISK CO2 [Moles/Vol] 28.4 mmol/L 21.0-32.0 [facility] Creatinine [Mass/Vol] 1.29 mg/dL 0.70-1.30 [facility] GFR/1.73 sq M.predicted MDRD (S/P/Bld) [Vol rate/Area] mL/min/{1.73_m2} >=60 [facility] Glucose [Mass/Vol] 100 mg/dL 74-106 [facility] Potassium [Moles/Vol] 4.1 mmol/L 3.5-5.1 [facility] Protein [Mass/Vol] 7.3 g/dL 6.4-8.2 [facility] Sodium [Moles/Vol] 140 mmol/L 136-145 [facility] Triglyceride [Mass/Vol] 72 mg/dL <=150 [facility] Urea nitrogen [Mass/Vol] 23.0 mg/dL 7.0-18.0 [facility] Urea nitrogen/Creatinine [Mass ratio] 17.8 mg/mg [facility] Laboratory - Hematology and Cell countson 10-09-2023 HbA1c (Bld) [Mass fraction] 8.1 % 4.5-6.2 [facility] Comment on above: ADA RECOMMENDED LIMI T 4.0 - 6.0ADA THERAPEUTIC TARGET < 7.0ACTION SUGGESTED> 7.0 Microalbumin [Mass/volume] i n Urineon 10-09-2023 Albumin DL <= 20 mg/L (U) [Mass/Vol] mg/dL <=30.0 [facility] No Panel Informationon 10-08 Prostate Specific Antigen Screen 0.27 ng/mL <=4.00 [facility] Serum or plasma albumin/glob ulin mass ratioon 10-09-2023 Albumin/Globulin [Mass ratio] 0.9 {ratio} [facility] Serum or plasma anion gap de terminationon 10-09-2023 Anion gap [Moles/Vol] 14.7 mmol/L [facility] Serum or plasma total choles terol/high density lipoprotein (HDL) cholesterol mass venu 10-09-2023 Cholesterol.total/Cho lesterol in HDL [Mass ratio] 2.3 {ratio} [facility] Comment on above: 3.3 - 4.4 LOW RISK4. 4 - 7.1 AVERAGE RISK7.1 - 11.0 MODERATE RISK>11.0 HIGH RISK Outside Colonoscopyon 2022 Outside Colonoscopy [id number] 0CD:127 Normal [facility] Reminderson 12-18-2022 Reminders - From: Amy Menon LPN To: GSN - Clinical; Sent: 12/18/2022 12:06:16 EDT Show up: 11/16/2025 07:00:00 EDT Subject: colonoscopy recall Due Date/Time: 12/17/2025 07:00:00 EDT Reminder/Recall Patient due for surveillance colonoscopy 12/17/2025. Normal [facility] POINT OF CARE GLUCOSEon 11-19 Glucose [Mass/Vol] 176 mg/dL Critically high 74-106 [facility] Comment on above: Performed By: #### P OCGLUC #### [facility] [address] [address] [address] Rojelio Kingsley POINT OF CARE GLUCOSEon 11-19 Glucose [Mass/Vol] 157 mg/dL Critically high 74-106 [facility] Comment on above: Performed By: #### P OCGLUC #### [facility] [address] [place] [address] Dr. Rojelio Kingsley Consent for Procedure/Surger yon 12-03-2022 Consent for Procedure/Surgery [id number] 0CD:127 Normal [facility] Physician Referralon 023 Physician Referral [id number] 0CD:127 Normal [facility] General Surgery Office/Clini c Noteon 12-02-2022 [...] anastomosis and ventral hernia repair 09/2021 at [facility], they recommend yearly surveillance sigmoidoscopies; patient [...] 1 tab(s), (more content not included)... Normal [facility] Comment on above: Result Comment: Elec tronically Signed By: PELON VANESSA, Nya Nicholson\Date and Time Signed: 12/02/22 11:37 EDT POINT OF CARE GLUCOSEon 04-2 Glucose [Mass/Vol] 121 mg/dL Critically high 74-106 [facility] Comment on above: Performed By: #### P OCGLUC #### [facility] [address] [address] [address] Rojelio Kingsley ALLIED HEALTHon 10-11-2022 ALLIED HEALTH HNO ID: [id number] Author: RT Marisa(R) Service: Radiology Author Type: [...] RT Marisa(R) October 11, 2022 10:29 AM [facility] CT ABD/PEL WO IVCONon 2022 CT ABD/PEL WO IVCON * * *Final Report* * * DATE OF EXAM: Oct 11 2022 10:30AM [facility] 0531 - CT ABD/PEL [...] site. Lower thorax: Lower lungs are clear. Manager Video Games (topogram) images: Unremarkable. IMPRESSION: Midline fat-containing upper abdominal hernia. Help Desk Support Specialist: [facility] Transcribe Date/Time: Oct 13 2022 7:57A Dictated by : YANICK RIVAS MD This examination was interpreted and the report reviewed and electronically signed by: YANICK RIVAS MD on Oct 13 2022 8:06AM EST [id number] Normal [facility] Consent for Procedure/Surger yon 09-17-2022 Consent for Procedure/Surgery [id number] 0CD:127 Normal [facility] RAD - Ultrasound Reporton RAD - Ultrasound Report [id number] 0CD:127 Normal [facility] Ambulatory Visit Summaryon 0 09-16-2022 Ambulatory [...] no longer receiving treatment for. Hyperlipidemia Normal [facility] Ambulatory Visit Summary LIZZY YEE :1945 Visit Date:09/16/2022 Ambulatory Visit Instructions Your Care Team Attending Physician - Nya BIRD MD Primary Care Physician - JUANCARLOS CUENCA DO [...] no longer receiving treatment for. Hyperlipidemia Normal [facility] General Surgery Office/Clini c Noteon 09-16-2022 [...] anastomosis and ventral hernia repair 09/2021 at [facility]; requires yearly flexible sigmoidoscopy for surveillance. [...] Oral, Nathalie (more content not included)... Normal [facility] Comment on above: Result Comment: Elec tronically Signed By: PELON VANESSA, Nya Nicholson\Date and Time Signed: 09/16/22 11:17 EST Alanine Aminotransferaseon 0 - ALT [Catalytic activity/Vol] 30 U/L Normal 16-63 [facility] Other Comment on above: Performed By: #### B MP, ALT, LIPID #### [facility] [address] [place] [address] Dr. Rojelio Kingsley Basic Metabolic Panelon - Calcium [Mass/Vol] 9.8929509 mg/dL 8.5-10 .1 mg/dL [facility] Other CO2 [Moles/Vol] 25.43931906 mmol/L 21.0-3 2.0 mmol/L [facility] Other Creatinine [Mass/Vol] 1.46523430 mg/dL Critically high 0.70-1.30 mg/dL [facility] Other Potassium [Moles/Vol] 4.15869456 mmol/L 3 .5-5.1 mmol/L [facility] Other Urea nitrogen [Mass/Vol] 16.0288005 mg/dL 7.0-18.0 mg/dL [facility] Other Basic Metabolic Panel see note [facility] Other Basic Metabolic Panel 141 mmol/L 136-14 5 mmol/L [facility] Other Basic Metabolic Panel 134 mg/dL Critically high 74-106 mg /dL [facility] Other Basic Metabolic Panel 51 mL/min/1.73m2 Critically low >=60 mL/min/1.73m 2 [facility] Other Basic Metabolic Panel >60 mL/min/1.73m2 > =60 mL/min/1.73m 2 [facility] Other Anion gap [Moles/Vol] 15.2 mmol/L Normal No [facility] [employer] Other Comment on above: Performed By: #### B MP, ALT, LIPID #### [facility] [address] [address] [address] Rojelio Kingsley Chloride [Moles/Vol] 105 mmol/L Normal 98-107 [facility] [employer] Other Comment on above: Performed By: #### B MP, ALT, LIPID #### [facility] [address] [address] [address] Rojelio Kingsley Urea nitrogen/Creatinine [Mass ratio] 11.8 mg/mg Normal [facility] [employer] Other Comment on above: Performed By: #### B MP, ALT, LIPID #### [facility] [address] [address] [address] Rojelio Kingsley CBC AUTO DIFFon 09-12-2022 BASO # 0.0 103/ul Normal 0.0-0.1 [facility] Comment on above: Performed By: #### C BC #### [facility] [address] [place] [address] Dr. Rojelio Kingsley Basophils/100 WBC (Bld) 0.4 % Normal 0.2-2.0 [facility] Comment on above: Performed By: #### C BC #### [facility] [address] [place] [address] Dr. Rojelio Kingsley EO # 0.3 103/ul Normal 0.0-0.7 [facility] Comment on above: Performed By: #### C BC #### [facility] [address] [place] [address] Dr. Rojelio Kingsley Eosinophils/100 WBC (Bld) 3.6 % Normal 0.9-7.0 [facility] Comment on above: Performed By: #### C BC #### [facility] [address] [place] [address] Dr. Rojelio Kingsley Erythrocyte distribution width (RBC) [Ratio] 14.1 % Normal 11.0-15.0 [facility] Comment on above: Performed By: #### C BC #### [facility] [address] [place] [address] Dr. Rojelio Kingsley Hematocrit (Bld) [Volume fraction] 40.1 % Critically low 42.0-54.0 [facility] Comment on above: Performed By: #### C BC #### [facility] [address] [place] [address] Dr. Rojelio Kingsley Hemoglobin (Bld) [Mass/Vol] 13.4 g/dL Critically low 14.0-18.0 [facility] Comment on above: Performed By: #### C BC #### [facility] [address] [place] [address] Dr. Rojelio Kingsley IG # 0.02 10e3/ul Normal 0.00-0.03 [facility] Comment on above: Performed By: #### C BC #### [facility] [address] [place] [address] Dr. Rojelio Kingsley IG % 0.2 % Normal 0.0-0.5 [facility] Comment on above: Performed By: #### C BC #### [facility] [address] [place] [address] Dr. Rojelio Kingsley LYMPH # 1.8 103/ul Normal 1.2-3.8 [facility] Comment on above: Performed By: #### C BC #### [facility] [address] [place] [address] Dr. Rojelio Kingsley Lymphocytes/100 WBC (Bld) 21.9 % Normal 20.5-60.0 [facility] Comment on above: Performed By: #### C BC #### [facility] [address] [place] [address] Dr. Rojelio Kingsley MANUAL DIFF REQ NO Normal [facility] Comment on above: Performed By: #### C BC #### [facility] [address] [place] [address] Dr. Rojelio Kingsley MCH (RBC) [Entitic mass] 30.6 pg Normal 25.9-34.0 [facility] Comment on above: Performed By: #### C BC #### [facility] [address] [place] [address] Dr. Rojelio Kingsley MCHC (RBC) [Mass/Vol] 33.4 g/dL Normal 29.9-35.2 [facility] Comment on above: Performed By: #### C BC #### [facility] [address] [place] [address] Dr. Rojelio Kingsley MCV (RBC) [Entitic vol] 91.6 fL Normal 80.0-94.0 [facility] Comment on above: Performed By: #### C BC #### [facility] [address] [place] [address] Dr. Rojelio Kingsley MONO # 0.8 103/ul Normal 0.3-0.8 [facility] Comment on above: Performed By: #### C BC #### [facility] [address] [place] [address] Dr. Rojelio Kinsgley Monocytes/100 WBC (Bld) 9.3 % Normal 1.7-12.0 [facility] Comment on above: Performed By: #### C BC #### [facility] [address] [address] [address] Rojelio Kingsley NEUT # 5.4 103/ul Normal 1.4-6.5 [facility] Comment on above: Performed By: #### C BC #### [facility] [address] [address] [address] Rojelio Kingsley Neutrophils/100 WBC (Bld) 64.6 % Normal 43.0-75.0 [facility] Comment on above: Performed By: #### C BC #### [facility] [address] [address] [address] Rojelio Kingsley Platelet mean volume (Bld) [Entitic vol] 10.3 fL Normal 9.5-13.5 [facility] Comment on above: Performed By: #### C BC #### [facility] [address] [address] [address] Rojelio Kingsley PLT 214 103/ul Normal 150-450 [facility] Comment on above: Performed By: #### C BC #### [facility] [address] [address] [address] Rojelio Kingsley RBC 4.38 106/ul Critically low 4.70-6.10 [facility] Comment on above: Performed By: #### C BC #### [facility] [address] [address] [address] Rojelio Kingsley WBC 8.4 103/ul Normal 4.0-11.0 [facility] Comment on above: Performed By: #### C BC #### [facility] [address] [address] [address] Rojelio Kingsley GLYCOHEMOGLOBIN A1Con 2022 ADA RECOMMENDATION SEE BELOW Normal [facility] Comment on above: Result Comment: ADA RECOMMENDED LIMIT 4.0 - 6.0 ADA THERAPEUTIC TARGET < 7.0 ACTION SUGGESTED > 7.0 Performed By: #### P OCGLUC #### [facility] [address] [address] [address] Rojelio Kingsley Glucose [Mass/Vol] 169 mg/dL Normal [facility] Comment on above: Performed By: #### P OCGLUC #### [facility] [address] [address] [address] Rojelio Kingsley HbA1c (Bld) [Mass fraction] 7.5 % Critically high 4.5-6.2 [facility] Comment on above: Performed By: #### P OCGLUC #### [facility] [address] [address] [address] Rojelio Kingsley LIPID PROFILEon 09-12-2022 CHOL-HDL RATIO NORM SEE BELOW Normal [facility] Comment on above: Result Comment: 3.3 - 4.4 LOW RISK 4.4 - 7.1 AVERAGE RISK 7.1 - 11.0 MODERATE RISK >11.0 HIGH RISK Performed By: #### B MP, ALT, LIPID #### [facility] [address] [address] [address] Rojelio Kingsley Cholesterol in LDL [Mass/Vol] 31.2 mg/dL Normal [facility] Comment on above: Performed By: #### B MP, ALT, LIPID #### [facility] [address] [address] [address] Rojelio Kingsley HDL NORMAL > or = 60 mg/dl - LO W CARDIOVASCULAR RISK <40 mg/dl - HIGH CARDIOVASCULAR RISK Normal [facility] Comment on above: Performed By: #### B MP, ALT, LIPID #### [facility] [address] [address] [address] Rojelio Kingsley LDL CALC NORMAL SEE BELOW Normal [facility] Comment on above: Result Comment: <100 mg/dl OPTIMAL 100 - 129 mg/dl NEAR OR ABOVE OPTIMAL 130 - 159 mg/dl BORDERLINE HIGH 160 - 189 mg/dl HIGH >190 mg/dl VERY HIGH Performed By: #### B MP, ALT, LIPID #### [facility] [address] [address] [address] Rojelio Kingsley VLDL CALC 40.8 mg/dL Normal [facility] Comment on above: Performed By: #### B MP, ALT, LIPID #### [facility] [address] [address] [address] Rojelio Kingsley Lipid Panelon 09-12-2022 Lipid Panel > or = 60 mg/dl - LO W CARDIOVASCULAR RISK <40 mg/dl - HIGH CARDIOVASCULAR RISK [facility] [employer] Other Lipid Panel SEE BELOW [facility] Other Lipid Panel 31.2 mg/dL [facility] Other Lipid Panel 40.8 mg/dL [facility] Other Cholesterol [Mass/Vol] 115 mg/dL Normal <=200 [facility] Other Comment on above: Performed By: #### B MP, ALT, LIPID #### [facility] [address] [address] [address] Rojelio Kingsley Cholesterol in HDL [Mass/Vol] 43 mg/dL Normal 40-60 [facility] Other Comment on above: Performed By: #### B MP, ALT, LIPID #### [facility] [address] [address] [address] Rojelio Kingsley Cholesterol.total/Cho lesterol in HDL [Mass ratio] 2.7 {ratio} Normal [facility] [employer] Other Comment on above: Performed By: #### B MP, ALT, LIPID #### [facility] [address] [address] [address] Rojelio Kingsley Triglyceride [Mass/Vol] 204 mg/dL Critically high <=150 [facility] [employer] Other Comment on above: Performed By: #### B MP, ALT, LIPID #### [facility] [address] [address] [address] Rojelio Kingsley MICROALBUMIN, RAND URon - mALB 2.1 mg/L Normal <=30.0 [facility] Comment on above: Performed By: #### M ALBR #### [facility] [address] [place] [address] Dr. Rojelio Kingsley PROF CHEM 8 (BAS METB)on Calcium [Mass/Vol] 9.6 mg/dL Normal 8.5-10.1 [facility] Comment on above: Performed By: #### B MP, ALT, LIPID #### [facility] [address] [address] [address] Rojelio Kingsley CO2 [Moles/Vol] 25.1 mmol/L Normal 21.0-32.0 [facility] Comment on above: Performed By: #### B MP, ALT, LIPID #### [facility] [address] [address] [address] Rojelio Kingsley Creatinine [Mass/Vol] 1.36 mg/dL Critically high 0.70-1.30 [facility] Comment on above: Performed By: #### B MP, ALT, LIPID #### [facility] [address] [place] [address] Dr. Rojelio Kingsley EGFR-AF MOLDOVAN >60 Normal >=60 [facility] Comment on above: Performed By: #### B MP, ALT, LIPID #### [facility] [address] [place] [address] Dr. Rojelio Kingsley EGFR-NON AF MOLDOVAN 51 mL/min/1.73m2 Critically low >=60 [facility] Comment on above: Performed By: #### B MP, ALT, LIPID #### [facility] [address] [place] [address] Dr. Rojelio Kingsley Glucose [Mass/Vol] 134 mg/dL Critically high 74-106 [facility] Comment on above: Performed By: #### B MP, ALT, LIPID #### [facility] [address] [place] [address] Dr. Rojelio Kingsley Potassium [Moles/Vol] 4.3 mmol/L Normal 3.5-5.1 [facility] Comment on above: Performed By: #### B MP, ALT, LIPID #### [facility] [address] [place] [address] Dr. Rojelio Kingsley Sodium [Moles/Vol] 141 mmol/L Normal 136-145 [facility] Comment on above: Performed By: #### B MP, ALT, LIPID #### [facility] [address] [place] [address] Dr. Rojelio Kingsley Urea nitrogen [Mass/Vol] 16.0 mg/dL Normal 7.0-18.0 [facility] Comment on above: Performed By: #### B MP, ALT, LIPID #### [facility] [address] [address] [address] Rojelio Kingsley US CAROTID ART BILon [...] GABY PADILLA Date: 2022-09-12 15:22 Normal [facility] US CAROTID ART ZHENG [facility] Other POINT OF CARE GLUCOSEon 06-19 Glucose [Mass/Vol] 106 mg/dL Normal 74-106 [facility] Comment on above: Performed By: #### P OCGLUC #### [facility] [address] [address] [address] Rojelio Kingsley Covid-19 PCR (CVDTB)on SARS-CoV-2 (COVID-19) RNA MITCHELL+probe Ql (Unsp spec) Not detected Normal NOT DETECTED [facility] Comment on above: Result Comment: This test is not yet approved or cleared by the [place] FDA. When there are no FDA-approved or cleared tests available, and other criteria are met, FDA can make tests available under an emergency access mechanism called an Emergency Use Authorization (EUA). The EUA for this test is supported by the [place] of Health and Human Service's (HHS's) declaration [...] SARS-CoV-2. Performed By: #### P OCGLUC #### [facility] [address] [place] [address] Dr. Rojelio Kingsley POINT OF CARE GLUCOSEon 10-2 Glucose [Mass/Vol] 129 mg/dL Critically high 74-106 [facility] Comment on above: Performed By: #### P OCGLUC #### [facility] [address] [place] [address] Dr. Rojelio Kingsley POINT OF CARE GLUCOSEon 09 Glucose [Mass/Vol] 116 mg/dL Critically high 74-106 [facility] Comment on above: Performed By: #### P OCGLUC #### [facility] [address] [place] [address] Dr. Rojelio Kingsley XR LSPINE 2_3 VIEWSon [...] GABY PADILLA Date: 2022-03-05 13:06 Normal [facility] CBC AUTO DIFFon 02-22-2022 BASO # 0.0 103/ul Normal 0.0-0.1 [facility] Comment on above: Performed By: #### P OCGLUC #### [facility] [address] [address] [address] Rojelio Kingsley Basophils/100 WBC (Bld) 0.4 % Normal 0.2-2.0 [facility] Comment on above: Performed By: #### P OCGLUC #### [facility] [address] [address] [address] Rojelio Kingsley EO # 0.3 103/ul Normal 0.0-0.7 [facility] Comment on above: Performed By: #### P OCGLUC #### [facility] [address] [place] [address] Dr. Rojelio Kingsley Eosinophils/100 WBC (Bld) 3.0 % Normal 0.9-7.0 [facility] Comment on above: Performed By: #### P OCGLUC #### [facility] [address] [address] [address] Rojelio Kingsley Erythrocyte distribution width (RBC) [Ratio] 14.4 % Normal 11.0-15.0 [facility] Comment on above: Performed By: #### P OCGLUC #### [facility] [address] [place] [address] Dr. Rojelio Kingsley Hematocrit (Bld) [Volume fraction] 37.1 % Critically low 42.0-54.0 [facility] Comment on above: Performed By: #### P OCGLUC #### [facility] [address] [place] [address] Dr. Rojelio Kingsley Hemoglobin (Bld) [Mass/Vol] 12.2 g/dL Critically low 14.0-18.0 [facility] Comment on above: Performed By: #### P OCGLUC #### [facility] [address] [place] [address] Dr. Rojelio Kingsley IG # 0.03 10e3/ul Normal 0.00-0.03 [facility] Comment on above: Performed By: #### P OCGLUC #### [facility] [address] [address] [address] Rojelio Kingsley IG % 0.4 % Normal 0.0-0.5 [facility] Comment on above: Performed By: #### P OCGLUC #### [facility] [address] [address] [address] Rojelio Kingsley LYMPH # 1.8 103/ul Normal 1.2-3.8 [facility] Comment on above: Performed By: #### P OCGLUC #### [facility] [address] [address] [address] Rojelio Kingsley Lymphocytes/100 WBC (Bld) 21.6 % Normal 20.5-60.0 [facility] Comment on above: Performed By: #### P OCGLUC #### [facility] [address] [place] [address] Dr. Rojelio Kingsley MANUAL DIFF REQ NO Normal [facility] Comment on above: Performed By: #### P OCGLUC #### [facility] [address] [place] [address] Dr. Rojelio Kingsley MCH (RBC) [Entitic mass] 30.0 pg Normal 25.9-34.0 [facility] Comment on above: Performed By: #### P OCGLUC #### [facility] [address] [place] [address] Dr. Rojelio Kinsgley MCHC (RBC) [Mass/Vol] 32.9 g/dL Normal 29.9-35.2 [facility] Comment on above: Performed By: #### P OCGLUC #### [facility] [address] [place] [address] Dr. Rojelio Kingsley MCV (RBC) [Entitic vol] 91.4 fL Normal 80.0-94.0 [facility] Comment on above: Performed By: #### P OCGLUC #### [facility] [address] [place] [address] Dr. Rojelio Kingsley MONO # 0.7 103/ul Normal 0.3-0.8 [facility] Comment on above: Performed By: #### P OCGLUC #### [facility] [address] [address] [address] Rojelio Kingsley Monocytes/100 WBC (Bld) 8.4 % Normal 1.7-12.0 [facility] Comment on above: Performed By: #### P OCGLUC #### [facility] [address] [address] [address] Rojelio Kingsley NEUT # 5.5 103/ul Normal 1.4-6.5 [facility] Comment on above: Performed By: #### P OCGLUC #### [facility] [address] [address] [address] Rojelio Kingsley Neutrophils/100 WBC (Bld) 66.2 % Normal 43.0-75.0 [facility] Comment on above: Performed By: #### P OCGLUC #### [facility] [address] [place] [address] Dr. Rojelio Kingsley Platelet mean volume (Bld) [Entitic vol] 10.3 fL Normal 9.5-13.5 [facility] Comment on above: Performed By: #### P OCGLUC #### [facility] [address] [address] [address] Rojelio Kingsley PLT 202 103/ul Normal 150-450 [facility] Comment on above: Performed By: #### P OCGLUC #### [facility] [address] [address] [address] Rojelio Kingsley RBC 4.06 106/ul Critically low 4.70-6.10 [facility] Comment on above: Performed By: #### P OCGLUC #### [facility] [address] [place] [address] Dr. Rojelio Kingsley WBC 8.3 103/ul Normal 4.0-11.0 [facility] Comment on above: Performed By: #### P OCGLUC #### [facility] [address] [place] [address] Dr. Rojelio Kingsley GLYCOHEMOGLOBIN A1Con 2021 ADA RECOMMENDATION SEE BELOW Normal [facility] Comment on above: Result Comment: ADA RECOMMENDED LIMIT 4.0 - 6.0 ADA THERAPEUTIC TARGET < 7.0 ACTION SUGGESTED > 7.0 Performed By: #### A 1C #### [facility] [address] [address] [address] Rojelio Kingsley Glucose [Mass/Vol] 151 mg/dL Normal [facility] Comment on above: Performed By: #### A 1C #### [facility] [address] [place], [place] [address] Dr. Rojelio Kingsley HbA1c (Bld) [Mass fraction] 6.9 % Critically high 4.5-6.2 [facility] Comment on above: Performed By: #### A 1C #### [facility] [address] [address] [address] Rojelio Kingsley Consultation Noteon 02-19-20 22 Consultation Note [id number] 0CD:[id number] Normal [facility] KNEE RIGHT 3 [facility] 1 KNEE RIGHT 3 [facility] Department of Radiology [address] [place] [id number] ======== Patient Name: LIZZY YEE : 1945 Sex: M Age: Race: White Pt. Location: Patient Status: Ordered Date: 01/09/2021 1:10:00 PM Completed Date: 01/09/2021 01:11 PM Requesting Provider: TY AVALOS Attending Provider: Report Copy To: Signs & Symptoms: Z96.659 Presence of unspecified artificial knee joint I10 History: Comments: Exam: KNEE RIGHT 3 [facility] ======== KNEE RIGHT 3 VWS HISTORY: Knee replacement, follow-up. COMPARISON: 12/26/2020. IMPRESSION: 1. Redemonstrated total knee prosthesis, no hardware complication or acute abnormality. No significant joint effusion. Mild soft tissue swelling noted. Electronically signed: Mitul Banks. Transcribed by: [email or web address], User Resident: Electronically Signed by: MITUL BANKS @ 01/09/2021 08:47 PM Normal [facility] POC GLUCOSE LABon 12-29-2020 Glucose [Mass/Vol] 194 mg/dL High 70-100 [facility] Comment on above: Performed By: #### [id number] #### [facility] [address] [place] [address], [place] Glucose [Mass/Vol] 125 mg/dL High 70-100 [facility] Comment on above: Performed By: #### [id number] #### [facility] [address] [place] [address], [place] POC GLUCOSE LABon 12-28-2020 Glucose [Mass/Vol] 197 mg/dL High 70-100 [facility] Comment on above: Performed By: #### [id number] #### [facility] [address] [place] [address], [place] Glucose [Mass/Vol] 177 mg/dL High 70-100 [facility] Comment on above: Performed By: #### [id number] #### [facility] [address] [place] [address], [place] Glucose [Mass/Vol] 215 mg/dL High 70-100 [facility] Comment on above: Performed By: #### [id number] #### [facility] [address] [place] [address], [place] Glucose [Mass/Vol] 152 mg/dL High 70-100 [facility] Comment on above: Performed By: #### [id number] #### [facility] [address] [place] [address], [place] BASIC METABOLIC PANELon 06- Calcium [Mass/Vol] 8.2 mg/dL Low 8.6-10.3 [facility] Comment on above: Order Comment: No: D o not add to previous draw Performed By: #### [id number] #### [facility] [address] [place] [address], [place] Chloride [Moles/Vol] 102 mmol/L Normal 98-107 [facility] Comment on above: Order Comment: No: D o not add to previous draw Performed By: #### [id number] #### [facility] [address] [place] [address], [place] CO2 [Moles/Vol] 23 mmol/L Normal 21-31 [facility] Comment on above: Order Comment: No: D o not add to previous draw Performed By: #### [id number] #### [facility] [address] [place] [address], [place] Creatinine [Mass/Vol] 0.97 mg/dL Normal 0.70-1.30 [facility] Comment on above: Order Comment: No: D o not add to previous draw Performed By: #### [id number] #### [facility] [address] [place] [address], [place] GFR/1.73 sq M.predicted among blacks MDRD (S/P/Bld) [Vol rate/Area] mL/min/{1.73_m2} Normal >60 [facility] Comment on above: Order Comment: No: D o not add to previous draw Result Comment: Calc ulation may not be valid for patients over 70 years Performed By: #### [id number] #### [facility] [address] [place] [address], [place] GFR/1.73 sq M.predicted among non-blacks MDRD (S/P/Bld) [Vol rate/Area] mL/min/{1.73_m2} Normal >60 [facility] Comment on above: Order Comment: No: D o not add to previous draw Result Comment: Calc ulation may not be valid for patients over 70 years Performed By: #### [id number] #### [facility] [address] [place] [address], [place] Glucose [Mass/Vol] 191 mg/dL High 70-100 [facility] Comment on above: Order Comment: No: D o not add to previous draw Performed By: #### [id number] #### [facility] [address] [place] [address], [place] Potassium [Moles/Vol] 3.8 mmol/L Normal 3.5-5.1 [facility] Comment on above: Order Comment: No: D o not add to previous draw Performed By: #### [id number] #### [facility] [address] [place] [address], [place] Sodium [Moles/Vol] 134 mmol/L Low 136-145 [facility] Comment on above: Order Comment: No: D o not add to previous draw Performed By: #### [id number] #### [facility] [address] [place] [address], [place] Urea nitrogen [Mass/Vol] 23 mg/dL Normal 7-25 [facility] Comment on above: Order Comment: No: D o not add to previous draw Performed By: #### [id number] #### [facility] [address] [place] [address], [place] CBC COMPLETE BLOOD COUNTon 0 - Erythrocyte distribution width (RBC) [Ratio] 13.3 % Normal 11.5-15.0 [facility] Comment on above: Order Comment: No: D o not add to previous draw Performed By: #### [id number] #### [facility] [address] [place] [address], [facility] Hematocrit (Bld) [Volume fraction] 35.4 % Low 39.0-50.0 [facility] Comment on above: Order Comment: No: D o not add to previous draw Performed By: #### [id number] #### [facility] [address] [place] [address], [facility] [facility] Hemoglobin (Bld) [Mass/Vol] 11.7 g/dL Low 13.0-17.0 The [facility] Comment on above: Order Comment: No: D o not add to previous draw Performed By: #### 8 [id number] #### [facility] [address] [place] [address], [facility] MCH (RBC) [Entitic mass] 31.2 pg Normal 27.0-33.0 The [facility] Comment on above: Order Comment: No: D o not add to previous draw Performed By: #### 8 [id number] #### [facility] [address] [place] [address], [facility] MCHC (RBC) [Mass/Vol] 33.1 g/dL Normal 32.0-35.0 The [facility] Comment on above: Order Comment: No: D o not add to previous draw Performed By: #### 8 [id number] #### [facility] [address] [place] [address], [facility] MCV (RBC) [Entitic vol] 94.4 fL Normal 82.0-98.0 The [facility] Comment on above: Order Comment: No: D o not add to previous draw Performed By: #### 8 [id number] #### [facility] [address] [place] [id number], [facility] Nucleated RBC/100 WBC (Bld) [Ratio] 0 % Normal 0-0 The [facility] Comment on above: Order Comment: No: D o not add to previous draw Performed By: #### 8 [id number] #### [facility] [address] PLAT CNT 177 10*3/uL Normal 150-400 The [facility] Comment on above: Order Comment: No: D o not add to previous draw Performed By: #### 8 [id number] #### [facility] [address] [place] [address], [facility] RBC (Bld) [#/Vol] 3.75 10*6/uL Low 4.20-5.70 [facility] Comment on above: Order Comment: No: D o not add to previous draw Performed By: #### 8 [id number] #### [facility] [address] [address], [facility] WBC (Bld) [#/Vol] 16.83 10*3/uL High 4.00-10.60 [facility] Comment on above: Order Comment: No: D o not add to previous draw Performed By: #### 8 [id number] #### [facility] [address] Operative Reporton Operative Report MR#: [id number] I [facility] Pt. Name: Lizzy Yee Room #: [id number] Discharge Date: Birthdate: 1945 OPERATIVE REPORT DATE [...] cemented posterior stabilized total knee arthroplasty using [place] implants. COMPLICATIONS: None. TOTAL TOURNIQUET TIME: 92 [...] surgery. He has been cleared by his dynamo tender for his surgery as well. The patient signed the consent form. Site was marked. We proceed with IV antibiotics in the form of 2 g of Ancef within an hour of the incision. PROCEDURE IN DETAIL: After written consent obtained, site was marked. The patient was taken to the [facility] OR and was seen by [...] content not included)... Normal The [facility] POC GLUCOSE LABon 12-27-2020 Glucose [Mass/Vol] 200 mg/dL High 70-100 The [facility] Comment on above: Performed By: #### 8 [id number] #### [facility] [address] [place] [address], [facility] Glucose [Mass/Vol] 186 mg/dL High 70-100 The [facility] Comment on above: Performed By: #### 8 [id number] #### [facility] [address] [place] [address], [facility] Glucose [Mass/Vol] 250 mg/dL High 70-100 The [facility] Comment on above: Performed By: #### 8 [id number] #### [facility] [address] [place] [address], [place] Glucose [Mass/Vol] 177 mg/dL High 70-100 [facility] Comment on above: Performed By: #### 8 [id number] #### [facility] [address] [place] [address], [place] POC GLUCOSE LABon 12-26-2020 Glucose [Mass/Vol] 230 mg/dL High 70-100 [facility] Comment on above: Performed By: #### 8 [id number] #### [facility] [address] [place] [address], [place] Glucose [Mass/Vol] 278 mg/dL High 70-100 [facility] Comment on above: Performed By: #### 8 [id number] #### [facility] [address] [place] [address], [place] Glucose [Mass/Vol] 174 mg/dL High 70-100 [facility] Comment on above: Performed By: #### 8 [id number] #### [facility] [address] [place] [address], [place] Glucose [Mass/Vol] 146 mg/dL High 70-100 [facility] Comment on above: Performed By: #### 8 [id number] #### [facility] [address] [place] [address], [place] PORTABLE KNEE RIGHT 2 [facility] 12-26-2020 PORTABLE KNEE RIGHT 2 [facility] Department of Radiology [address] [place] [phone] ======== Patient Name: LIZZY YEE : 1945 Sex: M Age: Race: White Pt. Location: [id number] Patient Status: I Ordered Date: 12/26/2020 7:05:00 [...] replacement. Electronically signed: José Thornton. Transcribed by: [email or web address], User Resident: JOSÉ THORNTON Electronically Signed by: JOSÉ THORNTON @ 12/26/2020 03:28 PM I personally read this/these film(s) with this resident Normal The [facility] Comment on above: Order Comment: Hardw are Evaluation, In PACU; HIP RIGHT 1 OR 2 VWS WITH PE LVISon 10-05-2020 HIP RIGHT 1 OR 2 VWS WITH PELVIS [facility] Department of Radiology [address] [place] [phone] ======== Patient Name: LIZZY YEE : [...] narrowing. Electronically signed: Mitul Banks. Transcribed by: [email or web address], User Resident: Electronically Signed by: MITUL BANKS @ 10/05/2020 01:08 PM Normal The [facility] Comment on above: Order Comment: Views (X-RAY, HIP): AP Pelvis, X-Table Lateral Hip , Weight Bearing?: Y KNEE LEFT 4VWSon 08-20-2020 KNEE LEFT 4VWS [facility] Department of Radiology [address] [place] [phone] ======== Patient Name: LIZZY YEE : 1945 Sex: M Age: Race: White Pt. Location: 84 Patient Status: O Ordered Date: 08/20/2020 8:10:00 AM Completed Date: 08/20/2020 08:14 AM Requesting Provider: CEDRICK WILD Attending Provider: CEDRICK WILD Report Copy To: Signs & Symptoms: M25.569 Pain in unspecified knee I10 History: [place] Comments: Views (X-RAY, KNEE): AP, Lateral, Tunnel, [place] , Weight Bearing?: Y Exam: KNEE LEFT 4VWS ======== KNEE LEFT 4VWS 08/20/2020 8:14 AM CLINICAL INDICATIONS: M25.569 Pain in unspecified knee I10 TECHNOLOGIST COMMENTS: Patient states having bilateral knee pain. QUESTION FOR THE RADIOLOGIST: Views (X-RAY, KNEE): AP, Lateral, Tunnel, [place] , Weight Bearing?: Y PROTOCOL: AP,Lateral,Tunnel and [...] reports Electronically signed: Ej Francisco. Transcribed by: [email or web address], User Resident: TAMERA MARIE Electronically Signed by: EJ FRANCISCO @ 08/20/2020 08:41 AM I personally read this/these film(s) with this resident Normal The [facility] Comment on above: Order Comment: Views (X-RAY, KNEE): AP, Lateral, Tunnel, [place] , Weight Bearing?: Y KNEE RIGHT 4 [facility] KNEE RIGHT 4 [facility] Department of Radiology [address] [place] [phone] ======== Patient Name: LIZZY YEE : 1945 Sex: M Age: Race: White Pt. Location: Patient Status: O Ordered Date: 08/20/2020 8:10:00 AM Completed Date: 08/20/2020 08:14 AM Requesting Provider: CEDRICK WILD Attending Provider: CEDRICK WILD Report Copy To: Signs & Symptoms: M25.569 Pain in unspecified knee I10 History: [place] Comments: Views (X-RAY, KNEE): AP, Lateral, Tunnel, [place] , Weight Bearing?: Y Exam: KNEE RIGHT 4 [facility] ======== KNEE RIGHT 4 [facility] 08/20/2020 8:14 AM SIGNS AND SYMPTOMS: M25.569 Pain in unspecified knee I10 TECHNOLOGIST COMMENTS: Patient states having bilateral knee pain. QUESTION FOR THE RADIOLOGIST: Views (X-RAY, KNEE): AP, Lateral, Tunnel, [place] , Weight Bearing?: Y PROTOCOL: AP,Lateral,Tunnel and [...] knee. Electronically signed: Ej Francisco. Transcribed by: [email or web address], User Resident: Electronically Signed by: EJ FRANCISCO @ 08/20/2020 08:30 AM Normal [facility] Comment on above: Order Comment: Views (X-RAY, KNEE): AP, Lateral, Tunnel, [place] , Weight Bearing?: Y Vital Signs Date Time Vital Sign Value Performing Clinician Facility 08-11-2024 15:05-0500 Body height 165.1 cm Phillip Bingham DPM Work Phone: [facility] 08-11-2024 15:05-0500 Body mass index (BMI) [Ratio] 33.61 kg/m2 Phillip Bingham DPM Work Phone: [facility] 08-11-2024 15:05-0500 Body weight 91.63 kg Phillip Bingham DPM Work Phone: [facility] 08-11-2024 15:05-0500 Respiratory rate 18 /min Phillip Bingham DPM Work Phone: [facility] 06-07-2024 12:55-0500 Body height 165.1 cm Joanna Delia DO Work Phone: [facility] 06-07-2024 12:55-0500 Body mass index (BMI) [Ratio] 33.61 kg/m2 Joanna Delia DO Work Phone: [facility] 06-07-2024 12:55-0500 Body weight 91.63 kg Joanna Delia DO Work Phone: [facility] 06-07-2024 12:55-0500 Diastolic blood pressure 76 mm[Hg] Joanna Delia DO Work Phone: [facility] 06-07-2024 12:55-0500 Heart rate 73 /min Joanna Delia DO Work Phone: [facility] 06-07-2024 12:55-0500 SaO2% (BldA) [Mass fraction] 95 % Joanna Lin DO Work Phone: [facility] 06-07-2024 12:55-0500 Systolic blood pressure 142 mm[Hg] Joanna Lin DO Work Phone: [facility] 06-02-2024 14:27-0500 Body height 165.1 cm Phillip Bingham DPM Work Phone: [facility] 06-02-2024 14:27-0500 Body mass index (BMI) [Ratio] 37.44 kg/m2 Phillip Bingham DPM Work Phone: [facility] 06-02-2024 14:27-0500 Body weight 102.06 kg Phillip Bingham DPM Work Phone: [facility] 06-02-2024 14:27-0500 Diastolic blood pressure 79 mm[Hg] Phillip Bingham DPM Work Phone: [facility] 06-02-2024 14:27-0500 Heart rate 82 /min Phillip Bingham DPM Work Phone: [facility] 06-02-2024 14:27-0500 Systolic blood pressure 130 mm[Hg] Phillip Bingham DPM Work Phone: [facility] 04-21-2024 15:20-0400 Body mass index (BMI) [Ratio] 39.5 kg/m2 DO Juancarlos Ball Work Phone: [facility] 04-21-2024 13:34-0400 Body height 161.29 cm DO Juancarlos Ball Work Phone: [facility] 04-21-2024 13:34-0400 Body weight 101.6 kg DO Juancarlos Ball Work Phone: [facility] 04-20-2024 16:32-0400 Body height 165.1 cm DO Juancarlos Ball Work Phone: [facility] 04-20-2024 16:32-0400 Body mass index (BMI) [Ratio] 37.3 kg/m2 DO Juancarlos Ball Work Phone: [facility] 04-20-2024 16:32-0400 Body weight 101.66 kg DO Juancarlos Ball Work Phone: [facility] 03-24-2024 14:15-0400 Body height 165.1 cm Phillip Julio César DPM Work Phone: [facility] 03-24-2024 14:15-0400 Body mass index (BMI) [Ratio] 37.44 kg/m2 Phillip Bingham DPM Work Phone: [facility] 03-24-2024 14:15-0400 Body weight 102.06 kg Phillip Julio César DPM Work Phone: [facility] 03-24-2024 14:15-0400 Diastolic blood pressure 79 mm[Hg] Phillip Bingham DPM Work Phone: [facility] 03-24-2024 14:15-0400 Heart rate 81 /min Phillip Bingham DPM Work Phone: [facility] 03-24-2024 14:15-0400 Systolic blood pressure 127 mm[Hg] Phillip Julio César DPM Work Phone: [facility] 03-09-2024 13:34-0400 Body height 161.29 cm DO Juancarlos Ball Work Phone: [facility] 03-09-2024 13:34-0400 Body mass index (BMI) [Ratio] 39.8 kg/m2 DO Juancarlos Ball Work Phone: [facility] 03-09-2024 13:34-0400 Body weight 103.58 kg DO Juancarlos Ball Work Phone: [facility] 03-09-2024 13:34-0400 Diastolic blood pressure 72 mm[Hg] DO Juancarlos Ball Work Phone: [facility] 03-09-2024 13:34-0400 Heart rate 56 /min DO Juancarlos Ball Work Phone: [facility] 03-09-2024 13:34-0400 Respiratory rate 12 /min DO Juancarlos Ball Work Phone: [facility] 03-09-2024 13:34-0400 Systolic blood pressure 126 mm[Hg] DO Juancarlos Ball Work Phone: [facility] 02-24-2024 13:14-0400 Body height 161.29 cm DO Juancarlos Ball Work Phone: [facility] 02-24-2024 13:14-0400 Body mass index (BMI) [Ratio] 39.4 kg/m2 DO Juancarlos Ball Work Phone: [facility] 02-24-2024 13:14-0400 Body weight 102.73 kg DO Juancarlos Ball Work Phone: [facility] 02-24-2024 13:14-0400 Diastolic blood pressure 58 mm[Hg] DO Juancarlos Ball Work Phone: [facility] 02-24-2024 13:14-0400 Heart rate 53 /min DO Juancarlos Ball Work Phone: [facility] 02-24-2024 13:14-0400 Respiratory rate 20 /min DO Juancarlos Ball Work Phone: [facility] 02-24-2024 13:14-0400 SaO2% (BldA) [Mass fraction] 95 % DO Juancarlos Ball Work Phone: [facility] 02-24-2024 13:14-0400 Systolic blood pressure 120 mm[Hg] DO Juancarlos Ball Work Phone: [facility] 02-08-2024 11:49-0400 Body mass index (BMI) [Ratio] 39.5 kg/m2 DO Juancarlos Ball Work Phone: [facility] 02-08-2024 10:04-0400 Body height 161.29 cm DO Juancarlos Ball Work Phone: [facility] 02-08-2024 10:04-0400 Body weight 101.15 kg DO Juancarlos Ball Work Phone: [facility] 12-08-2023 13:37-0400 Body height 161.29 cm [facility] 12-08-2023 13:37-0400 Body mass index (BMI) [Ratio] 39.4 kg/m2 [facility] 12-08-2023 13:37-0400 Body weight 102.68 kg [facility] 12-08-2023 13:37-0400 Diastolic blood pressure 67 mm[Hg] [facility] 12-08-2023 13:37-0400 Heart rate 61 /min [facility] 12-08-2023 13:37-0400 Respiratory rate 20 /min [facility] 12-08-2023 13:37-0400 Systolic blood pressure 126 mm[Hg] [facility] 11-17-2023 13:12-0400 Body weight 102.71 kg [facility] 11-04-2023 10:57-0400 Body height 161.29 cm [facility] 11-04-2023 10:57-0400 Body mass index (BMI) [Ratio] 39.5 kg/m2 [facility] 11-04-2023 10:57-0400 Body weight 102.96 kg [facility] 11-04-2023 10:57-0400 Diastolic blood pressure 70 mm[Hg] [facility] 11-04-2023 10:57-0400 Heart rate 57 /min [facility] 11-04-2023 10:57-0400 Respiratory rate 18 /min [facility] 11-04-2023 10:57-0400 SaO2% (BldA) [Mass fraction] 97 % [facility] 11-04-2023 10:57-0400 Systolic blood pressure 109 mm[Hg] [facility] 06-05-2023 10:00-0500 Body height 165.1 cm Juancarlos Ball Other [facility] Other 06-05-2023 10:00-0500 Body mass index (BMI) [Ratio] 39.87 kg/m2 Juancarlos Ball Other [facility] Other 06-05-2023 10:00-0500 Body weight 108.68 kg Juancarlos Ball Other [facility] Other 06-05-2023 10:00-0500 Diastolic blood pressure 71 mm[Hg] Juancarlos Ball Other [facility] Other 06-05-2023 10:00-0500 Respiratory rate 20 /min Juancarlos Ball Other [facility] Other 06-05-2023 10:00-0500 Systolic blood pressure 118 mm[Hg] Juancarlos Ball Other [facility] Other 05-06-2023 13:45-0400 Body height 165.1 cm Juancarlos Ball Other [facility] Other 05-06-2023 13:45-0400 Body mass index (BMI) [Ratio] 39.97 kg/m2 Juancarlos Ball Other [facility] Other 05-06-2023 13:45-0400 Body weight 108.95 kg Juancarlos Ball Other [facility] Other 05-06-2023 13:45-0400 Diastolic blood pressure 87 mm[Hg] Juancarlos Ball Other [facility] Other 05-06-2023 13:45-0400 Respiratory rate 16 /min Juancarlos Ball Other [facility] Other 05-06-2023 13:45-0400 Systolic blood pressure 158 mm[Hg] Juancarlos Ball Other [facility] Other 03-10-2023 11:00-0400 Body height 165.1 cm Juancarlos Ball Other [facility] Other 03-10-2023 11:00-0400 Body mass index (BMI) [Ratio] 39.3 kg/m2 Juancarlos Ball Other [facility] Other 03-10-2023 11:00-0400 Body weight 107.14 kg Juancarlos Ball Other [facility] Other 03-10-2023 11:00-0400 Diastolic blood pressure 67 mm[Hg] Juancarlos Ball Other [facility] Other 03-10-2023 11:00-0400 Respiratory rate 16 /min Juancarlos Ball Other [facility] Other 03-10-2023 11:00-0400 Systolic blood pressure 120 mm[Hg] Juancarlos Ball Other [facility] Other 10-16-2022 13:12-0400 Body temperature 97.11 [degF] Jay Gonzalez MD Work Phone: [facility] 10-16-2022 13:12-0400 Diastolic blood pressure 66 mm[Hg] Jay Gonzalez MD Work Phone: [facility] 10-16-2022 13:12-0400 Heart rate 51 /min Jay Gonzalez MD Work Phone: [facility] 10-16-2022 13:12-0400 SaO2% (BldA) [Mass fraction] 96 % Jya Gonzalez MD Work Phone: [facility] 10-16-2022 13:12-0400 Systolic blood pressure 143 mm[Hg] Jay Gonzalez MD Work Phone: [facility] 09-08-2022 13:30-0500 Body height 165.1 cm Juancarlos Ball Other [facility] Other 09-08-2022 13:30-0500 Body mass index (BMI) [Ratio] 39.33 kg/m2 Juancarlos Ball Other [facility] Other 09-08-2022 13:30-0500 Body weight 107.23 kg Juancarlos Ball Other [facility] Other 09-08-2022 13:30-0500 Diastolic blood pressure 70 mm[Hg] Juancarlos Ball Other [facility] Other 09-08-2022 13:30-0500 Respiratory rate 20 /min Juancarlos Ball Other [facility] Other 09-08-2022 13:30-0500 Systolic blood pressure 112 mm[Hg] Juancarlos Ball Other [facility] Other 01-27-2022 13:20-0400 Body height 165.1 cm Jus Medina MD Work Phone: [facility] 01-27-2022 13:20-0400 Body temperature 96.91 [degF] Jus Medina MD Work Phone: [facility] 01-27-2022 13:20-0400 Body weight 104.33 kg Jus Medina MD Work Phone: [facility] 01-27-2022 13:20-0400 Diastolic blood pressure 56 mm[Hg] Jus Medina MD Work Phone: [facility] 01-27-2022 13:20-0400 Heart rate 50 /min Jus Medina MD Work Phone: [facility] 01-27-2022 13:20-0400 SaO2% (BldA) [Mass fraction] 98 % Jus Medina MD Work Phone: [facility] 01-27-2022 13:20-0400 Systolic blood pressure 131 mm[Hg] Jus Medina MD Work Phone: [facility] 10-10-2021 10:46-0400 Body height 165.1 cm Jay Gonzalez MD Work Phone: [facility] 10-10-2021 10:46-0400 Body weight 102.51 kg Jay Gonzalez MD Work Phone: [facility] 10-10-2021 10:46-0400 Diastolic blood pressure 65 mm[Hg] Jay Gonzalez MD Work Phone: [facility] 10-10-2021 10:46-0400 Heart rate 76 /min Jay Gonzalez MD Work Phone: [facility] 10-10-2021 10:46-0400 Systolic blood pressure 137 mm[Hg] Jay Gonzalez MD Work Phone: [facility] 10-10-2021 10:44-0400 Body height 165.1 cm Jus Medina MD Work Phone: [facility] 10-10-2021 10:44-0400 Body weight 102.51 kg Jus Medina MD Work Phone: [facility] 10-10-2021 10:44-0400 Diastolic blood pressure 65 mm[Hg] Jus Medina MD Work Phone: [facility] 10-10-2021 10:44-0400 Heart rate 76 /min Jus Medina MD Work Phone: [facility] 10-10-2021 10:44-0400 SaO2% (BldA) [Mass fraction] 98 % Jus Medina MD Work Phone: [facility] 10-10-2021 10:44-0400 Systolic blood pressure 137 mm[Hg] Jus Medina MD Work Phone: [facility] Encounters Encounter Date Encounter Type Care Provider Facility Start: 08-24-2024 End: 08-24-2024 ambulatory MATTHEW KEARNS Not Available Start: 08-24-2024 End: 08-24-2024 Bamboo flowsheet Matthew Kearns DO Work Phone: [facility] Start: 08-24-2024 End: 08-24-2024 Bamboo flowsheet Matthew Kearns DO Work Phone: [facility] Start: 08-11-2024 End: 08-11-2024 Patient encounter procedure Phillip Bingham DPM Work Phone: [facility] Comment on above: 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, unspecified whether fdc insulin use ([facility]) (Primary Dx); Pain due to onychomycosis of toenails of both feet; Xerosis cutis Start: 08-11-2024 End: 08-11-2024 ambulatory PHILLIP BINGHAM Not Available Start: 08-11-2024 End: 08-11-2024 Bamboo flowsheet Phillip Bingham DPM Work Phone: [facility] Start: 08-11-2024 End: 08-11-2024 Bamboo flowsheet Phillip Bingham DPM Work Phone: [facility] Start: 06-07-2024 End: 06-07-2024 Bamboo flowsheet [facility] Start: 06-07-2024 End: 06-07-2024 Bamboo flowsheet Joanna Delia DO Work Phone: [facility] [address] Start: 06-07-2024 End: 06-07-2024 Office outpatient visit 25 minutes Joanna Delia DO Work Phone: [facility] [address] Comment on above: BHUPENDRA (obstructive sle ep apnea) (Primary Dx); Hyposomnia; Snoring; Carpal tunnel syndrome, bilateral; Paresthesias; Ulnar neuropathy, unspecified laterality Start: 06-07-2024 End: 06-07-2024 ambulatory JOANNA DELIA Not Available Start: 06-02-2024 End: 06-02-2024 Patient encounter procedure Phillip Bingham DPM Work Phone: [facility] Comment on above: 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, unspecified whether fdc insulin use (CMS/HCC) (Primary Dx); Pain due to onychomycosis of toenails of both feet; Xerosis cutis Start: 06-02-2024 End: 06-02-2024 ambulatory PHILLIP BINGHAM Not Available Start: 06-02-2024 End: 06-02-2024 Bamboo flowsheet Phillip Bingham DPM Work Phone: [facility] Start: 06-02-2024 End: 06-02-2024 Bamboo flowsheet Phillip Bingham DPM Work Phone: [facility] Start: 05-04-2024 End: 05-04-2024 ambulatory [facility] Start: 04-21-2024 End: 04-21-2024 Patient encounter procedure DO Juancarlos Cuenca Work Phone: [facility] Work Phone: Start: 04-21-2024 End: 04-21-2024 Patient encounter procedure DO Juancarlos Ball Work Phone: [facility] Work Phone: Start: 04-21-2024 End: 04-21-2024 Patient encounter procedure DO Juancarlos Ball Work Phone: [facility] Start: 04-21-2024 End: 04-21-2024 ambulatory Ej Anthony II Facility:[facility] Start: 04-11-2024 End: 04-11-2024 ambulatory Hanh Wade MD Facility: [facility] Start: 03-24-2024 End: 03-24-2024 Patient encounter procedure Phillip Bingham DPM Work Phone: [facility] Comment on above: Xerosis cutis (Prima ry Dx); Diabetes mellitus due to underlying condition with diabetic polyneuropathy, 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 (CMS/HCC); Onychomycosis; Toe pain, bilateral Start: 03-24-2024 End: 03-24-2024 ambulatory PHILLIP BINGHAM Not Available Start: 03-24-2024 End: 03-24-2024 Bamboo flowsheet Phillip Bingham DPM Work Phone: [facility] Start: 03-24-2024 End: 03-24-2024 Bamboo flowsheet Phillip Bingham DPM Work Phone: [facility] Start: 03-09-2024 End: 03-09-2024 Patient encounter procedure DO [employer]ancarlos [employer] Work Phone: [facility] Work Phone: Start: 02-24-2024 End: 02-24-2024 Patient encounter procedure DO Juancarlos [employer] Work Phone: [facility] Work Phone: Start: 02-08-2024 End: 02-08-2024 Patient encounter procedure DO [employer] Work Phone: [facility] Work Phone: Start: 12-15-2023 End: 12-15-2023 ambulatory JOANNA LIN Not Available Start: 12-10-2023 End: 12-10-2023 ambulatory PHILLIP BINGHAM Not Available Start: 12-08-2023 End: 12-08-2023 Patient encounter procedure [facility] Work Phone: Start: 11-17-2023 End: 11-17-2023 Patient encounter procedure [facility] Work Phone: Start: 11-04-2023 End: 11-04-2023 Patient encounter procedure [facility] Work Phone: Start: 10-27-2023 Telephone encounter Jay patel MD Work Phone: General Surgery Start: 10-15-2023 End: 10-15-2023 ambulatory JAY GONZALEZ Facility:[facility] Start: 10-09-2023 Non-patient / Non-visit [facility]ly [facility] [employer] Work Phone: Start: 10-01-2023 End: 10-01-2023 ambulatory PHILLIP BINGHAM Not Available Start: 08-10-2023 (RD) 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 Nirmala James [facility] Start: 08-10-2023 End: 08-10-2023 ambulatory Juancarlos Cuenca [facility] [employer] Other Start: 08-03-2023 End: 08-03-2023 ambulatory Hanh Wade MD [facility] Start: 07-27-2023 End: 07-27-2023 ambulatory Hanh Wade MD Facility:[facility] Start: 06-17-2023 End: 06-17-2023 ambulatory Juancarlos Cuenca Other [employer] [facility] Other Start: 06-17-2023 Telephone encounter Juancarlos Ball [facility] Start: 06-16-2023 End: 06-16-2023 ambulatory Juancarlos Cuenca Other [employer] [facility] Other Start: 06-16-2023 Telephone encounter Juancarlos Ball [facility] Start: 06-09-2023 End: 06-09-2023 ambulatory Juancarlos Cuenca Other [employer] [facility] Other Start: 06-09-2023 Telephone encounter Juancarlos Ball [facility] Start: 06-08-2023 End: 06-08-2023 ambulatory Juancarlos Ball Other [facility] Other Start: 06-08-2023 Telephone encounter Juancarlos Ball [facility] Start: 06-07-2023 End: 06-07-2023 ambulatory Juancarlos Ball Other [employer] [facility] Other Start: 06-07-2023 Telephone encounter Juancarlos Ball [facility] Start: 06-05-2023 End: 06-05-2023 ambulatory Juancarlos Ball Other [facility] Other Start: 06-05-2023 Office outpatient vi sit 25 minutes Juancarlos Ball [facility] Start: 05-27-2023 End: 05-27-2023 ambulatory Juancarlos Ball Other [facility] Other Start: 05-27-2023 Telephone encounter Juancarlos Ball [facility] Start: 05-17-2023 End: 05-17-2023 ambulatory Juancarlos Ball Other [employer] [facility] Other Start: 05-17-2023 Telephone encounter Juancarlos Ball [facility] Start: 05-15-2023 End: 05-15-2023 ambulatory Juancarlos Ball Other [employer] Other Start: 05-15-2023 Telephone encounter Juancarlos Ball [facility] Start: 05-07-2023 End: 05-07-2023 ambulatory Juancarlos Ball Other [employer] [facility] Other Start: 05-07-2023 Telephone encounter Juancarlos Ball [facility] Start: 05-06-2023 End: 05-06-2023 ambulatory Juancarlos Ball Other [employer] [facility] Other Start: 05-06-2023 Office outpatient vi sit 25 minutes Juancarlos Ball [facility] Start: 05-06-2023 Telephone encounter Juancarlos Ball [facility] Start: 04-04-2023 End: 04-04-2023 ambulatory Juancarlos Ball Other [employer] [facility] Other Start: 04-04-2023 Telephone encounter Juancarlos Ball [facility] Start: 03-10-2023 End: 03-10-2023 ambulatory Juancarlos Ball Other [facility] Other Start: 03-10-2023 Office outpatient vi sit 25 minutes Juancarlos Ball [facility] Start: 12-24-2022 End: 12-24-2022 ambulatory Juancarlos Cuenca Other [employer] [facility] [employer] Other Start: 12-24-2022 Telephone encounter Juancarlos BELL [facility] Start: 12-17-2022 End: 12-18-[address] NYA BIRD . Facility:[facility] Start: 12-16-2022 End: 12-16-2022 ambulatory NARENDRANATH LAKSHMIPATHY . 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 Start: 09-16-2022 End: 09-17-2022 ambulatory Nya BIRD [facility] [employer] Other Start: 09-16-2022 End: 09-27-2022 Pre-admission assessment Nya BIRD [facility] Start: 09-12-2022 Telephone encounter Juancarlos Cuenca FP [facility] Start: 09-12-2022 End: 09-13-[address] JUANCARLOS CUENCA [facility] [employer] Other Start: 09-08-2022 End: 09-08-2022 ambulatory Juancarlos Cuenca Other [facility] [employer] Other Start: 09-08-2022 Patient encounter procedure Juancarlos Cuenca [facility] Start: 07-31-2022 End: 08-01-[address] EVAN LAMAS . Facility:[facility] Start: 07-03-2022 Encounter for preprocedural laboratory examination DR EVAN LAMAS . [facility] Start: 07-01-2022 End: 07-01-[address] [...] Telephone encounter Shilpa Storm MD Work Phone: [facility] Comment on above: Research Start: 10-10-2021 End: 10-10-2021 Patient encounter procedure Jay Gonzalez MD Work Phone: General Surgery Comment on above: Ventral incisional h ernia (Primary Dx) Polyposis of colon ( Primary Dx) Start: 12-26-2020 End: 12-29-2020 ambulatory JUANCARLOS CUENCA Facility:[facility] Start: 10-19-2020 End: 10-20-2020 ambulatory JUANCARLOS CUENCA Facility:[facility] Procedures Date Procedure Procedure Detail Performing Clinician Start: 08-24-2024 Oph bmtry prtl coher intrfrmtry io lens pwr shoshana Matthew Kearns DO Work Phone: Start: 08-24-2024 End: 08-24-2024 [facility] xm&eval compre new pt 1/> vst Age-related nuclear cataract of right eye Matthew Kearns DO Work Phone: Comment on above: Age-related nuclear cataract of right eye (Primary Dx); Left posterior capsular opacification Start: 04-21-2024 Plain radiography of pelvis DO [employer] Work Phone: Start: 04-21-2024 X-ray of left knee, four views DO [employer]ancarlos [employer] Work Phone: Start: 10-04-2021 Partial resection of [...] Treatment Date Care Activity Detail Author Start: 10-25-2024 End: 10-25-2024 Patient encounter procedure [facility] Start: 10-20-2024 End: 10-20-2024 Patient encounter procedure 10/20/2024 3:10 PM EDT Office Visit [facility] [address] [facility] [address] [place] [address] Phillip Bingham, TERRY [address] [facility] [address] [place] [address] [facility] Start: 10-14-2024 BP Controlled (<130/80) BP Controlle d (<130/80) [facility] Start: 08-24-2024 End: 08-24-2024 Patient encounter procedure [facility] Comment on above: Arrived Start: 08-11-2024 End: 08-11-2024 Patient encounter procedure [facility] Comment on above: 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, unspecified whether fdc insulin use (CMS/HCC) (Primary Dx); Pain due to onychomycosis of toenails of both feet; Xerosis cutis Start: 06-07-2024 End: 06-07-2024 Patient encounter procedure [facility] Comment on above: Arrived Start: 06-02-2024 End: 06-02-2024 Patient encounter procedure 06/02/2024 2:30 PM EST Office Visit [facility] [address] [place] [address] Phillip Bingham DPM [address] [address] [facility] Start: 03-24-2024 End: 03-24-2024 Patient encounter procedure 03/24/2024 2:30 PM EDT Office Visit [facility] [address] [facility] [address] [place] [address] Phillip Bingham DPM [address] [address] Xerosis cutis (Primary Dx); Diabetes mellitus due to underlying condition with diabetic polyneuropathy, unspecified whether fdc insulin use ([facility]/HCC); Onychomycosis; Toe pain, bilateral [facility] Comment on above: Xerosis cutis (Prima ry Dx); Diabetes mellitus due to underlying condition with diabetic polyneuropathy, unspecified whether fdc insulin use (CMS/HCC); Onychomycosis; Toe pain, bilateral Start: 03-20-2024 Influenza vaccination Influenza Vacc ine (#1) [facility] Start: 07-20-2023 Advance Directive Discussion Advance Directive Discussion [facility] Start: 07-20-2023 Behavioral Health Screening Behavioral Health Screening [facility] Start: 10-10-2022 End: 11-09-2022 Ct abdomen & pelvis w/o contrast material CT ABD/PEL WO IVCON Radiology Routine Ventral incisional hernia Expected: 10/10/2022, Expires: 11/09/2022 [facility] Work Phone: Comment on above: Expected: 10/10/2022 , Expires: 11/09/2022 Start: 07-20-2022 ADVANCE DIRECTIVE DISCUSSION ADVANCE DIRECTIVE DISCUSSION [facility] Start: 07-20-2022 DEPRESSION ASSESSMENT DEPRESSION ASS ESSMENT [facility] Start: 03-20-2022 Influenza vaccination INFLUENZA (#1) [facility] Start: 03-13-2022 Hemoglobin A1c measurement HbA1C [facility] Start: 03-13-2022 Hemoglobin A1c/Hemoglobin.total in Blood HBA1C [facility] Start: 01-04-2022 COVID-19 VACCINE (5 - Booster for Pfizer series) COVID-19 VACCINE (5 - Booster for Pfizer series) [facility] Start: 07-20-2021 ADVANCE DIRECTIVE DISCUSSION ADVANCE DIRECTIVE DISCUSSION [facility] Start: 04-19-2015 Pneumococcal Vaccine : 65+ (2 of 2 - PCV) Pneumococcal Vaccine: 65+ (2 of 2 - PCV) [facility] Start: 04-19-2015 Pneumococcal Vaccine : 65+ Years (2 of 2 - PCV) Pneumococcal Vaccine: 65+ Years (2 of 2 - PCV) [facility] Start: 2009 PNEUMOVAX AGE 65 AND OVER WITH 5YR LOOKBACK (#1) PNEUMOVAX AGE 65 AND OVER WITH 5YR LOOKBACK (#1) [facility] Start: 1994 SHINGRIX VACCINE (1 of 2) SHINGRIX VACCINE (1 of 2) [facility] Start: 12-31-1963 Urine microalbumin profile [facility] Start: 1962 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 MACY DISEASE VISIT ANNUAL PCP TEAM CHRONIC DISEASE VISIT [facility] Start: 1962 BP CONTROLLED (<130/80) BP CONTROLLE D (<130/80) [facility] Start: 1962 Hepatitis B surface antibody level LDL CHOLESTEROL [facility] Start: 1962 HEPATITIS C SCREENING HEPATITIS C [facility] Start: 1962 Hepatitis C screening Hepatitis C [facility] Start: 1956 Adult depression screening assessment DEPRESSION SCREENING [facility] Start: 1954 3 comp foot exam completed DIABETIC FOOT EXAM [facility] Start: 1954 Diabetic foot examination Diabetic Foot Exam [facility] Start: 1954 Glaucoma screening Dilated Retinal E xam [facility] Start: 1954 Hepatitis B screening URINE ALBUMIN:CREATININE RATIO [facility] Start: 1954 Hepatitis C antibody , confirmatory test DILATED RETINAL EXAM [facility] Start: 1950 PNEUMOCOCCAL: 65+ (1 - PCV) PNEUMOCOCCAL: 65+ (1 - PCV) [facility] End: 10-11-2022 Ct abdomen & pelvis w/o contrast material [facility] Work Phone: Comment on above: 1 Occurrences starti ng 10/11/2022 until 10/11/2022 End: 11-15-2023 Ct abdomen & pelvis w/o contrast material CT ABD/PEL WO IVCON Radiology Routine Ventral incisional hernia 1 Occurrences starting 10/16/2022 until 11/15/2023 [facility] Work Phone: Comment on above: 1 Occurrences starti ng 10/16/2022 until 11/15/2023 [facility] Immunizations Immunization Date Immunization Notes Care Provider Alexa dietz 04-14-2023 influenza virus vaccine, unspecified formulation Phillip Bingham DPM Work Phone: [facility] 05-20-2022 influenza virus vaccine, unspecified formulation Nya BIRD [facility] 05-16-2022 influenza, high dose seasonal, preservative-free Juancarlos Cuenca Other [facility] Other 05-16-2022 influenza virus vaccine, split virus (incl. purified surface antigen) Juancarlos Cuenca Other [facility] Other 05-16-2022 influenza virus vaccine, unspecified formulation [facility] 04-15-2022 SARS-CoV-2 (COVID-19 ) [id number] Nya NILL [facility] 11-09-2021 COVID-19 Vaccine Pfi zer - Documentation Purposes Only Juancarlos Cuenca Other [facility] 11-09-2021 SARS-CoV-2 mRNA (xarfxegvupo-yppc-oaoof se) vaccine Nya NILL [facility] 04-19-2021 SARS-CoV-2 (COVID-19 ) mRNA BNT-162b2 vax Nya NILL [facility] Comment on above: Result Comment: 2022: [id number] 09-05-2020 SARS-CoV-2 (COVID-19 ) mRNA BNT-162b2 vax Nya NILL [facility] Comment on above: Result Comment: 2022: [id number] 08-15-2020 COVID-19 Vaccine Moderna - Documentation Purposes Only Juancarlos Cuenca Other [facility] 08-15-2020 SARS-CoV-2 (COVID-19 ) mRNA BNT-162b2 vax Nya NILL [facility] Comment on above: Result Comment: 2022: [id number] 03-28-2020 influenza virus vaccine, split virus (incl. purified surface antigen) Juancarlos Cuenca Other [facility] [employer] Other 03-28-2020 influenza virus vaccine, unspecified formulation [facility] 05-17-2019 influenza virus vaccine, split virus (incl. purified surface antigen) Juancarlos Cuenca Other [facility] Other 05-17-2019 influenza virus vaccine, unspecified formulation [facility] 05-13-2018 influenza virus vaccine, split virus (incl. purified surface antigen) Juancarlos Bang Other [facility] Other 05-13-2018 influenza virus vaccine, unspecified formulation [facility] 04-25-2015 influenza virus vaccine, split virus (incl. purified surface antigen) Juancarlos Cuenca Other [facility] Other 04-25-2015 influenza virus vaccine, unspecified formulation [facility] 04-25-2015 pneumococcal conjuga te vaccine, 13 valent Juancarlos Cuenca Other [facility] 04-19-2014 pneumococcal polysaccharide vaccine, 23 valent Juancarlos Cuenca Other [facility] 04-20-2013 tetanus and diphther ia toxoids, adsorbed, preservative free, for adult use (5 Lf of tetanus toxoid and 2 Lf of diphtheria toxoid) Juancarlos uCenca Other [facility] 04-21-2012 pneumococcal polysaccharide vaccine, 23 valent Juancarlos Cuenca Other [facility] Payers Date Payer Category Payer Self-pay [id number] 2023 Unknown [id number] 2020 Private Health Insurance [facility] AARP SUPPLEMENT [id number] 2020-Present [phone] [address] [place] [address] Indemnity [id number] 2020 Private Health Insurance [id number] .[id number] 2009 Medicare MEDICARE MEDICAR E A AND B [id number] 2009-Present [phone] [place] [address] Medicare [id number] .[id number] 2009 Medicare [id number] 1.13.159.2 .7.3.082783.315 1959 Medicare [id number] 1959 Unknown [id number] 1944 Unknown [id number] 2.16.840.1.301384.3.579.2 .647 1944 Unknown [id number] 2.16.840.1.400822.3.579.2 .647 1944 Unknown [id number] 2.16.840.1.432436.3.579.2 .593 1944 Unknown [id number] 2.16.840.1.978376.3.579.2 .593 1944 Unknown [id number] 2.16.840.1.150359.3.579.2 .593 1944 Unknown [id number] 2.16.840.1.017407.3.579.2 .593 1944 Unknown [id number] 2.16.840.1.598865.3.579.2 .593 1944 Unknown [id number] 2.16.840.1.304230.3.579.2 .593 1944 Unknown [id number] 2.16.840.1.198768.3.579.2 .593 1944 Unknown [id number] 2.16.840.1.143771.3.579.2 .593 1944 Unknown [id number] 2.16.840.1.742976.3.579.2 .593 1944 Unknown [id number] 2.16.840.1.473996.3.579.2 .593 1944 Unknown [id number] 2.16.840.1.040142.3.579.2 .593 1944 Unknown [id number] 2.16.840.1.192318.3.579.2 .593 1944 Unknown [id number] 2.16.840.1.250056.3.579.2 .593 1944 Unknown [id number] 2.16.840.1.981305.3.579.2 .593 1944 Unknown [id number] 2.16.840.1.408452.3.579.2 .593 1944 Unknown [id number] 2.16.840.1.903207.3.579.2 .593 1944 Unknown [id number] 2.16.840.1.009842.3.579.2 .593 1944 Unknown [id number] 2.16.840.1.986888.3.579.2 .593 1944 Unknown [id number] 2.16.840.1.395968.3.579.2 .593 1944 Unknown [id number] 2.16.840.1.077800.3.579.2 .727 1944 Unknown [id number] 2.16.840.1.515247.3.579.2 .727 1944 Unknown [id number] 2.16.840.1.954113.3.579.2 .727 1944 Unknown [id number] 2.16.840.1.148233.3.579.2 .196 1944 Unknown [id number] 2.16.840.1.677621.3.579.2 .196 1944 Unknown [id number] 2.16.840.1.989651.3.579.2 .196 1944 Unknown [id number] 2.16.840.1.762940.3.579.2 .1259 1944 Unknown [id number] 2.16.840.1.808784.3.579.2 .1259 1944 Unknown [id number] 2.16.840.1.879088.3.579.2 .1258 1944 Unknown [id number] 2.16.840.1.214257.3.579.2 .1258 1944 Unknown [id number] 2.16.840.1.617600.3.579.2 .1258 1944 Unknown [id number] 2.16.840.1.492756.3.579.2 .1258 1944 Unknown [id number] 2.16.840.1.604881.3.579.2 .1258 1944 Unknown [id number] 2.16.840.1.961941.3.579.2 .1259 Unknown [id number] Unknown [id number] 2.16.840.1.137639.19 Unknown [id number] Conversion Insurance [id number] Unknown [id number] 2.16.840.1.486990.3.579.2 .531 Unknown [id number] 2.16.840.1.213061.3.579.2 .531 Social History Date Type Detail Facility Start: 05-21-2021 End: 10-01-2023 Tobacco smoking status NHIS Ex-smoker [facility] End: 07-20-1994 History of tobacco use Current smoker [facility] End: 07-20-1994 History of tobacco use Cigar Smoker [facility] Start: 05-21-2021 End: 10-01-2023 Tobacco use and exposure Smokeless tobacco non-user [facility] Start: 10-10-2021 End: 10-15-2023 Alcohol intake Ex-drinker (finding) [facility] Start: 05-21-2021 End: 10-16-2022 Tobacco Comment Quit 15+ years [facility] Start: 1945 Sex Assigned At Not on file C [facility] Start: 08-25-2021 End: 09-24-2021 Exposure to SARS-CoV-2 (event) Not sure [facility] Start: 09-16-2022 Tobacco smoking status Never s moked tobacco (finding) [facility] Tobacco smoking status Former sm okeless tobacco user, quit more than 30 days ago [facility] Start: 10-15-2023 End: 08-11-2024 Sex Assigned At Male [facility] Start: 10-15-2023 End: 08-11-2024 History of Social function [facility] Start: 1945 Sex Assigned At Male F [facility] History of tobacco use Cigarette Smoker [facility] History of tobacco use Passive smoker [facility] Start: 06-02-2024 End: 08-24-2024 Alcoholic beverage intake Lifetime non-drinker (finding) [facility] Medical Equipment Procedure Code Equipment Code Equipment Origin al Text Equipment Identifier Dates Mesh Parietene Polypropylene Macroporous [id number] Surgical Monofilament - [id number] Start: 09-24-2021 Blood Sugar Diag nostic (Accu-Chek Guide Test Strips) strip Start: 09-14-2023 Blood Sugar Diag nostic (Accu-Chek Guide Test Strips) strip Start: 09-07-2023 End: 09-14-2023 Blood Sugar Diag nostic (Accu-Chek Guide Test Strips) strip Start: 09-14-2023 Blood Sugar Diag nostic (Accu-Chek Guide Test Strips) strip Start: 09-07-2023 End: 09-14-2023 Clinical Notes 12-29-2020 to 08-24-2024 Matthew Kearns, DO - 08/24/2024 3:00 PM Marjan Bingham, DPM - 08/11/2024 3:10 PM Kate Lin, DO - 06/07/2024 12:30 PM Marjan Bingham, DPM - 06/02/2024 2:30 PM EST Note Date & Type Note Facility 08-24-2024 History of Present illness Narrative Images from the original note were not included. Subjective Patient ID: Lizzy Yee is a 78 y.o. male. Chief Complaint Cataract; Blurred Vision HPI Cataract In right eye. Associated symptoms include blurred vision, glare and haloes. Severity is moderate. Onset was gradual. Duration of years. Frequency is constant. Context: distance vision, mid-range vision and near vision. Treatments tried include glasses. Response to treatment was no improvement. Blurred Vision In left eye. Onset was gradual. Vision is difficult to focus. Severity is moderate. Occurring constantly. It is worse throughout the day. Context: mid-range vision, computer work, night driving and dim lighting. Since onset it is gradually worsening. Associated symptoms include glare and haloes. Treatments tried include artificial tears and glasses. Response to treatment was mild improvement. Comments Pt presents for Comprehensive Eye exam, states he is having cloudy/hazy vision in both eyes (OU) . Pt states he had cataract extraction (CE) in left eye (OS) a few years ago. Pt saw Dr. Larsen at [facility] and they told he wendy needs a YAG in left eye (OS) as well as cataract extraction (CE) of right eye (OD) . Referred by Dr. Shine *Has taken Flomax in the past* No Latex allergies No Pacemakers or Defib Last edited by Matthew Kearns DO on 08/24/2024 3:51 PM. Current Outpatient Medications (Ophthalmic Agents) Medication Sig Dispense Refill Hncxsztfzoe-Jwydwrtr-Qwsdkxsvx 1-0.5-0.075 % solution Administer 1 drop into affected eye(s) in the morning and 1 drop at noon and 1 drop in the evening and 1 drop before bedtime. 10 mL 1 No current facility-administered medications for this visit. (Ophthalmic Agents) Current Outpatient Medications (Other) Medication Sig Dispense Refill amLODIPine (Norvasc) 5 MG tablet TAKE 1 TABLET BY MOUTH EVERY DAY FOR 30 DAYS aspirin 81 MG EC tablet Take 1 tablet by mouth Daily atorvastatin (Lipitor) 80 MG tablet Take 1 tablet by mouth at bedtime baclofen (Lioresal) 10 MG tablet carvedilol (Coreg) 6.25 MG tablet Take 1 tablet by mouth in the morning and 1 tablet before bedtime. cholecalciferol (Vitamin D-3) 50 MCG (1999 [place]) capsule Take 1 capsule every day by oral route. clopidogrel (Plavix) 75 MG tablet Take 1 tablet by mouth Daily glipiZIDE (Glucotrol) 5 MG tablet TAKE 1 TABLET BY MOUTH EVERY DAY 30 MINUTES PRIOR TO BREAKFAST hydroCHLOROthiazide (HYDRODiuril) 25 MG tablet Take 1 tablet by mouth Daily lisinopril 30 MG tablet Take 30 mg by mouth Daily metFORMIN (Glucophage) 1000 MG tablet TAKE 1 TABLET BY MOUTH TWICE A DAY BEFORE BREAKFAST AND EVENING MEAL oxyCODONE (Roxicodone) 5 MG immediate release tablet Take 1 tablet by mouth every 6 (six) hours if needed pantoprazole (ProtoNix) 40 MG EC tablet TAKE 1 TABLET BY MOUTH DAILY ON EMPTY STOMACH FOLLOWED IN 30 MINUTES BY BREAKFAST triamcinolone (Kenalog) 0.1 % ointment Apply topically 2 (two) times a day No current facility-administered medications for this visit. (Other) Past Medical History: Diagnosis Date Anxiety Arthritis BPH (benign prostatic hyperplasia) BPPV (benign paroxysmal positional vertigo) CAD (coronary artery disease) ([facility]) Colon polyp Depression ([facility]) DM polyneuropathy ([facility]) NARINDER (generalized anxiety disorder) ([facility]) HLD (hyperlipidemia) ([facility]) Hoarseness of voice HTN (hypertension) ([facility]) Lumbar spondylosis Mitral regurgitation OA (osteoarthritis) BHUPENDRA (obstructive sleep apnea) Stomach upset No Known Allergies Review of Systems Constitutional: Negative. HENT: Negative. Eyes: Negative. Respiratory: Negative. Cardiovascular: Negative. Gastrointestinal: Negative. Genitourinary: Negative. Musculoskeletal: Negative. Skin: Negative. Neurological: Negative. Psychiatric/Behavioral: Negative. Hematological: Negative. Endocrine: Negative. Allergic/Immunologic: Negative. Objective Base Eye Exam Visual Acuity (Snellen - Linear) Right Left Dist cc 20/50 20/40 Correction: Glasses Tonometry (Applanation, 3:51 PM) Right Left Pressure 21 18 Pupils Pupils Right PERRL Left PERRL Visual Storey Left Right Full Full Extraocular Movement Right Left Full, Ortho Full, Ortho Neuro/Psych Oriented x3: Yes Dilation Both eyes: 1.0% Mydriacyl @ 3:30 PM Additional Tests Keratometry K1 [place] K2 [place] Right 44.75 99 45.25 9 Left 44.50 94 45.00 4 Glare Testing High Right 20/200 Left 20/200 Slit Lamp and Fundus Exam External Exam Right Left External Rosacea, Brow ptosis Rosacea, Brow ptosis Slit Lamp Exam Right Left Lids/Lashes Blepharitis, Dermatochalasis - upper lid Blepharitis, Dermatochalasis - upper lid Conjunctiva/Sclera White and quiet White and quiet Cornea Decreased tear film Decreased tear film Anterior Chamber Deep and quiet Deep and quiet Iris Round and reactive Round and reactive Lens 3+ Nuclear sclerosis, 2+ Posterior subcapsular cataract Posterior chamber intraocular lens, 3+ Posterior capsular opacification Anterior Vitreous Normal Normal Fundus Exam Right Left Disc Normal Normal Macula Normal Normal Vessels Normal Normal Periphery Normal Normal Refraction Wearing Rx Sphere Cylinder [place] Add Right +0.25 -1.50 105 +2.50 Left +1.00 -1.50 113 +2.50 Age: 1yr Type: progress Manifest Refraction Sphere Cylinder [place] Right +0.50 -1.00 095 Left +1.25 -1.00 090 Final Rx Sphere Cylinder [place] Dist [place] Right +0.50 -1.00 095 20/40 Left +1.25 -1.00 090 20/40 Type: progress Expiration Date: 08/24/2025 Assessment/Plan Age-related nuclear cataract of right eye - Visually Significant Cataract, OU: I discussed the risks, benefits, alternatives, and expectations of cataract surgery. A complete ophthalmic exam was performed and it was determined that the cataracts were a primary source of vision decline, affecting activities of daily living, necessitating removal. Limited vision post-surgery may occur with pre-existing conditions affecting other areas of the eye or the brain was explained and the patient displayed an understanding. The overall objective is to improve ADLs, not eliminate glasses or restore vision to 20/20. Tests were reviewed - the different lens options were explained including the [id number] fees for any upgrades. Intraocular lens (IOL) selection may be altered either prior to or during the procedure based on the doctor's discretion including reverting to a traditional intraocular lens (IOL). They understood that there will exist the potential of glasses prescription need post surgery for near, distance or possibly both. The patient stated a full understanding and a desire to proceed with the procedure. The patient received cataract measurements and had any additional questions answered. Intraoperative Floppy Eyelid Syndrome (IFIS): The patient currently or has in the past taken a medication, such as Flomax, that increases the likelihood of encountering IFIS during there case. This condition was discussed with them and precautions will be taken, such as using a Malyugin Ring, during the surgery to stabilize this. However, the risk remains that a complication may occur due to this condition. - A complete exam was performed including a physical exam: General: AAOx3 and NAD, Lungs: Clear, Heart: RRR, Abdomen: S/NT/ND, Extremities: no pitting edema. Left posterior capsular opacification - PCO OS: (Posterior Capsule Opacification) Can be observed without intervention if PCO is not visually significant. Nd:YAG laser capsulotomy may be considered if impairment of vision rises to a level that dose not meet the patient's functional needs or interferes with activities of daily living. Risks, benefits and alternatives to the procedure will be reviewed. If the patient has undergone Nd:YAG laser capsulotomy, they are to notify their research worker kitchen promptly if they have a significant change in symptoms, such as flashes of light (photopsia), an increase in floaters, loss of visual field or decrease in visual acuity. documented in this encounter [facility] 08-11-2024 History of Present illness Narrative Patient: Lizzy Yee : 1945 PCP: Juancarlos Cuenca MD SUBJECTIVE This is a 78 y.o. male that presents today with a CC of elongated, thick nails. Pt states nails have been elongated and thick for many years and cause pain with ambulation in shoegear. Pt has tried previous treatment with minimal relief. Pt presents today for nail care and treatment. Patient is DM2 Patient has history of xerosis to feet Allergies: No Known Allergies Past Medical History: Past Medical History: Diagnosis Date Anxiety Arthritis BPH (benign prostatic hyperplasia) BPPV (benign paroxysmal positional vertigo) CAD (coronary artery disease) (CMS/HCC) Colon polyp Depression (CMS/HCC) DM polyneuropathy (CMS/HCC) NARINDER (generalized anxiety disorder) (CMS/HCC) HLD (hyperlipidemia) (CMS/HCC) Hoarseness of voice HTN (hypertension) (CMS/HCC) Lumbar spondylosis Mitral regurgitation OA (osteoarthritis) BHUPENDRA (obstructive sleep apnea) Stomach upset Medications: Current Outpatient Medications: amLODIPine (Norvasc) 5 MG tablet, TAKE 1 TABLET BY MOUTH EVERY DAY FOR 30 DAYS, Disp: , Rfl: aspirin 81 MG EC tablet, Take 1 tablet by mouth Daily, Disp: , Rfl: atorvastatin (Lipitor) 80 MG tablet, Take 1 tablet by mouth at bedtime, Disp: , Rfl: baclofen (Lioresal) 10 MG tablet, , Disp: , Rfl: carvedilol (Coreg) 6.25 MG tablet, Take 1 tablet by mouth in the morning and 1 tablet before bedtime., Disp: , Rfl: cholecalciferol (Vitamin D-3) 50 MCG (1999 [place]) capsule, Take 1 capsule every day by oral route., Disp: , Rfl: clopidogrel (Plavix) 75 MG tablet, Take 1 tablet by mouth Daily, Disp: , Rfl: glipiZIDE (Glucotrol) 5 MG tablet, TAKE 1 TABLET BY MOUTH EVERY DAY 30 MINUTES PRIOR TO BREAKFAST, Disp: , Rfl: hydroCHLOROthiazide (HYDRODiuril) 25 MG tablet, Take 1 tablet by mouth Daily, Disp: , Rfl: lisinopril 30 MG tablet, Take 30 mg by mouth Daily, Disp: , Rfl: metFORMIN (Glucophage) 1000 MG tablet, TAKE 1 TABLET BY MOUTH TWICE A DAY BEFORE BREAKFAST AND EVENING MEAL, Disp: , Rfl: oxyCODONE (Roxicodone) 5 MG immediate release tablet, Take 1 tablet by mouth every 6 (six) hours if needed, Disp: , Rfl: pantoprazole (ProtoNix) 40 MG EC tablet, TAKE 1 TABLET BY MOUTH DAILY ON EMPTY STOMACH FOLLOWED IN 30 MINUTES BY BREAKFAST, Disp: , Rfl: triamcinolone (Kenalog) 0.1 % ointment, Apply topically 2 (two) times a day, Disp: , Rfl: Social History: Social History Socioeconomic History Marital status: Spouse name: Not on file Number of children: Not on file Years of education: Not on file Highest education level: Not on file Occupational History Not on file Tobacco Use Smoking status: Former Types: Cigarettes Passive exposure: Past Smokeless tobacco: Never Vaping Use Vaping status: Never Used Substance and Sexual Activity Alcohol use: Never Drug use: Never Sexual activity: Defer Other Topics Concern Not on file Social History Narrative Not on file Social Drivers of Health Financial Resource Strain: Not on file Food Insecurity: No Food Insecurity (07/02/2023) Received from [facility], [facility] [place] Hunger Screening Within the past 12 months we worried whether our food would run out before we got money to buy more.: Never True Within the past 12 months the food we bought just didn't last and we didn't have money to get more.: Never True Transportation Needs: Not on file Physical Activity: Not on file Stress: Not on file Social Connections: Not on file Intimate Partner Violence: Unknown (09/10/2023) Received from [facility], [facility] [place] Safety & Environment Fear of Current or Ex-Partner: Not on file Emotionally Abused: Not on file Physically Abused: Not on file Sexually Abused: Not on file Physically or Sexually Abused: Not on file Housing Stability: Not on file ROS: General: denies fever, chills, fatigue, malaise OBJECTIVE LE EXAM: DERM: Elongated thick yellow crumbly nails digits 1 through 10. Negative hair growth with thin shiny atrophic skin bilaterally. Resolved and negative Dry and scaly skin to bilateral feet and ankle region VASC: Positive DP and negative PT pedal pulses NEURO: 5.07 [place] monofilament test diminished to digits and forefoot bilaterally 125Hz tuning fork diminished to 1st MPJ bilaterally ORTHO: Positive pain on palpation to nails 1 through 10 ASSESSMENT 1. 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 Pain due to onychomycosis of toenails of both feet 3. Xerosis cutis PLAN Discussed proper foot care with patient today. [place]br[place] nails in length and thickness digits 1 through 10 Patient educated today on proper diabetic foot care including monitoring feet daily for any signs of infection openings in the skin or irregularities to both feet. Patient had a diabetic neurological exam today to both their feet and discussed proper shoe gear. Patient education on condition and treatment of condition. Continue with creams to feet daily Phillip Bingham DPM documented in this encounter [facility] 06-07-2024 History of Present illness Narrative Chief Complaint Patient presents with Sleep Apnea Subjective Lizzy Gutierrezkade, 78 y.o., male is here for a follow up. He states that he is wearing his machine every night. His machine is supposed to turn on when he puts the mask on and it is not doing that. He has to turn it on. He states that his pressure seems good. His mask is not fitting right. He is supposed to go to [place] and get measured. Pt states that he is getting about 8-10 hrs of sleep. Knee pain is no longer waking him up. He had his knee treated. Pt states that he does feel rested in the morning. The machine is working well and he is getting good benefit from the machine. He is compliant and doing well NO other new issues. He would like a different mask but has not gone to get a new mask fit. He can have a little leak in the morning. Pt states that his numbness and tingling is about the same. He states sometimes it will feel like he was stung in his hand. He is wearing the splints at night and that does help. He has arthritis also that can bother him. He questions getting an injections but his pain is more on the dorsal aspect of digiti 2 on the left hand. He feels like the first injection did help with a lot of his symptoms. He is now on ozempic for his sugars which is helping his weight but not in sugars. Past Medical History: Diagnosis Date Anxiety Arthritis BPH (benign prostatic hyperplasia) BPPV (benign paroxysmal positional vertigo) CAD (coronary artery disease) (CMS/HCC) Colon polyp Depression ([facility]) DM polyneuropathy ([facility]/HCC) NARINDER (generalized anxiety disorder) ([facility]/HCC) HLD (hyperlipidemia) (CMS/HCC) Hoarseness of voice HTN (hypertension) (CMS/HCC) Lumbar spondylosis Mitral regurgitation OA (osteoarthritis) BHUPENDRA (obstructive sleep apnea) Stomach upset Past Surgical History: Procedure Laterality Date ABDOMINAL HERNIA REPAIR 01/2013 CARDIAC SURGERY 08/01/2016 CARPAL TUNNEL RELEASE Right 10/30/2014 COLONOSCOPY COLONOSCOPY CORONARY ANGIOPLASTY WITH STENT PLACEMENT 2005 CORONARY ANGIOPLASTY WITH STENT PLACEMENT 07/2016 x4 CYST REMOVAL 01/2010 e/o cyst on right foot CYSTOSCOPY W/ TRANSURETHRAL RESECTION OF POSTERIOR URETHERAL VALVES 02/2016 HEMICOLECTOMY Right 08/2003 TOTAL HIP ARTHROPLASTY Right 2007 VENTRAL HERNIA REPAIR Right 08/2007 Family History Problem Relation Name Age of Onset Heart disease Mother Hypertension Mother Diabetes Father Heart disease Father Social History Tobacco Use Smoking status: Former Types: Cigarettes Passive exposure: Past Smokeless tobacco: Never Substance Use Topics Alcohol use: Never Allergies: Patient has no known allergies. General: No fever or chills HEENT: No nasal congestion or runny nose Pulmonary: No shortness of breath or cough Cardiovascular: No chest pain or palpitations GI: No nausea or vomiting : No dysuria or hematuria Musculoskeletal: No new aches or pains or muscle weakness Infectious: no recurrent fevers or infections Dermatologic: No rashes or skin lesions Neurologic: No new headaches or dizziness Vitals: 06/07/24 1255 BP: 142/76 Pulse: 73 SpO2: 95% Body mass index is 33.61 kg/m . weight: 202 lb Neurologic exam: Mental status: Awake, alert to person, place and time. Recent and remote memory are intact. Attention and concentration are normal. Fund of knowledge is appropriate for level of education. HEENT: NC/AT Cranial nerves: CN II: Visual storey full to confrontation. No loss of vision CN III, IV, : pupils equal round and reactive to light. Extraocular movements intact. No ptosis present. CN V: Facial sensation is normal. CN VII: Full and symmetric facial movement. CN VIII: Hearing is normal CN IX and X: Palate elevates symmetrically. CN XI: Shoulder shrug is normal bilaterally. CN XII: Tongue is midline without atrophy or fasciculation. Speech: Clear and fluent no aphasia or dysarthria Pronator drift: Negative bilateral upper extremity Coordination: Intact, no signs of dysmetria Good finger to nose and rapid alternating movements Sensory: Sensation is intact to light, temperature and vibratory touch throughout four extremities. Motor: LUE 5/5 RUE 5/5 LLE 5/5 RLE 5/5 Tone: Physiologic, no tremor, bradykinesia or rigidity DTR: Bilateral Biceps Bilateral BR 2/4 Bilateral Patellar 1/4 Gait: Normal to casual gait Romberg's Negative Review and summary of old records: Assessment/Plan Diagnoses and all orders for this visit: BHUPENDRA (obstructive sleep apnea) Hyposomnia Snoring Carpal tunnel syndrome, bilateral Paresthesias Ulnar neuropathy, unspecified laterality 77-year-old male with obstructive sleep apnea leading to daytime hypersomnolence and snoring. He is doing well with the CPAP machine and compliant controlling his symptoms. He is using the machine 100 percent of the time greater than 4 hours average nightly usage 9 hours and 36 minutes and residual AHI of 0.4. He is set at BiPAP of 8/15 cm of water. The neck pain from the mask is improved he still may benefit from getting a different mask fit as he has a little bit of a leak in the morning Does have underlying obesity and would benefit from aggressive diet exercise And weight loss. Patient does have some numbness and tingling into his left arm primarily but has been on both sides. 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 Did have a carpal tunnel release on the right about 6-7 years ago. His EMG in 2020 showed right mild early mod carpal tunnel syndrome and left moderate to severe carpal tunnel syndrome he did speak with Dr. Begum let that time did not recommend surgery. He has been wearing the cock-up wrist splints. He questions and injection however he is not really having pain into the hand. He more has arthritic pain into the metacarpal joints of the thumb and the dorsal aspect of the 1st digit on the left hand which is not carpal tunnel. We can consider doing a carpal tunnel injection if and when his pain worsens however he is also working on getting his sugars on control and would like to minimize any exposure to steroids which is reasonable. Plan Download was reviewed and he is compliant Consider a repeat carpal tunnel injection pending his course Be more aggressive with diet and exercise to control the sugars Continue with a new CPAP machine Consider repeat EMG to look for severity. The patient was counseled on the risks of stroke, MA, and sudden with BHUPENDRA, along with the need for compliance with the CPAP/BiPAP treatment. The patient was counseled on proper sleep hygiene and adequate hours of sleep. The diagnosis was all discussed with the patient. All questions were answered and they agreed with the treatment plan. Patient will call if there are any new issues or questions. Pt has been fully educated on their diagnosis, treatment options, follow up plan, and return instructions Return to clinic: documented in this encounter [facility] 06-02-2024 History of Present illness Narrative Patient: Lizzy Yee : 1945 PCP: Juancarlos Cuenca MD SUBJECTIVE This is a 78 y.o. male that presents today with a CC of elongated, thick nails. Pt states nails have been elongated and thick for many years and cause pain with ambulation in shoegear. Pt has tried previous treatment with minimal relief. Pt presents today for nail care and treatment. Patient is DM2 Patient also presents today for follow-up of dry skin and fissures to feet and has been using prescribed or recommended [id number] cream with positive improvement. Allergies: No Known Allergies Past Medical History: Past Medical History: Diagnosis Date Anxiety Arthritis BPH (benign prostatic hyperplasia) BPPV (benign paroxysmal positional vertigo) CAD (coronary artery disease) ([facility]) Colon polyp Depression ([facility]HCC) DM polyneuropathy ([facility]HCC) NARINDER (generalized anxiety disorder) ([facility]) HLD (hyperlipidemia) ([facility]) Hoarseness of voice HTN (hypertension) ([facility]) Lumbar spondylosis Mitral regurgitation OA (osteoarthritis) BHUPENDRA (obstructive sleep apnea) Stomach upset Medications: Current Outpatient Medications: amLODIPine (Norvasc) 5 MG tablet, TAKE 1 TABLET BY MOUTH EVERY DAY FOR 30 DAYS, Disp: , Rfl: aspirin 81 MG EC tablet, Take 1 tablet by mouth Daily, Disp: , Rfl: atorvastatin (Lipitor) 80 MG tablet, Take 1 tablet by mouth at bedtime, Disp: , Rfl: baclofen (Lioresal) 10 MG tablet, , Disp: , Rfl: carvedilol (Coreg) 12.5 MG tablet, Take 1 tablet by mouth in the morning and 1 tablet before bedtime., Disp: , Rfl: carvedilol (Coreg) 25 MG tablet, Take 1 tablet by mouth in the morning and 1 tablet before bedtime., Disp: , Rfl: cholecalciferol (Vitamin D-3) 50 MCG (1999 [place]) capsule, Take 1 capsule every day by oral route., Disp: , Rfl: clopidogrel (Plavix) 75 MG tablet, Take 1 tablet by mouth Daily, Disp: , Rfl: gabapentin (Neurontin) 100 MG capsule, TAKE 1 CAPSULE BY MOUTH AT BEDTIME for 14 days, Disp: , Rfl: glipiZIDE (Glucotrol) 5 MG tablet, TAKE 1 TABLET BY MOUTH EVERY DAY 30 MINUTES PRIOR TO BREAKFAST, Disp: , Rfl: hydroCHLOROthiazide (HYDRODiuril) 25 MG tablet, Take 1 tablet by mouth Daily, Disp: , Rfl: lisinopril 30 MG tablet, Take 30 mg by mouth Daily, Disp: , Rfl: metFORMIN (Glucophage) 1000 MG tablet, TAKE 1 TABLET BY MOUTH TWICE A DAY BEFORE BREAKFAST AND EVENING MEAL, Disp: , Rfl: metroNIDAZOLE (Flagyl) 500 MG tablet, TAKE 1 TAB BY MOUTH AT 6PM,ANOTHER AT 7PM,AND AGAIN AT 11PM EVENING PRIOR TO SURGERY, Disp: , Rfl: neomycin (Mycifradin) 500 MG tablet, TAKE 2 TABS BY MOUTH AT 6PM,AGAIN AT 7PM,AND 11PM THE EVENING PRIOR TO SURGERY DIRECTED, Disp: , Rfl: oxyCODONE (Roxicodone) 5 MG immediate release tablet, Take 1 tablet by mouth every 6 (six) hours if needed, Disp: , Rfl: pantoprazole (ProtoNix) 40 MG EC tablet, TAKE 1 TABLET BY MOUTH DAILY ON EMPTY STOMACH FOLLOWED IN 30 MINUTES BY BREAKFAST, Disp: , Rfl: tamsulosin (Flomax) 0.4 MG 24 hr capsule, Take 1 capsule by mouth Daily, Disp: , Rfl: triamcinolone (Kenalog) 0.1 % ointment, Apply topically 2 (two) times a day, Disp: , Rfl: Social History: Social History Socioeconomic History Marital status: Spouse name: Not on file Number of children: Not on file Years of education: Not on file Highest education level: Not on file Occupational History Not on file Tobacco Use Smoking status: Former Types: Cigarettes Passive exposure: Past Smokeless tobacco: Never Vaping Use Vaping status: Never Used Substance and Sexual Activity Alcohol use: Never Drug use: Never Sexual activity: Defer Other Topics Concern Not on file Social History Narrative Not on file Social Drivers of Health Financial Resource Strain: Not on file Food Insecurity: No Food Insecurity (07/02/2023) Received from [facility], [facility] Hunger Screening Within the past 12 months we worried whether our food would run out before we got money to buy more.: Never True Within the past 12 months the food we bought just didn't last and we didn't have money to get more.: Never True Transportation Needs: Not on file Physical Activity: Not on file Stress: Not on file Social Connections: Not on file Intimate Partner Violence: Unknown (09/10/2023) Received from [facility], [facility] [place] Safety & Environment Fear of Current or Ex-Partner: Not on file Emotionally Abused: Not on file Physically Abused: Not on file Sexually Abused: Not on file Physically or Sexually Abused: Not on file Housing Stability: Not on file ROS: General: denies fever, chills, fatigue, malaise OBJECTIVE LE EXAM: DERM: Elongated thick yellow crumbly nails digits 1 through 10. Negative hair growth with thin shiny atrophic skin bilaterally. Resolved and negative Dry and scaly skin to bilateral feet and ankle region VASC: Positive DP and negative PT pedal pulses NEURO: 5.07 [place] monofilament test diminished to digits and forefoot bilaterally 125Hz tuning fork diminished to 1st MPJ bilaterally ORTHO: Positive pain on palpation to nails 1 through 10 ASSESSMENT 1. 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 Pain due to onychomycosis of toenails of both feet 3. Xerosis cutis PLAN Discussed proper foot care with patient today. Debride nails in length and thickness digits 1 through 10 Patient educated today on proper diabetic foot care including monitoring feet daily for any signs of infection openings in the skin or irregularities to both feet. Patient had a diabetic neurological exam today to both their feet and discussed proper shoe gear. Patient education on condition and treatment of condition. Continue with creams to feet daily Phillip Bingham DPM documented in this encounter [facility] 05-04-2024 Note [facility] Cardiology Clinic Note Chief Complaint: Patient [...] common femoral artery. Surgeon: Jyoti Mccurdy Primary Plastics And Composites Inspector: None. Anesthesia: Local with 1% lidocaine and sedation. EBL: 10 cc Complications: None. 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 Procedure: Patient was brought to the angiogram suite. He was placed on the table in supine position. Left groin area was prepped and draped in the usual sterile fashion. Patient was give (more content not included)... [facility] 10-28-2023 Miscellaneous Notes Returned call and [...] Patient and or can be reached at [phone]. Thank you. Wendi Traore documented in this encounter [facility] 10-15-2023 Note HNO ID: [id number] Author: JAY GONZALEZ MD Service: ? Author Type: Physician Type: Progress Notes Filed: 10/15/2023 13:41 Note Text: [facility] Abdominal Core Health - Follow Up [...] Gonzalez MD 10/15/23, 1:38 PM General Surgery [facility] Medical Decision Making: Problems: Low: Stable chronic illness Risk: Low: Low risk from testing/treatment Medical Decision Making Level: 3 - Low [facility] 08-10-2023 Evaluation note Encounter Date Diagnosis Assessment Notes Jul, Other Summary of Visit: (A) Meal timing (B) DM2 nutrition education (C) Answered general, nutrition-rela maru questions [facility] Other 11-28-2023 Evaluation note* Encounter Date Diagnosis Assessment Notes Treatment Notes Treatment Clinical Notes May, Type 2 diabetes mellitus with hyperglycemia, without long-term current use of insulin (ICD-10 - E11.65) [facility] Other 11-28-2023 Evaluation note* Encounter Date Diagnosis Assessment Notes Treatment Notes Treatment Clinical Notes May, Primary hypertension (ICD-10 - I10) [facility] Other 11-21-2023 Evaluation note* Encounter Date Diagnosis Assessment Notes Treatment Notes Treatment Clinical Notes May, Type 2 diabetes mellitus with hyperglycemia, without long-term current use of insulin (ICD-10 - E11.65) [facility] Other 11-17-2023 Evaluation note* Encounter Date Diagnosis [...] index [BMI] 39.0-39.9, adult (ICD-10 - Z68.39) [facility] Other 11-08-2023 Evaluation note* Encounter Date Diagnosis Assessment Notes Treatment Notes Treatment Clinical Notes May, Primary hypertension (ICD-10 - I10) [facility] Other 10-29-2023 Evaluation note* Encounter Date Diagnosis Assessment Notes Treatment Notes Treatment Clinical Notes Apr, Type 2 diabetes mellitus with hyperglycemia, without long-term current use of insulin (ICD-10 - E11.65) Apr, Primary hypertension (ICD-10 - I10) [facility] Other 10-19-2023 Evaluation note* Encounter Date Diagnosis Assessment Notes Treatment Notes Treatment Clinical Notes Apr, Type 2 diabetes mellitus with hyperglycemia, without long-term current use of insulin (ICD-10 - E11.65) [facility] Other 10-18-2023 Evaluation note* Encounter Date Diagnosis Assessment Notes Treatment Notes Treatment Clinical Notes Apr, ASHD (arteriosclerotic heart disease) (ICD-10 - I25.10) This patient is stable without activity related CP, dyspnea or lightheadedness. They are instructed to continue exercise and AHA diet plan. Continue secondary prevention measures. Data Processing Supervisor suggesting SGLT-2 for dual benefit w/ ASHD [...] contributed. Monitor for now Apr, Atherosclerosis of [place] artery of right lower extremity with rest pain (ICD-10 - I70.221) Walk daily until painful. Inspect feet daily for cuts. Continue secondary prevention measures. Scheduled post op JAMIR [facility] Other 10-18-2023 Evaluation note* Encounter Date Diagnosis Assessment Notes Treatment Notes Treatment Clinical Notes Apr, Type 2 diabetes mellitus with hyperglycemia, without long-term current use of insulin (ICD-10 - E11.65) [facility] Other 08-22-2023 Evaluation note* Encounter Date Diagnosis [...] [BMI ] 39.0-39.9, adult (ICD-10 - Z68.39) [facility] Other 05-31-2023 NoteOPERATIVE NOTE OPERATION DATE: 11/29/2022 [...] in three years. CC: Juancarlos Cuenca D.O.[facility] [id number] NotePROCEDURE: XR HIP LT 2 3V WO PELVIS HISTORY: Pain of left hip joint COMPARISON: None. FINDINGS: BONES:No fracture, acute abnormality, or significant arthropathy. SOFT TISSUES:No visible soft tissue swelling. EFFUSION:None visible. OTHER: Negative. IMPRESSION: 1. No acute bone abnormality. 2. Mild degenerative joint disease. Electronically authenticated by: GABY PADILLA Date: 2022-11-28 13:08[facility]04-11-2023 NoteCONSULTATION CONSULTATION DATE: 10/28/2022 TO: Juancarlos [...] our patients to inform us about any biym-iej-bmffibx medications or herbal remedies/nutritional supplements/alternative remedies. 2. [...] treatment options with their primary care provider.[facility] [id number] History of Present illness Narrative* Jay Gonzalez MD - 10/16/2022 2:38 PM EDT [facility] Abdominal Core Health - Follow Up [...] Gonzalez MD 10/16/22, 2:45 PM General Surgery [facility] * Destiny Zapata MA - 10/16/2022 1:09 PM EDT What is the reason for your visit today? Follow up 1 year Who is your referring physician? Are you having poor oral intake? NO Have you had unintentional weight loss of 15 lbs/7 Kg in the last 3-6 months? NO Bowels: regular Wound: Temperature: No Drains: No documented in this encounterC[facility]03-[facility]-2023 Miscellaneous Notes* Allied Health - RT Marisa(R) [...] 11, 2022 10:29 AM documented in this encounterC[facility]03-21-2023 Miscellaneous Notes* Telephone Encounter - Efrain Zamarripa RN - 10/07/2022 10:42 AM EDT Returned call, went to [employer]. Left message that the CT has been ordered without contrast. Left office number for questions or concerns. * Telephone Encounter - Anjelica Harsh - 10/06/2022 3:02 PM EDT Pt's called he is going in for a CT scan on Thursday does he need to have a creatinine blood level, says he had one within the last month or so at a non facility. PH: [phone] documented in this encounterCleveland Clinic [facility]02-24-2023 Evaluation note* Encounter Date Diagnosis Assessment Notes Treatment Notes Treatment Clinical Notes Aug, Left carotid artery stenosis (ICD-10 - I65.22) US: right <50%, left 50-69% - 10/2020 US: right <50%, left 80-90% - 08/2022 [facility] Other 02-20-2023 Evaluation note* Encounter Date Diagnosis [...] reviewed and amended by provider signed below. [facility] Other 01-12-2023 NoteCONSULTATION PROCEDURE DATE: 09/18/2022 PREOPERATIVE [...] will be followed up in the office.[facility] [id number] NoteCONSULTATION CONSULTATION DATE: 07/31/2022 HISTORY OF PRESENT [...] and the patient agrees with this plan.[facility] 05-29-2022 NoteCONSULTATION CONSULTATION DATE: 05/29/2022 HISTORY [...] be followed up in the clinic thereafter.[facility] [id number] NoteCONSULTATION CONSULTATION DATE: 04/24/2022 This is a [...] approval to hold his Plavix from his dynamo tender. A refill for Baclofen 10 mg q.h.s. [...] knee osteoarthritis. The patient is in agreement.[facility] [id number] Note CONSULTATION CONSULTATION DATE: 03/25/2022 CHIEF COMPLAINT: 1. Low back pain. 2. Left knee pain. HISTORY OF PRESENT ILLNESS: This is a very pleasant, 76-year-old male, who is known to the pain practice remote. The patient had a right total knee replacement at [facility]. The patient is doing well [...] patient understands and would like to proceed.[facility] 01-27-2022 Nurse Note* Sarah Osman MA [...] Temperature: No Drains: No documented in this encounterCleveland Clinic [facility]07-[facility]22 History of Present illness Narrative* Jus Medina [...] needed. Jus Medina MD documented in this encounterCleveland Clinic [facility]03-25-2022 Miscellaneous Notes* Telephone Encounter - Shan Savagechristinemarin - 10/11/2021 3:09 PM EDTSummary: IRB#: [id number] Research Outreach IRB# [id number], Qualitative Interviews in Postoperative Gastrointestinal Dysfunction (POGD). PI: Shilpa Storm MD, SANJIV, FASA. Outcomes Research Department. Anesthesia [place]. This is a research study note. Patient [...] there for his review. Shan Parham Research Plastics And Composites Inspector Anesthesiology [place] Outcomes Research Department documented in this encounterCleveland Clinic [facility]03-24-2022 History of Present illness Narrative* Jay Gonzalez MD - 10/10/2021 1:37 PM EDT [facility] Abdominal Core Health - Follow Up [...] the care that he received while at [place]. Objective: AAOx3, NAD Non-labored respirations on room [...] Gonzalez MD 10/10/21, 1:37 PM General Surgery [facility] documented in this encounterCleveland Clinic [facility]03-24-2022 History of Present illness Narrative* Jus Medina MD - 10/10/2021 11:00 AM EDT HPI Lizzy Yee is a 75 year old male here today for postop Open subtotal colectomy with stapled synj-cd-xnvm ileosigmoid anastomosis ventral herniorrhaphy with transversus abdominus [...] months Jus Medina MD documented in this encounterCleveland Clinic [facility]03-24-2022 Nurse Note* Elena Ferrell MA - 10/10/2021 10:45 AM EDT What is the reason for your visit today? Follow up Who is your referring physician? Self Are you having poor oral intake? NO Have you had unintentional weight loss of 15 lbs/7 Kg in the last 3-6 months? NO Bowels: regular Wound: none Temperature: No Drains: No documented in this encounterCleveland Clinic [facility]03-08-2022 History of Past illness Narrative* Problem Noted Date Resolved Date 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 documented as of this encounter (statuses as of 10/10/2021) [address]08-2022 History of Past illness Narrative* Problem Noted Date Resolved Date 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 documented as of this encounter (statuses as of 10/10/2021) [address]08-2022 History of Past illness Narrative* Problem Noted Date Resolved Date 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 documented as of this encounter (statuses as of 10/11/2021) [address]08-2022 History of Past illness Narrative* Problem Noted Date Resolved Date 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 documented as of this encounter (statuses as of 02/05/2022) [address]08-2022 History of Past illness Narrative* Problem Noted Date Resolved Date 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 documented as of this encounter (statuses as of 10/07/2022) [address]08-2022 History of Past illness Narrative* Problem Noted Date Resolved Date 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 documented as of this encounter (statuses as of 10/12/2022) [address]08-2022 History of Past illness Narrative* Problem Noted Date Resolved Date 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 documented as of this encounter (statuses as of 10/12/2022) [address]08-2022 History of Past illness Narrative* Problem Noted Date Resolved Date 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 documented as of this encounter (statuses as of 10/16/2022) [facility]03-08-[facility] History of Past illness Narrative* Problem Noted Date Diagnosed Date Resolved Date 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 documented as of this encounter (statuses as of 10/28/2023) [facility]06-12-2021 NoteMR#: [id number] 2 [facility] Pt. Name: Lizzy Yee Admitted: 12/26/2020 Discharged: 12/29/2020 Date of : 1945 Physician: Ty Avalos M.D. DISCHARGE SUMMARY [facility] Pt. Name: Kurt Yee Admitted: [...] Cano MD Date Trans: 12/29/2020 08:18 P/ BARRETT_[id number] cc: Juancarlos Cuenca D.O. [address] [place], [place] [id number]Evaluation [facility] note No data available for this section [facility]Evaluation [facility]* Diagnosis Ventral incisional hernia- Primary documented in this encounter [facility] note* Diagnosis Polyposis of colon- Primary Benign neoplasm of colon documented in this encounter [facility] note* Diagnosis Polyposis of colon- Primary Benign neoplasm of colon Incisional hernia, without obstruction or gangrene Incisional hernia without mention of obstruction or gangrene documented in this encounter [facility] noteNo [employer] Other Evaluation note* Diagnosis Ventral incisional hernia documented in this encounter [facility] note* Diagnosis Ventral incisional hernia- Primary documented in this encounter [facility] note* Diagnosis Onset Date Resolution Status ASHD (arteriosclerotic heart disease) acute Elevated cholesterol acute NARINDER (generalized anxiety disorder) acute Obesity acute Obstructive sleep apnea acut e Primary hypertension acute [id number] acute [id number] acute ASHD (arteriosclerotic heart disease) acute Elevated cholesterol acute Obstructive sleep apnea acut e Primary hypertension acute Type 2 diabetes mellitus wit h diabetic peripheral angiopathy without gangrene acute 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 Type 2 diabetes mellitus with hyperglycemia acute [facility] Work Phone: Evaluation note* Diagnosis Onset Date Resolution Status ASHD (arteriosclerotic heart disease) acute Elevated cholesterol acute NARINDER (generalized anxiety disorder) acute Obesity acute Obstructive sleep apnea acut e Primary hypertension acute [id number] acute ASHD (arteriosclerotic heart disease) acute Elevated cholesterol acute Obstructive sleep apnea acut e Primary hypertension acute Type 2 diabetes mellitus wit h diabetic peripheral angiopathy without gangrene acute 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 Type 2 diabetes mellitus with hyperglycemia acute Primary osteoarthritis of left knee acute [facility] Work Phone: Evaluation note* Diagnosis BHUPENDRA (obstructive sleep apnea)- Primary Obstructive sleep apnea (adult) (pediatric) Hyposomnia Insomnia, unspecified Snoring Other dyspnea and respiratory abnormality Carpal tunnel syndrome, bilateral Carpal tunnel syndrome Paresthesias Disturbance of skin sensation Ulnar neuropathy, unspecified laterality [facility]* Diagnosis Diabetes mellitus due to underlying condition with diabetic polyneuropathy, unspecified whether fdc insulin use (CMS/[facility])- Primary Pain due to onychomycosis of toenails of both feet Xerosis cutis Other specified disease of sebaceous glands documented in this encounter [facility] HealthcareEvaluation note* Diagnosis Xerosis cutis- Primary Other specified disease of sebaceous glands Diabetes mellitus due to underlying condition with diabetic polyneuropathy, 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 ([facility]) Onychomycosis Dermatophytosis of nail Toe pain, bilateral documented in this encounter [facility] HealthcareEvaluation note* Diagnosis Diabetes mellitus due to underlying condition with diabetic polyneuropathy, 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 (CMS/[facility])- Primary Pain due to onychomycosis of toenails of both feet Xerosis cutis Other specified disease of sebaceous glands documented in this encounter [facility] HealthcareEvaluation note* Diagnosis Age-related nuclear cataract of right eye- Primary Left posterior capsular opacification Unspecified after-cataract documented in this encounter [facility] HealthcareHistory general Narrative - Reported* Type Description Date [...] HEMICOLECTOMY 2003 Hospitalization History SEE SURGICAL HX [facility] Other History general Narrative - Reported* Type [...] Colonoscopy 12/2022 Hospitalization History SEE SURGICAL HX [facility] Other History general Narrative - Reported* Type [...] anaya 03/2023 Hospitalization History SEE SURGICAL HX [facility] Other History of Present illness Narrative* Phillip Bingham DPM - 03/24/2024 2:30 PM EDT Patient: Lizzy Yee : 1945 PCP: Juancarlos Cuenca MD SUBJECTIVE This is a 78 y.o. male that presents today with a CC of elongated, thick nails. Pt states nails have been elongated and thick for many years and cause pain with ambulation in shoegear. Pt has tried previous treatment with minimal relief. Pt presents today for nail care and treatment. Patient is DM2 Patient also presents today for follow-up of dry skin and fissures to feet and has been using prescribed or recommended yope-vss-bwvidww cream with positive improvement. Allergies: No Known Allergies Past Medical History: Past Medical History: Diagnosis Date Anxiety Arthritis BPH (benign prostatic hyperplasia) BPPV (benign paroxysmal positional vertigo) CAD (coronary artery disease) (CMS/HCC) Colon polyp Depression (CMS/HCC) DM polyneuropathy (CMS/HCC) NARINDER (generalized anxiety disorder) (CMS/HCC) HLD (hyperlipidemia) ([facility]/HCC) Hoarseness of voice HTN (hypertension) (CMS/HCC) Lumbar spondylosis Mitral regurgitation OA (osteoarthritis) BHUPENDRA (obstructive sleep apnea) Stomach upset Medications: Current Outpatient Medications: amLODIPine (Norvasc) 5 MG tablet, TAKE 1 TABLET BY MOUTH EVERY DAY FOR 30 DAYS, Disp: , Rfl: aspirin 81 MG EC tablet, Take 1 tablet by mouth Daily, Disp: , Rfl: atorvastatin (Lipitor) 80 MG tablet, Take 1 tablet by mouth at bedtime, Disp: , Rfl: baclofen (Lioresal) 10 MG tablet, , Disp: , Rfl: carvedilol (Coreg) 12.5 MG tablet, Take 1 tablet by mouth in the morning and 1 tablet before bedtime., Disp: , Rfl: carvedilol (Coreg) 25 MG tablet, Take 1 tablet by mouth in the morning and 1 tablet before bedtime., Disp: , Rfl: cholecalciferol (Vitamin D-3) 50 MCG (1999) capsule, Take 1 capsule every day by oral route., Disp: , Rfl: clopidogrel (Plavix) 75 MG tablet, Take 1 tablet by mouth Daily, Disp: , Rfl: gabapentin (Neurontin) 100 MG capsule, TAKE 1 CAPSULE BY MOUTH AT BEDTIME for 14 days, Disp: , Rfl: glipiZIDE (Glucotrol) 5 MG tablet, TAKE 1 TABLET BY MOUTH EVERY DAY 30 MINUTES PRIOR TO BREAKFAST, Disp: , Rfl: hydroCHLOROthiazide (HYDRODiuril) 25 MG tablet, Take 1 tablet by mouth Daily, Disp: , Rfl: lisinopril 30 MG tablet, Take 30 mg by mouth Daily, Disp: , Rfl: metFORMIN (Glucophage) 1000 MG tablet, TAKE 1 TABLET BY MOUTH TWICE A DAY BEFORE BREAKFAST AND EVENING MEAL, Disp: , Rfl: metroNIDAZOLE (Flagyl) 500 MG tablet, TAKE 1 TAB BY MOUTH AT 6PM,ANOTHER AT 7PM,AND AGAIN AT 11PM EVENING PRIOR TO SURGERY, Disp: , Rfl: neomycin (Mycifradin) 500 MG tablet, TAKE 2 TABS BY MOUTH AT 6PM,AGAIN AT 7PM,AND 11PM THE EVENING PRIOR TO SURGERY DIRECTED, Disp: , Rfl: oxyCODONE (Roxicodone) 5 MG immediate release tablet, Take 1 tablet by mouth every 6 (six) hours ifneeded, Disp: , Rfl: pantoprazole (ProtoNix) 40 MG EC tablet, TAKE 1 TABLET BY MOUTH DAILY ON EMPTY STOMACH FOLLOWED IN 30 MINUTES BY BREAKFAST, Disp: , Rfl: tamsulosin (Flomax) 0.4 MG 24 hr capsule, Take 1 capsule by mouth Daily, Disp: , Rfl: triamcinolone (Kenalog) 0.1 % ointment, Apply topically 2 (two) times a day, Disp: , Rfl: Social History: Social History Socioeconomic History Marital status: Spouse name: Not on file Number of children: Not on file Years of education: Not on file Highest education level: Not on file Occupational History Not on file Tobacco Use Smoking status: Former Types: Cigarettes Passive exposure: Past Smokeless tobacco: Never Vaping Use Vaping status: Never Used Substance and Sexual Activity Alcohol use: Never Drug use: Never Sexual activity: Defer Other Topics Concern Not on file Social History Narrative Not on file Social Determinants of Health Financial Resource Strain: Not on file Food Insecurity: No Food Insecurity (07/02/2023) Received from [facility] [place], [facility] Hunger Screening Within the past 12 months we worried whether our food would run out before we got money to buy more.: Never True Within the past 12 months the food we bought just didn't last and we didn't have money to get more.: Never True Transportation Needs: Not on file Physical Activity: Not on file Stress: Not on file Social Connections: Not on file Intimate Partner Violence: Unknown (09/10/2023) Re[facility] from [facility] [place] Safety & Environment Fear of Current or Ex-Partner: Not on file Emotionally Abused: Not on file Physically Abused: Not on file Sexually Abused: Not on file Physically or Sexually Abused: Not on file Housing Stability: Not on file ROS: General: denies fever, chills, fatigue, malaise OBJECTIVE LE EXAM: DERM: Elongated thick yellow crumbly nails digits 1 through 10. Negative hair growth with thin shiny atrophic skin bilaterally. Resolved and negative Dry and scaly skin to bilateral feet and ankle region VASC: Positive DP and negative PT pedal pulses NEURO: 5.07 [place] monofilament test diminished to digits and forefoot bilaterally 125Hz tuning fork diminished to 1st MPJ bilaterally ORTHO: Positive pain on palpation to nails 1 through 10 ASSESSMENT 1. Xerosis cutis 2. 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 Onychomycosis 4. Toe pain, bilateral PLAN Discussed proper foot care with patient today. Debride nails in length and thickness digits 1 through 10 Patient educated today on proper diabetic foot care including monitoring feet daily for any signs of infection openings in the skin or irregularities to both feet. Patient had a diabetic neurologicalexam today to both their feet and discussed proper shoe gear. Patient education on condition and treatment of condition. Continue with creams to feet daily Phillip Bingham DPM documented in this encounterMissouri [facility] CenterHospital Discharge instructions No data available for this section [facility] HospitalProgress note No data available for this section [facility] HospitalReason for referral (narrative)* Reason 10/09/22 Referral for carotid artery stenosis Diagnosis 1 Left carotid artery stenosis (I65.22) Referral Organization [facility] Chava chester Referring Provider First Name Juancarlos Referring Provider Last Name Bang Referring Provider Specialty Internal Me dicine Referred Organization [facility] Referred Provider Jyoti Mccurdy Referred Address [address] [place], [place],[address] Referred Provider Specialty Vascular Ruslan rdz Referral Priority Routine Referral Appointment Date 2022-10-09 General Notes Mr. Hooper is being r eferred for carotid artery stenosis. He recently completed carotid artery US at [facility], which revealed 87% left carotid bulb stenosis. The ICA velocities are not elevated, which was suggested to be due to hemodynamically significant stenosis in the left bulb. Seema Jaquez 09/23/2022 01:11:23 PM >received today, attachments made, referral faxed Janae Fulton 09/29/2022 02:11:56 PM > Patient is scheduled on 10/09 at 10 a.m. at [facility] Clinical Notes Mr. Hooper is being r eferred for further evaluation and treatment of left carotid artery stenosis. He has multiple risk factors, including HTN, HLD, DM and PAD. He has no history of TIA or CVA. He denies diplopia, loss of vision, dysarthria, facial droop or unilateral extremity weakness. F: [phone] charming charlie Other Summary Purpose Family History No Family [...] FoundDocuments on File Type Date Recorded Patient Supervisor Wood Room Expl anation Advance Directive(s) 09/24/2021 8:40 AM Advance Directive(s) 06/07/2021 10:19 AM Advance Directive(s) 05/15/2021 3:36 PM M ain Documents on File Type Date Recorded Patient Supervisor Wood Room Expl anation Advance Directive(s) 09/24/2021 8:40 AM Advance Directive(s) 06/07/2021 10:19 AM Advance Directive(s) 05/15/2021 3:36 PM M ain Documents on File Type Date Recorded Patient Supervisor Wood Room Expl anation Advance Directive(s) 09/24/2021 8:40 AM Documents on File Type Date Recorded Patient Supervisor Wood Room Expl anation Advance Directive(s) 09/24/2021 8:40 AM Advance Directive Response Recorded Date/ Time Advance Directives No August 05, 2023 12:06pm Reason for Referral Specialty Diagnoses / Procedures Referred By Contac t Referred To Contact CT IMAGING Diagnoses Ventral incisional hernia Procedures CT ABD/PEL WO IVCON CT ABD & PELVIS W/O CONTRAST Jay Gonzalez MD [id number] Imaging Referral ID Status Reason Start Date Expiration Date Visits Requested Visits Authorized [id number] Pending Review Auto-Generat ed Referral 10/10/2022 11/09/2022 1 1 Referral ID Status Reason Start Date Expiration Date V isits Requested Visits Authorized [id number] Closed Auto-Generate d Referral 10/10/2022 11/09/2022 1 1 Specialty Diagnoses / Procedures Referred By Contac t Referred To Contact CT IMAGING Diagnoses Ventral incisional hernia Procedures CT ABD/PEL WO IVCON CT ABD & [place] [address] [place] [address] Ct Imaging Referral ID Status Reason Start Date Expiration Date Visits Requested Visits Authorized [id number] Pending Review Auto-Generat ed Referral 10/16/2022 11/15/2023 1 1 Chief Complaint and Reason for Visit Chief Complaint WMN f/u DL 10-14 day DS 3 month follow up Reason for Visit ASHD (arteriosclerot ic heart disease) Elevated cholesterol NARINDER (generalized anxiety disorder) Obesity Obstructive sleep apnea Primary hypertension [id number] ASHD (arteriosclerotic heart disease) Elevated cholesterol Obstructive [...] disorder) Obesity Obstructive sleep apnea Primary hypertension [id number] ASHD (arteriosclerotic heart disease) Elevated cholesterol Obstructive [...] section and content) DATE CREATED AUTHOR 03/11/2021 [facility] DATE CREATED AUTHOR AUTHOR'S ORGANIZ ATION 10/13/2022 [facility] DATE CREATED AUTHOR AUTHOR'S ORGANIZ ATION 12/29/2022 [facility] DATE CREATED AUTHOR AUTHOR'S ORGANIZ ATION 12/29/2022 [facility] DATE CREATED AUTHOR AUTHOR'S ORGANIZ ATION 10/29/2023 [facility] DATE CREATED AUTHOR AUTHOR'S ORGANIZ ATION 04/18/2024 [facility] DATE CREATED AUTHOR AUTHOR'S ORGANIZ ATION 04/23/2024 [facility] DATE CREATED AUTHOR AUTHOR'S ORGANIZ ATION 05/14/2024 [facility] DATE CREATED AUTHOR AUTHOR'S ORGANIZ ATION 08/27/2024 [facility] EPIC Source Comments (unrecognize d section and content) In the event this informatio n is protected by the Federal Confidentiality of Alcohol and Drug Abuse Patient Records regulations: The Federal rules restrict any use of the information to criminally investigate or prosecute any alcohol or drug abuse patient.[facility] RehabilitationIn the event this information is protected by the Federal Confidentiality of Alcohol and Drug Abuse Patient Records regulations: The Federal rules restrict any use of the information to criminally investigate or prosecute any alcohol or drug abuse patient.[facility] RehabilitationIn the event this information is protected by the Federal Confidentiality of Alcohol and Drug Abuse Patient Records regulations: The Federal rules restrict any use of the information to criminally investigate or prosecute any alcohol or drug abuse patient.[facility] RehabilitationIn the event this information is protected by the Federal Confidentiality of Alcohol and Drug Abuse Patient Records regulations: The Federal rules restrict any use of the information to criminally investigate or prosecute any alcohol or drug abuse patient.[facility] RehabilitationIn the event this information is protected by the Federal Confidentiality of Alcohol and Drug Abuse Patient Records regulations: The Federal rules restrict any use of the information to criminally investigate or prosecute any alcohol or drug abuse patient.[facility] RehabilitationIn the event this information is protected by the Federal Confidentiality of Alcohol and Drug Abuse Patient Records regulations: The Federal rules restrict any use of the information to criminally investigate or prosecute any alcohol or drug abuse patient.[facility] RehabilitationIn the event this information is protected by the Federal Confidentiality of Alcohol and Drug Abuse Patient Records regulations: The Federal rules restrict any use of the information to criminally investigate or prosecute any alcohol or drug abuse patient.[facility] RehabilitationIn the event this information is protected by the Federal Confidentiality of Alcohol and Drug Abuse Patient Records regulations: The Federal rules restrict any use of the information to criminally investigate or prosecute any alcohol or drug abuse patient.[facility] RehabilitationIn the event this information is protected by the Federal Confidentiality of Alcohol and Drug Abuse Patient Records regulations: The Federal rules restrict any use of the information to criminally investigate or prosecute any alcohol or drug abuse patient.[facility] Reason for Visit (unrecogniz ed section and content) Reason Comments Follow Up Reason Comments Follow Up Reason Onset Date Comments Research 10/11/2021 Reason Comments Established Patient Follow-Up Reason Comments Patient Question Specialty Diagnoses / Procedures Referred By Contac t Referred To Contact CT IMAGING Diagnoses Ventral incisional hernia Procedures CT ABD/PEL WO IVCON CT ABD & [place] [address] [place] [id number] Imaging Referral ID Status Reason Start Date Expiration Date V isits Requested Visits Authorized [id number] Closed Auto-Generate d Referral 10/10/2022 11/09/2022 1 1 Reason Comments Follow Up 1 year, ventral inci sional hernia Reason Comments Sleep Apnea Reason Comments DM Foot Care Dm Nails Reason Comments DM Foot Care Dm nail care Reason Comments Cataract Blurred Vision Care Teams (unrecognized sec tion and content) [...] April 21, 2024 End: April 21, 2024 Vice President Of Development Relationship Specialty Start Date End Date Juancarlos Cuenca DO PCP - General Internal Medicine 10/23/14 Pedro Richardson [address] [facility] [place] [phone] Cardiology 09/13/21 Vice President Of Development Relationship Specialty Start Date End Date Juancralos Cuenca, DO PCP - General Internal Medicine 10/23/14 Pedro Richardson [address] [facility] [place] [phone] Cardiology 09/13/21 Vice President Of Development Relationship Specialty Start Date End Date Juancarlos Cuenca, DO PCP - General Internal Medicine 10/23/14 Pedro Richardson [address] [facility] [place] [phone] Cardiology 09/13/21 Vice President Of Development Relationship Specialty Start Date End Date Juancarlos Cuenca, DO PCP - General Internal Medicine 10/23/14 Pedro Richardson MD Cardiology 09/13/21 Vice President Of Development Relationship Specialty Start Date End Date Juancarlos Cuenca, DO PCP - General Internal Medicine 10/23/14 Pedro Richardson MD Cardiology 09/13/21 Vice President Of Development Relationship Specialty Start Date End Date Juancarlos Cuenca, DO PCP - General Internal Medicine 10/23/14 Pedro Richardson MD Cardiology 09/13/21 Vice President Of Development Relationship Specialty Start Date End Date Juancarlos Cuenca, DO PCP - General Internal Medicine 10/23/14 Pedro Richardson MD Cardiology 09/13/21 Vice President Of Development Relationship Specialty Start Date End Date Juancarlos Cuenca DO PCP - General Internal Medicine 10/23/14 Pedro Richardson MD Cardiology 09/13/21 Vice President Of Development Relationship Specialty Start Date End Date Juancarlos [...] 2023 End: November 17, 2023 Jimbo Arizmendi , NILAM Attending Provider Active St art: November 17, 2023 End: November 17, 2023 Team Status: Inactive Member Role Status Dates Juancarlos Cuenca DO Primary Care Provide r, Attending Provider Active Start: December 08, 2023 End: December 08, 2023 Vice President Of Development Relationship Specialty Start Date End Date Juancarlos Cuenca MD [address] [facility] [place] [phone] PCP - General Internal Medicine 10/01/23 Joanna Lin DO [address] [place] [address] Referring Physician Neurology 10/20/23 Vice President Of Development Relationship Specialty Start Date End Date Juancarlos Cuenca MD [address] [place] [phone] PCP - General Internal Medicine 10/01/23 Joanna Lin DO [address] [place] [address] Referring Physician Neurology 10/20/23 Vice President Of Development Relationship Specialty Start Date End Date Juancarlos Cuenca MD [address] [place] [address] PCP - General Internal Medicine 10/01/23 Joanna Lin DO [address] [id number] Referring Physician Neurology 10/20/23 Vice President Of Development Relationship Specialty Start Date End Date Juancarlos Cuenca MD [address] [place] [address] PCP - General Internal Medicine 10/01/23 Joanna Lin DO [address] [place] [address] Referring Physician Neurology 10/20/23 Vice President Of Development Relationship Specialty Start Date End Date Juancarlos Cuenca MD [address] [place] [phone] PCP - General Internal Medicine 10/01/23 Joanna Lin DO [address] [place] [address] Referring Physician Neurology 10/20/23 Vice President Of Development Relationship Specialty Start Date End Date Juancarlos Cuenca MD [address] [facility] [place] [address] PCP - General Internal Medicine 10/01/23 Joanna Lin DO [address] [place], [place] [id number] Referring Physician Neurology 10/20/23 Vice President Of Development Relationship Specialty Start Date End Date Juancarlos Cuenca MD [address] [place] [phone] PCP - General Internal Medicine 10/01/23 Joanna Lin DO [address] [place] [address] Referring Physician Neurology 10/20/23 Vice President Of Development Relationship Specialty Start Date End Date Juancarlos Cuenca MD [address] [place] [phone] PCP - General Internal Medicine 10/01/23 Joanna Lin DO [address] [place] [address] Referring Physician Neurology 10/20/23 Vice President Of Development Relationship Specialty Start Date End Date Juancarlos Cuenca MD [address] [place] [phone] PCP - General Internal Medicine 10/01/23 Joanna Lin DO [address] [place] [address] Referring Physician Neurology 10/20/23 Mary Kate Shine MD [address] [facility] [place] [address] Referring Physician Optometry 08/24/24 Goals (unrecognized section and content) Goals may [...] BE BASED ON THE PRIMARY CLINICAL RECORDS. [employer] provides no warranty or guarantee of the accuracy or completeness of information in this document.
[2024-08-27 11:06] LABS: Chol HDL Ratio 2.6; Cholesterol 110 mg/dL (<=200); HDL Cholesterol 42 mg/dL (40-60); Triglycerides 140 mg/dL (<=150)
== END 2024-08-27 10:22 | disposition home or self-care (01) ==
LOC: LAB 10:21
PROVIDERS: PCP Internal Medicine; Visit Provider Internal Medicine Interventional Cardiology
DX: E78.2 Mixed hyperlipidemia (principal)
CPT/HCPCS: 36415; 80061

== ENCOUNTER 2024-10-27 10:15 | Outpatient (OUT) | payer MEDICARE, SELFPAY ==
--- OUTSIDE RECORDS SUMMARY | 2024-10-27 10:27 | XMS_ITS | CCD ---
Author Organization [facility]ini[facility] Care Team Providers Care Pricing Lead Name Role Phone JUANCARLOS CUENCA Referring Unavailable JUANCARLOS CUENCA Primary Care Unavailable Delonte Webb Admitting Unavailable Delonte Webb Attending Unavailable JUANCARLOS CUENCA Referring Unavailable TY AVALOS Surgeon Unavailable TY AVALOS Admitting Unavailable JUANCARLOS CUENCA Primary Care Unavailable TY AVALOS Attending Unavailable [place] Procedure Practitioner Unavailab Juancarlos Delatorre DO Primary Care Provider Pedro Richardson Ahmed Unavailable [phone] Dylan VANESSA, Ahmed Unavailable JUANCARLOS CUENCA Primary Care Physician Juancarlos Cuenca Unavailable Juancarlos Cuenca DO Primary Care Provider Dylan VANESSA, Ahmed Unavailable [phone] JAY GONZALEZ Referring Unavailable JUANCARLOS CUENCA Primary [...] Consulting Unavailable HALKER ., MANAV Attending Unavailable BANG, DR VEGA Primary Care Unavailable HALEUGENIA ., MANAV Admitting Unavailable RANDY, DR GABY Patel Consulting Unavailable HALKER ., [...] Janki vailable LAMAS ., DR EVAN Mcleod Admbeau Unavailable LAMAS ., DR EVAN Mcleod Consulting [...] Primary Care Unavailable LAMAS ., DR EVAN cMleod Attending Unavailable LAMAS ., DR EVAN Mcleod Admitting Unavailable BALL, DR VEGA Primary Care Unavailable LAMAS ., DR EVAN Mcleod Attending Unavailable LAMAS ., DR EVAN Mcleod Consulting Unavailable BALL, DR VEGA Primary Care Unavailable BALL, DR VEGA Attending Unavailable BALL, DR VEGA Consulting Unavailable BALL, DR VEGA Admitting Unavailable ZIEBPREETI, DR GABY Patel Consulting Unavailable LAMAS ., DR EVAN Mcleod Admitting Unavailable LAMAS ., DR EVAN Mcleod Consulting Unavailable BANG, DR VEGA Primary Care Unavailable LAMAS ., DR EVAN Mcleod Attending Unavailable LELA HUGHES Consulting Unavailable NILL, Nya Patel Attending Unavailable NILL, Nya Patel Attending Unavailable NILL, Nya Patel Attending Unavailable JacobEstrellan Unavailable Mauro VANESSA, Hanh Chiang Attending Unavailable Mauro VANESSA, Hanh Chiang Attending Unavailable Mauro VANESSA, Hanh Chiang Attending Unavailable Juancarlos Cuenca Admitting Unavailable Bang, Juancarlos Attending Unavailable Juancarlos Cuenca Primary Care Unavailable Ej Anthony II Attending UnavailEj Santos II Admitting UnavailJuancarlos Post Primary Care Unavailable DO Juancarlos Cuenca Primary Care Provider [phone] MD Ej Anthony II Attending Provider [phone] PEDRO RICHARDSON Attending Unavailable Juancarlos Cuenca MD Primary Care Provider Joanna Lin DO Unavailable Mary Kate Shine MD Unavailable PHILLIP BINGHAM Attending Unavailable MATTHEW KEARNS Attending Unavailable MATTHEW KEARNS Attending Unavailable MATTHEW KEARNS Attending Unavailable PHILLIP BINGHAM Attending Unavailable JOANNA LIN Attending Unavailable PHILLIP BINGHAM Attending Unavailable PHILLIP BINGHAM Attending Unavailable JOANNA LIN Attending Unavailable Juancarlos Cuenca DO Primary Care Provider Pedro Richardson MD Ahmed Unavailable [phone] JAY GONZALEZ Attending Unavailable JAY GONZALEZ Referring Unavailable JUANCARLOS CUENCA Primary Care Unavailable Allergies Allergy Classification Reported Allergen(s) Allergy Type Date of Onset Reaction(s) Facility (20 sources) Morphine; Translations: [morphine] Drug Allergy Unknown [facility] Repository (1 source) Morphine Drug Allergy 12-08-2023 [facility] Repository Medications Current Medications Medication Drug Class(es) Dates Sig (Normalized) Sig (Original) Accu-Chek Guide - (20 sources) Accu-Chek Guide - USE TO TEST HOME BLOOD SUGAR ONCE DAILY for 90 Active amLODIPine 5 mg oral tablet (20 sources) Dihydropyridine Calcium Channel Ciera Start: 03-09-2024 take 1 tablet by mouth once daily Amlodipine 5 mg tablet Active 5 MG PO Daily 90 March 09, 2024 12:57pm please fill, patient lost medication Start: 09-11-2023 End: 03-09-2024 take 1 tablet by mouth once daily Amlodipine 5 mg tablet Discontinued 0 .ROUTE .COMPLEX March 03, 2024 6:28am March 09, 2024 12:59pm TAKE 1 TABLET BY MOUTH EVERY DAY FOR 30 DAYS Start: 09-07-2023 End: 09-11-2023 take 1 tablet by mouth once daily Amlodipine 5 mg tablet Discontinued 5 MG PO Daily September 07, 2023 12:00am September 11, 2023 7:01am Start: 05-17-2023 take 1 tablet by mansoor th every twenty-four hours amLODIPine Besylate 5 MG 1 tablet Orally Once a day Apr, Active ascorbic acid 500 mg oral capsule (12 sources) Vitamin C Start: 05-20-2024 Ascorbic Acid (Vitamin C) 500 mg capsule Active MG PO May 19, 2024 11:00pm Start: 04-14-2019 Vitamin C Oral , Daily, Refills(s) 0, Prophylaxis Start Date: 04/14/19 Status: Ordered ascorbic acid (V ITAMIN C ORAL) Take by mouth once daily. Active ascorbic acid (V ITAMIN C ORAL) Take by mouth once daily. 0 Active Comment on above: Take by mouth once d aily. aspirin 81 mg delayed release oral tablet (20 sources) Platelet Aggregation Inhibitor, Nonsteroidal Anti-inflammatory Drug Start: 09-07-2023 take 1 tablet by mouth once daily Aspirin 81 mg tablet,delayed release (DR/EC) Active 81 MG PO Daily September 07, 2023 12:00am aspirin 81 mg ca p Take by mouth once daily. Active Comment on above: Take by mouth once d aily. Aspirin 81 mg Tab-EC (1 source) Start: 03-14-2021 take 1 tablet by mouth once daily Aspirin 81 mg Tab-EC 81 mg = 1 tab(s), Oral, Daily, Blood Thinner Start Date: 03/14/21 Status: Ordered baclofen 10 mg oral tablet (18 sources) gamma-Aminobutyri c Acid-ergic Agonist Start: 09-16-2023 End: 09-14-2024 take 1 tablet by mouth once daily at bedtime as needed for muscle spasms Baclofen 10 mg tablet Active 10 MG PO Daily at bedtime as needed for muscle spasm 90 90 September 14, 2024 11:51am calcium acetate (1 source) Start: 04-14-2019 calcium acetate Oral, TID, Refills(s) 0, Prophylaxis Start Date: 04/14/19 Status: Ordered calcium carbonate 1500 mg oral tablet (1 source) Start: 05-20-2024 take 1 tablet by mouth once daily Calcium Carbonate 600 mg calcium (1,500 mg) tablet Active 600 MG PO Daily May 19, 2024 11:00pm carvedilol 12.5 mg oral tablet (20 sources) alpha-Adrenergic Ciera, beta-Adrenergic Ciera Start: 05-20-2024 take 1 tablet by mouth twice daily Carvedilol 6.25 mg tablet Active 6.25 MG PO Twice daily May 19, 2024 11:00pm Start: 10-12-2023 End: 05-20-2024 Carvedilol 12.5 mg tablet Ac tive 12.5 MG .ROUTE .COMPLEX May 20, 2024 9:56am 12.5 mg ; Start: 09-07-2023 End: 10-12-2023 take 1 tablet by mouth twice daily Carvedilol 12.5 mg tablet Discontinued 12.5 MG PO Twice daily September 07, 2023 12:00am October 12, 2023 4:18pm Start: 10-01-2021 take 1 tablet entera l route every twelve hours carvedilol (COREG) 12.5 mg tablet 1 tablet by ORAL/FEEDING TUBE route q 12 HR. 60 tablet 10/01/2021 Active Start: 10-01-2021 End: 10-31-2021 take 1 tablet by mouth every twelve hours carvedilol (COREG) 12.5 mg tablet 1 tablet by ORAL/FEEDING TUBE route q 12 HR. 60 tablet 0 10/01/2021 Active Start: 03-11-2021 End: 06-07-2024 take 1 mg by mouth twice daily carvedilol 25 mg Tab mg tab(s), Oral, BID, Refills(s) 0, High blood pressure Start Date: 03/11/21 Status: Ordered End: 10-16-2022 take 1 tablet by mouth once daily carvedilol (COREG) 12.5 mg tablet Take 12.5 mg by mouth once daily. 0 10/16/2022 Discontinued Comment on above: 1 tablet by ORAL/FEE DING TUBE route q 12 HR. Take 12.5 mg by mout h once daily. cholecalciferol 0.05 mg oral capsule (15 sources) Vitamin D Start: 024 take 1 capsule by mouth once daily Cholecalciferol (Vitamin D3) 50 mcg (2,000 unit) capsule Active 50 MCG PO Daily May 19, 2024 11:00pm CHOLECALCIFEROL, VITAMIN D3, ORAL (10 sources) CHOLECALCIFEROL, VITAMIN D3, ORAL Take by mouth once daily. Active CHOLECALCIFEROL, VITAMIN D3, ORAL Take by mouth once daily. 0 Active Comment on above: Take by mouth once d aily. CPAP (10 sources) CPAP daily at be dtime. Active CPAP daily at be dtime. 0 Active Comment on above: daily at bedtime. Cranberry preparation (1 source) Non-Standardized Food Allergenic Extract, Non-Standardized Plant Allergenic Extract Start: 04-14-20 19 cranberry Oral, Daily, Refill(s) 0, Prophylaxis Start Date: 04/14/19 Status: Ordered diclofenac sodium 0.01 mg/mg topical gel (2 sources) Nonsteroidal Anti-inflammatory Drug Start: 04-21-20 apply 2 g topically once as needed for pain Diclofenac Sodium 1 % gel Active 2 GM TOPICAL as directed as needed for knee pain 08 18April 20, 2024 11:00pm up to 4x's a day Start: 04-21-2024 apply 2 g topically once Diclo fenac Sodium Active 2 GM TOPICAL as directed 08 18April 21, 2024 12:00am up to 4x's a day docosahexaenoic acid/epa (FI SH OIL ORAL) (10 sources) docosahexaenoic acid/epa (FISH OIL ORAL) Take by mouth once daily. Active docosahexaenoic acid/epa (FISH OIL ORAL) Take by mouth once daily. 0 Active Comment on above: Take by mouth once d aily. empagliflozin 10 mg oral tablet (2 sources) [...] Contrast as designated per enteric contrast guidelines Fish Oils (1 source) Start: 04-14-20 Fish Oil Oral, Daily, Refill(s) 0, Prophylaxis Start Date: 04/14/19 Status: Ordered glipiZIDE 5 mg oral tablet (20 sources) Sulfonylurea Start: 06-16-20 take 2 tablets by mouth once daily Glipizide 5 mg tablet Active 0 .ROUTE .COMPLEX 180 June 16, 2024 7:37pm TAKE 2 TABLETS BY MOUTH DAILY Start: 05-25-2024 End: 06-16-2024 take 2 tablets by mouth once daily Glipizide 5 mg tablet Discontinued 10 MG PO Daily 60 30 May 25, 2024 3:52pm June 16, 2024 7:37pm Start: 12-07-2023 End: 05-25-2024 take 2 tablets by mouth at breakfast, then take 1 tablet by mouth at dinner Glipizide 5 mg tablet Discontinued 0 .ROUTE .COMPLEX 270 December 07, 2023 12:05pm May 25, 2024 3:52pm TAKE 2 TABLETS BY MOUTH 30 MINUTES PRIOR TO BREAKFAST AND 1 TABLET 30 MINUTES PRIOR TO EVENING MEAL Start: 11-17-2023 End: 12-08-2023 take 2 tablets by mouth twice daily Glipizide Discontinued 5 MG PO Twice daily November 17, 2023 4:17pm December 08, 2023 1:45pm Take 2 tabs po BID Start: 11-17-2023 End: 12-07-2023 take 2 tablets by mouth twice daily Glipizide 5 mg tablet Discontinued 5 MG PO Twice daily November 16, 2023 11:00pm December 07, 2023 12:05pm Take 2 tabs po BID Start: 11-04-2023 End: 12-08-2023 take 2 tablets by mouth twice daily Glipizide 10 mg tablet Discontinued 5 MG PO Twice daily November 17, 2023 3:17pm December 08, 2023 12:45pm Take 2 tabs po BID Start: 11-04-2023 End: 11-17-2023 take 20 mg by mouth twice daily Glipizide Discontinued 20 MG PO Twice daily November 04, 2023 10:53am November 17, 2023 4:20pm Start: 09-16-2023 End: 10-12-2023 Glipizide 10 mg tablet Disco ntinued 10 MG PO .morning September 16, 2023 11:53am October 12, 2023 9:14am Start: 09-16-2023 End: 09-16-2023 take 2 tablets by mouth once daily Glipizide 5 mg tablet Discontinued 10 MG PO Daily September 16, 2023 12:00am September 16, 2023 11:51am Start: 09-16-2023 End: 09-16-2023 take 10 mg by mouth once daily Glipizide Discontinued 10 MG PO Daily September 16, 2023 1:00am September 16, 2023 12:51pm Start: 09-07-2023 End: 11-04-2023 take 1 tablet by mouth twice daily Glipizide 10 mg tablet Discontinued 10 MG PO Twice daily October 12, 2023 9:13am November 04, 2023 9:56am Start: 09-07-2023 End: 09-16-2023 take 1 tablet [...] days May, Active Start: 03-11-2021 End: 10-12-2023 glipiZIDE (GLUCOTROL) 5 mg t ablet once daily. 03/11/2021 Active glipiZIDE 5 MG T hero [...] tablet by mouth every other day Hydrochlorothiazide 25 mg tablet Active 0 .ROUTE .COMPLEX December 23, 2023 9:12am TAKE 1 TABLET BY MOUTH EVERY OTHER DAY Start: 10-12-2023 End: 12-23-2023 take 1 tablet by mouth once daily Hydrochlorothiazide 25 mg tablet Discontinued 0 .ROUTE .COMPLEX October 12, 2023 4:17pm December 23, 2023 9:13am TAKE 1 TABLET BY MOUTH EVERY DAY Start: 09-07-2023 End: 10-12-2023 take 1 tablet by mouth once daily Hydrochlorothiazide 25 mg tablet Discontinued 25 MG PO Daily September 07, 2023 12:00am October 12, 2023 4:18pm Start: 04-14-2019 hydrochlorothi azide Oral, Daily, Refills(s) [...] 1 tablet by mouth once daily Lisinopril 30 mg tablet Active 0 .ROUTE .COMPLEX March 18, 2024 5:47am TAKE 1 TABLET BY MOUTH EVERY DAY Start: 09-07-2023 End: 03-18-2024 take 1 tablet by mouth once daily Lisinopril 30 mg tablet Discontinued 30 MG PO Daily September 07, 2023 12:00am March 18, 2024 5:47am Start: 04-14-2019 lisinopril Ora l, Daily, Refills(s) [...] 5 mg by mouth o nce daily. Magnesium (10 sources) MAGNESIUM ORAL T hero by mouth once daily. Active MAGNESIUM ORAL T hero by mouth once daily. 0 Active Comment on above: Take by mouth once d aily. Magnesium Hydroxide (1 source) Start: 05-20-2024 Magnesium Hydroxide 600 mg tablet,chewable Active MG PO May 19, 2024 11:00pm MULTI-VITAMIN ORAL (10 sources) MULTI-VITAMIN OR AL Take by mouth once daily. Active MULTI-VITAMIN OR AL Take by mouth once daily. 0 Active Comment on above: Take by mouth once d aily. Multivitamin tablet (1 source) Start: 05-20-20 take 1 tablet by mouth once daily Multivitamin tablet Active 1 TAB PO Daily May 19, 2024 11:00pm [place] 0-Lzw-Ciq-Fish Oil (Fish Oil) 60-90-500 mg capsule (1 source) Start: 05-20-20 take 1 capsule by mouth once daily [place] 5-Pjm-Szd-Fish Oil (Fish Oil) 60-90-500 mg capsule Active 1 CAP PO Daily May 19, 2024 11:00pm oxyCODONE hydrochloride 5 mg oral tablet (14 sources) Opioid Agonist take 1 tablet by mouth every six hours as needed oxyCODONE (Roxicodone) 5 MG immediate release tablet Take 1 tablet by mouth every 6 (six) hours if needed Active pantoprazole 40 mg delayed release oral tablet (20 sources) Proton Pump Inhibitor Start: 01-04-20 24 take 1 tablet by mouth once daily at breakfast Pantoprazole 40 mg tablet,delayed release (DR/EC) Active 0 .ROUTE .COMPLEX 90 January 04, 2024 11:45am TAKE 1 TABLET BY MOUTH DAILY ON EMPTY STOMACH FOLLOWED IN 30 MINUTES BY BREAKFAST Start: 09-07-2023 End: 01-04-2024 take 1 tablet by mouth once daily at breakfast Pantoprazole 40 mg tablet,delayed release (DR/EC) Discontinued 40 MG PO Daily September 07, 2023 12:00am January 04, 2024 11:45am TAKE 1 TABLET BY MOUTH DAILY ON EMPTY STOMACH FOLLOWED IN 30 MINUTES BY BREAKFAST Start: 04-14-2019 take 40 mg by mouth once daily pantoprazole 40 mg, Oral, Daily, Refills(s) 0, Control of stomach acid Start Date: 04/14/19 Status: Ordered Comment on above: Take 40 mg by mouth once daily. Prednisolon-Moxiflox -Bromfenac 1-0.5-0.075 % solution (1 source) Start: 08-24-2024 Prednisolon-Moxiflo x-Bromfenac 1-0.5-0.075 % solution Indications: Age-related nuclear cataract of right eye Administer 1 drop into affected eye(s) in the morning and 1 drop at noon and 1 drop in the evening and 1 drop before bedtime. 10 mL 1 08/24/2024 Active sertraline 100 mg oral tablet (17 sources) Serotonin Reuptake Inhibitor Start: 09-02-2021 take 1 tablet by mouth once daily at bedtime sertraline (ZOLOFT) 100 mg tablet TAKE 1 TABLET BY MOUTH EVERYDAY AT BEDTIME 09/02/2021 Active Sertraline HCl 1 00 MG TAKE 1 TABLET DAILY AT BEDTIME Active Sertraline HCl 1 00 MG TAKE 1 TABLET DAILY AT BEDTIME for 90 Active Comment on above: TAKE 1 TABLET BY MANSOOR EVERYDAY AT BEDTIME Super B Complex (1 source) Start: 04-14-20 Super B Complex Oral, Daily, Refill(s) 0, Prophylaxis Start Date: 04/14/19 Status: Ordered tamsulosin hydrochloride 0.4 mg oral capsule (16 sources) alpha-Adrenergic Ciera Start: 10-02-19 End: 06-07-20 24 take 1 capsule by mouth once daily tamsulosin (FLOMAX) 0.4 mg Take 1 capsule by mouth once daily. 30 capsule 10/01/2021 Active Comment on above: Take 1 capsule by mo [facility] once daily. traMADol hydrochloride 50 mg oral tablet (4 sources) Opioid Agonist Start: 09-16-19 Tramadol 50 mg tablet Active 50 MG PO As Directed as needed September 16, 2023 12:00am triamcinolone acetonide 0.001 mg/mg topical ointment (14 sources) Corticosteroid triamcinolone (Kenalog) 0.1 % ointment Apply topically 2 (two) times a day Active Vitamin B Complex (10 sources) vitamin B comple x (B COMPLEX 1 ORAL) Take by mouth once daily. Active vitamin B comple x (B COMPLEX 1 ORAL) Take by mouth once daily. 0 Active Comment on above: Take by mouth once d aily. Vitamin B Complex tablet (1 source) Start: 05-20-2024 take 1 tablet by mouth once daily Vitamin B Complex tablet Active 1 TAB PO Daily May 19, 2024 11:00pm Vitamin D3 (1 source) Start: 04-14-2019 Vitamin D3 Oral, Daily, Refills(s) 0, Prophylaxis Start Date: 04/14/19 Status: Ordered Zinc (11 sources) Start: 04-14-2019 Zinc Oral, Daily, Refills(s) 0, Prophylaxis Start Date: 04/14/19 Status: Ordered ZINC ORAL Take b y mouth once daily. Active ZINC ORAL Take b y mouth once daily. 0 Active Comment on above: Take by mouth once d aily. zinc gluconate 30 mg oral tablet (1 source) Start: 05-20-2024 take 1 tablet by mouth once daily Zinc Gluconate 30 mg tablet Active 30 MG PO Daily May 19, 2024 11:00pm Completed/Discontinued Medications Medication Drug Class(es) Dates Sig (Normalized) Sig (Original) atorvastatin 80 mg oral tablet (20 sources) HMG-CoA Reductase Inhibitor Start: 10-20-2023 End: 11-04-2023 take 1 tablet by mouth once daily in the evening Atorvastatin 80 mg tablet Discontinued 0 .ROUTE .COMPLEX 90 October 20, 2023 12:01pm November 04, 2023 9:51am TAKE 1 TABLET BY MOUTH EVERY DAY IN THE EVENING Start: 04-14-2019 End: 10-20-2023 take 1 tablet by mouth once daily in the evening Atorvastatin 80 mg tablet Discontinued 80 MG PO Every evening September 07, 2023 12:00am October 20, 2023 12:01pm Comment on above: Take 80 mg by mouth once daily. clopidogrel 75 mg oral tablet (20 sources) [id number] Platelet Inhibitor Start: 9 End: 4 take 1 tablet by mouth once daily Clopidogrel 75 mg tablet Discontinued 75 MG PO Daily September 07, 2023 12:00am January 23, 2024 2:12pm Comment on above: Take 75 mg by mouth once daily. escitalopram 5 mg oral tablet (5 sources) Serotonin Reuptake Inhibitor Start: 4 End: 4 take 1 tablet by mouth once daily Escitalopram Oxalate 5 mg tablet Discontinued 0 .ROUTE .COMPLEX 90 March 31, 2024 5:11pm April 22, 2024 8:47am TAKE 1 TABLET BY MOUTH EVERY DAY Start: 03-09-2024 End: 03-31-2024 take 1 tablet by mouth once daily Escitalopram Oxalate 5 mg tablet Discontinued 5 MG PO Daily March 08, 2024 11:00pm March 31, 2024 5:11pm Start: 03-11-2021 take 1 mg by mouth once daily escitalopram 10 mg Tab mg tab(s), Oral, Daily, Refills(s) 0, Depression Start Date: 03/11/21 Status: Ordered gabapentin 100 mg oral capsule (20 sources) Anti-epileptic Agent Start: 09-07-2023 End: 06-07-2024 take 1 capsule by mouth once daily Gabapentin 100 mg capsule Discontinued 100 MG PO Daily September 07, 2023 12:00am November 04, 2023 9:53am loratadine 10 mg oral tablet (20 sources) Start: 04-14-2019 Claritin Oral, Daily, Refills(s) 0, Allergy symptoms Start Date: 04/14/19 Status: Ordered Start: 02-02-2017 End: 11-04-2023 loratadine (CLARITIN) 10 mg tablet Take 10 mg by mouth. 02/02/2017 Active Comment on above: Take 10 mg by mouth. meclizine hydrochloride 25 mg oral tablet (20 sources) Antiemetic Start: 4 End: 4 take 1 tablet by mouth every twelve hours as needed Meclizine 25 mg tablet Discontinued 25 MG PO Every 12 hours as needed September 16, 2023 11:16am November 04, 2023 9:54am take 1 tablet by mansoor th every twelve hours Meclizine HCl 25 MG 1 tablet as needed Orally every 12 hrs Active metFORMIN hydrochloride 100 mg/ml oral solution (20 sources) Biguanide Start: 09-07-2023 End: 09-16-2023 take 1 tablet by mouth twice daily Metformin 500 mg/5 mL solution Discontinued 500 MG PO Twice daily September 07, 2023 12:00am September 16, 2023 11:15am Take 1 tablet with a meal orally [...] TO SURGERY 06/07/2024 Discontinued (Med list cleanup) neomycin sulfate 500 mg oral tablet (9 sources) Aminoglycoside Antibacterial End: 06-07-2024 neomycin (Mycifradin) 500 MG tablet TAKE 2 TABS BY MOUTH AT 6PM,AGAIN AT 7PM,AND 11PM THE EVENING PRIOR TO SURGERY DIRECTED 06/07/2024 Discontinued (Med list cleanup) ondansetron 4 mg disintegrating oral tablet (20 sources) Serotonin-3 Receptor Antagonist Start: 09-07-2023 End: 11-04-2023 Ondansetron 4 mg tablet,disintegrating Discontinued 4 MG TRANSLINGU Daily as needed September 16, 2023 11:16am November 04, 2023 9:55am take 1 tablet by mansoor th every twenty-four hours Ondansetron 4 MG 1 tablet on the tongue and allow to dissolve Orally Once a day Active Problems Active Problems Problem Classification Problem Date Documented Date Episodic/Chronic Abdominal hernia (6 sources) Ventral incisional hernia; Translations: [Incisional hernia without obstruction or gangrene] Onset: 10-11-2022 Episodic Acute posthemorrhagic anemia (20 sources) Acute posthemorrhagic anemia; Translations: [Acute posthemorrhagic anemia] Onset: 02-22-2022 Episodic Anxiety disorders (20 sources) Anxiety; Translations: [Generalized anxiety disorder] 03-11-2021 Chronic Biliary tract disease (3 sources) Cholangiectasis; Translations: [Other specified diseases of [...] Coronary arteriosclerosis; Translations: [Atherosclerotic heart disease of [place] coronary artery without angina pectoris] Onset: 05-19-2022 09-13-2021 Chronic Comment on above: Echo: LVEF 70%, JOAN, normal RV size/function, RVSP 04/2024 Diabetes mellitus with complications (20 sources) Hyperglycemia [...] PATH FX] Onset: 11-15-2022 Chronic Other aftercare (10 sources) 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; 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] 09-13-2021 Episodic Comment on above: PSA: 0.27 - 09/2023 Other aftercare (1 source) Long-term current use of drug therapy; Translations: [penitentiary (current) use of antithrombotics/antip latelets] 09-13-2021 Episodic [...] Benign neoplasm of colon, unspecified Episodic Other liver diseases (3 sources) Elevated liver enzymes level; Translations: [Abnormal [...] Onset: 11-28-2022 Episodic Other non-traumatic joint disorders (8 sources) Pain in left knee; Translations: [Left knee pain] Onset: 03-30-2022 Episodic Other nutritional; endocrine; and metabolic disorders (20 sources) Body mass index 30+ - obesity; Translations: [Obesity, unspecified] 09-13-2021 Chronic Other nutritional; endocrine; and metabolic disorders (10 sources) Obese class II; Translations: [Obesity, unspecified] [...] Chronic Other nutritional; endocrine; and metabolic disorders (3 sources) Obesity; Translations: [Obesity, unspecified] 10-01-2023 Chronic [...] and visceral atherosclerosis (17 sources) Atherosclerosis 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, right leg; Translations: [Atherosclerosis of [place] artery of right lower extremity with rest pain] Chronic Residual codes; unclassified (11 sources) Sleep apnea; Translations: [Sleep apnea, unspecified] 09-13-2021 Chronic Residual codes; unclassified (20 sources) Obstructive sleep apnea syndrome; Translations: [Obstructive sleep apnea (adult) (pediatric)] 09-07-2023 Chronic Residual codes; unclassified (9 sources) Obstructive sleep apnea (adult) (pediatric); Translations: [Obstructive sleep apnea (adult)(pediatric)] Chronic Residual codes; unclassified (20 sources) History of colectomy; Translations: [Acquired absence of other specified parts of digestive tract] Episodic Residual codes; unclassified (2 sources) Not getting enough sleep; Translations: [Insomnia, unspecified] 06-07-2024 Episodic Residual codes; unclassified (1 source) History of hernia repair; Translations: [Other specified postprocedural states] 10-20-2024 Episodic Screening and history of mental health and substance abuse codes (1 source) Ex-smoker 04-14-2019 Episodic Spondylosis; intervertebral disc disorders; other back problems (20 sources) Lumbar spondylosis; Translations: [Lumbosacral spondylosis with radiculopathy] Onset: 03-12-2022 03-11-2021 Chronic Spondylosis; intervertebral disc disorders; other back problems (1 source) Spinal stenosis; Translations: [Spinal stenosis, site unspecified] 05-20-2024 Episodic Comment on above: MRI 05/2024 Substance-related disorders (1 source) Smoker 04-14-2019 Chronic [...] Other Problems Problem Classification Problem Date Documented Date Episodic/Chronic Esophageal disorders (10 sources) Esophageal disorders; Translations: [Gastroesophageal reflux disease with esophagitis without hemorrhage] Other aftercare (3 sources) Other manager terminal (current) drug therapy; Translations: [[employer] OFFICER CURRENT DRUG THERAPY] Onset: 3 Episodic Other and unspecified benign neoplasm (13 sources) Polyp of colon; Translations: [Polyp of colon] Onset: 1 06-07-2021 Episodic Other and unspecified benign neoplasm (5 sources) Familial multiple polyposis syndrome; Translations: [Familial multiple polyposis syndrome] Onset: 2 Resolved: 2 09-07-2023 Episodic Comment on above: s/p hemicolectomyCon tinue surveillance colonoscopy, last scope 2022 (repeat 3 years) Other connective tissue disease (2 sources) Pain of toes of bilateral feet; Translations: [Pain in right toe(s)] 03-20-2024 Episodic Unclassified (1 source) LOW BACK PAIN, UNSPECIFIED; Translations: [LOW BACK PAIN, UNSPECIFIED] Onset: 2 Results Test Name Value Interpretation Reference Range Facility CNOV 10-20-2024 CNOV Office Visit ([facility] ) LIZZY YEE ([id number]) 1945 M Date Time Provider Department 10/20/24 1:40 PM JAY GONZALEZ [facility] During your visit today, we recorded the following information about you: Temperature Pulse Blood pressure 97 degrees 60/minute 143/78 Jay Gonzalez MD 10/20/2024 2:04 PM Signed [facility] Abdominal Core Health - Follow Up Visit Assessment/Plan: Lizzy Yee is a 78 year old male with a history of HTN, HLD, CAD, BPM, Anxiety, Obesity, BHUPENDRA, and colonic polyposis syndrome s/p subtotal colectomy with concomitant abdominal wall reconstruction with Dr. Medina on 09/24/2021. He was last seen 10/15/2023 for his 2 year follow up and was doing well. His abdominal exam was stable. I was able to feel the 3-4 cm subxiphoid fascial separation with no eventration or bulging with valsalva. He was agreeable with having CT imaging to assess this area which took place 10/19/2023. He had also gained some weight when we last spoke and we discussed the importance of working on this. He presents today for a one year follow up, 3 years out from surgery. Cait is doing great with no evidence of hernia recurrence on exam, no abdominal pain, and no limitation in activity as it relates to his abdominal wall. Will continue with yearly surveillance. -Follow-up in 1 year (4 years post op) Subjective: Limited exercise due to back pain. He has had some difficulty with his weight and can't manage to lose any. He was briefly on Ozempic but this didn't work well to control his DM. No pain in his abdominal wall and no limitation in activity from his abdomen, just his knee and abdomen. Objective: AAOx3, NAD Non-labored respirations on RA Abdomen soft, obese, non-tender, and non-distended. Well-healed midline scar. No bulge on exam. Jay Gonzalez MD 10/20/24, 2:03 PM General Surgery [facility] Medical Decision Making: Problems: Low: Stable chronic illness Risk: Minimal: Minimal risk from testing/treatment Medical Decision Making Level: 2 - Straightforward Referring Provider: JAY GONZALEZ [[id number]] Allergies As of Date: 10/20/2024 (No Known Allergies) Date Reviewed: 10/20/2024 Reviewed by: Destiny Zapata OCCA - Fully Assessed Reason for Visit: Follow Up [171] Cmt: 3 yr Primary Visit Diagnosis:S/P repair of ventral hernia [Z98.890, Z87.19] Prescriptions as of 10/20/2024 - tramadol HCl (TRAMADOL ORAL) Take 50 mg by mouth. - carvedilol (COREG) 12.5 mg tablet 1 [...] once daily. Problem List As Of Date 10/20/2024 Noted Resolved Polyp of colon [K63.5] 06/07/2021 ASHD (arteriosclerotic heart disease) [I25.10] Sleep apnea [G47.30] HTN (hypertension) [I10] HLD (hyperlipidemia) [E78.5] Type 2 diabetes mellitus, without long-term cur* Antiplatelet or antithrombotic long-term use [Z* Obesity (BMI 30-39.9) [E66.9] Polyposis coli [D13.91] 09/24/2021 09/30/2021 Obesity, Class II, BMI 35-39.9 [E66.812] 09/25/2021 Morbid obesity (HCC) [E66.01] 10/15/2023 Encounter Status:Closed by JAY GONZALEZ on 10/20/24 Normal [facility] Cholesterol in LDL Calc [Mas s/Vol]on 08-27-2024 Cholesterol in LDL [Mass/Vol] Cholesterol in LDL [Mass/volume] in Serum or Plasma by calculation [facility] Comment on above: <100 mg/dl [id number] 0-129 mg/dl NEAR OR ABOVE [id number] mg/dl BORDERLINE [id number] mg/dl HIGH>190 mg/dl VERY HIGH Cholesterol in VLDL Calc [Ma ss/Vol]on 08-27-2024 Cholesterol in VLDL [Mass/Vol] Cholesterol in VLDL [Mass/volume] in Serum or Plasma by calculation [facility] - Chemistry and C hemistry - challengeon 08-27-2024 Cholesterol [Mass/Vol] 110 mg/dL <=200 [facility] Cholesterol in HDL [Mass/Vol] 42 mg/dL 40-60 [facility] Comment on above: > or =60 mg/dl - LOW CARDIOVASCULAR RISK<40 mg/dl - HIGH CARDIOVASCULAR RISK Triglyceride [Mass/Vol] 140 mg/dL <=150 [facility] Serum or plasma total choles terol/high density lipoprotein (HDL) cholesterol mass venu 08-27-2024 Cholesterol.total/Cho lesterol in HDL [Mass ratio] Serum or plasma total cholesterol/high density lipoprotein (HDL) cholesterol mass rat [facility] Comment on above: 3.3 - 4.4 LOW RISK4. 4 - 7.1 AVERAGE RISK7.1 - 11.0 MODERATE RISK>11.0 HIGH RISK US Eye+Orbit - bilateralon 0 08-24-2024 Diagnosis: Cataract both eyes (OU) Testing Indication: Performed for preop measurements in the determination of an intraocular lens (IOL) for both eyes (OU) Test Reliability: Good quality both eyes (OU) Interpretation: Good measurements for intraocular lens (IOL) calculation purposes. Calculation made for both eyes (OU). [facility] Study observation (narrative) [facility] 36on 05-13-2024 36 Patients Daughter called back and confirms he has NOT been taking the Atorvastatin and has not had a prescription, advised the daughter we would send in a new prescription and recheck his cholesterol in 3 month, Lab order mailed to patient to complete end of June/ july [facility] 36on 05-12-2024 36 Patient calling for echo and lab results. They are scanned into his comedian. Please advise. Thanks. [facility] Office Visiton 05-04-2024 Follow-up visit [id number] Vu Yee Jorge 1945 M Date Provider Department Center 05/04/2024 [facility] Family History Problem Relation Age of Onset Coronary artery disease Mother Coronary artery disease Brother Family Status - Relation Status Age at Mother Brother Level of Service:45996 [place] OFFICE/OUTPATIENT ESTABLISHED MOD MDM 30 MIN Normal [facility] XR knee LT 4V*on 04-21-2024 XR knee LT 4V* [facility] [address] [place] [address] XRay Report Signed Patient: Lizzy Yee MR#: [id number] [id number] : 1945 Acct:[id number] Age/Sex: 78 / M ADM Date: 04/21/24 Loc: [facility] Room: Type[facility] Attending Dr: Ej Anthony II, MD Copies to: Ej Anthony MD Ordering Provider: Ej Anthony MD Date of Service: 04/21/24 XR/XR pelvis 1-2V: M25.562 - Pain in left knee ([id number]) XR/XR knee LT 4V*: M25.562 - Pain [...] Jimenez Jr., D.O.04/21/2024 2:51 PM Dictation Location: [facility] Transcribed By: [facility] 04/21/24 1451 Dictated By: Jus Jimenez Jr, DO 04/21/24 1449 Signed By: 04/21/24 1451 Rajani [facility] Keyshawn 10-27-2023 ANISHA Telephone ([facility]) LIZZY YEE ([id number]) 1945 M Date Time Provider Department 10/27/23 JAY GONZALEZ During your visit today, we recorded the [...] Patient and or can be reached at [phone]. Thank you. Efrain Loza, RN 10/28/2023 8:30 [...] Encounter Status:Closed by EFRAIN ZAMARRIPA on 10/28/23 Normal [facility] Cholesterol in LDL Calc [Mas s/Vol]on 10-09-2023 Cholesterol in LDL [Mass/Vol] 46.6 mg/dL [facility] Comment on above: <100 mg/dl ASLLPYL25 0-129 mg/dl NEAR OR ABOVE [id number] mg/dl BORDERLINE [id number] mg/dl HIGH>190 mg/dl VERY HIGH Cholesterol in VLDL Calc [Ma ss/Vol]on 10-09-2023 Cholesterol in VLDL [Mass/Vol] 14.4 mg/dL [facility] Estimated glomerular filtrat ion rate (GFR) non- Americanon 10-09-2023 GFR/1.73 sq M.predicted among non-blacks MDRD (S/P/Bld) [Vol rate/Area] 54 mL/min/{1.73_m2} >=60 [facility] Globulin Calc (S) [Mass/Vol] on 10-09-2023 Globulin (S) [Mass/Vol] 3.9 g/dL [facility] Glucose mean value [Mass/vol ume] in Blood Estimated from glycated hemoglobinon 10-09-2023 Average glucose Estimated from glycated hemoglobin (Bld) [Mass/Vol] 186 mg/dL [facility] - Chemistry and C hemistry - challengeon 10-09-2023 Albumin [Mass/Vol] 3.4 g/dL 3.4-5.0 [facility] ALP [Catalytic activity/Vol] 210 U/L 46-116 [facility] ALT [Catalytic activity/Vol] 236 U/L 16-63 [facility] AST [Catalytic activity/Vol] 169 U/L 15-37 [facility] Bilirubin [Mass/Vol] 0.8 mg/dL 0.2-1.0 [facility] Calcium [Mass/Vol] 9.1 mg/dL 8.5-10.1 [facility] Chloride [Moles/Vol] 101 mmol/L 98-107 [facility] Cholesterol [Mass/Vol] 107 mg/dL <=200 [facility] Cholesterol in HDL [Mass/Vol] 46 mg/dL 40-60 [facility] Comment on above: > or =60 mg/dl - LOW CARDIOVASCULAR RISK<40 mg/dl - HIGH CARDIOVASCULAR RISK CO2 [Moles/Vol] 28.4 mmol/L 21.0-32.0 [facility] Creatinine [Mass/Vol] 1.29 mg/dL 0.70-1.30 [facility] GFR/1.73 sq M.predicted MDRD (S/P/Bld) [Vol rate/Area] mL/min/{1.73_m2} >=60 [facility] Glucose [Mass/Vol] 100 mg/dL 74-106 [facility] Potassium [Moles/Vol] 4.1 mmol/L 3.5-5.1 [facility] Protein [Mass/Vol] 7.3 g/dL 6.4-8.2 [facility] Sodium [Moles/Vol] 140 mmol/L 136-145 [facility] Triglyceride [Mass/Vol] 72 mg/dL <=150 [facility] Urea nitrogen [Mass/Vol] 23.0 mg/dL 7.0-18.0 [facility] Urea nitrogen/Creatinine [Mass ratio] 17.8 mg/mg [facility] - Hematology and Cell countson 10-09-2023 HbA1c (Bld) [Mass fraction] 8.1 % 4.5-6.2 [facility] Comment on above: ADA RECOMMENDED LIMI T 4.0 - 6.0ADA THERAPEUTIC TARGET < 7.0ACTION SUGGESTED> 7.0 Microalbumin [Mass/volume] i n Urineon 10-09-2023 Albumin DL <= 20 mg/L (U) [Mass/Vol] mg/dL <=30.0 [facility] No Panel Informationon 10-08 Prostate Specific Antigen Screen 0.27 ng/mL <=4.00 [facility] Serum or plasma albumin/glob ulin mass ratioon 10-09-2023 Albumin/Globulin [Mass ratio] 0.9 {ratio} [facility] Serum or plasma anion gap de terminationon 10-09-2023 Anion gap [Moles/Vol] 14.7 mmol/L [facility] Serum or plasma total choles terol/high density lipoprotein (HDL) cholesterol mass venu 10-09-2023 Cholesterol.total/Cho lesterol in HDL [Mass ratio] 2.3 {ratio} [facility] Comment on above: 3.3 - 4.4 LOW RISK4. 4 - 7.1 AVERAGE RISK7.1 - 11.0 MODERATE RISK>11.0 HIGH RISK Outside Colonoscopyon 2022 Outside Colonoscopy [id number] 0CD:127 Normal [facility] Reminderson 12-18-2022 Reminders - From: Amy Menon LPN To: GSN - Clinical; Sent: 12/18/2022 12:06:16 EDT Show up: 11/16/2025 07:00:00 EDT Subject: colonoscopy recall Due Date/Time: 12/17/2025 07:00:00 EDT Reminder/Recall Patient due for surveillance colonoscopy 12/17/2025. Normal [facility] POINT OF CARE GLUCOSEon 11-19 Glucose [Mass/Vol] 176 mg/dL Critically high 74-106 [facility] Comment on above: Performed By: #### P OCGLUC #### [facility] [address] [place], [place] [address] Dr. Rojelio Kingsley POINT OF CARE GLUCOSEon 11-19 Glucose [Mass/Vol] 157 mg/dL Critically high 74-106 [facility] Comment on above: Performed By: #### P OCGLUC #### [facility] [id number] Rojelio Kingsley Consent for Procedure/Surger yon 12-03-2022 Consent for Procedure/Surgery [id number] 0CD:127 Normal [facility] Physician Referralon 023 Physician Referral [id number] 0CD:127 Normal [facility] General Surgery Office/Clini c Noteon [...] anastomosis and ventral hernia repair 09/2021 at [facility], they recommend yearly surveillance sigmoidoscopies; [...] 1 tab(s), (more content not included)... Normal [facility] Comment on above: Result Comment: Elec tronically Signed By: PELON VANESSA, Nya Nicholson\Date and Time Signed: 12/02/22 11:37 EDT POINT OF CARE GLUCOSEon 04-2 Glucose [Mass/Vol] 121 mg/dL Critically high 74-106 T [facility] Comment on above: Performed By: #### P OCGLUC #### [facility] [address] [address] [address] Rojelio Kingsley ALLIED HEALTHon 10-11-2022 ALLIED HEALTH HNO ID: [id number] Author: Glenda Romo RT(R) Service: Radiology Author [...] Romo RT(R) October 11, 2022 10:29 AM [facility] CT ABD/PEL WO IVCONon 2022 CT [...] site. Lower thorax: Lower lungs are clear. [employer] (topogram) images: Unremarkable. IMPRESSION: Midline fat-containing upper abdominal hernia. Information Management Specialist: DANIEL Transcribe Date/Time: Oct 13 2022 7:57A Dictated by : YANICK RIVAS MD This examination was interpreted and the report reviewed and electronically signed by: YANICK RIVAS MD on Oct 13 2022 8:06AM EST [id number] Normal [facility] Consent for Procedure/Surger yon 09-17-2022 Consent for Procedure/Surgery [id number] 0CD:127 Normal [facility] RAD - Ultrasound Reporton RAD - Ultrasound Report [id number] 0CD:127 Normal [facility] Ambulatory Visit Summaryon 0 09-16-2022 [...] no longer receiving treatment for. Hyperlipidemia Normal [facility] Ambulatory Visit Summary LIZZY YEE [...] longer receiving treatment for. Hyperlipidemia Normal [facility] General Surgery Office/Clini c Noteon [...] anastomosis and ventral hernia repair 09/2021 at [facility]; requires yearly flexible sigmoidoscopy for [...] Oral, Nathalie (more content not included)... Normal [facility] Comment on above: Result Comment: Elec tronically Signed By: PELON VANESSA, Nya Patel\.marion\Date and Time Signed: 09/16/22 11:17 EST Alanine Aminotransferaseon 0 - ALT [Catalytic activity/Vol] 30 U/L Normal 16-63 [employer] Other Comment on above: Performed By: #### B MP, ALT, LIPID #### [facility] [address] [place] [address] Dr. Rojelio Kingsley Basic Metabolic Panelon 08-21 Calcium [Mass/Vol] 9.3526614 mg/dL 8.5-10 .1 mg/dL [employer] Other CO2 [Moles/Vol] 25.40438380 mmol/L 21.0-3 2.0 mmol/L [facility] Other Creatinine [Mass/Vol] 1.77304635 mg/dL Critically high 0.70-1.30 mg/dL [employer] Other Potassium [Moles/Vol] 4.42552335 mmol/L 3 .5-5.1 mmol/L [facility] [employer] Other Urea nitrogen [Mass/Vol] 16.2435124 mg/dL 7.0-18.0 mg/dL [facility] [employer] Other Basic Metabolic Panel see note [facility] [employer] Other Basic Metabolic Panel 141 mmol/L 136-14 5 mmol/L [facility] [employer] Other Basic Metabolic Panel 134 mg/dL Critically high 74-106 mg /dL [facility] [employer] Other Basic Metabolic Panel 51 mL/min/1.73m2 Critically low >=60 mL/min/1.73m 2 [facility] [employer] Other Basic Metabolic Panel >60 mL/min/1.73m2 > =60 mL/min/1.73m 2 [facility] [employer] Other Anion gap [Moles/Vol] 15.2 mmol/L Normal No [facility] [employer] Other Comment on above: Performed By: #### B MP, ALT, LIPID #### [facility] [address] [place] [address] Dr. Rojelio Kingsley Chloride [Moles/Vol] 105 mmol/L Normal 98-107 [facility] [employer] Other Comment on above: Performed By: #### B MP, ALT, LIPID #### [facility] [address] [address] [address] Rojelio Kingsley Urea nitrogen/Creatinine [Mass ratio] 11.8 mg/mg Normal [facility] [employer] Other Comment on above: Performed By: #### B MP, ALT, LIPID #### [facility] [address] [place] [address] Dr. Rojelio Kingsley CBC AUTO DIFFon 09-12-2022 BASO # 0.0 103/ul Normal 0.0-0.1 [facility] Comment on above: Performed By: #### C BC #### [facility] [address] [address] [address] Rojelio Kingsley Basophils/100 WBC (Bld) 0.4 % Normal 0.2-2.0 [facility] Comment on above: Performed By: #### C BC #### [facility] [address] [address] [address] Rojelio Kingsley EO # 0.3 103/ul Normal 0.0-0.7 [facility] Comment on above: Performed By: #### C BC #### [facility] [address] [place] [address] Dr. Rojelio Kingsley Eosinophils/100 WBC (Bld) 3.6 % Normal 0.9-7.0 [facility] Comment on above: Performed By: #### C BC #### [facility] [address] [place] [address] Dr. Rojelio Kingsley Erythrocyte distribution width (RBC) [Ratio] 14.1 % Normal 11.0-15.0 [facility] Comment on above: Performed By: #### C BC #### [facility] [address] [place] [address] Dr. Rojelio Kingsley Hematocrit (Bld) [Volume fraction] 40.1 % Critically low 42.0-54.0 [facility] Comment on above: Performed By: #### C BC #### [facility] [address] [place] [address] Dr. Rojelio Kingsley Hemoglobin (Bld) [Mass/Vol] 13.4 g/dL Critically low 14.0-18.0 [facility] Comment on above: Performed By: #### C BC #### [facility] [address] [place] [address] Dr. Rojelio Kingsley IG # 0.02 10e3/ul Normal 0.00-0.03 [facility] Comment on above: Performed By: #### C BC #### [facility] [address] [place] [address] Dr. Rojelio Kingsley IG % 0.2 % Normal 0.0-0.5 [facility] Comment on above: Performed By: #### C BC #### [facility] [address] [place] [address] Dr. Rojelio Kingsley LYMPH # 1.8 103/ul Normal 1.2-3.8 [facility] Comment on above: Performed By: #### C BC #### [facility] [address] [place] [address] Dr. Rojelio Kingsley Lymphocytes/100 WBC (Bld) 21.9 % Normal 20.5-60.0 [facility] Comment on above: Performed By: #### C BC #### [facility] [address] [place] [address] Dr. Rojelio Kingsley MANUAL DIFF REQ NO Normal [facility] Comment on above: Performed By: #### C BC #### [facility] [address] [place] [address] Dr. Rojelio Kingsley MCH (RBC) [Entitic mass] 30.6 pg Normal 25.9-34.0 [facility] Comment on above: Performed By: #### C BC #### [facility] [address] [place] [address] Dr. Rojelio Kingsley MCHC (RBC) [Mass/Vol] 33.4 g/dL Normal 29.9-35.2 [facility] Comment on above: Performed By: #### C BC #### [facility] [address] [place] [address] Dr. Rojelio Kingsley MCV (RBC) [Entitic vol] 91.6 fL Normal 80.0-94.0 [facility] Comment on above: Performed By: #### C BC #### [facility] [address] [place] [address] Dr. Rojelio Kingsley MONO # 0.8 103/ul Normal 0.3-0.8 [facility] Comment on above: Performed By: #### C BC #### [facility] [address] [place] [address] Dr. Rojelio Kingsley Monocytes/100 WBC (Bld) 9.3 % Normal 1.7-12.0 [facility] Comment on above: Performed By: #### C BC #### [facility] [address] [place] [address] Dr. Rojelio Kingsley NEUT # 5.4 103/ul Normal 1.4-6.5 [facility] Comment on above: Performed By: #### C BC #### [facility] [address] [address] [address] Rojelio Kingsley Neutrophils/100 WBC (Bld) 64.6 % Normal 43.0-75.0 [facility] Comment on above: Performed By: #### C BC #### [facility] [address] [address] [address] Rojelio Kingsley Platelet mean volume (Bld) [Entitic vol] 10.3 fL Normal 9.5-13.5 [facility] Comment on above: Performed By: #### C BC #### [facility] [address] [place] [address] Dr. Rojelio Kingsley PLT 214 103/ul Normal 150-450 [facility] Comment on above: Performed By: #### C BC #### [facility] [address] [place] [address] Dr. Rojelio Kingsley RBC 4.38 106/ul Critically low 4.70-6.10 [facility] Comment on above: Performed By: #### C BC #### [facility] [address] [place] [address] Dr. Rojelio Kingsley WBC 8.4 103/ul Normal 4.0-11.0 [facility] Comment on above: Performed By: #### C BC #### [facility] [address] [place] [address] Dr. Rojelio Kingsley GLYCOHEMOGLOBIN A1Con 2022 ADA RECOMMENDATION SEE BELOW Normal [facility] Comment on above: Result Comment: ADA RECOMMENDED LIMIT 4.0 - 6.0 ADA THERAPEUTIC TARGET < 7.0 ACTION SUGGESTED > 7.0 Performed By: #### P OCGLUC #### [facility] [address] [place] [address] Dr. Rojelio Knigsley Glucose [Mass/Vol] 169 mg/dL Normal [facility] Comment on above: Performed By: #### P OCGLUC #### [facility] [address] [place] [address] Dr. Rojelio Kingsley HbA1c (Bld) [Mass fraction] 7.5 % Critically high 4.5-6.2 [facility] Comment on above: Performed By: #### P OCGLUC #### [facility] [address] [place] [address] Dr. oRjelio Kingsley LIPID PROFILEon 09-12-2022 CHOL-HDL RATIO NORM SEE BELOW Normal [facility] Comment on above: Result Comment: 3.3 - 4.4 LOW RISK 4.4 - 7.1 AVERAGE RISK 7.1 - 11.0 MODERATE RISK >11.0 HIGH RISK Performed By: #### B MP, ALT, LIPID #### [facility] [address] [place] [address] Dr. Rojelio Kingsley Cholesterol in LDL [Mass/Vol] 31.2 mg/dL Normal [facility] Comment on above: Performed By: #### B MP, ALT, LIPID #### [facility] [address] [place] [address] Dr. Rojelio Kingsley HDL NORMAL > or = 60 mg/dl - LO W CARDIOVASCULAR RISK <40 mg/dl - HIGH CARDIOVASCULAR RISK Normal [facility] Comment on above: Performed By: #### B MP, ALT, LIPID #### [facility] [address] [place] [address] Dr. Rojelio Kingsley LDL CALC NORMAL SEE BELOW Normal [facility] Comment on above: Result Comment: <100 mg/dl OPTIMAL 100 - 129 mg/dl NEAR OR ABOVE OPTIMAL 130 - 159 mg/dl BORDERLINE HIGH 160 - 189 mg/dl HIGH >190 mg/dl VERY HIGH Performed By: #### B MP, ALT, LIPID #### [facility] [address] [place] [address] Dr. Rojelio Kingsley VLDL CALC 40.8 mg/dL Normal [facility] Comment on above: Performed By: #### B MP, ALT, LIPID #### [facility] [address] [place] [address] Dr. Rojelio Kingsley Lipid Panelon 09-12-2022 Lipid Panel > or = 60 mg/dl - LO W CARDIOVASCULAR RISK <40 mg/dl - HIGH CARDIOVASCULAR RISK [employer] Other Lipid Panel SEE BELOW [employer] Other Lipid Panel 31.2 mg/dL [employer] Other Lipid Panel 40.8 mg/dL [employer] Other Cholesterol [Mass/Vol] 115 mg/dL Normal <=200 [employer] Other Comment on above: Performed By: #### B MP, ALT, LIPID #### [facility] [address] [place], [place] [id number] Dr. Rojelio iKngsley Cholesterol in HDL [Mass/Vol] 43 mg/dL Normal 40-60 [employer] Other Comment on above: Performed By: #### B MP, ALT, LIPID #### [facility] [address] [place] [address] Dr. Rojelio Kingsley Cholesterol.total/Cho lesterol in HDL [Mass ratio] 2.7 {ratio} Normal [employer] Other Comment on above: Performed By: #### B MP, ALT, LIPID #### [facility] [address] [address] [address] Rojelio Kingslye Triglyceride [Mass/Vol] 204 mg/dL Critically high <=150 [employer] Other Comment on above: Performed By: #### B MP, ALT, LIPID #### [facility] [address] [place] [address] Dr. Rojelio Kingsley MICROALBUMIN, RAND URon 02-2 mALB 2.1 mg/L Normal <=30.0 [facility] Comment on above: Performed By: #### M ALBR #### [facility] [address] [place] [address] Dr. Rojelio Kingsley PROF CHEM 8 (BAS METB)on Calcium [Mass/Vol] 9.6 mg/dL Normal 8.5-10.1 [facility] Comment on above: Performed By: #### B MP, ALT, LIPID #### [facility] [address] [place], [place] [id number] Dr. Rojelio Kingsley CO2 [Moles/Vol] 25.1 mmol/L Normal 21.0-32.0 [facility] Comment on above: Performed By: #### B MP, ALT, LIPID #### [facility] [address] [place] [address] Dr. Rojelio Kingsley Creatinine [Mass/Vol] 1.36 mg/dL Critically high 0.70-1.30 [facility] Comment on above: Performed By: #### B MP, ALT, LIPID #### [facility] [address] [address] [address] Rojelio Kingsley EGFR-AF AZERBAIJANI >60 Normal >=60 [facility] Comment on above: Performed By: #### B MP, ALT, LIPID #### [facility] [address] [place] [address] Dr. Rojelio Kingsley EGFR-NON AF AZERBAIJANI 51 mL/min/1.73m2 Critically low >=60 [facility] Comment on above: Performed By: #### B MP, ALT, LIPID #### [facility] [address] [address] [address] Rojelio Kingsley Glucose [Mass/Vol] 134 mg/dL Critically high 74-106 T [facility] Comment on above: Performed By: #### B MP, ALT, LIPID #### [facility] [address] [address] [address] Rojelio Kingsley Potassium [Moles/Vol] 4.3 mmol/L Normal 3.5-5.1 [facility] Comment on above: Performed By: #### B MP, ALT, LIPID #### [facility] [address] [address] [address] Rojelio Kingsley Sodium [Moles/Vol] 141 mmol/L Normal 136-145 [facility] Comment on above: Performed By: #### B MP, ALT, LIPID #### [facility] [address] [address] [address] Rojelio Kingsley Urea nitrogen [Mass/Vol] 16.0 mg/dL Normal 7.0-18.0 [facility] Comment on above: Performed By: #### B MP, ALT, LIPID #### [facility] [address] [address] [address] Rojelio Kingsley US CAROTID ART BILon [...] Date: 2022-09-12 15:22 Normal [facility] US CAROTID ART ZHENG [employer] Other POINT OF CARE GLUCOSEon 06-19 Glucose [Mass/Vol] 106 mg/dL Normal 74-106 [facility] Comment on above: Performed By: #### P OCGLUC #### [facility] [address] [place] [address] Dr. Rojelio Kingsley Covid-19 PCR ([facility])on SARS-CoV-2 (COVID-19) RNA MITCHELL+probe Ql (Unsp spec) Not detected Normal NOT DETECTED [facility] Comment on above: Result Comment: This test is not yet approved or cleared by the [place] FDA. When there are no FDA-approved or cleared tests available, and other criteria are met, FDA can make tests available under an emergency access mechanism called an Emergency Use Authorization (EUA). The EUA for this test is supported by the [place] of Health and Human Service's (HHS's) declaration [...] By: #### P OCGLUC #### [facility] [address] [address] [address] Rojelio Kingsley POINT OF CARE GLUCOSEon 10 Glucose [Mass/Vol] 129 mg/dL Critically high 74-106 [facility] Comment on above: Performed By: #### P OCGLUC #### [facility] [address] [address] [address] Rojelio Kingsley POINT OF CARE GLUCOSEon 03-21 Glucose [Mass/Vol] 116 mg/dL Critically high 74-106 [facility] Comment on above: Performed By: #### P OCGLUC #### [facility] [address] [address] [address] Rojelio Kingsley XR LSPINE 2_3 VIEWSon [...] GABY PADILLA Date: 2022-03-05 13:06 Normal [facility] CBC AUTO DIFFon 02-22-2022 BASO # 0.0 103/ul Normal 0.0-0.1 [facility] Comment on above: Performed By: #### P OCGLUC #### [facility] [address] [place] [address] Dr. Rojelio Kingsley Basophils/100 WBC (Bld) 0.4 % Normal 0.2-2.0 [facility] Comment on above: Performed By: #### P OCGLUC #### [facility] [address] [place] [address] Dr. Rojelio Kingsley EO # 0.3 103/ul Normal 0.0-0.7 [facility] Comment on above: Performed By: #### P OCGLUC #### [facility] [address] [place] [address] Dr. Rojelio Kingsley Eosinophils/100 WBC (Bld) 3.0 % Normal 0.9-7.0 [facility] Comment on above: Performed By: #### P OCGLUC #### [facility] [address] [place] [address] Dr. Rojelio Kingsley Erythrocyte distribution width (RBC) [Ratio] 14.4 % Normal 11.0-15.0 [facility] Comment on above: Performed By: #### P OCGLUC #### [facility] [address] [place] [address] Dr. Rojelio Kingsley Hematocrit (Bld) [Volume fraction] 37.1 % Critically low 42.0-54.0 [facility] Comment on above: Performed By: #### P OCGLUC #### [facility] [address] [place] [address] Dr. Rojelio Kingsley Hemoglobin (Bld) [Mass/Vol] 12.2 g/dL Critically low 14.0-18.0 [facility] Comment on above: Performed By: #### P OCGLUC #### [facility] [address] [place] [address] Dr. Rojelio Kingsley IG # 0.03 10e3/ul Normal 0.00-0.03 [facility] Comment on above: Performed By: #### P OCGLUC #### [facility] [address] [place] [address] Dr. Rojelio Kingsley IG % 0.4 % Normal 0.0-0.5 [facility] Comment on above: Performed By: #### P OCGLUC #### [facility] [address] [place] [address] Dr. Rojelio Kingsley LYMPH # 1.8 103/ul Normal 1.2-3.8 [facility] Comment on above: Performed By: #### P OCGLUC #### [facility] [address] [place] [address] Dr. Rojelio Kingsley Lymphocytes/100 WBC (Bld) 21.6 % Normal 20.5-60.0 [facility] Comment on above: Performed By: #### P OCGLUC #### [facility] [address] [place] [address] Dr. Rojelio Kingsley MANUAL DIFF REQ NO Normal [facility] Comment on above: Performed By: #### P OCGLUC #### [facility] [address] [place] [address] Dr. Rojelio Kingsley MCH (RBC) [Entitic mass] 30.0 pg Normal 25.9-34.0 [facility] Comment on above: Performed By: #### P OCGLUC #### [facility] [address] [place] [address] Dr. Rojelio Kingsley MCHC (RBC) [Mass/Vol] 32.9 g/dL Normal 29.9-35.2 [facility] Comment on above: Performed By: #### P OCGLUC #### [facility] [address] [place] [address] Dr. Rojelio Kingsley MCV (RBC) [Entitic vol] 91.4 fL Normal 80.0-94.0 [facility] Comment on above: Performed By: #### P OCGLUC #### [facility] [address] [place] [address] Dr. Rojelio Kingsley MONO # 0.7 103/ul Normal 0.3-0.8 [facility] Comment on above: Performed By: #### P OCGLUC #### [facility] [address] [place] [address] Dr. Rojelio Kingsley Monocytes/100 WBC (Bld) 8.4 % Normal 1.7-12.0 [facility] Comment on above: Performed By: #### P OCGLUC #### [facility] [address] [place] [address] Dr. Rojelio Kingsley NEUT # 5.5 103/ul Normal 1.4-6.5 [facility] Comment on above: Performed By: #### P OCGLUC #### [facility] [address] [place] [address] Dr. Rojelio Kingsley Neutrophils/100 WBC (Bld) 66.2 % Normal 43.0-75.0 [facility] Comment on above: Performed By: #### P OCGLUC #### [facility] [address] [place] [address] Dr. Rojelio Kingsley Platelet mean volume (Bld) [Entitic vol] 10.3 fL Normal 9.5-13.5 [facility] Comment on above: Performed By: #### P OCGLUC #### [facility] [address] [place] [address] Dr. Rojleio Kingsley PLT 202 103/ul Normal 150-450 [facility] Comment on above: Performed By: #### P OCGLUC #### [facility] [address] [place] [address] Dr. Rojelio Kingsley RBC 4.06 106/ul Critically low 4.70-6.10 [facility] Comment on above: Performed By: #### P OCGLUC #### [facility] [address] [place] [address] Dr. Rojelio Kingsley WBC 8.3 103/ul Normal 4.0-11.0 [facility] Comment on above: Performed By: #### P OCGLUC #### [facility] [address] [place] [address] Dr. Rojelio Kingsley GLYCOHEMOGLOBIN A1Con 2021 ADA RECOMMENDATION SEE BELOW Normal [facility] Comment on above: Result Comment: ADA RECOMMENDED LIMIT 4.0 - 6.0 ADA THERAPEUTIC TARGET < 7.0 ACTION SUGGESTED > 7.0 Performed By: #### A 1C #### [facility] [address] [place] [address] Dr. Rojelio Kingsley Glucose [Mass/Vol] 151 mg/dL Normal [facility] Comment on above: Performed By: #### A 1C #### [facility] [address] [address] [address] Rojelio Kingsley HbA1c (Bld) [Mass fraction] 6.9 % Critically high 4.5-6.2 [facility] Comment on above: Performed By: #### A 1C #### [facility] [address] [address] [address] Rojelio Kingsley Consultation Noteon 02-19-20 22 Consultation Note [id number]:[id number] Normal [facility] KNEE RIGHT 3 VWSon 1 KNEE RIGHT 3 VWS [facility] Department of Radiology [address] [place] [id number] ======== Patient Name: LIZZY YEE : [...] noted. Electronically signed: Mitul Banks. Transcribed by: [email or web address], User Resident: Electronically Signed by: MITUL BANKS @ 01/09/2021 08:47 PM Normal The [facility] POC GLUCOSE LABon 12-29-2020 Glucose [Mass/Vol] 194 mg/dL High 70-100 [facility] Comment on above: Performed By: #### 8 [id number] #### [facility] [address] [place] [address], [place] Glucose [Mass/Vol] 125 mg/dL High 70-100 [facility] Comment on above: Performed By: #### 8 [id number] #### [facility] [address] [place] [address], [place] POC GLUCOSE LABon 12-28-2020 Glucose [Mass/Vol] 197 mg/dL High 70-100 [facility] Comment on above: Performed By: #### 8 [id number] #### [facility] [address] [place] [address], [place] Glucose [Mass/Vol] 177 mg/dL High 70-100 [facility] Comment on above: Performed By: #### 8 [id number] #### [facility] [address] [place] [address], [place] Glucose [Mass/Vol] 215 mg/dL High 70-100 [facility] Comment on above: Performed By: #### 8 [id number] #### [facility] [address] [place] [address], [place] Glucose [Mass/Vol] 152 mg/dL High 70-100 [facility] Comment on above: Performed By: #### 8 [id number] #### [facility] [address] [place] [address], [facility] BASIC METABOLIC PANELon 06-1 Calcium [Mass/Vol] 8.2 mg/dL Low 8.6-10.3 [facility] Comment on above: Order Comment: No: D o not add to previous draw Performed By: #### 8 [id number] #### [facility] [address] [place] [address], [place] Chloride [Moles/Vol] 102 mmol/L Normal 98-107 [facility] Comment on above: Order Comment: No: D o not add to previous draw Performed By: #### 8 [id number] #### [facility] [address] [place] [address], [place] CO2 [Moles/Vol] 23 mmol/L Normal 21-31 [facility] Comment on above: Order Comment: No: D o not add to previous draw Performed By: #### 8 [id number] #### [facility] [address] [place] [address], [place] Creatinine [Mass/Vol] 0.97 mg/dL Normal 0.70-1.30 [facility] Comment on above: Order Comment: No: D o not add to previous draw Performed By: #### 8 [id number] #### [facility] [address] [place] [address], [place] GFR/1.73 sq M.predicted among blacks MDRD (S/P/Bld) [Vol rate/Area] mL/min/{1.73_m2} Normal >60 [facility] Comment on above: Order Comment: No: D o not add to previous draw Result Comment: Calc ulation may not be valid for patients over 70 years Performed By: #### 8 [id number] #### [facility] [address] [place] [address], [place] GFR/1.73 sq M.predicted among non-blacks MDRD (S/P/Bld) [Vol rate/Area] mL/min/{1.73_m2} Normal >60 [facility] Comment on above: Order Comment: No: D o not add to previous draw Result Comment: Calc ulation may not be valid for patients over 70 years Performed By: #### 8 [id number] #### [facility] [address] [place] [address], [place] Glucose [Mass/Vol] 191 mg/dL High 70-100 [facility] Comment on above: Order Comment: No: D o not add to previous draw Performed By: #### 8 [id number] #### [facility] [address] [place] [address], [place] Potassium [Moles/Vol] 3.8 mmol/L Normal 3.5-5.1 [facility] Comment on above: Order Comment: No: D o not add to previous draw Performed By: #### 8 [id number] #### [facility] [address] [place] [address], [place] Sodium [Moles/Vol] 134 mmol/L Low 136-145 [facility] Comment on above: Order Comment: No: D o not add to previous draw Performed By: #### 8 [id number] #### [facility] [address] [place] [address], [facility] Urea nitrogen [Mass/Vol] 23 mg/dL Normal 7-25 [facility] Comment on above: Order Comment: No: D o not add to previous draw Performed By: #### 8 [id number] #### [facility] [address] [place] [address], [place] CBC COMPLETE BLOOD COUNTon 0 - Erythrocyte distribution width (RBC) [Ratio] 13.3 % Normal 11.5-15.0 [facility] Comment on above: Order Comment: No: D o not add to previous draw Performed By: #### 8 [id number] #### [facility] [address] [place] [address], [place] Hematocrit (Bld) [Volume fraction] 35.4 % Low 39.0-50.0 The [facility] Comment on above: Order Comment: No: D o not add to previous draw Performed By: #### 8 [id number] #### [facility] [address] [place] [address], [facility] Hemoglobin (Bld) [Mass/Vol] 11.7 g/dL Low 13.0-17.0 The [facility] Comment on above: Order Comment: No: D o not add to previous draw Performed By: #### 8 [id number] #### [facility] [address] [place] [id number], [facility] MCH (RBC) [Entitic mass] 31.2 pg Normal 27.0-33.0 [facility] Comment on above: Order Comment: No: D o not add to previous draw Performed By: #### 8 [id number] #### [facility] [address] [place] [id number], [facility] MCHC (RBC) [Mass/Vol] 33.1 g/dL Normal 32.0-35.0 [facility] Comment on above: Order Comment: No: D o not add to previous draw Performed By: #### 8 [id number] #### [facility] [address] [place] [id number], [facility] MCV (RBC) [Entitic vol] 94.4 fL Normal 82.0-98.0 [facility] Comment on above: Order Comment: No: D o not add to previous draw Performed By: #### 8 [id number] #### [facility] [address] [place] [address], [facility] Nucleated RBC/100 WBC (Bld) [Ratio] 0 % Normal 0-0 [facility] Comment on above: Order Comment: No: D o not add to previous draw Performed By: #### 8 [id number] #### [facility] [address] [place] [id number], [facility] PLAT CNT 177 10*3/uL Normal 150-[address] [facility] Comment on above: Order Comment: No: D o not add to previous draw Performed By: #### 8 [id number] #### [facility] [address] [place] [id number], [facility] RBC (Bld) [#/Vol] 3.75 10*6/uL Low 4.20-5.70 [facility] Comment on above: Order Comment: No: D o not add to previous draw Performed By: #### 8 [id number] #### [facility] [address] [place] [address], [facility] WBC (Bld) [#/Vol] 16.83 10*3/uL High 4.00-10.60 The [facility] Comment on above: Order Comment: No: D o not add to previous draw Performed By: #### 8 [id number] #### [facility] [address] Operative Reporton Operative Report MR#: [id number] I [facility] Pt. Name: Lizzy Yee Room #: [id number] Discharge Date: Birthdate: 1945 OPERATIVE REPORT DATE [...] surgery. 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 The patient signed the consent form. Site was marked. We proceed with IV antibiotics in the form of 2 g of Ancef within an hour of the incision. PROCEDURE IN DETAIL: After written consent obtained, site was marked. The patient was taken to the [facility] OR and was seen by [...] content not included)... Normal The [facility] POC GLUCOSE LABon 12-27-2020 Glucose [Mass/Vol] 200 mg/dL High 70-100 [facility] Comment on above: Performed By: #### 8 [id number] #### [facility] [address] [place] [address], [place] Glucose [Mass/Vol] 186 mg/dL High 70-100 [facility] Comment on above: Performed By: #### 8 [id number] #### [facility] [address] [place] [address], [place] Glucose [Mass/Vol] 250 mg/dL High 70-100 [facility] Comment on above: Performed By: #### 8 [id number] #### [facility] [address] [place] [address], [place] Glucose [Mass/Vol] 177 mg/dL High 70-100 [facility] Comment on above: Performed By: #### 8 [id number] #### [facility] [address] [place] [address], [facility] POC GLUCOSE LABon 12-26-2020 Glucose [Mass/Vol] 230 mg/dL High 70-100 [facility]: Performed By: #### 8 [id number] #### [facility] [address] [place] [address], [place] Glucose [Mass/Vol] 278 mg/dL High 70-100 [facility] Comment on above: Performed By: #### 8 [id number] #### [facility] [address] [facility] [place] [address], [place] Glucose [Mass/Vol] 174 mg/dL High 70-100 [facility] Comment on above: Performed By: #### 8 [id number] #### [facility] [address] [place] [address], [place] Glucose [Mass/Vol] 146 mg/dL High 70-100 [facility] Comment on above: Performed By: #### 8 [id number] #### [facility] [address] [facility] [place] [place] [address], [place] PORTABLE KNEE RIGHT 2 VWSon 12-26-2020 PORTABLE KNEE RIGHT 2 S [facility] Department of Radiology [address] [place] [id number] ======== Patient Name: LIZZY YEE : 1945 Sex: M Age: Race: White Pt. Location: [place] [address] Patient Status: I Ordered Date: 12/26/2020 7:05:00 [...] replacement. Electronically signed: José Thornton. Transcribed by: [email or web address], User Resident: JOSÉ THORNTON Electronically Signed by: JOSÉ THORNTON @ 12/26/2020 03:28 PM I personally read this/these film(s) with this resident Normal The [facility] Comment on above: Order Comment: Hardw are Evaluation, In PACU; HIP RIGHT 1 OR 2 VWS WITH PE LVISon 10-05-2020 HIP RIGHT 1 OR 2 VWS WITH PELVIS [facility] Department of Radiology [address] [place] [phone] ======== Patient Name: LIZZY YEE : [...] narrowing. Electronically signed: Mitul Banks. Transcribed by: [email or web address], User Resident: Electronically Signed by: MITUL BANKS @ 10/05/2020 01:08 PM Normal The [facility] Comment on above: Order Comment: Views (X-RAY, HIP): AP Pelvis, X-Table Lateral Hip , Weight Bearing?: Y KNEE LEFT 4VWSon 08-20-2020 KNEE LEFT 4VWS [facility] Department of Radiology [address] [place] [phone] ======== Patient Name: LIZZY YEE : 1945 Sex: M Age: Race: White Pt. Location: Patient Status: O Ordered Date: 08/20/2020 8:10:00 AM Completed Date: 08/20/2020 08:14 AM Requesting Provider: CEDRICK WILD Attending Provider: CEDRICK WILD Report Copy To: Signs & Symptoms: M25.569 Pain in unspecified knee I10 History: [place] Comments: Views (X-RAY, KNEE): AP, Lateral, Tunnel, [place] , Weight Bearing?: Y Exam: KNEE LEFT 4VWS ======== KNEE LEFT 4VWS 08/20/2020 8:14 AM CLINICAL INDICATIONS: M25.569 Pain in unspecified knee I10 TECHNOLOGIST COMMENTS: Patient states having bilateral knee pain. QUESTION FOR THE RADIOLOGIST: Views (X-RAY, KNEE): AP, Lateral, Tunnel, [place] , Weight Bearing?: Y PROTOCOL: AP,Lateral,Tunnel [...] reports Electronically signed: Ej Francisco. Transcribed by: [email or web address], User Resident: TAMERA MARIE Electronically Signed by: EJ FRANCISCO @ 08/20/2020 08:41 AM I personally read this/these film(s) with this resident Normal The [facility] Comment on above: Order Comment: Views (X-RAY, KNEE): AP, Lateral, Tunnel, [place] , Weight Bearing?: Y KNEE RIGHT 4 [facility] KNEE RIGHT 4 [facility] Department of Radiology [address] [place] [phone] ======== Patient Name: LIZZY YEE : 1945 Sex: M Age: Race: White Pt. Location: Patient Status: O Ordered Date: 08/20/2020 8:10:00 AM Completed Date: 08/20/2020 08:14 AM Requesting Provider: CEDRICK WILD Attending Provider: CEDRICK WILD Report Copy To: Signs & Symptoms: M25.569 Pain in unspecified knee I10 History: [place] Comments: Views (X-RAY, KNEE): AP, Lateral, Tunnel, [place] , Weight Bearing?: Y Exam: KNEE RIGHT 4 [facility] ======== KNEE RIGHT 4 [facility] 08/20/2020 8:14 AM SIGNS AND SYMPTOMS: M25.569 Pain in unspecified knee I10 TECHNOLOGIST COMMENTS: Patient states having bilateral knee pain. QUESTION FOR THE RADIOLOGIST: Views (X-RAY, KNEE): AP, Lateral, Tunnel, [place] , Weight Bearing?: Y PROTOCOL: AP,Lateral,Tunnel [...] knee. Electronically signed: Ej Francisco. Transcribed by: [email or web address], User Resident: Electronically Signed by: EJ FRANCISCO @ 08/20/2020 08:30 AM Normal [facility] Comment on above: Order Comment: Views (X-RAY, KNEE): AP, Lateral, Tunnel, [place] , Weight Bearing?: Y Vital Signs Date Time Vital Sign Value Performing Clinician Facility 10-20-2024 13:38-0400 Body temperature 97 [degF] Jay Gonzalez MD Work Phone: [facility] 10-20-2024 13:38-0400 Diastolic blood pressure 78 mm[Hg] Jay Gonzalez MD Work Phone: [facility] 10-20-2024 13:38-0400 Heart rate 60 /min Jay Gonzalez MD Work Phone: [facility] 10-20-2024 13:38-0400 SaO2% (BldA) [Mass fraction] 98 % Jay Gonzalez MD Work Phone: [facility] 10-20-2024 13:38-0400 Systolic blood pressure 143 mm[Hg] Jay Gonzalez MD Work Phone: [facility] 09-14-2024 11:44-0500 Body height 161.29 cm [facility] 09-14-2024 11:44-0500 Body mass index (BMI) [Ratio] 39.2 kg/m2 [facility] 09-14-2024 11:44-0500 Body weight 102.11 kg [facility] 09-14-2024 11:44-0500 Diastolic blood pressure 85 mm[Hg] [facility] 09-14-2024 11:44-0500 Heart rate 70 /min [facility] 09-14-2024 11:44-0500 Respiratory rate 12 /min [facility] 09-14-2024 11:44-0500 Systolic blood pressure 135 mm[Hg] [facility] 08-11-2024 15:05-0500 Body height 165.1 cm Phillip Bingham DPM Work Phone: [facility] 08-11-2024 15:05-0500 Body mass index (BMI) [Ratio] 33.61 kg/m2 Phillip Julio César DPM Work Phone: [facility] 08-11-2024 15:05-0500 Body weight 91.63 kg Phillip Bingham DPM Work Phone: [facility] 08-11-2024 15:05-0500 Respiratory rate 18 /min Phillip Bingham DPM Work Phone: [facility] 06-07-2024 12:55-0500 Body height 165.1 cm Joanna Delia DO Work Phone: [facility] 06-07-2024 12:55-0500 Body mass index (BMI) [Ratio] 33.61 kg/m2 Joanna Delia DO Work Phone: [facility] 06-07-2024 12:55-0500 Body weight 91.63 kg Joanna Delia DO Work Phone: [facility] 06-07-2024 12:55-0500 Diastolic blood pressure 76 mm[Hg] Joanna Delia DO Work Phone: [facility] 06-07-2024 12:55-0500 Heart rate 73 /min Joanna Delia DO Work Phone: [facility] 06-07-2024 12:55-0500 SaO2% (BldA) [Mass fraction] 95 % Joanna Delia DO Work Phone: [facility] 06-07-2024 12:55-0500 Systolic blood pressure 142 mm[Hg] Joanna Delia DO Work Phone: [facility] 06-02-2024 14:27-0500 Body height 165.1 cm Phillip Julio César DPM Work Phone: [facility] 06-02-2024 14:27-0500 Body mass index (BMI) [Ratio] 37.44 kg/m2 Phillip Bingham DPM Work Phone: [facility] 06-02-2024 14:27-0500 Body weight 102.06 kg Phillipnegin Bingham DPM Work Phone: [facility] 06-02-2024 14:27-0500 Diastolic blood pressure 79 mm[Hg] Phillip Bingham DPM Work Phone: [facility] 06-02-2024 14:27-0500 Heart rate 82 /min Phillip Bingham DPM Work Phone: [facility] 06-02-2024 14:27-0500 Systolic blood pressure 130 mm[Hg] Phillipnegin Bingham DPM Work Phone: [facility] 04-21-2024 15:20-0400 Body mass index (BMI) [Ratio] 39.5 kg/m2 DO Juancarlos Ball Work Phone: [facility] 04-21-2024 13:34-0400 Body height 161.29 cm DO Juancarlos Ball Work Phone: [facility] 04-21-2024 13:34-0400 Body weight 101.6 kg DO Juancarlos Ball Work Phone: [facility] 04-20-2024 16:32-0400 Body height 165.1 cm DO Juancarlos Ball Work Phone: [facility] 04-20-2024 16:32-0400 Body mass index (BMI) [Ratio] 37.3 kg/m2 DO Juancarlos Ball Work Phone: [facility] 04-20-2024 16:32-0400 Body weight 101.66 kg DO Juancarlos Ball Work Phone: [facility] 03-24-2024 14:15-0400 Body height 165.1 cm Phillip Bingham DPM Work Phone: [facility] 03-24-2024 14:15-0400 Body mass index (BMI) [Ratio] 37.44 kg/m2 Phillip Bingham DPM Work Phone: [facility] 03-24-2024 14:15-0400 Body weight 102.06 kg Phillip Bingham DPM Work Phone: [facility] 03-24-2024 14:15-0400 Diastolic blood pressure 79 mm[Hg] Phillip Bingham DPM Work Phone: [facility] 03-24-2024 14:15-0400 Heart rate 81 /min Phillip Bingham DPM Work Phone: [facility] 03-24-2024 14:15-0400 Systolic blood pressure 127 mm[Hg] Phillip Bingham DPM Work Phone: [facility] 03-09-2024 13:34-0400 Body height 161.29 cm DO Juancarlos Ball Work Phone: [facility] 03-09-2024 13:34-0400 Body mass index (BMI) [Ratio] 39.8 kg/m2 DO Juancarlos Ball Work Phone: [facility] 03-09-2024 13:34-0400 Body weight 103.58 kg DO Juancarlos Ball Work Phone: [facility] 03-09-2024 13:34-0400 Diastolic blood pressure 72 mm[Hg] DO Juancarlos Ball Work Phone: [facility] 03-09-2024 13:34-0400 Heart rate 56 /min DO Juancarlos Ball Work Phone: [facility] 03-09-2024 13:34-0400 Respiratory rate 12 /min DO Juancarlos Ball Work Phone: [facility] 03-09-2024 13:34-0400 Systolic blood pressure 126 mm[Hg] DO Juancarlos Ball Work Phone: [facility] 02-24-2024 13:14-0400 Body height 161.29 cm DO Juancarlos Ball Work Phone: [facility] 02-24-2024 13:14-0400 Body mass index (BMI) [Ratio] 39.4 kg/m2 DO Juancarlos Ball Work Phone: [facility] 02-24-2024 13:14-0400 Body weight 102.73 kg DO Juancarlos Ball Work Phone: [facility] 02-24-2024 13:14-0400 Diastolic blood pressure 58 mm[Hg] DO Juancarlos Ball Work Phone: [facility] 02-24-2024 13:14-0400 Heart rate 53 /min DO Juancarlos Ball Work Phone: [facility] 02-24-2024 13:14-0400 Respiratory rate 20 /min DO Juancarlos Ball Work Phone: [facility] 02-24-2024 13:14-0400 SaO2% (BldA) [Mass fraction] 95 % DO Juancarlos Ball Work Phone: [facility] 02-24-2024 13:14-0400 Systolic blood pressure 120 mm[Hg] DO Juancarlos Ball Work Phone: [facility] 02-08-2024 11:49-0400 Body mass index (BMI) [Ratio] 39.5 kg/m2 DO Juancarlos Ball Work Phone: [facility] 02-08-2024 10:04-0400 Body height 161.29 cm DO Juancarlos Ball Work Phone: [facility] 02-08-2024 10:04-0400 Body weight 101.15 kg DO Juancarlos Ball Work Phone: [facility] 12-08-2023 13:37-0400 Body height 161.29 cm [facility] 12-08-2023 13:37-0400 Body mass index (BMI) [Ratio] 39.4 kg/m2 [facility] 12-08-2023 13:37-0400 Body weight 102.68 kg [facility] 12-08-2023 13:37-0400 Diastolic blood pressure 67 mm[Hg] [facility] 12-08-2023 13:37-0400 Heart rate 61 /min [facility] 12-08-2023 13:37-0400 Respiratory rate 20 /min [facility] 12-08-2023 13:37-0400 Systolic blood pressure 126 mm[Hg] [facility] 11-17-2023 13:12-0400 Body weight 102.71 kg [facility] 11-04-2023 10:57-0400 Body height 161.29 cm [facility] 11-04-2023 10:57-0400 Body mass index (BMI) [Ratio] 39.5 kg/m2 [facility] 11-04-2023 10:57-0400 Body weight 102.96 kg [facility] 11-04-2023 10:57-0400 Diastolic blood pressure 70 mm[Hg] [facility] 11-04-2023 10:57-0400 Heart rate 57 /min [facility] 11-04-2023 10:57-0400 Respiratory rate 18 /min [facility] 11-04-2023 10:57-0400 SaO2% (BldA) [Mass fraction] 97 % [facility] 11-04-2023 10:57-0400 Systolic blood pressure 109 mm[Hg] [facility] 06-05-2023 10:00-0500 Body height 165.1 cm Juancarlos Ball Other [facility] [employer] Other 06-05-2023 10:00-0500 Body mass index (BMI) [Ratio] 39.87 kg/m2 Juancarlos Ball Other [facility] [employer] Other 06-05-2023 10:00-0500 Body weight 108.68 kg Juancarlos Ball Other [facility] [employer] Other 06-05-2023 10:00-0500 Diastolic blood pressure 71 mm[Hg] Juancarlos Ball Other [facility] [employer] Other 06-05-2023 10:00-0500 Respiratory rate 20 /min Juancarlos Ball Other [facility] [employer] Other 06-05-2023 10:00-0500 Systolic blood pressure 118 mm[Hg] Juancarlos Ball Other [employer] Other 05-06-2023 13:45-0400 Body height 165.1 cm Juancarlos Ball Other [employer] Other 05-06-2023 13:45-0400 Body mass index (BMI) [Ratio] 39.97 kg/m2 Juancarlos Ball Other [employer] Other 05-06-2023 13:45-0400 Body weight 108.95 kg Juancarlos Ball Other [employer] Other 05-06-2023 13:45-0400 Diastolic blood pressure 87 mm[Hg] Juancarlos Ball Other [employer] Other 05-06-2023 13:45-0400 Respiratory rate 16 /min Juancarlos Ball Other [employer] Other 05-06-2023 13:45-0400 Systolic blood pressure 158 mm[Hg] Juancarlos Ball Other [employer] Other 03-10-2023 11:00-0400 Body height 165.1 cm Juancarlos Ball Other [employer] Other 03-10-2023 11:00-0400 Body mass index (BMI) [Ratio] 39.3 kg/m2 Juancarlos Ball Other [employer] Other 03-10-2023 11:00-0400 Body weight 107.14 kg Juancarlos Ball Other [employer] Other 03-10-2023 11:00-0400 Diastolic blood pressure 67 mm[Hg] Juancarlos Ball Other [employer] Other 03-10-2023 11:00-0400 Respiratory rate 16 /min Juancarlos Ball Other [employer] Other 03-10-2023 11:00-0400 Systolic blood pressure 120 mm[Hg] Juancarlos Ball Other [employer] Other 10-16-2022 13:12-0400 Body temperature 97.11 [degF] Jay Gonzalez MD Work Phone: [facility] 10-16-2022 13:12-0400 Diastolic blood pressure 66 mm[Hg] Jay Gonzalez MD Work Phone: [facility] 10-16-2022 13:12-0400 Heart rate 51 /min Jay Gonzalez MD Work Phone: [facility] 10-16-2022 13:12-0400 SaO2% (BldA) [Mass fraction] 96 % Jay Gonzalez MD Work Phone: [facility] 10-16-2022 13:12-0400 Systolic blood pressure 143 mm[Hg] Jay Gonzalez MD Work Phone: [facility] 09-08-2022 13:30-0500 Body height 165.1 cm Juancarlos Ball Other [employer] Other 09-08-2022 13:30-0500 Body mass index (BMI) [Ratio] 39.33 kg/m2 Juancarlos Ball Other [employer] Other 09-08-2022 13:30-0500 Body weight 107.23 kg Juancarlos Ball Other [employer] Other 09-08-2022 13:30-0500 Diastolic blood pressure 70 mm[Hg] Juancarlos Ball Other [employer] Other 09-08-2022 13:30-0500 Respiratory rate 20 /min Juancarlos Ball Other [facility] [employer] Other 09-08-2022 13:30-0500 Systolic blood pressure 112 mm[Hg] Juancarlos Ball Other [facility] [employer] Other 01-27-2022 13:20-0400 Body height 165.1 cm Jus Medina MD Work Phone: [facility] 01-27-2022 13:20-0400 Body temperature 96.91 [degF] Jus Medina MD Work Phone: [facility] 01-27-2022 13:20-0400 Body weight 104.33 kg Jus Medina MD Work Phone: [facility] 01-27-2022 13:20-0400 Diastolic blood pressure 56 mm[Hg] Jus Medina MD Work Phone: [facility] 01-27-2022 13:20-0400 Heart rate 50 /min Jus Medina MD Work Phone: [facility] 01-27-2022 13:20-0400 SaO2% (BldA) [Mass fraction] 98 % Jus Medina MD Work Phone: [facility] 01-27-2022 13:20-0400 Systolic blood pressure 131 mm[Hg] Jus Medina MD Work Phone: [facility] 10-10-2021 10:46-0400 Body height 165.1 cm Jay Gonzalez MD Work Phone: [facility] 10-10-2021 10:46-0400 Body weight 102.51 kg Jay Gonzalez MD Work Phone: [facility] 10-10-2021 10:46-0400 Diastolic blood pressure 65 mm[Hg] Jay Gonzalez MD Work Phone: [facility] 10-10-2021 10:46-0400 Heart rate 76 /min Jay Gonzalez MD Work Phone: [facility] 10-10-2021 10:46-0400 Systolic blood pressure 137 mm[Hg] Jay Gonzalez MD Work Phone: [facility] 10-10-2021 10:44-0400 Body height 165.1 cm Jus Medina MD Work Phone: [facility] 10-10-2021 10:44-0400 Body weight 102.51 kg Jus Medina MD Work Phone: [facility] 10-10-2021 10:44-0400 Diastolic blood pressure 65 mm[Hg] Jus Medina MD Work Phone: [facility] 10-10-2021 10:44-0400 Heart rate 76 /min Jus Medina MD Work Phone: [facility] 10-10-2021 10:44-0400 SaO2% (BldA) [Mass fraction] 98 % Jus Medina MD Work Phone: [facility] 10-10-2021 10:44-0400 Systolic blood pressure 137 mm[Hg] Jus Medina MD Work Phone: [facility] Encounters Encounter Date Encounter Type Care Provider Facility Start: 10-20-2024 End: 10-20-2024 ambulatory JAY GONZALEZ Facility:[facility] Start: 10-20-2024 End: 10-20-2024 Patient encounter procedure Jay Gonzalez MD Work Phone: General Surgery Comment on above: S/P repair of ventra l hernia (Primary Dx) Start: 10-04-2024 End: 10-04-2024 ambulatory MATTHEW KEARNS Not Available Start: 09-27-2024 End: 09-27-2024 ambulatory MATTHEW KEARNS Not Available Start: 09-14-2024 End: 09-14-2024 ambulatory [facility] Work Phone: Start: 09-14-2024 End: 09-14-2024 Patient encounter procedure [facility] Work Phone: Start: 08-27-2024 Non-patient / Non-visit [facility] Work Phone: Start: 08-24-2024 End: 08-24-2024 ambulatory MATTHEW KEARNS Not Available Start: 08-24-2024 End: 08-24-2024 Bamboo flowsheet Matthew Kearns DO Work Phone: [facility] Start: 08-24-2024 End: 08-24-2024 Bamboo flowsheet Matthew Kearns DO Work Phone: [facility] Start: 08-11-2024 End: 08-11-2024 Patient encounter procedure Phillip Bingham DPM Work Phone: [facility] Comment on above: 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, unspecified whether manager terminal insulin use ([facility]) (Primary Dx); Pain due to onychomycosis of toenails of both feet; Xerosis cutis Start: 08-11-2024 End: 08-11-2024 ambulatory PHILLIP BINGHAM Not Available Start: 08-11-2024 End: 08-11-2024 Bamboo flowsheet Phillip Bingham DPM Work Phone: [facility] Start: 08-11-2024 End: 08-11-2024 Bamboo flowsheet Phillip Bingham DPM Work Phone: [facility] Start: 07-28-2024 End: 07-28-2024 Patient encounter procedure [facility] Work Phone: Start: 06-07-2024 End: 06-07-2024 Bamboo flowsheet Joanna Delia DO Work Phone: [facility] Start: 06-07-2024 End: 06-07-2024 Bamboo flowsheet Joanna Delia DO Work Phone: 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, unspecified whether manager terminal insulin use ([facility]) (Primary Dx); Pain due to onychomycosis of toenails of both feet; Xerosis cutis Start: 06-02-2024 End: 06-02-2024 ambulatory PHILLIP BINGHAM Not Available Start: 06-02-2024 End: 06-02-2024 Bamboo flowsheet Phillip Bingham DPM Work Phone: [facility] Start: 06-02-2024 End: 06-02-2024 Bamboo flowsheet Phillip Bingham DPM Work Phone: [facility] Start: 05-04-2024 End: 05-04-2024 ambulatory [facility] Start: 04-21-2024 End: 04-21-2024 Patient encounter procedure DO Juancarlos Ball Work Phone: [facility] Work Phone: Start: 04-21-2024 End: 04-21-2024 Patient encounter procedure DO Juancarlos Ball Work Phone: [facility] Work Phone: Start: 04-21-2024 End: 04-21-2024 Patient encounter procedure DO Juancarlos Ball Work Phone: [facility] Start: 04-21-2024 End: 04-21-2024 ambulatory Ej Anthony II Facility:[facility] Start: 04-11-2024 End: 04-11-2024 ambulatory Hanh Wade MD Facility: [facility] Start: 03-24-2024 End: 03-24-2024 Patient encounter procedure Phillip Bingham DPM Work Phone: [facility] Comment on above: Xerosis cutis (Prima ry Dx); Diabetes mellitus due to underlying condition with diabetic polyneuropathy, unspecified whether fci insulin use ([facility]); Onychomycosis; Toe pain, bilateral Start: 03-24-2024 End: 03-24-2024 ambulatory PHILLIP BINGHAM Not Available Start: 03-24-2024 End: 03-24-2024 Bamboo flowsheet Phillip Bingham DPM Work Phone: [facility] Start: 03-24-2024 End: 03-24-2024 Bamboo flowsheet Phillip Bingham DPM Work Phone: [facility] Start: 03-09-2024 End: 03-09-2024 Patient encounter procedure DO Juancarlos [email or web address] Work Phone: [facility] Work Phone: Start: 02-24-2024 End: 02-24-2024 Patient encounter procedure DO Juancarlos Ball Work Phone: [facility] Work Phone: Start: 02-08-2024 End: 02-08-2024 Patient encounter procedure DO Juancarlos Ball Work Phone: [facility] Work Phone: Start: 12-15-2023 End: 12-15-2023 ambulatory JOANNA LIN Not Available Start: 12-10-2023 End: 12-10-2023 ambulatory PHILLIP BINGHAM Not Available Start: 12-08-2023 End: 12-08-2023 Patient encounter procedure [facility] Work Phone: Start: 11-17-2023 End: 11-17-2023 Patient encounter procedure [facility] Work Phone: Start: 11-04-2023 End: 11-04-2023 Patient encounter procedure [facility] Work Phone: Start: 10-27-2023 Telephone encounter Jay patel MD Work Phone: General Surgery Start: 10-09-2023 Non-patient / Non-visit [facility] Work Phone: Start: 08-10-2023 (RD) [employer] Nirmala James [facility] Start: 08-10-2023 End: 08-10-2023 ambulatory Juancarlos Bang [facility] [employer] Other Start: 08-03-2023 End: 08-03-2023 ambulatory Hanh Wade MD Facility:[facility] Start: 07-27-2023 End: 07-27-2023 ambulatory Hanh Wade MD Facility: [place] Start: 06-17-2023 End: 06-17-2023 ambulatory Juancarlos Bang Other [employer] Other Start: 06-17-2023 Telephone encounter Juancarlos Cuenca [facility] Start: 06-16-2023 End: 06-16-2023 ambulatory Juancarlos Cuenca Other [employer] Other Start: 06-16-2023 Telephone encounter Juancarlos Ball [facility] Start: 06-09-2023 End: 06-09-2023 ambulatory Juancarlos Ball Other [employer] Other Start: 06-09-2023 Telephone encounter Juancarlos Ball [facility] Start: 06-08-2023 End: 06-08-2023 ambulatory Juancarlos Ball Other [employer] Other Start: 06-08-2023 Telephone encounter Juancarlos Ball [facility] Start: 06-07-2023 End: 06-07-2023 ambulatory Juancarlos Bang Other [employer] Other Start: 06-07-2023 Telephone encounter Juancarlos Ball [facility] Start: 06-05-2023 End: 06-05-2023 ambulatory Juancarlos Ball Other [employer] Other Start: 06-05-2023 Office outpatient vi sit 25 minutes Juancarlos Ball [facility] Start: 05-27-2023 End: 05-27-2023 ambulatory Juancarlos Ball Other [employer] Other Start: 05-27-2023 Telephone encounter Juancarlos Ball [facility] Start: 05-17-2023 End: 05-17-2023 ambulatory Juancarlos Ball Other [employer] Other Start: 05-17-2023 Telephone encounter Juancarlos Ball [facility] Start: 05-15-2023 End: 05-15-2023 ambulatory Juancarlos Bang Other [employer] Other Start: 05-15-2023 Telephone encounter Juancarlos Ball [facility] Start: 05-07-2023 End: 05-07-2023 ambulatory Juancarlos Cuenca Other [employer] Other Start: 05-07-2023 Telephone encounter Juancarlos Ball [facility] Start: 05-06-2023 End: 05-06-2023 ambulatory Juancarlos Ball Other [employer] Other Start: 05-06-2023 Office outpatient vi sit 25 minutes Juancarlos Ball [facility] Start: 05-06-2023 Telephone encounter Juancarlos Ball [facility] Start: 04-04-2023 End: 04-04-2023 ambulatory Juancarlos Ball Other [employer] Other Start: 04-04-2023 Telephone encounter Juancarlos Ball [facility] Start: 03-10-2023 End: 03-10-2023 ambulatory Juancarlos Cuenca Other [employer] Other Start: 03-10-2023 Office outpatient vi sit 25 minutes Juancarlos [facility] Start: 12-24-2022 End: 12-24-2022 ambulatory Juancarlos Cuenca Other [employer] Other Start: 12-24-2022 Telephone encounter Juancarlos BELL [facility] Start: 12-17-2022 End: 12-18-[address] NYA BIRD . Facility: Start: 12-16-2022 End: 12-16-2022 ambulatory NARENDRANATH LAKSHMIPATHY . 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 Start: 09-12-2022 End: 09-13-[address] JUANCARLOS CUENCA [facility] [employer] Other Start: 09-08-2022 End: 09-08-2022 ambulatory Juancarlos Cuenca [facility] [employer] Other Start: 09-08-2022 Patient encounter procedure Juancarlos [facility] Start: 07-31-2022 End: 08-01-[address] EVAN LAMAS . Facility:[facility] Start: 07-03-2022 Encounter for preprocedural laboratory examination DR EVAN LAMAS . [facility] Start: 07-01-2022 End: 07-01-2022 ambulatory [...] Telephone encounter Shilpa Storm MD Work Phone: [employer] Research Comment on above: Research Start: 10-10-2021 End: 10-10-2021 Patient encounter procedure Jay Gonzalez MD Work Phone: General Surgery Comment on above: Ventral incisional h ernia (Primary Dx) Polyposis of colon ( Primary Dx) Start: 12-26-2020 End: 12-29-2020 ambulatory JUANCARLOS CUENCA Facility:[facility] Start: 10-19-2020 End: 10-20-2020 ambulatory JUANCARLOS CUENCA Facility:[facility] Procedures Date Procedure Procedure Detail Performing Clinician Start: 08-24-2024 Oph bmtry prtl coher intrfrmtry io lens pwr shoshana Matthew Kearns DO Work Phone: Start: 08-24-2024 End: 08-24-2024 Oph medical xm&eval compre new pt 1/> vst Age-related nuclear cataract of right eye Matthew Kearns DO Work Phone: Comment on above: Age-related nuclear cataract of right eye (Primary Dx); Left posterior capsular opacification Start: 04-21-2024 Plain radiography of pelvis DO QR Wild Work Phone: Start: 04-21-2024 X-ray of left knee, four views DO QR Wild Work Phone: Start: 10-04-2021 Partial resection of colon Nya BIRD Start: 10-04-2021 Repair of ventral hernia Nya BIRD Start: 04-08-2021 Colonoscopy Nya ABARCA Comment on above: Transverse and desce nding colon polyps Start: 12-26-2020 ANESTH KNEE ARTHROPLASTY JUANCARLOS CUENCA Start: 12-26-2020 Arthrp kne condyle&p latu medial&lat compartments LIVIAHAL TIM Start: 12-26-2020 JOINT DEVICE (IMPLANTABLE) JUANCARLOS CUENCA Start: 11-17-2017 Colonoscopy Nya ABARCA Comment on above: 2004 (2), 2005, 2007 , 2009, 2011, 05/2015, 11/2017 Start: 03-06-2016 Transurethral prostatectomy Nya BIRD Start: 02-18-2016 Cystoscopy Nya NI TEVIN Start: 01-16-2016 Urodynamic studies [place] aeandreas NILL Start: 07-20-2012 Hernia repair Nya Elly MARLENE Start: 08-26-2007 Prosthetic arthropla sty of the hip Nya NILL Start: 08-20-2007 Hernia of anterior abdominal wall (disorder) Nya NILL Start: 04-19-2004 Transrectal biopsy o f prostate using ultrasound guidance Nya SAVAGEL 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 Bilateral vasectomy Nya SAVAGEL 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 [place] ael NILL Plan of Treatment Date Care Activity Detail Author Start: 03-06-2034 Urine microalbumin profile DTaP,Tdap,Td Vaccine (2 - Td or Tdap) [facility] Start: 10-24-2025 End: 10-24-2025 Patient encounter procedure 10/24/2025 1:40 PM EDT Office Visit General Surgery [address] [place], [place] [id number] [place] [id number] [place] [address] Est Pt: 1 yr f/up, s/p AWR 09/24/21 General Surgery Comment on above: Est Pt: 1 yr f/up, s /p AWR 09/24/21 Start: 10-25-2024 End: 10-25-2024 Patient encounter procedure [facility] Start: 10-20-2024 End: 10-20-2024 Patient encounter procedure 10/20/2024 3:10 PM EDT Office Visit [facility] [address] [place] [address] Phillip Bingahm DPM [address] [facility] [address] [place] [address] [facility] Start: 10-14-2024 BP Controlled (<130/80) BP Controlle d (<130/80) [facility] Start: 10-05-2024 Covid-19 Vaccine () Covid-19 Vaccine () [facility] Start: 08-24-2024 End: 08-24-2024 Patient encounter procedure [facility] Comment on above: Arrived Start: 08-11-2024 End: 08-11-2024 Patient encounter procedure [facility] Comment on above: 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, unspecified whether manager terminal insulin use ([facility]) (Primary Dx); Pain due to onychomycosis of toenails of both feet; Xerosis cutis Start: 07-20-2024 Advance Directive Discussion Advance Directive Discussion [facility] Start: 06-07-2024 End: 06-07-2024 Patient encounter procedure [facility] Comment on above: Arrived Start: 06-02-2024 End: 06-02-2024 Patient encounter procedure 06/02/2024 2:30 PM EST Office Visit [facility] [address] [place] [id number] Phillip Bingham DPM [address] [address] [facility] Start: 05-01-2024 Shingrix Vaccine (2 of 2) Shingrix Vaccine (2 of 2) [facility] Start: 03-24-2024 End: 03-24-2024 Patient encounter procedure 03/24/2024 2:30 PM EDT Office Visit [facility] [address] [facility] [address] [place] [id number] Phillip Bingham, TERRY [address] [address] Xerosis cutis (Primary Dx); Diabetes mellitus due to underlying condition with diabetic polyneuropathy, unspecified whether manager terminal insulin use ([facility]); Onychomycosis; Toe pain, bilateral [facility] Comment on above: Xerosis cutis (Prima ry Dx); Diabetes mellitus due to underlying condition with diabetic polyneuropathy, unspecified whether manager terminal insulin use (CMS/HCC); Onychomycosis; Toe pain, bilateral Start: 03-20-2024 Influenza vaccination Influenza Vacc ine (#1) [facility] Start: 07-20-2023 Advance Directive Discussion Advance Directive Discussion [facility] Start: 07-20-2023 Behavioral Health Screening Behavioral Health Screening [facility] Start: 10-10-2022 End: 11-09-2022 Ct abdomen & pelvis w/o contrast material CT ABD/PEL WO IVCON Radiology Routine Ventral incisional hernia Expected: 10/10/2022, Expires: 11/09/2022 [facility] Work Phone: Comment on above: Expected: 10/10/2022 , Expires: 11/09/2022 Start: 07-20-2022 ADVANCE DIRECTIVE DISCUSSION ADVANCE DIRECTIVE DISCUSSION [facility] Start: 07-20-2022 DEPRESSION ASSESSMENT DEPRESSION ASS ESSMENT [facility] Start: 03-20-2022 Influenza vaccination INFLUENZA (#1) [facility] Start: 03-13-2022 Hemoglobin A1c measurement HbA1C [facility] Start: 03-13-2022 Hemoglobin A1c/Hemoglobin.total in Blood HBA1C [facility] Start: 01-04-2022 COVID-19 VACCINE (5 - Booster for Pfizer series) COVID-19 VACCINE (5 - Booster for Pfizer series) [facility] Start: 07-20-2021 ADVANCE DIRECTIVE DISCUSSION ADVANCE DIRECTIVE DISCUSSION [facility] Start: 04-19-2015 Pneumococcal Vaccine : 50+ (2 of 2 - PCV) Pneumococcal Vaccine: 50+ (2 of 2 - PCV) [facility] Start: 04-19-2015 Pneumococcal Vaccine : 65+ (2 of 2 - PCV) Pneumococcal Vaccine: 65+ (2 of 2 - PCV) [facility] Start: 04-19-2015 Pneumococcal Vaccine : 65+ Years (2 of 2 - PCV) Pneumococcal Vaccine: 65+ Years (2 of 2 - PCV) [facility] Start: 2009 PNEUMOVAX AGE 65 AND OVER WITH 5YR LOOKBACK (#1) PNEUMOVAX AGE 65 AND OVER WITH 5YR LOOKBACK (#1) [facility] Start: 1994 SHINGRIX VACCINE (1 of 2) SHINGRIX VACCINE (1 of 2) [facility] Start: 12-31-1963 Urine microalbumin profile [facility] Start: 1962 ANNUAL PCP TEAM PROJECT CONTROLS SCHEDULER MACY DISEASE VISIT ANNUAL PCP TEAM CHRONIC DISEASE VISIT [facility] Start: 1962 Anxiety Screening Anxiety Screening [facility] Start: 1962 BP CONTROLLED (<130/80) BP CONTROLLE D (<130/80) [facility] Start: 1962 Depression Screening Depression Scre ening [facility] Start: 1962 Hepatitis B surface antibody level LDL CHOLESTEROL [facility] Start: 1962 HEPATITIS C SCREENING HEPATITIS C [facility] Start: 1962 Hepatitis C screening Hepatitis C [facility] Start: 1956 Adult depression screening assessment DEPRESSION SCREENING [facility] Start: 1954 3 comp foot exam completed DIABETIC FOOT EXAM [facility] Start: 1954 Diabetic foot examination Diabetic Foot Exam [facility] Start: 1954 Glaucoma screening Dilated Retinal E xam [facility] Start: 1954 Hepatitis B screening URINE ALBUMIN:CREATININE RATIO [facility] Start: 1954 Hepatitis C antibody , confirmatory test DILATED RETINAL EXAM [facility] Start: 1950 PNEUMOCOCCAL: 65+ (1 - PCV) PNEUMOCOCCAL: 65+ (1 - PCV) [facility] End: 10-11-2022 Ct abdomen & pelvis w/o contrast material [facility] Work Phone: Comment on above: 1 Occurrences starti ng 10/11/2022 until 10/11/2022 End: 11-15-2023 Ct abdomen & pelvis w/o contrast material CT ABD/PEL WO IVCON Radiology Routine Ventral incisional hernia 1 Occurrences starting 10/16/2022 until 11/15/2023 [facility] Work Phone: Comment on above: 1 Occurrences starti ng 10/16/2022 until 11/15/2023 [facility] Immunizations Immunization Date Immunization Notes Care Provider Fa [facility] 04-14-2023 influenza virus vaccine, unspecified formulation Phillip Bingham DPM Work Phone: [facility] 05-20-2022 influenza virus vaccine, unspecified formulation Nya BIRD [facility] 05-16-2022 influenza, high dose seasonal, preservative-free Juancarlos Cuenca Other [facility] Other 05-16-2022 influenza virus vaccine, split virus (incl. purified surface antigen) Juancarlos Cuenca Other [facility] Other 05-16-2022 influenza virus vaccine, unspecified formulation [facility] 04-15-2022 SARS-CoV-2 (COVID-19 ) [id number] Nya BIRD [facility] 11-09-2021 COVID-19 Vaccine Pfi zer - Documentation Purposes Only Juancarlos Cuenca Other [facility] 11-09-2021 SARS-CoV-2 mRNA (jknaoqjoezb-tthm-bnvuq se) vaccine Nya BIRD [facility] 04-19-2021 SARS-CoV-2 (COVID-19 ) mRNA BNT-162b2 vax SimworxL [facility] Comment on above: Result Comment: 2022: [id number] 09-05-2020 SARS-CoV-2 (COVID-19 ) mRNA BNT-162b2 [address] Inu[address]L [facility] Comment on above: Result Comment: 2022: [id number] 08-15-2020 COVID-19 Vaccine Moderna - Documentation Purposes Only Juancarlos Cuenca Other [facility] 08-15-2020 SARS-CoV-2 (COVID-19 ) mRNA BNT-162b2 Deltek[address] Yodio [facility] Comment on above: Result Comment: 2022: [id number] 03-28-2020 influenza virus vaccine, split virus (incl. purified surface antigen) Juancarlos Cuenca Other [facility] [employer] Other 03-28-2020 influenza virus vaccine, unspecified formulation [facility] 05-17-2019 influenza virus vaccine, split virus (incl. purified surface antigen) Juancarlos Cuenca Other [facility] [employer] Other 05-17-2019 influenza virus vaccine, unspecified formulation [facility] 05-13-2018 influenza virus vaccine, split virus (incl. purified surface antigen) Juancarlos Cuenca Other [facility] Other 05-13-2018 influenza virus vaccine, unspecified formulation [facility] 04-25-2015 influenza virus vaccine, split virus (incl. purified surface antigen) Juancarlos Cuenca Other [facility] Other 04-25-2015 influenza virus vaccine, unspecified formulation [facility] 04-25-2015 pneumococcal conjuga te vaccine, 13 valent Juancarlos Cuenca Other [facility] 04-19-2014 pneumococcal polysaccharide vaccine, 23 valent Juancarlos Cuenca Other [facility] 04-20-2013 tetanus and diphther ia toxoids, adsorbed, preservative free, for adult use (5 Lf of tetanus toxoid and 2 Lf of diphtheria toxoid) Juancarlos Cuenca Other [facility] 04-21-2012 pneumococcal polysaccharide vaccine, 23 valent Juancarlos Cuenca Other [facility] Payers Date Payer Category Payer Self-pay [id number] 2023 Unknown [id number] [address] [facility] AARP SUPPLEMENT [id number] 2020-Present [phone] [address] [place] [address] Indemnity [id number] 2020 Private Health Insurance [id number] 2009 Medicare MEDICARE MEDICAR E A AND B [id number] 2009-Present [phone] [place] [address] Medicare [id number] .[id number] 2009 Medicare [id number] 1.13.159.2 .[id number] 1959 Medicare [id number] 1959 Unknown [id number] 1944 Unknown [id number] 2.16.840.1.643620.3.579.2 .647 1944 Unknown [id number] 2.16.840.1.808240.3.579.2 .647 1944 Unknown [id number] 2.16.840.1.185026.3.579.2 .593 1944 Unknown [id number] 2.16.840.1.863369.3.579.2 .593 1944 Unknown [id number] 2.16.840.1.876308.3.579.2 .593 1944 Unknown [id number] 2.16.840.1.134755.3.579.2 .593 1944 Unknown [id number] 2.16.840.1.986312.3.579.2 .593 1944 Unknown [id number] 2.16.840.1.916078.3.579.2 .593 1944 Unknown [id number] 2.16.840.1.371217.3.579.2 .593 1944 Unknown [id number] 2.16.840.1.978096.3.579.2 .593 1944 Unknown [id number] 2.16.840.1.417741.3.579.2 .593 1944 Unknown [id number] 2.16.840.1.520061.3.579.2 .593 1944 Unknown [id number] 2.16.840.1.090203.3.579.2 .593 1944 Unknown [id number] 2.16.840.1.545970.3.579.2 .593 1944 Unknown [id number] 2.16.840.1.611795.3.579.2 .593 1944 Unknown [id number] 2.16.840.1.609361.3.579.2 .593 1944 Unknown [id number] 2.16.840.1.385656.3.579.2 .593 1944 Unknown [id number] 2.16.840.1.895608.3.579.2 .593 1944 Unknown [id number] 2.16.840.1.723955.3.579.2 .593 1944 Unknown [id number] 2.16.840.1.567129.3.579.2 .593 1944 Unknown [id number] 2.16.840.1.919914.3.579.2 .593 1944 Unknown [id number] 2.16.840.1.030245.3.579.2 .727 1944 Unknown [id number] 2.16.840.1.009613.3.579.2 .727 1944 Unknown [id number] 2.16.840.1.661274.3.579.2 .727 1944 Unknown [id number] 2.16.840.1.005678.3.579.2 .196 1944 Unknown [id number] 2.16.840.1.257686.3.579.2 .196 1944 Unknown [id number] 2.16.840.1.294789.3.579.2 .196 1944 Unknown [id number] 2.16.840.1.413453.3.579.2 .1259 1944 Unknown [id number] 2.16.840.1.455514.3.579.2 .1259 1944 Unknown [id number] 2.16.840.1.439057.3.579.2 .1259 1944 Unknown [id number] 2.16.840.1.200882.3.579.2 .1259 1944 Unknown [id number] 2.16.840.1.085243.3.579.2 .1259 1944 Unknown [id number] 2.16.840.1.861271.3.579.2 .1258 1944 Unknown [id number] 2.16.840.1.604410.3.579.2 .1259 1944 Unknown [id number] 2.16.840.1.942551.3.579.2 .1258 1944 Unknown [id number] 2.16.840.1.496905.3.579.2 .1259 Unknown [id number] Unknown [id number] 2.0.1.976968.19 Unknown [id number] Conversion Insurance [id number] Unknown [id number] 2.840.1.238310.3.579.2 .531 Unknown [id number] 2.0.1.239775.3.579.2 .531 Social History Date Type Detail Facility Start: 05-21-2021 End: 10-16-2022 Tobacco smoking status NHIS Ex-smoker [facility] End: 07-20-1994 History of tobacco use Current smoker [facility] End: 07-20-1994 History of tobacco use Cigar Smoker [facility] Start: 05-21-2021 End: 10-16-2022 Tobacco use and exposure Smokeless tobacco non-user [facility] Start: 10-10-2021 End: 10-15-2023 Alcohol intake Ex-drinker (finding) [facility] Start: 05-21-2021 End: 10-16-2022 Tobacco Comment Quit 15+ years [facility] Start: 1945 Sex Assigned At Not on file C [facility] Start: 08-25-2021 End: 09-24-2021 Exposure to SARS-CoV-2 (event) Not sure [facility] Start: 09-16-2022 Tobacco smoking status Never s moked tobacco (finding) [facility] Tobacco smoking status Former sm okeless tobacco user, [facility] than [facility] Start: 10-15-2023 End: 08-11-2024 Sex Assigned At Male [facility] Start: 10-15-2023 End: 08-11-2024 History of Social function [facility] Start: 1945 Sex Assigned At Male F [facility] History of tobacco use Cigarette Smoker [facility] History of tobacco use Passive smoker [facility] Start: 06-02-2024 End: 08-24-2024 Alcoholic beverage intake Lifetime non-drinker (finding) [facility] Start: 09-14-2024 Sex Male (finding) [facility] Medical Equipment Procedure Code Equipment Code Equipment Origin al Text Equipment Identifier Dates Mesh Parietene Polypropylene Macroporous [id number] Surgical Monofilament - [id number] Start: 09-24-2021 Blood Sugar Diag nostic (Accu-Chek Guide Test Strips) strip Start: 09-14-2023 Blood Sugar Diag nostic (Accu-Chek Guide Test Strips) strip Start: 09-07-2023 End: 09-14-2023 Blood Sugar Diag nostic (Accu-Chek Guide Test Strips) strip Start: 09-14-2023 Blood Sugar Diag nostic (Accu-Chek Guide Test Strips) strip Start: 09-07-2023 End: 09-14-2023 Blood Sugar Diag nostic (Accu-Chek Guide Test Strips) strip Start: 09-12-2024 Blood Sugar Diag nostic (Accu-Chek Guide Test Strips) strip Start: 09-14-2023 End: 09-12-2024 Blood Sugar Diag nostic (Accu-Chek Guide Test Strips) strip Start: 09-07-2023 End: 09-14-2023 Functional Status Date Assessment Result Facility 10-01-2021 Are you deaf, or do you have serious difficulty hearing No 10/01/2021 2:46 PM Wendy Rodriguez, NILAM No [facility] 10-01-2021 Are you blind, or do you have serious difficulty seeing, even when wearing glasses No 10/01/2021 2:46 PM Wendy Rodriguez, NILAM No [facility] 10-01-2021 Do you have serious difficulty walking or climbing stairs No 10/01/2021 2:46 PM EDT Wendy Paris, NILAM No [facility] 10-01-2021 Do you have difficul ty dressing or bathing No 10/01/2021 2:46 PM EDT Wendy Paris, RN No [facility] 10-01-2021 Because of a physica l, mental, or emotional condition, do you have difficulty doing errands alone such as visiting a physician's office or shopping No 10/01/2021 2:46 PM EDT Wendy Paris, RN No [facility] Mental Status Date Assessment Result Facility 10-01-2021 Because of a physica l, mental, or emotional condition, do you have serious difficulty concentrating, remembering, or making decisions No 10/01/2021 2:46 PM EDWendy Bear, NILAM No [facility] Clinical Notes 12-29-2020 to 10-20-2024 Jay Gonzalez MD - 10/20/2024 1:40 PM Kalina Kearns DO - 08/24/2024 3:00 PM Marjan Bingham DPM - 08/11/2024 3:10 PM EST Note Date & Type Note Facility 10-20-2024 History of Present illness Narrative [facility] - Follow Up Visit Assessment/Plan: Lizzy Yee is a 78 year old male with a history of HTN, HLD, CAD, BPM, Anxiety, Obesity, BHUPENDRA, and colonic polyposis syndrome s/p subtotal colectomy with concomitant abdominal wall reconstruction with Dr. Medina on 09/24/2021. He was last seen 10/15/2023 for his 2 year follow up and was doing well. His abdominal exam was stable. I was able to feel the 3-4 cm subxiphoid fascial separation with no eventration or bulging with valsalva. He was agreeable with having CT imaging to assess this area which took place 10/19/2023. He had also gained some weight when we last spoke and we discussed the importance of working on this. He presents today for a one year follow up, 3 years out from surgery. Cait is doing great with no evidence of hernia recurrence on exam, no abdominal pain, and no limitation in activity as it relates to his abdominal wall. Will continue with yearly surveillance. -Follow-up in 1 year (4 years post op) Subjective: Limited exercise due to back pain. He has had some difficulty with his weight and can't manage to lose any. He was briefly on Ozempic but this didn't work well to control his DM. No pain in his abdominal wall and no limitation in activity from his abdomen, just his knee and abdomen. Objective: AAOx3, NAD Non-labored respirations on RA Abdomen soft, obese, non-tender, and non-distended. Well-healed midline scar. No bulge on exam. Jay Gonzalez MD 10/20/24, 2:03 PM General Surgery [facility] Medical Decision Making: Problems: Low: Stable chronic illness Risk: Minimal: Minimal risk from testing/treatment Medical Decision Making Level: 2 - Straightforward documented in this encounter [facility] 10-20-2024 Note HNO ID: [id number] Author: JAY GONZALEZ MD Service: ? Author Type: Physician Type: Progress Notes Filed: 10/20/2024 14:04 Note Text: [facility] - Follow Up Visit Assessment/Plan: Lizzy Yee is a 78 year old male with a history of HTN, HLD, CAD, BPM, Anxiety, Obesity, BHUPENDRA, and colonic polyposis syndrome s/p subtotal colectomy with concomitant abdominal wall reconstruction with Dr. Medina on 09/24/2021. He was last seen 10/15/2023 for his 2 year follow up and was doing well. His abdominal exam was stable. I was able to feel the 3-4 cm subxiphoid fascial separation with no eventration or bulging with valsalva. He was agreeable with having CT imaging to assess this area which took place 10/19/2023. He had also gained some weight when we last spoke and we discussed the importance of working on this. He presents today for a one year follow up, 3 years out from surgery. Cait is doing great with no evidence of hernia recurrence on exam, no abdominal pain, and no limitation in activity as it relates to his abdominal wall. Will continue with yearly surveillance. -Follow-up in 1 year (4 years post op) Subjective: Limited exercise due to back pain. He has had some difficulty with his weight and can't manage to lose any. He was briefly on Ozempic but this didn't work well to control his DM. No pain in his abdominal wall and no limitation in activity from his abdomen, just his knee and abdomen. Objective: AAOx3, NAD Non-labored respirations on RA Abdomen soft, obese, non-tender, and non-distended. Well-healed midline scar. No bulge on exam. Jay Gonzalez MD 10/20/24, 2:03 PM General Surgery [facility] Medical Decision Making: Problems: Low: Stable chronic illness Risk: Minimal: Minimal risk from testing/treatment Medical Decision Making Level: 2 - Straightforward [facility] 08-24-2024 History of Present illness Narrative Images [...] years ago. Pt saw Dr. Larsen at [facility] and they told he wendy needs a YAG in left eye (OS) as well as cataract extraction (CE) of right eye (OD) . Referred by Dr. Shine *Has taken Flomax in the past* No Latex allergies No Pacemakers or Defib Last edited by Matthew Kearns DO on 08/24/2024 3:51 PM. Current Outpatient Medications (Ophthalmic Agents) Medication Sig Dispense Refill Koppygxlymr-Yodvahav-Gigvlbgbu 1-0.5-0.075 % solution Administer 1 drop into [...] before bedtime. cholecalciferol (Vitamin D-3) 50 MCG (2000 UT) capsule Take 1 capsule every day [...] @ 3:30 PM Additional Tests Keratometry K1 Vulcan K2 Vulcan Right 44.75 99 45.25 9 Left 44.50 [...] Normal Normal Refraction Wearing Rx Sphere Cylinder Vulcan Add Right +0.25 -1.50 105 +2.50 Left +1.00 -1.50 113 +2.50 Age: 1yr Type: progress Manifest Refraction Sphere Cylinder Vulcan Right +0.50 -1.00 095 Left +1.25 -1.00 090 Final Rx Sphere Cylinder Vulcan Dist [place] Right +0.50 -1.00 095 20/40 [...] different lens options were explained including the lzk-om-tptelr fees for any upgrades. Intraocular lens (IOL) [...] laser capsulotomy, they are to notify their overhead foreman promptly if they have a significant change in symptoms, such as flashes of light (photopsia), an increase in floaters, loss of visual field or decrease in visual acuity. documented in this encounter [facility] 08-11-2024 History of Present illness Narrative Patient: [...] NARINDER (generalized anxiety disorder) (CMS/HCC) HLD (hyperlipidemia) ([facility]/HCC) Hoarseness of voice HTN (hypertension) (CMS/HCC) Lumbar [...] Insecurity: No Food Insecurity (07/02/2023) Received from [facility], [facility] Within the past 12 months [...] Partner Violence: Unknown (09/10/2023) [facility] [place] [facility] Environment Fear of Current [...] and negative PT pedal pulses NEURO: 5.07 Townsend Haroon monofilament test diminished to digits and forefoot bilaterally 125Hz tuning fork diminished to 1st MPJ bilaterally ORTHO: Positive pain on palpation to nails 1 through 10 ASSESSMENT 1. Diabetes mellitus due to underlying condition with diabetic polyneuropathy, unspecified whether fci insulin use ([facility]) 2. Pain due to onychomycosis of toenails [...] Phillip Bingham DPM documented in this encounter [facility] 07-28-2024 Evaluation note Diagnosis Onset Date Resolution Primary osteoarthritis of left knee acute July 28 9:07am ASHD (arteriosclerotic heart disease) acute September 14 11:27am Elevated cholesterol acute 2024 11:27am Familial polyposis acute Februa ry 2024 11:27am Obstructive sleep apnea acute F ebruary 2024 11:27am Primary hypertension acute 2024 11:27am Screening PSA (prostate specific antigen) acute September 14, 2024 11:27am Type 2 diabetes mellitus with diabetic peripheral angiopathy without gangrene acute September 14 11:27am 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 September 14 11:27am Type 2 diabetes mellitus with hyperglycemia acute August 11:27am Medicare annual wellness visit, subsequent noneactive September 14, 2024 11:27am [facility] Work Phone: [phone]) 665-890211-19-2024 History of Present illness Narrative* Joanna Lin DO - 06/07/2024 12:30 PM EST Chief Complaint Patient presents with Sleep Apnea Subjective Lizzy Yee, 78 y.o., male is here for a follow up. He states that he is wearing his machine every night. His machine is supposed to turn on when he puts the mask on and it is not doing that. He has to turn it on. He states that his pressure seems good. His mask is not fitting right. He is supposed to go to [place] and get measured. Pt states that he [...] like a different mask but has not goneto get a new mask fit. He can [...] symptoms. He is now on ozempic for hissugars which is helping his weight but not [...] leading to daytime hypersomnolence and snoring. He isdoing well with the CPAP machine and compliant controlling his symptoms. He is using the machine 100 percent of the time greater than 4 hours average nightly usage 9 hours and 36 minutes and residualAHI of 0.4. He is set at BiPAP [...] the left and bilateral carpal tunnel syndrome. Didhave a carpal tunnel release on the right [...] on control and would like to minimize anyexposure to steroids which is reasonable. Plan Download was reviewed and he is compliant Consider a repeat carpal tunnel injection pending his course Be more aggressive with diet and exercise to control the sugars Continue with a new CPAP machine Consider repeat EMG to look for severity. The patient was counseled on the risks of stroke, HI, and sudden with BHUPENDRA, along with the [...] instructions Return to clinic: documented [facility] encounter[id number] History of Present illness Narrative* Phillip Bingham DPM - 06/02/2024 2:30 PM EST Patient: Lizzy Yee : 1945 PCP: Juancarlos [...] and has been using prescribed or recommended wwfj-ibu-sxdlyvl cream with positive improvement. Allergies: No Known Allergies Past Medical History: Past Medical History: Diagnosis Date Anxiety Arthritis BPH (benign prostatic hyperplasia) BPPV (benign paroxysmal positional vertigo) CAD (coronary artery disease) (CMS/HCC) Colon polyp Depression ([facility]/HCC) DM polyneuropathy ([facility]/HCC) NARINDER (generalized anxiety disorder) ([facility]) HLD (hyperlipidemia) ([facility]) Hoarseness of voice HTN (hypertension) ([facility]) Lumbar spondylosis Mitral regurgitation OA (osteoarthritis) BHUPENDRA [...] Insecurity: No Food Insecurity (07/02/2023) Received from [facility], [facility] Hunger Screening Within the past 12 months [...] Partner Violence: Unknown (09/10/2023) [facility] [place] [facility] Fear of Current [...] and negative PT pedal pulses NEURO: 5.07 Townsend Haroon monofilament test diminished to digits and forefoot bilaterally 125Hz tuning fork diminished to 1st MPJ bilaterally ORTHO: Positive pain on palpation to nails 1 through 10 ASSESSMENT 1. Diabetes mellitus due to underlying condition with diabetic polyneuropathy, unspecified whether manager terminal insulin use ([facility]) 2. Pain due to onychomycosis of toenails [...] daily Phillip Bingham DPM documented in this encounter[facility] [id number] [facility] Chief Complaint: [...] common femoral artery. Surgeon: Jyoti Mccurdy Primary Swabber: None. Anesthesia: Local with 1% lidocaine and sedation. EBL: 10 cc Complications: None. 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 Procedure: Patient was brought to the angiogram suite. He was placed on the table in supine position. Left groin area was prepped and draped in the usual sterile fashion. Patient was give (more content not included)...[facility]04-10-2024 Miscellaneous Notes* Telephone Encounter - Efrain Zamarripa RN - 10/28/2023 8:29 AM EDT Returned call and spoke with patient. She reports the patient had the MRI; there were concerned themesh may be an issue. Explained the mesh would not effect the MRI. She states her understanding andis appreciative of the call. * Telephone Encounter - Wendi De La Paz - 10/27/2023 9:52 AM EDT Patient contacted the office of Dr. Gonzalez to advise that has MRI scheduled today at 12:45 and asked is they should be concerned with his mesh and being able to complete test today. Also inquiring if the office received mailed disc with imaging as well. Patient and or can be reached at [phone]. Thank you. Wendi Traore documented [facility]* Encounter Date Diagnosis Assessment Notes Treatment Notes Treatment Clinical Notes Jul, Other Summary of Visi t: (A) Meal timing (B) DM2 nutrition education (C) Answered general, nutrition-related questions [facility] Other 11-28-2023 Evaluation note* Encounter Date Diagnosis Assessment Notes Treatment Notes Treatment Clinical Notes May, Type 2 diabetes mellitus with hyperglycemia, without long-term current use of insulin (ICD-10 - E11.65) [facility] Other 11-28-2023 Evaluation note* Encounter Date Diagnosis Assessment Notes Treatment Notes Treatment Clinical Notes May, Primary hypertension (ICD-10 - I10) [facility] Other 11-21-2023 Evaluation note* Encounter Date Diagnosis Assessment Notes Treatment Notes Treatment Clinical Notes May, Type 2 diabetes mellitus with hyperglycemia, without long-term current use of insulin (ICD-10 - E11.65) [facility] Other 11-17-2023 Evaluation note* Encounter Date Diagnosis [...] use, the patient reduces the risk for HI, CVA, HTN, cardiac dysrhythmias and sudden cardiac [...] index [BMI] 39.0-39.9, adult (ICD-10 - Z68.39) [facility] Other 11-08-2023 Evaluation note* Encounter Date Diagnosis Assessment Notes Treatment Notes Treatment Clinical Notes May, Primary hypertension (ICD-10 - I10) [facility] Other 10-29-2023 Evaluation note* Encounter Date Diagnosis Assessment Notes Treatment Notes Treatment Clinical Notes Apr, Type 2 diabetes mellitus with hyperglycemia, without long-term current use of insulin (ICD-10 - E11.65) Apr, Primary hypertension (ICD-10 - I10) [facility] Other 10-19-2023 Evaluation note* Encounter Date Diagnosis Assessment Notes Treatment Notes Treatment Clinical Notes Apr, Type 2 diabetes mellitus with hyperglycemia, without long-term current use of insulin (ICD-10 - E11.65) [facility] Other 10-18-2023 Evaluation note* Encounter Date Diagnosis Assessment Notes Treatment Notes Treatment Clinical Notes Apr, ASHD (arteriosclerotic heart disease) (ICD-10 - I25.10) This patient is stable without activity related CP, dyspnea or lightheadedness. They are instructed to continue exercise and AHA diet plan. Continue secondary prevention measures. Bee Producer suggesting SGLT-2 for dual benefit w/ ASHD [...] contributed. 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 Inspect feet daily for cuts. Continue secondary prevention measures. Scheduled post op JAMIR [facility] Other 10-18-2023 Evaluation note* Encounter Date Diagnosis Assessment Notes Treatment Notes Treatment Clinical Notes Apr, Type 2 diabetes mellitus with hyperglycemia, without long-term current use of insulin (ICD-10 - E11.65) [facility] Other 08-22-2023 Evaluation note* Encounter Date Diagnosis [...] use, the patient reduces the risk for HI, CVA, HTN, cardiac dysrhythmias and sudden cardiac [...] [BMI ] 39.0-39.9, adult (ICD-10 - Z68.39) [facility] Other 05-31-2023 NoteOPERATIVE NOTE OPERATION DATE: 11/29/2022 [...] years. CC: Juancarlos Cuenca D.O.[facility] [id number] NotePROCEDURE: XR HIP LT 2 3V WO PELVIS HISTORY: Pain of left hip joint COMPARISON: None. FINDINGS: BONES:No fracture, acute abnormality, or significant arthropathy. SOFT TISSUES:No visible soft tissue swelling. EFFUSION:None visible. OTHER: Negative. IMPRESSION: 1. No acute bone abnormality. 2. Mild degenerative joint disease. Electronically authenticated by: GABY PADILLA Date: 2022-11-28 13:[address] [place], [place] 8404704-11-2023 NoteCONSULTATION CONSULTATION DATE: 10/28/2022 TO: Juancarlos Cuenca [...] our patients to inform us about any vaav-cgn-rxntmlw medications or herbal remedies/nutritional supplements/alternative remedies. 2. [...] with their primary care provider.[facility] [id number] History of Present illness Narrative* Jay Gonzalez MD - 10/16/2022 2:38 PM EDT [facility] Abdominal Core Health - Follow Up [...] Gonzalez MD 10/16/22, 2:45 PM General Surgery [facility] * Destiny Zapata MA - 10/16/2022 1:09 PM EDT What is the reason for your visit today? Follow up 1 year Who is your referring physician? Are you having poor oral intake? NO Have you had unintentional weight loss of 15 lbs/7 Kg in the last 3-6 months? NO Bowels: regular Wound: Temperature: No Drains: No documented in this encounterMet[facility]03-25-2023 Miscellaneous Notes* Allied Health - [...] 11, 2022 10:29 AM documented in this encounterMet[facility]03-21-2023 Miscellaneous Notes* Telephone Encounter - [...] so at a non cc facility. PH: [phone] documented in this encounterMet[facility]02-24-2023 Evaluation note* Encounter Date Diagnosis Assessment Notes Treatment Notes Treatment Clinical Notes Aug, Left carotid artery stenosis (ICD-10 - I65.22) US: right <50%, left 50-69% - 10/2020 US: right <50%, left 80-90% - 08/2022 [facility] Other 02-20-2023 Evaluation note* Encounter Date Diagnosis [...] use, the patient reduces the risk for HI, CVA, HTN, cardiac dysrhythmias and sudden cardiac [...] reviewed and amended by provider signed below. [facility] Other 01-12-2023 NoteCONSULTATION PROCEDURE DATE: 09/18/2022 PREOPERATIVE [...] followed up in the office.[facility] [id number] NoteCONSULTATION CONSULTATION DATE: 07/31/2022 HISTORY OF PRESENT [...] patient agrees with this plan.[facility] 05-29-2022 NoteCONSULTATION CONSULTATION DATE: 05/29/2022 HISTORY OF [...] up in the clinic thereafter.[facility] [id number] NoteCONSULTATION CONSULTATION DATE: 04/24/2022 This is a [...] Tavia's point is nontender bilaterally with negative Krsiten's and compression test. 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 A refill for Baclofen 10 mg q.h.s. [...] The patient is in agreement.[facility] [id number] Note CONSULTATION CONSULTATION DATE: 03/25/2022 CHIEF COMPLAINT: 1. Low back pain. 2. Left knee pain. HISTORY OF PRESENT ILLNESS: This is a very pleasant, 76-year-old male, who is known to the pain practice remote. The patient had a right total knee replacement at [facility]. The patient is doing well [...] and would like to proceed.[facility] 01-27-2022 Nurse Note* Sarah Osman MA - [...] Temperature: No Drains: No documented in this encounterMetro[facility]07-11-2022 History of Present illness Narrative* [...] needed. Jus Medina MD documented in this encounterMet[facility]03-25-2022 Miscellaneous Notes* Telephone Encounter - Shan Parham - 10/11/2021 3:09 PM EDTSummary: IRB#: [id number] Research Outreach IRB# [id number], Qualitative Interviews in Postoperative Gastrointestinal Dysfunction (POGD). PI: Shilpa Storm MD, SANJIV, FASA. Outcomes Research Department. [facility] [place]. This is a research study note. Patient [...] there for his review. Shan Parham Research Swabber [facility] [place] Outcomes Research Department documented in this encounterMetrohealth [facility]03-24-2022 History of Present illness Narrative* Jay Gonzalez MD - 10/10/2021 1:37 PM EDT [facility] Abdominal Core Health - Follow Up [...] the care that he received while at [facility]. Objective: AAOx3, NAD Non-labored respirations on room [...] Gonzalez MD 10/10/21, 1:37 PM General Surgery [facility] documented in this encounterMet[facility]03-24-2022 History of Present illness Narrative* Jus Medina MD - 10/10/2021 11:00 AM EDT HPI Lizzy Yee is a 75 year old male here today for postop Open subtotal colectomy with stapled ydee-oj-jjag ileosigmoid anastomosis ventral herniorrhaphy with transversus abdominus [...] months Jus Medina MD documented in this encounterMet[facility]03-24-2022 Nurse Note* Elena Ferrell MA - 10/10/2021 10:45 AM EDT What is the reason for your visit today? Follow up Who is your referring physician? Self Are you having poor oral intake? NO Have you had unintentional weight loss of 15 lbs/7 Kg in the last 3-6 months? NO Bowels: regular Wound: none Temperature: No Drains: No documented in this encounterMetro[facility]03-08-2022 History of Past illness Narrative* Problem Noted Date Resolved Date 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 documented as of this encounter (statuses as of 10/10/2021) [address]08-2022 History of Past illness Narrative* Problem Noted Date Resolved Date 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 documented as of this encounter (statuses as of 10/10/2021) [address]08-2022 History of Past illness Narrative* Problem Noted Date Resolved Date 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 documented as of this encounter (statuses as of 10/11/2021) [address]08-2022 History of Past illness Narrative* Problem Noted Date Resolved Date 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 documented as of this encounter (statuses as of 02/05/2022) [facility] History of Past illness Narrative* Problem Noted Date Resolved Date 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 documented as of this encounter (statuses as of 10/07/2022) [address]08-2022 History of Past illness Narrative* Problem Noted Date Resolved Date 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 documented as of this encounter (statuses as of 10/12/2022) [address]08-2022 History of Past illness Narrative* Problem Noted Date Resolved Date 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 documented as of this encounter (statuses as of 10/12/2022) [address]08-2022 History of Past illness Narrative* Problem Noted Date Resolved Date 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 documented as of this encounter (statuses as of 10/16/2022) [address]08-2022 History of Past illness Narrative* Problem Noted Date Diagnosed Date Resolved Date 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 documented as of this encounter (statuses as of 10/28/2023) [facility]06-[facility] NoteMR#: [id number] 2 [facility] Pt. Name: Lizzy Yee Admitted: 12/26/2020 Discharged: 12/29/2020 Date of : 1945 Physician: Ty Avalos M.D. DISCHARGE SUMMARY [facility] Pt. Name: Kurt Yee Admitted: 12/26/20 Discharged: [...] CONDITION AT DISCHARGE: Stable DISPOSITION: Home with [facility] DISCHARGE INSTRUCTIONS: Take medications as prescribed, [...] Cano MD Date Trans: 12/29/2020 08:18 P/ BARRETT_JN:[id number] cc: Juancarlos Cuenca D.O. [address] [place] [address] A [facility] [id number] Health SystemEvaluation + Plan note No data available for this section [facility]* Diagnosis Ventral incisional hernia- Primary documented in this encounter [facility] note* Diagnosis Polyposis of colon- Primary Benign neoplasm of colon documented in this encounter [facility] note* Diagnosis Polyposis of colon- Primary Benign neoplasm of colon Incisional hernia, without obstruction or gangrene Incisional hernia without mention of obstruction or gangrene documented in this encounter [facility] noteNo [employer] Other Evaluation note* Diagnosis Ventral incisional hernia documented in this encounter [facility] note* Diagnosis Ventral incisional hernia- Primary [facility] Diagnosis Onset Date Resolution Status ASHD (arteriosclerotic heart disease) acute Elevated cholesterol acute NARINDER (generalized anxiety disorder) acute Obesity acute Obstructive sleep apnea acut e Primary hypertension acute [id number] acute [id number] acute ASHD (arteriosclerotic heart disease) acute Elevated cholesterol acute Obstructive sleep apnea acut e Primary hypertension acute Type 2 diabetes mellitus wit h diabetic peripheral angiopathy without gangrene acute 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 Type 2 diabetes mellitus with hyperglycemia acute [facility] Work Phone: Evaluation note* Diagnosis Onset Date Resolution Status ASHD (arteriosclerotic heart disease) acute Elevated cholesterol acute NARINDER (generalized anxiety disorder) acute Obesity acute Obstructive sleep apnea acut e Primary hypertension acute [id number] acute ASHD (arteriosclerotic heart disease) acute Elevated cholesterol acute Obstructive sleep apnea acut e Primary hypertension acute Type 2 diabetes mellitus wit h diabetic peripheral angiopathy without gangrene acute 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 Type 2 diabetes mellitus with hyperglycemia acute Primary osteoarthritis of left knee acute [facility] Work Phone: Evaluation note* Diagnosis BHUPENDRA (obstructive sleep apnea)- Primary Obstructive sleep apnea (adult) (pediatric) Hyposomnia Insomnia, unspecified Snoring Other dyspnea and respiratory abnormality Carpal tunnel syndrome, bilateral Carpal tunnel syndrome Paresthesias Disturbance of skin sensation Ulnar neuropathy, unspecified laterality [facility]* Diagnosis Diabetes mellitus due to underlying condition with diabetic polyneuropathy, unspecified whether fci insulin use (CMS/HCC)- Primary Pain due to onychomycosis of toenails of both feet Xerosis cutis Other specified disease of sebaceous glands documented [facility] this [facility] Healthcare[facility]* Diagnosis Xerosis cutis- Primary Other specified disease of sebaceous glands Diabetes mellitus due to underlying condition with diabetic polyneuropathy, unspecified whether fci insulin use (CMS/[facility]) Onychomycosis Dermatophytosis of nail Toe pain, bilateral documented in this encounter [facility] HealthcareEvaluation note* Diagnosis Diabetes mellitus due to underlying condition with diabetic polyneuropathy, unspecified whether fci insulin use ([facility])- Primary Pain due to onychomycosis of toenails of both feet Xerosis cutis Other specified disease of sebaceous glands documented in this encounter [facility] HealthcareEvaluation note* Diagnosis Age-related nuclear cataract of right eye- Primary Left posterior capsular opacification Unspecified after-cataract documented in this encounter [facility] HealthcareEvaluation note* Diagnosis Preop examination- Primary Preoperative examination, unspecified Polyp of colon, unspecified part of colon, unspecified type Abdominal hernia without obstruction and without gangrene, recurrence not specified, unspecified hernia type ASHD (arteriosclerotic heart disease) Coronary atherosclerosis of unspecified type of vessel, upper sioux or graft Sleep apnea, unspecified type Hypertension, unspecified type Hyperlipidemia, unspecified hyperlipidemia type Type 2 diabetes mellitus without complication, without long-term current use of insulin ([facility]) Antiplatelet or antithrombotic long-term use Encounter for long-term (current) use of antiplatelets/antithrombotics Obesity (BMI 30-39.9) Obesity, unspecified S/P repair of ventral hernia- Primary Other postprocedural status documented in this encounter [facility] general Narrative - Reported* Type Description [...] RIGHT HEMICOLECTOMY 2003 Hospitalization History SEE SURGICAL [facility] Other History general Narrative - Reported* Type [...] History Colonoscopy 12/2022 Hospitalization History SEE SURGICAL [facility] Other History general Narrative - Reported* Type [...] anaya 03/2023 Hospitalization History SEE SURGICAL HX [facility] Other History of Present illness Narrative* Phillip Bingham, TERRY - 03/24/2024 2:30 PM EDT Patient: Lizzy [...] and has been using prescribed or recommended wudn-qnn-szmzkdi cream with positive improvement. Allergies: No Known Allergies Past Medical History: Past Medical History: Diagnosis Date Anxiety Arthritis BPH (benign prostatic hyperplasia) BPPV (benign paroxysmal positional vertigo) CAD (coronary artery disease) (CMS/HCC) Colon polyp Depression ([facility]/HCC) DM polyneuropathy ([facility]/HCC) NARINDER (generalized anxiety disorder) ([facility]) HLD (hyperlipidemia) ([facility]) Hoarseness of voice HTN (hypertension) (CMS/HCC) Lumbar [...] Insecurity: No Food Insecurity (07/02/2023) [facility] [employer] [facility]ger Screening Within the past 12 months [...] Partner Violence: Unknown (09/10/2023) [facility] [place] [facility] Fear of Current [...] and negative PT pedal pulses NEURO: 5.07 Townsend Haroon monofilament test diminished to digits and forefoot bilaterally 125Hz tuning fork diminished to 1st MPJ bilaterally ORTHO: Positive pain on palpation to nails 1 through 10 ASSESSMENT 1. Xerosis cutis 2. Diabetes mellitus due to underlying condition with diabetic polyneuropathy, unspecified whether fci insulin use ([facility]) 3. Onychomycosis 4. Toe pain, bilateral PLAN [...] daily Phillip Bingham DPM documented in [facility]Con[facility] Discharge instructions No data available for this section [facility] Center[facility] note No data available for this section [facility] CenterReason for referral (narrative)* Reason 10/09/22 Referral for carotid artery stenosis Diagnosis 1 Left carotid artery stenosis (I65.22) Referral Organization [facility] Referring Provider First Name Juancarlos Referring Provider Last Name Bang Referring Provider Specialty Internal Me dicine Referred Organization [facility] Referred Provider Jyoti Mccurdy Referred Address [address], [place],[address] Referred Provider Specialty Vascular Ruslan kajal Referral Priority Routine Referral Appointment Date 2022-10-09 General Notes Mr. Hooper is being r eferred for carotid artery stenosis. He recently completed carotid artery US at [facility], which revealed 87% left carotid bulb stenosis. The ICA velocities are not elevated, which was suggested to be due to hemodynamically significant stenosis in the left bulb. Seema Jaquez 09/23/2022 01:11:23 PM >received today, attachments made, referral faxed Janae Fulton 09/29/2022 02:11:56 PM > Patient is scheduled on 10/09 at 10 a.m. at [place] office Clinical Notes Mr. Hooper is being r eferred for further evaluation and treatment of left carotid artery stenosis. He has multiple risk factors, including HTN, HLD, DM and PAD. He has no history of TIA or CVA. He denies diplopia, loss of vision, dysarthria, facial droop or unilateral extremity weakness. F: [id number] [employer] Other Summary Purpose Family History No Family [...] FoundDocuments on File Type Date Recorded Patient Bank Accountant Expl anation Advance Directive(s) 09/24/2021 8:40 AM Advance Directive(s) 06/07/2021 10:19 AM Advance Directive(s) 05/15/2021 3:36 PM M ain Documents on File Type Date Recorded Patient Bank Accountant Expl anation Advance Directive(s) 09/24/2021 8:40 AM Advance Directive(s) 06/07/2021 10:19 AM Advance Directive(s) 05/15/2021 3:36 PM M ain Documents on File Type Date Recorded Patient Bank Accountant Expl anation Advance Directive(s) 09/24/2021 8:40 AM Documents on File Type Date Recorded Patient Bank Accountant Expl anation Advance Directive(s) 09/24/2021 8:40 AM Advance Directive Response Recorded Date/ Time Advance Directives No August 05, 2023 12:06pm Advance Directive Response Recorded Date/ Time Advance Directives No May 20, 2024 11:08am Reason for Referral Specialty Diagnoses / Procedures Referred By Contac t Referred To Contact CT IMAGING Diagnoses Ventral incisional hernia Procedures CT ABD/PEL WO IVCON CT ABD & PELVIS W/O CONTRAST Jay Gonzalez MD [facility] [place] [address] Ct Imaging Referral ID Status Reason Start Date Expiration Date Visits Requested Visits Authorized [id number] Pending Review Auto-Generat ed Referral 10/10/2022 11/09/2022 1 1 Referral ID Status Reason Start Date Expiration Date V isits Requested Visits Authorized [id number] Closed Auto-Generate d Referral 10/10/2022 11/09/2022 1 1 Specialty Diagnoses / Procedures Referred By Olegario t Referred To Contact CT IMAGING Diagnoses Ventral incisional hernia Procedures CT ABD/PEL WO IVCON CT ABD & P[place] [address] [place] [address] Ct Imaging Referral ID Status Reason Start Date Expiration Date Visits Requested Visits Authorized [id number] Pending Review Auto-Generat ed Referral 10/16/2022 11/15/2023 1 1 Chief Complaint and Reason for Visit Chief Complaint WMN f/u DL 10-14 day DS 3 month follow up Reason for Visit ASHD (arteriosclerot ic heart disease) Elevated cholesterol NARINDER (generalized anxiety disorder) Obesity Obstructive sleep apnea Primary hypertension [id number] ASHD (arteriosclerotic heart disease) Elevated cholesterol Obstructive [...] disorder) Obesity Obstructive sleep apnea Primary hypertension [id number] ASHD (arteriosclerotic heart disease) Elevated cholesterol Obstructive sleep apnea Primary hypertension Type 2 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 Type 2 diabetes mellitus with hyperglycemia Primary osteoarthritis of left knee Chief Complaint Admit Date 3 MONTHS July 28, 2024 9: 07am 3 month f/u September 14, 2024 11:27am Reason for Visit Admit Date Primary osteoarthritis of left knee Arturo dony 2024 9:07am ASHD (arteriosclerotic heart disease) Fe bruary 2024 11:27am Elevated cholesterol September 14, 2024 11:27am Familial polyposis September 14, 2024 11:27am Obstructive sleep apnea September 14, 025 11:27am Primary hypertension September 14, 2024 11:27am Screening PSA (prostate specific antigen ) September 14, 2024 11:27am Type 2 diabetes mellitus wit h diabetic peripheral angiopathy without gangrene September 14, 2024 11:27am Type 2 diabetes mellitus with diabetic p olyneuropathy September 14, 2024 11:27am Type 2 diabetes mellitus with hyperglyce wolf September 14, 2024 11:27am Medicare annual wellness visit, subseque nt September 14, 2024 11:27am Additional Source Comments (unrecognized sect ion and content) No Status Records FoundNo Status Records FoundNo Status Records FoundNo Status Records FoundNo Status Records FoundNo Status Records FoundNo Status Records FoundNo Status Records FoundNo Status Records Found INFORMATION SOURCE (unrecogn ized section and content) DATE CREATED AUTHOR 03/11/2021 [facility] DATE CREATED AUTHOR AUTHOR'S ORGANIZ ATION 10/13/2022 [facility] DATE CREATED AUTHOR AUTHOR'S ORGANIZ ATION 12/29/2022 [facility] DATE CREATED AUTHOR AUTHOR'S ORGANIZ ATION 12/29/2022 Corona Anthony [facility] DATE CREATED AUTHOR AUTHOR'S ORGANIZ ATION 04/18/2024 [facility] DATE CREATED AUTHOR AUTHOR'S ORGANIZ ATION 04/23/2024 [facility] DATE CREATED AUTHOR AUTHOR'S ORGANIZ ATION 05/14/2024 [facility] DATE CREATED AUTHOR AUTHOR'S ORGANIZ ATION 10/06/2024 [facility] DATE CREATED AUTHOR AUTHOR'S ORGANIZ ATION 10/23/2024 [facility] Source Comments (unrecognize d section and content) In the event this informatio n is protected by the Federal Confidentiality of Alcohol and Drug Abuse Patient Records regulations: The Federal rules restrict any use of the information to criminally investigate or prosecute any alcohol or drug abuse patient.[facility] CenterIn the event this information is protected by the Federal Confidentiality of Alcohol and Drug Abuse Patient Records regulations: The Federal rules restrict any use of the information to criminally investigate or prosecute any alcohol or drug abuse patient.[facility] CenterIn the event this information is protected by the Federal Confidentiality of Alcohol and Drug Abuse Patient Records regulations: The Federal rules restrict any use of the information to criminally investigate or prosecute any alcohol or drug abuse patient.[facility] CenterIn the event this information is protected by the Federal Confidentiality of Alcohol and Drug Abuse Patient Records regulations: The Federal rules restrict any use of the information to criminally investigate or prosecute any alcohol or drug abuse patient.[facility] CenterIn the event this information is protected by the Federal Confidentiality of Alcohol and Drug Abuse Patient Records regulations: The Federal rules restrict any use of the information to criminally investigate or prosecute any alcohol or drug abuse patient.[facility] CenterIn the event this information is protected by the Federal Confidentiality of Alcohol and Drug Abuse Patient Records regulations: The Federal rules restrict any use of the information to criminally investigate or prosecute any alcohol or drug abuse patient.[facility] CenterIn the event this information is protected by the Federal Confidentiality of Alcohol and Drug Abuse Patient Records regulations: The Federal rules restrict any use of the information to criminally investigate or prosecute any alcohol or drug abuse patient.[facility] CenterIn the event this information is protected by the Federal Confidentiality of Alcohol and Drug Abuse Patient Records regulations: The Federal rules restrict any use of the information to criminally investigate or prosecute any alcohol or drug abuse patient.[facility] CenterIn the event this information is protected by the Federal Confidentiality of Alcohol and Drug Abuse Patient Records regulations: The Federal rules restrict any use of the information to criminally investigate or prosecute any alcohol or drug abuse patient.[facility] CenterIn the event this information is protected by the Federal Confidentiality of Alcohol and Drug Abuse Patient Records regulations: The Federal rules restrict any use of the information to criminally investigate or prosecute any alcohol or drug abuse patient.[facility] Reason for Visit (unrecogniz ed [...] PELVIS W/O CONTRAST Jay Gonzalez MD [address] [place] [address] Imaging Referral ID Status Reason Start Date Expiration Date V isits Requested Visits Authorized [id number] Closed Auto-Generate d Referral 10/10/2022 11/09/2022 1 1 Reason Comments Follow Up 1 year, ventral inci sional hernia Reason Comments Sleep Apnea Reason Comments DM Foot Care Dm Nails Reason Comments DM Foot Care Dm nail care Reason Comments Cataract Blurred Vision Reason Comments Follow Up 3 yr Care Teams (unrecognized sec tion and content) [...] April 21, 2024 End: April 21, 2024 Pricing Lead Relationship Specialty Start Date End Date Juancarlos Cuenca DO PCP - General Internal Medicine 10/23/14 Pedro Richardson [address] [place] [phone] Cardiology 09/13/21 Pricing Lead Relationship Specialty Start Date End Date Juancarlos Cuenca, DO PCP - General Internal Medicine 10/23/14 Pedro Richardson [address] [facility] [place] [phone] Cardiology 09/13/21 Pricing Lead Relationship Specialty Start Date End Date Juancarlos Cuenca, DO PCP - General Internal Medicine 10/23/14 Pedro Richardson [address] [facility] [place] [phone] Cardiology 09/13/21 Pricing Lead Relationship Specialty Start Date End Date Juancarlos Cuenca, DO PCP - General Internal Medicine 10/23/14 Pedro Richardson MD Cardiology 09/13/21 Pricing Lead Relationship Specialty Start Date End Date Juancarlos Cuenca DO PCP - General Internal Medicine 10/23/14 Pedro Richardson MD Cardiology 09/13/21 Pricing Lead Relationship Specialty Start Date End Date Juancarlos Cuenca, DO PCP - General Internal Medicine 10/23/14 Pedro Richardson MD Cardiology 09/13/21 Pricing Lead Relationship Specialty Start Date End Date Juancarlos Cuenca, DO PCP - General Internal Medicine 10/23/14 Pedro Richardson MD Cardiology 09/13/21 Pricing Lead Relationship Specialty Start Date End Date Juancarlos Cuenca DO PCP - General Internal Medicine 10/23/14 Pedro Richardson MD Cardiology 09/13/21 Pricing Lead Relationship Specialty Start Date End Date Juancarlos [...] December 08, 2023 End: December 08, 2023 Pricing Lead Relationship Specialty Start Date End Date Juancarlos Cuenca MD [address] [place] [address] PCP - General Internal Medicine 10/01/23 Joanna Lin DO [address] [place] [address] Referring Physician Neurology 10/20/23 Pricing Lead Relationship Specialty Start Date End Date Juancarlos Cuenca MD [address] [place] [phone] PCP - General Internal Medicine 10/01/23 Joanna Lin DO [address] [place] [address] Referring Physician Neurology 10/20/23 Pricing Lead Relationship Specialty Start Date End Date Juancarlos Cuenca MD [address] [place] [phone] PCP - General Internal Medicine 10/01/23 Joanna Lin DO [address] [place] [address] Referring Physician Neurology 10/20/23 Pricing Lead Relationship Specialty Start Date End Date Juancarlos Cuenca MD [address] [place] [address] PCP - General Internal Medicine 10/01/23 Joanna Lin DO [address] [place] [address] Referring Physician Neurology 10/20/23 Pricing Lead Relationship Specialty Start Date End Date Juancarlos Cuenca MD [address] [facility] [place] [phone] PCP - General Internal Medicine 10/01/23 Joanna Lin DO [address] [facility] [place] [address] Referring Physician Neurology 10/20/23 Pricing Lead Relationship Specialty Start Date End Date Juancarlos Cuenca MD [address] [facility] [place] [address] PCP - General Internal Medicine 10/01/23 Joanna Lin DO [address] [place] [address] Referring Physician Neurology 10/20/23 Pricing Lead Relationship Specialty Start Date End Date Juancarlos Cuenca MD [address] [facility] [place] [address] PCP - General Internal Medicine 10/01/23 Joanna Lin DO [address] [place] [id number] Referring Physician Neurology 10/20/23 Pricing Lead Relationship Specialty Start Date End Date Juancarlos Cuenca MD [address] [facility] [place] [address] PCP - General Internal Medicine 10/01/23 Joanna Lin DO [address] [place] [address] Referring Physician Neurology 10/20/23 Pricing Lead Relationship Specialty Start Date End Date Juancarlos Cuenca MD [address] [facility] [place] [phone] PCP - General Internal Medicine 10/01/23 Joanna Lin DO [address] [place] [address] Referring Physician Neurology 10/20/23 Mary Kate Shine MD [address] [place] [address] Referring Physician Optometry 08/24/24 Team Status: Inactive Member Role Status Dates Juancarlos Cuenca DO Primary Care Provider Active Start: July 28, 2024 End: July 28, 2024 Ej Anthony II, MD Attending Provider Active Start: July 28, 2024 End: July 28, 2024 Team Status: Active Member Role Status Dates Juancarlos Cuenca DO Primary Care Provider Active Start: August 27, 2024 Pedro Richardson Attending Provider Active Start: August 27, 2024 Team Status: Inactive Member Role Status Dates Juancarlos Cuenca DO Primary Care Provide r, Attending Provider Active Start: September 14, 2024 End: September 14, 2024 Pricing Lead Relationship Specialty Start Date End Date Juancarlos Cuenca DO PCP - General Internal Medicine 10/23/14 Pedro Richardson MD Cardiology 09/13/21 Goals (unrecognized section and content) Goals may [...] BE BASED ON THE PRIMARY CLINICAL RECORDS. [employer] provides no warranty or guarantee of the accuracy or completeness of information in this document.
[2024-10-27 10:35] LABS: Basophils Percent Auto 0.4 % (0.2-2.0); Eosinophils Absolute Auto 0.2 10^3/uL (0.0-0.7); Eosinophils Percent Auto 2.7 % (0.9-7.0); Hematocrit 40.9 % (42.0-54.0); Hemoglobin 14.1 g/dL (14.0-18.0); Immature Granulocytes Abs Auto 0.01 10^3/uL (0.00-0.03); Immature Granulocytes Pct Auto 0.1 % (0.0-0.5); Lymphocytes Absolute Auto 1.9 10^3/uL (1.2-3.8); Lymphocytes Percent Auto 25.5 % (20.5-60.0); Mean Corpuscular HGB Conc 34.5 g/dL (29.9-35.2); Mean Corpuscular Hemoglobin 31.4 pg (25.9-34.0); Mean Corpuscular Volume 91.1 fL (80.0-94.0); Mean Platelet Volume 10.2 fL (9.5-13.5); Monocytes Absolute Auto 0.7 10^3/uL (0.3-0.8); Neutrophils Absolute Auto 4.5 10^3/uL (1.4-6.5); Neutrophils Percent Auto 61.3 % (43.0-75.0); Platelet Count 197 10^3/uL (150-450); Red Blood Count 4.49 10^6/uL (4.70-6.10); Red Cell Distribution Width 13.4 % (11.0-15.0); White Blood Count 7.3 10^3/uL (4.0-11.0)
[2024-10-27 11:09] LABS: Estimated Average Glucose 192 mg/dL; Glycohemoglobin A1C 8.3 % (4.5-6.2)
[2024-10-27 11:41] LABS: Creatinine Urine Random 104.11 mg/dL (20.00-300.00); Microalbum Creatinine Ratio Ur 13.4 mg/g (0.0-29.9); Microalbumin Urine Random 1.4 mg/dL (<=30.0)
[2024-10-27 11:42] LABS: Alanine Aminotransferase 22 U/L (16-63); Albumin Globulin Ratio 1.1; Albumin Level 3.6 g/dL (3.4-5.0); Alkaline Phosphatase 125 U/L (46-116); Anion Gap 14.1; Aspartate Amino Transferase 15 U/L (15-37); BUN Creatinine Ratio 21.1; Bilirubin Total 0.8 mg/dL (0.2-1.0); Calcium 9.3 mg/dL (8.5-10.1); Carbon Dioxide 26.5 mmol/L (21.0-32.0); Chloride 104 mmol/L (98-107); Chol HDL Ratio 2.2; Cholesterol 103 mg/dL (<=200); Estimated GFR (African America 56 (>=60 mL/min/1.73m^2); Estimated GFR (Non-African Ame 46 (>=60 mL/min/1.73m^2); Globulin 3.4 g/dL; Glucose 122 mg/dL (74-106); HDL Cholesterol 46 mg/dL (40-60); Potassium 4.6 mmol/L (3.5-5.1); Sodium 140 mmol/L (136-145); Triglycerides 85 mg/dL (<=150)
[2024-10-27 12:13] LABS: Prostate Specific Antigen Scrn 0.38 ng/mL (<=4.00)
== END 2024-10-27 10:16 | disposition home or self-care (01) ==
LOC: LAB 10:16
PROVIDERS: PCP Internal Medicine; Visit Provider Internal Medicine
DX: E78.00 Pure hypercholesterolemia, unspecified (principal); E11.65 Type 2 diabetes mellitus with hyperglycemia; I25.10 Atherosclerotic heart disease of native coronary artery without angina pectoris; I10 Essential (primary) hypertension; Z12.5 Encounter for screening for malignant neoplasm of prostate
CPT/HCPCS: 36415; 80053; 80061; 82043; 82570; 83036; 85025; G0103

== ENCOUNTER 2024-11-18 14:22 | Outpatient (RCR) | payer MEDICARE, SELFPAY | END 2024-12-17 08:30 | disposition home or self-care (01) | LOC: OT 14:22 | PROVIDERS: PCP Internal Medicine; Visit Provider Orthopaedic Surgery | DX: I89.0 Lymphedema, not elsewhere classified (principal) | CPT/HCPCS: 97140; 97167; 97535 ==

== ENCOUNTER 2024-12-22 12:54 | Outpatient (OUT) | payer MEDICARE, SELFPAY ==
--- OUTSIDE RECORDS SUMMARY | 2024-12-22 12:56 | XMS_ITS | Encounter Summary ---
Author Organization [facility] Address [address] [place] [address] Care Team Providers Care Rock Picker Name Role Phone Juancarlos Gan Primary Care Provider Pedro Richardson MD Unavailable [phone] Source Comments In the event this information is protected by the Federal Confidentiality of Alcohol and Drug AbusePatient Records regulations: The Federal rules restrict any use of the information to criminally investigate or prosecute any alcohol or drug abuse patient.[facility] Encounter Details Date Type Department Care Team (Late st Contact Info) Description 10/08/2021 Patient Msg FV Provider Adult [address] [place], [place] [id number] Provider, Ccf Interview study participation Social History Tobacco Use Types Packs/Day Years Used Date Smoking Tobacco: Former Cigars Q uit: 1994 Smokeless Tobacco: Never Comments:Quit 15+ years Alcohol Use Standard Drinks/Week Comments Not Currently 0 (1 standard drink = 0.6 oz pur e alcohol) Area Deprivation Index Answer Date Farzad rded National Score (1-100), lower number is lower ri sk Not on file 05/06/2021 State Score (1-10), lower number is lower risk N ot on file 05/06/2021 Data from: https://www.neighborhoodatlas.medicine.[facility]/. Last address used for calculation Not on file 05/06/2021 Sex and Gender Information Value Date Recorded Sex Assigned at Not on file Legal Sex Male 1:40 PM EDT Gender Identity Not on file Sexual Orientation Not on file COVID-19 Exposure Response Date Recorded In the last month, have you been in contact with someone who was confirmed or suspected to have Coronavirus / COVID-19? No / Unsure 09/24/2021 10:32 AM EST documented as of this encounter Functional Status * Are you deaf or do you have serious difficulty hearing? Answer Date of Assessment Author No 10/01/2021 2:46 PM EDT Anshu Paris RN * Are you blind or do you have serious difficulty seeing, even when wearing glasses? Answer Date of Assessment Author No 10/01/2021 2:46 PM EDT Anshu Paris RN * Do you have serious difficulty walking or climbing stairs? Answer Date of Assessment Author No 10/01/2021 2:46 PM EDT Anshu Paris RN * Do you have difficulty dressing or bathing? Answer Date of Assessment Author No 10/01/2021 2:46 PM EDT Anshu Paris RN * Because of a physical, mental, or emotional condition, do you have difficulty doing errands alone such as visiting a doctor's office or shopping? Answer Date of Assessment Author No 10/01/2021 2:46 PM EDT Anshu Paris RN documented as of this encounter Mental Status * Because of a physical, mental, or emotional condition, do you have serious difficulty concentrating, remembering, or making decisions? Answer Entry Date Author No 10/01/2021 2:46 PM EDT Anshu Paris RN documented in this encounter Plan of Treatment Upcoming Encounters Date Type Department Care Team (Late st Contact Info) Description 10/24/2025 1:40 PM EDT Office Visit General Surgery [facility] [address] [place] [address] [place] [address] [place] [address] Est Pt: 1 yr f/up, s/p AWR 09/24/21 documented as of this encounter Visit Diagnoses Not on filedocumented in this encounter Care Teams Rock Picker Relationship Specialty Start Date End Date Juancarlos Gan DO PCP - General Internal Medicine 10/23/14 Pedro Richardson MD Cardiology 09/13/21 documented as of this encounter
--- OUTSIDE RECORDS SUMMARY | 2024-12-22 12:56 | XMS_ITS | Referral Summary ---
Author Organization [facility] Address [address] [place] [address] Care Team Providers Care Escalation Engineer Name Role Phone Juancarlos Gan DO Primary Care Provider [phone] Encounters Date Type Department Care Team Description 11/01/2024 Refill [facility] [address] [place] [address] Pedro Richardson MD Mixed hyperlipidemia from Last 3 Months Allergies No known active allergies Medications Medication Sig Dispensed Refills Start Date End Date Status aspirin 81 mg EC tablet in the morning. 03/14/2021 Active hydroCHLOROthiazide (HYDRODiuril) 25 mg tablet Take 25 mg by mouth in the morning. 02/27/2017 Active glipiZIDE (Glucotrol) 5 mg tablet glipizide 5 mg tablet TAKE 1 TABLET BY MOUTH EVERY DAY 30 MINUTES PRIOR TO BREAKFAST 03/11/2021 Active metFORMIN (Glucophage) 1,000 mg tablet metformin 1,000 mg tablet TAKE 1 TABLET BY MOUTH TWICE A DAY BEFORE BREAKFAST AND EVENING MEAL Active pantoprazole (ProtoNix) 40 mg EC tablet pantoprazole 40 mg tablet,delayed release TAKE 1 TABLET BY MOUTH DAILY ON EMPTY STOMACH FOLLOWED IN 30 MINUTES BY BREAKFAST 02/02/2017 Active lisinopril 5 mg tablet Take 5 mg by mouth in the morning. Active semaglutide (Ozempic) 0.25 mg or 0.5 mg (2 mg/3 mL) pen injector Inject under the skin every 7 (seven) days. Active cholecalciferol, vitamin D3, 50 mcg (2,000 unit) capsule Take 1 capsule every day by oral route. Active clopidogrel (Plavix) 75 mg tablet Take 75 mg by mouth in the morning. 01/23/2024 Active magnesium oxide 500 mg magnesium tablet Take 1 tablet by mouth in the morning. Active carvedilol (Coreg) 6.25 mg tabletIndications:Es sential hypertension Take 1 tablet (6.25 mg) by mouth with breakfast and with evening meal. 180 tablet 3 05/04/2024 Active atorvastatin (Lipitor) 80 mg tabletIndications:Mi xed hyperlipidemia Take 1 tablet (80 mg) by mouth at bedtime. 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 Abnormal findings on imaging of biliary tract 04/22/2023 Anticoagulated 04/22/2023 04/22/2023 Antiplatelet or antithrombotic long-term use 10/202204/22/2023 Overview (04/22/2023): Last Assessment & Plan: Assessment: DAPT Monitored by Cardiology Anxiety 04/22/2023 04/22/2023 Benign neoplasm of transverse colon 04/22/2023 04/22/2023 Benign paroxysmal positional vertigo 04/22/2023 04/22/2023 Benign prostatic hyperplasia with urinary obstru ction 04/22/2023 04/22/2023 Current smoker 04/22/2023 04/22/2023 Overview (04/22/2023): Added secondary to documentation in Social History. Added secondary to documentation in Social History. Diabetes mellitus 04/22/2023 04/22/2023 Feeling of incomplete bladder emptying 04/22/2023 Former smoker 04/22/2023 04/22/2023 Gastroesophageal reflux disease with esophagitis 04/22/2023 04/22/2023 History of colonic polyps 04/22/20232022 HLD (hyperlipidemia) 04/22/2023 04/22/2023 Overview (04/22/2023): Last Assessment & Plan: Assessment: managed with statin Increased frequency of urination 04/22/2023 04/22/2023 Nocturia 04/22/2023 04/22/2023 Morbid obesity 04/22/2023 04/22/2023 Obesity (BMI 30-39.9) 04/22/2023 04/22/2023 Overview (04/22/2023): Last Assessment & Plan: Assessment: Body mass index is 39.61 kg/m . Weight reduction encouraged. Post-void dribbling 04/22/2023 04/22/2023 Spondylosis of lumbar spine 04/22/202310/2022 Recurrent ventral incisional hernia 04/22/2023 04/22/2023 Claudication 03/10/2023 04/22/2023 Polyp of colon 06/07/2021 04/22/2023 Non-healing wound of lower extremity 04/09/2017 04/22/2023 Overview (04/22/2023): Added automatically from request for surgery [id number] Hypertension Sleep apnea Coronary artery disease PVD (peripheral vascular disease) Overview (05/19/2022): Right popliteal occlusion Hx of CABG Carotid stenosis Social History Tobacco Use Types Packs/Day Years Used Date Smoking Tobacco: Former Cigarettes Smokeless Tobacco: Never Tobacco Cessation:Counseling Given: Not Answered Alcohol Use Standard Drinks/Week Comments Not Currently 0 (1 standard drink = 0.6 oz pur e alcohol) [place] Safety & Environment Answer Date Rec orded Fear of Current or Ex-Partner Not on file Emotionally Abused Not on file 09/10/2023 Physically Abused Not on file 09/10/2023 Sexually Abused Not on file 09/10/2023 Physically or Sexually Abused Not on file Sex and Gender Information Value Date Recorded Sex Assigned at Not on file Gender Identity Not on file Sexual Orientation Not on file Last Filed Vital Signs Vital Sign Reading Time Taken Comments Blood Pressure 93/63 05/04/2024 10:20 AM EDT Pulse 62 05/04/2024 10:20 AM EDT Temperature 36.7 C (98 F) 10/25/2020 9:16 AM EDT Respiratory Rate - - Oxygen Saturation 97% 05/04/2024 10:20 AM EDT Inhaled Oxygen Concentration - - Weight 96.6 kg (213 lb) 05/04/2024 10:20 AM EDT Height 165.1 cm (5' 5 ) 05/04/2024 10:20 AM EDT Body Mass Index 35.45 05/04/2024 10:20 AM EDT Plan of Treatment Not on file Care Teams Escalation Engineer Relationship Specialty Start Date End Date Juancarlos Gan DO [address] [facility] [place] [address] PCP - General 05/19/22
--- OUTSIDE RECORDS SUMMARY | 2024-12-22 12:56 | XMS_ITS | Encounter Summary ---
Author Organization [facility] Address [address] [facility] [place] [address] Care Team Providers Care Representative Government Relations Name Role Phone Juancarlos Gan DO Primary Care Provider [phone] Juanita Lin DO Unavailable [phone] Mary Kate Shine MD Unavailable Reason for Visit * Reason Onset Date Comments Advice Only 12/16/2024 Encounter Details Date Type Department Care Team (Late Contact Info) Description 12/16/2024 Telephone [facility] [address] [facility] [address] [place] [address] Shahana Cordon LPN Advice Only Social History Tobacco Use Types Packs/Day Years Used Date Smoking Tobacco: Former Cigarettes Passive Smoke Exposure: Past Smokeless Tobacco: Never Alcohol Use Standard Drinks/Week Comments Never 0 (1 standard drink = 0.6 oz pur e alcohol) Sex and Gender Information Value Date Recorded Sex Assigned at Not on file Legal Sex Male 8:34 PM EDT Gender Identity Not on file Sexual Orientation Not on file documented as of this encounter Miscellaneous Notes * Telephone Encounter - Shahana Cordon LPN - 12/16/2024 1:57 PM EDT Received VM from unidentified female stating that Rufus saw someone at [facility] in [place] but he was referred to Dr. Tillman and they have not heard from his office. LM for pt informing him that Dr. Tillman is not part of [facility] and provided his phone number. documented in this encounter Plan of Treatment Upcoming Encounters Date Type Department Care Team (Late Contact Info) Description 01/05/2025 10:30 AM EDT Office Visit [facility] [address] [place] [address] Phillip Angela, DPBrandon [address] [facility] [address] [place] [address] 01/06/2025 11:00 AM EDT Office Visit [facility] [address] [place] [phone] Lawson Schilling DO [address] [place] [address] documented as of this encounter Visit Diagnoses Not on filedocumented in this encounter Care Teams Representative Government Relations Relationship Specialty Start Date End Date Juancarlos Gan DO PCP - General Internal Medicine 10/01/23 Juanita Lin DO [address] [place] [address] Referring Physician Neurology 10/20/23 Mary Kate Shine MD [address] [place] [address] Referring Physician Optometry 08/24/24 documented as of this encounter
--- OUTSIDE RECORDS SUMMARY | 2024-12-22 12:56 | XMS_ITS | Encounter Summary ---
Author Organization [facility] Address [address] [place] [address] Care Team Providers Care Motion Picture Projectionist Apprentice Name Role Phone Juancarlos Gan Primary Care Provider [phone] Pedro Richardson MD Unavailable [phone] Source Comments In the event this information is protected by the Federal Confidentiality of Alcohol and Drug AbusePatient Records regulations: The Federal rules restrict any use of the information to criminally investigate or prosecute any alcohol or drug abuse patient.[facility] Encounter Details Date Type Department Care Team (Late st Contact Info) Description 09/18/2021 Patient Msg Colorectal Surgery [address] [place] [id number] Provider, Ccf pre operative information Social History Tobacco Use Types Packs/Day Years [...] N ot on file 05/06/2021 Data from: https://www.neighborhoodatlas.medicine.[facility].edu/. Last address used for calculation Not on [...] have Coronavirus / COVID-19? No / Unsure 09/13/2021 11:08 AM EST documented as of this encounter Plan of Treatment Upcoming Encounters Date Type Department Care Team (Late st Contact Info) Description 10/24/2025 1:40 PM EDT Office Visit General Surgery [address] [place], [place] [phone] [place] [address] Est Pt: 1 yr f/up, s/p AWR 09/24/21 documented as of this encounter Visit Diagnoses Not on filedocumented in this encounter Care Teams Motion Picture Projectionist Apprentice Relationship Specialty Start Date End Date Juancarlos Gan DO PCP - General Internal Medicine 10/23/14 Pedro Richardson MD Cardiology 09/13/21 documented as of this encounter
--- OUTSIDE RECORDS SUMMARY | 2024-12-22 12:56 | XMS_ITS | Encounter Summary ---
Author Organization [facility] Address [address] [place] [address] Care Team Providers Care Cloth Printer Helper Name Role Phone Juancarlos Gan Primary Care Provider [phone] Pedro Richardson MD Unavailable [phone] Source Comments In the event this information is protected by the Federal Confidentiality of Alcohol and Drug AbusePatient Records regulations: The Federal rules restrict any use of the information to criminally investigate or prosecute any alcohol or drug abuse patient.[facility] Encounter Details Date Type Department Care Team (Late st Contact Info) Description 09/13/2021 Patient Msg Pre Anesthesia [address] [facility] [place] [address] Elizabeth Bardales APRN.[facility] [address] [place] [address] Pre-Operative Instructions Social History Tobacco Use Types Packs/Day Years [...] N ot on file 05/06/2021 Data from: https://www.neighborhoodatlas.medicine.[facility].edu/. Last address used for calculation Not on [...] Visit General Surgery [address] [place] [address] [place] [address] [place] [address] Est Pt: 1 yr f/up, s/p AWR 09/24/21 documented as of this encounter Visit Diagnoses Not on filedocumented in this encounter Care Teams Cloth Printer Helper Relationship Specialty Start Date End Date Juancarlos Gan DO PCP - General Internal Medicine 10/23/14 Pedro Richardson MD Cardiology 09/13/21 documented as of this encounter
--- OUTSIDE RECORDS SUMMARY | 2024-12-22 12:56 | XMS_ITS | Clinical Summary ---
Author Organization [facility] Address [address] [place] [address] Care Team Providers Care Sawmill Or Timber Yard Worker Name Role Phone Juancarlos Gan DO Primary Care Provider [phone] Allergies No known active allergies Medications Medication [...] (04/22/2023): Added automatically from request for surgery [id number] Hypertension Sleep apnea Coronary artery disease PVD (peripheral vascular disease) Overview (05/19/2022): Right popliteal occlusion Hx of CABG Carotid stenosis Encounters Date Type Department Care Team Description 11/01/2024 Refill [facility] at [address] [address] Pedro Richardson MD Mixed hyperlipidemia from Last 3 Months Family History Medical History Relation Name Comments Coronary artery disease Brother Coronary artery disease Mother Relation Name Status Comments Brother Mother Social History Tobacco Use Types Packs/Day Years [...] 05/04/2024 10:20 AM EDT Plan of Treatment Health Maintenance Due Date Last Done Comments Diabetes: Hemoglobin A1C 1945 Medicare Annual Wellness (AWV) 1945 Diabetes: Retinopathy Screening 1954 Depression Screening 1956 Diabetes: Urine Protein Screening 12/31/1963 Fall Risk Screening 2009 Zoster Vaccines (2 of 2) 05/01/2024 03/06/2024 COVID-19 Vaccine ( season) 2024 04/07/2024, 04/20/2023, 04/15/2022, Additional history exists Adult Tetanus 03/06/2034 03/06/2024, 04/20/2013 Pneumococcal Vaccine: 65+ Years Completed 04/25/2015, 04/19/2014, 04/21/2012 Influenza Vaccine Completed 04/07/2024, , 05/16/2022, Additional history exists HIB Vaccines Aged Out No longer eligi ble based on patient's age to complete this topic HPV Vaccines Aged Out No longer eligi ble based on patient's age to complete this topic IPV Vaccines Aged Out No longer eligi ble based on patient's age to complete this topic Meningococcal B Vaccine Aged Out No l onger eligible based on patient's age to complete this topic Meningococcal Vaccine Aged Out No roxann oneida eligible based on patient's age to complete this topic Rotavirus Vaccines Aged Out No longer eligible based on patient's age to complete this topic Care Teams Sawmill Or Timber Yard Worker Relationship Specialty Start Date End Date Juancarlos Gan DO [address] [facility] [place] [address] PCP - General 05/19/22
--- OUTSIDE RECORDS SUMMARY | 2024-12-22 12:56 | XMS_ITS | Clinical Summary ---
Author Organization [facility] Address [address] [facility] [place] [address] Care Team Providers Care Ground Support Equipment Fitter Name Role Phone Juancarlos Gan Primary Care Provider [phone] Juanita Lin DO Unavailable [phone] Mary Kate Shine MD Unavailable Allergies No known active allergies Medications amLODIPine (Norvasc) 5 MG tablet TAKE 1 TABLET BY MOUTH EVERY DAY FOR 30 DAYS 4 Active aspirin 81 MG EC tablet Take 1 tablet by mouth Daily Active atorvastatin (Lipitor) 80 MG tablet Take 1 tablet by mouth at bedtime Active baclofen (Lioresal) 10 MG tablet 4 Active carvedilol (Coreg) 6.25 MG tablet Take 1 tablet by mouth in the morning and 1 tablet before bedtime. Active cholecalciferol (Vitamin D-3) 50 MCG (1999) capsule Take 1 capsule every day by oral route. Active clopidogrel (Plavix) 75 MG tablet Take 1 tablet by mouth Daily Active glipiZIDE (Glucotrol) 5 MG tablet TAKE 1 TABLET BY MOUTH EVERY DAY 30 MINUTES PRIOR TO BREAKFAST Active hydroCHLOROthia zide (HYDRODiuril) 25 MG tablet Take 1 tablet by mouth Daily Active lisinopril 30 MG tablet Take 30 mg by mouth Daily 4 Active metFORMIN (Glucophage) 1000 MG tablet TAKE 1 TABLET BY MOUTH TWICE A DAY BEFORE BREAKFAST AND EVENING MEAL Active oxyCODONE (Roxicodone) 5 MG immediate release tablet Take 1 tablet by mouth every 6 (six) hours if needed Active pantoprazole (ProtoNix) 40 MG EC tablet TAKE 1 TABLET BY MOUTH DAILY ON EMPTY STOMACH FOLLOWED IN 30 MINUTES BY BREAKFAST Active triamcinolone (Kenalog) 0.1 % ointment Apply topically 2 (two) times a day Active Prednisolon-Mox iflox-Bromfenac 1-0.5-0.075 % solutionIndicat ions:Age-relate d nuclear cataract of right eye Administer 1 drop into affected eye(s) in the morning and 1 drop at noon and 1 drop in the evening and 1 drop before bedtime. 10 mL 1 Active Active Problems Problem Noted Date Diagnosed Date Pseudophakia 09/27/2024 Resolved Problems Problem Noted Date Diagnosed Date Resolved Date Age-related nuclear cataract of right eye 08/24/2024 09/27/2024 Left posterior capsular opacification 08/24/2024 09/27/2024 Encounters Date Type Department Care Team Description 12/16/2024 Telephone [facility] [address] [place] [address] Shahana Cordon LPN Advice Only 11/14/2024 12:40 PM EDT Office Visit [place] [address] [address] Jada Woods NP BHUPENDRA (obstructive sleep apnea) (Primary Dx); Paresthesias; Carpal tunnel syndrome, bilateral; Ulnar neuropathy, unspecified laterality 11/14/2024 Bamboo flowsheet [place] [address] [address] Jada Woods NP 10/27/2024 10:50 AM EDT Office Visit [facility] [address] [facility] [address] [place] [address] Phillip Angela DPM Diabetes mellitus due to underlying condition with diabetic polyneuropathy, unspecified whether longterm insulin use ([facility]) (Primary Dx); Pain due to onychomycosis of toenails of both feet; Xerosis cutis 10/27/2024 Bamboo flowsheet [facility] [address] [facility] [address] [place] [address] Phillip Angela DPM 10/27/2024 Travel 10/04/2024 8:45 AM EDT Office Visit [facility] [address] [place] [address] Lawson Schilling, Pseudophakia (Primary Dx) 10/04/2024 Bamboo flowsheet [facility] [address] [place] [address] Lawson Schilling, 10/04/2024 Travel 09/27/2024 11:00 AM EDT Office Visit [facility] [address] [place] [address] Lawson Schilling, Pseudophakia (Primary Dx) 09/27/2024 Bamboo flowsheet [facility] [address] [place] [address] Lawson Schilling, DO 09/27/2024 Travel from Last 3 Months Family History Medical History Relation Name Comments Diabetes Father Heart disease Father Heart disease Mother Hypertension Mother Relation Name Status Comments Father Mother Social History Tobacco Use Types Packs/Day Years Used Date Smoking Tobacco: Former Cigarettes Passive Smoke Exposure: Past Smokeless Tobacco: Never Tobacco Cessation:Counseling Given: Yes Alcohol Use Standard Drinks/Week Comments Never 0 (1 standard drink = 0.6 oz pur e alcohol) Sex and Gender Information Value Date Recorded Sex Assigned at Not on file Legal Sex Male 8:34 PM EDT Gender Identity Not on file Sexual Orientation Not on file Last Filed Vital Signs Vital Sign Reading Time Taken Comments Blood Pressure 126/74 11/14/2024 1:00 PM EDT Pulse 58 11/14/2024 1:00 PM EDT Temperature - - Respiratory Rate 16 10/27/2024 10:49 AM EDT Oxygen Saturation 95% 11/14/2024 1:00 PM EDT Inhaled Oxygen Concentration - - Weight 102 kg (225 lb) 11/14/2024 1:00 PM EDT Height 165.1 cm (5' 5 ) 11/14/2024 1:00 PM EDT Body Mass Index 37.44 11/14/2024 1:00 PM EDT Plan of Treatment Upcoming Encounters Date Type Department Care Team (Late st Contact Info) Description 01/05/2025 10:30 AM EDT Office Visit [facility] [address] [facility] [address] [place] [address] Phillip Angela, DPBrandon [address] [facility] [address] [place] [address] 01/06/2025 11:00 AM EDT Office Visit [facility] [address] [place] [address] Lawson Schilling DO [address] [place] [address] Health Maintenance Due Date Last Done Comments Pneumococcal Vaccine: 65+ Ye ars (2 of 2 - PCV) 04/19/2015 04/19/2014 Influenza Vaccine Completed 04/07/2024, , 04/19/2021, Additional history exists Insurance MEDICARE [facility] Care Teams Ground Support Equipment Fitter Relationship Specialty Start Date End Date Juancarlos Gan DO PCP - General Internal Medicine 10/01/23 Juanita Lin DO [address] [place] [address] Referring Physician Neurology 10/20/23 Mary Kate Shine MD [address] [place] [address] Referring Physician Optometry 08/24/24
--- OUTSIDE RECORDS SUMMARY | 2024-12-22 12:56 | XMS_ITS | Encounter Summary ---
Author Organization [facility] Address [id number] [address] [place] [address] Care Team Providers Care Blown Film Extrusion Operator Name Role Phone Juancarlos Gan DO Primary Care Provider [phone] Encounter Details Date Type Department Care Team (Late Contact Info) Description 10/23/2023 Orders Only [facility] [address] [place] [address] Reynold Tipton, RODNEY Social History Tobacco Use Types Packs/Day Years Used Date Smoking Tobacco: Former Cigarettes Q uit: 10/14/2016 Smokeless Tobacco: Never Alcohol Use Standard Drinks/Week Comments No 0 (1 standard drink = 0.6 oz pur e alcohol) Childcare Answer Date Recorded Childcare Unknown 12/29/2018 Employment Answer Date Recorded Employment Unknown 12/29/2018 Hunger Screening Answer Date Recorded Within the past 12 months we worried whether our food would run out before we got money to buy more. Never True 07/02/2023 Within the past 12 months th e food we bought just didn't last and we didn't have money to get more. Never True 07/02/2023 Purpose - Life Answer Date Recorded Purpose and direction in life Unknown Sex and Gender Information Value Date Recorded Sex Assigned at Not on file Legal Sex Male 12:12 PM EDT Gender Identity Not on file Sexual Orientation Not on file documented as of this encounter Plan of Treatment Upcoming Encounters Date Type Department Care Team (Late Contact Info) Description 12/29/2024 11:30 AM EDT Office Visit [facility] [address] [place] [address] Anderson Robledo MD [address], [address] [address] documented as of this encounter Visit Diagnoses Not on filedocumented in this encounter Care Teams Blown Film Extrusion Operator Relationship Specialty Start Date End Date Juancarlos Gan DO [address] [place] [address] PCP - General 04/13/17 documented as of this encounter
--- OUTSIDE RECORDS SUMMARY | 2024-12-22 12:56 | XMS_ITS | Encounter Summary ---
Author Organization [facility] Address [address] [place] [address] Care Team Providers Care Upstream Biomanufacturing Technician Name Role Phone MalikJuancarlos Primary Care Provider [phone] Pedro Richardson MD Unavailable [phone] Source Comments In the event this information is protected by the Federal Confidentiality of Alcohol and Drug AbusePatient Records regulations: The Federal rules restrict any use of the information to criminally investigate or prosecute any alcohol or drug abuse patient.[facility] Encounter Details Date Type Department Care Team (Late st Contact Info) Description 05/30/2021 Patient Msg Ambulatory Surgery [address] [place] [id number] Provider, Megha colon prep instructions Social History Tobacco Use Types Packs/Day Years Used Date Smoking Tobacco: Former Cigars Smokeless Tobacco: Never Comments:Quit 15+ years Area Deprivation Index Answer Date Farzad rded National Score (1-100), lower number is lower ri sk Not on file 05/06/2021 State Score (1-10), lower number is lower risk N ot on file 05/06/2021 Data from: https://www.neighborhoodatlas.[facility]/. Last address used for calculation Not on [...] have Coronavirus / COVID-19? No / Unsure 05/27/2021 12:44 PM EST documented as of this encounter Plan of Treatment Upcoming Encounters Date Type Department Care Team (Late st Contact Info) Description 10/24/2025 1:40 PM EDT Office Visit General Surgery [address] [place], [place] [phone] Jay Mora MD [address] [place], [place] [phone] Est Pt: 1 yr f/up, s/p AWR 09/24/21 documented as of this encounter Visit Diagnoses Not on filedocumented in this encounter Additional Health Concerns Infection Onset Date Last Indicated Resolved Time COVID-19 Rule-Out 05/31/2021 05/30/2021 06/20/2021 8:51 PM EST documented as of this encounter Care Teams Upstream Biomanufacturing Technician Relationship Specialty Start Date End Date Juancarlos Gan DO PCP - General Internal Medicine 10/23/14 Pedro Richardson MD Cardiology 09/13/21 documented as of this encounter
--- OUTSIDE RECORDS SUMMARY | 2024-12-22 12:56 | XMS_ITS | Clinical Summary ---
Author Organization [employer] tem Address [id number] [address] [place] [address] Care Team Providers Care Dry Curer Name Role Phone Juancarlos Gan Primary Care Provider [phone] Allergies No known active allergies Medications atorvastatin (LIPITOR) 80 mg tablet Take 1 tablet (80 mg total) by mouth nightly. 3 7 Active clopidogrel (PLAVIX) 75 mg tablet Take 1 tablet (75 mg total) by mouth once daily. 6 7 Active hydroCHLOROthia zide (HYDRODIURIL) 25 mg tablet Take 1 tablet (25 mg total) by mouth once daily. 6 7 Active lisinopril (PRINIVIL,ZESTR IL) 2.5 mg tablet Take 1 tablet (2.5 mg total) by mouth once daily. 3 7 Active loratadine (CLARITIN) 10 mg tablet Take 1 tablet (10 mg total) by mouth once daily. 3 7 Active metFORMIN (GLUCOPHAGE) 500 mg tablet Take 2 tablets (1,000 mg total) by mouth in the morning and 2 tablets (1,000 mg total) before bedtime. 3 7 Active metoprolol tartrate (LOPRESSOR) 25 mg tablet Take 0.5 tablets (12.5 mg total) by mouth in the morning and 0.5 tablets (12.5 mg total) before bedtime. 3 7 Active pantoprazole (PROTONIX) 40 mg EC tablet Take 1 tablet (40 mg total) by mouth in the evening. 3 7 Active TRADJENTA 5 mg tablet Take 1 tablet (5 mg total) by mouth once daily. 3 7 Active clonazePAM (KlonoPIN) 0.5 mg tablet Take 1 tablet (0.5 mg total) by mouth nightly. 5 7 Active aspirin 81 mg Take 1 tablet (81 mg total) by mouth in the morning. Active magnesium oxide (MAG-OX) 400 mg tablet Take 1 tablet (400 mg total) by mouth in the morning. Active calcium carbonate-vitam in D3 (CALCIUM 500 + D) 500 mg(1,250mg) -200 units per tablet Take 1 tablet by mouth in the morning and 1 tablet in the evening. Take with meals. Active qktexckh-rshm-V A-calcium &mins (THERAGRAN-M) 9 mg iron-400 mcg tablet Take 1 tablet by mouth in the morning. Active b complex vitamins capsule Take 1 capsule by mouth in the morning. Active glipiZIDE (GLUCOTROL) 5 mg tablet TAKE 1 TABLET BY MOUTH 30 MINUTES PRIOR TO BREAKFAST 3 Active sertraline (ZOLOFT) 100 mg tablet 1 tablet (100 mg total) nightly. 3 Active Active Problems Problem Noted Date Diagnosed Date Varicose veins of leg with swelling, bilateral 0 11/26/2023 Assessment & Plan (11/26/2023 9:56 AM EDT): Compression stockings leg elevation and exercise. PAD (peripheral artery disease) 03/10/2023 Assessment & Plan (11/26/2023 9:56 AM EDT): He is status post right lower extremity angiogram and intervention done last year. He is doing well. No leg pain no swelling.Continue best medical therapy. Follow-up in 1 year with lower extremity duplex ultrasound and PVR. Claudication 03/10/2023 Non-healing wound of lower extremity 04/09/2017 Overview (04/09/2017): Added automatically from request for surgery [id number] Family History Medical History Relation Name Comments Heart disease Brother Colon cancer Father Heart disease Mother Relation Name Status Comments Brother Father Mother Social History Tobacco Use Types Packs/Day Years Used Date Smoking Tobacco: Former Cigarettes Q uit: 10/14/2016 Smokeless Tobacco: Never Tobacco Cessation:Counseling Given: Not Answered Alcohol Use Standard Drinks/Week Comments No 0 [...] Sign Reading Time Taken Comments Blood Pressure 132/74 11/26/2023 9:34 AM EDT Pulse 72 11/26/2023 9:34 AM EDT Temperature 36.7 C (98.1 F) 04/02/2023 11:36 AM EDT Respiratory Rate 18 07/02/2023 1:50 PM EST Oxygen Saturation 100% 04/02/2023 5:00 PM EDT Inhaled Oxygen Concentration - - Weight 102.6 kg (226 lb 3.2 oz) 11/26/2023 9:34 AM EDT Height 165.1 cm (5' 5 ) 11/26/2023 9:34 AM EDT Body Mass Index 37.64 11/26/2023 9:34 AM EDT Plan of Treatment Upcoming Encounters Date Type Department Care Team (Late st Contact Info) Description 12/29/2024 11:30 AM EDT Office Visit [facility] [address] [place] [id number] Anderson Robledo MD [address], [address] [address] Health Maintenance Due Date Last Done Comments Depression Screening 1957 DTaP,Tdap and Td Vaccines (1 - Tdap) 12/31/1963 Zoster (Shingles) Vaccine (1 of 2) 1994 Abdominal Aortic Aneurysm (A AA) Screen 2009 Fall Risk Screening 2009 COVID-19 Vaccine (7 2023-2 5 season) 2024 04/20/2023, 04/15/2022, 11/09/2021, Additional history exists Tobacco Screening 11/25/2024 11/26/2023 Influenza Vaccine 03/20/2025 04/14/2023, , 05/13/2018, Additional history exists Medical Devices Not on file Insurance MEDICARE [facility] Care Teams Dry Curer Relationship Specialty Start Date End Date Juancarlos Gan DO [address] [place] [address] PCP - General 04/13/17
--- OUTSIDE RECORDS SUMMARY | 2024-12-22 12:56 | XMS_ITS | Encounter Summary ---
Author Organization [facility] Address [address] [place] [address] Care Team Providers Care Dobby Loom Weaver Name Role Phone Juancarlos Gan Primary Care Provider [phone] Pedro Richardson MD Unavailable [phone] Source Comments In the event this information is protected by the Federal Confidentiality of Alcohol and Drug AbusePatient Records regulations: The Federal rules restrict any use of the information to criminally investigate or prosecute any alcohol or drug abuse patient.[facility] Encounter Details Date Type Department Care Team (Late st Contact Info) Description 07/18/2021 Patient Msg Pre Anesthesia [address] [place] [address] Provider, [facility] Appointment Social History Tobacco Use Types Packs/Day Years Used Date Smoking Tobacco: Former Cigars Smokeless Tobacco: Never Comments:Quit 15+ years Area Deprivation Index Answer Date Farzad rded National Score (1-100), lower number is lower ri sk Not on file 05/06/2021 State Score (1-10), lower number is lower risk N ot on file 05/06/2021 Data from: https://www.neighborhoodatlas.medicine.[facility]/. Last address used for calculation Not on [...] Visit General Surgery [address] [place] [address] Jay Mora MD [address] [place], [place] [id number] Est Pt: 1 yr f/up, s/p AWR 09/24/21 documented as of this encounter Visit Diagnoses Not on filedocumented in this encounter Care Teams Dobby Loom Weaver Relationship Specialty Start Date End Date Juancarlos Gan DO PCP - General Internal Medicine 10/23/14 Pedro Richardson MD Cardiology 09/13/21 documented as of this encounter
--- OUTSIDE RECORDS SUMMARY | 2024-12-22 12:56 | XMS_ITS | Encounter Summary ---
Author Organization [facility] Address [address] [place] [address] Care Team Providers Care Glass Etcher Name Role Phone Juancarlos Gan Primary Care Provider [phone] Pedro Richardson MD Unavailable [phone] Source Comments In the event this information is protected by the Federal Confidentiality of Alcohol and Drug AbusePatient Records regulations: The Federal rules restrict any use of the information to criminally investigate or prosecute any alcohol or drug abuse patient.[facility] Encounter Details Date Type Department Care Team (Late st Contact Info) Description 05/27/2021 Patient Msg Pre Anesthesia [address] [place] [address] Provider, Megha Pre Anesthesia Consultation Clinic Appointment Social History Tobacco Use Types Packs/Day Years Used Date Smoking Tobacco: Former Cigars Smokeless Tobacco: Never Comments:Quit 15+ years Area Deprivation Index Answer Date Farzad rded National Score (1-100), lower number is lower ri sk Not on file 05/06/2021 State Score (1-10), lower number is lower risk N ot on file 05/06/2021 Data from: https://www.neighborhoodatlas.[facility].edu/. Last address used for calculation Not [...] Visit General Surgery [address] [place], [place] [id number] Jay Mora MD [address] [place], [place] [id number] Est Pt: 1 yr f/up, s/p AWR 09/24/21 documented as of this encounter Visit Diagnoses Not on filedocumented in this encounter Additional Health Concerns Infection Onset Date Last Indicated Resolved Time COVID-19 Rule-Out 05/31/2021 05/30/2021 06/20/2021 8:51 PM EST documented as of this encounter Care Teams Glass Etcher Relationship Specialty Start Date End Date Juancarlos Gan DO PCP - General Internal Medicine 10/23/14 Pedro Richardson MD Cardiology 09/13/21 documented as of this encounter
--- OUTSIDE RECORDS SUMMARY | 2024-12-22 12:56 | XMS_ITS | Clinical Summary ---
Author Organization [facility] Address [address] [place] [address] Care Team Providers Care Unix System Administrator Name Role Phone MalikJuancarlos Shira GOODMAN Primary Care Provider [phone] Pedro Richardson MD Unavailable [phone] Allergies No known active allergies Medications metFORMIN (GLUCOPHAGE) 1,000 mg tablet Take 1,000 mg by mouth twice daily with meals. Active pantoprazole DR (PROTONIX) 40 mg tablet Take 40 mg by mouth once daily. Active hydroCHLOROthia zide (HYDRODIURIL, ESIDRIX) 25 mg tablet Take 25 mg by mouth once daily. Active atorvastatin (LIPITOR) 80 mg tablet Take 80 mg by mouth once daily. Active clopidogrel (PLAVIX) 75 mg tablet Take 75 mg by mouth once daily. Active aspirin 81 mg cap Take by mouth once daily. Active MULTI-VITAMIN ORAL Take by mouth once daily. Active ZINC ORAL Take by mouth once daily. Active ascorbic acid (VITAMIN C ORAL) Take by mouth once daily. Active vitamin B complex (B COMPLEX 1 ORAL) Take by mouth once daily. Active docosahexaenoic acid/epa (FISH OIL ORAL) Take by mouth once daily. Active CHOLECALCIFEROL , VITAMIN D3, ORAL Take by mouth once daily. Active MAGNESIUM ORAL Take by mouth once daily. Active CPAP daily at bedtime. Active glipiZIDE (GLUCOTROL) 5 mg tablet once daily. Active sertraline (ZOLOFT) 100 mg tablet TAKE 1 TABLET BY MOUTH EVERYDAY AT BEDTIME 2 Active loratadine (CLARITIN) 10 mg tablet Take 10 mg by mouth. 7 Active tamsulosin (FLOMAX) 0.4 mg Take 1 capsule by mouth once daily. 30 capsule 2 Active carvedilol (COREG) 12.5 mg tablet 1 tablet by ORAL/FEEDING TUBE route q 12 HR. 60 tablet 2 Active Additional Information Patient taking differently:12.5 mgORALEVERY 12 HOURS,1/2 tab twice a day, Reason: Other, Reported on 10/10/2021 tramadol HCl (TRAMADOL ORAL) Take 50 mg by mouth. Active Active Problems Problem Noted Date Diagnosed Date Morbid obesity 10/15/2023 Obesity, Class II, BMI 35-39.9 09/25/2021 Polyp of colon 06/07/2021 ASHD (arteriosclerotic heart disease) Assessment & Plan (09/13/2021 1:07 PM EST): Assessment: s/p CABG x 4(2017) Monitored by Dr. Pedro Richardson (cardiology) Asymptomatic Sleep apnea Assessment & Plan (09/13/2021 11:38 AM EST): Assessment: compliant with CPAP HTN (hypertension) Assessment & Plan (09/13/2021 11:38 AM EST): Assessment: Managed with med Date: BP: 09/13/2021 104/76 Stable. HLD (hyperlipidemia) Assessment & Plan (09/13/2021 11:39 AM EST): Assessment: managed with statin Type 2 diabetes mellitus, wi thout long-term current use of insulin Assessment & Plan (09/13/2021 11:40 AM EST): Assessment: Managed with med Monitored by PCP Antiplatelet or antithrombotic long-term use Assessment & Plan (09/13/2021 11:40 AM EST): Assessment: DAPT Monitored by Cardiology Obesity (BMI 30-39.9) Assessment & Plan (09/13/2021 11:44 AM EST): Assessment: Body mass index is 39.61 kg/m . Weight reduction encouraged. Resolved Problems Problem Noted Date Diagnosed Date Resolved Date 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 Encounters Date Type Department Care Team Description 10/20/2024 1:40 PM EDT Office Visit General Surgery [address] [place] [address] Jay Mora MD S/P repair of ventral hernia (Primary Dx) from Last 3 Months Family History Medical History Relation Comments Hypertension Father Heart disease Mother Hypertension Mother Relation Status Comments Father Mother Social History Tobacco Use Types Packs/Day Years Used Date Smoking Tobacco: Former Cigars Q uit: 1994 Smokeless Tobacco: Never Tobacco Cessation:Counseling Given: Not Answered Comments:Quit 15+ years Alcohol Use Standard Drinks/Week Comments Not Currently 0 (1 standard drink = 0.6 oz pur e alcohol) Area Deprivation Index Answer Date Farzad rded National Score (1-100), lower number is lower ri sk 78 10/15/2023 State Score (1-10), lower number is lower risk 6 10/15/2023 Data from: https://www.neighborhoodatlas.medicine.[facility].edu/. Last address used for calculation [address] 10/15/2023 Sex and Gender Information Value Date Recorded Sex Assigned at Not on file Legal Sex Male 1:40 PM EDT Gender Identity Not on file Sexual Orientation Not on file Last Filed Vital Signs Vital Sign Reading Time Taken Comments Blood Pressure 143/78 10/20/2024 1:38 PM EDT Pulse 60 10/20/2024 1:38 PM EDT Temperature 36.1 C (97 F) 10/20/2024 1:38 PM EDT Respiratory Rate 18 10/01/2021 12:23 PM EDT Oxygen Saturation 98% 10/20/2024 1:38 PM EDT Inhaled Oxygen Concentration - - Weight 104.3 kg (230 lb) 01/27/2022 1:20 PM EDT Height 165.1 cm (5' 5 ) 01/27/2022 1:20 PM EDT Body Mass Index 38.27 01/27/2022 1:20 PM EDT Plan of Treatment Upcoming Encounters Date Type Department Care Team (Late st Contact Info) Description 10/24/2025 1:40 PM EDT Office Visit General Surgery [address] [place], [place] [phone] Jay Mora MD [address] [place], [place] [phone] Est Pt: 1 yr f/up, s/p AWR 09/24/21 Health Maintenance Due Date Last Done Comments Diabetic Foot Exam 1954 Dilated Retinal Exam 1954 Urine Albumin:Creatinine Ratio 1954 Annual PCP Team Chronic Dise ase Visit 1962 Anxiety Screening 1962 BP Controlled (<130/80) 1962 Depression Screening 1962 LDL Cholesterol 1962 Pneumococcal Vaccine: 50+ (2 of 2 - PCV) 04/19/2015 04/19/2014 HbA1C 03/13/2022 09/13/2021 Shingrix Vaccine (2 of 2) 05/01/2024 03/06/2024 Advance Directive Discussion 07/20/2024 Covid-19 Vaccine (8 - 2023-2 5 season) 2024 04/07/2024, 04/20/2023, 04/15/2022, Additional history exists DTaP,Tdap,Td Vaccine (2 - Td or Tdap) 03/06/2034 03/06/2024 RSV Vaccine Completed 07/07/2023 Influenza Vaccine Completed 04/07/2024, , 05/16/2022, Additional history exists Medical Devices Implanted Type Area Buffing Wheel Raker Device Identifier Shelf Expiration Date Model / Serial / Lot Mesh Parietene Polypropylene Macroporous [id number] Surgical Monofilament - [id number] Implanted:Qty: 1 on 09/24/2021 at [facility] Mesh N/A: Abdomen [employer] 10/17/2024 [id number] / / [id number] Procedures Procedure Name Priority Date/Time Associated Diagnosis Comments HEMOGLOBIN A1C Routine 09/13/2021 12:19 PM EST Preop examination Polyp of colon, unspecified part of colon, unspecified type Abdominal hernia without obstruction and without gangrene, recurrence not specified, unspecified hernia type ASHD (arteriosclerotic heart disease) Sleep apnea, unspecified type Hypertension, unspecified type Hyperlipidemia, unspecified hyperlipidemia type Type 2 diabetes mellitus without complication, without long-term current use of insulin (HCC) Antiplatelet or antithrombotic long-term use Obesity (BMI 30-39.9) from Last 3 Months or Most Recently Relevant to Health Maintenance Results * (ABNORMAL) HGB A1C (09/13/2021 12:19 PM EST) [facility] Hemoglobin A1C 7.6(H) 4.3 - 5.6 % 09/13/2021 12:54 PM EST [facility] Comment: [place] Diabetes Association guidelines indicate that patients with HgbA1c in the range 5.7-6.4% are at increased risk for development of diabetes, and intervention by lifestyle modification may be beneficial. HgbA1c greater or equal to 6.5% is considered diagnostic of diabetes. Estimated Average Glucose 171 mg/dL 09/13/2021 12:54 PM EST [facility] Comment: eAG: (Estimated average glucose) is a calculated value from HgbA1c and is solar manufacturer's representative of the average blood glucose level in the last 2-3 month period. Blood WHOLE BLOOD SPECIMEN / Unknown 09/13/2021 12:19 PM EST 09/13/2021 12:21 PM EST us Elizabeth Bardales STRADDLE BUGGY OPERATOR.[employer] Final Resul t [facility] [address] [place] [address] [facility] [address] [place] [address] from Last 3 Months or Most Recently Relevant to Health Maintenance Insurance MEDICARE [facility] Advance Directives Documents on File Type Date Recorded Patient Tennis Centre Manager Expl anation Advance Directive(s) 09/24/2021 8:40 AM Care Teams Unix System Administrator Relationship Specialty Start Date End Date Juancarlos Gan DO PCP - General Internal Medicine 10/23/14 Pedro Richardson MD Cardiology 09/13/21
--- NOTE | 2024-12-22 13:00 | CA_ITS ---
[facility] Test Date: 2024-12-22 Pat Name: LIZZY BURK Department: Room: - Gender: Male Steam And Power Supervisor: : [id number] Requested By: [id number] Order Number: [id number] Reading MD: CRISTELA OCAMPO M.D. Interpretive Statements Summary of the findings: Right leg: JAMIR= 1.06; TBI= 0.63. Doppler waveforms demonstrate monophasic flow at the posterior tibial and dorsalis pedis arteries. Left leg: JAMIR= 1.67; TBI= 0.52. Doppler waveforms demonstrate monophasic flow at the posterior tibial and dorsalis pedis arteries. Segmental pressures: Segmental pressures are abnormal bilaterally due to noncompressible vessels. Pulse volume recordings: PVRs at the high thigh, below knee, and ankle levels show blunted waveforms. Conclusion: Normal Right and noncompressible left ankle-brachial indices at rest. Toe-brachial indices are suggestive of PAD. Mostly moncompressible calcified vessels in the legs preclude accurate assessment. The study shows evidence of PAD. Different imaging study (ultrasound, CT angiogram) can provide better characterization. Electronically Signed On 12-22-2024 20:36:17 EDT by CRISTELA OCAMPO M.D.
== END 2024-12-22 12:55 | disposition home or self-care (01) ==
LOC: CARD 12:54
PROVIDERS: PCP Internal Medicine; Visit Provider Student in an Organized Health Care Education/Training Program
DX: I73.9 Peripheral vascular disease, unspecified (principal)
CPT/HCPCS: 93923

== ENCOUNTER 2025-01-16 23:07 | Inpatient (IN) | payer MEDICARE, SELFPAY ==
[2025-01-16 23:11] VITALS: BP 190/80; PULSE 76; TEMP 36.8; O2SAT 97; BMI 35.8
[2025-01-16 23:14] VITALS: O2SAT 97
--- NOTE | 2025-01-16 23:22 | ED.GENADUL1 ---
HPI HPI - General Adult General Chief complaint: Nausea/Vomiting/Diarrhea Stated complaint: BLOOD PRESSURE IS HIGH Time Seen by Provider: 01/16/25 23:13 Source: patient Mode of arrival: walk-in Limitations: no limitations History of Present Illness HPI narrative: This 79-year-old male patient presents to the ED stating he has felt nauseated all day with vaguely described abdominal pain. He vomited twice today the last time at 9 PM shortly before which she had taken his oral meds which she brought up when he vomited. He has been checking his blood pressure and has been running high today with the highest systolic around 200. He denies headache, photophobia, neck stiffness, chest pain or shortness of breath. Patient has had most of his colon removed because of polyps and cancer. Related Data Home Medications ?Medication ?Instructions ?Recorded ?Confirmed aspirin 81 mg tablet,delayed 81 mg PO DAILY 12/26/22 01/16/25 release (Adult Aspirin Regimen) atorvastatin 80 mg tablet 80 mg PO DAILY 12/26/22 01/16/25 calcium 500 mg (as 1 tab PO DAILY 12/26/22 01/16/25 carbonate)-vitamin D3 10 mcg (400 unit) tablet carvedilol 25 mg tablet 12.5 mg PO Q12H 12/26/22 01/16/25 cinnamon bark 500 mg capsule 1,000 mg PO DAILY 12/26/22 01/16/25 (Cinnamon) clopidogrel 75 mg tablet 75 mg PO DAILY 12/26/22 01/16/25 glipizide 5 mg tablet 10 mg PO BID 12/26/22 01/16/25 hydrochlorothiazide 25 mg tablet 25 mg PO DAILY 12/26/22 01/16/25 lisinopril 20 mg tablet 30 mg PO DAILY 12/26/22 01/16/25 multivitamin 1 tab PO DAILY 12/26/22 04/11/24 omega-3 fatty acids 1,000 mg 1,000 mg PO DAILY 12/26/22 04/11/24 capsule pantoprazole 40 mg tablet,delayed 40 mg PO QAM 12/26/22 01/16/25 release vitamin B complex 1 tab PO DAILY 12/26/22 04/11/24 zinc acetate 50 mg (zinc) capsule 50 mg PO DAILY 12/26/22 04/11/24 amlodipine 5 mg tablet 5 mg PO QDAY 06/05/23 01/16/25 baclofen 10 mg tablet 10 mg PO BEDTIME PRN muscle spasm 08/03/23 01/16/25 gabapentin 100 mg capsule 200 mg PO BID 05/25/24 01/16/25 Previous Rx's ?Medication ?Instructions ?Recorded ondansetron 4 mg disintegrating 4 mg PO Q8H PRN nausea and 05/03/23 tablet vomiting 4 days #10 tabs hyoscyamine sulfate 0.125 mg 0.125 mg PO Q6H PRN abdominal pain 06/05/23 tablet (Levsin) #12 tabs tramadol 50 mg tablet 50 mg PO DAILY PRN pain #7 tabs 09/02/23 gabapentin 100 mg capsule 200 mg (2 x 100 mg) PO BID #120 05/25/24 caps Allergies Allergy/AdvReac Type Severity Reaction Status Date / Time No Known Drug Allergies Allergy Verified 01/16/25 23:17 Opioid HPI Opioid Management Most Recent Opioid Data: Last Pain Scale 9 04/11/24, 08:52 Review of Systems ROS Status of ROS 10 or more systems reviewed and unremarkable except as noted in history and below [facility] Medical History Diabetes ?E11.9 - Type 2 diabetes mellitus without complications (ICD-10) History of shingles ?Z86.19 - Personal history of other infectious and parasitic diseases (ICD-10) Osteoarthritis ?M19.90 - Unspecified osteoarthritis, unspecified site (ICD-10) Hiatal hernia ?K44.9 - Diaphragmatic hernia without obstruction or gangrene (ICD-10) Acid reflux ?K21.9 - Gastro-esophageal reflux disease without esophagitis (ICD-10) Carpal tunnel syndrome ?G56.00 - Carpal tunnel syndrome, unspecified upper limb (ICD-10) Hearing deficit ?H91.90 - Unspecified hearing loss, unspecified ear (ICD-10) High cholesterol ?E78.00 - Pure hypercholesterolemia, unspecified (ICD-10) Heart murmur ?R01.1 - Cardiac murmur, unspecified (ICD-10) Surgical History Hx of hernia repair ?Z98.890 - Other specified postprocedural states (ICD-10) ?Z87.19 - Personal history of other diseases of the digestive system (ICD-10) H/O total hip arthroplasty ?Z96.649 - Presence of unspecified artificial hip joint (ICD-10) H/O ventral hernia repair ?Z98.890 - Other specified postprocedural states (ICD-10) ?Z87.19 - Personal history of other diseases of the digestive system (ICD-10) Stented coronary artery ?Z95.5 - Presence of coronary angioplasty implant and graft (ICD-10) History of atherectomy ?Z98.890 - Other specified postprocedural states (ICD-10) H/O hemicolectomy ?Z90.49 - Acquired absence of other specified parts of digestive tract (ICD-10) H/O cystoscopy ?Z98.890 - Other specified postprocedural states (ICD-10) S/P CABG x 4 ?Z95.1 - Presence of aortocoronary bypass graft (ICD-10) Social History Little interest or pleasure in doing things: not at all Feeling down, depressed, or hopeless: not at all Exam Narrative Exam Narrative: Patient appears in mild discomfort. His initial blood pressure was elevated but shortly after came down to a systolic pressure between 130 and 140. HEENT exam is normal to inspection. Neck is supple. Lung sounds are clear to auscultation bilaterally. Heart has regular rate and rhythm. Abdomen is protuberant soft with mild upper abdominal tenderness without guarding or peritoneal signs. There is no CVA tenderness. Lower extremities warm and dry. He does not have unilateral leg swelling or calf tenderness. Speech and mentation are clear and intact. There is no facial asymmetry. He moves all extremities actively. Constitutional Vital Signs, click to edit/add: Last Vital Signs Temp 98.2 F 01/16/25 23:11 Pulse 76 01/16/25 23:11 Resp 18 01/16/25 23:11 BP 102/58 01/17/25 06:00 Pulse Ox 97 01/17/25 01:42 O2 Del Method Room Air 01/16/25 23:11 Course Vital Signs Vital signs: Vital Signs Temperature 98.2 F 01/16/25 23:11 Pulse Rate 76 01/16/25 23:11 Respiratory Rate 18 01/16/25 23:11 Blood Pressure 190/80 H 01/16/25 23:11 Pulse Oximetry 97 01/16/25 23:11 Oxygen Delivery Method Room Air 01/16/25 23:11 Temperature 98.2 F 01/16/25 23:11 Pulse Rate 76 01/16/25 23:11 Respiratory Rate 18 01/16/25 23:11 Blood Pressure 102/58 01/17/25 06:00 Pulse Oximetry 97 01/17/25 01:42 Oxygen Delivery Method Room Air 01/16/25 23:11 Medical Decision Making MDM Narrative Medical decision making narrative: Patient presents to the emergency department with chief complaint of abdominal pain, nausea and vomiting. He became concerned because he vomited his blood pressure pills that he had taken just before he started throwing up and his blood pressure had gone up. His blood pressure has normalized in the ED without any treatment directed at it. His workup shows choledocholithiasis. Liver functions do not suggest obstruction. Patient is started on IV fluids. He has had his previous surgeries at the [facility] and wanted to be transferred to that facility. I spoke with Dr. Elly Sandhu who has accepted him for admission at that hospital. Currently he is awaiting bed availability prior to transfer. Lab Data Labs: Lab Results 01/16/25 01/17/25 Range/Units 23:30 01:31 WBC 8.6 (4.0-11.0) 10^3/uL RBC 4.74 (4.70-6.10) 10^6/uL Hgb 15.2 (14.0-18.0) g/dL Hct 43.7 (42.0-54.0) % MCV 92.2 (80.0-94.0) fL MCH 32.1 (25.9-34.0) pg MCHC 34.8 (29.9-35.2) g/dL RDW 14.1 (11.0-15.0) % Plt Count 201 (150-450) 10^3/uL MPV 9.6 (9.5-13.5) fL Neut % (Auto) 73.9 (43.0-75.0) % Lymph % (Auto) 15.9 L (20.5-60.0) % [place] % (Auto) 8.5 (1.7-12.0) % Eos % (Auto) 1.3 (0.9-7.0) % Baso % (Auto) 0.3 (0.2-2.0) % Neut # (Auto) 6.4 (1.4-6.5) 10^3/uL Lymph # (Auto) 1.4 (1.2-3.8) 10^3/uL [place] # (Auto) 0.7 (0.3-0.8) 10^3/uL Eos # (Auto) 0.1 (0.0-0.7) 10^3/uL Baso # (Auto) 0.0 (0.0-0.1) 10^3/uL Abs Immat Gran (auto) 0.01 (0.00-0.03) 10^3/uL Imm/Tot Granulo (auto) 0.1 (0.0-0.5) % Sodium 136 (136-145) mmol/L Potassium 4.3 (3.5-5.1) mmol/L Chloride 100 (98-107) mmol/L Carbon Dioxide 28.8 (21.0-32.0) mmol/L Anion Gap 11.5 BUN 18.0 (7.0-18.0) mg/dL Creatinine 1.13 (0.70-1.30) mg/dL Est GFR ( Amer) >60 (>=60 mL/min/1.73m^2) Est GFR (Non-Af Amer) >60 (>=60 mL/min/1.73m^2) BUN/Creatinine Ratio 15.9 Glucose 193 H (74-106) mg/dL Lactate 1.5 (0.4-2.0) mmol/L Calcium 9.9 (8.5-10.1) mg/dL Total Bilirubin 0.5 (0.2-1.0) mg/dL Direct Bilirubin 0.2 (0.0-0.2) mg/dL AST 21 (15-37) U/L ALT 39 (16-63) U/L Alkaline Phosphatase 144 H (46-116) U/L Total Protein 7.0 (6.4-8.2) g/dL Albumin 3.4 (3.4-5.0) g/dL Globulin 3.6 g/dL Albumin/Globulin Ratio 0.9 Lipase 13.0 L (16.0-77.0) U/L Urine Color Lt. yellow (YELLOW) Urine Clarity Clear (CLEAR) Urine pH 6.0 (5.0-9.0) Ur Specific [place] 1.020 (1.005-1.025) Urine Protein Negative (NEG/TRACE) mg/dL Urine Glucose (UA) 100 A (NEGATIVE) mg/dL Urine Ketones Negative (NEGATIVE) mg/dL Urine Occult Blood Trace-i (NEGATIVE) Urine Nitrite Negative (NEGATIVE) Urine Bilirubin Negative (NEGATIVE) Urine Urobilinogen 0.2 (0.2-1.0) EU/dL Ur Leukocyte Esterase Negative (NEGATIVE) Urine RBC 0-2 (0-2) #/HPF Urine WBC 0-2 A (NONE SEEN) #/HPF Ur Squamous Epith Cells Rare (NONE/RARE) #/LPF Urine Crystals None seen (None Seen) #/HPF Urine Bacteria Trace A (NONE SEEN) #/HPF Urine Casts None seen (NONE SEEN) #/LPF Urine Mucus Trace A (NONE SEEN) Ur Culture Indicated? No Discharge Plan Discharge Chief Complaint: Nausea/Vomiting/Diarrhea Clinical Impression: Choledocholithiasis Patient Disposition: General Acute Hospital Time of Disposition Decision: 04:23 Discharge location: [facility] Condition: Fair
[2025-01-16 23:40] LABS: Hematocrit 43.7 % (42.0-54.0); Hemoglobin 15.2 g/dL (14.0-18.0); Immature Granulocytes Abs Auto 0.01 10^3/uL (0.00-0.03); Immature Granulocytes Pct Auto 0.1 % (0.0-0.5); Lymphocytes Absolute Auto 1.4 10^3/uL (1.2-3.8); Mean Corpuscular HGB Conc 34.8 g/dL (29.9-35.2); Mean Corpuscular Hemoglobin 32.1 pg (25.9-34.0); Mean Corpuscular Volume 92.2 fL (80.0-94.0); Platelet Count 201 10^3/uL (150-450); Red Blood Count 4.74 10^6/uL (4.70-6.10); White Blood Count 8.6 10^3/uL (4.0-11.0)
[2025-01-16] MEDS: 0.9 % SODIUM CHLORIDE 1,000 ML 125 ML IV (23:43)
[2025-01-16 23:46] VITALS: BP 153/75; O2SAT 96
--- OUTSIDE RECORDS SUMMARY | 2025-01-16 23:48 | XMS_ITS | CCD ---
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 Name Role Phone JUANCARLOS CUENCA Referring Unavailable JUANCARLOS CUENCA Primary Care Unavailable Delonte Webb Admitting Unavailable AhDelonte tamez Attending Unavailable JUANCARLOS CUENCA Referring Unavailable TY AVALOS Surgeon Unavailable TY AVALOS Admitting Unavailable JUANCARLOS CUENCA Primary Care Unavailable TY AVALOS Attending Unavailable [facility] Procedure Practitioner Unavailab Juancarlos Delatorre DO Primary Care Provider Pedro Richardson Ahmed Unavailable [phone] Dylan VANESSA, Ahmed Unavailable JUANCARLOS CUENCA [...] Consulting Unavailable BALL, DR VEGA Admitting Unavailable ZIEBER, DR GABY Patel Consulting Unavailable LAMAS ., DR EVAN Mcleod Admitting Unavailable LAMAS ., DR EVAN Mcleod Consulting Unavailable BANG, DR VEGA Primary Care Unavailable LAMAS ., DR EVAN Mcleod Attending Unavailable LELA HUGHES Consulting Unavailable NILL, Nya Patel Attending Unavailable NILL, Nya Patel Attending Unavailable NILL, Nya Patel Attending Unavailable Nirmala James Unavailable Mauro VANESSA, Hanh Chiang Attending Unavailable [...] DO Unavailable Mary Kate Shine MD Unavailable Juancarlos Cuenca DO Primary Care Provider Pedro Richardson MD Unavailable JAY GONZALEZ Attending Unavailable JAY GONZALEZ Referring Unavailable JUANCARLOS CUENCA Primary Care Unavailable Juancarlos Cuenca MD Primary Care Provider Juancarlos Cuenca DO Primary Care Provider Juancarlos Cuenca DO Primary Care Provider PHILLIP BINGHAM Attending Unavailable MATTHEW KEARNS Attending Unavailable MATTHEW KEARNS Attending Unavailable MATTHEW KEARNS Attending Unavailable PHILLIP BINGHAM Attending Unavailable JADA WOODS Attending Unavailable PHILLIP BINGHAM Attending Unavailable MATTHEW KEARNS Attending Unavailable PHILLIP BINGHAM Attending Unavailable PHILLIP BINGHAM Attending Unavailable JOANNA LIN Attending Unavailable Allergies Allergy Classification Reported Allergen(s) Allergy Type Date of Onset Reaction(s) Facility (20 sources) Morphine; Translations: [morphine] Drug Allergy Unknown [facility] Repository (1 source) Morphine Drug Allergy 12-08-2023 [facility] Medications Current Medications Medication Drug [...] tablet Discontinued 0 .ROUTE .COMPLEX 90 March 03, [...] Active ascorbic acid 500 mg oral capsule (17 sources) Vitamin C Start: 05-20-2024 Ascorbic Acid (Vitamin C) 500 mg capsule Active MG PO May 20, 2024 12:00am Start: 04-14-2019 Vitamin C Oral , Daily, [...] Status: Ordered baclofen 10 mg oral tablet (20 sources) gamma-Aminobuty nasreen Acid-ergic Agonist Start: 09-16-19 End: 09-14-19 baclofen (Lioresal) 10 MG tablet 09/28/2023 Active calcium acetate (1 source) Start: 04-14-20 calcium acetate Oral, TID, Refills(s) 0, Prophylaxis Start Date: 04/14/19 Status: Ordered calcium carbonate 1500 mg oral tablet (6 sources) Start: 05-20-20 take 1 tablet by mouth once daily Calcium Carbonate 600 mg calcium (1,500 mg) tablet Active 600 MG PO Daily May 20, 2024 12:00am cholecalciferol 0.05 mg oral capsule (20 sources) Vitamin D Start: 05-20-20 take 1 capsule by mouth once daily Cholecalciferol (Vitamin D3) 50 mcg (2,000 unit) capsule Active 50 MCG PO Daily May 20, 2024 12:00am CHOLECALCIFEROL, VITAMIN D3, ORAL (10 sources) CHOLECALCIFEROL, VITAMIN D3, ORAL Take by mouth once daily. Active CHOLECALCIFEROL, VITAMIN D3, ORAL Take by mouth once daily. 0 Active Comment on above: Take by mouth once d aily. clopidogrel 75 mg oral tablet (20 sources) P2Y12 Platelet Inhibitor Start: 11-01-2024 take 1 tablet by mouth once daily Clopidogrel 75 mg tablet Active 0 .ROUTE .COMPLEX 90 November 01, 2024 10:00pm TAKE 1 TABLET BY MOUTH EVERY DAY FOR 90 DAYS Start: 04-14-2019 End: 11-01-2024 take 1 tablet by mouth once daily Clopidogrel 75 mg tablet Discontinued 75 MG PO Daily September 07, 2023 1:00am January 23, 2024 3:12pm Comment on above: Take 75 mg by mouth once daily. CPAP (10 sources) CPAP daily at be dtime. Active CPAP daily at be dtime. 0 Active Comment on above: daily at bedtime. Cranberry preparation (1 source) Non-Standardized Food Allergenic Extract, Non-Standardized Plant Allergenic Extract Start: 04-14-20 cranberry Oral, Daily, Refill(s) 0, Prophylaxis Start Date: 04/14/19 Status: Ordered diclofenac sodium 0.01 mg/mg topical gel (7 sources) Nonsteroidal Anti-inflammatory Drug Start: 04-21-20 apply 2 g topically once as needed for pain Diclofenac Sodium 1 % gel Active 2 GM TOPICAL as directed as needed for knee pain 08 18April 21, 2024 12:00am up to 4x's a day Start: 04-21-2024 [...] d aily. empagliflozin 10 mg oral tablet (7 sources) Sodium-Glucose Cotransporter 2 Inhibitor Start: 10-29-19 take 1 tablet by mouth once daily in the morning Empagliflozin (Jardiance) 10 mg tablet Active 10 MG PO Every morning October 28, 2024 12:00am Start: 05-06-2023 take 1 tablet by mansoor th every twenty-four hours Jardiance 10 MG 1 tablet Orally Once a day for 30 days Apr, Active enteric contrast (will be provided with radiology test) (1 source) Start: 10-16-2022 End: 10-16-2022 take 1 dose by mouth once, then [...] contrast guidelines Fish Oils (1 source) Start: 04-14-2019 Fish Oil Oral, Daily, Refill(s) 0, Prophylaxis Start Date: 04/14/19 Status: Ordered glipiZIDE 5 mg oral tablet (20 sources) Sulfonylurea Start: 11-01-2024 take 2 tablets by mouth at breakfast, then take 1 tablet by mouth at dinner Glipizide 5 mg tablet Active 0 .ROUTE .COMPLEX 270 November 01, 2024 10:00pm TAKE 2 TABLETS BY MOUTH 30 MINUTES PRIOR TO BREAKFAST AND 1 TABLET 30 MINUTES PRIOR TO EVENING MEAL Start: 10-03-2024 End: 11-01-2024 take 2 tablets by mouth twice daily, then take 1 tablet by mouth twice daily Glipizide 5 mg tablet Discontinued 0 PO Twice daily 270 90 October 03, 2024 3:24pm November 01, 2024 10:00pm 2 tablet before bkfst and 1 tablet before evening meal orally twice daily; Start: 06-16-2024 End: 10-03-2024 take 2 tablets by mouth once daily Glipizide 5 mg tablet Discontinued 0 .ROUTE .COMPLEX 180 June 16, 2024 8:37pm October 03, 2024 3:26pm TAKE 2 TABLETS BY MOUTH DAILY Start: 05-25-2024 End: 06-16-2024 take 2 tablets by mouth once daily Glipizide 5 mg tablet Discontinued 10 MG PO Daily 60 May 25, 2024 4:52pm June 16, 2024 8:37pm Start: 12-07-2023 End: 05-25-2024 take 2 tablets by mouth at breakfast, then take 1 tablet by mouth at dinner Glipizide 5 mg tablet Discontinued 0 .ROUTE .COMPLEX 270 December 07, 2023 1:05pm May 25, 2024 4:52pm TAKE 2 TABLETS BY MOUTH 30 MINUTES [...] 1:45pm Take 2 tabs po BID Start: 11-04-2023 End: 11-17-2023 take 20 mg by mouth twice daily Glipizide Discontinued 20 MG PO Twice daily November 04, 2023 10:53am November 17, 2023 4:20pm Start: 09-16-2023 End: 10-12-2023 Glipizide 10 mg tablet Disco ntinued 10 MG PO .morning September 16, 2023 12:53pm October 12, 2023 10:14am Start: 09-16-2023 End: 09-16-2023 take 2 tablets by mouth once daily Glipizide 5 mg tablet Discontinued 10 MG PO Daily September 16, 2023 1:00am September 16, 2023 12:51pm Start: 09-16-2023 End: 09-16-2023 take 10 mg by mouth once daily Glipizide Discontinued 10 MG PO Daily September 16, 2023 1:00am September 16, 2023 12:51pm Start: 09-07-2023 End: 11-04-2023 take 1 tablet by mouth twice daily Glipizide 10 mg tablet Discontinued 10 MG PO Twice daily October 12, 2023 10:13am November 04, 2023 10:56am Start: 09-07-2023 End: 09-16-2023 take 1 tablet [...] May, Active Start: 03-11-2021 End: 10-12-2023 Glipizide 5 mg tablet Discon tinued 5 MG PO .evening September 16, 2023 [...] other day Hydrochlorothiazide 25 mg tablet Active 25 MG PO .QOD 45 90 November 21, 2024 11:59am Start: 11-01-2024 End: 11-21-2024 take 1 tablet by mouth once daily Hydrochlorothiazide 25 mg tablet Discontinued 0 .ROUTE .COMPLEX November 01, 2024 10:00pm November 21, 2024 12:00pm TAKE 1 TABLET BY MOUTH EVERY DAY Start: 12-23-2023 End: 11-01-2024 take 1 tablet by mouth every other day Hydrochlorothiazide 25 mg tablet Discontinued 0 .ROUTE .COMPLEX December 23, 2023 10:12am November 01, 2024 10:00pm TAKE 1 TABLET BY MOUTH EVERY OTHER DAY Start: 10-12-2023 End: 12-23-2023 take 1 tablet by mouth once daily Hydrochlorothiazide 25 mg tablet Discontinued 0 .ROUTE .COMPLEX 90 October 12, [...] 30 mg tablet Active 0 .ROUTE .COMPLEX 90 March 18, [...] by mouth once d aily. Magnesium Hydroxide (6 sources) Start: 05-20-2024 Magnesium Hydroxide 600 mg tablet,chewable Active MG PO May 20, 2024 12:00am Start: 05-20-2024 Magnesium Hydr oxide 600 mg tablet,chewable Active MG PO May 19, 2024 11:00pm MULTI-VITAMIN ORAL (10 sources) MULTI-VITAMIN OR AL Take by mouth once daily. Active MULTI-VITAMIN OR AL Take by mouth once daily. 0 Active Comment on above: Take by mouth once d aily. Multivitamin tablet (6 sources) Start: 05-20-2024 take 1 tablet by mouth once daily Multivitamin tablet Active 1 TAB PO Daily May 20, 2024 12:00am Start: 05-20-2024 take 1 tablet by mansoor once daily Multivitamin tablet Active 1 TAB PO Daily May 19, 2024 11:00pm [place] 8-Cxb-Jty-Fish Oil (Fish Oil) 60-90-500 mg capsule (6 sources) Start: 05-20-2024 take 1 capsule by mouth once daily [place] 9-Geg-Rbv-Fish Oil (Fish Oil) 60-90-500 mg capsule Active 1 CAP PO Daily May 20, 2024 12:00am Start: 05-20-2024 take 1 capsule by mo [facility] once daily [place] 5-Xjd-Sty-Fish Oil (Fish Oil) 60-90-500 mg capsule Active 1 CAP PO Daily May 19, 2024 11:00pm oxyCODONE hydrochloride 5 mg oral tablet (20 sources) Opioid Agonist take 1 tablet by mouth every six hours as needed oxyCODONE (Roxicodone) 5 MG immediate release tablet Take 1 tablet by mouth every 6 (six) hours if needed Active pantoprazole 40 mg delayed release oral tablet (20 sources) Proton Pump Inhibitor Start: 01-04-20 End: 11-02-19 take 1 tablet by mouth once daily at breakfast Pantoprazole 40 mg tablet,delayed release (DR/EC) Active 0 .ROUTE .COMPLEX 90 November 01, 2024 9:59pm TAKE 1 TABLET BY MOUTH DAILY ON [...] once daily. Prednisolon-Moxiflox -Bromfenac 1-0.5-0.075 % solution (13 sources) Start: 08-24-2024 Prednisolon-Moxiflo x-Bromfenac 1-0.5-0.075 % solution [...] Comment on above: [facility] silver sulfADIAZINE 10 mg/ml topical cream (4 sources) Sulfonamide Antibacterial Start: 11-15-19 Silver Sulfadiazine (Silvadene) 1 % cream Active 1 APPLIC TOPICAL Twice daily 85 November 14, 2024 12:00am apply a 1.5 mm thickness Super B Complex (1 source) Start: 04-14-20 [...] on above: Take 1 capsule by mo [facility] once daily. traMADol hydrochloride 50 mg oral tablet (12 sources) Opioid Agonist Start: 09-16-19 End: 12-17-19 25 take 1 tablet by mouth once daily at bedtime Tramadol 50 mg tablet Active 50 MG PO Daily at bedtime 30 November 21, 2024 12:00am triamcinolone acetonide 0.001 mg/mg topical ointment (20 sources) Corticosteroid triamcinolone (Kenalog) 0.1 % ointment Apply topically 2 (two) times a day Active Vitamin B Complex (10 sources) vitamin B comple x (B COMPLEX 1 ORAL) Take by mouth once daily. Active vitamin B comple x (B COMPLEX 1 ORAL) Take by mouth once daily. 0 Active Comment on above: Take by mouth once d aily. Vitamin B Complex tablet (6 sources) Start: 05-20-2024 take 1 tablet by mouth once daily Vitamin B Complex tablet Active 1 TAB PO Daily May 20, 2024 12:00am Start: 05-20-2024 take 1 tablet by mouth once da rivas Vitamin B Complex tablet Active 1 TAB PO Daily May 19, 2024 11:00pm Vitamin D3 (1 source) Start: 04-14-2019 Vitamin D3 Ora l, Daily, Refills(s) 0, Prophylaxis Start Date: 04/14/19 Status: Ordered Zinc (11 sources) Start: 04-14-2019 Zinc Oral, Nathalie ly, Refills(s) 0, Prophylaxis Start Date: 04/14/19 Status: Ordered ZINC ORAL Take b y mouth once daily. Active ZINC ORAL Take b y mouth once daily. 0 Active Comment on above: Take by mouth once d aily. zinc gluconate 30 mg oral tablet (6 sources) Start: 05-20-2024 take 1 tablet by mouth once daily Zinc Gluconate 30 mg tablet Active 30 MG PO Daily May 20, 2024 12:00am Completed/Discontinued Medications Medication Drug Class(es) Dates Sig [...] Take 80 mg by mouth once daily. carvedilol 12.5 mg oral tablet (20 sources) alpha-Adrenergic Ciera, beta-Adrenergic Ciera Start: 05-20-2024 take 1 tablet by mouth twice daily Carvedilol 6.25 mg tablet Active 6.25 MG PO Twice daily May 20, 2024 12:00am Start: 10-12-2023 End: 12-16-2024 Carvedilol 12.5 mg tablet Discontinued 12.5 MG .ROUTE .COMPLEX May 20, 2024 10:56am December 16, 2024 11:06am 12.5 mg ; Start: 09-07-2023 End: 10-12-2023 take 1 tablet by mouth twice daily Carvedilol 12.5 mg tablet Discontinued 12.5 MG PO Twice daily September 07, 2023 1:00am October 12, 2023 5:18pm Start: 10-01-2021 take 1 tablet entera l [...] 12.5 mg by mout h once daily. cephalexin 500 mg oral capsule (10 sources) Cephalosporin Antibacterial Start: 11-15-19 End: 12-17-19 take 1 capsule by mouth twice daily Cephalexin 500 mg capsule Discontinued 500 MG PO Twice daily November 21, 2024 12:05pm December 16, 2024 11:01am escitalopram 5 mg oral tablet (15 sources) Serotonin Reuptake Inhibitor Start: 03-31-20 End: 04-22-20 take 1 tablet by mouth once daily Escitalopram Oxalate 5 mg tablet Discontinued 0 .ROUTE .COMPLEX 90 March 31, 2024 6:11pm April 22, 2024 9:47am TAKE 1 TABLET BY MOUTH EVERY DAY Start: 03-09-2024 End: 03-31-2024 take 1 tablet by mouth once daily Escitalopram Oxalate 5 mg tablet Discontinued 5 MG PO Daily March 09, 2024 [...] Status: Ordered Start: 02-02-2017 End: 11-04-2023 take 1 tablet by mouth once daily as needed Loratadine 10 mg tablet Discontinued 10 MG PO Daily as needed September 16, 2023 12:14pm November 04, 2023 10:54am Comment on above: Take 10 mg by mouth. meclizine hydrochloride 25 mg oral tablet (20 sources) Antiemetic Start: End: take 1 tablet by mouth every twelve hours as needed Meclizine 25 mg tablet Discontinued 25 MG PO Every 12 hours as needed September 16, 2023 12:16pm November 04, 2023 [...] TRANSLINGU Daily as needed September 16, 2023 12:16pm November 04, 2023 10:55am take 1 tablet by mansoor th every twenty-four hours Ondansetron 4 MG 1 tablet on the tongue and allow to dissolve Orally Once a day Active Problems Active Problems Problem Classification Problem Date Documented Date Episodic/Chronic Abdominal hernia (6 sources) Ventral incisional hernia; Translations: [Incisional hernia without obstruction or gangrene] Onset: 10-12-19 Episodic Acute posthemorrhagic anemia (20 sources) Acute posthemorrhagic anemia; Translations: [Acute posthemorrhagic anemia] Onset: 02-23-20 Episodic Anxiety disorders (20 sources) Anxiety; Translations: [Generalized anxiety disorder] 03-11-2021 Chronic Biliary tract disease (8 sources) Cholangiectasis; Translations: [Other specified diseases of biliary tract] 10-19-2023 Chronic Biliary tract disease (20 sources) Disorder of gallbladder; Translations: [Other specified diseases of gallbladder] Episodic Oliveira (11 sources) Partial thickness burn of skin of finger; Translations: [Burn of second degree of multiple left fingers (nail), not including thumb, initial encounter] 11-14-2024 Episodic Cataract (20 sources) Age-related nuclear cataract of right eye; Translations: [Age-related nuclear cataract, right eye] Onset: 08-24-19 Resolved : 09-28-1908-24-2024 Chronic Chronic kidney disease (2 sources) Chronic kidney disease; Translations: [Chronic kidney disease, unspecified] 11-21-2024 Chronic Conditions associated with dizziness or vertigo (20 sources) Benign paroxysmal positional vertigo; Translations: [Benign paroxysmal vertigo, bilateral] 03-13-2021 Episodic Coronary atherosclerosis and other heart disease (20 sources) Coronary arteriosclerosis; Translations: [Atherosclerotic heart disease of [place] coronary artery without angina pectoris] Onset: 05-19-2009-13-2021 Chronic Comment on above: Echo: LVEF 70%, JOAN, normal RV size/function, RVSP 04/2024 Diabetes mellitus with complications (20 sources) Hyperglycemia due to type 2 diabetes mellitus; Translations: [Type 2 diabetes mellitus with hyperglycemia] Onset: 09-18-19 Chronic Diabetes mellitus without complication (20 sources) Type 2 diabetes mellitus; Translations: [Type 2 diabetes mellitus without complications] Onset: 03-18-2009-13-2021 Chronic Disorders of lipid metabolism (20 sources) Hyperlipidemia; Translations: [Hyperlipidemia, unspecified] Onset: 09-18-1909-13-2021 Chronic Esophageal disorders (15 sources) Gastro-esophageal reflux disease with esophagitis; Translations: [Gastroesophageal reflux disease with esophagitis without hemorrhage] 03-11-2021 Chronic Essential hypertension (20 sources) Hypertensive disorder; Translations: [Essential (primary) hypertension] Onset: 09-18-1909-13-2021 Chronic Genitourinary symptoms and ill-defined conditions (1 source) Post-micturition incontinence 04-14-2019 Chronic Genitourinary symptoms and ill-defined conditions (2 sources) Increased frequency of urination; Translations: [Nocturia] 04-14-2019 Episodic Hyperplasia of prostate (1 source) Benign prostatic hypertrophy with outflow obstruction 04-14-2019 Chronic Inflammation; infection of eye (except that caused by tuberculosis or sexually transmitteddisease) (2 sources) Blepharitis of upper and lower eyelids of bilateral eyes; Translations: [Unspecified blepharitis right eye, upper and lower eyelids] Onset: 01-07-20 25 01-06-2025 Episodic Mycoses (10 sources) Pain in toe; Translations: [Tinea unguium] 05-29-2024 Episodic Occlusion or stenosis of precerebral arteries (20 sources) Left carotid artery stenosis; Translations: [Occlusion and stenosis of left carotid artery] Onset: 09-12-19 Chronic Osteoarthritis (20 sources) Osteoarthritis of knee; Translations: [Bilateral primary osteoarthritis of knee] Onset: 06-18-20 Chronic Osteoporosis (1 source) Age-related osteoporosis without current pathological fracture; Translations: [AGE-REL OSTEOPOR W/O CURR PATH FX] Onset: 11-16-19 Chronic Other aftercare (15 sources) 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; Translations: [penitentiary (current) use of antithrombotics/antiplatel ets] 09-13-2021 Episodic Comment on above: PSA: 0.27 - 09/2023 Other aftercare (1 source) Long-term current use of drug therapy; Translations: [penitentiary (current) use of antithrombotics/antiplatel ets] 09-13-2021 Episodic Other and unspecified benign neoplasm (1 source) Benign neoplasm of transverse colon 04-16-2021 Episodic Other and unspecified benign neoplasm (1 source) History of polyp of colon 03-14-2021 Episod ic Other and unspecified benign neoplasm (20 sources) Benign neoplasm of colon; Translations: [Benign neoplasm of colon, unspecified] Episodic Other and unspecified benign neoplasm (3 sources) Benign neoplasm of colon, unspecified Episodic Other and unspecified benign neoplasm (15 sources) Familial multiple polyposis syndrome; Translations: [Familial multiple polyposis syndrome] Onset: 09-25-19 Resolved : 10-01-1909-07-2023 Episodic Comment on above: s/p hemicolectomyCon tinue surveillance colonoscopy, last scope 2022 (repeat 3 years) Other diseases of veins and lymphatics (4 sources) Lymphedema of left lower limb; Translations: [Lymphedema, not elsewhere classified] 11-17-2024 Chronic Other diseases of veins and lymphatics (4 sources) Lymphedema, not elsewhere classified; Translations: [Other lymphedema] 11-17-2024 Chronic Other diseases of veins and lymphatics (1 source) Venous insufficiency of leg; Translations: [Venous insufficiency (chronic) (peripheral)] 11-21-2024 Episodic Other diseases of veins and lymphatics (1 source) Venous insufficiency (chronic) (peripheral); Translations: [Venous (peripheral) insufficiency, unspecified] 11-21-2024 Episodic Other eye disorders (2 sources) Dry eyes; Translations: [Dry eye syndrome of bilateral lacrimal glands] Onset: 01-07-2001-06-2025 Episodic Other liver diseases (8 sources) Elevated liver enzymes level; Translations: [Abnormal levels of other serum enzymes] 10-19-2023 Episodic Other lower respiratory disease (2 sources) Snoring; Translations: [Snoring] 06-07-2024 Episodic Other nervous system disorders (1 source) Other chronic pain; Translations: [OTHER CHRONIC PAIN] Onset: 11-06-19 Chronic Other nervous system disorders (4 sources) Bilateral carpal tunnel syndrome; Translations: [Carpal tunnel syndrome, bilateral upper limbs] 06-07-2024 Chronic Other nervous system disorders (4 sources) Ulnar neuropathy; Translations: [Lesion of ulnar nerve, unspecified upper limb] 06-07-2024 Chronic Other nervous system disorders (20 sources) Paresthesia; Translations: [Paresthesia of skin] 06-07-2024 Episodic Other non-traumatic joint disorders (4 sources) Pain in left hip; Translations: [PAIN IN LEFT HIP] Onset: 11-29-19 Episodic Other non-traumatic joint disorders (15 sources) Pain in left knee; Translations: [Left knee pain] Onset: 03-30-20 Episodic Other nutritional; endocrine; and metabolic disorders (20 sources) Body mass index 30+ - obesity; Translations: [Obesity, unspecified] 09-13-2021 Chronic Other nutritional; endocrine; and metabolic disorders (10 sources) Obese class II; Translations: [Obesity, unspecified] Onset: 09-26-1909-30-2021 Chronic Other nutritional; endocrine; and metabolic disorders (20 sources) Morbid obesity; Translations: [Morbid (severe) obesity due to excess calories] Onset: 10-15-19 24 03-13-2021 Chronic Other nutritional; endocrine; and metabolic [...] nutritional; endocrine; and metabolic disorders (8 sources) Obesity; Translations: [Obesity, unspecified] 10-01-2023 Chronic Other nutritional; endocrine; and metabolic disorders (2 sources) Obesity, unspecified; Translations: [Obesity, unspecified] 11-04-2023 Chronic Other screening for suspected conditions (not mental disorders or infectious disease) (20 sources) Imaging of biliary tract abnormal; Translations: [Prerenal azotemia] Onset: 05-04-20 24 03-14-2021 Episodic Other skin disorders (20 sources) Vesicular eczema of hands and/or feet; Translations: [Dyshidrosis [pompholyx]] Episodic Other skin disorders (8 sources) Asteatosis cutis; Translations: [Xerosis cutis] 05-29-2024 Episodic Peripheral and visceral atherosclerosis (17 sources) Atherosclerosis of [place] arteries of extremities with rest pain, right leg; Translations: [Atherosclerosis of [place] artery of right lower extremity with rest pain] Chronic Residual codes; unclassified (11 sources) Sleep apnea; Translations: [Sleep apnea, unspecified] 09-13-2021 Chronic Residual codes; unclassified (20 sources) Obstructive sleep apnea syndrome; Translations: [Obstructive sleep apnea (adult) (pediatric)] 09-07-2023 Chronic Residual codes; unclassified (14 sources) Obstructive sleep apnea (adult) (pediatric); Translations: [Obstructive sleep apnea (adult)(pediatric)] Chronic Residual codes; unclassified (20 sources) History of colectomy; Translations: [Acquired absence of other specified parts of digestive tract] Episodic Residual codes; unclassified (2 sources) Not getting enough sleep; Translations: [Insomnia, unspecified] 06-07-2024 Episodic Residual codes; unclassified (1 source) History of hernia repair; Translations: [Other specified postprocedural states] 10-20-2024 Episodic Retinal detachments; defects; vascular occlusion; and retinopathy (2 sources) Epiretinal membrane of left eye; Translations: [Puckering of macula, left eye] Onset: 01-07-20 25 01-06-2025 Chronic Screening and history of mental health and substance abuse codes (1 source) Ex-smoker 04-14-2019 Episodic Spondylosis; intervertebral disc disorders; other back problems (20 sources) Lumbar spondylosis; Translations: [Lumbosacral spondylosis with radiculopathy] Onset: 03-12-2003-11-2021 Chronic Spondylosis; intervertebral disc disorders; other back problems (6 sources) Spinal stenosis; Translations: [Spinal stenosis, site unspecified] 05-20-2024 Episodic Comment on above: MRI 05/2024 Substance-related disorders (1 source) Smoker 04-14-2019 Chronic Comment on above: Added secondary to d ocumentation in Social History. Unclassified (1 source) Drug therapy finding 04-14-2019 Unclassified (1 source) Finding of sensation of bladder 04-14-2019 Unclassified (4 sources) LOW BACK PAIN, UNSPECIFIED; Translations: [LOW BACK PAIN, UNSPECIFIED] Onset: 06-18-20 Unclassified (1 source) CONTACT W/AND (SUSP) EXPOS COVID-19; Translations: [CONTACT W/AND (SUSP) EXPOS COVID-19] Onset: 07-03-20 Past or Other Problems Problem Classification Problem Date Documented Da te Episodic/Chronic Esophageal disorders (10 sources) Esophageal disorders; Translations: [Gastroesophageal reflux disease with esophagitis without hemorrhage] Other aftercare (3 sources) Other residential (current) drug therapy; Translations: [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] Onset: 09-17-2022 Episodic Other and unspecified benign neoplasm (13 sources) Polyp of colon; Translations: [Polyp of colon] Onset: 06-07-2021 06-07-2021 Episodic Other connective tissue disease (2 sources) Pain of toes of bilateral feet; Translations: [Pain in right toe(s)] 03-20-2024 Episodic Unclassified (1 source) LOW BACK PAIN, UNSPECIFIED; Translations: [LOW BACK PAIN, UNSPECIFIED] Onset: 04-24-2022 Results Test Name Value Interpretation Reference Range Facility SEGMENTAL BLOOD PRESSUREon 0 12-22-2024 [place] [address] Cardiology Report Signed Patient: LIZZY YEE MR#: [id number] : 1945 Acct:[id number] Age/Sex: 78 / M ADM Date: 12/22/24 Loc: CARD Attending Dr: Anderson Robledo M.D. Ordering Physician: Anderson Robledo M.D. Date of Service: 12/22/24 Procedure(s): CA segmental UE or LE ZHENG Accession Number(s): [id number] cc: Juancarlos Cuenca D.O.; Anderson Robledo M.D. 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 Interpretive Statements Summary of the findings: Right leg: JAMIR= 1.06; TBI= 0.63. Doppler waveforms demonstrate monophasic flow at the posterior tibial and dorsalis pedis arteries. Left leg: JAMIR= 1.67; TBI= 0.52. Doppler waveforms demonstrate monophasic flow at the posterior tibial and dorsalis pedis arteries. Segmental pressures: Segmental pressures are abnormal bilaterally due to noncompressible vessels. Pulse volume recordings: PVRs at the high thigh, below knee, and ankle levels show blunted waveforms. Conclusion: Normal Right and noncompressible left ankle-brachial indices at rest. Toe-brachial indices are suggestive of PAD. Mostly moncompressible calcified vessels in the legs preclude accurate assessment. The study shows evidence of PAD. Different imaging study (ultrasound, CT angiogram) can provide better characterization. Electronically Signed On 12-22-2024 20:36:17 EDT by CRISTELA OCAMPO M.D. Dictated By: CRISTELA OCAMPO Signed By: 12/22/24203512/22/242035 DD/ 08 TD/TT: Senior Underwriter: [facility] Radiology, Radiologist, MD - 12/22/2024 [place] [address] Cardiology Report Signed Patient: LIZZY YEE MR#: [id number] : 1945 Acct:[id number] Age/Sex: 78 / M ADM Date: 12/22/24 Loc: CARD Attending Dr: Anderson Robledo M.D. Ordering Physician: Anderson Robledo M.D. Date of Service: 12/22/24 Procedure(s): CA segmental UE or LE ZHENG Accession Number(s): [id number] cc: Juancarlos Cuenca D.O.; Anderson Robledo M.D. 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 Interpretive Statements Summary of the findings: Right leg: JAMIR= 1.06; TBI= 0.63. Doppler waveforms demonstrate monophasic flow at the posterior tibial and dorsalis pedis arteries. Left leg: JAMIR= 1.67; TBI= 0.52. Doppler waveforms demonstrate monophasic flow at the posterior tibial and dorsalis pedis arteries. Segmental pressures: Segmental pressures are abnormal bilaterally due to noncompressible vessels. Pulse volume recordings: PVRs at the high thigh, below knee, and ankle levels show blunted waveforms. Conclusion: Normal Right and noncompressible left ankle-brachial indices at rest. Toe-brachial indices are suggestive of PAD. Mostly moncompressible calcified vessels in the legs preclude accurate assessment. The study shows evidence of PAD. Different imaging study (ultrasound, CT angiogram) can provide better characterization. Electronically Signed On 12-22-2024 20:36:17 EDT by CRISTELA OCAMPO M.D. Dictated By: CRISTELA OCAMPO Signed By: 12/22/24203512/22/242035 DD/ 08 TD/TT: Senior Underwriter: [facility] Radiology Study observation (narrative) [facility] SEGMENTAL BLOOD PRESSUREOrde red By: Radiologist Radiology on 12-22-2024 [facility] Work Phone: Basophils Auto (Bld) [#/Vol] on 10-27-2024 Basophils (Bld) [#/Vol] Automated basophil count 0.0-0.1 [facility] Basophils/100 WBC Auto (Bld) on 10-27-2024 Basophils/100 WBC (Bld) Automated basophil % 0.2-2.0 [facility] Cholesterol in LDL Calc [Mas s/Vol]on 10-27-2024 Cholesterol in LDL [Mass/Vol] Cholesterol in LDL [Mass/volume] in Serum or Plasma by calculation [facility] Comment on above: <100 mg/dl [id number] 0-129 mg/dl NEAR OR ABOVE [id number] mg/dl BORDERLINE [id number] mg/dl HIGH>190 mg/dl VERY HIGH Cholesterol in VLDL Calc [Ma ss/Vol]on 10-27-2024 Cholesterol in VLDL [Mass/Vol] Cholesterol in VLDL [Mass/volume] in Serum or Plasma by calculation [facility] Eosinophils/100 WBC Auto (Bl d)on 10-27-2024 Eosinophils/100 WBC (Bld) Automated eosinophil % 0.9-7.0 [facility] Erythrocyte distribution wid th Auto (RBC) [Ratio]on 10-27-2024 Erythrocyte distribution width (RBC) [Ratio] Erythrocyte distribution width [Ratio] by Automated count 11.0-15.0 [facility] Estimated glomerular filtrat ion rate (GFR) non- Americanon 10-27-2024 GFR/1.73 sq M.predicted among non-blacks MDRD (S/P/Bld) [Vol rate/Area] Estimated glomerular filtration rate (GFR) non- Low >=60 mL/min/1.73m 2 [facility] Globulin Calc (S) [Mass/Vol] on 10-27-2024 Globulin (S) [Mass/Vol] Serum globulin measurement by calculation (mass/volume) [facility] Glucose mean value [Mass/vol ume] in Blood Estimated from glycated hemoglobinon 10-27-2024 Average glucose Estimated from glycated hemoglobin (Bld) [Mass/Vol] Glucose mean value [Mass/volume] in Blood Estimated from glycated hemoglobin [facility] Hematocrit Auto (Bld) [Volum e fraction]on 10-27-2024 Hematocrit (Bld) [Volume fraction] Hematocrit [Volume Fraction] of Blood by Automated count Low 42.0-54.0 [facility] Hemoglobin A1c percentageon 10-27-2024 HbA1c (Bld) [Mass fraction] Hemoglobin A1c percentage High 4.5-6.2 [facility] Comment on above: ADA RECOMMENDED LIMI T 4.0 - 6.0ADA THERAPEUTIC TARGET < 7.0ACTION SUGGESTED> 7.0 Hemoglobin [Mass/volume] in Bloodon 10-27-2024 Hemoglobin (Bld) [Mass/Vol] Hemoglobin [Mass/volume] in Blood 14.0-18.0 [facility] Laboratory - Chemistry and C hemistry - challengeon 10-27-2024 Albumin [Mass/Vol] 3.6 g/dL 3.4-5.0 [facility] ALP [Catalytic activity/Vol] 125 U/L High 46-116 [facility] ALT [Catalytic activity/Vol] 22 U/L 16-63 [facility] AST [Catalytic activity/Vol] 15 U/L 15-37 [facility] Bilirubin [Mass/Vol] 0.8 mg/dL 0.2-1.0 [facility] Calcium [Mass/Vol] 9.3 mg/dL 8.5-10.1 [facility] Chloride [Moles/Vol] 104 mmol/L 98-107 [facility] Cholesterol [Mass/Vol] 103 mg/dL <=200 [facility] Cholesterol in HDL [Mass/Vol] 46 mg/dL 40-60 [facility] Comment on above: > or =60 mg/dl - LOW CARDIOVASCULAR RISK<40 mg/dl - HIGH CARDIOVASCULAR RISK CO2 [Moles/Vol] 26.5 mmol/L 21.0-32.0 [facility] Creatinine [Mass/Vol] 1.47 mg/dL High 0.70-1.30 [facility] GFR/1.73 sq M.predicted MDRD (S/P/Bld) [Vol rate/Area] 56 mL/min/{1.73_m2} Low >=60 mL/min/1.73m 2 [facility] Glucose [Mass/Vol] 122 mg/dL High 74-106 [facility] Potassium [Moles/Vol] 4.6 mmol/L 3.5-5.1 [facility] Protein [Mass/Vol] 7.0 g/dL 6.4-8.2 [facility] Sodium [Moles/Vol] 140 mmol/L 136-145 [facility] Triglyceride [Mass/Vol] 85 mg/dL <=150 [facility] Urea nitrogen [Mass/Vol] 31.0 mg/dL High 7.0-18.0 [facility] Urea nitrogen/Creatinine [Mass ratio] 21.1 mg/mg [facility] Laboratory - Hematology and Cell countson 10-27-2024 Immature granulocytes/100 WBC (Bld) 0.1 % 0.0-0.5 [facility] Leukocytes [#/volume] correc maru for nucleated erythrocytes in Blood by Automated counon 10-27-2024 WBC corrected for nucl RBC Auto (Bld) [#/Vol] Leukocytes [#/volume] corrected for nucleated erythrocytes in Blood by Automated coun 4.0-11.0 [facility] Lymphocytes Auto (Bld) [#/Vo l]on 10-27-2024 Lymphocytes (Bld) [#/Vol] Lymphocytes [#/volume] in Blood by Automated count 1.2-3.8 [facility] Lymphocytes/100 WBC Auto (Bl d)on 10-27-2024 Lymphocytes/100 WBC (Bld) Lymphocytes/100 leukocytes in Blood by Automated count 20.5-60.0 [facility] MCH Auto (RBC) [Entitic mass ]on 10-27-2024 MCH (RBC) [Entitic mass] MCH [Entitic mass] by Automated count 25.9-34.0 [facility] MCHC Auto (RBC) [Mass/Vol]on 10-27-2024 MCHC (RBC) [Mass/Vol] MCHC [Mass/volume] by Automated count 29.9-35.2 [facility] MCV Auto (RBC) [Entitic vol] on 10-27-2024 MCV (RBC) [Entitic vol] MCV [Entitic volume] by Automated count 80.0-94.0 [facility] Microalbumin [Mass/volume] i n Urineon 10-27-2024 Albumin DL <= 20 mg/L (U) [Mass/Vol] Microalbumin [Mass/volume] in Urine <=30.0 [facility] Monocytes Auto (Bld) [#/Vol] on 10-27-2024 Monocytes (Bld) [#/Vol] Automated blood monocyte count 0.3-0.8 [facility] Monocytes/100 WBC Auto (Bld) on 10-27-2024 Monocytes/100 WBC (Bld) Automated monocyte % 1.7-12.0 [facility] Neutrophils Auto (Bld) [#/Vo l]on 10-27-2024 Neutrophils (Bld) [#/Vol] Neutrophils [#/volume] in Blood by Automated count 1.4-6.5 [facility] Neutrophils/100 WBC Auto (Bl d)on 10-27-2024 Neutrophils/100 WBC (Bld) Automated neutrophil % 43.0-75.0 [facility] No Panel Informationon 10-27 Eosinophils # (Auto) 0.2 10 3/uL 0.0-0.7 [facility] Immature Granulocyte # (Auto) 0.01 10 3/uL 0.00-0.03 [facility] Prostate Specific Antigen Screen 0.38 ng/mL <=4.00 [facility] Urine Random Creatinine 104.11 mg/dL 20.00-300.00 [facility] Platelet mean volume Auto (B ld) [Entitic vol]on 10-27-2024 Platelet mean volume (Bld) [Entitic vol] Platelet mean volume [Entitic volume] in Blood by Automated count 9.5-13.5 [facility] Platelets Auto (Bld) [#/Vol] on 10-27-2024 Platelets (Bld) [#/Vol] Platelets [#/volume] in Blood by Automated count 150-450 [facility] RBC Auto (Bld) [#/Vol]on RBC (Bld) [#/Vol] Erythrocytes [#/volume] in Blood by Automated count Low 4.70-6.10 [facility] Serum or plasma albumin/glob ulin mass ratioon 10-27-2024 Albumin/Globulin [Mass ratio] Serum or plasma albumin/globulin mass ratio [facility] Serum or plasma anion gap de terminationon 10-27-2024 Anion gap [Moles/Vol] Serum or plasma an ion gap determination [facility] Serum or plasma total choles terol/high density lipoprotein (HDL) cholesterol mass venu 10-27-2024 Cholesterol.total/Cho lesterol in HDL [Mass ratio] Serum or plasma total cholesterol/high density lipoprotein (HDL) cholesterol mass rat [facility] Comment on above: 3.3 - 4.4 LOW RISK4. 4 - 7.1 AVERAGE RISK7.1 - 11.0 MODERATE RISK>11.0 HIGH RISK Urine microalbumin/creatinin e mass ratioon 10-27-2024 Albumin/Creatinine DL <= 20 mg/L (U) [Mass ratio] Urine microalbumin/creatinin e mass ratio 0.0-29.9 [facility] Comment on above: NO MICROALBUMINURIA 0-29 MG/GCLINICAL MICROALBUMINURIA 30-300 MG/GMACROALBUMINURIA >300 MG/G CNOVon 10-20-2024 CNOV Office Visit ([facility] ) LIZZY YEE ([id number]) 1945 M Date Time Provider Department 10/20/24 1:40 PM JAY GONZALEZ [facility] During your visit today, we recorded the following information about you: Temperature Pulse Blood pressure 97 degrees 60/minute 143/78 Jay Gonzalez MD 10/20/2024 2:04 PM Signed [facility] Abdominal [facility] - Follow Up Visit Assessment/Plan: [...] Gonzalez MD 10/20/24, 2:03 PM General Surgery [facility] Medical Decision Making: Problems: Low: Stable chronic illness Risk: Minimal: Minimal risk from testing/treatment Medical Decision Making Level: 2 - Straightforward Referring Provider: JAY GONZALEZ [[id number]] Allergies As of Date: 10/20/2024 (No Known [...] Status:Closed by JAY GONZALEZ on 10/20/24 Normal [facility] Cholesterol in LDL Calc [Mas s/Vol]on 08-27-2024 Cholesterol in LDL [Mass/Vol] Cholesterol in LDL [Mass/volume] in Serum or Plasma by calculation [facility] Comment on above: <100 mg/dl [id number] 0-129 mg/dl NEAR OR ABOVE LHWGFKO046-785 mg/dl BORDERLINE [id number] mg/dl HIGH>190 mg/dl VERY HIGH Cholesterol in VLDL Calc [Ma ss/Vol]on 08-27-2024 Cholesterol in VLDL [Mass/Vol] Cholesterol in VLDL [Mass/volume] in Serum or Plasma by calculation [facility] Laboratory - Chemistry and C hemistry - challengeon 08-27-2024 Cholesterol [Mass/Vol] 110 mg/dL <=200 [facility] Cholesterol in HDL [Mass/Vol] 42 mg/dL 40-60 [facility] Comment on above: > or =60 mg/dl - LOW CARDIOVASCULAR RISK<40 mg/dl - HIGH CARDIOVASCULAR RISK Triglyceride [Mass/Vol] 140 mg/dL <=150 [facility] Serum or plasma total choles terol/high density lipoprotein (HDL) cholesterol mass venu 08-27-2024 Cholesterol.total/Cho lesterol in HDL [Mass ratio] Serum or plasma total cholesterol/high density lipoprotein (HDL) cholesterol mass rat [facility] Comment on above: 3.3 - 4.4 [...] purposes. Calculation made for both eyes (OU). [facility] Radiology Study observation (narrative) [facility] 36on 05-13-2024 36 Patients Daughter called back and confirms he has NOT been taking the Atorvastatin and has not had a prescription, advised the daughter we would send in a new prescription and recheck his cholesterol in 3 month, Lab order mailed to patient to complete june/ july [facility] 36on 05-12-2024 36 Patient calling for echo and lab results. 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 Please advise. Thanks. [facility] Office Visiton 05-04-2024 Follow-up visit [id number] Vu Yee Jorge 1945 M Date Provider Department Center 05/04/2024 [id number] Family History Problem Relation Age of Onset Coronary artery disease Mother Coronary artery disease Brother Family Status - Relation Status Age at Mother Brother Level of Service:36044 [place] OFFICE/OUTPATIENT ESTABLISHED MOD MDM 30 MIN [facility] XR knee LT 4V*on 04-21-2024 XR knee LT 4V* [facility] [address] [place] [address] XRay Report Signed Patient: Lizzy Yee MR#: [id number] : 1945 Acct:[id number] Age/Sex: 78 / M ADM Date: 04/21/24 [place] [facility] [place]: Type: [facility] Attending Dr: Ej Anthony II, MD Copies to: Ej Anthony MD Ordering Provider: Ej Anthony MD Date of Service: 04/21/24 XR/XR pelvis 1-2V: M25.562 - Pain in left knee ([id number]) XR/XR knee LT 4V*: M25.562 - Pain [...] Jimenez Jr., D.O.04/21/2024 2:51 PM Dictation Location: [facility]14 Transcribed By: [facility] 04/21/24 1451 Dictated By: Jus Jimenez Jr, DO 04/21/24 1449 Signed By: 04/21/24 1451 Normal [facility] CNPPeyton 10-27-2023 [facility] Telephone ([facility]) LIZZY YEE ([id number]) 1945 M Date Time Provider Department 10/27/23 JAY GONZALEZ [facility] During your visit today, we recorded the [...] Patient and or can be reached at [phone]. Thank you. Efrain Loza, NILAM 10/28/2023 8:30 [...] Status:Closed by EFRAIN ZAMARRIPA on 10/28/23 Normal [facility] Cholesterol in LDL Calc [Mas s/Vol]on 10-09-2023 Cholesterol in LDL [Mass/Vol] 46.6 mg/dL [facility] Comment on above: <100 mg/dl [id number] 0-129 mg/dl NEAR OR ABOVE BWBRMTT409-030 mg/dl BORDERLINE [id number] mg/dl HIGH>190 mg/dl VERY HIGH Cholesterol in VLDL Calc [Ma ss/Vol]on 10-09-2023 Cholesterol in VLDL [Mass/Vol] 14.4 mg/dL [facility] Estimated glomerular filtrat ion rate (GFR) non- Americanon 10-09-2023 GFR/1.73 sq M.predicted among non-blacks MDRD (S/P/Bld) [Vol rate/Area] 54 mL/min/{1.73_m2} >=60 [facility] Globulin Calc (S) [Mass/Vol] on 10-09-2023 Globulin (S) [Mass/Vol] 3.9 g/dL [facility] Glucose mean value [Mass/vol ume] in Blood Estimated from glycated hemoglobinon 10-09-2023 Average glucose Estimated from glycated hemoglobin (Bld) [Mass/Vol] 186 mg/dL [facility] Laboratory - Chemistry and C hemistry - challengeon 10-09-2023 Albumin [Mass/Vol] 3.4 g/dL 3.4-5.0 [facility] ALP [Catalytic activity/Vol] 210 U/L 46-116 [facility] ALT [Catalytic activity/Vol] 236 U/L 16-63 [facility] AST [Catalytic activity/Vol] 169 U/L 15-37 [facility] Bilirubin [Mass/Vol] 0.8 mg/dL 0.2-1.0 [facility] Calcium [Mass/Vol] 9.1 mg/dL 8.5-10.1 [facility] Chloride [Moles/Vol] 101 mmol/L 98-107 [facility] Cholesterol [Mass/Vol] 107 mg/dL <=200 [facility] Cholesterol in HDL [Mass/Vol] 46 mg/dL 40-60 [facility] Comment on above: > or =60 mg/dl - LOW CARDIOVASCULAR RISK<40 mg/dl - HIGH CARDIOVASCULAR RISK CO2 [Moles/Vol] 28.4 mmol/L 21.0-32.0 [facility] Creatinine [Mass/Vol] 1.29 mg/dL 0.70-1.30 [facility] GFR/1.73 sq M.predicted MDRD (S/P/Bld) [Vol rate/Area] mL/min/{1.73_m2} >=60 [facility] Glucose [Mass/Vol] 100 mg/dL 74-106 [facility] Potassium [Moles/Vol] 4.1 mmol/L 3.5-5.1 [facility] Protein [Mass/Vol] 7.3 g/dL 6.4-8.2 [facility] Sodium [Moles/Vol] 140 mmol/L 136-145 [facility] Triglyceride [Mass/Vol] 72 mg/dL <=150 [facility] Urea nitrogen [Mass/Vol] 23.0 mg/dL 7.0-18.0 [facility] Urea nitrogen/Creatinine [Mass ratio] 17.8 mg/mg [facility] Laboratory - Hematology and Cell countson 10-09-2023 HbA1c (Bld) [Mass fraction] 8.1 % 4.5-6.2 [facility] Comment on above: ADA RECOMMENDED LIMI T 4.0 - 6.0ADA THERAPEUTIC TARGET < 7.0ACTION SUGGESTED> 7.0 Microalbumin [Mass/volume] i n Urineon 10-09-2023 Albumin DL <= 20 mg/L (U) [Mass/Vol] mg/dL <=30.0 [facility] No Panel Informationon 10-08 Prostate Specific Antigen Screen 0.27 ng/mL <=4.00 [facility] Serum or plasma albumin/glob ulin mass ratioon 10-09-2023 Albumin/Globulin [Mass ratio] 0.9 {ratio} [facility] Serum or plasma anion gap de terminationon 10-09-2023 Anion gap [Moles/Vol] 14.7 mmol/L [facility] Serum or plasma total choles terol/high density lipoprotein (HDL) cholesterol mass venu 10-09-2023 Cholesterol.total/Cho lesterol in HDL [Mass ratio] 2.3 {ratio} [facility] Comment on above: 3.3 - 4.4 LOW RISK4. 4 - 7.1 AVERAGE RISK7.1 - 11.0 MODERATE RISK>11.0 HIGH RISK Outside Colonoscopyon 2022 Outside Colonoscopy [id number]#1.0 0CD:127 Normal [facility] Reminderson 12-18-2022 Reminders - From: Amy Menon LPN To: GSN - Clinical; Sent: 12/18/2022 12:06:16 EDT Show up: 11/16/2025 07:00:00 EDT Subject: colonoscopy recall Due Date/Time: 12/17/2025 07:00:00 EDT Reminder/Recall Patient due for surveillance colonoscopy 12/17/2025. Normal [facility] POINT OF CARE GLUCOSEon 11-19 Glucose [Mass/Vol] 176 mg/dL Critically high 74-106 [facility] Comment on above: Performed By: #### P OCGLUC #### [facility] [address] [address] [address] Rojelio Kingsley POINT OF CARE GLUCOSEon 11-19 Glucose [Mass/Vol] 157 mg/dL Critically high 74-106 [facility] Comment on above: Performed By: #### P OCGLUC #### [facility] [address] [address] [address] Rojelio Kingsley Consent for Procedure/Surger yon 12-03-2022 Consent for Procedure/Surgery [id number] 0CD:127 Normal [facility] Physician Referralon 023 Physician Referral [id number] 0CD:127 Normal [facility] General Surgery Office/Clini c Noteon 12-02-2022 [...] 1 tab(s), (more content not included)... Normal [facility] Comment on above: Result Comment: Elec tronically Signed By: PELON VANESSA, Nya Patel\.marion\Date and Time Signed: 12/02/22 11:37 EDT POINT OF CARE GLUCOSEon - Glucose [Mass/Vol] 121 mg/dL Critically high 74-106 [facility] Comment on above: Performed By: #### P OCGLUC #### [facility] [address] [address] [address] Rojelio Kingsley ALLIED HEALTHon 10-11-2022 ALLIED [facility]ALTH HNO ID: [id number] Author: Glenda Romo RT(R) Service: Radiology Author [...] Romo RT(R) October 11, 2022 10:29 AM Normal [facility] CT ABD/PEL WO IVCONon 2022 [...] site. Lower thorax: Lower lungs are clear. Back Hanger (topogram) images: Unremarkable. IMPRESSION: Midline fat-containing upper abdominal hernia. Senior Underwriter: DANIEL Transcribe Date/Time: Oct 13 2022 7:57A Dictated by : YANICK RIVAS MD This examination was interpreted and the report reviewed and electronically signed by: YANICK RIVAS MD on Oct 13 2022 8:06AM EST [id number] Normal [facility] Consent for Procedure/Surger yon 09-17-2022 Consent for Procedure/Surgery [id number] 0CD:127 Normal [facility] RAD - Ultrasound Reporton RAD - Ultrasound Report [id number] 0CD:127 Normal [facility] Ambulatory Visit Summaryon 0 09-16-2022 Ambulatory [...] no longer receiving treatment for. Hyperlipidemia Normal [facility] Ambulatory Visit Summary LIZZY YEE :1945 [...] no longer receiving treatment for. Hyperlipidemia Normal [facility] General Surgery Office/Clini c Noteon 09-16-2022 [...] Oral, Nathalie (more content not included)... Normal [facility] Comment on above: Result Comment: Elec tronically Signed By: PELON VANESSA, Nya Nicholson\Date and Time Signed: 09/16/22 11:17 EST Alanine Aminotransferaseon 0 - ALT [Catalytic activity/Vol] 30 U/L Normal 16-63 [employer] Other Comment on above: Performed By: #### B MP, ALT, LIPID #### [facility] [address] [place] [address] Dr. Rojelio Kingsley Basic Metabolic Panelon 08-21 Calcium [Mass/Vol] 9.2106054 mg/dL 8.5-10 .1 mg/dL [employer] Other CO2 [Moles/Vol] 25.13846543 mmol/L 21.0-3 2.0 mmol/L [employer] Other Creatinine [Mass/Vol] 1.81400156 mg/dL Critically high 0.70-1.30 mg/dL [employer] Other Potassium [Moles/Vol] 4.24906405 mmol/L 3 .5-5.1 mmol/L [employer] Other Urea nitrogen [Mass/Vol] 16.4441255 mg/dL 7.0-18.0 mg/dL [employer] Other Basic Metabolic Panel see note [employer] Other Basic Metabolic Panel 141 mmol/L 136-14 5 mmol/L [employer] Other Basic Metabolic Panel 134 mg/dL Critically high 74-106 mg /dL [employer] Other Basic Metabolic Panel 51 mL/min/1.73m2 Critically low >=60 mL/min/1.73m 2 [employer] Other Basic Metabolic Panel >60 mL/min/1.73m2 > =60 mL/min/1.73m 2 [facility] [employer] Other Anion gap [Moles/Vol] 15.2 mmol/L [facility] [employer] Other Comment on above: Performed By: #### B MP, ALT, LIPID #### [facility] [address] [place] [address] Dr. Rojelio Kingsley Chloride [Moles/Vol] 105 mmol/L Normal 98-107 [facility] [employer] Other Comment on above: Performed By: #### B MP, ALT, LIPID #### [facility] [address] [place] [address] Dr. Rojelio Kingsley Urea nitrogen/Creatinine [Mass ratio] 11.8 mg/mg Normal [facility] [employer] Other Comment on above: Performed By: #### B MP, ALT, LIPID #### [facility] [address] [place] [address] Dr. Rojelio Kingsley CBC AUTO DIFFon 09-12-2022 BASO # 0.0 103/ul Normal 0.0-0.1 [facility] Comment on above: Performed By: #### C BC #### [facility] [address] [place] [address] Dr. Rojelio Kingsley Basophils/100 WBC (Bld) 0.4 % Normal 0.2-2.0 [facility] Comment on above: Performed By: #### C BC #### [facility] [address] [place] [address] Dr. Rojelio Kingsley EO # 0.3 103/ul Normal 0.0-0.7 [facility] Comment on above: Performed By: #### C BC #### [facility] [address] [place] [address] Dr. Rojelio Kingsley Eosinophils/100 WBC (Bld) 3.6 % Normal 0.9-7.0 [facility] Comment on above: Performed By: #### C BC #### [facility] [address] [place] [address] Dr. Rojelio Kingsley Erythrocyte distribution width (RBC) [Ratio] 14.1 % Normal 11.0-15.0 [facility] Comment on above: Performed By: #### C BC #### [facility] [address] [place] [address] Dr. Rojelio Kingsley Hematocrit (Bld) [Volume fraction] 40.1 % Critically low 42.0-54.0 [facility] Comment on above: Performed By: #### C BC #### [facility] [address] [place] [address] Dr. Rojelio Kingsley Hemoglobin (Bld) [Mass/Vol] 13.4 g/dL Critically low 14.0-18.0 [facility] Comment on above: Performed By: #### C BC #### [facility] [address] [place] [address] Dr. Rojelio Kingsley IG # 0.02 10e3/ul Normal 0.00-0.03 [facility] Comment on above: Performed By: #### C BC #### [facility] [address] [place] [address] Dr. Rojelio Kingsley IG % 0.2 % Normal 0.0-0.5 [facility] Comment on above: Performed By: #### C BC #### [facility] [address] [place] [address] Dr. Rojelio Kingsley LYMPH # 1.8 103/ul Normal 1.2-3.8 [facility] Comment on above: Performed By: #### C BC #### [facility] [address] [place] [address] Dr. Rojelio Kingsley Lymphocytes/100 WBC (Bld) 21.9 % Normal 20.5-60.0 [facility] Comment on above: Performed By: #### C BC #### [facility] [address] [place] [address] Dr. Rojelio Kingsley MANUAL DIFF REQ NO Normal [facility] Comment on above: Performed By: #### C BC #### [facility] [address] [place] [address] Dr. Rojelio Kingsley MCH (RBC) [Entitic mass] 30.6 pg Normal 25.9-34.0 [facility] Comment on above: Performed By: #### C BC #### [facility] [address] [address] [address] Rojelio Kingsley MCHC (RBC) [Mass/Vol] 33.4 g/dL Normal 29.9-35.2 [facility] Comment on above: Performed By: #### C BC #### [facility] [address] [address] [address] Rojelio Kingsley MCV (RBC) [Entitic vol] 91.6 fL Normal 80.0-94.0 [facility] Comment on above: Performed By: #### C BC #### [facility] [address] [place] [address] Dr. Rojelio Kingsley MONO # 0.8 103/ul Normal 0.3-0.8 [facility] Comment on above: Performed By: #### C BC #### [facility] [address] [place] [address] Dr. Rojelio Kingsley Monocytes/100 WBC (Bld) 9.3 % Normal 1.7-12.0 [facility] Comment on above: Performed By: #### C BC #### [facility] [address] [place] [address] Dr. Rojelio Kingsley NEUT # 5.4 103/ul Normal 1.4-6.5 [facility] Comment on above: Performed By: #### C BC #### [facility] [address] [place] [address] Dr. Rojelio Kingsley Neutrophils/100 WBC (Bld) 64.6 % Normal 43.0-75.0 [facility] Comment on above: Performed By: #### C BC #### [facility] [address] [place] [address] Dr. Rojelio Kingsley Platelet mean volume (Bld) [Entitic vol] 10.3 fL Normal 9.5-13.5 [facility] Comment on above: Performed By: #### C BC #### [facility] [address] [place] [address] Dr. Rojelio Kingsley PLT 214 103/ul Normal 150-450 [facility] Comment on above: Performed By: #### C BC #### [facility] [address] [address] [address] Rojelio Kingsley RBC 4.38 106/ul Critically low 4.70-6.10 [facility] Comment on above: Performed By: #### C BC #### [facility] [address] [address] [address] Rojelio Kingsley WBC 8.4 103/ul Normal 4.0-11.0 [facility] Comment on above: Performed By: #### C BC #### [facility] [address] [address] [address] Rojelio Kingsley GLYCOHEMOGLOBIN A1Con 2022 ADA RECOMMENDATION SEE BELOW Normal [facility] Comment on above: Result Comment: ADA RECOMMENDED LIMIT 4.0 - 6.0 ADA THERAPEUTIC TARGET < 7.0 ACTION SUGGESTED > 7.0 Performed By: #### P OCGLUC #### [facility] [address] [place] [address] Dr. Rojelio Kingsley Glucose [Mass/Vol] 169 mg/dL Normal [facility] Comment on above: Performed By: #### P OCGLUC #### [facility] [address] [place] [address] Dr. Rojelio Kingsley HbA1c (Bld) [Mass fraction] 7.5 % Critically high 4.5-6.2 [facility] Comment on above: Performed By: #### P OCGLUC #### [facility] [address] [place] [address] Dr. Rojelio Kingsley LIPID PROFILEon 09-12-2022 CHOL-HDL RATIO NORM SEE BELOW Normal [facility] Comment on above: Result Comment: 3.3 - 4.4 LOW RISK 4.4 - 7.1 AVERAGE RISK 7.1 - 11.0 MODERATE RISK >11.0 HIGH RISK Performed By: #### B MP, ALT, LIPID #### [facility] [address] [place] [address] Dr. Rojelio Kingsley Cholesterol in LDL [Mass/Vol] 31.2 mg/dL Normal [facility] Comment on above: Performed By: #### B MP, ALT, LIPID #### [facility] [address] [place], [place] [address] Dr. Rojelio Kingsley HDL NORMAL > or = 60 mg/dl - LO W CARDIOVASCULAR RISK <40 mg/dl - HIGH CARDIOVASCULAR RISK Normal [facility] Comment on above: Performed By: #### B MP, ALT, LIPID #### [facility] [address] [place], [place] [address] Dr. Rojelio Kingsley LDL CALC NORMAL SEE BELOW Normal [facility] Comment on above: Result Comment: <100 mg/dl OPTIMAL 100 - 129 mg/dl NEAR OR ABOVE OPTIMAL 130 - 159 mg/dl BORDERLINE HIGH 160 - 189 mg/dl HIGH >190 mg/dl VERY HIGH Performed By: #### B MP, ALT, LIPID #### [facility] [address] [address] [address] Rojelio Kingsley VLDL CALC 40.8 mg/dL Normal [facility] Comment on above: Performed By: #### B MP, ALT, LIPID #### [facility] [address] [address] [address] Rojelio Kingsley Lipid Panelon 09-12-2022 Lipid Panel > or = 60 mg/dl - LO W CARDIOVASCULAR RISK <40 mg/dl - HIGH CARDIOVASCULAR RISK [employer] Other Lipid Panel SEE BELOW [employer] Other Lipid Panel 31.2 mg/dL [employer] Other Lipid Panel 40.8 mg/dL [employer] Other Cholesterol [Mass/Vol] 115 mg/dL Normal <=200 [employer] Other Comment on above: Performed By: #### B MP, ALT, LIPID #### [facility] [address] [address] [address] Rojelio Kingsley Cholesterol in HDL [Mass/Vol] 43 mg/dL Normal 40-60 [employer] Other Comment on above: Performed By: #### B MP, ALT, LIPID #### [facility] [address] [address] [address] Rojelio Kingsley Cholesterol.total/Cho lesterol in HDL [Mass ratio] 2.7 {ratio} Normal [facility] [employer] Other Comment on above: Performed By: #### B MP, ALT, LIPID #### [facility] [address] [place] [address] Dr. Rojelio Kingsley Triglyceride [Mass/Vol] 204 mg/dL Critically high <=150 [employer] Other Comment on above: Performed By: #### B MP, ALT, LIPID #### [facility] [address] [place] [address] Dr. Rojelio Kingsley MICROALBUMIN, RAND URon 08-21 mALB 2.1 mg/L Normal <=30.0 [facility] Comment on above: Performed By: #### M ALBR #### [facility] [address] [place] [address] Dr. Rojelio Kingsley PROF CHEM 8 (BAS METB)on Calcium [Mass/Vol] 9.6 mg/dL Normal 8.5-10.1 [facility] Comment on above: Performed By: #### B MP, ALT, LIPID #### [facility] [address] [place] [address] Dr. Rojelio Kingsley CO2 [Moles/Vol] 25.1 mmol/L Normal 21.0-32.0 [facility] Comment on above: Performed By: #### B MP, ALT, LIPID #### [facility] [address] [place] [address] Dr. Rojelio Kingsley Creatinine [Mass/Vol] 1.36 mg/dL Critically high 0.70-1.30 [facility] Comment on above: Performed By: #### B MP, ALT, LIPID #### [facility] [address] [place] [address] Dr. Rojelio Kingsley EGFR-AF SOMALI >60 Normal >=60 [facility] Comment on above: Performed By: #### B MP, ALT, LIPID #### [facility] [address] [place] [address] Dr. Rojelio Kingsley EGFR-NON AF SOMALI 51 mL/min/1.73m2 Critically low >=60 [facility] Comment on above: Performed By: #### B MP, ALT, LIPID #### [facility] [address] [address] [address] Rojelio Kingsley Glucose [Mass/Vol] 134 mg/dL Critically high 74-106 [facility] Comment on above: Performed By: #### B MP, ALT, LIPID #### [facility] [address] [place] [address] Dr. Rojelio Kingsley Potassium [Moles/Vol] 4.3 mmol/L Normal 3.5-5.1 [facility] Comment on above: Performed By: #### B MP, ALT, LIPID #### [facility] [address] [place] [address] Dr. Rojelio Kingsley Sodium [Moles/Vol] 141 mmol/L Normal 136-145 [facility] Comment on above: Performed By: #### B MP, ALT, LIPID #### [facility] [address] [place] [address] Dr. Rojelio Kingsley Urea nitrogen [Mass/Vol] 16.0 mg/dL Normal 7.0-18.0 [facility] Comment on above: Performed By: #### B MP, ALT, LIPID #### [facility] [address] [place] [address] Dr. Rojelio Kingsley US CAROTID ART BILon [...] to hemodynamically significant stenosis. Electronically authenticated by: AGBY Dsouza: 2022-09-12 15:22 Normal [facility] US CAROTID ART ZHENG [employer] Other POINT OF CARE GLUCOSEon 12-07 22-2021 Glucose [Mass/Vol] 106 mg/dL Normal 74-106 [facility] Comment on above: Performed By: #### P OCGLUC #### [facility] [address] [place], [place] [address] Dr. Rojelio Kingsley [facility]on SARS-CoV-2 (COVID-19) RNA MITCHELL+probe Ql (Unsp spec) Not detected Normal NOT DETECTED [facility] Comment on above: Result Comment: This test is not yet approved or cleared by the [place] FDA. When there are no FDA-approved or cleared tests available, and other criteria are met, FDA can make tests available under an emergency access mechanism called an Emergency Use Authorization (EUA). The EUA for this test is supported by the [place] of Health and Human Service's (HHS's) declaration [...] SARS-CoV-2. Performed By: #### P OCGLUC #### [facility] [address] [place], [place] [address] Dr. Rojelio Kingsley POINT OF CARE GLUCOSEon 10-2 Glucose [Mass/Vol] 129 mg/dL Critically high 74-106 [facility] Comment on above: Performed By: #### P OCGLUC #### [facility] [address] [place], [place] [address] Dr. Rojelio Kingsley POINT OF CARE GLUCOSEon 09-2 0 Glucose [Mass/Vol] 116 mg/dL Critically high 74-106 [facility] Comment on above: Performed By: #### P OCGLUC #### [facility] [address] [address] [address] Rojelio Kingsley XR LSPINE 2_3 VIEWSon [...] GABY PADILLA Date: 2022-03-05 13:06 Normal [facility] CBC AUTO DIFFon 02-22-2022 BASO # 0.0 103/ul Normal 0.0-0.1 [facility] Comment on above: Performed By: #### P OCGLUC #### [facility] [address] [place] [address] Dr. Rojelio Kingsley Basophils/100 WBC (Bld) 0.4 % Normal 0.2-2.0 [facility] Comment on above: Performed By: #### P OCGLUC #### [facility] [address] [address] [address] Rojelio Knigsley EO # 0.3 103/ul Normal 0.0-0.7 [facility] Comment on above: Performed By: #### P OCGLUC #### [facility] [address] [place] [address] Dr. Rojelio Kingsley Eosinophils/100 WBC (Bld) 3.0 % Normal 0.9-7.0 [facility] Comment on above: Performed By: #### P OCGLUC #### [facility] [address] [address] [address] Rojelio Kingsley Erythrocyte distribution width (RBC) [Ratio] 14.4 % Normal 11.0-15.0 [facility] Comment on above: Performed By: #### P OCGLUC #### [facility] [address] [place] [address] Dr. Rojelio Kingsley Hematocrit (Bld) [Volume fraction] 37.1 % Critically low 42.0-54.0 [facility] Comment on above: Performed By: #### P OCGLUC #### [facility] [address] [place] [address] Dr. Rojelio Kingsley Hemoglobin (Bld) [Mass/Vol] 12.2 g/dL Critically low 14.0-18.0 [facility] Comment on above: Performed By: #### P OCGLUC #### [facility] [address] [place] [address] Dr. Rojelio Kingsley IG # 0.03 10e3/ul Normal 0.00-0.03 [facility] Comment on above: Performed By: #### P OCGLUC #### [facility] [address] [place] [address] Dr. Rojelio Kingsley IG % 0.4 % Normal 0.0-0.5 [facility] Comment on above: Performed By: #### P OCGLUC #### [facility] [address] [place] [address] Dr. Rojelio Kingsley LYMPH # 1.8 103/ul Normal 1.2-3.8 [facility] Comment on above: Performed By: #### P OCGLUC #### [facility] [address] [place] [address] Dr. Rojelio Kingsley Lymphocytes/100 WBC (Bld) 21.6 % Normal 20.5-60.0 [facility] Comment on above: Performed By: #### P OCGLUC #### [facility] [address] [place] [address] Dr. Rojelio Kingsley MANUAL DIFF REQ NO Normal [facility] Comment on above: Performed By: #### P OCGLUC #### [facility] [address] [address] [address] Rojelio Kingsley MCH (RBC) [Entitic mass] 30.0 pg Normal 25.9-34.0 [facility] Comment on above: Performed By: #### P OCGLUC #### [facility] [address] [place] [address] Dr. Rojelio Kingsley MCHC (RBC) [Mass/Vol] 32.9 g/dL Normal 29.9-35.2 [facility] Comment on above: Performed By: #### P OCGLUC #### [facility] [address] [place] [address] Dr. Rojelio Kingsley MCV (RBC) [Entitic vol] 91.4 fL Normal 80.0-94.0 [facility] Comment on above: Performed By: #### P OCGLUC #### [facility] [address] [place] [address] Dr. Rojelio Kingsley MONO # 0.7 103/ul Normal 0.3-0.8 [facility] Comment on above: Performed By: #### P OCGLUC #### [facility] [address] [place] [address] Dr. Rojelio Kingsley Monocytes/100 WBC (Bld) 8.4 % Normal 1.7-12.0 [facility] Comment on above: Performed By: #### P OCGLUC #### [facility] [address] [place] [address] Dr. Rojelio Kingsley NEUT # 5.5 103/ul Normal 1.4-6.5 [facility] Comment on above: Performed By: #### P OCGLUC #### [facility] [address] [place] [address] Dr. Rojelio Kingsley Neutrophils/100 WBC (Bld) 66.2 % Normal 43.0-75.0 [facility] Comment on above: Performed By: #### P OCGLUC #### [facility] [address] [place] [address] Dr. Rojelio Kingsley Platelet mean volume (Bld) [Entitic vol] 10.3 fL Normal 9.5-13.5 [facility] Comment on above: Performed By: #### P OCGLUC #### [facility] [address] [address] [address] Rojelio Kingsley PLT 202 103/ul Normal 150-450 [facility] Comment on above: Performed By: #### P OCGLUC #### [facility] [address] [address] [address] Rojelio Kingsley RBC 4.06 106/ul Critically low 4.70-6.10 [facility] Comment on above: Performed By: #### P OCGLUC #### [facility] [address] [address] [address] Rojelio Kingsley WBC 8.3 103/ul Normal 4.0-11.0 [facility] Comment on above: Performed By: #### P OCGLUC #### [facility] [address] [address] [address] Rojelio Kingsley GLYCOHEMOGLOBIN A1Con 2021 ADA RECOMMENDATION SEE BELOW Normal [facility] Comment on above: Result Comment: ADA RECOMMENDED LIMIT 4.0 - 6.0 ADA THERAPEUTIC TARGET < 7.0 ACTION SUGGESTED > 7.0 Performed By: #### A 1C #### [facility] [address] [address] [address] Rojelio Kingsley Glucose [Mass/Vol] 151 mg/dL Normal [facility] Comment on above: Performed By: #### A 1C #### [facility] [address] [address] [address] Rojelio Kingsley HbA1c (Bld) [Mass fraction] 6.9 % Critically high 4.5-6.2 [facility] Comment on above: Performed By: #### A 1C #### [facility] [address] [address] [address] Rojelio Kingsley Consultation Noteon 02-19-20 Consultation Note [id number] 0CD:127 Normal [facility] KNEE RIGHT 3 [facility] 1 KNEE RIGHT 3 S [facility] Department of Radiology [address] [place] [id number] ======== Patient Name: LIZZY YEE : [...] noted. Electronically signed: Mitul Banks. Transcribed by: [email or web address], User Resident: Electronically Signed by: MITUL BANKS @ 01/09/2021 08:47 PM Normal [facility] POC GLUCOSE LABon 12-29-2020 Glucose [Mass/Vol] 194 mg/dL High 70-100 [facility] Comment on above: Performed By: #### [id number] #### [facility] [address] [place] [address], [facility] Glucose [Mass/Vol] 125 mg/dL High 70-100 [facility] Comment on above: Performed By: #### 8 [id number] #### [facility] [address] [place] [address], [place] POC GLUCOSE LABon 12-28-2020 Glucose [Mass/Vol] 197 mg/dL High 70-100 [facility] Comment on above: Performed By: #### 8 [id number] #### [facility] [address] [place] [address], [place] Glucose [Mass/Vol] 177 mg/dL High 70-100 [facility] Comment on above: Performed By: #### 8 [id number] #### [facility] [address] [place] [address], [place] Glucose [Mass/Vol] 215 mg/dL High 70-100 [facility] Comment on above: Performed By: #### 8 [id number] #### [facility] [address] [place] [address], [place] Glucose [Mass/Vol] 152 mg/dL High 70-100 [facility] Comment on above: Performed By: #### 8 [id number] #### [facility] [address] [place] [address], [place] BASIC METABOLIC PANELon 12-18 Calcium [Mass/Vol] 8.2 mg/dL Low 8.6-10.3 [facility] Comment on above: Order Comment: No: D o not add to previous draw Performed By: #### [id number] #### [facility] [address] [place] [address], [place] Chloride [Moles/Vol] 102 mmol/L Normal 98-107 [facility] Comment on above: Order Comment: No: D o not add to previous draw Performed By: #### 8 [id number] #### [facility] [address] [place] [address], [place] CO2 [Moles/Vol] 23 mmol/L Normal 21-31 [facility] Comment on above: Order Comment: No: D o not add to previous draw Performed By: #### 8 [id number] #### [facility] [address] [place] [address], [facility] Creatinine [Mass/Vol] 0.97 mg/dL Normal 0.70-1.30 [facility] Comment on above: Order Comment: No: D o not add to previous draw Performed By: #### 8 [id number] #### [facility] [address] [place] [address], [facility] GFR/1.73 sq M.predicted among blacks MDRD (S/P/Bld) [Vol rate/Area] mL/min/{1.73_m2} Normal >60 [facility] Comment on above: Order Comment: No: D o not add to previous draw Result Comment: Calc ulation may not be valid for patients over 70 years Performed By: #### 8 [id number] #### [facility] [address] [place] [address], [facility] GFR/1.73 sq M.predicted among non-blacks MDRD (S/P/Bld) [Vol rate/Area] mL/min/{1.73_m2} Normal >60 [facility] Comment on above: Order Comment: No: D o not add to previous draw Result Comment: Calc ulation may not be valid for patients over 70 years Performed By: #### 8 [id number] #### [facility] [address] [place] [address], [place] Glucose [Mass/Vol] 191 mg/dL High 70-100 [facility] Comment on above: Order Comment: No: D o not add to previous draw Performed By: #### 8 [id number] #### [facility] [address] [place] [address], [facility] Potassium [Moles/Vol] 3.8 mmol/L Normal 3.5-5.1 [facility] Comment on above: Order Comment: No: D o not add to previous draw Performed By: #### 8 [id number] #### [facility] [address] [place] [address], [facility] Sodium [Moles/Vol] 134 mmol/L Low 136-145 [facility] Comment on above: Order Comment: No: D o not add to previous draw Performed By: #### 8 [id number] #### [facility] [address] [place] [address], [facility] Urea nitrogen [Mass/Vol] 23 mg/dL Normal 7-25 [facility] Comment on above: Order Comment: No: D o not add to previous draw Performed By: #### 8 [id number] #### [facility] [address] [place] [address], [facility] CBC COMPLETE BLOOD COUNTon 0 12-27-2020 Erythrocyte distribution width (RBC) [Ratio] 13.3 % Normal 11.5-15.0 [facility] Comment on above: Order Comment: No: D o not add to previous draw Performed By: #### 8 [id number] #### [facility] [address] [place] [address], [facility] Hematocrit (Bld) [Volume fraction] 35.4 % Low 39.0-50.0 [facility] Comment on above: Order Comment: No: D o not add to previous draw Performed By: #### 8 [id number] #### [facility] [address] [place] [address], [facility] Hemoglobin (Bld) [Mass/Vol] 11.7 g/dL Low 13.0-17.0 [facility] Comment on above: Order Comment: No: D o not add to previous draw Performed By: #### 8 [id number] #### [facility] [address] [place] [address], [facility] MCH (RBC) [Entitic mass] 31.2 pg Normal 27.0-33.0 [facility] Comment on above: Order Comment: No: D o not add to previous draw Performed By: #### 8 [id number] #### [facility] [address] [place] [address], [facility] MCHC (RBC) [Mass/Vol] 33.1 g/dL Normal 32.0-35.0 [facility] Comment on above: Order Comment: No: D o not add to previous draw Performed By: #### 8 [id number] #### [facility] [address] [place] [address], [facility] MCV (RBC) [Entitic vol] 94.4 fL Normal 82.0-98.0 [facility] Comment on above: Order Comment: No: D o not add to previous draw Performed By: #### 8 [id number] #### [facility] [address] [place] [address], [facility] Nucleated RBC/100 WBC (Bld) [Ratio] 0 % Normal 0-0 [facility] Comment on above: Order Comment: No: D o not add to previous draw Performed By: #### 8 [id number] #### [facility] [address] [place] [address], [place] PLAT CNT 177 10*3/uL Normal 150-400 [facility] Comment on above: Order Comment: No: D o not add to previous draw Performed By: #### 8 [id number] #### [facility] [address] [place] [address], [facility] RBC (Bld) [#/Vol] 3.75 10*6/uL Low 4.20-5.70 [facility] Comment on above: Order Comment: No: D o not add to previous draw Performed By: #### 8 [id number] #### [facility] [address] [place] [address], [place] WBC (Bld) [#/Vol] 16.83 10*3/uL High 4.00-10.60 [facility] Comment on above: Order Comment: No: D o not add to previous draw Performed By: #### 8 [id number] #### [facility] [address] Operative Reporton Operative Report MR#: [id number] I [facility] Pt. Name: Lizzy Yee Room #: [id number] Discharge Date: Birthdate: 1945 OPERATIVE REPORT DATE [...] cemented posterior stabilized total knee arthroplasty using [place] implants. COMPLICATIONS: None. TOTAL TOURNIQUET TIME: 92 [...] surgery. He has been cleared by his rubber cutter for his surgery as well. The patient signed the consent form. Site was marked. We proceed with IV antibiotics in the form of 2 g of Ancef within an hour of the incision. PROCEDURE IN DETAIL: After written consent obtained, site was marked. The patient was taken to the [facility] OR and was seen [...] futu (more content not included)... Normal [facility] POC GLUCOSE LABon 12-27-2020 Glucose [Mass/Vol] 200 mg/dL High 70-100 [facility] Comment on above: Performed By: #### 8 [id number] #### [facility] [address] [place] [address], [place] Glucose [Mass/Vol] 186 mg/dL High 70-100 [facility] Comment on above: Performed By: #### 8 [id number] #### [facility] [address] [place] [address], [place] Glucose [Mass/Vol] 250 mg/dL High 70-100 [facility] Comment on above: Performed By: #### 8 [id number] #### [facility] [address] [place] [address], [place] Glucose [Mass/Vol] 177 mg/dL High 70-100 [facility] Comment on above: Performed By: #### 8 [id number] #### [facility] [address] [place] [address], [place] POC GLUCOSE LABon 12-26-2020 Glucose [Mass/Vol] 230 mg/dL High 70-100 [facility] Comment on above: Performed By: #### 8 [id number] #### [facility] [address] [place] [address], [place] Glucose [Mass/Vol] 278 mg/dL High 70-100 [facility] Comment on above: Performed By: #### 8 [id number] #### [facility] [address] [place] [address], [place] Glucose [Mass/Vol] 174 mg/dL High 70-100 [facility] Comment on above: Performed By: #### 8 [id number] #### [facility] [address] [place] [address], [facility] Glucose [Mass/Vol] 146 mg/dL High 70-100 [facility] Comment on above: Performed By: #### 8 [id number] #### [facility] [address] [place] [address], [facility] PORTABLE KNEE RIGHT 2 [facility] 12-26-2020 PORTABLE KNEE RIGHT 2 S [facility] Department of Radiology [address] [place] [id number] ======== Patient Name: LIZZY YEE : 1945 Sex: M Age: Race: White Pt. Location: [place] [address] Patient Status: I Ordered Date: 12/26/2020 7:05:00 AM Completed Date: 12/26/2020 01:31 PM Requesting Provider: DANO CANO Attending Provider: HONG SCOTT Report Copy To: Signs & Symptoms: Post OP History: Comments: Hardware Evaluation, In PACU; Exam: PORTABLE KNEE RIGHT 2 [facility] ======== PORTABLE KNEE RIGHT 2 [...] replacement. Electronically signed: José Thornton. Transcribed by: [email or web address], User Resident: JOSÉ THORNTON Electronically Signed by: JOSÉ THORNTON @ 12/26/2020 03:28 PM I personally read this/these film(s) with this resident Normal [facility] Comment on above: Order Comment: Hardw are Evaluation, In PACU; HIP RIGHT 1 OR 2 VWS WITH PE LVISon 10-05-2020 HIP RIGHT 1 OR 2 VWS WITH PELVIS [facility] Department of Radiology [address] [place] [id number] ======== Patient Name: LIZZY YEE : [...] narrowing. Electronically signed: Mitul Banks. Transcribed by: [email or web address], User Resident: Electronically Signed by: MITUL BANKS @ 10/05/2020 01:08 PM Normal [facility] Comment on above: Order Comment: Views (X-RAY, HIP): AP Pelvis, X-Table Lateral Hip , Weight Bearing?: Y KNEE LEFT 4VWSon 08-20-2020 KNEE LEFT 4VWS [facility] Department of Radiology [address] [place] [phone] ======== Patient Name: LIZZY YEE : 1945 Sex: M Age: Race: White Pt. Location: Patient Status: O Ordered Date: 08/20/2020 8:10:00 AM Completed Date: 08/20/2020 08:14 AM Requesting Provider: CEDRICK WILD Attending Provider: CEDRICK WILD Report Copy To: Signs & Symptoms: M25.569 Pain in unspecified knee I10 History: [place] Comments: Views (X-RAY, KNEE): AP, Lateral, Tunnel, [place] , Weight Bearing?: Y Exam: KNEE LEFT 4VWS ======== KNEE LEFT 4VWS 08/20/2020 8:14 AM CLINICAL INDICATIONS: M25.569 Pain in unspecified knee I10 TECHNOLOGIST COMMENTS: Patient states having bilateral knee pain. QUESTION FOR THE RADIOLOGIST: Views (X-RAY, KNEE): AP, Lateral, Tunnel, [place] , Weight Bearing?: Y PROTOCOL: AP,Lateral,Tunnel and [...] reports Electronically signed: Ej Francisco. Transcribed by: [email or web address], User Resident: TAMERA MARIE Electronically Signed by: EJ FRANCISCO @ 08/20/2020 08:41 AM I personally read this/these film(s) with this resident Normal [facility] Comment on above: Order Comment: Views (X-RAY, KNEE): AP, Lateral, Tunnel, [place] , Weight Bearing?: Y KNEE RIGHT 4 [facility] 1 KNEE RIGHT 4 [facility] Department of Radiology [address] [place] [phone] ======== Patient Name: LIZZY YEE : 1945 Sex: M Age: Race: White Pt. Location: Patient Status: O Ordered Date: 08/20/2020 8:10:00 AM Completed Date: 08/20/2020 08:14 AM Requesting Provider: CEDRICK WILD Attending Provider: CEDRICK WILD Report Copy To: Signs & Symptoms: M25.569 Pain in unspecified knee I10 History: [place] Comments: Views (X-RAY, KNEE): AP, Lateral, Tunnel, [place] , Weight Bearing?: Y Exam: KNEE RIGHT 4 S ======== KNEE RIGHT 4 S 08/20/2020 8:14 AM SIGNS AND SYMPTOMS: M25.569 Pain in unspecified knee I10 TECHNOLOGIST COMMENTS: Patient states having bilateral knee pain. QUESTION FOR THE RADIOLOGIST: Views (X-RAY, KNEE): AP, Lateral, Tunnel, [place] , Weight Bearing?: Y PROTOCOL: AP,Lateral,Tunnel and [...] knee. Electronically signed: Ej Francisco. Transcribed by: [email or web address], User Resident: Electronically Signed by: EJ FRANCISCO @ 08/20/2020 08:30 AM Normal [facility] Comment on above: Order Comment: Views (X-RAY, KNEE): AP, Lateral, Tunnel, [place] , Weight Bearing?: Y Vital Signs Date Time Vital Sign Value Performing Clinician Facility 01-05-2025 10:40-0400 Body height 165.1 cm Phillip Bingham DPM Work Phone: [facility] 01-05-2025 10:40-0400 Body mass index (BMI) [Ratio] 37.44 kg/m2 Phillip Bingham DPM Work Phone: [facility] 01-05-2025 10:40-0400 Body weight 102.06 kg Phillip Bingham DPM Work Phone: [facility] 01-05-2025 10:40-0400 Respiratory rate 18 /min Phillip Bingham DPM Work Phone: [facility] 12-16-2024 11:06-0400 Body height 161.29 cm [facility] 12-16-2024 11:06-0400 Body mass index (BMI) [Ratio] 37.8 kg/m2 [facility] 12-16-2024 11:06-0400 Body weight 98.42 kg [facility] 12-16-2024 11:06-0400 Diastolic blood pressure 67 mm[Hg] [facility] 12-16-2024 11:06-0400 Heart rate 61 /min [facility] 12-16-2024 11:06-0400 Respiratory rate 12 /min [facility] 12-16-2024 11:06-0400 Systolic blood pressure 119 mm[Hg] [facility] 11-21-2024 11:38-0400 Body height 161.29 cm [facility] 11-21-2024 11:38-0400 Body mass index (BMI) [Ratio] 39.9 kg/m2 [facility] 11-21-2024 11:38-0400 Body weight 103.87 kg [facility] 11-21-2024 11:38-0400 Diastolic blood pressure 76 mm[Hg] [facility] 11-21-2024 11:38-0400 Heart rate 68 /min [facility] 11-21-2024 11:38-0400 Respiratory rate 12 /min [facility] 11-21-2024 11:38-0400 Systolic blood pressure 130 mm[Hg] [facility] 11-14-2024 15:59-0400 Body height 161.29 cm [facility] 11-14-2024 15:59-0400 Body mass index (BMI) [Ratio] 39.9 kg/m2 [facility] 11-14-2024 15:59-0400 Body weight 103.87 kg [facility] 11-14-2024 15:59-0400 Diastolic blood pressure 77 mm[Hg] [facility] 11-14-2024 15:59-0400 Heart rate 66 /min [facility] 11-14-2024 15:59-0400 Respiratory rate 12 /min [facility] 11-14-2024 15:59-0400 Systolic blood pressure 132 mm[Hg] [facility] 11-14-2024 13:00-0400 Body height 165.1 cm Jada Gillmor PROPOSAL CONSULTANT Work Phone: [facility] 11-14-2024 13:00-0400 Body mass index (BMI) [Ratio] 37.44 kg/m2 Jada Linneamor PROPOSAL CONSULTANT Work Phone: [facility] 11-14-2024 13:00-0400 Body weight 102.06 kg Jada Linneamor PROPOSAL CONSULTANT Work Phone: [facility] 11-14-2024 13:00-0400 Diastolic blood pressure 74 mm[Hg] Jada Linneamor PROPOSAL CONSULTANT Work Phone: [facility] 11-14-2024 13:00-0400 Heart rate 58 /min Jada Linneamor PROPOSAL CONSULTANT Work Phone: [facility] 11-14-2024 13:00-0400 SaO2% (BldA) [Mass fraction] 95 % Jada Linneamor PROPOSAL CONSULTANT Work Phone: [facility] 11-14-2024 13:00-0400 Systolic blood pressure 126 mm[Hg] Jada Yarbroughmor PROPOSAL CONSULTANT Work Phone: [facility] 10-27-2024 10:49-0400 Body height 165.1 cm Phillip Bingham DPM Work Phone: [facility] 10-27-2024 10:49-0400 Body mass index (BMI) [Ratio] 33.61 kg/m2 Phillip Bingham DPM Work Phone: [facility] 10-27-2024 10:49-0400 Body weight 91.63 kg Phillip Bingham DPM Work Phone: [facility] 10-27-2024 10:49-0400 Respiratory rate 16 /min Phillip Bingham DPM Work Phone: [facility] 10-20-2024 13:38-0400 Body temperature 97 [degF] Jay Gonzalez MD Work Phone: [facility] 10-20-2024 13:38-0400 Diastolic blood pressure 78 mm[Hg] Jay Gonzalez MD Work Phone: [facility] 10-20-2024 13:38-0400 Heart rate 60 /min Jay Gonzalez MD Work Phone: [facility] 10-20-2024 13:38-0400 SaO2% (BldA) [Mass fraction] 98 % Jay Gonzalez MD Work Phone: [facility] 10-20-2024 13:38-0400 Systolic blood pressure 143 mm[Hg] Jay Gonzalez MD Work Phone: [facility] 09-14-2024 11:44-0500 Body height 161.29 cm [facility] 09-14-2024 11:44-0500 Body mass index (BMI) [Ratio] 39.2 kg/m2 [facility] 09-14-2024 11:44-0500 Body weight 102.11 kg [facility] 09-14-2024 11:44-0500 Diastolic blood pressure 85 mm[Hg] [facility] 09-14-2024 11:44-0500 Heart rate 70 /min [facility] 09-14-2024 11:44-0500 Respiratory rate 12 /min [facility] 09-14-2024 11:44-0500 Systolic blood pressure 135 mm[Hg] [facility] 08-11-2024 15:05-0500 Body height 165.1 cm Phillip Bingham DPM Work Phone: [facility] 08-11-2024 15:05-0500 Body mass index (BMI) [Ratio] 33.61 kg/m2 Phillip Bingham DPM Work Phone: [facility] 08-11-2024 15:05-0500 Body weight 91.63 kg Phillip Bingham DPM Work Phone: [facility] 08-11-2024 15:05-0500 Respiratory rate 18 /min Phillip Bingham DPM Work Phone: [facility] 06-07-2024 12:55-0500 Body height 165.1 cm Joanna Delia DO Work Phone: [facility] 06-07-2024 12:55-0500 Body mass index (BMI) [Ratio] 33.61 kg/m2 Joanna Delia DO Work Phone: [facility] 06-07-2024 12:55-0500 Body weight 91.63 kg Joanna Delia DO Work Phone: [facility] 06-07-2024 12:55-0500 Diastolic blood pressure 76 mm[Hg] Joanna Delia DO Work Phone: [facility] 06-07-2024 12:55-0500 Heart rate 73 /min Joanna Delia DO Work Phone: [facility] 06-07-2024 12:55-0500 SaO2% (BldA) [Mass fraction] 95 % Joanna Delia DO Work Phone: [facility] 06-07-2024 12:55-0500 Systolic blood pressure 142 mm[Hg] Joanna Delia DO Work Phone: [facility] 06-02-2024 14:27-0500 Body height 165.1 cm Phillip Bingham DPM Work Phone: [facility] 06-02-2024 14:27-0500 Body mass index (BMI) [Ratio] 37.44 kg/m2 Phillip Bingham DPM Work Phone: [facility] 06-02-2024 14:27-0500 Body weight 102.06 kg Phillip Bingham DPM Work Phone: [facility] 06-02-2024 14:27-0500 Diastolic blood pressure 79 mm[Hg] Phillip Bingham DPM Work Phone: [facility] 06-02-2024 14:27-0500 Heart rate 82 /min Phillip Bingham DPM Work Phone: [facility] 06-02-2024 14:27-0500 Systolic blood pressure 130 mm[Hg] Phillip Bingham DPM Work Phone: [facility] 04-21-2024 15:20-0400 Body mass index (BMI) [Ratio] 39.5 kg/m2 DO Juancarlos Ball Work Phone: [facility] 04-21-2024 13:34-0400 Body height 161.29 cm DO Juancarlos Ball Work Phone: [facility] 04-21-2024 13:34-0400 Body weight 101.6 kg DO Juancarlos Ball Work Phone: [facility] 04-20-2024 16:32-0400 Body height 165.1 cm DO Juancarlos Ball Work Phone: [facility] 04-20-2024 16:32-0400 Body mass index (BMI) [Ratio] 37.3 kg/m2 DO Juancarlos Ball Work Phone: [facility] 04-20-2024 16:32-0400 Body weight 101.66 kg DO Juancarlos Ball Work Phone: [facility] 03-24-2024 14:15-0400 Body height 165.1 cm Phillip Bingham DPM Work Phone: [facility] 03-24-2024 14:15-0400 Body mass index (BMI) [Ratio] 37.44 kg/m2 Phillip Bingham DPM Work Phone: [facility] 03-24-2024 14:15-0400 Body weight 102.06 kg Phillip Bingham DPM Work Phone: [facility] 03-24-2024 14:15-0400 Diastolic blood pressure 79 mm[Hg] Phillip Bingham DPM Work Phone: [facility] 03-24-2024 14:15-0400 Heart rate 81 /min Phillip Bingham DPM Work Phone: [facility] 03-24-2024 14:15-0400 Systolic blood pressure 127 mm[Hg] Phillip Bingham DPM Work Phone: [facility] 03-09-2024 13:34-0400 Body height 161.29 cm DO Juancarlos Ball Work Phone: [facility] 03-09-2024 13:34-0400 Body mass index (BMI) [Ratio] 39.8 kg/m2 DO Juancarlos Ball Work Phone: [facility] 03-09-2024 13:34-0400 Body weight 103.58 kg DO Juancarlos Ball Work Phone: [facility] 03-09-2024 13:34-0400 Diastolic blood pressure 72 mm[Hg] DO Juancarlos Ball Work Phone: [facility] 03-09-2024 13:34-0400 Heart rate 56 /min DO Juancarlos Ball Work Phone: [facility] 03-09-2024 13:34-0400 Respiratory rate 12 /min DO Juancarlos Ball Work Phone: [facility] 03-09-2024 13:34-0400 Systolic blood pressure 126 mm[Hg] DO Juancarlos Ball Work Phone: [facility] 02-24-2024 13:14-0400 Body height 161.29 cm DO Juancarlos Ball Work Phone: [facility] 02-24-2024 13:14-0400 Body mass index (BMI) [Ratio] 39.4 kg/m2 DO Juancarlos Ball Work Phone: [facility] 02-24-2024 13:14-0400 Body weight 102.73 kg DO Juancarlos Ball Work Phone: [facility] 02-24-2024 13:14-0400 Diastolic blood pressure 58 mm[Hg] DO Juancarlos Ball Work Phone: [facility] 02-24-2024 13:14-0400 Heart rate 53 /min DO Juancarlos Ball Work Phone: [facility] 02-24-2024 13:14-0400 Respiratory rate 20 /min DO Juancarlos Ball Work Phone: [facility] 02-24-2024 13:14-0400 SaO2% (BldA) [Mass fraction] 95 % DO Juancarlos Ball Work Phone: [facility] 02-24-2024 13:14-0400 Systolic blood pressure 120 mm[Hg] DO Juancarlos Ball Work Phone: [facility] 02-08-2024 11:49-0400 Body mass index (BMI) [Ratio] 39.5 kg/m2 DO Juancarlos Ball Work Phone: [facility] 02-08-2024 10:04-0400 Body height 161.29 cm DO Juancarlos Ball Work Phone: [facility] 02-08-2024 10:04-0400 Body weight 101.15 kg DO Juancarlos Ball Work Phone: [facility] 12-08-2023 13:37-0400 Body height 161.29 cm [facility] 12-08-2023 13:37-0400 Body mass index (BMI) [Ratio] 39.4 kg/m2 [facility] 12-08-2023 13:37-0400 Body weight 102.68 kg [facility] 12-08-2023 13:37-0400 Diastolic blood pressure 67 mm[Hg] [facility] 12-08-2023 13:37-0400 Heart rate 61 /min [facility] 12-08-2023 13:37-0400 Respiratory rate 20 /min [facility] 12-08-2023 13:37-0400 Systolic blood pressure 126 mm[Hg] [facility] 11-17-2023 13:12-0400 Body weight 102.71 kg [facility] 11-04-2023 10:57-0400 Body height 161.29 cm [facility] 11-04-2023 10:57-0400 Body mass index (BMI) [Ratio] 39.5 kg/m2 [facility] 11-04-2023 10:57-0400 Body weight 102.96 kg [facility] 11-04-2023 10:57-0400 Diastolic blood pressure 70 mm[Hg] [facility] 11-04-2023 10:57-0400 Heart rate 57 /min [facility] 11-04-2023 10:57-0400 Respiratory rate 18 /min [facility] 11-04-2023 10:57-0400 SaO2% (BldA) [Mass fraction] 97 % [facility] 11-04-2023 10:57-0400 Systolic blood pressure 109 mm[Hg] [facility] 06-05-2023 10:00-0500 Body height 165.1 cm Juancarlos Ball Other [facility] [employer] Other 06-05-2023 10:00-0500 Body mass index (BMI) [Ratio] 39.87 kg/m2 Juancarlos Ball Other [facility] [employer] Other 06-05-2023 10:00-0500 Body weight 108.68 kg Juancarlos Ball Other [facility] [employer] Other 06-05-2023 10:00-0500 Diastolic blood pressure 71 mm[Hg] Juancarlos Ball Other [facility] [employer] Other 06-05-2023 10:00-0500 Respiratory rate 20 /min Juancarlos Ball Other [facility] [employer] Other 06-05-2023 10:00-0500 Systolic blood pressure 118 mm[Hg] Juancarlos Ball Other [facility] [employer] Other 05-06-2023 13:45-0400 Body height 165.1 cm Juancarlos Ball Other [employer] Other 05-06-2023 13:45-0400 Body mass index (BMI) [Ratio] 39.97 kg/m2 Juancarlos Ball Other [employer] Other 05-06-2023 13:45-0400 Body weight 108.95 kg Juancarlos Ball Other [employer] Other 05-06-2023 13:45-0400 Diastolic blood pressure 87 mm[Hg] Juancarlos Ball Other [employer] Other 05-06-2023 13:45-0400 Respiratory rate 16 /min Juancarlos Ball Other [employer] Other 05-06-2023 13:45-0400 Systolic blood pressure 158 mm[Hg] Juancarlos Ball Other [employer] Other 03-10-2023 11:00-0400 Body height 165.1 cm Juancarlos Ball Other [employer] Other 03-10-2023 11:00-0400 Body mass index (BMI) [Ratio] 39.3 kg/m2 Juancarlos Ball Other [employer] Other 03-10-2023 11:00-0400 Body weight 107.14 kg Juancarlos Ball Other [employer] Other 03-10-2023 11:00-0400 Diastolic blood pressure 67 mm[Hg] Juancarlos Ball Other [employer] Other 03-10-2023 11:00-0400 Respiratory rate 16 /min Juancarlos Ball Other [employer] Other 03-10-2023 11:00-0400 Systolic blood pressure 120 mm[Hg] Juancarlos Ball Other [employer] Other 10-16-2022 13:12-0400 Body temperature 97.11 [degF] Jay Gonzalez MD Work Phone: [facility] 10-16-2022 13:12-0400 Diastolic blood pressure 66 mm[Hg] Jay Gonzalez MD Work Phone: [facility] 10-16-2022 13:12-0400 Heart rate 51 /min Jay Gonzalez MD Work Phone: [facility] 10-16-2022 13:12-0400 SaO2% (BldA) [Mass fraction] 96 % Jay Gonzalez MD Work Phone: [facility] 10-16-2022 13:12-0400 Systolic blood pressure 143 mm[Hg] Jay Gonzalez MD Work Phone: [facility] 09-08-2022 13:30-0500 Body height 165.1 cm Juancarlos Ball Other [employer] Other 09-08-2022 13:30-0500 Body mass index (BMI) [Ratio] 39.33 kg/m2 Juancarlos Ball Other [employer] Other 09-08-2022 13:30-0500 Body weight 107.23 kg Juancarlos Ball Other [employer] Other 09-08-2022 13:30-0500 Diastolic blood pressure 70 mm[Hg] Juancarlos Ball Other [employer] Other 09-08-2022 13:30-0500 Respiratory rate 20 /min Juancarlos Ball Other [employer] Other 09-08-2022 13:30-0500 Systolic blood pressure 112 mm[Hg] Juancarlos Ball Other [employer] Other 01-27-2022 13:20-0400 Body height 165.1 cm Jus Medina MD Work Phone: [facility] 01-27-2022 13:20-0400 Body temperature 96.91 [degF] Jus Medina MD Work Phone: [facility] 01-27-2022 13:20-0400 Body weight 104.33 kg Jus Medina MD Work Phone: [facility] 01-27-2022 13:20-0400 Diastolic blood pressure 56 mm[Hg] Jus Medina MD Work Phone: [facility] 01-27-2022 13:20-0400 Heart rate 50 /min Jus Mednia MD Work Phone: [facility] 01-27-2022 13:20-0400 SaO2% (BldA) [Mass fraction] 98 % Jus Medina MD Work Phone: [facility] 01-27-2022 13:20-0400 Systolic blood pressure 131 mm[Hg] Jus Medina MD Work Phone: [facility] 10-10-2021 10:46-0400 Body height 165.1 cm Jay Gonzalez MD Work Phone: [facility] 10-10-2021 10:46-0400 Body weight 102.51 kg Jay Gonzalez MD Work Phone: [facility] 10-10-2021 10:46-0400 Diastolic blood pressure 65 mm[Hg] Jay Gonzalez MD Work Phone: [facility] 10-10-2021 10:46-0400 Heart rate 76 /min Jay Gonzalez MD Work Phone: [facility] 10-10-2021 10:46-0400 Systolic blood pressure 137 mm[Hg] Jay Gonzalez MD Work Phone: [facility] 10-10-2021 10:44-0400 Body height 165.1 cm Jus Medina MD Work Phone: [facility] 10-10-2021 10:44-0400 Body weight 102.51 kg Jus Medina MD Work Phone: [facility] 10-10-2021 10:44-0400 Diastolic blood pressure 65 mm[Hg] Jus Medina MD Work Phone: [facility] 10-10-2021 10:44-0400 Heart rate 76 /min Jus Medina MD Work Phone: [facility] 10-10-2021 10:44-0400 SaO2% (BldA) [Mass fraction] 98 % Jus Medina MD Work Phone: [facility] 10-10-2021 10:44-0400 Systolic blood pressure 137 mm[Hg] Jus Medina MD Work Phone: [facility] Encounters Encounter Date Encounter Type Care Provider Facility Start: 01-06-2025 End: 01-06-2025 Bamboo flowsheet Matthew Kearns DO Work Phone: [facility] Start: 01-06-2025 End: 01-06-2025 Bamboo flowsheet Matthew Kearns DO Work Phone: [facility] Start: 01-06-2025 End: 01-06-2025 ambulatory MATTHEW KEARNS Not Available Start: 01-05-2025 End: 01-05-2025 Bamboo flowsheet Phillip Bingham DPM Work Phone: [facility] Start: 01-05-2025 End: 01-05-2025 Bamboo flowsheet Phillip Bingham DPM Work Phone: [facility] Start: 01-05-2025 End: 01-05-2025 Patient encounter procedure Phillip Bingham DPM Work Phone: [facility] Comment on above: 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, unspecified whether residential insulin use (HCC) (Primary Dx); Pain due to onychomycosis of toenails of both feet Start: 01-05-2025 End: 01-05-2025 ambulatory PHILLIP BINGHAM Not Available Start: 12-22-2024 End: 12-22-2024 Clinisync Result Encounter Anderson Robledo MD Work Phone: [facility] Unsolicited Start: 12-22-2024 End: 12-22-2024 Clinisync Result Encounter Anderson Robledo MD Work Phone: [facility] Unsolicited Start: 12-16-2024 End: 12-16-2024 ambulatory [facility] Work Phone: Start: 12-16-2024 End: 12-16-2024 Patient encounter procedure [facility] Work Phone: Start: 11-21-2024 End: 11-21-2024 ambulatory [facility] Work Phone: Start: 11-21-2024 End: 11-21-2024 Patient encounter procedure [facility] Work Phone: Start: 11-17-2024 End: 11-17-2024 ambulatory [facility] Work Phone: Start: 11-17-2024 End: 11-17-2024 Patient encounter procedure [facility] Work Phone: Start: 11-14-2024 End: 11-14-2024 ambulatory [facility] Work Phone: Start: 11-14-2024 End: 11-14-2024 Patient encounter procedure [facility] Work Phone: Start: 11-14-2024 End: 11-14-2024 Bamboo anita Woods PROPOSAL CONSULTANT Work Phone: [facility] Start: 11-14-2024 End: 11-14-2024 Bamboo flowsanabell Woods PROPOSAL CONSULTANT Work Phone: [facility] Start: 11-14-2024 End: 11-14-2024 ambulatory JADA WOODS Not Available Start: 11-14-2024 End: 11-14-2024 Office outpatient visit 25 minutes Jada Woods PROPOSAL CONSULTANT Work Phone: [facility] Comment on above: BHUPENDRA (obstructive sle ep apnea) (Primary Dx); Paresthesias; Carpal tunnel syndrome, bilateral; Ulnar neuropathy, unspecified laterality Start: 10-27-2024 End: 10-27-2024 Bamboo flowsheet Phillip Bingham DPM Work Phone: [facility] Start: 10-27-2024 End: 10-27-2024 Bamboo flowsheet Phillip Bingham DPM Work Phone: [facility] Start: 10-27-2024 End: 10-27-2024 Patient encounter procedure Phillip Bingham DPM Work Phone: [facility] Comment on above: 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, unspecified whether residential insulin use ([facility]) (Primary Dx); Pain due to onychomycosis of toenails of both feet; Xerosis cutis Start: 10-27-2024 End: 10-27-2024 ambulatory PHILLIP BINGHAM Not Available Start: 10-27-2024 Non-patient / [facility]visit [facility] Work Phone: Start: 10-20-2024 End: 10-20-2024 ambulatory JAY GONZALEZ Facility:[facility] Start: 10-20-2024 End: 10-20-2024 Patient encounter procedure Jay Gonzalez MD Work Phone: General Surgery Comment on above: S/P repair of ventra l hernia (Primary Dx) Start: 10-04-2024 End: 10-04-2024 ambulatory MATTHEW KEARNS Not Available Start: 09-27-2024 End: 09-27-2024 ambulatory MATTHEW KEARNS Not Available Start: 09-14-2024 End: 09-14-2024 ambulatory [facility] Work Phone: Start: 09-14-2024 End: 09-14-2024 Patient encounter procedure [facility] Work Phone: Start: 08-27-2024 Non-patient / Non-visit [facility] Work Phone: Start: 08-24-2024 End: [...] underlying condition with diabetic polyneuropathy, unspecified whether residential insulin use ([facility]) (Primary Dx); Pain due to onychomycosis of toenails of both feet; Xerosis cutis Start: 08-11-2024 End: 08-11-2024 ambulatory PHILLIP BINGHAM Not Available Start: 08-11-2024 End: 08-11-2024 Bamboo flowsheet Phillip Bingham DPM Work Phone: [facility] Start: 08-11-2024 End: 08-11-2024 Bamboo flowsheet Phillip Bingham DPM Work Phone: [facility] Start: 07-28-2024 End: 07-28-2024 Patient encounter procedure [facility] Work Phone: Start: 06-07-2024 End: 06-07-2024 Bamboo flowsheet Joanna Lin DO Work Phone: [facility] [address] Start: 06-07-2024 End: 06-07-2024 Bamboo flowsheet Joanna Lin DO Work Phone: [facility] [address] Start: 06-07-2024 End: 06-07-2024 Office outpatient visit 25 minutes Joanna Lin DO [facility] Comment on above: BHUPENDRA (obstructive sle ep apnea) (Primary Dx); Hyposomnia; Snoring; Carpal tunnel syndrome, bilateral; Paresthesias; Ulnar neuropathy, unspecified laterality Start: 06-07-2024 End: 06-07-2024 ambulatory JOANNA LIN Not Available Start: 06-02-2024 End: 06-02-2024 Patient encounter procedure Phillip Bingham DPM Work Phone: [facility] Comment on above: 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, unspecified whether residential insulin use ([facility]) (Primary Dx); Pain due to onychomycosis of toenails of both feet; Xerosis cutis Start: 06-02-2024 End: 06-02-2024 ambulatory PHILLIP BINGHAM Not Available Start: 06-02-2024 End: 06-02-2024 Bamboo flowsheet Phillip Bingham DPM Work Phone: [facility] Start: 06-02-2024 End: 06-02-2024 Bamboo flowsheet Phillip Bingham DPM Work Phone: [facility] Start: 05-04-2024 End: 05-04-2024 ambulatory [facility] Start: 04-21-2024 End: 04-21-2024 Patient encounter procedure DO Juancarlos Ball Work Phone: [facility] Work Phone: Start: 04-21-2024 End: 04-21-2024 Patient encounter procedure DO Juancarlos Ball Work Phone: [facility] Work Phone: Start: 04-21-2024 End: 04-21-2024 Patient encounter procedure DO Juancarlos Cuenca Work Phone: [facility] Start: 04-21-2024 End: 04-21-2024 ambulatory Ej Anthony II Facility:[facility] Start: 04-11-2024 End: 04-11-2024 ambulatory Hanh Wade MD Facility: [facility] Start: 03-24-2024 End: 03-24-2024 Patient encounter procedure Phillip Bingham DPM Work Phone: [facility] Comment on above: Xerosis cutis (Prima ry Dx); Diabetes mellitus due to underlying condition with diabetic polyneuropathy, unspecified whether intermediate frame tender insulin use ([facility]); Onychomycosis; Toe pain, bilateral Start: 03-24-2024 End: 03-24-2024 ambulatory PHILLIP BINGHAM Not Available Start: 03-24-2024 End: 03-24-2024 Bamboo flowsheet Phillip Bingham DPM Work Phone: [facility] Start: 03-24-2024 End: 03-24-2024 Bamboo flowsheet Phillip Bingham DPM Work Phone: [facility] Start: 03-09-2024 End: 03-09-2024 Patient encounter procedure DO Juancarlos Cuenca Work Phone: [facility] Work Phone: Start: 02-24-2024 End: 02-24-2024 Patient encounter procedure DO Juancarlos Ball Work Phone: [facility] Work Phone: Start: 02-08-2024 End: 02-08-2024 Patient encounter procedure DO Juancarlos Cuenca Work Phone: [facility] Work Phone: Start: 12-08-2023 End: 12-08-2023 Patient encounter procedure [facility] Work Phone: Start: 11-17-2023 End: 11-17-2023 Patient encounter procedure [facility] Work Phone: Start: 11-04-2023 End: 11-04-2023 Patient encounter procedure [facility] Work Phone: Start: 10-27-2023 Telephone encounter Jay patel MD Work Phone: General Surgery Start: 10-09-2023 Non-patient / Non-visit [facility] Professional [employer] Work Phone: Start: 08-10-2023 (RD) 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 Nirmala James [facility] Start: 08-10-2023 End: 08-10-2023 ambulatory Juancarlos Bang [facility] [employer] Other Start: 08-03-2023 End: 08-03-2023 ambulatory [facility] Start: 07-27-2023 End: 07-27-2023 ambulatory Hanh Wade MD Facility:[facility] Start: 06-17-2023 End: 06-17-2023 ambulatory Juancarlos Bang Other [employer] Other Start: 06-17-2023 Telephone encounter Juancarlos Cuenca [facility] Start: 06-16-2023 End: 06-16-2023 ambulatory Juancarlos Cuenca Other [employer] Other Start: 06-16-2023 Telephone encounter Juancarlos Cuenca [facility] Start: 06-09-2023 End: 06-09-2023 ambulatory Juancarlos Cuenca Other [employer] Other Start: 06-09-2023 Telephone encounter Juancarlos Cuenca [facility] Start: 06-08-2023 End: 06-08-2023 ambulatory Juancarlos Ball Other [employer] Other Start: 06-08-2023 Telephone encounter Juancarlos Ball [facility] Start: 06-07-2023 End: 06-07-2023 ambulatory Juancarlos Ball Other [employer] Other Start: 06-07-2023 Telephone encounter Juancarlos Ball [facility] Start: 06-05-2023 End: 06-05-2023 ambulatory Juancarlos Ball Other [employer] Other Start: 06-05-2023 Office outpatient vi sit 25 minutes Juancarlos Ball [facility] Start: 05-27-2023 End: 05-27-2023 ambulatory Juancarlos Ball Other [employer] Other Start: 05-27-2023 Telephone encounter Juancarlos Ball [facility] Start: 05-17-2023 End: 05-17-2023 ambulatory Juancarlos Ball Other [employer] Other Start: 05-17-2023 Telephone encounter Juancarlos Ball [facility] Start: 05-15-2023 End: 05-15-2023 ambulatory Juancarlos Ball Other [employer] Other Start: 05-15-2023 Telephone encounter Juancarlos Ball [facility] Start: 05-07-2023 End: 05-07-2023 ambulatory Juancarlos Ball Other [employer] Other Start: 05-07-2023 Telephone encounter Juancarlos Ball [facility] Start: 05-06-2023 End: 05-06-2023 ambulatory Juancarlos Ball Other [employer] Other Start: 05-06-2023 Office outpatient vi sit 25 minutes Juancarlos Ball [facility] Start: 05-06-2023 Telephone encounter Juancarlos Ball [facility] Start: 04-04-2023 End: 04-04-2023 ambulatory Juancarlos Ball Other [employer] Other Start: 04-04-2023 Telephone encounter Juancarlos BELL [facility] Start: 03-10-2023 End: 03-10-2023 ambulatory Juancarlos Cuenca Other [employer] Other Start: 03-10-2023 Office outpatient vi sit 25 minutes Juancarlos Cuenca [facility] Start: 12-24-2022 End: 12-24-2022 ambulatory Juancarlos Cuenca Other [employer] Other Start: 12-24-2022 Telephone encounter Juancarlos BELL [facility] Start: 12-17-2022 End: 12-18-[address] NYA BIRD . Facility: Start: 12-16-2022 End: 12-16-2022 ambulatory NARENDRANATH LAKSHMIPATHY . Facility: Start: 12-02-2022 End: 12-03-2022 ambulatory Nya BIRD Facility: [place] Start: 11-28-2022 End: 11-29-2022 ambulatory MANAV GARY [...] 10-11-2022 Subsequent hospital visit by physician [facility] Radiology Comment on above: 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] Start: 10-06-2022 Telephone encounter Jay patel MD Work Phone: General Surgery Comment on above: Patient Question Start: 09-16-2022 Telephone encounter Juancarlos Cuenca [facility] Start: 09-16-2022 End: 09-17-2022 ambulatory Nya BIRD [employer] Other Start: 09-16-2022 End: 09-27-2022 Pre-admission assessment Nya BIRD [facility] Start: 09-12-2022 Telephone encounter Juancarlos BELL [facility] Start: 09-12-2022 End: 09-13-[address] JUANCARLOS CUENCA [facility] [employer] Other Start: 09-08-2022 End: 09-08-2022 ambulatory Juancarlos Cuenca Other [employer] Other Start: 09-08-2022 Patient encounter procedure Juancarlos Cuenca [facility] Start: 07-31-2022 End: 08-01-[address] EVAN LAMAS . Facility:[facility] Start: 07-03-2022 Encounter for preprocedural laboratory examination DR EVAN LAMAS . [facility] Start: 07-01-2022 End: 07-01-2022 ambulatory [...] Telephone encounter Shilpa Storm MD Work Phone: [facility] Research Comment on above: Research Start: 10-10-2021 End: 10-10-2021 Patient encounter procedure Jay Gonzalez MD Work Phone: General Surgery Comment on above: Ventral incisional h ernia (Primary Dx) Polyposis of colon ( Primary Dx) Start: 12-26-2020 End: 12-29-2020 ambulatory JUANCARLOS CUENCA Facility:[facility] Start: 10-19-2020 End: 10-20-2020 ambulatory JUANCARLOS CUENCA Facility:[facility] Procedures Date Procedure Procedure Detail Performing Clinician Start: 01-06-2025 End: 01-06-2025 Oph medical xm&eval intermediate estab pt Right posterior capsular opacification Matthew Kearns DO Work Phone: Comment on above: Right posterior caps ular opacification (Primary Dx); Epiretinal membrane (ERM) of left eye; Dry eyes; Blepharitis of upper and lower eyelids of both eyes, unspecified type Start: 12-22-2024 SEGMENTAL BLOOD PRESSURE Anderson Robledo MD Work Phone: Start: 08-24-2024 Oph bmtry prtl coher intrfrmtry io lens pwr shoshana Matthew Kearns DO Work Phone: Start: 08-24-2024 End: 08-24-2024 Oph medical xm&eval compre new pt 1/> vst Age-related nuclear cataract of right eye Matthew Kearns DO Work Phone: Comment on above: Age-related nuclear cataract of right eye (Primary Dx); Left posterior capsular opacification Start: 04-21-2024 Plain radiography of pelvis DO Juancarlos [employer] Work Phone: Start: 04-21-2024 X-ray of left knee, four views DO Juancarlos [employer] Work Phone: Start: 10-04-2021 Partial resection of colon Nya BIRD Start: 10-04-2021 Repair of ventral hernia Nya BIRD Start: 04-08-2021 Colonoscopy Nya NI TEVIN Comment on above: Transverse and desce nding colon polyps Start: 12-26-2020 ANESTH KNEE ARTHROPLASTY JUANCARLOS [email or web address] Start: 12-26-2020 Arthrp kne condyle&p latu medial&lat compartments VITHAL SHENDGE Start: 12-26-2020 JOINT DEVICE (IMPLANTABLE) JUANCARLOS [email or web address] Start: 11-17-2017 Colonoscopy Nya NI TEVIN Comment on above: 2004 (2), 2005, 2007 , 2009, 2011, 05/2015, 11/2017 Start: 03-06-2016 Transurethral prostatectomy Nya BIRD Start: 02-18-2016 Cystoscopy Nya ABARCA Start: 01-16-2016 Urodynamic studies [place] allan PELON Start: 07-20-2012 Hernia repair Nya Elly MARLENE Start: 08-26-2007 Prosthetic arthropla sty of the hip Nya BIRD Start: 08-20-2007 Hernia of anterior abdominal wall (disorder) Nya BIRD Start: 04-19-2004 Transrectal biopsy o f prostate using ultrasound guidance Nya BIRD Atherectomy Nya BIRD Comment on above: with stent 2006 Bilateral vasectomy Nya BIRD Decompression of med med nerve Nya SAVAGEDior Through knee amputation [place] BIRD Plan of Treatment Date Care Activity Detail Author Start: 03-06-2034 Urine microalbumin profile DTaP,Tdap,Td Vaccine (2 - Td or Tdap) [facility] Start: 10-24-2025 End: 10-24-2025 Patient encounter procedure 10/24/2025 1:40 PM EDT Office Visit General Surgery [facility] [address] [place], [place] [id number] Jay Gonzalez MD [facility] [place], [place] [id number] Est Pt: 1 yr f/up, s/p AWR 09/24/21 General Surgery Comment on above: Est Pt: 1 yr f/up, s /p AWR 09/24/21 Start: 05-15-2025 End: 05-15-2025 Patient encounter procedure 05/15/2025 12:40 PM EDT Office Visit [facility] [address] [place] [address] Jada Woods NP [address] [place], [place] [facility] Start: 03-16-2025 End: 03-16-2025 Patient encounter procedure 03/16/2025 11:30 AM EDT Office Visit [facility] [address] [facility] [address] [place] [address] Phillip Bingham, DPBrandon [address] [facility] [address] [place] [address] [facility] Start: 01-06-2025 End: 01-06-2025 Patient encounter procedure [facility] Comment on above: Arrived Start: 01-05-2025 End: 01-05-2025 Patient encounter procedure [facility] Comment on above: 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, unspecified whether intermediate frame tender insulin use (HCC) (Primary Dx); Pain due to onychomycosis of toenails of both feet Start: 11-14-2024 End: 11-14-2024 Patient encounter procedure 11/14/2024 12:40 PM EDT Office Visit [facility] [address] [place] [phone] Jada Woods NP [address] [place] [address] [facility]ERM[facility] Start: 10-27-2024 End: 10-27-2024 Patient encounter procedure 10/27/2024 10:50 AM EDT Office Visit [facility] [address] [facility] [address] [place] [address] Phillip Bingham DPM [address] [address] Diabetes mellitus due to underlying condition with diabetic polyneuropathy, unspecified whether residential insulin use (CMS/HCC) (Primary Dx); Pain due to onychomycosis of toenails of both feet; Xerosis cutis [facility] Comment on above: 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, unspecified whether intermediate frame tender insulin use (CMS/HCC) (Primary Dx); Pain due to onychomycosis of toenails of both feet; Xerosis cutis Start: 10-25-2024 End: 10-25-2024 Patient encounter procedure [facility] [address] Start: 10-20-2024 End: 10-20-2024 Patient encounter procedure 10/20/2024 3:10 PM EDT Office Visit [facility] [address] [facility] [address] [place] [address] Phillip Bingham DPM [address] [address] [facility] Start: 10-14-2024 BP Controlled (<130/80) BP Controlle d (<130/80) [facility] Start: 10-05-2024 Covid-19 Vaccine ( season) Covid-19 Vaccine () [facility] Start: 08-24-2024 End: 08-24-2024 Patient encounter procedure [facility] Comment on above: Arrived Start: 08-11-2024 End: 08-11-2024 Patient encounter procedure [facility] Comment on above: 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, unspecified whether intermediate frame tender insulin use (CMS/HCC) (Primary Dx); Pain due to onychomycosis of toenails of both feet; Xerosis cutis Start: 07-20-2024 Advance Directive Discussion Advance Directive Discussion [facility] Start: 06-07-2024 End: 06-07-2024 Patient encounter procedure [facility] [address] Comment on above: Arrived Start: 06-02-2024 End: 06-02-2024 Patient encounter procedure 06/02/2024 2:30 PM EST Office Visit [facility] [address] [address] Phillip Bingham DPM [address] [address] [facility] Start: 05-01-2024 Shingrix Vaccine (2 of 2) Shingrix Vaccine (2 of 2) [facility] Start: 03-24-2024 End: 03-24-2024 Patient encounter procedure 03/24/2024 2:30 PM EDT Office Visit [facility] [address] [address] Phillip Bingham DPM [address] [address] Xerosis cutis (Primary Dx); Diabetes mellitus due to underlying condition with diabetic polyneuropathy, unspecified whether residential insulin use (CMS/HCC); Onychomycosis; Toe pain, bilateral [facility] Comment on above: Xerosis cutis (Prima ry Dx); Diabetes mellitus due to underlying condition with diabetic polyneuropathy, unspecified whether intermediate frame tender insulin use ([facility]/HCC); Onychomycosis; Toe pain, bilateral Start: 03-20-2024 Influenza vaccination Influenza Vacc ine (#1) [facility] Start: 07-20-2023 Advance Directive Discussion Advance Directive Discussion [facility] Start: 07-20-2023 Behavioral Health Screening Behavioral Health Screening [facility] Start: 10-10-2022 End: 11-09-2022 Ct abdomen & pelvis w/o contrast material CT ABD/PEL WO IVCON Radiology Routine Ventral incisional hernia Expected: 10/10/2022, Expires: 11/09/2022 [place] [facility] Work Phone: Comment on above: Expected: 10/10/2022 , Expires: 11/09/2022 Start: 07-20-2022 ADVANCE DIRECTIVE DISCUSSION ADVANCE DIRECTIVE DISCUSSION [facility] Start: 07-20-2022 DEPRESSION ASSESSMENT DEPRESSION ASS ESSMENT [facility] Start: 03-20-2022 Influenza vaccination INFLUENZA (#1) [facility] Start: 03-13-2022 Hemoglobin A1c measurement HbA1C [facility] Start: 03-13-2022 Hemoglobin A1c/Hemoglobin.total in Blood HBA1C [facility] Start: 01-04-2022 COVID-19 VACCINE (5 - Booster for Pfizer series) COVID-19 VACCINE (5 - Booster for Pfizer series) [facility] Start: 07-20-2021 ADVANCE DIRECTIVE DISCUSSION ADVANCE DIRECTIVE DISCUSSION [facility] Start: 04-19-2015 Pneumococcal Vaccine : 50+ (2 of 2 - PCV) Pneumococcal Vaccine: 50+ (2 of 2 - PCV) [facility] Start: 04-19-2015 Pneumococcal Vaccine : 65+ (2 of 2 - PCV) Pneumococcal Vaccine: 65+ (2 of 2 - PCV) [facility] Start: 04-19-2015 Pneumococcal Vaccine : 65+ Years (2 of 2 - PCV) Pneumococcal Vaccine: 65+ Years (2 of 2 - PCV) [facility] Start: 2009 PNEUMOVAX AGE 65 AND OVER WITH 5YR LOOKBACK (#1) PNEUMOVAX AGE 65 AND OVER WITH 5YR LOOKBACK (#1) [facility] Start: 1994 SHINGRIX VACCINE (1 of 2) SHINGRIX VACCINE (1 of 2) [facility] Start: 12-31-1963 Urine microalbumin profile [facility] Start: 1962 ANNUAL PCP TEAM TIMBER SETTER MACY DISEASE VISIT ANNUAL PCP TEAM CHRONIC DISEASE VISIT [facility] Start: 1962 Anxiety Screening Anxiety Screening [facility] Start: 1962 BP CONTROLLED (<130/80) BP CONTROLLE D (<130/80) [facility] Start: 1962 Depression Screening Depression Scre ening [facility] Start: 1962 Hepatitis B surface antibody level LDL CHOLESTEROL [facility] Start: 1962 HEPATITIS C SCREENING HEPATITIS C [facility] Start: 1962 Hepatitis C screening Hepatitis C Sc [facility] Start: 1956 Adult depression screening assessment DEPRESSION SCREENING [facility] Start: 1954 3 comp foot exam completed DIABETIC FOOT EXAM [facility] Start: 1954 Diabetic foot examination Diabetic Foot Exam [facility] Start: 1954 Glaucoma screening Dilated Retinal E xam [facility] Start: 1954 Hepatitis B screening URINE ALBUMIN:CREATININE RATIO [facility] Start: 1954 Hepatitis C antibody , confirmatory test DILATED RETINAL EXAM [facility] Start: 1950 PNEUMOCOCCAL: 65+ (1 - PCV) PNEUMOCOCCAL: 65+ (1 - PCV) [facility] Comprehensive metabo lic 2000 panel - Serum or Plasma [facility] End: 10-11-2022 Ct abdomen & pelvis w/o contrast material [facility] Work Phone: Comment on above: 1 Occurrences starti ng 10/11/2022 until 10/11/2022 End: 11-15-2023 Ct abdomen & pelvis w/o contrast material CT ABD/PEL WO IVCON Radiology Routine Ventral incisional hernia 1 Occurrences starting 10/16/2022 until 11/15/2023 [place] [facility] Work Phone: Comment on above: 1 Occurrences starti ng 10/16/2022 until 11/15/2023 [facility] Immunizations Immunization Date Immunization Notes Care Provider Alexa dietz 11-03-2024 COVID-19 (PFIZER) 12Y and older [facility] 11-03-2024 zoster vaccine recombinant [facility] 04-07-2024 COVID-19 (PFIZER) 12Y and older [facility] 04-07-2024 influenza, high dose seasonal, preservative-free [facility] 03-06-2024 tetanus toxoid, redu lisbeth diphtheria toxoid, and acellular pertussis vaccine, adsorbed [facility] 03-06-2024 zoster vaccine recombinant [facility] 07-07-2023 RSV, preF3, adj, pf [facility] 04-20-2023 COVID-19 (PFIZER) 12Y and older [facility] 04-14-2023 Influenza vaccine, quadrivalent, adjuvanted [facility] 04-14-2023 influenza virus vaccine, unspecified formulation Phillip Bingham [facility] Work Phone: [facility] 05-20-2022 influenza virus vaccine, unspecified formulation Nya BIRD [facility] 05-16-2022 influenza, high dose seasonal, preservative-free Juancarlos Cuenca Other [employer] Other 05-16-2022 influenza virus vaccine, split virus (incl. purified surface antigen) Juancarlos Cuenca Other [employer] [facility] [employer] Other 05-16-2022 influenza virus vaccine, unspecified formulation [facility] 04-15-2022 SARS-CoV-2 (COVID-19 ) [id number] Nya BIRD [facility] 11-09-2021 COVID-19 Comirnaty (Pfizer) Tri-Sucrose 12+ [facility] 11-09-2021 COVID-19 Vaccine Pfi zer - Documentation Purposes Only Juancarlos Cuenca Other [facility] 11-09-2021 SARS-CoV-2 mRNA (hzvpodurydc-vzoz-ksili se) vaccine Nya NILL [facility] 04-19-2021 Fluzone QIV High-Dos e 65YR+ [facility] 04-19-2021 SARS-CoV-2 (COVID-19 ) mRNA BNT-162b2 vax [employer] [facility] Comment on above: Result Comment: 2022: [id number] 09-05-2020 SARS-CoV-2 (COVID-19 ) mRNA BNT-162b2 vax [employer] [facility] Comment on above: Result Comment: 2022: [id number] 08-15-2020 COVID-19 Vaccine Moderna - Documentation Purposes Only Juancarlos Cuenca Other [facility] 08-15-2020 SARS-CoV-2 (COVID-19 ) mRNA BNT-162b2 vax ePub Direct [facility] Comment on above: Result Comment: 2022: [id number] 03-28-2020 influenza virus vaccine, split virus (incl. purified surface antigen) Juancarlos Cuenca Other [employer] Other 03-28-2020 influenza virus vaccine, unspecified formulation [facility] 05-17-2019 influenza virus vaccine, split virus (incl. purified surface antigen) Juancarlos Cuenca Other [employer] Other 05-17-2019 influenza virus vaccine, unspecified formulation [facility] 05-13-2018 influenza virus vaccine, split virus (incl. purified surface antigen) Juancarlos Cuenca Other [employer] Other 05-13-2018 influenza virus vaccine, unspecified formulation [facility] 05-13-2018 Seasonal trivalent influenza vaccine, adjuvanted, preservative free [facility] 04-26-2018 influenza, injectabl e, quadrivalent, preservative free [facility] 04-19-2018 influenza, injectabl e, quadrivalent, preservative free [facility] 06-09-2017 Seasonal trivalent influenza vaccine, adjuvanted, preservative free [facility] 06-03-2017 influenza, injectabl e, quadrivalent, preservative free [facility] 03-25-2017 influenza, injectabl e, quadrivalent, preservative free [facility] 04-25-2015 influenza virus vaccine, split virus (incl. purified surface antigen) Juancarlos Cuenca Other [employer] Other 04-25-2015 influenza virus vaccine, unspecified formulation [facility] 04-25-2015 pneumococcal conjuga te vaccine, 13 valent Juancarlos Cuenca Other [facility] 04-19-2015 influenza, injectabl e, madin puja canine kidney, preservative free [facility] 04-19-2014 pneumococcal polysaccharide vaccine, 23 valent Juancarlos Cuenca Other [facility] 04-20-2013 tetanus and diphther ia toxoids, adsorbed, preservative free, for adult use (5 Lf of tetanus toxoid and 2 Lf of diphtheria toxoid) Juancarlos Cuenca Other [facility] 04-21-2012 pneumococcal polysaccharide vaccine, 23 valent Juancarlos Cuenca Other [facility] Payers Date Payer Category Payer Self-pay [id number] 2023 Unknown [id number] 2020 Private Health Insurance [facility] AARP SUPPLEMENT [id number] 2020-Present [phone] [address] [place] [address] Indemnity [id number] 2020 Private Health Insurance [id number] 2009 Medicare MEDICARE MEDICAR E A AND B [id number] 2009-Present [phone] [place] [address] Medicare [id number] .[id number] 2009 Medicare [id number]. 1.13.159.2 .[id number] 1959 Medicare [id number] 1959 Unknown [id number] 1944 Unknown [id number] 2.16.840.1.643683.3.579.2 .647 1944 Unknown [id number] 2.16.840.1.671324.3.579.2 .647 1944 Unknown [id number] 2.16.840.1.667344.3.579.2 .593 1944 Unknown [id number] 2.16.840.1.884729.3.579.2 .593 1944 Unknown [id number] 2.16.840.1.265504.3.579.2 .593 1944 Unknown [id number] 2.16.840.1.561634.3.579.2 .593 1944 Unknown [id number] 2.16.840.1.659609.3.579.2 .593 1944 Unknown [id number] 2.16.840.1.031932.3.579.2 .593 1944 Unknown [id number] 2.16.840.1.790019.3.579.2 .593 1944 Unknown [id number] 2.16.840.1.124995.3.579.2 .593 1944 Unknown [id number] 2.16.840.1.186293.3.579.2 .593 1944 Unknown [id number] 2.16.840.1.124461.3.579.2 .593 1944 Unknown [id number] 2.16.840.1.358463.3.579.2 .593 1944 Unknown [id number] 2.16.840.1.562104.3.579.2 .593 1944 Unknown [id number] 2.16.840.1.876065.3.579.2 .593 1944 Unknown [id number] 2.16.840.1.861420.3.579.2 .593 1944 Unknown [id number] 2.16.840.1.480188.3.579.2 .593 1944 Unknown [id number] 2.16.840.1.708746.3.579.2 .593 1944 Unknown [id number] 2.16.840.1.858376.3.579.2 .593 1944 Unknown [id number] 2.16.840.1.988706.3.579.2 .593 1944 Unknown [id number] 2.16.840.1.493475.3.579.2 .593 1944 Unknown [id number] 2.16.840.1.289880.3.579.2 .727 1944 Unknown [id number] 2.16.840.1.092581.3.579.2 .727 1944 Unknown [id number] 2.16.840.1.226227.3.579.2 .727 1944 Unknown [id number] 2.16.840.1.800585.3.579.2 .196 1944 Unknown [id number] 2.16.840.1.620443.3.579.2 .196 1944 Unknown [id number] 2.16.840.1.603265.3.579.2 .1944 Unknown [id number] 2.16.840.1.637102.3.579.2 .1258 1944 Unknown [id number] 2.16.840.1.371732.3.579.2 .1258 1944 Unknown [id number] 2.16.840.1.560122.3.579.2 .1258 1944 Unknown [id number] 2.16.840.1.875232.3.579.2 .1258 1944 Unknown [id number] 2.16.840.1.417560.3.579.2 .1258 1944 Unknown [id number] 2.16.840.1.963047.3.579.2 .1258 1944 Unknown [id number] 2.16.840.1.247739.3.579.2 .1258 1944 Unknown [id number] 2.16.840.1.280202.3.579.2 .1258 1944 Unknown [id number] 2.16840.1.489513.3.579.2 .1258 1944 Unknown [id number] 2.16.840.1.900681.3.579.2 .1258 1944 Unknown [id number] 2.16.840.1.403161.3.579.2 .1259 Unknown [id number] Unknown [id number] 2.16.840.1.148719.19 Unknown [id number] [facility] Insurance [id number] Unknown [id number] 2.16.840.1.317693.3.579.2 .531 Unknown [id number] 2.16.840.1.513737.3.579.2 .531 Social History Date Type Detail Facility Start: 05-21-2021 End: 10-01-2023 Tobacco smoking status NHIS Ex-smoker [facility] End: 07-20-1994 History of tobacco use Current smoker [facility] End: 07-20-1994 History of tobacco use Cigar Smoker [facility] Start: 05-21-2021 End: 10-01-2023 Tobacco use and exposure Smokeless tobacco non-user [facility] Start: 10-10-2021 End: 10-15-2023 Alcohol intake Ex-drinker (finding) [facility] Start: 05-21-2021 End: 10-16-2022 Tobacco Comment Quit 15+ years [facility] Start: 1945 Sex Assigned At Not on file [facility] Start: 08-25-2021 End: 09-24-2021 Exposure to SARS-CoV-2 (event) Not sure [facility] Start: 09-16-2022 Tobacco smoking status Never s moked tobacco (finding) [facility] Tobacco smoking status Former sm okeless tobacco user, quit more than 30 days ago [facility] Start: 10-15-2023 End: 01-06-2025 Sex Assigned At Male [facility] Start: 10-15-2023 End: 01-06-2025 History of Social function [facility] Start: 1945 Sex Assigned At Male F [facility] History of tobacco use Cigarette Smoker [facility] History of tobacco use Passive smoker [facility] Start: 06-02-2024 End: 01-06-2025 Alcoholic beverage intake Lifetime non-drinker (finding) [facility] Start: 09-14-2024 End: 12-16-2024 Sex Male (finding) [facility] Medical Equipment Procedure Code Equipment Code Equipment Origin al Text Equipment Identifier Dates Mesh Parietene Polypropylene Macroporous [id number] Surgical Monofilament - [id number] Start: 09-24-2021 Blood Sugar Diag nostic [...] serious difficulty hearing No 10/01/2021 2:46 PM CAMILLAT Wendy Paris RN No [facility] 10-01-2021 Are you blind, or do you have serious difficulty seeing, even when wearing glasses No 10/01/2021 2:46 PM Wendy Rodriguez, NILAM No [facility] 10-01-2021 Do you have serious difficulty walking or climbing stairs No 10/01/2021 2:46 PM CAMILLAT Wendy Paris, NILAM No [facility] 10-01-2021 Do you have difficul ty dressing or bathing No 10/01/2021 2:46 PM EDT Wendy Paris, NILAM [facility] 10-01-2021 Because of a physica l, mental, or emotional condition, do you have difficulty doing errands alone such as visiting a physician's office or shopping No 10/01/2021 2:46 PM Wendy Rodriguez, NILAM No [facility] Mental Status Date Assessment Result Facility 10-01-2021 Because of a physica l, mental, or emotional condition, do you have serious difficulty concentrating, remembering, or making decisions No 10/01/2021 2:46 PM Wendy Rodriguez, NILAM No [facility] Clinical Notes 12-29-2020 to 01-06-2025 Matthew Kearns, - 01/06/2025 11:00 AM EDTPhillip Bingham DPM - 01/05/2025 10:30 AM EDT Note Date & Type Note Facility 01-06-2025 History of Presen t illness Narrative Images from the original note were not included. Assessment/Plan Diagnoses and all orders for this visit: Right posterior capsular opacification - PCO OD: (Posterior Capsule Opacification) Can be observed without [...] laser capsulotomy, they are to notify their cashier parking lot promptly if they have a significant change in symptoms, such as flashes of light (photopsia), an increase in floaters, loss of visual field or decrease in visual acuity. Epiretinal membrane (ERM) of left eye - The condition and pathophysiology were described to the patient. An epiretinal membrane (ERM) has the potential to influence quality of vision including acuity as well as metamorphopsia. Advised observation at this time. Dry eyes - Dry Eyes OU -- Environmental changes to minimize dryness and exposure and the use of artificial tears were recommended. Blepharitis of upper and lower eyelids of both eyes, unspecified type - Blepharitis, posterior type OU - The patient exhibits inspissated meibomian glands. Warm compresses, lid massage and lid scrubs were recommended. documented in this encounter [facility] 01-05-2025 History of Presen t illness Narrative Patient: Lizzy Yee : 1945 PCP: Juancarlos Cuenca DO SUBJECTIVE This is a 78 y.o. male [...] paroxysmal positional vertigo) CAD (coronary artery disease) Colon polyp Depression DM polyneuropathy (HCC) NARINDER (generalized anxiety disorder) HLD (hyperlipidemia) Hoarseness of voice HTN (hypertension) Lumbar spondylosis Mitral regurgitation OA (osteoarthritis) BHUPENDRA [...] 30 MINUTES BY BREAKFAST, Disp: , Rfl: Pufrgeeolfu-Hdyixxcu-Wtsbojqbd 1-0.5-0.075 % solution, Administer 1 drop into affected eye(s) in the morning and 1 drop at noon and 1 drop in the evening and 1 drop before bedtime., Disp: 10 mL, Rfl: 1 triamcinolone (Kenalog) 0.1 % ointment, Apply topically [...] Insecurity: No Food Insecurity (07/02/2023) Received from [facility] Hunger Screening Within the past 12 months [...] Violence: Unknown (09/10/2023) Received from [facility] Safety & Environment Fear of Current or [...] growth with thin shiny atrophic skin bilaterally. VASC: Positive DP and negative PT pedal pulses NEURO: 5.07 [place]oon monofilament test diminished to digits and forefoot bilaterally 125Hz tuning fork diminished to 1st MPJ bilaterally ORTHO: Positive pain on palpation to toenails of the left 1,2,3,4,5 toes and right 1,2,3,4,5 toes ASSESSMENT 1. Diabetes mellitus due to underlying condition with diabetic polyneuropathy, unspecified whether intermediate frame tender insulin use (HCC) 2. Pain due to onychomycosis of toenails of both feet PLAN Discussed proper foot care with patient [...] Phillip Bingham DPM documented in this encounter [facility] 11-14-2024 Evaluation note Diagnosis Onset Date Resolution 2nd degree burn of multiple fingers of left hand not including thumb acute October 192024 3:47pm Type 2 diabetes mellitus with hyperglycemia acute November 14, 025 3:47pm Lymphedema of left lower extremity acute November 17, 2024 12:41pm Primary osteoarthritis of left knee acute November 17, 2024 12:41pm 2nd degree burn of multiple fingers of left hand not including thumb acute November 11:30am Chronic kidney disease acute 2024 11:30am Chronic venous insufficiency of lower extremity acute November 21, 2024 11:30am Type 2 diabetes mellitus with hyperglycemia acute November 21, 2024 11:30am ASHD (arteriosclerotic heart disease) acute December 16, 2024 10:49am Elevated cholesterol acute December 16, 2024 10:49am Familial polyposis acute December 162024 10:49am Obstructive sleep apnea acute 2024 10:49am Primary hypertension acute December 16, 2024 10:49am Type 2 diabetes mellitus with diabetic peripheral angiopathy without gangrene acute December 16, 2024 10:49am 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 December 16, 2024 10:49am Type 2 diabetes mellitus with hyperglycemia acute December 16 10:49am [facility] Work Phone: 1(478) 569-887304-10-2025 History of Present illness Narrative* Phillip Bingham DPM - 10/27/2024 10:50 AM EDT Patient: Lizzy Yee : 1945 PCP: [...] paroxysmal positional vertigo) CAD (coronary artery disease) ([facility]) Colon polyp Depression ([facility]) DM polyneuropathy ([facility] NARINDER (generalized anxiety disorder) ([facility] HLD (hyperlipidemia) ([facility]) Hoarseness of voice HTN (hypertension) ([facility]) Lumbar spondylosis Mitral regurgitation OA (osteoarthritis) BHUPENDRA [...] 30 MINUTES BY BREAKFAST, Disp: , Rfl: Yvtjtvqawiz-Harmupze-Nxmskigwy 1-0.5-0.075 % solution, Administer 1 drop into affected eye(s) in the morning and 1 drop at noon and 1 drop in the evening and 1 drop before bedtime., Disp: 10 mL, Rfl:1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 DO Primary Care Provider Active Start: November 17, 2024 End: November 17, 2024 Ej Anthony II, MD Attending Provider Active Start: November 17, 2024 End: November 17, 2024 Team Status: Inactive Member Role Status Dates Juancarlos Cuenca DO Primary Care Provide r, Attending Provider Active Start: November 21, 2024 End: November 21, 2024 Team Status: Inactive Member Role Status Dates Juancarlos Cuenca DO Primary Care Provide r, Attending Provider Active Start: December 16, 2024 End: December 16, 2024 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 Tile Mechanic Relationship Specialty Start Date End Date Juancarlos Cuenca DO PCP - General Internal Medicine 10/01/23 Joanna Lin DO [address] [place] [address] Referring Physician Neurology 10/20/23 Mary Kate Shine MD [address] [place] [address] Referring Physician Optometry 08/24/24 Ceramic Tile Mechanic Relationship Specialty Start Date End Date Juancarlos Cuenca DO [address] [facility] [place] [phone] PCP - General Internal Medicine 10/01/23 Joanna Lin DO [address] [place] [address] Referring Physician Neurology 10/20/23 Mary Kate Shine MD [address] [place] [address] Referring Physician Optometry 08/24/24 Ceramic Tile Mechanic Relationship Specialty Start Date End Date Juancarlos Cuenca DO [address] [facility] [place] [phone] PCP - General Internal Medicine 10/01/23 Joanna Lin DO [address] [place] [address] Referring Physician Neurology 10/20/23 Mary Kate Shine MD [address] [place] [address] Referring Physician Optometry 08/24/24 Ceramic Tile Mechanic Relationship Specialty Start Date End Date Juancarlos Cuenca DO [address] [facility] [place] [phone] PCP - General Internal Medicine 10/01/23 Joanna Lin DO [address] [place] [address] Referring Physician Neurology 10/20/23 Mary Kate Shine MD [address] [place] [address] Referring Physician Optometry 08/24/24 Ceramic Tile Mechanic Relationship Specialty Start Date End Date Juancarlos CuencaDO [address] [place] [facility] [place] [address] PCP - General Internal Medicine 10/01/23 Joanna Lin DO [address] [place] [address] Referring Physician Neurology 10/20/23 Mary Kate Shine MD [address] [place] [address] Referring Physician Optometry 08/24/24 Goals (unrecognized section [...] BE BASED ON THE PRIMARY CLINICAL RECORDS. [facility]. provides no warranty or guarantee of the accuracy or completeness of information in this document.
[2025-01-16 23:50] VITALS: O2SAT 97
[2025-01-16 23:53] LABS: Anion Gap 11.5; Blood Urea Nitrogen 18.0 mg/dL (7.0-18.0); Carbon Dioxide 28.8 mmol/L (21.0-32.0); Chloride 100 mmol/L (98-107); Glucose 193 mg/dL (74-106); Potassium 4.3 mmol/L (3.5-5.1); Sodium 136 mmol/L (136-145)
[2025-01-16 23:54] LABS: Calcium 9.9 mg/dL (8.5-10.1); Estimated GFR (African America >60 (>=60 mL/min/1.73m^2); Estimated GFR (Non-African Ame >60 (>=60 mL/min/1.73m^2); Lipase 13.0 U/L (16.0-77.0)
[2025-01-17] VITALS (33 sets, daily range): BP systolic 102–178; BP diastolic 58–97; PULSE 56–66; TEMP 36.3–36.7; O2SAT 94–98; BMI 35.6
[2025-01-17 00:01] LABS: Lactate/Lactic Acid 1.5 mmol/L (0.4-2.0)
[2025-01-17 00:10] LABS: Alanine Aminotransferase 39 U/L (16-63); Albumin Globulin Ratio 0.9; Albumin Level 3.4 g/dL (3.4-5.0); Alkaline Phosphatase 144 U/L (46-116); Aspartate Amino Transferase 21 U/L (15-37); Globulin 3.6 g/dL; Total Protein 7.0 g/dL (6.4-8.2)
[2025-01-17 01:42] LABS: Glucose Urine UA 100 mg/dL (NEGATIVE)
[2025-01-17 02:03] LABS: Cast Seen? NONE SEEN #/LPF (NONE SEEN); Crystals Seen? None Seen #/HPF (None Seen); Urine Culture Indicated NO
[2025-01-17] MEDS: 0.9 % SODIUM CHLORIDE 1,000 ML 125 ML IV ×3 (07:22→23:31)
--- NOTE | 2025-01-17 11:13 | PM.IMHP1 ---
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 On assessment at bedside in the emergency room, patient resting comfortably in bed, had 2 episodes of nausea and vomiting yesterday, progressive over the course of the day, did vomit p.o. antihypertensives yesterday and did not take a.m. dose today as a result. Denies any fevers, chills, chest pain, shortness of breath. Possible slight association with food. In the ER CT abdomen ordered and showed concerns for layering in the common bile duct concern for choledocholithiasis prompting transfer as above. On chart review, appears to have had concerns for choledocholithiasis on 10/27/2023 given right upper quadrant ultrasound ordered for reported LFT elevations, however abdominal MRI did not show any evidence of focal filling defect or mass. Review of Systems ROS Status of ROS 10 or more systems reviewed and unremarkable except as noted in history and below [facility] Medical History Diabetes ?E11.9 - Type 2 diabetes mellitus without complications (ICD-10) History of shingles ?Z86.19 - Personal history of other infectious and parasitic diseases (ICD-10) Osteoarthritis ?M19.90 - Unspecified osteoarthritis, unspecified site (ICD-10) Hiatal hernia ?K44.9 - Diaphragmatic hernia without obstruction or gangrene (ICD-10) Acid reflux ?K21.9 - Gastro-esophageal reflux disease without esophagitis (ICD-10) Carpal tunnel syndrome ?G56.00 - Carpal tunnel syndrome, unspecified upper limb (ICD-10) Hearing deficit ?H91.90 - Unspecified hearing loss, unspecified ear (ICD-10) High cholesterol ?E78.00 - Pure hypercholesterolemia, unspecified (ICD-10) Heart murmur ?R01.1 - Cardiac murmur, unspecified (ICD-10) Surgical History Hx of hernia repair ?Z98.890 - Other specified postprocedural states (ICD-10) ?Z87.19 - Personal history of other diseases of the digestive system (ICD-10) H/O total hip arthroplasty ?Z96.649 - Presence of unspecified artificial hip joint (ICD-10) H/O ventral hernia repair ?Z98.890 - Other specified postprocedural states (ICD-10) ?Z87.19 - Personal history of other diseases of the digestive system (ICD-10) Stented coronary artery ?Z95.5 - Presence of coronary angioplasty implant and graft (ICD-10) History of atherectomy ?Z98.890 - Other specified postprocedural states (ICD-10) H/O hemicolectomy ?Z90.49 - Acquired absence of other specified parts of digestive tract (ICD-10) H/O cystoscopy ?Z98.890 - Other specified postprocedural states (ICD-10) S/P CABG x 4 ?Z95.1 - Presence of aortocoronary bypass graft (ICD-10) Social History Little interest or pleasure in doing things: not at all Feeling down, depressed, or hopeless: not at all Meds Home Medications and Allergies Home Medications ?Medication ?Instructions ?Recorded ?Confirmed ?Type aspirin 81 mg tablet,delayed 81 mg PO DAILY 12/26/22 01/16/25 History release (Adult Aspirin Regimen) atorvastatin 80 mg tablet 80 mg PO .QHS 12/26/22 01/17/25 History calcium 500 mg (as 1 tab PO DAILY 12/26/22 01/16/25 History carbonate)-vitamin D3 10 mcg (400 unit) tablet cinnamon bark 500 mg capsule 1,000 mg PO DAILY 12/26/22 01/16/25 History (Cinnamon) clopidogrel 75 mg tablet 75 mg PO DAILY 12/26/22 01/16/25 History glipizide 5 mg tablet 10 mg PO QAM 12/26/22 01/17/25 History hydrochlorothiazide 25 mg tablet 25 mg PO DAILY 12/26/22 01/16/25 History multivitamin 1 tab PO DAILY 12/26/22 04/11/24 History omega-3 fatty acids 1,000 mg 1,000 mg PO DAILY 12/26/22 04/11/24 History capsule pantoprazole 40 mg tablet,delayed 40 mg PO QAM 12/26/22 01/16/25 History release vitamin B complex 1 tab PO DAILY 12/26/22 04/11/24 History zinc acetate 50 mg (zinc) capsule 50 mg PO DAILY 12/26/22 04/11/24 History amlodipine 5 mg tablet 5 mg PO QDAY 06/05/23 01/16/25 History baclofen 10 mg tablet 10 mg PO BEDTIME PRN muscle spasm 08/03/23 01/16/25 History gabapentin 100 mg capsule 200 mg PO BID PRN TOLERATED 05/25/24 05/25/24 History carvedilol 6.25 mg tablet 6.25 mg PO BIDWM 01/17/25 01/17/25 History glipizide 5 mg tablet 5 mg PO DAILY@1700 01/17/25 01/17/25 History lisinopril 30 mg tablet 30 mg PO DAILY 01/17/25 01/17/25 History Allergies Allergy/AdvReac Type Severity Reaction Status Date / Time No Known Drug Allergies Allergy Verified 01/16/25 23:17 Exam Narrative Exam Narrative: Gen.: Awake, alert, in no distress Head: Normocephalic, atraumatic ENT: Moist mucous membranes Respiratory: No respiratory distress, lungs clear bilaterally Cardio: Regular rate, does have frequent PVCs Gastrointestinal: Abdomen is soft, nondistended and nontender to palpation Extremities: Moves extremities equally Psych: Normal mood and affect Neuro: No focal neuro deficit Skin: Warm, dry, intact Constitutional Vital Signs, click to edit/add: Last Vital Signs Temp 98.2 F 01/16/25 23:11 Pulse 76 01/16/25 23:11 Resp 18 01/16/25 23:11 BP 136/85 01/17/25 08:00 Pulse Ox 97 01/17/25 01:42 O2 Del Method Room Air 01/16/25 23:11 Internal Medicine - H&P: Reslt Labs Labs: Short CBC 01/16/25 Range/Units 23:30 WBC 8.6 (4.0-11.0) 10^3/uL Hgb 15.2 (14.0-18.0) g/dL Hct 43.7 (42.0-54.0) % Plt Count 201 (150-450) 10^3/uL BMP 01/16/25 23:30 Sodium 136 Potassium 4.3 Chloride 100 Carbon Dioxide 28.8 BUN 18.0 Creatinine 1.13 Glucose 193 H Calcium 9.9 Liver Function 01/16/25 Range/Units 23:30 Total Bilirubin 0.5 (0.2-1.0) mg/dL Direct Bilirubin 0.2 (0.0-0.2) mg/dL AST 21 (15-37) U/L ALT 39 (16-63) U/L Alkaline Phosphatase 144 H (46-116) U/L Albumin 3.4 (3.4-5.0) g/dL Urine 01/17/25 Range/Units 01:31 Urine Color Lt. 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 1. nausea and vomiting with radiographic evidence of choledocholithiasis, concern for symptomatic cholelithiasis - In the ER CT abdomen ordered and showed concerns for layering in the common bile duct concern for choledocholithiasis prompting transfer as above. On chart review, appears to have had concerns for choledocholithiasis on 10/27/2023 given right upper quadrant ultrasound ordered for reported LFT elevations, however abdominal MRI did not show any evidence of focal filling defect or mass. - WBC 8.6, direct bilirubin 0.2, AST 21, ALT 39 - admit as inpatient - RUQ u/s and MRCP ordered - EKG shows frequent PVCs, check troponin - start empiric zosyn for now, d/c if no evidence of acute biliary obstruction - ok for diet for now, will make NPO if evidence of stones 2. 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
[2025-01-17] MEDS: PIPERACILLIN SODIUM/TAZOBACTAM 4.5 GM in 0.9 % SODIUM CHLORIDE 50 ML IV (11:27)
--- NOTE | 2025-01-17 11:31 | US_ITS ---
The [address] [address] Patient Name: LIZZY BURK MRN: [id number] date: 1945 Sex: M Assigned Patient Location: [place] Current Patient Location: [place] Accession/Order Number: [id number] Exam Date: 01/17/2025 13:31 Report Date: 01/17/2025 13:35 At the request of: JUSTIN JERONIMO MD Procedure: US right upper quadrant LIMITED ABDOMINAL ULTRASOUND: CLINICAL HISTORY: choledocholithiasis vs symptomatic cholelithiasis COMPARISON: CT abdomen and pelvis performed earlier today. TECHNIQUE: Grayscale and color Doppler images of the right upper quadrant organs were obtained. FINDINGS: Pancreas: Not visualized. Liver: No focal mass or intrahepatic bile duct dilatation. Hepatopedal flow is seen within the portal vein. Gallbladder: Gallbladder sludge. stones are seen within the proximal CBD. CBD: 13 mm RT KIDNEY: No Hydronephrosis US/US right upper quadrant IMPRESSION: GALLBLADDER SLUDGE WITHOUT STONE SEEN WITHIN THE PROXIMAL CBD. FINDING IS CONFIRMED ON THE PRIOR CT STUDY. CHOLEDOCHOLITHIASIS IS SUSPECTED. THERE IS ASSOCIATED CBD DILATATION. DEVELOPING ACUTE CHOLECYSTITIS CANNOT BE EXCLUDED. THIS CAN BE CONFIRMED BY HIDA SCAN.. Impression dictated by: Jus Jimenez Jr., D.O. 01/17/2025 1:35 PM Dictation Location: [place] [address] Electronically authenticated by: [id number] Y Date: 01/17/2025 13:35
--- NOTE | 2025-01-17 11:49 | ECG_ITS ---
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 Measurements Intervals [place] Rate: 52 P: 25 CT: 148 QRS: 15 QRSD: 78 T: 24 QT: 384 QTc: 363 Interpretive Statements 1100 Sinus rhythm 1570 with occasional ventricular premature complexes 8102 Low QRS voltage in chest leads 9140 abnormal rhythm ECG Compared to ECG 05/03/2023 16:29:40 No significant changes Electronically Signed On 01-18-2025 6:37:09 EDT by CRISTELA OCAMPO M.D.
[2025-01-17 12:17] LABS: Hematocrit 43.5 % (42.0-54.0); Hemoglobin 15.0 g/dL (14.0-18.0); Immature Granulocytes Abs Auto 0.02 10^3/uL (0.00-0.03); Immature Granulocytes Pct Auto 0.2 % (0.0-0.5); Lymphocytes Absolute Auto 1.3 10^3/uL (1.2-3.8); Mean Corpuscular HGB Conc 34.5 g/dL (29.9-35.2); Mean Corpuscular Hemoglobin 31.8 pg (25.9-34.0); Mean Corpuscular Volume 92.4 fL (80.0-94.0); Platelet Count 202 10^3/uL (150-450); Red Blood Count 4.71 10^6/uL (4.70-6.10); White Blood Count 8.7 10^3/uL (4.0-11.0)
[2025-01-17 12:32] LABS: Anion Gap 14.4; Blood Urea Nitrogen 14.0 mg/dL (7.0-18.0); Calcium 9.8 mg/dL (8.5-10.1); Carbon Dioxide 27.1 mmol/L (21.0-32.0); Chloride 102 mmol/L (98-107); Estimated GFR (African America >60 (>=60 mL/min/1.73m^2); Estimated GFR (Non-African Ame >60 (>=60 mL/min/1.73m^2); Glucose 130 mg/dL (74-106); Potassium 4.5 mmol/L (3.5-5.1); Sodium 139 mmol/L (136-145)
[2025-01-17] MEDS: LISINOPRIL 10 MG TABLET 30 MG PO (12:52)
[2025-01-17] MEDS: HYDROCHLOROTHIAZIDE 25 MG TABLET PO (12:52)
[2025-01-17] MEDS: AMLODIPINE BESYLATE 5 MG TABLET PO (12:52)
[2025-01-17] MEDS: CARVEDILOL 6.25 MG TABLET PO ×2 (12:53→21:21)
[2025-01-17] MEDS: ATORVASTATIN CALCIUM 40 MG TABLET 80 MG PO (21:21)
[2025-01-18 05:00] VITALS: BP 170/81; PULSE 64; TEMP 36.5; O2SAT 93
[2025-01-18 05:37] LABS: Hematocrit 42.1 % (42.0-54.0); Hemoglobin 14.5 g/dL (14.0-18.0); Immature Granulocytes Abs Auto 0.02 10^3/uL (0.00-0.03); Immature Granulocytes Pct Auto 0.2 % (0.0-0.5); Lymphocytes Absolute Auto 1.9 10^3/uL (1.2-3.8); Mean Corpuscular HGB Conc 34.4 g/dL (29.9-35.2); Mean Corpuscular Hemoglobin 31.9 pg (25.9-34.0); Mean Corpuscular Volume 92.7 fL (80.0-94.0); Platelet Count 201 10^3/uL (150-450); Red Blood Count 4.54 10^6/uL (4.70-6.10); White Blood Count 10.9 10^3/uL (4.0-11.0)
[2025-01-18 05:59] LABS: Alanine Aminotransferase 30 U/L (16-63); Albumin Globulin Ratio 1.0; Albumin Level 3.0 g/dL (3.4-5.0); Alkaline Phosphatase 92 U/L (46-116); Anion Gap 13.5; Aspartate Amino Transferase 22 U/L (15-37); Blood Urea Nitrogen 11.0 mg/dL (7.0-18.0); Calcium 9.1 mg/dL (8.5-10.1); Carbon Dioxide 26.8 mmol/L (21.0-32.0); Chloride 104 mmol/L (98-107); Estimated GFR (African America >60 (>=60 mL/min/1.73m^2); Estimated GFR (Non-African Ame >60 (>=60 mL/min/1.73m^2); Globulin 3.1 g/dL; Glucose 125 mg/dL (74-106); Potassium 4.3 mmol/L (3.5-5.1); Sodium 140 mmol/L (136-145); Total Protein 6.1 g/dL (6.4-8.2)
[2025-01-18 07:25] VITALS: BP 162/92; PULSE 66; TEMP 36.7; O2SAT 94
[2025-01-18] MEDS: CARVEDILOL 6.25 MG TABLET PO (08:21)
[2025-01-18] MEDS: HYDROCHLOROTHIAZIDE 25 MG TABLET PO (08:21)
[2025-01-18] MEDS: AMLODIPINE BESYLATE 5 MG TABLET PO (08:21)
[2025-01-18] MEDS: 0.9 % SODIUM CHLORIDE 1,000 ML 125 ML IV (08:21)
[2025-01-18] MEDS: LISINOPRIL 10 MG TABLET 30 MG PO (08:21)
--- NOTE | 2025-01-18 08:36 | CM.NOTE ---
Important Message From Medicare discussed with pt, pt verbalizes understanding and signs paper. Original given to pt and copy placed on pt's chart.
--- NOTE | 2025-01-18 08:52 | PM.IMPN1 ---
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 1. nausea and vomiting with radiographic evidence of choledocholithiasis, concern for symptomatic cholelithiasis - In the ER CT abdomen ordered and showed concerns for layering in the common bile duct concern for choledocholithiasis prompting transfer as above. On chart review, appears to have had concerns for choledocholithiasis on 10/27/2023 given right upper quadrant ultrasound ordered for reported LFT elevations, however abdominal MRI did not show any evidence of focal filling defect or mass. - WBC 8.6, direct bilirubin 0.2, AST 21, ALT 39 - admit as inpatient - EKG shows frequent PVCs, check troponin - Right upper quadrant ultrasound showed multiple stones in common bile duct, however LFTs remain elevated - Will hold on Zosyn at this time, advance diet to low-fat as tolerated, however given multiple stones we will continue plan to transfer to [place] for potential ERCP/cholecystectomy 2. 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 Mild abdominal discomfort, no complaints overall. Exam Narrative Exam Narrative: Gen.: Awake, alert, in no distress Head: Normocephalic, atraumatic ENT: Moist mucous membranes Respiratory: No respiratory distress, lungs clear bilaterally Cardio: Regular rate and rhythm Gastrointestinal: Abdomen is soft, nondistended and nontender to palpation Extremities: Moves extremities equally Psych: Normal mood and affect Neuro: No focal neuro deficit Skin: Warm, dry, intact Constitutional Vital Signs, click to edit/add: Last Vital Signs Temp 98.1 F 01/18/25 07:25 Pulse 66 01/18/25 07:25 Resp 20 01/18/25 07:25 BP 162/92 H 01/18/25 07:25 Pulse Ox 94 L 01/18/25 07:25 O2 Del Method Room Air 01/18/25 07:25 Internal Medicine - PN: Obj Da Labs Labs: Laboratory Results - last 24 hr 01/17/25 01/17/25 01/17/25 11:20 12:08 15:39 WBC 8.7 RBC 4.71 Hgb 15.0 Hct 43.5 MCV 92.4 MCH 31.8 MCHC 34.5 RDW 14.4 Plt Count 202 MPV 9.3 L Neut % (Auto) 76.3 H Lymph % (Auto) 14.5 L Alcorn % (Auto) 7.9 Eos % (Auto) 0.9 Baso % (Auto) 0.2 Neut # (Auto) 6.6 H Lymph # (Auto) 1.3 Alcorn # (Auto) 0.7 Eos # (Auto) 0.1 Baso # (Auto) 0.0 Abs Immat Gran (auto) 0.02 Imm/Tot Granulo (auto) 0.2 Sodium 139 Potassium 4.5 Chloride 102 Carbon Dioxide 27.1 Anion Gap 14.4 BUN 14.0 Creatinine 0.96 Est GFR ( Amer) >60 Est GFR (Non-Af Amer) >60 BUN/Creatinine Ratio 14.6 Glucose 130 H Calcium 9.8 Total Bilirubin Direct Bilirubin AST ALT Alkaline Phosphatase Troponin I High Sens 41.1 Total Protein Albumin Globulin Albumin/Globulin Ratio POC Glucose 129 H 163 H 01/17/25 01/17/25 01/18/25 16:20 21:24 04:47 WBC 10.9 RBC 4.54 L Hgb 14.5 Hct 42.1 MCV 92.7 MCH 31.9 MCHC 34.4 RDW 14.5 Plt Count 201 MPV 9.9 Neut % (Auto) 72.5 Lymph % (Auto) 17.1 L Alcorn % (Auto) 8.4 Eos % (Auto) 1.5 Baso % (Auto) 0.3 Neut # (Auto) 7.9 H Lymph # (Auto) 1.9 Alcorn # (Auto) 0.9 H Eos # (Auto) 0.2 Baso # (Auto) 0.0 Abs Immat Gran (auto) 0.02 Imm/Tot Granulo (auto) 0.2 Sodium 140 Potassium 4.3 Chloride 104 Carbon Dioxide 26.8 Anion Gap 13.5 BUN 11.0 Creatinine 0.88 Est GFR ( Amer) >60 Est GFR (Non-Af Amer) >60 BUN/Creatinine Ratio 12.5 Glucose 125 H Calcium 9.1 Total Bilirubin 0.8 Direct Bilirubin 0.2 0.1 AST 22 ALT 30 Alkaline Phosphatase 92 Troponin I High Sens Total Protein 6.1 L Albumin 3.0 L Globulin 3.1 Albumin/Globulin Ratio 1.0 POC Glucose 110 H
--- NOTE | 2025-01-18 08:57 | SWNOTE1 ---
SW and I met with pt in room to discuss consult for advanced directive. SW asked pt if he has signed an advanced directive before. Pt voiced he thinks he has completed them. Pt is okay with SW to call to check. SW called pt's , she did voice that it should be in the system. SW did check but it is not in current system. Pt's voiced she is going to try and bring in a copy.
--- NOTE | 2025-01-18 09:00 | CM.NOTE ---
Rounds made with Dr. Mcduffie, pt awaiting transfer to [facility]. Dr. Mcduffie updated pt on plan of care.
--- NOTE | 2025-01-18 09:38 | SWNOTE1 ---
Was able to find HCPOA paperwork in old EMR. Printed and will scan into chart so pt's advanced directive is up to date. SW called pt's to notify her we found paperwork.
[2025-01-18 11:35] VITALS: BP 159/77; PULSE 63; TEMP 37; O2SAT 95
--- NOTE | 2025-01-18 13:50 | CM.NOTE ---
Pt and family provided with information on bed status from [facility]. Pt does have a bed, family given telephone number,address, and bed #. [facility] will transport pt, racing secretary and handicapper setting up transport.
--- NOTE | 2025-01-18 14:38 | PM.CACN ---
History of Present Illness History of Present Illness Consult date: 01/18/25 Requesting physician: JUSTIN JERONIMO Chief complaint: CHOLEDOCHOLITHIASIS preoperative clearance for ERC Narrative: -year-old male who is known to Dr. Coello, he has history of coronary artery disease and CABG in 2017, peripheral arterial disease including right popliteal artery angioplasty, carotid disease, hypertension, hyperlipidemia, sleep apnea, colon cancer status post hemicolectomy about 2 years ago and ventral hernia repair after that. He presented with nausea and vomiting and abdominal pain and he was found to have cholelithiasis. The plan is to transfer him to [facility] where he had previously his colectomy and also ventral hernia repair for possible ERCP and cholecystectomy. Cardiology was consulted for preop clearance. From cardiac point of view the patient states that he has been doing well. He is physically active and he works in his backyard without any chest pain or shortness of breath. He denies orthopnea or paroxysmal nocturnal dyspnea or dizziness or palpitations. He has legs edema particularly of the left lower extremity but he wears compression stockings at home and it has been well-controlled. Also he is on diuretic. Currently he denies smoking alcohol or illicit drugs. Review of Systems ROS Narrative All systems were reviewed and they were negative except for the above positive findings noted in the history [facility] Medical History Diabetes ?E11.9 - Type 2 diabetes mellitus without complications (ICD-10) History of shingles ?Z86.19 - Personal history of other infectious and parasitic diseases (ICD-10) Osteoarthritis ?M19.90 - Unspecified osteoarthritis, unspecified site (ICD-10) Hiatal hernia ?K44.9 - Diaphragmatic hernia without obstruction or gangrene (ICD-10) Acid reflux ?K21.9 - Gastro-esophageal reflux disease without esophagitis (ICD-10) Carpal tunnel syndrome ?G56.00 - Carpal tunnel syndrome, unspecified upper limb (ICD-10) Hearing deficit ?H91.90 - Unspecified hearing loss, unspecified ear (ICD-10) High cholesterol ?E78.00 - Pure hypercholesterolemia, unspecified (ICD-10) Heart murmur ?R01.1 - Cardiac murmur, unspecified (ICD-10) Surgical History Hx of hernia repair ?Z98.890 - Other specified postprocedural states (ICD-10) ?Z87.19 - Personal history of other diseases of the digestive system (ICD-10) H/O total hip arthroplasty ?Z96.649 - Presence of unspecified artificial hip joint (ICD-10) H/O ventral hernia repair ?Z98.890 - Other specified postprocedural states (ICD-10) ?Z87.19 - Personal history of other diseases of the digestive system (ICD-10) Stented coronary artery ?Z95.5 - Presence of coronary angioplasty implant and graft (ICD-10) History of atherectomy ?Z98.890 - Other specified postprocedural states (ICD-10) H/O hemicolectomy ?Z90.49 - Acquired absence of other specified parts of digestive tract (ICD-10) H/O cystoscopy ?Z98.890 - Other specified postprocedural states (ICD-10) S/P CABG x 4 ?Z95.1 - Presence of aortocoronary bypass graft (ICD-10) Family History (Updated 01/17/25 @ 12:56 by Collette Montes) Brother Family history of cancer Family history of myocardial infarction Family history of hypertension Father Family history of cancer Social History (Updated 01/17/25 @ 12:57 by Collette Montes) Within the past year, how often did you have a drink containing alcohol: never Within the past year, how often did you have six or more drinks on one occasion: never Score interpretation: A score less than 4 is consistent with normal alcohol consumption. Smoking status: Former smoker Non-prescribed substance use: denies use Previous occupational history: retired Highest level of school completed/degree received: 10th grade Are you now , , , , never or living with a partner: Little interest or pleasure in doing things: not at all Feeling down, depressed, or hopeless: not at all Meds Home Medications and Allergies Home Medications ?Medication ?Instructions ?Recorded ?Confirmed ?Type aspirin 81 mg tablet,delayed 81 mg PO DAILY 12/26/22 01/16/25 History release (Adult Aspirin Regimen) atorvastatin 80 mg tablet 80 mg PO .QHS 12/26/22 01/17/25 History calcium 500 mg (as 1 tab PO DAILY 12/26/22 01/16/25 History carbonate)-vitamin D3 10 mcg (400 unit) tablet cinnamon bark 500 mg capsule 1,000 mg PO DAILY 12/26/22 01/16/25 History (Cinnamon) clopidogrel 75 mg tablet 75 mg PO DAILY 12/26/22 01/16/25 History glipizide 5 mg tablet 10 mg PO QAM 12/26/22 01/17/25 History hydrochlorothiazide 25 mg tablet 25 mg PO DAILY 12/26/22 01/16/25 History multivitamin 1 tab PO DAILY 12/26/22 01/17/25 History omega-3 fatty acids 1,000 mg 1,000 mg PO DAILY 12/26/22 01/17/25 History capsule pantoprazole 40 mg tablet,delayed 40 mg PO QAM 12/26/22 01/16/25 History release vitamin B complex 1 tab PO DAILY 12/26/22 01/17/25 History zinc acetate 50 mg (zinc) capsule 50 mg PO DAILY 12/26/22 01/17/25 History amlodipine 5 mg tablet 5 mg PO QDAY 06/05/23 01/16/25 History baclofen 10 mg tablet 10 mg PO BEDTIME PRN muscle spasm 08/03/23 01/16/25 History carvedilol 6.25 mg tablet 6.25 mg PO BIDWM 01/17/25 01/17/25 History glipizide 5 mg tablet 5 mg PO DAILY@1700 01/17/25 01/17/25 History lisinopril 30 mg tablet 30 mg PO DAILY 01/17/25 01/17/25 History Allergies Allergy/AdvReac Type Severity Reaction Status Date / Time No Known Drug Allergies Allergy Verified 01/16/25 23:17 Exam Narrative Exam Narrative: Alert, oriented, not in apparent distress HEENT within normal limits Neck supple normal range of motion, no carotid bruit, jugular venous pressure is normal Lungs clear to auscultation without rales or rhonchi or wheezes Abdomen soft, benign, currently no tenderness, no organomegaly Cardiovascular system regular rate and rhythm, normal S1 and S2, no gallop or murmur or click Extremities currently no edema or cyanosis or clubbing Neurological examination grossly normal Constitutional Vital Signs, click to edit/add: Last Vital Signs Temp 98.6 F 01/18/25 11:35 Pulse 63 01/18/25 11:35 Resp 2 L 01/18/25 11:35 BP 159/77 H 01/18/25 11:35 Pulse Ox 95 01/18/25 11:35 O2 Del Method Room Air 01/18/25 11:35 Results Labs and Meds Lab results: Cardiac Enzymes 01/18/25 Range/Units 04:47 AST 22 (15-37) U/L CBC 01/18/25 Range/Units 04:47 WBC 10.9 (4.0-11.0) 10^3/uL RBC 4.54 L (4.70-6.10) 10^6/uL Hgb 14.5 (14.0-18.0) g/dL Hct 42.1 (42.0-54.0) % Plt Count 201 (150-450) 10^3/uL Neut # (Auto) 7.9 H (1.4-6.5) 10^3/uL Lymph # (Auto) 1.9 (1.2-3.8) 10^3/uL [place] # (Auto) 0.9 H (0.3-0.8) 10^3/uL Eos # (Auto) 0.2 (0.0-0.7) 10^3/uL Baso # (Auto) 0.0 (0.0-0.1) 10^3/uL Comprehensive Metabolic Panel 01/17/25 01/18/25 Range/Units 16:20 04:47 Sodium 140 (136-145) mmol/L Potassium 4.3 (3.5-5.1) mmol/L Chloride 104 (98-107) mmol/L Carbon Dioxide 26.8 (21.0-32.0) mmol/L BUN 11.0 (7.0-18.0) mg/dL Creatinine 0.88 (0.70-1.30) mg/dL Glucose 125 H (74-106) mg/dL Calcium 9.1 (8.5-10.1) mg/dL Direct Bilirubin 0.2 0.1 (0.0-0.2) mg/dL AST 22 (15-37) U/L ALT 30 (16-63) U/L Alkaline Phosphatase 92 (46-116) U/L Total Protein 6.1 L (6.4-8.2) g/dL Albumin 3.0 L (3.4-5.0) g/dL Intake and Output 01/17/25 01/18/25 01/18/25 23:59 07:59 15:59 Intake Total 1350 / 3350 1000 / 3350 450 / 450 Output Total 1550 / 3125 675 / 3125 1050 / 1050 Balance -200 / 225 325 / 225 -600 / -600 Intake: Oral 350 / 350 200 / 200 IV 1000 / 3000 1000 / 3000 250 / 250 0.9 % Sodium Chloride 1,000 ml 1000 / 2950 1000 / 2950 250 / 250 @ 125 mls/hr IV .Q8H CECI Rx#: [id number] Output: Urine 1550 / 3125 675 / 3125 1050 / 1050 Other: # Voids 1 # Bowel Movements 1 EKG today showed normal sinus rhythm with PVCs in bigeminal pattern, no significant changes in comparison to EKG 05/03/2023 Echo 05/09/2024 Hyperdynamic left ventricle without wall motion abnormalities, ejection fraction 70% Mild concentric left ventricular hypertrophy Grade 1 diastolic dysfunction Mild mitral annulus calcification Normal right ventricle size and systolic function No significant valvular abnormalities No evidence of pulmonary hypertension Assessment and Plan Assessment and Plan (1) Preoperative clearance: (2) Choledocholithiasis: (3) Coronary artery disease: Assessment and Plan: Clinically stable without any signs or symptoms of angina or heart failure. EKG without acute changes. Echo in April 2024 showed normal left ventricular systolic function and no wall motion abnormalities. At home he is on aspirin, Plavix, Coreg, and atorvastatin (4) S/P CABG x 4: (5) Peripheral arterial disease: Assessment and Plan: Status post right popliteal artery angioplasty, he follows with vascular surgery. He is at home at aspirin, Plavix, and atorvastatin (6) Essential hypertension: Assessment and Plan: Well-controlled on current treatment with Coreg, lisinopril, hydrochlorothiazide, and amlodipine (7) Hyperlipidemia: Assessment and Plan: On atorvastatin (8) Sleep apnea: Assessment and Plan: On CPAP (9) Diabetes: (10) Colon cancer: (11) H/O hemicolectomy: (12) H/O ventral hernia repair: (13) Lumbar degenerative disc disease: Plan Continue Coreg, lisinopril, hydrochlorothiazide, and amlodipine Aspirin and Plavix are on hold in expectation of ERCP and possible cholecystectomy The patient is clinically stable from the cardiac point of view without any signs or symptoms of angina or of heart failure. EKG without acute changes. Echo in April 2024 showed normal left ventricular systolic function without wall motion abnormalities and without significant valvular heart disease. Therefore I think the patient can proceed with ERCP and possible cholecystectomy from cardiac point of view without any further cardiac workup. He is considered to be at moderate risk for perireoperative cardiac events. It is recommended to avoid all factors that may precipitate ischemia such as hypo or hypertension, tachycardia or bradycardia, hypoxia and anemia. Patient also should receive Coreg the morning of the surgery. Aspirin and Plavix should be resumed as soon as possible post surgery. Any signs or symptoms of cardiac ischemia or heart failure should be addressed promptly
--- NOTE | 2025-01-18 14:39 | PC.NURSE ---
Report called to Rae [facility] [employer]. Informed of giving IV reglan prior to ambulance ride, and of expected transport time of 15:30
[2025-01-18] MEDS: METOCLOPRAMIDE HCL 10 MG/2 ML VIAL 5 MG IVP (15:29)
--- NOTE | 2025-01-18 15:48 | P.DS_ITS ---
DS: Providers Provider Date of admission: 01/17/25 12:01 Primary care physician: Juancarlos Gan DO Admitting clinician: JUSTIN JERONIMO Attending physician on admission: JUSTIN JERONIMO Consults: 01/17/25 Consult to Nurse Case Manager Routine Reason for consult:: Advanced Directives 01/18/25 11:21 Consult to Cardiology Routine Reason for consultation: risk assessment for potential cholecystectomy Attending physician on discharge: JUSTIN JERONIMO Discharging clinician: JUSTIN JERONIMO Anticipated date of discharge: 01/18/25 DS: Diagnosis Discharge Diagnosis (1) Preoperative clearance: (2) Choledocholithiasis: (3) Coronary artery disease: (4) S/P CABG x 4: (5) Peripheral arterial disease: (6) Essential hypertension: (7) Hyperlipidemia: (8) Sleep apnea: (9) Diabetes: (10) Colon cancer: (11) H/O hemicolectomy: (12) H/O ventral hernia repair: (13) Lumbar degenerative disc disease: DS: Summary Hospital Course Hospital Course: Rufus Yee is an 79 y/o M, h/o CABG x4 > 4 y/o, HTN, diabetes mellitus not on insulin, colon cancer status post hemicolectomy, presented to [place] emergency room 01/16/25 with nausea and vomiting, CT abdomen showed evidence of choledocholithiasis, transfer initiated to patient's preference [facility], request for medical admission. In the ER CT abdomen ordered and showed concerns for layering in the common bile duct concern for choledocholithiasis prompting transfer as above. On chart review, appears to have had concerns for choledocholithiasis on 10/27/2023 given right upper quadrant ultrasound ordered for reported LFT elevations, however abdominal MRI did not show any evidence of focal filling defect or mass. WBC 8.6, direct bilirubin 0.2, AST 21, ALT 39. LFTs trended and did not rise, antibiotics discontinued. Aspirin and clopidogrel held from admission, evaluated by cardiology, agreed with no further need for cardiac testing given echocardiogram in April 2024 showing no wall motion abnormalities, instruction for beta joselo in am of potential surgery and resumption of ASA81 and clopidogrel as soon as possible. Discharged on 01/18/25 to [facility] for further management. Time Spent with Patient Time attestation: Total time spent providing and/or coordinating discharge services: Exam Narrative Exam Narrative: Gen.: Awake, alert, in no distress Head: Normocephalic, atraumatic ENT: Moist mucous membranes Respiratory: No respiratory distress, lungs clear bilaterally Cardio: Regular rate and rhythm Gastrointestinal: Abdomen is soft, nondistended and nontender to palpation Extremities: Moves extremities equally Psych: Normal mood and affect Neuro: No focal neuro deficit Skin: Warm, dry, intact Constitutional Vital Signs, click to edit/add: Last Vital Signs Temp 98.6 F 01/18/25 11:35 Pulse 63 01/18/25 11:35 Resp 2 L 01/18/25 11:35 BP 159/77 H 01/18/25 11:35 Pulse Ox 95 01/18/25 11:35 O2 Del Method Room Air 01/18/25 11:35 DS: Data Data Completed and Pending Labs on day of discharge: Labs from last 24 hours 01/18/25 01/18/25 01/17/25 11:44 04:47 21:24 WBC 10.9 RBC 4.54 L Hgb 14.5 Hct 42.1 MCV 92.7 MCH 31.9 MCHC 34.4 RDW 14.5 Plt Count 201 MPV 9.9 Neut % (Auto) 72.5 Lymph % (Auto) 17.1 L [place] % (Auto) 8.4 Eos % (Auto) 1.5 Baso % (Auto) 0.3 Neut # (Auto) 7.9 H Lymph # (Auto) 1.9 [place] # (Auto) 0.9 H Eos # (Auto) 0.2 Baso # (Auto) 0.0 Abs Immat Gran (auto) 0.02 Imm/Tot Granulo (auto) 0.2 Sodium 140 Potassium 4.3 Chloride 104 Carbon Dioxide 26.8 Anion Gap 13.5 BUN 11.0 Creatinine 0.88 Est GFR ( Amer) >60 Est GFR (Non-Af Amer) >60 BUN/Creatinine Ratio 12.5 Glucose 125 H Calcium 9.1 Total Bilirubin 0.8 Direct Bilirubin 0.1 AST 22 ALT 30 Alkaline Phosphatase 92 Total Protein 6.1 L Albumin 3.0 L Globulin 3.1 Albumin/Globulin Ratio 1.0 POC Glucose 124 H 110 H 01/17/25 16:20 WBC RBC Hgb Hct MCV MCH MCHC RDW Plt Count MPV Neut % (Auto) Lymph % (Auto) [place] % (Auto) Eos % (Auto) Baso % (Auto) Neut # (Auto) Lymph # (Auto) [place] # (Auto) Eos # (Auto) Baso # (Auto) Abs Immat Gran (auto) Imm/Tot Granulo (auto) Sodium Potassium Chloride Carbon Dioxide Anion Gap BUN Creatinine Est GFR ( Amer) Est GFR (Non-Af Amer) BUN/Creatinine Ratio Glucose Calcium Total Bilirubin Direct Bilirubin 0.2 AST ALT Alkaline Phosphatase Total Protein Albumin Globulin Albumin/Globulin Ratio POC Glucose Discharge Plan Discharge Disposition: [facility] Condition: Fair Discharge location: [facility]
== END 2025-01-18 15:35 | disposition short-term general hospital (02) | DRG 446 ==
LOC: ER 01-17 08:52 → MS 01-17 12:04
PROVIDERS: Admitting Provider Student in an Organized Health Care Education/Training Program; Emergency Provider Emergency Medicine; PCP Internal Medicine; Visit Provider Student in an Organized Health Care Education/Training Program
DX: K80.50 Calculus of bile duct without cholangitis or cholecystitis without obstruction (principal); I16.0 Hypertensive urgency; I10 Essential (primary) hypertension; E78.00 Pure hypercholesterolemia, unspecified; M51.369 Other intervertebral disc degeneration, lumbar region without mention of lumbar back pain or lower extremity pain; I25.10 Atherosclerotic heart disease of native coronary artery without angina pectoris; K21.9 Gastro-esophageal reflux disease without esophagitis; E11.51 Type 2 diabetes mellitus with diabetic peripheral angiopathy without gangrene; H91.90 Unspecified hearing loss, unspecified ear; G47.30 Sleep apnea, unspecified; Z85.038 Personal history of other malignant neoplasm of large intestine; Z90.49 Acquired absence of other specified parts of digestive tract; Z95.5 Presence of coronary angioplasty implant and graft; Z95.1 Presence of aortocoronary bypass graft; Z96.649 Presence of unspecified artificial hip joint; Z98.62 Peripheral vascular angioplasty status; Z79.899 Other long term (current) drug therapy; Z79.52 Long term (current) use of systemic steroids; Z79.02 Long term (current) use of antithrombotics/antiplatelets
CPT/HCPCS: 36415; 74176; 76705; 80048; 80053; 80076; 81001; 82248; 82948; 83605; 83690; 84484; 85025; 93005; 96361; 96365; 96375; 99285; J2405; J2543; J2765

== ENCOUNTER 2025-04-26 07:37 | Outpatient (OUT) | payer MEDICARE, SELFPAY ==
--- NOTE | 2025-04-26 07:30 | NM_ITS ---
Patient Name: LIZZY BURK MR#: [id number] : 1945 Exam Date: 04/26/2025 Ordering Doctor: MARINO MOE CNP RADIOLOGY REPORT PROCEDURE: NM CORTNEY PERF SPECT REST STR COMPARISON: None. INDICATIONS: CORONARY ARTERY DISEASE TECHNIQUE: Exam Description: Stress/Rest one day protocol gated SPECT Rest Imagin.0 mCi Tc-99m Cardiolite IV on 04-26-2025 Stress Imaging 30.6 mCi Tc-99m Cardiolite IV on 04-26-2025 Exercise Protocol: 0.4 mg Lexiscan given IV Heart Rate (bpm): Rest: 52 Max: 63 PMHR: 45 Blood Pressure: Rest: 133/62 Max: 133/62 Symptoms: Rest and peak stress ECG findings were pending and the exercise portion of the study was pending per attending physician [facility] . For more details please see separate cardiac stress test report. FINDINGS: QUALITY OF STUDY: Good PERFUSION DEFECT: None LOCATION: SIZE: SEVERITY: TYPE: WALL MOTION: Normal LV SIZE: 79 mL. TID / TCD: 1.1 LVEF: Calculated EF 58%. SUMMARY: Myocardial perfusion imaging study CONCLUSION: -No ischemia is noted in myocardial perfusion stress study. -Normal myocardial perfusion study. -Normal global left ventricular function -No transient ischemic dilatation. -ECG Stress will be reported separately Dictated by: Laurent Kellogg MD on 04/27/2025 at 12:39 Approved by: Laurent Kellogg MD on 04/27/2025 at 12:41
--- OUTSIDE RECORDS SUMMARY | 2025-04-26 07:41 | XMS_ITS | CCD ---
Author Organization [facility] Care Team Providers Care Manager In Training Name Role Phone JUANCARLOS CUENCA Referring Unavailable JUANCARLOS CUENCA Primary Care Unavailable Delonte Webb Admitting Unavailable Delonte Webb Attending Unavailable JUANCARLOS CUENCA Referring Unavailable TY AVALOS Surgeon Unavailable TY AVALOS Admitting Unavailable JUANCARLOS CUENCA Primary Care Unavailable TY AVALOS Attending Unavailable [place] Procedure Practitioner Unavailab Juancarlos Delatorre DO Primary Care Provider Pedro Richardsonmed Unavailable [phone] Dylan VANESSA, ab Ahmed Unavailable [phone] JUANCARLOS CUENCA Primary Care Physician [phone] Juacnarlos Cuenca Unavailable Juancarlos Cuenca DO Primary Care Provider Dylan VANESSA, ab Ahmed Unavailable [phone] ADAMS ., DR EVAN Mcleod Admitting Unavailable [...] Care Unavailable HALEUGENIA ., MANAV Admitting Unavailable ZIEBPREETI, DR GABY Patel Consulting Unavailable HALKER ., MANAV Consulting Unavailable BANG, DR VEGA Attending Unavailable BANG, DR VEGA Admitting Unavailable BANG, DR VEGA Consulting Unavailable BANG, DR VEGA Primary Care Unavailable ZIEBPREETI, DR GABY Patel Consulting Unavailable BALL, DR [...] Unavailable JAYLIN II, LISA Consulting Unavailable KOMA, PETER Consulting Unavailable LAMAS ., DR EVAN Mcleod [...] Mcleod Attending Unavailable LELA HUGHES Consulting Unavailable Nya BIRD Attending Unavailable NILAndreas, Nya Patel Attending Unavailable NILAndreas, Nya Patel Attending Unavailable Nirmala James Unavailable Mauro VANESSA, Hanh Chiang Attending Unavailable Mauro VANESSA, Hanh Chiang Attending Unavailable Mauro VANESSA, Hanh Chiang Attending Unavailable Juancarlos Cuenca Admitting Unavailable Bang, Juancarlos Attending Unavailable Juancarlos Cuenca Primary Care Unavailable Ej Anthony II Attending UnavailEj Santos II Admitting UnavailJuancarlos Post Primary Care Unavailable DO Juancarlos Cuenca Primary Care Provider [phone] MD Ej Anthony II Attending Provider Juancarlos Cuenca MD Primary Care Provider Joanna Lin DO Unavailable Mary Kate Shine MD Unavailable Juancarlos Cuenca DO Primary Care Provider Dylan VANESSA, [facility] Unavailable Juancarlos Cuenca MD Primary Care Provider Juancarlos Cuenca DO Primary Care Provider Juancarlos Cuenca DO Primary Care Provider Juancarlos Cuenca DO Primary Care Provider Juancarlos Cuenca DO Attending Provider Ej Anthony MD Attending Provider [phone] Kalpesh Arteaga MD Attending Provider [phone] Caleb Mcduffie MD Attending Provider [phone] Deangelo El Attending Provider [phone] Yas Porter CMA Attending Provider Unavaila LAURA Simental Attending Unavailable KWADWO TORREZ Referring Unavailable JUANCARLOS CUENCA E Primary Care Unavailable MATTHEW DAMON Attending Unavailable DEANGELO EL Referring Unavailable JUANCARLOS CUENCA E Primary Care Unavailable JARRETT, KALPESH Z Referring Unavailable BALL, JUANCARLOS E Primary Care Unavailable JOSE MARIA LAW Admitting Unavailable NIKKOYANI Gonzalez Attending Unavailable JAY GONZALEZ Consulting Unavailable CARLOS, JAY Admitting Unavailable JAY GONZALEZ Attending Unavailable BANG, JUANCARLOS E Primary Care Unavailable Juancarlos Cuenca DO Primary Care Provider [phone] Juancarlos Cuenca DO Attending Provider [phone] Jay Gonzalez MD Attending Provider [phone] JAY GONZALEZ Attending Unavailable BALL, JUANCARLOS E Referring Unavailable BALL, JUANCARLOS E Primary Care Unavailable CARLOS, JAY Attending Unavailable CARLOS, JAY Referring Unavailable BALL, JUANCARLOS E Primary Care Unavailable CARLOS, JAY Attending Unavailable NIKKO, YANI Referring Unavailable BALL, JUANCARLOS E Primary Care Unavailable CARLOS, JAY Referring Unavailable BALL, JUANCARLOS E Primary Care Unavailable PHILLIP BINGHAM Attending Unavailable MATTHEW KEARNS Attending Unavailable MATTHEW KEARNS Attending Unavailable SOM, MATTHEW Garcia Attending Unavailable PHILLIP BINGHAM Attending Unavailable JADA WOODS Attending Unavailable PHILLIP BINGHAM Attending Unavailable PHILLIP BINGHAM Attending Unavailable JOANNA LIN Attending Unavailable PHILLIP BINGHAM Attending Unavailable SOM, MATTHEW Garcia Attending Unavailable PHILLIP BINGHAM Attending Unavailable MARINO MOE Attending Unavailable PEDRO RICHARDSON Attending Unavailable Allergies Allergy Classification Reported Allergen(s) Allergy Type Date of Onset Reaction(s) Facility (20 sources) Morphine; Translations: [morphine] Drug Allergy Unknown [facility] Repository (1 source) Morphine Drug Allergy 12-08-2023 [facility] Repository (3 sources) Cyanoacrylates; Translations: [CYANOACRYLATES] Drug Allergy 03-14-2025 Rash [facility] Medications Current Medications Medication Drug Class(es) Dates Sig (Normalized) Sig (Original) Accu-Chek Guide - (20 sources) Accu-Chek Guide - USE TO TEST HOME BLOOD SUGAR ONCE DAILY for 90 Active 8 hr acetaminophen 650 mg extended release oral tablet (2 sources) Start: 12-20-2024 take 1 tablet by mouth every eight hours Acetaminophen (Tylenol Arthritis Pain) 650 mg tablet extended release Active 650 MG PO Every 8 hours December 20, 2024 12:00am Complies with drug therapy amLODIPine 5 mg oral tablet (20 sources) Dihydropyridine Calcium Channel Joselo Start: 09-11-2023 End: 03-09-2024 take 1 tablet [...] Active ascorbic acid 500 mg oral capsule (20 sources) Vitamin C Start: 05-20-2024 Ascorbic Acid (Vitamin C) 500 mg capsule Active MG PO May 20, 2024 12:00am Complies with drug therapy Start: 04-14-2019 Vitamin C Oral , Daily, [...] MG PO Daily September 07, 2023 1:00am Complies with drug therapy aspirin 81 mg ca p Take by mouth once daily. Active Comment on above: Take by mouth once d aily. Aspirin 81 mg Tab-EC (1 source) Start: 1 take 1 tablet by mouth once daily Aspirin 81 mg Tab-EC 81 mg = 1 tab(s), Oral, Daily, Blood Thinner Start Date: 03/14/21 Status: Ordered atorvastatin 80 mg oral tablet (20 sources) HMG-CoA Reductase Inhibitor Start: 5 take 1 tablet by mouth once daily Atorvastatin 80 mg tablet Active 80 MG PO Daily December 20, 2024 12:00am Complies with drug therapy Start: 10-20-2023 End: 11-04-2023 take 1 tablet [...] Take 80 mg by mouth once daily. baclofen 10 mg oral tablet (20 sources) gamma-Aminobutyric Acid-ergic Agonist Start: 03-05-2025 take 1 tablet by mouth once daily at bedtime as needed for muscle spasms Baclofen 10 mg tablet Active 0 .ROUTE .COMPLEX 90 March 05, 2025 8:28am TAKE 1 TABLET BY MOUTH EVERYDAY AT BEDTIME NEEDED FOR MUSCLE SPASMS Complies with drug therapy Start: 09-16-2023 End: 03-05-2025 baclofen (Lioresal) 10 MG ta blet 09/28/2023 Active calcium acetate (1 source) Start: 04-14-2019 calcium acetat e Oral, TID, Refills(s) 0, Prophylaxis Start Date: 04/14/19 Status: Ordered calcium carbonate 1500 mg oral tablet (8 sources) Start: 05-20-2024 take 1 tablet by mouth once daily Calcium Carbonate 600 mg calcium (1,500 mg) tablet Active 600 MG PO Daily May 20, 2024 12:00am Complies with drug therapy cholecalciferol 0.05 mg oral capsule (20 sources) Vitamin D Start: 05-20-2024 take 1 capsule by mouth once daily Cholecalciferol (Vitamin D3) 50 mcg (2,000 unit) capsule Active 50 MCG PO Daily May 20, 2024 12:00am Complies with drug therapy CHOLECALCIFEROL, VITAMIN D3, ORAL (18 sources) CHOLECALCIFEROL, VITAMIN D3, ORAL Take by mouth once daily. Active CHOLECALCIFEROL, VITAMIN D3, ORAL Take by mouth once daily. 0 Active Comment on above: Take by mouth once d aily. clopidogrel 75 mg oral tablet (20 sources) P2Y12 Platelet Inhibitor Start: 02-17-20 take 1 tablet by mouth once daily clopidogrel (PLAVIX) 75 mg tablet Take 1 tablet by mouth once daily. HOLD UNTIL YOUR PROCEDURE WITH GASTROENTEROLOGY ON 02/24. DISCUSS WITH YOUR CONCRETE PIPE MAKER WHEN TO RESUME AFTER YOUR PROCEDURE. 90 tablet 02/16/2025 Active Start: 11-01-2024 take 1 tablet by mansoor th once daily Clopidogrel 75 mg tablet Active 0 .ROUTE .COMPLEX 90 November 01, 2024 10:00pm TAKE 1 TABLET BY MOUTH EVERY DAY FOR 90 DAYS Complies with drug therapy Start: 04-14-2019 End: 11-01-2024 take 1 tablet by mouth once daily Clopidogrel 75 mg tablet Discontinued 75 MG PO Daily September 07, 2023 1:00am January 23, 2024 3:12pm Comment on above: Take 75 mg by mouth once daily. CPAP (18 sources) CPAP daily at be dtime. Active CPAP daily at be dtime. 0 Active Comment on above: daily at bedtime. Cranberry preparation (1 source) Non-Standardized Food Allergenic Extract, Non-Standardized Plant Allergenic Extract Start: 04-14-20 cranberry Oral, Daily, Refill(s) 0, Prophylaxis Start Date: 04/14/19 Status: Ordered diclofenac sodium 0.01 mg/mg topical gel (9 sources) Nonsteroidal Anti-inflammatory Drug Start: 04-21-20 apply 2 g topically once as needed for pain Diclofenac Sodium 1 % gel Active 2 GM TOPICAL as directed as needed for knee pain 08 18April 21, 2024 12:00am up to 4x's a day Complies with drug therapy Start: 04-21-2024 apply 2 g topically once Diclo fenac Sodium Active 2 GM TOPICAL as directed 08 18April 21, 2024 12:00am up to 4x's a day docosahexaenoic acid/epa (FI SH OIL ORAL) (18 sources) docosahexaenoic acid/epa (FISH OIL ORAL) Take by mouth once daily. Active docosahexaenoic acid/epa (FISH OIL ORAL) Take by mouth once daily. 0 Active Comment on above: Take by mouth once d aily. enteric contrast (will be provided with radiology test) (1 source) Start: 3 End: take 1 dose by mouth once, [...] contrast guidelines Fish Oils (1 source) Start: 9 Fish Oil Oral, Daily, Refill(s) 0, Prophylaxis Start Date: 04/14/19 Status: Ordered glipiZIDE 5 mg oral tablet (20 sources) Sulfonylurea Start: take 2 tablets by mouth at breakfast, then take 1 tablet by mouth at dinner Glipizide 5 mg tablet Active 0 .ROUTE .COMPLEX 270 November 01, 2024 10:00pm TAKE 2 TABLETS BY MOUTH 30 MINUTES PRIOR TO BREAKFAST AND 1 TABLET 30 MINUTES PRIOR TO EVENING MEAL Complies with drug therapy Start: 10-03-2024 End: 11-01-2024 take 2 tablets [...] .QOD 45 90 November 21, 2024 11:59am Complies with drug therapy Start: 11-01-2024 End: 11-21-2024 take 1 tablet [...] sources) Angiotensin Converting Enzyme Inhibitor Start: 03-18-2024 End: 02-27-2025 take 1 tablet by mouth once daily Lisinopril 30 mg tablet Active 0 .ROUTE .COMPLEX 90 February 27, 2025 7:48am TAKE 1 TABLET BY MOUTH EVERY DAY Complies with drug therapy Start: 09-07-2023 End: 03-18-2024 take 1 tablet [...] mg by mouth o nce daily. Magnesium (18 sources) MAGNESIUM ORAL T hero by mouth once daily. Active MAGNESIUM ORAL T hero by mouth once daily. 0 Active Comment on above: Take by mouth once d aily. Magnesium Hydroxide (8 sources) Start: 05-20-2024 Magnesium Hydroxide 600 mg tablet,chewable Active MG PO May 20, 2024 12:00am Complies with drug therapy Start: 05-20-2024 Magnesium Hydr oxide 600 mg tablet,chewable Active MG PO May 20, 2024 12:00am Start: 05-20-2024 Magnesium Hydr oxide 600 mg tablet,chewable Active MG PO May 19, 2024 11:00pm MULTI-VITAMIN ORAL (18 sources) MULTI-VITAMIN OR AL Take by mouth once daily. Active MULTI-VITAMIN OR AL Take by mouth once daily. 0 Active Comment on above: Take by mouth once d aily. Multivitamin tablet (8 sources) Start: 05-20-2024 take 1 tablet by mouth once daily Multivitamin tablet Active 1 TAB PO Daily May 20, 2024 12:00am Complies with drug therapy Start: 05-20-2024 take 1 tablet by mansoor th once daily Multivitamin tablet Active 1 TAB PO Daily May 20, 2024 12:00am Start: 05-20-2024 take 1 tablet by mansoor th once daily Multivitamin tablet Active 1 TAB PO Daily May 19, 2024 11:00pm [place] 4-Byh-Dln-Fish Oil (Fish Oil) 60-90-500 mg capsule (8 sources) Start: 05-20-2024 take 1 capsule by mouth once daily [place] 5-Ylq-Zja-Fish Oil (Fish Oil) 60-90-500 mg capsule Active 1 CAP PO Daily May 20, 2024 12:00am Complies with drug therapy Start: 05-20-2024 take 1 capsule by mo uth once daily [place] 7-Sll-Xtj-Fish Oil (Fish Oil) 60-90-500 mg capsule Active 1 CAP PO Daily May 20, 2024 12:00am Start: 05-20-2024 take 1 capsule by mo uth once daily [place] 4-Jky-Nza-Fish Oil (Fish Oil) 60-90-500 mg capsule Active [...] STOMACH FOLLOWED IN 30 MINUTES BY BREAKFAST Complies with drug therapy Start: 09-07-2023 End: 01-04-2024 take 1 tablet [...] once daily. Prednisolon-Moxiflox -Bromfenac 1-0.5-0.075 % solution (16 sources) Start: 08-24-2024 Prednisolon-Moxiflo x-Bromfenac 1-0.5-0.075 % solution Indications: Age-related nuclear cataract of right eye Administer 1 drop into affected eye(s) in the morning and 1 drop at noon and 1 drop in the evening and 1 drop before bedtime. 10 mL 1 08/24/2024 Active sertraline 100 mg oral tablet (20 sources) Serotonin Reuptake Inhibitor Start: 09-02-2021 take [...] TABLET BY MANSOOR TH EVERYDAY AT BEDTIME silver sulfADIAZINE 10 mg/ml topical cream (6 sources) Sulfonamide Antibacterial Start: 11-15-19 Silver Sulfadiazine (Silvadene) 1 % cream Active 1 APPLIC TOPICAL Twice daily 85 November 14, 2024 12:00am apply a 1.5 mm thickness Complies with drug therapy Super B Complex (1 source) Start: 04-14-20 Super B Complex Oral, Daily, Refill(s) 0, Prophylaxis Start Date: 04/14/19 Status: Ordered traMADol hydrochloride 50 mg oral tablet (20 sources) Opioid Agonist Start: 09-16-19 End: 12-17-19 take 1 tablet by mouth at bedtime traMADol (ULTRAM) 50 mg tablet take 1 tablet by mouth at bedtime for 30 days 11/21/2024 Active triamcinolone acetonide 0.001 mg/mg topical ointment (20 sources) Corticosteroid triamcinolone (Kenalog) 0.1 % ointment Apply topically 2 (two) times a day Active Vitamin B Complex (18 sources) vitamin B comple x (B COMPLEX 1 ORAL) Take by mouth once daily. Active vitamin B comple x (B COMPLEX 1 ORAL) Take by mouth once daily. 0 Active Comment on above: Take by mouth once d aily. Vitamin B Complex tablet (8 sources) Start: 05-20-2024 take 1 tablet by mouth once daily Vitamin B Complex tablet Active 1 TAB PO Daily May 20, 2024 12:00am Complies with drug therapy Start: 05-20-2024 take 1 tablet by mouth [...] Prophylaxis Start Date: 04/14/19 Status: Ordered Zinc (19 sources) Start: 04-14-2019 Zinc Oral, Nathalie ly, Refills(s) 0, Prophylaxis Start Date: 04/14/19 Status: Ordered ZINC ORAL Take b y mouth once daily. Active ZINC ORAL Take b y mouth once daily. 0 Active Comment on above: Take by mouth once d aily. zinc gluconate 30 mg oral tablet (8 sources) Start: 05-20-2024 take 1 tablet by mouth once daily Zinc Gluconate 30 mg tablet Active 30 MG PO Daily May 20, 2024 12:00am Complies with drug therapy Completed/Discontinued Medications Medication Drug Class(es) Dates Sig (Normalized) Sig (Original) carvedilol 12.5 mg oral tablet (20 sources) alpha-Adrenergic Joselo, beta-Adrenergic Joselo Start: 01-25-2025 End: 01-26-2025 take 1 tablet by mouth twice daily Carvedilol 12.5 mg tablet Discontinued 12.5 MG PO Twice daily 60 January 25, 2025 9:48pm January 26, 2025 1:00pm Start: 05-20-2024 End: 01-25-2025 take 1 tablet by mouth twice daily Carvedilol 6.25 mg tablet Active 6.25 MG PO Twice daily 60 January 26, 2025 12:59pm Complies with drug therapy Start: 10-12-2023 End: 12-16-2024 Carvedilol 12.5 mg tablet Discontinued 12.5 MG .ROUTE .COMPLEX May 20, 2024 10:56am December 16, 2024 11:06am 12.5 mg ; Start: 09-07-2023 End: 10-12-2023 take 1 tablet by mouth twice daily Carvedilol 12.5 mg tablet Discontinued 12.5 MG PO Twice daily September 07, 2023 1:00am October 12, 2023 5:18pm Start: 10-01-2021 End: 02-24-2025 take 1 tablet enteral route every twelve hours carvedilol (COREG) 12.5 mg tablet 1 tablet by ORAL/FEEDING TUBE route q 12 HR. 60 tablet 10/01/2021 02/24/2025 Discontinued Start: 10-01-2021 End: 10-31-2021 take 1 tablet [...] once daily. cephalexin 500 mg oral capsule (16 sources) Cephalosporin Antibacterial Start: 11-15-19 End: 12-17-19 take 1 capsule by mouth twice daily Cephalexin 500 mg capsule Discontinued 500 MG PO Twice daily 42 November 21, 2024 12:05pm December 16, 2024 11:01am empagliflozin 10 mg oral tablet (9 sources) Sodium-Glucose Cotransporter 2 Inhibitor Start: 10-29-19 End: 01-27-20 take 1 tablet by mouth once daily in the morning Empagliflozin (Jardiance) 10 mg tablet Discontinued 10 MG PO Every morning October 28, 2024 12:00am January 26, 2025 1:01pm Start: 05-06-2023 take 1 tablet by mansoor th every twenty-four hours Jardiance 10 MG 1 tablet Orally Once a day for 30 days Apr, Active escitalopram 5 mg oral tablet (19 sources) Serotonin Reuptake Inhibitor Start: 03-31-2024 End: 04-22-2024 take 1 tablet by mouth once daily [...] to dissolve Orally Once a day Active tamsulosin hydrochloride 0.4 mg oral capsule (20 sources) alpha-Adrenergic Joselo Start: 10-01-2021 End: 03-14-2025 take 1 capsule by mouth once daily tamsulosin (FLOMAX) 0.4 mg Take 1 capsule by mouth once daily. 30 capsule 10/01/2021 03/14/2025 Discontinued Comment on above: Take 1 capsule by mo uth once daily. Problems Active Problems Problem Classification Problem Date Documented Date Episodic/Chronic Abdominal hernia (5 sources) Ventral incisional hernia; Translations: [Incisional hernia without obstruction or gangrene] Episodic Acute posthemorrhagic anemia (20 sources) Acute posthemorrhagic anemia; Translations: [Acute posthemorrhagic anemia] Onset: 02-22-2022 Episodic Anxiety disorders (20 sources) Anxiety; Translations: [Generalized anxiety disorder] 03-11-2021 Chronic Biliary tract disease (10 sources) Cholangiectasis; Translations: [Other specified diseases of biliary tract] 10-19-2023 Chronic Biliary tract disease (20 sources) Disorder of gallbladder; Translations: [Other specified diseases of gallbladder] Onset: 01-18-2025 Resolved: 02-16-2025 01-25-2025 Episodic Oliveira (15 sources) Partial thickness burn of skin of finger; Translations: [Burn of second degree of multiple left fingers (nail), not including thumb, initial encounter] 11-14-2024 Episodic Cataract (20 sources) Age-related nuclear cataract of right eye; Translations: [Age-related nuclear cataract, right eye] Onset: 08-24-2024 Resolved: 09-27-2024 08-24-2024 Chronic Chronic kidney disease (5 sources) Chronic kidney disease; Translations: [Chronic kidney disease, unspecified] 11-21-2024 Chronic Conditions associated with dizziness or vertigo (20 sources) Benign paroxysmal positional vertigo; Translations: [Benign paroxysmal vertigo, bilateral] 03-13-2021 Episodic Coronary atherosclerosis and other heart disease (20 sources) Coronary arteriosclerosis; Translations: [Atherosclerotic heart disease of [place] coronary artery without angina pectoris] Onset: 09-13-2021 09-13-2021 Chronic Comment on above: Echo: LVEF 70%, JOAN, normal RV size/function, RVSP 04/2024 Coronary atherosclerosis and other heart disease (6 sources) Stented coronary artery; Translations: [Presence of coronary angioplasty implant and graft] Onset: 01-16-2025 02-10-2025 Episodic Diabetes mellitus with complications (20 sources) Hyperglycemia due to type 2 diabetes mellitus; Translations: [Type 2 diabetes mellitus with hyperglycemia] Onset: 09-17-2022 Chronic Comment on above: JAMIR: right 1.06, lef t 1.67 / TBI: right 0.63, left 0.52 - 12/2024 Diabetes mellitus without complication (20 sources) Type 2 diabetes mellitus; Translations: [Type 2 diabetes mellitus without complications] Onset: 03-18-2022 09-13-2021 Chronic Disorders of lipid metabolism (20 sources) Hyperlipidemia; Translations: [Hyperlipidemia, unspecified] Onset: 09-17-2022 09-13-2021 Chronic Esophageal disorders (20 sources) Gastro-esophageal reflux disease with esophagitis; Translations: [Gastroesophageal reflux disease with esophagitis without hemorrhage] Onset: 02-10-2025 03-11-2021 Chronic Essential hypertension (20 sources) Hypertensive [...] that caused by tuberculosis or sexually transmitteddisease) (5 sources) Blepharitis of upper and lower eyelids of bilateral eyes; Translations: [Unspecified blepharitis right eye, upper and lower eyelids] Onset: 01-06-2025 01-06-2025 Episodic Mycoses (12 sources) Pain in toe; Translations: [Tinea unguium] 05-29-2024 Episodic Occlusion or stenosis of precerebral arteries (20 sources) Left carotid artery stenosis; Translations: [Occlusion and stenosis of left carotid artery] Onset: 05-19-2022 Chronic Osteoarthritis (20 sources) Osteoarthritis of knee; Translations: [Bilateral primary osteoarthritis of knee] Onset: 06-18-2022 Chronic Osteoporosis (1 source) Age-related osteoporosis without current pathological fracture; Translations: [AGE-REL OSTEOPOR W/O CURR PATH FX] Onset: 11-15-2022 Chronic Other aftercare (17 sources) 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; Translations: [shelter (current) use of antithrombotics/antip latelets] 09-13-2021 Episodic Comment on above: PSA: 0.27 - 09/2023 Other aftercare (9 sources) Long-term current use of drug therapy; Translations: [joint terminal attack controller (current) use of antithrombotics/antip latelets] 09-13-2021 Episodic [...] Benign neoplasm of colon, unspecified Episodic Other diseases of veins and lymphatics (7 sources) Lymphedema of left lower limb; Translations: [Lymphedema, not elsewhere classified] 11-17-2024 Chronic Other diseases of veins and lymphatics (4 sources) Lymphedema, not elsewhere classified; Translations: [Other lymphedema] 11-17-2024 Chronic Other diseases of veins and lymphatics (4 sources) Venous insufficiency of leg; Translations: [Venous insufficiency (chronic) (peripheral)] 11-21-2024 Episodic Other diseases of veins and lymphatics (1 source) Venous insufficiency (chronic) (peripheral); Translations: [Venous (peripheral) insufficiency, unspecified] 11-21-2024 Episodic Other eye disorders (5 sources) Dry eyes; Translations: [Dry eye syndrome of bilateral lacrimal glands] Onset: 01-06-2025 01-06-2025 Episodic Other liver diseases (10 sources) Elevated liver enzymes level; Translations: [Abnormal levels of other serum enzymes] 10-19-2023 Episodic Other lower respiratory disease (2 sources) Snoring; Translations: [Snoring] 06-07-2024 Episodic Other nervous system disorders (1 source) Other chronic pain; Translations: [OTHER CHRONIC PAIN] Onset: 11-05-2022 Chronic Other nervous system disorders (4 sources) Bilateral carpal tunnel syndrome; Translations: [Carpal tunnel syndrome, bilateral upper limbs] 06-07-2024 Chronic Other nervous system disorders (4 sources) Ulnar neuropathy; Translations: [Lesion of ulnar nerve, unspecified upper limb] 06-07-2024 Chronic Other nervous system disorders (20 sources) Paresthesia; Translations: [Paresthesia of skin] 06-07-2024 Episodic Other nervous system disorders (1 source) Other acute postprocedural pain; Translations: [Post-op pain] Onset: 02-15-2025 Episodic Other non-traumatic joint disorders (4 sources) Pain in left hip; Translations: [PAIN IN LEFT HIP] Onset: 11-28-2022 Episodic Other non-traumatic joint disorders (17 sources) Pain in left knee; Translations: [Left knee pain] Onset: 03-30-2022 Episodic Other nutritional; endocrine; and metabolic disorders (20 sources) Body mass index 30+ - obesity; Translations: [Obesity, unspecified] 09-13-2021 Chronic Other nutritional; endocrine; and metabolic disorders (18 sources) Obese class II; Translations: [Obesity, unspecified] Onset: 09-25-2021 09-30-2021 Chronic Other nutritional; endocrine; and metabolic disorders (20 sources) Morbid obesity; Translations: [Morbid (severe) obesity due to excess calories] Onset: 10-15-2023 03-13-2021 Chronic Other nutritional; endocrine; and metabolic disorders (16 sources) Severe obesity; Translations: [Morbid (severe) obesity due to excess calories] Chronic Other nutritional; endocrine; and metabolic disorders (3 sources) Morbid (severe) obesity due to excess calories; Translations: [Morbid obesity (HCC)] Onset: 10-15-2023 Chronic Other nutritional; endocrine; and metabolic disorders (2 sources) Body mass index (BMI) 39.0-39.9, adult Chronic Other nutritional; endocrine; and metabolic disorders (2 sources) Obesity caused by energy imbalance; Translations: [Morbid (severe) obesity due to excess calories] 09-07-2023 Chronic Other nutritional; endocrine; and metabolic disorders (10 sources) Obesity; Translations: [Obesity, unspecified] 10-01-2023 Chronic Other nutritional; endocrine; and metabolic disorders (2 sources) Obesity, unspecified; Translations: [Obesity, unspecified] 11-04-2023 Chronic Other skin disorders (20 sources) Vesicular eczema of hands and/or feet; Translations: [Dyshidrosis [pompholyx]] Episodic Other skin disorders (10 sources) Asteatosis cutis; Translations: [Xerosis cutis] 05-29-2024 Episodic Peripheral and visceral atherosclerosis (20 sources) Atherosclerosis of [place] arteries of extremities with rest pain, right leg; Translations: [Peripheral vascular disease, unspecified] Onset: 01-18-2025 Chronic Rehabilitation care; fitting of prostheses; and adjustment of devices (3 sources) 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; Translations: [Encounter for fitting and adjustment of other specified devices] Onset: 02-24-2025 01-24-2025 Chronic Residual codes; unclassified (20 sources) Sleep apnea; Translations: [Sleep apnea, unspecified] 09-13-2021 Chronic Residual codes; unclassified (20 sources) Obstructive sleep apnea syndrome; Translations: [Obstructive sleep apnea (adult) (pediatric)] 09-07-2023 Chronic Residual codes; unclassified (14 sources) Obstructive sleep apnea (adult) (pediatric); Translations: [Obstructive sleep apnea (adult)(pediatric)] Chronic Residual codes; unclassified (1 source) Sleep apnea, unspecified; Translations: [Sleep apnea, unspecified type] Onset: 01-18-2025 Chronic Residual codes; unclassified (20 sources) History of colectomy; Translations: [Acquired absence of other specified parts of digestive tract] Episodic Residual codes; unclassified (2 sources) Not getting enough sleep; Translations: [Insomnia, unspecified] 06-07-2024 Episodic Residual codes; unclassified (1 source) History of hernia repair; Translations: [Other specified postprocedural states] 10-20-2024 Episodic Residual codes; unclassified (8 sources) History of partial resection of colon; Translations: [Acquired absence of other specified parts of digestive tract] Onset: 01-18-2025 01-18-2025 Episodic Residual codes; unclassified (1 source) Acquired absence of other specified parts of digestive tract; Translations: [History of partial colectomy] Onset: 01-18-2025 Episodic Retinal detachments; defects; vascular occlusion; and retinopathy (5 sources) Epiretinal membrane of left eye; Translations: [Puckering of macula, left eye] Onset: 01-06-2025 01-06-2025 Chronic Screening and history of mental health and substance abuse codes (1 source) Ex-smoker 04-14-2019 Episodic Spondylosis; intervertebral disc disorders; other back problems (20 sources) Lumbar spondylosis; Translations: [Lumbosacral spondylosis with radiculopathy] Onset: 03-12-2022 03-11-2021 Chronic Spondylosis; intervertebral disc disorders; other back problems (8 sources) Spinal stenosis; Translations: [Spinal stenosis, site [...] [CONTACT W/AND (SUSP) EXPOS COVID-19] Onset: 07-03-2022 Unclassified (1 source) Post Op Onset: 03-14-2025 Past or Other Problems Problem Classification Problem Date Documented Date Episodic/Chronic Esophageal disorders (10 sources) Esophageal disorders; Translations: [Gastroesophageal reflux disease with esophagitis without hemorrhage] Other aftercare (3 sources) Other middle or intermediate school principal (current) drug therapy; Translations: [OTH JAIL CURRENT DRUG THERAPY] Onset: 3 Episodic Other and unspecified benign neoplasm (20 sources) Polyp of colon; Translations: [Polyp of colon] Onset: 1 06-07-2021 Episodic Other and unspecified benign neoplasm (20 sources) Familial multiple polyposis syndrome; Translations: [Familial multiple polyposis syndrome] Onset: 2 Resolved: 2 09-07-2023 Episodic Comment on above: s/p hemicolectomyCon tinue surveillance colonoscopy, last scope 2022 (repeat 3 years) Other connective tissue disease (2 sources) Pain of toes of bilateral feet; Translations: [Pain in right toe(s)] 03-20-2024 Episodic Other screening for suspected conditions (not mental disorders or infectious disease) (20 sources) Imaging of biliary tract abnormal; Translations: [Prerenal azotemia] Onset: 4 03-14-2021 Episodic Unclassified (1 source) LOW BACK PAIN, UNSPECIFIED; Translations: [LOW BACK PAIN, UNSPECIFIED] Onset: 2 Unclassified (2 sources) 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 01-30-2025 Results Test Name Value Interpretation Reference Range Facility OV 03-14-2025 CNOV Office Visit ([facility] ) LIZZY YEE ([id number]) 1945 M T Date Time Provider Department 03/14/25 3:00 PM JAY GONZALEZ [facility] During your visit today, we recorded the following information about you: Temperature Pulse Blood pressure 96.9 degrees 60/minute 125/76 Jay Gonzalez MD 03/14/2025 4:01 PM Signed [facility] - Follow Up Visit Assessment/Plan: Lizzy Yee is an 79 year old male s/p laparoscopic cholecystectomy with intraoperative cholangiogram on 02/15/2025 for choledocholithiasis and chronic cholecystitis. He presents today, 27 days postoperatively and is doing well. His pain has resolved, he is having no issues with PO intake, his wounds are healing well, and he is recovering appropriately. The patient's pathology demonstrated chronic cholecystitis- this was reviewed with the patient. - Follow up as needed Subjective: Feeling well. No pain at this point - just occasional discomfort around his epigastric lap site. Had a skin glue reaction and had to peel this off. No issues with PO intake or bowel function. Had his CBD stent removed. Still feeling a little fatigued. Objective: AAOx3, NAD Non-labored respirations on RA Abdomen soft, non-distended, and mildly tender around the patient's lap sites. Still a little irritation around his midclavicular lap site. No erythema or induration. Jay Gonzalez MD 03/14/25, 2:55 PM General Surgery [facility] Referring Provider: JUANCARLOS CUENCA [[id number]] Allergies As of Date: 03/14/2025 Noted Allergy Reaction CYANOACRYLATES 03/14/2025 2 - Rash Comments: Skin reaction to Dermabond used on 02/15/25. Date Reviewed: 03/14/2025 Reviewed by: Destiny Zapata OCCA - Fully Assessed Reason for Visit: Post Op [174] Primary Visit Diagnosis:S/P laparoscopic cholecystectomy [Z90.49] Prescriptions as of 03/14/2025 - clopidogrel (PLAVIX) 75 mg tablet Take 1 tablet by mouth once daily. HOLD UNTIL YOUR PROCEDURE WITH GASTROENTEROLOGY ON 02/24. DISCUSS WITH YOUR CONCRETE PIPE MAKER WHEN TO RESUME AFTER YOUR PROCEDURE. - baclofen 10 mg tablet TAKE 1 TABLET BY MOUTH EVERYDAY AT BEDTIME NEEDED FOR MUSCLE SPASMS - amLODIPine (NORVASC) 5 mg tablet Take 1 tablet by mouth once daily. - traMADol (ULTRAM) 50 mg tablet take 1 tablet by mouth at bedtime for 30 days - lisinopril (ZESTRIL) 30 mg tablet 30 mg. - carvedilol (COREG) 6.25 mg tablet TAKE 1 TABLET BY MOUTH WITH BREAKFAST AND EVENING MEAL - loratadine (CLARITIN) 10 mg tablet Take [...] TABLET BY MOUTH EVERYDAY AT BEDTIME - pantoprazole DR (PROTONIX) 40 mg tablet Take 40 mg by mouth once daily. - hydroCHLOROthiazide (HYDRODIURIL, ESIDRIX) 25 mg tablet Take 25 mg by mouth once daily. - atorvastatin (LIPITOR) 80 mg tablet Take 80 mg by mouth once daily. - aspirin 81 mg cap Take by mouth once daily. Problem List As Of Date 03/14/2025 Noted Resolved Polyp of colon [K63.5] 06/07/2021 ASHD (arteriosclerotic heart disease) [I25.10] Sleep apnea [G47.30] HTN (hypertension) [I10] HLD (hyperlipidemia) [E78.5] Type 2 diabetes mellitus, without long-term cur* Antiplatelet or antithrombotic long-term use [Z* Obesity (BMI 30-39.9) [E66.9] Polyposis coli [D13.91] 09/24/2021 09/30/2021 Obesity, Class II, BMI 35-39.9 [E66.812] 09/25/2021 Morbid obesity (HCC) [E66.01] 10/15/2023 Choledocholithiasis [K80.50] 01/18/2025 S/P CABG x 4 [Z95.1] 01/18/2025 PAD (peripheral artery disease) [I73.9] 01/18/2025 History of partial colectomy [Z90.49] 01/18/2025 GERD (gastroesophageal reflux disease) [K21.9] 02/10/2025 Carotid stenosis [I65.29] 02/10/2025 Presence of stent in coronary artery [Z95.5] 01/16/2025 Cholecystitis [K81.9] 02/15/2025 02/16/2025 Medications Discontinued During This Encounter Prescriptions - tamsulosin (FLOMAX) 0.4 mg (Discontinued) Take 1 capsule by mouth once daily. Encounter Status:Closed by JAY GONZALEZ on 03/14/25 [facility] LIZZ[facility]EE ([id number]) 1945 M [facility] Date Time Provider Department 03/01/25 JAY GONZALEZ During your visit today, we recorded the following information about you: Magdalena Marques RN 03/01/2025 10:12 AM Signed Called patient for an update on incisions. Patient reports redness has subsided. No drainage noted from any incisions. Follow up appointment scheduled on 03/[address] Gonzalez. Allergies As of Date: 03/01/2025 (No Known Allergies) Date Reviewed: 02/24/2025 Reviewed by: Tram Zamudio RN - Fully Assessed Reason for Visit: Patient Update [9714] Air Twist Operator - Other [3602] Returning Patient's Call [408] Prescriptions as of 03/01/2025 - clopidogrel (PLAVIX) 75 mg tablet Take 1 tablet by mouth once daily. HOLD UNTIL YOUR PROCEDURE WITH GASTROENTEROLOGY ON 02/24. DISCUSS WITH YOUR CONCRETE PIPE MAKER WHEN TO RESUME AFTER YOUR PROCEDURE. - baclofen 10 mg tablet TAKE 1 TABLET BY MOUTH EVERYDAY AT BEDTIME NEEDED FOR MUSCLE SPASMS - amLODIPine (NORVASC) 5 mg tablet Take 1 tablet by mouth once daily. - traMADol (ULTRAM) 50 mg tablet take 1 tablet by mouth at bedtime for 30 days - lisinopril (ZESTRIL) 30 mg tablet 30 mg. - carvedilol (COREG) 6.25 mg tablet TAKE 1 TABLET BY MOUTH WITH BREAKFAST AND EVENING MEAL - tamsulosin (FLOMAX) 0.4 mg Take 1 [...] TABLET BY MOUTH EVERYDAY AT BEDTIME - pantoprazole DR (PROTONIX) 40 mg tablet Take 40 mg by mouth once daily. - hydroCHLOROthiazide (HYDRODIURIL, ESIDRIX) 25 mg tablet Take 25 mg by mouth once daily. - atorvastatin (LIPITOR) 80 mg tablet Take 80 mg by mouth once daily. - aspirin 81 mg cap Take by mouth once daily. Problem List As Of Date 03/01/2025 Noted Resolved Polyp of colon [K63.5] 06/07/2021 ASHD (arteriosclerotic heart disease) [I25.10] Sleep apnea [G47.30] HTN (hypertension) [I10] HLD (hyperlipidemia) [E78.5] Type 2 diabetes mellitus, without long-term cur* Antiplatelet or antithrombotic long-term use [Z* Obesity (BMI 30-39.9) [E66.9] Polyposis coli [D13.91] 09/24/2021 09/30/2021 Obesity, Class II, BMI 35-39.9 [E66.812] 09/25/2021 Morbid obesity (HCC) [E66.01] 10/15/2023 Choledocholithiasis [K80.50] 01/18/2025 S/P CABG x 4 [Z95.1] 01/18/2025 PAD (peripheral artery disease) [I73.9] 01/18/2025 History of partial colectomy [Z90.49] 01/18/2025 GERD (gastroesophageal reflux disease) [K21.9] 02/10/2025 Carotid stenosis [I65.29] 02/10/2025 Presence of stent in coronary artery [Z95.5] 01/16/2025 Cholecystitis [K81.9] 02/15/2025 02/16/2025 Encounter Status:Closed by MAGDALENA MARQUES on 03/01/25 [facility] ANES POSTPROC EVALon 025 ANES POSTPROC EVAL HNO ID: [id number] Author: CRYSTAL HUYNH DO Service: Anesthesiology Author Type: Physician Type: Anesthesia Postprocedure Evaluation Filed: 02/24/2025 13:49 Note Text: POST ANESTHESIA EVALUATION NOTE : 1945 Procedure Summary Date: 02/24/25 Room / Location: [facility] Endoscopy - ENDO Anesthesia Start: 1243 Anesthesia Stop: 1314 Procedure: ERCP Diagnosis: Encounter for removal of biliary stent Scheduled Providers: Deangelo El MD; Matthew Damon APRN.COLUMNIST Responsible Provider: Crystal Huynh DO Anesthesia Type: MAC ASA Status: 3 Anesthesia Type: MAC Last Vitals Vitals Value Taken Time BP 141/88 02/24/25 1345 Temp 36 ?C (96.8 ?F) 02/24/25 1314 Pulse 60 02/24/25 1345 Resp 20 02/24/25 1345 SpO2 99 % 02/24/25 1345 Vitals shown include unfiled device data. Post Anesthesia Patient Status Patient Evaluation: PACU. PACU/ICU Patient Condition: stable. Anticipated Disposition: phase 2 then home. Neurological Status: aware and responsive. Pulmonary Status: breathing comfortably on room air Airway Control: returned to baseline unsupported. Cardiovascular Status: stable. Pain Management: clinically adequate Postoperative Hydration: acceptable. Intraoperative Events: no significant anesthesia events Post Operative Nausea/Vomiting Status: no significant post operative nausea or vomiting Recommendation: continue current plan of care. Anesthesia Observations No Documentation SIGNATURE: Crystal Huynh DO PATIENT NAME: Lizzy Yee DATE: February 24, 2025 TIME: 1:49 PM CSN: [id number] Normal [facility] ANES PRE-OPon 02-24-2025 ANES PRE-OP HNO ID: [id number] Author: CRYSTAL HUYNH DO Service: Anesthesiology Author Type: Physician Type: Anesthesia Preprocedure Evaluation Filed: 02/24/2025 12:29 Note Text: ANESTHESIOLOGY DAY OF SURGERY NOTE : 1945 Procedure Information Date/Time: 02/24/25 1300 Scheduled providers: Deangelo El MD; Matthew Damon APRN.COLUMNIST Procedure: ERCP Location: [facility] Endoscopy - ENDO Estimated body mass index is 35 kg/m? as calculated from the following: Height as of 02/15/25: 165.1 cm (5' 5 ). Weight as of 02/15/25: 95.4 kg (210 lb 5.1 oz). Most recent hematocrit and potassium results: Hematocrit 40.2 02/16/2025 Potassium 4.7 02/16/2025 Relevant Problems ANESTHESIA (+) Sleep apnea CARDIO (+) ASHD (arteriosclerotic heart disease) (+) Carotid stenosis (+) HTN (hypertension) (+) PAD (peripheral artery disease) (+) Presence of stent in coronary artery (+) S/P CABG x 4 ENDO (+) Type 2 diabetes mellitus, without long-term current use of insulin (HCC) GI (+) GERD (gastroesophageal reflux disease) PULMONARY (+) Sleep apnea I - PHYSICAL EVALUATION AIRWAY Patient intubated: No. Tracheostomy tube not present Mallampati: II. TM distance: >3 FB. Neck ROM: limited extension. Mouth opening: adequate. Short neck: no. Thick neck: yes Good present: no Lip Bite Test: I DENTAL Dental findings: missing tooth/teeth. II - ANESTHESIA PLAN ASA Score: 3 Anesthetic Plan: MAC The patient is not a current smoker. NPO Status: adequate Beta Joselo Monitoring Plan Monitoring plan: standard ASA. Post Procedure Analgesic Plan Postoperative analgesic plan: multimodal analgesia. Informed Consent Anesthetic risks, benefits, alternatives, personnel and consent discussed: yes. Patient / Responsible Democrat agrees to proceed: yes Patient / Surrogate agrees to blood products: blood products not planned Vitals Value Taken Time BP 129/76 02/24/25 1144 Pulse 61 02/24/25 1144 Resp 22 02/24/25 1144 Temp 36.3 ?C (97.3 ?F) 02/24/25 1144 SpO2 100 % 02/24/25 1144 Outpatient Medications as of 02/24/2025 Medication Sig amLODIPine (NORVASC) 5 mg tablet Take 1 tablet by mouth once daily. traMADol (ULTRAM) 50 mg tablet take 1 tablet by mouth at bedtime for 30 days lisinopril (ZESTRIL) 30 mg tablet 30 mg. carvedilol (COREG) 6.25 mg tablet TAKE 1 TABLET BY MOUTH WITH BREAKFAST AND EVENING MEAL MULTI-VITAMIN ORAL Take by mouth once daily. ZINC ORAL Take by mouth once daily. vitamin B complex (B COMPLEX 1 ORAL) Take by mouth once daily. docosahexaenoic acid/epa (FISH OIL ORAL) Take by mouth once daily. CHOLECALCIFEROL, VITAMIN D3, ORAL Take by mouth once daily. MAGNESIUM ORAL Take by mouth once daily. CPAP daily at bedtime. glipiZIDE (GLUCOTROL) 5 mg tablet once daily. pantoprazole DR (PROTONIX) 40 mg tablet Take 40 mg by mouth once daily. hydroCHLOROthiazide (HYDRODIURIL, ESIDRIX) 25 mg tablet Take 25 mg by mouth once daily. clopidogrel (PLAVIX) 75 mg tablet Take 1 tablet by mouth once daily. HOLD UNTIL YOUR PROCEDURE WITH GASTROENTEROLOGY ON 02/24. DISCUSS WITH YOUR CONCRETE PIPE MAKER WHEN TO RESUME AFTER YOUR PROCEDURE. baclofen 10 mg tablet TAKE 1 TABLET BY MOUTH EVERYDAY AT BEDTIME NEEDED FOR MUSCLE SPASMS carvedilol (COREG) 12.5 mg tablet 1 tablet by ORAL/FEEDING TUBE route q 12 HR. (Patient taking differently: Take 12.5 mg by mouth q 12 HR. 1/2 tab twice a day ) tamsulosin (FLOMAX) 0.4 mg Take 1 capsule by mouth once daily. loratadine (CLARITIN) 10 mg tablet Take 10 mg by mouth. ascorbic acid (VITAMIN C ORAL) Take by mouth once daily. sertraline (ZOLOFT) 100 mg tablet TAKE 1 TABLET BY MOUTH EVERYDAY AT BEDTIME (Patient not taking: Reported on 02/10/2025) atorvastatin (LIPITOR) 80 mg tablet Take 80 mg by mouth once daily. aspirin 81 mg cap Take by mouth once daily. No current facility-administered medications on file as of 02/24/2025. I have interviewed and examined the patient. I have reviewed the medical record and/or the pre-anesthesia evaluation, pertinent labs, and test results. This contains updated information obtained within 48 hours of Surgery/Procedure. SIGNATURE: Crystal Huynh DO PATIENT NAME: Lizzy Yee DATE: February 24, 2025 TIME: 12:28 PM CSN: [id number] [facility] 02-24-2025 [facility] Telephone ([facility]) LIZZY YEE ([id number]) 1945 M [facility] Date Time Provider Department 02/24/25 JAY GONZALEZ [facility] During your visit today, we recorded the following information about you: Mylene Gardner 02/24/2025 2:09 PM Signed Received a call regarding post operative 02/15 laparoscopic cholecystectomy and concerns of possible incisional infection return call to patient at [phone] Soy Haynes 02/24/2025 2:23 PM Signed Phoned patient to see how he was doing after surgery. S/p: Lx Cholecystectomy 02/15/2025 No answer. Left VM with callback number to my work cell. Soy Haynes APPLICATION DEVELOPMENT PROJECT MANAGER Air Twist Operator for Dr. Kaye, Dr. Burris, and TROY Bush Christopher A 02/24/2025 3:13 PM Signed Pt arrived at [facility] and was evaluated by staff there. Probably reaction to surgical glue per staff at [facility]. Soy Haynes RN BSN Air Twist Operator for Dr. Kaye, Dr. Burris, and TROY uBsh Brenna, RN 02/24/2025 4:07 PM Signed Patient showed up to [facility] office for possible surgical infection, was sent from [place] after stent removal. S/p 02/[address] Gonzalez Picture below. Advised with Dr. Kingsley that this was reaction to the surgical glue. Assisted patient in removing some of the glue. Top right spot still had glue when patient left, he will apply the Petroleum Jelly, warm compress at home and remove. Also to wash the abdomen with soap and water to help remove any other residue from adhesive used during surgery that could be causing any other skin reactions. Other three incisions glue was removed and covered with dry dressing. Other than the reaction, patient states he is feeling great after surgery, minimal pain, no issues with food or nausea. Instructions provided to patient how to remove the remaining glue, also to take some Benadryl to help with the reaction. Patient is understanding and will call our office over the weekend if any issues arise. Allergies As of Date: 02/24/2025 (No Known Allergies) Date Reviewed: 02/24/2025 Reviewed by: Tram Zamudio, NILAM - Fully Assessed Reason for Visit: Post Op [174] Prescriptions as of 02/24/2025 - clopidogrel (PLAVIX) 75 mg tablet Take 1 tablet by mouth once daily. HOLD UNTIL YOUR PROCEDURE WITH GASTROENTEROLOGY ON 02/24. DISCUSS WITH YOUR CONCRETE PIPE MAKER WHEN TO RESUME AFTER YOUR PROCEDURE. - baclofen 10 mg tablet TAKE 1 TABLET BY MOUTH EVERYDAY AT BEDTIME NEEDED FOR MUSCLE SPASMS - amLODIPine (NORVASC) 5 mg tablet Take 1 tablet by mouth once daily. - traMADol (ULTRAM) 50 mg tablet take 1 tablet by mouth at bedtime for 30 days - lisinopril (ZESTRIL) 30 mg tablet 30 mg. - carvedilol (COREG) 6.25 mg tablet TAKE 1 TABLET BY MOUTH WITH BREAKFAST AND EVENING MEAL - tamsulosin (FLOMAX) 0.4 mg Take 1 [...] TABLET BY MOUTH EVERYDAY AT BEDTIME - pantoprazole DR (PROTONIX) 40 mg tablet Take 40 mg by mouth once daily. - hydroCHLOROthiazide (HYDRODIURIL, ESIDRIX) 25 mg tablet Take 25 mg by mouth once daily. - atorvastatin (LIPITOR) 80 mg tablet Take 80 mg by mouth once daily. - aspirin 81 mg cap Take by mouth once daily. Facility-Administered Medications as of 02/24/2025 - lactated ringers iv infusion - ondansetron 4 mg tab(s) (ZOFRAN) - ondansetron (PF) 4 mg injection (ZOFRAN) Problem List As Of Date 02/24/2025 Noted Resolved Polyp of colon [K63.5] 06/07/2021 ASHD (arteriosclerotic heart disease) [I25.10] Sleep apnea [G47.30] HTN (hypertension) [I10] HLD (hyperlipidemia) [E78.5] Type 2 diabetes mellitus, without long-term cur* Antiplatelet or antithrombotic long-term use [Z* Obesity (BMI 30-39.9) [E66.9] Polyposis coli [D13.91] 09/24/2021 09/30/2021 Obesity, Class II, BMI 35-39.9 [E66.812] 09/25/2021 Morbid obesity (HCC) [E66.01] 10/15/2023 Choledocholithiasis [K80.50] 01/18/2025 S/P CABG x 4 [Z95.1] 01/18/2025 PAD (peripheral artery disease) [I73.9] 01/18/2025 History of partial colectomy [Z90.49] 01/18/2025 GERD (gastroesophageal reflux disease) [K21.9] 02/10/2025 Carotid stenosis [I65.29] 02/10/2025 Presence of stent in coronary artery [Z95.5] 01/16/2025 Cholecystitis [K81.9] 02/15/2025 02/16/2025 Encounter Num (more content not included)... Normal [facility] ERCPon 02-24-2025 ERCP [facility] Gastrointestinal Endoscopy Patient Name: Lizzy Yee Procedure Date: 02/24/2025 12:32 PM Date of : 1945 Admit Type: Outpatient Age: 79 Room: [place] [address] Gender: Male Note Status: Finalized Attending MD: Deangelo El MD, [id number] Procedure: ERCP Indications: Stent removal 79-year-old male patient with CAD s/p CABG, PAD s/p angioplasty, ventral hernia repair with mesh in 2021, colon polyposis syndrome s/p subtotal colectomy in 2021 who was transferred for choledocholithiasis. He underwent ERCP on 02/05/2025 with complete removal of choledocholithiasis and 1 stent placement patient underwent Cholecystectomy on 02/15/2025. Patient is here for follow-up ERCP for stent removal. Providers: Deangelo El MD, Chepe Agosto MD, Tabitha Ravi, RN, Brian Randle, NILAM (Assisting Nurse) Patient Profile: This is an 79 year old male. Refer to note in patient chart for documentation of history and physical. Referring Physician: Deangelo El MD (Referring MD) Medicines: Monitored Anesthesia Care Complications: No immediate complications. Procedure: Pre-Anesthesia Assessment: - Prior to the procedure, a History and Physical was performed, and patient medications and allergies were reviewed. The patient's tolerance of previous anesthesia was also reviewed. The risks and benefits of the procedure and the sedation options and risks were discussed with the patient. All questions were answered, and informed consent was obtained. Prior Anticoagulants: The patient has taken Plavix (clopidogrel), last dose was more than 4 weeks prior to procedure. ASA Grade Assessment: III - A patient with severe systemic disease. After reviewing the risks and benefits, the patient was deemed in satisfactory condition to undergo the procedure. After obtaining informed consent, the scope was passed under direct vision. Throughout the procedure, the patient's blood pressure, pulse, and oxygen saturations were monitored continuously. The Duodenoscope was introduced through the mouth, and advanced to the duodenum and used to inject contrast into the bile duct. The ERCP was accomplished without difficulty. The patient tolerated the procedure well. Moderate Sedation: MAC anesthesia was administered by the anesthesia team. Total Procedure Duration: 0 hours 8 minutes 4 seconds Findings: A brand sales consultant film of the abdomen was obtained. Surgical clips, consistent with previous cholecystectomy, were seen in the area of the right upper quadrant of the abdomen. One stent ending in the main bile duct was seen. The scope was passed under direct vision through the upper GI tract. One covered metal stent originating in the common bile duct was emerging from the major papilla. The stent was visibly patent. A biliary sphincterotomy had been performed. The sphincterotomy appeared open. One stent was removed from the common bile duct using a rat-toothed forceps. The bile duct was deeply cannulated with the 12 mm balloon and guidewire. Contrast was injected. I personally interpreted the bile duct images. Ductal flow of contrast was adequate. Image quality was excellent. Opacification of the entire biliary tree except for the gallbladder was successful. The maximum diameter of the ducts was 9 mm. The main bile duct, cystic duct, common hepatic duct, hepatic duct bifurcation and left and right hepatic ducts and all intrahepatic branches were normal. A cholecystectomy had been performed. The biliary tree was swept with a 12 mm balloon starting at the bifurcation. Sludge was swept from the duct. Impression: - One visibly patent stent from the common bile duct was seen in the major papilla. Removed. - Prior biliary sphincterotomy appeared open. - The patient has had a cholecystectomy. - One stent was removed from the common bile duct. - The biliary tree was swept and sludge was found. Recommendation: - Observe patient's clinical course following today's ERCP with therapeutic intervention. - I anticipate no further need for intervention. - Advance diet as tolerated. - Continue present medications. - Resume Plavix (clopidogrel) at prior dose tomorrow. - Thanks for the kind referral. Procedure Code(s): --- Professional --- 65608, Endoscopic retrograde cholangiopancreatogra phy (ERCP); with removal of foreign body(s) or stent(s) from biliary/pancreatic duct(s) 56227, Endoscopic retrograde cholangiopancreatogra phy (ERCP); with removal of calculi/debris from biliary/pancreatic duct(s) Diagnosis Code(s): --- Professional --- Z96.89, Presence of other specified functional implants Z90.49, Acquired absence of other specified parts of digestive tract Z46.59, Encounter for fitting and adjustment of other gastrointestinal appliance and device CPT copyright 2020 [employer]. All rights reserve (more content not included)... Normal [facility] ERCP Study observation Raúl arvizu 02-24-2025 [facility] Gastrointestinal Endoscopy Patient Name: Lizzy Yee Procedure Date: 02/24/2025 12:32 PM Date of : 1945 Admit Type: Outpatient Age: 79 Room: [place] [address] Gender: Male Note Status: Finalized Attending MD: Deangelo El MD, [id number] Procedure: ERCP Indications: Stent removal 79-year-old male patient with CAD s/p CABG, PAD s/p angioplasty, ventral hernia repair with mesh in 2021, colon polyposis syndrome s/p subtotal colectomy in 2021 who was transferred for choledocholithiasis. He underwent ERCP on 02/05/2025 with complete removal of choledocholithiasis and 1 stent placement patient underwent Cholecystectomy on 02/15/2025. Patient is here for follow-up ERCP for stent removal. Providers: Deangelo El MD, Chepe Agosto MD, Tabitha Ravi RN, Brian Randle, NILAM (Assisting Nurse) Patient Profile: This is an 79 year old male. Refer to note in patient chart for documentation of history and physical. Referring Physician: Deangelo El MD (Referring MD) Medicines: Monitored Anesthesia Care Complications: No immediate complications. Procedure: Pre-Anesthesia Assessment: - Prior to the procedure, a History and Physical was performed, and patient medications and allergies were reviewed. The patient's tolerance of previous anesthesia was also reviewed. The risks and benefits of the procedure and the sedation options and risks were discussed with the patient. All questions were answered, and informed consent was obtained. Prior Anticoagulants: The patient has taken Plavix (clopidogrel), last dose was more than 4 weeks prior to procedure. ASA Grade Assessment: III - A patient with severe systemic disease. After reviewing the risks and benefits, the patient was deemed in satisfactory condition to undergo the procedure. After obtaining informed consent, the scope was passed under direct vision. Throughout the procedure, the patient's blood pressure, pulse, and oxygen saturations were monitored continuously. The Duodenoscope was introduced through the mouth, and advanced to the duodenum and used to inject contrast into the bile duct. The ERCP was accomplished without difficulty. The patient tolerated the procedure well. Moderate Sedation: MAC anesthesia was administered by the anesthesia team. Total Procedure Duration: 0 hours 8 minutes 4 seconds Findings: A brand sales consultant film of the abdomen was obtained. Surgical clips, consistent with previous cholecystectomy, were seen in the area of the right upper quadrant of the abdomen. One stent ending in the main bile duct was seen. The scope was passed under direct vision through the upper GI tract. One covered metal stent originating in the common bile duct was emerging from the major papilla. The stent was visibly patent. A biliary sphincterotomy had been performed. The sphincterotomy appeared open. One stent was removed from the common bile duct using a rat-toothed forceps. The bile duct was deeply cannulated with the 12 mm balloon and guidewire. Contrast was injected. I personally interpreted the bile duct images. Ductal flow of contrast was adequate. Image quality was excellent. Opacification of the entire biliary tree except for the gallbladder was successful. The maximum diameter of the ducts was 9 mm. The main bile duct, cystic duct, common hepatic duct, hepatic duct bifurcation and left and right hepatic ducts and all intrahepatic branches were normal. A cholecystectomy had been performed. The biliary tree was swept with a 12 mm balloon starting at the bifurcation. Sludge was swept from the duct. Impression: - One visibly patent stent from the common bile duct was seen in the major papilla. Removed. - Prior b (more content not included)... PROVATION [facility] Radiology Study observation (narrative) Wilberto d [facility] GLUCOSE, BLOOD (POC)on 02-24 Glucose [Mass/Vol] 122 mg/dL Abnormal 74 - 99 mg/dL [facility] Comment on above: Location:[place] [address], [address], [place], [address] The Accu-Chek Inform II glucose meter has not been approved for testing on patients receiving intensive medical intervention or therapy and results from this point of care glucose test should not be used for patient management decisions in these cases. Inaccurate results may also occur from other interfering factors, such as N-acetylcysteine (blood concentrations of greater than 5mg/dL), galactose, extremes of hematocrit (<10 or >65), or high doses of ascorbic acid (vitamin C) greater than 3mg/dL. Consider alternate testing mechanisms (e.g. core lab, blood gas instrument) in the above situations. Interpretation and review of laboratory results Abnormal [facility] NURSING PROGon 02-24-2025 NURSING PROG HNO ID: [id number] Author: TRAM ZAMUDIO RN Service: Nursing Author Type: Registered Nurse Type: Nursing Progress Note Filed: 02/24/2025 14:12 Note Text: Summary: Surgical site concern Other: Nursing assessment During recovery after endoscopic procedure, patient's recent lap maria dolores surgical site was visualized. The area is red and warm to the touch. The surgical incisions appear normal, but the surrounding areas are concerning. Dr. Gonzalez's office made aware at this time 02/24 @ 14:00 - I spoke with Mylene Flood. Patient instructed to follow up with surgeon and to watch for signs and symptoms of worsening infection. Patient and educated. Tram RN [facility] XR ERCP READ ONLYon 02-25-20 XR ERCP READ ONLY * * *Final Report* * * DATE OF EXAM: Feb 24 2025 1:33PM FVO 5565 - XR ERCP READ ONLY / PROCEDURE REASON: intra op ercp * * * * Physician Interpretation * * * * CLINICAL INDICATION: intra op ercp Fluoroscopic Radiation Summary: Plane A, Air Kerma: 29.3 mGy Dose Area Product (DAP): Fluoro time: 1:19 min:sec RESULT: Fluoroscopic provided for endoscopic retrograde cholangiopancreatogra m. Please see operative report for further detail. IMPRESSION: Procedural guidance. Supervisor [facility]: DANIEL Transcribe Date/Time: Feb 27 2025 2:54P Dictated by : MULUGETA AMES MD This examination was interpreted and the report reviewed and electronically signed by: MULUGETA AMES MD on Feb 27 2025 2:54PM EST [id number] [facility] ALLIED HEALTHon 02-16-2025 ALLIED HEALTH HNO ID: [id number] Author: KOKO MIXON Chaplain Service: Spiritual Care Author Type: Program And Research Coordinator Type: Allied Health Filed: 02/16/2025 13:15 Note Text: SPIRITUAL CARE PROGRESS NOTE SERVICE DATE: 02/16/2025 SERVICE TIME: 1000 Introductory spiritual care visit from registration request. Introduced patient to racebook writer availability and [employer] services available to them as a patient. Will provide support as needed. To contact the Spiritual Care Department: Please call [phone]. SIGNATURE: Chaplain Naresh, DMin, BCC PATIENT NAME: Lizzy Yee DATE: February 16, 2025 TIME: 1:14 PM PAGER/CONTACT #: [phone] [facility] Bas Metab 2000 Pnl SerPlon 0 02-16-2025 Urea nitrogen [Mass/Vol] 21 mg/dL Normal 9-24 [facility] Comment on above: Order Comment: Speci men Type: BLOOD SPECIMENOrdering Facility: [facility] Address: [address] [place] [address] [address]VE, [place] [address] Performed By: #### 2 4321-2 ####[facility] LABORATORYCLIA [id number] [place] [address] [place] Performed By: #### 2 777-1, 94766-8, 98551-2 ####[facility] LABORATORYCLIA [id number] [place] [address] [place] Basic metabolic 2000 panelon 02-16-2025 Anion gap [Moles/Vol] 14 mmol/L Normal 8-15 [facility] Comment on above: Order Comment: Speci men Type: BLOOD SPECIMENOrdering Facility: [facility] Address: [address] [place] [address] Performed By: #### 2 4321-2 ####[facility] LABORATORYCLIA [id number] [place] [address] [place] Calcium [Mass/Vol] 8.7 mg/dL Normal 8.5-10.2 [facility] Comment on above: Order Comment: Speci men Type: BLOOD SPECIMENOrdering Facility: [facility] Address: [address] [place] [address] Performed By: #### 2 4321-2 ####[facility] LABORATORYCLIA [id number] [place] [address] [place] Chloride [Moles/Vol] 96 mmol/L Low 98-107 [facility] Comment on above: Order Comment: Speci men Type: BLOOD SPECIMENOrdering Facility: [facility] Address: [address] [place] [address] Performed By: #### 2 4321-2 ####[facility] LABORATORYCLIA [id number] [place] [address] [place] CO2 [Moles/Vol] 20 mmol/L Low 22-30 [facility] Comment on above: Order Comment: Speci men Type: BLOOD SPECIMENOrdering Facility: [facility] Address: [address] [place] [address] Performed By: #### 2 4321-2 ####[facility] LABORATORYCLIA [id number] [place] [address] [place] Creatinine [Mass/Vol] 1.10 mg/dL Normal 0.73-1.22 [facility] Comment on above: Order Comment: Magdalene reece Type: BLOOD SPECIMENOrdering Facility: [facility] Address: [address] [place] [address] Performed By: #### 2 4321-2 ####[facility] LABORATORYCLIA [id number] [place] [address] [place] eGFRcr SerPlBld CKD-EPI 2020 68 mL/min/1.73m??? Normal >=60 [facility] Comment on above: Order Comment: Magdalene reece Type: BLOOD SPECIMENOrdering Facility: [facility] Address: [address] [place] [address] Result Comment: Bisi mated Glomerular Filtration Rate (eGFR) is calculated using the 2020 CKD-EPI creatinine equation. This equation utilizes serum creatinine, sex, and age as parameters. The creatinine assay has traceable calibration to isotope dilution-mass spectrometry. Refer to KDIGO guidelines for clinical interpretation. In patients with unstable renal function, e.g. those with acute kidney injury, the eGFR may not accurately reflect actual GFR. Performed By: #### 2 4321-2 ####[facility] LABORATORYCLIA [id number] [place] [address] [place] Glucose [Mass/Vol] 262 mg/dL High 74-99 [facility] Comment on above: Order Comment: Magdalene reece Type: BLOOD SPECIMENOrdering Facility: [facility] Address: [address] [place] [address] Result Comment: The [place] [employer] (ADA) provides guidance for cutoff values for fasting glucose and random glucose. The ADA defines fasting as no caloric intake for at least 8 hours. Fasting plasma glucose results between 100 to 125 mg/dL indicate increased risk for diabetes (prediabetes). Fasting plasma glucose results greater than or equal to 126 mg/dL meet the criteria for diagnosis of diabetes. In the absence of unequivocal hyperglycemia, results should be confirmed by repeat testing. In a patient with classic symptoms of hyperglycemia or hyperglycemic crisis, random plasma glucose results greater than or equal to 200 mg/dL meet the criteria for diagnosis of diabetes. Reference: Standards of Medical Care in Diabetes 2016, [place] [employer]. Diabetes Care. 2016.39(Suppl 1). Performed By: #### 2 4321-2 ####[facility] LABORATORYCLIA [id number] [place] [address] [place] Potassium [Moles/Vol] 4.7 mmol/L Normal 3.7-5.1 [facility] Comment on above: Order Comment: Speci men Type: BLOOD SPECIMENOrdering Facility: [facility] Address: [address] [place] [address] Performed By: #### 2 4321-2 ####AL[facility] LABORATORYCLIA [id number] [place] [address] [place] Sodium [Moles/Vol] 130 mmol/L Low 136-144 [facility] Comment on above: Order Comment: Speci men Type: BLOOD SPECIMENOrdering Facility: [facility] Address: [address] [place] [address] Performed By: #### 2 4321-2 ####[facility] LABORATORYCLIA [id number] [place] [address] [place] Blood manual differential co mment interpretation narrativeOrdered By: Jay Gonzalez on 02-16-2025 Manual differential comment Angelito (Bld) [Interp] Auto [facility] CBC W Auto Diff BldOrdered B y: Jay Gonzalez on 02-16-2025 Basophils (Bld) [#/Vol] 0.04 10*3/uL <0.11 [facility] Comment on above: Order Comment: Speci men Type: BLOOD SPECIMENOrdering Facility: [facility] Address: [address] [place] [address] Performed By: #### 5 7021-8 ####[facility] LABORATORYCLIA [id number] [place] [address] [place] Basophils/100 WBC (Bld) 0.4 % [facility] Comment on above: Order Comment: Speci men Type: BLOOD SPECIMENOrdering Facility: [facility] Address: [address] [place] [address] Performed By: #### 5 7021-8 ####[facility] LABORATORYCLIA [id number] [place] [address] [place] Eosinophils (Bld) [#/Vol] 10*3/uL <0.46 [facility] Comment on above: Order Comment: Speci men Type: BLOOD SPECIMENOrdering Facility: [facility] Address: [address] [place] [address] Performed By: #### 5 7021-8 ####[facility] LABORATORYCLIA [id number] [place] [address] [place] Eosinophils/100 WBC (Bld) 0.2 % [facility] Comment on above: Order Comment: Speci men Type: BLOOD SPECIMENOrdering Facility: [facility] Address: [address] [place] [address] Performed By: #### 5 7021-8 ####[facility] LABORATORYCLIA [id number] [place] [address] [place] Erythrocyte distribution width (RBC) [Ratio] 14.3 % 11.5-15.0 [facility] Comment on above: Order Comment: Speci men Type: BLOOD SPECIMENOrdering Facility: [facility] Address: [address] [place] [address] Performed By: #### 5 7021-8 ####[facility] LABORATORYCLIA [id number] [place] [address] [place] Hematocrit (Bld) [Volume fraction] 40.2 % 39.0-51.0 [facility] Comment on above: Order Comment: Speci men Type: BLOOD SPECIMENOrdering Facility: [facility] Address: [address] [place] [address] Performed By: #### 5 7021-8 ####[facility] LABORATORYCLIA [id number] [place] [address] [place] Hemoglobin (Bld) [Mass/Vol] 13.9 g/dL 13.0-17.0 [facility] Comment on above: Order Comment: Speci men Type: BLOOD SPECIMENOrdering Facility: [facility] Address: [address] [place] [address] Performed By: #### 5 7021-8 ####[facility] LABORATORYCLIA [id number] [place] [address] [place] Immature granulocytes (Bld) [#/Vol] 0.03 10*3/uL <0.10 [facility] Comment on above: Order Comment: Speci men Type: BLOOD SPECIMENOrdering Facility: [facility] Address: [address] [place] [address] Performed By: #### 5 7021-8 ####[facility] LABORATORYCLIA [id number] [place] [address] [place] Immature granulocytes/100 WBC (Bld) 0.3 % [facility] Comment on above: Order Comment: Speci men Type: BLOOD SPECIMENOrdering Facility: [facility] Address: [address] [place] [address] Performed By: #### 5 7021-8 ####AL[facility] LABORATORYCLIA [id number] [place] [address] [place] Lymphocytes (Bld) [#/Vol] 1.05 10*3/uL 1.00-4.00 [facility] Comment on above: Order Comment: Speci men Type: BLOOD SPECIMENOrdering Facility: [facility] Address: [address] [place] [address] Performed By: #### 5 7021-8 ####[facility] LABORATORYCLIA [id number] [place] [address] [place] Lymphocytes/100 WBC (Bld) 10.0 % [facility] Comment on above: Order Comment: Speci men Type: BLOOD SPECIMENOrdering Facility: [facility] Address: [address] [place] [address] Performed By: #### 5 7021-8 ####[facility] LABORATORYCLIA [id number] [place] [address] [place] MCH (RBC) [Entitic mass] 32.3 pg 26.0-34.0 [facility] Comment on above: Order Comment: Speci men Type: BLOOD SPECIMENOrdering Facility: [facility] Address: [address] [place] [address] Performed By: #### 5 7021-8 ####[facility] LABORATORYCLIA [id number] [place] [address] [place] MCHC (RBC) [Mass/Vol] 34.6 g/dL 30.5-36.0 [facility] Comment on above: Order Comment: Speci men Type: BLOOD SPECIMENOrdering Facility: [facility] Address: [address] [place] [address] Performed By: #### 5 7021-8 ####[facility] LABORATORYCLIA [id number] [place] [address] [place] MCV (RBC) [Entitic vol] 93.5 fL 80.0-100.0 [facility] Comment on above: Order Comment: Speci men Type: BLOOD SPECIMENOrdering Facility: [facility] Address: [address] [place] [address] Performed By: #### 5 7021-8 ####[facility] LABORATORYCLIA [id number] [place] [address] [place] Monocytes (Bld) [#/Vol] 1.01 10*3/uL High <0.87 [facility] Comment on above: Order Comment: Speci men Type: BLOOD SPECIMENOrdering Facility: [facility] Address: [address] [place] [address] Performed By: #### 5 7021-8 ####[facility] LABORATORYCLIA [id number] [place] [address] [place] Monocytes/100 WBC (Bld) 9.7 % [facility] Comment on above: Order Comment: Speci men Type: BLOOD SPECIMENOrdering Facility: [facility] Address: [address] [place] [address] Performed By: #### 5 7021-8 ####[facility] LABORATORYCLIA [id number] [place] [address] [place] Neutrophils (Bld) [#/Vol] 8.31 10*3/uL High 1.45-7.50 [facility] Comment on above: Order Comment: Speci men Type: BLOOD SPECIMENOrdering Facility: [facility] Address: [address] [place] [address] Performed By: #### 5 7021-8 ####[facility] LABORATORYCLIA [id number] [place] [address] [place] Neutrophils/100 WBC (Bld) 79.4 % [facility] Comment on above: Order Comment: Speci men Type: BLOOD SPECIMENOrdering Facility: [facility] Address: [address] [place] [address] Performed By: #### 5 7021-8 ####[facility] LABORATORYCLIA [id number] [place] [address] [place] Nucleated RBC (Bld) [#/Vol] 10*3/uL <0.01 [facility] Comment on above: Order Comment: Speci men Type: BLOOD SPECIMENOrdering Facility: [facility] Address: [address] [place] [address] Performed By: #### 5 7021-8 ####[facility] LABORATORYCLIA [id number] [place] [address] [place] Platelet mean volume (Bld) [Entitic vol] 10.4 fL 9.0-12.7 [facility] Comment on above: Order Comment: Speci men Type: BLOOD SPECIMENOrdering Facility: [facility] Address: [address] [place] [address] Performed By: #### 5 7021-8 ####[facility] LABORATORYCLIA [id number] [place] [address] [place] Platelets (Bld) [#/Vol] 203 10*3/uL 150-400 [facility] Comment on above: Order Comment: Speci men Type: BLOOD SPECIMENOrdering Facility: [facility] Address: [address] [place] [address] Performed By: #### 5 7021-8 ####[facility] LABORATORYCLIA [id number] [place] [address] [place] RBC (Bld) [#/Vol] 4.30 10*6/uL 4.20-6.00 [facility] Comment on above: Order Comment: Speci men Type: BLOOD SPECIMENOrdering Facility: [facility] Address: [address] [place] [address] Performed By: #### 5 7021-8 ####[facility] LABORATORYCLIA [id number] [place] [address] [place] CBC W Auto Differential pane l (Bld)on 02-16-2025 Differential cell count method Nom (Bld) Auto Normal [facility] Comment on above: Order Comment: Speci men Type: BLOOD SPECIMENOrdering Facility: [facility] Address: [address] [place] [address] Performed By: #### 5 7021-8 ####[facility] LABORATORYCLIA [id number] [place] [address] [place] Nucleated RBC/100 WBC (Bld) [Ratio] 0.0 /100 WBC Normal [facility] Comment on above: Order Comment: Speci men Type: BLOOD SPECIMENOrdering Facility: [facility] Address: [address] [place] [address] Performed By: #### 5 7021-8 ####[facility] LABORATORYCLIA [id number] [place] [address] [place] WBC (Bld) [#/Vol] 10.46 10*3/uL Normal 3.70-11.00 [facility] Comment on above: Order Comment: Speci men Type: BLOOD SPECIMENOrdering Facility: [facility] Address: [address] [place] [address] Performed By: #### 5 7021-8 ####[facility] LABORATORYCLIA [id number] [place] [address] [facility] CNDSon 02-16-2025 CNDS HNO ID: [id number] Author: ROSI GALVEZ PA-C Service: General Surgery Author Type: Physician Cooperative Education Director Type: Discharge Summary Filed: 02/16/2025 13:51 Note Text: Attestation signed by Jay Gonzalez MD at 02/16/2025 2:04 PM Attending Note I have personally performed a face to face assessment of the patient and have reviewed the FRANCISCO J note. I performed a substantive portion of the visit including all aspects of the following. My kaur findings include: POD 1 from laparoscopic cholecystectomy. Recovering appropriately and ready for discharge. Signature: Jay Gonzalez MD Date: 02/16/2025 Time: 2:04 PM DISCHARGE SUMMARY PATIENT NAME: Lizzy Yee ADMISSION DATE: 02/15/2025 DISCHARGE DATE: 02/16/2025 ATTENDING PHYSICIAN: Jay Gonzalez MD Code Status: Not on file Highest Readmission Risk Score: 14 The 30 day readmissions risk score is derived from an internally validated risk model which evaluates patient level characteristics, utilization history, medication orders and lab results up until the day of discharge. Patients with a score of 39 or above are considered highest risk for readmission. Specific patient level drivers will be listed at the bottom of the summary. CONSULTING TEAMS DURING HOSPITALIZATION: None Treatment Team: Attending Provider: Jay Gonzalez MD REASON FOR HOSPITALIZATION: Cholecystitis with a history of choledocholithiasis FINAL DIAGNOSIS: Active Hospital Problems No active problems to display. Resolved Hospital Problems Diagnosis POA Cholecystitis Yes Morbid Obesity Class 3 OPERATIONS DURING HOSPITALIZATION: Laparoscopy Cholecystectomy with Cholangiogram PROCEDURES DURING HOSPITALIZATION: Intubation HOSPITAL COURSE: Mr. Yee was admitted following the above described operation, which was performed without complication. Post operatively he was admitted to a regular nursing floor for further recovery. He was encouraged to ambulate to minimize his risk for developing a DVT, and to promote bowel function. His diet was advanced, and his medications were converted to oral and tolerated. On February 16, 2025 his vital signs were normal, he had satisfactory toleration of a PO diet, and adequate pain control on oral medications. He was given instructions to follow up in the clinic on an outpatient basis. PATIENT CONDITION AT DISCHARGE: Stable DISCHARGE DISPOSITION: Home with Self Care Discharge Physical Exam: VITAL SIGNS: BP 102/55 Pulse 83 Temp 36.9 ?C (98.4 ?F) (Oral) Resp 18 Ht 165.1 cm (5' 5 ) Wt 95.4 kg (210 lb 5.1 oz) SpO2 96% BMI 35.00 kg/m? GENERAL: Alert, no distress, cooperative LUNGS: Non labored breathing, no shortness of breath CARDIAC: RRR ABDOMEN: Soft, non-distended, appropriate post operative tenderness. The incisions are well approximated, no erythema or edema EXTREMITIES: No edema NEURO: Grossly intact INFORMATION PROVIDED TO PATIENT: Home Going Instructions After a Gallbladder Operation Symptoms or health problems to watch for after I leave the hospital: -Increasing abdominal pain or swelling -Vomiting -Dark or no urine -Fever greater than 101.5?F (38.6?C) or chills -Unable to take in liquids or solid foods for greater than 24 hours -Shortness of breath -Chest pain -Racing heartbeat -Difficulty urinating -Bloody, dark, or tarry stool from rectum For these or any other concerning symptom, please call immediately for advice 1. Diet Following Gallbladder Removal Your gallbladder is located just under your liver. It is a small sac that holds bile. Bile is made by the liver but stored in the gallbladder. After eating a meal, the gallbladder squeezes the bile into the intestines. Bile helps digest fat. After the gallbladder is taken out, you still make bile from your liver. However, it is not stored anywhere. The bile made from the liver will now leak slowly into your intestines all day. After a cholecystectomy, a high-fat diet can put stress on your liver and cause fatty stools. Fatty stools can cause bloating, abdominal pain, and very uncomfortable bowel movements. A low-fat diet is exactly what it sounds like. Some tips to start eating a low-fat diet: Look at food labels and see how much fat is in the food. Ideally the fat content should be less than 25%. You can buy low-fat versions of most foods at the grocery store. Stay away from fried food! These foods are always high in fat. Instead, grill these food items. This lowers the amount of fat. Red meats often have high-fat contents. Red meats include beef, pork, and ramey. Substitute lean meats for a low-fat diet. Lean meats include turkey, chicken, and fish. Milk often has a lot of fat in it as well. Switch from whole milk to 1% milk or skim milk. T (more content not included)... Normal [facility] Comprehensive metabolic 2000 panelon 02-16-2025 Albumin [Mass/Vol] 3.5 g/dL Low 3.9-4.9 [facility] Comment on above: Order Comment: Speci men Type: BLOOD SPECIMENOrdering Facility: [facility] Address: [address] [place] [address] Performed By: #### 2 777-1, , ####[facility] LABORATORYCLIA [id number] [place] [id number] [place] ALP [Catalytic activity/Vol] 112 U/L Normal 38-113 [facility] Comment on above: Order Comment: Speci men Type: BLOOD SPECIMENOrdering Facility: [facility] Address: [address] [place] [address] Performed By: #### 2 777-1, , ####[facility] LABORATORYCLIA [id number] [place] [id number] [place] ALT [Catalytic activity/Vol] 46 U/L Normal 10-54 [facility] Comment on above: Order Comment: Speci men Type: BLOOD SPECIMENOrdering Facility: [facility] Address: [address] [place] [address] Performed By: #### 2 777-1, , ####[facility] LABORATORYCLIA [id number] [place] [id number] [place] Anion gap [Moles/Vol] 15 mmol/L Normal 8-15 [facility] Comment on above: Order Comment: Speci men Type: BLOOD SPECIMENOrdering Facility: [facility] Address: [address] [place] [id number] Performed By: #### 2 777-1, , ####[facility] LABORATORYCLIA [id number] [place] [address] [place] AST [Catalytic activity/Vol] 48 U/L High 14-40 [facility] Comment on above: Order Comment: Speci men Type: BLOOD SPECIMENOrdering Facility: [facility] Address: [address] [place] [address] Performed By: #### 2 777-1, , ####AL[facility] LABORATORYCLIA [id number] [place] [address] [place] Bilirubin [Mass/Vol] 0.6 mg/dL Normal 0.2-1.3 [facility] Comment on above: Order Comment: Speci men Type: BLOOD SPECIMENOrdering Facility: [facility] Address: [address] [place] [id number] Performed By: #### 2 777-1, , ####AL[facility] LABORATORYCLIA [id number] [place] [id number] [place] Calcium [Mass/Vol] 9.2 mg/dL Normal 8.5-10.2 [facility] Comment on above: Order Comment: Speci men Type: BLOOD SPECIMENOrdering Facility: [facility] Address: [address] [place] [id number] Performed By: #### 2 777-1, , ####AFLREDO LABORATORYCLIA [id number] [place] [id number] [place] Chloride [Moles/Vol] 99 mmol/L Normal 98-107 [facility] Comment on above: Order Comment: Speci men Type: BLOOD SPECIMENOrdering Facility: [facility] Address: [address] [address] Performed By: #### 2 777-1, , ####[facility] LABORATORYCLIA [id number] [place] [address] [place] CO2 [Moles/Vol] 21 mmol/L Low 22-30 [facility] Comment on above: Order Comment: Speci men Type: BLOOD SPECIMENOrdering Facility: [facility] Address: [address] [place] [address] Performed By: #### 2 777-1, , ####[facility] LABORATORYCLIA [id number] [place] [address] [place] Creatinine [Mass/Vol] 1.18 mg/dL Normal 0.73-1.22 [facility] Comment on above: Order Comment: Speci men Type: BLOOD SPECIMENOrdering Facility: [facility] Address: [address] [place] [address] Performed By: #### 2 777-1, , ####[facility] LABORATORYCLIA [id number] [place] [id number] [place] eGFRcr SerPlBld CKD-EPI 2020 62 mL/min/1.73m??? Normal >=60 [facility] Comment on above: Order Comment: Speci men Type: BLOOD SPECIMENOrdering Facility: [facility] Address: [address] [place] [address] Result Comment: Bisi mated Glomerular Filtration Rate (eGFR) is calculated using the 2020 CKD-EPI creatinine equation. This equation utilizes serum creatinine, sex, and age as parameters. The creatinine assay has traceable calibration to isotope dilution-mass spectrometry. Refer to KDIGO guidelines for clinical interpretation. In patients with unstable renal function, e.g. those with acute kidney injury, the eGFR may not accurately reflect actual GFR. Performed By: #### 2 777-1, , ####[facility] LABORATORYCLIA [id number] [place] [address] [place] Glucose [Mass/Vol] 168 mg/dL High 74-99 [facility] Comment on above: Order Comment: Speci men Type: BLOOD SPECIMENOrdering Facility: [facility] Address: [address] [place] [address] Result Comment: The [place] [employer] (ADA) provides guidance for cutoff values for fasting glucose and random glucose. The ADA defines fasting as no caloric intake for at least 8 hours. Fasting plasma glucose results between 100 to 125 mg/dL indicate increased risk for diabetes (prediabetes). Fasting plasma glucose results greater than or equal to 126 mg/dL meet the criteria for diagnosis of diabetes. In the absence of unequivocal hyperglycemia, results should be confirmed by repeat testing. In a patient with classic symptoms of hyperglycemia or hyperglycemic crisis, random plasma glucose results greater than or equal to 200 mg/dL meet the criteria for diagnosis of diabetes. Reference: Standards of Medical Care in Diabetes 2016, [place] [employer]. Diabetes Care. 2016.39(Suppl 1). Performed By: #### 2 777-1, , ####AL[facility] LABORATORYCLIA [id number] [place] [id number] [place] Potassium [Moles/Vol] 5.4 mmol/L High 3.7-5.1 [facility] Comment on above: Order Comment: Speci men Type: BLOOD SPECIMENOrdering Facility: [facility] Address: [address] [place] [phone] Performed By: #### 2 777-1, , ####AL[facility] LABORATORYCLIA [id number] [place] [id number] [place] Protein [Mass/Vol] 6.0 g/dL Low 6.3-8.0 [facility] Comment on above: Order Comment: Speci men Type: BLOOD SPECIMENOrdering Facility: [facility] Address: [address] [place] [id number] Performed By: #### 2 777-1, , ####AL[facility] LABORATORYCLIA [id number] [place] [id number] [place] Sodium [Moles/Vol] 135 mmol/L Low 136-144 [facility] Comment on above: Order Comment: Speci men Type: BLOOD SPECIMENOrdering Facility: [facility] Address: [address] [place] [id number] Performed By: #### 2 777-1, , ####AL[facility] LABORATORYCLIA [id number] [place] [id number] [place] Leukocytes [#/volume] correc maru for nucleated erythrocytes in Blood by Automated counOrdered By: Jay Gonzalez on 02-16-2025 WBC corrected for nucl RBC Auto (Bld) [#/Vol] 10.46 k/uL 3.70-11.00 [facility] Magnesium SerPl-mCncOrdered By: Jay Gonzalez on 02-16-2025 Magnesium [Mass/Vol] 1.6 mg/dL Low 1.7-2.3 [facility] Comment on above: Order Comment: Speci men Type: BLOOD SPECIMENOrdering Facility: [facility] Address: [address] [place] [address] Performed By: #### 2 777-1, , ####AL[facility] LABORATORYCLIA [id number] [place] [address] [place] No Panel InformationOrdered By: Jay Gonzalez on 02-16-2025 Phosphorus Level 3.1 mg/dL 2.7-4.8 [facility] Nucleated erythrocytes [Pres ence] in Blood by Automated countOrdered By: Jay Gonzalez on 02-16-2025 Nucleated RBC Auto Ql (Bld) 0.0 /100{WBC} [facility] Phosphate SerPl-mCncon 02-16 Phosphate [Mass/Vol] 3.1 mg/dL Normal 2.7-4.8 [facility] Comment on above: Order Comment: Speci men Type: BLOOD SPECIMENOrdering Facility: [facility] Address: [address] [place] [address] Performed By: #### 2 777-1, , ####AL[facility] LABORATORYCLIA [id number] [place] [id number] [place] ANES POSTPROC EVALon 025 ANES POSTPROC EVAL HNO ID: [id number] Author: GABY MCNALLY MD Service: Anesthesiology Author Type: Anesthesiologist Type: Anesthesia Postprocedure Evaluation Filed: 02/15/2025 13:51 Note Text: POST ANESTHESIA EVALUATION NOTE : 1945 Procedure Summary Date: 02/15/25 Room / Location: OR12 / OR Anesthesia Start: 731 Anesthesia Stop: 1144 Procedure: LAPAROSCOPIC CHOLECYSTECTOMY WITH GRAMS (Gallbladder) Diagnosis: Choledocholithiasis (Choledocholithiasis [K80.50]) Surgeons: Jay Gonzalez MD Responsible Provider: Gaby Mcnally MD Anesthesia Type: general ASA Status: 3 Anesthesia Type: general Airway Type: ETT Last Vitals Vitals Value Taken Time BP 109/54 02/15/25 1300 Temp 36.2 ?C (97.2 ?F) 02/15/25 1245 Pulse 65 02/15/25 1314 Resp 22 02/15/25 1314 SpO2 95 % 02/15/25 1314 Vitals shown include unfiled device data. Post Anesthesia Patient Status Patient Evaluation: PACU. PACU/ICU Patient Condition: stable. Anticipated Disposition: phase 2 then home. Neurological Status: aware and responsive. Pulmonary Status: breathing comfortably on room air Airway Control: returned to baseline unsupported. Cardiovascular Status: stable. Pain Management: clinically adequate Postoperative Hydration: acceptable. Intraoperative Events: no significant anesthesia events Post Operative Nausea/Vomiting Status: no significant post operative nausea or vomiting Recommendation: continue current plan of care. Anesthesia Observations No Documentation SIGNATURE: Gaby Mcnally MD PATIENT NAME: Lizzy Yee DATE: February 15, 2025 TIME: 1:51 PM CSN: [id number] [facility] ANES PRE-OPon 02-15-2025 ANES PRE-OP HNO ID: [id number] Author: GABY MCNALLY MD Service: Anesthesiology Author Type: Anesthesiologist Type: Anesthesia Preprocedure Evaluation Filed: 02/15/2025 07:04 Note Text: ANESTHESIOLOGY DAY OF SURGERY NOTE : 1945 Procedure Information Date/Time: 02/15/25729 Procedure: LAPAROSCOPIC CHOLECYSTECTOMY WITH GRAMS (Gallbladder) - poss grams Location: [place] [address] / OR Surgeons: Jay Gonzalez MD Estimated body mass index is 35.22 kg/m? as calculated from the following: Height as of 02/10/25: 165.1 cm (5' 5 ). Weight as of 02/10/25: 96 kg (211 lb 10.3 oz). Most recent hematocrit and potassium results: Hematocrit 39.9 01/20/2025 Potassium 3.9 01/20/2025 Relevant Problems ANESTHESIA (+) Sleep apnea CARDIO (+) ASHD (arteriosclerotic heart disease) (+) Carotid stenosis (+) HTN (hypertension) (+) PAD (peripheral artery disease) (+) Presence of stent in coronary artery (+) S/P CABG x 4 ENDO (+) Type 2 diabetes mellitus, without long-term current use of insulin (HCC) GI (+) GERD (gastroesophageal reflux disease) PULMONARY (+) Sleep apnea I - PHYSICAL EVALUATION AIRWAY Patient intubated: No. Tracheostomy tube not present Mallampati: II. TM distance: >3 FB. Neck ROM: full ROM without neurological symptoms. Mouth opening: adequate. Short neck: no. Thick neck: no DENTAL Dental findings: teeth intact. Additional exam findings: yes. CARDIOVASCULAR Rate: normal PULMONARY Breath sounds clear to auscultation. II - ANESTHESIA PLAN ASA Score: 3 Anesthetic Plan: general Airway type: ETT The patient is not a current smoker. NPO Status: adequate Beta Joselo Monitoring Plan Monitoring plan: standard ASA. Post Procedure Analgesic Plan Postoperative analgesic plan: multimodal analgesia. Informed Consent Anesthetic risks, benefits, alternatives, personnel and consent discussed: yes. Patient / Responsible Democrat agrees to proceed: yes Patient / Surrogate agrees to blood products: blood products not planned DNR status not reviewed with patient and/or family prior to surgery. Significant changes in the patient condition since the History and Physical, not otherwise documented in primary service progress note: no. Potential Anesthesia issues that may suggest increased risk of complications or contraindication to planned procedure: none. Vitals Value Taken Time BP 110/57 02/15/25 0654 Pulse 55 02/15/25 0654 Resp 16 02/15/25 0654 Temp 36.3 ?C (97.3 ?F) 02/15/25 0654 SpO2 98 % 02/15/25 0654 Facility-Administered Medications as of 02/15/2025 Medication Dose Route Frequency lidocaine (PF) 10 mg/mL (1 %) 1-2 mg injection (XYLOCAINE) 0.1-0.2 mL INTRADERMAL PRN lactated ringers iv infusion 5-30 mL/hr INTRAVENOUS CONTINUOUS NaCl 0.9% iv flush bag 20 mL INTRAVENOUS PRN heparin 5,000 Units injection 5,000 Units SUBCUTANEOUS ONCE ceFAZolin iv piggyback 2 g in D5W (iso-osmotic) 100 mL (ANCEF) 2 g INTRAVENOUS Pre-Op Once acetaminophen 1,000 mg tab(s) (TYLENOL) 1,000 mg ORAL ONCE lactated ringers iv infusion 30 mL/hr INTRAVENOUS CONTINUOUS Outpatient Medications as of 02/15/2025 Medication Sig lisinopril (ZESTRIL) 30 mg tablet [address] (PROTONIX) 40 mg tablet Take 40 mg by mouth once daily. amLODIPine (NORVASC) 5 mg tablet Take 1 tablet by mouth once daily. traMADol (ULTRAM) 50 mg tablet take 1 tablet by mouth at bedtime for 30 days tramadol HCl (TRAMADOL ORAL) Take 50 mg by mouth. loratadine (CLARITIN) 10 mg tablet Take 10 mg by mouth. MULTI-VITAMIN ORAL Take by mouth once daily. ZINC ORAL Take by mouth once daily. ascorbic acid (VITAMIN C ORAL) Take by mouth once daily. vitamin B complex (B COMPLEX 1 ORAL) Take by mouth once daily. docosahexaenoic acid/epa (FISH OIL ORAL) Take by mouth once daily. CHOLECALCIFEROL, VITAMIN D3, ORAL Take by mouth once daily. MAGNESIUM ORAL Take by mouth once daily. CPAP daily at bedtime. glipiZIDE (GLUCOTROL) 5 mg tablet once daily. sertraline (ZOLOFT) 100 mg tablet TAKE 1 TABLET BY MOUTH EVERYDAY AT BEDTIME (Patient not taking: Reported on 02/10/2025) hydroCHLOROthiazide (HYDRODIURIL, ESIDRIX) 25 mg tablet Take 25 mg by mouth once daily. atorvastatin (LIPITOR) 80 mg tablet Take 80 mg by mouth once daily. clopidogrel (PLAVIX) 75 mg tablet Take 75 mg by mouth once daily. aspirin 81 mg cap Take by mouth once daily. I have interviewed and examined the patient. I have reviewed the medical record and/or the pre-anesthesia evaluation, pertinent labs, and test results. This contains updated information obtained within 48 hours of Surgery/Procedure. SIGNATURE: Gaby Mcnally MD PATIENT NAME: Lizzy Yee DATE: February 15, 2025 TIME: 7:03 AM CSN: [id number] [facility] NURSING PROGon 02-15-2025 NURSING PROG HNO ID: [id number] Author: VETO MARY, RN Service: Nursing Author Type: Registered Nurse Type: Nursing Progress Note Filed: 02/15/2025 16:26 Note Text: Transfer Note: PATIENT NAME: Lizzy Yee Patient Location: [place] [address] [address] Room: [place] [address] Patient transferred into room/unit [id number] in stable condition. Actions taken: No futher actions taken at this time. Will continue to monitor and check with patient. [facility] OPERATIVE NOon 02-15-2025 OPERATIVE NO HNO ID: [id number] Author: JAY GONZALEZ MD Service: General Surgery Author Type: Physician Type: Operative Report Filed: 02/15/2025 11:35 Note Text: LOG ID: [id number] Surgery/Procedure Date: 02/15/2025 Incision/Procedure Start Time: 8:07 AM Incision Close/Procedure End Time: 11:32 AM Surgeon(s)/Procedural ist(s) and Cooperative Education Director(s): Surgeons and Role: * Jay Gonzalez MD - Primary * Leonardo Coleman MD - Resident - Assisting No Additional Staff Procedure(s): Laparoscopic Cholecystectomy Intraoperative cholangiogram Indication: Lizzy Yee is an 79 year old male with a past medical history of CAD s/p 4v CABG (2016), PAD w/ R Popliteal Occlusion s/p Angioplasty, BHUPENDRA, HTN, HLD, Anxiety, Obesity, ventral hernia repair w/ mesh (Dr Gonzalez; 2021), Colonic Polyposis Syndrome s/p Subtotal colectomy (Dr Medina; 2021) who was transferred from [facility] 01/18/2025 to [facility] for concerns of choledocholithiasis. He underwent an ERCP with Dr. El on 01/19/2025 that resulted in complete removal of the obstructing stone. He was discharged home 01/20/2025 and presents today for laparoscopic cholecystectomy. The risks, benefits, and alternatives to laparoscopic cholecystectomy were discussed with the patient including the risk of bleeding, infection, damage to surrounding structures including the liver, bowel, and common bile duct, retained stone, and bile leak. All patient questions were answered to their satisfaction. Written consent was obtained and can be found under the Epic Consent tab. Anesthesia: General Procedure Details: A safety huddle was performed in the preoperative area with the patient, anesthesia, OR team, and myself present. The patient's name, date of , and operation were confirmed as well as SCD use and the administration of IV antibiotics and subcutaneous heparin prior to incision. The patient was then taken to the operating room and placed in supine position with the left arm tucked and right arm out. General endotracheal anesthesia was achieved. The patient was prepped with chloraprep and draped in a sterile fashion. An audible time out was performed prior to incision. Due to the patient's prior abdominal wall reconstruction, I began with a transverse incision was made in the epigastrium, just to the right of midline. The subcutaneous tissues were divided with electrocautery revealing the anterior sheath over the right rectus muscle. The anterior sheath was grasped between to Omer clamps, elevated, and divided transversely with the 11-blade. The rectus muscle fibers were split longitudinally with a Clovis clamp to reveal the posterior sheath and mesh which was grasped between two Omer clamps, elevated, and divided transversely with the 15-blade. The peritoneum was entered sharply with the 15 and this revealed a small space free of adhesions in the RUQ. Two 2-0 Prolene figure of eight sutures were placed through the posterior sheath and mesh for later closure. An S-retractor was placed into the abdomen and a 12 mm Walls trocar was placed and secured with the Prolene sutures. The abdomen was insufflated to 15 mmHg and a 5 mm, 30 degree scope was introduced into the abdomen. The abdomen was inspected and aside from a 1 cm cuff around our site of entry, there was absolutely no free space in the abdomen. There were filmy adhesions everywhere. Using the camera, I was able to bluntly disrupt some of these, hugging the peritoneum and preperitoneal mesh on the anterior abdominal wall, moving along the costal margin. I was able to create enough space to get a 5 mm trocar in the mid clavicular line in and then with cold scissors, continued working to clear the space. We were able to move cephalad and identify the caudal edge of the liver. We could also see that the gallbladder itself was relatively free of adhesions. Thankfully, there was free space above the liver. We extended our dissection laterally along the costal margin and were able to get a right lateral subcostal 5 mm port in. I then worked do clear some space caudally for a camera as well as medially where there was a loop of bowel adherent to the anterior abdominal wall only 3 mm caudal to our site entry. Once we cleared enough space, we put a RUQ 5 mm port in only ~8 cm from our costal margin but this allowed for enough room for us to start the operation. All ports were placed under direction vision after infiltrating the skin and muscle with 0.5% bupivacaine local anaesthetic. The patient was then placed in reverse Trendelenburg and rotated slightly to their left. Next, the fundus of the gallbladder was grasped and elevated over the liver revealing the base of gallbladder and cystic triangle. There were a few flimsy adhesions that were taken down sharply. The gallbladder appeared somewhat contracted and thick walled consistent with chronic inflammation. Next, the peritoneum over (more content not included)... Normal [facility] Pathology biopsy report Angelito (Tiss)on 02-15-2025 AP DISCLAIMER Normal [facility] Comment on above: Order Comment: Speci men Type: TISSUE SPECIMEN [facility] Address: [address] [place], [place] [id number] Result Comment: Anthony Vaca Test (LDT) Disclaimer: Performance characteristics of immunohistochemical, immunofluorescent, and chromogenic in-situ hybridization tests have been determined by the performing laboratory within [facility]'s [place] [place] [facility] Laboratory Medicine Department ([facility], [facility], [facility], [facility], [facility], [facility], or [facility]) in a manner consistent with CLIA requirements. One or more of these tests may not have been cleared or approved by the FDA. [facility] is regulated under CLIA as qualified to perform high-complexity testing. These tests are used for clinical purposes. These should not be regarded as investigational or for research. Positive and negative controls stain appropriately. Performed By: #### 6 6121-5 #### [facility] CLIA [id number] [address] [place] [address] LABORATORY CLIA [id number] [address] [place] [address] CASE REPORT Normal [facility] Comment on above: Order Comment: Speci men Type: TISSUE SPECIMEN [facility] [facility] Address: [address] [place] [address] Result Comment: Surg ical Pathology Report Case: [id number] Authorizing Provider: Jay Gonzalez MD Collected: 02/15/2025 08:14 AM Ordering Location: [facility] Received: 02/15/2025 01:32 PM Operating Room Pathologist: Van Sun MD Specimen: Gallbladder Performed By: #### 6 6121-5 #### [facility] CLIA [id number] [address] [place] [address] LABORATORY CLIA [id number] [address] [place] [address] [place] CLINICAL HISTORY Normal [facility] Comment on above: Order Comment: Speci men Type: TISSUE SPECIMEN Ordering Facility: [facility] Address: [address] [place] [address] Result Comment: Pre- op diagnosis: Choledocholithiasis [K80.50] Performed By: #### 6 6121-5 #### [facility] CLIA [id number] [address] [place] [address] OF [facility] CLIA [id number] [address] [place] [address] FINAL DIAGNOSIS Normal [facility] Comment on above: Order Comment: Speci men Type: TISSUE SPECIMEN Ordering Facility: [facility] Address: [address] [place] [address] Result Comment: A. G allbladder, cholecystectomy: - Chronic cholecystitis. at 1545 EDT Performed By: #### 6 6121-5 #### [facility] CLIA [id number] LABORATORY CLIA [id number] [address] [place] [address] [place] FINAL PERFORMING LAB Normal [facility] Comment on above: Order Comment: Speci men Type: TISSUE SPECIMEN Ordering Facility: [facility] Address: [address] [place] [address] Result Comment: Diag nostic interpretation performed at: [facility], [address] [place] [address] CLIA# [id number] Small Engine Trainer: Galdino Middleton MD Performed By: #### 6 6121-5 #### [facility] CLIA [id number] [address] [place] [address] LABORATORY CLIA [id number] [address] [place] [address] STATES [facility] GROSS DESCRIPTION A. Gallbladder Normal [facility] Comment on above: Order Comment: Speci men Type: TISSUE SPECIMEN Ordering Facility: [facility] Address: [address] [place] [address] Result Comment: Rece ived in formalin designated gallbladder is a gallbladder which measures 6.5 x 2.5 x 2.4 cm. The serosal surface is au-pink smooth with a transmural defect on the hepatic surface measuring 1.8 x 1 cm. The lumen contains a scant amount of bile. No calculi are grossly appreciated. The cystic duct is patent. The mucosal surface is au-red and velvety. The wall averages 0.2 cm in thickness. The cystic duct shave margin and apprenticeship training representative sections of the fundus and body are submitted in cassette A1. BF February 15, 2025 2:03 PM Gross examination performed at [facility], [address] [place] [address] Performed By: #### 6 6121-5 #### [facility] CLIA [id number] [address] [place] [address] OF [facility] CLIA [id number] [address] [place] [address] [place] HISTORY PHYSICALon 5 HISTORY PHYSICAL HNO ID: [id number] Author: ELISA AMIN APRN.NEW ACCOUNTS CLERK Service: ? Author Type: Nurse Practitioner Type: H&P Filed: 02/13/2025 08:11 Note Text: [facility] HISTORY AND PHYSICAL EXAMINATION SERVICE DATE: 02/10/2025 SERVICE TIME: 1340 PRIMARY CARE PHYSICIAN: Juancarlos Cuenca, DO Assessment Patient has the following medical conditions which may affect machelle-operative course: ASHD (arteriosclerotic heart disease) S/P CABG x 4 Assessment: previous cardiac stents, none current since CABG 2016. Managed and monitored by cardiology Dr. Richardson. LASHELL 04/2024. Notes of non ischemic stress test from 2020. Denies any recent changes in cardiac health, CP, Shortness of Breath. Will obtain most recent EKG and ECHO from that office. Also had inpatient cardiac clearance completed 01/18/25 at [place] prior to ERCP stent placement with no contraindications. Takes plavix and ASA, has already stopped plavix per surgeons instructions (okay in the past for other procedures per patient with no complications), continue ASA prior to surgery. HLD (hyperlipidemia) Assessment: treated with statin HTN (hypertension) Assessment: stable on current medication regimen, advised to continue antihypertensives prior to surgery. Last 14 BP Last 14 Encounter BP Readings: Date: BP: 02/10/2025 107/63 02/09/2025 131/70 01/19/2025 119/77 01/17/2025 164/77 10/20/2024 143/78 10/15/2023 127/65 10/16/2022 143/66 01/27/2022 131/56 10/10/2021 137/65 10/10/2021 137/65 09/24/2021 108/70 09/13/2021 104/76 05/24/2021 94/60 05/21/2021 153/69 PAD (peripheral artery disease) Assessment: managed and monitored by vascular Dr. Robledo. Matthew. LASHELL 02/02/25. Denies any recent concerns or complications. Sleep apnea Assessment: CPAP compliant History of partial colectomy Assessment: hx of several years ago with anastomosis. stable. Denies any recent concerns or complications. Type 2 diabetes mellitus, without long-term current use of insulin (HCC) Assessment: Most recent A1c 8.3 (10/2024) reports that fasting glucose recently has been 90's to 100's. Takes daily glipizide. Within acceptable range per anesthesia guidelines and aware glucose must be below 200 morning of surgery. Aware of all pre-op instructions and will follow up A1c with PCP as soon as possible. Morbid obesity (HCC) Assessment: Current BMI 35. ANESTHESIA FINDINGS: Intubation History: No history of difficult intubation Significant Anesthesia Considerations: none Airway History: No history of difficult airway Guidry Activity Status Index: METS: Walk indoors, such as around the house (1.75 METs) Do light work around the house, such as dusting or washing dishes (2.70 METs) Take care of self; that is eating, dressing, bathing, using the toilet (2.75 METs) Walk a block or two on level ground (2.75 METs) DASI Score: 9.95 Patient denies any chest pain or undue shortness of breath with the above physical activity. Patient is limited most or all of the time (uses scooter, mobility device). Clinical Frailty Scale: 4. Apparently vulnerable STOP-Bang Score: STOP-Bang Score: (+BHUPENDRA CPAP compliant ) [id number] Score: Age: >=75 Sex: male CHF history: No Hypertension history: Yes Stroke/TIA/thromboemb olism history: No Vascular disease history: Yes Diabetes history: Yes [id number] Score: 5 ARISCAT Score: Age: 51-80 Preoperative SpO2: >=96% Respiratory infection in the last month: No Preoperative anemia: No Surgical incision: upper abdominal Duration of surgery: 2-3 hrs Emergency procedure: No ARISCAT Score: 34 I - PHYSICAL EVALUATION AIRWAY Patient intubated: No. Tracheostomy tube not present Mallampati: III. TM distance: >3 FB. Neck ROM: full ROM without neurological symptoms. Mouth opening: adequate. Short neck: no. Additional comments: +Stiff neck . Thick neck: no DENTAL Dental findings: teeth intact. II - ANESTHESIA PLAN Anesthetic plan additional comments: *PACC/TCI - anesthesia choice. Beta Joselo Monitoring Plan Post Procedure Analgesic Plan Prepared for Surgery: optimally prepared for surgery. Most recent cardiology records requested from Dr. Brooks's office. ADDENDUM 02/13 Most recent EKG and Echo received and in scanned documents. Patient is optimized from PACC standpoint. CONSULTS: Patient does not require consults for optimization at this time Planned Anesthetic: anesthesia choice The Following Tests/Procedures Have Been Initiated: Orders Placed This Encounter baclofen 10 mg tablet Sig: TAKE 1 TABLET BY MOUTH EVERYDAY AT BEDTIME NEEDED FOR MUSCLE SPASMS amLODIPine (NORVASC) 5 mg tablet Sig: Take 1 tablet by mouth once daily. traMADol (ULTRAM) 50 mg tablet Sig: take 1 tablet by mouth at bedtime for 30 days lisinopril (ZESTRIL) 30 mg tablet Si mg. carvedilol (COREG) 6.25 mg tablet (more content not included)... Normal [facility] CNOVon 02-09-2025 CNOV Office Visit ([facility] ) LIZZY YEE ([id number]) 1945 M [facility] Date Time Provider Department 02/09/25 11:40 AM JAY GONZALEZ [facility] During your visit today, we recorded the following information about you: Temperature Pulse Blood pressure Weight 97.1 degrees 56/minute 131/70 93.4 kg Height 1.651 m Jay Gonzalez MD 02/09/2025 12:55 PM Signed [facility] - Follow Up Visit Assessment/Plan: Lizzy Kathya Yee is an 79 year old male with a past medical history of CAD s/p 4v CABG (2016), PAD w/ R Popliteal Occlusion s/p Angioplasty, BHUPENDRA, HTN, HLD, Anxiety, Obesity, ventral hernia repair w/ mesh (Dr Gonzalez; 2021), Colonic Polyposis Syndrome s/p Subtotal colectomy (Dr Medina; 2021) who was transferred from the [facility] 01/18/2025 to [facility] for concerns of choledocholithiasis. He underwent an ERCP with Dr. El on 01/19/2025 that resulted in complete removal of the obstructing stone. He was discharged home 01/20/2025 and presents today for follow up and requires a laparoscopic cholecystectomy. The risks, benefits, and alternatives to laparoscopic cholecystectomy were discussed with the patient including the risk of bleeding, infection, damage to surrounding structures including the liver, bowel, and common bile duct, retained stone, and bile leak. All patient questions were answered to their satisfaction. Written consent was obtained and can be found under the [facility] Consent tab. - Consented for lap maria dolores, scheduled for 02/15 - Hold Plavix now, ok to continue baby aspirin - Hold HCTZ and Glipizide day of surgery - Will reach out to Dr. El to discuss timing of Plavix. Subjective: Kurt reports that he is feeling well. No abdominal pain at this point. No issues with p.o. intake or bowel function. We discussed the risks of recurrent choledocholithiasis if we do not proceed with a laparoscopic cholecystectomy. We talked about the operation and anticipated recovery as well as the slightly higher risk of converting to open given his extensive surgical history. Objective: AAO x 3, NAD Respirations on room air Abdomen soft, nondistended, nontender. Well-healed midline laparotomy scar. No tenderness in the right upper quadrant. Jay Gonzalez MD 02/09/25, 12:53 PM General Surgery [facility] Medical Decision Making: Problems: Low: Acute, uncomplicated illness or injury Data: Unique test result(s) reviewed: 2 Independent interpretation of test from other physician/QHCP Discussed management or test w/ external physician/QHCP/source Risk: Moderate: Decision on minor surgery w/ risk factors Medical Decision Making Level: 4 - Moderate Referring Provider: YANI EL [[id number]] Allergies As of Date: 02/09/2025 (No Known Allergies) Date Reviewed: 02/09/2025 Reviewed by: Sarah Osman OCCA - Fully Assessed Reason for Visit: Established Patient Follow-Up [[id number]] Cmt: ERCP with Dr. El on 01/19/2025 that resulted in complete removal of the obstructing stone. Primary Visit Diagnosis:Choledochol ithiasis [K80.50] Prescriptions as of 02/09/2025 - tramadol HCl (TRAMADOL ORAL) Take 50 [...] TABLET BY MOUTH EVERYDAY AT BEDTIME - pantoprazole DR (PROTONIX) 40 mg tablet [...] once daily. Problem List As Of Date 02/09/2025 Noted Resolved Polyp of colon [K63.5] 06/07/2021 ASHD (arteriosclerotic heart disease) [I25.10] Sleep apnea [G47.30] HTN (hypertension) [I10] HLD (hyperlipidemia) [E78.5] Type 2 diabetes mellitus, without long-term cur* Antiplatelet or antithrombotic long-term use [Z* Obesity (BMI 30-39.9) [E66.9] Polyposis coli [D13.91] 09/24/2021 09/30/2021 Obesity, Class II, BMI 35-39.9 [E66.812] 09/25/2021 Morbid obesity (HCC) [E66.01] 10/15/2023 Choledocholithiasis [K80.50] (more content not included)... [facility]HA [facility] (SHAUN) LIZZY YEE ([id number]) 1945 M T Date Time Provider Department 01/24/25 DEANGELO EL During your visit today, we recorded the following information about you: Nirmala Carmona RN 01/24/2025 9:40 AM Signed ----- Message from Deangelo El MD sent at 01/19/2025 12:14 PM EDT ----- Inpatient ERCP. 8 stones removed from CBD. SEMs placed. Still has GB-no stones? On Plavix. Repeat ERCP in 5 weeks for stent removal. Stop Plavix 3 days prior to procedure. MD Mathew Ramirez Dawn, RN 01/24/2025 9:41 AM Signed Grisel, please schedule ERCP as indicated below. Thank you, NILAM Jean Adm , Grisel II 01/30/2025 11:01 AM Signed Spoke with patient's , Paulette, scheduled ERCP W/STENT REMOVAL 02/24/2025 at [facility]. Grisel Cid II Gaby De La Torre 02/20/2025 12:37 PM Signed Spouse calling. Would like to go over prep, asking about medications. Water pill, boost, melatonin and he has been off the plavix. I explained that all are okay, no boost day of procedure, she is concerned because there is iron in boost. Please call to confirm meds are okay Maciej Combs RN 02/20/2025 3:30 PM Signed Spoke to the patient's , All questions answered to her satisfaction. NILAM Perez Nancy 02/20/2025 3:41 PM Signed Patient's spouse calling back stating she has further questions and would like a call back to discuss. (See below) Maciej Combs RN 02/20/2025 4:00 PM Signed Spoke to the patient's , All questions answered to her satisfaction. Maciej Combs RN Allergies As of Date: 01/24/2025 (No Known Allergies) Date Reviewed: 01/19/2025 Reviewed by: Sully Eric RN - Fully Assessed Reason for Visit: Follow Up [171] Cmt: Needs repeat ERCP in 5 weeks Primary Visit Diagnosis:Encounter for removal of biliary stent [Z46.89] Order(s):ERCP [GI18] Order #: [id number] FUTURE Prescriptions as of 02/20/2025 - clopidogrel (PLAVIX) 75 mg tablet Take 1 tablet by mouth once daily. HOLD UNTIL YOUR PROCEDURE WITH GASTROENTEROLOGY ON 02/24. DISCUSS WITH YOUR CONCRETE PIPE MAKER WHEN TO RESUME AFTER YOUR PROCEDURE. - docusate sodium (COLACE) 100 mg capsule Take 1 capsule by mouth two times a day for 7 days. - baclofen 10 mg tablet TAKE 1 TABLET BY MOUTH EVERYDAY AT BEDTIME NEEDED FOR MUSCLE SPASMS - amLODIPine (NORVASC) 5 mg tablet Take 1 tablet by mouth once daily. - traMADol (ULTRAM) 50 mg tablet take 1 tablet by mouth at bedtime for 30 days - lisinopril (ZESTRIL) 30 mg tablet 30 mg. - carvedilol (COREG) 6.25 mg tablet TAKE 1 TABLET BY MOUTH WITH BREAKFAST AND EVENING MEAL - carvedilol (COREG) 12.5 mg tablet 1 [...] TABLET BY MOUTH EVERYDAY AT BEDTIME - pantoprazole DR (PROTONIX) 40 mg tablet Take 40 mg by mouth once daily. - hydroCHLOROthiazide (HYDRODIURIL, ESIDRIX) 25 mg tablet Take 25 mg by mouth once daily. - atorvastatin (LIPITOR) 80 mg tablet Take 80 mg by mouth once daily. - aspirin 81 mg cap Take by mouth once daily. Problem List As Of Date 01/24/2025 Noted Resolved Polyp of colon [K63.5] 06/07/2021 ASHD (arteriosclerotic heart disease) [I25.10] Sleep apnea [G47.30] HTN (hypertension) [I10] HLD (hyperlipidemia) [E78.5] Type 2 diabetes mellitus, without long-term cur* Antiplatelet or antithrombotic long-term use [Z* Obesity (BMI 30-39.9) [E66.9] Polyposis coli [D13.91] 09/24/2021 09/30/2021 Obesity, Class II, BMI 35-39.9 [E66.812] 09/25/2021 Morbid obesity (HCC) [E66.01] 10/15/2023 Choledocholithiasis [K80.50] 01/18/2025 S/P CABG x 4 [Z95.1] 01/18/2025 PAD (peripheral artery disease) [I73.9] 01/18/2025 History of partial colectomy [Z90.49] 01/18/2025 Encounter Status:Closed by GRISEL CHRISTENSEN II on 01/30/25 Normal [facility] CBC panel Auto (Bld)on 01-20 WBC (Bld) [#/Vol] 7.92 10*3/uL Normal 3.70-11.00 [facility] Comment on above: Order Comment: Speci men Type: BLOOD SPECIMENOrdering Facility: [facility] Address: [address] [place] [address] Performed By: #### 5 8410-2 ####[facility] LABORATORYCLIA [id number] [place] [address] [place] Erythrocyte distribution width (RBC) [Ratio] 13.9 % Normal 11.5-15.0 [facility] Comment on above: Order Comment: Speci men Type: BLOOD SPECIMENOrdering Facility: [facility] Address: [address] [place] [address] Performed By: #### 5 8410-2 ####[facility] LABORATORYCLIA [id number] [address] Hematocrit (Bld) [Volume fraction] 38.7 % Low 39.0-51.0 [facility] Comment on above: Order Comment: Speci men Type: BLOOD SPECIMENOrdering Facility: [facility] Address: [address] [place] [address] Performed By: #### 5 8410-2 ####[facility] LABORATORYCLIA [id number] [address] [place] Hemoglobin (Bld) [Mass/Vol] 13.7 g/dL Normal 13.0-17.0 [facility] Comment on above: Order Comment: Speci men Type: BLOOD SPECIMENOrdering Facility: [facility] Address: [address] [place] [address] Performed By: #### 5 8410-2 ####[facility] LABORATORYCLIA [id number] [address] [place] MCH (RBC) [Entitic mass] 32.3 pg Normal 26.0-34.0 [facility] Comment on above: Order Comment: Speci men Type: BLOOD SPECIMENOrdering Facility: [facility] Address: [address] [place] [address] Performed By: #### 5 8410-2 ####[facility] LABORATORYCLIA [id number] [address] [place] MCHC (RBC) [Mass/Vol] 35.4 g/dL Normal 30.5-36.0 [facility] Comment on above: Order Comment: Speci men Type: BLOOD SPECIMENOrdering Facility: [facility] Address: [address] [place] [address] Performed By: #### 5 8410-2 ####[facility] LABORATORYCLIA [id number] [address] MCV (RBC) [Entitic vol] 91.3 fL Normal 80.0-100.0 [facility] Comment on above: Order Comment: Speci men Type: BLOOD SPECIMENOrdering Facility: [facility] Address: [address] [place] [address] Performed By: #### 5 8410-2 ####[facility] LABORATORYCLIA [id number] [place] [id number] [place] Nucleated RBC (Bld) [#/Vol] 10*3/uL Normal <0.01 [facility] Comment on above: Order Comment: Speci men Type: BLOOD SPECIMENOrdering Facility: [facility] Address: [address] [place] [address] Performed By: #### 5 8410-2 ####[facility] LABORATORYCLIA [id number] [place] [address] [place] Platelet mean volume (Bld) [Entitic vol] 9.6 fL Normal 9.0-12.7 [facility] Comment on above: Order Comment: Speci men Type: BLOOD SPECIMENOrdering Facility: [facility] Address: [address] [place] [address] Performed By: #### 5 8410-2 ####[facility] LABORATORYCLIA [id number] [place] [address] [place] Platelets (Bld) [#/Vol] 169 10*3/uL Normal 150-400 [facility] Comment on above: Order Comment: Speci men Type: BLOOD SPECIMENOrdering Facility: [facility] Address: [address] [place] [address] Performed By: #### 5 8410-2 ####[facility] LABORATORYCLIA [id number] [place] [id number] [place] RBC (Bld) [#/Vol] 4.24 10*6/uL Normal 4.20-6.00 [facility] Comment on above: Order Comment: Speci men Type: BLOOD SPECIMENOrdering Facility: [facility] Address: [address] [place] [address] Performed By: #### 5 8410-2 ####[facility] LABORATORYCLIA [id number] [place] [id number] [place] WBC (Bld) [#/Vol] 8.35 10*3/uL Normal 3.70-11.00 [facility] Comment on above: Order Comment: Speci men Type: BLOOD SPECIMENOrdering Facility: [facility] Address: [address] [place] [address] Performed By: #### 5 8410-2 ####[facility] LABORATORYCLIA [id number] [address] OF [facility] CNDSon 01-20-2025 CNDS HNO ID: [id number] Author: YANI LE MD Service: Hospital Medicine Author Type: Physician Type: Discharge Summary Filed: 01/20/2025 11:08 Note Text: DISCHARGE SUMMARY PATIENT NAME: Lizzy Yee ADMISSION DATE: 01/18/2025 DISCHARGE DATE: 01/20/2025 Attending Physician: Yani El MD Code Status: Not on file PCP: Juancarlos Cuenca DO Highest Readmission Risk Score: 12 The 30 day readmissions risk score is derived from an internally validated risk model which evaluates patient level characteristics, utilization history, medication orders and lab results up until the day of discharge. Patients with a score of 39 or above are considered highest risk for readmission. Specific patient level drivers will be listed at the bottom of the summary. TRANSITIONS OF CARE CRITICAL ISSUES: KAUR MEDICATION CHANGES: Please see discharge medication reconciliation for further detail INCIDENTAL OR ACTIONABLE FINDING (Last Refresh: 01/20/2025 11:00 AM) Test(s): CT ABD/PEL W IVCON REASON FOR HOSPITALIZATION/FINAL DIAGNOSIS: Choledocholithiasis HOSPITAL PROBLEMS: Active Hospital Problems Diagnosis POA Choledocholithiasis Yes S/P CABG x 4 Yes PAD (peripheral artery disease) Yes History of partial colectomy Yes Type 2 diabetes mellitus, without long-term current use of insulin (HCC) Yes HTN (hypertension) Yes HLD (hyperlipidemia) Yes Sleep apnea Yes Antiplatelet or antithrombotic long-term use Yes Resolved Hospital Problems No resolved problems to display. Hospital Course: HOSPITAL COURSE: Lizzy Yee is a 79 year old male presented with past medical history of CAD s/p 4v CABG (2016), PAD w/ R Popliteal Occlusion s/p Angioplasty (2022), BHUPENDRA, HTN, HLD, Anxiety, T2DM, Obesity, Colonic Polyposis Syndrome s/p Subtotal colectomy who presented to [facility] with abdominal pain with N/V and inability to keep medications down with SBP > 190. CT A/P obtained showing choledocholithiasis and given prior abdominal surgeries at [facility] decision to transfer patient. #Choledocholithiasis S/p ERCP 01/[address] El - The major papilla appeared normal. - Biliary papillary stenosis, benign. - The entire main bile duct was moderately dilated, with a stone causing an obstruction. - Choledocholithiasis was found. Complete removal was accomplished by biliary sphincterotomy and balloon extraction. - A biliary sphincterotomy was performed. - The biliary tree was swept. - One covered metal stent was placed into the common bile duct. #CAD s/p 4v CABG #PAD s/p Angioplasty #Hypertension #Hyperlipidemia Hold TEACHER VISUALLY IMPAIRED DAPT given pending surgical intervention. Most recent intervention in 2022. Continue TEACHER VISUALLY IMPAIRED Coreg, Lipitor; Hold HCTZ #T2DM Resume home medications on discharge #BHUPENDRA CPAP HS #Anxiety Zoloft On the day of discharge patient was seen and examined labs vitals reviewed denies chest pain or shortness of breath no nausea or vomiting has mild hyponatremia nonsymptomatic corrected 131 Case discussed with GI will hold Plavix for 5 days postdischarge patient will be discharged on low-fat diet to follow-up with surgery and GI as outpatient Physical exam General patient awake alert oriented x3 no acute distress Skin no rash no ulcers Heart S1-S2 no murmurs rubs or gallops Lungs diminished in the bases no wheezing Abdomen positive bowel sounds soft nontender Extremity positive pedal pulses, no edema Neurological exam cranial nerves II through XII intact sensation preserved OPERATIONS/PROCEDURE DURING THIS HOSPITALIZATION: * No surgery found * Consulting Teams During Hospitalization: Treatment Team: Attending Provider: Yani El MD Consulting: Brian Strong MD Consulting: Jay Gonzalez MD Primary Service: , [facility] Patient Condition at Discharge: Fair DISCHARGE DISPOSITION: Home/Self Care Diet: Low fat Activity: Resume pre-hospital activity Follow Up Appointments: Future Appointments Date Time Provider Department Center 10/24/2025 1:40 PM Jay Gonzalez MD [facility] [facility] No Known Allergies Discharge Medications: Medication List PAUSE taking these medications aspirin 81 mg Cap Wait to take this until: January 31, 2025 Morning clopidogrel 75 mg tablet Wait to take this until: January 24, 2025 Morning Commonly known as: PLAVIX CHANGE how you take these medications carvedilol 12.5 mg tablet Commonly known as: COREG 1 tablet by ORAL/FEEDING TUBE route q 12 HR. What changed: how to take this additional instructions CONTINUE taking these medications atorvastatin 80 mg tablet Commonly known as: LIPITOR B COMPLEX 1 ORAL CHOLECALCIFEROL (VITAMIN D3) PO CPAP FISH OIL PO glipiZIDE 5 mg tablet Commonly known as: GLUCOTROL hydroCHLOROthiazide 25 mg tablet loratadine 10 mg tablet Commonly known as: CLARITIN MAGNESIUM PO MULTI-VITAMIN ORAL pantoprazole DR 40 mg tablet Commonly known as: PROTONIX s (more content not included)... [facility] CONSULT PROGon 01-20-2025 CONSULT PROG HNO ID: [id number] Author: KWADWO TORREZ APRN.NEW ACCOUNTS CLERK Service: Gastroenterology Author Type: Nurse Practitioner Type: Consult Progress Note Filed: 01/20/2025 11:09 Note Text: Brief GI progress note: S:Pt w/ no complaints. No issues reported overnight. O: Gen:awake,follows commands CVS: S1,S2+ RS: CTA b/l ABD: soft, NT, BS+ EXT: no edema Recent Labs 01/20/25 0949 01/20/25 0627 01/19/25 16001/18/252 WBC 7.92 8.35 -- 9.27 HB 13.6 13.7 -- 14.9 HCT 39.9 38.7* -- 44.3 PLT 172 169 -- 225 INR -- 1.0 -- -- NA 129* -- 132* 136 K 3.9 -- 4.0 4.1 CHLOR 93* -- 96* 98 CO2 24 -- 22 24 BUN 15 -- 19 14 CREAT 1.14 -- 1.22 1.14 GLUC 213* -- 237* 183* CA 8.4* -- 8.4* 9.3 Recent Labs 01/20/25 0949 01/19/25 1601 01/18/252 TPROT 5.6* 5.7* 6.4 ALB 3.4* 3.4* 3.7* ALT 24 23 28 AST 26 23 31 ALKPHOS 94 92 103 TBILI 1.0 0.8 0.8 LIPASE -- -- 11* Diagnostics Reviewed: Assessment: Mr. Yee is a 79 year old male with PMH/PSHx CAD s/p 4v CABG (2017), PAD w/ R Popliteal Occlusion s/p Angioplasty (on plavix), BHUPENDRA, HTN, HLD, Anxiety, Obesity, Colonic Polyposis Syndrome s/p subtotal colectomy + repair of incarcerated ventral incisional hernia (09/2021) who presented to [facility] with abdominal pain with N/V and elevated BPs. CT A/P showing choledocholithiasis, therefore pt transferred to [facility] for further management. GI consulted for evaluation of choledocholithiasis. #Choledocholithiasis S/p ERCP 01/[address] El - The major papilla appeared normal. - Biliary papillary stenosis, benign. - The entire main bile duct was moderately dilated, with a stone causing an obstruction. - Choledocholithiasis was found. Complete removal was accomplished by biliary sphincterotomy and balloon extraction. - A biliary sphincterotomy was performed. - The biliary tree was swept. - One covered metal stent was placed into the common bile duct. -afebrile, HDS: ABD EXAM: benign -LABS: No leukocytosis, Hgb: 13.6, plt: 172; Na+:129, K+:3.9, Tbili: 1.0, Alk phos: 94, ALT: 24, AST: 26 Plan: -Tolerating advanced diet -Resume ASA/plavix in 5 days from procedure ~ 01/24 -Repeat ERCP in 5 weeks for stent removal (office to arrange), both pt and 01/19 via telephone verbalized understanding -okay for discharge from GI standpoint Kwadwo Torrez CNP Gastroenterology and Hepatology [phone] *Portions of Impression and Plan copied from previous day's GI Consult Note and updated as indicated* Normal [facility] Comp Metab 1999 Pnl SerPlOrd ered By: Outside Provider on 01-20-2025 Albumin [Mass/Vol] 3.4 g/dL Low 3.9-4.9 [facility] Comment on above: Order Comment: Speci men Type: BLOOD SPECIMENOrdering Facility: [facility] Address: [address] [place] [address] Performed By: #### 2 4323-8 ####ALFREDO LABORATORYCLIA [id number] [place] [id number] [place] ALP [Catalytic activity/Vol] 94 U/L 38-113 [facility] Comment on above: Order Comment: Speci men Type: BLOOD SPECIMENOrdering Facility: [facility] Address: [address] [place] [address] Performed By: #### 2 4323-8 ####ALFREDO LABORATORYCLIA [id number] [place] [address] [place] ALT [Catalytic activity/Vol] 24 U/L 10-54 [facility] Comment on above: Order Comment: Speci men Type: BLOOD SPECIMENOrdering Facility: [facility] Address: [address] [place] [address] Performed By: #### 2 4323-8 ####ALFREDO LABORATORYCLIA [id number] [place] [address] [place] AST [Catalytic activity/Vol] 26 U/L 14-40 [facility] Comment on above: Order Comment: Speci men Type: BLOOD SPECIMENOrdering Facility: [facility] Address: [address] [place] [address] Performed By: #### 2 4323-8 ####ALFREDO LABORATORYCLIA [id number] [place] [address] [place] Bilirubin [Mass/Vol] 1.0 mg/dL 0.2-1.3 [facility] Comment on above: Order Comment: Speci men Type: BLOOD SPECIMENOrdering Facility: [facility] Address: [address] [place] [address] Performed By: #### 2 4323-8 ####ALFREDO LABORATORYCLIA [id number] [place] [address] [place] Calcium [Mass/Vol] 8.4 mg/dL Low 8.5-10.2 [facility] Comment on above: Order Comment: Speci men Type: BLOOD SPECIMENOrdering Facility: [facility] Address: [address] [place] [address] Performed By: #### 2 4323-8 ####ALFREDO LABORATORYCLIA [id number] [place] [id number] [place] Chloride [Moles/Vol] 93 mmol/L Low 98-107 [facility] Comment on above: Order Comment: Speci men Type: BLOOD SPECIMENOrdering Facility: [facility] Address: [address] [place] [address] Performed By: #### 2 4323-8 ####ALFREDO LABORATORYCLIA [id number] [place] [id number] [place] CO2 [Moles/Vol] 24 mmol/L 22-30 [facility] Comment on above: Order Comment: Speci men Type: BLOOD SPECIMENOrdering Facility: [facility] Address: [facility] [place] [address] Performed By: #### 2 4323-8 ####ALFREDO LABORATORYCLIA [id number] [place] [address] [place] Creatinine [Mass/Vol] 1.14 mg/dL 0.73-1.22 [facility] Comment on above: Order Comment: Speci men Type: BLOOD SPECIMENOrdering Facility: [facility] Address: [facility] [place] [address] Performed By: #### 2 4323-8 ####ALFREDO LABORATORYCLIA [id number] [place] [id number] [place] Glucose [Mass/Vol] 213 mg/dL High 74-99 [facility] Comment on above: The [place] [employer] Association (ADA) provides guidance for cutoff values for fasting glucose and random glucose. The ADA defines fasting as no caloric intake for at least 8 hours. Fasting plasma glucose results between 100 to 125 mg/dL indicate increased risk for diabetes (prediabetes).Fasting plasma glucose results greater than or equal to 126 mg/dL meet the criteria for diagnosis of diabetes. In the absence of unequivocal hyperglycemia, results should be confirmed by repeat testing. In a patient with classic symptoms of hyperglycemia or hyperglycemic crisis, random plasma glucose results greater than or equal to 200 mg/dL meet the criteria for diagnosis of diabetes.Reference: Standards of Medical Care in Diabetes 2016, [place] [employer]. Diabetes Care. 2016.39(Suppl 1). Order Comment: Magdalene reece Type: BLOOD SPECIMENOrdering Facility: [facility] Address: [address] [place] [address] Result Comment: The [place] [employer] (ADA) provides guidance for cutoff values for fasting glucose and random glucose. The ADA defines fasting as no caloric intake for at least 8 hours. Fasting plasma glucose results between 100 to 125 mg/dL indicate increased risk for diabetes (prediabetes). Fasting plasma glucose results greater than or equal to 126 mg/dL meet the criteria for diagnosis of diabetes. In the absence of unequivocal hyperglycemia, results should be confirmed by repeat testing. In a patient with classic symptoms of hyperglycemia or hyperglycemic crisis, random plasma glucose results greater than or equal to 200 mg/dL meet the criteria for diagnosis of diabetes. Reference: Standards of Medical Care in Diabetes 2016, [place] [employer]. Diabetes Care. 2016.39(Suppl 1). Performed By: #### 2 4323-8 ####ALFREDO LABORATORYCLIA [id number] [place] [address] [place] Potassium [Moles/Vol] 3.9 mmol/L 3.7-5.1 [facility] Comment on above: Order Comment: Magdalene reece Type: BLOOD SPECIMENOrdering Facility: [facility] Address: [address] [place] [address] Performed By: #### 2 4323-8 ####ALFREDO LABORATORYCLIA [id number] [place] [address] [place] Sodium [Moles/Vol] 129 mmol/L Low 136-144 [facility] Comment on above: Order Comment: Magdalene reece Type: BLOOD SPECIMENOrdering Facility: [facility] Address: [address] [place] [address] Performed By: #### 2 4323-8 ####ALFREDO LABORATORYCLIA [id number] [place] [address] [place] Urea nitrogen [Mass/Vol] 15 mg/dL 9-24 [facility] Comment on above: Order Comment: Magdalene reece Type: BLOOD SPECIMENOrdering Facility: [facility] Address: [address] [place] [address] Performed By: #### 2 4323-8 ####ALFREDO LABORATORYCLIA [id number] [place] [address] [place] Comprehensive metabolic 2000 panelon 01-20-2025 Creatinine and Glomerular filtration rate.predicted panel (S/P/Bld) 65 mL/min/1.73m??? Normal >=60 [facility] Comment on above: Order Comment: Magdalene reece Type: BLOOD SPECIMENOrdering Facility: [facility] Address: [address] [place] [address] Result Comment: Bisi mated Glomerular Filtration Rate (eGFR) is calculated using the 2020 CKD-EPI creatinine equation. This equation utilizes serum creatinine, sex, and age as parameters. The creatinine assay has traceable calibration to isotope dilution-mass spectrometry. Refer to KDIGO guidelines for clinical interpretation. In patients with unstable renal function, e.g. those with acute kidney injury, the eGFR may not accurately reflect actual GFR. Performed By: #### 2 4323-8 ####ALFREDO LABORATORYCLIA [id number] [place] [address] [place] Erythrocyte distribution wid th [Ratio] by Automated countOrdered By: Outside Provider on 01-20-2025 Erythrocyte distribution width (RBC) [Ratio] 13.6 % 11.5-15.0 [facility] Comment on above: Order Comment: Magdalene reece Type: BLOOD SPECIMENOrdering Facility: [facility] Address: [address] [place] [address] Performed By: #### 5 8410-2 ####ALFREDO LABORATORYCLIA [id number] [place] [address] [place] Erythrocytes [#/volume] in B lood by Automated countOrdered By: Outside Provider on 01-20-2025 RBC (Bld) [#/Vol] 4.37 10*6/uL 4.20-6.00 [facility] Comment on above: Order Comment: Monalisai men Type: BLOOD SPECIMENOrdering Facility: [facility] Address: [address] [place] [address] Performed By: #### 5 8410-2 ####RIGORANI LABORATORYCLIA [id number] [place] [address] [place] Hematocrit [Volume Fraction] of Blood by Automated countOrdered By: Outside Provider on 01-20-2025 Hematocrit (Bld) [Volume fraction] 39.9 % 39.0-51.0 [facility] Comment on above: Order Comment: Magdalene reece Type: BLOOD SPECIMENOrdering Facility: [facility] Address: [address] [place] [address] Performed By: #### 5 8410-2 ####ALFREDO LABORATORYCLIA [id number] [place] [id number] [place] Hemoglobin [Mass/volume] in BloodOrdered By: Outside Provider on 01-20-2025 Hemoglobin (Bld) [Mass/Vol] 13.6 g/dL 13.0-17.0 [facility] Comment on above: Order Comment: Magdalene reece Type: BLOOD SPECIMENOrdering Facility: [facility] Address: [address] [place] [address] Performed By: #### 5 8410-2 ####ALFREDO LABORATORYCLIA [id number] [place] [address] [place] INR in Platelet poor plasma by Coagulation assayOrdered By: Deangelo El on 01-20-2025 INR Coag (PPP) [Relative time] 1.0 {INR} 0.9-1.3 [facility] Comment on above: Vitamin K Antagonist (VKA) Therapeutic Range: INR 2 to 3 (Target INR of 2.5)Note: For patients treated with VKA drugs, such as warfarin, the [place] [employer] 2012 Guideline recommends a therapeutic INR range of 2 to 3 (target INR of 2.5). This recommendation includes high-risk patients with antiphospholipid syndrome with previous arterial or venous thromboembolism, current-generation mechanical or bioprosthetic aortic heart valve replacement.Note: Patients with mechanical aortic valve replacement and additional risk factors for thromboembolic events (atrial fibrillation, previous thromboembolism, LV dysfunction, hypercoagulable conditions) or an older generation mechanical AVR (i.e., ball in-Cage) or any mechanical MVR should have a INR therapeutic range of 2.5 to 3.5 (target INR of 3).Nat LEDEZAM, et al. Chest 2012, 141:7S-47SAlverto MAXWELL et al. [facility] 2017, 70: 252-289 Order Comment: Magdalene reece Type: BLOOD SPECIMENOrdering Facility: [facility] Address: [address] [place] [address] Result Comment: Angelique min K Antagonist (VKA) Therapeutic Range: INR 2 to 3 (Target INR of 2.5) Note: For patients treated with VKA drugs, such as warfarin, the [place] [employer] 2012 Guideline recommends a therapeutic INR range of 2 to 3 (target INR of 2.5). This recommendation includes high-risk patients with antiphospholipid syndrome with previous arterial or venous thromboembolism, current-generation mechanical or bioprosthetic aortic heart valve replacement. Note: Patients with mechanical aortic valve replacement and additional risk factors for thromboembolic events (atrial fibrillation, previous thromboembolism, LV dysfunction, hypercoagulable conditions) or an older generation mechanical AVR (i.e., ball in-Cage) or any mechanical MVR should have a INR therapeutic range of 2.5 to 3.5 (target INR of 3). Nat LEDEZMA, et al. Chest 2012, 141:7S-47S Alverto MAXWELL et al. [facility] 2017, 70: 252-289 Performed By: #### 3 4528-0 ####OSBORNE LABORATORYIA [id number] [place] [address] [place] Leukocytes [#/volume] correc maru for nucleated erythrocytes in Blood by Automated counOrdered By: Outside Provider on 01-20-2025 WBC corrected for nucl RBC Auto (Bld) [#/Vol] 7.92 k/uL 3.70-11.00 [facility] MCH [Entitic mass] by Automa maru countOrdered By: Outside Provider on 01-20-2025 MCH (RBC) [Entitic mass] 31.1 pg 26.0-34.0 [facility] Comment on above: Order Comment: Magdalene reece Type: BLOOD SPECIMENOrdering Facility: [facility] Address: [address] [place] [address] Performed By: #### 5 8410-2 ####ALFREDO LABORATORYCLIA [id number] [place] [id number] [place] [facility] MCHC [Mass/volume] by Automa maru countOrdered By: Outside Provider on 01-20-2025 MCHC (RBC) [Mass/Vol] 34.1 g/dL 30.5-36.0 [facility] Comment on above: Order Comment: Speci men Type: BLOOD SPECIMENOrdering Facility: [facility] Address: [address] [place] [address] Performed By: #### 5 8410-2 ####[facility] LABORATORYCLIA [id number] [place] [address] [facility] MCV [Entitic volume] by Auto mated countOrdered By: Outside Provider on 01-20-2025 MCV (RBC) [Entitic vol] 91.3 fL 80.0-100.0 [facility] Comment on above: Order Comment: Magdalene reece Type: BLOOD SPECIMENOrdering Facility: [facility] Address: [address] [place] [address] Performed By: #### 5 8410-2 ####[facility] LABORATORYCLIA [id number] [address] No Panel InformationOrdered By: Outside Provider on 01-20-2025 Estimated GFR (CKD-EPI) 65 mL/min/1.73m??? >=60 [facility] Comment on above: Estimated Glomerular Filtration Rate (eGFR) is calculated using the 2020 CKD-EPI creatinine equation. This equation utilizes serum creatinine, sex, and age as parameters. The creatinine assay has traceable calibration to isotope dilution-mass spectrometry. Refer to KDIGO guidelines for clinical interpretation. In patients with unstable renal function, e.g. those with acute kidney injury, the eGFR may not accurately reflect actual GFR. Nucleated erythrocytes [#/vo lume] in Blood by Automated countOrdered By: Outside Provider on 01-20-2025 Nucleated RBC (Bld) [#/Vol] 10*3/uL <0.01 [facility] Comment on above: Order Comment: Magdalene reece Type: BLOOD SPECIMENOrdering Facility: [facility] Address: [address] [place] [address] Performed By: #### 5 8410-2 ####ALFREDO LABORATORYCLIA [id number] [place] [address] [place] Platelet mean volume [Entiti c volume] in Blood by Automated countOrdered By: Outside Provider on 01-20-2025 Platelet mean volume (Bld) [Entitic vol] 9.2 fL 9.0-12.7 [facility] Comment on above: Order Comment: Speci men Type: BLOOD SPECIMENOrdering Facility: [facility] Address: [address] [place] [address] Performed By: #### 5 8410-2 ####ALFREDO LABORATORYCLIA [id number] [place] [address] [place] Platelets [#/volume] in Bloo d by Automated countOrdered By: Outside Provider on 01-20-2025 Platelets (Bld) [#/Vol] 172 10*3/uL 150-400 [facility] Comment on above: Order Comment: Speci men Type: BLOOD SPECIMENOrdering Facility: [facility] Address: [address] [place] [address] Performed By: #### 5 8410-2 ####ALFREDO LABORATORYCLIA [id number] [place] [id number] [place] Protein [Mass/volume] in Ser um or PlasmaOrdered By: Outside Provider on 01-20-2025 Protein [Mass/Vol] 5.6 g/dL Low 6.3-8.0 [facility] Comment on above: Order Comment: Speci men Type: BLOOD SPECIMENOrdering Facility: [facility] Address: [address] [place] [address] Performed By: #### 2 4323-8 ####ALFREDO LABORATORYCLIA [id number] [place] [address] [place] Prothrombin time (PT)Ordered By: Deangelo El on 01-20-2025 PT Coag (PPP) [Time] 11.6 s 9.7-13.0 [facility] Comment on above: Order Comment: Speci men Type: BLOOD SPECIMENOrdering Facility: [facility] Address: [address] [place] [address] [place] [address] Performed By: #### 3 4528-0 ####LAFREDO LABORATORYCLIA [id number] [address] [place] Serum or plasma anion gap de terminationOrdered By: Outside Provider on 01-20-2025 Anion gap [Moles/Vol] 12 mmol/L 03-03 [facility] Comment on above: Order Comment: Speci men Type: BLOOD SPECIMENOrdering Facility: [facility] Address: [address] [place] [address] Performed By: #### 2 4323-8 ####ALFREDO LABORATORYCLIA [id number] [place] [address] [place] ALLIED HEALTHon 01-19-2025 ALLIED HEALTH HNO ID: [id number] Author: MISTY BACON RT(R) Service: ? Author Type: Technologist Type: Allied Health Filed: 01/19/2025 00:52 Note Text: Radiology Service Progress Note DATE OF SERVICE: January 19, 2025 TIME: 12:51 AM PATIENT IDENTITY VERIFICATION COMPLETED USING TWO (2) STANDARD IDENTIFIERS: Name and Date of confirmed by patient verbally and Name and Date of confirmed by identification band. FALL SCREENING: Has the patient had 2 falls in the last year or 1 fall with injury or currently using an Ambulatory Assistive Device (Walker, Cane, Wheelchair, Crutches, etc.)? Inpatient: Screened on floor PATIENT GENDER DATA: Assigned male at PATIENT RELEVANT IMPLANT DATA REVIEWED: Not Applicable PATIENT PRESENTS WITH AN IMPLANTABLE OR ATTACHED SKOOG PATCHING MACHINE OPERATOR: No ALLERGIES: Reviewed and unchanged CONTRAST ALLERGY: NO. EXAM: CT -CONTRAST INDUCED NEPHROPATHY RISK FACTORS: Patient age > 60 years CREATININE: Creatinine Date Value Ref Range Status 01/18/2025 1.14 0.73 - 1.22 mg/dL Final 10/01/2021 1.32 (H) 0.73 - 1.22 mg/dL Final 10/01/2021 1.51 (H) 0.73 - 1.22 mg/dL Final Estimated Glomerular Filtration Rate Date Value Ref Range Status 01/18/2025 65 >=60 mL/min/1.73m? Final Comment: Estimated Glomerular Filtration Rate (eGFR) is calculated using the 2020 CKD-EPI creatinine equation. This equation utilizes serum creatinine, sex, and age as parameters. The creatinine assay has traceable calibration to isotope dilution-mass spectrometry. Refer to KDIGO guidelines for clinical interpretation. In patients with unstable renal function, e.g. those with acute kidney injury, the eGFR may not accurately reflect actual GFR. eGFR- Date Value Ref Range Status 09/13/2021 >60 Final P.O.C.T. RESULTS: N/A January 19, 2025 TREATMENT: N/A PERIPHERAL IV DATA: Inpatient - refer to LDA documentation RADIOLOGY DEPARTMENT: CT; Exam(s) Completed: Abdomen/Pelvis SIGNATURE: RT Quan(R) PATIENT NAME: Lizzy Yee DATE: January 19, 2025 TIME: 12:51 AM Normal [facility] ANES POSTPROC EVALon 025 ANES POSTPROC EVAL HNO ID: [id number] Author: WILLIAM ORR MD Service: ? Author Type: Anesthesiologist Type: Anesthesia Postprocedure Evaluation Filed: 01/19/2025 16:58 Note Text: POST ANESTHESIA EVALUATION NOTE : 1945 Procedure Summary Date: 01/19/25 Room / Location: [facility] Endoscopy - ENDO Anesthesia Start: 1120 Anesthesia Stop: 1208 Procedure: ERCP Diagnosis: (Abnormal abdominal CT) Scheduled Providers: Deangelo El MD Responsible Provider: William Orr MD Anesthesia Type: general ASA Status: 3 Anesthesia Type: general Airway Type: ETT Last Vitals Vitals Value Taken Time BP 129/65 01/19/25 1547 Temp 36.4 ?C (97.5 ?F) 01/19/25 1415 Pulse 69 01/19/25 1547 Resp 16 01/19/25 1415 SpO2 95 % 01/19/25 1547 Post Anesthesia Patient Status Patient Evaluation: PACU. PACU/ICU Patient Condition: stable. Anticipated Disposition: inpatient floor planned admission. Neurological Status: aware and responsive. Pulmonary Status: breathing comfortably on supplemental oxygen Airway Control: returned to baseline unsupported. Cardiovascular Status: stable. Pain Management: clinically adequate Postoperative Hydration: acceptable. Intraoperative Events: no significant anesthesia events Post Operative Nausea/Vomiting Status: no significant post operative nausea or vomiting Recommendation: continue current plan of care. Anesthesia Observations No Documentation SIGNATURE: William Orr MD PATIENT NAME: Lizzy Yee DATE: January 19, 2025 TIME: 4:58 PM CSN: [id number] Normal [facility] ANES PRE-OPon 01-19-2025 ANES PRE-OP HNO ID: [id number] Author: WILLIAM ORR MD Service: ? Author Type: Anesthesiologist Type: Anesthesia Preprocedure Evaluation Filed: 01/19/2025 11:05 Note Text: ANESTHESIOLOGY DAY OF SURGERY NOTE : 1945 Procedure Information Date/Time: 01/19/25 1130 Scheduled providers: Deangelo El MD; William Orr MD; Laura Macdonald APRN.COLUMNIST Procedure: ERCP Location: [facility] Endoscopy - ENDO Estimated body mass index is 38.27 kg/m? as calculated from the following: Height as of 01/27/22: 165.1 cm (5' 5 ). Weight as of 01/27/22: 104.3 kg (230 lb). Most recent hematocrit and potassium results: Hematocrit 44.3 01/18/2025 Potassium 4.1 01/18/2025 Relevant Problems ANESTHESIA (+) Sleep apnea CARDIO (+) ASHD (arteriosclerotic heart disease) (+) HTN (hypertension) (+) PAD (peripheral artery disease) (+) S/P CABG x 4 ENDO (+) Type 2 diabetes mellitus, without long-term current use of insulin (HCC) PULMONARY (+) Sleep apnea I - PHYSICAL EVALUATION AIRWAY Patient intubated: No. Tracheostomy tube not present Mallampati: III. TM distance: <3 FB. Neck ROM: full ROM without neurological symptoms. Mouth opening: adequate. Short neck: no. Thick neck: yes DENTAL Dental findings: teeth intact. Additional exam findings: no II - ANESTHESIA PLAN ASA Score: 3 Anesthetic Plan: general Airway type: ETT The patient is not a current smoker. NPO Status: adequate Beta Joselo Administration of chronic beta joselo medication not planned. Reasons for not administering beta joselo perioperatively: other Monitoring Plan Monitoring plan: standard ASA. Post Procedure Analgesic Plan Postoperative analgesic plan: parenteral or oral opioids. Informed Consent Anesthetic risks, benefits, alternatives, personnel and consent discussed: yes. Patient / Responsible Democrat agrees to proceed: yes Patient / Surrogate agrees to blood products: Yes DNR status not reviewed with patient and/or family prior to surgery. Significant changes in the patient condition since the History and Physical, not otherwise documented in primary service progress note: no. Potential Anesthesia issues that may suggest increased risk of complications or contraindication to planned procedure: potential difficult intubation. Vitals Value Taken Time BP 157/98 01/19/25 1058 Pulse 85 01/19/25 1058 Resp 15 01/19/25 1058 Temp 36.6 ?C (97.9 ?F) 01/19/25 1058 SpO2 93 % 01/19/25 1058 Facility-Administered Medications as of 01/19/2025 Medication Dose Route Frequency atorvastatin 80 mg tab(s) (LIPITOR) 80 mg ORAL DAILY carvedilol 6.25 mg tab(s) (COREG) 6.25 mg ORAL q [address] 40 mg tab(s) (PROTONIX) 40 mg ORAL DAILY sertraline 100 mg tab(s) (ZOLOFT) 100 mg ORAL AT BEDTIME cetirizine 10 mg tab(s) (ZYRTEC) 10 mg ORAL DAILY NaCl 0.9% iv flush bag 20 mL INTRAVENOUS PRN acetaminophen 650 mg tab(s) (TYLENOL) 650 mg ORAL q 6 H PRN ondansetron 4 mg tab(s) (ZOFRAN) 4 mg ORAL q 6 H PRN Or ondansetron (PF) 4 mg injection (ZOFRAN) 4 mg INTRAVENOUS q 6 H PRN iv contrast (radiology procedure) INTRAVENOUS DIRECTED PRN iv contrast (radiology procedure) INTRAVENOUS DIRECTED PRN Outpatient Medications as of 01/19/2025 Medication Sig glipiZIDE (GLUCOTROL) 5 mg tablet once daily. pantoprazole DR (PROTONIX) 40 mg tablet Take 40 mg by mouth once daily. hydroCHLOROthiazide (HYDRODIURIL, ESIDRIX) 25 mg tablet Take 25 mg by mouth once daily. atorvastatin (LIPITOR) 80 mg tablet Take 80 mg by mouth once daily. clopidogrel (PLAVIX) 75 mg tablet Take 75 mg by mouth once daily. tramadol HCl (TRAMADOL ORAL) Take 50 mg by mouth. loratadine (CLARITIN) 10 mg tablet Take 10 mg by mouth. MULTI-VITAMIN ORAL Take by mouth once daily. ZINC ORAL Take by mouth once daily. ascorbic acid (VITAMIN C ORAL) Take by mouth once daily. vitamin B complex (B COMPLEX 1 ORAL) Take by mouth once daily. docosahexaenoic acid/epa (FISH OIL ORAL) Take by mouth once daily. CHOLECALCIFEROL, VITAMIN D3, ORAL Take by mouth once daily. MAGNESIUM ORAL Take by mouth once daily. CPAP daily at bedtime. sertraline (ZOLOFT) 100 mg tablet TAKE 1 TABLET BY MOUTH EVERYDAY AT BEDTIME metFORMIN (GLUCOPHAGE) 1,000 mg tablet Take 1,000 mg by mouth twice daily with meals. (Patient not taking: Reported on 10/15/2023) aspirin 81 mg cap Take by mouth once daily. I have interviewed and examined the patient. I have reviewed the medical record and/or the pre-anesthesia evaluation, pertinent labs, and test results. This contains updated information obtained within 48 hours of Surgery/Procedure. SIGNATURE: William Orr MD PATIENT NAME: Lizzy Yee DATE: January 19, 2025 TIME: 11:05 AM CSN: [id number] [facility] CONSULTon 01-19-2025 CONSULT HNO ID: [id number] Author: KWADWO TORREZ APRN.CNP Service: Gastroenterology Author Type: Nurse Practitioner Type: Consults Filed: 01/19/2025 10:11 Note Text: CONSULT: GASTROENTEROLOGY SERVICE SERVICE DATE: 01/19/2025 SERVICE TIME: 7:59 AM REASON FOR CONSULT: choledocholithiasis REQUESTING PHYSICIAN: Dr. El PRIMARY CARE PHYSICIAN: DO Cielo Barry Mr. Yee is a 79 year old male with PMH/PSHx CAD s/p 4v CABG (2016), PAD w/ R Popliteal Occlusion s/p Angioplasty (on plavix), BHUPENDRA, HTN, HLD, Anxiety, Obesity, Colonic Polyposis Syndrome s/p subtotal colectomy + repair of incarcerated ventral incisional hernia (09/2021) who presented to [facility] with abdominal pain with N/V and elevated BPs. CT A/P showing choledocholithiasis, therefore pt transferred to [facility] for further management. GI consulted for evaluation of choledocholithiasis. Pt reports has been feeling off for some time, yesterday after attending cousin's symptoms worsened which were primarily nausea w/ vomiting and feeling lightheaded. Reports always cold, denies fever. Denies chest pain, sob, dysphagia, odynophagia, dyspepsia, abdominal pain, melena, hematochezia, or weight changes. On plavix, last use Thursday. Denies NSAID use. Remote hx of nicotine/etoh use 30-40+ years ago. Reports family hx of father with CRC and brother with tongue cancer. Hx of Colon, no hx of EGD. Previous GI work up: 06/07/[address] Medina - Polyposis of the colon Impression/Recommenda tions Mr. Yee is a 79 year old male with PMH/PSHx CAD s/p 4v CABG (2016), PAD w/ R Popliteal Occlusion s/p Angioplasty (on plavix), BHUPENDRA, HTN, HLD, Anxiety, Obesity, Colonic Polyposis Syndrome s/p subtotal colectomy + repair of incarcerated ventral incisional hernia (09/2021) who presented to [facility] with abdominal pain with N/V and elevated BPs. CT A/P showing choledocholithiasis, therefore pt transferred to [facility] for further management. GI consulted for evaluation of choledocholithiasis. #Abnormal CT A/P, suspected choledocholithiasis (POA: Yes) #Nausea, resolved #Antiplatelet or antithrombotic long-term use (POA: Yes) -afebrile, HDS; ABD EXAM: soft, non-tender, BS + -On plavix, last dose 01/15 per patient -LABS 01/18: No leukocytosis, hgb: 14.9, plt: 225; Tbili: 0.8, Alk phos: 103, ALT: 28, AST: 31 -CT A/P: 1. Mild thickening/enhancemen t of the lower rectum could be due underdistention or possibly proctitis in the appropriate clinical setting. Recommend correlation with any recent colonoscopies to exclude the presence of an underlying lesion. 2. Dilated common bile duct with tiny hyperdensities in the proximal common bile duct likely representing choledocholithiasis. -7/ 3 RUQ US:1. No stones or sludge in the gallbladder. No imaging evidence of acute cholecystitis. 2. Dilated CBD again seen at 1 cm, without intrahepatic ductal dilatation. Suboptimal visualization precludes evaluation for possible choledocholithiasis noted on the prior study. PLAN: -NPO -Supportive care -Repeat AM labs, CBC+CMP+INR; add lipase to 7/2 labs -Tentatively plan on ERCP with Dr. El later this afternoon, procedure/risks/benef its/complications d/t pt, agreeable to proceed as warranted - For Endoscopic Procedures: Monitor labs and keep K 3.5-5, INR < 1.5, PLT > 50, Hgb > 7. Type and screen updated. -Surgery following -will follow along #Sleep apnea (POA: Yes) #HTN (hypertension) (POA: Yes) #HLD (hyperlipidemia) (POA: Yes) #Type 2 diabetes mellitus, without long-term current use of insulin (HCC) (POA: Yes) #S/P CABG x 4 (POA: Yes) #PAD (peripheral artery disease) (POA: Yes) #History of partial colectomy (POA: Yes) Case d/w staff: Dr. Strong + Dr. El FUNCTIONAL STATUS: Independent PAST MEDICAL HISTORY Diagnosis Date ASHD (arteriosclerotic heart disease) BPH with obstruction/lower urinary tract symptoms Gastroesophageal reflux disease without esophagitis Generalized anxiety disorder History of colonic polyps HTN (hypertension) Mixed hyperlipidemia Morbid obesity (HCC) Sleep apnea Ventral hernia PAST SURGICAL HISTORY Procedure Laterality Date CABG (4) VEIN GRAFTS AND ARTERIAL GRAFT(S) 2017 COLONOSCOPY CYSTOSCOPY 2016 LAPAROSCOPIC HEMICOLECTOMY 2017 villoglandular polyp PAST SURGICAL HISTORY OF Right rt hemicolectomy PAST SURGICAL HISTORY OF Right total knee arthroplasty REPAIR INCISIONAL HERNIA,REDUCIBLE 2012 REVISE MEDIAN N/CARPAL TUNNEL SURG TOTAL HIP REPLACEMENT 2008 TRANSURETHRAL ELEC-SURG PROSTATECTOM 2016 TRANSURETHRAL ELEC-SURG PROSTATECTOM VASECTOMY VASECTOMY FAMILY HISTORY Problem Relation Age of Onset Hypertension Mother Heart disease Mother Hypertension Father Social History Tobacco Use Smoking status: Former Types: Cigars Quit date: 1994 Years since quittin.5 Smokeless tobacco: Never Tobacco comm (more content not included)... Normal [facility] CONSULT HNO ID: [id number] Author: JUSTIN COLE MD Service: General Surgery Author Type: Physician Type: Consults Filed: 01/19/2025 19:43 Note Text: GENERAL SURGERY DEPARTMENT INITIAL CONSULT Patient Name: Lizzy Yee PRIMARY CARE PHYSICIAN: Juancarlos Cuenca DO CONSULTED FOR: Choledocholithiasis HPI: This is a 79 year old male with PMHx of CAD s/p 4v CABG (2016), PAD w/ R Popliteal Occlusion s/p Angioplasty, BHUPENDRA, HTN, HLD, Anxiety, Obesity, ventral hernia repair w/ mesh (Dr Gonzalez; 2021), Colonic Polyposis Syndrome s/p Subtotal colectomy (Dr Medina; 2021) who was transferred from [facility] for further workup and management. General surgery were consulted for c/f choledocholithiasis. Patient reports that he initially presented to [place] for increased lethargy, nausea, one episode of bilious emesis and PO intolerance with SBP >190. He denies any abdominal pain, fevers, chills, Shortness of Breath, diarrhea/constipation , jaundice, or weight loss/decreased appetite but describes multiple prior episodes of nausea and mild abdominal pain which self resolved in the past 6-8 months. He had a workup done at an OSH back in October for a similar issue which showed gallstones however patient has never followed up on those results. CT A/P obtained at OSH showing choledocholithiasis (only report available at this time) and given prior abdominal surgeries at [facility] decision to transfer patient to . On arrival to , patient was afebrile and hemodynamically stable, he was normotensive and asymptomatic. Labs showing WBC 9.27, Hg 14.9, Tbili 0.8, ALT 28, AST 31. Repeat CT AP w/IVCON showing dilated common bile duct with tiny hyperdensities in the proximal common bile duct likely representing choledocholithiasis. PAST MEDICAL HISTORY: PAST MEDICAL HISTORY Diagnosis Date ASHD (arteriosclerotic heart disease) BPH with obstruction/lower urinary tract symptoms Gastroesophageal reflux disease without esophagitis Generalized anxiety disorder History of colonic polyps HTN (hypertension) Mixed hyperlipidemia Morbid obesity (HCC) Sleep apnea Ventral hernia PAST SURGICAL HISTORY: PAST SURGICAL HISTORY Procedure Laterality Date CABG (4) VEIN GRAFTS AND ARTERIAL GRAFT(S) 2017 COLONOSCOPY CYSTOSCOPY 2016 LAPAROSCOPIC HEMICOLECTOMY 2017 villoglandular polyp PAST SURGICAL HISTORY OF Right rt hemicolectomy PAST SURGICAL HISTORY OF Right total knee arthroplasty REPAIR INCISIONAL HERNIA,REDUCIBLE 2013 REVISE MEDIAN N/CARPAL TUNNEL SURG TOTAL HIP REPLACEMENT 2008 TRANSURETHRAL ELEC-SURG PROSTATECTOM 2016 TRANSURETHRAL ELEC-SURG PROSTATECTOM VASECTOMY VASECTOMY FAMILY HISTORY: FAMILY HISTORY Problem Relation Age of Onset Hypertension Mother Heart disease Mother Hypertension Father SOCIAL HISTORY: Social History Tobacco Use Smoking status: Former Types: Cigars Quit date: 1994 Years since quittin.5 Smokeless tobacco: Never Tobacco comments: Quit 15+ years Substance Use Topics Alcohol use: Not Currently Drug use: Never MEDICATIONS: Prior to Admission Medications: glipiZIDE (GLUCOTROL) 5 mg tabletonce daily. Disp: Rfl: pantoprazole DR (PROTONIX) 40 mg tabletTake 40 mg by mouth once daily.Disp: Rfl: hydroCHLOROthiazide (HYDRODIURIL, ESIDRIX) 25 mg tabletTake 25 mg by mouth once daily.Disp: Rfl: atorvastatin (LIPITOR) 80 mg tabletTake 80 mg by mouth once daily.Disp: Rfl: clopidogrel (PLAVIX) 75 mg tabletTake 75 mg by mouth once daily.Disp: Rfl: tramadol HCl (TRAMADOL ORAL)Take 50 mg by mouth.Disp: Rfl: carvedilol (COREG) 12.5 mg tablet1 tablet by ORAL/FEEDING TUBE route q 12 HR.Disp: 60 tabletRfl: 0 (Patient taking differently: Take 12.5 mg by mouth q 12 HR. 1/2 tab twice a day ) tamsulosin (FLOMAX) 0.4 mgTake 1 capsule by mouth once daily.Disp: 30 capsuleRfl: 0 loratadine (CLARITIN) 10 mg tabletTake 10 mg by mouth.Disp: Rfl: MULTI-VITAMIN ORALTake by mouth once daily.Disp: Rfl: ZINC ORALTake by mouth once daily.Disp: Rfl: ascorbic acid (VITAMIN C ORAL)Take by mouth once daily.Disp: Rfl: vitamin B complex (B COMPLEX 1 ORAL)Take by mouth once daily.Disp: Rfl: docosahexaenoic acid/epa (FISH OIL ORAL)Take by mouth once daily.Disp: Rfl: CHOLECALCIFEROL, VITAMIN D3, ORALTake by mouth once daily.Disp: Rfl: MAGNESIUM ORALTake by mouth once daily.Disp: Rfl: CPAPdaily at bedtime.Disp: Rfl: sertraline (ZOLOFT) 100 mg tabletTAKE 1 TABLET BY MOUTH EVERYDAY AT BEDTIMEDisp: Rfl: metFORMIN (GLUCOPHAGE) 1,000 mg tabletTake 1,000 mg by mouth twice daily with meals. Disp: Rfl: (Patient not taking: Reported on 10/15/2023) aspirin 81 mg capTake by mouth once daily. Disp: Rfl: ALLERGIES: ALLERGIES No Known Allergies COMPLETE REVIEW OF SYSTEMS: GENERAL: no weight loss, malaise or fevers. HEENT: Negative for new headaches, vision changes, dysphagia RESPIRATORY: Negative for cough, wheezing or shortness of vishnu (more content not included)... Normal [facility] CT ABD/PEL W IVCONon 025 CT ABD/PEL W IVCON * * *Final Report* * * DATE OF EXAM: Jan 19 2025 1:03AM [facility]VC 0530 - CT ABD/PEL W IVCON / PROCEDURE REASON: Nausea/vomiting * * * * Physician Interpretation * * * * EXAMINATION: CT ABDOMEN AND PELVIS WITH IV CONTRAST CLINICAL HISTORY: Nausea and vomiting TECHNIQUE: CT of the abdomen and pelvis was performed using standard technique, scanning from just above the dome of the diaphragm to the symphysis pubis. MQ: CTAP_3 Contrast: IV: 100 ml of Omnipaque 350 : ml of CT Radiation dose: Integrated Dose-length product (DLP) for this visit = 1215 mGy*cm. CT Dose Reduction Employed: Automated exposure control (AEC) COMPARISON: CT abdomen and pelvis without contrast 10/11/2022. RESULT: Liver: No mass. Biliary: Common bile duct is dilated measuring up to 1 cm. Tiny hyperdensities layer within the common bile duct proximally. No radiopaque gallstones within the gallbladder. Spleen: No mass. Multiple calcified granulomas. No splenomegaly. Pancreas: No mass or duct dilation. Adrenals: No mass. Kidneys: No mass, calculus or hydronephrosis. GI tract: Subtotal colectomy. Nonformed stool in the distal colon. Mild thickening/enhancemen t of the lower rectum. Lymph nodes: No abdominal or pelvic lymphadenopathy. Mesentery/Peritoneum: No ascites or mass. Retroperitoneum: No mass. Vasculature: - Abdominal aorta and iliac arteries: Atherosclerotic calcifications without aneurysm. - Celiac and SMA: Patent - Portal venous system (SMV, splenic vein, portal vein and branches): Patent. - Hepatic veins: Patent. Pelvis: Urinary bladder is under distended. Bones/Soft Tissues: Multilevel degenerative changes. Right hip arthroplasty. Lower thorax: Subpleural reticulation. Right lower lobe calcified granuloma. Subcarinal calcified lymph node. Localizer images: No additional findings. IMPRESSION: 1. Mild thickening/enhancemen t of the lower rectum could be due underdistention or possibly proctitis in the appropriate clinical setting. Recommend correlation with any recent colonoscopies to exclude the presence of an underlying lesion. 2. Dilated common bile duct with tiny hyperdensities in the proximal common bile duct likely representing choledocholithiasis. ACTIONABLE RESULT: FOLLOW-UP Acuity: Actionable Findings: Digestive Tract Routing Code: GI_1 Recommendation: Unlisted Recommendation (see report) Time Frame: Additional evaluation as described in the impression COMMUNICATION: Results will be communicated with the ordering provider via [employer] staff message or phone message by [facility] within 2 business days of report finalization. --END OF FINDING-- Supervisor [facility]: DANIEL Transcribe Date/Time: Jan 19 2025 4:30A Dictated by : JANIE CASTILLO MD This examination was interpreted and the report reviewed and electronically signed by: JANIE CASTILLO MD on Jan 19 2025 4:55AM EST [id number] ACTIONABLE Invalid Interpretation Code [facility] Comp Metab 2000 Pnl SerPlOrd ered By: Deangelo El on 01-19-2025 Albumin [Mass/Vol] 3.4 g/dL Low 3.9-4.9 [facility] Comment on above: Order Comment: Speci men Type: BLOOD SPECIMENOrdering Facility: [facility] Address: [address] [place] [address] Performed By: #### 2 4323-8 ####[facility] LABORATORYCLIA [id number] [place] [address] [place] ALP [Catalytic activity/Vol] 92 U/L 38-113 [facility] Comment on above: Order Comment: Speci men Type: BLOOD SPECIMENOrdering Facility: [facility] Address: [address] [place] [address] Performed By: #### 2 4323-8 ####[facility] LABORATORYCLIA [id number] [place] [address] [place] ALT [Catalytic activity/Vol] 23 U/L 10-54 [facility] Comment on above: Order Comment: Speci men Type: BLOOD SPECIMENOrdering Facility: [facility] Address: [address] [place] [address] Performed By: #### 2 4323-8 ####[facility] LABORATORYCLIA [id number] [place] [id number] [place] AST [Catalytic activity/Vol] 23 U/L 14-40 [facility] Comment on above: Order Comment: Speci men Type: BLOOD SPECIMENOrdering Facility: [facility] Address: [address] [place] [address] Performed By: #### 2 4323-8 ####[facility] LABORATORYCLIA [id number] [place] [address] [place] Bilirubin [Mass/Vol] 0.8 mg/dL 0.2-1.3 [facility] Comment on above: Order Comment: Speci men Type: BLOOD SPECIMENOrdering Facility: [facility] Address: [address] [place] [address] Performed By: #### 2 4323-8 ####AL[facility] LABORATORYCLIA [id number] [place] [address] [place] Calcium [Mass/Vol] 8.4 mg/dL Low 8.5-10.2 [facility] Comment on above: Order Comment: Speci men Type: BLOOD SPECIMENOrdering Facility: [facility] Address: [address] [place] [address] Performed By: #### 2 4323-8 ####AL[facility] LABORATORYCLIA [id number] [place] [id number] [place] Chloride [Moles/Vol] 96 mmol/L Low 98-107 [facility] Comment on above: Order Comment: Speci men Type: BLOOD SPECIMENOrdering Facility: [facility] Address: [address] [place] [address] Performed By: #### 2 4323-8 ####AL[facility] LABORATORYCLIA [id number] [place] [address] [place] CO2 [Moles/Vol] 22 mmol/L 22-30 [facility] Comment on above: Order Comment: Speci men Type: BLOOD SPECIMENOrdering Facility: [facility] Address: [address] [place] [address] Performed By: #### 2 4323-8 ####[facility] LABORATORYCLIA [id number] [place] [id number] [place] Creatinine [Mass/Vol] 1.22 mg/dL 0.73-1.22 [facility] Comment on above: Order Comment: Speci men Type: BLOOD SPECIMENOrdering Facility: [facility] Address: [address] [place] [address] Performed By: #### 2 4323-8 ####[facility] LABORATORYCLIA [id number] [place] [id number] [place] Glucose [Mass/Vol] 237 mg/dL High 74-99 [facility] Comment on above: The [place] Di[employer] Association (ADA) provides guidance for cutoff values for fasting glucose and random glucose. The ADA defines fasting as no caloric intake for at least 8 hours. Fasting plasma glucose results between 100 to 125 mg/dL indicate increased risk for diabetes (prediabetes).Fasting plasma glucose results greater than or equal to 126 mg/dL meet the criteria for diagnosis of diabetes. In the absence of unequivocal hyperglycemia, results should be confirmed by repeat testing. In a patient with classic symptoms of hyperglycemia or hyperglycemic crisis, random plasma glucose results greater than or equal to 200 mg/dL meet the criteria for diagnosis of diabetes.Reference: Standards of Medical Care in Diabetes 2016, [place] [employer]. Diabetes Care. 2016.39(Suppl 1). Order Comment: Speci men Type: BLOOD SPECIMENOrdering Facility: [facility] Address: [address] [place] [address] Result Comment: The [place] Diabetes Association (ADA) provides guidance for cutoff values for fasting glucose and random glucose. The ADA defines fasting as no caloric intake for at least 8 hours. Fasting plasma glucose results between 100 to 125 mg/dL indicate increased risk for diabetes (prediabetes). Fasting plasma glucose results greater than or equal to 126 mg/dL meet the criteria for diagnosis of diabetes. In the absence of unequivocal hyperglycemia, results should be confirmed by repeat testing. In a patient with classic symptoms of hyperglycemia or hyperglycemic crisis, random plasma glucose results greater than or equal to 200 mg/dL meet the criteria for diagnosis of diabetes. Reference: Standards of Medical Care in Diabetes 2016, [place] [employer]. Diabetes Care. 2016.39(Suppl 1). Performed By: #### 2 4323-8 ####[facility] LABORATORYCLIA [id number] [place] [id number] [place] Potassium [Moles/Vol] 4.0 mmol/L 3.7-5.1 [facility] Comment on above: Order Comment: Speci men Type: BLOOD SPECIMENOrdering Facility: [facility] Address: [address] [place] [address] Performed By: #### 2 4323-8 ####[facility] LABORATORYCLIA [id number] [place] [id number] [place] Sodium [Moles/Vol] 132 mmol/L Low 136-144 [facility] Comment on above: Order Comment: Speci men Type: BLOOD SPECIMENOrdering Facility: [facility] Address: [address] [place] [address] Performed By: #### 2 4323-8 ####[facility] LABORATORYCLIA [id number] [place] [id number] [place] Urea nitrogen [Mass/Vol] 19 mg/dL 9-24 [facility] Comment on above: Order Comment: Speci men Type: BLOOD SPECIMENOrdering Facility: [facility] Address: [address] [place] [address] Performed By: #### 2 4323-8 ####[facility] LABORATORYCLIA [id number] [place] [id number] [place] Comprehensive metabolic 2000 panelon 01-19-2025 Creatinine and Glomerular filtration rate.predicted panel (S/P/Bld) 60 mL/min/1.73m??? Normal >=60 [facility] Comment on above: Order Comment: Speci men Type: BLOOD SPECIMENOrdering Facility: [facility] Address: [address] [place] [address] Result Comment: Bisi mated Glomerular Filtration Rate (eGFR) is calculated using the 2020 CKD-EPI creatinine equation. This equation utilizes serum creatinine, sex, and age as parameters. The creatinine assay has traceable calibration to isotope dilution-mass spectrometry. Refer to KDIGO guidelines for clinical interpretation. In patients with unstable renal function, e.g. those with acute kidney injury, the eGFR may not accurately reflect actual GFR. Performed By: #### 2 4323-8 ####[facility] LABORATORYCLIA [id number] [address] ERCPon 01-19-2025 ERCP [facility] Gastrointestinal Endoscopy Patient Name: Lizzy Yee Procedure Date: 01/19/2025 11:11 AM Date of : 1945 Admit Type: Inpatient Age: 79 Room: [place] [address] Gender: Male Note Status: Finalized Attending MD: Deangelo El MD, [id number] Procedure: ERCP Indications: Abnormal abdominal CT, Suspected bile duct stone(s), For therapy of bile duct stone(s), LFT's normal. RUQ US did not showe gallstones or sludge. RUQ US today: 1. No stones or sludge in the gallbladder. No imaging evidence of acute cholecystitis. 2. Dilated CBD again seen at 1 cm, without intrahepatic ductal dilatation. Providers: Deangelo El MD, Sheron Arevalo RN, Vilma Mcrae RN (Assisting Nurse), Giselle Pereira RN (Assisting Nurse) Patient Profile: This is an 79 year old male. Refer to note in patient chart for documentation of history and physical. Referring Physician: Kwadwo Quick (nabil Torrez (Referring MD) Medicines: General Anesthesia Complications: No immediate complications. Procedure: Pre-Anesthesia Assessment: - Prior to the procedure, a History and Physical was performed, and patient medications and allergies were reviewed. The patient's tolerance of previous anesthesia was also reviewed. The risks and benefits of the procedure and the sedation options and risks were discussed with the patient. All questions were answered, and informed consent was obtained. Prior Anticoagulants: The patient has taken Plavix (clopidogrel), last dose was 4 days prior to procedure. ASA Grade Assessment: III - A patient with severe systemic disease. After reviewing the risks and benefits, the patient was deemed in satisfactory condition to undergo the procedure. After obtaining informed consent, the scope was passed under direct vision. Throughout the procedure, the patient's blood pressure, pulse, and oxygen saturations were monitored continuously. The Endoscope was introduced through the mouth, and advanced to the duodenum and used to inject contrast into the bile duct. The ERCP was accomplished without difficulty. The patient tolerated the procedure well. Moderate Sedation: General anesthesia Total Procedure Duration: 0 hours 12 minutes 27 seconds Findings: The major papilla was normal. The bile duct was deeply cannulated with the long-nosed traction autotome with guidewire. Contrast was injected. I personally interpreted the bile duct images. There was brisk flow of contrast through the ducts. Image quality was excellent. Contrast extended to the entire biliary tree. The main bile duct was moderately dilated and diffusely dilated, with a stone causing an obstruction. The largest diameter was 10 mm. The biliary orifice was stenotic. This appeared benign. A 12 mm biliary sphincterotomy was made with a monofilament long nose sphincterotome using blended current. There was no post-sphincterotomy bleeding. To discover objects, the biliary tree was swept with a 10 mm balloon starting at the bifurcation. Many stones were removed. No stones remained. 8 stones removed from distal CBD. All pigmneted and black. Measuring 5-7 mm in sized. GB did not opacified nor the cystic duct. One 10 mm by 6 cm transpapillary covered metal stent with no external flaps and no internal flaps was placed 4 cm into the common bile duct. Bile flowed through the stent. The stent was in good position. Viable stent was deployed with proximal 2 cm containg drainage holes. PD was never cannulated or injected. Impression: - The major papilla appeared normal. - Biliary papillary stenosis, benign. - The entire main bile duct was moderately dilated, with a stone causing an obstruction. - Choledocholithiasis was found. Complete removal was accomplished by biliary sphincterotomy and balloon extraction. - A biliary sphincterotomy was performed. - The biliary tree was swept. - One covered metal stent was placed into the common bile duct. Recommendation: - Avoid aspirin and nonsteroidal anti-inflammatory medicines for 1 week. - [facility]. - Continue present medications. - Observe patient's clinical course following today's ERCP with therapeutic intervention. - Plavix can be restarted in 5 days. - Repeat ERCP in 5 weeks to remove stent. Procedure Code(s): --- Professional --- 10143, Endoscopic retrograde cholangiopancreatogra phy (ERCP); with placement of endoscopic stent into biliary or pancreatic duct, including pre- and post-dilation and guide wire passage, when performed, including sphincterotomy, when performed, each stent 24719, Endoscopic retrograde cholangiopancreatogra phy (ERCP); with removal of calculi/debris from biliary/pancreatic duct(s) Diagnosis Code(s): --- Professional --- K83.1, Obstruction of bile duct K80.51, Calculus of bile duct without cholangitis or cholecys (more content not included)... Normal [facility] No Panel InformationOrdered By: Deangelo El on 01-19-2025 Estimated GFR (CKD-EPI) 60 mL/min/1.73m??? >=60 [facility] Comment on above: Estimated Glomerular Filtration Rate (eGFR) is calculated using the 2020 CKD-EPI creatinine equation. This equation utilizes serum creatinine, sex, and age as parameters. The creatinine assay has traceable calibration to isotope dilution-mass spectrometry. Refer to KDIGO guidelines for clinical interpretation. In patients with unstable renal function, e.g. those with acute kidney injury, the eGFR may not accurately reflect actual GFR. Protein [Mass/volume] in Ser um or PlasmaOrdered By: Deangelo El on 01-19-2025 Protein [Mass/Vol] 5.7 g/dL Low 6.3-8.0 [facility] Comment on above: Order Comment: Speci men Type: BLOOD SPECIMENOrdering Facility: [facility] Address: [address] [place] [address] Performed By: #### 2 4323-8 ####[facility] LABORATORYCLIA [id number] [place] [address] [place] Serum or plasma anion gap de terminationOrdered By: Deangelo El on 01-19-2025 Anion gap [Moles/Vol] 14 mmol/L 8-15 [facility] Comment on above: Order Comment: Speci men Type: BLOOD SPECIMENOrdering Facility: [facility] Address: [facility] [place] [address] Performed By: #### 2 4323-8 ####[facility] LABORATORYCLIA [id number] [place] [address] [place] US ABD RIGHT UPPER QUADRANTo n 01-19-2025 US ABD RIGHT UPPER QUADRANT * * *Final Report* * * DATE OF EXAM: Jan 19 2025 9:07AM FVU 1032 - US ABD RIGHT UPPER QUADRANT / PROCEDURE REASON: Nausea/vomiting * * * * Physician Interpretation * * * * EXAMINATION: RIGHT UPPER QUADRANT ULTRASOUND CLINICAL HISTORY: Nausea/vomiting TECHNIQUE: Sonography of the right upper quadrant was performed. Images were obtained and stored in a permanent archive. MQ: [id number] COMPARISON: CT dated 01/19/2025 RESULT: Pancreas: Poorly visualized Liver: Echotexture: Normal, homogeneous. Echogenicity: Normal Surface contour: Smooth Lesions: None. Biliary: No intrahepatic biliary duct dilation. CBD: 1.0 cm at the hilum. Suboptimal visualization. Gallbladder: No stones or sludge identified. No imaging evidence of acute cholecystitis. Right Kidney: No hydronephrosis. Ascites: None. IMPRESSION: 1. No stones or sludge in the gallbladder. No imaging evidence of acute cholecystitis. 2. Dilated CBD again seen at 1 cm, without intrahepatic ductal dilatation. Suboptimal visualization precludes evaluation for possible choledocholithiasis noted on the prior study. Supervisor Hospitality House: [facility] Transcribe Date/Time: Jan 19 2025 9:11A Dictated by : BRYSON ARCHIBALD MD This examination was interpreted and the report reviewed and electronically signed by: BRYSON ARCHIBALD MD on Jan 19 2025 9:18AM EST [id number] Normal [facility] XR ERCP READ ONLYon 01-20-20 25 XR ERCP READ ONLY * * *Final Report* * * DATE OF EXAM: Jan 19 2025 11:57AM FVO 5565 - XR ERCP READ ONLY / PROCEDURE REASON: abd pain- intra op ercp * * * * Physician Interpretation * * * * TECHNIQUE: C-arm fluoroscopy for an ERCP HISTORY: Abdominal pain COMPARISON STUDY: None available. RESULT: C-arm fluoroscopy was provided to the referring physician for an ERCP submitted for interpretation are spot images demonstrating filling defects consistent with choledocholithiasis. The patient is status post the sphincterotomy and stent placement. Please refer to the procedural notes. Fluoroscopic Radiation Summary: Plane A, Air Kerma: 39.1 mGy Plane B, Air Kerma: 0.0 mGy Dose Area Product (DAP): Fluoro time: 2:19 min:sec IMPRESSION: Procedural planning. Supervisor [facility]: [facility] Transcribe Date/Time: Jan 19 2025 1:28P Dictated by : KAYLA MCLAIN MD This examination was interpreted and the report reviewed and electronically signed by: KAYLA MCLAIN MD on Jan 19 2025 1:29PM EST [id number] Normal [facility] Basophils Auto (Bld) [#/Vol] Ordered By: Caleb Mcduffie on 01-18-2025 Basophils (Bld) [#/Vol] 0.0 10 3/uL 0.0-0.1 [facility] Basophils/100 WBC Auto (Bld) Ordered By: Caleb Mcduffie on 01-18-2025 Basophils/100 WBC (Bld) 0.3 % 0.2-2.0 [facility] CBC panel Auto (Bld)on 01-18 WBC (Bld) [#/Vol] 9.27 10*3/uL Normal 3.70-11.00 [facility] Comment on above: Order Comment: Speci men Type: BLOOD SPECIMENOrdering Facility: [facility] Address: [address] [place] [address] Performed By: #### 5 8410-2 ####[facility] LABORATORYCLIA [id number] [place] [address] [place] Comp Metab 2000 Pnl SerPlOrd ered By: Outside Provider on 01-18-2025 Albumin [Mass/Vol] 3.7 g/dL Low 3.9-4.9 [facility] Comment on above: Order Comment: Speci men Type: BLOOD SPECIMENOrdering Facility: [facility] Address: [address] [place] [address] Performed By: #### 3 040-3, ####[facility] LABORATORYCLIA [id number] [place] [address] [place] ALP [Catalytic activity/Vol] 103 U/L 38-113 [facility] Comment on above: Order Comment: Speci men Type: BLOOD SPECIMENOrdering Facility: [facility] Address: [address] [place] [address] Performed By: #### 3 040-3, ####[facility] LABORATORYCLIA [id number] [place] [id number] [place] ALT [Catalytic activity/Vol] 28 U/L 10-54 [facility] Comment on above: Order Comment: Speci men Type: BLOOD SPECIMENOrdering Facility: [facility] Address: [address] [place] [address] Performed By: #### 3 040-3, ####[facility] LABORATORYCLIA [id number] [place] [id number] [place] AST [Catalytic activity/Vol] 31 U/L 14-40 [facility] Comment on above: Order Comment: Speci men Type: BLOOD SPECIMENOrdering Facility: [facility] Address: [address] [place] [address] Performed By: #### 3 040-3, ####[facility] LABORATORYCLIA [id number] [place] [id number] [place] Bilirubin [Mass/Vol] 0.8 mg/dL 0.2-1.3 [facility] Comment on above: Order Comment: Speci men Type: BLOOD SPECIMENOrdering Facility: [facility] Address: [address] [place] [address] Performed By: #### 3 040-3, ####[facility] LABORATORYCLIA [id number] [place] [id number] [place] Calcium [Mass/Vol] 9.3 mg/dL 8.5-10.2 [facility] Comment on above: Order Comment: Speci men Type: BLOOD SPECIMENOrdering Facility: [facility] Address: [address] [place] [address] Performed By: #### 3 040-3, ####[facility] LABORATORYCLIA [id number] [place] [id number] [place] Chloride [Moles/Vol] 98 mmol/L 98-107 [facility] Comment on above: Order Comment: Speci men Type: BLOOD SPECIMENOrdering Facility: [facility] Address: [address] [place] [address] Performed By: #### 3 040-3, ####[facility] LABORATORYCLIA [id number] [place] [id number] [place] CO2 [Moles/Vol] 24 mmol/L 22-30 [facility] Comment on above: Order Comment: Speci men Type: BLOOD SPECIMENOrdering Facility: [facility] Address: [address] [place] [address] Performed By: #### 3 040-3, ####[facility] LABORATORYCLIA [id number] [place] [id number] [place] Creatinine [Mass/Vol] 1.14 mg/dL 0.73-1.22 [facility] Comment on above: Order Comment: Speci men Type: BLOOD SPECIMENOrdering Facility: [facility] Address: [address] [place] [address] [place] [address] Performed By: #### 3 040-3, ####[facility] LABORATORYCLIA [id number] [place] [id number] [place] Glucose [Mass/Vol] 183 mg/dL High 74-99 [facility] Comment on above: The [place] [employer] Association (ADA) provides guidance for cutoff values for fasting glucose and random glucose. The ADA defines fasting as no caloric intake for at least 8 hours. Fasting plasma glucose results between 100 to 125 mg/dL indicate increased risk for diabetes (prediabetes).Fasting plasma glucose results greater than or equal to 126 mg/dL meet the criteria for diagnosis of diabetes. In the absence of unequivocal hyperglycemia, results should be confirmed by repeat testing. In a patient with classic symptoms of hyperglycemia or hyperglycemic crisis, random plasma glucose results greater than or equal to 200 mg/dL meet the criteria for diagnosis of diabetes.Reference: Standards of Medical Care in Diabetes 2016, [place] [employer]. Diabetes Care. 2016.39(Suppl 1). Order Comment: Magdalene reece Type: BLOOD SPECIMENOrdering Facility: [facility] Address: [address] [place] [address] Result Comment: The [place] [employer] (ADA) provides guidance for cutoff values for fasting glucose and random glucose. The ADA defines fasting as no caloric intake for at least 8 hours. Fasting plasma glucose results between 100 to 125 mg/dL indicate increased risk for diabetes (prediabetes). Fasting plasma glucose results greater than or equal to 126 mg/dL meet the criteria for diagnosis of diabetes. In the absence of unequivocal hyperglycemia, results should be confirmed by repeat testing. In a patient with classic symptoms of hyperglycemia or hyperglycemic crisis, random plasma glucose results greater than or equal to 200 mg/dL meet the criteria for diagnosis of diabetes. Reference: Standards of Medical Care in Diabetes 2016, [place] [employer]. Diabetes Care. 2016.39(Suppl 1). Performed By: #### 3 040-3, 56533-5 ####[facility] LABORATORYCLIA [id number] [place] [address] [place] Potassium [Moles/Vol] 4.1 mmol/L 3.7-5.1 [facility] Comment on above: Order Comment: Magdalene reece Type: BLOOD SPECIMENOrdering Facility: [facility] Address: [address] [place] [address] Performed By: #### 3 040-3, 77521-5 ####[facility] LABORATORYCLIA [id number] [place] [id number] [place] Sodium [Moles/Vol] 136 mmol/L 136-144 [facility] Comment on above: Order Comment: Magdalene reece Type: BLOOD SPECIMENOrdering Facility: [facility] Address: [address] [place] [address] Performed By: #### 3 040-3, 68480-3 ####[facility] LABORATORYCLIA [id number] [place] [address] [place] Urea nitrogen [Mass/Vol] 14 mg/dL 9 [facility] Comment on above: Order Comment: Magdalene reece Type: BLOOD SPECIMENOrdering Facility: [facility] Address: [address] [place] [address] Performed By: #### 3 040-3, 81546-5 ####[facility] LABORATORYCLIA [id number] [place] [address] [place] Comprehensive metabolic 2000 panelon 01-18-2025 Creatinine and Glomerular filtration rate.predicted panel (S/P/Bld) 65 mL/min/1.73m??? Normal >=60 [facility] Comment on above: Order Comment: Magdalene reece Type: BLOOD SPECIMENOrdering Facility: [facility] Address: [address] [place] [address] Result Comment: Bisi mated Glomerular Filtration Rate (eGFR) is calculated using the 2020 CKD-EPI creatinine equation. This equation utilizes serum creatinine, sex, and age as parameters. The creatinine assay has traceable calibration to isotope dilution-mass spectrometry. Refer to KDIGO guidelines for clinical interpretation. In patients with unstable renal function, e.g. those with acute kidney injury, the eGFR may not accurately reflect actual GFR. Performed By: #### 3 040-3, 67200-7 ####[facility] LABORATORYCLIA [id number] [place] [address] [place] Eosinophils/100 WBC Auto (Bl d)Ordered By: Caleb Mcduffie on 01-18-2025 Eosinophils/100 WBC (Bld) 1.5 % 0.9-7.0 [facility] Erythrocyte distribution wid th [Ratio] by Automated countOrdered By: Outside Provider on 01-18-2025 Erythrocyte distribution width (RBC) [Ratio] 14.5 % 11.5-15.0 [facility] Comment on above: Order Comment: Magdalene reece Type: BLOOD SPECIMENOrdering Facility: [facility] Address: [address] [place] [address] Performed By: #### 5 8410-2 ####[facility] LABORATORYCLIA [id number] [place] [address] [place] Erythrocytes [#/volume] in B lood by Automated countOrdered By: Outside Provider on 01-18-2025 RBC (Bld) [#/Vol] 4.82 10*6/uL 4.20-6.00 [facility] Comment on above: Order Comment: Speci men Type: BLOOD SPECIMENOrdering Facility: [facility] Address: [address] [place] [address] Performed By: #### 5 8410-2 ####[facility] LABORATORYCLIA [id number] [address] [place] Estimated glomerular filtrat ion rate (GFR) non- AmericanOrdered By: Juancarlos Cuenca on 01-18-2025 GFR/1.73 sq M.predicted among non-blacks MDRD (S/P/Bld) [Vol rate/Area] mL/min/{1.73_m2} >=60 mL/min/1.73 m 2 [facility] Globulin Calc (S) [Mass/Vol] Ordered By: Juancarlos Cuenca on 01-18-2025 Globulin (S) [Mass/Vol] 3.1 g/dL F [facility] HISTORY PHYSICALon HISTORY PHYSICAL HNO ID: [id number] Author: JOSE MARIA LAW DO Service: Hospital Medicine Author Type: Physician Type: H&P Filed: 01/18/2025 18:55 Note Text: DEPARTMENT OF HOSPITAL MEDICINE HISTORY AND PHYSICAL EXAM SERVICE DATE: 01/18/2025 SERVICE TIME: 6:55 PM Primary Care Physician: Juancarlos Cuenca DO NIGHT AND WEEKEND COVERAGE: [facility] COVERAGE:TEAM 4-7: Days [phone] please secure chat or page Jose Maria Law DO for patient issues. Nights [phone] please page [phone]. Subjective CHIEF COMPLAINT: Abdominal Pain w/ NV HPI: This is a 79 year old male who presents with PMH CAD s/p 4v CABG (2017), PAD w/ R Popliteal Occlusion s/p Angioplasty, BHUPENDRA, HTN, HLD, Anxiety, Obesity, Colonic Polyposis Syndrome s/p Subtotal colectomy who presented to [facility] with abdominal pain with N/V and inability to keep medications down with SBP > 190. CT A/P obtained showing choledocholithiasis and given prior abdominal surgeries at [facility] decision to transfer patient. Thursday began having nausea and vomiting x2. Denies ever having abdominal pain. States he was told back in October there was an issue with gallbladder/stones however does not know what the plan was regarding. Currently asymptomatic and wanting to eat dinner. Understands plans. PAST MEDICAL HISTORY Diagnosis Date ASHD (arteriosclerotic heart disease) BPH with obstruction/lower urinary tract symptoms Gastroesophageal reflux disease without esophagitis Generalized anxiety disorder History of colonic polyps HTN (hypertension) Mixed hyperlipidemia Morbid obesity (HCC) Sleep apnea Ventral hernia PAST SURGICAL HISTORY Procedure Laterality Date CABG (4) VEIN GRAFTS AND ARTERIAL GRAFT(S) 2017 COLONOSCOPY CYSTOSCOPY 2016 LAPAROSCOPIC HEMICOLECTOMY 2017 villoglandular polyp PAST SURGICAL HISTORY OF Right rt hemicolectomy PAST SURGICAL HISTORY OF Right total knee arthroplasty REPAIR INCISIONAL HERNIA,REDUCIBLE 2012 REVISE MEDIAN N/CARPAL TUNNEL SURG TOTAL HIP REPLACEMENT 2007 TRANSURETHRAL ELEC-SURG PROSTATECTOM 2016 TRANSURETHRAL ELEC-SURG PROSTATECTOM VASECTOMY VASECTOMY FAMILY HISTORY Problem Relation Age of Onset Hypertension Mother Heart disease Mother Hypertension Father Social History Tobacco Use Smoking status: Former Types: Cigars Quit date: 1994 Years since quittin.5 Smokeless tobacco: Never Tobacco comments: Quit 15+ years Substance Use Topics Alcohol use: Not Currently Drug use: Never PRIOR TO ADMISSION MEDICATIONS: Prior to Admission Medications Prescriptions Last Dose Informant Patient Reported? Taking? CHOLECALCIFEROL, VITAMIN D3, ORAL Yes No Sig: Take by mouth once daily. CPAP Yes No Sig: daily at bedtime. MAGNESIUM ORAL Yes No Sig: Take by mouth once daily. MULTI-VITAMIN ORAL Yes No Sig: Take by mouth once daily. ZINC ORAL Yes No Sig: Take by mouth once daily. ascorbic acid (VITAMIN C ORAL) Yes No Sig: Take by mouth once daily. aspirin 81 mg cap Yes No Sig: Take by mouth once daily. atorvastatin (LIPITOR) 80 mg tablet Yes Yes Sig: Take 80 mg by mouth once daily. carvedilol (COREG) 12.5 mg tablet No No Si tablet by ORAL/FEEDING TUBE route q 12 HR. Patient taking differently: Take 12.5 mg by mouth q 12 HR. 1/2 tab twice a day clopidogrel (PLAVIX) 75 mg tablet Yes Yes Sig: Take 75 mg by mouth once daily. docosahexaenoic acid/epa (FISH OIL ORAL) Yes No Sig: Take by mouth once daily. glipiZIDE (GLUCOTROL) 5 mg tablet Yes Yes Sig: once daily. hydroCHLOROthiazide (HYDRODIURIL, ESIDRIX) 25 mg tablet Yes Yes Sig: Take 25 mg by mouth once daily. loratadine (CLARITIN) 10 mg tablet Yes No Sig: Take 10 mg by mouth. metFORMIN (GLUCOPHAGE) 1,000 mg tablet Yes No Sig: Take 1,000 mg by mouth twice daily with meals. Patient not taking: Reported on 10/15/[address] (PROTONIX) 40 mg tablet Yes Yes Sig: Take 40 mg by mouth once daily. sertraline (ZOLOFT) 100 mg tablet Yes No Sig: TAKE 1 TABLET BY MOUTH EVERYDAY AT BEDTIME tamsulosin (FLOMAX) 0.4 mg No No Sig: Take 1 capsule by mouth once daily. tramadol HCl (TRAMADOL ORAL) Yes No Sig: Take 50 mg by mouth. vitamin B complex (B COMPLEX 1 ORAL) Yes No Sig: Take by mouth once daily. Facility-Administered Medications: None ALLERGIES No Known Allergies REVIEW OF SYSTEM: PAIN ASSESSMENT: Negative for pain, history of chronic pain, or current treatment for a chronic pain condition. GENERAL: No weight loss, malaise or fevers RESPIRATORY: Negative for cough, hemoptysis, wheezing, COPD, dyspnea or shortness of breath CARDIOVASCULAR: Negative for chest pain, leg swelling, hypertension, CHF or palpitations GI: Positive for nausea vomiting Objective PHYSICAL EXAM: There were no vitals taken for this visit. Physical Exam Performed: GENERAL: Alert, no distress, cooperative EYES: EOMI NOSE: Nares normal. Septum midline. LUNGS: On RA with no increased work of br (more content not included)... Normal [facility] Hematocrit [Volume Fraction] of Blood by Automated countOrdered By: Outside Provider on 01-18-2025 Hematocrit (Bld) [Volume fraction] 44.3 % 39.0-51.0 [facility] Comment on above: Order Comment: Speci men Type: BLOOD SPECIMENOrdering Facility: [facility] Address: [address] [place] [address] Performed By: #### 5 8410-2 ####[facility] LABORATORYCLIA [id number] [place] [address] [place] Hemoglobin [Mass/volume] in BloodOrdered By: Outside Provider on 01-18-2025 Hemoglobin (Bld) [Mass/Vol] 14.9 g/dL 13.0-17.0 [facility] Comment on above: Order Comment: Speci men Type: BLOOD SPECIMENOrdering Facility: [facility] Address: [address] [place] [address] Performed By: #### 5 8410-2 ####[facility] LABORATORYCLIA [id number] [address] Laboratory - Chemistry and C hemistry - challengeOrdered By: Caleb Mcduffie on 01-18-2025 Bilirubin.direct [Mass/Vol] 0.1 mg/dL 0.0-0.2 [facility] Laboratory - Chemistry and C hemistry - challengeOrdered By: Juancarlos Cuenca on 01-18-2025 GFR/1.73 sq M.predicted MDRD (S/P/Bld) [Vol rate/Area] mL/min/{1.73_m2} >=60 mL/min/1.73 m 2 [facility] Protein [Mass/Vol] 6.1 g/dL Low 6.4-8.2 [facility] Urea nitrogen/Creatinine [Mass ratio] 12.5 mg/mg [facility] Laboratory - Hematology and Cell countsOrdered By: Caleb Mcduffie on 01-18-2025 Immature granulocytes/100 WBC (Bld) 0.2 % 0.0-0.5 [facility] Leukocytes [#/volume] correc maru for nucleated erythrocytes in Blood by Automated counOrdered By: Outside Provider on 01-18-2025 WBC corrected for nucl RBC Auto (Bld) [#/Vol] 9.27 k/uL 3.70-11.00 [facility] Lipase SerPl-cCncOrdered By: Outside Provider on 01-18-2025 Lipase [Catalytic activity/Vol] 11 U/L Low 16-61 [facility] Comment on above: Order Comment: Speci men Type: BLOOD SPECIMENOrdering Facility: [facility] Address: [address] [place] [address] Performed By: #### 3 0403, [id number] ####[facility] LABORATORYCLIA [id number] [place] [address] [place] Lymphocytes Auto (Bld) [#/Vo l]Ordered By: Caleb Mcduffie on 01-18-2025 Lymphocytes (Bld) [#/Vol] 1.9 10 3/uL 1.2-3.8 [facility] Lymphocytes/100 WBC Auto (Bl d)Ordered By: Caleb Mcduffie on 01-18-2025 Lymphocytes/100 WBC (Bld) 17.1 % Low 20.5-60.0 [facility] MCH [Entitic mass] by Automa maru countOrdered By: Outside Provider on 01-18-2025 MCH (RBC) [Entitic mass] 30.9 pg 26.0-34.0 [facility] Comment on above: Order Comment: Speci men Type: BLOOD SPECIMENOrdering Facility: [facility] Address: [address] [place] [address] Performed By: #### 5 8410-2 ####[facility] LABORATORYCLIA [id number] [address] [place] MCHC [Mass/volume] by Automa maru countOrdered By: Outside Provider on 01-18-2025 MCHC (RBC) [Mass/Vol] 33.6 g/dL 30.5-36.0 [facility] Comment on above: Order Comment: Speci men Type: BLOOD SPECIMENOrdering Facility: [facility] Address: [address] [place] [address] Performed By: #### 5 8410-2 ####ALFREDO LABORATORYCLIA [id number] [place] [id number] [place] MCV [Entitic volume] by Auto mated countOrdered By: Outside Provider on 01-18-2025 MCV (RBC) [Entitic vol] 91.9 fL 80.0-100.0 [facility] Comment on above: Order Comment: Speci men Type: BLOOD SPECIMENOrdering Facility: [facility] Address: [address] [place] [address] Performed By: #### 5 8410-2 ####[facility] LABORATORYCLIA [id number] [place] [address] [place] Monocytes Auto (Bld) [#/Vol] Ordered By: Caleb Mcduffie on 01-18-2025 Monocytes (Bld) [#/Vol] 0.9 10 3/uL High 0.3-0.8 [facility] Monocytes/100 WBC Auto (Bld) Ordered By: Caleb Mcduffie on 01-18-2025 Monocytes/100 WBC (Bld) 8.4 % 1.7-12.0 [facility] Neutrophils Auto (Bld) [#/Vo l]Ordered By: Caleb Mcduffie on 01-18-2025 Neutrophils (Bld) [#/Vol] 7.9 10 3/uL High 1.4-6.5 [facility] Neutrophils/100 WBC Auto (Bl d)Ordered By: Caleb Mcduffie on 01-18-2025 Neutrophils/100 WBC (Bld) 72.5 % 43.0-75.0 [facility] No Panel InformationOrdered By: Outside Provider on 01-18-2025 Estimated GFR (CKD-EPI) 65 mL/min/1.73m??? >=60 [facility] Comment on above: Estimated Glomerular Filtration Rate (eGFR) is calculated using the 2020 CKD-EPI creatinine equation. This equation utilizes serum creatinine, sex, and age as parameters. The creatinine assay has traceable calibration to isotope dilution-mass spectrometry. Refer to KDIGO guidelines for clinical interpretation. In patients with unstable renal function, e.g. those with acute kidney injury, the eGFR may not accurately reflect actual GFR. No Panel InformationOrdered By: Caleb Mcduffie on 01-18-2025 Eosinophils # (Auto) 0.2 10 3/uL 0.0-0.7 [facility] Immature Granulocyte # (Auto) 0.02 10 3/uL 0.00-0.03 [facility] Nucleated erythrocytes [#/vo lume] in Blood by Automated countOrdered By: Outside Provider on 01-18-2025 Nucleated RBC (Bld) [#/Vol] 10*3/uL <0.01 [facility] Comment on above: Order Comment: Speci men Type: BLOOD SPECIMENOrdering Facility: [facility] Address: [address] [place] [address] Performed By: #### 5 8410-2 ####ALFREDO LABORATORYCLIA [id number] [place] [id number] [place] Platelet mean volume [Entiti c volume] in Blood by Automated countOrdered By: Outside Provider on 01-18-2025 Platelet mean volume (Bld) [Entitic vol] 9.4 fL 9.0-12.7 [facility] Comment on above: Order Comment: Speci men Type: BLOOD SPECIMENOrdering Facility: [facility] Address: [address] [place] [address] Performed By: #### 5 8410-2 ####ALFREDO LABORATORYCLIA [id number] [place] [address] [place] Platelets [#/volume] in Bloo d by Automated countOrdered By: Outside Provider on 01-18-2025 Platelets (Bld) [#/Vol] 225 10*3/uL 150-400 [facility] Comment on above: Order Comment: Speci men Type: BLOOD SPECIMENOrdering Facility: [facility] Address: [address] [place] [address] Performed By: #### 5 8410-2 ####ALFREDO LABORATORYCLIA [id number] [place] [id number] [place] Protein [Mass/volume] in Ser um or PlasmaOrdered By: Outside Provider on 01-18-2025 Protein [Mass/Vol] 6.4 g/dL 6.3-8.0 [facility] Comment on above: Order Comment: Speci men Type: BLOOD SPECIMENOrdering Facility: [facility] Address: [address] [place] [address] Performed By: #### 3 040-3, 52564-8 ####ALFREDO LABORATORYCLIA [id number] [place] [id number] [place] Serum or plasma albumin/glob ulin mass ratioOrdered By: Juancarlos Cuenca on 07-02-2025 Albumin/Globulin [Mass ratio] 1.0 {ratio} [facility] Serum or plasma anion gap de terminationOrdered By: Outside Provider on 01-18-2025 Anion gap [Moles/Vol] 14 mmol/L 8-15 [facility] Comment on above: Order Comment: Speci men Type: BLOOD SPECIMENOrdering Facility: [facility] Address: [address] [place] [address] Performed By: #### 3 040-3, 64361-0 ####[facility] LABORATORYCLIA [id number] [place] [address] [place] Basophils Auto (Bld) [#/Vol] Ordered By: Caleb Mcduffie on 01-17-2025 Basophils (Bld) [#/Vol] 0.0 10 3/uL 0.0-0.1 [facility] Basophils/100 WBC Auto (Bld) Ordered By: Caleb Mcduffie on 01-17-2025 Basophils/100 WBC (Bld) 0.2 % 0.2-2.0 [facility] CNPNon 01-17-2025 CNPN Telephone (FVPRAD) LIZZY YEE ([id number]) 1945 [facility] Date Time Provider Department 01/17/25 CAMI SANDHU FVPRAD During your visit today, we recorded the following information about you: Cami Sandhu MD 01/17/2025 4:[address] [facility] Requests Transfer to [facility] 79 yo male with PMH of BHUPENDRA, HTN, HLP, CAD, anxiety, obesity, colonic polyposis syndrome s/p subtotal colectomy c/b ventral hernia, s/p repair presented to the ER for abdominal pain, nausea, non-bilious/non-blood y emesis x 2, and inability to hold down antihypertensives. BP in the 190s on arrival, improved spontaneously to 130s systolic without specific intervention. Exam otherwise with epigastric tenderness. Labs all relatively normal with normal BMP, WBC 8.6, Hb 15.2, glucose 193, alk phos 144, AST 21, ALT 39, lipase 13. CT abd/pelvis showed choledocholithiasis. Given his previous abdominal surgeries have been at [place] (Drs. Medina and Carlos), request is for transfer for both GI as well as Gen surg evaluation. Accepted to inpatient telemetry. Cami Sandhu MD 01/17/2025 4:26 AM Allergies As of Date: 01/17/2025 (No Known Allergies) Date Reviewed: 10/20/2024 Reviewed by: Destiny Zapata OCCA - Fully Assessed Reason for Visit: Hospital To Hospital [[id number]] Prescriptions as of 01/17/2025 - tramadol HCl (TRAMADOL ORAL) Take 50 [...] once daily. Problem List As Of Date 01/17/2025 Noted Resolved Polyp of colon [K63.5] 06/07/2021 ASHD (arteriosclerotic heart disease) [I25.10] Sleep apnea [G47.30] HTN (hypertension) [I10] HLD (hyperlipidemia) [E78.5] Type 2 diabetes mellitus, without long-term cur* Antiplatelet or antithrombotic long-term use [Z* Obesity (BMI 30-39.9) [E66.9] Polyposis coli [D13.91] 09/24/2021 09/30/2021 Obesity, Class II, BMI 35-39.9 [E66.812] 09/25/2021 Morbid obesity (HCC) [E66.01] 10/15/2023 Encounter Status:Closed by CAMI SANDHU on 01/17/25 [facility] Eosinophils/100 WBC Auto (Bl d)Ordered By: Caleb Mcduffie on 01-17-2025 Eosinophils/100 WBC (Bld) 0.9 % 0.9-7.0 [facility] Erythrocyte distribution wid th Auto (RBC) [Ratio]Ordered By: Caleb Mcduffie on 01-17-2025 Erythrocyte distribution width (RBC) [Ratio] 14.4 % 11.0-15.0 [facility] Estimated glomerular filtrat ion rate (GFR) non- AmericanOrdered By: Caleb Mcduffie on 01-17-2025 GFR/1.73 sq M.predicted among non-blacks MDRD (S/P/Bld) [Vol rate/Area] mL/min/{1.73_m2} >=60 mL/min/1.73 m 2 [facility] Hematocrit Auto (Bld) [Volum e fraction]Ordered By: Caleb Mcduffie on 01-17-2025 Hematocrit (Bld) [Volume fraction] 43.5 % 42.0-54.0 [facility] Hemoglobin [Mass/volume] in BloodOrdered By: Caleb Mcduffie on 01-17-2025 Hemoglobin (Bld) [Mass/Vol] 15.0 g/dL 14.0-18.0 [facility] Laboratory - Chemistry and C hemistry - challengeOrdered By: Caleb Mcduffie on 01-17-2025 Bilirubin.direct [Mass/Vol] 0.2 mg/dL 0.0-0.2 [facility] Calcium [Mass/Vol] 9.8 mg/dL 8.5-10.1 [facility] Chloride [Moles/Vol] 102 mmol/L 98-107 [facility] CO2 [Moles/Vol] 27.1 mmol/L 21.0-32.0 [facility] Creatinine [Mass/Vol] 0.96 mg/dL 0.70-1.30 [facility] GFR/1.73 sq M.predicted MDRD (S/P/Bld) [Vol rate/Area] mL/min/{1.73_m2} >=60 mL/min/1.73 m 2 [facility] Glucose [Mass/Vol] 130 mg/dL High 74-106 [facility] Potassium [Moles/Vol] 4.5 mmol/L 3.5-5.1 [facility] Sodium [Moles/Vol] 139 mmol/L 136-145 [facility] Urea nitrogen [Mass/Vol] 14.0 mg/dL 7.0-18.0 [facility] Urea nitrogen/Creatinine [Mass ratio] 14.6 mg/mg [facility] Laboratory - Chemistry and C hemistry - challengeOrdered By: Kalpesh Arteaga on 01-17-2025 Bilirubin Ql (U) Negative NEGATIVE [facility] Glucose (U) [Mass/Vol] 100 mg/dL Abnormal NEGATIVE [facility] Ketones Ql (U) Negative NEGATIVE [facility] pH (U) 6.0 [pH] 5.0-9.0 [facility] Specific gravity (U) [Rel density] 1.020 1.005-1.025 [facility] Urobilinogen Qn (U) 0.2 {Ronnie'U}/dL 0.2-1.0 [facility] Laboratory - Hematology and Cell countsOrdered By: Caleb Mcduffie on 01-17-2025 Immature granulocytes/100 WBC (Bld) 0.2 % 0.0-0.5 [facility] Laboratory - Specimen inform ationOrdered By: Kalpesh Arteaga on 01-17-2025 Appearance (U) CLEAR CLEAR [facility] Color (U) LT. YELLOW YELLOW [facility] Laboratory - UrinalysisOrder ed By: Kalpesh Arteaga on 01-17-2025 Leukocyte esterase Test strip Ql (U) Negative NEGATIVE [facility] Mucus Ql (Urine sed) TRACE Abnormal NONE SEEN [facility] Nitrite Ql (U) Negative NEGATIVE [facility] Protein Ql (U) Negative NEG/TRACE [facility] Leukocytes [#/volume] correc maru for nucleated erythrocytes in Blood by Automated counOrdered By: Caleb Mcduffie on 01-17-2025 WBC corrected for nucl RBC Auto (Bld) [#/Vol] 8.7 10 3/uL 4.0-11.0 [facility] Lymphocytes Auto (Bld) [#/Vo l]Ordered By: Caleb Mcduffie on 01-17-2025 Lymphocytes (Bld) [#/Vol] 1.3 10 3/uL 1.2-3.8 [facility] Lymphocytes/100 WBC Auto (Bl d)Ordered By: Caleb Mcduffie on 01-17-2025 Lymphocytes/100 WBC (Bld) 14.5 % Low 20.5-60.0 [facility] MCH Auto (RBC) [Entitic mass ]Ordered By: Caleb Mcduffie on 01-17-2025 MCH (RBC) [Entitic mass] 31.8 pg 25.9-34.0 [facility] MCHC Auto (RBC) [Mass/Vol]Or dered By: Caleb Mcduffie on 01-17-2025 MCHC (RBC) [Mass/Vol] 34.5 g/dL 29.9-35.2 [facility] MCV Auto (RBC) [Entitic vol] Ordered By: Caleb Mcduffie on 01-17-2025 MCV (RBC) [Entitic vol] 92.4 fL 80.0-94.0 [facility] Monocytes Auto (Bld) [#/Vol] Ordered By: Caleb Goldenad on 01-17-2025 Monocytes (Bld) [#/Vol] 0.7 10 3/uL 0.3-0.8 [facility] Monocytes/100 WBC Auto (Bld) Ordered By: Caleb Mcduffie on 01-17-2025 Monocytes/100 WBC (Bld) 7.9 % 1.7-12.0 [facility] Neutrophils Auto (Bld) [#/Vo l]Ordered By: Caleb Mcduffie on 01-17-2025 Neutrophils (Bld) [#/Vol] 6.6 10 3/uL High 1.4-6.5 [facility] Neutrophils/100 WBC Auto (Bl d)Ordered By: Caleb Mcduffie on 01-17-2025 Neutrophils/100 WBC (Bld) 76.3 % High 43.0-75.0 [facility] No Panel InformationOrdered By: Calebandreas Mcduffie on 01-17-2025 Eosinophils # (Auto) 0.1 10 3/uL 0.0-0.7 [facility] Immature Granulocyte # (Auto) 0.02 10 3/uL 0.00-0.03 [facility] Troponin I High Sensitivity 41.1 pg/mL 4.0-76.1 [facility] Comment on above: CUT-OFF POINTS HAVE BEEN ESTABLISHED BASED ON THE FOURTHUNIVERSAL DEFINITION OF MYOCARDIAL INFARCTION. THE UPPERREFERENCE LIMIT (URL) OF TROPONIN, DEFINED THE 99THPERCENTILE OF cTnI DISTRIBUTION IN A REFERENCE POPULATION,HAS BEEN CONFIRMED THE DECISION THRESHOLD FOR MIDIAGNOSIS.99TH PERCENTILE = 76.2 PG/MLNOTE: HIGH-SENSITIVITY TROPONIN ASSAY IS NOT INTENDED TO BEUSED IN ISOLATION BUT SHOULD BE INTERPRETED IN CONJUNCTIONWITH OTHER DIAGNOSTIC AND CLINICAL INFORMATION. No Panel InformationOrdered By: Kalpesh Arteaga on 01-17-2025 Urine Bacteria TRACE #/HPF Abnormal NONE SEEN [facility] Urine Culture Reflexed NO [facility] Urine Microscopic Review YES [facility] Urine Occult Blood TRACE-I NEGATIVE [facility] Urine Other Casts NONE SEEN #/LPF NONE SEEN [facility] Urine Other Crystals None Seen #/HPF None Seen [facility] Urine RBC 0-2 #/HPF 0-2 [facility] Urine Squamous Epithelial Cells RARE #/LPF NONE/RARE [facility] Urine WBC 0-2 #/HPF Abnormal NONE SEEN [facility] Platelet mean volume Auto (B ld) [Entitic vol]Ordered By: Caleb Mcduffie on 01-17-2025 Platelet mean volume (Bld) [Entitic vol] 9.3 fL Low 9.5-13.5 [facility] Platelets Auto (Bld) [#/Vol] Ordered By: Caleb Mcduffie on 01-17-2025 Platelets (Bld) [#/Vol] 202 10 3/uL 150-450 [facility] RBC Auto (Bld) [#/Vol]Ordere d By: Caleb Mcduffie on 01-17-2025 RBC (Bld) [#/Vol] 4.71 10 6/uL 4.70-6.10 [facility] Serum or plasma anion gap de terminationOrdered By: Caleb Mcduffie on 01-17-2025 Anion gap [Moles/Vol] 14.4 mmol/L Fi [facility] Basophils Auto (Bld) [#/Vol] Ordered By: Kalpesh Jarrett on 01-16-2025 Basophils (Bld) [#/Vol] 0.0 10 3/uL 0.0-0.1 [facility] Basophils/100 WBC Auto (Bld) Ordered By: Kalpesh Jarrett on 01-16-2025 Basophils/100 WBC (Bld) 0.3 % 0.2-2.0 [facility] Eosinophils/100 WBC Auto (Bl d)Ordered By: Kalpesh Jarrett on 01-16-2025 Eosinophils/100 WBC (Bld) 1.3 % 0.9-7.0 [facility] Erythrocyte distribution wid th Auto (RBC) [Ratio]Ordered By: Kalpesh Jarrett on 01-16-2025 Erythrocyte distribution width (RBC) [Ratio] 14.1 % 11.0-15.0 [facility] Estimated glomerular filtrat ion rate (GFR) non- AmericanOrdered By: Kalpesh Jarrett on 01-16-2025 GFR/1.73 sq M.predicted among non-blacks MDRD (S/P/Bld) [Vol rate/Area] mL/min/{1.73_m2} >=60 mL/min/1.73 m 2 [facility] Globulin Calc (S) [Mass/Vol] Ordered By: [facility] on 01-16-2025 Globulin (S) [Mass/Vol] 3.6 g/dL [facility] Hematocrit Auto (Bld) [Volum e fraction]Ordered By: [facility] on 01-16-2025 Hematocrit (Bld) [Volume fraction] 43.7 % 42.0-54.0 [facility] Hemoglobin [Mass/volume] in BloodOrdered By: [facility] on 01-16-2025 Hemoglobin (Bld) [Mass/Vol] 15.2 g/dL 14.0-18.0 [facility] Laboratory - Chemistry and C hemistry - challengeOrdered By: [facility] on 01-16-2025 Albumin [Mass/Vol] 3.4 g/dL 3.4-5.0 [facility] ALP [Catalytic activity/Vol] 144 U/L High 46-116 [facility] ALT [Catalytic activity/Vol] 39 U/L 16-63 [facility] AST [Catalytic activity/Vol] 21 U/L 15-37 [facility] Bilirubin [Mass/Vol] 0.5 mg/dL 0.2-1.0 [facility] Bilirubin.direct [Mass/Vol] 0.2 mg/dL 0.0-0.2 [facility] Calcium [Mass/Vol] 9.9 mg/dL 8.5-10.1 [facility] Chloride [Moles/Vol] 100 mmol/L 98-107 [facility] CO2 [Moles/Vol] 28.8 mmol/L 21.0-32.0 [facility] Creatinine [Mass/Vol] 1.13 mg/dL 0.70-1.30 [facility] GFR/1.73 sq M.predicted MDRD (S/P/Bld) [Vol rate/Area] mL/min/{1.73_m2} >=60 mL/min/1.73 m 2 [facility] Glucose [Mass/Vol] 193 mg/dL High 74-106 [facility] Lactate [Moles/Vol] 1.5 mmol/L 0.4-2.0 [facility] Lipase [Catalytic activity/Vol] 13.0 U/L Low 16.0-77.0 [facility] Potassium [Moles/Vol] 4.3 mmol/L 3.5-5.1 [facility] Protein [Mass/Vol] 7.0 g/dL 6.4-8.2 [facility] Sodium [Moles/Vol] 136 mmol/L 136-145 [facility] Urea nitrogen [Mass/Vol] 18.0 mg/dL 7.0-18.0 [facility] Urea nitrogen/Creatinine [Mass ratio] 15.9 mg/mg [facility] Laboratory - Hematology and Cell countsOrdered By: Kalpesh Arteaga on 01-16-2025 Immature granulocytes/100 WBC (Bld) 0.1 % 0.0-0.5 [facility] Leukocytes [#/volume] correc maru for nucleated erythrocytes in Blood by Automated counOrdered By: Kalpesh Arteaga on 01-16-2025 WBC corrected for nucl RBC Auto (Bld) [#/Vol] 8.6 10 3/uL 4.0-11.0 [facility] Lymphocytes Auto (Bld) [#/Vo l]Ordered By: Kalpesh Arteaga on 01-16-2025 Lymphocytes (Bld) [#/Vol] 1.4 10 3/uL 1.2-3.8 [facility] Lymphocytes/100 WBC Auto (Bl d)Ordered By: Kalpesh Arteaga on 01-16-2025 Lymphocytes/100 WBC (Bld) 15.9 % Low 20.5-60.0 [facility] MCH Auto (RBC) [Entitic mass ]Ordered By: Kalpesh Arteaga on 01-16-2025 MCH (RBC) [Entitic mass] 32.1 pg 25.9-34.0 [facility] MCHC Auto (RBC) [Mass/Vol]Or dered By: Kalpesh Arteaga on 01-16-2025 MCHC (RBC) [Mass/Vol] 34.8 g/dL 29.9-35.2 [facility] MCV Auto (RBC) [Entitic vol] Ordered By: Kalpesh Arteaga on 01-16-2025 MCV (RBC) [Entitic vol] 92.2 fL 80.0-94.0 [facility] Monocytes Auto (Bld) [#/Vol] Ordered By: Kalpesh Jarrett on 01-16-2025 Monocytes (Bld) [#/Vol] 0.7 10 3/uL 0.3-0.8 [facility] Monocytes/100 WBC Auto (Bld) Ordered By: Kalpesh Jarrett on 01-16-2025 Monocytes/100 WBC (Bld) 8.5 % 1.7-12.0 [facility] Neutrophils Auto (Bld) [#/Vo l]Ordered By: Kalpesh Jarrett on 01-16-2025 Neutrophils (Bld) [#/Vol] 6.4 10 3/uL 1.4-6.5 [facility] Neutrophils/100 WBC Auto (Bl d)Ordered By: Kalpesh Jarrett on 01-16-2025 Neutrophils/100 WBC (Bld) 73.9 % 43.0-75.0 [facility] No Panel InformationOrdered By: Kalpesh Jarrett on 01-16-2025 Eosinophils # (Auto) 0.1 10 3/uL 0.0-0.7 [facility] Immature Granulocyte # (Auto) 0.01 10 3/uL 0.00-0.03 [facility] Platelet mean volume Auto (B ld) [Entitic vol]Ordered By: Kalpesh Jarrett on 01-16-2025 Platelet mean volume (Bld) [Entitic vol] 9.6 fL 9.5-13.5 [facility] Platelets Auto (Bld) [#/Vol] Ordered By: Kalpesh Jarrett on 01-16-2025 Platelets (Bld) [#/Vol] 201 10 3/uL 150-450 [facility] RBC Auto (Bld) [#/Vol]Ordere d By: Kalpesh Jarrett on 01-16-2025 RBC (Bld) [#/Vol] 4.74 10 6/uL 4.70-6.10 [facility] Serum or plasma albumin/glob ulin mass ratioOrdered By: Kalpeshjuve Robbinsain on 01-16-2025 Albumin/Globulin [Mass ratio] 0.9 {ratio} [facility] Serum or plasma anion gap de terminationOrdered By: Kalpesh Arteaga on 01-16-2025 Anion gap [Moles/Vol] 11.5 mmol/L [facility] SEGMENTAL BLOOD PRESSUREon 0 12-22-2024 [place] [address] Cardiology Report Signed Patient: LIZZY YEE MR#: [id number] : 1945 Acct:[id number] Age/Sex: 78 / M ADM Date: 12/22/24 Loc: CARD Attending Dr: Anderson Robledo M.D. Ordering Physician: Anderson Robledo M.D. Date of Service: 12/22/24 Procedure(s): CA segmental UE or LE ZHENG Accession Number(s): [id number] cc: Juancarlos Cuenca D.O.; Anderson Robledo M.D. 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 Interpretive Statements [...] OCAMPO Signed By: 12/22/24203512/22/242035 DD/ 08 TD/TT: Supervisor Hospitality House: [facility] Radiology, Radiologist, MD - 12/22/2024 [place] [address] Cardiology Report Signed Patient: LIZZY YEE MR#: [id number] : 1945 Acct:[id number] Age/Sex: 78 / M ADM Date: 12/22/24 Loc: CARD Attending Dr: Anderson Robledo M.D. Ordering Physician: Anderson Robledo M.D. Date of Service: 12/22/24 Procedure(s): CA segmental UE or LE ZHENG Accession Number(s): [id number] cc: Juancarlos Cuenca D.O.; Anderson Robledo M.D. [facility] Test Date: 2024-12-22 Pat Name: LIZZY YEE Department: Room: - Gender: Male Program Director Substance Abuse: : 1945 Requested By: 1892 Order Number: [id number] Reading MD: CRISTELA OCAMPO M.D. Interpretive Statements [...] OCAMPO Signed By: 12/22/24203512/22/242035 DD/ 08 TD/TT: Supervisor [facility] Study observation (narrative) [facility] SEGMENTAL BLOOD PRESSUREOrde red By: Radiologist Radiology on 12-22-[address] [facility] Work Phone: Basophils Auto (Bld) [#/Vol] on 10-27-2024 Basophils (Bld) [#/Vol] Automated basoph il count 0.0-0.1 [facility] Basophils/100 WBC Auto (Bld) on 10-27-2024 Basophils/100 WBC (Bld) Automated basophil % 0. 2-2.0 [facility] Cholesterol in LDL Calc [Mas s/Vol]on 10-27-2024 Cholesterol in LDL [Mass/Vol] Cholesterol in LDL [Mass/volume] in Serum or Plasma by calculation [facility] Comment on above: <100 mg/dl [id number] 0-129 mg/dl NEAR OR ABOVE [id number] mg/dl BORDERLINE [id number] mg/dl HIGH>190 mg/dl VERY HIGH Cholesterol in VLDL Calc [Ma ss/Vol]on 10-27-2024 Cholesterol in VLDL [Mass/Vol] Cholesterol in VLDL [Mass/volume] in Serum or Plasma by calculation [facility] Eosinophils/100 WBC Auto (Bl d)on 10-27-2024 Eosinophils/100 WBC (Bld) Automated eosinophil % 0.9-7.0 [facility] Erythrocyte distribution wid th Auto (RBC) [Ratio]on 10-27-2024 Erythrocyte distribution width (RBC) [Ratio] Erythrocyte distribution width [Ratio] by Automated count 11.0-15.0 [facility] Estimated glomerular filtrat ion rate (GFR) non- Americanon 10-27-2024 GFR/1.73 sq M.predicted among non-blacks MDRD (S/P/Bld) [Vol rate/Area] Estimated glomerular filtration rate (GFR) non- Low >=60 mL/min/1.73 m 2 [facility] Globulin Calc (S) [Mass/Vol] on 10-27-2024 Globulin (S) [Mass/Vol] Serum globulin measurement by calculation (mass/volume) [facility] Glucose mean value [Mass/vol ume] in Blood Estimated from glycated hemoglobinon 10-27-2024 Average glucose Estimated from glycated hemoglobin (Bld) [Mass/Vol] Glucose mean value [Mass/volume] in Blood Estimated from glycated hemoglobin [facility] Hematocrit Auto (Bld) [Volum e fraction]on 10-27-2024 Hematocrit (Bld) [Volume fraction] Hematocrit [Volume Fraction] of Blood by Automated count Low 42.0-54.0 [facility] Hemoglobin A1c percentageon 10-27-2024 HbA1c (Bld) [Mass fraction] Hemoglobin A1c percentage High 4.5-6.2 [facility] Comment on above: ADA RECOMMENDED LIMI T 4.0 - 6.0ADA THERAPEUTIC TARGET < 7.0ACTION SUGGESTED> 7.0 Hemoglobin [Mass/volume] in Bloodon 10-27-2024 Hemoglobin (Bld) [Mass/Vol] Hemoglobin [Mass/volume] in Blood 14.0-18.0 [facility] Laboratory - Chemistry and C hemistry - challengeon 10-27-2024 Albumin [Mass/Vol] 3.6 g/dL 3.4-5.0 [facility] ALP [Catalytic activity/Vol] 125 U/L High 46-116 [facility] ALT [Catalytic activity/Vol] 22 U/L 16-63 [facility] AST [Catalytic activity/Vol] 15 U/L 15-37 [facility] Bilirubin [Mass/Vol] 0.8 mg/dL 0.2-1.0 [facility] Calcium [Mass/Vol] 9.3 mg/dL 8.5-10.1 [facility] Chloride [Moles/Vol] 104 mmol/L 98-107 [facility] Cholesterol [Mass/Vol] 103 mg/dL <=200 [facility] Cholesterol in HDL [Mass/Vol] 46 mg/dL 40-60 [facility] Comment on above: > or =60 mg/dl - LOW CARDIOVASCULAR RISK<40 mg/dl - HIGH CARDIOVASCULAR RISK CO2 [Moles/Vol] 26.5 mmol/L 21.0-32.0 [facility] Creatinine [Mass/Vol] 1.47 mg/dL High 0.70-1.30 [facility] GFR/1.73 sq M.predicted MDRD (S/P/Bld) [Vol rate/Area] 56 mL/min/{1.73_m2} Low >=60 mL/min/1.73 m 2 [facility] Glucose [Mass/Vol] 122 mg/dL High 74-106 [facility] Potassium [Moles/Vol] 4.6 mmol/L 3.5-5.1 [facility] Protein [Mass/Vol] 7.0 g/dL 6.4-8.2 [facility] Sodium [Moles/Vol] 140 mmol/L 136-145 [facility] Triglyceride [Mass/Vol] 85 mg/dL <=150 [facility] Urea nitrogen [Mass/Vol] 31.0 mg/dL High 7.0-18.0 [facility] Urea nitrogen/Creatinine [Mass ratio] 21.1 mg/mg [facility] Laboratory - Hematology and Cell countson 10-27-2024 Immature granulocytes/100 WBC (Bld) 0.1 % 0.0-0.5 [facility] Leukocytes [#/volume] correc maru for nucleated erythrocytes in Blood by Automated counon 10-27-2024 WBC corrected for nucl RBC Auto (Bld) [#/Vol] Leukocytes [#/volume] corrected for nucleated erythrocytes in Blood by Automated coun 4.0-11.0 [facility] Lymphocytes Auto (Bld) [#/Vo l]on 10-27-2024 Lymphocytes (Bld) [#/Vol] Lymphocytes [#/volume] in Blood by Automated count 1.2-3.8 [facility] Lymphocytes/100 WBC Auto (Bl d)on 10-27-2024 Lymphocytes/100 WBC (Bld) Lymphocytes/100 leukocytes in Blood by Automated count 20.5-60.0 [facility] MCH Auto (RBC) [Entitic mass ]on 10-27-2024 MCH (RBC) [Entitic mass] MCH [Entitic mass] by Automated count 25.9-34.0 [facility] MCHC Auto (RBC) [Mass/Vol]on 10-27-2024 MCHC (RBC) [Mass/Vol] MCHC [Mass/volume] by Automated count 29.9-35.2 [facility] MCV Auto (RBC) [Entitic vol] on 10-27-2024 MCV (RBC) [Entitic vol] MCV [Entitic vol ume] by Automated count 80.0-94.0 [facility] Microalbumin [Mass/volume] i n Urineon 10-27-2024 Albumin DL <= 20 mg/L (U) [Mass/Vol] Microalbumin [Mass/volume] in Urine <=30.0 [facility] Monocytes Auto (Bld) [#/Vol] on 10-27-2024 Monocytes (Bld) [#/Vol] Automated blood monocyte count 0.3-0.8 [facility] Monocytes/100 WBC Auto (Bld) on 10-27-2024 Monocytes/100 WBC (Bld) Automated monocyte % 1. 7-12.0 [facility] Neutrophils Auto (Bld) [#/Vo l]on 10-27-2024 Neutrophils (Bld) [#/Vol] Neutrophils [#/volume] in Blood by Automated count 1.4-6.5 [facility] Neutrophils/100 WBC Auto (Bl d)on 10-27-2024 Neutrophils/100 WBC (Bld) Automated neutrophil % 43.0-75.0 [facility] No Panel Informationon 10-27 Eosinophils # (Auto) 0.2 10 3/uL 0.0-0.7 [facility] Immature Granulocyte # (Auto) 0.01 10 3/uL 0.00-0.03 [facility] Prostate Specific Antigen Screen 0.38 ng/mL <=4.00 [facility] Urine Random Creatinine 104.11 mg/dL 20.0 0-300.0 0 [facility] Platelet mean volume Auto (B ld) [Entitic vol]on 10-27-2024 Platelet mean volume (Bld) [Entitic vol] Platelet mean volume [Entitic volume] in Blood by Automated count 9.5-13.5 [facility] Platelets Auto (Bld) [#/Vol] on 10-27-2024 Platelets (Bld) [#/Vol] Platelets [#/vol ume] in Blood by Automated count 150-450 [facility] RBC Auto (Bld) [#/Vol]on RBC (Bld) [#/Vol] Erythrocytes [#/volume] in Blood by Automated count Low 4.70-6.10 [facility] Serum or plasma albumin/glob ulin mass ratioon 10-27-2024 Albumin/Globulin [Mass ratio] Serum or plasma albumin/globulin mass ratio [facility] Serum or plasma anion gap de terminationon 10-27-2024 Anion gap [Moles/Vol] Serum or plasma an ion gap determination [facility] Serum or plasma total choles terol/high density lipoprotein (HDL) cholesterol mass venu 10-27-2024 Cholesterol.total/Maria Dolores sterol in HDL [Mass ratio] Serum or plasma total cholesterol/high density lipoprotein (HDL) cholesterol mass rat [facility] Comment on above: 3.3 - 4.4 LOW RISK4. 4 - 7.1 AVERAGE RISK7.1 - 11.0 MODERATE RISK>11.0 HIGH RISK Urine microalbumin/creatinin e mass ratioon 10-27-2024 Albumin/Creatinine DL <= 20 mg/L (U) [Mass ratio] Urine microalbumin/creatini ne mass ratio 0.0-29.9 [facility] Comment on above: NO MICROALBUMINURIA 0-29 MG/GCLINICAL MICROALBUMINURIA 30-300 MG/GMACROALBUMINURIA >300 MG/G CNOVon 10-20-2024 CNOV Office Visit ([facility] ) LIZZY YEE ([id number]) 1945 M Date Time Provider Department 10/20/24 1:40 PM JAY GONZALEZ [facility] During your visit today, we recorded the following information about you: Temperature Pulse Blood pressure 97 degrees 60/minute 143/78 Jay Gonzalez MD 10/20/2024 2:04 PM Signed [facility] Health - Follow Up [...] Gonzalez MD 10/20/24, 2:03 PM General Surgery [facility] Medical Decision Making: Problems: Low: Stable chronic illness Risk: Minimal: Minimal risk from testing/treatment Medical Decision Making Level: 2 - Straightforward Referring Provider: JAY GONZALEZ [[id number]] Allergies As of Date: 10/20/2024 (No Known [...] Status:Closed by JAY GONZALEZ on 10/20/24 Normal [facility] Cholesterol in LDL Calc [Mas s/Vol]on 08-27-2024 Cholesterol in LDL [Mass/Vol] Cholesterol in LDL [Mass/volume] in Serum or Plasma by calculation [facility] Comment on above: <100 mg/dl [id number] 0-129 mg/dl NEAR OR ABOVE [id number] mg/dl BORDERLINE [id number] mg/dl HIGH>190 mg/dl VERY HIGH Cholesterol in VLDL Calc [Ma ss/Vol]on 08-27-2024 Cholesterol in VLDL [Mass/Vol] Cholesterol in VLDL [Mass/volume] in Serum or Plasma by calculation [facility] Laboratory - Chemistry and C hemistry - challengeon 08-27-2024 Cholesterol [Mass/Vol] 110 mg/dL <=[address] [facility] Cholesterol in HDL [Mass/Vol] 42 mg/dL 40-60 [facility] Comment on above: > or =60 mg/dl - LOW CARDIOVASCULAR RISK<40 mg/dl - HIGH CARDIOVASCULAR RISK Triglyceride [Mass/Vol] 140 mg/dL <=150 [facility] Serum or plasma total choles terol/high density lipoprotein (HDL) cholesterol mass venu 08-27-2024 Cholesterol.total/Maria Dolores sterol in HDL [Mass ratio] Serum or plasma total cholesterol/high density lipoprotein (HDL) cholesterol mass rat [facility] Comment on above: 3.3 - 4.4 LOW [...] purposes. Calculation made for both eyes (OU). [facility] Study observation (narrative) [facility] 36on 05-13-2024 36 Patients Daughter called back and confirms he has NOT been taking the Atorvastatin and has not had a prescription, advised the daughter we would send in a new prescription and recheck his cholesterol in 3 month, Lab order mailed to patient to complete end of June/ july [facility] 36on 05-12-2024 36 Patient calling for echo and lab results. They are scanned into his media planner. Please advise. Thanks. [facility] Office Visiton 05-04-2024 Follow-up visit [id number] Lizzy Yee 1945 M Date Provider Department Center 05/04/2024 271-PEDRO RICHARDSON SONIA Michael Family History Problem Relation Age of Onset Coronary artery disease Mother Coronary artery disease Brother Family Status - Relation Status Age at Mother Brother Level of Service:[address] [place] OFFICE/OUTPATIENT ESTABLISHED MOD MDM 30 MIN Normal [facility] XR knee LT 4V*on 04-21-2024 XR knee LT 4V* [facility] [address] [place] [address] XRay Report Signed Patient: Lizzy Yee MR#: [id number] : 1945 Acct:[id number] Age/Sex: 78 / M ADM Date: 04/21/24 [place] [facility] [place]: Type: [facility] Attending Dr: Ej Anthony II, MD Copies to: Ej Anthony MD Ordering Provider: Ej Anthony MD Date of Service: 04/21/24 XR/XR pelvis 1-2V: M25.562 - Pain in left knee ([id number]) XR/XR knee LT 4V*: M25.562 - Pain [...] Jimenez Jr., D.O.04/21/2024 2:51 PM Dictation Location: [place] [address] Transcribed By: [facility] 04/21/24 1451 Dictated By: Jus Jimenez Jr, DO 04/21/24 1449 Signed By: 04/21/24 1451 Normal [facility] Cholesterol in LDL Calc [Mas s/Vol]on 10-09-2023 Cholesterol in LDL [Mass/Vol] 46.6 mg/dL [facility] Comment on above: <100 mg/dl [id number] 0-129 mg/dl NEAR OR ABOVE [id number] mg/dl BORDERLINE [id number] mg/dl HIGH>190 mg/dl VERY HIGH Cholesterol in VLDL Calc [Ma ss/Vol]on 10-09-2023 Cholesterol in VLDL [Mass/Vol] 14.4 mg/dL [facility] Estimated glomerular filtrat ion rate (GFR) non- Americanon 10-09-2023 GFR/1.73 sq M.predicted among non-blacks MDRD (S/P/Bld) [Vol rate/Area] 54 mL/min/{1.73_m2} >=60 [facility] Globulin Calc (S) [Mass/Vol] on 10-09-2023 Globulin (S) [Mass/Vol] 3.9 g/dL [facility] Glucose mean value [Mass/vol ume] in Blood Estimated from glycated hemoglobinon 10-09-2023 Average glucose Estimated from glycated hemoglobin (Bld) [Mass/Vol] 186 mg/dL [facility] Laboratory - Chemistry and C hemistry - challengeon 10-09-2023 Albumin [Mass/Vol] 3.4 g/dL 3.4-5.0 [facility] ALP [Catalytic activity/Vol] 210 U/L 46-116 [facility] ALT [Catalytic activity/Vol] 236 U/L 16-63 [facility] AST [Catalytic activity/Vol] 169 U/L 15-37 [facility] Bilirubin [Mass/Vol] 0.8 mg/dL 0.2-1.0 [facility] Calcium [Mass/Vol] 9.1 mg/dL 8.5-10.1 [facility] Chloride [Moles/Vol] 101 mmol/L 98-107 [facility] Cholesterol [Mass/Vol] 107 mg/dL <=200 [facility] Cholesterol in HDL [Mass/Vol] 46 mg/dL 40-60 [facility] Comment on above: > or =60 mg/dl - LOW CARDIOVASCULAR RISK<40 mg/dl - HIGH CARDIOVASCULAR RISK CO2 [Moles/Vol] 28.4 mmol/L 21.0-32.0 [facility] Creatinine [Mass/Vol] 1.29 mg/dL 0.70-1.30 [facility] GFR/1.73 sq M.predicted MDRD (S/P/Bld) [Vol rate/Area] mL/min/{1.73_m2} >=60 [facility] Glucose [Mass/Vol] 100 mg/dL 74-106 [facility] Potassium [Moles/Vol] 4.1 mmol/L 3.5-5.1 [facility] Protein [Mass/Vol] 7.3 g/dL 6.4-8.2 [facility] Sodium [Moles/Vol] 140 mmol/L 136-145 [facility] Triglyceride [Mass/Vol] 72 mg/dL <=150 [facility] Urea nitrogen [Mass/Vol] 23.0 mg/dL 7.0-18.0 [facility] Urea nitrogen/Creatinine [Mass ratio] 17.8 mg/mg [facility] Laboratory - Hematology and Cell countson 10-09-2023 HbA1c (Bld) [Mass fraction] 8.1 % 4.5-6.2 [facility] Comment on above: ADA RECOMMENDED LIMI T 4.0 - 6.0ADA THERAPEUTIC TARGET < 7.0ACTION SUGGESTED> 7.0 Microalbumin [Mass/volume] i n Urineon 10-09-2023 Albumin DL <= 20 mg/L (U) [Mass/Vol] mg/dL <=30.0 [facility] No Panel Informationon 10-08 Prostate Specific Antigen Screen 0.27 ng/mL <=4.00 [facility] Serum or plasma albumin/glob ulin mass ratioon 10-09-2023 Albumin/Globulin [Mass ratio] 0.9 {ratio} [facility] Serum or plasma anion gap de terminationon 10-09-2023 Anion gap [Moles/Vol] 14.7 mmol/L [facility] Serum or plasma total choles terol/high density lipoprotein (HDL) cholesterol mass venu 10-09-2023 Cholesterol.total/Maria Dolores sterol in HDL [Mass ratio] 2.3 {ratio} [facility] Comment on above: 3.3 - 4.4 LOW RISK4. 4 - 7.1 AVERAGE RISK7.1 - 11.0 MODERATE RISK>11.0 HIGH RISK Outside Colonoscopyon 2022 Outside Colonoscopy [id number] .00CD:127 Normal [facility] Reminderson 12-18-2022 Reminders - From: Amy Menon LPN To: N - Clinical; Sent: 12/18/2022 12:06:16 EDT Show up: 11/16/2025 07:00:00 EDT Subject: colonoscopy recall Due Date/Time: 12/17/2025 07:00:00 EDT Reminder/Recall Patient due for surveillance colonoscopy 12/17/2025. Normal [facility] POINT OF CARE GLUCOSEon 11-19 Glucose [Mass/Vol] 176 mg/dL Critically high 74-106 [facility] Comment on above: Performed By: #### P OCGLUC #### [facility] [address] [place] [address] [address] Rojelio Kingsley POINT OF CARE GLUCOSEon 11-19 Glucose [Mass/Vol] 157 mg/dL Critically high 74-106 [facility] Comment on above: Performed By: #### P OCGLUC #### [facility] [address] [address] [address] Rojelio Kingsley Consent for Procedure/Surger yon 12-03-2022 Consent for Procedure/Surgery [id number] .00CD:127 Normal [facility] Physician Referralon 023 Physician Referral [id number] .00CD:127 Normal [facility] General Surgery Office/Clini c Noteon [...] anastomosis and ventral hernia repair 09/2021 at [facility], they recommend yearly surveillance sigmoidoscopies; [...] 1 tab(s), (more content not included)... Normal [facility] Comment on above: Result Comment: Elec tronically Signed By: PELON VANESSA, Nya Patel\.br\Date and Time Signed: 12/02/22 11:37 EDT POINT OF CARE GLUCOSEon 04-2 Glucose [Mass/Vol] 121 mg/dL Critically high 74-106 [facility] Comment on above: Performed By: #### P OCGLUC #### [facility] [address] [address] [address] Rojelio Kingsley Consent for Procedure/Surger yon 09-17-2022 Consent for Procedure/Surgery [id number] .00CD:127 [facility] RAD - Ultrasound Reporton RAD - Ultrasound Report [id number] .00CD:127 [facility] Ambulatory Visit Summaryon 0 09-16-2022 Ambulatory Visit [...] no longer receiving treatment for. Hyperlipidemia Normal [facility] Ambulatory Visit Summary LIZZY YEE :1945 [...] (03/06/2016), Cystoscopy (02/18/2016), Urodynamics (01/16/2016), Hernia repair (2013), Hip replacement (08/26/2007), Ventral hernia (08/20/2007), Transrectal [...] no longer receiving treatment for. Hyperlipidemia Normal [facility] General Surgery Office/Clini c Noteon 09-16-2022 General Surgery Office/Clinic Note Chief Complaint discuss need for colonoscopy vs sigmoidoscopy HPI Staff Presents to discuss need for follow up sigmoidoscopy. He is s/p subtotal colectomy for polyposis of the colon. Last colonoscopy completed 06/07/21. Dr. Meidna recommended yearly sigmoidoscopy. He is currently experiencing [...] anastomosis and ventral hernia repair 09/2021 at [facility]; requires yearly flexible sigmoidoscopy for [...] Oral, Nathalie (more content not included)... Normal [facility] Comment on above: Result Comment: Elec tronically Signed By: PELON VANESSA, Nya Patel\ashley\Date and Time Signed: 09/16/22 11:17 EST Alanine Aminotransferaseon 0 - ALT [Catalytic activity/Vol] 30 U/L Normal 16-63 [employer] Other Comment on above: Performed By: #### B MP, ALT, LIPID #### [facility] [address] [place] [address] Dr. Rojelio Kingsley Basic Metabolic Panelon - Calcium [Mass/Vol] 9.0226257 mg/dL 8.5-10 .1 mg/dL [employer] Other CO2 [Moles/Vol] 25.49855651 mmol/L 21.0-3 2.0 mmol/L [employer] Other Creatinine [Mass/Vol] 1.38033504 mg/dL Critically high 0.70-1.30 mg/dL [employer] Other Potassium [Moles/Vol] 4.46201764 mmol/L 3 .5-5.1 mmol/L [facility] [employer] Other Urea nitrogen [Mass/Vol] 16.0029529 mg/dL 7.0-18.0 mg/dL [facility] [employer] Other Basic Metabolic Panel see note [facility] [employer] Other Basic Metabolic Panel 141 mmol/L 136-14 5 mmol/L [facility] [employer] Other Basic Metabolic Panel 134 mg/dL Critically high 74- 106 mg/dL [facility] [employer] Other Basic Metabolic Panel 51 mL/min/1.73m2 Critically low >=60 mL/min/1.73 m2 [facility] [employer] Other Basic Metabolic Panel >60 mL/min/1.73m2 > =60 mL/min/1.73 m2 [facility] [employer] Other Anion gap [Moles/Vol] 15.2 mmol/L Normal No [facility] [employer] Other Comment on above: Performed By: #### B MP, ALT, LIPID #### [facility] [address] [place] [address] Dr. Rojelio Kingsley Chloride [Moles/Vol] 105 mmol/L Normal 98-107 [facility] [employer] Other Comment on above: Performed By: #### B MP, ALT, LIPID #### [facility] [address] [place] [address] Dr. Rojelio Kingsley Urea nitrogen/Creatinine [Mass ratio] 11.8 mg/mg Normal [facility] [employer] Other Comment on above: Performed By: #### B MP, ALT, LIPID #### [facility] [address] [place] [address] Dr. Rojelio Kingsley CBC AUTO DIFFon 09-12-2022 BASO # 0.0 103/ul Normal 0.0-0.1 [facility] Comment on above: Performed By: #### C BC #### [facility] [address] [place] [address] Dr. Rojelio Kingsley Basophils/100 WBC (Bld) 0.4 % Normal 0.2-2.0 [facility] Comment on above: Performed By: #### C BC #### [facility] [address] [place] [address] Dr. Rojelio Kingsley EO # 0.3 103/ul Normal 0.0-0.7 [facility] Comment on above: Performed By: #### C BC #### [facility] [address] [place] [address] Dr. Rojelio Kingsley Eosinophils/100 WBC (Bld) 3.6 % Normal 0.9-7.0 [facility] Comment on above: Performed By: #### C BC #### [facility] [address] [place] [address] Dr. Rojelio Kingsley Erythrocyte distribution width (RBC) [Ratio] 14.1 % Normal 11.0-15.0 [facility] Comment on above: Performed By: #### C BC #### [facility] [address] [place] [address] Dr. Rojelio Kingsley Hematocrit (Bld) [Volume fraction] 40.1 % Critically low 42.0-54.0 [facility] Comment on above: Performed By: #### C BC #### [facility] [address] [place] [address] Dr. Rojelio Kingsley Hemoglobin (Bld) [Mass/Vol] 13.4 g/dL Critically low 14.0-18.0 [facility] Comment on above: Performed By: #### C BC #### [facility] [address] [place] [address] Dr. Rojelio Kingsley IG # 0.02 10e3/ul Normal 0.00-0.03 [facility] Comment on above: Performed By: #### C BC #### [facility] [address] [place] [address] Dr. Rojelio Kingsley IG % 0.2 % Normal 0.0-0.5 [facility] Comment on above: Performed By: #### C BC #### [facility] [address] [place] [address] Dr. Rojelio Kingsley LYMPH # 1.8 103/ul Normal 1.2-3.8 [facility] Comment on above: Performed By: #### C BC #### [facility] [address] [place] [address] Dr. Rojelio Kingsley Lymphocytes/100 WBC (Bld) 21.9 % Normal 20.5-60.0 [facility] Comment on above: Performed By: #### C BC #### [facility] [address] [place] [address] Dr. Rojelio Kingsley MANUAL DIFF REQ NO Normal [facility] Comment on above: Performed By: #### C BC #### [facility] [address] [place] [address] Dr. Rojelio Kingsley MCH (RBC) [Entitic mass] 30.6 pg Normal 25.9-34.0 [facility] Comment on above: Performed By: #### C BC #### [facility] [address] [place] [address] Dr. Rojelio Kingsley MCHC (RBC) [Mass/Vol] 33.4 g/dL Normal 29.9-35.2 [facility] Comment on above: Performed By: #### C BC #### [facility] [address] [place] [address] Dr. Rojelio Kingsley MCV (RBC) [Entitic vol] 91.6 fL Normal 80.0-94.0 [facility] Comment on above: Performed By: #### C BC #### [facility] [address] [place] [address] Dr. Rojelio Kingsley MONO # 0.8 103/ul Normal 0.3-0.8 [facility] Comment on above: Performed By: #### C BC #### [facility] [address] [place] [address] Dr. Rojelio Kingsley Monocytes/100 WBC (Bld) 9.3 % Normal 1.7-12.0 [facility] Comment on above: Performed By: #### C BC #### [facility] [address] [place] [address] Dr. Rojelio Kingsley NEUT # 5.4 103/ul Normal 1.4-6.5 [facility] Comment on above: Performed By: #### C BC #### [facility] [address] [address] [address] Rojelio Kingsley Neutrophils/100 WBC (Bld) 64.6 % Normal 43.0-75.0 [facility] Comment on above: Performed By: #### C BC #### [facility] [address] [address] [address] Rojelio Kingsley Platelet mean volume (Bld) [Entitic vol] 10.3 fL Normal 9.5-13.5 [facility] Comment on above: Performed By: #### C BC #### [facility] [address] [place] [address] Dr. Rojelio Kingsley PLT 214 103/ul Normal 150-450 [facility] Comment on above: Performed By: #### C BC #### [facility] [address] [place] [address] Dr. Rojelio Kingsley RBC 4.38 106/ul Critically low 4.70-6.10 [facility] Comment on above: Performed By: #### C BC #### [facility] [address] [place] [address] Dr. Rojelio Kingsley WBC 8.4 103/ul Normal 4.0-11.0 [facility] Comment on above: Performed By: #### C BC #### [facility] [address] [place] [address] Dr. Rojelio Kingsley GLYCOHEMOGLOBIN A1Con 2022 ADA RECOMMENDATION SEE BELOW Normal [facility] Comment on above: Result Comment: ADA RECOMMENDED LIMIT 4.0 - 6.0 ADA THERAPEUTIC TARGET < 7.0 ACTION SUGGESTED > 7.0 Performed By: #### P OCGLUC #### [facility] [address] [place] [address] Dr. Rojelio Kingsley Glucose [Mass/Vol] 169 mg/dL Normal [facility] Comment on above: Performed By: #### P OCGLUC #### [facility] [address] [place] [address] Dr. Rojelio Kingsley HbA1c (Bld) [Mass fraction] 7.5 % Critically high 4.5-6.2 [facility] Comment on above: Performed By: #### P OCGLUC #### [facility] [address] [place] [address] Dr. Rojelio Kingsley LIPID PROFILEon 09-12-2022 CHOL-HDL RATIO NORM SEE BELOW Normal [facility] Comment on above: Result Comment: 3.3 - 4.4 LOW RISK 4.4 - 7.1 AVERAGE RISK 7.1 - 11.0 MODERATE RISK >11.0 HIGH RISK Performed By: #### B MP, ALT, LIPID #### [facility] [address] [address] [address] Rojelio Kingsley Cholesterol in LDL [Mass/Vol] 31.2 mg/dL Normal [facility] Comment on above: Performed By: #### B MP, ALT, LIPID #### [facility] [address] [place] [address] Dr. Rojelio Kingsley HDL NORMAL > or = 60 mg/dl - LO W CARDIOVASCULAR RISK <40 mg/dl - HIGH CARDIOVASCULAR RISK Normal [facility] Comment on above: Performed By: #### B MP, ALT, LIPID #### [facility] [address] [address] [address] Rojelio Kingsley LDL CALC NORMAL SEE BELOW Normal [facility] Comment on above: Result Comment: <100 mg/dl OPTIMAL 100 - 129 mg/dl NEAR OR ABOVE OPTIMAL 130 - 159 mg/dl BORDERLINE HIGH 160 - 189 mg/dl HIGH >190 mg/dl VERY HIGH Performed By: #### B MP, ALT, LIPID #### [facility] [address] [place] [address] Dr. Rojelio Kingsley VLDL CALC 40.8 mg/dL Normal [facility] Comment on above: Performed By: #### B MP, ALT, LIPID #### [facility] [address] [place] [address] Dr. Rojelio Kingsley Lipid Panelon 09-12-2022 Lipid Panel > or = 60 mg/dl - LO W CARDIOVASCULAR RISK <40 mg/dl - HIGH CARDIOVASCULAR RISK [employer] Other Lipid Panel SEE BELOW [employer] Other Lipid Panel 31.2 mg/dL [facility] [employer] Other Lipid Panel 40.8 mg/dL [facility] [employer] Other Cholesterol [Mass/Vol] 115 mg/dL Normal <=200 [facility] [employer] Other Comment on above: Performed By: #### B MP, ALT, LIPID #### [facility] [address] [place] [address] Dr. Rojelio Kingsley Cholesterol in HDL [Mass/Vol] 43 mg/dL Normal 40-60 [facility] [employer] Other Comment on above: Performed By: #### B MP, ALT, LIPID #### [facility] [address] [place] [address] Dr. Rojelio Kingsley Cholesterol.total/Maria Dolores sterol in HDL [Mass ratio] 2.7 {ratio} Normal [facility] [employer] Other Comment on above: Performed By: #### B MP, ALT, LIPID #### [facility] [address] [place] [address] Dr. Rojelio Kingsley Triglyceride [Mass/Vol] 204 mg/dL Critically high <=150 [facility] [employer] Other Comment on above: Performed By: #### B MP, ALT, LIPID #### [facility] [address] [place] [address] Dr. Rojelio Kingsley MICROALBUMIN, RAND URon -2 mALB 2.1 mg/L Normal <=30.0 [facility] Comment on above: Performed By: #### M ALBR #### [facility] [address] [place] [address] Dr. Rojelio Kingsley PROF CHEM 8 (BAS METB)on Calcium [Mass/Vol] 9.6 mg/dL Normal 8.5-10.1 [facility] Comment on above: Performed By: #### B MP, ALT, LIPID #### [facility] [address] [place] [address] Dr. Rojelio Kingsley CO2 [Moles/Vol] 25.1 mmol/L Normal 21.0-32.0 [facility] Comment on above: Performed By: #### B MP, ALT, LIPID #### [facility] [address] [address] [address] Rojelio Kingsley Creatinine [Mass/Vol] 1.36 mg/dL Critically high 0.70-1.30 [facility] Comment on above: Performed By: #### B MP, ALT, LIPID #### [facility] [address] [address] [address] Rojelio Kingsley EGFR-AF [facility] >60 Normal >=60 [facility] Comment on above: Performed By: #### B MP, ALT, LIPID #### [facility] [address] [address] [address] Rojelio Kingsley EGFR-NON AF [facility] 51 mL/min/1.73m2 Critically low >=60 [facility] Comment on above: Performed By: #### B MP, ALT, LIPID #### [facility] [address] [place] [address] Dr. Rojelio Kingsley Glucose [Mass/Vol] 134 mg/dL Critically high 74-106 [facility] Comment on above: Performed By: #### B MP, ALT, LIPID #### [facility] [address] [place] [address] Dr. Rojelio Kingsley Potassium [Moles/Vol] 4.3 mmol/L Normal 3.5-5.1 [facility] Comment on above: Performed By: #### B MP, ALT, LIPID #### [facility] [address] [place] [address] Dr. Rojelio Kingsley Sodium [Moles/Vol] 141 mmol/L Normal 136-145 [facility] Comment on above: Performed By: #### B MP, ALT, LIPID #### [facility] [address] [place] [address] Dr. Rojelio Kingsley Urea nitrogen [Mass/Vol] 16.0 mg/dL Normal 7.0-18.0 [facility] Comment on above: Performed By: #### B MP, ALT, LIPID #### [facility] [address] [address] [address] Rojelio Kingsley US CAROTID ART BILon 09-12- 023 US CAROTID ART ZHENG EXAMINATION: US [...] PADILLA Date: 2022-09-12 15:[address] [facility] US CAROTID ART ZHENG [employer] Other POINT OF CARE GLUCOSEon 06-19 Glucose [Mass/Vol] 106 mg/dL Normal 74-106 [facility] Comment on above: Performed By: #### P OCGLUC #### [facility] [address] [place] [address] Dr. Rojelio Kingsley Covid-19 PCR ([facility])on SARS-CoV-2 (COVID-19) RNA MITCHELL+probe Ql (Unsp spec) Not detected Normal NOT DETECTED [facility] Comment on above: Result Comment: This test is not yet approved or cleared by the [place] FDA. When there are no FDA-approved or cleared tests available, and other criteria are met, FDA can make tests available under an emergency access mechanism called an Emergency Use Authorization (EUA). The EUA for this test is supported by the [employer] Operator of Health and Human Service's (HHS's) [...] Performed By: #### P OCGLUC #### [facility] [address] [address] [address] Rojelio Kingsley POINT OF CARE GLUCOSEon 10- Glucose [Mass/Vol] 129 mg/dL Critically high 74-106 [facility] Comment on above: Performed By: #### P OCGLUC #### [facility] [address] [address] [address] Rojelio Kingsley POINT OF CARE GLUCOSEon - Glucose [Mass/Vol] 116 mg/dL Critically high 74-106 [facility] Comment on above: Performed By: #### P OCGLUC #### [facility] [address] [place] [address] Dr. Rojelio Kingsley XR LSPINE 2_3 VIEWSon 2021 XR LSPINE 2_3 VIEWS EXAMINATION: XR LSPINE 2_3 VIEWS HISTORY: Lumbosacral spondylosis with radiculopathy [...] PADILLA Date: 2022-03-05 13:06 Normal [facility] CBC AUTO DIFFon 02-22-2022 BASO # 0.0 103/ul Normal 0.0-0.1 [facility] Comment on above: Performed By: #### P OCGLUC #### [facility] [address] [address] [address] Rojelio Kingsley Basophils/100 WBC (Bld) 0.4 % Normal 0.2-2.0 [facility] Comment on above: Performed By: #### P OCGLUC #### [facility] [address] [address] [address] Rojelio Kingsley EO # 0.3 103/ul Normal 0.0-0.7 [facility] Comment on above: Performed By: #### P OCGLUC #### [facility] [address] [address] [address] Rojelio Kingsley Eosinophils/100 WBC (Bld) 3.0 % Normal 0.9-7.0 [facility] Comment on above: Performed By: #### P OCGLUC #### [facility] [address] [place] [address] Dr. Rojelio Kingsley Erythrocyte distribution width (RBC) [Ratio] 14.4 % Normal 11.0-15.0 [facility] Comment on above: Performed By: #### P OCGLUC #### [facility] [address] [place] [address] Dr. Rojelio Kingsley Hematocrit (Bld) [Volume fraction] 37.1 % Critically low 42.0-54.0 [facility] Comment on above: Performed By: #### P OCGLUC #### [facility] [address] [place] [address] Dr. Rojelio Kingsley Hemoglobin (Bld) [Mass/Vol] 12.2 g/dL Critically low 14.0-18.0 [facility] Comment on above: Performed By: #### P OCGLUC #### [facility] [address] [place] [address] Dr. Rojelio Kingsley IG # 0.03 10e3/ul Normal 0.00-0.03 [facility] Comment on above: Performed By: #### P OCGLUC #### [facility] [address] [place] [address] Dr. Rojelio Kingsley IG % 0.4 % Normal 0.0-0.5 [facility] Comment on above: Performed By: #### P OCGLUC #### [facility] [address] [address] [address] Rojelio Kingsley LYMPH # 1.8 103/ul Normal 1.2-3.8 [facility] Comment on above: Performed By: #### P OCGLUC #### [facility] [address] [address] [address] Rojelio Kingsley Lymphocytes/100 WBC (Bld) 21.6 % Normal 20.5-60.0 [facility] Comment on above: Performed By: #### P OCGLUC #### [facility] [address] [address] [address] Rojelio Kingsley MANUAL DIFF REQ NO Normal [facility] Comment on above: Performed By: #### P OCGLUC #### [facility] [address] [place] [address] Dr. Rojelio Kingsley MCH (RBC) [Entitic mass] 30.0 pg Normal 25.9-34.0 [facility] Comment on above: Performed By: #### P OCGLUC #### [facility] [address] [address] [address] Rojelio Kingsley MCHC (RBC) [Mass/Vol] 32.9 g/dL Normal 29.9-35.2 [facility] Comment on above: Performed By: #### P OCGLUC #### [facility] [address] [address] [address] Rojelio Kingsley MCV (RBC) [Entitic vol] 91.4 fL Normal 80.0-94.0 [facility] Comment on above: Performed By: #### P OCGLUC #### [facility] [address] [address] [address] Rojelio Kingsley MONO # 0.7 103/ul Normal 0.3-0.8 [facility] Comment on above: Performed By: #### P OCGLUC #### [facility] [address] [address] [address] Rojelio Kingsley Monocytes/100 WBC (Bld) 8.4 % Normal 1.7-12.0 [facility] Comment on above: Performed By: #### P OCGLUC #### [facility] [address] [address] [address] Rojelio Kingsley NEUT # 5.5 103/ul Normal 1.4-6.5 [facility] Comment on above: Performed By: #### P OCGLUC #### [facility] [address] [address] [address] Rojelio Kingsley Neutrophils/100 WBC (Bld) 66.2 % Normal 43.0-75.0 [facility] Comment on above: Performed By: #### P OCGLUC #### [facility] [address] [address] [address] Rojelio Kingsley Platelet mean volume (Bld) [Entitic vol] 10.3 fL Normal 9.5-13.5 [facility] Comment on above: Performed By: #### P OCGLUC #### [facility] [address] [address] [address] Rojelio Kingsley PLT 202 103/ul Normal 150-450 [facility] Comment on above: Performed By: #### P OCGLUC #### [facility] [address] [address] [address] Rojelio Kingsley RBC 4.06 106/ul Critically low 4.70-6.10 [facility] Comment on above: Performed By: #### P OCGLUC #### [facility] [address] [address] [address] Rojelio Kingsley WBC 8.3 103/ul Normal 4.0-11.0 [facility] Comment on above: Performed By: #### P OCGLUC #### [facility] [address] [address] [address] Rojelio Kingsley GLYCOHEMOGLOBIN A1Con 2021 ADA RECOMMENDATION SEE BELOW Normal [facility] Comment on above: Result Comment: ADA RECOMMENDED LIMIT 4.0 - 6.0 ADA THERAPEUTIC TARGET < 7.0 ACTION SUGGESTED > 7.0 Performed By: #### A 1C #### [facility] [address] [address] [address] Rojelio Kingsley Glucose [Mass/Vol] 151 mg/dL Normal [facility] Comment on above: Performed By: #### A 1C #### [facility] [id number] Rojelio Kingsley HbA1c (Bld) [Mass fraction] 6.9 % Critically high 4.5-6.2 [facility] Comment on above: Performed By: #### A 1C #### [facility] [address] [address] [address] Rojelio Kingsley Consultation Noteon 02-19-20 22 Consultation Note [id number]:127 Normal [facility] KNEE RIGHT 3 VWSon 1 KNEE RIGHT [address] [facility] Department of Radiology [address] [place] [id number] Patient Name: LIZZY YEE : 1945 Sex: M Age: Race: White Pt. Location: Patient Status: Ordered Date: 01/09/2021 1:10:00 PM Completed Date: 01/09/2021 01:11 PM Requesting Provider: TY AVALOS Attending Provider: Report Copy To: Signs & Symptoms: Z96.659 Presence of unspecified artificial knee joint I10 History: Comments: Exam: KNEE RIGHT 3 VWS KNEE RIGHT 3 VWS HISTORY: Knee replacement, follow-up. COMPARISON: 12/26/2020. IMPRESSION: 1. Redemonstrated total knee prosthesis, no hardware complication or acute abnormality. No significant joint effusion. Mild soft tissue swelling noted. Electronically signed: Mitul Banks. Transcribed by: [email or web address], User Resident: Electronically Signed by: MITUL BANKS @ 01/09/2021 08:47 PM Normal [facility] POC GLUCOSE LABon 12-29-2020 Glucose [Mass/Vol] 194 mg/dL High 70-100 [facility] Comment on above: Performed By: #### [id number] #### [facility] [address] [place] [address], [place] Glucose [Mass/Vol] 125 mg/dL High 70-100 [facility] Comment on above: Performed By: #### [id number] #### [facility] [address] [place] [address], [place] POC GLUCOSE LABon 12-28-2020 Glucose [Mass/Vol] 197 mg/dL High 70-100 [facility] Comment on above: Performed By: #### [id number] #### [facility] [address] [place] [address], [place] Glucose [Mass/Vol] 177 mg/dL High 70-100 [facility] Comment on above: Performed By: #### [id number] #### [facility] [address] [place] [address], [place] Glucose [Mass/Vol] 215 mg/dL High 70-100 [facility] Comment on above: Performed By: #### [id number] #### [facility] [address] [place] [address], [place] Glucose [Mass/Vol] 152 mg/dL High 70-100 [facility] Comment on above: Performed By: #### [id number] #### [facility] [address] [place] [address], [place] BASIC METABOLIC PANELon 06-1 0-2021 Calcium [Mass/Vol] 8.2 mg/dL Low 8.6-10.3 [facility] Comment on above: Order Comment: No: D o not add to previous draw Performed By: #### [id number] #### [facility] [address] [place] [address], [place] Chloride [Moles/Vol] 102 mmol/L Normal 98-[address] [facility] Comment on above: Order Comment: No: D o not add to previous draw Performed By: #### [id number] #### [facility] [address] [place] [address], [place] CO2 [Moles/Vol] 23 mmol/L Normal 21-31 [facility] Comment on above: Order Comment: No: D o not add to previous draw Performed By: #### [id number] #### [facility] [address] [place] [address], [place] Creatinine [Mass/Vol] 0.97 mg/dL Normal 0.70-1.[address] [facility] Comment on above: Order Comment: No: D o not add to previous draw Performed By: #### [id number] #### [facility] [address] [place] [address], [place] GFR/1.73 sq M.predicted among blacks MDRD (S/P/Bld) [Vol rate/Area] mL/min/{1.73_m2} Normal >[address] [facility] Comment on above: Order Comment: No: D o not add to previous draw Result Comment: Calc ulation may not be valid for patients over 70 years Performed By: #### [id number] #### [facility] [address] [place] [address], [place] GFR/1.73 sq M.predicted among non-blacks MDRD (S/P/Bld) [Vol rate/Area] mL/min/{1.73_m2} Normal >[address] [facility] Comment on above: Order Comment: No: D o not add to previous draw Result Comment: Calc ulation may not be valid for patients over 70 years Performed By: #### [id number] #### [facility] [address] [place] [address], [place] Glucose [Mass/Vol] 191 mg/dL High 70-100 [facility] Comment on above: Order Comment: No: D o not add to previous draw Performed By: #### [id number] #### [facility] [address] [place] [address], [place] Potassium [Moles/Vol] 3.8 mmol/L Normal 3.5-5.[address] [facility] Comment on above: Order Comment: No: D o not add to previous draw Performed By: #### [id number] #### [facility] [address] [place] [address], [place] Sodium [Moles/Vol] 134 mmol/L Low 136-145 [facility] Comment on above: Order Comment: No: D o not add to previous draw Performed By: #### [id number] #### [facility] [address] [place] [address], [facility] Urea nitrogen [Mass/Vol] 23 mg/dL Normal 7-[address] [facility] Comment on above: Order Comment: No: D o not add to previous draw Performed By: #### [id number] #### [facility] [address] [place] [address], [facility] CBC COMPLETE BLOOD COUNTon 0 - Erythrocyte distribution width (RBC) [Ratio] 13.3 % Normal 11.5-15.[address] [facility] Comment on above: Order Comment: No: D o not add to previous draw Performed By: #### [id number] #### [facility] [address] [place] [address], [place] Hematocrit (Bld) [Volume fraction] 35.4 % Low 39.0-50.[address] [facility] Comment on above: Order Comment: No: D o not add to previous draw Performed By: #### [id number] #### [facility] [address] [place] [address], [facility] Hemoglobin (Bld) [Mass/Vol] 11.7 g/dL Low 13.0-17.0 [facility] Comment on above: Order Comment: No: D o not add to previous draw Performed By: #### [id number] #### [facility] [address] [place] [address], [facility] MCH (RBC) [Entitic mass] 31.2 pg Normal 27.0-33.[address] [facility] Comment on above: Order Comment: No: D o not add to previous draw Performed By: #### [id number] #### [facility] [address] [place] [address], [facility] MCHC (RBC) [Mass/Vol] 33.1 g/dL Normal 32.0-35.[address] [facility] Comment on above: Order Comment: No: D o not add to previous draw Performed By: #### [id number] #### [facility] [address] [place] [address], [facility] MCV (RBC) [Entitic vol] 94.4 fL Normal 82.0-98.0 [facility] Comment on above: Order Comment: No: D o not add to previous draw Performed By: #### [id number] #### [facility] [address] [place] [address], [facility] Nucleated RBC/100 WBC (Bld) [Ratio] 0 % Normal 0-[address] [facility] Comment on above: Order Comment: No: D o not add to previous draw Performed By: #### [id number] #### [facility] [address] [place] [address], [facility] PLAT CNT 177 10*3/uL Normal 150-400 The [place] Comment on above: Order Comment: No: D o not add to previous draw Performed By: #### [id number] #### [facility] [address] [place] [address], [facility] RBC (Bld) [#/Vol] 3.75 10*6/uL Low 4.20-5.70 [facility] Comment on above: Order Comment: No: D o not add to previous draw Performed By: #### [id number] #### [facility] [address] [place] [id number], [facility] WBC (Bld) [#/Vol] 16.83 10*3/uL High 4.00-10.[address] [facility] Comment on above: Order Comment: No: D o not add to previous draw Performed By: #### [id number] #### [facility] [address] [place] [address], [facility] Operative Reporton 1 Operative Report MR#: [id number] [facility] Pt. Name: Lizzy Yee Room #: [id number] Discharge Date: Birthdate: 1945 OPERATIVE REPORT DATE [...] surgery. 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 The patient signed the consent form. Site was marked. We proceed with IV antibiotics in the form of 2 g of Ancef within an hour of the incision. PROCEDURE IN DETAIL: After written consent obtained, site was marked. The patient was taken to the [facility] OR and was seen by anesthesia. [...] not included)... Normal [facility] POC GLUCOSE LABon 12-27-2020 Glucose [Mass/Vol] 200 mg/dL High 70-100 [facility] Comment on above: Performed By: #### [id number] #### [facility] [address] [place] [address], [place] Glucose [Mass/Vol] 186 mg/dL High 70-100 [facility] Comment on above: Performed By: #### [id number] #### [facility] [address] [place] [address], [place] Glucose [Mass/Vol] 250 mg/dL High 70-100 [facility] Comment on above: Performed By: #### [id number] #### [facility] [address] [place] [address], [place] Glucose [Mass/Vol] 177 mg/dL High 70-100 [facility] Comment on above: Performed By: #### [id number] #### [facility] [address] [place] [address], [place] POC GLUCOSE LABon 12-26-2020 Glucose [Mass/Vol] 230 mg/dL High 70-100 [facility] Comment on above: Performed By: #### [id number] #### [facility] [address] [place] [address], [place] Glucose [Mass/Vol] 278 mg/dL High 70-100 [facility] Comment on above: Performed By: #### [id number] #### [facility] [address] [place] [address], [place] Glucose [Mass/Vol] 174 mg/dL High 70-100 [facility] Comment on above: Performed By: #### [id number] #### [facility] [address] [place] [address], [place] Glucose [Mass/Vol] 146 mg/dL High 70-100 [facility] Comment on above: Performed By: #### 8 [id number] #### [facility] [address] [place] [address], [place] PORTABLE KNEE RIGHT [address] [facility] 12-26-2020 PORTABLE KNEE RIGHT 2 [facility] Department of Radiology [address] [place] [id number] Patient Name: LIZZY YEE : 1945 Sex: M Age: Race: White Pt. Location: [place] [address] Patient Status: I Ordered Date: 12/26/2020 7:05:00 AM Completed Date: 12/26/2020 01:31 PM Requesting Provider: DANO CANO Attending Provider: HONG SCOTT Report Copy To: Signs & Symptoms: Post OP History: Comments: Hardware Evaluation, In PACU; Exam: PORTABLE KNEE RIGHT 2 VWS PORTABLE KNEE RIGHT 2 VWS 12/26/2020 1:31 [...] replacement. Electronically signed: José Thornton. Transcribed by: [email or web address], User Resident: JOSÉ THORNTON Electronically Signed by: JOSÉ THORNTON @ 12/26/2020 03:28 PM I personally read this/these film(s) with this resident Normal [facility] Comment on above: Order Comment: Hardw are Evaluation, In PACU; HIP RIGHT 1 OR 2 VWS WITH PE LVISon 10-05-2020 HIP RIGHT 1 OR 2 VWS WITH PELVIS [facility] Department of Radiology [address] [place] [id number] Patient Name: LIZZY YEE : 1945 Sex: [...] RIGHT 1 OR 2 VWS WITH PELVIS HIP RIGHT 1 OR 2 VWS WITH PELVIS HISTORY: Hip pain, history of prior surgery. COMPARISON: None. IMPRESSION: 1. Right hip prosthesis, no hardware complication or acute abnormality. 2. Osteopenia, no fracture. No malalignment. If there is concern for occult fracture consider cross-sectional imaging. Left hip arthritis with mild joint space narrowing. Electronically signed: Mitul Banks. Transcribed by: [email or web address], User Resident: Electronically Signed by: MITUL BANKS @ 10/05/2020 01:08 PM Normal [facility] Comment on above: Order Comment: Views (X-RAY, HIP): AP Pelvis, X-Table Lateral Hip , Weight Bearing?: Y KNEE LEFT 4VWSon 08-20-2020 KNEE LEFT 4VWS [facility] Department of Radiology [address] [place] [id number] Patient Name: LIZZY YEE : 1945 Sex: M Age: Race: White Pt. Location: 84 Patient Status: O Ordered Date: 08/20/2020 8:10:00 AM Completed Date: 08/20/2020 08:14 AM Requesting Provider: CEDRICK WILD Attending Provider: CEDRICK WILD Report Copy To: Signs & Symptoms: M25.569 Pain in unspecified knee I10 History: [place] Comments: Views (X-RAY, KNEE): AP, Lateral, Tunnel, [place] , Weight Bearing?: Y Exam: KNEE LEFT 4VWS KNEE LEFT 4VWS 08/20/2020 8:14 AM CLINICAL INDICATIONS: M25.569 Pain in unspecified knee I10 TECHNOLOGIST COMMENTS: Patient states having bilateral knee pain. QUESTION FOR THE RADIOLOGIST: Views (X-RAY, KNEE): AP, Lateral, Tunnel, [place] , Weight Bearing?: Y PROTOCOL: AP,Lateral,Tunnel and [...] reports Electronically signed: Ej Francisco. Transcribed by: [email or web address], User Resident: TAMERA MARIE Electronically Signed by: EJ FRANCISCO @ 08/20/2020 08:41 AM I personally read this/these film(s) with this resident Normal [facility] Comment on above: Order Comment: Views (X-RAY, KNEE): AP, Lateral, Tunnel, [place] , Weight Bearing?: Y KNEE RIGHT [address] [facility] 1 KNEE RIGHT 4 [facility] Department of Radiology [address] [place] [id number] Patient Name: LIZZY YEE : 1945 Sex: M Age: Race: White Pt. Location: Patient Status: O Ordered Date: 08/20/2020 8:10:00 AM Completed Date: 08/20/2020 08:14 AM Requesting Provider: CEDRICK WILD Attending Provider: CEDRICK WILD Report Copy To: Signs & Symptoms: M25.569 Pain in unspecified knee I10 History: [place] Comments: Views (X-RAY, KNEE): AP, Lateral, Tunnel, [place] , Weight Bearing?: Y Exam: KNEE RIGHT 4 [facility] KNEE RIGHT 4 [facility] 08/20/2020 8:14 AM SIGNS AND SYMPTOMS: M25.569 Pain in unspecified knee I10 TECHNOLOGIST COMMENTS: Patient states having bilateral knee pain. QUESTION FOR THE RADIOLOGIST: Views (X-RAY, KNEE): AP, Lateral, Tunnel, [place] , Weight Bearing?: Y PROTOCOL: AP,Lateral,Tunnel and [...] knee. Electronically signed: Ej Francisco. Transcribed by: [email or web address], User Resident: Electronically Signed by: EJ FRANCISCO @ 08/20/2020 08:30 AM Normal [facility] Comment on above: Order Comment: Views (X-RAY, KNEE): AP, Lateral, Tunnel, [place] , Weight Bearing?: Y Vital Signs Date Time Vital Sign Value Performing Clinician Facility 03-16-2025 11:32-0400 Body height 165.1 cm Phillip Bingham DPM Work Phone: [facility] 03-16-2025 11:32-0400 Body mass index (BMI) [Ratio] 37.44 kg/m2 Phillip Bingham DPM Work Phone: [facility] 03-16-2025 11:32-0400 Body weight 102.06 kg Phillip Bingham DPM Work Phone: [facility] 03-16-2025 11:32-0400 Respiratory rate 18 /min Phillip Bingham DPM Work Phone: [facility] 03-14-2025 14:53-0400 Body temperature 96.91 [degF] Jay Gonzalez MD Work Phone: [facility] 03-14-2025 14:53-0400 Diastolic blood pressure 76 mm[Hg] Jay Gonzalez MD Work Phone: [facility] 03-14-2025 14:53-0400 Heart rate 60 /min Jay Gonzalez MD Work Phone: [facility] 03-14-2025 14:53-0400 SaO2% (BldA) [Mass fraction] 99 % Jay Gonzalez MD Work Phone: [facility] 03-14-2025 14:53-0400 Systolic blood pressure 125 mm[Hg] Jay Gonzalez MD Work Phone: [facility] 03-13-2025 11:40-0400 Body height 161.29 cm Juancarlos Cuenca DO Work Phone: [facility] 03-13-2025 11:40-0400 Body mass index (BMI) [Ratio] 37.2 kg/m2 Juancarlos Ball DO Work Phone: [facility] 03-13-2025 11:40-0400 Body weight 96.78 kg Juancarlos Ball DO Work Phone: [facility] 03-13-2025 11:40-0400 Diastolic blood pressure 64 mm[Hg] Juancarlos Ball DO Work Phone: [facility] 03-13-2025 11:40-0400 Heart rate 57 /min Juancarlos Ball DO Work Phone: [facility] 03-13-2025 11:40-0400 Respiratory rate 12 /min Juancarlos Ball DO Work Phone: [facility] 03-13-2025 11:40-0400 Systolic blood pressure 121 mm[Hg] Juancarlos Ball DO Work Phone: [facility] 02-24-2025 13:45-0400 Diastolic blood pressure 88 mm[Hg] Deangelo El MD Work Phone: [facility] 02-24-2025 13:45-0400 Heart rate 61 /min Deangelo El MD Work Phone: [facility] 02-24-2025 13:45-0400 Respiratory rate 15 /min Deangelo El MD Work Phone: [facility] 02-24-2025 13:45-0400 SaO2% (BldA) [Mass fraction] 100 % Deangelo El MD Work Phone: [facility] 02-24-2025 13:45-0400 Systolic blood pressure 141 mm[Hg] Deangelo El MD Work Phone: [facility] 02-24-2025 13:14-0400 Body temperature 96.8 [degF] Deangelo El MD Work Phone: [facility] 02-10-2025 13:39-0400 Body height 165.1 cm [facility] 1 Work Phone: [facility] 02-10-2025 13:39-0400 Body mass index (BMI) [Ratio] 35.22 kg/m2 Pacc 1 Work Phone: [facility] 02-10-2025 13:39-0400 Body temperature 97.11 [degF] Pacc 1 Work Phone: [facility] 02-10-2025 13:39-0400 Body weight 96 kg Pacc 1 Work Phone: [facility] 02-10-2025 13:39-0400 Diastolic blood pressure 63 mm[Hg] Pacc 1 Work Phone: [facility] 02-10-2025 13:39-0400 Heart rate 58 /min Pacc 1 Work Phone: [facility] 02-10-2025 13:39-0400 Respiratory rate 16 /min Pacc 1 Work Phone: [facility] 02-10-2025 13:39-0400 SaO2% (BldA) [Mass fraction] 97 % Pacc 1 Work Phone: [facility] 02-10-2025 13:39-0400 Systolic blood pressure 107 mm[Hg] Pacc 1 Work Phone: [facility] 02-09-2025 11:42-0400 Body height 165.1 cm Jay Gonzalez MD Work Phone: [facility] 02-09-2025 11:42-0400 Body mass index (BMI) [Ratio] 34.28 kg/m2 Jay Gonzalez MD Work Phone: [facility] 02-09-2025 11:42-0400 Body temperature 97.11 [degF] Jay Gonzalez MD Work Phone: [facility] 02-09-2025 11:42-0400 Body weight 93.44 kg Jay Gonzalez MD Work Phone: [facility] 02-09-2025 11:42-0400 Diastolic blood pressure 70 mm[Hg] Jay Gonzalez MD Work Phone: [facility] 02-09-2025 11:42-0400 Heart rate 56 /min Jay Gonzalez MD Work Phone: [facility] 02-09-2025 11:42-0400 Systolic blood pressure 131 mm[Hg] Jay Gonzalez MD Work Phone: [facility] 01-26-2025 12:38-0400 Body height 161.29 cm Juancarlos Ball DO Work Phone: [facility] 01-26-2025 12:38-0400 Body mass index (BMI) [Ratio] 37.2 kg/m2 Juancarlos Ball DO Work Phone: [facility] 01-26-2025 12:38-0400 Body weight 96.78 kg Juancarlos Ball DO Work Phone: [facility] 01-26-2025 12:38-0400 Diastolic blood pressure 62 mm[Hg] Juancarlos Ball DO Work Phone: [facility] 01-26-2025 12:38-0400 Heart rate 56 /min Juancarlos Ball DO Work Phone: [facility] 01-26-2025 12:38-0400 Respiratory rate 12 /min Juancarlos Ball DO Work Phone: [facility] 01-26-2025 12:38-0400 Systolic blood pressure 117 mm[Hg] Juancarlos Ball DO Work Phone: [facility] 01-05-2025 10:40-0400 Body height 165.1 cm Phillip Bingham DPM Work Phone: [facility] 01-05-2025 10:40-0400 Body mass index (BMI) [Ratio] 37.44 kg/m2 Phillip Bingham DPM Work Phone: [facility] 01-05-2025 10:40-0400 Body weight 102.06 kg Phillip Bingham DPM Work Phone: [facility] 01-05-2025 10:40-0400 Respiratory rate 18 /min Phillip Bingham DPM Work Phone: [facility] 12-16-2024 11:06-0400 Body height 161.29 cm [facility] 12-16-2024 11:06-0400 Body mass index (BMI) [Ratio] 37.8 kg/m2 [facility] 12-16-2024 11:06-0400 Body weight 98.42 kg [facility] 12-16-2024 11:06-0400 Diastolic blood pressure 67 mm[Hg] [facility] 12-16-2024 11:06-0400 Heart rate 61 /min [facility] 12-16-2024 11:06-0400 Respiratory rate 12 /min [facility] 12-16-2024 11:06-0400 Systolic blood pressure 119 mm[Hg] [facility] 11-21-2024 11:38-0400 Body height 161.29 cm [facility] 11-21-2024 11:38-0400 Body mass index (BMI) [Ratio] 39.9 kg/m2 [facility] 11-21-2024 11:38-0400 Body weight 103.87 kg [facility] 11-21-2024 11:38-0400 Diastolic blood pressure 76 mm[Hg] [facility] 11-21-2024 11:38-0400 Heart rate 68 /min [facility] 11-21-2024 11:38-0400 Respiratory rate 12 /min [facility] 11-21-2024 11:38-0400 Systolic blood pressure 130 mm[Hg] [facility] 11-14-2024 15:59-0400 Body height 161.29 cm [facility] 11-14-2024 15:59-0400 Body mass index (BMI) [Ratio] 39.9 kg/m2 [facility] 11-14-2024 15:59-0400 Body weight 103.87 kg [facility] 11-14-2024 15:59-0400 Diastolic blood pressure 77 mm[Hg] [facility] 11-14-2024 15:59-0400 Heart rate 66 /min [facility] 11-14-2024 15:59-0400 Respiratory rate 12 /min [facility] 11-14-2024 15:59-0400 Systolic blood pressure 132 mm[Hg] [facility] 11-14-2024 13:00-0400 Body height 165.1 cm Jada Gillmor MOBILE UNIT ASSISTANT Work Phone: [facility] 11-14-2024 13:00-0400 Body mass index (BMI) [Ratio] 37.44 kg/m2 Jada Gillmor MOBILE UNIT ASSISTANT Work Phone: [facility] 11-14-2024 13:00-0400 Body weight 102.06 kg Jada Linneamor MOBILE UNIT ASSISTANT Work Phone: [facility] 11-14-2024 13:00-0400 Diastolic blood pressure 74 mm[Hg] Jada Linneamor MOBILE UNIT ASSISTANT Work Phone: [facility] 11-14-2024 13:00-0400 Heart rate 58 /min Jada Yarbroughmor MOBILE UNIT ASSISTANT Work Phone: [facility] 11-14-2024 13:00-0400 SaO2% (BldA) [Mass fraction] 95 % Jada Linneamor MOBILE UNIT ASSISTANT Work Phone: [facility] 11-14-2024 13:00-0400 Systolic blood pressure 126 mm[Hg] Jada Linneamor MOBILE UNIT ASSISTANT Work Phone: [facility] 10-27-2024 10:49-0400 Body height 165.1 cm Phillip Bingham DPM Work Phone: [facility] 10-27-2024 10:49-0400 Body mass index (BMI) [Ratio] 33.61 kg/m2 Phillip Bingham DPM Work Phone: [facility] 10-27-2024 10:49-0400 Body weight 91.63 kg Phillip Bingham DPM Work Phone: [facility] 10-27-2024 10:49-0400 Respiratory rate 16 /min Phillip Bingham DPM Work Phone: [facility] 10-20-2024 13:38-0400 Body temperature 97 [degF] Jay Gonzalez MD Work Phone: [facility] 10-20-2024 13:38-0400 Diastolic blood pressure 78 mm[Hg] Jay Gonzalez MD Work Phone: [facility] 10-20-2024 13:38-0400 Heart rate 60 /min Jay Gonzalez MD Work Phone: [facility] 10-20-2024 13:38-0400 SaO2% (BldA) [Mass fraction] 98 % Jay Gonzalez MD Work Phone: [facility] 10-20-2024 13:38-0400 Systolic blood pressure 143 mm[Hg] Jay Gonzalez MD Work Phone: [facility] 09-14-2024 11:44-0500 Body height 161.29 cm [facility] 09-14-2024 11:44-0500 Body mass index (BMI) [Ratio] 39.2 kg/m2 [facility] 09-14-2024 11:44-0500 Body weight 102.11 kg [facility] 09-14-2024 11:44-0500 Diastolic blood pressure 85 mm[Hg] [facility] 09-14-2024 11:44-0500 Heart rate 70 /min [facility] 09-14-2024 11:44-0500 Respiratory rate 12 /min [facility] 09-14-2024 11:44-0500 Systolic blood pressure 135 mm[Hg] [facility] 08-11-2024 15:05-0500 Body height 165.1 cm Phillip Bingham DPM Work Phone: [facility] 08-11-2024 15:05-0500 Body mass index (BMI) [Ratio] 33.61 kg/m2 Phillip Bingham DPM Work Phone: [facility] 08-11-2024 15:05-0500 Body weight 91.63 kg Phillip Bingham DPM Work Phone: [facility] 08-11-2024 15:05-0500 Respiratory rate 18 /min Phillip Bingham DPM Work Phone: [facility] 06-07-2024 12:55-0500 Body height 165.1 cm Joanna Delia DO Work Phone: [facility] 06-07-2024 12:55-0500 Body mass index (BMI) [Ratio] 33.61 kg/m2 Joanna Delia DO Work Phone: [facility] 06-07-2024 12:55-0500 Body weight 91.63 kg Joanna Delia DO Work Phone: [facility] 06-07-2024 12:55-0500 Diastolic blood pressure 76 mm[Hg] Joanna Delia DO Work Phone: [facility] 06-07-2024 12:55-0500 Heart rate 73 /min Joanna Delia DO Work Phone: [facility] 06-07-2024 12:55-0500 SaO2% (BldA) [Mass fraction] 95 % Joanna Delia DO Work Phone: [facility] 06-07-2024 12:55-0500 Systolic blood pressure 142 mm[Hg] Joanna Delia DO Work Phone: [facility] 06-02-2024 14:27-0500 Body height 165.1 cm Phillip Bingham DPM Work Phone: [facility] 06-02-2024 14:27-0500 Body mass index (BMI) [Ratio] 37.44 kg/m2 Phillip Bingham DPM Work Phone: [facility] 06-02-2024 14:27-0500 Body weight 102.06 kg Phillip Bingham DPM Work Phone: [facility] 06-02-2024 14:27-0500 Diastolic blood pressure 79 mm[Hg] Phillip Bingham DPM Work Phone: [facility] 06-02-2024 14:27-0500 Heart rate 82 /min Phillip Bingham DPM Work Phone: [facility] 06-02-2024 14:27-0500 Systolic blood pressure 130 mm[Hg] Phillip Bingham DPM Work Phone: [facility] 04-21-2024 15:20-0400 Body mass index (BMI) [Ratio] 39.5 kg/m2 DO Juancarlos Ball Work Phone: [facility] 04-21-2024 13:34-0400 Body height 161.29 cm DO Juancarlos Ball Work Phone: [facility] 04-21-2024 13:34-0400 Body weight 101.6 kg DO Juancarlos Ball Work Phone: [facility] 04-20-2024 16:32-0400 Body height 165.1 cm DO Juancarlos Ball Work Phone: [facility] 04-20-2024 16:32-0400 Body mass index (BMI) [Ratio] 37.3 kg/m2 DO Juancarlos Ball Work Phone: [facility] 04-20-2024 16:32-0400 Body weight 101.66 kg DO Juancarlos Ball Work Phone: [facility] 03-24-2024 14:15-0400 Body height 165.1 cm Phillip Bingham DPM Work Phone: [facility] 03-24-2024 14:15-0400 Body mass index (BMI) [Ratio] 37.44 kg/m2 Phillip Bingham DPM Work Phone: [facility] 03-24-2024 14:15-0400 Body weight 102.06 kg Phillip Bingham DPM Work Phone: [facility] 03-24-2024 14:15-0400 Diastolic blood pressure 79 mm[Hg] Phillip Bingham DPM Work Phone: [facility] 03-24-2024 14:15-0400 Heart rate 81 /min Phillip Bingham DPM Work Phone: [facility] 03-24-2024 14:15-0400 Systolic blood pressure 127 mm[Hg] Phillip Julio César DPM Work Phone: [facility] 03-09-2024 13:34-0400 Body height 161.29 cm DO Juancarlos Ball Work Phone: [facility] 03-09-2024 13:34-0400 Body mass index (BMI) [Ratio] 39.8 kg/m2 DO Juancarlos Ball Work Phone: [facility] 03-09-2024 13:34-0400 Body weight 103.58 kg DO Juancarlos Ball Work Phone: [facility] 03-09-2024 13:34-0400 Diastolic blood pressure 72 mm[Hg] DO Juancarlos Ball Work Phone: [facility] 03-09-2024 13:34-0400 Heart rate 56 /min DO Juancarlos Ball Work Phone: [facility] 03-09-2024 13:34-0400 Respiratory rate 12 /min DO Juancarlos Ball Work Phone: [facility] 03-09-2024 13:34-0400 Systolic blood pressure 126 mm[Hg] DO Juancarlos Ball Work Phone: [facility] 02-24-2024 13:14-0400 Body height 161.29 cm DO Juancarlos Ball Work Phone: [facility] 02-24-2024 13:14-0400 Body mass index (BMI) [Ratio] 39.4 kg/m2 DO Juancarlos Ball Work Phone: [facility] 02-24-2024 13:14-0400 Body weight 102.73 kg DO Juancarlos Ball Work Phone: [facility] 02-24-2024 13:14-0400 Diastolic blood pressure 58 mm[Hg] DO Juancarlos Ball Work Phone: [facility] 02-24-2024 13:14-0400 Heart rate 53 /min DO Juancarlos Ball Work Phone: [facility] 02-24-2024 13:14-0400 Respiratory rate 20 /min DO Juancarlos Ball Work Phone: [facility] 02-24-2024 13:14-0400 SaO2% (BldA) [Mass fraction] 95 % DO Juancarlos Ball Work Phone: [facility] 02-24-2024 13:14-0400 Systolic blood pressure 120 mm[Hg] DO Juancarlos Ball Work Phone: [facility] 02-08-2024 11:49-0400 Body mass index (BMI) [Ratio] 39.5 kg/m2 DO Juancarlos Ball Work Phone: [facility] 02-08-2024 10:04-0400 Body height 161.29 cm DO Juancarlos Ball Work Phone: [facility] 02-08-2024 10:04-0400 Body weight 101.15 kg DO Juancarlos Ball Work Phone: [facility] 12-08-2023 13:37-0400 Body height 161.29 cm [facility] 12-08-2023 13:37-0400 Body mass index (BMI) [Ratio] 39.4 kg/m2 [facility] 12-08-2023 13:37-0400 Body weight 102.68 kg [facility] 12-08-2023 13:37-0400 Diastolic blood pressure 67 mm[Hg] [facility] 12-08-2023 13:37-0400 Heart rate 61 /min [facility] 12-08-2023 13:37-0400 Respiratory rate 20 /min [facility] 12-08-2023 13:37-0400 Systolic blood pressure 126 mm[Hg] [facility] 11-17-2023 13:12-0400 Body weight 102.71 kg [facility] 11-04-2023 10:57-0400 Body height 161.29 cm [facility] 11-04-2023 10:57-0400 Body mass index (BMI) [Ratio] 39.5 kg/m2 [facility] 11-04-2023 10:57-0400 Body weight 102.96 kg [facility] 11-04-2023 10:57-0400 Diastolic blood pressure 70 mm[Hg] [facility] 11-04-2023 10:57-0400 Heart rate 57 /min [facility] 11-04-2023 10:57-0400 Respiratory rate 18 /min [facility] 11-04-2023 10:57-0400 SaO2% (BldA) [Mass fraction] 97 % [facility] 11-04-2023 10:57-0400 Systolic blood pressure 109 mm[Hg] [facility] 06-05-2023 10:00-0500 Body height 165.1 cm Juancarlos Ball Other [facility] [employer] Other 06-05-2023 10:00-0500 Body mass index (BMI) [Ratio] 39.87 kg/m2 Juancarlos Ball Other [facility] [employer] Other 06-05-2023 10:00-0500 Body weight 108.68 kg Juancarlos Ball Other [facility] [employer] Other 06-05-2023 10:00-0500 Diastolic blood pressure 71 mm[Hg] Juancarlos Ball Other [facility] [employer] Other 06-05-2023 10:00-0500 Respiratory rate 20 /min Juancarlos Ball Other [facility] [employer] Other 06-05-2023 10:00-0500 Systolic blood pressure 118 mm[Hg] Juancarlos Ball Other [facility] [employer] Other 05-06-2023 13:45-0400 Body height 165.1 cm Juancarlos Ball Other [facility] [employer] Other 05-06-2023 13:45-0400 Body mass index (BMI) [Ratio] 39.97 kg/m2 Juancarlos Ball Other [employer] Other 05-06-2023 13:45-0400 Body weight 108.95 kg Juancarlos Ball Other [employer] Other 05-06-2023 13:45-0400 Diastolic blood pressure 87 mm[Hg] Juancarlos Ball Other [employer] Other 05-06-2023 13:45-0400 Respiratory rate 16 /min Juancarlos Ball Other [employer] Other 05-06-2023 13:45-0400 Systolic blood pressure 158 mm[Hg] Juancarlos Ball Other [employer] Other 03-10-2023 11:00-0400 Body height 165.1 cm Juancarlos Ball Other [employer] Other 03-10-2023 11:00-0400 Body mass index (BMI) [Ratio] 39.3 kg/m2 Juancarlos Ball Other [employer] Other 03-10-2023 11:00-0400 Body weight 107.14 kg Juancarlos Ball Other [employer] Other 03-10-2023 11:00-0400 Diastolic blood pressure 67 mm[Hg] Juancarlos Ball Other [employer] Other 03-10-2023 11:00-0400 Respiratory rate 16 /min Juancarlos Ball Other [employer] Other 03-10-2023 11:00-0400 Systolic blood pressure 120 mm[Hg] Juancarlos Ball Other [employer] Other 10-16-2022 13:12-0400 Body temperature 97.11 [degF] Jay Gonzalez MD Work Phone: [facility] 10-16-2022 13:12-0400 Diastolic blood pressure 66 mm[Hg] Jay Gonzalez MD Work Phone: [facility] 10-16-2022 13:12-0400 Heart rate 51 /min Jay Gonzalez MD Work Phone: [facility] 10-16-2022 13:12-0400 SaO2% (BldA) [Mass fraction] 96 % Jay Gonzalez MD Work Phone: [facility] 10-16-2022 13:12-0400 Systolic blood pressure 143 mm[Hg] Jay Gonzalez MD Work Phone: [facility] 09-08-2022 13:30-0500 Body height 165.1 cm Juancarlos Ball Other [employer] Other 09-08-2022 13:30-0500 Body mass index (BMI) [Ratio] 39.33 kg/m2 Juancarlos Ball Other [employer] Other 09-08-2022 13:30-0500 Body weight 107.23 kg Juancarlos Ball Other [employer] Other 09-08-2022 13:30-0500 Diastolic blood pressure 70 mm[Hg] Juancarlos Ball Other [employer] Other 09-08-2022 13:30-0500 Respiratory rate 20 /min Juancarlos Ball Other [employer] Other 09-08-2022 13:30-0500 Systolic blood pressure 112 mm[Hg] Juancarlos Ball Other [employer] Other 01-27-2022 13:20-0400 Body height 165.1 cm Jus Medina MD Work Phone: [facility] 01-27-2022 13:20-0400 Body temperature 96.91 [degF] Jus Medina MD Work Phone: [facility] 01-27-2022 13:20-0400 Body weight 104.33 kg Jus Medina MD Work Phone: [facility] 01-27-2022 13:20-0400 Diastolic blood pressure 56 mm[Hg] Jus Medina MD Work Phone: [facility] 01-27-2022 13:20-0400 Heart rate 50 /min Jus Medina MD Work Phone: [facility] 01-27-2022 13:20-0400 SaO2% (BldA) [Mass fraction] 98 % Jus Medina MD Work Phone: [facility] 01-27-2022 13:20-0400 Systolic blood pressure 131 mm[Hg] Jus Medina MD Work Phone: [facility] 10-10-2021 10:46-0400 Body height 165.1 cm Jay Gonzalez MD Work Phone: [facility] 10-10-2021 10:46-0400 Body weight 102.51 kg Jay Gonzalez MD Work Phone: [facility] 10-10-2021 10:46-0400 Diastolic blood pressure 65 mm[Hg] Jay Gonzalez MD Work Phone: [facility] 10-10-2021 10:46-0400 Heart rate 76 /min Jay Gonzalez MD Work Phone: [facility] 10-10-2021 10:46-0400 Systolic blood pressure 137 mm[Hg] Jay Gonzalez MD Work Phone: [facility] 10-10-2021 10:44-0400 Body height 165.1 cm Jus Medina MD Work Phone: [facility] 10-10-2021 10:44-0400 Body weight 102.51 kg Jus Medina MD Work Phone: [facility] 10-10-2021 10:44-0400 Diastolic blood pressure 65 mm[Hg] Jus Medina MD Work Phone: [facility] 10-10-2021 10:44-0400 Heart rate 76 /min Jus Medina MD Work Phone: [facility] 10-10-2021 10:44-0400 SaO2% (BldA) [Mass fraction] 98 % Jus Medina MD Work Phone: [facility] 10-10-2021 10:44-0400 Systolic blood pressure 137 mm[Hg] Jus Medina MD Work Phone: [facility] Encounters Encounter Date Encounter Type Care Provider Facility Start: 04-18-2025 End: 04-18-2025 ambulatory [facility] Start: 03-16-2025 End: 03-16-2025 Bamboo flowsheet Phillip Bingham DPM Work Phone: [facility] Start: 03-16-2025 End: 03-16-2025 Bamboo flowsheet Phillip Bnigham DPM Work Phone: [facility] Start: 03-16-2025 End: 03-16-2025 Patient encounter procedure Phillip Bingham DPM Work Phone: [facility] Comment on above: 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, unspecified whether care home insulin use (HCC) (Primary Dx); Pain due to onychomycosis of toenails of both feet; Xerosis cutis Start: 03-16-2025 End: 03-16-2025 ambulatory PHILLIP BINGHAM Not Available Start: 03-14-2025 End: 03-14-2025 Patient encounter procedure Jay Gonzalez MD Work Phone: General Surgery Comment on above: S/P laparoscopic cho lecystectomy (Primary Dx) Start: 03-14-2025 End: 03-14-2025 ambulatory JAY Paula:[facility] Start: 03-13-2025 End: 03-13-2025 ambulatory Juancarlos Cuenca DO Work Phone: [facility] Work Phone: Start: 03-13-2025 End: 03-13-2025 Patient encounter procedure Juancarlos Cuenca DO -[facility] Work Phone: Start: 03-01-2025 End: 03-01-2025 Telephone encounter Jay Gonzalez MD Work Phone: General Surgery Comment on above: 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 Start: 02-24-2025 End: 02-24-2025 Subsequent hospital visit by physician Deangelo El MD Work Phone: [facility] Endoscopy - ENDO Comment on above: Encounter for remova l of biliary stent [Z46.89] Start: 02-16-2025 Non-patient / Non-visit Jay patel MD -[facility] Work Phone: Start: 02-15-2025 End: 02-16-2025 ambulatory JAY GONZALEZ Facility:[facility] Start: 02-10-2025 End: 02-10-2025 Admission to same day surgery center Efrain Zamarripa RN General Surgery Comment on above: Education Of Patient /family Start: 02-10-2025 End: 02-10-2025 Office consultation new/estab patient 60 min [place] [id number] Work Phone: Pre Anesthesia Comment on above: Pre-op evaluation (P rimary Dx); Sleep apnea, unspecified type; ASHD (arteriosclerotic heart disease); S/P CABG x 4; PAD (peripheral artery disease); Hypertension, unspecified type; Hyperlipidemia, unspecified hyperlipidemia type; Type 2 diabetes mellitus without complication, without long-term current use of insulin (HCC); Morbid obesity (HCC); History of partial colectomy Start: 02-10-2025 End: 02-10-2025 Preprocedural examination done [facility] 1 Work Phone: [facility] Work Phone: Start: 02-10-2025 End: 02-10-2025 ambulatory Efrain Zamarripa RN General Surgery Start: 02-10-2025 Encounter for other preprocedural examination JAY GONZALEZ [facility] Start: 02-09-2025 End: 02-09-2025 ambulatory JAY GONZALEZ Facility:[facility] Start: 02-09-2025 End: 02-09-2025 Patient encounter procedure Jay Gonzalez MD Work Phone: General Surgery Comment on above: Choledocholithiasis (Primary Dx) Start: 01-26-2025 End: 01-26-2025 ambulatory Juancarlos Cuenca DO Work Phone: [facility] Work Phone: Start: 01-26-2025 End: 01-26-2025 Patient encounter procedure Juancarlos Cuenca DO -[facility] Work Phone: Start: 01-24-2025 End: 01-30-2025 Telephone encounter Deangelo El MD Work Phone: Gastroenterology Comment on above: Follow Up (Needs rep eat ERCP in 5 weeks) Start: 01-23-2025 Non-patient / Non-visit Yas Boyle CMA -[facility] Work Phone: Start: 01-20-2025 Non-patient / Non-visit Deangelo El -[facility] Work Phone: Start: 01-19-2025 [facility] Start: 01-19-2025 End: 01-19-2025 Evaluation and management of inpatient LAURA BASH Facility:[facility] Start: 01-18-2025 End: 01-20-2025 Evaluation and management of inpatient KALPESH Z JARRETT Facility:[facility] Start: 01-18-2025 Non-patient / Non-visit Caleb Mcduffie MD -[facility] Work Phone: Start: 01-17-2025 End: 01-17-2025 Telephone encounter Cami Sandhu MD Work Phone: [facility] Provider Adult Comment on above: [facility] Start: 01-17-2025 Non-patient / Non-visit Kalpesh quick MD [facility] Work Phone: Start: 01-16-2025 Non-patient / Non-visit Kalpesh quick MD -[facility] Work Phone: Start: 01-06-2025 End: 01-06-2025 Bamboo flowsheet Matthew [...] underlying condition with diabetic polyneuropathy, unspecified whether care home insulin use (HCC) (Primary Dx); Pain due to onychomycosis of toenails of both feet Start: 01-05-2025 End: 01-05-2025 ambulatory PHILLIP BINGHAM Not Available Start: 12-22-2024 End: 12-22-2024 Clinisync Result Encounter Anderson Robledo MD Work Phone: [facility] Unsolicited Start: 12-22-2024 End: 12-22-2024 Clinisync Result Encounter Anderson Robledo MD Work Phone: [facility] Unsolicited Start: 12-16-2024 End: 12-16-2024 ambulatory [facility] Work Phone: Start: 12-16-2024 End: 12-16-2024 Patient encounter procedure [facility] Work Phone: Start: 11-21-2024 End: 11-21-2024 ambulatory [facility] Work Phone: Start: 11-21-2024 End: 11-21-2024 Patient encounter procedure [facility] Work Phone: Start: 11-17-2024 End: 11-17-2024 ambulatory [facility] Work Phone: Start: 11-17-2024 End: 11-17-2024 Patient encounter procedure [facility] Work Phone: Start: 11-14-2024 End: 11-14-2024 ambulatory [facility] Work Phone: Start: 11-14-2024 End: 11-14-2024 Patient encounter procedure [facility] Work Phone: Start: 11-14-2024 End: 11-14-2024 Bamboo flowsheet Jada Linneamor MOBILE UNIT ASSISTANT Work Phone: [facility] Start: 11-14-2024 End: 11-14-2024 Bamboo flowsheet Jada Gillmor MOBILE UNIT ASSISTANT Work Phone: [facility] Start: 11-14-2024 End: 11-14-2024 ambulatory JADALisa LOTTR Not Available Start: 11-14-2024 End: 11-14-2024 Office outpatient visit 25 minutes Jada Woods NP Work Phone: [facility] Comment on above: [...] underlying condition with diabetic polyneuropathy, unspecified whether care home insulin use ([facility]) (Primary Dx); Pain due to onychomycosis of toenails of both feet; Xerosis cutis Start: 10-27-2024 End: 10-27-2024 ambulatory PHILLIP BINGHAM Not Available Start: 10-27-2024 Non-patient / Non-visit [facility] Work Phone: Start: 10-20-2024 End: 10-20-2024 ambulatory JAY GONZALEZ Facility:[facility] Start: 10-20-2024 End: 10-20-2024 Patient encounter procedure Jay Gonzalez MD Work Phone: General Surgery Comment on above: S/P repair of ventra l hernia (Primary Dx) Start: 10-04-2024 End: 10-04-2024 ambulatory MATTHEW KEARNS Not Available Start: 09-27-2024 End: 09-27-2024 ambulatory MATTHEW KEARNS Not Available Start: 09-14-2024 End: 09-14-2024 ambulatory [facility] Work Phone: Start: 09-14-2024 End: 09-14-2024 Patient encounter procedure [facility] Work Phone: Start: 08-27-2024 Non-patient / Non-visit [facility] Work Phone: Start: 08-24-2024 End: [...] underlying condition with diabetic polyneuropathy, unspecified whether care home insulin use ([facility]) (Primary Dx); Pain due to onychomycosis of toenails of both feet; Xerosis cutis Start: 08-11-2024 End: 08-11-2024 ambulatory PHILLIP BINGHAM Not Available Start: 08-11-2024 End: 08-11-2024 Bamboo flowsheet Phillip Bingham DPM Work Phone: [facility] Start: 08-11-2024 End: 08-11-2024 Bamboo flowsheet Phillip Bingham DPM Work Phone: [facility] Start: 07-28-2024 End: 07-28-2024 Patient encounter procedure [facility] Phys[facility] Work Phone: Start: 06-07-2024 End: 06-07-2024 Bamboo flowsheet Joanna Lin DO Work Phone: [facility] Start: 06-07-2024 End: 06-07-2024 Bamboo flowsheet Joanna Lin DO Work Phone: [facility] Start: 06-07-2024 End: 06-07-2024 Office outpatient visit 25 minutes Joanna Lin DO Work Phone: [facility] Comment on above: BHUPENDRA (obstructive sle ep apnea) (Primary Dx); Hyposomnia; Snoring; Carpal tunnel syndrome, bilateral; Paresthesias; Ulnar neuropathy, unspecified laterality Start: 06-07-2024 End: 06-07-2024 ambulatory JOANNA LIN Not Available Start: 06-02-2024 End: 06-02-2024 Patient encounter procedure Phillip Bingham DPM Work Phone: [facility] Comment on above: 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, unspecified whether middle or intermediate school principal insulin use ([facility]) (Primary Dx); Pain due to onychomycosis of toenails of both feet; Xerosis cutis Start: 06-02-2024 End: 06-02-2024 ambulatory PHILLIP BINGHAM Not Available Start: 06-02-2024 End: 06-02-2024 Bamboo flowsheet Phillip Bingham DPM Work Phone: [facility] Start: 06-02-2024 End: 06-02-2024 Bamboo flowsheet Phillip Bingham DPM Work Phone: [facility] Start: 05-04-2024 End: 05-04-[address] [facility] Start: 04-21-2024 End: 04-21-2024 Patient encounter procedure DO Juancarlos Ball Work Phone: [facility] Work Phone: Start: 04-21-2024 End: 04-21-2024 Patient encounter procedure DO Juancarlos Ball Work Phone: [facility] Work Phone: Start: 04-21-2024 End: 04-21-2024 Patient encounter procedure DO [facility]arlos Ball [facility] Start: 04-21-2024 End: 04-21-2024 ambulatory Ej Anthony II Facility:[facility] Start: 04-11-2024 End: 04-11-2024 ambulatory Hanh Wade MD Facility:[facility] Start: 03-24-2024 End: 03-24-2024 Patient encounter procedure Phillip Bingham DPM Work Phone: [facility] Comment on above: Xerosis cutis (Prima ry Dx); Diabetes mellitus due to underlying condition with diabetic polyneuropathy, unspecified whether care home insulin use ([facility]); Onychomycosis; Toe pain, bilateral Start: 03-24-2024 End: 03-24-2024 ambulatory PHILLIP BINGHAM Not Available Start: 03-24-2024 End: 03-24-2024 Bamboo flowsheet Phillip Bingham DPM Work Phone: [facility] Start: 03-24-2024 End: 03-24-2024 Bamboo flowsheet Phillip Bingham DPM Work Phone: [facility] Start: 03-09-2024 End: 03-09-2024 Patient encounter procedure DO Juancarlos Ball Work Phone: [facility] Work Phone: Start: 02-24-2024 End: 02-24-2024 Patient encounter procedure DO Juancarlos Ball Work Phone: [facility] Physician [facility] Work Phone: Start: 02-08-2024 End: 02-08-2024 Patient encounter procedure DO Juancarlos Ball Work Phone: [facility] Work Phone: Start: 12-08-2023 End: 12-08-2023 Patient encounter procedure [facility] Work Phone: Start: 11-17-2023 End: 11-17-2023 [facility] Start: 11-04-2023 End: 11-04-[address] [facility] Work Phone: Start: 10-27-2023 Telephone encounter Jay patel MD Work Phone: General Surgery Start: 10-09-2023 Non-patient / Non-visit [facility] [employer] Work Phone: Start: 08-10-2023 (RD) Data Entry Clerk Nirmala James [facility] Start: 08-10-2023 End: 08-10-2023 ambulatory Juancarlos Cuenca [place] [employer] Other Start: 08-03-2023 End: 08-03-2023 ambulatory Hanh Wade MD Facility:[facility] Start: 07-27-2023 End: 07-27-2023 ambulatory Hanh Wade MD Facility:[facility] Start: 06-17-2023 End: 06-17-2023 ambulatory Juancarlos Cuenca Other [employer] Other Start: 06-17-2023 Telephone encounter Juancarlos Bang [facility] Start: 06-16-2023 End: 06-16-2023 ambulatory Juancarlos Cuenca Other [employer] Other Start: 06-16-2023 Telephone encounter Juancarlos Cuenca [facility] Start: 06-09-2023 End: 06-09-2023 ambulatory Juancarlos Cuenca Other [employer] Other Start: 06-09-2023 Telephone encounter Juancarlos Cuenca [facility] Start: 06-08-2023 End: 06-08-2023 ambulatory Juancarlos Bang Other [employer] Other Start: 06-08-2023 Telephone encounter Juancarlos Cuenca [facility] Start: 06-07-2023 End: 06-07-2023 ambulatory Juancarlos Ball Other [employer] Other Start: 06-07-2023 Telephone encounter Juancarlos Ball [facility] Start: 06-05-2023 End: 06-05-2023 ambulatory Juancarlos Ball Other [employer] Other Start: 06-05-2023 Office outpatient vi sit 25 minutes Juancarlos Ball [facility] Start: 05-27-2023 End: 05-27-2023 ambulatory Juancarlos Ball Other [employer] Other Start: 05-27-2023 Telephone encounter Juancarlos Ball [facility] Start: 05-17-2023 End: 05-17-2023 ambulatory Juancarlos Ball Other [employer] Other Start: 05-17-2023 Telephone encounter Juancarlos Ball [facility] Start: 05-15-2023 End: 05-15-2023 ambulatory Juancarlos Ball Other [employer] Other Start: 05-15-2023 Telephone encounter Juancarlos Ball [facility] Start: 05-07-2023 End: 05-07-2023 ambulatory Juancarlos Ball Other [employer] Other Start: 05-07-2023 Telephone encounter Juancarlos Ball [facility] Start: 05-06-2023 End: 05-06-2023 ambulatory Juancarlos Ball Other [employer] Other Start: 05-06-2023 Office outpatient vi sit 25 minutes Juancarlos Ball [facility] Start: 05-06-2023 Telephone encounter Juancarlos Ball [facility] Start: 04-04-2023 End: 04-04-2023 ambulatory Juancarlos Ball Other [employer] Other Start: 04-04-2023 Telephone encounter Juancarlos Ball [facility] Start: 03-10-2023 End: 03-10-2023 ambulatory Juancarlos Cuenca Other [employer] Other Start: 03-10-2023 Office outpatient vi sit 25 minutes Juancarlos Cuenca [facility] Start: 12-24-2022 End: 12-24-2022 ambulatory Juancarlos Cuenca Other [employer] Other Start: 12-24-2022 Telephone encounter Juancarlos Cuenca [facility] Start: 12-17-2022 End: 12-18-[address] NYA BIRD . Facility:[facility] Start: 12-16-2022 End: 12-16-2022 ambulatory NARENDRANATH LAKSHMIPATHKathy . Facility:[facility] Start: 12-02-2022 End: 12-03-2022 ambulatory Nya BIRD Facility: [facility] Start: 11-28-2022 End: 11-29-2022 ambulatory MANAV GARY . Facility:[facility] Start: 11-28-2022 End: 11-29-2022 ambulatory NARENDRANATH LAKSHMIPATHY . Facility:[facility] Start: 11-11-2022 End: 11-11-2022 ambulatory NARENDRANATH LAKSHMIPATHY . Facility:[facility] Start: 10-28-2022 End: 10-29-[address] EVAN LAMAS . Facility:[facility] Start: 10-16-2022 End: 10-16-2022 Patient encounter procedure Jay Gonzalez MD Work Phone: General Surgery Comment on above: Ventral incisional h ernia (Primary Dx) Start: 10-11-2022 End: 10-11-2022 Subsequent hospital visit by physician [facility] Comment on above: 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] Start: 10-06-2022 Telephone encounter Jay patel MD Work Phone: General Surgery Comment on above: Patient Question Start: 09-16-2022 Telephone encounter Juancarlos Cuenca [facility] Start: 09-16-2022 End: 09-17-2022 ambulatory Nya BIRD [employer] Other Start: 09-16-2022 End: 09-27-2022 Pre-admission assessment Nya BIRD [facility] Start: 09-12-2022 Telephone encounter Juancarlos Cuenca RAY [facility] Start: 09-12-2022 End: 09-13-[address] JUANCARLOS CUENCA [facility] [employer] Other Start: 09-08-2022 End: 09-08-2022 ambulatory Juancarlos Cuenca Other [facility] [employer] Other Start: 09-08-2022 Patient encounter procedure Juancarlos Cuenca [facility] Start: 07-31-2022 End: 08-01-[address] EVAN LAMAS . Facility:[facility] Start: 07-03-2022 Encounter for preprocedural laboratory examination DR EVAN LAMAS . [facility] Start: 07-01-2022 End: 07-01-2022 ambulatory [...] Start: 12-26-2020 End: 12-29-2020 ambulatory JUANCARLOS CUENCA Facility:[facility] Start: 10-19-2020 End: 10-20-2020 ambulatory JUANCARLOS CUENCA Facility:[facility] Procedures Date Procedure Procedure Detail Performing Clinician Start: 02-24-2025 Ercp dx collection specimen brushing/washing Deangelo El MD Work Phone: Start: 02-24-2025 Gluc bld gluc mntr d ev cleared fda spec home use Matthew Damon IMPLEMENTATION DIRECTOR.COLUMNIST Start: 01-18-2025 History of coronary artery bypass grafting S/P CABG x 4 Deangelo El MD Work Phone: Start: 01-06-2025 End: 01-06-2025 Ophth medical xm&eval intermediate estab pt Right posterior [...] DO Work Phone: Start: 08-24-2024 End: 08-24-2024 [facility] medical xm&eval compre new pt 1/> vst Age-related nuclear cataract of right eye Matthew Radha Som DO Work Phone: Comment on above: Age-related nuclear cataract of right eye (Primary Dx); Left posterior capsular opacification Start: 07-20-2024 History of cholecystectomy Hx of cholecystectomy Juancarlos [employer] DO Start: 04-21-2024 Plain radiography of pelvis DO [facility] Work Phone: Start: 04-21-2024 X-ray of left knee, four views DO [facility] Work Phone: Start: 10-04-2021 Partial resection of colon Nya BIRD Start: 10-04-2021 Repair of ventral hernia Nya SAVAGEAndreas Start: 04-08-2021 Colonoscopy Nya ABARCA Comment on above: Transverse and desce nding colon polyps Start: 12-26-2020 ANESTH KNEE ARTHROPLASTY JUANCARLOS [employer] Start: 12-26-2020 Arthrp kne condyle&p latu medial&lat compartments VITHAL SHENDGE Start: 12-26-2020 JOINT DEVICE (IMPLANTABLE) JUANCARLOS [employer] Start: 11-17-2017 Colonoscopy Nya ABARCA Comment on above: 2003 (2), 2005, 2007 , 2009, 2011, 05/2015, 11/2017 Start: 03-06-2016 Transurethral prostatectomy Nya BIRD Start: 02-18-2016 Cystoscopy Nya ABARCA Start: 01-16-2016 Urodynamic studies [place] allan PELON Start: 07-20-2012 Hernia repair Nya ROSARIO Start: 08-26-2007 Prosthetic arthropla sty of the hip Nya BIRD Start: 08-20-2007 Hernia of anterior abdominal wall (disorder) Nya BIRD Start: 04-19-2004 Transrectal biopsy o f prostate using ultrasound guidance Nya SAVAGEAndreas Atherectomy Nya BIRD Comment on above: with stent 2006 Bilateral vasectomy Nya SAVAGEAndreas Decompression of med med nerve Nya SAVAGEAndreas History of cholecystectomy S/P laparoscopic cholecystectomy Jay Gonzalez MD Work Phone: History of coronary artery bypass grafting S/P CABG x 4 [facility] 1 Work Phone: Through knee amputation [place] BIRD Plan of Treatment Date Care Activity Detail Author Start: 03-06-2034 Urine microalbumin profile DTaP,Tdap,Td Vaccine (2 - Td or Tdap) [facility] Start: 01-05-2026 End: 01-05-2026 Patient encounter procedure 01/05/2026 10:00 AM EDT Office Visit [facility] [address] [place] [id number] Matthew Kearns, [address] [place] [address] [facility] Start: 10-24-2025 End: 10-24-2025 Patient encounter procedure 10/24/2025 1:40 PM EDT Office Visit General Surgery [address] [place], [place] [id number] [place] [address] [place] [address] Est Pt: 1 yr f/up, s/p AWR 09/24/21 General Surgery Comment on above: Est Pt: 1 yr f/up, s/p AWR 09/24/21 Start: 05-15-2025 End: 05-15-2025 Patient encounter procedure 05/15/2025 12:40 PM EDT Office Visit [facility] [address] [phone] Jada Woods, DO [address] [place] [address] [facility] Start: 03-20-2025 Influenza vaccination Influenza Vaccine (#1) Malvin Lazari anjum Start: 03-16-2025 End: 03-16-2025 Patient encounter procedure [facility] Comment on above: Diabetes mellitus due to underlying cond ition with diabetic polyneuropathy, unspecified whether middle or intermediate school principal insulin use (HCC) (Primary Dx); Pain due to onychomycosis of toenails of both feet; Xerosis cutis Start: 03-14-2025 End: 03-14-2025 Patient encounter procedure 03/14/2025 3:00 PM EDT Office Visit General Surgery [facility] [address] [id number] Jay Gonzalez MD [address] [place], [place] [id number] 02/15 laparoscopic cholecystectomy General Surgery Comment on above: 02/15 laparoscopic cholecystectomy Start: 02-24-2025 End: 02-24-2025 Patient encounter procedure 02/24/2025 1:00 PM EDT Appointment [facility] - ENDO [address] [place] [address] [place] [address] [place] [address] ERCP W/STENT REMOVAL [facility] - ENDO Comment on above: ERCP W/STENT REMOVAL Start: 02-15-2025 End: 02-15-2025 Admission to same day surgery center 02/15/2025 7:30 AM EDT - 02/15/2025 9:45 AM EDT Surgery [facility] Operating Room [address] [place], [place] [id number] Jay Gonzalez MD [address] [place], [place] [id number] LAPAROSCOPIC CHOLECYSTECTOMY WITH GRAMS [facility] Comment on above: LAPAROSCOPIC CHOLECYSTECTOMY WITH GRAMS Start: 02-15-2025 End: 02-15-2025 Laps surg cholecystectomy w/cholangiography LAPAROSCOPIC CHOLECYSTECTOMY WITH GRAMS Choledocholithiasis 02/15/2025 7:30 AM EDT [facility] Start: 02-15-2025 Subsequent hospital visit by physician 02/15/2025 7:30 AM EDT Hospital Encounter [facility] Operating Room [address] [place] [address] Jay Gonzalez MD [place], [place] [id number] [phone] Choledocholithiasis [K80.50] [facility] Comment on above: Choledocholithiasis [K80.50] Start: 02-10-2025 End: 02-10-2025 Admission to establishment 02/10/2025 1:40 PM EDT PAT Pre Anesthesia [id number] [address] [facility] [address] [place] [address] pre admission testing lap maria dolores Pre Anesthesia Comment on above: pre admission testing lap maria dolores Start: 02-09-2025 End: 02-09-2025 Patient encounter procedure 02/09/2025 11:40 AM EDT [facility] [address] [place] [address] Jay Gonzalez MD [place], [place] [id number] [phone]- choledocholithiasis / post op General Surgery Comment on above: choledocholithiasis / post op Start: 01-06-2025 End: 01-06-2025 Patient encounter procedure [facility] Comment on above: Arrived Start: 01-05-2025 End: 01-05-2025 Patient encounter procedure [facility] A[facility] Comment on above: Diabetes mellitus due to underlying cond ition with diabetic polyneuropathy, unspecified whether middle or intermediate school principal insulin use (HCC) (Primary Dx); Pain due to onychomycosis of toenails of both feet Start: 11-14-2024 End: 11-14-2024 Patient encounter procedure 11/14/2024 12:40 PM EDT Office Visit TISHA MCDERMOTT [address] [facility] [address] [place] [phone] Jada Woods, MOBILE UNIT ASSISTANT [address] [facility] [address] [place] TISHA MCDERMOTT Start: 10-27-2024 End: 10-27-2024 Patient encounter procedure 10/27/2024 10:50 AM EDT Office Visit [facility] [address] [facility] [address] [place] [address] Phillip Bingham DPM [address] [address] Diabetes mellitus due to underlying condition with diabetic polyneuropathy, unspecified whether middle or intermediate school principal insulin use (CMS/[facility]) (Primary Dx); Pain due to onychomycosis of toenails of both feet; Xerosis cutis [facility] Comment on above: Diabetes mellitus due to underlying cond ition with diabetic polyneuropathy, unspecified whether middle or intermediate school principal insulin use (CMS/[facility]) (Primary Dx); Pain due to onychomycosis of toenails of both feet; Xerosis cutis Start: 10-25-2024 End: 10-25-2024 Patient encounter procedure MARA Silva [facility] Start: 10-20-2024 End: 10-20-2024 Patient encounter procedure 10/20/2024 3:10 PM EDT Office Visit [facility] [address] [place] [address] Phillip Bingham DPM [address] [address] [facility] Start: 10-14-2024 BP Controlled (<130/80) BP Controlled (<130/80) [facility] Start: 10-05-2024 Covid-19 Vaccine ( season) Covid-19 Vaccine ( season) [facility] Start: 08-24-2024 End: 08-24-2024 Patient encounter procedure [facility] Comment on above: Arrived Start: 08-11-2024 End: 08-11-2024 Patient encounter procedure [facility] A[facility] Comment on above: Diabetes mellitus due to underlying cond ition with diabetic polyneuropathy, unspecified whether middle or intermediate school principal insulin use ([facility]/HCC) (Primary Dx); Pain due to onychomycosis of toenails of both feet; Xerosis cutis Start: 07-20-2024 Advance Directive Discussion Advance Directive Discussion [facility] Start: 06-07-2024 End: 06-07-2024 Patient encounter procedure [facility] G[facility] Comment on above: Arrived Start: 06-02-2024 End: 06-02-2024 Patient encounter procedure 06/02/2024 2:30 PM EST Office Visit [facility] [address] [id number] Phillip Bingham, DPM [address] [address] [facility] Start: 05-01-2024 Shingrix Vaccine (2 of 2) Shingrix Vaccine (2 of 2) [facility] Start: 03-24-2024 End: 03-24-2024 Patient encounter procedure 03/24/2024 2:30 PM EDT Office Visit [facility] [address] [address] Phillip Bingham DPM [address] [address] Xerosis cutis (Primary Dx); Diabetes mellitus due to underlying condition with diabetic polyneuropathy, unspecified whether care home insulin use ([facility]); Onychomycosis; Toe pain, bilateral [facility] Comment on above: Xerosis cutis (Primary Dx); Diabetes mellitus due to underlying condition with diabetic polyneuropathy, unspecified whether care home insulin use (CMS/HCC); Onychomycosis; Toe pain, bilateral Start: 03-20-2024 Influenza vaccination Influenza Vaccine (#1) [facility] Start: 07-20-2023 Advance Directive Discussion Advance Directive Discussion [facility] Start: 07-20-2023 Behavioral Health Screening Behavioral Health Screening [facility] Start: 10-10-2022 End: 11-09-2022 Ct abdomen & pelvis w/o contrast material CT ABD/PEL WO IVCON Radiology Routine Ventral incisional hernia Expected: 10/10/2022, Expires: 11/09/2022 [facility] Work Phone: Comment on above: Expected: 10/10/2022, Expires: 3 Start: 07-20-2022 ADVANCE DIRECTIVE DISCUSSION ADVANCE DIRECTIVE DISCUSSION [facility] Start: 07-20-2022 DEPRESSION ASSESSMENT DEPRESSION ASSESSMENT [facility] Start: 03-20-2022 Influenza vaccination INFLUENZA (#1) [facility] Start: 03-13-2022 Hemoglobin A1c measurement HbA1C [facility] Start: 03-13-2022 Hemoglobin A1c/Hemoglobin.total in Blood HBA1C [facility] Start: 01-04-2022 COVID-19 VACCINE (5 - Booster for Pfizer series) COVID-19 VACCINE (5 - Booster for Pfizer series) [facility] Start: 07-20-2021 ADVANCE DIRECTIVE DISCUSSION ADVANCE DIRECTIVE DISCUSSION [facility] Start: 04-19-2015 Pneumococcal Vaccine: 50+ (2 of 2 - PCV) Pneumococcal Vaccine: 50+ (2 of 2 - PCV) [facility] Start: 04-19-2015 Pneumococcal Vaccine: 65+ (2 of 2 - PCV) Pneumococcal Vaccine: 65+ (2 of 2 - PCV) [facility] Start: 04-19-2015 Pneumococcal Vaccine: 65+ Years (2 of 2 - PCV) Pneumococcal Vaccine: 65+ Years (2 of 2 - PCV) [facility] Start: 2009 PNEUMOVAX AGE 65 AND OVER WITH 5YR LOOKBACK (#1) PNEUMOVAX AGE 65 AND OVER WITH 5YR LOOKBACK (#1) [facility] Start: 02-17-2009 Medicare Annual Wellness Visit Medicare Annual Wellness Visit [facility] Start: 1994 SHINGRIX VACCINE (1 of 2) SHINGRIX VACCINE (1 of 2) [facility] Start: 12-31-1963 Urine microalbumin profile [facility] Start: 1962 ANNUAL PCP TEAM CHRONIC DISEASE VISIT ANNUAL PCP TEAM CHRONIC DISEASE VISIT [facility] Start: 1962 Anxiety Screening Anxiety Screening [facility] Start: 1962 BP CONTROLLED (<130/80) BP CONTROLLED (<130/80) [facility] Start: 1962 Depression Screening Depression Screening [facility] Start: 1962 Hepatitis B surface antibody level LDL CHOLESTEROL [facility] Start: 1962 HEPATITIS C SCREENING HEPATITIS C SCREENING [facility] Start: 1962 Hepatitis C screening Hepatitis C Screening [facility] Start: 1956 Adult depression screening assessment DEPRESSION SCREENING [facility] Start: 1954 3 comp foot exam completed DIABETIC FOOT EXAM [facility] Start: 1954 Diabetic foot examination Diabetic Foot Exam [facility] Start: 1954 Glaucoma screening Dilated Retinal Exam [facility] Start: 1954 Hepatitis B screening URINE ALBUMIN:CREATININE RATIO [facility] Start: 1954 Hepatitis C antibody, confirmatory test DILATED RETINAL EXAM [facility] Start: 1950 PNEUMOCOCCAL: 65+ (1 - PCV) PNEUMOCOCCAL: 65+ (1 - PCV) [facility] metabo lic 2000 panel - Serum or Plasma [facility] End: 10-11-2022 Ct abdomen & pelvis w/o contrast material [facility] Work Phone: Comment on above: 1 Occurrences starting 10/11/2022 until 10/11/2022 End: 11-15-2023 Ct abdomen & pelvis w/o contrast material CT ABD/PEL WO IVCON Radiology Routine Ventral incisional hernia 1 Occurrences starting 10/16/2022 until 11/15/2023 [facility] Work Phone: Comment on above: 1 Occurrences starting 10/16/2022 until 11/15/2023 End: 01-24-2026 ERCP ERCP Endoscopy Routine Encounter for removal of biliary stent 1 Occurrences starting 01/24/2025 until 01/24/2026 [facility] Work Phone: Comment on above: 1 Occurrences starting 01/24/2025 until 01/24/2026 [facility] Immunizations Immunization Date Immunization Notes Care Provider Alexa dietz 11-03-2024 COVID-19 (PFIZER) 12Y and older [facility] 11-03-2024 zoster vaccine recombinant [facility] 04-07-2024 COVID-19 (PFIZER) 12Y and older [facility] 04-07-2024 influenza, high dose seasonal, preservative-free [facility] 04-07-2024 influenza virus vaccine, unspecified formulation Cami Sandhu MD Work Phone: [facility] 03-06-2024 tetanus toxoid, redu lisbeth diphtheria toxoid, and acellular pertussis vaccine, adsorbed [facility] 03-06-2024 zoster vaccine recombinant [facility] 07-07-2023 RSV, preF3, adj, pf [facility] 04-20-2023 COVID-19 (PFIZER) 12Y and older [facility] 04-14-2023 Influenza vaccine, quadrivalent, adjuvanted [facility] 04-14-2023 influenza virus vaccine, unspecified formulation Phillip Bingham DPM Work Phone: [facility] 05-20-2022 influenza virus vaccine, unspecified formulation Nya BIRD [facility] [place] 05-16-2022 influenza, high dose seasonal, preservative-free Juancarlos Cuenca Other [employer] Other 05-16-2022 influenza virus vaccine, split virus (incl. purified surface antigen) Juancarlos Cuenca Other [facility] [employer] Other 05-16-2022 influenza virus vaccine, unspecified formulation [facility] 04-15-2022 SARS-CoV-2 (COVID-19 ) [id number] Nya BIRD [facility] [place] 11-09-2021 COVID-19 Comirnaty (Pfizer) Tri-Sucrose 12+ [facility] 11-09-2021 COVID-19 Vaccine Pfi zer - Documentation Purposes Only Juancarlos Cuenca Other [facility] 11-09-2021 SARS-CoV-2 mRNA (pnljobudjfi-cfll-dtcpx se) vaccine Nya NILL [facility] 04-19-2021 Fluzone QIV High-Dos e 65YR+ [facility] 04-19-2021 SARS-CoV-2 (COVID-19 ) mRNA BNT-162b2 vax Nya NILL [facility] Comment on above: Result Comment: 2022: [id number] 09-05-2020 SARS-CoV-2 (COVID-19 ) mRNA BNT-162b2 vax Not[employer] [facility] Comment on above: Result Comment: 2022: [id number] 08-15-2020 COVID-19 Vaccine Moderna - Documentation Purposes Only Juancarlos Cuenca Other [facility] 08-15-2020 SARS-CoV-2 (COVID-19 ) mRNA BNT-162b2 [employer] [facility] Comment on above: Result Comment: 2022: [id number] 03-28-2020 influenza virus vaccine, split virus (incl. purified surface antigen) Juancarlos Cuenca Other [employer] Other 03-28-2020 influenza virus vaccine, unspecified formulation [facility] 05-17-2019 influenza virus vaccine, split virus (incl. purified surface antigen) Juancarlos Cuenca Other [employer] Other 05-17-2019 influenza virus vaccine, unspecified formulation [facility] 05-13-2018 influenza virus vaccine, split virus (incl. purified surface antigen) Juancarlos Cuenca Other [facility] [employer] Other 05-13-2018 influenza virus vaccine, unspecified formulation [facility] 05-13-2018 Seasonal trivalent influenza vaccine, adjuvanted, preservative free [facility] 04-26-2018 influenza, injectabl e, quadrivalent, preservative free [facility] 04-19-2018 influenza, injectabl e, quadrivalent, preservative free [facility] 06-09-2017 Seasonal trivalent influenza vaccine, adjuvanted, preservative free [facility] 06-03-2017 influenza, injectabl e, quadrivalent, preservative free [facility] 03-25-2017 influenza, injectabl e, quadrivalent, preservative free [facility] 04-25-2015 influenza virus vaccine, split virus (incl. purified surface antigen) Juancarlos Cuenca Other [employer] [employer] Other 04-25-2015 influenza virus vaccine, unspecified formulation [facility] 04-25-2015 pneumococcal conjuga te vaccine, 13 valent Juancarlos Cuenca Other [facility] 04-19-2015 influenza, injectabl e, madin puja canine kidney, preservative free [facility] 04-19-2014 pneumococcal polysaccharide vaccine, 23 valent Juancarlos Cuenca Other [facility] 04-20-2013 tetanus and diphther ia toxoids, adsorbed, preservative free, for adult use (5 Lf of tetanus toxoid and 2 Lf of diphtheria toxoid) Juancarlos Cuenca Other [facility] 04-21-2012 pneumococcal polysaccharide vaccine, 23 valent Juancarlos Cuenca Other [facility] Payers Date Payer Category Payer Self-pay [id number] 2023 Unknown [id number] 2020 Private Health Insurance [facility] AARP SUPPLEMENT [id number] 2020-Present [phone] [address] [place] [address] Indemnity [id number] 2020 Private Health Insurance [id number] .[id number] .[id number] 2009 Medicare MEDICARE MEDICAR E A AND B [id number] 2009-Present [phone] [place] [address] Medicare [id number] .[id number] 2009 Medicare [id number]. 1.13.159.2 .7.3.668543.315 1959 Medicare [id number] 1959 Unknown [id number] 1944 Unknown [id number] 2.16.840.1.246074.3.579.2 .647 1944 Unknown [id number] 2.16.840.1.760873.3.579.2 .647 1944 Unknown [id number] 2.16.840.1.602861.3.579.2 .593 1944 Unknown [id number] 2.16.840.1.016695.3.579.2 .593 1944 Unknown [id number] 2.16.840.1.767491.3.579.2 .593 1944 Unknown [id number] 2.16.840.1.008307.3.579.2 .593 1944 Unknown [id number] 2.16.840.1.742339.3.579.2 .593 1944 Unknown [id number] 2.16.840.1.400008.3.579.2 .593 1944 Unknown [id number] 2.16.840.1.375766.3.579.2 .593 1944 Unknown [id number] 2.16.840.1.694182.3.579.2 .593 1944 Unknown [id number] 2.16.840.1.363616.3.579.2 .593 1944 Unknown [id number] 2.16.840.1.105158.3.579.2 .593 1944 Unknown [id number] 2.16.840.1.546702.3.579.2 .593 1944 Unknown [id number] 2.16.840.1.038700.3.579.2 .593 1944 Unknown [id number] 2.16.840.1.259802.3.579.2 .593 1944 Unknown [id number] 2.16.840.1.365597.3.579.2 .593 1944 Unknown [id number] 2.16.840.1.074942.3.579.2 .593 1944 Unknown [id number] 2.16.840.1.101798.3.579.2 .593 1944 Unknown [id number] 2.16.840.1.532626.3.579.2 .593 1944 Unknown [id number] 2.16.840.1.300122.3.579.2 .593 1944 Unknown [id number] 2.16.840.1.177588.3.579.2 .593 1944 Unknown [id number] 2.16.840.1.976089.3.579.2 .727 1944 Unknown [id number] 2.16.840.1.911333.3.579.2 .727 1944 Unknown [id number] 2.16.840.1.643513.3.579.2 .727 1944 Unknown [id number] 2.16.840.1.044752.3.579.2 .196 1944 Unknown [id number] 2.16.840.1.450244.3.579.2 .1944 Unknown [id number] 2.16.840.1.314639.3.579.2 .196 1944 Unknown [id number] 2.16.840.1.496305.3.579.2 .1258 1944 Unknown [id number] 2.16.840.1.313147.3.579.2 .1258 1944 Unknown [id number] 2.16.840.1.943612.3.579.2 .1258 1944 Unknown [id number] 2.16.840.1.358946.3.579.2 .1258 1944 Unknown [id number] 2.16.840.1.183554.3.579.2 .1258 1944 Unknown [id number] 2..840.1.383331.3.579.2 .1258 1944 Unknown [id number] 2.840.1.487745.3.579.2 .1258 1944 Unknown [id number] 2.840.1.962817.3.579.2 .1258 1944 Unknown [id number] 2.16840.1.830384.3.579.2 .1258 1944 Unknown [id number] 2.16.840.1.846817.3.579.2 .1258 1944 Unknown [id number] 2.16.840.1.808560.3.579.2 .1258 1944 Unknown [id number] 2.16.840.1.215647.3.579.2 .125 Unknown [id number] Unknown [id number] 2.16.840.1.847707.19 Unknown [id number] Conversion Insurance [id number] Unknown [id number] 2.16.840.1.255162.3.579.2 .531 Unknown [id number] 2.16.840.1.007998.3.579.2 .531 Social History Date Type Detail Facility Start: 05-21-2021 End: 10-01-2023 Tobacco smoking status NHIS Ex-smoker [facility] End: 07-20-1994 History of tobacco use Current smoker [facility] End: 07-20-1994 History of tobacco use Cigar Smoker [facility] Start: 05-21-2021 End: 10-01-2023 Tobacco use and exposure Smokeless tobacco non-user [facility] Start: 10-10-2021 End: 03-14-2025 Alcohol intake Ex-drinker (finding) [facility] Start: 05-21-2021 End: 10-16-2022 Tobacco Comment Quit 15+ years [facility] Start: 1945 Sex Assigned At Not on file C [facility] Start: 08-25-2021 End: 09-24-2021 Exposure to SARS-CoV-2 (event) Not sure [facility] Start: 09-16-2022 Tobacco smoking status Never s moked tobacco (finding) [facility] Start: 10-23-2014 Tobacco smoking status Former smokeless tobacco user, quit more than 30 days ago [facility] Start: 10-15-2023 End: 01-06-2025 Sex Assigned [address] Male [facility] Start: 10-15-2023 End: 01-06-2025 History of Social function [facility] Start: 1945 Sex Assigned At Male F [facility] History of tobacco use Cigarette Smoker [facility] History of tobacco use Passive smoker [facility] Start: 06-02-2024 End: 03-16-2025 Alcoholic beverage intake Lifetime non-drinker (finding) [facility] Start: 09-14-2024 End: 12-16-2024 Sex Male (finding) [facility] Has the electric, [employer], [employer], or water [employer] threatened to shut off services in your home in past 12Mo No [facility] (I/We) worried wheth er (my/our) food would run out before (I/we) got money to buy more. Never true [facility] Medical Equipment Procedure Code Equipment Code Equipment Original Text Equipment Identifier Dates Mesh Parietene Polypropylene Macroporous [id number] Surgical Monofilament - [id number] Start: 09-24-2021 Blood Sugar Diag nostic [...] Test Strips) strip Start: 09-07-2023 End: 09-14-2023 Stent [place] Viabi l 10mm 6cm 200cm Endoprosthesis Short Wire Drainage Hole - [id number] Start: 01-19-2025 Blood Sugar Diag nostic (Accu-Chek Guide Test Strips) strip Start: 09-12-2024 Blood Sugar Diag nostic (Accu-Chek Guide Test Strips) strip Start: 09-14-2023 End: 09-12-2024 Blood Sugar Diag nostic (Accu-Chek Guide Test Strips) strip Start: 09-07-2023 End: 09-14-2023 Functional Status Date Assessment Result Facility 02-16-2025 Are you deaf, or do you have serious difficulty hearing No 02/16/2025 2:34 PM EDT Veto Mary, RN No [facility] 02-16-2025 Are you blind, or do you have serious difficulty seeing, even when wearing glasses No 02/16/2025 2:34 PM EDT Veto Mary, RN No [facility] 02-16-2025 Do you have serious difficulty walking or climbing stairs No 02/16/2025 2:34 PM EDT Veto Mary, RN No [facility] 02-16-2025 Do you have difficul ty dressing or bathing No 02/16/2025 2:34 PM EDT Veto Mary, RN No [facility] 02-16-2025 Because of a physica l, mental, or emotional condition, do you have difficulty doing errands alone such as visiting a physician's office or shopping No 02/16/2025 2:34 PM EDT Veto Mary, RN No [facility] 01-20-2025 Are you deaf, or do you have serious difficulty hearing No 01/20/2025 11:22 AM Rae Rodriguez, NILAM [facility] 01-20-2025 Are you blind, or do you have serious difficulty seeing, even when wearing glasses No 01/20/2025 11:22 AM Rae Rodriguez, NILAM No [facility] 01-20-2025 Do you have serious difficulty walking or climbing stairs No 01/20/2025 11:22 AM Rae Rodriguez, NILAM No [facility] 01-20-2025 Do you have difficul ty dressing or bathing No 01/20/2025 11:22 AM Rae Rodriguez, NILAM No [facility] 01-20-2025 Because of a physica l, mental, or emotional condition, do you have difficulty doing errands alone such as visiting a physician's office or shopping No 01/20/2025 11:22 AM Rae Rodriguez, NILAM [facility] 10-01-2021 Are you deaf, or do you have serious difficulty hearing No 10/01/2021 2:46 PM EDT Wendy Paris, NILAM No [facility] 10-01-2021 Are you blind, or do you have serious difficulty seeing, even when wearing glasses No 10/01/2021 2:46 PM EDT Wendy Paris, NILAM No [facility] 10-01-2021 Do you have serious difficulty walking or climbing stairs No 10/01/2021 2:46 PM EDT Wendy Paris, RN No [facility] 10-01-2021 Do you have difficul ty dressing or bathing No 10/01/2021 2:46 PM EDT Wendy Paris, RN No [facility] 10-01-2021 Because of a physica l, mental, or emotional condition, do you have difficulty doing errands alone such as visiting a physician's office or shopping No 10/01/2021 2:46 PM EDT Wendy Paris, NILAM No [facility] Mental Status Date Assessment Result Facility 02-16-2025 Because of a physica l, mental, or emotional condition, do you have serious difficulty concentrating, remembering, or making decisions No 02/16/2025 2:34 PM EDT Veto Mary, NILAM No [facility] 01-20-2025 Because of a physica l, mental, or emotional condition, do you have serious difficulty concentrating, remembering, or making decisions No 01/20/2025 11:22 AM EDT Rae Quick, NILAM No [facility] 10-01-2021 Because of a physica l, mental, or emotional condition, do you have serious difficulty concentrating, remembering, or making decisions No 10/01/2021 2:46 PM EDT Wendy Paris, NILAM No [facility] Clinical Notes 12-29-2020 to 03-16-2025 Phillip Bingham DPM - 03/16/2025 11:30 AM Jay Aragon MD - 03/14/2025 3:00 PM EDTTelephone Encounter - Magdalena Marques RN - 03/01/2025 10:11 AM Tram Feng RN - 02/24/2025 2:07 PM EDT Note Date & Type Note Facility 03-16-2025 History of Present illness Narrative Patient: Lzizy Yee : 1945 PCP: Juancarlos Cuenca DO SUBJECTIVE This is a 79 y.o. male that presents today with a [...] 30 MINUTES BY BREAKFAST, Disp: , Rfl: [id number] 1-0.5-0.075 % solution, Administer 1 drop into [...] on file Food Insecurity: No Food Insecurity (01/19/2025) Received from [facility] Hunger Vital Sign Worried About Running Out of Food in the Last Year: Never true Ran Out of Food in the Last Year: Never true Transportation Needs: No Transportation Needs (01/19/2025) Received from [facility] PRAPARE - Transportation Lack of Transportation (Medical): No Lack of Transportation (Non-Medical): No Physical Activity: Not on file Stress: Not on file Social Connections: Not on file Intimate Partner Violence: Unknown (09/10/2023) Received from [facility] Fear of Current or Ex-Partner: Not on file Emotionally Abused: Not on file Physically Abused: Not on file Sexually Abused: Not on file Physically or Sexually Abused: Not on file Housing Stability: Unknown (01/19/2025) Received from [facility] Housing Stability Vital Sign Unable to Pay for Housing in the Last Year: No Number of Times Moved in the Last Year: Not on file Homeless in the Last Year: No ROS: General: denies fever, chills, fatigue, malaise OBJECTIVE LE EXAM: DERM: Elongated thick yellow crumbly nails digits 1 through 10. Negative hair growth with thin shiny atrophic skin bilaterally. VASC: Positive DP and negative PT pedal pulses NEURO: 5.07 Archer Haroon monofilament test diminished to digits and forefoot bilaterally 125Hz tuning fork diminished to 1st MPJ bilaterally ORTHO: Positive pain on palpation to toenails of the left 1,2,3,4,5 toes and right 1,2,3,4,5 toes ASSESSMENT 1. 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 Pain due to [...] Phillip Bingham DPM documented in this encounter [facility] 03-14-2025 History of Present illness Narrative [facility] - Follow Up Visit Assessment/Plan: Lizzy Yee is an 79 year old male s/p laparoscopic cholecystectomy with intraoperative cholangiogram on 02/15/2025 for choledocholithiasis and chronic cholecystitis. He presents today, 27 days postoperatively and is doing well. His pain has resolved, he is having no issues with PO intake, his wounds are healing well, and he is recovering appropriately. The patient's pathology demonstrated chronic cholecystitis- this was reviewed with the patient. - Follow up as needed Subjective: Feeling well. No pain at this point - just occasional discomfort around his epigastric lap site. Had a skin glue reaction and had to peel this off. No issues with PO intake or bowel function. Had his CBD stent removed. Still feeling a little fatigued. Objective: AAOx3, NAD Non-labored respirations on RA Abdomen soft, non-distended, and mildly tender around the patient's lap sites. Still a little irritation around his midclavicular lap site. No erythema or induration. Jay Gonzalez MD 03/14/25, 2:55 PM General Surgery [facility] documented in this encounter [facility] 03-14-2025 Note HNO ID: [id number] Author: JAY GONZALEZ MD Service: ? Author Type: Physician Type: Progress Notes Filed: 03/14/2025 16:01 Note Text: [facility] - Follow Up Visit Assessment/Plan: Lizzy Yee is an 79 year old male s/p laparoscopic cholecystectomy with intraoperative cholangiogram on 02/15/2025 for choledocholithiasis and chronic cholecystitis. He presents today, 27 days postoperatively and is doing well. His pain has resolved, he is having no issues with PO intake, his wounds are healing well, and he is recovering appropriately. The patient's pathology demonstrated chronic cholecystitis- this was reviewed with the patient. - Follow up as needed Subjective: Feeling well. No pain at this point - just occasional discomfort around his epigastric lap site. Had a skin glue reaction and had to peel this off. No issues with PO intake or bowel function. Had his CBD stent removed. Still feeling a little fatigued. Objective: AAOx3, NAD Non-labored respirations on RA Abdomen soft, non-distended, and mildly tender around the patient's lap sites. Still a little irritation around his midclavicular lap site. No erythema or induration. Jay Gonzalez MD 03/14/25, 2:55 PM General Surgery [facility] 03-01-2025 Telephone encounter Note Called patient for an update on incisions. Patient reports redness has subsided. No drainage noted from any incisions. Follow up appointment scheduled on 03/[address] Gonzalez. [facility] 03-01-2025 Miscellaneous Notes Called patient for an update on incisions. Patient reports redness has subsided. No drainage noted from any incisions. Follow up appointment scheduled on 03/[address] Gonzalez. documented in this encounter [facility] 02-24-2025 Nurse Note Summary: Surgical site concern Other: Nursing assessment During recovery after endoscopic procedure, patient's recent lap maria dolores surgical site was visualized. The area is red and warm to the touch. The surgical incisions appear normal, but the surrounding areas are concerning. Dr. Gonzalez's office made aware at this time 02/24 @ 14:00 - I spoke with Mylene Flood. Patient instructed to follow up with surgeon and to watch for signs and symptoms of worsening infection. Patient and educated. Tram RN [facility] 02-24-2025 Nurse Note Summary: Surgical site concern Other: Nursing assessment During recovery after endoscopic procedure, patient's recent lap maria dolores surgical site was visualized. The area is red and warm to the touch. The surgical incisions appear normal, but the surrounding areas are concerning. Dr. Gonzalez's office made aware at this time 02/24 @ 14:00 - I spoke with Mylene Flood. Patient instructed to follow up with surgeon and to watch for signs and symptoms of worsening infection. Patient and educated. Tram RN documented in this encounter [facility] 02-24-2025 Attending History and physical note PROCEDURAL SEDATION HISTORY AND PHYSICAL EXAM SERVICE DATE: 02/24/2025 SERVICE TIME: 11:32 AM Subjective HPI: This is a 79 year old male who presents for endoscopic retrograde cholangiopancreatography PAST ANESTHESIA HISTORY: No history of adverse event PAST MEDICAL HISTORY Diagnosis Date ASHD (arteriosclerotic heart disease) BPH with obstruction/lower urinary tract symptoms Gastroesophageal reflux disease without esophagitis Generalized anxiety disorder History of colonic polyps HTN (hypertension) Mixed hyperlipidemia Morbid obesity (HCC) Sleep apnea Ventral hernia PAST SURGICAL HISTORY Procedure Laterality Date CABG (4) VEIN GRAFTS & ARTERIAL GRAFT(S) 2017 COLONOSCOPY CYSTOSCOPY 2016 LAPAROSCOPIC HEMICOLECTOMY 2017 villoglandular polyp PAST SURGICAL HISTORY OF Right rt hemicolectomy PAST SURGICAL HISTORY OF Right total knee arthroplasty REPAIR INCISIONAL HERNIA,REDUCIBLE 2012 REVISE MEDIAN N/CARPAL TUNNEL SURG TOTAL HIP REPLACEMENT 2008 TRANSURETHRAL ELEC-SURG PROSTATECTOM 2016 TRANSURETHRAL ELEC-SURG PROSTATECTOM VASECTOMY VASECTOMY Prior to Admission medications as of 02/15/25 1621 Medication Sig Last Dose Taking clopidogrel (PLAVIX) 75 mg tablet Take 1 tablet by mouth once daily. HOLD UNTIL YOUR PROCEDURE WITH GASTROENTEROLOGY ON 02/24. DISCUSS WITH YOUR CONCRETE PIPE MAKER WHEN TO RESUME AFTER YOUR PROCEDURE. baclofen 10 mg tablet TAKE 1 TABLET BY MOUTH EVERYDAY AT BEDTIME NEEDED FOR MUSCLE SPASMS amLODIPine (NORVASC) 5 mg tablet Take 1 tablet by mouth once daily. traMADol (ULTRAM) 50 mg tablet take 1 tablet by mouth at bedtime for 30 days lisinopril (ZESTRIL) 30 mg tablet 30 mg. carvedilol (COREG) 6.25 mg tablet TAKE 1 TABLET BY MOUTH WITH BREAKFAST AND EVENING MEAL carvedilol (COREG) 12.5 mg tablet 1 tablet by ORAL/FEEDING TUBE route q 12 HR. Patient taking differently: Take 12.5 mg by mouth q 12 HR. 1/2 tab twice a day tamsulosin (FLOMAX) 0.4 mg Take 1 capsule by mouth once daily. loratadine (CLARITIN) 10 mg tablet Take 10 mg by mouth. MULTI-VITAMIN ORAL Take by mouth once daily. ZINC ORAL Take by mouth once daily. ascorbic acid (VITAMIN C ORAL) Take by mouth once daily. vitamin B complex (B COMPLEX 1 ORAL) Take by mouth once daily. docosahexaenoic acid/epa (FISH OIL ORAL) Take by mouth once daily. CHOLECALCIFEROL, VITAMIN D3, ORAL Take by mouth once daily. MAGNESIUM ORAL Take by mouth once daily. CPAP daily at bedtime. glipiZIDE (GLUCOTROL) 5 mg tablet once daily. sertraline (ZOLOFT) 100 mg tablet TAKE 1 TABLET BY MOUTH EVERYDAY AT BEDTIME Patient not taking: Reported on 02/10/[address] (PROTONIX) 40 mg tablet Take 40 mg by mouth once daily. hydroCHLOROthiazide (HYDRODIURIL, ESIDRIX) 25 mg tablet Take 25 mg by mouth once daily. atorvastatin (LIPITOR) 80 mg tablet Take 80 mg by mouth once daily. aspirin 81 mg cap Take by mouth once daily. ALLERGIES No Known Allergies Objective PHYSICAL EXAM: The remainder of the physical exam is noncontributory. AIRWAY: Mouth opening greater than 3 fingerbreadths: Yes Neck Full Range of Motion: Yes LUNGS: Lungs clear to auscultation CARDIAC: Regular rhythm,Regular rate Assessment/Plan ASA Class: ASA Class: Patient with severe systemic disease Active Problems: * No active hospital problems. * Resolved Problems: * No resolved hospital problems. * Morbid Obesity Class 3 Medication and Non-Pharmacologic VTE Prophylaxis/Anticoagulants VTE Prophylaxis: VTE prophylaxis appropriate Provisional Diagnosis/Treatment Plan: Stent removal Sedation Goal: Anesthesia SIGNATURE: Deangelo El MD PATIENT NAME: Lizzy Yee DATE: February 24, 2025 TIME: 11:32 AM Source Note - Elisa Amin APRN.NEW ACCOUNTS CLERK - 02/10/2025 1:38 PM EDT Images from the original note were not included. [facility] HISTORY AND PHYSICAL EXAMINATION SERVICE DATE: 02/10/2025 SERVICE TIME: 1340 PRIMARY CARE PHYSICIAN: Juancarlos Cuenca DO Assessment Patient has the following medical conditions which may affect machelle-operative course: ASHD (arteriosclerotic heart disease) S/P CABG x 4 Assessment: previous cardiac stents, none current since CABG 2016. Managed and monitored by cardiology Dr. Richardson. [facility] 04/2024. Notes of non ischemic stress test from 2020. Denies any recent changes in cardiac health, CP, Shortness of Breath. Will obtain most recent EKG and ECHO from that office. Also had inpatient cardiac clearance completed 01/18/25 at [place] prior to ERCP stent placement with no contraindications. Takes plavix and ASA, has already stopped plavix per surgeons instructions (okay in the past for other procedures per patient with no complications), continue ASA prior to surgery. HLD (hyperlipidemia) Assessment: treated with statin HTN (hypertension) Assessment: stable on current medication regimen, advised to continue antihypertensives prior to surgery. Last 14 BP Last 14 Encounter BP Readings: Date: BP: 02/10/2025 107/63 02/09/2025 131/70 01/19/2025 119/77 01/17/2025 164/77 10/20/2024 143/78 10/15/2023 127/65 10/16/2022 143/66 01/27/2022 131/56 10/10/2021 137/65 10/10/2021 137/65 09/24/2021 108/70 09/13/2021 104/76 05/24/2021 94/60 05/21/2021 153/69 PAD (peripheral artery disease) Assessment: managed and monitored by vascular Dr. Robledo. Stable. [facility] 02/02/25. Denies any recent concerns or complications. Sleep apnea Assessment: CPAP compliant History of partial colectomy Assessment: hx of several years ago with anastomosis. stable. Denies any recent concerns or complications. Type 2 diabetes mellitus, without long-term current use of insulin (HCC) Assessment: Most recent A1c 8.3 (10/2024) reports that fasting glucose recently has been 90's to 100's. Takes daily glipizide. Within acceptable range per anesthesia guidelines and aware glucose must be below 200 morning of surgery. Aware of all pre-op instructions and will follow up A1c with PCP as soon as possible. Morbid obesity (HCC) Assessment: Current BMI 35. ANESTHESIA FINDINGS: Intubation History: No history of difficult intubation Significant Anesthesia Considerations: none Airway History: No history of difficult airway Guidry Activity Status Index: METS: Walk indoors, such as around the house (1.75 METs) Do light work around the house, such as dusting or washing dishes (2.70 METs) Take care of self; that is eating, dressing, bathing, using the toilet (2.75 METs) Walk a block or two on level ground (2.75 METs) DASI Score: 9.95 Patient denies any chest pain or undue shortness of breath with the above physical activity. Patient is limited most or all of the time (uses scooter, mobility device). Clinical Frailty Scale: 4. Apparently vulnerable STOP-Bang Score: STOP-Bang Score: (+BHUPENDRA CPAP compliant ) [id number] Score: Age: >=75 Sex: male CHF history: No Hypertension history: Yes Stroke/TIA/thromboembolism history: No Vascular disease history: Yes Diabetes history: Yes [id number] Score: 5 ARISCAT Score: Age: 51-80 Preoperative SpO2: >=96% Respiratory infection in the last month: No Preoperative anemia: No Surgical incision: upper abdominal Duration of surgery: 2-3 hrs Emergency procedure: No ARISCAT Score: 34 I - PHYSICAL EVALUATION AIRWAY Patient intubated: No. Tracheostomy tube not present Mallampati: III. TM distance: >3 FB. Neck ROM: full ROM without neurological symptoms. Mouth opening: adequate. Short neck: no. Additional comments: +Stiff neck . Thick neck: no DENTAL Dental findings: teeth intact. II - ANESTHESIA PLAN Anesthetic plan additional comments: *PACC/TCI - anesthesia choice. Beta Joselo Monitoring Plan Post Procedure Analgesic Plan Prepared for Surgery: optimally prepared for surgery. Most recent cardiology records requested from Dr. Brooks's office. ADDENDUM 02/13 Most recent EKG and Echo received and in scanned documents. Patient is optimized from PACC standpoint. CONSULTS: Patient does not require consults for optimization at this time Planned Anesthetic: anesthesia choice The Following Tests/Procedures Have Been Initiated: Orders Placed This Encounter baclofen 10 mg tablet Sig: TAKE 1 TABLET BY MOUTH EVERYDAY AT BEDTIME NEEDED FOR MUSCLE SPASMS amLODIPine (NORVASC) 5 mg tablet Sig: Take 1 tablet by mouth once daily. traMADol (ULTRAM) 50 mg tablet Sig: take 1 tablet by mouth at bedtime for 30 days lisinopril (ZESTRIL) 30 mg tablet Si mg. carvedilol (COREG) 6.25 mg tablet Sig: TAKE 1 TABLET BY MOUTH WITH BREAKFAST AND EVENING MEAL REASON FOR VISIT: Lizzy Yee is a 79 year old male who is scheduled for Procedure(s) with comments: LAPAROSCOPIC CHOLECYSTECTOMY WITH GRAMS (N/A) - poss grams at the request of Dr. Jay Gonzalez for consultation. My final recommendation will be communicated back to the requesting physician by way of shared medical record or letter. Subjective The patient has the following: COVID-19 Immunization Status This patient has no relevant Health Maintenance data. CHIEF COMPLAINT: I am having surgery HPI: 79 year old male with diagnosis of Choledocholithiasis scheduled for LAPAROSCOPIC CHOLECYSTECTOMY WITH GRAMS. Denies any current acute abd pain, N/V. REVIEW OF SYSTEMS: General: No weight loss, malaise or fevers. Neurological: No history of TIA's, stroke, CATARACT LENS GENERATOR tumor, impaired sensorium, hemiplegia, paraplegia or quadraplegia. No neurological symptoms or problems. Respiratory: Positive for: obstructive sleep apnea and CPAP/BiPAP compliant. Negative for: asthma, COPD, home oxygen and pneumonia within 6 weeks. Cardiovascular: Positive for: anticoagulation therapy, CAD, hyperlipidemia, hypertension and PVD Negative for: chest pain and CHF. GI: See HPI. Positive for: GERD : No history of dysuria, frequency or incontinence, stones or chronic kidney disease. No difficulty urinating, nocturia > 1 time per night or hematuria. Endocrine: Positive for: diabetes mellitus. Patient's diabetes mellitus is controlled by oral agents. Hematology: Positive for: chronic anti-coagulation/platelet meds. Patient is on anti-coagulation/platelet medication(s): Plavix and Aspirin. Oncology: +hx of colon polyps, BCC Psych: No history of psychiatric symptoms or problems. Musculoskeletal: Positive for: back pain. Skin: Negative for lesions, rash and itching. PAST MEDICAL HISTORY Diagnosis Date ASHD (arteriosclerotic heart disease) BPH with obstruction/lower urinary tract symptoms Gastroesophageal reflux disease without esophagitis Generalized anxiety disorder History of colonic polyps HTN (hypertension) Mixed hyperlipidemia Morbid obesity (HCC) Sleep apnea Ventral hernia PAST SURGICAL HISTORY Procedure Laterality Date CABG (4) VEIN GRAFTS & ARTERIAL GRAFT(S) 2017 COLONOSCOPY CYSTOSCOPY 2016 LAPAROSCOPIC HEMICOLECTOMY 2017 villoglandular polyp PAST SURGICAL HISTORY OF Right rt hemicolectomy PAST SURGICAL HISTORY OF Right total knee arthroplasty REPAIR INCISIONAL HERNIA,REDUCIBLE 2012 REVISE MEDIAN N/CARPAL TUNNEL SURG TOTAL HIP REPLACEMENT 2008 TRANSURETHRAL ELEC-SURG PROSTATECTOM 2016 TRANSURETHRAL ELEC-SURG PROSTATECTOM VASECTOMY VASECTOMY FAMILY HISTORY Problem Relation Age of Onset Hypertension Mother Heart disease Mother Hypertension Father Anesthesia Problems No Family History Social History Tobacco Use Smoking status: Former Types: Cigars Quit date: 1994 Years since quittin.5 Smokeless tobacco: Never Tobacco comments: Quit 15+ years Substance Use Topics Alcohol use: Not Currently Drug use: Never Prior to Admission medications as of 02/10/25 7118 Medication Sig Last Dose Taking baclofen 10 mg tablet TAKE 1 TABLET BY MOUTH EVERYDAY AT BEDTIME NEEDED FOR MUSCLE SPASMS Yes amLODIPine (NORVASC) 5 mg tablet Take 1 tablet by mouth once daily. Yes traMADol (ULTRAM) 50 mg tablet take 1 tablet by mouth at bedtime for 30 days Yes lisinopril (ZESTRIL) 30 mg tablet 30 mg. Yes carvedilol (COREG) 6.25 mg tablet TAKE 1 TABLET BY MOUTH WITH BREAKFAST AND EVENING MEAL Yes loratadine (CLARITIN) 10 mg tablet Take 10 mg by mouth. Yes MAGNESIUM ORAL Take by mouth once daily. Yes CPAP daily at bedtime. Yes glipiZIDE (GLUCOTROL) 5 mg tablet once daily. Yes pantoprazole DR (PROTONIX) 40 mg tablet Take 40 mg by mouth once daily. Yes hydroCHLOROthiazide (HYDRODIURIL, ESIDRIX) 25 mg tablet Take 25 mg by mouth once daily. Yes atorvastatin (LIPITOR) 80 mg tablet Take 80 mg by mouth once daily. Yes clopidogrel (PLAVIX) 75 mg tablet Take 75 mg by mouth once daily. Yes aspirin 81 mg cap Take by mouth once daily. Yes tramadol HCl (TRAMADOL ORAL) Take 50 mg by mouth. carvedilol (COREG) 12.5 mg tablet 1 tablet by ORAL/FEEDING TUBE route q 12 HR. Patient taking differently: Take 12.5 mg by mouth q 12 HR. 1/2 tab twice a day tamsulosin (FLOMAX) 0.4 mg Take 1 capsule by mouth once daily. MULTI-VITAMIN ORAL Take by mouth once daily. ZINC ORAL Take by mouth once daily. ascorbic acid (VITAMIN C ORAL) Take by mouth once daily. vitamin B complex (B COMPLEX 1 ORAL) Take by mouth once daily. docosahexaenoic acid/epa (FISH OIL ORAL) Take by mouth once daily. CHOLECALCIFEROL, VITAMIN D3, ORAL Take by mouth once daily. sertraline (ZOLOFT) 100 mg tablet TAKE 1 TABLET BY MOUTH EVERYDAY AT BEDTIME Patient not taking: Reported on 02/10/2025 No medication comments found. ALLERGIES No Known Allergies Objective PHYSICAL EXAM: General: alert and oriented. Pertinent negatives noted - not distressed. Skin: normal color, no rash or lesions. HEENT: EOM intact, pupils equal round and pupils reactive to light. Cardiovascular: regular rate and rhythm, normal S1 and S2, no rub, murmurs, or gallop. Respiratory: normal breath sounds, no wheezes or crackles. No chest wall deformity or tenderness. Abdomen: Pertinent negatives noted - not distended. Extremities: no deformity, no edema or tenderness, no joint swelling or clubbing. Neurological: normal cognition and motor skills. Gait normal. No weakness or sensory deficit. PAIN ASSESSMENT: VITALS: BP 107/63 Pulse 58 Temp (Src) 97.1 (Temporal) Resp 16 Ht 5' 5 (1.65m) Wt 211 lb 10.3 oz (96.0kg) SpO2 97% BMI 35.22 kg/(m^2). Diagnostic tests reviewed for today's visit: Lab Value Units Date High Low HB 13.6 g/dL 01/20/2025 17.0 13.0 HCT 39.9 % 01/20/2025 51.0 39.0 WBC 7.92 k/uL 01/20/2025 11.00 3.70 PLT 172 k/uL 01/20/2025 400 150 NA 129 mmol/L 01/20/2025 144 136 K 3.9 mmol/L 01/20/2025 5.1 3.7 GLUC 213 mg/dL 01/20/2025 99 74 BUN 15 mg/dL 01/20/2025 24 9 CREAT 1.14 mg/dL 01/20/2025 1.22 0.73 PTSEC 11.6 sec 01/20/2025 13.0 9.7 INR 1.0 no uni* 01/20/2025 1.3 0.9 APTT No results within date range. ALT 24 U/L 01/20/2025 54 10 AST 26 U/L 01/20/2025 40 14 TBILI 1.0 mg/dL 01/20/2025 1.3 0.2 TSH No results within date range. Lab Value Units Date High Low HCGQT No results within date range. UHCG No results within date range. HCG, BODY* No results within date range. Lab Value Units Date High Low ABORHD No results within date range. ABSCREEN No results within date range. Glycohemoglobin A1C on 10-27-2024 Glucose [Mass/Vol] 192 mg/dL Normal [facility] [place] Comment on above: Performed By: #### A1C ####[facility], HbA1c (Bld) [Mass fraction] 8.3 % Hemoglobin A1C (%) Date Value 09/13/2021 7.6 EKG and ECHO in scanned documents. Instructions Given to Patient: Instructions located in the after visit summary. Patient given verbal and written preop instructions and voices comprehension and compliance. SIGNATURE: Elisa Amin APRN.CNP PATIENT NAME: Lizzy Yee DATE: February 10, 2025 TIME:3:31 PM PAGER/CONTACT #: [facility] 02-24-2025 History and physical note PROCEDURAL SEDATION HISTORY AND PHYSICAL EXAM SERVICE DATE: 02/24/2025 SERVICE TIME: 11:32 AM Subjective HPI: This is a 79 year old male who presents for endoscopic retrograde cholangiopancreatography PAST ANESTHESIA HISTORY: No history of adverse event PAST MEDICAL HISTORY Diagnosis Date ASHD (arteriosclerotic heart disease) BPH with obstruction/lower urinary tract symptoms Gastroesophageal reflux disease without esophagitis Generalized anxiety disorder History of colonic polyps HTN (hypertension) Mixed hyperlipidemia Morbid obesity (HCC) Sleep apnea Ventral hernia PAST SURGICAL HISTORY Procedure Laterality Date CABG (4) VEIN GRAFTS & ARTERIAL GRAFT(S) 2017 COLONOSCOPY CYSTOSCOPY 2016 LAPAROSCOPIC HEMICOLECTOMY 2017 villoglandular polyp PAST SURGICAL HISTORY OF Right rt hemicolectomy PAST SURGICAL HISTORY OF Right total knee arthroplasty REPAIR INCISIONAL HERNIA,REDUCIBLE 2012 REVISE MEDIAN N/CARPAL TUNNEL SURG TOTAL HIP REPLACEMENT 2008 TRANSURETHRAL ELEC-SURG PROSTATECTOM 2016 TRANSURETHRAL ELEC-SURG PROSTATECTOM VASECTOMY VASECTOMY Prior to Admission medications as of 02/15/25 1621 Medication Sig Last Dose Taking clopidogrel (PLAVIX) 75 mg tablet Take 1 tablet by mouth once daily. HOLD UNTIL YOUR PROCEDURE WITH GASTROENTEROLOGY ON 02/24. DISCUSS WITH YOUR CONCRETE PIPE MAKER WHEN TO RESUME AFTER YOUR PROCEDURE. baclofen 10 mg tablet TAKE 1 TABLET BY MOUTH EVERYDAY AT BEDTIME NEEDED FOR MUSCLE SPASMS amLODIPine (NORVASC) 5 mg tablet Take 1 tablet by mouth once daily. traMADol (ULTRAM) 50 mg tablet take 1 tablet by mouth at bedtime for 30 days lisinopril (ZESTRIL) 30 mg tablet 30 mg. carvedilol (COREG) 6.25 mg tablet TAKE 1 TABLET BY MOUTH WITH BREAKFAST AND EVENING MEAL carvedilol (COREG) 12.5 mg tablet 1 tablet by ORAL/FEEDING TUBE route q 12 HR. Patient taking differently: Take 12.5 mg by mouth q 12 HR. 1/2 tab twice a day tamsulosin (FLOMAX) 0.4 mg Take 1 capsule by mouth once daily. loratadine (CLARITIN) 10 mg tablet Take 10 mg by mouth. MULTI-VITAMIN ORAL Take by mouth once daily. ZINC ORAL Take by mouth once daily. ascorbic acid (VITAMIN C ORAL) Take by mouth once daily. vitamin B complex (B COMPLEX 1 ORAL) Take by mouth once daily. docosahexaenoic acid/epa (FISH OIL ORAL) Take by mouth once daily. CHOLECALCIFEROL, VITAMIN D3, ORAL Take by mouth once daily. MAGNESIUM ORAL Take by mouth once daily. CPAP daily at bedtime. glipiZIDE (GLUCOTROL) 5 mg tablet once daily. sertraline (ZOLOFT) 100 mg tablet TAKE 1 TABLET BY MOUTH EVERYDAY AT BEDTIME Patient not taking: Reported on 02/10/[address] (PROTONIX) 40 mg tablet Take 40 mg by mouth once daily. hydroCHLOROthiazide (HYDRODIURIL, ESIDRIX) 25 mg tablet Take 25 mg by mouth once daily. atorvastatin (LIPITOR) 80 mg tablet Take 80 mg by mouth once daily. aspirin 81 mg cap Take by mouth once daily. ALLERGIES No Known Allergies Objective PHYSICAL EXAM: The remainder of the physical exam is noncontributory. AIRWAY: Mouth opening greater than 3 fingerbreadths: Yes Neck Full Range of Motion: Yes LUNGS: Lungs clear to auscultation CARDIAC: Regular rhythm,Regular rate Assessment/Plan ASA Class: ASA Class: Patient with severe systemic disease Active Problems: * No active hospital problems. * Resolved Problems: * No resolved hospital problems. * Morbid Obesity Class 3 Medication and Non-Pharmacologic VTE Prophylaxis/Anticoagulants VTE Prophylaxis: VTE prophylaxis appropriate Provisional Diagnosis/Treatment Plan: Stent removal Sedation Goal: Anesthesia SIGNATURE: Deangelo El MD PATIENT NAME: Lizzy Yee DATE: February 24, 2025 TIME: 11:32 AM Source Note - Elisa Amin APRN.NEW ACCOUNTS CLERK - 02/10/2025 1:38 PM EDT Images from the original note were not included. [facility] HISTORY AND PHYSICAL EXAMINATION SERVICE DATE: 02/10/2025 SERVICE TIME: 1340 PRIMARY CARE PHYSICIAN: Juancarlos Cuenca, DO Assessment Patient has the following medical conditions which may affect machelle-operative course: ASHD (arteriosclerotic heart disease) S/P CABG x 4 Assessment: previous cardiac stents, none current since CABG 2016. Managed and monitored by cardiology Dr. Richardson. [facility] 04/2024. Notes of non ischemic stress test from 2020. Denies any recent changes in cardiac health, CP, Shortness of Breath. Will obtain most recent EKG and ECHO from that office. Also had inpatient cardiac clearance completed 01/18/25 at [place] prior to ERCP stent placement with no contraindications. Takes plavix and ASA, has already stopped plavix per surgeons instructions (okay in the past for other procedures per patient with no complications), continue ASA prior to surgery. HLD (hyperlipidemia) Assessment: treated with statin HTN (hypertension) Assessment: stable on current medication regimen, advised to continue antihypertensives prior to surgery. Last 14 BP Last 14 Encounter BP Readings: Date: BP: 02/10/2025 107/63 02/09/2025 131/70 01/19/2025 119/77 01/17/2025 164/77 10/20/2024 143/78 10/15/2023 127/65 10/16/2022 143/66 01/27/2022 131/56 10/10/2021 137/65 10/10/2021 137/65 09/24/2021 108/70 09/13/2021 104/76 05/24/2021 94/60 05/21/2021 153/69 PAD (peripheral artery disease) Assessment: managed and monitored by vascular Dr. Robledo. Stable. LASHELL 02/02/25. Denies any recent concerns or complications. Sleep apnea Assessment: CPAP compliant History of partial colectomy Assessment: hx of several years ago with anastomosis. stable. Denies any recent concerns or complications. Type 2 diabetes mellitus, without long-term current use of insulin (HCC) Assessment: Most recent A1c 8.3 (10/2024) reports that fasting glucose recently has been 90's to 100's. Takes daily glipizide. Within acceptable range per anesthesia guidelines and aware glucose must be below 200 morning of surgery. Aware of all pre-op instructions and will follow up A1c with PCP as soon as possible. Morbid obesity (HCC) Assessment: Current BMI 35. ANESTHESIA FINDINGS: Intubation History: No history of difficult intubation Significant Anesthesia Considerations: none Airway History: No history of difficult airway Guidry Activity Status Index: METS: Walk indoors, such as around the house (1.75 METs) Do light work around the house, such as dusting or washing dishes (2.70 METs) Take care of self; that is eating, dressing, bathing, using the toilet (2.75 METs) Walk a block or two on level ground (2.75 METs) DASI Score: 9.95 Patient denies any chest pain or undue shortness of breath with the above physical activity. Patient is limited most or all of the time (uses scooter, mobility device). Clinical Frailty Scale: 4. Apparently vulnerable STOP-Bang Score: STOP-Bang Score: (+BHUPENDRA CPAP compliant ) [id number] Score: Age: >=75 Sex: male CHF history: No Hypertension history: Yes Stroke/TIA/thromboembolism history: No Vascular disease history: Yes Diabetes history: Yes [id number] Score: 5 ARISCAT Score: Age: 51-80 Preoperative SpO2: >=96% Respiratory infection in the last month: No Preoperative anemia: No Surgical incision: upper abdominal Duration of surgery: 2-3 hrs Emergency procedure: No ARISCAT Score: 34 I - PHYSICAL EVALUATION AIRWAY Patient intubated: No. Tracheostomy tube not present Mallampati: III. TM distance: >3 FB. Neck ROM: full ROM without neurological symptoms. Mouth opening: adequate. Short neck: no. Additional comments: +Stiff neck . Thick neck: no DENTAL Dental findings: teeth intact. II - ANESTHESIA PLAN Anesthetic plan additional comments: *PACC/TCI - anesthesia choice. Beta Joselo Monitoring Plan Post Procedure Analgesic Plan Prepared for Surgery: optimally prepared for surgery. Most recent cardiology records requested from Dr. Brooks's office. ADDENDUM 02/13 Most recent EKG and Echo received and in scanned documents. Patient is optimized from PACC standpoint. CONSULTS: Patient does not require consults for optimization at this time Planned Anesthetic: anesthesia choice The Following Tests/Procedures Have Been Initiated: Orders Placed This Encounter baclofen 10 mg tablet Sig: TAKE 1 TABLET BY MOUTH EVERYDAY AT BEDTIME NEEDED FOR MUSCLE SPASMS amLODIPine (NORVASC) 5 mg tablet Sig: Take 1 tablet by mouth once daily. traMADol (ULTRAM) 50 mg tablet Sig: take 1 tablet by mouth at bedtime for 30 days lisinopril (ZESTRIL) 30 mg tablet Si mg. carvedilol (COREG) 6.25 mg tablet Sig: TAKE 1 TABLET BY MOUTH WITH BREAKFAST AND EVENING MEAL REASON FOR VISIT: Lizzy Yee is a 79 year old male who is scheduled for Procedure(s) with comments: LAPAROSCOPIC CHOLECYSTECTOMY WITH GRAMS (N/A) - poss grams at the request of Dr. Jay Gonzalez for consultation. My final recommendation will be communicated back to the requesting physician by way of shared medical record or letter. Subjective The patient has the following: COVID-19 Immunization Status This patient has no relevant Health Maintenance data. CHIEF COMPLAINT: I am having surgery HPI: 79 year old male with diagnosis of Choledocholithiasis scheduled for LAPAROSCOPIC CHOLECYSTECTOMY WITH GRAMS. Denies any current acute abd pain, N/V. REVIEW OF SYSTEMS: General: No weight loss, malaise or fevers. Neurological: No history of TIA's, stroke, CATARACT LENS GENERATOR tumor, impaired sensorium, hemiplegia, paraplegia or quadraplegia. No neurological symptoms or problems. Respiratory: Positive for: obstructive sleep apnea and CPAP/BiPAP compliant. Negative for: asthma, COPD, home oxygen and pneumonia within 6 weeks. Cardiovascular: Positive for: anticoagulation therapy, CAD, hyperlipidemia, hypertension and PVD Negative for: chest pain and CHF. GI: See HPI. Positive for: GERD : No history of dysuria, frequency or incontinence, stones or chronic kidney disease. No difficulty urinating, nocturia > 1 time per night or hematuria. Endocrine: Positive for: diabetes mellitus. Patient's diabetes mellitus is controlled by oral agents. Hematology: Positive for: chronic anti-coagulation/platelet meds. Patient is on anti-coagulation/platelet medication(s): Plavix and Aspirin. Oncology: +hx of colon polyps, BCC Psych: No history of psychiatric symptoms or problems. Musculoskeletal: Positive for: back pain. Skin: Negative for lesions, rash and itching. PAST MEDICAL HISTORY Diagnosis Date ASHD (arteriosclerotic heart disease) BPH with obstruction/lower urinary tract symptoms Gastroesophageal reflux disease without esophagitis Generalized anxiety disorder History of colonic polyps HTN (hypertension) Mixed hyperlipidemia Morbid obesity (HCC) Sleep apnea Ventral hernia PAST SURGICAL HISTORY Procedure Laterality Date CABG (4) VEIN GRAFTS & ARTERIAL GRAFT(S) 2017 COLONOSCOPY CYSTOSCOPY 2016 LAPAROSCOPIC HEMICOLECTOMY 2017 villoglandular polyp PAST SURGICAL HISTORY OF Right rt hemicolectomy PAST SURGICAL HISTORY OF Right total knee arthroplasty REPAIR INCISIONAL HERNIA,REDUCIBLE 2012 REVISE MEDIAN N/CARPAL TUNNEL SURG TOTAL HIP REPLACEMENT 2007 TRANSURETHRAL ELEC-SURG PROSTATECTOM 2015 TRANSURETHRAL ELEC-SURG PROSTATECTOM VASECTOMY VASECTOMY FAMILY HISTORY Problem Relation Age of Onset Hypertension Mother Heart disease Mother Hypertension Father Anesthesia Problems No Family History Social History Tobacco Use Smoking status: Former Types: Cigars Quit date: 1994 Years since quittin.5 Smokeless tobacco: Never Tobacco comments: Quit 15+ years Substance Use Topics Alcohol use: Not Currently Drug use: Never Prior to Admission medications as of 02/10/25 1348 Medication Sig Last Dose Taking baclofen 10 mg tablet TAKE 1 TABLET BY MOUTH EVERYDAY AT BEDTIME NEEDED FOR MUSCLE SPASMS Yes amLODIPine (NORVASC) 5 mg tablet Take 1 tablet by mouth once daily. Yes traMADol (ULTRAM) 50 mg tablet take 1 tablet by mouth at bedtime for 30 days Yes lisinopril (ZESTRIL) 30 mg tablet 30 mg. Yes carvedilol (COREG) 6.25 mg tablet TAKE 1 TABLET BY MOUTH WITH BREAKFAST AND EVENING MEAL Yes loratadine (CLARITIN) 10 mg tablet Take 10 mg by mouth. Yes MAGNESIUM ORAL Take by mouth once daily. Yes CPAP daily at bedtime. Yes glipiZIDE (GLUCOTROL) 5 mg tablet once daily. Yes pantoprazole DR (PROTONIX) 40 mg tablet Take 40 mg by mouth once daily. Yes hydroCHLOROthiazide (HYDRODIURIL, ESIDRIX) 25 mg tablet Take 25 mg by mouth once daily. Yes atorvastatin (LIPITOR) 80 mg tablet Take 80 mg by mouth once daily. Yes clopidogrel (PLAVIX) 75 mg tablet Take 75 mg by mouth once daily. Yes aspirin 81 mg cap Take by mouth once daily. Yes tramadol HCl (TRAMADOL ORAL) Take 50 mg by mouth. carvedilol (COREG) 12.5 mg tablet 1 tablet by ORAL/FEEDING TUBE route q 12 HR. Patient taking differently: Take 12.5 mg by mouth q 12 HR. 1/2 tab twice a day tamsulosin (FLOMAX) 0.4 mg Take 1 capsule by mouth once daily. MULTI-VITAMIN ORAL Take by mouth once daily. ZINC ORAL Take by mouth once daily. ascorbic acid (VITAMIN C ORAL) Take by mouth once daily. vitamin B complex (B COMPLEX 1 ORAL) Take by mouth once daily. docosahexaenoic acid/epa (FISH OIL ORAL) Take by mouth once daily. CHOLECALCIFEROL, VITAMIN D3, ORAL Take by mouth once daily. sertraline (ZOLOFT) 100 mg tablet TAKE 1 TABLET BY MOUTH EVERYDAY AT BEDTIME Patient not taking: Reported on 02/10/2025 No medication comments found. ALLERGIES No Known Allergies Objective PHYSICAL EXAM: General: alert and oriented. Pertinent negatives noted - not distressed. Skin: normal color, no rash or lesions. HEENT: EOM intact, pupils equal round and pupils reactive to light. Cardiovascular: regular rate and rhythm, normal S1 and S2, no rub, murmurs, or gallop. Respiratory: normal breath sounds, no wheezes or crackles. No chest wall deformity or tenderness. Abdomen: Pertinent negatives noted - not distended. Extremities: no deformity, no edema or tenderness, no joint swelling or clubbing. Neurological: normal cognition and motor skills. Gait normal. No weakness or sensory deficit. PAIN ASSESSMENT: VITALS: BP 107/63 Pulse 58 Temp (Src) 97.1 (Temporal) Resp 16 Ht 5' 5 (1.65m) Wt 211 lb 10.3 oz (96.0kg) SpO2 97% BMI 35.22 kg/(m^2). Diagnostic tests reviewed for today's visit: Lab Value Units Date High Low HB 13.6 g/dL 01/20/2025 17.0 13.0 HCT 39.9 % 01/20/2025 51.0 39.0 WBC 7.92 k/uL 01/20/2025 11.00 3.70 PLT 172 k/uL 01/20/2025 400 150 NA 129 mmol/L 01/20/2025 144 136 K 3.9 mmol/L 01/20/2025 5.1 3.7 GLUC 213 mg/dL 01/20/2025 99 74 BUN 15 mg/dL 01/20/2025 24 9 CREAT 1.14 mg/dL 01/20/2025 1.22 0.73 PTSEC 11.6 sec 01/20/2025 13.0 9.7 INR 1.0 no uni* 01/20/2025 1.3 0.9 APTT No results within date range. ALT 24 U/L 01/20/2025 54 10 AST 26 U/L 01/20/2025 40 14 TBILI 1.0 mg/dL 01/20/2025 1.3 0.2 TSH No results within date range. Lab Value Units Date High Low HCGQT No results within date range. UHCG No results within date range. HCG, BODY* No results within date range. Lab Value Units Date High Low ABORHD No results within date range. ABSCREEN No results within date range. Glycohemoglobin A1C on 10-27-2024 Glucose [Mass/Vol] 192 mg/dL Normal [facility] Comment on above: Performed By: #### A1C ####[facility], HbA1c (Bld) [Mass fraction] 8.3 % Hemoglobin A1C (%) Date Value 09/13/2021 7.6 EKG and ECHO in scanned documents. Instructions Given to Patient: Instructions located in the after visit summary. Patient given verbal and written preop instructions and voices comprehension and compliance. SIGNATURE: Elisa Amin APRN.CNP PATIENT NAME: Lizzy Yee DATE: February 10, 2025 TIME:3:31 PM PAGER/CONTACT #: documented in this encounter [facility] 02-16-2025 Note HNO ID: [id number] Author: MEENAKSHI ALBERTS MD Service: General Surgery Author Type: Resident Type: Progress Notes Filed: 02/16/2025 09:34 Note Text: GENERAL SURGERY PROGRESS NOTE NAME: Lizzy Yee 02/16/2025 9:27 AM Subjective: Interval events: No acute events overnight. Pain well controlled. Objective: 02/15/25202902/16/25 0015 02/16/25 0334 02/16/25 0806 BP: (!) 102/45 100/77 102/55 Pulse: 65 64 83 Resp: Temp: 36.9 ?C (98.4 ?F) 36.9 ?C (98.4 ?F) TempSrc: Oral Oral Oral SpO2: 94% 96% 96% Weight: 95.4 kg (210 lb 5.1 oz) Height: 165.1 cm (5' 5 ) GENERAL: Well appearing. HEENT: Atraumatic, Normocephalic, full ROM PULM: Bilateral chest rise, no respiratory distress on RA CVS: Regular rate and rhythm, extremities warm and well perfused ABDOMEN: soft, non distended, appropriately tender; incision sites are clean, dry and intact without erythema or drainage CATARACT LENS GENERATOR: Alert, oriented x3, No sensory or motor deficits EXTREMITIES: No edema, rash, or new lesions Recent Labs 02/16/25 0558 WBC 10.46 HB 13.9 HCT 40.2 PLT 203 NA 135* K 5.4* CHLOR 99 CO2 21* CREAT 1.18 BUN 21 GLUC 168* P 3.1 TPROT 6.0* ALB 3.5* MG 1.6* CA 9.2 ALKPHOS 112 TBILI 0.6 AST 48* ALT 46 Assessment and Plan: Lizzy Yee is a 79 year old male, who was admitted on 02/15/2025, s/p laparoscopic cholecystectomy. Plan for discharge today if labs are within normal limits. Neuro/Pain: Continue current pain control regimen Cardio/Resp: Incentive spirometry FEN/GI:. Replete Lytes prn. Diet: heart healthy Renal: Strict I/Os. Repeat BMP to recheck K Heme/DVT PPx: ICDs, SQH BID Wound/ID: No evidence of infection; no indication for antibiotics Heme: No evidence of bleeding; no indication for transfusion Activity: Out of Bed, ambulate as able. Dispo: Home today Plan of care discussed with staff Meenakshi Alberts MD General Surgery, PGY3 Pager: [phone] [facility] 02-15-2025 Note HNO ID: [id number] Author: CLOVIS FOX AA Service: ? Author Type: Clothes Drier Repairer Type: Anesthesia Procedure Notes Filed: 02/15/2025 08:13 Note Text: ANESTHESIOLOGY PROCEDURE NOTE Airway General Information Procedure Start Time/Medication Administration: 02/15/2025 7:43 AM Procedure End Time: 02/15/2025 7:43 AM Patient location during procedure: OR Patient identity confirmed: arm band and care hourly team members Staffing Anesthesiologist: Gaby Mcnally MD CAA: Clovis Fox AA Performed by: CHAMP Indications and Patient Condition Indications for airway management: anesthesia Preoxygenated: yes anesthesia circuit Method: sleep Difficult Mask: No Airway Accessory: oral airway Final Airway Details Final airway type: endotracheal airway Final Endotracheal Airway: ETT Cuffed: yes Successful intubation technique: video laryngoscopy Devices used: intubating stylet and Syed Endotracheal tube insertion site: oral Blade size: #4 ETT size (mm): 7.5 Measured from: lips Measurement (cm): 22 Placement verified by: capnometry Cormack-Lehane Classification: grade I - full view of glottis Number of attempts at approach: 1 Airway not difficult Comments Atraumatic intubation. Dentition and lips in preanesthetic condition. SIGNATURE: ARNULFO Shin PATIENT NAME: Lizzy Yee DATE: February 15, 2025 TIME: 8:13 AM CSN: [id number] [facility] 02-10-2025 Note HNO ID: [id number] Author: JACQUELYN COLE LPN Service: ? Author Type: LICENSED NURSE Type: Progress Notes Filed: 02/10/2025 15:31 Note Text: Faxed medical release of info to Dr Godwin medical records. F#[phone] [facility] 02-10-2025 History of Present illness Narrative Faxed medical release of info to Dr Godwin medical records. F#[phone] documented in this encounter [facility] 02-10-2025 Instructions Elisa Amin APRN.NEW ACCOUNTS CLERK - 02/10/2025 1:54 PM EDT Images from the original note were not included. [facility] PATIENT PREOPERATIVE INSTRUCTIONS Jay Gonzalez MD has scheduled you for your procedure at this surgery center: [facility]: [phone] --[id number] [address]. Please check in on the 1st floor at registration desk 6. Please read below carefully for your personalized instructions. Dietary Restrictions: - No solid food after midnight. - You may have 12 ounces of clear liquids (water, clear juices such as apple juice or gatorade, carbonated beverages, clear tea, black coffee, jello) until 2 hours before scheduled arrival at facility. Medications: Unless instructed differently below, stay on all of your medications until your surgery. If you start any new medications after today's visit, please contact your surgeon. Pre-Surgery Med Instructions Medication Instructions baclofen 10 mg tablet Continue as needed amLODIPine (NORVASC) 5 mg tablet If you normally take this medication in the morning, take the morning of surgery. traMADol (ULTRAM) 50 mg tablet Continue as needed lisinopril (ZESTRIL) 30 mg tablet If you normally take this medication in the morning, take the morning of surgery. carvedilol (COREG) 6.25 mg tablet If you normally take this medication in the morning, take the morning of surgery. loratadine (CLARITIN) 10 mg tablet If you normally take this medication in the morning, take the morning of surgery. MAGNESIUM ORAL If you normally take this medication in the morning, take the morning of surgery. glipiZIDE (GLUCOTROL) 5 mg tablet Do not take the day of surgery pantoprazole DR (PROTONIX) 40 mg tablet If you normally take this medication in the morning, take the morning of surgery. hydroCHLOROthiazide (HYDRODIURIL, ESIDRIX) 25 mg tablet Do not take the day of surgery atorvastatin (LIPITOR) 80 mg tablet If you normally take this medication in the morning, take the morning of surgery. clopidogrel (PLAVIX) 75 mg tablet Per surgeon's instructions, if okay to hold per your airport operations duty manager. aspirin 81 mg cap If you normally take this medication in the morning, take the morning of surgery. As directed if needed or if normally taken in the morning. Take evening/bedtime medications the night before surgery as you normally would. If you start any new medications after today's visit, please contact the surgeon's office. If you are currently using a kwiz-icz-gncz injectable or oral medication for diabetes or weight loss such as Dulaglutide (Trulicdavid), Exenatide (Byetta, Bydureon), Liraglutide (Victoza, Saxenda), Semaglutide (Ozempic, Wegovy, Rybelsus), or Tirzepatide (Mounjaro), the medicine should be stopped at least 7 days before surgery. These medicines can cause food to remain in your stomach for a very long time and increase the risks from surgery and anesthesia. Not stopping the medication for a long enough time may result in your surgery being rescheduled. Blood Thinning Medications: - Stop NSAIDS (Ibuprofen, Advil, Aleve, Motrin, Celebrex, Mobic, etc.) 7 days before surgery, as directed by your surgeon. - Stop Plavix 5 days before surgery or as directed by physician. - Do NOT stop aspirin or other anticoagulants without consulting with your airport operations duty manager or prescribing physician. - Stop ALL herbal and dietary supplements 7 days before surgery. - You may take Tylenol (Acetaminophen) or any of your pain medications that do not contain aspirin or NSAIDS as needed. Important Reminders: - If you use CPAP/BIPAP, bring the machine with you to the surgery center. - If you are prescribed inhalers for breathing, continue using them. - Candy, mints, and tobacco products are NOT permitted the morning of surgery. - Hearing aids, dentures and glasses may be worn the morning of surgery. - NO jewelry, body piercings, makeup, hairpins or contacts are to be worn the day of surgery. If you develop symptoms such as a fever, cold, or flu, or have other changes to your health within TWO DAYS of scheduled surgery or the morning of surgery, please contact the surgery center above. Personal Belongings: -Please have photo ID and insurance cards. -If you do not have a copy of advance directives on file with us, please bring a copy with you on the day of surgery. - Leave ALL valuables and money at home or with family members. - Please bring high-quality footwear, such as sneakers, to the hospital for ambulating post-surgery. For Outpatient Procedures: - YOU MUST HAVE A RESPONSIBLE CNC GRINDER TAKE YOU HOME. A BRINE ROOM LABORER OR BOX LOADER CANNOT BE MADE A RESPONSIBLE CNC GRINDER. - We recommend that a responsible person stays with you overnight to take care of you. - You cannot stay in a hotel alone after outpatient surgery. You will not be permitted to have your surgery, if you do not have someone to take care of you. Arrival Time for Surgery: - The Surgery Center or hospital where you are having surgery will call the afternoon before surgery (or Thursday for Thursday surgery) with a scheduled arrival time. - If you have not heard by 4 pm, please contact the surgery center above. Please be aware that emergency situations arise, which may delay or change your surgical time. If this happens, we will notify you as soon as possible and regret any inconvenience. If you already have an Advance Directive, please fax a copy to [phone] or email to for it to be added to your chart. If you do not have an Advance Directive, you can find the appropriate form and more information at [email or web address]. We recommend that you complete the Advance Directive form found on the website and bring it with you the day of your surgery. It can be witnessed and scanned into your chart that day. Elisa Amin APRN.NEW ACCOUNTS CLERK documented in this encounter [facility] 02-10-2025 History and physical note Images from the original note were not included. [facility] Pre-Anesthesia Consultation Clinic HISTORY AND PHYSICAL EXAMINATION SERVICE DATE: 02/10/2025 SERVICE TIME: 1340 PRIMARY CARE PHYSICIAN: Juancarlos Cuenca DO Assessment Patient has the following medical conditions which may affect machelle-operative course: ASHD (arteriosclerotic heart disease) S/P CABG x 4 Assessment: previous cardiac stents, none current since CABG 2016. Managed and monitored by cardiology Dr. Richardson. [facility] 04/2024. Notes of non ischemic stress test from 2020. Denies any recent changes in cardiac health, CP, Shortness of Breath. Will obtain most recent EKG and ECHO from that office. Also had inpatient cardiac clearance completed 01/18/25 at [place] prior to ERCP stent placement with no contraindications. Takes plavix and ASA, has already stopped plavix per surgeons instructions (okay in the past for other procedures per patient with no complications), continue ASA prior to surgery. HLD (hyperlipidemia) Assessment: treated with statin HTN (hypertension) Assessment: stable on current medication regimen, advised to continue antihypertensives prior to surgery. Last 14 BP Last 14 Encounter BP Readings: Date: BP: 02/10/2025 107/63 02/09/2025 131/70 01/19/2025 119/77 01/17/2025 164/77 10/20/2024 143/78 10/15/2023 127/65 10/16/2022 143/66 01/27/2022 131/56 10/10/2021 137/65 10/10/2021 137/65 09/24/2021 108/70 09/13/2021 104/76 05/24/2021 94/60 05/21/2021 153/69 PAD (peripheral artery disease) Assessment: managed and monitored by vascular Dr. Robledo. Matthew. LASHELL 02/02/25. Denies any recent concerns or complications. Sleep apnea Assessment: CPAP compliant History of partial colectomy Assessment: hx of several years ago with anastomosis. stable. Denies any recent concerns or complications. Type 2 diabetes mellitus, without long-term current use of insulin (HCC) Assessment: Most recent A1c 8.3 (10/2024) reports that fasting glucose recently has been 90's to 100's. Takes daily glipizide. Within acceptable range per anesthesia guidelines and aware glucose must be below 200 morning of surgery. Aware of all pre-op instructions and will follow up A1c with PCP as soon as possible. Morbid obesity (HCC) Assessment: Current BMI 35. ANESTHESIA FINDINGS: Intubation History: No history of difficult intubation Significant Anesthesia Considerations: none Airway History: No history of difficult airway Guidry Activity Status Index: METS: Walk indoors, such as around the house (1.75 METs) Do light work around the house, such as dusting or washing dishes (2.70 METs) Take care of self; that is eating, dressing, bathing, using the toilet (2.75 METs) Walk a block or two on level ground (2.75 METs) DASI Score: 9.95 Patient denies any chest pain or undue shortness of breath with the above physical activity. Patient is limited most or all of the time (uses scooter, mobility device). Clinical Frailty Scale: 4. Apparently vulnerable STOP-Bang Score: STOP-Bang Score: (+BHUPENDRA CPAP compliant ) [id number] Score: Age: >=75 Sex: male CHF history: No Hypertension history: Yes Stroke/TIA/thromboembolism history: No Vascular disease history: Yes Diabetes history: Yes [id number] Score: 5 ARISCAT Score: Age: 51-80 Preoperative SpO2: >=96% Respiratory infection in the last month: No Preoperative anemia: No Surgical incision: upper abdominal Duration of surgery: 2-3 hrs Emergency procedure: No ARISCAT Score: 34 I - PHYSICAL EVALUATION AIRWAY Patient intubated: No. Tracheostomy tube not present Mallampati: III. TM distance: >3 FB. Neck ROM: full ROM without neurological symptoms. Mouth opening: adequate. Short neck: no. Additional comments: +Stiff neck . Thick neck: no DENTAL Dental findings: teeth intact. II - ANESTHESIA PLAN Anesthetic plan additional comments: *PACC/TCI - anesthesia choice. Beta Joselo Monitoring Plan Post Procedure Analgesic Plan Prepared for Surgery: optimally prepared for surgery. Most recent cardiology records requested from Dr. Brooks's office. CONSULTS: Patient does not require consults for optimization at this time Planned Anesthetic: anesthesia choice The Following Tests/Procedures Have Been Initiated: Orders Placed This Encounter baclofen 10 mg tablet Sig: TAKE 1 TABLET BY MOUTH EVERYDAY AT BEDTIME NEEDED FOR MUSCLE SPASMS amLODIPine (NORVASC) 5 mg tablet Sig: Take 1 tablet by mouth once daily. traMADol (ULTRAM) 50 mg tablet Sig: take 1 tablet by mouth at bedtime for 30 days lisinopril (ZESTRIL) 30 mg tablet Si mg. carvedilol (COREG) 6.25 mg tablet Sig: TAKE 1 TABLET BY MOUTH WITH BREAKFAST AND EVENING MEAL REASON FOR VISIT: Lizzy Yee is a 79 year old male who is scheduled for Procedure(s) with comments: LAPAROSCOPIC CHOLECYSTECTOMY WITH GRAMS (N/A) - poss grams at the request of Dr. Jay Gonzalez for consultation. My final recommendation will be communicated back to the requesting physician by way of shared medical record or letter. Subjective The patient has the following: COVID-19 Immunization Status This patient has no relevant Health Maintenance data. CHIEF COMPLAINT: I am having surgery HPI: 79 year old male with diagnosis of Choledocholithiasis scheduled for LAPAROSCOPIC CHOLECYSTECTOMY WITH GRAMS. Denies any current acute abd pain, N/V. REVIEW OF SYSTEMS: General: No weight loss, malaise or fevers. Neurological: No history of TIA's, stroke, CATARACT LENS GENERATOR tumor, impaired sensorium, hemiplegia, paraplegia or quadraplegia. No neurological symptoms or problems. Respiratory: Positive for: obstructive sleep apnea and CPAP/BiPAP compliant. Negative for: asthma, COPD, home oxygen and pneumonia within 6 weeks. Cardiovascular: Positive for: anticoagulation therapy, CAD, hyperlipidemia, hypertension and PVD Negative for: chest pain and CHF. GI: See HPI. Positive for: GERD : No history of dysuria, frequency or incontinence, stones or chronic kidney disease. No difficulty urinating, nocturia > 1 time per night or hematuria. Endocrine: Positive for: diabetes mellitus. Patient's diabetes mellitus is controlled by oral agents. Hematology: Positive for: chronic anti-coagulation/platelet meds. Patient is on anti-coagulation/platelet medication(s): Plavix and Aspirin. Oncology: +hx of colon polyps, BCC Psych: No history of psychiatric symptoms or problems. Musculoskeletal: Positive for: back pain. Skin: Negative for lesions, rash and itching. PAST MEDICAL HISTORY Diagnosis Date ASHD (arteriosclerotic heart disease) BPH with obstruction/lower urinary tract symptoms Gastroesophageal reflux disease without esophagitis Generalized anxiety disorder History of colonic polyps HTN (hypertension) Mixed hyperlipidemia Morbid obesity (HCC) Sleep apnea Ventral hernia PAST SURGICAL HISTORY Procedure Laterality Date CABG (4) VEIN GRAFTS & ARTERIAL GRAFT(S) 2017 COLONOSCOPY CYSTOSCOPY 2016 LAPAROSCOPIC HEMICOLECTOMY 2017 villoglandular polyp PAST SURGICAL HISTORY OF Right rt hemicolectomy PAST SURGICAL HISTORY OF Right total knee arthroplasty REPAIR INCISIONAL HERNIA,REDUCIBLE 2012 REVISE MEDIAN N/CARPAL TUNNEL SURG TOTAL HIP REPLACEMENT 2008 TRANSURETHRAL ELEC-SURG PROSTATECTOM 2016 TRANSURETHRAL ELEC-SURG PROSTATECTOM VASECTOMY VASECTOMY FAMILY HISTORY Problem Relation Age of Onset Hypertension Mother Heart disease Mother Hypertension Father Anesthesia Problems No Family History Social History Tobacco Use Smoking status: Former Types: Cigars Quit date: 1994 Years since quittin.5 Smokeless tobacco: Never Tobacco comments: Quit 15+ years Substance Use Topics Alcohol use: Not Currently Drug use: Never Prior to Admission medications as of 02/10/25 1348 Medication Sig Last Dose Taking baclofen 10 mg tablet TAKE 1 TABLET BY MOUTH EVERYDAY AT BEDTIME NEEDED FOR MUSCLE SPASMS Yes amLODIPine (NORVASC) 5 mg tablet Take 1 tablet by mouth once daily. Yes traMADol (ULTRAM) 50 mg tablet take 1 tablet by mouth at bedtime for 30 days Yes lisinopril (ZESTRIL) 30 mg tablet 30 mg. Yes carvedilol (COREG) 6.25 mg tablet TAKE 1 TABLET BY MOUTH WITH BREAKFAST AND EVENING MEAL Yes loratadine (CLARITIN) 10 mg tablet Take 10 mg by mouth. Yes MAGNESIUM ORAL Take by mouth once daily. Yes CPAP daily at bedtime. Yes glipiZIDE (GLUCOTROL) 5 mg tablet once daily. Yes pantoprazole DR (PROTONIX) 40 mg tablet Take 40 mg by mouth once daily. Yes hydroCHLOROthiazide (HYDRODIURIL, ESIDRIX) 25 mg tablet Take 25 mg by mouth once daily. Yes atorvastatin (LIPITOR) 80 mg tablet Take 80 mg by mouth once daily. Yes clopidogrel (PLAVIX) 75 mg tablet Take 75 mg by mouth once daily. Yes aspirin 81 mg cap Take by mouth once daily. Yes tramadol HCl (TRAMADOL ORAL) Take 50 mg by mouth. carvedilol (COREG) 12.5 mg tablet 1 tablet by ORAL/FEEDING TUBE route q 12 HR. Patient taking differently: Take 12.5 mg by mouth q 12 HR. 1/2 tab twice a day tamsulosin (FLOMAX) 0.4 mg Take 1 capsule by mouth once daily. MULTI-VITAMIN ORAL Take by mouth once daily. ZINC ORAL Take by mouth once daily. ascorbic acid (VITAMIN C ORAL) Take by mouth once daily. vitamin B complex (B COMPLEX 1 ORAL) Take by mouth once daily. docosahexaenoic acid/epa (FISH OIL ORAL) Take by mouth once daily. CHOLECALCIFEROL, VITAMIN D3, ORAL Take by mouth once daily. sertraline (ZOLOFT) 100 mg tablet TAKE 1 TABLET BY MOUTH EVERYDAY AT BEDTIME Patient not taking: Reported on 02/10/2025 No medication comments found. ALLERGIES No Known Allergies Objective PHYSICAL EXAM: General: alert and oriented. Pertinent negatives noted - not distressed. Skin: normal color, no rash or lesions. HEENT: EOM intact, pupils equal round and pupils reactive to light. Cardiovascular: regular rate and rhythm, normal S1 and S2, no rub, murmurs, or gallop. Respiratory: normal breath sounds, no wheezes or crackles. No chest wall deformity or tenderness. Abdomen: Pertinent negatives noted - not distended. Extremities: no deformity, no edema or tenderness, no joint swelling or clubbing. Neurological: normal cognition and motor skills. Gait normal. No weakness or sensory deficit. PAIN ASSESSMENT: VITALS: BP 107/63 Pulse 58 Temp (Src) 97.1 (Temporal) Resp 16 Ht 5' 5 (1.65m) Wt 211 lb 10.3 oz (96.0kg) SpO2 97% BMI 35.22 kg/(m^2). Diagnostic tests reviewed for today's visit: Lab Value Units Date High Low HB 13.6 g/dL 01/20/2025 17.0 13.0 HCT 39.9 % 01/20/2025 51.0 39.0 WBC 7.92 k/uL 01/20/2025 11.00 3.70 PLT 172 k/uL 01/20/2025 400 150 NA 129 mmol/L 01/20/2025 144 136 K 3.9 mmol/L 01/20/2025 5.1 3.7 GLUC 213 mg/dL 01/20/2025 99 74 BUN 15 mg/dL 01/20/2025 24 9 CREAT 1.14 mg/dL 01/20/2025 1.22 0.73 PTSEC 11.6 sec 01/20/2025 13.0 9.7 INR 1.0 no uni* 01/20/2025 1.3 0.9 APTT No results within date range. ALT 24 U/L 01/20/2025 54 10 AST 26 U/L 01/20/2025 40 14 TBILI 1.0 mg/dL 01/20/2025 1.3 0.2 TSH No results within date range. Lab Value Units Date High Low HCGQT No results within date range. UHCG No results within date range. HCG, BODY* No results within date range. Lab Value Units Date High Low ABORHD No results within date range. ABSCREEN No results within date range. Glycohemoglobin A1C on 10-27-2024 Glucose [Mass/Vol] 192 mg/dL Normal [facility] [place] Comment on above: Performed By: #### A1C ####[facility], HbA1c (Bld) [Mass fraction] 8.3 % Hemoglobin A1C (%) Date Value 09/13/2021 7.6 No results found for this or any previous visit (from the past 8760 hours). No results found for this or any previous visit (from the past 28138 hours). Instructions Given to Patient: Instructions located in the after visit summary. Patient given verbal and written preop instructions and voices comprehension and compliance. SIGNATURE: Elisa Amin APRN.CNP PATIENT NAME: Lizzy Yee DATE: February 10, 2025 TIME:3:31 PM PAGER/CONTACT #: [facility] 02-10-2025 History and physical note Images from the original note were not included. [facility] HISTORY AND PHYSICAL EXAMINATION SERVICE DATE: 02/10/2025 SERVICE TIME: 1340 PRIMARY CARE PHYSICIAN: Juancarlos Cuenca DO Assessment Patient has the following medical conditions which may affect machelle-operative course: ASHD (arteriosclerotic heart disease) S/P CABG x 4 Assessment: previous cardiac stents, none current since CABG 2016. Managed and monitored by cardiology Dr. Richardson. LASHELL 04/2024. Notes of non ischemic stress test from 2020. Denies any recent changes in cardiac health, CP, Shortness of Breath. Will obtain most recent EKG and ECHO from that office. Also had inpatient cardiac clearance completed 01/18/25 at [place] prior to ERCP stent placement with no contraindications. Takes plavix and ASA, has already stopped plavix per surgeons instructions (okay in the past for other procedures per patient with no complications), continue ASA prior to surgery. HLD (hyperlipidemia) Assessment: treated with statin HTN (hypertension) Assessment: stable on current medication regimen, advised to continue antihypertensives prior to surgery. Last 14 BP Last 14 Encounter BP Readings: Date: BP: 02/10/2025 107/63 02/09/2025 131/70 01/19/2025 119/77 01/17/2025 164/77 10/20/2024 143/78 10/15/2023 127/65 10/16/2022 143/66 01/27/2022 131/56 10/10/2021 137/65 10/10/2021 137/65 09/24/2021 108/70 09/13/2021 104/76 05/24/2021 94/60 05/21/2021 153/69 PAD (peripheral artery disease) Assessment: managed and monitored by vascular Dr. Robledo. Matthew. LASHELL 02/02/25. Denies any recent concerns or complications. Sleep apnea Assessment: CPAP compliant History of partial colectomy Assessment: hx of several years ago with anastomosis. stable. Denies any recent concerns or complications. Type 2 diabetes mellitus, without long-term current use of insulin (HCC) Assessment: Most recent A1c 8.3 (10/2024) reports that fasting glucose recently has been 90's to 100's. Takes daily glipizide. Within acceptable range per anesthesia guidelines and aware glucose must be below 200 morning of surgery. Aware of all pre-op instructions and will follow up A1c with PCP as soon as possible. Morbid obesity (HCC) Assessment: Current BMI 35. ANESTHESIA FINDINGS: Intubation History: No history of difficult intubation Significant Anesthesia Considerations: none Airway History: No history of difficult airway Guidry Activity Status Index: METS: Walk indoors, such as around the house (1.75 METs) Do light work around the house, such as dusting or washing dishes (2.70 METs) Take care of self; that is eating, dressing, bathing, using the toilet (2.75 METs) Walk a block or two on level ground (2.75 METs) DASI Score: 9.95 Patient denies any chest pain or undue shortness of breath with the above physical activity. Patient is limited most or all of the time (uses scooter, mobility device). Clinical Frailty Scale: 4. Apparently vulnerable STOP-Bang Score: STOP-Bang Score: (+BHUPENDRA CPAP compliant ) [id number] Score: Age: >=75 Sex: male CHF history: No Hypertension history: Yes Stroke/TIA/thromboembolism history: No Vascular disease history: Yes Diabetes history: Yes [id number] Score: 5 ARISCAT Score: Age: 51-80 Preoperative SpO2: >=96% Respiratory infection in the last month: No Preoperative anemia: No Surgical incision: upper abdominal Duration of surgery: 2-3 hrs Emergency procedure: No ARISCAT Score: 34 I - PHYSICAL EVALUATION AIRWAY Patient intubated: No. Tracheostomy tube not present Mallampati: III. TM distance: >3 FB. Neck ROM: full ROM without neurological symptoms. Mouth opening: adequate. Short neck: no. Additional comments: +Stiff neck . Thick neck: no DENTAL Dental findings: teeth intact. II - ANESTHESIA PLAN Anesthetic plan additional comments: *PACC/TCI - anesthesia choice. Beta Joselo Monitoring Plan Post Procedure Analgesic Plan Prepared for Surgery: optimally prepared for surgery. Most recent cardiology records requested from Dr. Brooks's office. CONSULTS: Patient does not require consults for optimization at this time Planned Anesthetic: anesthesia choice The Following Tests/Procedures Have Been Initiated: Orders Placed This Encounter baclofen 10 mg tablet Sig: TAKE 1 TABLET BY MOUTH EVERYDAY AT BEDTIME NEEDED FOR MUSCLE SPASMS amLODIPine (NORVASC) 5 mg tablet Sig: Take 1 tablet by mouth once daily. traMADol (ULTRAM) 50 mg tablet Sig: take 1 tablet by mouth at bedtime for 30 days lisinopril (ZESTRIL) 30 mg tablet Si mg. carvedilol (COREG) 6.25 mg tablet Sig: TAKE 1 TABLET BY MOUTH WITH BREAKFAST AND EVENING MEAL REASON FOR VISIT: Lizzy Yee is a 79 year old male who is scheduled for Procedure(s) with comments: LAPAROSCOPIC CHOLECYSTECTOMY WITH GRAMS (N/A) - poss grams at the request of Dr. Jay Gonzalez for consultation. My final recommendation will be communicated back to the requesting physician by way of shared medical record or letter. Subjective The patient has the following: COVID-19 Immunization Status This patient has no relevant Health Maintenance data. CHIEF COMPLAINT: I am having surgery HPI: 79 year old male with diagnosis of Choledocholithiasis scheduled for LAPAROSCOPIC CHOLECYSTECTOMY WITH GRAMS. Denies any current acute abd pain, N/V. REVIEW OF SYSTEMS: General: No weight loss, malaise or fevers. Neurological: No history of TIA's, stroke, CATARACT LENS GENERATOR tumor, impaired sensorium, hemiplegia, paraplegia or quadraplegia. No neurological symptoms or problems. Respiratory: Positive for: obstructive sleep apnea and CPAP/BiPAP compliant. Negative for: asthma, COPD, home oxygen and pneumonia within 6 weeks. Cardiovascular: Positive for: anticoagulation therapy, CAD, hyperlipidemia, hypertension and PVD Negative for: chest pain and CHF. GI: See HPI. Positive for: GERD : No history of dysuria, frequency or incontinence, stones or chronic kidney disease. No difficulty urinating, nocturia > 1 time per night or hematuria. Endocrine: Positive for: diabetes mellitus. Patient's diabetes mellitus is controlled by oral agents. Hematology: Positive for: chronic anti-coagulation/platelet meds. Patient is on anti-coagulation/platelet medication(s): Plavix and Aspirin. Oncology: +hx of colon polyps, BCC Psych: No history of psychiatric symptoms or problems. Musculoskeletal: Positive for: back pain. Skin: Negative for lesions, rash and itching. PAST MEDICAL HISTORY Diagnosis Date ASHD (arteriosclerotic heart disease) BPH with obstruction/lower urinary tract symptoms Gastroesophageal reflux disease without esophagitis Generalized anxiety disorder History of colonic polyps HTN (hypertension) Mixed hyperlipidemia Morbid obesity (HCC) Sleep apnea Ventral hernia PAST SURGICAL HISTORY Procedure Laterality Date CABG (4) VEIN GRAFTS & ARTERIAL GRAFT(S) 2017 COLONOSCOPY CYSTOSCOPY 2016 LAPAROSCOPIC HEMICOLECTOMY 2017 villoglandular polyp PAST SURGICAL HISTORY OF Right rt hemicolectomy PAST SURGICAL HISTORY OF Right total knee arthroplasty REPAIR INCISIONAL HERNIA,REDUCIBLE 2013 REVISE MEDIAN N/CARPAL TUNNEL SURG TOTAL HIP REPLACEMENT 2007 TRANSURETHRAL ELEC-SURG PROSTATECTOM 2016 TRANSURETHRAL ELEC-SURG PROSTATECTOM VASECTOMY VASECTOMY FAMILY HISTORY Problem Relation Age of Onset Hypertension Mother Heart disease Mother Hypertension Father Anesthesia Problems No Family History Social History Tobacco Use Smoking status: Former Types: Cigars Quit date: 1994 Years since quittin.5 Smokeless tobacco: Never Tobacco comments: Quit 15+ years Substance Use Topics Alcohol use: Not Currently Drug use: Never Prior to Admission medications as of 02/10/25 1348 Medication Sig Last Dose Taking baclofen 10 mg tablet TAKE 1 TABLET BY MOUTH EVERYDAY AT BEDTIME NEEDED FOR MUSCLE SPASMS Yes amLODIPine (NORVASC) 5 mg tablet Take 1 tablet by mouth once daily. Yes traMADol (ULTRAM) 50 mg tablet take 1 tablet by mouth at bedtime for 30 days Yes lisinopril (ZESTRIL) 30 mg tablet 30 mg. Yes carvedilol (COREG) 6.25 mg tablet TAKE 1 TABLET BY MOUTH WITH BREAKFAST AND EVENING MEAL Yes loratadine (CLARITIN) 10 mg tablet Take 10 mg by mouth. Yes MAGNESIUM ORAL Take by mouth once daily. Yes CPAP daily at bedtime. Yes glipiZIDE (GLUCOTROL) 5 mg tablet once daily. Yes pantoprazole DR (PROTONIX) 40 mg tablet Take 40 mg by mouth once daily. Yes hydroCHLOROthiazide (HYDRODIURIL, ESIDRIX) 25 mg tablet Take 25 mg by mouth once daily. Yes atorvastatin (LIPITOR) 80 mg tablet Take 80 mg by mouth once daily. Yes clopidogrel (PLAVIX) 75 mg tablet Take 75 mg by mouth once daily. Yes aspirin 81 mg cap Take by mouth once daily. Yes tramadol HCl (TRAMADOL ORAL) Take 50 mg by mouth. carvedilol (COREG) 12.5 mg tablet 1 tablet by ORAL/FEEDING TUBE route q 12 HR. Patient taking differently: Take 12.5 mg by mouth q 12 HR. 1/2 tab twice a day tamsulosin (FLOMAX) 0.4 mg Take 1 capsule by mouth once daily. MULTI-VITAMIN ORAL Take by mouth once daily. ZINC ORAL Take by mouth once daily. ascorbic acid (VITAMIN C ORAL) Take by mouth once daily. vitamin B complex (B COMPLEX 1 ORAL) Take by mouth once daily. docosahexaenoic acid/epa (FISH OIL ORAL) Take by mouth once daily. CHOLECALCIFEROL, VITAMIN D3, ORAL Take by mouth once daily. sertraline (ZOLOFT) 100 mg tablet TAKE 1 TABLET BY MOUTH EVERYDAY AT BEDTIME Patient not taking: Reported on 02/10/2025 No medication comments found. ALLERGIES No Known Allergies Objective PHYSICAL EXAM: General: alert and oriented. Pertinent negatives noted - not distressed. Skin: normal color, no rash or lesions. HEENT: EOM intact, pupils equal round and pupils reactive to light. Cardiovascular: regular rate and rhythm, normal S1 and S2, no rub, murmurs, or gallop. Respiratory: normal breath sounds, no wheezes or crackles. No chest wall deformity or tenderness. Abdomen: Pertinent negatives noted - not distended. Extremities: no deformity, no edema or tenderness, no joint swelling or clubbing. Neurological: normal cognition and motor skills. Gait normal. No weakness or sensory deficit. PAIN ASSESSMENT: VITALS: BP 107/63 Pulse 58 Temp (Src) 97.1 (Temporal) Resp 16 Ht 5' 5 (1.65m) Wt 211 lb 10.3 oz (96.0kg) SpO2 97% BMI 35.22 kg/(m^2). Diagnostic tests reviewed for today's visit: Lab Value Units Date High Low HB 13.6 g/dL 01/20/2025 17.0 13.0 HCT 39.9 % 01/20/2025 51.0 39.0 WBC 7.92 k/uL 01/20/2025 11.00 3.70 PLT 172 k/uL 01/20/2025 400 150 NA 129 mmol/L 01/20/2025 144 136 K 3.9 mmol/L 01/20/2025 5.1 3.7 GLUC 213 mg/dL 01/20/2025 99 74 BUN 15 mg/dL 01/20/2025 24 9 CREAT 1.14 mg/dL 01/20/2025 1.22 0.73 PTSEC 11.6 sec 01/20/2025 13.0 9.7 INR 1.0 no uni* 01/20/2025 1.3 0.9 APTT No results within date range. ALT 24 U/L 01/20/2025 54 10 AST 26 U/L 01/20/2025 40 14 TBILI 1.0 mg/dL 01/20/2025 1.3 0.2 TSH No results within date range. Lab Value Units Date High Low HCGQT No results within date range. UHCG No results within date range. HCG, BODY* No results within date range. Lab Value Units Date High Low ABORHD No results within date range. ABSCREEN No results within date range. Glycohemoglobin A1C on 10-27-2024 Glucose [Mass/Vol] 192 mg/dL Normal [facility] Comment on above: Performed By: #### A1C ####[facility], HbA1c (Bld) [Mass fraction] 8.3 % Hemoglobin A1C (%) Date Value 09/13/2021 7.6 No results found for this or any previous visit (from the past 8760 hours). No results found for this or any previous visit (from the past 32924 hours). Instructions Given to Patient: Instructions located in the after visit summary. Patient given verbal and written preop instructions and voices comprehension and compliance. SIGNATURE: Elisa Amin APRN.CNP PATIENT NAME: Lizzy Yee DATE: February 10, 2025 TIME:3:31 PM PAGER/CONTACT #: documented in this encounter [facility] 02-10-2025 Note Education ([facility]) ------ LIZZY YEE ([id number]) 1945 [facility] Date Time Provider Department 02/10/25 EFRAIN ZAMARRIPA [facility] Reason for Visit: Education Of Patient/family [904] During your visit today, we recorded the following information about you: Allergies As of Date: 02/10/2025 (No Known Allergies) Date Reviewed: 02/09/2025 Reviewed by: Sarah Osman [facility] - Fully Assessed Prescriptions as of 02/10/2025 - tramadol HCl (TRAMADOL ORAL) Take 50 [...] TABLET BY MOUTH EVERYDAY AT BEDTIME - pantoprazole DR (PROTONIX) 40 mg tablet [...] mg cap Take by mouth once daily. Encounter Status:Closed by EFRAIN ZAMARRIPA on 02/10/25 [facility] 02-09-2025 History of Present illness Narrative [facility] - Follow Up Visit Assessment/Plan: Lizzy Yee is an 79 year old male with a past medical history of CAD s/p 4v CABG (2016), PAD w/ R Popliteal Occlusion s/p Angioplasty, BHUPENDRA, HTN, HLD, Anxiety, Obesity, ventral hernia repair w/ mesh (Dr Gonzalez; 2021), Colonic Polyposis Syndrome s/p Subtotal colectomy (Dr Medina; 2021) who was transferred from the [facility] 01/18/2025 to [facility] for concerns of choledocholithiasis. He underwent an ERCP with Dr. El on 01/19/2025 that resulted in complete removal of the obstructing stone. He was discharged home 01/20/2025 and presents today for follow up and requires a laparoscopic cholecystectomy. The risks, benefits, and alternatives to laparoscopic cholecystectomy were discussed with the patient including the risk of bleeding, infection, damage to surrounding structures including the liver, bowel, and common bile duct, retained stone, and bile leak. All patient questions were answered to their satisfaction. Written consent was obtained and can be found under the Epic Consent tab. - Consented for lap maria dolores, scheduled for 02/15 - Hold Plavix now, ok to continue baby aspirin - Hold HCTZ and Glipizide day of surgery - Will reach out to Dr. El to discuss timing of Plavix. Subjective: Kurt reports that he is feeling well. No abdominal pain at this point. No issues with p.o. intake or bowel function. We discussed the risks of recurrent choledocholithiasis if we do not proceed with a laparoscopic cholecystectomy. We talked about the operation and anticipated recovery as well as the slightly higher risk of converting to open given his extensive surgical history. Objective: AAO x 3, NAD Respirations on room air Abdomen soft, nondistended, nontender. Well-healed midline laparotomy scar. No tenderness in the right upper quadrant. Jay Gonzalez MD 02/09/25, 12:53 PM General Surgery [facility] Medical Decision Making: Problems: Low: Acute, uncomplicated illness or injury Data: Unique test result(s) reviewed: 2 Independent interpretation of test from other physician/QHCP Discussed management or test w/ external physician/QHCP/source Risk: Moderate: Decision on minor surgery w/ risk factors Medical Decision Making Level: 4 - Moderate documented in this encounter [facility] 02-09-2025 Note HNO ID: [id number] Author: JAY GONZALEZ MD Service: ? Author Type: Physician Type: Progress Notes Filed: 02/09/2025 12:55 Note Text: [facility] - Follow Up Visit Assessment/Plan: Lizzy Yee is an 79 year old male with a past medical history of CAD s/p 4v CABG (2016), PAD w/ R Popliteal Occlusion s/p Angioplasty, BHUPENDRA, HTN, HLD, Anxiety, Obesity, ventral hernia repair w/ mesh (Dr Gonzalez; 2021), Colonic Polyposis Syndrome s/p Subtotal colectomy (Dr Medina; 2021) who was transferred from the [facility] 01/18/2025 to [facility] for concerns of choledocholithiasis. He underwent an ERCP with Dr. El on 01/19/2025 that resulted in complete removal of the obstructing stone. He was discharged home 01/20/2025 and presents today for follow up and requires a laparoscopic cholecystectomy. The risks, benefits, and alternatives to laparoscopic cholecystectomy were discussed with the patient including the risk of bleeding, infection, damage to surrounding structures including the liver, bowel, and common bile duct, retained stone, and bile leak. All patient questions were answered to their satisfaction. Written consent was obtained and can be found under the Epic Consent tab. - Consented for lap maria dolores, scheduled for 02/15 - Hold Plavix now, ok to continue baby aspirin - Hold HCTZ and Glipizide day of surgery - Will reach out to Dr. El to discuss timing of Plavix. Subjective: Kurt reports that he is feeling well. No abdominal pain at this point. No issues with p.o. intake or bowel function. We discussed the risks of recurrent choledocholithiasis if we do not proceed with a laparoscopic cholecystectomy. We talked about the operation and anticipated recovery as well as the slightly higher risk of converting to open given his extensive surgical history. Objective: AAO x 3, NAD Respirations on room air Abdomen soft, nondistended, nontender. Well-healed midline laparotomy scar. No tenderness in the right upper quadrant. Jay Gonzalez MD 02/09/25, 12:53 PM General Surgery [facility] Medical Decision Making: Problems: Low: Acute, uncomplicated illness or injury Data: Unique test result(s) reviewed: 2 Independent interpretation of test from other physician/QHCP Discussed management or test w/ external physician/QHCP/source Risk: Moderate: Decision on minor surgery w/ risk factors Medical Decision Making Level: 4 - Moderate [facility] 02-09-2025 Note HNO ID: [id number] Author: EFRAIN ZAMARRIPA, RN Service: ? Author Type: Registered Nurse Type: Progress Notes Filed: 02/10/2025 09:14 Note Text: FMLA/STD needed: No AMBULATORY PATIENT EDUCATION NOTE PRE-OP TEACHING PROCEDURE: laparoscopic cholecystectomy READINESS TO LEARN COGNITIVE ABILITY: Alert and oriented MOTIVATION TO LEARN: Interested FAMILY SUPPORT: High - Very involved in pt care INSTRUCTION PROVIDED TO: Patient and Spouse PATIENT LEARNS BEST BY: Multiple Methods FACTORS AFFECTING LEARNING: None PHYSICAL LIMITATIONS AFFECTING LEARNING: None LEARNING RESPONSE DIAGNOSIS: choledocholithiasis METHOD OF INSTRUCTION: Individual instruction Written instruction - handouts Verbal instruction PATIENT / FAMILY RESPONSE: Verbalizes understanding of: PAIN MANAGEMENT-Effective strategies to manage pain in addition to pain medication PHYSICAL RESTRICTIONS-Physical restrictions and recommendations after discharge from the hospital POST-OPERATIVE INSTRUCTIONS-Correct actions to take to reduce postoperative complications PRE-OPERATIVE INSTRUCTIONS-Correct action to take to follow pre-operative instructions SYMPTOM MANAGEMENT-Correct actions to take to manage symptoms associated with his/her disease/illness WORSENING CONDITION-Signs and symptoms of a worsening condition that warrant a call to the physician WOUND CARE-Correct procedure to perform wound care DIET- Post op diet OTHER PRE-OP INSTRUCTIONS: FOLLOW-UP PLAN: Complete - No need for follow-up Patient instructed to call with any further issues Contact information given. SUPPLEMENTAL MATERIAL: - Pre Op Instructions Handout - PACC Brochure - Lap maria dolores Overview Handout - Post Op Instructions Handout - Post op diet hand out REFERRAL (RECOMMENDATION): None Electronically Signed By: Efrain Zamarripa RN In Department: GENERAL SURGERY [facility] 02-09-2025 History of Present illness Narrative FMLA/STD needed: No AMBULATORY PATIENT EDUCATION NOTE PRE-OP TEACHING PROCEDURE: laparoscopic cholecystectomy READINESS TO LEARN COGNITIVE ABILITY: Alert and oriented MOTIVATION TO LEARN: Interested FAMILY SUPPORT: High - Very involved in pt care INSTRUCTION PROVIDED TO: Patient and Spouse PATIENT LEARNS BEST BY: Multiple Methods FACTORS AFFECTING LEARNING: None PHYSICAL LIMITATIONS AFFECTING LEARNING: None LEARNING RESPONSE DIAGNOSIS: choledocholithiasis METHOD OF INSTRUCTION: Individual instruction Written instruction - handouts Verbal instruction PATIENT / FAMILY RESPONSE: Verbalizes understanding of: PAIN MANAGEMENT-Effective strategies to manage pain in addition to pain medication PHYSICAL RESTRICTIONS-Physical restrictions and recommendations after discharge from the hospital POST-OPERATIVE INSTRUCTIONS-Correct actions to take to reduce postoperative complications PRE-OPERATIVE INSTRUCTIONS-Correct action to take to follow pre-operative instructions SYMPTOM MANAGEMENT-Correct actions to take to manage symptoms associated with his/her disease/illness WORSENING CONDITION-Signs and symptoms of a worsening condition that warrant a call to the physician WOUND CARE-Correct procedure to perform wound care DIET- Post op diet OTHER PRE-OP INSTRUCTIONS: FOLLOW-UP PLAN: Complete - No need for follow-up Patient instructed to call with any further issues Contact information given. SUPPLEMENTAL MATERIAL: - Pre Op Instructions Handout - PACC Brochure - Lap maria dolores Overview Handout - Post Op Instructions Handout - Post op diet hand out REFERRAL (RECOMMENDATION): None Electronically Signed By: Efrain Zamarripa RN In Department: GENERAL SURGERY documented in this encounter [facility] 01-30-2025 Telephone encounter Note Spoke with patient's , Paulette, scheduled ERCP W/STENT REMOVAL 02/24/2025 at [facility]. Grisel Regalado Adm Asst II [facility] 01-30-2025 Miscellaneous Notes Spoke with patient's , Paulette, scheduled ERCP W/STENT REMOVAL 02/24/2025 at [facility]. Grisel Regalado Adm Asst II Grisel, please schedule ERCP as indicated below. Thank you, Nirmala Carmona RN ----- Message from Deangelo El MD sent at 01/19/2025 12:14 PM EDT ----- Inpatient ERCP. 8 stones removed from CBD. SEMs placed. Still has GB-no stones? On Plavix. Repeat ERCP in 5 weeks for stent removal. Stop Plavix 3 days prior to procedure. Deangelo El MD documented in this encounter [facility] 01-24-2025 Telephone encounter Note Grisel, please schedule ERCP as indicated below. Thank you, Nirmala Carmona RN [facility] 01-24-2025 Telephone encounter Note ----- Message from Deangelo El MD sent at 01/19/2025 12:14 PM EDT ----- Inpatient ERCP. 8 stones removed from CBD. SEMs placed. Still has GB-no stones? On Plavix. Repeat ERCP in 5 weeks for stent removal. Stop Plavix 3 days prior to procedure. Deangelo El MD [facility] 01-19-2025 Note HNO ID: [id number] Author: JEMIMA HENDERSON MD Service: General Surgery Author Type: Resident Type: Plan of Care Filed: 01/19/2025 18:50 Note Text: Reviewed ERCP , Discussed with plan for follow up outpatient to discuss possible interval Cholecystectomy General Surgery will sign off Jemima Henderson MD [facility] 01-19-2025 Note HNO ID: [id number] Author: DWAYNE PERSON LSW Service: Care Management Author Type: Conveyor Installer Type: Care Mgt Initial Assessment Filed: 01/19/2025 14:40 Note Text: CARE MANAGEMENT: ASSESSMENT AND DISCHARGE PLAN SERVICE DATE: January 19, 2025 SERVICE TIME: 1436 PCP: Juancarlos Cuenca DO Primary Contact: Extended Emergency Contact Information Primary Emergency Contact: Paulette Yee (HCPOA Primary) Mobile Relation: Spouse Secondary Emergency Contact: Maribeth Lee (HCPOA 1st Alternate) Mobile Relation: Daughter Admission Status: Inpatient Insurance Provider: MEDICARE A AND B Discharge Planning requested by: Per Department Practice Potential Transition Plans Advance Directives Current Advance Directive: Health Care Power of Milk Receiver In Chart: Yes Up To Date and Valid: Yes yes HCPOA [place] on file within [employer] and verified to be current as of date/time of this note Legal Next of Kin Hierarchy per [place] Revised Code: Healthcare Power of Milk Receiver Paulette Legal Spouse Majority of Adult Children (consensus if possible) Parents Majority of Adult Siblings (consensus if possible) Nearest Blood Relative HUSSEIN Garcia January 19, 2025 Current Living Arrangements and Support Lives with: Spouse/significant other Type of Residence: Private Residence (House) Support: Children, Family members, Spouse/significant other How do you manage to accomplish the following: Independent: Ambulation, Bathe/Shower, Dress, Meals/Meal Prep, Going to the bathroom, Medication Management, Transportation to appointments/community Current Services/Equipment Current Post-Acute Service(s): DME Current DME Type: Quad cane Discharge Planning Patient Goal(s): Be able to go home [place] of Choice Explained: [place] of Choice Given: No Reason Not Given: No placements necessary Are you interested in bedside delivery of your medications? No Discharge Planning Participant(s): Patient, Spouse/significant other, Family Patient/Family Comments: Caregiver Assessment: Caregiver is ready, willing and able to meet the patient's needs as recommended by the inter-professional team: No Caregiver needed Transport at Discharge: Transportation Arrangements: Car Needs Prior to Discharge: Needs Prior to Discharge: Ready for Discharge Post-Acute Discharge Plan: Met with pt and family bedside. Pt came in due to abdominal pain. He went to [facility] and then transferred to [facility] due to previous surgeries. Pt lives at home with his and is fairly indep. Plan is home tomorrow. Family to transport. There are no anticipated home going needs. Cm to follow. SIGNATURE: HUSSEIN Garcia PATIENT NAME: Lizzy Yee DATE: January 19, 2025 TIME: 2:36 PM [facility] 01-19-2025 Note HNO ID: [id number] Author: KWADWO TORREZ APRN.TROY Service: Gastroenterology Author Type: Nurse Practitioner Type: Plan of Care Filed: 01/19/2025 16:46 Note Text: Brief GI POC: S/p ERCP 01/[address] El - The major papilla appeared normal. - Biliary papillary stenosis, benign. - The entire main bile duct was moderately dilated, with a stone causing an obstruction. - Choledocholithiasis was found. Complete removal was accomplished by biliary sphincterotomy and balloon extraction. - A biliary sphincterotomy was performed. - The biliary tree was swept. - One covered metal stent was placed into the common bile duct. Recommendation: - [facility]. -Okay for CLD - Avoid aspirin and nonsteroidal anti-inflammatory medicines for 1 week. - Continue present medications. - Observe patient's clinical course following today's ERCP with therapeutic intervention. - Plavix can be restarted in 5 days. -repeat CBC, CMP in AM -Repeat ERCP in 5 weeks to remove stent. (Office to arrange as OP) -Will follow along * updated via telephone, all questions answered, including no recommendation for lap maria dolores at this time, only wants Dr. Gonzalez if something is warranted in future, updated surgical nurse via secure chat, hoping for discharge tomorrow morning. Kwadwo Torrez CNP Gastroenterology [phone] [facility] 01-19-2025 Note HNO ID: [id number] Author: LAURA MACDONALD APRN.COLUMNIST Service: ? Author Type: Nurse Airplane Designer Type: Anesthesia Procedure Notes Filed: 01/19/2025 11:43 Note Text: ANESTHESIOLOGY PROCEDURE NOTE Airway General Information Procedure Start Time/Medication Administration: 01/19/2025 11:31 AM Procedure End Time: 01/19/2025 11:31 AM Patient location during procedure: OR Timeout Performed Pre-procedure: timeout performed Consent Obtained: Yes Patient identity confirmed: arm band and care hourly team members Staffing Anesthesiologist: William Orr MD COLUMNIST: Laura Macdonald APRN.COLUMNIST Performed by: OSEAS Indications and Patient Condition Indications for airway management: anesthesia and airway protection Preoxygenated: yes anesthesia circuit Patient position: sniffing Method: asleep Cricoid Pressure: No Manual In-Line Stabilization: No Difficult Mask: No Airway Accessory: oral airway Final Airway Details Final airway type: endotracheal airway Final Endotracheal Airway: ETT Cuffed: yes Successful intubation technique: video laryngoscopy Devices used: intubating stylet and Syed Endotracheal tube insertion site: oral Blade: George Blade size: #4 ETT size (mm): 7.5 Measured from: lips Measurement (cm): 21 Placement verified by: chest auscultation and capnometry Cormack-Lehane Classification: grade IIa - partial view of glottis Number of attempts at approach: 1 Failed airway: no Unrecognized esophageal intubation: no Airway not difficult Comments Lips, teeth and oral cavity in preanesthetic condition SIGNATURE: Laura Macdonald APRN.COLUMNIST PATIENT NAME: Lizzy Yee DATE: January 19, 2025 TIME: 11:42 AM CSN: [id number] [facility] 01-19-2025 Note HNO ID: [id number] Author: YANI EL MD Service: Hospital Medicine Author Type: Physician Type: Progress Notes Filed: 01/19/2025 11:42 Note Text: INPATIENT PROGRESS NOTE SERVICE DATE: 01/19/2025 SERVICE TIME: 11:41 AM PRIMARY SERVICE: Hospital Medicine Subjective patient was seen and examined denies any abdominal pain no nausea or vomiting no chest pain or shortness of breath no lightheadedness Current Facility-Administered Medications Medication Dose Route Frequency atorvastatin 80 mg tab(s) (LIPITOR) 80 mg ORAL DAILY carvedilol 6.25 mg tab(s) (COREG) 6.25 mg ORAL q [address] 40 mg tab(s) (PROTONIX) 40 mg ORAL DAILY sertraline 100 mg tab(s) (ZOLOFT) 100 mg ORAL AT BEDTIME cetirizine 10 mg tab(s) (ZYRTEC) 10 mg ORAL DAILY NaCl 0.9% iv flush bag 20 mL INTRAVENOUS PRN acetaminophen 650 mg tab(s) (TYLENOL) 650 mg ORAL q 6 H PRN ondansetron 4 mg tab(s) (ZOFRAN) 4 mg ORAL q 6 H PRN Or ondansetron (PF) 4 mg injection (ZOFRAN) 4 mg INTRAVENOUS q 6 H PRN iv contrast (radiology procedure) INTRAVENOUS DIRECTED PRN iv contrast (radiology procedure) INTRAVENOUS DIRECTED PRN indomethacin 100 mg suppository (INDOCIN) 100 mg RECTAL As Directed Facility-Administered Medications Ordered in Other Encounters Medication Dose Route Frequency esmolol injection (BREVIBLOC) INTRAVENOUS PRN rocuronium injection INTRAVENOUS PRN lidocaine (PF) 20 mg/mL (2 %) injection (XYLOCAINE) INTRAVENOUS PRN propofol infusion (DIPRIVAN) INTRAVENOUS PRN lactated ringers iv infusion INTRAVENOUS X (ONE-STEP ONLY) CONTINUOUS PRN Objective PHYSICAL EXAM: 01/18/25 2328 01/19/25 0548 01/19/25 0819 01/19/25 1058 BP: 117/66 132/65 128/67 157/98 Pulse: 76 77 72 85 Resp: 16 16 16 15 Temp: 36.6 ?C (97.9 ?F) 36.7 ?C (98.1 ?F) 36.7 ?C (98.1 ?F) 36.6 ?C (97.9 ?F) TempSrc: Oral Oral Oral Temporal SpO2: 92% 96% 95% 93% Physical Exam Performed GENERAL: Alert, no distress, cooperative LUNGS: Lungs clear to auscultation CARDIAC: Normal S1 and S2; no rubs,no murmurs ABDOMEN: Abdomen soft, non-tender, +BS normal EXTREMITIES: Extremities normal, no deformities, edema NEURO:Sensation grossly intact, Cranial nerves II-XII intact PULSES: 2+ radial, 2+ carotid DATA: Diagnostic tests reviewed for today's visit: Most recent labs and imaging results. CBC, Coags, BMP, Mg, Phos Recent Labs 01/18/25 2232 WBC 9.27 HB 14.9 HCT 44.3 PLT 225 NA 136 K 4.1 CHLOR 98 CO2 24 BUN 14 CREAT 1.14 GLUC 183* CA 9.3 CSF AND Dilantin Liver Function, Amylase, AND Lipase Recent Labs 01/18/25 2232 TPROT 6.4 ALB 3.7* ALT 28 AST 31 ALKPHOS 103 TBILI 0.8 LIPASE 11* Assessment/Plan HOSPITAL COURSE: Lizzy Yee is a 79 year old male presented with past medical history of CAD s/p 4v CABG (2016), PAD w/ R Popliteal Occlusion s/p Angioplasty (2022), BHUPENDRA, HTN, HLD, Anxiety, T2DM, Obesity, Colonic Polyposis Syndrome s/p Subtotal colectomy who presented to [facility] with abdominal pain with N/V and inability to keep medications down with SBP > 190. CT A/P obtained showing choledocholithiasis and given prior abdominal surgeries at [facility] decision to transfer patient. #Choledocholithiasis Images not available in [facility] or Care Everywhere. CD is in chart Seen by GI going for ERCP today evaluated by general surgery appreciate #CAD s/p 4v CABG #PAD s/p Angioplasty #Hypertension #Hyperlipidemia Hold TEACHER VISUALLY IMPAIRED DAPT given pending surgical intervention. Most recent intervention in 2022. Continue TEACHER VISUALLY IMPAIRED Coreg, Lipitor; Hold HCTZ #T2DM Hold home oral antihyperglycemics. Start SS1 if glucose > 180. #BHUPENDRA CPAP HS #Anxiety Zoloft #History of Subtotal Colectomy Portions of this note including HPI, ROS, Assessment/plan and examination may been copied forward as to provide important historical information essential in contributing to medical decision making of today. Documentation has been reviewed and edited to support clinical decision making of today's encounter. Medication and Non-Pharmacologic VTE Prophylaxis/Anticoagulants 01/18/25 1900 activity - mobilize patient (pa,ms) VTE Prophylaxis: VTE prophylaxis appropriate SIGNATURE: Yani El MD PATIENT NAME: Lizzy Yee DATE: January 19, 2025 TIME: 11:41 AM [facility] 01-17-[address] [facility] Requests Transfer to [facility] 79 yo male with PMH of BHUPENDRA, HTN, HLP, CAD, anxiety, obesity, colonic polyposis syndrome s/p subtotal colectomy c/b ventral hernia, s/p repair presented to the ER for abdominal pain, nausea, non-bilious/non-bloody emesis x 2, and inability to hold down antihypertensives. BP in the 190s on arrival, improved spontaneously to 130s systolic without specific intervention. Exam otherwise with epigastric tenderness. Labs all relatively normal with normal BMP, WBC 8.6, Hb 15.2, glucose 193, alk phos 144, AST 21, ALT 39, lipase 13. CT abd/pelvis showed choledocholithiasis. Given his previous abdominal surgeries have been at [place] (Drs. Medina and Carlos), request is for transfer for both GI as well as Gen surg evaluation. Accepted to inpatient telemetry. Cami Sandhu MD 01/17/2025 4:26 AM [facility] Work Phone: 01-17-[address] [facility] Requests Transfer to [facility] 79 yo male with PMH of BHUPENDRA, HTN, HLP, CAD, anxiety, obesity, colonic polyposis syndrome s/p subtotal colectomy c/b ventral hernia, s/p repair presented to the ER for abdominal pain, nausea, non-bilious/non-bloody emesis x 2, and inability to hold down antihypertensives. BP in the 190s on arrival, improved spontaneously to 130s systolic without specific intervention. Exam otherwise with epigastric tenderness. Labs all relatively normal with normal BMP, WBC 8.6, Hb 15.2, glucose 193, alk phos 144, AST 21, ALT 39, lipase 13. CT abd/pelvis showed choledocholithiasis. Given his previous abdominal surgeries have been at [place] (Drs. Medina and Carlos), request is for transfer for both GI as well as Gen surg evaluation. Accepted to inpatient telemetry. Cami Sandhu MD 01/17/2025 4:26 AM documented in this encounter [facility] 01-06-2025 History of Present illness Narrative Images from [...] laser capsulotomy, they are to notify their assembler bonding promptly if they have a significant change [...] scrubs were recommended. documented in this encounter [facility] 01-05-2025 History of Present illness Narrative Patient: Lizzy [...] 30 MINUTES BY BREAKFAST, Disp: , Rfl: [id number]-Mamvstpc-Gltrsrifg 1-0.5-0.075 % solution, Administer 1 drop into [...] Insecurity: No Food Insecurity (07/02/2023) Received from [facility] Hunger Screening Within the past 12 [...] Partner Violence: Unknown (09/10/2023) Received from [facility] Fear of Current or [...] and negative PT pedal pulses NEURO: 5.07 Archer Haroon monofilament test diminished to digits and forefoot bilaterally 125Hz tuning fork diminished to 1st MPJ bilaterally ORTHO: Positive pain on palpation to toenails of the left 1,2,3,4,5 toes and right 1,2,3,4,5 toes ASSESSMENT 1. Diabetes mellitus due to underlying condition with diabetic polyneuropathy, unspecified whether care home insulin use (HCC) 2. Pain due to [...] Phillip Bingham DPM documented in this encounter [facility] 12-16-2024 Evaluation note Diagnosis Onset Date Resolution ASHD (arteriosclerotic heart disease) acute December 16, 2024 10:49am Familial polyposis acute December 162024 10:49am Hypercholesterolemia acute December 16, 2024 10:49am Obstructive sleep apnea acute M 2024 10:49am Primary hypertension acute December 16, 2024 10:49am Type 2 diabetes mellitus with diabetic peripheral angiopathy without gangrene acute December 16, 2024 10:49am 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 December 16, 2024 10:49am Type 2 diabetes mellitus with hyperglycemia acute December 16 10:49am ASHD (arteriosclerotic heart disease) acute January 26, 2025 11:45am Cholelithiasis with choledocholithiasis acute January 26, 11:45am Hypercholesterolemia acute January 26, 2025 11:45am Obstructive sleep apnea acute J 2024 11:45am Primary hypertension acute January 26, 2025 11:45am Type 2 diabetes mellitus with diabetic peripheral angiopathy without gangrene acute January 26, 2025 11:45am 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 January 26, 2025 11:45am Type 2 diabetes mellitus with hyperglycemia acute January 26 11:45am ASHD (arteriosclerotic heart disease) acute March 13, 2025 11:28am Hx of cholecystectomy 2024 acute Feb us2024 11:28am Hypercholesterolemia acute 2024 11:28am Obstructive sleep apnea acute A 2024 11:28am Primary hypertension acute 2024 11:28am Type 2 diabetes mellitus with diabetic peripheral angiopathy without gangrene acute March 13, 2025 11:28am 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 March 13, 2025 11:28am Type 2 diabetes mellitus with hyperglycemia acute March 13, 2025 11:28am [facility] Work Phone: 1(849) 714-258604-28-2025 Evaluation note* Diagnosis Onset Date Resolution Status Admit Date 2nd degree burn of multiple fingers of left hand not including thumb acute November 14, 2024 3:47pm Type 2 diabetes mellitus wit h hyperglycemia acute November 14, 2024 3:47pm Lymphedema of left lower extremity acute November 17, 2024 12 :41pm Primary osteoarthritis of le ft knee acute November 17, 2024 12 :41pm 2nd degree burn of multiple fingers of left hand not including thumb acute November 21, 2024 11 :30am Chronic kidney disease acute Ma y 2024 11:30am Chronic venous insufficiency of lower extremity acute November 21, 2024 11 :30am Type 2 diabetes mellitus wit h hyperglycemia acute November 21, 2024 11 :30am ASHD (arteriosclerotic heart disease) acute December 16, 2024 1 0:49am Elevated cholesterol acute December 16, 2024 10:49am Familial polyposis acute December 162024 10:49am Obstructive sleep apnea acute M ay 2024 10:49am Primary hypertension acute December 16, 2024 10:49am Type 2 diabetes mellitus wit h diabetic peripheral angiopathy without gangrene acute December 16, 2024 10:49am Type 2 diabetes mellitus wit h diabetic polyneuropathy acute November 10:49am Type 2 diabetes mellitus wit h hyperglycemia acute December 16, 2024 1 0:49am [facility] Work Phone: 1(550) 480-993904-28-2025 Evaluation note* Diagnosis Onset Date Resolution Status Admit Date 2nd degree burn of multiple fingers of left hand not including thumb acute November 14, 2024 3:47pm Type 2 diabetes mellitus wit h hyperglycemia acute November 14, 2024 3:47pm Lymphedema of left lower extremity a cute November 17, 2024 12:41pm Primary osteoarthritis of left knee acute November 17, 2024 12:41pm 2nd degree burn of multiple fingers of left hand not including thumb acute November 21, 2024 11:30am Chronic kidney disease acute Ma y 2024 11:30am Chronic venous insufficiency of lower extremity acute November 21, 2024 11:30am Type 2 diabetes mellitus wit h hyperglycemia acute November 21, 2024 11:30am ASHD (arteriosclerotic heart disease) acute December 16, 2024 10:49am Familial polyposis acute December 162024 10:49am Hypercholesterolemia acute December 16, 2024 10:49am Obstructive sleep apnea acute M ay 2024 10:49am Primary hypertension acute December 16, 2024 10:49am Type 2 diabetes mellitus wit h diabetic peripheral angiopathy without gangrene acute December 16, 2024 10:49am Type 2 diabetes mellitus wit h diabetic polyneuropathy acute November 10:49am Type 2 diabetes mellitus wit h hyperglycemia acute December 16, 2024 10:49am ASHD (arteriosclerotic heart disease) acute January 26, 2025 11:45am Cholelithiasis with choledocholithiasis acute January 26, 2 025 11:45am Hypercholesterolemia acute January 26, 2025 11:45am Obstructive sleep apnea acute J mando2024 11:45am Primary hypertension acute January 26, 2025 11:45am Type 2 diabetes mellitus wit h diabetic peripheral angiopathy without gangrene acute January 26, 2025 11:45am Type 2 diabetes mellitus wit h diabetic polyneuropathy acute January 11:45am Type 2 diabetes mellitus wit h hyperglycemia acute January 26, 2025 11:45am [facility] Work Phone: 1(433) 739-798404-10-2025 History of Present illness Narrative* Phillip Bingham, DPM - 10/27/2024 10:50 AM EDT Patient: [...] 30 MINUTES BY BREAKFAST, Disp: , Rfl: Lspjujpdoer-Hqyusaql-Jcfxvbusu 1-0.5-0.075 % solution, Administer 1 drop into [...] Insecurity: No Food Insecurity (07/02/2023) Received from [facility], [facility] Hunger Screening Within the past 12 [...] Partner Violence: Unknown (09/10/2023) Received from [facility], [facility] [place] Safety & Environment Fear [...] and negative PT pedal pulses NEURO: 5.07 Archer Haroon monofilament test diminished to digits and forefoot bilaterally 125Hz tuning fork diminished to 1st MPJ bilaterally ORTHO: Positive pain on palpation to toenails of the left 1,2,3,4,5 toes and right 1,2,3,4,5 toes ASSESSMENT 1. Diabetes mellitus due to underlying condition with diabetic polyneuropathy, unspecified whether care home insulin use ([facility]) 2. Pain due to onychomycosis of toenails [...] daily Phillip Bingham DPM documented in this encounterMercy Hospital St. [id number] History of Present illness Narrative* Jay Gonzalez MD - 10/20/2024 1:40 PM EDT [facility] - Follow Up Visit [...] Gonzalez MD 10/20/24, 2:03 PM General Surgery [facility] Medical Decision Making: Problems: Low: Stable chronic illness Risk: Minimal: Minimal risk from testing/treatment Medical Decision Making Level: 2 - Straightforward documented in this encounterUpper Valley Medical Center04-03-2025 NoteHNO ID: [id number] Author: JAY GONZALEZ MD Service: ? Author Type: Physician Type: Progress Notes Filed: 10/20/2024 14:04 Note Text: [facility] Health - Follow Up [...] Gonzalez MD 10/20/24, 2:03 PM General Surgery [facility] Medical Decision Making: Problems: Low: Stable chronic illness Risk: Minimal: Minimal risk from testing/treatment Medical Decision Making Level: [facility] - [facility] Evaluation note* Diagnosis Onset Date Resolution Status Admit Date ASHD (arteriosclerotic heart disease) acute September 14, 2 025 11:27am Elevated cholesterol acute Febr uary 2024 11:27am Familial polyposis acute Februa ry 2024 11:27am Obstructive sleep apnea acute F eb2024 11:27am Primary hypertension acute 2024 11:27am Screening [...] noneactive September 14, 2024 11:27am [facility] Work Phone: 1(308) 565-315202-26-2025 Evaluation note* Diagnosis Onset Date Resolution Status Admit Date ASHD (arteriosclerotic heart disease) acute September 14 11:27am Elevated cholesterol acute 2024 11:27am Familial polyposis acute 2024 11:27am Obstructive sleep apnea acute F [facility] 2024 11:27am Primary hypertension acute 2024 11:27am [...] knee acute November 17, 2024 12 :41pm [facility] Work Phone: 1(862) 383-283202-26-2025 Evaluation note* Diagnosis Onset Date Resolution Status Admit Date ASHD (arteriosclerotic heart disease) acute September 14 11:27am Elevated cholesterol acute 2024 11:27am Familial polyposis acute Februa 2024 11:27am Obstructive sleep apnea acute F ebruary 2024 11:27am Primary hypertension acute 2024 11:27am Screening PSA (prostate specific antigen) acute September 14, 2024 11:27am Type 2 diabetes mellitus wit h diabetic peripheral angiopathy without gangrene acute uary 2024 11:27am Type 2 diabetes mellitus wit h diabetic polyneuropathy acute September 14, 2024 11:27am Type 2 diabetes mellitus wit h hyperglycemia acute September 14, 2 025 11:27am Medicare annual wellness visit, subsequent noneactive [...] 11 :30am Left knee pain acute November 21, 2 025 11:30am Primary osteoarthritis of left knee acute November 21, 2024 11 :30am Type 2 diabetes mellitus wit h hyperglycemia acute November 21, 2024 11 :30am [facility] Work Phone: 1(561) 207-469202-05-2025 History of Present illness Narrative* Matthew Kearns, DO - 08/24/2024 3:00 PM EST Images [...] years ago. Pt saw Dr. Larsen at [facility] and they told he wendy needs a YAG in left eye (OS) as well as cataract extraction (CE) of right eye (OD) . Referred by Dr. Shine *Has taken Flomax in the past* No Latex allergies No Pacemakers or Defib Last edited by Matthew Kearns DO on 08/24/2024 3:51 PM. Current Outpatient Medications (Ophthalmic Agents) Medication Sig Dispense Refill Ptxadntytjp-Itvkkxwn-Pchggvewh 1-0.5-0.075 % solution Administer 1 drop into [...] paroxysmal positional vertigo) CAD (coronary artery disease) ([facility]) Colon polyp Depression ([facility]) DM polyneuropathy ([facility]) NARINDER (generalized anxiety disorder) ([facility]) HLD (hyperlipidemia) ([facility]) Hoarseness of voice HTN (hypertension) ([facility]) Lumbar spondylosis Mitral regurgitation OA (osteoarthritis) BHUPENDRA [...] @ 3:30 PM Additional Tests Keratometry K1 Colp K2 Colp Right 44.75 99 45.25 9 Left 44.50 [...] Normal Normal Refraction Wearing Rx Sphere Cylinder Colp Add Right +0.25 -1.50 105 +2.50 Left +1.00 -1.50 113 +2.50 Age: 1yr Type: progress Manifest Refraction Sphere Cylinder Colp Right +0.50 -1.00 095 Left +1.25 -1.00 090 Final Rx Sphere Cylinder Colp Dist VA Right +0.50 -1.00 095 20/40 [...] different lens options were explained including the xtb-sc-fomoae fees for any upgrades. Intraocular lens (IOL) [...] laser capsulotomy, they are to notify their assembler bonding promptly if they have a significant change in symptoms, such as flashes of light (photopsia), an increase in floaters, loss of visual field or decrease in visual acuity. documented in this encounterMercy Hospital St. [id number] History of Present illness Narrative* Phillip Bingham, CHIQUITAM - 08/11/2024 3:10 PM EST Patient: Lizzy [...] (coronary artery disease) (CMS/HCC) Colon polyp Depression ([facility]) DM polyneuropathy ([facility]) NARINDER (generalized anxiety disorder) (CMS/HCC) HLD (hyperlipidemia) [...] Insecurity: No Food Insecurity (07/02/2023) [facility] Hunger Screening Within the past 12 [...] Partner Violence: Unknown (09/10/2023) Received from [facility], [facility] Environment Fear of Current or [...] and negative PT pedal pulses NEURO: 5.07 Archer Haroon monofilament test diminished to digits and forefoot bilaterally 125Hz tuning fork diminished to 1st MPJ bilaterally ORTHO: Positive pain on palpation to nails 1 through 10 ASSESSMENT 1. Diabetes mellitus due to underlying condition with diabetic polyneuropathy, unspecified whether middle or intermediate school principal insulin use ([facility]) 2. Pain due to onychomycosis of toenails [...] daily Phillip Bingham DPM documented in this encounterMercy Hospital St. [id number] Evaluation note* Diagnosis Onset Date Resolution Status Admit Date Primary osteoarthritis of left knee acute July 28 9:07am ASHD (arteriosclerotic heart disease) acute September 14, 2 025 11:27am Elevated cholesterol acute 2024 11:27am [...] diabetes mellitus wit h hyperglycemia acute September 14, 2 025 11:27am Medicare annual wellness visit, subsequent noneactive September 14, 2024 11:27am [facility] Work Phone: [phone]) 893-407511-19-2024 History of Present illness Narrative* Joanna Lin, DO - 06/07/2024 12:30 PM EST Chief Complaint Patient presents with Sleep Apnea Subjective Lizzy Jorge Yee, 78 y.o., male is here for [...] right. He is supposed to go to [facility] and get measured. Pt states that he [...] was counseled on the risks of stroke, KS, and sudden with BHUPENDRA, along with the [...] instructions Return to clinic: documented in this encounterMercy Hospital St. [id number] History of Present illness Narrative* Phillip Bingham, CHIQUITAM - 06/02/2024 2:30 PM EST Patient: Lizzy [...] and has been using prescribed or recommended ojvw-ekk-ttwadys cream with positive improvement. Allergies: No Known Allergies Past Medical History: Past Medical History: Diagnosis Date Anxiety Arthritis BPH (benign prostatic hyperplasia) BPPV (benign paroxysmal positional vertigo) CAD (coronary artery disease) ([facility]) Colon polyp Depression ([facility]) DM polyneuropathy ([facility]) NARINDER (generalized anxiety disorder) ([facility]) HLD (hyperlipidemia) ([facility]) Hoarseness of voice HTN (hypertension) ([facility]) Lumbar spondylosis Mitral regurgitation OA (osteoarthritis) BHUPENDRA [...] Insecurity: No Food Insecurity (07/02/2023) [facility] Hunger Screening Within the past 12 [...] Partner Violence: Unknown (09/10/2023) Received from [facility], [facility] [place] [facility] [place] Fear [...] and negative PT pedal pulses NEURO: 5.07 Archer Haroon monofilament test diminished to digits and forefoot bilaterally 125Hz tuning fork diminished to 1st MPJ bilaterally ORTHO: Positive pain on palpation to nails 1 through 10 ASSESSMENT 1. Diabetes mellitus due to underlying condition with diabetic polyneuropathy, unspecified whether middle or intermediate school principal insulin use ([facility]) 2. Pain due to onychomycosis of toenails [...] daily Phillip Bingham DPM documented in this encounterMercy Hospital St. [id number] [facility] Cardiology Clinic Note Chief Complaint: Patient [...] history of Coronary artery disease, Diabetes mellitus ([facility]), Hypertension, PVD (peripheral vascular disease) ([facility]), and Sleep apnea. Surgical History [...] common femoral artery. Surgeon: Jyoti Mccurdy Primary Cooperative Education Director: None. Anesthesia: Local with 1% lidocaine and sedation. EBL: 10 cc Complications: None. 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 Procedure: Patient was brought to the angiogram suite. He was placed on the table in supine position. Left groin area was prepped and draped in the usual sterile fashion. Patient was give (more content not included)...[facility]04-10-2024 Miscellaneous Notes* Telephone Encounter - Efrain Zamarripa [...] Patient and or can be reached at [phone]. Thank you. Wendi Traore documented in this encounterUpper Valley Medical Center01-22-2024 Evaluation note* Encounter Date Diagnosis Assessment Notes Treatment Notes Treatment Clinical Notes Jul, Other Summary of Visi t: (A) Meal timing (B) DM2 nutrition education (C) Answered general, nutrition-related questions [facility] Other 11-28-2023 Evaluation note* Encounter Date Diagnosis Assessment Notes Treatment Notes Treatment Clinical Notes May, Type 2 diabetes mellitus with hyperglycemia, without long-term current use of insulin (ICD-10 - E11.65) [facility] Other 11-28-2023 Evaluation note* Encounter Date Diagnosis Assessment Notes Treatment Notes Treatment Clinical Notes May, Primary hypertension (ICD-10 - I10) [facility] Other 11-21-2023 Evaluation note* Encounter Date Diagnosis Assessment Notes Treatment Notes Treatment Clinical Notes May, Type 2 diabetes mellitus with hyperglycemia, without long-term current use of insulin (ICD-10 - E11.65) [facility] Other 11-17-2023 Evaluation note* Encounter Date Diagnosis [...] use, the patient reduces the risk for KS, CVA, HTN, cardiac dysrhythmias and sudden cardiac [...] index [BMI] 39.0-39.9, adult (ICD-10 - Z68.39) [facility] Other 11-08-2023 Evaluation note* Encounter Date Diagnosis Assessment Notes Treatment Notes Treatment Clinical Notes May, Primary hypertension (ICD-10 - I10) [facility] Other 10-29-2023 Evaluation note* Encounter Date Diagnosis Assessment Notes Treatment Notes Treatment Clinical Notes Apr, Type 2 diabetes mellitus with hyperglycemia, without long-term current use of insulin (ICD-10 - E11.65) Apr, Primary hypertension (ICD-10 - I10) [facility] Other 10-19-2023 Evaluation note* Encounter Date Diagnosis Assessment Notes Treatment Notes Treatment Clinical Notes Apr, Type 2 diabetes mellitus with hyperglycemia, without long-term current use of insulin (ICD-10 - E11.65) [facility] Other 10-18-2023 Evaluation note* Encounter Date Diagnosis Assessment Notes Treatment Notes Treatment Clinical Notes Apr, ASHD (arteriosclerotic heart disease) (ICD-10 - I25.10) This patient is stable without activity related CP, dyspnea or lightheadedness. They are instructed to continue exercise and AHA diet plan. Continue secondary prevention measures. Access Director suggesting SGLT-2 for dual benefit w/ ASHD [...] contributed. Monitor for now Apr, Atherosclerosis of [place] artery of right lower extremity with rest pain (ICD-10 - I70.221) Walk daily until painful. Inspect feet daily for cuts. Continue secondary prevention measures. Scheduled post op JAMIR [facility] Other 10-18-2023 Evaluation note* Encounter Date Diagnosis Assessment Notes Treatment Notes Treatment Clinical Notes Apr, Type 2 diabetes mellitus with hyperglycemia, without long-term current use of insulin (ICD-10 - E11.65) [facility] Other 08-22-2023 Evaluation note* Encounter Date Diagnosis [...] use, the patient reduces the risk for KS, CVA, HTN, cardiac dysrhythmias and sudden cardiac [...] [BMI ] 39.0-39.9, adult (ICD-10 - Z68.39) [facility] Other 05-31-2023 NoteOPERATIVE NOTE OPERATION DATE: 11/29/2022 [...] in three years. CC: Juancarlos Cuenca D.O.[facility] [id number] NotePROCEDURE: XR HIP LT 2 3V WO PELVIS HISTORY: Pain of left hip joint COMPARISON: None. FINDINGS: BONES:No fracture, acute abnormality, or significant arthropathy. SOFT TISSUES:No visible soft tissue swelling. EFFUSION:None visible. OTHER: Negative. IMPRESSION: 1. No acute bone abnormality. 2. Mild degenerative joint disease. Electronically authenticated by: GABY PADILLA Date: 2022-11-28 13:08[facility]04-11-2023 NoteCONSULTATION CONSULTATION DATE: 10/28/2022 TO: Juancarlos [...] our patients to inform us about any uqxx-vqf-mcwqwlh medications or herbal remedies/nutritional supplements/alternative remedies. 2. [...] options with their primary care provider.[facility] CenterVffvlzul80-84-0638 History of Present illness Narrative* Jay Gonzalez MD - 10/16/2022 2:38 PM EDT [facility] - Follow Up [...] Temperature: No Drains: No documented in this encounterUpper Valley Medical Center03-25-2023 Miscellaneous Notes* Allied Health - [...] 11, 2022 10:29 AM documented in this encounterUpper Valley Medical Center03-21-2023 Miscellaneous Notes* Telephone Encounter - Efrain Zamarripa RN - 10/07/2022 10:42 AM EDT Returned call, went to [place] [employer]. Left message that the CT has been [...] or so at a non facility. PH: [phone] documented in this encounterUpper Valley Medical Center02-24-2023 Evaluation note* Encounter Date Diagnosis Assessment Notes Treatment Notes Treatment Clinical Notes Aug, Left carotid artery stenosis (ICD-10 - I65.22) US: right <50%, left 50-69% - 10/2020 US: right <50%, left 80-90% - 08/2022 [facility] Other 02-20-2023 Evaluation note* Encounter Date Diagnosis [...] use, the patient reduces the risk for KS, CVA, HTN, cardiac dysrhythmias and sudden cardiac [...] reviewed and amended by provider signed below. [facility] Other 01-12-2023 NoteCONSULTATION PROCEDURE DATE: 09/18/2022 PREOPERATIVE [...] be followed up in the office.[facility] CenterGnmwiyro52-55-1234 NoteCONSULTATION CONSULTATION DATE: 07/31/2022 HISTORY OF PRESENT [...] the patient agrees with this plan.[facility] 05-29-2022 NoteCONSULTATION CONSULTATION DATE: 05/29/2022 [...] followed up in the clinic thereafter.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 A refill for Baclofen 10 mg [...] osteoarthritis. The patient is in agreement.[facility] CenterYecavzso47-25-5198 Note CONSULTATION CONSULTATION DATE: 03/25/2022 CHIEF COMPLAINT: 1. Low back pain. 2. Left knee pain. HISTORY OF PRESENT ILLNESS: This is a very pleasant, 76-year-old male, who is known to the pain practice remote. The patient had a right total knee replacement at [facility]. The patient is doing well with [...] understands and would like to proceed.[facility] 01-27-2022 Nurse Note* Sarah Osman [...] Temperature: No Drains: No documented in this encounterUpper Valley Medical Center07-11-2022 History of Present illness Narrative* [...] needed. Jus Medina MD documented in this encounterUpper Valley Medical Center03-25-2022 Miscellaneous Notes* Telephone Encounter - Shan Parham - 10/11/2021 3:09 PM EDTSummary: IRB#: [id number] Research Outreach IRB# [id number], Qualitative Interviews in Postoperative Gastrointestinal Dysfunction (POGD). PI: Shilpa Storm MD, SANJIV, FASA. Outcomes Research Department. Anesthesia Cut Off. This is a research study note. Patient [...] there for his review. Shan Parham Research Cooperative Education Director Anesthesiology Cut Off Outcomes Research Department documented in this encounterUpper Valley Medical Center03-24-2022 History of Present illness Narrative* Jay Gonzalez MD - 10/10/2021 1:37 PM EDT [facility] - Follow Up [...] the care that he received while at [place]. Objective: AAOx3, NAD Non-labored respirations on room [...] Surgery [facility] documented in this encounterUpper Valley Medical Center03-24-2022 History of Present illness Narrative* Jus Medina MD - 10/10/2021 11:00 AM EDT HPI Lizzy Yee is a 75 year old male here today for postop Open subtotal colectomy with stapled sfpd-fn-ginp ileosigmoid anastomosis ventral herniorrhaphy with transversus abdominus [...] months Jus Medina MD documented in this encounterUpper Valley Medical Center03-24-2022 Nurse Note* Elena Ferrell MA - 10/10/2021 10:45 AM EDT What is the reason for your visit today? Follow up Who is your referring physician? Self Are you having poor oral intake? NO Have you had unintentional weight loss of 15 lbs/7 Kg in the last 3-6 months? NO Bowels: regular Wound: none Temperature: No Drains: No documented in this encounterUpper Valley Medical Center03-08-2022 History of Past illness Narrative* Problem Noted Date Resolved Date 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 documented as of this encounter (statuses as of 10/10/2021) [address]08-2022 History of Past illness Narrative* Problem Noted Date Resolved Date 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 documented as of this encounter (statuses as of 10/10/2021) [address]08-2022 History of Past illness Narrative* Problem Noted Date Resolved Date 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 documented as of this encounter (statuses as of 10/11/2021) [address]08-2022 History of Past illness Narrative* Problem Noted Date Resolved Date 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 documented as of this encounter (statuses as of 02/05/2022) [address]08-2022 History of Past illness Narrative* Problem Noted Date Resolved Date 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 documented as of this encounter (statuses as of 10/07/2022) [address]08-2022 History of Past illness Narrative* Problem Noted Date Resolved Date 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 documented as of this encounter (statuses as of 10/12/2022) [facility] of Past illness Narrative* Problem Noted Date Resolved Date 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 documented as of this encounter (statuses as of 10/12/2022) [facility] History of Past illness Narrative* Problem Noted Date Resolved Date 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 documented as of this encounter (statuses as of 10/16/2022) [facility]03-[facility] History of Past illness Narrative* Problem Noted Date Diagnosed Date Resolved Date 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 documented as of this encounter (statuses as of 10/28/2023) [facility]06-12-2021 NoteMR#: [id number] [facility] Pt. Name: Lizzy Yee Admitted: 12/26/2020 Discharged: 12/29/2020 Date of : 1945 Physician: Ty Avalos M.D. DISCHARGE SUMMARY [facility] Pt. Name: Kurt Yee Admitted: 12/26/20 [...] Cano MD Date Trans: 12/29/2020 08:18 P/ [id number] cc: Juancarlos Cuenca D.O. [address] [place] [address] A [facility] [id number] HospitalEvaluation + Plan note No data available for this section [facility] Diagnosis Ventral incisional hernia- Primary documented in this encounter [facility] note* Diagnosis Polyposis of colon- Primary Benign neoplasm of colon documented in this encounter [facility] note* Diagnosis Polyposis of colon- Primary Benign neoplasm of colon Incisional hernia, without obstruction or gangrene Incisional hernia without mention of obstruction or gangrene documented in this encounter [facility] noteNo [employer] Other Evaluation note* Diagnosis Ventral incisional hernia documented in this encounter [facility] note* Diagnosis Ventral incisional hernia- Primary documented in this encounter [facility] note* Diagnosis Onset Date Resolution Status ASHD (arteriosclerotic heart disease) acute Elevated cholesterol acute NARINDER (generalized anxiety disorder) acute Obesity acute Obstructive sleep apnea acut e Primary hypertension acute [id number] acute [id number] acute ASHD (arteriosclerotic heart disease) acute Elevated cholesterol acute Obstructive sleep apnea acut e Primary hypertension acute Type 2 diabetes mellitus wit h diabetic peripheral angiopathy without gangrene acute 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 Type 2 diabetes mellitus with hyperglycemia acute [facility] Work Phone: Evaluation note* Diagnosis Onset Date Resolution Status ASHD (arteriosclerotic heart disease) acute Elevated cholesterol acute NARINDER (generalized anxiety disorder) acute Obesity acute Obstructive sleep apnea acut e Primary hypertension acute [id number] acute ASHD (arteriosclerotic heart disease) acute Elevated cholesterol acute Obstructive sleep apnea acut e Primary hypertension acute Type 2 diabetes mellitus wit h diabetic peripheral angiopathy without gangrene acute 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 Type 2 diabetes mellitus with hyperglycemia acute Primary osteoarthritis of left knee acute [facility] Work Phone: Evaluation note* Diagnosis BHUPENDRA (obstructive sleep apnea)- Primary Obstructive sleep apnea (adult) (pediatric) Hyposomnia Insomnia, unspecified Snoring Other dyspnea and respiratory abnormality Carpal tunnel syndrome, bilateral Carpal tunnel syndrome Paresthesias Disturbance of skin sensation Ulnar neuropathy, unspecified laterality documented in this encounter [facility] HealthcareEvaluation note* Diagnosis Diabetes mellitus due to underlying condition with diabetic polyneuropathy, unspecified whether middle or intermediate school principal insulin use (CMS/[facility])- Primary Pain due to onychomycosis of toenails of both feet Xerosis cutis Other specified disease of sebaceous glands documented in this encounter [facility] HealthcareEvaluation note* Diagnosis Xerosis cutis- Primary Other specified disease of sebaceous glands Diabetes mellitus due to underlying condition with diabetic polyneuropathy, unspecified whether care home insulin use (CMS/HCC) Onychomycosis Dermatophytosis of nail Toe pain, bilateral documented in this encounter [facility] HealthcareEvaluation note* Diagnosis Diabetes mellitus due to underlying condition with diabetic polyneuropathy, unspecified whether care home insulin use (CMS/HCC)- Primary Pain due to onychomycosis of toenails of both feet Xerosis cutis Other specified disease of sebaceous glands documented in this encounter [facility] HealthcareEvaluation note* Diagnosis Age-related nuclear cataract of right eye- Primary Left posterior capsular opacification Unspecified after-cataract documented in this encounter [facility] HealthcareEvaluation note* Diagnosis Preop examination- Primary Preoperative examination, unspecified Polyp of colon, unspecified part of colon, unspecified type Abdominal hernia without obstruction and without gangrene, recurrence not specified, unspecified hernia type ASHD (arteriosclerotic heart disease) Coronary atherosclerosis of unspecified type of vessel, [place] or graft Sleep apnea, unspecified type Hypertension, unspecified type Hyperlipidemia, unspecified hyperlipidemia type Type 2 diabetes mellitus without complication, without long-term current use of insulin ([facility]) Antiplatelet or antithrombotic long-term use Encounter for long-term (current) use of antiplatelets/antithrombotics Obesity (BMI 30-39.9) Obesity, unspecified S/P repair of ventral hernia- Primary Other postprocedural status [facility]* Diagnosis BHUPENDRA (obstructive sleep apnea)- Primary Obstructive sleep apnea (adult) (pediatric) Paresthesias Disturbance of skin sensation Carpal tunnel syndrome, bilateral Carpal tunnel syndrome Ulnar neuropathy, unspecified laterality [facility] Diagnosis Diabetes mellitus due to underlying condition with diabetic polyneuropathy, unspecified whether care home insulin use (HCC)- Primary Pain due to onychomycosis of toenails of both feet documented in this encounter [facility] HealthcareEvaluation note* Diagnosis Right posterior capsular opacification- Primary Unspecified after-cataract Epiretinal membrane (ERM) of left eye Dry eyes Unspecified tear film insufficiency Blepharitis of upper and lower eyelids of both eyes, unspecified type documented in this encounter [facility] HealthcareEvaluation note* Diagnosis Preop examination- Primary Preoperative examination, unspecified Polyp of colon, unspecified part of colon, unspecified type Abdominal hernia without obstruction and without gangrene, recurrence not specified, unspecified hernia type ASHD (arteriosclerotic heart disease) Coronary atherosclerosis of unspecified type of vessel, [place] or graft Sleep apnea, unspecified type Hypertension, unspecified type Hyperlipidemia, unspecified hyperlipidemia type Type 2 diabetes mellitus without complication, without long-term current use of insulin (HCC) Antiplatelet or antithrombotic long-term use Encounter for long-term (current) use of antiplatelets/antithrombotics Obesity (BMI 30-39.9) Obesity, unspecified Encounter for removal of biliary stent- Primary [facility]* Diagnosis Preop examination- Primary Preoperative examination, unspecified Polyp of colon, unspecified part of colon, unspecified type Abdominal hernia without obstruction and without gangrene, recurrence not specified, unspecified hernia type ASHD (arteriosclerotic heart disease) Coronary atherosclerosis of unspecified type of vessel, [place] or graft Sleep apnea, unspecified type Hypertension, unspecified type Hyperlipidemia, unspecified hyperlipidemia type Type 2 diabetes mellitus without complication, without long-term current use of insulin (HCC) Antiplatelet or antithrombotic long-term use Encounter for long-term (current) use of antiplatelets/antithrombotics Obesity (BMI 30-39.9) Obesity, unspecified Choledocholithiasis- Primary Calculus of bile duct without mention of cholecystitis or obstruction Choledocholithiasis Calculus of bile duct without mention of cholecystitis or obstruction documented in this encounter [facility]* Diagnosis Preop examination- Primary Preoperative examination, unspecified Polyp of colon, unspecified part of colon, unspecified type Abdominal hernia without obstruction and without gangrene, recurrence not specified, unspecified hernia type ASHD (arteriosclerotic heart disease) Coronary atherosclerosis of unspecified type of vessel, [place] or graft Sleep apnea, unspecified type Hypertension, unspecified type Hyperlipidemia, unspecified hyperlipidemia type Type 2 diabetes mellitus without complication, without long-term current use of insulin (HCC) Antiplatelet or antithrombotic long-term use Encounter for long-term (current) use of antiplatelets/antithrombotics Obesity (BMI 30-39.9) Obesity, unspecified Pre-op evaluation- Primary Preoperative examination, unspecified Sleep apnea, unspecified type ASHD (arteriosclerotic heart disease) Coronary atherosclerosis of unspecified type of vessel, [place] or graft S/P CABG x 4 Postsurgical aortocoronary bypass status PAD (peripheral artery disease) Peripheral vascular disease, unspecified Hypertension, unspecified type Hyperlipidemia, unspecified hyperlipidemia type Type 2 diabetes mellitus without complication, without long-term current use of insulin (HCC) Morbid obesity (HCC) Morbid obesity History of partial colectomy Choledocholithiasis Calculus of bile duct without mention of cholecystitis or obstruction * Assessment & Plan Note - Elisa Amin APRN.CNP - 02/10/2025 2:27 PM EDT Associated Problem(s): Morbid obesity (HCC) Assessment: Current BMI 35. * Assessment & Plan Note - Elisa Amin APRN.CNP - 02/10/2025 2:27 PM EDT Associated Problem(s): Type 2 diabetes mellitus, without long-term current use of insulin (HCC) Assessment: Most recent A1c 8.3 (10/2024) reports that fasting glucose recently has been 90's to 100's. Takes daily glipizide. Within acceptable range per anesthesia guidelines and aware glucose mustbe below 200 morning of surgery. Aware of all pre-op instructions and will follow up A1c with PCP as soon as possible. * Assessment & Plan Note - Elisa Amin APRN.CNP - 02/10/2025 2:25 PM EDT Associated Problem(s): History of partial colectomy Assessment: hx of several years ago with anastomosis. stable. Denies any recent concerns or complications. * Assessment & Plan Note - Elisa Amin APRN.CNP - 02/10/2025 2:25 PM EDT Associated Problem(s): Sleep apnea Assessment: CPAP compliant * Assessment & Plan Note - Elisa Amin APRN.CNP - 02/10/2025 2:25 PM EDT Associated Problem(s): S/P CABG x 4 * Assessment & Plan Note - Elisa Amin APRN.CNP - 02/10/2025 2:25 PM EDT Associated Problem(s): PAD (peripheral artery disease) Assessment: managed and monitored by vascular Dr. Robledo. Stable. LASHELL 02/02/25. Denies any recent concerns or complications. * Assessment & Plan Note - Elisa Amin APRN.CNP - 02/10/2025 2:23 PM EDT Associated Problem(s): HTN (hypertension) Assessment: stable on current medication regimen, advised to continue antihypertensives prior to surgery. Last 14 BP Last 14 Encounter BP Readings: Date: BP: 02/10/2025 107/63 02/09/2025 131/70 01/19/2025 119/77 01/17/2025 164/77 10/20/2024 143/78 10/15/2023 127/65 10/16/2022 143/66 01/27/2022 131/56 10/10/2021 137/65 10/10/2021 137/65 09/24/2021 108/70 09/13/2021 104/76 05/24/2021 94/60 05/21/2021 153/69 * Assessment & Plan Note - Elisa Amin APRN.CNP - 02/10/2025 2:22 PM EDT Associated Problem(s): HLD (hyperlipidemia) Assessment: treated with statin * Assessment & Plan Note - Elisa Amin APRN.CNP - 02/10/2025 2:22 PM EDT Associated Problem(s): ASHD (arteriosclerotic heart disease) Assessment: previous cardiac stents, none current since CABG 2016. Managed and monitored by cardiology Dr. Richardson. [facility] 04/2024. Notes of non ischemic stress test from 2020. Denies any recent changes in cardiac health, CP, Shortness of Breath. Will obtain most recent EKG and ECHO from that office.Also had inpatient cardiac clearance completed 01/18/25 at [place] prior to ERCP stent placement with no contraindications. Takes plavix and ASA, has already stopped plavix per surgeons instructions (okay in the past for other procedures per patient with no complications), continue ASA prior to surgery. [facility] Preop examination- Primary Preoperative examination, unspecified Polyp of colon, unspecified part of colon, unspecified type Abdominal hernia without obstruction and without gangrene, recurrence not specified, unspecified hernia type ASHD (arteriosclerotic heart disease) Coronary atherosclerosis of unspecified type of vessel, [place] or graft Sleep apnea, unspecified type Hypertension, unspecified type Hyperlipidemia, unspecified hyperlipidemia type Type 2 diabetes mellitus without complication, without long-term current use of insulin (HCC) Antiplatelet or antithrombotic long-term use Encounter for long-term (current) use of antiplatelets/antithrombotics Obesity (BMI 30-39.9) Obesity, unspecified Pre-op evaluation- Primary Preoperative examination, unspecified Sleep apnea, unspecified type ASHD (arteriosclerotic heart disease) Coronary atherosclerosis of unspecified type of vessel, [place] or graft S/P CABG x 4 Postsurgical aortocoronary bypass status PAD (peripheral artery disease) Peripheral vascular disease, unspecified Hypertension, unspecified type Hyperlipidemia, unspecified hyperlipidemia type Type 2 diabetes mellitus without complication, without long-term current use of insulin (HCC) Morbid obesity (HCC) Morbid obesity History of partial colectomy Encounter for removal of biliary stent documented in this encounter [facility] note* Diagnosis Preop examination- Primary Preoperative examination, unspecified Polyp of colon, unspecified part of colon, unspecified type Abdominal hernia without obstruction and without gangrene, recurrence not specified, unspecified hernia type ASHD (arteriosclerotic heart disease) Coronary atherosclerosis of unspecified type of vessel, [place] or graft Sleep apnea, unspecified type Hypertension, unspecified type Hyperlipidemia, unspecified hyperlipidemia type Type 2 diabetes mellitus without complication, without long-term current use of insulin (HCC) Antiplatelet or antithrombotic long-term use Encounter for long-term (current) use of antiplatelets/antithrombotics Obesity (BMI 30-39.9) Obesity, unspecified Pre-op evaluation- Primary Preoperative examination, unspecified Sleep apnea, unspecified type ASHD (arteriosclerotic heart disease) Coronary atherosclerosis of unspecified type of vessel, [place] or graft S/P CABG x 4 Postsurgical aortocoronary bypass status PAD (peripheral artery disease) Peripheral vascular disease, unspecified Hypertension, unspecified type Hyperlipidemia, unspecified hyperlipidemia type Type 2 diabetes mellitus without complication, without long-term current use of insulin (HCC) Morbid obesity (HCC) Morbid obesity History of partial colectomy S/P laparoscopic cholecystectomy- Primary Other postprocedural status documented in this encounter [facility] note* Diagnosis Diabetes mellitus due to underlying condition with diabetic polyneuropathy, unspecified whether middle or intermediate school principal insulin use (HCC)- Primary Pain due to onychomycosis of toenails of both feet Xerosis cutis Other specified disease of sebaceous glands documented in this encounter [facility] HealthcareHistory general Narrative - Reported* Type Description [...] RIGHT HEMICOLECTOMY 2003 Hospitalization History SEE SURGICAL [facility] Other [facility] general Narrative - Reported* Type Description [...] Colonoscopy 12/2022 Hospitalization History SEE SURGICAL HX [facility] Other History general Narrative - Reported* Type [...] anaya 03/2023 Hospitalization History SEE SURGICAL HX [facility] Other History of Present illness Narrative* Phillip [...] and has been using prescribed or recommended [id number] cream with positive improvement. Allergies: No Known Allergies Past Medical History: Past Medical History: Diagnosis Date Anxiety Arthritis BPH (benign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 Cuenca MD [address] [place] [address] PCP - General Internal Medicine 10/01/23 Joanna Lin DO [address] [place] [address] Referring Physician Neurology 10/20/23 Mary Kate Shine MD [address] [place] [address] Referring Physician Optometry 08/24/24 Manager In Training Relationship Specialty Start Date End Date Juancarlos Cuenca MD PCP - General Internal Medicine 10/01/23 Joanna Lin DO [address] [place] [address] Referring Physician Neurology 10/20/23 Mary Kate Shine MD [address] [place] [address] Referring Physician Optometry 08/24/24 Manager In Training Relationship Specialty Start Date End Date Juancarlos Cuenca MD PCP - General Internal Medicine 10/01/23 Joanna Lin DO [address] [place] [address] Referring Physician Neurology 10/20/23 Mary Kate Shine MD [address] [place] [address] Referring Physician Optometry 08/24/24 Team Status: Inactive Member Role Status Dates Juancarlos Cuenca DO Primary Care Provide r, Attending Provider Active Start: November 21, 2024 End: November 21, 2024 Team Status: Inactive Member Role Status Dates Juancarlos Cuenca DO Primary Care Provide r, Attending Provider Active Start: December 16, 2024 End: December 16, 2024 Manager In Training Relationship Specialty Start Date End Date Juancarlos Cuenca DO PCP - General Internal Medicine 10/01/23 Joanna Lin DO [address] [place] [address] Referring Physician Neurology 10/20/23 Mary Kate Shine MD [address] [place] [address] Referring Physician Optometry 08/24/24 Manager In Training Relationship Specialty Start Date End Date Juancarlos Cuenca DO [address] [place] [facility] [place] [address] PCP - General Internal Medicine 10/01/23 Joanna Lin DO [address] [place] [address] Referring Physician Neurology 10/20/23 Mary Kate Shine MD [address] [place] [address] Referring Physician Optometry 08/24/24 Manager In Training Relationship Specialty Start Date End Date Juancarlos Cuenca DO [address] [place] [facility] [place] [address] PCP - General Internal Medicine 10/01/23 Joanna Lin DO [address] [place] [address] Referring Physician Neurology 10/20/23 Mary Kate Shine MD [address] [place] [address] Referring Physician Optometry 08/24/24 Manager In Training Relationship Specialty Start Date End Date Juancarlos Cuenca DO [address] [place] [facility] [place] [address] PCP - General Internal Medicine 10/01/23 Joanna Lin DO [address] [place] [address] Referring Physician Neurology 10/20/23 Mary Kate Shine MD [address] [place] [address] Referring Physician Optometry 08/24/24 Manager In Training Relationship Specialty Start Date End Date Juancarlos Cuenca DO [address] [facility] [place] [address] PCP - General Internal Medicine 10/01/23 Joanna Lin DO [address] [place] [address] Referring Physician Neurology 10/20/23 Mary Kate Shine MD [address] [facility] [place] [address] Referring Physician Optometry 08/24/24 Manager In Training Relationship Specialty Start Date End Date Juancarlos Cuenca DO PCP - General Internal Medicine 10/23/14 Pedro Richardson MD Cardiology 09/13/21 Manager In Training Relationship Specialty Start Date End Date Juancarlos Cuenca DO PCP - General Internal Medicine 10/23/14 ePdro Richardson MD Cardiology 09/13/21 Manager In Training Relationship Specialty Start Date End Date Juancarlos Cuenca DO PCP - General Internal Medicine 10/23/14 Pedro Richardson MD Cardiology 09/13/21 Manager In Training Relationship Specialty Start Date End Date Juancarlos Cuenca DO PCP - General Internal Medicine 10/23/14 Pedro Richardson MD Cardiology 09/13/21 Manager In Training Relationship Specialty Start Date End Date Juancarlos Cuenca DO PCP - General Internal Medicine 10/23/14 Pedro Richardson MD Cardiology 09/13/21 Manager In Training Relationship Specialty Start Date End Date Juancarlos Cuenca DO PCP - General Internal Medicine 10/23/14 Pedro Richardson MD Cardiology 09/13/21 Manager In Training Relationship Specialty Start Date End Date Juancarlos Cuenca DO PCP - General Internal Medicine 10/23/14 Pedro Richardson MD Cardiology 09/13/21 Team Status: Active Member Role Status Dates Juancarlos Cuenca DO Primary Care Provider Active Start: February 16, 2025 Jay Gonzalez MD Attending Provider Active Sta rt: February 16, 2025 Team Status: Active Member Role Status Dates Juancarlos Cuenca DO Primary Care Provider Active Start: February 28, 2025 Yas Porter CMA Attending Provider Active Start: February 28, 2025 Team Status: Inactive Member Role Status Dates Juancarlos Cuenca DO Primary Care Provider Active Start: March 13, 2025 End: March 13, 2025 Juancarlos Cuenca DO Attending Provider Active Sta rt: March 13, 2025 End: March 13, 2025 Manager In Training Relationship Specialty Start Date End Date Juancarlos Cuenca DO PCP - General Internal Medicine 10/23/14 Pedro Richardson MD Cardiology 09/13/21 Manager In Training Relationship Specialty Start Date End Date Juancarlos CuencaDO [address] [place] [address] PCP - General Internal Medicine 10/01/23 Joanna Lin DO [address] [place] [address] Referring Physician Neurology 10/20/23 Mary Kate Shine MD [address] [place] [address] Referring Physician Optometry 08/24/24 Manager In Training Relationship Specialty Start Date End Date Juancarlos Cuenca DO [address] [place] [address] PCP - General Internal Medicine 10/01/23 Joanna Lin DO [address] [place] [address] Referring Physician Neurology 10/20/23 Mary Kate Shine MD [address] [place] [address] Referring Physician Optometry 08/24/24 Goals (unrecognized section [...] BE BASED ON THE PRIMARY CLINICAL RECORDS. [employer] [facility]. provides no warranty or guarantee of the accuracy or completeness of information in this document.
[2025-04-26] MEDS: REGADENOSON 0.4 MG/5 ML SYRINGE IV (09:03)
--- NOTE | 2025-04-26 09:14 | PC.NURSE ---
Nursing Note Cardiac Stress Test Reviewed: Medication, allergies and patient history reviewed. Stress Test: [x ] Patient tolerated stress test well. [ ] Patient unable to tolerate walking on treadmill. Switched to Lexiscan stress test. [x ] No chest pain noted per patient [ ] Chest pain that resolved prior to leaving stress lab. [x ] No dyspnea noted. [ ] Dyspnea that resolved prior to leaving stress lab. [x ] Patient left stress lab asymptomatic and hemodynamically stable. [ ] Patient taken to the Emergency Room due to non-resolving symptoms following stress test. [ ] Patient achieved target heart rate. [ ] Patient unable to achieve target heart rate. [ ] Aminophylline administered as reversal agent to Lexiscan (Regadenoson). [ ] Nitro administered. Nursing Comments:
--- NOTE | 2025-04-28 18:12 | PM.STRESS ---
Stress Test Stress Test Allergies Allergy/AdvReac Type Severity Reaction Status Date / Time No Known Drug Allergies Allergy Verified 01/16/25 23:17 Requesting physician: MARINO MOE Procedure: Lexiscan nuclear stress test General Information: Reason for Stress Test: [Coronary artery disease] Cardiac History and Risk Factors: [Coronary artery disease, hypertension, hyperlipidemia, diabetes mellitus] Resting 12 - Lead Electrocardiogram: Resting twelve-lead EKG showed sinus bradycardia, heart rate 53 bpm, no significant T or ST changes. Resting blood pressure 133/62 mmHg. Lexiscan 0.4 mg injected intravenously and the patient was monitored for few minutes. Peak heart rate 63 bpm represents 45% of age-predicted maximum heart rate. Peak blood pressure 133/62 mmHg. The patient did not have any symptoms throughout the test. EKG throughout the test did not show any significant T or ST changes or arrhythmias. Stress Test: Protocol: [Lexiscan] Exercise Capacity: [Undetermined] Blood Pressure Response: [Resting normal blood pressure with normal response] Rhythm: [No arrhythmia] ST - Response: [No ST changes] Patient Response: [No chest pain] Interpretation: Negative Lexiscan EKG stress test for ischemia The nuclear myocardial perfusion stress images is reported separately Medina Monsalve MD, FACC
== END 2025-04-26 07:38 | disposition home or self-care (01) ==
LOC: NM 07:37
PROVIDERS: PCP Internal Medicine; Visit Provider Nurse Practitioner Family
DX: I25.10 Atherosclerotic heart disease of native coronary artery without angina pectoris (principal); I65.23 Occlusion and stenosis of bilateral carotid arteries
CPT/HCPCS: 78452; 93017; 93880; A9500; J2785